=== PATIENT | male | born 1965 | race African-American/Black ===

== ENCOUNTER 2019-06-03 00:10 | Inpatient (IN) | payer OTHER ==
[2019-06-03 00:20] VITALS: BMI 27.2
[2019-06-03] MEDS ORDERED: SODIUM CHLORIDE 1,000 ML IV ONE (00:25)
[2019-06-03] MEDS ORDERED: HYDROmorphone HCL CARPU-JECT 1 MG/1 ML DISP.SYRIN IVPUSH ONE ×2 (00:25→02:45)
[2019-06-03] MEDS ORDERED: FAMOTIDINE 20 MG/50 ML IVPB 20 MG/50 ML MG IVPB ONE ×2 (00:34→00:41)
--- NOTE | 2019-06-03 00:40 | PDOC ---
History of Present Illness - General Chief Complaint: Pain, Acute Stated Complaint: VOMITING,ABDOMINAL PAIN Time Seen by Provider: 06/03/19 00:15 History Source: Patient Exam Limitations: No Limitations - History of Present Illness Initial Comments: 06/03/19 02:59 Is a 53-year-old male who comes in complaining of abdominal pain and vomiting. Patient has a history of gastroparesis secondary to his diabetes. Patient denies any fevers, chills. Patient is complaining of abdominal pain secondary to his gastroparesis and vomiting. 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 Patient denies any fevers or chills. Cough or congestion. Chest pain or shortness of breath. Allergies: as per nursing notes Past Medical History: none Social history: Lives with family. No smoking. No alcohol. No illicit drugs. Surgical history: None General: No fevers or chills, no weakness, no weight loss HEENT: No change in vision. No sore throat,. No ear pain CardioVascular: no chest discomfort. No shortness of breath Respiratory:No cough, or wheezing. Gastrointestinal: no nausea, vomiting, diarrhea or constipation, No rectal bleeding Genitourinary: No dysuria, hematuria, or frequency Musculoskeletal: No joint or muscle pain or swelling Neurologic: No headache, vertigo, dizziness or loss of consciousness Psychiatric: nor depression Skin: No rashes or easy bruising Endocrine: no increased thirst or abnormal weight change Allergic: no skin or latex allergy All other systems reviewed and normal Exam: General: Well-nourished well-developed individual, moderate distress HEENT: Throat: Normal, tonsils normal, no erythema or exudate Neck: Supple, no meningeal signs, no lymphadenopathy Eyes::Pupils equal reactive and round, extraocular motion intact Chest: Nontender to palpation Cardiac: S1-S2 normal, regular rate and rhythm, no murmurs rubs or gallops Respiratory: Lungs clear to auscultation bilateral Abdomen: Soft, nondistended, normal bowel sounds, there is mild tenderness on palpation diffusely Extremities: Warm, dry, no cyanosis, clubbing, or edema Skin: No rashes Neuro: Alert and oriented x3, CN II - XII intact, nonfocal exam with normal strength, normal sensation, normal reflexes, normal gait, Psych: Normal mood and affect Assessment and plan: This is a 53-year-old male who has intractable vomiting secondary to his gastroparesis. Patient is received Zofran and IV fluids as well as Dilaudid and still continues to have vomiting and feel miserable. Will admit patient to an inpatient bed. Past History - Past Medical History Allergies/Adverse Reactions: Allergies Allergy/AdvReac Type Severity Reaction Status Date / Time No Known Allergies Allergy Verified 06/03/19 00:13 Home Medications: Ambulatory Orders NK [No Known Home Medication] 06/03/19 COPD: No GI Disorders: Yes (GASTROPARESIS) - Psycho Social/Smoking Cessation Hx Smoking History: Never smoked Have you smoked in the past 12 months: No Information on smoking cessation initiated: No Hx Alcohol Use: No Drug/Substance Use Hx: No *Physical Exam - Vital Signs Last Vital Signs Temp Pulse Resp BP Pulse Ox 98.9 F 106 H 18 154/102 H 100 06/03/19 00:15 06/03/19 00:15 06/03/19 00:15 06/03/19 00:15 06/03/19 00:15 ED Treatment Course - LABORATORY CBC & Chemistry Diagram: 06/03/19 01:40 06/03/19 01:40 Discharge - Discharge Information Problems reviewed: Yes Clinical Impression/Diagnosis: Intractable vomiting, Diabetic gastroparesis Condition: Stable - Admission Yes - Follow up/Referral - Patient Discharge Instructions - Post Discharge Activity
[2019-06-03] MEDS ORDERED: HYDROmorphone HCL CARPU-JECT 1 MG/1 ML DISP.SYRIN ONE ×2 (00:41→02:42)
[2019-06-03 02:26] LABS: BASO % 0.2 % (0-2.0); EOS % 0.3 % (0-4.5); HEMATOCRIT 30.2 % (35.4-49); HEMOGLOBIN 9.9 GM/dL (11.7-16.9); LYMPH % 16.2 % (8-40); MCH 25.3 pg (25.7-33.7); MCHC 32.7 g/dl (32.0-35.9); MEAN CELL VOLUME 77.2 fl (80-96); MEAN PLT VOLUME 8.4 fl (7.5-11.1); MONO % 12.1 % (3.8-10.2); NEUT % 71.2 % (42.8-82.8); PLATELET COUNT 274 K/MM3 (134-434); RBC 3.91 M/mm3 (4.00-5.60); RDW 15.4 % (11.9-15.9); WHITE BLOOD COUNT 13.1 K/mm3 (4.0-10.0)
[2019-06-03 02:50] LABS: BILIRUBIN,TOTAL 0.6 mg/dL (0.2-1); CALCIUM 8.7 mg/dL (8.5-10.1); CREATININE 1.3 mg/dL (0.55-1.3); POTASSIUM 4.2 mmol/L (3.5-5.1); TOT PROT 7.5 g/dl (6.4-8.2)
[2019-06-03] MEDS ORDERED: ONDANSETRON 4 MG/2 ML VIAL IVPB ONE (03:16)
[2019-06-03] MEDS ORDERED: ONDANSETRON 4 MG/2 ML VIAL ONE (03:17)
[2019-06-03] MEDS ORDERED: ONDANSETRON 4 MG/2 ML VIAL IVPUSH PRN (03:19)
[2019-06-03] MEDS ORDERED: SODIUM CHLORIDE 1,000 ML IV SCH (03:30)
[2019-06-03] MEDS ORDERED: ACETAMINOPHEN 1000 MG/100 ML VIAL (NON FORMULARY) IVPB ONE (05:18)
[2019-06-03] MEDS: HEPARIN NA (PORCINE) 5,000 UNITS/ML 1ML VIAL SQ SCH ×4 (05:52→21:43)
[2019-06-03] MEDS: INSULIN SLIDING SCALE (NOVOLOG) 1 VIAL SQ SCH ×4 (07:00→21:39)
--- NOTE | 2019-06-03 08:14 | HP ---
"CHIEF COMPLAINT: Abdominal pain and vomiting PCP: Current treating physician is Dr. Ana Laura Castro at [facility] HISTORY OF PRESENT ILLNESS: 53 year-old male with a PMH significant for Type II NIDDM, gastroparesis, and osteomyelitis s/p left BKA 01/2019. Patient presented to the ED with a complaint of abdominal pain and vomiting x 24 hours secondary to chronic gastroparesis. His last episode of gastroparesis was around the time of his amputation surgery. Patient denies fever, sweats, chills. He denies pain to his LLE/BKA site. ER course was notable for: (1) WBC 13.1k, afebrile (2) BP 173/91 Recent Travel: No PAST MEDICAL HISTORY: Type II NIDDM Osteomyelitis PAST SURGICAL HISTORY: Left BKA Social History: has a daughter that lives in [place]; patient lives in [place] Smoking: no Alcohol: no Drugs: no Allergies No Known Allergies Allergy (Verified 06/03/19 00:13) Family history: non-contributory HOME MEDICATIONS: Home Medications Medication Instructions Recorded NK [No Known Home Medication] 06/03/19 REVIEW OF SYSTEMS CONSTITUTIONAL: Absent: fever, chills, diaphoresis, generalized weakness, malaise, loss of appetite, weight change HEENT: Absent: rhinorrhea, nasal congestion, throat pain, throat swelling, difficulty swallowing, mouth swelling, ear pain, eye pain, visual changes CARDIOVASCULAR: Absent: chest pain, syncope, palpitations, irregular heart rate, lightheadedness , peripheral edema RESPIRATORY: Absent: cough, shortness of breath, dyspnea with exertion, orthopnea, wheezing, stridor, hemoptysis GASTROINTESTINAL: +abdominal pain, vomiting Absent: abdominal pain, abdominal distension, nausea, vomiting, diarrhea, constipation, melena, hematochezia GENITOURINARY: Absent: dysuria, frequency, urgency, hesitancy, hematuria, flank pain, genital pain MUSCULOSKELETAL: Absent: myalgia, arthralgia, joint swelling, back pain, neck pain SKIN: Absent: rash, itching, pallor HEMATOLOGIC/IMMUNOLOGIC: Absent: easy bleeding, easy bruising, lymphadenopathy, frequent infections ENDOCRINE: Absent: unexplained weight gain, unexplained weight loss, heat intolerance, cold intolerance NEUROLOGIC: Absent: headache, focal weakness or paresthesias, dizziness, unsteady gait, seizure, mental status changes, bladder or bowel incontinence PSYCHIATRIC: Absent: anxiety, depression, suicidal or homicidal ideation, hallucinations. PHYSICAL EXAMINATION Vital Signs - 24 hr 06/03/19 06/03/19 06/03/19 00:15 02:45 04:11 Temperature 98.9 F 97.8 F Pulse Rate 106 H 94 H Pulse Rate [ 90 Right] Respiratory 18 18 Rate Blood Pressure 154/102 H 181/99 H Blood Pressure 176/101 H [Left Arm] O2 Sat by Pulse 100 98 95 Oximetry (%) GENERAL: Awake, alert, and fully oriented. Spitting into emesis basin. HEAD: Normal with no signs of trauma. EYES: Pupils equal, round and reactive to light, extraocular movements intact, sclera anicteric, conjunctiva clear. LUNGS: Breath sounds equal, clear to auscultation bilaterally. No wheezes, and no crackles. No accessory muscle use. HEART: Regular rate and rhythm, normal S1 and S2 ABDOMEN: Would not allow exam UPPER EXTREMITIES: 2+ pulses, warm, well-perfused. No cyanosis. No clubbing. No peripheral edema. LOWER EXTREMITIES: left BKA NEUROLOGICAL: Cranial nerves II-XII intact. Normal speech. Laboratory Results - last 24 hr 06/03/19 06/03/19 06/03/19 01:40 01:40 01:40 WBC 13.1 H RBC 3.91 L Hgb 9.9 L Hct 30.2 L MCV 77.2 L MCH 25.3 L MCHC 32.7 RDW 15.4 Plt Count 274 MPV 8.4 Absolute Neuts (auto) 9.3 H Neutrophils % 71.2 Lymphocytes % 16.2 Monocytes % 12.1 H Eosinophils % 0.3 Basophils % 0.2 Nucleated RBC % 0 Sodium 137 Potassium 4.2 Chloride 104 Carbon Dioxide 23 Anion Gap 10 BUN 22.0 H Creatinine 1.3 Est GFR (CKD-EPI)AfAm 72.20 Est GFR (CKD-EPI)NonAf 62.29 POC Glucometer Random Glucose 186 H Lactic Acid 1.1 Calcium 8.7 Total Bilirubin 0.6 AST 16 ALT 24 Alkaline Phosphatase 157 H Total Protein 7.5 Albumin 3.0 L Lipase 06/03/19 06/03/19 01:40 05:54 WBC RBC Hgb Hct MCV MCH MCHC RDW Plt Count MPV Absolute Neuts (auto) Neutrophils % Lymphocytes % Monocytes % Eosinophils % Basophils % Nucleated RBC % Sodium Potassium Chloride Carbon Dioxide Anion Gap BUN Creatinine Est GFR (CKD-EPI)AfAm Est GFR (CKD-EPI)NonAf POC Glucometer 207 Random Glucose Lactic Acid Calcium Total Bilirubin AST ALT Alkaline Phosphatase Total Protein Albumin Lipase 24 L ASSESSMENT/PLAN: 53 year-old male with a PMH significant for Type II NIDDM, gastroparesis, and osteomyelitis s/p left BKA 01/2019. Admitted for abdominal pain and vomiting. Type II NIDDM Gastroparesis --patient provides incomplete history, reportedly diabetic for 4 years, does not take meds regularly, cannot give the name of any doctor or provider who has regularly treated him for his diabetes --NPO --IV fluids --Novolog sliding scale coverage --Protonix IV --IV Tyelenol for pain --CTAP: no acute abdominal pathology --patient immediately and repeatedly asked for dilaudid IVP as the only thing that helps him when he has episodes of gastroparesis; distressed at being told he will not be receiving dilaudid for his symptoms Urinary retention --CT showed overdistended bladder, 800cc's --US done, post-void residual 450 cc's, prostate 33mL --discussed with patient, he is voiding, has had 3 bowel movements, has no sense of urgency, fullness --outpatient followup Elevated blood pressure --start lisinopril 10mg daily FEN Fluids: NS @ 125mL/hr Electrolytes: replete as indicated Nutrition: full liquid diabetic DVT prophylaxis: subq heparin Dispo: continues to require inpatient care. Full code. ISTOP The Drug Utilization Report below displays all of the controlled substance prescriptions, if any, that your patient has filled in the last twelve months. The information displayed on this report is compiled from pharmacy submissions to the Department, and accurately reflects the information as submitted by the pharmacies. This report was requested by: Michelle Leslie | Reference #: [id number] Others' Prescriptions Patient Name: Daniele Laird Date: 1965 Address: [address] [place] [address] [place] [address] Sex: Male Rx Written Rx Dispensed Drug Quantity Days Supply Prescriber Name 04/16/2019 04/23/2019 clonazepam 0.5 mg tablet 30 30 SaqiJuliana 04/03/2019 04/03/2019 clonazepam 0.5 mg tablet 20 20 Juliana Rivas 03/08/2019 03/12/2019 lorazepam 1 mg tablet 3 3 Massimo Walker MD Patient Name: Daniele Laird Date: 1965 Address: [address] [place] [address] [place] [address] Sex: Male Rx Written Rx Dispensed Drug Quantity Days Supply Prescriber Name 07/09/2018 07/09/2018 hydromorphone 2 mg tablet 30 5 Miah Calixto 07/09/2018 07/09/2018 hydromorphone 4 mg tablet 30 5 Miah Calixto Visit type - Emergency Visit Emergency Visit: Yes ED Registration Date: 06/03/19 Care time: The patient presented to the Emergency Department on the above date and was hospitalized for further evaluation of their emergent condition. - New Patient This patient is new to me today: Yes Date on this admission: 06/04/19 - Critical Care Critical Care patient: No"
[2019-06-03 08:53] LABS: CALCIUM 8.5 mg/dl (8.5-10); CREATININE 1.1 mg/dl (0.55-1.3); MAGNESIUM 1.6 mg/dL (1.8-2.4); POTASSIUM 4.4 mmol/L (3.5-5.1)
[2019-06-03] MEDS ORDERED: MAGNESIUM SULF 50% (8.12 MEQ/2 ML-1 GM VIAL) IVPB ONE (09:39)
--- NOTE | 2019-06-03 09:42 | EKG ---
Test Reason : Blood Pressure : / mmHG Vent. Rate : 090 BPM Atrial Rate : 090 BPM P-R Int : 206 ms QRS Dur : 092 ms QT Int : 360 ms P-R-T Axes : 059 021 067 degrees QTc Int : 440 ms NORMAL SINUS RHYTHM POSSIBLE LEFT ATRIAL ENLARGEMENT BORDERLINE ECG NO PREVIOUS ECGS AVAILABLE Confirmed by Emmett Vallejo MD ([id number]) on 06/03/2019 9:41:51 AM Referred By: STEVEN DURAN Confirmed By:Emmett Vallejo MD
[2019-06-03] MEDS ORDERED: MAGNESIUM SULFATE IN WATER 2 GM/50 ML IVPB IVPB ONE (10:00)
[2019-06-03] MEDS: SODIUM CHLORIDE 1,000 ML IV SCH (11:15)
[2019-06-03] MEDS: ACETAMINOPHEN 1000 MG/100 ML VIAL (NON FORMULARY) IVPB SCH ×2 (11:45→18:11)
[2019-06-03] MEDS: PANTOPRAZOLE SODIUM 40 MG VIAL IVPUSH SCH (12:47)
[2019-06-03] MEDS: LISINOPRIL 10 MG TABLET (FP) PO SCH ×2 (12:47→13:01)
[2019-06-03] MEDS ORDERED: METOPROLOL TARTRATE 5 MG/5 ML VIAL IVPUSH ONE ×2 (13:15→15:00)
[2019-06-03] MEDS ORDERED: SODIUM CHLORIDE 1,000 ML IV STA (14:53)
[2019-06-03 16:35] LABS: BASO % 0.1 % (0-2.0); HEMATOCRIT 26.9 % (35.4-49); LYMPH % 11.9 % (8-40); MCH 26.5 pg (25.7-33.7); MCHC 33.5 g/dl (32.0-35.9); MEAN PLT VOLUME 8.7 fl (7.5-11.1); MONO % 7.9 % (3.8-10.2); NEUT % 80.1 % (42.8-82.8); PLATELET COUNT 221 K/MM3 (134-434); RDW 14.3 % (11.9-15.9); WHITE BLOOD COUNT 11.2 K/mm3 (4.0-10.8)
[2019-06-03 16:45] LABS: CALCIUM 7.9 mg/dl (8.5-10); CREATININE 1.3 mg/dl (0.55-1.3); MAGNESIUM 2.2 mg/dL (1.8-2.4); POTASSIUM 4.1 mmol/L (3.5-5.1)
[2019-06-03] MEDS ORDERED: METOCLOPRAMIDE HCL INJECTION 10 MG/2 ML VIAL IVPUSH ONE (21:59)
[2019-06-03] MEDS ORDERED: HYDROmorphone HCL CARPU-JECT 1 MG/1 ML DISP.SYRIN IVPB ONE (22:10)
[2019-06-04] MEDS: ACETAMINOPHEN 1000 MG/100 ML VIAL (NON FORMULARY) IVPB SCH ×2 (00:04→05:46)
[2019-06-04] MEDS: HEPARIN NA (PORCINE) 5,000 UNITS/ML 1ML VIAL SQ SCH ×2 (06:28→13:40)
[2019-06-04] MEDS: INSULIN SLIDING SCALE (NOVOLOG) 1 VIAL SQ SCH ×2 (07:25→10:38)
[2019-06-04 10:03] VITALS: BP 173/91; PULSE 102; TEMP 98.6
[2019-06-04] MEDS: LISINOPRIL 10 MG TABLET (FP) PO SCH (10:05)
[2019-06-04] MEDS: PANTOPRAZOLE SODIUM 40 MG VIAL IVPUSH SCH (10:05)
[2019-06-04] MEDS: SODIUM CHLORIDE 1,000 ML IV SCH (10:41)
--- NOTE | 2019-06-04 12:35 | DS ---
Physical Exam: SUBJECTIVE: Patient seen and examined. Reviewed all test, imaging, and lab results with the patient in the presence of licensed practical nurse clinic nurse Maribeth Rios. Patient continues to be distressed at not getting dilaudid. He states he wants " dilaudid IV push every 3 hours", "the push is better because I get instantaneous relief." Patient states he is being discriminated against because of his race, he is being treated as a druggie, a step child, a basket case. OBJECTIVE: Vital Signs Period Temp Pulse Resp BP Sys/Christianson Pulse Ox Last 24 Hr 97.8 F-98.6 F 74-102 17-18 109-182/60-100 94-99 PHYSICAL EXAM GENERAL: The patient is awake, alert, and fully oriented. LUNGS: Breath sounds equal, clear to auscultation bilaterally, no wheezes, no crackles, no accessory muscle use. HEART: Regular rate and rhythm, S1, S2 . EXTREMITIES: left BKA NEUROLOGICAL: Cranial nerves II through XII grossly intact. Normal speech, Laboratory Results - last 24 hr 06/03/19 06/03/19 06/03/19 15:05 15:05 15:05 WBC 11.2 H RBC 3.40 L Hgb 9.0 L Hct 26.9 L MCV 79.0 L MCH 26.5 MCHC 33.5 RDW 14.3 Plt Count 221 MPV 8.7 Absolute Neuts (auto) 9.0 Neutrophils % 80.1 Lymphocytes % 11.9 Monocytes % 7.9 Eosinophils % 0.0 Basophils % 0.1 Sodium 133 L Potassium 4.1 Chloride 103 Carbon Dioxide 24 Anion Gap 6 L BUN 24.0 H Creatinine 1.3 Est GFR (CKD-EPI)AfAm 72.20 Est GFR (CKD-EPI)NonAf 62.29 POC Glucometer Random Glucose 193 H Lactic Acid 1.0 Calcium 7.9 L Magnesium 2.2 06/03/19 06/04/19 21:09 06:14 WBC RBC Hgb Hct MCV MCH MCHC RDW Plt Count MPV Absolute Neuts (auto) Neutrophils % Lymphocytes % Monocytes % Eosinophils % Basophils % Sodium Potassium Chloride Carbon Dioxide Anion Gap BUN Creatinine Est GFR (CKD-EPI)AfAm Est GFR (CKD-EPI)NonAf POC Glucometer 161 130 Random Glucose Lactic Acid Calcium Magnesium HOSPITAL COURSE: Date of Admission:06/03/19 Date of Discharge: 06/04/19 Pre hospital course 53 year-old male with a PMH significant for Type II NIDDM, gastroparesis, and osteomyelitis s/p left BKA 01/2019. Patient presented to the ED with a complaint of abdominal pain and vomiting x 24 hours secondary to chronic gastroparesis. His last episode of gastroparesis was around the time of his amputation surgery. ER course (1) WBC 13.1k, afebrile (2) BP 173/91 Subsequent hospital course 53 year-old male with a PMH significant for Type II NIDDM, gastroparesis, and osteomyelitis s/p left BKA 01/2019. Admitted for abdominal pain and vomiting. Type II NIDDM Gastroparesis --patient provided incomplete history, reportedly diabetic for 4 years, does not take meds regularly, cannot give the name of any doctor or provider who has regularly treated him for his diabetes --patient was observed clenching his abdominal muscles and spitting into basins, no actual vomiting observed; he remained afebrile, his mild leukocytosis trended down --CTAP: no acute abdominal pathology --patient was kept NPO, given IV fluids, Zofran PRN, and IV Tylenol PRN; he was ordered a liquid diabetic diet on his first night and he refused to eat; he refused to take all PO meds --Novolog sliding scale coverage ordered, patient refused on those occasions when coverage was indicated --througout hospital stay patient repeatedly demanded dilaudid IVP as the only thing that helps him when he has episodes of gastroparesis; distressed at being told he will not be receiving dilaudid Urinary retention --CT showed overdistended bladder, 800cc's --US done, post-void residual 450 cc's, prostate 33mL --voiding freely, no sense of urgency, fullness --outpatient followup Elevated blood pressure --ordered lisinopril 10mg daily, patient refused Minutes to complete discharge: 35 Discharge Summary Problems reviewed: Yes Reason For Visit: INTRACTABLE VOMITING, DIABETIC GASTROPARESIS Current Active Problems Diabetic gastroparesis (Acute) Intractable vomiting (Acute) Condition: Stable - Instructions Referrals: Ana Laura Castro Dr. [Other] Disposition: HOME - Home Medications Comprehensive Discharge Medication List: Ambulatory Orders NK [No Known Home Medication] 06/03/19 This patient is new to me today: No Emergency Visit: Yes ED Registration Date: 06/03/19 Care time: The patient presented to the Emergency Department on the above date and was hospitalized for further evaluation of their emergent condition. Critical Care patient: No - Discharge Referral Referred to [facility] No
== END 2019-06-04 15:54 | disposition home or self-care (01) | DRG 74 ==
LOC: FER 00:10 → FM/S 03:16
PROVIDERS: ADMIT Internal Medicine; ATTEND Nurse Practitioner Acute Care
DX: E11.43 Type 2 diabetes mellitus with diabetic autonomic (poly)neuropathy (principal); R33.9 Retention of urine, unspecified; D72.829 Elevated white blood cell count, unspecified; I10 Essential (primary) hypertension; K31.84 Gastroparesis; R11.10 Vomiting, unspecified
CPT/HCPCS: 36415; 71045-TC-FY; 74019-TC-FY; 74177-TC; 76775-TC; 76856-TC; 80048; 80053; 82962; 83605; 83690; 83735; 85025; 93005; 99285-25; J0131; J1644; J7030; Q9967

== ENCOUNTER 2019-11-06 11:44 | Inpatient (IN) | payer MEDICARE, OTHER ==
[2019-11-06 11:56] VITALS: BMI 26.2
--- NOTE | 2019-11-06 13:37 | PDOC ---
History of Present Illness - General Chief Complaint: Pain, Acute Stated Complaint: LEG PAIN/VOMITING - History of Present Illness Initial Comments: Pt is a 54yo M with a PMH of NIDDM, gastroparesis, s/p R BKA, who presents with diffuse pain and vomiting. States that pain and vomiting began yesterday. States that today he has had 6 episodes of bloody, nonbilious forceful vomiting. Has not had anything to eat or drink since yesterday when he drank [employer] aloe vera water and threw that back up. Reports diffuse pain that is similar, but sharper than the pain from previous ER visits. Reports that he is usually given reglan and dilaudid for these symptoms. Reports increased weakness and abdominal pain. Reports normal bowel movements. Denies any fevers/chills, chest pain, sore throat, rhinorrhea, cough, SOB, diarrhea/constipation, dysuria. Denies sick contacts, recent travel. PCP: Chan/Román PMH: see above PSHx: see above Meds: metformin, reglan All: NKDA social: denies tobacco use, etoh use, illicit drug use Past History - Medical History Allergies/Adverse Reactions: Allergies Allergy/AdvReac Type Severity Reaction Status Date / Time No Known Allergies Allergy Verified 11/06/19 11:52 Home Medications: Ambulatory Orders Metformin HCl [Glucophage] 500 mg PO BID 07/02/19 Metoclopramide HCl [Reglan] 10 mg PO ASDIR 07/02/19 COPD: No Diabetes: Yes GI Disorders: Yes (GASTROPARESIS) Other medical history: "osteomyelitis" - Psycho-Social/Smoking History Smoking History: Unknown if ever smoked Have you smoked in the past 12 months: No Review of Systems - Review of Systems Comments:: CONSTITUTIONAL:reports generalized weakness; denies fever, chills, diaphoresis HEENT:denies rhinorrhea, nasal congestion, sore throat, ear pain, eye pain, visual Changes CARDIOVASCULAR:denies chest pain, palpitations, lightheadedness RESPIRATORY:denies cough, shortness of breath, wheezing GASTROINTESTINAL: reports abdominal pain, nausea, vomiting; denies diarrhea, constipation, melena, hematochezia GENITOURINARY:denies dysuria, frequency, urgency, hesitancy, hematuria, flank pain, MUSCULOSKELETAL:reports diffuse pain HEMATOLOGIC/IMMUNOLOGIC:denies easy bleeding, easy bruising ENDOCRINE: denies unexplained weight gain, unexplained weight loss NEUROLOGIC:denies headache, loss of consciousness, focal weakness or paresthesias, dizziness, bladder or bowel incontinence *Physical Exam - Vital Signs Last Vital Signs Temp Pulse Resp BP Pulse Ox 99.4 F 109 H 20 182/106 H 100 11/06/19 11:53 11/06/19 11:53 11/06/19 11:53 11/06/19 11:53 11/06/19 11:53 - Physical Exam General: awake, alert, oriented, in no acute distress, well developed, well nourished Head: normocephalic, atraumatic Eyes: PERRL, EOMI, anicteric sclera, conjunctiva clear ENT: hearing grossly normal, oropharynx clear without exudates. No nasal congestion Moist mucous membranes Lung: equal breath sounds b/l, CTA b/l, no crackles, wheezes; no distress, speaks full sentences Heart: RRR, normal S1, S2, no murmurs, rubs, gallops Abdomen: soft, tender to palpation in all quadrants, normoactive bowel sounds, no guarding, rebound, masses Extremities: R BKA, no edema, no erythema or tenderness, DP/PT pulses 2+ Neuro: CN2-12 grossly intact, moves all extremities, normal speech, sensation intact ED Treatment Course - LABORATORY CBC & Chemistry Diagram: 11/06/19 13:50 11/06/19 13:50 Medical Decision Making - Medical Decision Making Pt is a 54yo M with a PMH DM, gastroparesis, R BKA who presents with diffuse pain and nausea/vomiting. Vital Signs Period Temp Pulse Resp BP Sys/Christianson Pulse Ox Last 24 Hr 99.4 F 109 20 182/106 100 DDx: Plan: labs, IV fluids, pain control Pt is repeatedly requesting IV stick, Reglan, and Dilaudid Ordered Reglan, Ofirmev, IV fluids Labs: leukocytosis, anemia, LIZA, hyperchloremia, lactic acidosis Laboratory Tests 11/06/19 11/06/19 11/06/19 13:50 13:50 13:50 WBC 10.4 H RBC 3.76 L Hgb 9.2 L Hct 28.8 L MCV 76.4 L MCH 24.5 L MCHC 32.1 RDW 19.0 H Plt Count 342 D MPV 8.5 Absolute Neuts (auto) 8.1 H Neutrophils % 78.2 Lymphocytes % 13.8 Monocytes % 6.4 Eosinophils % 1.2 D Basophils % 0.4 Nucleated RBC % 0 PT with INR 12.10 INR 1.03 PTT (Actin FS) 34.6 Sodium 139 Potassium 4.9 Chloride 108 H Carbon Dioxide 22 Anion Gap 9 BUN 14.0 Creatinine 1.7 H Est GFR (CKD-EPI)AfAm 51.84 Est GFR (CKD-EPI)NonAf 44.72 Random Glucose 152 H Lactic Acid Calcium 9.2 Magnesium 2.0 Total Bilirubin 0.5 AST 32 ALT 24 Alkaline Phosphatase 134 H Total Protein 7.8 Albumin 3.2 L 11/06/19 14:15 WBC RBC Hgb Hct MCV MCH MCHC RDW Plt Count MPV Absolute Neuts (auto) Neutrophils % Lymphocytes % Monocytes % Eosinophils % Basophils % Nucleated RBC % PT with INR INR PTT (Actin FS) Sodium Potassium Chloride Carbon Dioxide Anion Gap BUN Creatinine Est GFR (CKD-EPI)AfAm Est GFR (CKD-EPI)NonAf Random Glucose Lactic Acid 2.4 H* Calcium Magnesium Total Bilirubin AST ALT Alkaline Phosphatase Total Protein Albumin Pt told attending that he sees Dr. Shanon Haines. I called and spoke with Dr. Barahona who has known him for 9 years who states that he has frequent pain episodes, which were originally attributed to gastroparesis, but she mentioned that his A1C has been within normal values. She is attempting to work him up for porphyria, however, testing must be done when patient is in pain, for which he goes to emergency rooms instead of to her outpatient clinic. She has been unable to collect those labs due to this. Requested that we order serum/urine PBG or porphyrin. Pt continues to be in intractable pain and nausea. Has repeated episodes brownish emesis. Disposition Admit Discharge - Discharge Information Problems reviewed: Yes Clinical Impression/Diagnosis: Intractable vomiting Qualifiers: Vomiting type: unspecified Nausea presence: with nausea Qualified Code(s): R11.2 - Nausea with vomiting, unspecified - Admission Yes - Follow up/Referral - Patient Discharge Instructions - Post Discharge Activity
[2019-11-06] MEDS ORDERED: ACETAMINOPHEN 1000 MG/100 ML VIAL (NON FORMULARY) IVPB ONE (13:49)
[2019-11-06] MEDS ORDERED: SODIUM CHLORIDE 0.9% 500 ML INFUS.BAG IV ONE ×2 (13:51→15:19)
[2019-11-06] MEDS ORDERED: METOCLOPRAMIDE HCL INJECTION 10 MG/2 ML VIAL IVPUSH ONE (13:51)
[2019-11-06] MEDS ORDERED: METOCLOPRAMIDE HCL INJECTION 10 MG/2 ML VIAL ONE ×2 (13:58→18:59)
[2019-11-06] MEDS ORDERED: ACETAMINOPHEN INJECTION 100 ML IVPB ONE (13:59)
[2019-11-06 14:16] LABS: BASO % 0.4 % (0-2.0); EOS % 1.2 % (0-4.5); HEMATOCRIT 28.8 % (35.4-49); HEMOGLOBIN 9.2 GM/dL (11.7-16.9); LYMPH % 13.8 % (8-40); MCH 24.5 pg (25.7-33.7); MCHC 32.1 g/dl (32.0-35.9); MEAN CELL VOLUME 76.4 fl (80-96); MEAN PLT VOLUME 8.5 fl (7.5-11.1); MONO % 6.4 % (3.8-10.2); NEUT % 78.2 % (42.8-82.8); PLATELET COUNT 342 K/MM3 (134-434); RBC 3.76 M/mm3 (4.00-5.60); WHITE BLOOD COUNT 10.4 K/mm3 (4.0-10.0)
[2019-11-06 14:27] LABS: INR 1.03 (0.83-1.09); PROTHROMBIN TIME (PATIENT) 12.1 SEC (9.7-13.0)
[2019-11-06 14:29] LABS: ACTIVATED PTT 34.6 SECONDS (25.2-36.5)
[2019-11-06 14:43] LABS: ALBUMIN 3.2 g/dl (3.4-5.0); BILIRUBIN,TOTAL 0.5 mg/dL (0.2-1); CALCIUM 9.2 mg/dL (8.5-10.1); CREATININE 1.7 mg/dL (0.55-1.3); POTASSIUM 4.9 mmol/L (3.5-5.1); TOT PROT 7.8 g/dl (6.4-8.2)
[2019-11-06] MEDS ORDERED: HYDROmorphone HCL CARPU-JECT 2 MG/1 ML DISP.SYRIN IVPB ONE (15:07)
[2019-11-06] MEDS ORDERED: HYDROmorphone HCl 2 MG/ML VIAL ONE ×2 (15:14→18:39)
--- NOTE | 2019-11-06 16:43 | PN ---
Teaching Attending Note Name of Resident: Adam Carpenter ATTENDING PHYSICIAN STATEMENT I saw and evaluated the patient. I reviewed the resident's note and discussed the case with the resident. I agree with the resident's findings and plan as documented. HPI 54-year-old male with past medical history of odo-scxuedu-giifibbwa diabetes mellitus diabetes, gastroparesis, status post right BKA, peripheral vascular disease, presents with diffuse pain and vomiting. Patient reports symptoms began yesterday and overnight had 6 episodes of vomiting which included some blood. Patient has been unable to eat or drink anything since last night. Patient also reports that he has left lower extremity pain from "osteomyelitis" but is uncertain as to where he has osteomyelitis and is not currently being treated with IV antibiotics. Patient denies fevers, chills, chest pain, cough, shortness of breath, diarrhea. In the ED, vitals significant for temperature of 99.4, pulse 109, blood pressure 182/106. Labs significant for white count of 10.4 with 78% neutrophils microcytic anemia hemoglobin 9.2, creatinine 1.7, lactic acid 2.4. Patient admitted to medicine at the time of my exam patient is very fatigued and cannot give much history. Left foot is swollen and tender. Patient admitted to medicine for intractable nausea vomiting, LIZA OBJECTIVE Last Vital Signs Temp Pulse Resp BP Pulse Ox 98.5 F 103 H 22 H 190/98 H 98 11/06/19 16:39 11/06/19 16:39 11/06/19 16:39 11/06/19 16:39 11/06/19 16:39 PE: per resident note Labs/Imaging: reviewed ASSESSMENT AND PLAN 54-year-old male with past medical history of [id number] diabetes mellitus diabetes, gastroparesis, status post right BKA, peripheral vascular disease, presents with diffuse pain and vomiting.Patient admitted to medicine for intractable nausea vomiting, LIZA #Gastroparesis/pain Unclear as to whether the patient's pain is directly related to the gastroparesis or is chronic in nature. Reports it as "all over" and diffuse Fluids GI consult Reglan 10mg TIDAC zofran prn severe nausea Offirmev and dilaudid -check cpk #LIZA Likely prerenal in the setting of nausea vomiting Fluids Hold nephrotoxic medications Recheck creatinine #Elevated lactic acid Likely in the setting of dehydration and nausea vomiting Fluids Repeat lactic acid #Diabetes Hold home metformin Check A1c Insulin sliding scale #Hypertensive urgency Likely exacerbated in the setting of pain pt denies hx of hypertension labetalol 20mg ordered Pain control
[2019-11-06] MEDS ORDERED: HYDROmorphone HCl 2 MG/ML VIAL IVPUSH PRN (17:41)
[2019-11-06] MEDS ORDERED: SODIUM CHLORIDE 1,000 ML IV SCH ×2 (17:45→22:30)
[2019-11-06] MEDS ORDERED: ACETAMINOPHEN 1000 MG/100 ML VIAL (NON FORMULARY) IVPB PRN (17:46)
--- NOTE | 2019-11-06 17:47 | PDOC ---
Documentation entered by Jesse Brewer SCRIBE, acting as scribe for Rocky Baltazar MD. Rocky Baltazar MD: This documentation has been prepared by the scribe, Jesse Brewer SCRIBE, under my direction and personally reviewed by me in its entirety. I confirm that the documentation accurately reflects all work, treatment, procedures, and medical decision making performed by me. Attending Attestation - Resident Resident Name: YañezLaila - ED Attending Attestation I have performed the following: I have examined & evaluated the patient, The case was reviewed & discussed with the resident, I agree w/resident's findings & plan, Exceptions are as noted - HPI HPI: 11/06/19 13:26 The patient is a 54 year old male with a significant past medical history of IDDM, gastroparesis, osteomyelitis s/p right BKA (01/2019) who presents to the ED with diffuse pain including body aches, leg pain, abd pain, and vomiting that began today. The patient reports drinking a new [employer] aloe vera juice prior to his first episode of vomiting. He notes six episodes of emesis today with a occasional presence of streaked blood. The patient also endorses weakness and diaphoresis, The patient denies shortness of breath, fever, chills and/or any other GI symptoms. Denies any symptoms. Denies any other symptoms. Allergies: NKDA PCP: Dr Dc - Physicial Exam PE: 11/06/19 12:57 GENERAL: The patient is awake, alert, and fully oriented, Nontoxic - in no acute distress. HEAD: Normocephalic, atraumatic. EYES: extraocular movements intact, sclera anicteric, conjunctiva clear. ENT: Normal voice, Moist mucous membranes. NECK: Normal range of motion, supple without lymphadenopathy, JVD, or masses. LUNGS: Breath sounds equal, clear to auscultation bilaterally. No wheezes, no crackles, no rales. HEART: Regular rate and rhythm, normal S1 and S2 without murmur, rub or gallop. ABDOMEN: Soft, nontender, normoactive bowel sounds. No guarding, no rebound. No masses. EXTREMITIES: Normal range of motion, no edema, sp aKA LR leg, non erythemadous/nontender wound on plantar surface of L leg NEUROLOGICAL: No facial asymmetry, Normal speech, normal gait. PSYCH: Normal mood, normal affect. SKIN: Warm, Dry, normal turgor, - Medical Decision Making 11/06/19 14:57 likely gastropresis will treat his sypmoms will ck lab to ro metabolic dernagment, pancreatitis abd soft nontender ekg/trops o screen for acs For Dilaudid to "help him sleep", That that is not how use dilaudid. Then he states he needs it for his pain, when asked about his pain patient states that his legs hurt - He has osteomyelitis so he needs it. When futher prompted and clarified and asked whether he is on antibiotics, he state it was in the past tht he has dilaudid and that he may need an amuptuation of his L foot. Denies any recent truama -on exam, there is No acute trauma or njiury or left leg. Thre is a chronic non infected apearing wound on hte plantar surface of his L foot. no focal tenderness. his abdomen is soft notender, no rebound/guarding. when notified that dialudid will not help his vomiting from gastroparesis, he notes that his doctor dr. schneider think it may be something else and to please call her to find out more. will call dr. schneider. 11/06/19 15:[address] bonner - states she has known him for 9 years - has these occsa ional pain episodes that is still pending workup, he papars to only go to the ED when he has thesse sympmtoms, so never had his poprhyria workup. will give him the dilaudid anticipate admissino for further eval Discharge - Discharge Information Problems reviewed: Yes Clinical Impression/Diagnosis: Intractable vomiting Qualifiers: Vomiting type: unspecified Nausea presence: with nausea Qualified Code(s): R11.2 - Nausea with vomiting, unspecified Abdominal pain Qualifiers: Abdominal location: unspecified location Qualified Code(s): R10.9 - Unspecified abdominal pain Condition: Stable - Follow up/Referral - Patient Discharge Instructions - Post Discharge Activity
--- NOTE | 2019-11-06 18:09 | HP ---
CHIEF COMPLAINT: Severe diffuse abdominal pain radiating to the left leg with nausea and 6 episodes of vomiting with slight blood PCP: Dr. Shanon Haines HISTORY OF PRESENT ILLNESS: 54 year old male patient with past medical history of gastroparesis, IDDM, Osteomyelitis, Right-side [id number] Amputation on 01/2019, who presented to the emergency room with severe abdominal pain, nausea, and 6 episodes of vomiting with slight blood in the vomit. The patient explains that these symptoms have been ongoing for about a year, but that today they were the most severe, so he came to the emergency room. This morning, the symptoms began after he drank some Aloe Vera juice. The patient began feeling nausea and some abdominal pain. Over the course of the day, the symptoms gradually became worse, with severe 9/10 diffuse abdominal pain radiating to the left leg, nausea with 6 episodes of vomiting with slight blood, body aches, fever/chills, weakness in his whole body, and feeling sweaty. The patient denies any diarrhea, constipation, rashes, or cough. The patient reports that he had an EGD done a month ago for his gastroparesis, and was told that the EGD showed no abnormalities. The patient denies ever having a colonoscopy. The patient's doctor for his gastroparesis is Dr. Aileen Giles. The patient follows up with [facility] for his osteomyelitis. He has a wound on the plantar surface of his left foot that was "cleaned" per the patient 3 weeks ago. ER course was notable for: (1) IV Fluids, Dilaudid, IV Tylenol, Reglan (2) (3) Recent Travel: PAST MEDICAL HISTORY: Gastroparesis, IDDM, Osteomyelitis PAST SURGICAL HISTORY: Right-side [id number] Amputation on 01/2019 Social History: Smoking: Denies (asked on 11/06/19) Alcohol: Denies (asked on 11/06/19) Drugs: Denies (asked on 11/06/19) Allergies No Known Allergies Allergy (Verified 11/06/19 11:52) HOME MEDICATIONS: Home Medications Medication Instructions Recorded Metformin HCl [Glucophage] 500 mg PO BID 07/02/19 Metoclopramide HCl [Reglan] 10 mg PO ASDIR 07/02/19 REVIEW OF SYSTEMS CONSTITUTIONAL: chills, diaphoresis, generalized weakness, body aches RESPIRATORY: Absent: cough GASTROINTESTINAL: 9/10 diffuse abdominal pain, nausea, vomiting x 6 with slight blood Absent: diarrhea, constipation SKIN: Absent: rash PHYSICAL EXAMINATION Vital Signs - 24 hr 11/06/19 11/06/19 11/06/19 11:53 16:39 17:05 Temperature 99.4 F 98.5 F Pulse Rate 109 H Pulse Rate [ 103 H Radial] Respiratory 20 22 H Rate Blood Pressure 182/106 H Blood Pressure 190/98 H [Right Arm] O2 Sat by Pulse 100 98 97 Oximetry (%) GENERAL: Awake, alert, and fully oriented, appearing fatigued and retching with no vomiting when the bed is moved too suddenly. HEAD: Normal with no signs of trauma. EYES: Extraocular movements intact. No lid lag. EARS, NOSE, THROAT: Ears normal, nares patent, oropharynx clear without exudates. NECK: Normal range of motion, supple without lymphadenopathy, JVD, or masses. LUNGS: Breath sounds equal, clear to auscultation bilaterally. No wheezes, and no crackles. No accessory muscle use. HEART: Tachycardia. Regular rhythm, normal S1 and S2 without murmur, rub or gallop. ABDOMEN: Soft, mild diffuse tenderness in all quadrants, not distended, normoactive bowel sounds, no guarding, no rebound, no masses. MUSCULOSKELETAL: Normal range of motion at all joints. No bony deformities or tenderness. UPPER EXTREMITIES: 2+ pulses, warm, well-perfused. No cyanosis. No clubbing. No peripheral edema. LOWER EXTREMITIES: 2+ pulses, warm, well-perfused. No peripheral edema. Right [id number] amputation. Left foot has a bandaged wound on the plantar aspect of the foot. NEUROLOGICAL: Normal speech. Normal gait. PSYCHIATRIC: Cooperative. Good eye contact. Appropriate mood and affect. SKIN: Warm, dry, normal turgor, no rashes or lesions noted. Left foot has a wound on the plantar aspect that is bandaged. Laboratory Results - last 24 hr 11/06/19 11/06/19 11/06/19 13:50 13:50 13:50 WBC 10.4 H RBC 3.76 L Hgb 9.2 L Hct 28.8 L MCV 76.4 L MCH 24.5 L MCHC 32.1 RDW 19.0 H Plt Count 342 D MPV 8.5 Absolute Neuts (auto) 8.1 H Neutrophils % 78.2 Lymphocytes % 13.8 Monocytes % 6.4 Eosinophils % 1.2 D Basophils % 0.4 Nucleated RBC % 0 PT with INR 12.10 INR 1.03 PTT (Actin FS) 34.6 Sodium 139 Potassium 4.9 Chloride 108 H Carbon Dioxide 22 Anion Gap 9 BUN 14.0 Creatinine 1.7 H Est GFR (CKD-EPI)AfAm 51.84 Est GFR (CKD-EPI)NonAf 44.72 Random Glucose 152 H Lactic Acid Calcium 9.2 Magnesium 2.0 Total Bilirubin 0.5 AST 32 ALT 24 Alkaline Phosphatase 134 H Total Protein 7.8 Albumin 3.2 L 11/06/19 14:15 WBC RBC Hgb Hct MCV MCH MCHC RDW Plt Count MPV Absolute Neuts (auto) Neutrophils % Lymphocytes % Monocytes % Eosinophils % Basophils % Nucleated RBC % PT with INR INR PTT (Actin FS) Sodium Potassium Chloride Carbon Dioxide Anion Gap BUN Creatinine Est GFR (CKD-EPI)AfAm Est GFR (CKD-EPI)NonAf Random Glucose Lactic Acid 2.4 H* Calcium Magnesium Total Bilirubin AST ALT Alkaline Phosphatase Total Protein Albumin ASSESSMENT/PLAN: 54 year old male patient with past medical history of gastroparesis, IDDM, Osteomyelitis, Right-side [id number] Amputation on 01/2019, who presented to the emergency room with severe abdominal pain, nausea, and 6 episodes of vomiting with slight blood in the vomit. 1. Intractable Nausea/Vomiting likely secondary to Gastroparesis - Reglan 10mg IV Q6H 30minutes before meals - Zofran PRN after doing an ECG to check the QTc - IV Fluids 2. Severe Diffuse Abdominal Pain possibly secondary to gastroparesis - Dilaudid 0.5 mg Q6H PRN for severe pain - IV Tylenol - Will defer imaging if symptoms worsen; could get then a CT scan - GI consult for gastroparesis 3. Hypertensive Urgency - Blood pressure of 182/106 in the ED - Labetalol 20mg IVPUSH - Monitoring blood pressure 4. LIZA likely secondary to dehydration secondary to vomiting - Creatinine of 1.7 - Baseline Creatinine 1.1 - IV Fluids - Monitoring Electrolytes 5. Microcytic Anemia likely secondary to Iron Deficiency - Hgb 9.2, MCV 76, RDW 19% - Iron study - Reticulocyte count - Ferritin - FOBT 6. Lactic Acidemia likely secondary to dehydration secondary to vomiting and home Metformin use - Lactic Acid 2.4 - IV Fluids 7. IDDM - Novolog Sliding Scale - A1C # FEN - Normal Saline @ 100mls/hr - Monitoring Electrolytes - NPO DVT PPx - Heparin SQ Family Medical History Family Hx Cancer: Mother (Patient does not remember what kind of cancer) Visit type - Emergency Visit Emergency Visit: Yes ED Registration Date: 11/06/19 Care time: The patient presented to the Emergency Department on the above date and was hospitalized for further evaluation of their emergent condition. - New Patient This patient is new to me today: Yes Date on this admission: 11/06/19 - Critical Care Critical Care patient: No ATTENDING PHYSICIAN STATEMENT I saw and evaluated the patient. I reviewed the resident's note and discussed the case with the resident. I agree with the resident's findings and plan as documented. SUBJECTIVE: OBJECTIVE: ASSESSMENT AND PLAN:
[2019-11-06] MEDS ORDERED: LABETALOL HCL 5 MG/1 ML (100MG/20 ML VIAL) IVPUSH ONE (18:52)
[2019-11-06] MEDS: METOCLOPRAMIDE HCL INJECTION 10 MG/2 ML VIAL IVPUSH SCH (19:04)
[2019-11-06] MEDS ORDERED: LABETALOL HCL 5 MG/1 ML (200MG/40ML VIAL) IVPB ONE (19:18)
[2019-11-06] MEDS: HEPARIN NA (PORCINE) 5,000 UNITS/ML 1ML VIAL SQ SCH (21:58)
[2019-11-06] MEDS: amLODIPine BESYLATE 5 MG TABLET (FP) PO ONE (22:00)
[2019-11-06] MEDS: INSULIN SLIDING SCALE (NOVOLOG) 1 VIAL SQ SCH (22:00)
[2019-11-06] MEDS ORDERED: HYDROmorphone HCl 2 MG/ML VIAL IVPB PRN (22:27)
[2019-11-06] MEDS ORDERED: ONDANSETRON 4 MG/2 ML VIAL IVPUSH ONE (23:25)
[2019-11-07] MEDS: amLODIPine BESYLATE 5 MG TABLET (FP) PO ONE (00:48)
[2019-11-07] MEDS ORDERED: PANTOPRAZOLE SODIUM 40 MG VIAL IVPUSH ONE (00:56)
[2019-11-07] MEDS ORDERED: HYDROmorphone HCl 2 MG/ML VIAL IVPB ONE (01:05)
[2019-11-07] MEDS ORDERED: NIFEdipine 10 MG CAPSULE (FP) PO ONE (02:51)
[2019-11-07] MEDS ORDERED: cloNIDine HCL 0.1 MG TABLET PO ONE (02:57)
[2019-11-07] MEDS ORDERED: amLODIPine BESYLATE 5 MG TABLET (FP) PO ONE (03:27)
[2019-11-07] MEDS ORDERED: cloNIDine HCL 0.1 MG TABLET PO PRN (03:30)
[2019-11-07 05:24] LABS: EPI CELLS 26 /uL (0-25.1); HYALINE CASTS 4 /uL (0-3.1); PH,URINE 7.5 (5.0-8.0); URINE APPEARANCE CLEAR; URINE BACTERIA 4816 /uL (0-1359); URINE BILIRUBIN NEGATIVE (NEGATIVE); URINE COLOR YELLOW; URINE GLUCOSE (UA) TRACE (NEGATIVE); URINE KETONE NEGATIVE (NEGATIVE); URINE LEUK ESTERASE NEGATIVE (NEGATIVE); URINE NITRITE NEGATIVE (NEGATIVE); URINE PROTEIN 3+ (NEGATIVE); URINE RBC 20 /uL (0-23.9); URINE UROBILINOGEN 0.2 mg/dL (0.2-1.0); URINE WBC 47 /uL (0-25.8)
[2019-11-07] MEDS ORDERED: NIFEdipine E.R. 90 MG TABLET PO ONE (05:45)
[2019-11-07] MEDS ORDERED: ONDANSETRON 4 MG/2 ML VIAL IVPUSH PRN ×2 (06:00→07:42)
[2019-11-07] MEDS: METOCLOPRAMIDE HCL INJECTION 10 MG/2 ML VIAL IVPUSH SCH ×3 (06:30→17:09)
[2019-11-07] MEDS: INSULIN SLIDING SCALE (NOVOLOG) 1 VIAL SQ SCH ×4 (06:33→22:08)
[2019-11-07] MEDS: HEPARIN NA (PORCINE) 5,000 UNITS/ML 1ML VIAL SQ SCH ×3 (06:33→22:08)
[2019-11-07] MEDS ORDERED: SODIUM CHLORIDE 1,000 ML IV SCH (07:42)
[2019-11-07] MEDS ORDERED: ACETAMINOPHEN 1000 MG/100 ML VIAL (NON FORMULARY) IVPB PRN (07:42)
[2019-11-07 08:37] LABS: HEMATOCRIT 27.5 % (35.4-49); HEMOGLOBIN 8.7 GM/dL (11.7-16.9); MCH 24.3 pg (25.7-33.7); MCHC 31.7 g/dl (32.0-35.9); MEAN CELL VOLUME 76.6 fl (80-96); MEAN PLT VOLUME 8.7 fl (7.5-11.1); PLATELET COUNT 314 K/MM3 (134-434); RBC 3.59 M/mm3 (4.00-5.60); RDW 19.4 % (11.9-15.9)
--- NOTE | 2019-11-07 09:04 | PN ---
Progress Note, Physician - Current Medication List Current Medications: Active Medications Acetaminophen (Ofirmev Injection -) 1,000 mg IVPB Q6H PRN PRN Reason: PAIN LEVEL 4-6 Stop: 11/07/19 17:47 Heparin Sodium (Porcine) (Heparin -) 5,000 unit SQ TID LUCY Hydromorphone HCl (Dilaudid Vial -) 0.5 mg IVPB Q6H PRN PRN Reason: PAIN LEVEL 7 - 10 Insulin Aspart (Novolog Vial Sliding Scale -) 1 vial SQ ACHS [facility]; Protocol Metoclopramide HCl (Reglan Injection -) 10 mg IVPUSH TIDAC LUCY Ondansetron HCl (Zofran Injection) 4 mg IVPUSH Q6H PRN PRN Reason: NAUSEA - Objective Vital Signs: Vital Signs Temperature 98.4 F 11/07/19 05:28 Pulse Rate 93 H 11/07/19 08:00 Respiratory Rate 20 11/07/19 08:00 Blood Pressure 184/107 H 11/07/19 08:00 O2 Sat by Pulse Oximetry (%) 100 11/07/19 08:00 Cardiovascular: Yes: S1, S2 Respiratory: Yes: Regular, CTA Bilaterally Gastrointestinal: Yes: Normal Bowel Sounds, Soft. No: Tenderness Extremities: Yes: Amputation Edema: No Labs: CBC, BMP 11/07/19 07:40 INR, PTT INR 1.03 (0.83-1.09) 11/06/19 13:50 Problem List - Problems (1) HTN (hypertension) Assessment/Plan: START NORVASC AND LABETOLOL MONITOR BP CARDIO AND RENAL Code(s): I10 - ESSENTIAL (PRIMARY) HYPERTENSION (2) Intractable vomiting Assessment/Plan: REGLAN GI Code(s): R11.10 - VOMITING, UNSPECIFIED Qualifiers: Vomiting type: unspecified Nausea presence: with nausea Qualified Code(s): R11.2 - Nausea with vomiting, unspecified (3) Diabetic gastroparesis Assessment/Plan: PER GI Code(s): 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 (4) Diabetes Assessment/Plan: BGM Code(s): E11.9 - TYPE 2 DIABETES MELLITUS WITHOUT COMPLICATIONS
[2019-11-07] MEDS ORDERED: DEXTROSE 5%-1/3 NS - 500 ML IV SCH (09:15)
[2019-11-07 09:18] LABS: BILIRUBIN,TOTAL 0.4 mg/dL (0.2-1); BLOOD UREA NITROGEN 11.3 mg/dL (7-18); CALCIUM 8.8 mg/dL (8.5-10.1); CREATININE 1.4 mg/dL (0.55-1.3); MAGNESIUM 1.9 mg/dL (1.8-2.4); PHOSPHOROUS 4.3 mg/dL (2.5-4.9); POTASSIUM 4.1 mmol/L (3.5-5.1); TOT PROT 7.1 g/dl (6.4-8.2)
--- NOTE | 2019-11-07 09:38 | CONSULT ---
Consult Consult Specialty:: Nephrology Reason for Consultation:: LIZA - History of Present Illness Chief Complaint: nausea and vomiting History of Present Illness: Pt is a 54 year old male with pmhx of gastroparesis, DM, osteomyelitis, righ bka who presents to the ER with abd pain, nausea and vomiting. He was found to have elevated application penetration tester. He denies history of CKD. He says that his gastropareis flairs have been getting more frequent. His renal function did improve with fluids. He denies nsaid use. He feels a little better today. - History Source History Provided By: Patient - Past Medical History Endocrine: Yes: Diabetes Mellitus - Alcohol/Substance Use Hx Alcohol Use: No - Smoking History Smoking history: Unknown if ever smoked Have you smoked in the past 12 months: No Home Medications - Allergies Allergies/Adverse Reactions: Allergies Allergy/AdvReac Type Severity Reaction Status Date / Time No Known Allergies Allergy Verified 11/06/19 11:52 - Home Medications Home Medications: Ambulatory Orders RX: Metformin HCl [Glucophage] 500 mg PO BID 07/02/19 RX: Metoclopramide HCl [Reglan] 10 mg PO ASDIR 07/02/19 Family Medical History Family History: Denies Review of Systems - Review of Systems Constitutional: reports: No Symptoms Eyes: reports: No Symptoms HENT: reports: No Symptoms Neck: reports: No Symptoms Cardiovascular: reports: No Symptoms Respiratory: reports: No Symptoms Gastrointestinal: reports: Abdominal Pain, Vomiting Genitourinary: reports: No Symptoms Musculoskeletal: reports: No Symptoms Integumentary: reports: No Symptoms Neurological: reports: No Symptoms Endocrine: reports: No Symptoms Hematology/Lymphatic: reports: No Symptoms Psychiatric: reports: No Symptoms Physical Exam Vital Signs: Vital Signs Temperature 98.4 F 11/07/19 05:28 Pulse Rate 93 H 11/07/19 08:00 Respiratory Rate 20 11/07/19 08:00 Blood Pressure 184/107 H 11/07/19 08:00 O2 Sat by Pulse Oximetry (%) 100 11/07/19 08:00 Constitutional: Yes: Calm Eyes: Yes: Conjunctiva Clear HENT: Yes: Atraumatic Neck: Yes: Supple Cardiovascular: Yes: S1, S2 Respiratory: Yes: CTA Bilaterally Gastrointestinal: Yes: Soft Renal/: Yes: WNL Musculoskeletal: Yes: Other (bka) Edema: No Neurological: Yes: Oriented Psychiatric: Yes: Oriented Labs: CBC, BMP 11/07/19 07:40 11/07/19 07:40 Problem List - Problems (1) LIZA (acute kidney injury) Code(s): N17.9 - ACUTE KIDNEY FAILURE, UNSPECIFIED Assessment/Plan Current Medications Generic Name Dose Route Start Last Admin Trade Name Freq PRN Reason Stop Dose Admin Acetaminophen 1,000 mg 11/07/19 07:42 Ofirmev Injection - IVPB 11/07/19 17:47 Q6H PRN PAIN LEVEL 4-6 Amlodipine Besylate 5 mg 11/07/19 10:00 Norvasc - PO DAILY LUCY Heparin Sodium (Porcine) 5,000 unit 11/07/19 14:00 Heparin - SQ TID LUCY Hydromorphone HCl 0.5 mg 11/07/19 07:42 Dilaudid Vial - IVPB Q6H PRN PAIN LEVEL 7 - 10 Dextrose/Sodium Chloride 500 mls @ 75 mls/hr 11/07/19 09:15 D5-1/3ns - IV ASDIR [facility] Insulin Aspart 1 vial 11/07/19 11:00 Novolog Vial Sliding Scale - SQ ACHS LUCY Protocol Labetalol HCl 200 mg 11/07/19 10:00 Normodyne - PO BID LUCY Metoclopramide HCl 10 mg 11/07/19 11:00 Reglan Injection - IVPUSH TIDAC LUCY Ondansetron HCl 4 mg 11/07/19 07:42 Zofran Injection IVPUSH Q6H PRN NAUSEA Impression 1. LIZA 2. gastroparesis 3. htn 4. vomiting 5. proteinuria Plan - cont fluids - repeat labs in am - check urine protein to application penetration tester ration - last a1c was about 6 per pt - will need outpt follow up
--- NOTE | 2019-11-07 09:46 | CON.GI ---
Consult Consult Specialty:: Gastroenterology ( covering the [facility] GI service) Referred by:: Dr. Navjot Agrawal Reason for Consultation:: Vomiting and hematemesis - History of Present Illness Chief Complaint: Persistent vomiting for 24 hours and occasional flecks of blood History of Present Illness: 54M admitted for persistent vomiting x 24 hours some episodes with flecks of blood and with upper abdominal pain. This is a recurring problem. No melena , in fact no BM in over 24 hours. He has chronic constipation. He had an EGD in the [facility] one month ago with Dr Joe when a polyp was removed and a " tear was bonded". He denies being told of a Alexandrea Mandujano tear or a tear related to vomiting. He was not bleeding during the EGD. No melena since then. He has never had a major GI bleed requiring transfusions. He reports that no clear cut etiology for his repeated episodes of vomiting has been determined but he is omaira ing Reglan 10mg TID ac. He has never had a colonoscopy. He denies any FH of colon cancer. He reports that his HbA1Cs have been < 7. NO recent fevers or diarrhea. - History Source History Provided By: Patient Limitations to Obtaining History: No Limitations - Past Medical History Cardio/Vascular: Yes: HTN Gastrointestinal: Yes: Constipation, Other (Recurring episodes of vomiting, often associated with flecks of blood and treated with Reglan) Infectious Disease: Yes: Other (RLE osteomyelitis ) - Past Surgical History Past Surgical History: Yes: Upper Endoscopy Additional Surgical History: R BKA 01/25 for osteomyelitis. 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 [employer] Place of : [employer] History of Recent Travel: No Home Medications - Allergies Allergies/Adverse Reactions: Allergies Allergy/AdvReac Type Severity Reaction Status Date / Time No Known Allergies Allergy Verified 11/06/19 11:52 - Home Medications Home Medications: Ambulatory Orders Metformin HCl [Glucophage] 500 mg PO BID 07/02/19 Metoclopramide HCl [Reglan] 10 mg PO ASDIR 07/02/19 Family Medical History Family Hx Cancer: Mother (breast cancer) Other Family History: Father of drug OD in his 30's Review of Systems - Review of Systems Constitutional: reports: No Symptoms Eyes: reports: No Symptoms HENT: reports: No Symptoms Neck: reports: No Symptoms Cardiovascular: reports: No Symptoms Respiratory: reports: No Symptoms Gastrointestinal: reports: Abdominal Pain, Constipation, Vomiting, Vomiting Blood Genitourinary: reports: No Symptoms Physical Exam-GI Vital Signs: Vital Signs Temperature 98.4 F 11/07/19 05:28 Pulse Rate 93 H 11/07/19 08:00 Respiratory Rate 20 11/07/19 08:00 Blood Pressure 184/107 H 11/07/19 08:00 O2 Sat by Pulse Oximetry (%) 100 11/07/19 08:00 CBC,CMP WBC 11.0 K/mm3 (4.0-10.0) H 11/07/19 07:40 RBC 3.59 M/mm3 (4.00-5.60) L 11/07/19 07:40 Hgb 8.7 GM/dL (11.7-16.9) L 11/07/19 07:40 Hct 27.5 % (35.4-49) L 11/07/19 07:40 MCV 76.6 fl (80-96) L 11/07/19 07:40 MCH 24.3 pg (25.7-33.7) L 11/07/19 07:40 MCHC 31.7 g/dl (32.0-35.9) L 11/07/19 07:40 RDW 19.4 % (11.9-15.9) H 11/07/19 07:40 Plt Count 314 K/MM3 (134-434) 11/07/19 07:40 MPV 8.7 fl (7.5-11.1) 11/07/19 07:40 Absolute Neuts (auto) 8.1 K/mm3 (1.5-8.0) H 11/06/19 13:50 Neutrophils % 78.2 % (42.8-82.8) 11/06/19 13:50 Lymphocytes % 13.8 % (8-40) 11/06/19 13:50 Monocytes % 6.4 % (3.8-10.2) 11/06/19 13:50 Eosinophils % 1.2 % (0-4.5) D 11/06/19 13:50 Basophils % 0.4 % (0-2.0) 11/06/19 13:50 Nucleated RBC % 0 % (0-0) 11/06/19 13:50 Retic Count 0.51 % (0.5-1.5) 11/07/19 07:40 Sodium 140 mmol/L (136-145) 11/07/19 07:40 Potassium 4.1 mmol/L (3.5-5.1) 11/07/19 07:40 Chloride 107 mmol/L (98-107) 11/07/19 07:40 Carbon Dioxide 23 mmol/L (21-32) 11/07/19 07:40 Anion Gap 10 MMOL/L (8-16) 11/07/19 07:40 BUN 11.3 mg/dL (7-18) 11/07/19 07:40 Creatinine 1.4 mg/dL (0.55-1.3) H 11/07/19 07:40 Est GFR (CKD-EPI)AfAm 65.55 11/07/19 07:40 Est GFR (CKD-EPI)NonAf 56.56 11/07/19 07:40 POC Glucometer 139 UNITS (80-120) 11/07/19 06:27 Random Glucose 146 mg/dL (74-106) H 11/07/19 07:40 Hemoglobin A1c % 6.9 % (4.2-6.3) H 11/07/19 07:40 Lactic Acid 2.4 mmol/L (0.4-2.0) H* 11/06/19 14:15 Calcium 8.8 mg/dL (8.5-10.1) 11/07/19 07:40 Phosphorus 4.3 mg/dL (2.5-4.9) 11/07/19 07:40 Magnesium 1.9 mg/dL (1.8-2.4) 11/07/19 07:40 Iron 33 ug/dL (50-175) L 11/07/19 07:40 TIBC 266 ug/dL (250-450) 11/07/19 07:40 Iron Saturation 12 % (17.5-39) L 11/07/19 07:40 Unsaturated IBC 233 ug/dL (200-275) 11/07/19 07:40 Ferritin 100.4 ng/ml (8-388) 11/07/19 07:40 Total Bilirubin 0.4 mg/dL (0.2-1) 11/07/19 07:40 AST 12 U/L (15-37) L 11/07/19 07:40 ALT 18 U/L (13-61) 11/07/19 07:40 Alkaline Phosphatase 120 U/L (45-117) H 11/07/19 07:40 Creatine Kinase 158 U/L (26-308) 11/06/19 13:50 Creatine Kinase Index 0.8 % (0.0-5.0) 11/06/19 13:50 CK-MB (CK-2) 1.4 ng/mL (0.5-3.6) 11/06/19 13:50 Total Protein 7.1 g/dl (6.4-8.2) 11/07/19 07:40 Albumin 3.0 g/dl (3.4-5.0) L 11/07/19 07:40 Current Medications Generic Name Dose Route Start Last Admin Trade Name Freq PRN Reason Stop Dose Admin Acetaminophen 1,000 mg 11/07/19 07:42 Ofirmev Injection - IVPB 11/07/19 17:47 Q6H PRN PAIN LEVEL 4-6 Amlodipine Besylate 5 mg 11/07/19 10:00 Norvasc - PO DAILY [facility] Heparin Sodium (Porcine) 5,000 unit 11/07/19 14:00 Heparin - SQ TID LUCY Hydromorphone HCl 0.5 mg 11/07/19 07:42 Dilaudid Vial - IVPB Q6H PRN PAIN LEVEL 7 - 10 Dextrose/Sodium Chloride 500 mls @ 75 mls/hr 11/07/19 09:15 D5-1/3ns - IV ASDIR [facility] Insulin Aspart 1 vial 11/07/19 11:00 Novolog Vial Sliding Scale - SQ ACHS LUCY Protocol Labetalol HCl 200 mg 11/07/19 10:00 Normodyne - PO BID LUCY Metoclopramide HCl 10 mg 11/07/19 11:00 Reglan Injection - IVPUSH TIDAC LUCY Ondansetron HCl 4 mg 11/07/19 07:42 Zofran Injection IVPUSH Q6H PRN NAUSEA Constitutional: Yes: No Distress Eyes: Yes: Conjunctiva Clear HENT: Yes: Atraumatic Neck: Yes: Supple Cardiovascular: Yes: Regular Rate and Rhythm Respiratory: Yes: CTA Bilaterally Gastrointestinal Inspection: Yes: WNL ...Auscultate: Yes: Normoactive Bowel Sounds ...Palpate: Yes: Other (nontender) ...Rectal Exam: Yes: Deferred (declined) Extremities: Yes: Amputation (R BKA) Neurological: Yes: Alert, Oriented Psychiatric: Yes: Alert, Oriented Labs: CBC, BMP 11/07/19 07:40 11/07/19 07:40 INR, PTT INR 1.03 (0.83-1.09) 11/06/19 13:50 Laboratory Tests 11/07/19 11/07/19 07:40 07:40 Hgb 8.7 L MCV 76.6 L Iron 33 L Iron Saturation 12 L Ferritin 100.4 Problem List - Problems (1) Hematemesis Code(s): K92.0 - HEMATEMESIS (2) History of right below knee amputation Code(s): Z89.511 - ACQUIRED ABSENCE OF RIGHT LEG BELOW KNEE (3) History of retinal detachment Code(s): Z86.69 - PERSONAL HISTORY OF DIS OF THE NERVOUS SYS AND SENSE ORGANS (4) Diabetes Code(s): E11.9 - TYPE 2 DIABETES MELLITUS WITHOUT COMPLICATIONS (5) Intractable vomiting Code(s): R11.10 - VOMITING, UNSPECIFIED Qualifiers: Vomiting type: unspecified Nausea presence: with nausea Qualified Code(s): R11.2 - Nausea with vomiting, unspecified (6) Diabetic gastroparesis Code(s): 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 (7) Abdominal pain Code(s): R10.9 - UNSPECIFIED ABDOMINAL PAIN (8) HTN (hypertension) Code(s): I10 - ESSENTIAL (PRIMARY) HYPERTENSION (9) Microcytic anemia Code(s): D50.9 - IRON DEFICIENCY ANEMIA, UNSPECIFIED (10) Constipation Code(s): K59.00 - CONSTIPATION, UNSPECIFIED Assessment/Plan Impression: - The picture is most consistent with diabetic gastroparesis with suspected Alexandrea Mandujano tear being discovered and glued at [facility] about a month ago. He does not appear to have active bleeding at present but need to be observed as this may still manifest in which case I told him that he will need a repeat EGD. - Microcytic anemia mandates a colonoscopy. Will give venofer as sat'n is 12% - Constipation mandates Miralax Plan: -- Reglan IVPB -- PPI empirically -- Serial CBCs -- Trial of clear liquids. If vomiting recurs will make NPO. If hematemesis recurs he will need an EGD. -- Miralax TID -- Venofer -- He may ultimately need a gastric pacemaker -- He has a colonoscopy scheduled with his [facility] on 11/10
[2019-11-07] MEDS: amLODIPine BESYLATE 5 MG TABLET (FP) PO SCH (10:42)
[2019-11-07] MEDS: LABETALOL HCL 200 MG TABLET (FP) PO SCH ×2 (10:42→22:09)
[2019-11-07] MEDS ORDERED: IRON SUCROSE INJECTION 200 MG in SODIUM CHLORIDE 90 ML IVPB ONE (10:48)
[2019-11-07] MEDS: HYDROmorphone HCl 2 MG/ML VIAL IVPB PRN ×2 (10:48→18:22)
--- NOTE | 2019-11-07 11:03 | CON.ID ---
Consult Consult Specialty:: infectious disease Referred by:: dr chavez Reason for Consultation:: elevated lactic acid level - History of Present Illness Chief Complaint: vomiting History of Present Illness: 54 yo man with dm for last 4 or 5 years, 2 year hitory of recurrent vomiting he lives in [facility] anad is followed by dr gallegos (GI) recent endoscopy at [facility] he reports he frequently has episodes of vomiting and abdominal pain that necessitate hospital admission for IVF and pain meds no fevers no diarrhea reports he has an ulcer on the LLE that is being cared for at [facility] no cough - History Source History Provided By: Patient Limitations to Obtaining History: Poor Historian - Past Medical History Cardio/Vascular: Yes: HTN Gastrointestinal: Yes: Constipation, Other (Recurring episodes of vomiting, often associated with flecks of blood and treated with Reglan) Hepatobiliary: Yes: Other (gastroparesis) Infectious Disease: Yes: Other (RLE osteomyelitis ) Endocrine: Yes: Diabetes Mellitus - Past Surgical History Past Surgical History: Yes: Upper Endoscopy Additional Surgical History: R BKA 01/25 for osteomyelitis. 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 denies: Cough, SOB Gastrointestinal: reports: Abdominal Pain, Vomiting (flecks of blood). denies: Diarrhea Genitourinary: reports: No Symptoms Physical Exam Vital Signs: Vital Signs Temperature 98.4 F 11/07/19 05:28 Pulse Rate 93 H 11/07/19 08:00 Respiratory Rate 20 11/07/19 08:00 Blood Pressure 184/107 H 11/07/19 08:00 O2 Sat by Pulse Oximetry (%) 100 11/07/19 08:00 Constitutional: Yes: Well Nourished, Calm HENT: Yes: Atraumatic, Normocephalic Neck: Yes: Supple Cardiovascular: Yes: Regular Rate and Rhythm Respiratory: Yes: Regular, CTA Bilaterally Gastrointestinal: Yes: Other (no abdominal exam- patient refuses) Extremities: Yes: Amputation (right BKA- well healed, will not let me remove dressing on Left lower leg to examins) Edema: No Psychiatric: Yes: Alert, Oriented Labs: CBC, BMP 11/07/19 07:40 11/07/19 07:40 Imaging - Results Chest X-ray: Report Reviewed, Image Reviewed Problem List - Problems (1) Elevated lactic acid level Code(s): R79.89 - OTHER SPECIFIED ABNORMAL FINDINGS OF BLOOD CHEMISTRY (2) Intractable vomiting Code(s): R11.10 - VOMITING, UNSPECIFIED Qualifiers: Vomiting type: unspecified Nausea presence: with nausea Qualified Code(s): R11.2 - Nausea with vomiting, unspecified (3) HTN (hypertension) Code(s): I10 - ESSENTIAL (PRIMARY) HYPERTENSION (4) Leg ulcer, left Code(s): L97.929 - NON-PRS CHRONIC ULC UNSP PRT OF L LOW LEG W UNSP SEVERITY (5) Diabetes Code(s): E11.9 - TYPE 2 DIABETES MELLITUS WITHOUT COMPLICATIONS Assessment/Plan elevated lactic acid level most likely due to acute vomiting-no fevers noted most likley gastroparesis htn poorly controlled LLE ulcer- he will not let me examine f/u covid pcr- no signs/symptoms to suggest covid 19 infection, continue isolation until results are back markedly limited history and physical- management per GI better BP control please call back if needed
--- NOTE | 2019-11-07 12:57 | EKG ---
Test Reason : Blood Pressure : / mmHG Vent. Rate : 103 BPM Atrial Rate : 103 BPM P-R Int : 188 ms QRS Dur : 084 ms QT Int : 338 ms P-R-T Axes : 044 013 009 degrees QTc Int : 442 ms SINUS TACHYCARDIA POSSIBLE LEFT ATRIAL ENLARGEMENT NONSPECIFIC T WAVE ABNORMALITY ABNORMAL ECG WHEN COMPARED WITH ECG OF 03-JUN-2019 03:13, NONSPECIFIC T WAVE ABNORMALITY NOW EVIDENT IN INFERIOR LEADS Confirmed by CLOVIS CULP MD ([id number]) on 11/07/2019 12:57:20 PM Referred By: Confirmed By:CLOVIS CULP MD
--- NOTE | 2019-11-07 13:01 | CON.CARD ---
Consult Consult Specialty:: Cardiology Referred by:: Dr. Bassett Reason for Consultation:: Severe hypertension - History of Present Illness Chief Complaint: Abdominal pain and vomiting History of Present Illness: 54 year old man with a PMHx of DM-II, gastroparesis, osteomyelitis, PVD s/p right BKA 01/2019 admitted 11/06/19 with severe abdominal pain, nausea, and 6 episodes of vomiting with slight blood. The patient has intermittent abdominal pain, N/V for about a year. But his symptoms worsening one day prior to the admission. Over the course of the day, the symptoms gradually became worse, with severe 9/10 diffuse abdominal pain radiating to the left leg, nausea with 6 episodes of vomiting with slight blood, body aches, fever/chills, weakness in his whole body. He had an EGD done a month ago for his gastroparesis, and was told that the EGD showed no abnormalities. He was found to have severe hypertension with borderline sinus tachycardia. His BP and HR control improved with labetalol and amlodipine. Seen by GI and ID. His abdominal pain improved and vomiting stopped. CXR unremarkable. He received IV fluids, dilaudid, IV Tylenol, Reglan. - History Source History Provided By: Patient, Medical Record Limitations to Obtaining History: No Limitations - Past Medical History Cardio/Vascular: Yes: HTN Gastrointestinal: Yes: Constipation, Other (Recurring episodes of vomiting, oft en associated with flecks of blood and treated with Reglan) Hepatobiliary: Yes: Other (gastroparesis) Infectious Disease: Yes: Other (RLE osteomyelitis ) Endocrine: Yes: Diabetes Mellitus - Past Surgical History Past Surgical History: Yes: Upper Endoscopy Additional Surgical History: R BKA 01/25 for osteomyelitis. 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 [employer] History of Recent Travel: No Home Medications - Allergies Allergies/Adverse Reactions: Allergies Allergy/AdvReac Type Severity Reaction Status Date / Time No Known Allergies Allergy Verified 11/06/19 11:52 - Home Medications Home Medications: Ambulatory Orders Metformin HCl [Glucophage] 500 mg PO BID 07/02/19 Metoclopramide HCl [Reglan] 10 mg PO ASDIR 07/02/19 Review of Systems - Review of Systems Constitutional: reports: Diaphoresis, Fever, Loss of Appetite, Night Sweats, Weakness Eyes: reports: No Symptoms HENT: reports: No Symptoms Neck: reports: No Symptoms Cardiovascular: reports: No Symptoms Respiratory: reports: No Symptoms Gastrointestinal: reports: Abdominal Pain, Indigestion, Nausea, Vomiting, Vomi ting Blood Genitourinary: reports: No Symptoms Breasts: reports: No Symptoms Reported Musculoskeletal: reports: Extremity Pain, Other (Right BKA) Integumentary: reports: No Symptoms Neurological: reports: Weakness Endocrine: reports: Excessive Sweating Vital Signs: Vital Signs Temperature 98.4 F 11/07/19 05:28 Pulse Rate 93 H 11/07/19 08:00 Respiratory Rate 11/07/19 08:00 Blood Pressure 184/107 H 11/07/19 08:00 O2 Sat by Pulse Oximetry (%) 100 11/07/19 09:00 General: Well developed. Well nourished. No acute distress. Head: Normocephalic. Atraumatic, Eyes: PERRLA, EOMI. Sclerae anicteric. Conjunctivae clear. Neck: Supple. No JVD. No bruits. Heart: Normal S1, S2: Regular rhythm and rate. No murmur. No gallop or rub. Lungs: Symmetrical air entry. Clear to auscultation. No crackle. No wheezing or rhonchi. Abdomen: Soft. Bowel sound positive. Non tender. No masses. Extremities: Right BKA. No edema. No clubbing or cyanosis. Neuro: Intact, no focal findings. AAO X3 - Other Data Labs, Other Data: CBC, BMP 11/07/19 07:40 11/07/19 07:40 INR, PTT INR 1.03 (0.83-1.09) 11/06/19 13:50 Assessment/Plan 54 year old man with a PMHx of DM-II, gastroparesis, osteomyelitis, PVD s/p right BKA 01/2019 admitted 11/06/19 with severe abdominal pain, nausea, and 6 episodes of vomiting with slight blood. He was found to have severe hypertension with borderline sinus tachycardia. His BP and HR control improved with labetalol and amlodipine. Seen by GI and ID. His abdominal pain improved and vomiting stopped. 1) New onset and severe hypertension. His BP and HR control improved with labetalol and amlodipine. May add ARB, losartan 50 mg daily for renal protection. Monitor renal function and potassium. Continue labetalol and amlodipine. Please do not hesitate to call us for reconsult at any time if any further ques tions or additional issue arises regarding this patient.
[2019-11-07] MEDS: POLYETHYLENE GLYCOL 3350 119 GM BTL PO SCH ×3 (13:03→22:17)
[2019-11-07] MEDS: HYDROmorphone HCl 2 MG/ML VIAL IVPUSH ONE ×2 (18:13→19:04)
[2019-11-07] MEDS ORDERED: PT OWN MED DRAWER 7, Y5N ONE (18:23)
[2019-11-07] MEDS: POTASSIUM CHLORIDE 10 MEQ in SODIUM CHLORIDE 0.45% 1,000 ML IVPB SCH (18:24)
[2019-11-08] MEDS: METOCLOPRAMIDE HCL INJECTION 10 MG/2 ML VIAL IVPUSH SCH (06:03)
[2019-11-08] MEDS: INSULIN SLIDING SCALE (NOVOLOG) 1 VIAL SQ SCH ×4 (06:24→21:56)
[2019-11-08] MEDS: POLYETHYLENE GLYCOL 3350 119 GM BTL PO SCH ×3 (06:24→21:42)
[2019-11-08] MEDS ORDERED: MORPHINE SULFATE 2 MG/ML VIAL IM ONE (06:27)
[2019-11-08] MEDS ORDERED: ONDANSETRON *ODT* 4 MG TABLET SL ONE (06:30)
[2019-11-08] MEDS: HEPARIN NA (PORCINE) 5,000 UNITS/ML 1ML VIAL SQ SCH ×3 (06:38→21:55)
[2019-11-08] MEDS ORDERED: HYDROmorphone HCl 2 MG/ML VIAL IM PRN (09:37)
[2019-11-08] MEDS ORDERED: LORazepam 0.5 MG TABLET PO ONE (09:38)
[2019-11-08] MEDS ORDERED: PT OWN MED DRAWER 7, Y5N ONE (09:58)
--- NOTE | 2019-11-08 10:01 | PN.GI ---
GI Progress Note Subjective: No acute events When walked in appeared comfortable, however, retched up mucous during evaluation Lost IV access - Objective Vital Signs: Vital Signs Temperature 98.7 F 11/08/19 06:00 Pulse Rate 114 H 11/08/19 06:00 Respiratory Rate 20 11/08/19 06:00 Blood Pressure 136/82 11/08/19 06:00 O2 Sat by Pulse Oximetry (%) 100 11/08/19 06:00 Constitutional: Calm Eyes: No: Sclera Icterus Cardiovascular: Yes: Tachycardia Respiratory: Yes: CTA Bilaterally Gastrointestinal Inspection: No: Distention ...Auscultate: Yes: Normoactive Bowel Sounds ...Palpate: Yes: Soft, Tenderness (Mild TTP mid abdomen). No: Guarding, Hepatomegaly, Splenomegaly Extremities: Yes: Other (right BKA) Edema: No Neurological: Yes: Alert Labs: CBC, BMP 11/07/19 07:40 11/07/19 07:40 INR, PTT INR 1.03 (0.83-1.09) 11/06/19 13:50 Problem List - Problems (1) Abdominal pain Assessment/Plan: chronic by description with outpatient work-up in progress with [facility] Continue supportive measures. Obtain CT scan of the abdomen with PO contrast IV hydration IV aceess has been lost and is in process of being replaced. Nurse aware Zofran 4mg q 8 hours PRN Patient describes having had normal SGES previously. Reglan does not seem to be helping. discontinued Check Urine tox (prdered) Problems reviewed: Yes Code(s): R10.9 - UNSPECIFIED ABDOMINAL PAIN
[2019-11-08] MEDS: amLODIPine BESYLATE 5 MG TABLET (FP) PO SCH ×2 (10:04→14:03)
[2019-11-08] MEDS: LABETALOL HCL 200 MG TABLET (FP) PO SCH ×3 (10:04→21:56)
--- NOTE | 2019-11-08 12:20 | PN ---
Progress Note, Physician Chief Complaint: PATIENT SEEN AND EXAMINED EVENTS AND NOTES REVIEWED NO IV ACCESS AFTER SEVERAL ATTEMPTS BY THE HOSPITAL STAFF. PATIENT AWAKE ALERT MILD DISTRESS - Current Medication List Current Medications: Active Medications Amlodipine Besylate (Norvasc -) 5 mg PO DAILY [facility] Last Admin: 11/07/19 10:42 Dose: 5 mg Documented by: Heparin Sodium (Porcine) (Heparin -) 5,000 unit SQ TID [facility] Last Admin: 11/08/19 06:38 Dose: 5,000 unit Documented by: Hydromorphone HCl (Dilaudid Vial -) 1 mg IM Q4H PRN PRN Reason: PAIN LEVEL 6-10 Last Admin: 11/08/19 10:15 Dose: 1 mg Documented by: Potassium Chloride 10 meq/ (Sodium Chloride) 1,005 mls @ 42 mls/hr IVPB Q24H [facility] Last Admin: 11/07/19 18:24 Dose: 42 mls/hr Documented by: Insulin Aspart (Novolog Vial Sliding Scale -) 1 vial SQ ACHS [facility]; Protocol Last Admin: 11/08/19 11:38 Dose: Not Given Documented by: Labetalol HCl (Normodyne -) 200 mg PO BID [facility] Last Admin: 11/07/19 22:09 Dose: 200 mg Documented by: Ondansetron HCl (Zofran Injection) 4 mg IVPUSH Q8H PRN PRN Reason: NAUSEA Polyethylene Glycol (Miralax (For Daily Use) -) 17 gm PO TID [facility] Last Admin: 11/08/19 06:24 Dose: Not Given Documented by: - Objective Vital Signs: Vital Signs Temperature 98.7 F 11/08/19 06:00 Pulse Rate 114 H 11/08/19 06:00 Respiratory Rate 20 11/08/19 06:00 Blood Pressure 136/82 11/08/19 06:00 O2 Sat by Pulse Oximetry (%) 100 11/08/19 06:00 Constitutional: Yes: Mild Distress Cardiovascular: Yes: Regular Rate and Rhythm Respiratory: Yes: CTA Bilaterally Gastrointestinal: Yes: Soft, Distention Genitourinary: Yes: WNL Extremities: Yes: Amputation Integumentary: Yes: Pressure Ulcer (LEFT LOWER LEG SKIN ULCER HEALING RIGHT BKA) Wound/Incision: Yes: Dressing Dry and Intact (RIGHT BKA) Labs: CBC, BMP 11/07/19 07:40 11/07/19 07:40 INR, PTT INR 1.03 (0.83-1.09) 11/06/19 13:50 Problem List - Problems (1) LIZA (acute kidney injury) Code(s): N17.9 - ACUTE KIDNEY FAILURE, UNSPECIFIED (2) Abdominal pain Code(s): R10.9 - UNSPECIFIED ABDOMINAL PAIN (3) Diabetes Code(s): E11.9 - TYPE 2 DIABETES MELLITUS WITHOUT COMPLICATIONS (4) Elevated lactic acid level Code(s): R79.89 - OTHER SPECIFIED ABNORMAL FINDINGS OF BLOOD CHEMISTRY (5) HTN (hypertension) Code(s): I10 - ESSENTIAL (PRIMARY) HYPERTENSION (6) Hematemesis Code(s): K92.0 - HEMATEMESIS (7) History of right below knee amputation Code(s): Z89.511 - ACQUIRED ABSENCE OF RIGHT LEG BELOW KNEE (8) Leg ulcer, left Code(s): L97.929 - NON-PRS CHRONIC ULC UNSP PRT OF L LOW LEG W UNSP SEVERITY (9) Diabetic gastroparesis Code(s): 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 Assessment/Plan I CALLED SURGERY FOR IV ACCESS BY SURESH CHANGED MEDS TO PO CBC/CMP PENDING RENAL FAILURE IMPROVING ENCOURAGED PO INTAKE GI FOLLOW UP RENAL EVALUATION APPRECIATED STOOL GUAC OCCULT ORDERED TO ACCESS ANEMIA IRON DEF ON FERROUS IV
[2019-11-08] MEDS: HYDROmorphone HCl 2 MG/ML VIAL IVPB PRN ×2 (14:05→20:29)
[2019-11-08] MEDS: ONDANSETRON 4 MG/2 ML VIAL IVPUSH PRN (16:54)
[2019-11-08] MEDS: POTASSIUM CHLORIDE 10 MEQ in SODIUM CHLORIDE 0.45% 1,000 ML IVPB SCH (18:46)
[2019-11-09] MEDS: HYDROmorphone HCl 2 MG/ML VIAL IVPB PRN ×4 (02:07→22:44)
[2019-11-09] MEDS: HEPARIN NA (PORCINE) 5,000 UNITS/ML 1ML VIAL SQ SCH ×4 (06:08→22:15)
[2019-11-09] MEDS: INSULIN SLIDING SCALE (NOVOLOG) 1 VIAL SQ SCH ×4 (06:08→22:14)
[2019-11-09] MEDS: POLYETHYLENE GLYCOL 3350 119 GM BTL PO SCH ×4 (06:11→22:10)
[2019-11-09] MEDS ORDERED: PT OWN MED DRAWER 7, Y5N ONE ×2 (09:07→10:36)
[2019-11-09] MEDS: amLODIPine BESYLATE 5 MG TABLET (FP) PO SCH (09:11)
[2019-11-09] MEDS: LABETALOL HCL 200 MG TABLET (FP) PO SCH ×2 (09:11→22:15)
--- NOTE | 2019-11-09 09:26 | PN.GI ---
GI Progress Note Subjective: States feling beter than when he was admitted but not 100% CT scan not performed yesterday because he was nauseaous - Objective Vital Signs: Vital Signs Temperature 98.5 F 11/09/19 04:00 Pulse Rate 94 H 11/09/19 04:00 Respiratory Rate 20 11/09/19 04:00 Blood Pressure 126/80 11/09/19 04:00 O2 Sat by Pulse Oximetry (%) 100 11/09/19 04:00 Constitutional: Calm Eyes: No: Sclera Icterus Cardiovascular: Yes: Regular Rate and Rhythm Respiratory: Yes: CTA Bilaterally Gastrointestinal Inspection: No: Distention ...Auscultate: Yes: Normoactive Bowel Sounds ...Palpate: Yes: Tenderness (Mild TTP Mid abdomen) Extremities: Yes: Other (right BKA) Edema: No Neurological: Yes: Alert Labs: CBC, BMP 11/07/19 07:40 11/07/19 07:40 INR, PTT INR 1.03 (0.83-1.09) 11/06/19 13:50 Problem List - Problems (1) Abdominal pain Assessment/Plan: Advised nurse, as I did yesterday, that Mr. Laird can have the CT scan of the A/P without any contrast given the fact that he wont drink the contrast Continue supportive measures Ordered urine tox yesterday, not collected as of yet. Advised nurse to collect urine tox Code(s): R10.9 - UNSPECIFIED ABDOMINAL PAIN Qualifiers: Abdominal location: unspecified location Qualified Code(s): R10.9 - Unspecified abdominal pain
[2019-11-09 11:01] LABS: COCAINE, UR NEGATIVE ng/ml (CUTOFF=300); METHADONE, UR NEGATIVE ng/ml (CUTOFF=300); PHENCYCLIDINE,URINE NEGATIVE ng/ml (CUTOFF=25); URINE AMPHETAMINES NEGATIVE ng/ml (CUTOFF=500); URINE BARBITURATES NEGATIVE ng/ml (CUTOFF=200); URINE BENZODIAZEPINES NEGATIVE ng/ml (CUTOFF=200)
[2019-11-09 11:06] LABS: OPIATES, URI POSITIVE ng/ml (CUTOFF=300)
[2019-11-09] MEDS: POTASSIUM CHLORIDE 10 MEQ in SODIUM CHLORIDE 0.45% 1,000 ML IVPB SCH ×2 (12:40→17:02)
--- NOTE | 2019-11-09 13:48 | PN ---
Progress Note, Physician Chief Complaint: AWAKE AND BEING TRANSFERRED TO RADIOLOGY FOR CT SCAN ABD/PELVIS - Current Medication List Current Medications: Active Medications Amlodipine Besylate (Norvasc -) 5 mg PO DAILY [facility] Last Admin: 11/09/19 09:11 Dose: 5 mg Documented by: Heparin Sodium (Porcine) (Heparin -) 5,000 unit SQ TID [facility] Last Admin: 11/09/19 06:08 Dose: 5,000 unit Documented by: Hydromorphone HCl (Dilaudid Vial -) 2 mg IVPB Q6H PRN PRN Reason: PAIN LEVEL 6-10 Last Admin: 11/09/19 08:22 Dose: 2 mg Documented by: Potassium Chloride 10 meq/ (Sodium Chloride) 1,005 mls @ 42 mls/hr IVPB Q24H [facility] Last Admin: 11/09/19 12:40 Dose: 42 mls/hr Documented by: Insulin Aspart (Novolog Vial Sliding Scale -) 1 vial SQ ACHS [facility]; Protocol Last Admin: 11/09/19 11:53 Dose: Not Given Documented by: Labetalol HCl (Normodyne -) 200 mg PO BID [facility] Last Admin: 11/09/19 09:11 Dose: 200 mg Documented by: Ondansetron HCl (Zofran Injection) 4 mg IVPUSH Q8H PRN PRN Reason: NAUSEA Last Admin: 11/08/19 16:54 Dose: 4 mg Documented by: Polyethylene Glycol (Miralax (For Daily Use) -) 17 gm PO TID [facility] Last Admin: 11/09/19 06:14 Dose: Not Given Documented by: - Objective Vital Signs: Vital Signs Temperature 98 F 11/09/19 12:45 Pulse Rate 82 11/09/19 12:45 Respiratory Rate 20 11/09/19 12:45 Blood Pressure 153/87 11/09/19 12:45 O2 Sat by Pulse Oximetry (%) 100 11/09/19 12:45 Constitutional: Yes: Mild Distress Cardiovascular: Yes: Regular Rate and Rhythm Respiratory: Yes: WNL Gastrointestinal: Yes: Soft Genitourinary: Yes: Other Musculoskeletal: Yes: Muscle Weakness Extremities: Yes: Amputation Wound/Incision: Yes: Open to air ...Motor Strength: RLE Psychiatric: Yes: Other Labs: CBC, BMP 11/07/19 07:40 11/07/19 07:40 INR, PTT INR 1.03 (0.83-1.09) 11/06/19 13:50 Problem List - Problems (1) LIZA (acute kidney injury) Code(s): N17.9 - ACUTE KIDNEY FAILURE, UNSPECIFIED (2) Abdominal pain Code(s): R10.9 - UNSPECIFIED ABDOMINAL PAIN Qualifiers: Abdominal location: unspecified location Qualified Code(s): R10.9 - Unspecified abdominal pain (3) Diabetes Code(s): E11.9 - TYPE 2 DIABETES MELLITUS WITHOUT COMPLICATIONS (4) Elevated lactic acid level Code(s): R79.89 - OTHER SPECIFIED ABNORMAL FINDINGS OF BLOOD CHEMISTRY (5) HTN (hypertension) Code(s): I10 - ESSENTIAL (PRIMARY) HYPERTENSION (6) Hematemesis Code(s): K92.0 - HEMATEMESIS (7) History of right below knee amputation Code(s): Z89.511 - ACQUIRED ABSENCE OF RIGHT LEG BELOW KNEE (8) Leg ulcer, left Code(s): L97.929 - NON-PRS CHRONIC ULC UNSP PRT OF L LOW LEG W UNSP SEVERITY (9) Diabetic gastroparesis Code(s): 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 Assessment/Plan AWAITING CT SCAN RESULTS ABD/PELVIS F/U WITH GI PAIN CONTROL RENAL FAILURE IMPROVING ENCOURAGED PO INTAKE GI FOLLOW UP RENAL EVALUATION APPRECIATED STOOL GUAC OCCULT ORDERED TO ACCESS ANEMIA IRON DEF ON FERROUS IV
[2019-11-09] MEDS: ONDANSETRON 4 MG/2 ML VIAL IVPUSH PRN ×2 (16:21→23:14)
[2019-11-10] MEDS: HYDROmorphone HCl 2 MG/ML VIAL IVPB PRN ×3 (04:20→21:01)
[2019-11-10] MEDS: HEPARIN NA (PORCINE) 5,000 UNITS/ML 1ML VIAL SQ SCH ×3 (06:25→21:00)
[2019-11-10] MEDS: INSULIN SLIDING SCALE (NOVOLOG) 1 VIAL SQ SCH ×4 (06:25→21:04)
[2019-11-10] MEDS: POLYETHYLENE GLYCOL 3350 119 GM BTL PO SCH ×3 (06:33→21:00)
[2019-11-10] MEDS: amLODIPine BESYLATE 5 MG TABLET (FP) PO SCH (09:16)
[2019-11-10] MEDS: LABETALOL HCL 200 MG TABLET (FP) PO SCH ×2 (09:16→21:00)
[2019-11-10 09:22] LABS: BASO % 0.7 % (0-2.0); EOS % 0.8 % (0-4.5); HEMATOCRIT 29.5 % (35.4-49); HEMOGLOBIN 9.5 GM/dL (11.7-16.9); LYMPH % 19.1 % (8-40); MCH 24.4 pg (25.7-33.7); MEAN CELL VOLUME 76.3 fl (80-96); MEAN PLT VOLUME 7.8 fl (7.5-11.1); MONO % 5.6 % (3.8-10.2); NEUT % 73.8 % (42.8-82.8); PLATELET COUNT 379 K/MM3 (134-434); RBC 3.87 M/mm3 (4.00-5.60); RDW 18.9 % (11.9-15.9); WHITE BLOOD COUNT 10.8 K/mm3 (4.0-10.0)
--- NOTE | 2019-11-10 09:27 | PN ---
Progress Note, Physician - Current Medication List Current Medications: Active Medications Amlodipine Besylate (Norvasc -) 5 mg PO DAILY [facility] Last Admin: 11/10/19 09:16 Dose: 5 mg Documented by: Heparin Sodium (Porcine) (Heparin -) 5,000 unit SQ TID [facility] Last Admin: 11/10/19 06:25 Dose: 5,000 unit Documented by: Hydromorphone HCl (Dilaudid Vial -) 2 mg IVPB Q6H PRN PRN Reason: PAIN LEVEL 6-10 Last Admin: 11/10/19 04:20 Dose: 2 mg Documented by: Potassium Chloride 10 meq/ (Sodium Chloride) 1,005 mls @ 42 mls/hr IVPB Q24H [facility] Last Admin: 11/09/19 17:02 Dose: Not Given Documented by: Insulin Aspart (Novolog Vial Sliding Scale -) 1 vial SQ ACHS [facility]; Protocol Last Admin: 11/10/19 06:25 Dose: Not Given Documented by: Labetalol HCl (Normodyne -) 200 mg PO BID [facility] Last Admin: 11/10/19 09:16 Dose: 200 mg Documented by: Ondansetron HCl (Zofran Injection) 4 mg IVPUSH Q8H PRN PRN Reason: NAUSEA Last Admin: 11/09/19 23:14 Dose: 4 mg Documented by: Polyethylene Glycol (Miralax (For Daily Use) -) 17 gm PO TID [facility] Last Admin: 11/10/19 06:33 Dose: Not Given Documented by: - Objective Vital Signs: Vital Signs Temperature 98.5 F 11/10/19 04:00 Pulse Rate 94 H 11/10/19 04:00 Respiratory Rate 20 11/10/19 04:00 Blood Pressure 155/91 11/10/19 04:00 O2 Sat by Pulse Oximetry (%) 100 11/09/19 20:57 Cardiovascular: Yes: Regular Rate and Rhythm Respiratory: Yes: Regular, CTA Bilaterally Gastrointestinal: Yes: Normal Bowel Sounds, Soft. No: Tenderness Labs: INR, PTT INR 1.03 (0.83-1.09) 11/06/19 13:50 Problem List - Problems (1) Abdominal pain Assessment/Plan: CT SCAN NAD ADD RGLAN GI FOLLOW UP Code(s): R10.9 - UNSPECIFIED ABDOMINAL PAIN Qualifiers: Abdominal location: unspecified location Qualified Code(s): R10.9 - Unspeci fied abdominal pain (2) HTN (hypertension) Assessment/Plan: NORVASC AND LABETOLOL MONITOR BP CARDIO AND RENAL Code(s): I10 - ESSENTIAL (PRIMARY) HYPERTENSION (3) Intractable vomiting Assessment/Plan: REGLAN GI Code(s): R11.10 - VOMITING, UNSPECIFIED Qualifiers: Vomiting type: unspecified Nausea presence: with nausea Qualified Code(s): R11.2 - Nausea with vomiting, unspecified (4) Diabetic gastroparesis Assessment/Plan: PER GI Start Reglan ct noted NAD Code(s): 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 (5) Diabetes Assessment/Plan: BGM Code(s): E11.9 - TYPE 2 DIABETES MELLITUS WITHOUT COMPLICATIONS
[2019-11-10 10:00] LABS: ALBUMIN 3.2 g/dl (3.4-5.0); BILIRUBIN,TOTAL 0.3 mg/dL (0.2-1); BLOOD UREA NITROGEN 9.4 mg/dL (7-18); CALCIUM 9.2 mg/dL (8.5-10.1); CREATININE 1.3 mg/dL (0.55-1.3); POTASSIUM 4.4 mmol/L (3.5-5.1); TOT PROT 7.3 g/dl (6.4-8.2)
[2019-11-10] MEDS ORDERED: INSULIN (NOVOLOG) ASPART 100 UNITS/ML 10ML VIAL ONE (10:48)
[2019-11-10] MEDS: METOCLOPRAMIDE HCL 10 MG TABLET (FP) PO SCH ×2 (10:54→16:43)
--- NOTE | 2019-11-10 16:34 | PN ---
Progress Note, Physician History of Present Illness: Pt seen and examined at bedside. He is awake and alert. He denies shortness of breath. - Current Medication List Current Medications: Active Medications Amlodipine Besylate (Norvasc -) 5 mg PO DAILY [facility] Last Admin: 11/10/19 09:16 Dose: 5 mg Documented by: Heparin Sodium (Porcine) (Heparin -) 5,000 unit SQ TID [facility] Last Admin: 11/10/19 13:13 Dose: 5,000 unit Documented by: Hydromorphone HCl (Dilaudid Vial -) 2 mg IVPB Q6H PRN PRN Reason: PAIN LEVEL 6-10 Last Admin: 11/10/19 15:11 Dose: 2 mg Documented by: Potassium Chloride 10 meq/ (Sodium Chloride) 1,005 mls @ 42 mls/hr IVPB Q24H [facility] Last Admin: 11/09/19 17:02 Dose: Not Given Documented by: Insulin Aspart (Novolog Vial Sliding Scale -) 1 vial SQ [facility]; Protocol Last Admin: 11/10/19 11:38 Dose: Not Given Documented by: Labetalol HCl (Normodyne -) 200 mg PO BID [facility] Last Admin: 11/10/19 09:16 Dose: 200 mg Documented by: Metoclopramide HCl (Reglan -) 10 mg PO TIDAC [facility] Last Admin: 11/10/19 10:54 Dose: 10 mg Documented by: Ondansetron HCl (Zofran Injection) 4 mg IVPUSH Q8H PRN PRN Reason: NAUSEA Last Admin: 11/09/19 23:14 Dose: 4 mg Documented by: Polyethylene Glycol (Miralax (For Daily Use) -) 17 gm PO TID [facility] Last Admin: 11/10/19 13:13 Dose: 17 gm Documented by: - Objective Vital Signs: Vital Signs Temperature 98.2 F 11/10/19 14:00 Pulse Rate 82 11/10/19 14:00 Respiratory Rate 14 11/10/19 14:00 Blood Pressure 141/71 11/10/19 14:00 O2 Sat by Pulse Oximetry (%) 100 11/10/19 09:00 Constitutional: Yes: Calm Eyes: Yes: Conjunctiva Clear HENT: Yes: Atraumatic Neck: Yes: Supple Cardiovascular: Yes: S1, S2 Respiratory: Yes: CTA Bilaterally Gastrointestinal: Yes: Normal Bowel Sounds, Soft Genitourinary: Yes: WNL Edema: No Neurological: Yes: Oriented Labs: CBC, BMP 11/10/19 08:45 11/10/19 08:45 INR, PTT INR 1.03 (0.83-1.09) 11/06/19 13:50 Problem List - Problems (1) LIZA (acute kidney injury) Code(s): N17.9 - ACUTE KIDNEY FAILURE, UNSPECIFIED Assessment/Plan Current Medications Generic Name Dose Route Start Last Admin Trade Name Freq PRN Reason Stop Dose Admin Amlodipine Besylate 5 mg 11/07/19 10:00 11/10/19 09:16 Norvasc - PO 5 mg DAILY [facility] Administration Heparin Sodium (Porcine) 5,000 unit 11/07/19 14:00 11/10/19 13:13 Heparin - SQ 5,000 unit TID [facility] Administration Hydromorphone HCl 2 mg 11/08/19 13:26 11/10/19 15:11 Dilaudid Vial - IVPB 2 mg Q6H PRN Administration PAIN LEVEL 6-10 Potassium Chloride 10 meq/ 1,005 mls @ 42 mls/hr 11/07/19 16:45 11/09/19 17:02 Sodium Chloride IVPB Not Given Q24H [facility] Insulin Aspart 1 vial 11/07/19 11:00 11/10/19 11:38 Novolog Vial Sliding Scale - SQ Not Given ACHS [facility] Protocol Labetalol HCl 200 mg 11/07/19 10:00 11/10/19 09:16 Normodyne - PO 200 mg BID [facility] Administration Metoclopramide HCl 10 mg 11/10/19 11:00 11/10/19 10:54 Reglan - PO 10 mg TIDAC [facility] Administration Ondansetron HCl 4 mg 11/08/19 10:09 11/09/19 23:14 Zofran Injection IVPUSH 4 mg Q8H PRN Administration NAUSEA Polyethylene Glycol 17 gm 11/07/19 14:00 11/10/19 13:13 Miralax (For Daily Use) - PO 17 gm TID [facility] Administration Impression 1. LIZA 2. gastroparesis 3. htn 4. vomiting 5. proteinuria Plan - renal function stable - pt tolerating clears - monitor lytes - LIZA likely from dehydration from vomiting - will need outpt follow up
[2019-11-10] MEDS ORDERED: PT OWN MED DRAWER 7, Y5N ONE (16:37)
[2019-11-10] MEDS: POTASSIUM CHLORIDE 10 MEQ in SODIUM CHLORIDE 0.45% 1,000 ML IVPB SCH (16:43)
[2019-11-10] MEDS ORDERED: SENNOSIDES 8.6MG TABLET (FP) PO PRN (23:12)
[2019-11-11] MEDS: HYDROmorphone HCl 2 MG/ML VIAL IVPB PRN ×4 (02:11→21:53)
[2019-11-11] MEDS: POLYETHYLENE GLYCOL 3350 119 GM BTL PO SCH ×3 (06:06→21:47)
[2019-11-11] MEDS: INSULIN SLIDING SCALE (NOVOLOG) 1 VIAL SQ SCH ×4 (06:09→21:51)
[2019-11-11] MEDS: HEPARIN NA (PORCINE) 5,000 UNITS/ML 1ML VIAL SQ SCH ×4 (06:09→21:47)
[2019-11-11] MEDS: METOCLOPRAMIDE HCL 10 MG TABLET (FP) PO SCH ×3 (06:10→16:52)
[2019-11-11] MEDS: amLODIPine BESYLATE 5 MG TABLET (FP) PO SCH (09:23)
[2019-11-11] MEDS: LABETALOL HCL 200 MG TABLET (FP) PO SCH ×2 (09:23→21:48)
--- NOTE | 2019-11-11 10:25 | PN.GI ---
GI Progress Note Subjective: No acute events Non contrast CT scan unrevealing States feeling "about 75%" Appetite improved. Wants to eat - Objective Vital Signs: Vital Signs Temperature 98.2 F 11/11/19 06:00 Pulse Rate 77 11/11/19 06:00 Respiratory Rate 20 11/11/19 06:00 Blood Pressure 145/93 11/11/19 06:00 O2 Sat by Pulse Oximetry (%) 100 11/10/19 21:00 Constitutional: Calm Eyes: Yes: Cataracts. No: Sclera Icterus Cardiovascular: Yes: Regular Rate and Rhythm Respiratory: Yes: CTA Bilaterally Gastrointestinal Inspection: No: Distention ...Auscultate: Yes: Normoactive Bowel Sounds ...Palpate: Yes: Soft. No: Hepatomegaly, Splenomegaly, Tenderness Extremities: Yes: Other (Right BKA) Labs: CBC, BMP 11/10/19 08:45 11/10/19 08:45 INR, PTT INR 1.03 (0.83-1.09) 11/06/19 13:50 Hepatic Panel Total Bilirubin 0.3 mg/dL (0.2-1) 11/10/19 08:45 AST 16 U/L (15-37) 11/10/19 08:45 ALT 16 U/L (13-61) 11/10/19 08:45 Alkaline Phosphatase 121 U/L (45-117) H 11/10/19 08:45 Albumin 3.2 g/dl (3.4-5.0) L 11/10/19 08:45 Problem List - Problems (1) Abdominal pain Assessment/Plan: Improved Advancing diet to full liquid then as tolerates Urine tox + for ecstacy. Eval of + urine tox per PMD Outpatient follow-up with PMD Code(s): R10.9 - UNSPECIFIED ABDOMINAL PAIN Qualifiers: Abdominal location: unspecified location Qualified Code(s): R10.9 - Unspecified abdominal pain
--- NOTE | 2019-11-11 11:23 | PN ---
Progress Note, Physician History of Present Illness: Pt seen and examined at bedside. He is awake and alert. He has not vomited today. - Current Medication List Current Medications: Active Medications Amlodipine Besylate (Norvasc -) 5 mg PO DAILY [facility] Last Admin: 11/11/19 09:23 Dose: 5 mg Documented by: Heparin Sodium (Porcine) (Heparin -) 5,000 unit SQ TID [facility] Last Admin: 11/11/19 06:09 Dose: Not Given Documented by: Hydromorphone HCl (Dilaudid Vial -) 2 mg IVPB Q6H PRN PRN Reason: PAIN LEVEL 7 - 10 Last Admin: 11/11/19 08:16 Dose: 2 mg Documented by: Potassium Chloride 10 meq/ (Sodium Chloride) 1,005 mls @ 42 mls/hr IVPB Q24H [facility] Last Admin: 11/10/19 16:43 Dose: 42 mls/hr Documented by: Insulin Aspart (Novolog Vial Sliding Scale -) 1 vial SQ ACHS [facility]; Protocol Last Admin: 11/11/19 06:09 Dose: Not Given Documented by: Labetalol HCl (Normodyne -) 200 mg PO BID [facility] Last Admin: 11/11/19 09:23 Dose: 200 mg Documented by: Metoclopramide HCl (Reglan -) 10 mg PO TIDAC [facility] Last Admin: 11/11/19 06:10 Dose: 10 mg Documented by: Ondansetron HCl (Zofran Injection) 4 mg IVPUSH Q8H PRN PRN Reason: NAUSEA Last Admin: 11/09/19 23:14 Dose: 4 mg Documented by: Polyethylene Glycol (Miralax (For Daily Use) -) 17 gm PO TID [facility] Last Admin: 11/11/19 06:06 Dose: Not Given Documented by: Senna (Senna -) 2 tab PO HS PRN PRN Reason: CONSTIPATION - Objective Vital Signs: Vital Signs Temperature 98.5 F 11/11/19 09:00 Pulse Rate 90 11/11/19 09:00 Respiratory Rate 20 11/11/19 09:00 Blood Pressure 124/94 11/11/19 09:00 O2 Sat by Pulse Oximetry (%) 100 11/11/19 09:00 Constitutional: Yes: Calm Eyes: Yes: Conjunctiva Clear HENT: Yes: Atraumatic Neck: Yes: Supple Cardiovascular: Yes: S1, S2 Respiratory: Yes: CTA Bilaterally Gastrointestinal: Yes: Normal Bowel Sounds, Soft Genitourinary: Yes: WNL Musculoskeletal: Yes: WNL Edema: No Neurological: Yes: Oriented Psychiatric: Yes: Oriented Labs: CBC, BMP 11/10/19 08:45 11/10/19 08:45 INR, PTT INR 1.03 (0.83-1.09) 11/06/19 13:50 Problem List - Problems (1) LIZA (acute kidney injury) Code(s): N17.9 - ACUTE KIDNEY FAILURE, UNSPECIFIED Assessment/Plan Current Medications Generic Name Dose Route Start Last Admin Trade Name Freq PRN Reason Stop Dose Admin Amlodipine Besylate 5 mg 11/07/19 10:00 11/11/19 09:23 Norvasc - PO 5 mg DAILY [facility] Administration Heparin Sodium (Porcine) 5,000 unit 11/07/19 14:00 11/11/19 06:09 Heparin - SQ Not Given TID [facility] Hydromorphone HCl 2 mg 11/10/19 19:53 11/11/19 08:16 Dilaudid Vial - IVPB 2 mg Q6H PRN Administration PAIN LEVEL 7 - 10 Potassium Chloride 10 meq/ 1,005 mls @ 42 mls/hr 11/07/19 16:45 11/10/19 16:43 Sodium Chloride IVPB 42 mls/hr Q24H [facility] Administration Insulin Aspart 1 vial 11/07/19 11:00 11/11/19 06:09 Novolog Vial Sliding Scale - SQ Not Given ACHS [facility] Protocol Labetalol HCl 200 mg 11/07/19 10:00 11/11/19 09:23 Normodyne - PO 200 mg BID [facility] Administration Metoclopramide HCl 10 mg 11/10/19 11:00 11/11/19 06:10 Reglan - PO 10 mg TIDAC [facility] Administration Ondansetron HCl 4 mg 11/08/19 10:09 11/09/19 23:14 Zofran Injection IVPUSH 4 mg Q8H PRN Administration NAUSEA Polyethylene Glycol 17 gm 11/07/19 14:00 11/11/19 06:06 Miralax (For Daily Use) - PO Not Given TID [facility] Senna 2 tab 11/10/19 23:12 Senna - PO HS PRN CONSTIPATION Impression 1. LIZA 2. gastroparesis 3. htn 4. vomiting 5. proteinuria Plan - repeat labs in am - can stop fluids once tolerating diet - GI input appreciated - LIZA likely from dehydration from vomiting - will need outpt follow up
--- NOTE | 2019-11-11 13:10 | PN ---
Progress Note, Physician Chief Complaint: Abdominal pain Gastroparesis Drug abuse UTI History of Present Illness: NAD Pain 6/10 Nausea continues Appetite decreased Seen by GI - Current Medication List Current Medications: Active Medications Amlodipine Besylate (Norvasc -) 5 mg PO DAILY [facility] Last Admin: 11/11/19 09:23 Dose: 5 mg Documented by: Heparin Sodium (Porcine) (Heparin -) 5,000 unit SQ TID [facility] Last Admin: 11/11/19 06:09 Dose: Not Given Documented by: Hydromorphone HCl (Dilaudid Vial -) 2 mg IVPB Q6H PRN PRN Reason: PAIN LEVEL 7 - 10 Last Admin: 11/11/19 08:16 Dose: 2 mg Documented by: Potassium Chloride 10 meq/ (Sodium Chloride) 1,005 mls @ 42 mls/hr IVPB Q24H [facility] Last Admin: 11/10/19 16:43 Dose: 42 mls/hr Documented by: Insulin Aspart (Novolog Vial Sliding Scale -) 1 vial SQ ACHS [facility]; Protocol Last Admin: 11/11/19 11:59 Dose: Not Given Documented by: Labetalol HCl (Normodyne -) 200 mg PO BID [facility] Last Admin: 11/11/19 09:23 Dose: 200 mg Documented by: Metoclopramide HCl (Reglan -) 10 mg PO TIDAC [facility] Last Admin: 11/11/19 11:59 Dose: 10 mg Documented by: Ondansetron HCl (Zofran Injection) 4 mg IVPUSH Q8H PRN PRN Reason: NAUSEA Last Admin: 11/09/19 23:14 Dose: 4 mg Documented by: Polyethylene Glycol (Miralax (For Daily Use) -) 17 gm PO TID [facility] Last Admin: 11/11/19 06:06 Dose: Not Given Documented by: Senna (Senna -) 2 tab PO HS PRN PRN Reason: CONSTIPATION - Objective Vital Signs: Vital Signs Temperature 98.5 F 11/11/19 09:00 Pulse Rate 90 11/11/19 09:00 Respiratory Rate 20 11/11/19 09:00 Blood Pressure 124/94 11/11/19 09:00 O2 Sat by Pulse Oximetry (%) 100 11/11/19 09:00 Constitutional: Yes: Well Nourished, No Distress, Calm Cardiovascular: Yes: Regular Rate and Rhythm Respiratory: Yes: Regular, CTA Bilaterally Gastrointestinal: Yes: Normal Bowel Sounds, Soft, Tenderness, Epigastrium (mild) Genitourinary: Yes: WNL Musculoskeletal: Yes: WNL Extremities: Yes: Amputation (RBKA) Edema: No Peripheral Pulses WNL: Yes Neurological: Yes: Alert, Oriented Psychiatric: Yes: Alert, Oriented Labs: CBC, BMP 11/10/19 08:45 11/10/19 08:45 INR, PTT INR 1.03 (0.83-1.09) 11/06/19 13:50 Problem List - Problems (1) Drug abuse Assessment/Plan: -Urine tox + MDMA + Opioids -Consult for detox -Pt denies any drug use Problems reviewed: Yes Code(s): F19.10 - OTHER PSYCHOACTIVE SUBSTANCE ABUSE, UNCOMPLICATED (2) UTI (urinary tract infection), uncomplicated Assessment/Plan: -Asymptomatic -No Treatment indicated at this time Problems reviewed: Yes Code(s): N39.0 - URINARY TRACT INFECTION, SITE NOT SPECIFIED (3) LIZA (acute kidney injury) Assessment/Plan: -2/2 to dehydration -Continue IVF Problems reviewed: Yes Code(s): N17.9 - ACUTE KIDNEY FAILURE, UNSPECIFIED (4) Abdominal pain Assessment/Plan: -Improved -GI on board -tolerating full liquid diet -Dilaudid for pain Problems reviewed: Yes Code(s): R10.9 - UNSPECIFIED ABDOMINAL PAIN Qualifiers: Abdominal location: unspecified location Qualified Code(s): R10.9 - Unspecified abdominal pain (5) Diabetes Assessment/Plan: -A1c at 6.9 -BGM AC HS -ISS -Diabetic low sodium full liquid diet Problems reviewed: Yes Code(s): E11.9 - TYPE 2 DIABETES MELLITUS WITHOUT COMPLICATIONS (6) Elevated lactic acid level Assessment/Plan: -Seen by ID -Afebrile -Likely 2/2 to vomiting Problems reviewed: Yes Code(s): R79.89 - OTHER SPECIFIED ABNORMAL FINDINGS OF BLOOD CHEMISTRY (7) HTN (hypertension) Assessment/Plan: -improved -Continue labetalol + amlodipine -Ideally needs to be on ACEI or ARB- can be started outpatient Problems reviewed: Yes Code(s): I10 - ESSENTIAL (PRIMARY) HYPERTENSION (8) Diabetic gastroparesis Assessment/Plan: -Continue reglan 10 mg po TID [facility] -Continue full liquid diet -D/C IVF -PPI Problems reviewed: Yes Code(s): 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 Assessment/Plan See problem list
[2019-11-11] MEDS: PANTOPRAZOLE 40 MG TABLET PO SCH (14:02)
[2019-11-11 15:55] LABS: BASO % 0.4 % (0-2.0); EOS % 2.5 % (0-4.5); HEMATOCRIT 27.5 % (35.4-49); HEMOGLOBIN 8.9 GM/dL (11.7-16.9); LYMPH % 29.1 % (8-40); MCH 24.7 pg (25.7-33.7); MCHC 32.2 g/dl (32.0-35.9); MEAN CELL VOLUME 76.7 fl (80-96); MEAN PLT VOLUME 8.1 fl (7.5-11.1); MONO % 8.2 % (3.8-10.2); NEUT % 59.8 % (42.8-82.8); PLATELET COUNT 326 K/MM3 (134-434); RBC 3.58 M/mm3 (4.00-5.60); RDW 18.9 % (11.9-15.9); WHITE BLOOD COUNT 7.9 K/mm3 (4.0-10.0)
[2019-11-11 16:35] LABS: BILIRUBIN,TOTAL 0.2 mg/dL (0.2-1); BLOOD UREA NITROGEN 11.5 mg/dL (7-18); CALCIUM 8.9 mg/dL (8.5-10.1); CREATININE 1.3 mg/dL (0.55-1.3); POTASSIUM 4.4 mmol/L (3.5-5.1); TOT PROT 6.8 g/dl (6.4-8.2)
[2019-11-12] MEDS: HYDROmorphone HCl 2 MG/ML VIAL IVPB PRN ×2 (02:47→08:52)
[2019-11-12] MEDS: POLYETHYLENE GLYCOL 3350 119 GM BTL PO SCH ×2 (06:10→13:59)
[2019-11-12] MEDS: HEPARIN NA (PORCINE) 5,000 UNITS/ML 1ML VIAL SQ SCH ×2 (06:10→13:59)
[2019-11-12] MEDS: METOCLOPRAMIDE HCL 10 MG TABLET (FP) PO SCH ×2 (06:13→12:26)
[2019-11-12] MEDS: INSULIN SLIDING SCALE (NOVOLOG) 1 VIAL SQ SCH ×2 (06:13→12:14)
[2019-11-12 08:52] VITALS: BP 149/83; PULSE 73; TEMP 98.6
[2019-11-12] MEDS: amLODIPine BESYLATE 5 MG TABLET (FP) PO SCH ×2 (08:57→12:14)
[2019-11-12] MEDS: LABETALOL HCL 200 MG TABLET (FP) PO SCH ×2 (08:57→12:13)
[2019-11-12] MEDS: PANTOPRAZOLE 40 MG TABLET PO SCH ×2 (08:57→12:14)
--- NOTE | 2019-11-12 10:23 | PN ---
Progress Note, Physician Chief Complaint: Abdominal pain Gastroparesis Drug abuse UTI History of Present Illness: NAD Pain 6/10 Nausea continues Appetite decreased Seen by GI - Current Medication List Current Medications: Active Medications Amlodipine Besylate (Norvasc -) 5 mg PO DAILY [facility] Last Admin: 11/12/19 08:57 Dose: 5 mg Documented by: Heparin Sodium (Porcine) (Heparin -) 5,000 unit SQ TID [facility] Last Admin: 11/12/19 06:10 Dose: Not Given Documented by: Hydromorphone HCl (Dilaudid Vial -) 2 mg IVPB Q6H PRN PRN Reason: PAIN LEVEL 7 - 10 Last Admin: 11/12/19 08:52 Dose: 2 mg Documented by: Insulin Aspart (Novolog Vial Sliding Scale -) 1 vial SQ [facility]; Protocol Last Admin: 11/12/19 06:13 Dose: Not Given Documented by: Labetalol HCl (Normodyne -) 200 mg PO BID [facility] Last Admin: 11/12/19 08:57 Dose: 200 mg Documented by: Metoclopramide HCl (Reglan -) 10 mg PO TIDAC [facility] Last Admin: 11/12/19 06:13 Dose: 10 mg Documented by: Ondansetron HCl (Zofran Injection) 4 mg IVPUSH Q8H PRN PRN Reason: NAUSEA Last Admin: 11/09/19 23:14 Dose: 4 mg Documented by: Pantoprazole Sodium (Protonix -) 40 mg PO DAILY [facility] Last Admin: 11/12/19 08:57 Dose: 40 mg Documented by: Polyethylene Glycol (Miralax (For Daily Use) -) 17 gm PO TID [facility] Last Admin: 11/12/19 06:10 Dose: Not Given Documented by: Senna (Senna -) 2 tab PO HS PRN PRN Reason: CONSTIPATION - Objective Vital Signs: Vital Signs Temperature 98.6 F 11/12/19 08:51 Pulse Rate 73 11/12/19 08:51 Respiratory Rate 18 11/12/19 08:51 Blood Pressure 149/83 11/12/19 08:51 O2 Sat by Pulse Oximetry (%) 99 11/12/19 08:51 Constitutional: Yes: Well Nourished, No Distress, Calm Cardiovascular: Yes: Regular Rate and Rhythm Respiratory: Yes: Regular, CTA Bilaterally Gastrointestinal: Yes: Normal Bowel Sounds, Soft, Tenderness, Epigastrium (improved) Genitourinary: Yes: WNL Musculoskeletal: Yes: WNL Extremities: Yes: Amputation (RLE) Edema: No Peripheral Pulses WNL: Yes Neurological: Yes: Alert, Oriented Psychiatric: Yes: Alert, Oriented Labs: CBC, BMP 11/11/19 14:30 11/11/19 14:30 INR, PTT INR 1.03 (0.83-1.09) 11/06/19 13:50 Problem List - Problems (1) Drug abuse Assessment/Plan: -Urine tox + MDMA + Opioids -Consult for detox -Pt denies any drug use Problems reviewed: Yes Code(s): F19.10 - OTHER PSYCHOACTIVE SUBSTANCE ABUSE, UNCOMPLICATED (2) UTI (urinary tract infection), uncomplicated Assessment/Plan: -Asymptomatic -No Treatment indicated at this time Problems reviewed: Yes Code(s): N39.0 - URINARY TRACT INFECTION, SITE NOT SPECIFIED (3) LIZA (acute kidney injury) Assessment/Plan: -2/2 to dehydration -resolved Problems reviewed: Yes Code(s): N17.9 - ACUTE KIDNEY FAILURE, UNSPECIFIED (4) Abdominal pain Assessment/Plan: -Improved -GI on board -D/C Dilaudid -No Vomiting or diarrhea -mild nausea Problems reviewed: Yes Code(s): R10.9 - UNSPECIFIED ABDOMINAL PAIN Qualifiers: Abdominal location: unspecified location Qualified Code(s): R10.9 - Unspecified abdominal pain (5) Diabetes Assessment/Plan: -A1c at 6.9 -BGM AC HS -ISS -Diabetic low sodium full liquid diet Problems reviewed: Yes Code(s): E11.9 - TYPE 2 DIABETES MELLITUS WITHOUT COMPLICATIONS (6) Elevated lactic acid level Assessment/Plan: -Seen by ID -Afebrile -Likely 2/2 to vomiting Problems reviewed: Yes Code(s): R79.89 - OTHER SPECIFIED ABNORMAL FINDINGS OF BLOOD CHEMISTRY (7) HTN (hypertension) Assessment/Plan: -improved -Continue labetalol + amlodipine -Ideally needs to be on ACEI or ARB- can be started outpatient Problems reviewed: Yes Code(s): I10 - ESSENTIAL (PRIMARY) HYPERTENSION (8) Diabetic gastroparesis Assessment/Plan: -Continue reglan 10 mg po TID AC -Low sodium diet -D/C IVF -PPI Problems reviewed: Yes Code(s): 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 Assessment/Plan See problem list
--- NOTE | 2019-11-12 11:35 | PN.GI ---
GI Progress Note Subjective: DOING BETTER - NO NEW COMPLAINTS - Objective Vital Signs: Vital Signs Temperature 98.6 F 11/12/19 08:51 Pulse Rate 73 11/12/19 08:51 Respiratory Rate 18 11/12/19 08:51 Blood Pressure 149/83 11/12/19 08:51 O2 Sat by Pulse Oximetry (%) 99 11/12/19 08:51 Constitutional: Well Nourished, No Distress Cardiovascular: Yes: WNL, Regular Rate and Rhythm Respiratory: Yes: WNL, Regular, CTA Bilaterally Gastrointestinal Inspection: Yes: WNL ...Auscultate: Yes: Normoactive Bowel Sounds Extremities: Yes: WNL Edema: No Labs: CBC, BMP 11/11/19 14:30 11/11/19 14:30 INR, PTT INR 1.03 (0.83-1.09) 11/06/19 13:50 Problem List - Problems (1) Abdominal pain Assessment/Plan: DIET TOLERATED BOWEL REGIMEN OUTPT GI F/U FOR FURTHER MANAGEMENT Code(s): R10.9 - UNSPECIFIED ABDOMINAL PAIN Qualifiers: Abdominal location: unspecified location Qualified Code(s): R10.9 - Unspecified abdominal pain (2) Diabetic gastroparesis Code(s): 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
[2019-11-12] MEDS ORDERED: ACETAMINOPHEN 325 MG TABLET (FP) PO PRN (11:38)
[2019-11-12] MEDS ORDERED: SENNOSIDES 8.6MG TABLET (FP) PO ONE (13:45)
[2019-11-12] MEDS: ONDANSETRON 4 MG/2 ML VIAL IVPUSH PRN (14:00)
--- NOTE | 2019-11-12 17:27 | PN ---
Progress Note, Physician History of Present Illness: Pt seen and examined at bedside. He has not vomited. He denies shortness of breath. - Objective Vital Signs: Vital Signs Temperature 98.6 F 11/12/19 08:51 Pulse Rate 73 11/12/19 08:51 Respiratory Rate 18 11/12/19 08:51 Blood Pressure 149/83 11/12/19 08:51 O2 Sat by Pulse Oximetry (%) 99 11/12/19 10:00 Constitutional: Yes: Calm Eyes: Yes: Conjunctiva Clear HENT: Yes: Atraumatic Neck: Yes: Supple Cardiovascular: Yes: S1, S2 Respiratory: Yes: CTA Bilaterally Gastrointestinal: Yes: Normal Bowel Sounds, Soft Genitourinary: Yes: WNL Edema: No Neurological: Yes: Oriented Psychiatric: Yes: Oriented Labs: CBC, BMP 11/11/19 14:30 11/11/19 14:30 INR, PTT INR 1.03 (0.83-1.09) 11/06/19 13:50 Problem List - Problems (1) LIZA (acute kidney injury) Code(s): N17.9 - ACUTE KIDNEY FAILURE, UNSPECIFIED Assessment/Plan Current Medications Generic Name Dose Route Start Last Admin Trade Name Freq PRN Reason Stop Dose Admin Amlodipine Besylate 5 mg 11/07/19 10:00 11/11/19 09:23 Norvasc - PO 5 mg DAILY LUCY Administration Heparin Sodium (Porcine) 5,000 unit 11/07/19 14:00 11/11/19 06:09 Heparin - SQ Not Given TID LUCY Hydromorphone HCl 2 mg 11/10/19 19:53 11/11/19 08:16 Dilaudid Vial - IVPB 2 mg Q6H PRN Administration PAIN LEVEL 7 - 10 Potassium Chloride 10 meq/ 1,005 mls @ 42 mls/hr 11/07/19 16:45 11/10/19 16:43 Sodium Chloride IVPB 42 mls/hr Q24H LUCY Administration Insulin Aspart 1 vial 11/07/19 11:00 11/11/19 06:09 Novolog Vial Sliding Scale - SQ Not Given ACHS LUCY Protocol Labetalol HCl 200 mg 11/07/19 10:00 11/11/19 09:23 Normodyne - PO 200 mg BID LUCY Administration Metoclopramide HCl 10 mg 11/10/19 11:00 11/11/19 06:10 Reglan - PO 10 mg TIDAC LUCY Administration Ondansetron HCl 4 mg 11/08/19 10:09 11/09/19 23:14 Zofran Injection IVPUSH 4 mg Q8H PRN Administration NAUSEA Polyethylene Glycol 17 gm 11/07/19 14:00 11/11/19 06:06 Miralax (For Daily Use) - PO Not Given TID LUCY Senna 2 tab 11/10/19 23:12 Senna - PO HS PRN CONSTIPATION Impression 1. LIZA 2. gastroparesis 3. htn 4. vomiting 5. proteinuria Plan - no new labs - renal function had stabilized - pt tolerating diet - stable off of fluids
== END 2019-11-12 15:27 | disposition home or self-care (01) | DRG 74 ==
LOC: JER 11:44 → SUPCPDRO 11:44 → JERBED 16:28 → J8W 21:20
PROVIDERS: ADMIT Internal Medicine; ATTEND Family Medicine
DX: E11.43 Type 2 diabetes mellitus with diabetic autonomic (poly)neuropathy (principal); L97.929 Non-pressure chronic ulcer of unspecified part of left lower leg with unspecified severity; N39.0 Urinary tract infection, site not specified; E87.2 Acidosis; N17.9 Acute kidney failure, unspecified; F11.10 Opioid abuse, uncomplicated; F16.10 Hallucinogen abuse, uncomplicated; E11.621 Type 2 diabetes mellitus with foot ulcer; E11.51 Type 2 diabetes mellitus with diabetic peripheral angiopathy without gangrene; I16.0 Hypertensive urgency; K31.84 Gastroparesis; R11.2 Nausea with vomiting, unspecified; E86.0 Dehydration; D50.9 Iron deficiency anemia, unspecified; K59.09 Other constipation; R00.0 Tachycardia, unspecified; R10.9 Unspecified abdominal pain; Z89.511 Acquired absence of right leg below knee; Z86.69 Personal history of other diseases of the nervous system and sense organs
CPT/HCPCS: 36415; 71045-TC-FY; 74176-TC; 80053; 80307; 81003; 82550; 82553; 82565; 82728; 82962; 83036; 83540; 83550; 83605; 83735; 84100; 84110; 84156; 85025; 85027; 85044; 85610; 85730; 87086; 87186; 93005; 93010; 99285-25; G0480; J0131; J0735; J1644; J1756; Q0162; U0003

== ENCOUNTER 2019-12-04 17:06 | Inpatient (IN) | payer MEDICARE, OTHER ==
--- NOTE | 2019-12-04 17:54 | PDOC ---
History of Present Illness - General Chief Complaint: Pain Stated Complaint: BONE FLARE UP Time Seen by Provider: 12/04/19 17:21 History Source: Patient Exam Limitations: No Limitations - History of Present Illness Initial Comments: 12/04/19 17:53 Daniele Laird is a 54M with PMH gastroparesis presenting with red-colored vomiting. Past History - Medical History Allergies/Adverse Reactions: Allergies Allergy/AdvReac Type Severity Reaction Status Date / Time No Known Allergies Allergy Verified 12/04/19 17:17 Home Medications: Ambulatory Orders Metformin HCl [Glucophage] 500 mg PO BID 07/02/19 Metoclopramide HCl [Reglan] 10 mg PO ASDIR 07/02/19 Acetaminophen [Tylenol .Regular Strength -] 650 mg PO Q4H PRN tablet 11/12/19 Amlodipine Besylate [Norvasc -] 5 mg PO DAILY #30 tablet 11/12/19 Labetalol HCl [Normodyne -] 200 mg PO BID #60 tablet 11/12/19 Metoclopramide HCl [Reglan -] 10 mg PO TIDAC #90 tablet 11/12/19 Pantoprazole Sodium [Protonix -] 40 mg PO DAILY #30 tablet.ec 11/12/19 Polyethylene Glycol 3350 [Miralax 119 gm Btl -] 17 gm PO TID #1 bottle 11/12/19 Sennosides [Senna -] 2 tab PO HS PRN #60 tablet 11/12/19 COPD: No Diabetes: Yes GI Disorders: Yes (GASTROPARESIS) - Psycho-Social/Smoking History Smoking History: Never smoked Have you smoked in the past 12 months: No Information on smoking cessation initiated: No - Substance Abuse Hx (Audit-C & DAST Scrn) How often the patient has a drink containing alcohol: Never Score: In Men: 4 or > Positive; In Women: 3 or > Positive: 0 Screen Result (Pos requires Nsg. Audit-10AR): Negative In the last yr the pt used illegal drug/Rx for NonMed reason: No Score: Yes response is considered Positive: 0 Screen Result (Positive result requires Nsg. DAST-10): Negative *Physical Exam - Vital Signs Last Vital Signs Temp Pulse Resp BP Pulse Ox 98.3 F 113 H 19 136/95 100 12/04/19 17:13 12/04/19 17:13 12/04/19 17:13 12/04/19 17:13 12/04/19 17:13 Medical Decision Making - Medical Decision Making 12/04/19 17:53 ... Discharge - Discharge Information Problems reviewed: Yes - Follow up/Referral Referrals: Rosalind Giles MD [Primary Care Provider] - - Patient Discharge Instructions - Post Discharge Activity
--- NOTE | 2019-12-04 18:00 | PDOC ---
History of Present Illness - General Chief Complaint: Pain Stated Complaint: BONE FLARE UP Time Seen by Provider: 12/04/19 17:21 History Source: Patient Exam Limitations: No Limitations - History of Present Illness Initial Comments: 12/04/19 18:00 54yo M with a PMH of NIDDM, HTN, gastroparesis, R below knee amputation presenting w 1d nausea, dark brown/black emesis, generalized body aches. Admitted numerous times in the past, most recently 11/05-11/11 for similar intractable vomiting attributed to diabetic gastroparesis. Pt asking for anti- nausea and dilaudid to alleviate symptoms. Porphyria considered but never resulted d/t tainted specimen (urine must be sent in dark contained d/t sensitivity to light. Denies NSAID/anticoagulation use, denies alcohol/illicit drug use. Denies fever, cough, SOB, urinary/bowel mvmt changes. Past History - Medical History Allergies/Adverse Reactions: Allergies Allergy/AdvReac Type Severity Reaction Status Date / Time No Known Allergies Allergy Verified 12/04/19 17:17 Home Medications: Ambulatory Orders Metformin HCl [Glucophage] 500 mg PO BID 07/02/19 Acetaminophen [Tylenol .Regular Strength -] 650 mg PO Q4H PRN tablet 11/12/19 Amlodipine Besylate [Norvasc -] 5 mg PO DAILY #30 tablet 11/12/19 Labetalol HCl [Normodyne -] 200 mg PO BID #60 tablet 11/12/19 Metoclopramide HCl [Reglan -] 10 mg PO TIDAC #90 tablet 11/12/19 Pantoprazole Sodium [Protonix -] 40 mg PO DAILY #30 tablet.ec 11/12/19 Polyethylene Glycol 3350 [Miralax 119 gm Btl -] 17 gm PO TID #1 bottle 11/12/19 Sennosides [Senna -] 2 tab PO HS PRN #60 tablet 11/12/19 COPD: No Diabetes: Yes GI Disorders: Yes (GASTROPARESIS) - Psycho-Social/Smoking History Smoking History: Never smoked Have you smoked in the past 12 months: No Information on smoking cessation initiated: No - Substance Abuse Hx (Audit-C & DAST Scrn) How often the patient has a drink containing alcohol: Never Score: In Men: 4 or > Positive; In Women: 3 or > Positive: 0 Screen Result (Pos requires Nsg. Audit-10AR): Negative In the last yr the pt used illegal drug/Rx for NonMed reason: No Score: Yes response is considered Positive: 0 Screen Result (Positive result requires Nsg. DAST-10): Negative Review of Systems - Review of Systems Constitutional: No: Chills, Fever HEENTM: No: Eye Pain, Ear Discharge Respiratory: No: Cough, Shortness of Breath Cardiac (ROS): No: Chest Pain, Lightheadedness ABD/GI: Yes: Nausea, Vomiting. No: Constipated, Diarrhea, Rectal Bleeding : No: Burning, Dysuria Musculoskeletal: Yes: Muscle Pain. No: Back Pain Integumentary: No: Bruising, Dryness Neurological: No: Headache, Seizure Psychiatric: No: Anxiety, Depression Endocrine: No: Intolerance to Cold, Intolerance to Heat Hematologic/Lymphatic: No: Anemia, Easy Bleeding *Physical Exam - Vital Signs Last Vital Signs Temp Pulse Resp BP Pulse Ox 98.3 F 113 H 19 136/95 100 12/04/19 17:13 12/04/19 17:13 12/04/19 17:13 12/04/19 17:13 12/04/19 17:13 - Physical Exam General Appearance: Yes: Nourished, Appropriately Dressed, Moderate Distress HEENT: positive: EOMI, SOCORRO, Normal Voice, Hearing Grossly Normal. negative: Scleral Icterus (R), Scleral Icterus (L) Respiratory/Chest: positive: Lungs Clear, Normal Breath Sounds. negative: Chest Tender, Respiratory Distress, Crackles, Rales, Rhonchi, Stridor, Wheezing Cardiovascular: positive: Regular Rhythm, S1, S2, Tachycardia. negative: Murmur Gastrointestinal/Abdominal: positive: Normal Bowel Sounds, Flat, Soft. negative: Tender, Organomegaly Extremity: positive: Other (R BKA). negative: Pedal Edema Integumentary: positive: Normal Color, Dry, Warm. negative: Rash Neurologic: positive: Fully Oriented, Alert, Normal Mood/Affect, Normal Response, Responsive Medical Decision Making - Medical Decision Making 12/04/19 18:48 EKG --- 54yo M with a PMH of NIDDM, HTN, gastroparesis, R below knee amputation presenting w 1d nausea, dark brown/black emesis, generalized body aches. GI bleed vs gastritis Given 0.5 dilaudid, reglan, 1L NS, protonix Anticipate admit m/s for intractable vomiting Signed out to night team - pending lab results, EKG, symptom control - redraw coags specimen Discharge - Discharge Information Problems reviewed: Yes Clinical Impression/Diagnosis: Vomiting Qualifiers: Vomiting type: unspecified Vomiting Intractability: non-intractable Nausea presence: with nausea Qualified Code(s): R11.2 - Nausea with vomiting, unspecified Condition: Guarded - Follow up/Referral Referrals: Rosalind Giles MD [Primary Care Provider] - - Patient Discharge Instructions - Post Discharge Activity
[2019-12-04] MEDS ORDERED: SODIUM CHLORIDE 0.9% 500 ML INFUS.BAG IV ONE ×2 (18:13→20:51)
[2019-12-04] MEDS ORDERED: METOCLOPRAMIDE HCL INJECTION 10 MG/2 ML VIAL IVPB ONE (18:14)
[2019-12-04] MEDS ORDERED: HYDROmorphone HCL CARPU-JECT 2 MG/1 ML DISP.SYRIN IVPUSH ONE ×2 (18:15→20:57)
[2019-12-04] MEDS ORDERED: HYDROmorphone HCl 2 MG/ML VIAL ONE ×3 (18:36→22:28)
[2019-12-04] MEDS ORDERED: METOCLOPRAMIDE HCL INJECTION 10 MG/2 ML VIAL ONE ×2 (18:36→20:57)
[2019-12-04] MEDS ORDERED: PANTOPRAZOLE SODIUM 40 MG VIAL IVPUSH ONE (18:44)
[2019-12-04] MEDS ORDERED: PANTOPRAZOLE SODIUM 40 MG/100 ML BAG IVPB ONE (19:09)
[2019-12-04 19:24] LABS: BASO % 0.6 % (0-2.0); EOS % 1.8 % (0-4.5); HEMATOCRIT 34.2 % (35.4-49); HEMOGLOBIN 10.9 GM/dL (11.7-16.9); LYMPH % 26.2 % (8-40); MCH 24.7 pg (25.7-33.7); MCHC 31.7 g/dl (32.0-35.9); MEAN CELL VOLUME 77.9 fl (80-96); MEAN PLT VOLUME 8.9 fl (7.5-11.1); MONO % 6.4 % (3.8-10.2); PLATELET COUNT 286 K/MM3 (134-434); RBC 4.39 M/mm3 (4.00-5.60); WHITE BLOOD COUNT 9.6 K/mm3 (4.0-10.0)
--- NOTE | 2019-12-04 19:44 | PDOC ---
*Physical Exam - Vital Signs Last Vital Signs Temp Pulse Resp BP Pulse Ox 98.3 F 109 H 18 163/95 99 12/04/19 17:13 12/04/19 19:00 12/04/19 19:00 12/04/19 19:00 12/04/19 19:09 ED Treatment Course - LABORATORY CBC & Chemistry Diagram: 12/04/19 18:30 12/04/19 18:30 - ADDITIONAL ORDERS Additional order review: 12/04/19 18:30 RBC 4.39 MCV 77.9 L MCHC 31.7 L RDW 21.0 H MPV 8.9 Neutrophils % 65.0 Lymphocytes % 26.2 Monocytes % 6.4 Eosinophils % 1.8 Basophils % 0.6 - Medications Given in the ED: ED Medications Discontinued Medications Generic Name Dose Route Start Last Admin Trade Name Freq PRN Reason Stop Dose Admin Hydromorphone HCl 0.5 mg 12/04/19 18:15 12/04/19 18:50 Dilaudid Injection - IVPUSH 12/04/19 18:16 0.5 mg ONCE ONE Administration Metoclopramide HCl 10 mg 12/04/19 18:14 12/04/19 18:30 Reglan Injection - IVPB 12/04/19 18:15 10 mg ONCE ONE Administration Pantoprazole Sodium 40 mg 12/04/19 18:44 12/04/19 19:16 Protonix Iv IVPUSH 12/04/19 18:45 40 mg ONCE ONE Administration Sodium Chloride 1,000 ml 12/04/19 18:13 12/04/19 18:49 Normal Saline - IV 12/04/19 18:14 1,000 ml ONCE ONE Administration Medical Decision Making - Medical Decision Making 54M with a PMH of NIDDM, HTN, gastroparesis, R below knee amputation presenting w 1d nausea, dark brown/black emesis, generalized body aches. GI bleed vs gastritis. Given 0.5 dilaudid, reglan, 1L NS, protonix Anticipate admit for intractable vomiting Signed from day team - pending lab results, EKG, symptom control - redraw coags specimen - Trop negative - Hgb 10.9 - Creatinine 1.9 --> 500mL NS --> recheck CMP -Given 2nd dose reglan -Patient was noted to have O2 saturation in 80s, but respiratory rate was sufficient, he was put on supplemental O2 and O2 sat increased to 100%. Patient was demanding repeat dose of dilaudid, and after oriental orthodox of O2 sat, was given 0.25mg dilaudid -Admitted for intractable vomiting and LIZA Discharge - Discharge Information Problems reviewed: Yes Clinical Impression/Diagnosis: LIZA (acute kidney injury) Vomiting Qualifiers: Vomiting type: unspecified Vomiting Intractability: intractable Nausea presence: with nausea Qualified Code(s): R11.2 - Nausea with vomiting, unspecified Intractable vomiting Qualifiers: Vomiting type: unspecified Nausea presence: unspecified Qualified Code(s): R11.10 - Vomiting, unspecified Condition: Guarded - Admission Yes - Follow up/Referral Referrals: Rosalind Giles MD [Primary Care Provider] - - Patient Discharge Instructions - Post Discharge Activity
[2019-12-04 19:50] LABS: ALK PHOS 128 U/L (45-117); ANION GAP 13 MMOL/L (8-16); BILIRUBIN,TOTAL 0.5 mg/dL (0.2-1); BLOOD UREA NITROGEN 15.5 mg/dL (7-18); CALCIUM 9.8 mg/dL (8.5-10.1); CHLORIDE 105 mmol/L (98-107); CO2 21 mmol/L (21-32); CREATININE 1.8 mg/dL (0.55-1.3); GLUCOSE,RANDOM 124 mg/dL (74-106); POTASSIUM 4.2 mmol/L (3.5-5.1); SGOT/AST 23 U/L (15-37); SGPT/ALT 25 U/L (13-61); SODIUM 140 mmol/L (136-145); TOT PROT 8.5 g/dl (6.4-8.2)
[2019-12-04 19:58] LABS: INR 0.95 (0.83-1.09); PROTHROMBIN TIME (PATIENT) 11.2 SEC (9.7-13.0)
[2019-12-04 20:01] LABS: ACTIVATED PTT 31.8 SECONDS (25.2-36.5)
[2019-12-04 20:29] LABS: ANISOCYTOSIS 2+; PLATELET ESTIMATE ADEQUATE
[2019-12-04] MEDS ORDERED: METOCLOPRAMIDE HCL INJECTION 10 MG/2 ML VIAL IVPUSH ONE (20:51)
[2019-12-04] MEDS ORDERED: SODIUM CHLORIDE 1,000 ML IV STA (20:59)
[2019-12-04] MEDS ORDERED: HYDROmorphone HCl 2 MG/ML VIAL IVPB PRN (22:05)
[2019-12-04] MEDS ORDERED: SENNOSIDES 8.6MG TABLET (FP) PO PRN (22:07)
--- NOTE | 2019-12-04 22:14 | HP ---
CHIEF COMPLAINT: here with nausea/vomiting and body aches for the past day. PCP:Dr. Shaikh HISTORY OF PRESENT ILLNESS: 54 year old male with past medical history of NIDDM, osteomyelitis, PVD, s/p right BKA (01/2019), hypertension and gastroparesis who presents with complaints of weakness, body aches, nausea,vomiting and diffuse abdominal pain for 1 day. Patient states he has these episodes occasionally and he was here approximately 1 month ago with the same complaints and he was feeling better when he was discharged. His most recent hospitalization is 11/05-11/11 for similar intractable vomiting, he was evaluated by Gastroenterology and attributed symptoms to gastroparesis. Patient himself is requesting IV anti-nausea and IV Dilaudid q 4 hours. He reports feeling better after receiving IV dilaudid and IV reglan in the ER. He denies chest pain, shortness of breath, dizziness, chills, fever, cough, dysuria or recent sick visits or travel. On review of hospitalization /chart review on 05/2019 patient also requested IV dilaudid and noted to get "distressed" as he was not getting IV dilaudid as he wanted dilaudid IV push every 3 hours and verbalized "because of his race, he is being treated as a druggie, a step child, and a basket case." ER course notable for LIZA- creatinine 1.8, receiving IVF with normal saline. Hypertension- SBP 160-170's Tachycardia- heart rate 100's ? Drug seeking behavior for IV Dilaudid Recent Travel: denies PAST MEDICAL HISTORY: NIDDM Hypertension gastroparesis osteomyelitis PVD PAST SURGICAL HISTORY: right AKA 01/2019 Social History: Smoking:no Alcohol:no Drugs:no Family History: noncontributory Allergies No Known Allergies Allergy (Verified 12/04/19 17:17) HOME MEDICATIONS: Home Medications Medication Instructions Recorded Metformin HCl [Glucophage] 500 mg PO BID 07/02/19 Acetaminophen [Tylenol .Regular 650 mg PO Q4H PRN tablet 11/12/19 Strength -] Amlodipine Besylate [Norvasc -] 5 mg PO DAILY #30 tablet 11/12/19 Labetalol HCl [Normodyne -] 200 mg PO BID #60 tablet 11/12/19 Metoclopramide HCl [Reglan -] 10 mg PO TIDAC #90 tablet 11/12/19 Pantoprazole Sodium [Protonix -] 40 mg PO DAILY #30 tablet.ec 11/12/19 Polyethylene Glycol 3350 [Miralax 17 gm PO TID #1 bottle 11/12/19 119 gm Btl -] Sennosides [Senna -] 2 tab PO HS PRN #60 tablet 11/12/19 REVIEW OF SYSTEMS CONSTITUTIONAL: Absent: fever, chills, diaphoresis, generalized weakness, malaise, loss of appetite, weight change HEENT: Absent: rhinorrhea, nasal congestion, throat pain, throat swelling, difficulty swallowing, mouth swelling, ear pain, eye pain, visual changes CARDIOVASCULAR: Absent: chest pain, syncope, palpitations, irregular heart rate, lightheadedness, peripheral edema RESPIRATORY: Absent: cough, shortness of breath, dyspnea with exertion, orthopnea, wheezing, stridor, hemoptysis GASTROINTESTINAL: Absent: abdominal pain, abdominal distension, nausea, vomiting, diarrhea, constipation, melena, hematochezia GENITOURINARY: Absent: dysuria, frequency, urgency, hesitancy, hematuria, flank pain, genital pain MUSCULOSKELETAL: Absent: myalgia, arthralgia, joint swelling, back pain, neck pain SKIN: Absent: rash, itching, pallor HEMATOLOGIC/IMMUNOLOGIC: Absent: easy bleeding, easy bruising, lymphadenopathy, frequent infections ENDOCRINE: Absent: unexplained weight gain, unexplained weight loss, heat intolerance, cold intolerance NEUROLOGIC: Absent: headache, focal weakness or paresthesias, dizziness, unsteady gait, seizure, mental status changes, bladder or bowel incontinence PSYCHIATRIC: Absent: anxiety, depression, suicidal or homicidal ideation, hallucinations. PHYSICAL EXAMINATION Vital Signs - 24 hr 12/04/19 12/04/19 12/04/19 17:13 19:00 19:09 Temperature 98.3 F Pulse Rate 113 H Pulse Rate [ 109 H Apical] Respiratory 19 18 Rate Blood Pressure 136/95 Blood Pressure [Left Arm] Blood Pressure 163/95 [Right Arm] O2 Sat by Pulse 100 99 99 Oximetry (%) 12/04/19 21:03 Temperature Pulse Rate Pulse Rate [ 102 H Apical] Respiratory 16 Rate Blood Pressure Blood Pressure 172/98 H [Left Arm] Blood Pressure [Right Arm] O2 Sat by Pulse 98 Oximetry (%) General no acute distress Vital signs reviewed afebrile blood pressure and heart rate noted Neuro awake alert oriented to person place and time moving all extremities Neck no JVD Lungs CTA nonlabored breathing effort no rales no wheezing no use of accessory muscles Heart s1s2 rate regular tachycardic Abdomen soft nontender nondistended Extremities warm to touch no pitting edema, right AKA noted Mood calm Laboratory Results - last 24 hr 12/04/19 12/04/19 12/04/19 18:30 18:30 18:30 WBC 9.6 RBC 4.39 Hgb 10.9 L Hct 34.2 L D MCV 77.9 L MCH 24.7 L MCHC 31.7 L RDW 21.0 H Plt Count 286 MPV 8.9 Absolute Neuts (auto) 6.3 Neutrophils % 65.0 Lymphocytes % 26.2 Monocytes % 6.4 Eosinophils % 1.8 Basophils % 0.6 Nucleated RBC % 0 Hypochromia 1+ Platelet Estimate Adequate Platelet Comment No clumping noted Anisocytosis 2+ Microcytosis 1+ PT with INR 11.20 INR 0.95 PTT (Actin FS) 31.8 Sodium 140 Potassium 4.2 Chloride 105 Carbon Dioxide 21 Anion Gap 13 BUN 15.5 Creatinine 1.8 H Est GFR (CKD-EPI)AfAm 48.37 Est GFR (CKD-EPI)NonAf 41.74 Random Glucose 124 H Calcium 9.8 Total Bilirubin 0.5 AST 23 ALT 25 Alkaline Phosphatase 128 H Creatine Kinase 114 Troponin I < 0.02 Total Protein 8.5 H Albumin 4.0 Blood Type Antibody Screen 12/04/19 18:30 WBC RBC Hgb Hct MCV MCH MCHC RDW Plt Count MPV Absolute Neuts (auto) Neutrophils % Lymphocytes % Monocytes % Eosinophils % Basophils % Nucleated RBC % Hypochromia Platelet Estimate Platelet Comment Anisocytosis Microcytosis PT with INR INR PTT (Actin FS) Sodium Potassium Chloride Carbon Dioxide Anion Gap BUN Creatinine Est GFR (CKD-EPI)AfAm Est GFR (CKD-EPI)NonAf Random Glucose Calcium Total Bilirubin AST ALT Alkaline Phosphatase Creatine Kinase Troponin I Total Protein Albumin Blood Type O POSITIVE Antibody Screen Negative ASSESSMENT/PLAN: 54 year old male with past medical history of NIDDM, osteomyelitis s/p right bka (01/2019), hypertension and gastroparesis who presented with symptoms of nausea and vomiting of dark brown/black emesis, or 1 day and generalized body pain and diffuse abdominal pain . He was evaluated by Gastroenterology and he was found to have gastroparesis on recent hospitalization. In this setting today he was found to have acute kidney injury. He is being admitted to Medicine for treatment with IV hydration, IV emetics and pain medications. #1 Abdominal Pain/ Intractable Vomiting likely in the setting of Gastroparesis no leukocytosis, afebrile NPO IV zofran 4mg IV prn IVF NS @ 100cc/hr IV pepcid 20 mg daily IV Dilaudid 0.25 mg IV q4hr prn for severe pain, readdress pain control meds in am (appears to have pain seeking behaviors, see HPI above) c/w miralax and senna Gastroenterology consulted- Dr. Juarez #2 Acute Kidney Injury in the Setting of Intractable Vomiting and likely Dehydration creatinine 1.8(baseline range between 1.1-1.3), repeat creatinine 1.6 c/w IVF avoid jaleel/arb/ NSAID's and nephrotoxic meds hold metformin BMP in am #3 Hypertension uncontrolled likely in the setting of pain c/w amlodipine and labetalol #4 Tachycardia secondary to pain and vomiting c/w beta gi continue to monitor #5 NIDDM hold metformin with LIZA BGM before meals and at bedtime insulin as per sliding scale DVT Prophylaxis SCD to left leg heparin sq FEN IVF BMP daily, replete lytes as needed NPO Family Medical History Family History: Unremarkable Visit type - Emergency Visit Emergency Visit: Yes ED Registration Date: 12/04/19 Care time: The patient presented to the Emergency Department on the above date and was hospitalized for further evaluation of their emergent condition. - New Patient This patient is new to me today: Yes Date on this admission: 12/04/19 - Critical Care Critical Care patient: No
[2019-12-04] MEDS ORDERED: SODIUM CHLORIDE 1,000 ML IV SCH (22:15)
[2019-12-04] MEDS: ONDANSETRON 4 MG/2 ML VIAL IVPUSH PRN (22:33)
[2019-12-04 23:10] LABS: ALBUMIN 3.7 g/dl (3.4-5.0); BILIRUBIN,TOTAL 0.3 mg/dL (0.2-1); BLOOD UREA NITROGEN 15.2 mg/dL (7-18); CALCIUM 9.1 mg/dL (8.5-10.1); CREATININE 1.6 mg/dL (0.55-1.3); TOT PROT 7.7 g/dl (6.4-8.2)
[2019-12-04] MEDS ORDERED: HEPARIN NA (PORCINE) 5,000 UNITS/ML 1ML VIAL ONE (23:30)
[2019-12-04] MEDS: HEPARIN NA (PORCINE) 5,000 UNITS/ML 1ML VIAL SQ SCH (23:36)
[2019-12-05] MEDS ORDERED: LABETALOL HCL 100 MG TABLET (FP) PO ONE (02:56)
[2019-12-05] MEDS ORDERED: LABETALOL HCL 200 MG TABLET (FP) PO ONE (02:56)
[2019-12-05] MEDS ORDERED: LABETALOL HCL 100 MG TABLET (FP) ONE (02:58)
[2019-12-05] MEDS ORDERED: HYDROmorphone HCl 2 MG/ML VIAL ONE (03:01)
[2019-12-05] MEDS: HYDROmorphone HCl 2 MG/ML VIAL IVPB PRN ×4 (03:04→14:42)
[2019-12-05] MEDS ORDERED: amLODIPine BESYLATE 5 MG TABLET (FP) PO ONE (03:59)
[2019-12-05] MEDS: ONDANSETRON 4 MG/2 ML VIAL IVPUSH PRN ×2 (04:12→08:13)
[2019-12-05] MEDS ORDERED: LABETALOL HCL 5 MG/1 ML (100MG/20 ML VIAL) IVPUSH ONE (04:24)
[2019-12-05 05:21] VITALS: BMI 26.1
[2019-12-05] MEDS: POLYETHYLENE GLYCOL 3350 119 GM BTL PO SCH ×3 (05:59→21:26)
[2019-12-05] MEDS: INSULIN SLIDING SCALE (NOVOLOG) 1 VIAL SQ SCH ×2 (06:48→16:37)
--- NOTE | 2019-12-05 08:23 | CON.GI ---
Consult Consult Specialty:: GI Referred by:: Hospitalist Service Reason for Consultation:: Abdominal pain / vomiting - History of Present Illness Chief Complaint: Abdominal pain, Vomiting History of Present Illness: 54M admitted for persistent vomiting x 24 hours some episodes with flecks of blood and with upper abdominal pain. This is a recurring problem. No melena. Admitted earlier this month for the dsame complaint. States that escalated doses of dilaudid helps with the pain. He had an unrevealing IV contrast CT scan last admission and improved through conservative means. He has chronic constipation. He had an EGD in the [facility] system about month ago with Dr Joe when a polyp was removed and a " tear was bonded". He denies being told of a Alexandrea Mandujano tear or a tear related to vomiting. He was not bleeding during the EGD. No melena since then. He has never had a major GI bleed requiring transfusions. He reports that no clear cut etiology for his repeated episodes of vomiting has been determined but he is taking Reglan 10mg TID ac. He has never had a colonoscopy. He was supposed to follow-up with his stitch cleaner after his last admission. patient states that the appointment was cancelled. He denies any FH of colon cancer. When I went to evaluate the patient he appeared to be sleeping comfortably. It was after I woke him that he began retching. Blood pressure has been markedly elevated. - Past Medical History Cardio/Vascular: Yes: HTN Gastrointestinal: Yes: Constipation, Other (Recurring episodes of vomiting, often associated with flecks of blood and treated with Reglan) Hepatobiliary: Yes: Other (gastroparesis) Infectious Disease: Yes: Other (RLE osteomyelitis ) Endocrine: Yes: Diabetes Mellitus - Past Surgical History Past Surgical History: Yes: Upper Endoscopy - Alcohol/Substance Use Hx Alcohol Use: No History of Substance Use: reports: None - Smoking History Smoking history: Never smoked Have you smoked in the past 12 months: No - Social History Usual Living Arrangement: With Spouse ADL: Independent 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 Place of : [facility] [employer] History of Recent Travel: No Home Medications - Allergies Allergies/Adverse Reactions: Allergies Allergy/AdvReac Type Severity Reaction Status Date / Time No Known Allergies Allergy Verified 12/04/19 17:17 - Home Medications Home Medications: Ambulatory Orders Metformin HCl [Glucophage] 500 mg PO BID 07/02/19 Acetaminophen [Tylenol .Regular Strength -] 650 mg PO Q4H PRN tablet 11/12/19 Amlodipine Besylate [Norvasc -] 5 mg PO DAILY #30 tablet 11/12/19 Labetalol HCl [Normodyne -] 200 mg PO BID #60 tablet 11/12/19 Metoclopramide HCl [Reglan -] 10 mg PO TIDAC #90 tablet 11/12/19 Pantoprazole Sodium [Protonix -] 40 mg PO DAILY #30 tablet.ec 11/12/19 Polyethylene Glycol 3350 [Miralax 119 gm Btl -] 17 gm PO TID #1 bottle 11/12/19 Sennosides [Senna -] 2 tab PO HS PRN #60 tablet 11/12/19 Family Medical History Family Hx Cancer: Mother (breast cancer) Review of Systems - Review of Systems Constitutional: denies: Chills, Fever Cardiovascular: denies: Chest Pain Respiratory: denies: Cough Gastrointestinal: reports: Abdominal Pain, Vomiting. denies: Melena, Rectal Bleeding Physical Exam-GI Vital Signs: Vital Signs Temperature 98.4 F 12/05/19 05:00 Pulse Rate 92 H 12/05/19 07:01 Respiratory Rate 20 12/05/19 06:55 Blood Pressure 186/99 H 12/05/19 07:01 O2 Sat by Pulse Oximetry (%) 98 12/05/19 07:01 Constitutional: Yes: Calm Eyes: No: Sclera Icterus Cardiovascular: Yes: Regular Rate and Rhythm Respiratory: Yes: Diminished (at bases bilaterally with poor insp effort) Gastrointestinal Inspection: No: Distention ...Auscultate: Yes: Normoactive Bowel Sounds ...Palpate: Yes: Soft, Tenderness. No: Hepatomegaly, Splenomegaly ...Percussion: No: Tympanitic Extremities: Yes: Other (Rt. BKA) Edema: No (No LE edema) Neurological: Yes: Alert Labs: CBC, BMP 12/04/19 18:30 12/04/19 22:15 INR, PTT INR 0.95 (0.83-1.09) 12/04/19 18:30 Imaging - Results Other: Other (No abdominal imaging this admission) Problem List - Problems (1) Vomiting Assessment/Plan: With abdominal pain Markedly elevated blood pressure Advise: NPO IV hydration Reglan 10mg IVPB Q 8 hrs PRN Protonix 40mg IVPB daily Blood pressure control. Advised nurse to D/W primary team Consider evaluation for pheochromocytoma (endocrine eval if necessary) per primary team CT scan A/P with PO contrast when patient can tolerate Will need follow-up with his stitch cleaner. His stitch cleaner's office should be contacted to arrange follow-up Code(s): R11.10 - VOMITING, UNSPECIFIED Qualifiers: Vomiting type: unspecified Vomiting Intractability: intractable Nausea presence: with nausea Qualified Code(s): R11.2 - Nausea with vomiting, unspecified
[2019-12-05] MEDS ORDERED: PROCHLORPERAZINE INJECTION 10 MG/2 ML VIAL IVPB PRN (08:33)
[2019-12-05] MEDS: amLODIPine BESYLATE 5 MG TABLET (FP) PO SCH (09:30)
[2019-12-05] MEDS: LABETALOL HCL 200 MG TABLET (FP) PO SCH ×2 (09:30→21:25)
[2019-12-05] MEDS: HEPARIN NA (PORCINE) 5,000 UNITS/ML 1ML VIAL SQ SCH ×2 (09:36→21:25)
[2019-12-05] MEDS: PANTOPRAZOLE SODIUM 40 MG VIAL IVPUSH SCH (09:36)
[2019-12-05] MEDS: METOPROLOL TARTRATE 5 MG/5 ML VIAL IVPB SCH ×4 (09:37→23:14)
[2019-12-05] MEDS ORDERED: PANTOPRAZOLE 40 MG TABLET PO SCH (10:00)
[2019-12-05] MEDS ORDERED: FAMOTIDINE 20 MG/50 ML IVPB 20 MG/50 ML MG IVPB SCH (10:00)
--- NOTE | 2019-12-05 11:03 | EKG ---
Test Reason : Blood Pressure : / mmHG Vent. Rate : 103 BPM Atrial Rate : 103 BPM P-R Int : 180 ms QRS Dur : 082 ms QT Int : 336 ms P-R-T Axes : 052 025 013 degrees QTc Int : 440 ms SINUS TACHYCARDIA NONSPECIFIC T WAVE ABNORMALITY ABNORMAL ECG WHEN COMPARED WITH ECG OF 06-NOV-2019 19:06, NO SIGNIFICANT CHANGE WAS FOUND Confirmed by CLOVIS CULP MD ([id number]) on 12/05/2019 11:03:25 AM Referred By: Confirmed By:CLOVIS CULP MD
--- NOTE | 2019-12-05 11:27 | PN ---
Progress Note, Physician Chief Complaint: Abd pain History of Present Illness: 54M admitted for persistent vomiting x 24 hours some episodes with flecks of blood and with upper abdominal pain. This is a recurring problem. No melena. Admitted earlier this month for the dsame complaint. States that escalated doses of dilaudid helps with the pain. He had an unrevealing IV contrast CT scan last admission and improved through conservative means. He has chronic constipation. [facility] about month ago with Dr Joe when a polyp was removed and a " tear was bonded". He denies being told of a Alexandrea Mandujano tear or a tear related to vomiting. He was not bleeding during the EGD. No melena since then. He has never had a major GI bleed requiring transfusions. He reports that no clear cut etiology for his repeated episodes of vomiting has been determined but he is taking Reglan 10mg TID ac. He has never had a colonoscopy. 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 patient states that the appointment was cancelled. He denies any FH of colon cancer. When I went to evaluate the patient he appeared to be sleeping comfortably. It was after I woke him that he began retching. Blood pressure has been markedly elevated. NAD noted tremors during my encounter with the pt. C/O generalized pain now, originally admitted for abd pain mildly nauseous - Current Medication List Current Medications: Active Medications Amlodipine Besylate (Norvasc -) 5 mg PO DAILY [facility] Last Admin: 12/05/19 09:30 Dose: Not Given Documented by: Heparin Sodium (Porcine) (Heparin -) 5,000 unit SQ BID [facility] Last Admin: 12/05/19 09:36 Dose: Not Given Documented by: Hydromorphone HCl (Dilaudid Vial -) 1 mg IVPB Q4H PRN PRN Reason: PAIN LEVEL 7 - 10 Last Admin: 12/05/19 09:35 Dose: 1 mg Documented by: Sodium Chloride (Normal Saline -) 1,000 mls @ 100 mls/hr IV ASDIR [facility] Last Admin: 12/04/19 22:22 Dose: 100 mls/hr Documented by: Insulin Aspart (Novolog Vial Sliding Scale -) [facility] Protocol Last Admin: 12/05/19 06:48 Dose: Not Given Documented by: Labetalol HCl (Normodyne -) 200 mg PO BID [facility] Last Admin: 12/05/19 09:30 Dose: Not Given Documented by: Metoclopramide HCl (Reglan Injection -) 10 mg IVPUSH Q8H [facility] Metoprolol Tartrate (Lopressor Injection -) 5 mg IVPB Q4H-IV [facility] Last Admin: 12/05/19 09:37 Dose: 5 mg Documented by: Pantoprazole Sodium (Protonix Iv) 40 mg IVPUSH DAILY [facility] Last Admin: 12/05/19 09:36 Dose: 40 mg Documented by: Polyethylene Glycol (Miralax (For Daily Use) -) 17 gm PO TID [facility] Last Admin: 12/05/19 05:59 Dose: Not Given Documented by: Prochlorperazine Edisylate (Compazine Injection -) 10 mg IVPB Q4H PRN PRN Reason: NAUSEA AND/OR VOMITING Senna (Senna -) 2 tab PO HS PRN PRN Reason: CONSTIPATION - Objective Vital Signs: Vital Signs Temperature 98.4 F 12/05/19 05:00 Pulse Rate 102 H 12/05/19 09:37 Respiratory Rate 12/05/19 06:55 Blood Pressure 168/106 H 12/05/19 09:37 O2 Sat by Pulse Oximetry (%) 98 12/05/19 09:00 Constitutional: Yes: Well Nourished, No Distress, Calm Cardiovascular: Yes: Regular Rate and Rhythm Respiratory: Yes: Regular, CTA Bilaterally Gastrointestinal: Yes: Soft, Hypoactive Bowel Sounds Genitourinary: Yes: WNL Musculoskeletal: Yes: WNL Extremities: Yes: WNL Edema: No Peripheral Pulses WNL: Yes Neurological: Yes: Alert, Oriented Psychiatric: Yes: Alert, Oriented Labs: INR, PTT INR 0.95 (0.83-1.09) 12/04/19 18:30 Problem List - Problems (1) Phantom limb pain Assessment/Plan: -Pain management consult -for now continue dilaudid Problems reviewed: Yes Code(s): G54.6 - PHANTOM LIMB SYNDROME WITH PAIN (2) LIZA (acute kidney injury) Assessment/Plan: -IVF -Nephrology consult -Monitor trend Problems reviewed: Yes Code(s): N17.9 - ACUTE KIDNEY FAILURE, UNSPECIFIED (3) Vomiting Assessment/Plan: -subsided -Reglan 10 mg TID michel -Compazine prn -trial of clear liquid diet Problems reviewed: Yes Code(s): R11.10 - VOMITING, UNSPECIFIED Qualifiers: Vomiting type: unspecified Vomiting Intractability: intractable Nausea presence: with nausea Qualified Code(s): R11.2 - Nausea with vomiting, unspecified (4) Abdominal pain Assessment/Plan: -CTAP done 11/09/19-unremarkable -AXR done today negative -Will obtain abd U/S -GI on board Problems reviewed: Yes Code(s): R10.9 - UNSPECIFIED ABDOMINAL PAIN Qualifiers: Abdominal location: unspecified location Qualified Code(s): R10.9 - Unspecified abdominal pain (5) Diabetic gastroparesis Problems reviewed: Yes Code(s): 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 (6) Drug abuse Assessment/Plan: -questionable -detox consult -Psych consult Problems reviewed: Yes Code(s): F19.10 - OTHER PSYCHOACTIVE SUBSTANCE ABUSE, UNCOMPLICATED (7) Diabetes Assessment/Plan: -Last A1c at 6.9 on 11/07/19 -BGM AC HS -Diabetic low sodium clear liquid diet -ISS Problems reviewed: Yes Code(s): E11.9 - TYPE 2 DIABETES MELLITUS WITHOUT COMPLICATIONS Assessment/Plan See problem list
[2019-12-05 11:28] LABS: HEMATOCRIT 32.1 % (35.4-49); HEMOGLOBIN 10.2 GM/dL (11.7-16.9); MCH 24.6 pg (25.7-33.7); MCHC 31.7 g/dl (32.0-35.9); MEAN CELL VOLUME 77.5 fl (80-96); MEAN PLT VOLUME 8.6 fl (7.5-11.1); PLATELET COUNT 248 K/MM3 (134-434); RBC 4.14 M/mm3 (4.00-5.60); RDW 20.8 % (11.9-15.9); WHITE BLOOD COUNT 9.8 K/mm3 (4.0-10.0)
[2019-12-05 11:57] LABS: ALBUMIN 3.6 g/dl (3.4-5.0); BILIRUBIN,TOTAL 0.4 mg/dL (0.2-1); CALCIUM 9.5 mg/dL (8.5-10.1); CREATININE 1.4 mg/dL (0.55-1.3); MAGNESIUM 1.7 mg/dL (1.8-2.4); PHOSPHOROUS 3.6 mg/dL (2.5-4.9); POTASSIUM 3.8 mmol/L (3.5-5.1); TOT PROT 7.6 g/dl (6.4-8.2)
[2019-12-05] MEDS: METOCLOPRAMIDE HCL INJECTION 10 MG/2 ML VIAL IVPUSH SCH ×2 (12:25→17:56)
[2019-12-05] MEDS ORDERED: LORazepam 2 MG/ML SDV VIAL IVPUSH ONE ×2 (12:48→17:45)
[2019-12-05] MEDS ORDERED: LORazepam 2 MG/ML SDV VIAL IVPUSH PRN (12:50)
[2019-12-05 14:07] LABS: PHENCYCLIDINE,URINE NEGATIVE ng/ml (CUTOFF=25); URINE AMPHETAMINES NEGATIVE ng/ml (CUTOFF=500); URINE BARBITURATES NEGATIVE ng/ml (CUTOFF=200)
[2019-12-05 14:14] LABS: COCAINE, UR NEGATIVE ng/ml (CUTOFF=300); METHADONE, UR NEGATIVE ng/ml (CUTOFF=300); URINE BENZODIAZEPINES NEGATIVE ng/ml (CUTOFF=200)
[2019-12-05 14:16] LABS: OPIATES, URI POSITIVE ng/ml (CUTOFF=300)
--- NOTE | 2019-12-05 14:23 | CONSULT ---
Consult Consult Specialty:: Interventional Spine and Pain Managent Reason for Consultation:: Abdominal Pain - History of Present Illness Chief Complaint: Gastroparesis History of Present Illness: The patient is a 54 y/o male with DM, gastroparesis, right BKA. Pt states that when he has a gastroparesis flare he has total body pain. He states that his p hantom limb pain flares up and he has total body aches. Pain is rated 9/10/ PT was conversant. Throughout the interview the patient was vomiting mucous. H states at baseline he only intermittent pain symptoms. Per patients last urine drug screen at last admission in 11/09/19 the patient tested positive for MDMA (ecstasy). The patient denies using any opiates or illicit drugs. A Urine drug screen was not done prior to admission. New results after admission are only positive for opiates which he is getting during admission. ISTOP Checked No Opiate medications Pt received short coarse of clonazepam in April of this year. Pain Medication: IV Dialuadid .5 mg - History Source History Provided By: Patient - Past Medical History Cardio/Vascular: Yes: HTN Gastrointestinal: Yes: Constipation, Other (Recurring episodes of vomiting, often associated with flecks of blood and treated with Reglan) Hepatobiliary: Yes: Other (gastroparesis) Infectious Disease: Yes: Other (RLE osteomyelitis ) Endocrine: Yes: Diabetes Mellitus - Past Surgical History Past Surgical History: Yes: Upper Endoscopy - Alcohol/Substance Use Hx Alcohol Use: No History of Substance Use: reports: None - Smoking History Smoking history: Never smoked Have you smoked in the past 12 months: No - Social History Usual Living Arrangement: With Spouse ADL: Independent 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 [employer] History of Recent Travel: No Home Medications - Allergies Allergies/Adverse Reactions: Allergies Allergy/AdvReac Type Severity Reaction Status Date / Time No Known Allergies Allergy Verified 12/04/19 17:17 - Home Medications Home Medications: Ambulatory Orders Metformin HCl [Glucophage] 500 mg PO BID 07/02/19 Acetaminophen [Tylenol .Regular Strength -] 650 mg PO Q4H PRN tablet 11/12/19 Amlodipine Besylate [Norvasc -] 5 mg PO DAILY #30 tablet 11/12/19 Labetalol HCl [Normodyne -] 200 mg PO BID #60 tablet 11/12/19 Metoclopramide HCl [Reglan -] 10 mg PO TIDAC #90 tablet 11/12/19 Pantoprazole Sodium [Protonix -] 40 mg PO DAILY #30 tablet.ec 11/12/19 Polyethylene Glycol 3350 [Miralax 119 gm Btl -] 17 gm PO TID #1 bottle 11/12/19 Sennosides [Senna -] 2 tab PO HS PRN #60 tablet 11/12/19 Family Medical History Family Hx Cancer: Mother (breast cancer) Review of Systems - Review of Systems Constitutional: reports: Weakness Eyes: reports: No Symptoms HENT: reports: No Symptoms Neck: reports: No Symptoms Cardiovascular: reports: No Symptoms Respiratory: reports: No Symptoms Gastrointestinal: reports: Abdominal Pain, Nausea, Vomiting Genitourinary: reports: No Symptoms Breasts: reports: No Symptoms Reported Musculoskeletal: reports: Back Pain, Joint Pain, Muscle Pain Integumentary: reports: No Symptoms Neurological: reports: Other (Phantom Limb Pain) Endocrine: reports: No Symptoms Physical Exam Vital Signs: Vital Signs Temperature 98.4 F 12/05/19 05:00 Pulse Rate 98 H 12/05/19 13:57 Respiratory Rate 12/05/19 06:55 Blood Pressure 161/88 12/05/19 13:57 O2 Sat by Pulse Oximetry (%) 98 12/05/19 09:00 Constitutional: Yes: Well Nourished Eyes: Yes: Conjunctiva Clear, EOM Intact HENT: Yes: Atraumatic, Normocephalic Neck: Yes: Trachea Midline Cardiovascular: Yes: Regular Rate and Rhythm Respiratory: Yes: Regular Gastrointestinal: Yes: Other (emesis) Musculoskeletal: Yes: Other (BKA) Extremities: Yes: Amputation (Right BKA) Neurological: Yes: WNL, Other (Phantom limb pain) ...Motor Strength: WNL Psychiatric: Yes: Alert, Oriented Labs: CBC, BMP 12/05/19 10:25 12/05/19 10:25 Assessment/Plan The patients pain is likley multifactorial in nature with both acute (gastroparesis) on chronic pain (phantom Limb pain). It is uncertain if patient is using illicit drugs. I explained to the patient that taking opiate medications for pain is not the best option as they have the potential to slow gut motility and cause worsening Gastroparesis symptoms which is the acute cause of his admission. The patient also has possible history of substance abuse. Pain Recommendations: Multimodal Pain Management 1. May continue current dose of dilaudid with goal of discontinueing IV medication once he is able to tolerate PO and then discontinue opiates all together. As patient has questionable history of substance abuse. Non opiate analgesics should be maximized first prior to initiating opiate analgesics and specifically in the case of gastroparesis as it may make this condition worse. 2. Consider IV tylenol now and then PO once able to tolerate. 3. Once able to tolerate PO trial Gabapentin 300 MG TID as tolerated Monitor for sedation for generalized body pain and phantom limb pain. 4. Consider a trial of a TCA like Nortryptilline 10 mg at night. TCA's may have some gut motility effects but are much less than opiate analgesics and have been shown to help in gstroparesis patients. Also it is beneficial for phantom limb and generalized pain. 5. May Start a lidoderm patch for topical pain relief over his symptomatic joints 12 hours on 12 hours off. May cut a single patch and place on multiple j oints. 6. Consider NSAID. At discretion of the primary team given his history of GI bleed. 6. As an outpatient, patient may be a candidate once medically stable for a peripheral or DRG Stimulator trial for his phantom limb pain which may address an underlying chronic pain syndrome. Once discharged I am more than willing to see the patient for Interventional Pain Management as needed. [address] [facility] 1st Floor [phone] Thank you for your consult, Aron Baptiste DO Interventional Spine and Pain Management
--- NOTE | 2019-12-05 15:44 | CONSULT ---
Consult Consult Specialty:: Nephrology Reason for Consultation:: LIZA - History of Present Illness Chief Complaint: nausea and vomiting History of Present Illness: Pt is a 54 year old male with pmhx of dm, liza, gastroparesis, pvd, right bka who presents to the ER with vomiting and nausea. He was recently admitted with similar symptoms. He denies fever or chills. He denies chest pain or palpitations. He says that he has been eating one meal per day and avoiding snacks. He says he feels better with reglan. His blood pressure was elevated as well. - History Source History Provided By: Patient - Past Medical History Cardio/Vascular: Yes: HTN Gastrointestinal: Yes: Constipation, Other (Recurring episodes of vomiting, often associated with flecks of blood and treated with Reglan) Hepatobiliary: Yes: Other (gastroparesis) Infectious Disease: Yes: Other (RLE osteomyelitis ) Endocrine: Yes: Diabetes Mellitus - Past Surgical History Past Surgical History: Yes: Upper Endoscopy - Alcohol/Substance Use Hx Alcohol Use: No History of Substance Use: reports: None - Smoking History Smoking history: Never smoked Have you smoked in the past 12 months: No - Social History Usual Living Arrangement: With Spouse ADL: Independent 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 [employer] History of Recent Travel: No Home Medications - Allergies Allergies/Adverse Reactions: Allergies Allergy/AdvReac Type Severity Reaction Status Date / Time No Known Allergies Allergy Verified 12/04/19 17:17 - Home Medications Home Medications: Ambulatory Orders Metformin HCl [Glucophage] 500 mg PO BID 07/02/19 Acetaminophen [Tylenol .Regular Strength -] 650 mg PO Q4H PRN tablet 11/12/19 Amlodipine Besylate [Norvasc -] 5 mg PO DAILY #30 tablet 11/12/19 Labetalol HCl [Normodyne -] 200 mg PO BID #60 tablet 11/12/19 Metoclopramide HCl [Reglan -] 10 mg PO TIDAC #90 tablet 11/12/19 Pantoprazole Sodium [Protonix -] 40 mg PO DAILY #30 tablet.ec 11/12/19 Polyethylene Glycol 3350 [Miralax 119 gm Btl -] 17 gm PO TID #1 bottle 11/12/19 Sennosides [Senna -] 2 tab PO HS PRN #60 tablet 11/12/19 Family Medical History Family Hx Cancer: Mother (breast cancer) Review of Systems - Review of Systems Constitutional: reports: Loss of Appetite, Malaise Eyes: reports: No Symptoms HENT: reports: No Symptoms Neck: reports: No Symptoms Cardiovascular: reports: No Symptoms Respiratory: reports: No Symptoms Gastrointestinal: reports: Vomiting Genitourinary: reports: No Symptoms Musculoskeletal: reports: No Symptoms Integumentary: reports: No Symptoms Neurological: reports: No Symptoms Endocrine: reports: No Symptoms Hematology/Lymphatic: reports: No Symptoms Psychiatric: reports: No Symptoms Physical Exam Vital Signs: Vital Signs Temperature 98.4 F 12/05/19 05:00 Pulse Rate 98 H 12/05/19 13:57 Respiratory Rate 20 12/05/19 06:55 Blood Pressure 161/88 12/05/19 13:57 O2 Sat by Pulse Oximetry (%) 98 12/05/19 09:00 Constitutional: Yes: Calm Eyes: Yes: Conjunctiva Clear HENT: Yes: Atraumatic Neck: Yes: Supple Cardiovascular: Yes: S1, S2 Respiratory: Yes: CTA Bilaterally Gastrointestinal: Yes: Normal Bowel Sounds, Soft Renal/: Yes: WNL Musculoskeletal: Yes: WNL Edema: No Neurological: Yes: Oriented Psychiatric: Yes: Oriented Labs: CBC, BMP 12/05/19 10:25 12/05/19 10:25 Imaging - Results Chest X-ray: Report Reviewed Assessment/Plan Current Medications Generic Name Dose Route Start Last Admin Trade Name Freq PRN Reason Stop Dose Admin Amlodipine Besylate 5 mg 12/05/19 10:00 12/05/19 09:30 Norvasc - PO Not Given DAILY [facility] Heparin Sodium (Porcine) 5,000 unit 12/04/19 23:15 12/05/19 09:36 Heparin - SQ Not Given BID [facility] Hydromorphone HCl 1 mg 12/05/19 08:33 12/05/19 14:42 Dilaudid Vial - IVPB 1 mg Q4H PRN Administration PAIN LEVEL 7 - 10 Sodium Chloride 1,000 mls @ 100 mls/hr 12/04/19 22:15 12/04/19 22:22 Normal Saline - IV 100 mls/hr ASDIR [facility] Administration Insulin Aspart 1 vial 12/05/19 07:00 12/05/19 06:48 Novolog Vial Sliding Scale - SQ Not Given BIDAC [facility] Protocol Labetalol HCl 200 mg 12/05/19 10:00 12/05/19 09:30 Normodyne - PO Not Given BID [facility] Lorazepam 1 mg 12/05/19 12:50 Ativan Injection - IVPUSH TID PRN tremors Metoclopramide HCl 10 mg 12/05/19 11:30 12/05/19 12:25 Reglan Injection - IVPUSH 10 mg Q8H-IV [facility] Administration Metoprolol Tartrate 5 mg 12/05/19 10:00 12/05/19 13:57 Lopressor Injection - IVPB 5 mg Q4H-IV [facility] Administration Pantoprazole Sodium 40 mg 12/05/19 10:00 12/05/19 09:36 Protonix Iv IVPUSH 40 mg DAILY [facility] Administration Polyethylene Glycol 17 gm 12/05/19 06:00 12/05/19 14:11 Miralax (For Daily Use) - PO Not Given TID [facility] Prochlorperazine Edisylate 10 mg 12/05/19 08:33 Compazine Injection - IVPB Q4H PRN NAUSEA AND/OR VOMITING Senna 2 tab 12/04/19 22:07 Senna - PO HS PRN CONSTIPATION Laboratory Tests 12/04/19 12/04/19 12/04/19 17:33 18:30 18:30 Hgb 10.9 L Creatinine 1.8 H Gastric Occult Blood Pending Opiates Screen 12/04/19 12/05/19 12/05/19 22:15 10:25 10:25 Hgb 10.2 L Creatinine 1.6 H 1.4 H Gastric Occult Blood Opiates Screen 12/05/19 12:35 Hgb Creatinine Gastric Occult Blood Opiates Screen Positive A* Impression 1. ILZA 2. gastroparesis 3. htn 4. vomiting 5. proteinuria Plan - renal function improving - change fluids to 1/2 - if bp not improved with beta gi, can add iv hydralazine - repeat labs in am - pt does not want if contrast - he can get ct with po contrast - discussed with medical team
[2019-12-05] MEDS ORDERED: SODIUM CHLORIDE 0.45% 1,000 ML IV SCH (16:00)
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
[2019-12-05] MEDS ORDERED: ACETAMINOPHEN 1000 MG/100 ML VIAL (NON FORMULARY) IVPB PRN (16:27)
[2019-12-05] MEDS ORDERED: ACETAMINOPHEN 500 MG TABLET (FP) PO PRN (16:28)
[2019-12-05] MEDS ORDERED: HYDROmorphone HCl 2 MG/ML VIAL IVPUSH PRN (16:31)
[2019-12-05] MEDS ORDERED: HYDROmorphone HCl 2 MG/ML VIAL IVPB PRN (16:49)
--- NOTE | 2019-12-05 19:11 | CON.PSL ---
Psychology Consult Consult Specialty:: Clinical Psychology History Provided By: Medical Record, Caregiver Current Medications: Active Medications Acetaminophen (Ofirmev Injection -) 1,000 mg IVPB Q6H PRN PRN Reason: PAIN LEVEL 1-5 Stop: 12/06/19 16:27 Acetaminophen (Tylenol -) 1,000 mg PO Q6H PRN PRN Reason: PAIN LEVEL 1-5 Amlodipine Besylate (Norvasc -) 5 mg PO DAILY [facility] Last Admin: 12/05/19 09:30 Dose: Not Given Documented by: Gabapentin (Neurontin -) 300 mg PO TID [facility] Heparin Sodium (Porcine) (Heparin -) 5,000 unit SQ BID [facility] Last Admin: 12/05/19 09:36 Dose: Not Given Documented by: Hydromorphone HCl (Dilaudid Vial -) 0.5 mg IVPB Q4H PRN PRN Reason: PAIN LEVEL 6-10 Sodium Chloride (1/2 Normal Saline) 1,000 mls @ 50 mls/hr IV ASDIR [facility] Stop: 12/06/19 15:50 Last Admin: 12/05/19 16:30 Dose: 50 mls/hr Documented by: Insulin Aspart (Novolog Vial Sliding Scale -) 1 vial SQ BIDAC [facility]; Protocol Last Admin: 12/05/19 16:37 Dose: Not Given Documented by: Labetalol HCl (Normodyne -) 200 mg PO BID [facility] Last Admin: 12/05/19 09:30 Dose: Not Given Documented by: Lorazepam (Ativan Injection -) 1 mg IVPUSH TID PRN PRN Reason: tremors Metoclopramide HCl (Reglan Injection -) 10 mg IVPUSH Q8H-IV [facility] Last Admin: 12/05/19 17:56 Dose: 10 mg Documented by: Metoprolol Tartrate (Lopressor Injection -) 5 mg IVPB Q4H-IV [facility] Last Admin: 12/05/19 17:56 Dose: 5 mg Documented by: Pantoprazole Sodium (Protonix Iv) 40 mg IVPUSH DAILY [facility] Last Admin: 12/05/19 09:36 Dose: 40 mg Documented by: Polyethylene Glycol (Miralax (For Daily Use) -) 17 gm PO TID [facility] Last Admin: 12/05/19 14:11 Dose: Not Given Documented by: Prochlorperazine Edisylate (Compazine Injection -) 10 mg IVPB Q4H PRN PRN Reason: NAUSEA AND/OR VOMITING Senna (Senna -) 2 tab PO HS PRN PRN Reason: CONSTIPATION Allergies: Allergies Allergy/AdvReac Type Severity Reaction Status Date / Time No Known Allergies Allergy Verified 12/04/19 17:17 Current Medical Exam-Psy Attention: Alert Orientation: Time, Person, Place Immediate Term Memory: 06/09 Expressive: Coherent Receptive: Age Appropriate Comprehension of Spoken Words Hallucinations: Absent Thought Process: Intact Danger to Self and Others: No Support System: Significant Other Assessment/Plan Spoke with the patient's nurse who advised me that I may find him more cooperative tomorrow morning as he becomes angry and uncooperative when disturbed from sleep or a nap. An attempt will be made to perform the evaluation tomorrow and make recommendations for behavioral treatment of his phantom limb pain. Today, December 05, the patient was seen. A review of the psychiatric report was undertaken. The patient was cooperative and did not appear irritable or angry. Indeed, since the consultation took place this morning, he was not awoken from sleep and this contributed to his better mood. He was guided through a deep breathing mindfulness based stress reduction exercise for pain relief. However, he stated that while his concentration improved, his pain level did not alter and remained at an 8. He was advised to continue the practice on his own to the best of his recollection. Tomorrow he will be treated with self hypnotic interventions again. Thank you for the courtesy of the referral. Juaquin Mata Psy.D., LOIS, N Neuropsychology and Pain Management (Certificate in Nutritional Pain Management) Board Certified in Neurofeedback
[2019-12-05] MEDS: GABAPENTIN 300 MG CAPSULE PO SCH (21:24)
[2019-12-06] MEDS: METOCLOPRAMIDE HCL INJECTION 10 MG/2 ML VIAL IVPUSH SCH ×2 (01:16→09:51)
[2019-12-06] MEDS: METOPROLOL TARTRATE 5 MG/5 ML VIAL IVPB SCH ×3 (01:16→09:49)
[2019-12-06] MEDS: GABAPENTIN 300 MG CAPSULE PO SCH (07:05)
[2019-12-06] MEDS: POLYETHYLENE GLYCOL 3350 119 GM BTL PO SCH (07:05)
[2019-12-06] MEDS: INSULIN SLIDING SCALE (NOVOLOG) 1 VIAL SQ SCH (07:05)
[2019-12-06] MEDS: LABETALOL HCL 200 MG TABLET (FP) PO SCH (09:48)
[2019-12-06] MEDS: amLODIPine BESYLATE 5 MG TABLET (FP) PO SCH (09:48)
[2019-12-06 09:49] VITALS: BP 146/83; PULSE 90
[2019-12-06] MEDS: HEPARIN NA (PORCINE) 5,000 UNITS/ML 1ML VIAL SQ SCH (09:51)
[2019-12-06] MEDS: PANTOPRAZOLE SODIUM 40 MG VIAL IVPUSH SCH (09:51)
[2019-12-06] MEDS ORDERED: oxyCODONE HCL 5 MG TABLET PO PRN (10:07)
[2019-12-06] MEDS ORDERED: ONDANSETRON *ODT* 4 MG TABLET SL PRN (10:07)
--- NOTE | 2019-12-06 10:25 | DS ---
Physical Examination Vital Signs: Vital Signs Temperature 98.5 F 12/06/19 06:00 Pulse Rate 90 12/06/19 09:49 Respiratory Rate 18 12/06/19 06:00 Blood Pressure 146/83 12/06/19 09:49 O2 Sat by Pulse Oximetry (%) 97 12/06/19 06:00 Findings/Remarks: TOLERATING LIQUID DIET NO FEVER NO CHILLS VOMITING STOPPED Constitutional: Yes: No Distress Eyes: Yes: WNL HENT: Yes: WNL Neck: Yes: WNL Cardiovascular: Yes: WNL Respiratory: Yes: WNL Gastrointestinal: Yes: WNL Renal/: Yes: WNL Extremities: Yes: Amputation Integumentary: Yes: WNL Wound/Incision: Yes: Clean/Dry Neurological: Yes: Pre-Existing Deficit ...Motor Strength: LLE Psychiatric: Yes: WNL Labs: CBC, BMP 12/05/19 10:25 12/05/19 10:25 Discharge Summary Problems reviewed: Yes Reason For Visit: ACUTE KIDNEY INJURY,INTRACTABLE VOMTING Current Active Problems LIZA (acute kidney injury) (Acute) Intractable vomiting (Acute) Phantom limb pain (Acute) Vomiting (Acute) Procedures: Principal: SONO/CT SCAN Hospital Course: ADMITTED FOR ACUTE GASTROPARESIS TREATED IV FLUIDS, PAIN CONTROL DIET RECOMMENDATIONS Plan of Treatment: GASTROPARESIS DIET NUTRITION CONSULT PAIN MEDICINE OUTPATIENT Condition: Improved - Instructions Diet, Activity, Other Instructions: FREQUENT SMALL MEALS GASTROPARESIS DIET REGLAN FOR 15 DAYS ONLY METOCLOPERMIDE 10MG BEFORE MEALS OUTPATIENT WITH PMD Referrals: Rosalind Giles MD [Primary Care Provider] - Disposition: HOME - Home Medications Comprehensive Discharge Medication List: Ambulatory Orders Pantoprazole Sodium [Protonix -] 40 mg PO DAILY #30 tablet.ec 11/12/19 Sennosides [Senna -] 2 tab PO HS PRN #60 tablet 11/12/19 Acetaminophen [Tylenol .Regular Strength -] 650 mg PO Q4H PRN #90 tablet 12/06/19 Amlodipine Besylate [Norvasc -] 5 mg PO DAILY #30 tablet 12/06/19 Gabapentin [Neurontin -] 300 mg PO TID #90 capsule 12/06/19 Labetalol HCl [Normodyne -] 200 mg PO BID #60 tablet 12/06/19 Metformin HCl [Glucophage] 500 mg PO BID #60 tab 12/06/19 Metoclopramide HCl [Reglan -] 10 mg PO TIDAC #45 tablet 12/06/19 Metoclopramide HCl [Reglan -] 10 mg PO TIDAC 15 Days #45 tablet 12/06/19 Ondansetron [Zofran *Odt*] 4 mg SL Q6H PRN #30 tab 12/06/19 Pantoprazole Sodium [Protonix -] 40 mg PO DAILY #30 tab 12/06/19 Polyethylene Glycol 3350 [Miralax 119 gm Btl -] 17 gm PO TID #1 bottle 12/06/19
[2019-12-06 10:37] VITALS: TEMP 98.2
[2019-12-06] MEDS ORDERED: METOCLOPRAMIDE HCL 10 MG TABLET (FP) PO SCH (11:00)
[2019-12-06] MEDS ORDERED: DOCUSATE SODIUM 100 MG CAPSULE (FP) PO SCH (22:00)
--- NOTE | 2019-12-14 00:22 | PDOC ---
Documentation entered by Julieta Lynch SCRIBE, acting as scribe for Rocky Baltazar MD. Rocky Baltazar MD: This documentation has been prepared by the scribe, Julieta Lynch SCRIBE, under my direction and personally reviewed by me in its entirety. I confirm that the documentation accurately reflects all work, treatment, procedures, and medical decision making performed by me. Attending Attestation - Resident Resident Name: Krzysztof Dinh - ED Attending Attestation I have performed the following: I have examined & evaluated the patient, The case was reviewed & discussed with the resident, I agree w/resident's findings & plan, Exceptions are as noted - HPI HPI: 12/04/19 17:59 54y hx of DM osteomyelitis sp right bka (01/2019), ?gastroparesis vs porphyria presents with complaint of body aches/vomiting for 1 day - Patient states he has these episodes occasionally he was here approximately 1 month ago with the same complaint was feeling better when he was discharged. He feels generally weak, has body aches and has vomited multiple times today that was brownish in nature as well as a diffuse abdominal pain. Denies any fever, chills, shortness of breath, headache, chest pain, back pain, diarrhea/melena. During a previous visit I had discussed with Dr. Haines, his primary care doctor regarding these episodes and there was a concern for porpyria, a urine porphyria test was sent however it was unable to be tested as it was not adequately protected from light. - Physicial Exam PE: 12/04/19 18:27 Exam: GENERAL: The patient is awake, alert, and fully oriented, uncomfortable appearing HEAD: Normocephalic, atraumatic. EYES: extraocular movements intact, sclera anicteric, conjunctiva clear. LUNGS: Breath sounds equal, clear to auscultation bilaterally. HEART: tachycardic ABDOMEN: Soft, nontender, EXTREMITIES: Normal range of motion, no edema, sp aKA LR le NEUROLOGICAL: No facial asymmetry, Normal speech, moving all 4 extremity spontaneously and symmetrically PSYCH: Normal mood, normal affect. SKIN: Warm, Dry, normal turgor, - Medical Decision Making 12/04/19 18:27 Differential for the patient's symptoms includes possible gastroparesis, consider gastritis, porphyria Blood work to evaluate for Pancreatitis, gallbladder/liver disease Will treat the patient symptomatically with antiemetics, fluids for hydration Heart Score/ECG Review - ECG Impressions Comment:: 12/04/19 18:58 Twelve-lead EKG was performed and reviewed by me. There is normal sinus rhythm with a rate of 103 The axis is normal. The intervals are normal. There is normal R wave progression non specific t wave changes Discharge - Discharge Information Problems reviewed: Yes Clinical Impression/Diagnosis: LIZA (acute kidney injury) Vomiting Qualifiers: Vomiting type: unspecified Vomiting Intractability: intractable Nausea presence: with nausea Qualified Code(s): R11.2 - Nausea with vomiting, unspecified Intractable vomiting Qualifiers: Vomiting type: unspecified Nausea presence: unspecified Qualified Code(s): R11.10 - Vomiting, unspecified Condition: Improved Disposition: HOME - Follow up/Referral - Patient Discharge Instructions - Post Discharge Activity
== END 2019-12-06 11:56 | disposition home or self-care (01) | DRG 74 ==
LOC: JER 17:06 → JERBED 21:53 → J7W 12-05 04:58
PROVIDERS: ADMIT Internal Medicine; ATTEND Family Medicine
DX: E11.43 Type 2 diabetes mellitus with diabetic autonomic (poly)neuropathy (principal); N17.9 Acute kidney failure, unspecified; I10 Essential (primary) hypertension; E11.51 Type 2 diabetes mellitus with diabetic peripheral angiopathy without gangrene; Z89.511 Acquired absence of right leg below knee; K31.84 Gastroparesis; G54.6 Phantom limb syndrome with pain; Z79.84 Long term (current) use of oral hypoglycemic drugs
CPT/HCPCS: 36415; 74018-TC-FY; 76775-TC; 80053; 80307; 82150; 82550; 82962; 83690; 83735; 84100; 84110; 84484; 85025; 85027; 85610; 85730; 86850; 86900; 86901; 93005; 93010; 99285-25; J1644; U0003

== ENCOUNTER 2020-01-06 22:43 | Inpatient (IN) | payer MEDICARE, OTHER ==
--- OUTSIDE RECORDS SUMMARY | 2020-01-06 23:22 | XMS ---
:1965 Author Organization [facility] Care Team Providers Name Role Phone Namrata Mcguire NP Unavailable Unavailable Shy Renteria MD Unavailable Unavailable Shy Renteria MD Unavailable Unavailable Shy Renteria MD Unavailable Unavailable Shy Renteria MD Unavailable Unavailable Shy Renteria MD Unavailable Unavailable Shy Renteria MD Unavailable Unavailable Shy Renteria MD Unavailable Unavailable Glen Enriquez Unavailable Unavailable Ted Enriquez Unavailable Unavailable Ted Enriquez Unavailable Unavailable Junior, DO Unavailable Unavailable Voellmicke, V Unavailable Unavailable Bg Carrion MD Unavailable Unavailable Bg Carrion MD Unavailable Unavailable Bg Carrion MD Unavailable Unavailable Bg Carrion MD Unavailable Unavailable Bg Carrion MD Unavailable Unavailable Qasim Unavailable Unavailable MD Jacquelin Unavailable Unavailable MD Jim Unavailable Unavailable MD Jim Unavailable Unavailable Kenya Bullard Unavailable Unavailable MD Nate Unavailable Unavailable Emery Unavailable Unavailable Raffalli Unavailable Unavailable [id number] Unavailable Unavailable Manish Unavailable Unavailable Manish Unavailable Unavailable Manish Unavailable Unavailable Guzman Unavailable Unavailable Emmie Walker MD Unavailable Unavailable Emmie Walker MD Unavailable Unavailable Emmie Walker MD Unavailable Unavailable Emmie Walker MD Unavailable Unavailable MD Pavel Unavailable Unavailable Simone Hoff MD Unavailable Unavailable Simone Hoff MD Unavailable Unavailable Simone Hoff MD Unavailable Unavailable Simone Hoff MD Unavailable Unavailable Carrero Unavailable Unavailable MD Valdemar Unavailable Unavailable MD Joselyn Unavailable Unavailable Balkir Unavailable Unavailable MD Osei Unavailable Unavailable MD Osei Unavailable Unavailable MD Osei Unavailable Unavailable MD Osei Unavailable Unavailable Other Unavailable Unavailable Zaki, M Unavailable Unavailable Yardeni Unavailable Unavailable MD Francesca Unavailable Unavailable CONIGLIARO, ZIA Unavailable Unavailable Armin, H Unavailable Unavailable MD Homero Unavailable Unavailable Cornelius CLINTON, Physician A Unavailable Unavailable MD Yelitza Unavailable Unavailable MD Ivett Unavailable Unavailable LUIS MIGUEL DOUGLASS Unavailable Unavailable Billy, A Unavailable Unavailable MD Deisy Unavailable Unavailable CANONICO Unavailable Unavailable Marizol CLINTON, Physician L Unavailable Unavailable Brauning Unavailable Unavailable MD Nakul Unavailable Unavailable Jeremie Unavailable Unavailable CHANTAL, N Unavailable MD Demi Unavailable Unavailable Jon Back Unavailable Unavailable MD Deborah Unavailable Unavailable Fishman, R Unavailable Unavailable Ross, D Unavailable Unavailable Aidn, GARMENT PRESSER Unavailable Unavailable Arbolino Unavailable Unavailable Gotlieb, M Unavailable Unavailable Graham Unavailable Unavailable MD Michael Unavailable Unavailable MD PRETTY Unavailable Unavailable Jeremie CLINTON APriya Unavailable Unavailable Bg Carrion MD Unavailable Unavailable Bg Carrion MD Unavailable Unavailable Bg Carrion MD Unavailable Unavailable Bg Carrion MD Unavailable Unavailable Bg Carrion MD Unavailable Unavailable JESSEE FRANCIS Unavailable Unavailable Evangelista, J DO Unavailable Unavailable Evangelista, J DO Unavailable Unavailable Evangelista, J DO Unavailable Unavailable Evangelista, J DO Unavailable Unavailable Reilly Smith Unavailable Unavailable Dionisio Unavailable Unavailable Care Unavailable Unavailable Joe Unavailable Unavailable Solitario CLINTON, Physician Unavailable Unavailable Ronnell Thorne Unavailable Unavailable MD Kaleb Unavailable Unavailable MD Montrell Unavailable Unavailable Mic CLINTON, Physician B Unavailable Unavailable SARA SCOTT Unavailable Unavailable ER Unavailable Unavailable Piccorelli Unavailable Unavailable MD DONELL Unavailable Unavailable Kasi Alvarez Unavailable Unavailable Leda, DO Unavailable Unavailable Capflorencia, DPM Unavailable Unavailable MD Mago Unavailable Unavailable BICHARA Unavailable Unavailable MD Adriana Unavailable Unavailable Shelli Unavailable Unavailable May, A Unavailable Unavailable MD Dinorah Unavailable Unavailable [place], L Unavailable Unavailable Close, M Unavailable Unavailable Church, C Unavailable Unavailable Zkyle, N Unavailable Unavailable MD SWATHI Unavailable Unavailable Rachael Brunson MD Unavailable Unavailable Ag Unavailable Unavailable MD Xiao Unavailable Unavailable Escobar Lares Unavailable Unavailable WILLAM Pineda Unavailable Unavailable Ronnell Joe Unavailable Unavailable Re-disclosure Warning The records that you are about to access may contain information from federally- assisted alcohol or drug abuse programs. If such information is present, then the following federally mandated warning applies: This information has been disclosed to you from records protected by federal confidentiality rules (42 CFR part 2). The federal rules prohibit you from making any further disclosure of this information unless further disclosure is expressly permitted by the written consent of the person to whom it pertains or as otherwise permitted by 42 CFR part 2. A general authorization for the release of medical or other information is NOT sufficient for this purpose. The Federal rules restrict any use of the information to criminally investigate or prosecute any alcohol or drug abuse patient.The records that you are about to access may contain highly sensitive health information, the redisclosure of which is protected by Article 27-F of the [facility] Public Health law. If you continue you may haveaccess to information: Regarding HIV / AIDS; Provided by facilities licensed or operated by the [facility] Office of Mental Health; or Provided by the [facility] Office for People With Developmental Disabilities. If such information is present, then the following [facility] mandated warning applies: This information has been disclosed to you from confidential records which are protected by state law. State law prohibits you from making any further disclosure of this information without the specific written consent of the person to whom it pertains, or as otherwise permitted by law. Any unauthorized further disclosure in violation of state law may result in a fine or chcf sentence or both. A general authorization for the release of medical or other information is NOT sufficient authorization for further disclosure. Advance Directives Directive Description Route Supervisor Textiles Printer Status Observation Data S ource(s) Description Advance No completed [facility] Advance No [facility] Advance Yes completed [facility] Allergies and Adverse Reactions Type Description Substance Reaction Status Data Source(s ) 1 SIMON SEED SIMON SEED Nausea / Vomiting NEXTGEN (moderate) 3 ([facility]) 1 sesame oil sesame oil Itching (mild) NEXTGEN ([facility] ) Food allergy SESAME OIL SESAME OIL [facility] Drug allergy Dilaudid Dilaudid exacerbate [facility] Drug allergy No Known No Known [facility] Allergies Allergies [facility] Allergy to Allergy to No known drug NETSMART substance substance allergy ([place] ([facility]) simon seed simon seed VOMITING [facility] Food allergy sesame seed sesame seed ANAPHYLAXIS SV [facility] Food allergy simon seed simon seed [facility] Food allergy No Known Food No Known Food [facility] angela Allergies Allergies [facility] Drug allergy sesame seed sesame seed [facility] Drug allergy No Known Drug No Known Drug [facility] angela Allergies Allergies [facility] Drug allergy No Known No Known [facility] Allergies Allergies [facility] [id number] Sesame Unknown Active [facility] [id number] Seeds Anaphylaxis Active [facility] simon seeds, sesame seeds Encounters Encounter Providers Location Date Indications Data Source(s ) Outpatient Attender: Shanon 01/01/2020 NEXTGEN ([facility] ZakiReferrer: 11:26:00 AM Medic al - [place] [facility]) Outpatient Attender: Shanon 12/31/2019 NEXTGEN ([facility] Zaki 11:08:00 AM Medical - [facility] ) Outpatient Attender: Shanon 12/22/2019 NEXTGEN ([facility] ZakiReferrer: 04:48:00 PM Medic [place] [facility] ) Outpatient Attender: Shanon 12/11/2019 NEXTGEN ([facility] ZakiReferrer: 03:16:00 PM Medic al - [place] Shanon [facility] ) Outpatient Attender: Perico 12/03/2019 NEXTGEN (C daphniemoabdirahman CervantesReferrer: 08:00:00 AM Medica l [place] [facility]) Outpatient Attender: Merrick 11/28/2019 NEXTGEN ([facility] LaurenyReferrer: 01:45:00 PM Medi [place] [facility]on [facility]) Outpatient Attender: Shanon 11/03/2019 NEXTGEN ([facility] HollanderReferrer: 03:15:00 PM Medic al - [place] [employer] [facility]) Outpatient Attender: Parantap 11/03/2019 NEXTGE N ([facility] Joe 02:28:00 PM [facility] [place] [facility]) Outpatient Attender: Shanon 11/03/2019 NEXTGEN ([facility] Zaki 12:54:00 PM [facility] [place] [facility]) Outpatient Attender: Shanon 10/31/2019 NEXTGEN ([facility] HollanderReferrer: 02:54:00 PM Medic al - [place] [employer] [facility]) Outpatient Attender: Shanon 10/30/2019 NEXTGEN ([facility] JohannaanderReferrer: 04:46:00 PM Medic al - [place] [employer] [facility]) Outpatient Attender: Shanon 10/30/2019 NEXTGEN ([facility] Zaki 11:30:00 AM Medical [place] [facility]) Outpatient Attender: Shanon 10/29/2019 NEXTGEN ([facility] JohannaanderAttender: 03:30:00 PM Medic al [place] Horacio [facility]) KanoffReferrer: Shanon Haines Outpatient Attender: Shanon 10/28/2019 NEXTGEN ([facility] HollanderReferrer: 10:47:00 AM Medic al - [place] [employer] [facility]) Outpatient Attender: Luz 10/28/2019 NEXTGEN ( [facility] YardeniReferrer: 12:00:00 AM Medical [place] Luz Yardeni EDT [facility]) Outpatient Attender: Juaquin 10/27/2019 NEXTGEN ([facility] Armin 12:55:00 PM Medical [place] [facility]) Outpatient Attender: Lefty 10/26/2019 NEXTGEN ([facility] Balkir 02:38:00 PM Medical [facility]) Outpatient Attender: Lefty 10/26/2019 NEXTGEN ([facility] BalkirReferrer: 12:00:00 AM [facility] Outpatient Attender: Juaquin 10/25/2019 NEXTGEN ([facility] daphniemount Armin 03:42:00 PM Medical [facility]) Outpatient Attender: Shanon 10/24/2019 NEXTGEN ([facility] Zaki 02:01:00 PM Medical [facility]) Emergency Attender: Lucy ICU-EMERG 10/23/2019 VOMITING/SOB [facility] - Eduardo Elainetender: 03:29:00 AM Hospi grazyna Alessandro Osei EDT - MDAttender: Doctor 10/23/2019 Other 04:18:00 PM EDT VOMITING/SOB Patient discharged. Outpatient Attender: Shanon 10/17/2019 12:56:00 PM [facility] ([facility] EDT Medical [facility]) Outpatient Attender: Shanon 10/16/2019 03:04:00 PM NEXTGEN ([facility] HollanderReferrer: EDT Medica l [facility]) Outpatient Attender: Merrick 10/16/2019 11:30:00 AM [facility] ([facility] Damariseferrer: EDT Medic al - [facility]) Outpatient Attender: Shanon 10/15/2019 04:17:00 PM NEXTGEN ([facility] Zaki EDT Medical [facility]) Outpatient Attender: Shanon 10/10/2019 04:04:00 PM NEXTGEN ([facility] Zaki EDT Medical [facility]) Outpatient Attender: Shanon 10/08/2019 09:18:00 AM NEXTGEN ([facility] Zaki EDT Medical [facility]) Outpatient Attender: Juaquin 10/01/2019 01:39:00 PM NEXTGEN ([facility] ArminReferrer: EDT Medical - [facility] [employer] [facility]) Outpatient Attender: Aracely Joe 10/01/2019 01:17:00 PM NEXTGEN ([facility] EDT Medical - [facility]) Outpatient Attender: Sally 09/30/2019 03:35:00 PM NEXTGEN ([facility] Arbolino EDT Medical - [facility]) Outpatient Attender: Shanon 09/30/2019 08:55:00 AM NEXTGEN ([facility] Zaki EDT Medical - [facility]) Outpatient Attender: Sara 09/27/2019 12:00:00 AM NEXTGEN ([facility] AleahReferrer: Sara ANGULO Tn dical - [facility]) Outpatient Attender: Namrata Mcguire NP 09/26/2019 03:58:00 PM NEXTGEN ([facility] EDT Medical - [facility]) Outpatient Attender: Erasmo 09/25/2019 12:00:00 AM NEXTGEN ([facility] HalbertReferrer: Erasmo EDT M edical - [facility]) Outpatient Attender: Aracely 09/25/2019 12:00:00 AM NEXTGEN ([facility] GuptaReferrer: Parantap [facility] Outpatient Attender: Namrata Mcguire NP 09/24/2019 02:02:00 PM NEXTGEN ([facility] EDT Medical - [facility]) Outpatient Attender: Juaquin Funez 09/24/2019 02:55:00 AM NEXTGEN ([facility] EDT Medical - [facility]) Outpatient Attender: Salvador 09/24/2019 12:00:00 AM NEXTGEN ([facility] PatelReferrer: Salvador EDT Medic al - [facility]) Outpatient Attender: Shanon 09/19/2019 11:30:00 AM NEXTGEN ([facility] HollanderReferrer: EDT Medica l - [facility]) Outpatient Attender: Maurice 09/16/2019 01:00:00 PM NEXTGEN ([facility] AliseReferrer: EDT Medica l - [place] [facility]) Outpatient Attender: Juaquin 09/11/2019 10:15:00 AM NEXTGEN ([facility] GamdenissenikReferrer: Juaquin ANGULO Me dical - [place] [facility]) Outpatient Attender: Shanon 09/10/2019 11:01:00 AM NEXTGEN ([facility] Zaki EDT Medical - [place] [facility]) Outpatient Attender: Juaquin 09/09/2019 02:37:00 PM NEXTGEN ([facility] GamarnikReferrer: EDT Medical - [facility] [employer] [facility]) Outpatient Attender: Sally 09/08/2019 06:23:00 PM NEXTGEN ([facility] Johnolino EDT Medical - [place] [facility]) Outpatient Attender: Erasmo Back 09/08/2019 01:07:00 PM NEXTGEN ([facility] EDT Medical - [place] [facility]) Outpatient Attender: Juaquin 09/08/2019 01:05:00 PM NEXTGEN ([facility] GamarnikReferrer: EDT Medical - [facility] [employer] [facility]) Outpatient Attender: Erasmo 09/08/2019 12:00:00 AM NEXTGEN ([facility] HaljanetReferrer: Erasmo Pena edical - [facility]) Outpatient Attender: Juaquin Funez 09/07/2019 11:53:00 AM NEXTGEN ([facility] EDT Medical - [place] [facility]) Outpatient Attender: Maurice 09/06/2019 12:44:00 PM NEXTGEN ([facility] Carrero EDT Medical [facility] [place] [facility]) Outpatient Attender: Juaquin 09/06/2019 12:00:00 AM NEXTGEN ([facility] GamdenissenikReferrer: Juaquin ANGULO Tn dical - [facility]) Outpatient Attender: Maurice 09/04/2019 05:15:00 PM NEXTGEN ([facility] Carrero EDT Medical [facility] [place] [facility]) Outpatient Attender: Valente 09/04/2019 12:00:00 AM NEXTGEN ([facility] VerasReferrer: EDT Medical - [facility]) Outpatient Attender: Juaquin 09/03/2019 12:53:00 PM NEXTGEN ([facility] GamarnikReferrer: EDT Medical - [facility]) Outpatient Attender: Cole Fishman 09/03/2019 10:32:00 AM NEXTGEN ([facility] EDT Medical - [place] [facility]) Outpatient Attender: Cole 09/03/2019 12:00:00 AM NEXTGEN ([facility] GoldbergReferrer: Cole ANGULO M edical - [facility]) Outpatient Attender: Maurice 09/03/2019 12:00:00 AM NEXTGEN ([facility] RosenbergReferrer: Cole EDT Medical - [facility]) Outpatient Attender: Marianela 09/02/2019 07:30:00 PM NEXTGEN ([facility] Joe EDT Medical - [place] [facility]) Outpatient Attender: Namrata Mcguire NP 08/29/2019 05:43:00 PM NEXTGEN ([facility] EDT Medical - [place] [facility]) Outpatient Attender: John 08/28/2019 12:00:00 AM NEXTGEN ([facility] CollierReferrer: John ANGULO M edical - [facility] Medical [facility]) Outpatient Attender: Luz Donis 08/27/2019 04:28:00 PM NEXTGEN ([facility] EDT [facility] [place] [facility]) Outpatient Attender: Luz 08/27/2019 12:00:00 AM NEXTGEN ([facility] YardeniReferrer: Luz EDT Me dical - [facility]) Outpatient Attender: Juaquin Funez 08/26/2019 01:46:00 AM NEXTGEN ([facility] EDT Medical [facility] [place] [facility]) Outpatient Attender: Juaquin Funez 08/15/2019 06:21:00 PM NEXTGEN ([facility] EDT Medical [facility] [place] [facility]) Outpatient Attender: Shanon 08/14/2019 01:46:00 PM NEXTGEN ([facility] ZakiReferrer: EDT Medica l - [place] [employer] [facility]) Outpatient Attender: Juaquin 08/14/2019 10:15:00 AM NEXTGEN ([facility] ArminReferrer: Juaquin ANGULO Tn dical - [facility]) Outpatient Attender: Juaquin 08/14/2019 12:00:00 AM NEXTGEN ([facility] ArminReferrer: Juaquin ANGULO Tn dical - [facility]) Outpatient Attender: Juaquin Funez 08/13/2019 12:28:00 PM NEXTGEN ([facility] EDT Medical - [place] [facility]) Outpatient Attender: Aracely Joe 08/11/2019 12:02:00 PM NEXTGEN ([facility] EDT Medical - [place] [facility]) Outpatient Attender: Juaquin Funez 08/11/2019 02:10:00 AM NEXTGEN ([facility] EDT Medical - [place] [facility]) Outpatient Attender: Aracely 08/11/2019 12:00:00 AM NEXTGEN ([facility] GuptaReferrer: Parantap EDT M [facility]ical - [facility] Outpatient Attender: Juaquin Funez 08/07/2019 12:23:00 PM NEXTGEN ([facility] EDT Medical - [place] [facility]) Outpatient Attender: Shanon 08/07/2019 12:14:00 PM NEXTGEN (Caremoabdirahman HainesReferrer: EDT Medica l - [place] [employer] [facility]) Outpatient Attender: Juaquin Funez 08/06/2019 01:20:00 PM NEXTGEN ([facility] EDT Medical - [place] [facility]) Outpatient Attender: Aracely Joe 08/05/2019 09:55:00 AM NEXTGEN ([facility] EDT Medical - [place] [facility]) Outpatient Attender: Aracely 08/05/2019 12:00:00 AM NEXTGEN ([facility] GuptaReferrer: Parantap EDT M [facility]ical - [facility] Outpatient Attender: Carlin Land 08/01/2019 03:52:00 PM NEXTGEN ([facility] EDT Medical - [place] [facility]) Outpatient Attender: Juaquin Funez 07/30/2019 04:41:00 PM NEXTGEN ([facility] EDT Medical - [place] [facility]) Outpatient Attender: Carlin Land 07/28/2019 07:20:00 PM NEXTGEN ([facility] EDT Medical - [place] [facility]) Outpatient Attender: Carlin 07/28/2019 12:00:00 AM NEXTGEN ([facility] LeeReferrer: Reyes EDT Medical - [facility]) Outpatient Attender: Juaquin Funez 07/27/2019 11:51:00 AM NEXTGEN ([facility] EDT Medical - [place] [facility]) Outpatient Attender: Juaquin Funez 07/05/2019 11:59:00 AM NEXTGEN ([facility] EDT Medical - [place] [facility]) Outpatient Attender: Juaquin Funez 07/03/2019 03:27:00 AM NEXTGEN ([facility] EDT Medical - [place] [facility]) Inpatient Attender: Physician 06/22/2019 11:52:11 PM [facility] Shanon Fontana EDT - 06/25/2019 [facility] MDAttender: Physician 04:20:00 PM EDT Namrata Haile MDAttender: Myra Naidu DOAttender: ERAdmitter: Physician Shanon Fontana MDConsultant: Lai Chao MD Patient discharged. Outpatient Attender: Nunu 06/09/2019 12:00:00 AM NEXTGEN ([facility] CloseReferrer: Nunu MEDINA Tn dical - [facility]) Outpatient Multicultural Manager: Lavon 06/06/2019 12:00:00 AM NEXTGEN (Richard Carrion MD EST Medical - [facility]) Outpatient Attender: Lai 06/05/2019 12:00:00 AM NEXTGEN ([facility] JeremieReferrer: Juaquin EST Medical - [facility]) Outpatient Multicultural Manager: Lavon 06/05/2019 12:00:00 AM NEXTGEN (Richard Carrion MD EST Medical [facility] ) Inpatient Attender: Physician 06/04/2019 07:45:31 PM [facility] Dequan Jerez EST - 06/10/2019 [facility] MDAttender: Physician Namrata 02:40:00 PM EST Mic MDAttender: Glen [place]: ERAdmitter: Physician Dequan Jerez MDConsultant: Lavon Carrion MDConsultant: Physician Sara Shields MDConsultant: Lai Chao MD Patient discharged. Emergency Attender: GAYATRI 06/04/2019 04:54:00 WEAKNESS, VOMITING [place] CHANTAL PM EST - 06/04/2019 [place] Hospi grazyna 06:34:00 PM EST WEAKNESS, [place]OMITING [place] Patient discharged. Outpatient Attender: TYLER [facility]/2019 [facility] 06:00:00 AM Apieron Outpatient Attender: TYLER 04/24/2019 [facility]ER 10:37:00 AM Apieron Outpatient Attender: Mariano Eddy DPM 04/21/2019 FOOT WOUND [place] 09:57:00 AM [facility] FOOT WOUND Outpatient Attender: TYLER 04/10/2019 11:22:00 [facility] MAC SCOTT Apieron [facility] Outpatient 03/31/2019 09:05:00 PM NE TSMART ([facility] Services) Outpatient Attender: TYLER 03/26/2019 09:34:00 AM H33.01 2 [facility] SARAAdmitter: CSS99 SARA SCOTTReferrer: SARA SCOTT H33.012 Outpatient Attender: TYLER 03/26/2019 06:00:00 H33.012 [facility]: MAC SCOTT [employer] SARAReferrer: TYLER [employer] SARA H33.012 Outpatient Attender: Mehrdad BENDER 03/25/2019 11:24:00 AM [facility] Hoff MDAdmitter: EST - 04/21/2019 [facility] JHOANA CABRERA 12:46:00 PM EST Patient discharged. Attender: 03/25/2019 [facility] [id number] 11:24:[address] Outpatient Attender: SARA SCOTTAdmitter: 03/24/2019 [place] SARA SCOTTReferrer: TYLER, 12:17:00 PM [facility] Emergency Attender: Alessandro Franz MDAttender: ICU- 03/11/2019 A NXIETY S - Eduardo Doctor Other [facility] 08:48:00 PM Carolyn G EST - Hospital 03/12/2019 10:51:00 AM EST ANXIETY Patient discharged. Emergency Attender: Massimo ICU-EMERG 03/08/2019 ANXIETY-WAS HERE M HS - Eduardo Walker MDAttender: 08:18:00 PM EST YESTERDAY Freddy lashonda Doctor Other - 03/08/2019 Hospital 09:19:00 PM EST ANXIETY-WAS HERE YESTERDAY Patient discharged. Emergency Attender: Ravi ICU-EMERG 03/06/2019 HIGH ANXIETY [facility] - Bg [place]: Doctor 08:48:00 PM EST - Carolyn Other 03/07/2019 Hospital 08:00:00 AM EST HIGH ANXIETY Patient discharged. Inpatient Attender: JESSICA BENDER-2NW 02/28/2019 07:00:00 [facility] PRETTYAdmitter: KRISTINA EST [facility] Admission cancelled. Disregard status an d admitted date. Attender: 02/28/2019 [facility] [id number] 07:00:00 PM [place] [address] Outpatient Attender: KRISTINA CURRIEttender: NAPOLEON 02/28/2019 [facility] ECHEVARRIAAdmitter: SIMONE 04:15:00 PM EST - [facility] 04/10/2019 11:55:00 AM EST Patient discharged. Attender: 02/28/2019 [facility] [id number] 04:15:[address] Emergency Attender: Wesley PalaciosonAttender: 5T-EM 02/24/2019 PAIN S - Violeta Doctor Other ERG 01:23:00 AM EST LEFT LEG Kwasi - 02/24/2019 [facility] 02:20:00 AM EST PAIN LEFT LEG Patient discharged. Outpatient Attender: Shy Dexter 02/14/2019 10:02:00 AM LAURENT GONZALEZ F/U Georgina Guy MD [facility] HOSP F/U Outpatient Attender: Juauqin 02/12/2019 NEXTGEN ([facility] [place] 12:32:00 PM EST Medical - [facility]) Inpatient Attender: 01/29/2019 INTRACTABLE [place] Mary Ann Olivas 06:41:00 PM EDT - VOMITING/[facility] MDAttender: 02/11/2019 Brianna Sullivan 10:13:00 AM EST MDAttender: Nancy Brunson MDAttender: Juan Torre MDAdmitter: Nancy Brunson MDConsultant: Say Valentin MDConsultant: Shirin Stock MDConsultant: Sean Pineda NP INTRACTABLE VOMITING/LIZA Patient discharged. Outpatient Attender: Juaquin 01/21/2019 05:26:00 N EXTGEN ([facility] [place] PM EDT Medical - [facility]) Inpatient Attender: Joce 12/27/2018 08:06:00 RIGHT LE DIABETIC [facility] MDAttender: PM EDT - 01/20/2019 [facility] KofiImer 11:32:00 AM EDT MDAttender: Anette Zhao MDAttender: MAU DOUGLASSAdmitter: Anette Zhao MDConsultant: Say Valentin MDConsultant: Sean Pineda GARMENT PRESSER RIGHT LE DIABETIC [facility] Patient discharged. Inpatient Attender: Manas 12/20/2018 08:36:00 [facility] EDT - 12/27/2018 [facility] MDAttender: 10:56:00 AM EDT Calvin Mercedes MDAttender: Monica Manuel MDAttender: Avery Pacheco DOAdmitter: Keysha Tompkins DOConsultant: Yonas Wright MDConsultant: Calvin Mercedes MD SEPSIS Patient discharged. Inpatient Attender: Aron 12/06/2018 INTRACTABLE NAUSEA [facility] MDAttender: 03:30:00 AM EDT - AND VOMIT ING; [facility] 12/18/2018 CHRONIC OSTEOMYEL MDAttender: Gebe 02:55:00 PM EDT Junior DOAdmitter: Aron Fernandez MDConsultant: Sean Pineda NPConsultant: Jennifer Oakley GARMENT PRESSER INTRACTABLE NAUSEA AND VOMITING; CHRONIC OSTEOMYEL Patient discharged. Outpatient Attender: Juaquin 11/18/2018 08:39:00 N EXTGEN ([facility] [place] AM EDT [facility]) Inpatient Attender: Aron 11/14/2018 12:00:00 OSTEOMTEL ITIS [place] Jim MDAttender: PM EDT - 11/25/2018 [facility] 04:48:00 PM EDT MDAttender: Sy Mota MDAttender: Irdis Simms MDAttender: Mynor Root MDAdmitter: Keegan Aldrich MDConsultant: Emmett Ma MD OSTEOMTELITIS Patient discharged. Outpatient Attender: Juaquin 11/11/2018 04:24:00 N EXTGEN ([facility] [place] PM EDT [facility]) Outpatient Attender: Mariano 11/11/2018 12:00:00 N EXTGEN ([facility] Raffalli AM EDT [facility]) Inpatient Attender: Carli 11/06/2018 12:42:00 OSTEOMYE LITIS [place] Joselyn PM EDT - 11/11/2018 Hospi grazyna MDAttender: Krystyna 05:17:00 PM EDT Michael MDAttender: Sy Mota MDAttender: Damion Roper MDAdmitter: Krystyna Rodriguez MDConsultant: Junior Esparza OSTEOMYELITIS Patient discharged. Outpatient Attender: Henrry 11/04/2018 NEX TGEN ([facility] LovejosyReferrer: 05:30:00 PM EDT [facility] Outpatient Attender: Henrry 11/02/2018 NEX TGEN ([facility] Eligio 02:10:00 PM EDT [facility]) Outpatient Attender: Henrry 11/01/2018 NEX TGEN ([facility] Pieter 07:54:00 PM EDT [facility]) Outpatient Attender: Henrry 11/01/2018 NEX TGEN ([facility] LovellReferrer: 05:30:00 PM EDT [facility] ) Outpatient Attender: Christghanshyam 10/30/2018 NEX TGEN ([facility] LovellReferrer: 11:00:00 AM EDT [facility] [place] [facility] ) Outpatient Attender: Henrry 10/23/2018 NEX TGEN ([facility] LovellReferrer: 11:15:00 AM EDT [facility] ) Outpatient Attender: Henrry 10/16/2018 NEX TGEN ([facility] LovellReferrer: 11:15:00 AM EDT [facility] [place] [facility] ) Outpatient Attender: Mariano Munoz 10/09/2018 Bg ELLIS ([facility] 10:35:00 AM EDT [facility]) Outpatient Attender: Henrry 10/09/2018 NEX TGEN ([facility] LovellReferrer: 09:45:00 AM EDT [facility] ) Outpatient Attender: Henrry 10/02/2018 NEX TGEN ([facility] LovellReferrer: 11:15:00 AM EDT [facility] [place] [facility] ) Outpatient Attender: Megan 10/01/2018 NEX TGEN ([facility] 06:14:00 PM EDT [facility]) Outpatient Attender: Henrry 09/25/2018 NEX TGEN ([facility] LovellReferrer: 12:00:00 PM EDT [facility] [place] [facility] ) Outpatient Attender: Henrry 09/23/2018 NEX TGEN ([facility] LovellReferrer: 10:15:00 PM EDT [facility] [place] [facility] ) Outpatient Attender: Mariano Munoz 09/22/2018 N EXTGEN ([facility] 02:18:00 PM EDT Medical [facility]) Outpatient Attender: Mariano 09/22/2018 NEXTGEN ([facility] ShondaiReferrer: Mariano 12:00:00 AM EDT Medical [facility]) Outpatient Attender: Henrry 09/18/2018 NEX TGEN ([facility] [place] 09:36:00 PM EDT Medical [facility]) Outpatient Attender: Christianacareghanshyam 09/18/2018 NEX TGEN ([facility] LovellReferrer: 05:30:00 PM EDT Medi beata [facility] [place] [facility]) Outpatient Attender: Henrry 09/11/2018 NEX TGEN ([facility] LovellReferrer: 10:45:00 AM EDT [facility] [place] [facility]) Outpatient Attender: Adelaide Thorne 09/06/2018 VINCE XTGEN ([facility] 02:24:00 PM EDT Medical [facility]) Outpatient Attender: Shanon 09/04/2018 NEXTGEN ([facility] Zaki 06:34:00 PM EDT Medical [facility]) Outpatient Attender: Shanon 09/03/2018 NEXTGEN ([facility] HollanderReferrer: 12:00:00 AM EDT [facility]) Outpatient Attender: Sara 08/31/2018 NEXTGEN ([facility] RosenReferrer: Sara 12:00:00 AM EDT Medical [facility]) Outpatient 08/29/2018 NEXTGEN ([facility] 12:00:00 AM EDT [facility]) Outpatient Attender: Luz 08/28/2018 NEXTGEN ( [facility] YardeniReferrer: Luz 12:00:00 AM EDT [facility]) Outpatient Attender: Luz 08/27/2018 NEXTGEN ( [facility] YardeniReferrer: Luz 12:00:00 AM EDT [facility]) Outpatient Attender: Shanon 08/26/2018 NEXTGEN ([facility] Zaki 09:51:00 PM EDT Medical [facility]) Outpatient Attender: Christopher 08/26/2018 NEX TGEN ([facility] LovellReferrer: 06:30:00 PM EDT [facility] [place] [facility]) Outpatient Attender: Luz 08/26/2018 NEXTGEN ( [facility] YardeniReferrer: Luz 12:00:00 AM EDT Medical [facility]) Outpatient Attender: Lefty 08/25/2018 NEXTGEN ([facility] BalkirReferrer: Lefty 12:00:00 AM EDT [facility]) Outpatient Attender: Lefty 08/24/2018 NEXTGEN ([facility] BalkirReferrer: Lefty 12:00:00 AM EDT [facility]) Outpatient Attender: Luz 08/23/2018 NEXTGEN ( [facility] YardeniReferrer: Luz 12:00:00 AM EDT [facility]) Outpatient Attender: Luz 08/22/2018 NEXTGEN ( [facility] YardeniReferrer: Luz 12:00:00 AM EDT [facility]) Outpatient Attender: Shanon 08/21/2018 NEXTGEN ([facility] [place]aki 09:38:00 PM EDT [facility]) Outpatient Attender: Jeronimoer 08/21/2018 NEX TGEN ([facility] LovellReferrer: 10:00:00 AM EDT [facility]) Outpatient Attender: Perico Tripp 08/21/2018 NEXTRoly EN ([facility] 09:05:00 AM EDT [facility]) Outpatient Attender: Luz 08/21/2018 NEXTGEN ( [facility] YardeniReferrer: Luz 12:00:00 AM EDT [facility]) Outpatient Attender: Shanon 08/20/2018 NEXTGEN ([facility] [place] 08:47:00 PM EDT [facility]) Outpatient Attender: Henrry 08/20/2018 NEX TGEN ([facility] LovellReferrer: 05:00:00 PM EDT [facility]) Outpatient Attender: Megan Lee 08/20/2018 CHARLIE TGEN ([facility] 08:57:00 AM EDT [facility]) Outpatient Attender: Perico 08/20/2018 NEXTGEN ([facility] LiebReferrer: Megan 12:00:00 AM EDT [facility]) Outpatient Attender: Lefty 08/18/2018 NEXTGEN ([facility] BalkirReferrer: Lefty 12:00:00 AM EDT [facility]) Outpatient Attender: Shanon 08/17/2018 NEXTGEN ([facility] HollanderReferrer: 09:19:00 AM EDT [facility]) Outpatient Attender: Lefty 08/17/2018 NEXTGEN ([facility] BalkirReferrer: Lefty 12:00:00 AM EDT [facility]) Outpatient Attender: Shanon 08/16/2018 NEXTGEN ([facility] [place] 09:12:00 PM EDT [facility]) Outpatient Attender: Henrry 08/16/2018 CHARLIE TGEN ([facility] LovellReferrer: 05:00:00 PM EDT [facility]) Outpatient Attender: Mariano Munoz 08/16/2018 Bg ELLIS ([facility] 12:40:00 AM EDT [facility]) Outpatient Attender: Mariano 08/16/2018 NEXTGEN ([facility] Fabianaferrer: Mariano 12:00:00 AM EDT [facility]) Outpatient Attender: Perico 08/15/2018 NEXTGEN ([facility] BrauningReferrer: Perico 12:00:00 AM EDT [facility]) Outpatient Attender: Abdirahman Ortiz 08/14/2018 Bg EXTGEN ([facility] 02:12:00 PM EDT [facility]) Outpatient Attender: Shanon 08/14/2018 NEXTGEN ([facility] [place] 01:24:00 PM EDT [facility]) Outpatient Attender: Shanon 08/14/2018 NEXTGEN ([facility] HollanderReferrer: 12:00:00 AM EDT [facility]) Outpatient Attender: Abdirahman Ortiz 08/13/2018 Bg EXTGEN ([facility] 05:55:00 PM EDT [facility]) Outpatient Attender: Abdirahman Ortiz 08/12/2018 Bg EXTGEN ([facility] 04:18:00 PM EDT [facility]) Outpatient Attender: Juaquin 08/11/2018 NEXTGEN ([facility] ArminReferrer: Abdirahman 12:00:00 AM EDT [facility]) Outpatient Attender: Juaquin 08/10/2018 TENAGEN ([facility] GigiarnikReferrer: Juaquin 12:00:00 AM EDT [facility]) Outpatient Attender: Shanon 08/10/2018 NEXTGEN ([facility] ZakiReferrer: 12:00:00 AM EDT [facility]) Outpatient Attender: Abdirahman Ortiz 08/08/2018 N EXTGEN ([facility] 03:08:00 PM EDT [facility]) Outpatient Attender: Abdirahman Ortiz 08/05/2018 N EXTGEN ([facility] 04:03:00 PM EDT [facility]) Outpatient Attender: Abdirahman 07/17/2018 TENAGEN ( [facility] AngelReferrer: Abdirahman 02:00:00 PM EDT [facility]) Outpatient Attender: Henrry 07/17/2018 NEX TGSANDRA ([facility] LovellReferrer: 11:00:00 AM EDT [facility] Outpatient Attender: Abdirahman Ortiz 07/16/2018 N EXTGEN ([facility] 04:27:00 PM EDT Medical [facility]) Outpatient Attender: Abdirahman Ortiz 07/15/2018 N EXTGEN ([facility] 04:11:00 PM EDT Medical [facility]) Outpatient Attender: Abdirahman Ortiz 07/15/2018 N EXTGEN ([facility] 12:30:00 PM EDT [facility]) Outpatient Attender: Adelaide Thorne 07/12/2018 NE XTGEN ([facility] 05:21:00 PM EDT [facility]) Outpatient 07/12/2018 NEXTGEN ([facility] 12:00:00 AM EDT [facility]) Outpatient Attender: Cole 07/11/2018 NEXTGEN ( [facility] Fishman 10:58:00 AM EDT [facility]) Outpatient 07/11/2018 NEXTGEN ([facility] 12:00:00 AM EDT [facility]) Outpatient Attender: Abdirahman Ortiz 07/10/2018 N EXTGEN ([facility] 04:00:00 AM EDT [facility]) Outpatient Attender: Cole 07/10/2018 NEXTGEN ( [facility] GoldbergReferrer: Cole 12:00:00 AM EDT [facility]) Outpatient Attender: Luz 07/09/2018 NEXTGEN ( [facility] YardeniReferrer: Luz 12:00:00 AM EDT [facility]) Outpatient Attender: Luz 07/08/2018 NEXTGEN ( [facility] YardeniReferrer: Luz 12:00:00 AM EDT [facility]) Outpatient Attender: Cole 07/07/2018 TENAGEN ( [facility] GoldbergReferrer: Cole 12:00:00 AM EDT Medical [facility]) Outpatient Attender: Luz 07/06/2018 NEXTGEN ( [facility] YardeniReferrer: Luz 12:00:00 AM EDT [facility]) Outpatient Attender: Christopher 07/05/2018 NEX TGEN ([facility] LovellReferrer: 05:15:00 PM EDT [facility] [place] [facility]) Outpatient 07/05/2018 NEXTGEN ([facility] 12:00:00 AM EDT [facility]) Outpatient Attender: Jeronimoer 07/04/2018 NEX TGEN ([facility] LovellReferrer: 07:15:00 PM EDT [facility] [place] [facility]) Outpatient Attender: Namrata Mcguire NP 07/04/2018 Bg EXTGEN ([facility] 01:32:00 PM EDT [facility]) Outpatient 07/04/2018 NEXTGEN ([facility] 12:00:00 AM EDT [facility]) Outpatient Attender: Shanon 07/01/2018 NEXTGEN ([facility] HollanderReferrer: 12:00:00 AM EDT [facility]) Outpatient 06/29/2018 NEXTGEN ([facility] 12:00:00 AM EDT [facility]) Outpatient Attender: Christjennyer 2018 NEX TGEN ([facility] LovellReferrer: 04:30:00 PM EDT [facility] [place] [facility]) Outpatient 2018 NEXTGEN ([facility] 12:00:00 AM EDT [facility]) Outpatient Attender: Henrry 06/27/2018 NEX TGEN ([facility] LovellReferrer: 08:45:00 AM EDT [facility] [place] [facility]) Outpatient Attender: Cole 06/27/2018 NEXTGEN ( [facility] [place] 08:20:00 AM EDT Medical [facility]) Outpatient 06/27/2018 NEXTGEN ([facility] 12:00:00 AM EDT [facility]) Outpatient 06/26/2018 NEXTGEN ([facility] 12:00:00 AM EDT [facility]) Outpatient Attender: Henrry 06/25/2018 NEX TGEN ([facility] LovellReferrer: 05:00:00 PM EDT [facility]) Outpatient Attender: Cole 06/25/2018 NEXTGEN ( [facility] [place] 09:24:00 AM EDT [facility]) Outpatient Attender: Luz 06/25/2018 NEXTGEN ( [facility] YardeniReferrer: Luz 12:00:00 AM EDT [facility]) Outpatient Attender: Henrry 06/24/2018 NEX TGEN ([facility] LovellReferrer: 05:45:00 PM EDT [facility] Outpatient Attender: Cole 06/24/2018 NEXTGEN ( [facility] [place] 09:44:00 AM EDT [facility]) Outpatient Attender: Luz 06/24/2018 NEXTGEN ( [facility] YardeniReferrer: Luz 12:00:00 AM EDT [facility]) Outpatient Attender: Cole 06/23/2018 NEXTGEN ( [facility] [place] 07:04:00 PM EDT [facility]) Outpatient Attender: Cole 06/23/2018 NEXTGEN ( [facility] GoldbergReferrer: Cole 12:00:00 AM EDT [facility]) Outpatient Attender: Perico Cervantes 06/14/2018 Bg JOYCEGEN ([facility] 01:18:00 PM EST [facility]) Outpatient Attender: Eligio 06/14/2018 NEXTGEN ([facility] ellermount Honorioerrer: Eligio Graham 10:45:00 AM EST [facility]) Outpatient Attender: Perico Cervantes 06/13/2018 Bg JOYCEGEN ([facility] 10:14:00 AM EST [facility]) Outpatient Attender: Alec 06/10/2018 OLGA ([facility] VoellmickeReferrer: 02:00:00 PM EST [facility]) Outpatient Attender: Perico 06/06/2018 OLGA ([facility] AryueiraReferrer: Abdirahman 10:40:00 AM EST [facility]) Outpatient Attender: Christianacareghanshyam 06/05/2018 NEX TGEN ([facility] LovellReferrer: 09:00:00 AM EST [facility]) Outpatient Attender: Henrry 05/31/2018 NEX TGEN ([facility] [place] 01:22:00 PM EST [facility]) Outpatient Attender: Glady 05/29/2018 NEX TGEN ([facility] LovellReferrer: 10:15:00 AM EST [facility] [place] [facility] ) Outpatient Attender: Glady 05/22/2018 NEX TGEN ([facility] LovellReferrer: 09:15:00 AM EST [facility] [place] [facility]) Outpatient Attender: Christianacareghanshyam 05/15/2018 NEX TGEN ([facility] LovellReferrer: 10:00:00 AM EST [facility] [place] [facility] ) Outpatient Attender: Christianacareghanshyam 05/08/2018 NEX TGEN ([facility] LovellReferrer: 12:00:00 AM EST [facility] ) Outpatient Attender: Abdirahman Ortiz 03/26/2018 Bg EXTGEN ([facility] 07:39:00 PM EST [facility]) Outpatient Attender: Abdirahman Ortiz 10/18/2017 Bg EXTGEN [facility]ender: ADRIÁN 09/23/2017 VOMITING [facility]: 10[facility]38[facility]00 AM EDT - [facility] JESSEE FRACNIS 10/02/2017 Corporation 07:59:00 PM EDT VOMITING LIZA Functional Status Medications Medication Brand Start Product Dose Route Administrative Pharmacy [facility] Indications Reaction Description Data Name Date Form Instructions Instructions Source(s) Metoclopram METOCL take 1 tablet RP NEXTGEN nae 10 MG OPRAMI by oral route 3 ([facility] Oral Tablet DE HCL times every day Medical - 10 mg 10 mg 30 minutes [place] before meals Medical and at bedtime Group [facility]) This may be an active medication. No end date is available. Start date above may not reflect actual date the medication was s tarted. prucalopride 1 MG MOTEGRITY 12/22/2019 take 2 RP [facility] Oral Tablet 12:00:00 AM EDT tablet by ([facility] [Motegrity] 1 mg oral route Medical - [facility] 1 mg every day [place] [facility]i beata [facility]) This may be an active medication. No end date is available. rifaximin 550 MG XIFAXAN 12/11/2019 take 1 RP [facility] Oral Tablet 12:00:00 AM EDT tablet by ([facility] [XIFAXAN] 550 mg oral route Medical - [place] 550 mg every 8 [place] Medi beata hours. Group PC) This may be an active medication. No end date is available. 5000 MG TESTOSTERONE 12/11/2019 apply (100MG=2 RP N[facility] Testosterone 12:00:00 AM tubes) ([facility] 0.01 MG/MG EDT transdermally Medical - [place] Topical Gel 50 (1 tube = 50 [place] mg/5 gram (1 %) mg) in the Medical 50 mg/5 gram (1 morning to Group PC) %) shoulders and/or upper arms divided evenly between areas This may be an active medication. No end date is available. tadalafil 20 MG TADALAFIL 12/03/2019 take 1 RP [facility] Oral Tablet 20 12:00:00 AM EDT tablet by ([facility] mg 20 mg oral route Medic al - [place] every day [place] [facility]i [facility]ata [facility]) This may be an active medication. No end date is available. 50 ML Sodium SODIUM 10/28/2019 infuse 1 bag by RP [facility] Chloride 9 CHLORIDE 12:00:00 AM intravenous ([facility] MG/ML EDT route 3 times Medic al - Mt Injection 0.9 every week for [place] [facility] % 0.9 % 1 month Please Gr oup PC) give Zofran 8mg IV push with each infusion ferrous FERROUS 09/16/2019 take 1 tablet RP NEXT[facility] sulfate 325 SULFATE 12:00:00 AM by oral route ([facility] MG Oral EDT every other day M edical - Mt Tablet 325 mg [employer] (65 mg iron) Group P C) 325 mg (65 mg iron) This may be an active medication. No end date is available. 1 gram/10 mL 1 09/08/2019 take 10 RP NEXTGEN gram/10 mL 12:00:00 AM EDT milliliter by ([facility] oral route 4 Medical - [place] times every day [place] Medical on an empty Group PC ) stomach 1 hour before meals and at bedtime This may be an active medication. No end date is available. Losartan LOSARTAN 08/15/2019 take 1 RP [facility] Potassium 25 POTASSIUM 12:00:00 AM EDT tablet by ([facility] MG Oral Tablet oral route Medical - Mt 25 mg 25 mg every day [place] [facility]) This may be an active medication. No end date is available. 200 mg/5 mL 200 take 5 milliliter by RP NEXTGEN ([facility] mg/5 mL oral route 3 times Medical - [place] every day 30 minutes Medical Group PC) before meals This may be an active medication. No end date is available. Start date above may not reflect actual date the medication was s tarted. Sucralfate 1000 MG SUCRALFATE take 1 tablet by RP NEXTGEN ([facility] Oral Tablet 1 gram 1 oral route 3 Medical - [place] gram times every day [facility] beata Group [facility]) on an empty stomach This may be an active medication. No end date is available. Start date above may not reflect actual date the medication was s tarted. Osmotic 24 HR NIFEDIPINE ER take 1 tablet RP NEXTGEN ([facility] Nifedipine 30 MG by oral route Medical - [place] Extended Release every day Medical Group PC) Oral Tablet 30 mg 30 mg This may be an active medication. No end date is available. Start date above may not reflect actual date the medication was s tarted. Metformin METFORMIN HCL 08/14/2019 take 1 RP NEXT[facility] hydrochloride 500 12:00:00 AM tablet by ([facility] MG Oral Tablet EDT oral route Medical - Mt 500 mg 500 mg 2 times [place] [facility] every day Group [facility]) with morning and evening meals This may be an active medication. No end date is available. Metoprolol METOPROLOL 08/07/2019 take 1 RP [facility] Tartrate 75 MG TARTRATE 12:00:00 AM tablet by ([facility] Oral Tablet 75 EDT oral route Medical - Mt mg 75 mg 2 times [place] Me dical every day Group PC) This may be an active medication. No end date is available. pantoprazole 40 PANTOPRAZOLE 08/07/2019 take 1 RP NEXTGEN MG Delayed SODIUM 12:00:00 AM tablet by ([facility] Release Oral EDT oral Medical - Mt Tablet 40 mg 40 route 2 K [facility] Medical mg times Group PC) every day This may be an active medication. No end date is available. Simethicone simethicone 06/25/2019 Chewable 80.0 Oral Nuvance 80 MG 80 mg oral 09:57:00 AM Tablet mg 80 mg, = 1 tab, Oral, QID, 0 Refill(s), [facility] - Chewable tablet, EDT [place] Tablet [facility] [place] 80 mg oral tablet, chewable Acetaminophen acetaminophen 06/25/2019 Tablet 650.0 Oral [place] 325 MG Oral 325 mg oral 09:57:00 AM mg 650 mg, = 2 tab, Oral, q6hr, 0 Refill(s), Pain Scale 1 - 3 Health - Tablet tablet EDT [place] acetaminophen Hospit al 325 mg oral Center tablet Metoclopramid Reglan 10 mg 06/10/2019 Tablet 10.0 Oral [place] e 10 MG Oral oral tablet 09:09:00 AM mg 10 mg, = 1 tab, Oral, Before meals, # 90 tab, 0 Refill(s), Pharmacy: [facility]/pharmacy #[id number], 1 tab Oral Before meals Health - Tablet Reglan EST [place] 10 mg oral Hospital tablet Center Lisinopril 20 lisinopril 20 06/10/2019 Tablet 20.0 Oral [place] MG Oral mg oral 09:09:00 AM mg 20 mg, = 1 tab, Oral, Daily, # 30 tab, 0 Refill(s), Pharmacy: [facility]/pharmacy #[id number], 1 tab Oral Daily Health - Tablet tablet [facility] lisinopril 20 Hospit al mg oral Center tablet carvedilol carvedilol 06/10/2019 Tablet 6.25 Oral [place] 6.25 MG Oral 6.25 mg oral 09:09:00 AM mg 6.25 mg, = 1 tab, Oral, BID, # 60 tab, 0 Refill(s), Pharmacy: [facility]/pharmacy #[id number], 1 tab Oral BID Health - Tablet tablet [facility] carvedilol [facility] 6.25 mg oral Center tablet Hydralazine hydrALAZINE 06/10/2019 Tablet 25.0 Oral [place] Hydrochloride 25 mg oral 09:09:00 AM mg 25 mg, = 1 tab, Oral, q8hr, # 90 tab, 0 Refill(s), Pharmacy: [facility]/pharmacy #[id number], 1 tab Oral q8hr Health - 25 MG Oral tablet [facility] hydrALAZINE [place] 25 mg oral tablet metformin [id number] 06/05/2019 Tablet 500.0 Oral [place] 01:15:00 AM mg 500 mg, Oral, BID, 0 Refill(s) Health - [facility] Trazodone traZODone 04/16/2019 1.0 Oral ac [facility] Hydrochloride hydrochloride 05:00:00 AM Tablet ti ([place] 50 MG Oral EST [facility]) Clonazepam KlonoPIN - 04/16/2019 1 ORAL co Kl onoPIN - [facility] 0.5 MG Oral 0.5 MG ORAL 12:00:00 AM Tablet mp 0.5 MG ORAL [facility] Tablet Tablet EST [facility] [Klonopin] te d Clonazepam KlonoPIN - 04/03/2019 1 ORAL co Kl onoPIN - [facility] 0.5 MG Oral 0.5 MG ORAL 12:00:00 AM Tablet mp 0.5 MG ORAL [facility] Tablet Tablet EST Tablet [facility] [Klonopin] te d Fluoxetine 10 PROzac - 10 04/03/2019 1 ORAL co PROzac - 10 [facility] MG Oral MG ORAL 12:00:00 AM Capsul mp MG OR AL [facility] Capsule Capsule EST e [facility] [Prozac] te d Hydroxyzine hydrOXYzine 03/12/2019 1 [id number] ac HydrOXYzine [facility] Hydrochloride hydrochloride 05:14:09 AM {tab(s 8 ti Hydrochlorid Health 50 MG Oral 50 mg oral EST )} ve e Sys tem Tablet tablet hydrOXYzine hydrochloride 50 mg oral tablet May cause drowsiness. Alcohol may inten sify this effect. Use care when operating dangerous machinery.Obtain medical advic e before taking any non-prescription drugs as some may affect the action of this medic ation. Lorazepam 1 Ativan 1 03/08/2019 1 {tab(s)} [id number] aborted Ativan [facility] MG Oral mg oral 08:37:45 PM [facility] Tablet tablet EST System [Ativan] Ativan 1 mg oral tablet Caution federal law prohibits the transf er of this drug to any person other than the person for whom it was prescribed.Do not take this drug if you are .May cause drowsiness. Alcohol may intensify this effect. Use care when operating dangerous machinery. Lorazepam 1 Ativan 1 02/24/2019 1 [id number] aborted Ativan [facility] MG Oral mg oral 02:02:37 AM {tab(s)} Health Tablet tablet EST System [Ativan] Ativan 1 mg oral tablet Metformin Metformin 02/10/2019 TAB 500 mg ORAL active [facility] hydrochlorid Hcl 02:28:00 PM LET [place] e 500 MG EST Hospital Oral Tablet [Glucophage] Metformin Hcl Metocloprami Metoclopr 02/10/2019 TAB 10 mg ORAL active [facility] de 10 MG amide Hcl 02:28:00 PM LET [place] Oral Tablet EST Hospital Metocloprami de Hcl Metformin Metformin 02/10/2019 TAB 500 mg ORAL completed [facility] hydrochlorid Hcl 02:28:00 PM LET [place] e 500 MG EST Hospital Oral Tablet [Glucophage] Metformin Hcl Metocloprami Metoclopr 02/10/2019 TAB 10 mg ORAL completed [facility] de 10 MG amide Hcl 02:28:00 PM LET [place] Oral Tablet EST Hospital Metocloprami de Hcl pregabalin Pregabali 02/09/2019 CAP 75 mg ORAL completed [facility] 75 MG Oral n 06:42:[address] Capsule EST E Hospital [Lyrica] Pregabalin pregabalin Pregabali 02/09/2019 CAP 75 mg ORAL active [facility] 75 MG Oral n 06:42:[address] [facility] Capsule EST E Hospital [Lyrica] Pregabalin duloxetine Duloxetin 02/09/2019 CAP 30 mg ORAL active [facility] 30 MG e Hcl 05:15:00 PM SUL [place] Delayed EST E, Hospital Release Oral EXT Capsule END [Cymbalta] ED Duloxetine REL Hcl EAS E duloxetine Duloxetin 02/09/2019 CAP 30 mg ORAL completed [facility] 30 MG e Hcl 05:15:00 PM SUL [place] Delayed EST E, Hospital Release Oral EXT Capsule END [Cymbalta] ED Duloxetine REL Hcl EAS E Lisinopril Lisinopri 02/09/2019 TAB 40 mg ORAL active [facility] 20 MG Oral l 05:15:[address] [facility] Tablet EST Hospital Hydralazine Hydralazi 02/09/2019 TAB 75 mg ORAL completed [facility] Hydrochlorid ne Hcl 05:15:00 PM LET [place] e 25 MG Oral EST Hospita l Tablet Hydralazine Hcl pantoprazole Pantopraz 02/09/2019 TAB 40 mg ORAL active [facility] 40 MG ole 05:15:00 PM LET [place] Delayed Sodium EST Hospital Release Oral Tablet [Protonix] Pantoprazole Sodium pantoprazole Pantopraz 02/09/2019 TAB 40 mg ORAL completed [facility] 40 MG ole 05:15:00 PM LET [place] Delayed Sodium EST Hospital Release Oral Tablet [Protonix] Pantoprazole Sodium Metoprolol Metoprolo 02/09/2019 TAB 25 mg ORAL completed [facility] Tartrate 25 l 05:15:00 PM LET [facility] MG Oral Tartrate EST Hospital Tablet Amlodipine Amlodipin 02/09/2019 TAB 10 mg ORAL completed [facility] 10 MG Oral e 05:15:[address] Tablet Besylate EST Hospital [[facility]] Amlodipine Besylate Metoprolol Metoprolo 02/09/2019 TAB 25 mg ORAL active [facility] Tartrate 25 l 05:15:00 PM LET [facility] MG Oral Tartrate EST Hospital Tablet Hydralazine Hydralazi 02/09/2019 TAB 75 mg ORAL active [facility] Hydrochlorid ne Hcl 05:15:00 PM LET [place] e 25 MG Oral EST Hospita l Tablet Hydralazine Hcl Amlodipine Amlodipin 02/09/2019 TAB 10 mg ORAL active [facility] 10 MG Oral e 05:15:[address] Tablet Besylate EST Hospital [[facility]] Amlodipine Besylate Lisinopril Lisinopri 02/09/2019 TAB 40 mg ORAL completed [facility] 20 MG Oral l 05:15:[address] [facility] Tablet EST Hospital Insulin Insulin 01/16/2019 UNS 15 SUBCUTANE completed [facility] Glargine 100 Glargine 12:30:00 PM PEC OUS [place] UNT/ML EDT IFI Hospital Injectable ED Solution [Lantus] duloxetine Duloxetin 01/16/2019 CAP 30 mg ORAL completed [facility] 30 MG e Hcl 12:30:00 PM SUL [place] Delayed EDT E, Hospital Release Oral EXT Capsule END [Cymbalta] ED Duloxetine REL Hcl EAS E Nystatin 100 Nystatin 01/16/2019 POW 1 TOPICAL completed [facility] UNT/MG 12:30:00 PM PAZ {Applicat [facility] Topical EDT or} Hospital Powder [Nyamyc] Hydromorphon Hydromorp 01/16/2019 TAB 4 mg ORAL completed [facility] e kimberly Hcl 12:30:00 PM [facility] Hydrochlorid EDT Hospita [facility] e 4 MG Oral Tablet [Dilaudid] Hydromorphon e Hcl pantoprazole Pantopraz 01/16/2019 TAB 40 mg ORAL completed [facility] 40 MG ole 12:30:00 PM LET [place] Delayed Sodium EDT Hospital Release Oral Tablet [Protonix] Pantoprazole Sodium Lisinopril Lisinopri 01/16/2019 TAB 40 mg ORAL completed [facility] 20 MG Oral l 12:30:[address] [facility] Tablet EDT Hospital Hydralazine Hydralazi 01/16/2019 TAB 75 mg ORAL completed [facility] Hydrochlorid ne Hcl 12:30:00 PM LET [place] e 25 MG Oral EDT Hospita l Tablet Hydralazine Hcl Insulin Insulin 01/16/2019 UNS 15 SUBCUTANE completed [facility] Glargine 100 Glargine 12:30:00 PM PEC OUS [place] UNT/ML EDT [facility] Injectable ED Solution [Lantus] Lisinopril Lisinopri 01/16/2019 TAB 40 mg ORAL completed [facility] 20 MG Oral l 12:30:[address] [facility] Tablet EDT Hospital Hydromorphon Hydromorp 01/16/2019 TAB 4 mg ORAL completed [facility] e kimberly Hcl 12:30:00 PM [facility] Hydrochlorid EDT Hospita [facility] e 4 MG Oral Tablet [Dilaudid] Hydromorphon e Hcl Acetaminophe Acetamino 01/16/2019 TAB 975 mg ORAL completed [facility] n 325 MG phen 12:30:00 PM [facility] Oral Tablet EDT Hospital Nystatin 100 Nystatin 01/16/2019 POW 1 TOPICAL completed [facility] UNT/MG 12:30:00 PM PAZ {Applicat [facility] Topical EDT or} Hospital Powder [Nyamyc] Dextromethor Guaifenes 01/16/2019 LIQ 5 mL ORAL completed [facility] sexton in/Dextro 12:30:00 PM UID [facility] Hydrobromide methorpha EDT Ho spital 2 MG/ML / n Guaifenesin 20 MG/ML Oral Solution Guaifenesin/ Dextromethor sexton duloxetine Duloxetin 01/16/2019 CAP 30 mg ORAL completed [facility] 30 MG e Hcl 12:30:00 PM SUL [place] Delayed EDT E, Hospital Release Oral EXT Capsule END [Cymbalta] ED Duloxetine REL Hcl EAS E Metoprolol Metoprolo 01/16/2019 TAB 25 mg ORAL completed [facility] Tartrate 25 l 12:30:00 PM LET [facility] MG Oral Tartrate EDT Hospital Tablet Hydromorphon Hydromorp 01/16/2019 TAB 2 mg ORAL completed [facility] e kimberly Hcl 12:30:00 PM [facility] Hydrochlorid EDT Hospita [facility] e 2 MG Oral Tablet [Dilaudid] Hydromorphon e Hcl pregabalin Pregabali 01/16/2019 CAP 75 mg ORAL completed [facility] 75 MG Oral n 12:30:[address] Capsule EDT E Hospital [[facility]] Pregabalin pantoprazole Pantopraz 01/16/2019 TAB 40 mg ORAL completed [facility] 40 MG ole 12:30:00 PM LET [place] Delayed Sodium EDT Hospital Release Oral Tablet [Protonix] Pantoprazole Sodium Dextromethor Guaifenes 01/16/2019 LIQ 5 mL ORAL completed [facility] sexton in/Dextro 12:30:00 PM UID [facility] Hydrobromide methorpha EDT Ho spital 2 MG/ML / n Guaifenesin 20 MG/ML Oral Solution Guaifenesin/ Dextromethor sexton pantoprazole Pantopraz 01/16/2019 TAB 40 mg ORAL completed [facility] 40 MG ole 12:30:00 PM LET [place] Delayed Sodium EDT Hospital Release Oral Tablet [Protonix] Pantoprazole Sodium pregabalin Pregabali 01/16/2019 CAP 75 mg ORAL completed [facility] 75 MG Oral n 12:30:[address] [facility] Capsule EDT E Hospital [[facility]] Pregabalin Acetaminophe Acetamino 01/16/2019 TAB 975 mg ORAL completed [facility] n 325 MG phen 12:30:00 PM [facility] Oral Tablet EDT Hospital Metocloprami Metoclopr 01/16/2019 TAB 10 mg ORAL completed [facility] de 10 MG amide Hcl 12:30:00 PM LET [place] Oral Tablet EDT Hospital Metocloprami de Hcl duloxetine Duloxetin 01/16/2019 CAP 30 mg ORAL completed [facility] 30 MG e Hcl 12:30:00 PM SUL [place] Delayed EDT E, Hospital Release Oral EXT Capsule END [Cymbalta] ED Duloxetine REL Hcl EAS E Lidocaine Lidocaine 01/16/2019 PAT 1 {Patch} TOPICAL completed [facility] Hydrochlorid 12:30:00 PM CH [place] e 0.05 MG/MG EDT Hospita l Transdermal Patch [Lidoderm] Hydralazine Hydralazi 01/16/2019 TAB 75 mg ORAL completed [facility] Hydrochlorid ne Hcl 12:30:00 PM LET [place] e 25 MG Oral EDT Hospita l Tablet Hydralazine Hcl pregabalin Pregabali 01/16/2019 CAP 75 mg ORAL completed [facility] 75 MG Oral n 12:30:[address] [facility] Capsule EDT E [facility] [[facility]] Pregabalin Acetaminophe Acetamino 01/16/2019 TAB 975 mg ORAL completed [facility] n 325 MG phen 12:30:00 PM [facility] Oral Tablet EDT Hospital Lisinopril Lisinopri 01/16/2019 TAB 40 mg ORAL completed [facility] 20 MG Oral l 12:30:[address] [facility] Tablet EDT Hospital Metocloprami Metoclopr 01/16/2019 TAB 10 mg ORAL completed [facility] de 10 MG amide Hcl 12:30:00 PM LET [place] Oral Tablet EDT Hospital Metocloprami de Hcl Insulin Insulin 01/16/2019 UNS 15 SUBCUTANE completed [facility] Glargine 100 Glargine 12:30:00 PM PEC OUS [place] UNT/ML EDT IFI Hospital Injectable ED Solution [Lantus] Insulin Insulin 01/16/2019 UNS 0 SUBCUTANE completed [facility] Lispro 100 Human 12:30:00 PM PEC OUS [facility] UNT/ML Lispro EDT [facility] Injectable ED Solution [Humalog] Insulin Human Lispro Metocloprami Metoclopr 01/16/2019 TAB 10 mg ORAL completed [facility] de 10 MG amide Hcl 12:30:00 PM LET [place] Oral Tablet EDT Hospital Metocloprami de Hcl Nystatin 100 Nystatin 01/16/2019 POW 1 TOPICAL completed [facility] UNT/MG 12:30:00 PM PAZ {Applicat [facility] Topical EDT or} Hospital Powder [Nyamyc] Metoprolol Metoprolo 01/16/2019 TAB 25 mg ORAL completed [facility] Tartrate 25 l 12:30:00 PM LET [facility] MG Oral Tartrate EDT Hospital Tablet Lidocaine Lidocaine 01/16/2019 PAT 1 {Patch} TOPICAL completed [facility] Hydrochlorid 12:30:00 PM [facility] [place] e 0.05 MG/MG EDT Hospita l Transdermal Patch [Lidoderm] Lidocaine Lidocaine 01/16/2019 PAT 1 {Patch} TOPICAL completed [facility] Hydrochlorid 12:30:00 PM CH [place] e 0.05 MG/MG EDT Hospita l Transdermal Patch [Lidoderm] Hydralazine Hydralazi 01/16/2019 TAB 75 mg ORAL completed [facility] Hydrochlorid ne Hcl 12:30:00 PM LET [place] e 25 MG Oral EDT Hospita l Tablet Hydralazine Hcl Hydromorphon Hydromorp 01/16/2019 TAB 2 mg ORAL completed [facility] e kimberly Hcl 12:30:00 PM [facility] Hydrochlorid EDT Hospita [facility] e 2 MG Oral Tablet [Dilaudid] Hydromorphon e Hcl Metoprolol Metoprolo 01/16/2019 TAB 25 mg ORAL completed [facility] Tartrate 25 l 12:30:00 PM LET [facility] MG Oral Tartrate EDT Hospital Tablet Hydromorphon Hydromorp 01/16/2019 TAB 4 mg ORAL completed [facility] e kimberly Hcl 12:30:00 PM [facility] Hydrochlorid EDT Hospita [facility] e 4 MG Oral Tablet [Dilaudid] Hydromorphon e Hcl Insulin Insulin 01/16/2019 UNS 0 SUBCUTANE completed [facility] Lispro 100 Human 12:30:00 PM PEC OUS [facility] UNT/ML Lispro EDT [facility] Injectable ED Solution [Humalog] Insulin Human Lispro Insulin Insulin 01/16/2019 UNS 0 SUBCUTANE completed [facility] Lispro 100 Human 12:30:00 PM PEC OUS [facility] UNT/ML Lispro EDT [facility] Injectable ED Solution [Humalog] Insulin Human Lispro Hydromorphon Hydromorp 01/16/2019 TAB 2 mg ORAL completed [facility] e kimberly Hcl 12:30:00 PM [facility] Hydrochlorid EDT Hospita [facility] e 2 MG Oral Tablet [Dilaudid] Hydromorphon e Hcl Dextromethor Guaifenes 01/16/2019 LIQ 5 mL ORAL completed [facility] sexton in/Dextro 12:30:00 PM UID [facility] Hydrobromide methorpha EDT Ho spital 2 MG/ML / n Guaifenesin 20 MG/ML Oral Solution Guaifenesin/ Dextromethor sexton pantoprazole Pantopraz 12/18/2018 TAB 40 mg ORAL completed [facility] 40 MG ole 09:27:00 AM LET [place] Delayed Sodium EDT Hospital Release Oral Tablet [Protonix] Pantoprazole Sodium pantoprazole Pantopraz 12/18/2018 TAB 40 mg ORAL completed [facility] 40 MG ole 09:27:00 AM LET [place] Delayed Sodium EDT Hospital Release Oral Tablet [Protonix] Pantoprazole Sodium pantoprazole Pantopraz 12/18/2018 TAB 40 mg ORAL completed [facility] 40 MG ole 09:27:00 AM LET [place] Delayed Sodium EDT Hospital Release Oral Tablet [Protonix] Pantoprazole Sodium pantoprazole Pantopraz 12/18/2018 TAB 40 mg ORAL completed [facility] 40 MG ole 09:27:00 AM LET [place] Delayed Sodium EDT Hospital Release Oral Tablet [Protonix] Pantoprazole Sodium pantoprazole Pantopraz 12/18/2018 TAB 40 mg ORAL completed [facility] 40 MG ole 09:27:00 AM LET [place] Delayed Sodium EDT Hospital Release Oral Tablet [Protonix] Pantoprazole Sodium Amlodipine Amlodipin 12/18/2018 TAB 10 mg ORAL completed [facility] 10 MG Oral e 09:18:[address] [facility] Tablet Besylate EDT Hospital [[facility]] Amlodipine Besylate Metocloprami Metoclopr 12/18/2018 TAB 10 mg ORAL completed [facility] de 10 MG amide Hcl 09:18:00 AM LET [place] Oral Tablet EDT Hospital [[facility]] Metocloprami de Hcl Erythromycin Erythromy 12/18/2018 CAP 250 mg ORAL completed [facility] 250 MG jesús Base 09:18:[address] [facility] Delayed EDT E, Hospital Release Oral DEL Capsule AYE Erythromycin D Base REL EAS E Amlodipine Amlodipin 12/18/2018 TAB 10 mg ORAL completed [facility] 10 MG Oral e 09:18:[address] [facility] Tablet Besylate EDT Hospital [[facility]] Amlodipine Besylate Erythromycin Erythromy 12/18/2018 CAP 250 mg ORAL completed [facility] 250 MG jesús Base 09:18:[address] [facility] Delayed EDT E, Hospital Release Oral DEL Capsule AYE Erythromycin D Base REL EAS E Amylases Amylase/L 12/18/2018 CAP 4 ORAL completed [facility] [id number] UNT / ipase/Pro 09:18:00 AM SUL {Capsule} [place]opept[place] [address] UNT DEL / Lipase AYE 6000 UNT D Delayed REL Release Oral EAS Capsule E [Creon] Amylase/Lipa se/Protease Erythromycin Erythromy 12/18/2018 CAP 250 mg ORAL completed [facility] 250 MG jesús [employer] 09:18:[address] [facility] Delayed EDT E, Hospital Release Oral DEL Capsule AYE Erythromycin D Base REL EAS E Amylases Amylase/L 12/18/2018 CAP 4 ORAL completed [facility] [id number] UNT / ipase/Pro 09:18:00 AM SUL {Capsule} [place]opept[place] [address] UNT DEL / Lipase AYE 6000 UNT D Delayed REL Release Oral EAS Capsule E [Creon] Amylase/Lipa se/Protease Metocloprami Metoclopr 12/18/2018 TAB 10 mg ORAL completed [facility] de 10 MG amide Hcl 09:18:00 AM LET [place] Oral Tablet EDT Hospital [[facility]] Metocloprami de Hcl Metocloprami Metoclopr 12/18/2018 TAB 10 mg ORAL completed [facility] de 10 MG amide Hcl 09:18:00 AM LET [place] Oral Tablet EDT Hospital [[facility]] Metocloprami de Hcl Amylases Amylase/L 12/18/2018 CAP 4 ORAL completed [facility] [address]80[address] UNT / ipase/Pro 09:18:00 AM SUL {Capsule} [place]pt[place] [address] UNT DEL / Lipase AYE 6000 UNT D Delayed REL Release Oral EAS Capsule E [Creon] Amylase/Lipa se/Protease Amylases Amylase/L 12/18/2018 CAP 4 ORAL completed [facility] 36592 UNT / ipase/Pro 09:18:00 AM SUL {Capsule} [place] [address] UNT DEL / Lipase AYE 6000 UNT D Delayed REL Release Oral EAS Capsule E [Creon] Amylase/Lipa se/Protease Amlodipine Amlodipin 12/18/2018 TAB 10 mg ORAL completed [facility] 10 MG Oral e 09:18:[address] Tablet Besylate EDT Hospital [[facility]] Amlodipine Besylate Erythromycin Erythromy 12/18/2018 CAP 250 mg ORAL completed [facility] 250 MG jesús Base 09:18:[address] [facility] Delayed EDT E, Hospital Release Oral DEL Capsule AYE Erythromycin D Base REL EAS E Metocloprami Metoclopr 12/18/2018 TAB 10 mg ORAL completed [facility] de 10 MG amide Hcl 09:18:00 AM LET [place] Oral Tablet EDT Hospital [[facility]] Metocloprami de Hcl Amylases Amylase/L 12/18/2018 CAP 4 ORAL completed [facility] [id number] UNT / ipase/Pro 09:18:00 AM SUL {Capsule} [place] [address] UNT DEL / Lipase AYE 6000 UNT D Delayed REL Release Oral EAS Capsule E [Creon] Amylase/Lipa se/Protease Amlodipine Amlodipin 12/18/2018 TAB 10 mg ORAL completed [facility] 10 MG Oral e 09:18:[address] [facility] Tablet Besylate EDT [facility] [[facility]] Amlodipine Besylate Metocloprami Metoclopr 12/18/2018 TAB 10 mg ORAL completed [facility] de 10 MG amide Hcl 09:18:00 AM LET [place] Oral Tablet EDT Hospital [[facility]] Metocloprami de Hcl Erythromycin Erythromy 12/18/2018 CAP 250 mg ORAL completed [facility] 250 MG jesús [facility] 09:18:[address] [facility] Delayed EDT E, Hospital Release Oral DEL Capsule AYE Erythromycin D Base REL EAS E Amlodipine Amlodipin 12/18/2018 TAB 10 mg ORAL completed [facility] 10 MG Oral e 09:18:[address] [facility] Tablet Besylate EDT [facility] [[facility]] Amlodipine Besylate doxycycline Doxycycli 11/25/2018 CAP 100 mg ORAL completed [facility] hyclate 100 ne 02:52:00 PM SUL [facility] MG Oral Hyclate EDT E, Hospital Capsule DEL [Vibramycin] AYE Doxycycline D Hyclate REL EAS E doxycycline Doxycycli 11/25/2018 CAP 100 mg ORAL completed [facility] hyclate 100 ne 02:52:00 PM SUL [facility] MG Oral Hyclate EDT E, Hospital Capsule DEL [Vibramycin] AYE Doxycycline D Hyclate REL EAS E doxycycline Doxycycli 11/25/2018 CAP 100 mg ORAL completed [facility] hyclate 100 ne 02:52:00 PM SUL [facility] MG Oral Hyclate EDT E, Hospital Capsule DEL [Vibramycin] AYE Doxycycline D Hyclate REL EAS E doxycycline Doxycycli 11/25/2018 CAP 100 mg ORAL completed [facility] hyclate 100 ne 02:52:00 PM SUL [facility] MG Oral Hyclate EDT E, Hospital Capsule DEL [Vibramycin] AYE Doxycycline D Hyclate REL EAS E doxycycline Doxycycli 11/25/2018 CAP 100 mg ORAL completed [facility] hyclate 100 ne 02:52:00 PM SUL [facility] MG Oral Hyclate EDT E, Hospital Capsule DEL [Vibramycin] AYE Doxycycline D Hyclate REL EAS E doxycycline Doxycycli 11/25/2018 CAP 100 mg ORAL completed [facility] hyclate 100 ne 02:52:00 PM SUL [facility] MG Oral Hyclate EDT E, Hospital Capsule DEL [Vibramycin] AYE Doxycycline D Hyclate REL EAS E Glipizide 5 Glipizide 11/25/2018 TAB 5 mg ORAL completed [facility] MG Oral 02:47:00 PM LET [place] [facility] EDT Hospital [Glucotrol] gabapentin Gabapenti 11/25/2018 CAP 300 mg ORAL completed [facility] 300 MG Oral n 02:47:00 PM [facility]UL [facility] Capsule EDT E Hospital [Neurontin] Gabapentin gabapentin Gabapenti 11/25/2018 CAP 300 mg ORAL completed [facility] 300 MG Oral n 02:47:00 PM [facility] Capsule EDT E Hospital [Neurontin] Gabapentin Glipizide 5 Glipizide 11/25/2018 TAB 5 mg ORAL completed [facility] MG Oral 02:47:00 PM [facility] Tablet [facility]T [facility] [Glucotrol] gabapentin Gabapenti 11/25/2018 CAP 300 mg ORAL completed [facility] 300 MG Oral n 02:47:00 PM [facility] Capsule EDT E Hospital [Neurontin] Gabapentin Glipizide 5 Glipizide 11/25/2018 TAB 5 mg ORAL completed [facility] MG Oral 02:47:00 PM [facility] Tablet [facility]T [facility] [Glucotrol] Erythromycin Erythromy 11/25/2018 DAVID 200 mg ORAL completed [facility] Ethylsuccina jesús 02:47:00 PM PEN [place] te 40 MG/ML Ethylsucc EDT [facility] Oral inate N Suspension [E.E.S.] Erythromycin Erythromy 11/25/2018 DAVID 200 mg ORAL completed [facility] Ethylsuccina jesús 02:47:00 PM PEN [place] te 40 MG/ML Ethylsucc EDT [facility] Oral inate N Suspension [E.E.S.] Erythromycin Erythromy 11/25/2018 DAVID 200 mg ORAL completed [facility] Ethylsuccina jesús 02:47:00 PM PEN [place] te 40 MG/ML Ethylsucc EDT [facility] Oral inate N Suspension [E.E.S.] Erythromycin Erythromy 11/25/2018 DAVID 200 mg ORAL completed [facility] Ethylsuccina jesús 02:47:00 PM PEN [place] te 40 MG/ML Ethylsucc EDT [facility] Oral inate N Suspension [E.E.S.] gabapentin Gabapenti 11/25/2018 CAP 300 mg ORAL completed [facility] 300 MG Oral n 02:47:00 PM [facility] Capsule EDT E Hospital [Neurontin] Gabapentin Erythromycin Erythromy 11/25/2018 DAVID 200 mg ORAL completed [facility] Ethylsuccina jesús 02:47:00 PM PEN [place] te 40 MG/ML Ethylsucc EDT [facility] Oral inate N Suspension [E.E.S.] Glipizide 5 Glipizide 11/25/2018 TAB 5 mg ORAL completed [facility] MG Oral 02:47:00 PM [facility] Tablet [facility] [Glucotrol] gabapentin Gabapenti 11/25/2018 CAP 300 mg ORAL completed [facility] 300 MG Oral n 02:47:00 PM [facility] Capsule EDT E Hospital [Neurontin] Gabapentin gabapentin Gabapenti 11/25/2018 CAP 300 mg ORAL completed [facility] 300 MG Oral n 02:47:00 PM [facility] Capsule EDT E Hospital [Neurontin] Gabapentin Erythromycin Erythromy 11/25/2018 DAVID 200 mg ORAL completed [facility] Ethylsuccina jesús 02:47:00 PM PEN [place] te 40 MG/ML Ethylsucc EDT [facility] Oral inate N Suspension [E.E.S.] Glipizide 5 Glipizide 11/25/2018 TAB 5 mg ORAL completed [facility] MG Oral 02:47:00 PM [facility] [place] [facility] Tablet [facility]T [facility] [Glucotrol] Glipizide 5 Glipizide 11/25/2018 TAB 5 mg ORAL completed [facility] MG Oral 02:47:00 PM [facility] Tablet [facility]T [facility] [Glucotrol] Levofloxacin Levofloxa 11/11/2018 TAB 750 mg ORAL completed [facility] 750 MG Oral jesús 02:30:00 PM [facility] Tablet EDT Hospital Levofloxacin Levofloxa 11/11/2018 TAB 750 mg ORAL completed [facility] 750 MG Oral jesús 02:30:00 PM [facility] Tablet EDT Hospital Levofloxacin Levofloxa 11/11/2018 TAB 750 mg ORAL completed [facility] 750 MG Oral jesús 02:30:00 PM [facility] Tablet EDT Hospital Levofloxacin Levofloxa 11/11/2018 TAB 750 mg ORAL completed [facility] 750 MG Oral jesús 02:30:00 PM [facility] Tablet EDT Hospital Levofloxacin Levofloxa 11/11/2018 TAB 750 mg ORAL completed [facility] 750 MG Oral jesús 02:30:00 PM [facility] Tablet EDT Hospital Levofloxacin Levofloxa 11/11/2018 TAB 750 mg ORAL completed [facility] 750 MG Oral jesús 02:30:00 PM [facility] Tablet EDT Hospital gabapentin Gabapenti 11/10/2018 CAP 100 mg ORAL completed [facility] 100 MG Oral n 06:02:00 PM SUL [facility] Capsule EDT E Hospital Gabapentin Lisinopril Lisinopri 11/10/2018 TAB 20 mg ORAL completed [facility] 20 MG Oral l 06:02:[address] Tablet EDT Hospital COLLAGENASE Collagena 11/10/2018 OIN 1 TOPICAL completed [facility] 0.25 UNT/MG se 06:02:00 PM [facility] Hospital Ointment [Santyl] Collagenase gabapentin Gabapenti 11/10/2018 CAP 100 mg ORAL completed [facility] 100 MG Oral n 06:02:00 PM [facility]UL [facility] Capsule EDT E Hospital Gabapentin COLLAGENASE Collagena 11/10/2018 OIN 1 TOPICAL completed [facility] 0.25 UNT/MG se 06:02:00 PM TME {Applicat [place] Topical EDT NT or} Hospital Ointment [Santyl] Collagenase gabapentin Gabapenti 11/10/2018 CAP 100 mg ORAL completed [facility] 100 MG Oral n 06:02:00 PM [facility] Capsule EDT E Hospital Gabapentin Amlodipine 5 Amlodipin 11/10/2018 TAB 5 mg ORAL completed [facility] MG Oral e 06:02:00 PM [facility] Tablet Besylate EDT [facility] [[facility]] Amlodipine Besylate gabapentin Gabapenti 11/10/2018 CAP 100 mg ORAL completed [facility] 100 MG Oral n 06:02:00 PM [facility] Capsule EDT E Hospital Gabapentin gabapentin Gabapenti 11/10/2018 CAP 100 mg ORAL completed [facility] 100 MG Oral n 06:02:00 PM [facility] Capsule EDT E Hospital Gabapentin Lisinopril Lisinopri 11/10/2018 TAB 20 mg ORAL completed [facility] 20 MG Oral l 06:02:00 PM LET [facility] Tablet EDT [facility] Lisinopril Lisinopri 11/10/2018 TAB 20 mg ORAL completed [facility] 20 MG Oral l 06:02:00 PM LET [facility] Tablet EDT [facility] Amlodipine 5 Amlodipin 11/10/2018 TAB 5 mg ORAL completed [facility] MG Oral e 06:02:00 PM [facility] Tablet Besylate EDT [facility] [[facility]] Amlodipine Besylate Lisinopril Lisinopri 11/10/2018 TAB 20 mg ORAL completed [facility] 20 MG Oral l 06:02:00 PM [facility] Health EDT [facility] Lisinopril Lisinopri 11/10/2018 TAB 20 mg ORAL completed [facility] 20 MG Oral l 06:02:00 PM LET [facility] Tablet EDT [facility] gabapentin Gabapenti 11/10/2018 CAP 100 mg ORAL completed [facility] 100 MG Oral n 06:02:00 PM SUL P lains Capsule EDT E Hospital Gabapentin Amlodipine 5 Amlodipin 11/10/2018 TAB 5 mg ORAL completed [facility] MG Oral e 06:02:00 PM LET Plain s Tablet Besylate EDT [facility] [[facility]] Amlodipine Besylate COLLAGENASE Collagena 11/10/2018 OIN 1 TOPICAL completed [facility] 0.25 UNT/MG se 06:02:00 PM TME {Applicat [place] Topical EDT NT or} [facility] Ointment [Santyl] Collagenase COLLAGENASE Collagena 11/10/2018 OIN 1 TOPICAL completed [facility] 0.25 UNT/MG se 06:02:00 PM TME {Applicat [place] Topical EDT NT or} Hospital Ointment [Santyl] Collagenase Amlodipine 5 Amlodipin 11/10/2018 TAB 5 mg ORAL completed White MG Oral e 06:02:00 PM LET Plain [facility] Tablet Besylate EDT Hospital [[facility]] Amlodipine Besylate Lisinopril Lisinopri 11/10/2018 TAB 20 mg ORAL completed [facility] 20 MG Oral l 06:02:[address] [facility] Tablet EDT Hospital Amlodipine 5 Amlodipin 11/10/2018 TAB 5 mg ORAL completed White MG Oral e 06:02:00 PM LET Plain s Tablet Besylate EDT [facility] [[facility]] Amlodipine Besylate COLLAGENASE Collagena 11/10/2018 OIN 1 TOPICAL completed [place] 0.25 UNT/MG se 06:02:00 PM TME {Applicat [place] Topical EDT NT or} Hospital Ointment [Santyl] Collagenase COLLAGENASE Collagena 11/10/2018 OIN 1 TOPICAL completed [facility] 0.25 UNT/MG se 06:02:00 PM TME {Applicat [place] Topical EDT NT or} Hospital Ointment [Santyl] Collagenase Amlodipine 5 Amlodipin 11/10/2018 TAB 5 mg ORAL completed [facility] MG Oral e 06:02:00 PM LET Plain s Tablet Besylate EDT [facility] [[facility]] Amlodipine Besylate ertapenem ERTAPENEM 07/13/2018 in RP NEXTGEN 1000 MG 12:00:00 AM fu ([facility] Injection 1 EDT se Medical - gram 1 gram (1 [place] [facility]) y in tr av en ou s ro ut e ev er y da y This may be an active medication. No end date is available. "" "" 07/13/2018 12:00:00 Apply daily and prn RP NEXTGEN ([facility] AM EDT to bilateral lower Medical - [place] extremity wounds Med ical [facility]) (after cleansing with Vashe), Then, cover with 4x4's, ABD, and wrap with kerlix. This may be an active medication. No end date is available. 1.5 gram/250 mL 07/13/2018 IV Piggyback, RP NEXTGEN 1.5 gram/250 mL 12:00:00 AM EDT daily ([facility] This may be an active medication. No end date is available. 0.033 % 0.033 07/13/2018 30mL topically RP NEXTGEN ([facility] % 12:00:00 AM EDT daily and PRN (to Medical - [place] cleanse bilateral Me dical [facility]) lower extremity wounds), then apply hydrogel, cover with 4x4's, ABD, and wrap with kerlix. This may be an active medication. No end date is available. Metformin METFORMIN HCL 11/19/2017 take by RP NEXTGEN hydrochloride 12:00:00 AM Oral route ([facility] 1000 MG Oral EDT 1 tablet Med ical - Mt Tablet 1,000 mg po BID [facility] mg Group [facility]) This may be an active medication. No end date is available. Levofloxacin Levofloxacin TABLET 750 ORAL completed [place] 750 MG Oral mg [place] [facility] 24 HR Metformin Metformin Hcl TABLET, 1 ORAL completed [place] hydrochloride EXTENDED {Caps P lains 1000 MG RELEASE ule} [facility] Extended Release Oral Tablet [Fortamet] Metformin Hcl 24 HR Metformin Metformin Hcl TABLET, 1 ORAL completed [facility] hydrochloride EXTENDED {Caps P lains 1000 MG RELEASE ule} Hospital Extended Release Oral Tablet [Fortamet] Metformin Hcl 24 HR Metformin Metformin Hcl TABLET, 1 ORAL completed [facility] hydrochloride EXTENDED {Caps P lains 1000 MG RELEASE ule} Hospital Extended Release Oral Tablet [Fortamet] Metformin Hcl 24 HR Metformin Metformin Hcl TABLET, 1 ORAL completed [place] hydrochloride EXTENDED {Caps P lains 1000 MG RELEASE ule} [facility] Extended Release Oral Tablet [Fortamet] Metformin Hcl Vancomycin/Wate INTRAVENOUS 1 g INTRAVENOUS completed White r For Inj (Peg) [facility] Amlodipine 5 MG Amlodipine TABLET 5 mg ORAL completed White Oral Tablet Besylate Plai ns [[facility]] [facility] Amlodipine Besylate 24 HR Metformin Metformin Hcl TABLET, 1 ORAL completed [facility] hydrochloride EXTENDED {Caps P lains 1000 MG RELEASE ule} [facility] Extended Release Oral Tablet [Fortamet] Metformin Hcl Vancomycin/Wate INTRAVENOUS 1 g INTRAVENOUS completed White r For Inj (Peg) [facility] Vancomycin/Wate INTRAVENOUS 1 g INTRAVENOUS completed White r For Inj (Peg) [facility] 24 HR Metformin Metformin Hcl TABLET, 1 ORAL completed [facility] hydrochloride EXTENDED {Caps P lains 1000 MG RELEASE ule} Hospital Extended Release Oral Tablet [Fortamet] Metformin Hcl Vancomycin/Wate INTRAVENOUS 1 g INTRAVENOUS completed White r For Inj (Peg) [facility] gabapentin 100 Gabapentin CAPSULE 100 ORAL completed White MG Oral Capsule mg Plai ns Gabapentin Hospital Vancomycin/Wate INTRAVENOUS 1 g INTRAVENOUS completed White r For Inj (Peg) [facility] Vancomycin/Wate INTRAVENOUS 1 g INTRAVENOUS completed White r For Inj (Peg) [facility] Protonix 0 [id number] active Protonix Ord ered: 24-Feb-2019 [facility] Quantity: 0 Sol Manuel Bday Refills: 0 System Metformin metFORMIN 0 [id number] active metFOR MIN Ordered: 24-Feb-2019 [facility] metFORMIN Quantity: 0 Marco mcdonald Carolyn [facility] Refills: 0 System Reglan 0 [id number] active Reglan Ordered : 24-Feb-2019 [facility] Quantity: 0 Sol Manuel Bday Refills: 0 System 24 HR Metformin TABLET, 1 ORAL completed W jeyson Metformin Hcl EXTENDED {Capsule} P lains hydrochloride RELEASE Hos pital 1000 MG Extended Release Oral Tablet [Fortamet] Metformin Hcl Vancomycin/Roopa INTRAVENOUS 1 g INTRAVENOUS completed White er For Inj PIGGYBACK Plai ns (Peg) [facility] COLLAGENASE Collagenase OINTMENT 1 TOPICAL completed White 0.25 UNT/MG {Applicato Pl ains Topical r} Hospital Ointment [Santyl] Collagenase Lisinopril 20 Lisinopril TABLET 20 mg ORAL completed [facility] MG Oral Tablet [facility] Insurance Providers Payer name Policy type / Policy ID Covered Covered republican's Policy Plan Coverage type republican ID relationship to Ma Information ma SANTANA [id number] SP [id number] MEDICARE ADV PLAN MEDICAID [id number] SP [id number] DAVID MEDICARE [id number] SP [id number] MEDICAID [id number] PT [id number] MCAD Computer [id number] [place] [employer] FIDL Santana [id number] 1 [id number] Care [place] MDCR Medicare [id number] 1 [id number] Part B Par Providers MEDICARE [id number] PT [id number] MEDICAID [id number] SP [id number] MEDICARE [id number] SP [id number] [place]ana Commercial [id number] 1 [id number] Medicare Medicaid Medicaid [id number] Medicare Part Medicare [id number] 1 [id number] B Outpatient Medicare Part Medicare [id number] 1 [id number] A BETTER [id number] PT [id number] HEALTH/FIDELI S BETTER [id number] PT [id number] HEALTH/FIDELI S Medicare Part Medicare [id number] 1 [id number] B Outpatient Medicaid Medicaid [id number] Medicare Part Medicare [id number] 1 [id number] A FIDL [place] [id number] 1 [id number] Care [place] SELF PAY 000 Self 000 MEDICAID OP [id number] Self [id number] SELF PAY 0000 Self 0000 MEDICAID OP [id number] Self [id number] MEDICARE [id number] Self [id number] Santana Care Medicaid [id number] 1 [id number] BETTER [id number] PT [id number] HEALTH/FIDELI S BLUE CROSS [id number] HMO Problems, Conditions, and Diagnoses Code Display Name Description Problem Type Effective Data Sour ce(s) Dates R79.89 Other specified Low testosterone in Diagnosis 12/22/2019 NEXTGEN abnormal findings of male 04:48:00 PM (Ca remount blood chemistry EDT [facility]) E11.43 Type 2 diabetes DM gastroparesis Diagnosis 12/22/2019 NEX TGEN mellitus with 04:48:00 PM ([facility] diabetic autonomic EDT Medica l - Mt (poly)neuropathy [facility] dicri Group PC) K31.84 Gastroparesis Gastroparesis Diagnosis 12/11/2019 NEXTGEN 03:16:00 PM ([facility] EDT [facility]) K58.1 Irritable bowel Irritable bowel Diagnosis 12/11/2019 NEXT GEN syndrome with syndrome with 03:16:00 PM ([facility] constipation constipation EDT [facility]) E11.9 Type 2 diabetes Type 2 diabetes Diagnosis 12/11/2019 NEXT GEN mellitus without mellitus without 03:16:00 PM ( [facility] complications complications EDT Medical - [facility]) E11.621 Type 2 diabetes Type 2 diabetes Diagnosis 11/28/2019 NEXT GEN mellitus with foot mellitus with foot 01:45:00 PM ([facility] ulcer ulcer, with EDT [facility] long-term current [facility] edical use of insulin Group PC) E11.40 Type 2 diabetes Type 2 diabetes Diagnosis 11/28/2019 NEXT GEN mellitus with mellitus with 01:45:00 PM ([facility] diabetic neuropathy, diabetic EDT [facility] unspecified neuropathy, unsp [facility] edical Group PC) R53.1 Weakness Weakness Diagnosis 10/23/2019 S - New 03:29:00 AM [facility] VOMITING/SOB VOMITING/SOB Diagnosis 10/23/2019 S - New 03:29:00 AM [facility] E11.9 Type 2 diabetes Type 2 diabetes Diagnosis 10/23/2019 S - New mellitus without mellitus without 03:29:00 AM [place] complications complication T Hospital R52 Pain, unspecified Pain Diagnosis 10/23/2019 S - N ew 03:29:00 AM [facility] 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 Malingerer Diagnosis 10/23/2019 S - New [conscious 03:29:00 AM [facility]] [facility] Z03.818 Encounter for Encounter for Diagnosis 10/23/2019 S - Ne w observation for observation for 03:29:00 AM Freddy helle suspected exposure suspected exposure EDT Hospital to other biological to other biological agents ruled out agent, ruled out F41.9 Anxiety disorder, Anxiety disorder Diagnosis 10/23/2019 HS - New unspecified 03:29:00 AM [facility] Z09 Encounter for Hospital discharge Diagnosis 10/16/2019 NEX TGEN follow-up follow-up 03:04:00 PM ([facility] examination after EDT [facility] completed treatment [facility] for conditions other Grou p PC) than malignant neoplasm R10.84 Generalized Generalized Diagnosis 10/16/2019 NEXTGEN abdominal pain abdominal pain 03:04:00 PM ([facility] EDT [facility]) F41.1 Generalized anxiety RACHELL (generalized Diagnosis 10/16/2019 NEXTGEN disorder anxiety disorder) 03:04:00 PM [facility] D64.9 Anemia, unspecified Anemia, unspecified Diagnosis 020 NEXTGEN type 03:04:00 PM ([facility] PC) E11.21 Type 2 diabetes Type 2 diabetes Diagnosis 10/16/2019 NEXT GEN mellitus with mellitus with 03:04:00 PM ([facility] diabetic nephropathy diabetic EDT [facility] nephropathy [facility]) L89.891 Pressure ulcer of Pressure ulcer of Diagnosis 10/16/2019 NEXTGEN other site, stage 1 other site, stage 1 11:30:0 0 AM ([facility]) K92.2 Gastrointestinal UGIB (upper Diagnosis 09/11/2019 NEXTGEN hemorrhage, gastrointestinal 10:15:00 AM ([facility] unspecified bleed) [facility] Z00.00 Encounter for Encntr for general Diagnosis 08/14/2019 NEX TGEN general adult adult medical exam 12:00:00 AM ([facility] medical examination w/o abnormal EDT Med ical - Mt without abnormal findings [facility] dical findings Group PC) I10 Essential (primary) Essential (primary) Diagnosis 020 NEXTGEN hypertension hypertension 12:00:00 AM [facility] E78.5 Hyperlipidemia, Hyperlipidemia, Diagnosis 08/14/2019 NEXT GEN unspecified unspecified 12:00:00 AM ([facility] PC) E11.51 Type 2 diabetes Type 2 diabetes w Diagnosis 08/14/2019 NE XTGEN mellitus with diabetic peripheral 12:00:00 AM ( [facility] diabetic peripheral angiopath w/o EDT Tn dical - In angiopathy without gangrene [facility] gangrene Group PC) D63.1 Anemia in chronic Anemia in chronic Diagnosis 08/14/2019 NEXTGEN kidney disease kidney disease 12:00:00 AM ([facility]) R11.10 Vomiting, Vomiting, Diagnosis 06/24/2019 [facility] unspecified unspecified 11:08:00 AM - [place] ED[facility] E11.43 Type 2 diabetes Type 2 diabetes Diagnosis 06/24/2019 [facility] mellitus with mellitus with 11:08:00 AM - Dylan pena diabetic autonomic diabetic autonomic [facility] (poly)neuropathy (poly)neuropathy Ce nter R11.2 Nausea with Nausea with Diagnosis 06/06/2019 [facility] vomiting, vomiting, 12:16:00 PM - [place] unspecified unspecified [facility] Hospital Center M86.60 Other chronic M86.60 Diagnosis 06/04/2019 [place] osteomyelitis, 05:38:00 PM Hospital unspecified site EST E11.9 Type 2 diabetes E11.9 Diagnosis 06/04/2019 [place] mellitus without 05:38:00 PM Hospita l complications EST E11.3593 Type 2 diabetes TYPE 2 DIAB WITH Diagnosis 05/08/2019 [place] mellitus with PROLIF DIAB RTNOP 06:00:00 AM [facility] proliferative WITHOUT MACULAR EST Care diabetic retinopathy EDEMA, BI Eli oration without macular edema, bilateral E11.3592 Type 2 diabetes TYPE 2 DIAB WITH Diagnosis 04/24/2019 [place] mellitus with PROLIF DIAB RTNOP 10:37:00 AM [facility] proliferative WITHOUT MCLR EDEMA, EST Ca re diabetic retinopathy L EYE Eli oration without macular edema, left eye M79.672 Pain in left foot M79.672 Diagnosis 04/21/2019 [place] 09:57:00 AM Hospital EST E11.69 Type 2 diabetes E11.69 Diagnosis 04/21/2019 [place] mellitus with other 09:57:00 AM Hosp ital specified EST complication E11.621 Type 2 diabetes E11.621 Diagnosis 04/21/2019 [place] mellitus with foot 09:57:00 AM Hospi grazyna ulcer EST E11.3591 Type 2 diabetes TYPE 2 DIAB WITH Diagnosis 04/10/2019 [place] mellitus with PROLIF DIAB RTNOP 11:22:00 AM [facility] proliferative WITHOUT MCLR EDEMA, EST Ca re diabetic retinopathy R EYE Eli oration without macular edema, right eye Z86.19 Personal history of PERSONAL HISTORY OF Diagnosis [address] [place] [address] other infectious and OTHER INFECTIOUS 09:34:00 AM [facility] parasitic diseases AND PARASITIC EST Car e [employer] Z89.511 Acquired absence of ACQUIRED ABSENCE OF Diagnosis [place] right leg below knee RIGHT LEG BELOW 09:34:00 A M [facility] KNEE [facility] [employer] K31.84 Gastroparesis GASTROPARESIS Diagnosis 03/26/2019 [facility] 09:34:00 AM [facility] [employer] 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) Diagnosis [place] use of oral USE OF ORAL 09:34:00 AM [facility] hypoglycemic drugs HYPOGLYCEMIC DRUGS [facility] [employer] F41.9 Anxiety disorder, ANXIETY DISORDER, Diagnosis 03/26/2019 [place] unspecified UNSPECIFIED 09:34:00 AM [facility] [place] E11.43 Type 2 diabetes TYPE 2 DIABETES W Diagnosis 03/26/2019 [facility] mellitus with DIABETIC AUTONOMIC 09:34:00 AM [facility] diabetic autonomic (POLY)NEUROPATHY [facility] (poly)neuropathy 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 H33.42 Traction detachment TRACTION DETACHMENT Diagnosis [place] of retina, left eye OF RETINA, LEFT EYE 09:34:0 0 AM [facility] [employer] H33.012 Retinal detachment RETINAL DETACHMENT Diagnosis 9 [place] with single break, WITH SINGLE BREAK, 12:17:00 PM [facility] left eye LEFT EYE [place] F41.1 Generalized anxiety Generalized anxiety Diagnosis [facility] - New disorder disorder 08:48:00 PM [facility] ANXIETY ANXIETY Diagnosis 03/11/2019 [facility] - New 08:48:00 PM [facility] Z89.431 Acquired absence of Acquired absence of Diagnosis [facility] - New right foot right foot 08:48:00 PM [facility] F43.9 Reaction to severe Reaction to severe Diagnosis 9 [facility] - New stress, unspecified stress 08:18:00 PM [facility] F32.89 Other specified Other depressive Diagnosis 03/08/2019 [facility]HS - New depressive episodes episodes 08:18:00 PM [facility] ANXIETY-WAS HERE ANXIETY-WAS HERE Diagnosis 03/08/2019 MH S - New YESTERDAY YESTERDAY 08:18:00 PM [facility] F41.8 Other specified Other specified Diagnosis 03/06/2019 [facility] - New anxiety disorders anxiety disorders 08:48:00 PM [facility] HIGH ANXIETY HIGH ANXIETY Diagnosis 03/06/2019 [facility] - New 08:48:00 PM [facility] Z89.511 Acquired absence of Acquired absence of Diagnosis 019 MHS - New right leg below knee right lower 08:48:00 PM [facility] extremity below [facility] Hospital knee PAIN LEFT LEG PAIN LEFT LEG Diagnosis 02/24/2019 MHS - Mo unt 01:23:00 AM [facility] M79.604 Pain in right leg Pain of right lower Diagnosis 9 [facility] - [facility] extremity 01:23:00 AM [facility] F41.9 Anxiety disorder, Anxiety disorder Diagnosis 02/24/2019 [facility] - [facility] unspecified 01:23:00 AM [facility] D64.89 Other specified D64.89 Diagnosis 02/14/2019 [place] anemias 10:02:00 AM Hospital EST Z51.89 Encounter for other Z51.89 Diagnosis 02/14/2019 [place] specified aftercare 10:02:00 AM Hosp ital EST F41.9 Anxiety disorder, F41.9 Diagnosis 01/29/2019 [place] unspecified 11:08:00 PM Hospital EDT F32.9 Major depressive F32.9 Diagnosis 01/29/[address] [place] disorder, single 11:08:00 PM Hospita l episode, unspecified EDT G89.29 Other chronic pain G89.29 Diagnosis 01/29/2019 [place] 11:08:00 PM Hospital EDT K21.0 Gastro-esophageal K21.0 Diagnosis 01/29/2019 [place] reflux disease with 11:08:00 PM Hosp ital esophagitis EDT K59.00 Constipation, K59.00 Diagnosis 01/29/2019 [place] unspecified 11:08:00 PM Hospital EDT E11.610 Type 2 diabetes E11.610 Diagnosis 01/29/2019 [place] mellitus with 11:08:00 PM Hospital diabetic neuropathic EDT arthropathy Z89.422 Acquired absence of Z89.422 Diagnosis 01/29/2019 [place] other left toe(s) 11:08:00 PM Hospit al EDT D63.8 Anemia in other D63.8 Diagnosis 01/29/2019 [place] chronic diseases 11:08:00 PM Hospita l classified elsewhere EDT 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 Z76.5 Diagnosis 01/29/2019 [place] [conscious 11:08:00 PM Hospital simulation] EDT R11.2 Nausea with R11.2 Diagnosis 01/29/2019 [place] vomiting, 11:08:00 PM Hospital unspecified EDT E86.0 Dehydration E86.0 Diagnosis 01/29/2019 [place] 11:08:00 PM Hospital EDT Z86.14 Personal history of Z86.14 Diagnosis 01/29/2019 [place] Methicillin 11:08:00 PM Hospital resistant EDT Staphylococcus aureus infection Z91.14 Patient's other Z91.14 Diagnosis 01/29/2019 [place] noncompliance with 11:08:00 PM Hospi grazyna medication regimen EDT Z89.511 Acquired absence of Z89.511 Diagnosis 01/29/2019 [place] right leg below knee 11:08:00 PM Hos pital EDT I10 Essential (primary) I10 Diagnosis 01/29/2019 [place] hypertension 11:08:00 PM Hospital EDT K31.84 Gastroparesis K31.84 Diagnosis 01/29/2019 [place] 11:08:00 PM Hospital EDT E87.1 Hypo-osmolality and E87.1 Diagnosis 01/29/2019 [place] hyponatremia 11:08:00 PM Hospital EDT N17.9 Acute kidney N17.9 Diagnosis 01/29/2019 [place] failure, unspecified 11:08:00 PM Hos pital EDT M86.661 Other chronic M86.661 Diagnosis 01/29/2019 [place] osteomyelitis, right 11:08:00 PM Hos pital tibia and fibula EDT M86.662 Other chronic M86.662 Diagnosis 01/29/2019 [place] osteomyelitis, left 11:08:00 PM Hosp ital tibia and fibula EDT E11.43 Type 2 diabetes E11.43 Diagnosis 01/29/2019 [place] mellitus with 11:08:00 PM Hospital diabetic autonomic EDT (poly)neuropathy 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 12/27/2018 [place] duodenum 10:53:00 PM Hospital EDT K76.0 Fatty (change of) K76.0 Diagnosis 12/27/2018 [place] liver, not elsewhere 10:53:00 PM Hos pital classified EDT I16.0 Hypertensive urgency I16.0 Diagnosis 12/27/2018 [place] 10:53:00 PM Hospital EDT A41.9 Sepsis, unspecified A41.9 Diagnosis 12/27/2018 [place] organism 10:53:00 PM Hospital EDT Z91.018 Allergy to other Z91.018 Diagnosis 12/27/[address] [place] foods 10:53:00 PM Hospital EDT Z79.84 detention (current) Z79.84 Diagnosis 12/27/2018 [place] use of oral 10:53:00 PM Hospital hypoglycemic drugs EDT Z79.899 Other correction Z79.899 Diagnosis 12/27/2018 [place] (current) drug 10:53:00 PM Hospital therapy EDT K31.7 Polyp of stomach and K31.7 Diagnosis 12/27/2018 [place] duodenum 10:53:00 PM Hospital EDT Z87.891 Personal history of Z87.891 Diagnosis 12/20/2018 [place] nicotine dependence 11:00:00 AM Hosp ital EDT 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 service (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) Z79.4 Diagnosis 12/20/2018 [place] use of insulin 11:00:00 AM Hospital EDT 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 12/20/2018 [place] ulcer of other part 11:00:00 AM Hosp ital of left foot with EDT unspecified severity L97.519 Non-pressure chronic L97.519 Diagnosis 12/20/2018 [place] ulcer of other part 11:00:00 AM Hosp ital of right foot with EDT unspecified severity L02.415 Cutaneous abscess of L02.415 Diagnosis 12/20/2018 [place] right lower limb 11:00:00 AM Hospita l EDT M86.671 Other chronic M86.671 Diagnosis 12/20/2018 [place] osteomyelitis, right 11:00:00 AM Hos pital ankle and foot EDT M86.672 Other chronic M86.672 Diagnosis 12/20/2018 [place] osteomyelitis, left 11:00:00 AM Hosp ital ankle and foot EDT L03.115 Cellulitis of right L03.115 Diagnosis 12/20/2018 [place] lower limb 11:00:00 AM Hospital EDT A41.02 Sepsis due to A41.02 Diagnosis 12/20/2018 [place] Methicillin 11:00:00 AM Hospital resistant EDT Staphylococcus aureus Z91.19 Patient's Z91.19 Diagnosis 12/06/2018 [place] noncompliance with 09:02:00 AM Hospi grazyna other medical EDT treatment and regimen R07.9 Chest pain, R07.9 Diagnosis 12/06/2018 [place] unspecified 09:02:00 AM Hospital EDT D50.9 Iron deficiency D50.9 Diagnosis 12/06/2018 [place] anemia, unspecified 09:02:00 AM Hosp ital EDT Z79.2 [employer]modal customer service (current) Z79.2 Diagnosis 12/06/2018 [place] use of antibiotics 09:02:00 AM Hospi grazyna EDT E11.42 Type 2 diabetes E11.42 Diagnosis 12/06/2018 [place] mellitus with 09:02:00 AM Hospital diabetic EDT polyneuropathy E11.40 Type 2 diabetes E11.40 Diagnosis 11/06/2018 [place] mellitus with 03:10:00 PM Hospital diabetic neuropathy, EDT unspecified A52.16 Charcot's A52.16 Diagnosis 11/06/2018 [place] arthropathy 03:10:00 PM Hospital (tabetic) EDT D64.9 Anemia, unspecified D64.9 Diagnosis 11/06/2018 [place] 03:10:00 PM Hospital EDT M86.8X7 Other osteomyelitis, M86.8X7 Diagnosis 11/06/2018 [place] ankle and foot 03:10:00 PM Hospital EDT L97.514 Non-pressure chronic Chronic ulcer of Diagnosis 9 NEXTGEN ulcer of other part right foot with 05:30:00 PM ([facility] of right foot with necrosis of bone EDT Medical - [facility] necrosis of bone [place] [facility]) L97.524 Non-pressure chronic Chronic ulcer of Diagnosis 9 NEXTGEN ulcer of other part left foot with 05:30:00 PM ([facility] of left foot with necrosis of bone EDT M edical - Mt necrosis of bone sco Tn dical Group PC) M86.471 Chronic Chronic Diagnosis 09/18/2018 NEXTGEN osteomyelitis with osteomyelitis of 05:30:00 PM ([facility] draining sinus, right foot with EDT Medi beata - [facility] right ankle and foot draining sinus [facility]) M86.171 Other acute Osteomyelitis of Diagnosis 08/26/2018 NEXTGEN osteomyelitis, right foot, right, acute 06:30:0 0 PM ([facility] ankle [facility] foot EDT Medical - [facility]) E11.42 Type 2 diabetes Diabetic Diagnosis 07/17/2018 NEXTGEN mellitus with polyneuropathy 02:00:00 PM ([facility] diabetic associated with EDT Medical - [place] polyneuropathy type 2 diabetes [facility]) L08.9 Local infection of Local infection of Diagnosis 9 NEXTGEN the skin and the skin and 02:00:00 PM ([facility] subcutaneous tissue, subcutaneous EDT Tn dical - In unspecified tissue, unspecified [facility]) E11.628 Type 2 diabetes Diabetic infection Diagnosis 07/17/2018 N EXTGEN mellitus with other of right foot 02:00:00 PM ( [facility] skin complications EDT Medica l [facility]) 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 07/18/19 19 NEXTGEN amputation of one toe, left, 02:00:00 PM ([facility] left lesser toe, traumatic, EDT Medical - In subsequent encounter subsequent [facility]) M86.472 Chronic Chronic Diagnosis 07/05/2018 NEXTGEN osteomyelitis with osteomyelitis of 05:15:00 PM ([facility] draining sinus, left left foot with EDT Medical - In ankle and foot draining sinus [facility]) L97.512 Non-pressure chronic Ulcer of right foot Diagnosis 2018 NEXTGEN ulcer of other part with fat layer 07:15:00 PM ([facility] of right foot with exposed EDT [facility] fat [facility] exposed [facility]) L02.612 Cutaneous abscess of Abscess of left Diagnosis 06/24/2018 NEXTGEN left foot foot 05:45:00 PM ([facility] EDT Medical - [facility]) M14.671 Charcot's joint, Charcot's joint of Diagnosis 06/24/2018 NEXTGEN right ankle and foot right foot 05:45:00 PM ([facility] EDT Medical - [facility]) M14.672 Charcot's joint, Charcot's joint of Diagnosis 06/24/2018 NEXTGEN left ankle and foot left foot 05:45:00 PM [facility] L02.01 Cutaneous abscess of Abscess of cheek Diagnosis 9 NEXTGEN face 10:45:00 AM ([facility] EST [facility]) N52.1 Erectile dysfunction Erectile Diagnosis 06/06/2018 NEXT GEN due to diseases dysfunction due to 10:40:00 AM ([facility] classified elsewhere diseases classified EST [facility] elsewhere [facility]) L97.513 Non-pressure chronic Ulcer of right foot Diagnosis 2018 NEXTGEN ulcer of other part with necrosis of 10:15:00 A M ([facility] of right foot with muscle EST Medica l - In necrosis of muscle [facility]) L97.522 Non-pressure chronic Chronic ulcer of Diagnosis 9 NEXTGEN ulcer of other part left foot with fat 10:15:00 AM ([facility] of left foot with layer exposed EST [facility] fat layer exposed [facility]) Surgeries/Procedures Procedure Description Date Indications Data Source(s) OFFICE/OUTPATIENT VISIT OFFICE/OUTPATIENT VISIT NEXTGEN EST EST 0 ([facility] 12:00:00 [facility]) RMVL DEVITAL TIS 20 CM/< RMVL DEVITAL TIS 20 NEXTGEN CM/< 0 ([facility] 12:00:00 [facility]) Injection, ondansetron Ondansetron hcl NE XTGEN hydrochloride, per 1 mg injection 0 ([facility] 12:00:00 [facility]) THER/PROPH/DIAG IV INF THER/PROPH/DIAG IV INF NEXTGEN INIT INIT 0 ([facility] 12:00:00 [facility]) INPATIENT CONSULTATION INPATIENT CONSULTATION NEXTGEN 0 ([facility] 12:00:00 [facility]) INPATIENT CONSULTATION INPATIENT CONSULTATION NEXTGEN 0 ([facility] 12[facility]00:00 [facility]) NM Lung Scan Perfusion NM [facility] Lung Scan Perfusion 0 [facility] 11:18:00 AM EDT - 0 11:18:00 AM EDT Standard chest X-ray [facility] ore (procedure) 0 [facility] 05:09:00 AM EDT - 0 05:09:00 AM EDT Electrocardiographic [facility] procedure (procedure) 0 [facility] 04:42:00 AM EDT - 0 06:17:00 AM EDT Culture Bacteria Blood [facility] 0 [facility] 04:36:58 AM EDT - 0 05:36:11 AM EDT Culture Bacteria Blood [facility] 0 [facility] 04:36:58 AM EDT - 0 05:36:10 AM EDT Sedimentation Rate, [facility] re Erythrocyte 0 [facility] 04:36:58 AM EDT - 0 05:32:00 AM EDT Lipase, Serum [facility] 0 [facility] 04:36:58 AM EDT - 0 05:32:00 AM EDT Alcohol Ethyl, Blood [facility] 0 [facility] 04:36:58 AM EDT - 0 05:32:00 AM EDT Comprehensive Metabolic [facility] Panel 0 [facility] 04:36:58 AM EDT - 0 05:32:00 AM EDT CBC w/Auto Differential- [facility] NR/SECC Only 0 [facility] 04:36:58 AM EDT - 0 05:32:00 AM EDT TRANS CARE MGMT 14 DAY TRANS CARE MGMT 14 DAY NEXTGEN DISCH DISCH 0 ([facility] 12:00:00 Medical - [facility] AM EDT [facility]) CHRON CARE MGMT SRVC 20 CHRON CARE MGMT SRVC 20 NEXTGEN MIN MIN 0 ([facility] 12:00:00 Medical - [facility] AM EDT [facility]) SUBSEQUENT HOSPITAL CARE SUBSEQUENT HOSPITAL NEXTGEN CARE 0 ([facility] 12:00:00 [facility]) INITIAL HOSPITAL CARE INITIAL HOSPITAL CARE NEXTGEN 0 ([facility] 12:00:00 [facility]) TRANS CARE MGMT 7 DAY TRANS CARE MGMT 7 DAY NEXTGEN DISCH DISCH 0 ([facility] 12:00:00 [facility]) SUBSEQUENT HOSPITAL CARE SUBSEQUENT HOSPITAL NEXTGEN CARE 0 ([facility] 12:00:00 [facility]) EGD DIAGNOSTIC BRUSH WASH EGD DIAGNOSTIC BRUSH NEXTGEN WASH 0 ([facility] 12:00:00 [facility]) HOSPITAL DISCHARGE DAY HOSPITAL DISCHARGE DAY NEXTGEN 0 ([facility] 12:00:00 [facility]) SUBSEQUENT HOSPITAL CARE SUBSEQUENT HOSPITAL NEXTGEN CARE 0 ([facility] 12:00:00 [facility]) COMPLETE CBC W/AUTO DIFF COMPLETE CBC W/AUTO NEXTGEN WBC DIFF WBC 0 ([facility] 12:00:00 [facility]) ASSAY THYROID STIM HORMONE ASSAY THYROID STIM NEXTGEN HORMONE 0 ([facility] 12:00:00 [facility]) COMPREHEN METABOLIC PANEL COMPREHEN METABOLIC NEXTGEN PANEL 0 ([facility] 12:00:00 [facility]) ASSAY OF FREE THYROXINE ASSAY OF FREE THYROXINE NEXTGEN 0 ([facility] 12:00:00 [facility]) ASSAY OF PSA TOTAL ASSAY OF PSA TOTAL NEX TGEN 0 ([facility] 12:00:00 [facility]) IRON BINDING TEST IRON BINDING TEST NEXTG EN 0 ([facility] 12:00:00 [facility]) ASSAY OF FOLIC ACID SERUM ASSAY OF FOLIC ACID NEXTGEN SERUM 0 ([facility] 12:00:00 [facility]) ASSAY OF FERRITIN ASSAY OF FERRITIN NEXTG EN 0 ([facility] 12:00:00 [facility]) VITAMIN B-12 VITAMIN B-12 NEXTGEN 0 ([facility] 12:00:00 [facility]) VITAMIN D 25 HYDROXY VITAMIN D 25 HYDROXY NEXTGEN 0 ([facility] 12:00:00 [facility]) UR ALBUMIN QUANTITATIVE UR ALBUMIN QUANTITATIVE NEXTGEN 0 ([facility] 12:00:00 [facility]) URINALYSIS AUTO W/SCOPE URINALYSIS AUTO W/SCOPE NEXTGEN 0 ([facility] 12:00:00 [facility]) LIPID PANEL LIPID PANEL NEXTGEN 0 ([facility] 12:00:00 [facility]) ROUTINE VENIPUNCTURE ROUTINE VENIPUNCTURE NEXTGEN 0 ([facility] 12:00:00 [facility]) PREV VISIT EST AGE 40-64 PREV VISIT EST AGE 05 NEXTGEN 40-64 0 ([facility] 12:00:00 [facility]) EGD CONTROL BLEEDING ANY EGD CONTROL BLEEDING NEXTGEN ANY 0 ([facility] 12:00:00 [facility]) ERCP REMOVE DUCT CALCULI ERCP REMOVE DUCT NEXTGEN CALCULI 0 ([facility] 12:00:00 [facility]) INITIAL HOSPITAL CARE INITIAL HOSPITAL CARE NEXTGEN 0 ([facility] 12:00:00 [facility]) INPATIENT CONSULTATION INPATIENT CONSULTATION NEXTGEN 0 ([facility] 12:00:00 [facility] EST [facility]) Electrocardiographic [place] procedure (procedure) 0 Hospit al 12:00:00 AM EST Physical therapy procedure [place] (regime/therapy) 9 Hospital 12:00:00 AM EDT Diagnostic radiography of [place] abdomen (procedure) 9 Hospital 12:00:00 AM EDT Physical therapy procedure [facility] [place] (regime/therapy) 9 Hospital 12:00:00 AM EDT Probe Cover With Gel 48 [place] In. 9 Hospital 12:00:00 AM EDT PowerGlide Pro 18G x 10CM [place] 9 Hospital 12:00:00 AM EDT Diagnostic radiography of [place] abdomen (procedure) 9 Hospital 12:00:00 AM EDT Plain chest X-ray [place] (procedure) 9 Hospital 12:00:00 AM EDT Electrocardiographic [place] procedure (procedure) 9 Hospit ri 12:00:00 AM EDT Diagnostic radiography of [place] abdomen (procedure) 9 Hospital 12:00:00 AM EDT Electrocardiographic [place] procedure (procedure) 9 Hospit ri 12:00:00 AM EDT Computed tomography of [place] abdominal vascular 9 Hospital structures (procedure) 12:00:00 AM EDT Computed tomography of [place] abdominal vascular 9 [facility] structures (procedure) 12:00:00 AM EDT Physical therapy procedure [place] (regime/therapy) 9 Hospital 12:00:00 AM EDT Physical therapy procedure [facility] [place] (regime/therapy) 9 Hospital 12:00:00 AM EDT Oxygen therapy (procedure) [place] 9 Hospital 12:00:00 AM EDT DETACHMENT AT RIGHT LOWER [place] LEG, HIGH, OPEN APPROACH 9 Hos pital 12:00:00 AM EDT TRANSFUSE NONAUT RED BLOOD [facility] [place] CELLS IN PERIPH VEIN, PERC 9 H ospital 12:00:00 AM EDT Oxygen therapy (procedure) [place] 9 Hospital 12:00:00 AM EDT Physical therapy procedure [place] (regime/therapy) 9 Hospital 12:00:00 AM EDT Physical therapy procedure [place] (regime/therapy) 9 Hospital 12:00:00 AM EDT Ultrasonography of abdomen [place] (procedure) 9 Hospital 12:00:00 AM EDT Ultrasonography of abdomen [place] (procedure) 9 Hospital 12:00:00 AM EDT Plain chest X-ray [place] (procedure) 9 Hospital 12:00:00 AM EDT Plain chest X-ray [place] (procedure) 9 Hospital 12:00:00 AM EDT INSERTION OF INFUSION [place] DEVICE INTO R ATRIUM, PERC 9 H ospital APPROACH 12:00:00 AM EDT EXCISION OF LOWER [place] ESOPHAGUS, ENDO, DIAGN 9 [facility] 12:00:00 AM EDT EXCISION OF DUODENUM, [place] ENDO, DIAGN 9 Hospital 12:00:00 AM EDT Plain chest X-ray [place] (procedure) 9 Hospital 12:00:00 AM EDT Plain chest X-ray [place] (procedure) 9 Hospital 12:00:00 AM EDT Electrocardiographic [place] procedure (procedure) 9 Hospit al 12:00:00 AM EDT Electrocardiographic [place] procedure (procedure) 9 Hospit al 12:00:00 AM EDT Electrocardiographic [place] procedure (procedure) 9 Hospit al 12:00:00 AM EDT Electrocardiographic [place] procedure (procedure) 9 Hospit al 12:00:00 AM EDT Plain chest X-ray [place] (procedure) 9 Hospital 12:00:00 AM EDT Electrocardiographic [place] procedure (procedure) 9 Hospit al 12:00:00 AM EDT Electrocardiographic [place] procedure (procedure) 9 Hospit al 12:00:00 AM EDT Plain chest X-ray [place] (procedure) 9 Hospital 12:00:00 AM EDT Probe Cover With Gel 48 [place] In. 9 Hospital 12:00:00 AM EDT Ultrasound scan of upper [place] limb vessels (procedure) 9 [facility] pital 12:00:[address] 18G x 10CM [place] 9 Hospital 12:00:00 AM EDT Probe Cover With Gel 48 [place] In. 9 Hospital 12:00:00 AM EDT Ultrasound scan of upper [place] limb vessels (procedure) 9 [facility] pital 12:00:[address] 18G x 10CM [place] 9 Hospital 12:00:00 AM EDT Physical therapy procedure [place] (regime/therapy) 9 Hospital 12:00:00 AM EDT Physical therapy procedure [place] (regime/therapy) 9 Hospital 12:00:00 AM EDT Echocardiography [place] (procedure) 9 Hospital 12:00:00 AM EDT Plain chest X-ray [place] (procedure) 9 Hospital 12:00:00 AM EDT Echocardiography [place] (procedure) 9 Hospital 12:00:00 AM EDT Plain chest X-ray [place] (procedure) 9 Hospital 12:00:00 AM EDT DRAINAGE OF RIGHT LOWER [place] LEG MUSCLE, OPEN APPROACH 9 spital 12:00:00 AM EDT Plain chest X-ray [place] (procedure) 9 Hospital 12:00:00 AM EDT Electrocardiographic [place] [facility] 12:[facility] AM EDT Plain chest X-ray [place] (procedure) 9 Hospital 12:00:00 AM EDT Electrocardiographic [place] procedure (procedure) 9 Hospit ri 12:00:00 AM EDT Electrocardiographic [place] procedure (procedure) 9 Hospit al 12:00:00 AM EDT Electrocardiographic [place] procedure (procedure) 9 [facility] 12:00:[address] 18G x 8CM [place] 9 Hospital 12:00:[address] 18G x 8CM [place] 9 Hospital 12:00:00 AM EDT Doppler ultrasound of [place] vessels of both lower [facility] extremities 12:00:00 AM EDT X-ray of right foot [place] (procedure) 9 [facility] 12:00:00 AM EDT X-ray of left foot [place] (procedure) 9 Hospital 12:00:00 AM EDT Electrocardiographic [place] procedure (procedure) [facility] 12:00:00 AM EDT Plain chest X-ray [place] (procedure) 9 Hospital 12:00:00 AM EDT Doppler ultrasound of [place] vessels of both lower [facility] extremities 12:00:00 AM EDT X-ray of right foot [place] (procedure) 9 Hospital 12:00:00 AM EDT X-ray of left foot [place] (procedure) 9 Hospital 12:00:00 AM EDT Electrocardiographic [place] procedure (procedure) [facility] 12:00:00 AM EDT Plain chest X-ray [place] (procedure) 9 Hospital 12:00:[address] 18G x 10CM [place] 9 Hospital 12:00:00 AM EDT Probe Cover With Gel 48 [place] In. 9 Hospital 12:00:00 AM EDT Physical therapy procedure [place] (regime/therapy) 9 Hospital 12:00:[address] 18G x 10CM [place] 9 Hospital 12:00:00 AM EDT Probe Cover With Gel 48 [place] In. 9 Hospital 12:00:00 AM EDT Physical therapy procedure [place] (regime/therapy) 9 Hospital 12:00:00 AM EDT DRAINAGE OF RIGHT FOOT [place] SKIN, EXTERNAL APPROACH, 9 Hos pital DIAGNOSTIC 12:00:00 AM EDT EXCISION OF RIGHT [place] METATARSAL, OPEN APPROACH 9 Ho spital 12:00:00 AM EDT EXCISION OF LEFT [place] METATARSAL, OPEN APPROACH 9 Ho spital 12:00:00 AM EDT Magnetic resonance imaging [place] of right foot with 9 Hospital contrast 12:00:00 AM EDT Magnetic resonance imaging [place] of left foot with contrast 9 H ospital 12:00:00 AM EDT Magnetic resonance imaging [place] of right foot with 9 Hospital contrast 12:00:00 AM EDT Magnetic resonance imaging [place] of left foot with contrast 9 H ospital 12:00:00 AM EDT Plain chest X-ray [place] (procedure) 9 Hospital 12:00:00 AM EDT Plain chest X-ray [place] (procedure) 9 Hospital 12:00:00 AM EDT Incentive spirometry [place] (regime/therapy) 9 Hospital 12:00:00 AM EDT Physical therapy procedure [place] (regime/therapy) 9 Hospital 12:00:00 AM EDT Incentive spirometry [place] (regime/therapy) 9 Hospital 12:00:00 AM EDT Physical therapy procedure [place] (regime/therapy) 9 Hospital 12:00:00 AM EDT Ultrasound scan of lower [place] limb vessels (procedure) 9 Hos pital 12:00:00 AM EDT Plain chest X-ray [place] (procedure) 9 Hospital 12:00:00 AM EDT X-ray of right foot [place] (procedure) 9 Hospital 12:00:00 AM EDT X-ray of left foot [place] (procedure) 9 [facility] 12:00:00 AM EDT UBALDO SUBQ TISSUE 20 SQ CM/< UBALDO SUBQ TISSUE 20 SQ NEXTGEN CM/< 9 ([facility] 12:00:00 Medical - [facility] AM EDT [facility]) UBALDO BONE 20 SQ CM/< UBALDO BONE 20 SQ CM/< N EXTGEN 9 ([facility] 12:00:00 Medical - [facility] AM EDT [facility]) UBALDO MUSC/FASCIA 20 SQ CM/< UBALDO MUSC/FASCIA 20 SQ NEXTGEN CM/< 9 ([facility] 12:00:00 Medical - [facility] AM EDT [facility]) OFFICE/OUTPATIENT VISIT OFFICE/OUTPATIENT VISIT NEXTGEN EST EST 9 ([facility] 12:00:00 Medical - [facility] AM EDT [facility]) ELECTROCARDIOGRAM REPORT ELECTROCARDIOGRAM NEXTGEN REPORT 9 ([facility] 12:00:00 Medical - [facility] AM EDT [facility]) X-RAY EXAM CHEST 1 VIEW X-RAY EXAM CHEST 1 VIEW NEXTGEN 9 ([facility] 12:00:00 Medical - [facility] AM EDT [facility]) 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 ID Date Data Source [id number] 11/10/2019 06:03:00 PM EDT [facility] Name Value Range Interpretation Description Data Sup porting Code Source(s) Document(s ) SARS [facility] coronavirus 2 RNA This lab was ordered by [facility] and reported by [facility]. ID Date Data Source [id number] 11/07/2019 01:25:00 PM EDT [facility] Name Value Range Interpretation Description Data Sup porting Code Source(s) Document(s ) SARS [facility] coronavirus 2 RNA This lab was ordered by [facility] and reported by [facility]. ID Date Data Source [id number] 10/27/2019 04:47:00 PM EDT [facility] Name Value Range Interpretation Description Data Sup porting Code Source(s) Document(s ) 2019 [facility] Coronavirus RNA Interpretation Unspecified Specimen Qualitative MEG Probe Detection This lab was ordered by [facility] and reported by [facility]. ID Date Data Source [id number] 10/23/2019 07:21:33 PM EDT [facility] Name Value Range Interpretation Description Data Source(s ) Supporting Code Document(s ) NRD-Dime 1161 Above high normal NR D-Dimer High [place] rHighSen {D-DU_ng/ Sensitivity Health System sitivity ml} D-Dimer result below 230 ng/ml has high negative predictive value for diagnosing DVT. A positive D-Dimer test, although helpfu l, is not by itself diagnostic of DIC. D-Dimer for DIC must be interpreted in t he context of platelet count, fibrinogen, PT/INR, PTT, and clinical feature of th e patient. ID Date Data Source [id number] 10/23/2019 07:21:33 PM EDT [facility] Name Value Range Interpretation Description Data Source(s ) Supporting Code Document(s ) LacticAc 2.1 Above upper panic Lactic Acid [facility] idWholeB mmol/L limits Whole Blood Health System lood*NEW *NEW CAROLYN CAROLYN ONLY* ONLY* Result Reporting|Telephone|Pam ovalle RN/RB| 10/23/2019 at 6:19 AMCalled to:Pam Rudolph RN/RBTech Name:SFReadback by:Sherlyn Rudolph RN/RB 10/23/2019 / 6:19 AM ID Date Data Source [id number] 10/23/2019 07:21:33 PM EDT [facility] Name Value Range Interpretation Description Data Sup porting Code Source(s) Document(s ) 22366-9 NEGATIVE Testing Normal (applies COVID-19.. [facility] [facility] was performed to non[facility] Sy[facility] em using Tony ID results) NOW COVID-19, an isothermal nucleic acid amplification technology for the qualitative detection of nucleic acid from the SARS-CoV-2 viral RNA in respiratory specimens. The ID NOW COVID-19 test has been approved by the Food and Drug Administration (FDA) under an Emergency Use Authorization for use by authorized laboratories. Reference Range: NEGATIVE . ID Date Data Source [id number] 10/23/2019 07:21:33 PM EDT [facility] Name Value Range Interpretation Description Data Sup porting Code Source(s) Document(s ) Leukocytes 9.7 Normal (applies WBC Count [facility] [#/volume] in {10^3_uL to non-numeric Health Unspecified } results) System specimen by Automated count Hemoglobin 10.4 Below low normal Hemoglobin [facility] [Mass/volume] in {gm/dL} Health Blood System Erythrocytes 4.22 Below low normal RBC Count [facility] [#/volume] in {10^6_uL Health Blood by } System Automated count Erythrocyte mean 76.1 fl Below low normal MCV [place] corpuscular Health volume [Entitic System volume] by Automated count Hematocrit 32.1 % Below low normal Hematocrit [facility] [Volume Health Fraction] of System Blood Erythrocyte mean 24.6 pg Below low normal MCH [place] corpuscular Health hemoglobin System [Entitic mass] by Automated count Erythrocyte 17.1 % Above high RDW-CV [facility] distribution normal Health width [Entitic System volume] by Automated count Erythrocyte mean 32.4 Normal (applies MCHC [facility] corpuscular {gm/dL} to non-numeric Health hemoglobin results) System concentration [Mass/volume] by Automated count Platelets 351 Normal (applies Platelet Count [facility] [#/volume] in {10^3_uL to non-numeric Health Plasma by } results) System Automated count Platelet mean 10.7 fl Normal (applies MPV [facility] volume [Entitic to non-numeric Health volume] in Blood results) System by Automated count Neutrophils/100 73.5 % Normal (applies Neutrophil % Ludwig janny leukocytes in to non-numeric Health Blood by results) System Automated count NRBC# 0.00 Normal (applies NRBC # [facility] {10^3_uL to non-numeric Health } results) System Nucleated 0.0 Normal (applies NRBC % [facility] erythrocytes {/100_WB to non-numeric Health [#/volume] in C} results) System Body fluid Lymphocyte 1.8 Normal (applies Lymphocyte # [facility] percent {10^3_uL to non-numeric Health differential } results) System count (procedure) Neutrophils 7.1 Normal (applies Neutrophil # [place] [facility] [#/volume] in {10^3_uL to non-numeric Health Body fluid } results) System Lymphocytes 18.3 % Normal (applies Lymphocyte % [place] [facility] [#/volume] in to non-numeric Health Blood by results) System Automated count Eosinophils/100 0.4 % Normal (applies Eosinophil % Ludwig janny leukocytes in to non-numeric Health Unspecified results) System specimen Eosinophils 0.04 Normal (applies Eosinophil # [place] [facility] [#/volume] in {10^3_uL to non-numeric Health Blood } results) System Monocytes/100 7.1 % Normal (applies Monocyte % [place] [facility] leukocytes in to non-numeric Health Blood results) System Monocytes 0.7 Normal (applies Monocyte # [facility] [#/volume] in {10^3_uL to non-numeric Health Blood by Manual } results) System count Basophils 0.04 Normal (applies Basophil # [facility] [#/volume] in {10^3_uL to non-numeric Health Blood by } results) System Automated count Basophils/100 0.4 % Normal (applies Basophil % [place] [facility] leukocytes in to non-numeric Health Unspecified results) System specimen by Manual count ImmatureGranuloc 0.03 Normal (applies Immature [facility] ytes# {10^3_uL to non-numeric Granulocytes # Health } results) System ImmatureGranuloc 0.3 % Normal (applies Immature [facility] ytes% to non-numeric Granulocytes % Health results) System ID Date Data Source [id number] 10/23/2019 07:21:33 PM EDT [facility] Name Value Range Interpretation Description Data Sup porting Code Source(s) Document(s ) Sodium 136 Normal (applies Sodium, Serum [facility] [Moles/volume] in mmol/L to non-numeric Health Serum or Plasma results) System Potassium 3.6 Normal (applies Potassium, [facility] [Mass/volume] in mmol/L to non-numeric Serum Health Serum or Plasma results) System TotalProtein 6.8 Normal (applies Total Protein [facility] mg/dl to non-numeric Health results) System Chloride 99 Below low normal Chloride, [facility] [Moles/volume] in mmol/L Serum Health Serum or Plasma System Carbon dioxide, 27.6 Normal (applies CO2, Serum [facility] total mmol/L to non-numeric Health [Moles/volume] in results) System Serum or Plasma Urea nitrogen 21 Normal (applies Blood Urea [facility] [Mass/volume] in mg/dl to non-numeric Nitrogen, Health Serum or Plasma results) Serum System Glucose 153 Above high Glucose, [facility] [Mass/volume] in mg/dL normal Serum Health Serum or Plasma System Creatinine 1.47 Above high Creatinine, [facility] [Mass/volume] in mg/dl normal Serum Health Serum or Plasma System DirectBilirubin 0.1 Normal (applies Direct [place] mg/dl to non-numeric Bilirubin Health results) System Alkaline 94 Normal (applies Alkaline [facility] phosphatase {IU/L} to non-numeric Phosphatase, Health isoenzymes results) Serum System [Enzymatic activity/volume] in Serum or Plasma by Heat stability Bilirubin.total 0.4 Normal (applies Bilirubin, [facility] [Mass/volume] in mg/dl to non-numeric Serum Total Health Serum or Plasma results) System Aspartate 17 Normal (applies Aspartate [facility] aminotransferase {IU/L} to non-numeric Transaminase, Heal th [Enzymatic results) Serum System activity/volume] in Serum or Plasma by With P-5'-P Albumin 3.7 Normal (applies Albumin, [facility] [Mass/volume] in {gm/dl} to non-numeric Serum Health Serum or Plasma results) System I.Phosphorus 3.4 Normal (applies I. Phosphorus [facility] mg/dl to non-numeric Health results) System Alanine 19 Normal (applies Alanine [facility] aminotransferase {IU/L} to non-numeric Aminotransfer Heal th [Enzymatic results) ase, Serum System activity/volume] in Serum or Plasma Calcium 9.0 Normal (applies Calcium, [facility] [Mass/volume] in mg/dl to non-numeric Total Serum Health Serum or Plasma results) System A/GRatio 1.19 Normal (applies A/G Ratio [facility] to non-numeric Health results) System Anion gap in Serum 9.40 Normal (applies Anion Gap Ludwig janny or Plasma mmol/L to non-numeric Health results) System Urate 7.5 Normal (applies Uric Acid, [facility] [Mass/volume] in mg/dl to non-numeric Serum Health Serum or Plasma results) System Glomerular 50.00 Normal (applies GFR [facility] filtration to non-numeric Health rate/1.73 sq results) System M.predicted [Volume Rate/Area] in Serum or Plasma by Creatinine-based formula (CKD-EPI) eGFR will provide clinicians with a more accurate indicator of renal function then the serum creatinine. The eGFR is automa tically calculated from an empiric formula (endorsed by the National Kid[employer] ion) which incorporates age, sex, and race.Clinicians may notice surprisingly low GFR's with serum creatinine valueswithin normal range- particularly in elderly wo men (with low muscle mass).In the hospital setting, the eGFR should add an element of safety in drug dosing, in assessing the risk of IV contrast administration, and in assessing vascular risk.The NKF staging system is as follows:Normal: eGFR >90 with no kidney markersStage 1: eGFR >90 with kidney markers*Stage 2: eGFR 60- 89Stage 3: eGFR 30-59Stage 4: eGFR 15-29Stage 5: eGFR <15 (usually requir ing dialysis)*Markers include: Proteinuria, Hematuria, abnormal imaging-studies, or other blood or urine test abnormalities ID Date Data Source [id number] 10/23/2019 07:21:33 PM EDT [facility] Name Value Range Interpretation Description Data Sup porting Code Source(s) Document(s ) Prothrombintim 11.50 Normal (applies Prothrombin [facility](PT) {seconds to non-numeric time (PT) Health System } results) INR in Blood 0.99 Normal (applies INR Result [facility] by Coagulation {Ratio} to non-numeric Health Sys tem assay results) Normal = 0.7-1.1Therapeutic = 2.0-3.0Mec hanical Heart = 3.0-4.5 ID Date Data Source [id number] 10/23/2019 07:21:33 PM EDT [facility] Name Value Range Interpretation Description Data Sup porting Code Source(s) Document(s ) aPTT in Blood 29.3 Normal (applies Activated [facility] by Coagulation {Seconds to non-numeric Partial Health assay } results) Thromboplastin System Time ID Date Data Source [id number] 10/23/2019 11:18:00 AM EDT [facility] Nuclear Medicine Examination: Lung Perfu moisés scan (withoutventilation scan)PATIENT DEMOGRAPHICS: Male patient 54 yearsCLIN ICAL INFORMATION: PE;TECHNIQUE: 4.4 millicuries of Technitium-99m MAAwasadmi nistered by vein and perfusion images were obtained. Ventilation images were not o btained in thispatient.COMPARISON: Comparison is made to recent chest radio graph.FINDINGS:Perfusionimages demonstrate no peripheral segmental orsubsegmental defe ct suspicious for pulmonaryembolus.IMPRESSION: PISAPED di agnosis: Pulmonary embolism is absent. Normal perfusionIfstrong clinical concer n persists and/or if the above imagingimpression is discordant with the clinicalimpression,contrast-enhanced CT angiography of the chest would berecomme nded.ElectronicallySigned:Lon Bowie, at 11:54 EDTTel , Service support ,[phone] Name Value Range Interpretation Code Description Data Jackie rce(s) Supporting Document(s ) ID Date Data Source [id number] 10/23/2019 05:32:00 AM EDT [facility] Name Value Range Interpretation Code Description Data Jackie rce(s) Supporting Document(s ) COVID-19.. [facility] This lab was ordered by [facility] and reported by [facility]. ID Date Data Source [id number] 10/23/2019 05:09:00 AM EDT [facility] HISTORY: Fever;EXAMINATION/TECHNIQUE:XR Chest 1 View:COMPARISON: None FINDINGS:LINES/DEVICES:None.LUNG S:No airspace consolidation.Unremarkable inte rstitium.No effusion.Nopneumothorax.MEDIASTINUM: No cardiomegaly.MUSCULOSKELETAL: No acute osseousfinding.IMPRESSION:No evidence of acute cardiopulmonary process. ElectronicallySigned by Clemente Mays MD on 10/23/2019 at 0602 Reported and signed by: Clarissa Caseyion Ph ysician ServicesMER[facility] [address] CLEMENTE MAYS [phone]:Ronnell Mays MD at 6:02 EDTTel , Service support [phone] Name Value Range Interpretation Code Description Data Jackie rce(s) Supporting Document(s ) ID Date Data Source [id number] 10/17/2019 06:30:00 PM EDT [facility] Name Value Range Interpretation Description Data Sup porting Code Source(s) Document(s ) SARS [facility] coronavirus 2 RNA This lab was ordered by [facility] and reported by [facility]. ID Date Data Source [id number] 10/11/2019 05:04:00 PM EDT [facility] Name Value Range Interpretation Description Data Sup porting Code Source(s) Document(s ) SARS [facility] coronavirus 2 RNA This lab was ordered by [facility] and reported by [facility]. ID Date Data Source [id number] 10/11/2019 06:29:00 AM EDT [facility] Name Value Range Interpretation Description Data Sup porting Code Source(s) Document(s ) SARS [facility] coronavirus 2 RNA This lab was ordered by [facility] and reported by [facility]. ID Date Data Source [id number] 10/01/2019 09:30:00 PM EDT [facility] Name Value Range Interpretation Description Data Sup porting Code Source(s) Document(s ) SARS [facility] coronavirus 2 RNA This lab was ordered by [facility] and reported by [facility]. ID Date Data Source [id number] 10/01/2019 12:06:00 PM EDT [facility] Name Value Range Interpretation Description Data Sup porting Code Source(s) Document(s ) SARS [facility] coronavirus 2 RNA This lab was ordered by [facility] and reported by [facility]. ID Date Data Source [id number] 09/24/2019 03:15:00 AM EDT [facility] Name Value Range Interpretation Description Data Sup porting Code Source(s) Document(s ) 2018 Novel [facility] Coronavirus RNA Interpretation Unspecified Specimen Qualitative MEG Probe Detection This lab was ordered by [facility] and reported by [facility]. ID Date Data Source [id number] 09/03/2019 02:51:00 AM EDT [facility] Name Value Range Interpretation Code Description Data Jackie rce(s) Supporting Document(s ) SARS-CoV-2 [facility] N gene Resp Ql MEG+probe This lab was ordered by [facility] and reported by [facility]. ID Date Data Source [id number] 08/26/2019 02:01:00 AM EDT [facility] Name Value Range Interpretation Description Data Sup porting Code Source(s) Document(s ) 2018 Novel [facility] Coronavirus RNA Interpretation Unspecified Specimen Qualitative MEG Probe Detection This lab was ordered by [facility] and reported by [facility]. ID Date Data Source [id number] 08/11/2019 03:01:00 AM EDT [facility] Name Value Range Interpretation Description Data Sup porting Code Source(s) Document(s ) 2018 Novel [facility] Coronavirus RNA Interpretation Unspecified Specimen Qualitative MEG Probe Detection This lab was ordered by [facility] and reported by [facility]. ID Date Data Source [id number] 08/11/2019 03:01:00 AM EDT [facility] Name Value Range Interpretation Description Data Sup porting Code Source(s) Document(s ) 2019 Novel [facility] Coronavirus RNA Interpretation Unspecified Specimen Qualitative MEG Probe Detection This lab was ordered by [facility] and reported by [facility]. ID Date Data Source [id number] 06/25/2019 07:34:00 AM EDT [facility] Added by Discern Rule GLB_ADD_GFR_BMP Name Value Range Interpretation Code Description Data Jackie rce(s) Supporting Document(s ) eGFR-AA 62 >=60 NO [facility] mL/min/[address] The CKD-EPI equation for non- Nini rican individuals is used to calculate the estimated glomerular filtration rate (GF R). To estimate the GFR for Americans, multiply the provided GFR res ult by 1.16. The CKD-EPI equation is validated in individuals 18 years of age or older. It is less accurate in patients with extremes of muscle mass, restrictio n of dietary protein, ingestion of creatine, extra-renal metabolism of creatinine, or treatment with medications that affect renal tubular creatinine secretion.GFR Categor ies in Chronic Kidney Disease (CKD)GFR Category: GFR (mL/min/1.73 m2): Inte rpretation: G1 90 or greater Normal or high*G2 60-89 Mild decrease* G3a 45-59 Mild to moderate [id number] 30-44 Moderate to s evere decreaseG4 15-29 Severe decreaseG5 14 or less Kidney fa ilure eGFR-MEG 51 mL/min/1.73m2 >=60 LO [facility] The CKD-EPI equation for non- [facility] rican individuals is used to calculate the estimated glomerular filtration rate (GF R). To estimate the GFR for Americans, multiply the provided GFR res ult by 1.16. The CKD-EPI equation is validated in individuals 18 years of age or older. It is less accurate in patients with extremes of muscle mass, restrictio n of dietary protein, ingestion of creatine, extra-renal metabolism of creatinine, or treatment with medications that affect renal tubular creatinine secretion.GFR Categor ies in Chronic Kidney Disease (CKD)GFR Category: GFR (mL/min/1.73 m2): Inte rpretation: G1 90 or greater Normal or high*G2 60-89 Mild decrease* G3a 45-59 Mild to moderate [id number] 30-44 Moderate to s evere decreaseG4 15-29 Severe decreaseG5 14 or less Kidney fa [facility] ID Date Data Source [id number] 06/25/2019 07:34:00 AM EDT [facility] Name Value Range Interpretation Description Data Sup porting Code Source(s) Document(s ) Glucose Lvl 172 65-99 HI [place] mg/dL [facility] BUN 25.0 7.0-21.0 [place] mg/dL [facility] Creatinine 1.45 0.70-1.2 HI [place] mg/dL 0 [facility] BUN/Creat 17.2 7.0-29.0 NO [place] Ratio ratio [facility] Sodium Lvl 136 136-146 NO [place] mmol/L [facility] Potassium Lvl 3.1 3.5-5.1 LO [place] mmol/L [facility] Chloride 101 98-109 NO [place] mmol/L [facility] CO2 27 17-33 NO [place] mmol/L [facility] AGAP 8 5-15 NO [facility] Calcium Lvl 8.5 8.3-10.2 NO [place] mg/dL [facility] ID Date Data Source [id number] 06/25/2019 07:03:00 AM EDT [facility] Name Value Range Interpretation Description Data Sup porting Code Source(s) Document(s ) Neut Auto 60.7 % 40.0-70.0 NO [facility] Lymph Auto 29.6 % 22.0-44.0 NO [facility] [place] Auto 9.2 % 4.0-11.0 NO [facility] Eos Auto 0.2 % 0.0-8.0 NO [facility] Baso Auto 0.3 % 0.0-3.0 NO [facility] Neut 5.2 1.8-7.7 NO [place] Absolute x10(3)/[facility] Lymph 2.5 1.0-4.8 NO [place] Absolute x10(3)/[facility] [place] 0.8 0.2-1.2 NO [place] Absolute x10(3)/[facility] Eos Absolute 0.0 0.0-0.9 NO [place] x10(3)/[facility] Baso 0.0 0.0-0.3 NO [place] Absolute x10(3)/[facility] ID Date Data Source [id number] 06/25/2019 07:03:00 AM EDT [facility] Name Value Range Interpretation Description Data Sup porting Code Source(s) Document(s ) WBC 8.5 4.5-11.0 NO [facility] x10(3)/[facility] RBC 3.71 4.50-5.90 [facility] x10(6)/[facility] Hgb 9.1 gm/dL 13.5-17.5 [facility] Hct 28.2 % 41.0-53.0 [facility] MCV 76 fL 80-100 [facility] MCH 24.5 pg 26.0-34.0 [facility] MCHC 32.2 31.0-37.0 [facility] gm/[facility] RDW 14.8 % 11.5-14.5 [facility] Platelet 379 150-350 [facility] x10(3)/[facility] MPV 7.1 fL 7.4-10.4 [facility] ID Date Data Source [id number] 06/24/2019 09:35:00 AM EDT [facility] Name Value Range Interpretation Description Data Sup porting Code Source(s) Document(s ) Phosphorus 4.3 mg/dL 2.5-5.0 [facility] ID Date Data Source [id number] 06/24/2019 09:35:00 AM EDT [facility] patient refused blood work.CIELO Burris was notified.As per patient request, RN to draw blood from port .06/24/2019 08:07:16 EDT, ENK Name Value Range Interpretation Description Data Sup porting Code Source(s) Document(s ) Magnesium 1.9 mg/dL 1.6-2.5 [facility] ID Date Data Source [id number] 06/24/2019 09:35:00 AM EDT [facility] Added by Discern Rule GLB_ADD_GFR_CMP Name Value Range Interpretation Code Description Data Jackie rce(s) Supporting Document(s ) eGFR-AA 38 >=60 [facility] mL/min/1.[address] [place] [address] The CKD-EPI equation for non- Nini rican individuals is used to calculate the estimated glomerular filtration rate (GF R). To estimate the GFR for Americans, multiply the provided GFR res ult by 1.16. The CKD-EPI equation is validated in individuals 18 years of age or older. It is less accurate in patients with extremes of muscle mass, restrictio n of dietary protein, ingestion of creatine, extra-renal metabolism of creatinine, or treatment with medications that affect renal tubular creatinine secretion.GFR Categor ies in Chronic Kidney Disease (CKD)GFR Category: GFR (mL/min/1.73 m2): Inte rpretation: G1 90 or greater Normal or high*G2 60-89 Mild decrease* G3a 45-59 Mild to moderate [id number] 30-44 Moderate to s evere decreaseG4 15-29 Severe decreaseG5 14 or less Kidney fa ilure eGFR-MEG 31 mL/min/1.73m2 >=60 [facility] The CKD-EPI equation for non- Nini rican individuals is used to calculate the estimated glomerular filtration rate (GF R). To estimate the GFR for Americans, multiply the provided GFR res ult by 1.16. The CKD-EPI equation is validated in individuals 18 years of age or older. It is less accurate in patients with extremes of muscle mass, restrictio n of dietary protein, ingestion of creatine, extra-renal metabolism of creatinine, or treatment with medications that affect renal tubular creatinine secretion.GFR Categor ies in Chronic Kidney Disease (CKD)GFR Category: GFR (mL/min/1.73 m2): Inte rpretation: G1 90 or greater Normal or high*G2 60-89 Mild decrease* G3a 45-59 Mild to moderate [id number] 30-44 Moderate to s evere decreaseG4 15-29 Severe decreaseG5 14 or less Kidney fa ilure ID Date Data Source [id number] 06/24/2019 09:35:00 AM EDT [facility] patient refused blood work .Cielo Burris was notified.As per patient request , Cielo to draqw blood from port.06/24/2019 08:05:11 EDT, ENK Name Value Range Interpretation Description Data Sup porting Code Source(s) Document(s ) Glucose Lvl 151 65-99 HI [place] mg/dL [facility] BUN 29.0 7.0-21.0 [place] mg/dL [facility] Creatinine 2.20 0.70-1.2 [place] mg/dL 0 [facility] BUN/Creat 13.2 7.0-29.0 NO [place] Ratio ratio [facility] Sodium Lvl 137 136-146 NO [place] mmol/L [facility] Potassium Lvl 3.5 3.5-5.1 NO [place] mmol/L [facility] Chloride 100 98-109 NO [place] mmol/L [facility] CO2 26 17-33 NO [place] mmol/L [facility] AGAP 11 5-15 NO [facility] Calcium Lvl 8.3 8.3-10.2 NO [place] mg/dL [facility] Total Protein 7.2 6.0-8.3 NO [place] gm/dL [facility] Albumin Lvl 3.0 3.7-5.3 LO [place] gm/dL [facility] Glob 4.2 2.0-4.5 [facility] A/G Ratio 0.7 1.0-2.2 [facility] Bili Total 0.3 0.4-1.1 LO [place] mg/dL [facility] Alk Phos 106 IU/L 30-125 NO [facility] AST 11 IU/L 10-35 NO [facility] ALT 11 IU/L 8-40 NO [facility] ID Date Data Source [id number] 06/24/2019 09:15:00 AM EDT [facility] Name Value Range Interpretation Description Data Sup porting Code Source(s) Document(s ) Neut Auto 65.3 % 40.0-70.0 NO [facility] Lymph Auto 25.1 % 22.0-44.0 NO [facility] [place] Auto 9.2 % 4.0-11.0 NO [facility] Eos Auto 0.2 % 0.0-8.0 NO [facility] Baso Auto 0.2 % 0.0-3.0 NO [facility] Neut 6.0 1.8-7.7 NO [place] Absolute x10(3)/[facility] Lymph 2.3 1.0-4.8 NO [place] Absolute x10(3)/[facility] [place] 0.8 0.2-1.2 NO [place] Absolute x10(3)/[facility] Eos Absolute 0.0 0.0-0.9 NO [place] x10(3)/[facility] Baso 0.0 0.0-0.3 NO [place] Absolute x10(3)/[facility] ID Date Data Source [id number] 06/24/2019 09:15:00 AM EDT [facility] patient refused blood work . Cielo wang.As per PAtient request , Rn has to draw patient from port .06/24/2019 08:03: 02 EDT, ENK Name Value Range Interpretation Description Data Sup porting Code Source(s) Document(s ) WBC 9.2 4.5-11.0 NO [place] x10(3)/[facility] RBC 3.60 4.50-5.90 [place] x10(6)/[facility] Hgb 9.0 gm/dL 13.5-17.5 [facility] Hct 27.6 % 41.0-53.0 [facility] MCV 77 fL 80-100 [facility] MCH 24.9 pg 26.0-34.0 [facility] MCHC 32.5 31.0-37.0 NO [facility] gm/dL [facility] RDW 15.1 % 11.5-14.5 [facility] Platelet 395 150-350 [facility] x10(3)/[facility] MPV 7.3 fL 7.4-10.4 [facility] ID Date Data Source [id number] 06/23/2019 04:40:00 PM EDT [facility] Patient Name: KARSTEN GIBBS EMRN: [id number] Interventional RadiologyACCESSION EXAM DATE/TIME PROCEDURE ORDERING PROVIDER [id number] 06/23/2019 16:01 EDT IR Ins Picc Wo Parashar MBBS, Auth (Verified) Port>=5y KanikaReason For E xam(IR Ins Picc Wo Port>=5y) Poor Venous AccessReportPROCEDURE: PICC Placement A ge 5 years or olderPROCEDURE: Fluoroscopic Guidance CVC AccessPROCEDURE: US Yovanny zhou Vascular AccessProceduralist: Simone Gan MDAssistant: NoneImaging Yovanny ce: Ultrasound: Jordan Mendez Guidance: Fluoroscopic: KONG Gardneredation/Anesthesia: Local analgesiaMedications: Lidocaine 1% subcu taneous infiltrationAccess: Right brachial veinDevice: 4 Welsh by 35 cmClosure: Dr elias sterile dressingContrast: NoneSpecimens: NoneComplications: None immediateEBL: Le ss than 5 cc'sWound Classification: Class I, CleanCLINICAL HISTORY: Poor Venous Acces s. Diabetic gastroparesis. Dehydration.SCRIPT INFORMATION: Poor venous accessCOMPARIS ON: NoneTECHNIQUE:A full explanation of the risks, benefits, and alternatives to the procedure, including the option of doing nothing, was discussed with the patient. All questions and concerns were addressed. Informed and written consent was obtaine d and placed in the patient's chart. An appropriate time out procedure for patie nt, site and procedural verification was performed.The patient was placed supine on the angiography table. The right arm was prepped and draped. All elements of max imal sterile barrier technique including cap, mask, sterile gowns, sterile gloves, a l arge sterile sheet, meticulous hand hygiene were followed. 2% Chlorhexidine was use d for cutaneous antisepsis. Preliminary ultrasound of the right arm was performe d with sterile gel and sterile probe covers to determine adequacy and vessel patency for access and an image was stored. A permanent Ultrasound image was saved to PACS system.Utilizing ultrasound guidance, a 21-gauge micropuncture needle was advanc ed into the right brachial arm vein. Through the needle, a 0.018 wire was placed. Ove r the wire, an peel away introducer sheath was placed. Through the sheath, a 4-Fren ch, 35 cm single-lumen PICC line was advanced to the superior vena cava without compli cation under fluoroscopic guidance. The peel away sheath and wire were then removed. A permanent sonographic image was obtained at the time of puncture, and sent to the [facility]. The catheter was tested, demonstrating good flush and aspiration, and was fixed to the skin.The patient tolerated the procedure well without immediate complic ation. The patient left the angiography suite in stable condition.IMPRESSION:Successfu l ultrasound and fluoroscopically guided PICC line placement in the right arm as descr ibed.Thank you for allowing us to participate in the evaluation of this patient. Final Dictated: Simone Gan MD 06/23/19 15:19Signed: Zohreh Gan MD 06/23/19 16:40Transcribed by: ADM Name Value Range Interpretation Code Description Data Jackie rce(s) Supporting Document(s ) ID Date Data Source [id number] 06/23/2019 05:05:00 AM EDT [facility] Patient Name: KARSTEN GIBBS EMRN: [id number] Computed TomographyACCESSION EXAM DATE/TIME PROCEDURE ORDERING PROVIDER [id number] 06/23/2019 04:[address] Abdomen Pelvis Myra Naidu DO (Verified) No Oral and No IVReason For Exam(CT Abdomen Pelv is No Oral and No IV) Abdominal Pain GeneralizedReportPROCEDURE: Computed To mography Abdomen and Pelvis Without ContrastCLINICAL HISTORY: Abdomen Pain, Nausea, VomitingSCRIPT INFORMATION: abd pain, nausea, vomitingCOMPARISON: 2019 abdomen x-rays.TECHNIQUE:Computed Tomography of the abdomen and pelvis was performed. Transaxial scans of the abdomen and pelvis were obtained without intrave nous contrast administration.FINDINGS:LUNG BASES:The visualized portions of the kim g bases, heart and pericardium are grossly unremarkable.LIVER:The liver is normal i n size and contour.BILIARY SYSTEM:There is no biliary ductal dilatation. The gallblad paz is unremarkable.SPLEEN/PANCREAS:The spleen is grossly unremarkable.The pancr eas is grossly unremarkable.ADRENALS/KIDNEYS:The adrena ls are unremarkable.The kidneys are unremarkable.VASCULATURE:The abdominal a marcie is normal in course and caliber.BOWEL:There is no evidence for s mall bowel obstruction.There is no evidence for free intraperitoneal air.The colon i s normal in caliber.The appendix is not visualized; however, there are no inflam matory changes in the right lower quadrant to suggest appendicitis. Evaluation in the region of the cecum is limited due to patient motion.LYMPH NODES/FLUID:There are enlar ged lymph nodes in the bilateral inguinal chains measuring up to 13 mm in short ax is on the right and 16 mm in short axis on the left.There is no significant abdomin al ascites.BODY WALL:No body wall mass or hernia is identified.BLADDER/GENITALS:Th e urinary bladder is grossly unremarkable.The seminal vesicles are symmetric and the p rostate is grossly unremarkable.BONES:Degenerative disc amber nges are present in the lumbar spine.IMPRESSION:1. Bilateral inguinal a denopathy2. Limited visualization in the region of the cecum due to patient motio n. There are no findings to indicate acute appendicitis.3. Otherwise unremarkable u nenhanced CT of the abdomen and pelvis.Thank you for allowing us to participate in th e evaluation of this patient. Final Dictated: Lon Landrum MD 0 06/23/19 04:54Signed: Lon Landrum MD 06/23/19 05:05Transcribed by: BRG Name Value Range Interpretation Code Description Data Jackie rce(s) Supporting Document(s ) ID Date Data Source [id number] 06/23/2019 04:12:00 AM EDT [facility] Name Value Range Interpretation Description Data Sup porting Code Source(s) Document(s ) Segs 89 % 40-70 [facility] Band 0 % 0-6 [facility] Neutr 16.8 1.8-7.7 RI Dannielle Absolute x10(3)/[facility] Lymph 8 % 22-44 [facility] Monocyte 3 % 4-11 [facility] Eos 0 % 0-8 NO [facility] Basophil 0 % 0-3 [facility] RBC Morph Normocyt AB [facility] /chrom [facility] Anisocyte NO [facility] Platelet NO [facility] Clumps [facility] Plt Estimate NO [facility] ID Date Data Source [id number] 06/23/2019 03:38:00 AM EDT [facility] Added by Discern Rule GLB_ADD_GFR_CMP Name Value Range Interpretation Code Description Data Jackie rce(s) Supporting Document(s ) eGFR-AA 74 >=60 [facility] mL/min/[address] The CKD-EPI equation for non- Nini rican individuals is used to calculate the estimated glomerular filtration rate (GF R). To estimate the GFR for Americans, multiply the provided GFR res ult by 1.16. The CKD-EPI equation is validated in individuals 18 years of age or older. It is less accurate in patients with extremes of muscle mass, restrictio n of dietary protein, ingestion of creatine, extra-renal metabolism of creatinine, or treatment with medications that affect renal tubular creatinine secretion.GFR Categor ies in Chronic Kidney Disease (CKD)GFR Category: GFR (mL/min/1.73 m2): Inte rpretation: G1 90 or greater Normal or high*G2 60-89 Mild decrease* G3a 45-59 Mild to moderate [id number] 30-44 Moderate to s evere decreaseG4 15-29 Severe decreaseG5 14 or less Kidney fa ilure eGFR-MEG 61 mL/min/1.73m2 >=60 [facility] The CKD-EPI equation for non- Nini rican individuals is used to calculate the estimated glomerular filtration rate (GF R). To estimate the GFR for Americans, multiply the provided GFR res ult by 1.16. The CKD-EPI equation is validated in individuals 18 years of age or older. It is less accurate in patients with extremes of muscle mass, restrictio n of dietary protein, ingestion of creatine, extra-renal metabolism of creatinine, or treatment with medications that affect renal tubular creatinine secretion.GFR Categor ies in Chronic Kidney Disease (CKD)GFR Category: GFR (mL/min/1.73 m2): Inte rpretation: G1 90 or greater Normal or high*G2 60-89 Mild decrease* G3a 45-59 Mild to moderate [id number] 30-44 Moderate to s evere decreaseG4 15-29 Severe decreaseG5 14 or less Kidney fa ilure ID Date Data Source [id number] 06/23/2019 03:38:00 AM EDT [facility] Name Value Range Interpretation Code Description Data Jackie rce(s) Supporting Document(s ) Lipase Lvl 19 IU/L 10-59 NO [facility] ID Date Data Source [id number] 06/23/2019 03:38:00 AM EDT [facility] Name Value Range Interpretation Description Data Sup porting Code Source(s) Document(s ) Glucose Lvl 202 65-99 [place] mg/dL [facility] BUN 15.0 7.0-21.0 [place] mg/dL [facility] Creatinine 1.24 0.70-1.2 [place] mg/dL 0 [facility] BUN/Creat 12.1 7.0-29.0 NO [place] Ratio ratio [facility] Sodium Lvl 132 136-146 [place] mmol/L [facility] Potassium Lvl 4.1 3.5-5.1 NO [place] mmol/L [facility] Chloride 98 98-109 [place] mmol/L [facility] CO2 21 17-33 [place] mmol/L [facility] AGAP 13 5-15 NO [place] [facility] Calcium Lvl 8.8 8.3-10.2 NO [place] mg/dL [facility] Total Protein 8.1 6.0-8.3 [place] gm/dL [facility] Albumin Lvl 3.1 3.7-5.3 [place] gm/dL [facility] Glob 5.0 2.0-4.5 [facility] A/G Ratio 0.6 1.0-2.2 [facility] ratio [facility] Bili Total 1.1 0.4-1.1 [place] mg/dL [facility] Alk Phos 128 IU/L 30-125 [facility] AST 28 IU/L 10-35 [facility] ALT 15 IU/L 8-40 NO [facility] ID Date Data Source [id number] 06/23/2019 03:35:00 AM EDT [facility] Name Value Range Interpretation Description Data Sup porting Code Source(s) Document(s ) WBC 18.9 4.5-11.0 [place] x10(3)/[facility] RBC 4.01 4.50-5.90 [place] x10(6)/[facility] Hgb 9.9 gm/dL 13.5-17.5 [facility] Hct 30.2 % 41.0-53.0 [facility] MCV 76 fL 80-100 [facility] MCH 24.8 pg 26.0-34.0 [facility] MCHC 32.8 31.0-37.0 [place] gm/dL [facility] RDW 15.1 % 11.5-14.5 [facility] Platelet 404 150-350 [place] x10(3)/[facility] MPV 8.7 fL 7.4-10.4 [facility] ID Date Data Source [id number] 06/23/2019 03:16:00 AM EDT [facility] Name Value Range Interpretation Description Data Sup porting Code Source(s) Document(s ) Troponin- 0.01 0.02-0.05 GRETEL Spicer I ng/mL [facility] ID Date Data Source [id number] 06/09/2019 05:56:00 PM EST [facility] Added by Discern Rule GLB_ADD_GFR_BMP Name Value Range Interpretation Code Description Data Jackie rce(s) Supporting Document(s ) eGFR-AA 74 >=60 [facility] mL/min/1.[address] The CKD-EPI equation for non- Nini rican individuals is used to calculate the estimated glomerular filtration rate (GF R). To estimate the GFR for Americans, multiply the provided GFR res ult by 1.16. The CKD-EPI equation is validated in individuals 18 years of age or older. It is less accurate in patients with extremes of muscle mass, restrictio n of dietary protein, ingestion of creatine, extra-renal metabolism of creatinine, or treatment with medications that affect renal tubular creatinine secretion.GFR Categor ies in Chronic Kidney Disease (CKD)GFR Category: GFR (mL/min/1.73 m2): Inte rpretation: G1 90 or greater Normal or high*G2 60-89 Mild decrease* G3a 45-59 Mild to moderate [id number] 30-44 Moderate to s evere decreaseG4 15-29 Severe decreaseG5 14 or less Kidney fa ilure eGFR-MEG 61 mL/min/1.73m2 >=60 NO [facility] The CKD-EPI equation for non- Nini rican individuals is used to calculate the estimated glomerular filtration rate (GF R). To estimate the GFR for Americans, multiply the provided GFR res ult by 1.16. The CKD-EPI equation is validated in individuals 18 years of age or older. It is less accurate in patients with extremes of muscle mass, restrictio n of dietary protein, ingestion of creatine, extra-renal metabolism of creatinine, or treatment with medications that affect renal tubular creatinine secretion.GFR Categor ies in Chronic Kidney Disease (CKD)GFR Category: GFR (mL/min/1.73 m2): Inte rpretation: G1 90 or greater Normal or high*G2 60-89 Mild decrease* G3a 45-59 Mild to moderate [id number] 30-44 Moderate to s evere decreaseG4 15-29 Severe decreaseG5 14 or less Kidney fa ilure ID Date Data Source [id number] 06/09/2019 05:56:00 PM [facility] Name Value Range Interpretation Description Data Sup porting Code Source(s) Document(s ) Magnesium 2.0 mg/dL 1.6-2.5 NO [facility] ID Date Data Source [id number] 06/09/2019 05:56:00 PM EST [facility] PATIENT ASKED TO COME BACK IN 30 MINS BRIDGET 06/09/2019 15:47:54 EST Name Value Range Interpretation Description Data Sup porting Code Source(s) Document(s ) Glucose Lvl 218 65-99 [place] mg/dL [facility] BUN 19.0 7.0-21.0 [place] mg/dL [facility] Creatinine 1.24 0.70-1.2 [place] mg/dL 0 [facility] BUN/Creat 15.3 7.0-29.0 NO [place] Ratio ratio [facility] Sodium Lvl 129 136-146 [place] mmol/L [facility] Potassium Lvl 3.7 3.5-5.1 NO [place] mmol/L [facility] Chloride 99 98-109 NO [place] mmol/L [facility] CO2 22 17-33 NO [place] mmol/L [facility] AGAP 8 5-15 [place] [facility] Calcium Lvl 8.0 8.3-10.2 [place] mg/dL [facility] ID Date Data Source [id number] 06/09/2019 09:59:00 PM EST [facility] Name Value Range Interpretation Description Data Sup porting Code Source(s) Document(s ) U Osmolality 601 50-1200 [place] mOsm/kg [facility] Test performed on the [employer] Micro-Osm ometer using freezing point depression. ID Date Data Source [id number] 06/09/2019 04:24:00 PM EST [facility] Name Value Range Interpretation Code Description Data Jackie rce(s) Supporting Document(s ) U Sodium 124 mmol/L NA [facility] Normal ranges for Sodium in random urine are diet dependent. U Potassium 27.6 mmol/L NA [facility] Normal ranges for Potassium in random ur ine are diet dependent. U Chloride 133 mmol/L 15-400 [facility] Normal ranges for Chloride in random uri ne are diet dependent. ID Date Data Source [id number] 06/09/2019 07:14:00 AM [facility] Name Value Range Interpretation Description Data Sup porting Code Source(s) Document(s ) Magnesium 1.7 mg/dL 1.6-2.5 NO [facility] ID Date Data Source [id number] 06/09/2019 07:14:00 AM [facility] Added by Discern Rule GLB_ADD_GFR_BMP Name Value Range Interpretation Code Description Data Jackie rce(s) Supporting Document(s ) eGFR-AA 84 >=60 NO [facility] mL/min/[address] [place] [address] The CKD-EPI equation for non- Nini rican individuals is used to calculate the estimated glomerular filtration rate (GF R). To estimate the GFR for Americans, multiply the provided GFR res ult by 1.16. The CKD-EPI equation is validated in individuals 18 years of age or older. It is less accurate in patients with extremes of muscle mass, restrictio n of dietary protein, ingestion of creatine, extra-renal metabolism of creatinine, or treatment with medications that affect renal tubular creatinine secretion.GFR Categor ies in Chronic Kidney Disease (CKD)GFR Category: GFR (mL/min/1.73 m2): Inte rpretation: G1 90 or greater Normal or high*G2 60-89 Mild decrease* G3a 45-59 Mild to moderate [id number] 30-44 Moderate to s evere decreaseG4 15-29 Severe decreaseG5 14 or less Kidney fa ilure eGFR-MEG 69 mL/min/1.73m2 >=60 NO [facility] The CKD-EPI equation for non- Nini rican individuals is used to calculate the estimated glomerular filtration rate (GF R). To estimate the GFR for Americans, multiply the provided GFR res ult by 1.16. The CKD-EPI equation is validated in individuals 18 years of age or older. It is less accurate in patients with extremes of muscle mass, restrictio n of dietary protein, ingestion of creatine, extra-renal metabolism of creatinine, or treatment with medications that affect renal tubular creatinine secretion.GFR Categor ies in Chronic Kidney Disease (CKD)GFR Category: GFR (mL/min/1.73 m2): Inte rpretation: G1 90 or greater Normal or high*G2 60-89 Mild decrease* G3a 45-59 Mild to moderate [id number] 30-44 Moderate to s evere decreaseG4 15-29 Severe decreaseG5 14 or less Kidney fa ilure ID Date Data Source [id number] 06/09/2019 07:14:00 AM [facility] Name Value Range Interpretation Description Data Sup porting Code Source(s) Document(s ) Glucose Lvl 150 65-99 [place] mg/dL [facility] BUN 20.0 7.0-21.0 NO [place] mg/dL [facility] Creatinine 1.11 0.70-1.2 NO [place] mg/dL 0 [facility] BUN/Creat 18.0 7.0-29.0 NO [place] Ratio ratio [facility] Sodium Lvl 129 136-146 LO [place] mmol/L [facility] Potassium Lvl 2.9 3.5-5.1 LO [place] mmol/L [facility] Chloride 99 98-109 NO [place] mmol/L [facility] CO2 22 17-33 NO [place] mmol/L [facility] AGAP 8 5-15 NO [place] [facility] Calcium Lvl 8.3 8.3-10.2 NO [place] mg/dL [facility] ID Date Data Source [id number] 06/08/2019 08:05:00 AM EST [facility] Added by Discern Rule GLB_ADD_GFR_BMP Name Value Range Interpretation Code Description Data Jackie rce(s) Supporting Document(s ) eGFR-AA 86 >=60 [facility] mL/min/1.[address] [place] [address] The CKD-EPI equation for non- Nini rican individuals is used to calculate the estimated glomerular filtration rate (GF R). To estimate the GFR for Americans, multiply the provided GFR res ult by 1.16. The CKD-EPI equation is validated in individuals 18 years of age or older. It is less accurate in patients with extremes of muscle mass, restrictio n of dietary protein, ingestion of creatine, extra-renal metabolism of creatinine, or treatment with medications that affect renal tubular creatinine secretion.GFR Categor ies in Chronic Kidney Disease (CKD)GFR Category: GFR (mL/min/1.73 m2): Inte rpretation: G1 90 or greater Normal or high*G2 60-89 Mild decrease* G3a 45-59 Mild to moderate [id number] 30-44 Moderate to s evere decreaseG4 15-29 Severe decreaseG5 14 or less Kidney fa ilure eGFR-MEG 71 mL/min/1.73m2 >=60 NO [facility] The CKD-EPI equation for non- Nini rican individuals is used to calculate the estimated glomerular filtration rate (GF R). To estimate the GFR for Americans, multiply the provided GFR res ult by 1.16. The CKD-EPI equation is validated in individuals 18 years of age or older. It is less accurate in patients with extremes of muscle mass, restrictio n of dietary protein, ingestion of creatine, extra-renal metabolism of creatinine, or treatment with medications that affect renal tubular creatinine secretion.GFR Categor ies in Chronic Kidney Disease (CKD)GFR Category: GFR (mL/min/1.73 m2): Inte rpretation: G1 90 or greater Normal or high*G2 60-89 Mild decrease* G3a 45-59 Mild to moderate [id number] 30-44 Moderate to s evere decreaseG4 15-29 Severe decreaseG5 14 or less Kidney fa ilure ID Date Data Source [id number] 06/08/2019 08:05:00 AM EST [facility] Name Value Range Interpretation Description Data Sup porting Code Source(s) Document(s ) Glucose Lvl 158 65-99 [place] mg/dL [facility] BUN 21.0 7.0-21.0 NO [place] mg/dL [facility] Creatinine 1.09 0.70-1.2 NO [place] mg/dL 0 [facility] BUN/Creat 19.3 7.0-29.0 NO [place] Ratio ratio [facility] Sodium Lvl 131 136-146 LO [place] mmol/L [facility] Potassium Lvl 3.0 3.5-5.1 LO [place] mmol/L [facility] Chloride 100 98-109 NO [place] mmol/L [facility] CO2 23 17-33 NO [place] mmol/L [facility] AGAP 8 5-15 NO [facility] Calcium Lvl 8.5 8.3-10.2 [place] mg/dL [facility] ID Date Data Source [id number] 06/07/2019 08:50:00 AM EST [facility] Name Value Range Interpretation Description Data Sup porting Code Source(s) Document(s ) Neut Auto 67.3 % 40.0-70.0 NO [facility] Lymph Auto 21.9 % 22.0-44.0 [facility] [place] Auto 10.1 % 4.0-11.0 [facility] Eos Auto 0.3 % 0.0-8.0 [facility] Baso Auto 0.4 % 0.0-3.0 [facility] Neut 6.2 1.8-7.7 NO [place] Absolute x10(3)/[facility] Lymph 2.0 1.0-4.8 NO [place] Absolute x10(3)/[facility] [place] 0.9 0.2-1.2 NO [place] Absolute x10(3)/[facility] Eos Absolute 0.0 0.0-0.9 [place] x10(3)/[facility] Baso 0.0 0.0-0.3 NO [place] Absolute x10(3)/[facility] ID Date Data Source [id number] 06/07/2019 08:50:00 AM [facility] Name Value Range Interpretation Description Data Sup porting Code Source(s) Document(s ) WBC 9.1 4.5-11.0 NO Hillaryce x10(3)/[facility] RBC 4.07 4.50-5.90 LO Hillaryce x10(6)/[facility] Hgb 10.2 13.5-17.5 LO [facility] gm/dL [facility] Hct 31.2 % 41.0-53.0 [facility] MCV 77 fL 80-100 [facility] MCH 25.1 pg 26.0-34.0 [facility] MCHC 32.8 31.0-37.0 [place] gm/dL [facility] RDW 14.7 % 11.5-14.5 [facility] Platelet 283 150-350 NO [facility] x10(3)/[facility] MPV 7.9 fL 7.4-10.4 [facility] ID Date Data Source [id number] 06/07/2019 08:02:00 AM [facility] Added by Discern Rule GLB_ADD_GFR_RENAL Name Value Range Interpretation Code Description Data Jackie rce(s) Supporting Document(s ) eGFR-AA >90 >=60 [facility] mL/min/[address] The CKD-EPI equation for non- Nini rican individuals is used to calculate the estimated glomerular filtration rate (GF R). To estimate the GFR for Americans, multiply the provided GFR res ult by 1.16. The CKD-EPI equation is validated in individuals 18 years of age or older. It is less accurate in patients with extremes of muscle mass, restrictio n of dietary protein, ingestion of creatine, extra-renal metabolism of creatinine, or treatment with medications that affect renal tubular creatinine secretion.GFR Categor ies in Chronic Kidney Disease (CKD)GFR Category: GFR (mL/min/1.73 m2): Inte rpretation: G1 90 or greater Normal or high*G2 60-89 Mild decrease* G3a 45-59 Mild to moderate [id number] 30-44 Moderate to s evere decreaseG4 15-29 Severe decreaseG5 14 or less Kidney fa ilure eGFR-MEG 77 mL/min/1.73m2 >=60 NO Dannielle [facility] The CKD-EPI equation for non- Nini rican individuals is used to calculate the estimated glomerular filtration rate (GF R). To estimate the GFR for Americans, multiply the provided GFR res ult by 1.16. The CKD-EPI equation is validated in individuals 18 years of age or older. It is less accurate in patients with extremes of muscle mass, restrictio n of dietary protein, ingestion of creatine, extra-renal metabolism of creatinine, or treatment with medications that affect renal tubular creatinine secretion.GFR Categor ies in Chronic Kidney Disease (CKD)GFR Category: GFR (mL/min/1.73 m2): Inte rpretation: G1 90 or greater Normal or high*G2 60-89 Mild decrease* G3a 45-59 Mild to moderate [id number] 30-44 Moderate to s evere decreaseG4 15-29 Severe decreaseG5 14 or less Kidney fa reji ID Date Data Source [id number] 06/07/2019 08:02:00 AM EST Dannielle [facility] Name Value Range Interpretation Description Data Sup porting Code Source(s) Document(s ) Albumin Lvl 2.8 3.7-5.3 [place] gm/dL [facility] Calcium Lvl 8.2 8.3-10.2 [place] mg/dL [facility] CO2 23 17-33 NO [place] mmol/L [facility] Chloride 103 98-109 NO [place] mmol/L [facility] Creatinine 1.01 0.70-1.2 NO [place] mg/dL 0 [facility] Glucose Lvl 162 65-99 [place] mg/dL [facility] Phosphorus 2.3 2.5-5.0 LO [place] mg/dL [facility] BUN 19.0 7.0-21.0 NO [place] mg/dL [facility] Sodium Lvl 133 136-146 [place] mmol/L [facility] Potassium Lvl 3.1 3.5-5.1 [place] mmol/L [facility] BUN/Creat 18.8 7.0-29.0 NO [place] Ratio ratio [facility] ID Date Data Source [id number] 06/07/2019 08:02:00 AM EST [facility] Name Value Range Interpretation Description Data Sup porting Code Source(s) Document(s ) Magnesium 1.8 mg/dL 1.6-2.5 NO Nuvallejoce [facility] ID Date Data Source [id number] 06/06/2019 01:07:00 PM [facility] Patient Name: KARSTEN GIBBS EMRN: [id number] General DiagnosticACCESSION EXAM DATE/TIME PROCEDURE ORDERING PROVIDER [id number] 06/06/2019 13:01 EST XR Abdomen 2 Views Solitario CL[place], Dequan Auth (Verified)[place] son For Exam(XR Abdomen 2 Views) Abd PainReportPROCEDURE: Radiograph Abdomen 2 ViewsCLINICAL HISTORY: Abdomen PainSCRIPT INFORMATION: abd painCOMPARISON: None.T ECHNIQUE:Supine and erect radiographic views of the abdomen were performed.FINDINGS:T he bowel gas pattern is nonspecific with no obstruction identified.There is no evide nce for free intraperitoneal air.No masses or abnormal calculi are identified.The visu alized bony structures are unremarkable.The visualized lung bases are clear.IMPRESSI ON:Normal abdominal radiographs.Thank you for allowing us to participate in the evalua tion of this patient. Final Dictated: Jeffery Porter DO 0 06/06/19 13:06Signed: Jeffery Porter DO 06/06/19 13:07Transcribed by: ESK Name Value Range Interpretation Code Description Data Jackie rce(s) Supporting Document(s ) ID Date Data Source [id number] 06/06/2019 09:04:00 AM EST [facility] Name Value Range Interpretation Description Data Sup porting Code Source(s) Document(s ) Magnesium 2.0 mg/dL 1.6-2.5 NO [facility] ID Date Data Source [id number] 06/06/2019 09:04:00 AM EST [facility] Added by Discern Rule GLB_ADD_GFR_CMP Name Value Range Interpretation Code Description Data Jackie rce(s) Supporting Document(s ) eGFR-AA 69 >=60 [facility] mL/min/1.[address] The CKD-EPI equation for non- Nini rican individuals is used to calculate the estimated glomerular filtration rate (GF R). To estimate the GFR for Americans, multiply the provided GFR res ult by 1.16. The CKD-EPI equation is validated in individuals 18 years of age or older. It is less accurate in patients with extremes of muscle mass, restrictio n of dietary protein, ingestion of creatine, extra-renal metabolism of creatinine, or treatment with medications that affect renal tubular creatinine secretion.GFR Categor ies in Chronic Kidney Disease (CKD)GFR Category: GFR (mL/min/1.73 m2): Inte rpretation: G1 90 or greater Normal or high*G2 60-89 Mild decrease* G3a 45-59 Mild to moderate [id number] 30-44 Moderate to s evere decreaseG4 15-29 Severe decreaseG5 14 or less Kidney fa ilure eGFR-MEG 57 mL/min/1.73m2 >=60 [facility] The CKD-EPI equation for non- Nini r[place] individuals is used to calculate the estimated glomerular filtration rate (GF R). To estimate the GFR for Americans, multiply the provided GFR res ult by 1.16. The CKD-EPI equation is validated in individuals 18 years of age or older. It is less accurate in patients with extremes of muscle mass, restrictio n of dietary protein, ingestion of creatine, extra-renal metabolism of creatinine, or treatment with medications that affect renal tubular creatinine secretion.GFR Categor ies in Chronic Kidney Disease (CKD)GFR Category: GFR (mL/min/1.73 m2): Inte rpretation: G1 90 or greater Normal or high*G2 60-89 Mild decrease* G3a 45-59 Mild to moderate [id number] 30-44 Moderate to s evere decreaseG4 15-29 Severe decreaseG5 14 or less Kidney fa ilure ID Date Data Source [id number] 06/06/2019 09:04:00 AM EST [facility] Name Value Range Interpretation Description Data Sup porting Code Source(s) Document(s ) Glucose Lvl 149 65-99 [place] mg/dL [facility] BUN 28.0 7.0-21.0 [place] mg/dL [facility] Creatinine 1.32 0.70-1.2 [place] mg/dL 0 [facility] BUN/Creat 21.2 7.0-29.0 [place] Ratio ratio [facility] Sodium Lvl 134 136-146 [place] mmol/L [facility] Potassium Lvl 3.2 3.5-5.1 [place] mmol/L [facility] Chloride 104 98-109 [place] mmol/L [facility] CO2 21 17-33 [place] mmol/L [facility] AGAP 9 5-15 NO [facility] Calcium Lvl 8.1 8.3-10.2 [place] mg/dL [facility] Total Protein 7.7 6.0-8.3 [place] gm/dL [facility] Albumin Lvl 3.2 3.7-5.3 [place] gm/dL [facility] Glob 4.5 2.0-4.5 [place] gm/dL [facility] A/G Ratio 0.7 1.0-2.2 [place] ratio [facility] Bili Total 0.8 0.4-1.1 [place] mg/dL [facility] Alk Phos 91 IU/L 30-125 NO [facility] AST 13 IU/L 10-35 NO [facility] ALT 13 IU/L 8-40 NO [facility] ID Date Data Source [id number] 06/06/2019 08:43:00 AM EST [facility] Name Value Range Interpretation Description Data Sup porting Code Source(s) Document(s ) Neut Auto 74.4 % 40.0-70.0 [facility] Lymph Auto 16.3 % 22.0-44.0 [facility] [place] Auto 8.5 % 4.0-11.0 NO [facility] Eos Auto 0.4 % 0.0-8.0 NO [facility] Baso Auto 0.4 % 0.0-3.0 NO [facility] Neut 7.6 1.8-7.7 [place] Absolute x10(3)/[facility] Lymph 1.7 1.0-4.8 NO [place] Absolute x10(3)/[facility] [place] 0.9 0.2-1.2 NO [place] Absolute x10(3)/[facility] Eos Absolute 0.0 0.0-0.9 [place] x10(3)/[facility] Baso 0.0 0.0-0.3 NO [place] Absolute x10(3)/[facility] ID Date Data Source [id number] 06/06/2019 08:43:00 AM EST [facility] Name Value Range Interpretation Description Data Sup porting Code Source(s) Document(s ) WBC 10.2 4.5-11.0 [place] x10(3)/[facility] RBC 3.90 4.50-5.90 [place] x10(6)/[facility] Hgb 9.6 gm/dL 13.5-17.5 [facility] Hct 30.6 % 41.0-53.0 [facility] MCV 78 fL 80-100 [facility] MCH 24.5 pg 26.0-34.0 [facility] MCHC 31.3 31.0-37.0 [place] gm/dL [facility] RDW 14.8 % 11.5-14.5 [facility] Platelet 296 150-350 NO [facility] x10(3)/[facility] MPV 7.8 fL 7.4-10.4 NO [facility] ID Date Data Source [id number] 06/05/2019 08:46:00 PM EST [facility] UA Microscopic added by rubio Baron to an Abnormal Macroscopic Result. Name Value Range Interpretation Description Data Sup porting Code Source(s) Document(s ) UA WBC None Seen AB [facility] UA RBC None Seen [facility] UA Bacteria None Seen NO [facility] UA Hyal Cast None Seen AB [facility] UA Fine Gran None Seen AB [facility] ID Date Data Source [id number] 06/05/2019 08:39:00 PM EST [facility] Name Value Range Interpretation Description Data Sup porting Code Source(s) Document(s ) UA Color Yellow NO [facility] UA Appear Clear NO [facility] UA pH 5.0-8.0 [facility] UA Spec Grav 1.021 1.005-1.030 [facility] UA Glucose Negative [facility] UA Ketones Negative [facility] UA Urobilinogen 0.2-1.0 [facility] UA Bili Negative [facility] UA Blood Negative AB [facility] UA Protein Negative [facility] UA Nitrite Negative NO [facility] UA Leuk Est Negative NO [facility] ID Date Data Source [id number] 06/05/2019 08:39:00 PM EST [facility] Name Value Range Interpretation Description Data Sup porting Code Source(s) Document(s ) U Amph Not Detected NO [facility] Scr [facility] Result created by Checkr rule.Substance of abuse cutoff levels:Amphetamine...................... .....1000 mA/minBarbiturate....................... .....300 mA/minBenzodiazepine.................... .....200 mA/minCannibinoid....................... ......50 mA/minCocaine........................... .....300 mA/minOpiates........................... .....300 mA/minPhencyclidine (PCP).....................25 mA/minMetha done..............................300 mA/minPropoxypene....................... .....300 mA/minPlease note: This is a urine screening test only.Positive results are presumptive and are not confirmed by a secondary method. Unconfirmed screening results are to be used only for medical purposes. U Johanny Scr Not Detected NO [facility] Result created by Checkr rule. U Benzodia Scr Not Detected NO [facility] Result created by Checkr rule. U Cannab Scr Not Detected NO [facility] Result created by Checkr rule. U Cocaine Scr Not Detected NO [facility] Result created by Checkr rule. U Opiate Scr Not Detected NA [facility] Result created by Checkr rule.This Opia te assay does NOT detect the semi-synthetic opioids Oxycontin, Oxycodone, Percodan, or Percocet. U Phencyclidine Not Detected NO [facility] Result created by Discern rule. U Propoxyphene Not Detected NA [facility] Result created by Discern rule. U Methadone Not Detected NO [facility] Result created by Discern rule. ID Date Data Source [id number] 06/06/2019 12:29:00 PM EST [facility] Name Value Range Interpretation Description Data Sup porting Code Source(s) Document(s ) Hemoglobin A1C 7.1 % <=5.6 HI [facility] 5.7-6.4% Pre-diabetes> 6.4% Diagno stic for diabetes(Summarized from [employer] 2018 Standards)This test was performed using the [employer] Hb 9210 Analyzer utilizing [employer]. ID Date Data Source [id number] 06/05/2019 06:50:00 PM [facility] Added by Discern Rule GLB_ADD_GFR_BMP Name Value Range Interpretation Code Description Data Jackie rce(s) Supporting Document(s ) eGFR-AA 46 >=60 LO [facility] mL/min/[address] The CKD-EPI equation for non- Nini rican individuals is used to calculate the estimated glomerular filtration rate (GF R). To estimate the GFR for Americans, multiply the provided GFR res ult by 1.16. The CKD-EPI equation is validated in individuals 18 years of age or older. It is less accurate in patients with extremes of muscle mass, restrictio n of dietary protein, ingestion of creatine, extra-renal metabolism of creatinine, or treatment with medications that affect renal tubular creatinine secretion.GFR Categor ies in Chronic Kidney Disease (CKD)GFR Category: GFR (mL/min/1.73 m2): Inte rpretation: G1 90 or greater Normal or high*G2 60-89 Mild decrease* G3a 45-59 Mild to moderate [id number] 30-44 Moderate to s evere decreaseG4 15-29 Severe decreaseG5 14 or less Kidney fa ilure eGFR-MEG 38 mL/min/1.73m2 >=60 LO [facility] The CKD-EPI equation for non- Nini rican individuals is used to calculate the estimated glomerular filtration rate (GF R). To estimate the GFR for Americans, multiply the provided GFR res ult by 1.16. The CKD-EPI equation is validated in individuals 18 years of age or older. It is less accurate in patients with extremes of muscle mass, restrictio n of dietary protein, ingestion of creatine, extra-renal metabolism of creatinine, or treatment with medications that affect renal tubular creatinine secretion.GFR Categor ies in Chronic Kidney Disease (CKD)GFR Category: GFR (mL/min/1.73 m2): Inte rpretation: G1 90 or greater Normal or high*G2 60-89 Mild decrease* G3a 45-59 Mild to moderate [id number] 30-44 Moderate to s evere decreaseG4 15-29 Severe decreaseG5 14 or less Kidney fa ilure ID Date Data Source [id number] 06/05/2019 06:50:00 PM [facility] Name Value Range Interpretation Description Data Sup porting Code Source(s) Document(s ) Glucose Lvl 161 65-99 [place] mg/dL [facility] BUN 36.0 7.0-21.0 [place] mg/dL [facility] Creatinine 1.87 0.70-1.2 [place] mg/dL 0 [facility] BUN/Creat 19.3 7.0-29.0 NO [place] Ratio ratio [facility] Sodium Lvl 137 136-146 NO [place] mmol/L [facility] Potassium Lvl 3.5 3.5-5.1 NO [place] mmol/L [facility] Chloride 108 98-109 NO [place] mmol/L [facility] CO2 22 17-33 [place] mmol/L [facility] AGAP 7 5-15 [place] [facility] Calcium Lvl 8.2 8.3-10.2 [place] mg/dL [facility] ID Date Data Source [id number] 06/05/2019 03:11:00 PM [facility] Patient Name: KARSTEN GIBBS EMRN: [id number] UltrasoundACCESSION EXAM DATE/TIME PROCEDURE ORDERING PROVIDER [id number] 14:22 EST [facility] [place], Dequan Floyd (Verified)Reason For E xam(US Kidneys) Renal FailureReportPROCEDURE: US Retroperitoneal LimitedCLINICAL HIST ORY: Elevated Blood Urea Nitrogen and CreatinineSCRIPT INFORMATION: renal usCO MPARISON: None.TECHNIQUE:Renal ultrasound evaluation was performed real time with image documentation.FINDINGS:RIGHT KIDNEY:The right kidney measures 14.7 cm.The right kidney is normal in contour and echotexture.There is no evidence for hyd ronephrosis.LEFT KIDNEY:The left kidney measures 13.0 cm.The left kidney is norm al in contour and echotexture.There is a 5 mm echogenic, shadowing nonobstructing calc ulus. No hydronephrosis is seen.IMPRESSION:Small nonobstructing lef t renal calculus. Otherwise unremarkable exam.Thank you for allowing us to partic ipate in the evaluation of this patient. Final Dictated: Areli Oates MD06/05/19 15:08Signed: Emmett Oates MD 06/05/19 15:11Transcribed by: LORIN Name Value Range Interpretation Code Description Data Jackie rce(s) Supporting Document(s ) ID Date Data Source [id number] 06/05/2019 08:20:00 AM [facility] Added by Discern Rule GLB_ADD_GFR_BMP Name Value Range Interpretation Code Description Data Jackie rce(s) Supporting Document(s ) eGFR-AA 40 >=60 [facility] mL/min/1.[address] The CKD-EPI equation for non- Nini rican individuals is used to calculate the estimated glomerular filtration rate (GF R). To estimate the GFR for Americans, multiply the provided GFR res ult by 1.16. The CKD-EPI equation is validated in individuals 18 years of age or older. It is less accurate in patients with extremes of muscle mass, restrictio n of dietary protein, ingestion of creatine, extra-renal metabolism of creatinine, or treatment with medications that affect renal tubular creatinine secretion.GFR Categor ies in Chronic Kidney Disease (CKD)GFR Category: GFR (mL/min/1.73 m2): Inte rpretation: G1 90 or greater Normal or high*G2 60-89 Mild decrease* G3a 45-59 Mild to moderate [id number] 30-44 Moderate to s evere decreaseG4 15-29 Severe decreaseG5 14 or less Kidney fa ilure eGFR-MEG 33 mL/min/1.73m2 >=60 LO [facility] The CKD-EPI equation for non- Nini rican individuals is used to calculate the estimated glomerular filtration rate (GF R). To estimate the GFR for Americans, multiply the provided GFR res ult by 1.16. The CKD-EPI equation is validated in individuals 18 years of age or older. It is less accurate in patients with extremes of muscle mass, restrictio n of dietary protein, ingestion of creatine, extra-renal metabolism of creatinine, or treatment with medications that affect renal tubular creatinine secretion.GFR Categor ies in Chronic Kidney Disease (CKD)GFR Category: GFR (mL/min/1.73 m2): Inte rpretation: G1 90 or greater Normal or high*G2 60-89 Mild decrease* G3a 45-59 Mild to moderate [id number] 30-44 Moderate to s evere decreaseG4 15-29 Severe decreaseG5 14 or less Kidney fa reji ID Date Data Source [id number] 06/05/2019 08:20:00 AM EST [facility] Name Value Range Interpretation Description Data Sup porting Code Source(s) Document(s ) Glucose Lvl 148 65-99 [place] mg/dL [facility] BUN 41.0 7.0-21.0 [place] mg/dL [facility] Creatinine 2.12 0.70-1.2 [place] mg/dL 0 [facility] BUN/Creat 19.3 7.0-29.0 [place] Ratio ratio [facility] Sodium Lvl 137 136-146 NO [place] mmol/L [facility] Potassium Lvl 3.6 3.5-5.1 NO [place] mmol/L [facility] Chloride 109 98-109 NO [place] mmol/L [facility] CO2 22 17-33 [place] mmol/L [facility] AGAP 6 5-15 NO [facility] Calcium Lvl 8.0 8.3-10.2 [place] mg/dL [facility] ID Date Data Source [id number] 06/05/2019 08:08:00 AM EST [facility] Name Value Range Interpretation Description Data Sup porting Code Source(s) Document(s ) Neut Auto 74.8 % 40.0-70.0 [facility] Lymph Auto 14.2 % 22.0-44.0 [facility] [place] Auto 10.5 % 4.0-11.0 [facility] Eos Auto 0.1 % 0.0-8.0 NO [facility] Baso Auto 0.4 % 0.0-3.0 NO [facility] Neut 8.1 1.8-7.7 [place] Absolute x10(3)/[facility] Lymph 1.5 1.0-4.8 NO [place] Absolute x10(3)/[facility] [place] 1.1 0.2-1.2 NO [place] Absolute x10(3)/[facility] Eos Absolute 0.0 0.0-0.9 [place] x10(3)/[facility] Baso 0.0 0.0-0.3 NO [place] Absolute x10(3)/[facility] ID Date Data Source [id number] 06/05/2019 08:08:00 AM EST [facility] Name Value Range Interpretation Description Data Sup porting Code Source(s) Document(s ) WBC 10.8 4.5-11.0 [place] x10(3)/[facility] RBC 3.40 4.50-5.90 [place] x10(6)/[facility] Hgb 8.5 gm/dL 13.5-17.5 [facility] Hct 26.3 % 41.0-53.0 [facility] MCV 77 fL 80-100 [facility] MCH 24.9 pg 26.0-34.0 [facility] MCHC 32.2 31.0-37.0 NO [place] gm/dL [facility] RDW 15.0 % 11.5-14.5 [facility] Platelet 262 150-350 NO [place] x10(3)/[facility] MPV 7.9 fL 7.4-10.4 [facility] ID Date Data Source [id number] 06/04/2019 10:04:00 PM [facility] Name Value Range Interpretation Code Description Data Jackie rce(s) Supporting Document(s ) D-Dimer 491 ng/ml 0-230 [facility] If the result is in the normal range (0 230 ng/ml) DVT/PE is highly unlikely. This D-dimer assay has a negative predic tive value greater than 99% in accuracy. This makes it an exclusionary test. A normal D-dimer does not exclude the possibility of DIC. Repeat D-dimer if patient symptoms persist or worsen.If the result is in the abnormal range (greater than 230 ng/ml) DVT/PE or DIC may be present. ID Date Data Source [id number] 06/04/2019 10:03:00 PM [facility] Name Value Range Interpretation Description Data Sup porting Code Source(s) Document(s ) Lactic 1.0 0.9-2.0 NO [place] Acid Lvl mmol/L [facility] ID Date Data Source [id number] 06/04/2019 09:57:00 PM [facility] Name Value Range Interpretation Code Description Data Jackie rce(s) Supporting Document(s ) INR 1.1 ratio 0.9-1.2 [facility] Indications INRProphylaxis of venous thromo-embolism: Non-hip surgery..... ..........................1.5 - 2.5 Hip surgery................................. ..2.0 - 3.0Deep Vein Thrombosis or Pulmonary Embolism........2.0 - 3.0Prevention of s ystemic embolism in valvular heart disease, tissue prosthetic heart valvesor acute PR.......................................2.0 - 3.5Prevention of embolism in mechanical heartvalves or recurrent systemic embolism.............3.0 - 4.5 PT 13.2 second(s) 9.5-12.5 [facility] ID Date Data Source [id number] 06/04/2019 09:28:00 PM [facility] Name Value Range Interpretation Code Description Data Jackie rce(s) Supporting Document(s ) BNP 202 pg/mL 1-99 [facility] ID Date Data Source [id number] 06/04/2019 09:24:00 PM [facility] Name Value Range Interpretation Description Data Sup porting Code Source(s) Document(s ) Troponin- 0.02 0.02-0.05 NO [facility] I ng/mL [facility] ID Date Data Source [id number] 06/04/2019 09:20:00 PM [facility] Name Value Range Interpretation Description Data Sup porting Code Source(s) Document(s ) Magnesium 2.5 mg/dL 1.6-2.5 NO [facility] ID Date Data Source [id number] 06/04/2019 09:20:00 PM [facility] Name Value Range Interpretation Code Description Data Jackie rce(s) Supporting Document(s ) Lipase Lvl 22 IU/L 10-59 NO [facility] ID Date Data Source [id number] 06/04/2019 09:20:00 PM EST [facility] Added by Discern Rule GLB_ADD_GFR_CMP Name Value Range Interpretation Code Description Data Jackie rce(s) Supporting Document(s ) eGFR-AA 42 >=60 [facility] mL/min/1.[address] The CKD-EPI equation for non- Nini rican individuals is used to calculate the estimated glomerular filtration rate (GF R). To estimate the GFR for Americans, multiply the provided GFR res ult by 1.16. The CKD-EPI equation is validated in individuals 18 years of age or older. It is less accurate in patients with extremes of muscle mass, restrictio n of dietary protein, ingestion of creatine, extra-renal metabolism of creatinine, or treatment with medications that affect renal tubular creatinine secretion.GFR Categor ies in Chronic Kidney Disease (CKD)GFR Category: GFR (mL/min/1.73 m2): Inte rpretation: G1 90 or greater Normal or high*G2 60-89 Mild decrease* G3a 45-59 Mild to moderate [id number] 30-44 Moderate to s evere decreaseG4 15-29 Severe decreaseG5 14 or less Kidney fa ilure eGFR-MEG 35 mL/min/1.73m2 >=60 [facility] The CKD-EPI equation for non- Nini rican individuals is used to calculate the estimated glomerular filtration rate (GF R). To estimate the GFR for Americans, multiply the provided GFR res ult by 1.16. The CKD-EPI equation is validated in individuals 18 years of age or older. It is less accurate in patients with extremes of muscle mass, restrictio n of dietary protein, ingestion of creatine, extra-renal metabolism of creatinine, or treatment with medications that affect renal tubular creatinine secretion.GFR Categor ies in Chronic Kidney Disease (CKD)GFR Category: GFR (mL/min/1.73 m2): Inte rpretation: G1 90 or greater Normal or high*G2 60-89 Mild decrease* G3a 45-59 Mild to moderate [id number] 30-44 Moderate to s evere decreaseG4 15-29 Severe decreaseG5 14 or less Kidney fa ilure ID Date Data Source [id number] 06/04/2019 09:20:00 PM EST [facility] Name Value Range Interpretation Description Data Sup porting Code Source(s) Document(s ) Glucose Lvl 171 65-99 [place] mg/dL [facility] BUN 39.0 7.0-21.0 [place] mg/dL [facility] Creatinine 2.02 0.70-1.2 [place] mg/dL 0 [facility] BUN/Creat 19.3 7.0-29.0 [place] Ratio ratio [facility] Sodium Lvl 136 136-146 [place] mmol/L [facility] Potassium Lvl 4.0 3.5-5.1 [place] mmol/L [facility] Chloride 103 98-109 [place] mmol/L [facility] CO2 22 17-33 [place] mmol/L [facility] AGAP 11 5-15 NO [facility] Calcium Lvl 8.7 8.3-10.2 [place] mg/dL [facility] Total Protein 8.6 6.0-8.3 [place] gm/dL [facility] Albumin Lvl 3.6 3.7-5.3 [place] gm/dL [facility] Glob 5.0 2.0-4.5 [place] gm/dL [facility] A/G Ratio 0.7 1.0-2.2 [place] ratio [facility] Bili Total 0.9 0.4-1.1 [place] mg/dL [facility] Alk Phos 101 IU/L 30-125 NO [facility] AST 18 IU/L 10-35 NO [facility] ALT 16 IU/L 8-40 NO [facility] ID Date Data Source [id number] 06/04/2019 09:20:00 PM EST [facility] Name Value Range Interpretation Description Data Sup porting Code Source(s) Document(s ) Amylase Lvl 40 IU/L 26-121 NO [facility] ID Date Data Source [id number] 06/04/2019 09:07:00 PM EST [facility] Name Value Range Interpretation Description Data Sup porting Code Source(s) Document(s ) Neut Auto 86.9 % 40.0-70.0 [facility] Lymph Auto 7.6 % 22.0-44.0 LO [facility] [place] Auto 5.1 % 4.0-11.0 NO [facility] Eos Auto 0.0 % 0.0-8.0 NO [facility] Baso Auto 0.4 % 0.0-3.0 NO [facility] Neut 12.5 1.8-7.7 [place] Absolute x10(3)/[facility] Lymph 1.1 1.0-4.8 NO [place] Absolute x10(3)/[facility] [place] 0.7 0.2-1.2 NO [place] Absolute x10(3)/[facility] Eos Absolute 0.0 0.0-0.9 NO [place] x10(3)/[facility] Baso 0.1 0.0-0.3 NO [place] Absolute x10(3)/[facility] ID Date Data Source [id number] 06/04/2019 09:07:00 PM EST [facility] Name Value Range Interpretation Description Data Sup porting Code Source(s) Document(s ) WBC 14.4 4.5-11.0 [place] x10(3)/[facility] RBC 4.18 4.50-5.90 LO [place] x10(6)/[facility] Hgb 10.3 13.5-17.5 LO [place] gm/dL [facility] Hct 32.6 % 41.0-53.0 [facility] MCV 78 fL 80-100 [facility] MCH 24.6 pg 26.0-34.0 [facility] MCHC 31.6 31.0-37.0 [facility] RDW 15.4 % 11.5-14.5 [facility] Platelet 303 150-350 NO [place] x10(3)/[facility] MPV 8.2 fL 7.4-10.4 [facility] ID Date Data Source [id number] 06/04/2019 09:01:00 PM EST [facility] Name Value Range Interpretation Description Data Sup porting Code Source(s) Document(s ) Influenza A Negative [facility] Test Methodology is Immunochromatographi c test for the direct qualitative detection of influenza A and B viral agents. Findi ngs must be correlated with clinical history. Negative results of the Rapid Influenza test does not exclude Influenza. Influenza should still be considered in a patient if clinically suspicious. (CDC 2013 recommendations). If Clinical Symptoms p ersist a follow up culture is indicated. Influenza B Ag Negative [facility] Test Methodology is Immunochromatographi c test for the direct qualitative detection of influenza A and B viral agents. Findi ngs must be correlated with clinical history. Negative results of the Rapid Influenza test does not exclude Influenza. Influenza should still be considered in a patient if clinically suspicious. (CDC 2013 recommendations). If Clinical Symptoms p ersist a follow up culture is indicated. Influenza A/B Ag Source NA [facility] [email or web address] ID Date Data Source [id number] 06/04/2019 08:14:00 PM EST [facility] Patient Name: KARSTEN GIBBS EMRN: [id number] General DiagnosticACCESSION EXAM DATE/TIME PROCEDURE ORDERING PROVIDER [id number] 06/04/2019 20:08 EST XR Chest Portable [place] (Verified) DReason For Exam(XR Chest P ortable) Dyspnea SOBReportPROCEDURE: Radiograph Portable Chest 1 ViewCLINICAL HISTORY: Shortness of BreathSCRIPT INFORMATION: sobCOMPARISON: None.TECHNI QUE:Anteroposterior radiographic view of the chest was performed.FINDINGS:The lungs a re clear.There is no evidence for pleural effusion.There is no evidence for pneumo thorax.The heart is unremarkable.Mild thoracic curvature convex to the right i s noted.Mildly elevated right hemidiaphragm.IMPRESSION:No acute diseas e.Thank you for allowing us to participate in the evaluation of this patient. Fin al Dictated: Luca CLINTON, Nacho Salgado 06/04/19 20:13Signed: Luca CLINTON, Ivan Salgado 06/04/19 20:14Transcribed by: REFUGIO Name Value Range Interpretation Code Description Data Jackie rce(s) Supporting Document(s ) ID Date Data Source [id number] 06/04/2019 05:12:00 PM [facility] Business Operations Specialist:JOSEPH LUCY Name Value Range Interpretation Description Data Sup porting Code Source(s) Document(s ) Glucose 144 mg/dL [place] [Mass/volume] Hospital in Capillary blood by Glucometer ID Date Data Source [id number] 02/11/2019 07:45:00 AM [facility] Business Operations Specialist:ORTEGA, YULY Name Value Range Interpretation Description Data Sup porting Code Source(s) Document(s ) Glucose 205 mg/dL [place] [Mass/volume] Hospital in Capillary blood by Glucometer ID Date Data Source [id number] 02/10/2019 11:26:00 AM [facility] Name Value Range Interpretation Description Data Sup porting Code Source(s) Document(s ) GLUCOSE RN Notified [facility] ID Date Data Source [id number] 02/10/2019 05:29:00 AM [facility] ADA RECOMMENDATIONS: NON-DIABETES: 4.0-6.0% CONTROLLED DIABETES: 6.0-8.0% UNCONTROLLED DIABETE S: UP TO 20%RECOMMENDED ADA RESULT FOR THERAPY: HEMOGLOBIN A1C RESULT LESS FRANK N 7%.NOTE: METHOD CHANGE EFFECTIVE 11/06/14. Name Value Range Interpretation Description Data Sup porting Code Source(s) Document(s ) Hemoglobin 7.0 % [place] A1c/Hemoglobin. Hospital total in Blood ID Date Data Source [id number] 02/10/2019 05:29:00 AM [facility] Name Value Range Interpretation Description Data Sup porting Code Source(s) Document(s ) Calcium 8.3 mg/dL [place] [Mass/volume Hospital ] in Serum or Plasma ID Date Data Source [id number] 02/10/2019 05:29:00 AM [facility] UNITS ARE IN ml/min/1.73m2.IF PATIENT IS -BARBADIAN, MULTIPLY REPORTED RESULT BY 1.21. Name Value Range Interpretation Description Data Sup porting Code Source(s) Document(s ) Glomerular > 60 [place] filtration mL/min Hospital rate/1.73 sq M.predicted [Volume Rate/Area] in Serum or Plasma by Creatinine-bas ed formula (MDRD) ID Date Data Source [id number] 02/10/2019 05:29:00 AM [facility] Name Value Range Interpretation Code Description Data Jackie rce(s) Supporting Document(s ) Urea 15.0 [place] nitrogen/Cre Hospital atinine [Mass Ratio] in Serum or Plasma ID Date Data Source [id number] 02/10/2019 05:29:00 AM [facility] Name Value Range Interpretation Description Data Sup porting Code Source(s) Document(s ) Creatinine 1.2 mg/dL [place] [Mass/volume] Hospital in Serum or Plasma ID Date Data Source [id number] 02/10/2019 05:29:00 AM [facility] THIS RESULT HAS BEEN VERIFIED. Name Value Range Interpretation Description Data Sup porting Code Source(s) Document(s ) Urea 18 mg/dL [place] [facility] nitrogen Hospital [Mass/volume ] in Serum or Plasma ID Date Data Source [id number] 02/10/2019 05:29:00 AM [facility] Hospital Name Value Range Interpretation Code Description Data Jackie rce(s) Supporting Document(s ) Anion gap in 9 [place] Serum or Hospital Plasma ID Date Data Source [id number] 02/10/2019 05:29:00 AM [facility] Hospital Name Value Range Interpretation Description Data Sup porting Code Source(s) Document(s ) Carbon 24 mmol/L [place] dioxide, Hospital total [Moles/volu me] in Serum or Plasma ID Date Data Source [id number] 02/10/2019 05:29:00 AM [facility] Name Value Range Interpretation Description Data Sup porting Code Source(s) Document(s ) Chloride 105 [place] [Moles/volum mmol/L Hospital e] in Serum or Plasma ID Date Data Source [id number] 02/10/2019 05:29:00 AM [facility] Name Value Range Interpretation Description Data Sup porting Code Source(s) Document(s ) Potassium 4.4 [place] [Moles/volume mmol/L Hospital ] in Serum or Plasma ID Date Data Source [id number] 02/10/2019 05:29:00 AM [facility] Hospital Name Value Range Interpretation Description Data Sup porting Code Source(s) Document(s ) Sodium 134 mmol/L [place] [Moles/volu Hospital me] in Serum or Plasma ID Date Data Source [id number] 02/10/2019 05:29:00 AM [facility] Name Value Range Interpretation Description Data Sup porting Code Source(s) Document(s ) Glucose 142 mg/dL [place] [Mass/volume Hospital ] in Serum or Plasma ID Date Data Source [id number] 02/10/2019 05:29:00 AM EST [facility] Name Value Range Interpretation Code Description Data Supporting Source(s) Document(s ) NUCLEATED RBCS 0.0 % [place] (AUTO Hospital DIFF%)DIS ID Date Data Source [id number] 02/10/2019 05:29:00 AM [facility] Name Value Range Interpretation Description Data Sup porting Code Source(s) Document(s ) Differential AUTOMATED [facility] cell count [facility] method - Blood ID Date Data Source [id number] 02/10/2019 05:29:00 AM [facility] Name Value Range Interpretation Description Data Sup porting Code Source(s) Document(s ) Immature 0.02 [place] granulocytes 10*3/uL Hospital [#/volume] in Blood by Automated count ID Date Data Source [id number] 02/10/2019 05:29:00 AM [facility] Hospital Name Value Range Interpretation Description Data Sup porting Code Source(s) Document(s ) Basophils 0.03 [place] [#/volume] in 10*3/uL Hospital Blood by Automated count ID Date Data Source [id number] 02/10/2019 05:29:00 AM [facility] Name Value Range Interpretation Description Data Sup porting Code Source(s) Document(s ) Eosinophils 0.35 [place] [#/volume] in 10*3/uL Hospital Blood by Automated count ID Date Data Source [id number] 02/10/2019 05:29:00 AM EST [facility] Name Value Range Interpretation Description Data Sup porting Code Source(s) Document(s ) Monocytes 1.10 [place] [#/volume] in 10*3/uL Hospital Blood by Automated count ID Date Data Source [id number] 02/10/2019 05:29:00 AM [facility] Name Value Range Interpretation Description Data Sup porting Code Source(s) Document(s ) Lymphocytes 3.02 [place] [#/volume] in 10*3/uL Hospital Blood by Automated count ID Date Data Source [id number] 02/10/2019 05:29:00 AM EST [facility] Value Range Interpretation Description Data Sup porting Code Source(s) Document(s ) Neutrophils 3.80 [place] [#/volume] in 10*3/uL [facility] Blood by Automated count ID Date Data Source [id number] 02/10/2019 05:29:00 AM [facility] Value Range Interpretation Description Data Sup porting Code Source(s) Document(s ) Nucleated 0.0 % [place] erythrocytes/10 Hospital 0 leukocytes [Ratio] in Blood by Automated count ID Date Data Source [id number] 02/10/2019 05:29:00 AM [facility] Value Range Interpretation Description Data Sup porting Code Source(s) Document(s ) Immature 0.2 % [place] granulocytes/10 Hospital 0 leukocytes in Blood by Automated count ID Date Data Source [id number] 02/10/2019 05:29:00 AM [facility] Value Range Interpretation Description Data Sup porting Code Source(s) Document(s ) Basophils/100 0.4 % [place] leukocytes in [facility] Blood by Automated count ID Date Data Source [id number] 02/10/2019 05:29:00 AM [facility] Value Range Interpretation Description Data Sup porting Code Source(s) Document(s ) Eosinophils/100 4.2 % [place] leukocytes in [facility] Blood by Automated count ID Date Data Source [id number] 02/10/2019 05:29:00 AM [facility] Value Range Interpretation Description Data Sup porting Code Source(s) Document(s ) Monocytes/100 13.2 % [place] leukocytes in Hospital Blood by Automated count ID Date Data Source [id number] 02/10/2019 05:29:00 AM [facility] Value Range Interpretation Description Data Sup porting Code Source(s) Document(s ) Lymphocytes/10 36.3 % [place] 0 leukocytes Hospital in Blood by Automated count ID Date Data Source [id number] 02/10/2019 05:29:00 AM [facility] Value Range Interpretation Description Data Sup porting Code Source(s) Document(s ) Neutrophils/10 45.7 % [place] 0 leukocytes Hospital in Blood by Automated count ID Date Data Source [id number] 02/10/2019 05:29:00 AM [facility] Value Range Interpretation Description Data Sup porting Code Source(s) Document(s ) Platelet mean 11.7 fL [place] [facility] volume Hospital [Entitic volume] in Blood by Automated count ID Date Data Source [id number] 02/10/2019 05:29:00 AM [facility] Value Range Interpretation Description Data Sup porting Code Source(s) Document(s ) Platelets 196 [place] [#/volume] in 10*3/uL Hospital Blood by Automated count ID Date Data Source [id number] 02/10/2019 05:29:00 AM [facility] Value Range Interpretation Description Data Sup porting Code Source(s) Document(s ) Erythrocyte 17.0 % [place] [facility] distribution Hospital width [Ratio] by Automated count ID Date Data Source [id number] 02/10/2019 05:29:00 AM [facility] Value Range Interpretation Description Data Sup porting Code Source(s) Document(s ) Erythrocyte mean 32.1 [place] corpuscular g/dL Hospital hemoglobin concentration [Mass/volume] by Automated count ID Date Data Source [id number] 02/10/2019 05:29:00 AM [facility] Hospital Name Value Range Interpretation Description Data Sup porting Code Source(s) Document(s ) Erythrocyte 25.0 pg [facility] corpuscular hemoglobin [Entitic mass] by Automated count ID Date Data Source [id number] 02/10/2019 05:29:00 AM [facility] Value Range Interpretation Description Data Sup porting Code Source(s) Document(s ) Erythrocyte 77.9 fL [facility] corpuscular volume [Entitic volume] by Automated count ID Date Data Source [id number] 02/10/2019 05:29:00 AM [facility] Value Range Interpretation Description Data Sup porting Code Source(s) Document(s ) Hematocrit 26.5 % [place] [Volume Hospital Fraction] of Blood by Automated count ID Date Data Source [id number] 02/10/2019 05:29:00 AM [facility] Value Range Interpretation Description Data Sup porting Code Source(s) Document(s ) Hemoglobin 8.5 g/dL [place] [Mass/volume] Hospital in Blood ID Date Data Source [id number] 02/10/2019 05:29:00 AM [facility] Value Range Interpretation Description Data Sup porting Code Source(s) Document(s ) Erythrocytes 3.40 [place] [#/volume] in 10*6/uL Hospital Blood by Automated count ID Date Data Source [id number] 02/10/2019 05:29:00 AM [facility] Value Range Interpretation Description Data Sup porting Code Source(s) Document(s ) Leukocytes 8.3 [place] [#/volume] in 10*3/uL Hospital Blood by Automated count ID Date Data Source [id number] 02/06/2019 [facility] Value Range Interpretation Description Data Sup porting Code Source(s) Document(s ) Aspartate 11 U/L White aminotransferase [place] [Enzymatic Hospital activity/volume] in Serum or Plasma ID Date Data Source [id number] 02/06/2019 08:21:00 AM EDT [facility] Name Value Range Interpretation Description Data Sup porting Code Source(s) Document(s ) Alanine 12 U/L White aminotransferase [place] [Enzymatic Hospital activity/volume] in Serum or Plasma ID Date Data Source [id number] 02/06/2019 08:21:[facility] Name Value Range Interpretation Description Data Sup porting Code Source(s) Document(s ) Alkaline 104 U/L [place] [facility] phosphatase Hospital [Enzymatic activity/volume ] in Serum or Plasma ID Date Data Source [id number] 02/06/2019 08:21:00 AM [facility] Name Value Range Interpretation Description Data Sup porting Code Source(s) Document(s ) Bilirubin.d 0.2 mg/dL [facility] Hospital [Mass/volum e] in Serum or Plasma ID Date Data Source [id number] 02/06/2019 08:21:00 AM [facility] Name Value Range Interpretation Description Data Sup porting Code Source(s) Document(s ) Bilirubin.t 0.5 mg/dL [facility] [Mass/volum e] in Serum or Plasma ID Date Data Source [id number] 02/06/2019 08:21:00 AM [facility] Name Value Range Interpretation Code Description Data Jackie rce(s) Supporting Document(s ) Albumin/Glob 1.1 [place] ulin [Mass Hospital Ratio] in Serum or Plasma ID Date Data Source [id number] 02/06/2019 08:21:00 AM [facility] Name Value Range Interpretation Description Data Sup porting Code Source(s) Document(s ) Albumin 3.0 g/dL [place] [Mass/volume Hospital ] in Serum or Plasma ID Date Data Source [id number] 02/06/2019 08:21:00 AM [facility] Name Value Range Interpretation Description Data Sup porting Code Source(s) Document(s ) Protein 5.7 g/dL [place] [Mass/volume Hospital ] in Serum or Plasma ID Date Data Source [id number] 02/03/2019 07:31:00 AM [facility] Name Value Range Interpretation Description Data Sup porting Code Source(s) Document(s ) URINE OCCASIONAL [place] EPITHELIAL [facility] CELLS ID Date Data Source [id number] 02/03/2019 07:31:00 AM [facility] Name Value Range Interpretation Description Data Sup porting Code Source(s) Document(s ) Erythrocytes 10-20 [place] [#/area] in /[HPF] Hospital Urine sediment by Automated count ID Date Data Source [id number] 02/03/2019 07:31:00 AM [facility] Value Range Interpretation Description Data Sup porting Code Source(s) Document(s ) Leukocytes 3-5 [place] [#/area] in /[HPF] Hospital Urine sediment by Automated count ID Date Data Source [id number] 02/03/2019 07:31:00 AM [facility] Value Range Interpretation Description Data Sup porting Code Source(s) Document(s ) Leukocyte NEGATIVE [facility] [Presence] in Urine by Test strip ID Date Data Source [id number] 02/03/2019 07:31:00 AM [facility] Name Value Range Interpretation Description Data Sup porting Code Source(s) Document(s ) URINE NEGATIVE [place] NITRITES Hospital ID Date Data Source [id number] 02/03/2019 07:31[facility] Name Value Range Interpretation Description Data Sup porting Code Source(s) Document(s ) Erythrocytes TRACE [place] [#/volume] in Hospital Urine by Test strip ID Date Data Source [id number] 02/03/2019 07:31:[facility] Name Value Range Interpretation Code Description Data Jackie rce(s) Supporting Document(s ) Bilirubin. NEGATIVE [facility] [facility] total Hospital [Presence] in Urine by Test strip ID Date Data Source [id number] 02/03/2019 07:31:00 AM [facility] Name Value Range Interpretation Description Data Sup porting Code Source(s) Document(s ) Urobilinogen 0.2 [place] [Units/volume] mg/dL Hospital in Urine by Test strip ID Date Data Source [id number] 02/03/2019 07:31:00 AM [facility] Name Value Range Interpretation Code Description Data Jackie rce(s) Supporting Document(s ) Ketones TRACE [place] [Mass/volume Hospital ] in Urine by Test strip ID Date Data Source [id number] 02/03/2019 07:31:[facility] Name Value Range Interpretation Code Description Data Jackie rce(s) Supporting Document(s ) Glucose 1+ [place] [Mass/volume Hospital ] in Urine by Test strip ID Date Data Source [id number] 02/03/2019 07:31:00 AM EDT [facility] Name Value Range Interpretation Code Description Data Jackie rce(s) Supporting Document(s ) Protein 4+ [place] [Presence] Hospital in Urine by Test strip ID Date Data Source [id number] 02/03/2019 07:31:[facility] Name Value Range Interpretation Code Description Data Jackie rce(s) Supporting Document(s ) pH of Urine 6.5 [place] by Test Hospital strip ID Date Data Source [id number] 02/03/2019 07:31:00 AM [facility] Name Value Range Interpretation Code Description Data Supporting Source(s) Document(s ) Specific 1.022 [place] gravity of Hospital Urine by Test strip ID Date Data Source [id number] 02/03/2019 07:31:00 [facility] Name Value Range Interpretation Description Data Sup porting Code Source(s) Document(s ) Clarity in Urine CLEAR [place] by Refractometry [facility] automated ID Date Data Source [id number] 02/03/2019 07:31:00 AM [facility] Name Value Range Interpretation Code Description Data Jackie rce(s) Supporting Document(s ) Color of YELLOW [place] Urine Hospital ID Date Data Source [id number] 01/29/2019 07:20:00 PM [facility] TEST PERFORMED BY [facility] [facility]ENS[facility] CHEMILUMINESCENCE METHOD. Name Value Range Interpretation Description Data Sup porting Code Source(s) Document(s ) Troponin < 0.01 [place] I.cardiac ng/mL Hospital [Mass/volume ] in Serum or Plasma ID Date Data Source [id number] 01/29/2019 07:20:00 PM [facility] Name Value Range Interpretation Code Description Data Jackie rce(s) Supporting Document(s ) Lipase 25 U/L [place] [Enzymatic Hospital activity/vo lume] in Serum or Plasma ID Date Data Source [id number] 01/20/2019 08:52:00 AM [facility] Business Operations Specialist:PIEDADMAKSIM Whiting Name Value Range Interpretation Description Data Sup porting Code Source(s) Document(s ) Glucose 104 mg/dL [place] [Mass/volume] Hospital in Capillary blood by Glucometer ID Date Data Source [id number] 01/15/2019 08:42:00 AM [facility] Value Range Interpretation Description Data Sup porting Code Source(s) Document(s ) Platelet mean 9.5 fL [facility] [Entitic volume] in Blood by Automated count ID Date Data Source [id number] 01/15/2019 08:42:00 AM [facility] Value Range Interpretation Description Data Sup porting Code Source(s) Document(s ) Platelets 386 [place] [#/volume] in 10*3/uL Hospital Blood by Automated count ID Date Data Source [id number] 01/15/2019 08:42:00 AM [facility] Value Range Interpretation Description Data Sup porting Code Source(s) Document(s ) Erythrocyte 18.7 % [facility] width [Ratio] by Automated count ID Date Data Source [id number] 01/15/2019 08:42:00 AM [facility] Value Range Interpretation Description Data Sup porting Code Source(s) Document(s ) Erythrocyte mean 32.7 [place] corpuscular g/dL Hospital hemoglobin concentration [Mass/volume] by Automated count ID Date Data Source [id number] 01/15/2019 08:42:00 AM [facility] Value Range Interpretation Description Data Sup porting Code Source(s) Document(s ) Erythrocyte 24.8 pg [facility] corpuscular hemoglobin [Entitic mass] by Automated count ID Date Data Source [id number] 01/15/2019 08:42:00 AM EDT [facility] Name Value Range Interpretation Description Data Sup porting Code Source(s) Document(s ) Erythrocyte 76.1 fL [place] mean Hospital corpuscular volume [Entitic volume] by Automated count ID Date Data Source [id number] 01/15/2019 08:42:00 AM EDT [facility] Value Range Interpretation Description Data Sup porting Code Source(s) Document(s ) Hematocrit 24.5 % [place] [Volume Hospital Fraction] of Blood by Automated count ID Date Data Source [id number] 01/15/2019 08:42:00 AM EDT [facility] Value Range Interpretation Description Data Sup porting Code Source(s) Document(s ) Hemoglobin 8.0 g/dL [place] [Mass/volume] Hospital in Blood ID Date Data Source [id number] 01/15/2019 08:42:00 AM EDT [facility] Name Value Range Interpretation Description Data Sup porting Code Source(s) Document(s ) Erythrocytes 3.22 [place] [#/volume] in 10*6/uL Hospital Blood by Automated count ID Date Data Source [id number] 01/15/2019 08:42:00 AM EDT [facility] Value Range Interpretation Description Data Sup porting Code Source(s) Document(s ) Leukocytes 6.6 [place] [#/volume] in 10*3/uL Hospital Blood by Automated count ID Date Data Source [id number] 01/15/2019 07:42:00 AM EDT [facility] Value Range Interpretation Description Data Sup porting Code Source(s) Document(s ) Calcium 8.5 mg/dL [place] [Mass/volume Hospital ] in Serum or Plasma ID Date Data Source [id number] 01/15/2019 07:42:00 AM EDT [facility] Name Value Range Interpretation Code Description Data Jackie rce(s) Supporting Document(s ) Urea 13.6 [place] nitrogen/Cre Hospital atinine [Mass Ratio] in Serum or Plasma ID Date Data Source [id number] 01/15/2019 07:42:00 AM EDT [facility] Name Value Range Interpretation Description Data Sup porting Code Source(s) Document(s ) Creatinine 1.1 mg/dL [place] [Mass/volume] Hospital in Serum or Plasma ID Date Data Source [id number] [facility] Interpretation Description Data Sup porting Code Source(s) Document(s ) Urea 15 mg/dL [facility] Hospital [Mass/volume ] in Serum or Plasma ID Date Data Source [id number] 01/15/2019 07:42:00 AM EDT [facility] Value Range Interpretation Code Description Data Jackie rce(s) Supporting Document(s ) Anion gap in 10 [place] Serum or [facility] Plasma ID Date Data Source [id number] 01/15/2019 07:42:00 AM EDT [facility] Value Range Interpretation Description Data Sup porting Code Source(s) Document(s ) Carbon 28 mmol/L [place] dioxide, Hospital total [Moles/volu me] in Serum or Plasma ID Date Data Source [id number] 01/15/2019 [facility]42[facility] Range Interpretation Description Data Sup porting Code Source(s) Document(s ) Chloride 102 [place] [Moles/volum mmol/L Hospital e] in Serum or Plasma ID Date Data Source [id number] 01/15/2019 07:42:00 AM EDT [facility] Value Range Interpretation Description Data Sup porting Code Source(s) Document(s ) Potassium 3.9 [place] [Moles/volume mmol/L Hospital ] in Serum or Plasma ID Date Data Source [id number] 01/15/2019 07:42:00 AM [facility] Name Value Range Interpretation Description Data Sup porting Code Source(s) Document(s ) Sodium 136 mmol/L [place] [Moles/volu Hospital ca] in Serum or Plasma ID Date Data Source [id number] 01/15/2019 07:42:00 AM [facility] Name Value Range Interpretation Description Data Sup porting Code Source(s) Document(s ) Glucose 124 mg/dL [place] [Mass/volume Hospital ] in Serum or Plasma ID Date Data Source [id number] 01/15/2019 02:08:00 AM [facility] NOTE: NEW REFERENCE RANGE, EFFECTIVE . Name Value Range Interpretation Description Data Sup porting Code Source(s) Document(s ) Vancomycin 12.8 [place] [Mass/volume] ug/mL Hospital in Serum or Plasma --trough ID Date Data Source [id number] 01/15/2019 02:08:00 AM [facility] NOTE: NEW REFERENCE RANGE, EFFECTIVE . Name Value Range Interpretation Description Data Sup porting Code Source(s) Document(s ) Vancomycin 12.8 [place] [Mass/volume] ug/mL Hospital in Serum or Plasma --trough ID Date Data Source [id number] 01/11/2019 10:40:00 AM [facility] Name Value Range Interpretation Description Data Sup porting Code Source(s) Document(s ) [facility] VOLUME ID Date Data Source [id number] 01/11/2019 10:40:00 AM EDT [facility] Name Value Range Interpretation Description Data Sup porting Code Source(s) Document(s ) MEAN 80.2 fL [facility] VOLUME ID Date Data Source [id number] 01/10/2019 07:19:00 AM EDT [facility] Name Value Range Interpretation Description Data Sup porting Code Source(s) Document(s ) Aspartate 13 U/L White aminotransferase [place] [Enzymatic Hospital activity/volume] in Serum or Plasma ID Date Data Source [id number] 01/10/2019 [facility]19[facility] Value Range Interpretation Description Data Sup porting Code Source(s) Document(s ) Alanine 16 U/L [facility] aminotransferase [place] [Enzymatic Hospital activity/volume] in Serum or Plasma ID Date Data Source [id number] 01/10[facility]2019 [facility] Interpretation Description Data Sup porting Code Source(s) Document(s ) Alkaline 142 U/L [place] phosphatase Hospital [Enzymatic activity/volume ] in Serum or Plasma ID Date Data Source [id number] 01/10/2019 07:19:00 AM [facility] Value Range Interpretation Description Data Sup porting Code Source(s) Document(s ) Bilirubin.t 0.3 mg/dL [facility] [Mass/volum e] in Serum or Plasma ID Date Data Source [id number] 01/10/2019 07:19:00 AM [facility] Name Value Range Interpretation Code Description Data Jackie rce(s) Supporting Document(s ) Albumin/Glob 0.9 [place] ulin [Mass Hospital Ratio] in Serum or Plasma ID Date Data Source [id number] 01/10/2019 [facility] Range Interpretation Description Data Sup porting Code Source(s) Document(s ) Albumin 3.3 g/dL [place] [Mass/volume Hospital ] in Serum or Plasma ID Date Data Source [id number] 01/10/2019 07:19:00 AM EDT [facility] Name Value Range Interpretation Description Data Sup porting Code Source(s) Document(s ) Protein 6.9 g/dL [place] [Mass/volume Hospital ] in Serum or Plasma ID Date Data Source [id number] 01/10/2019 07:19:00 AM EDT [facility] Name Value Range Interpretation Code Description Data Supporting Source(s) Document(s ) NUCLEATED RBCS 0.0 % [place] (AUTO Hospital DIFF%)DIS ID Date Data Source [id number] 01/10/2019 07:19:00 AM EDT [facility] Value Range Interpretation Description Data Sup porting Code Source(s) Document(s ) Differential AUTOMATED [place] cell count Hospital method - Blood ID Date Data Source [id number] 01/10/2019 [facility] Range Interpretation Description Data Sup porting Code Source(s) Document(s ) Immature 0.02 [place] granulocytes 10*3/uL Hospital [#/volume] in Blood by Automated count ID Date Data Source [id number] 01/10/2019 07:19:00 AM EDT [facility] Name Value Range Interpretation Description Data Sup porting Code Source(s) Document(s ) Basophils 0.03 [place] [#/volume] in 10*3/uL Hospital Blood by Automated count ID Date Data Source [id number] 01/10/2019 07:19:00 AM EDT [facility] Name Value Range Interpretation Description Data Sup porting Code Source(s) Document(s ) Eosinophils 0.20 [place] [#/volume] in 10*3/uL Hospital Blood by Automated count ID Date Data Source [id number] 01/10/2019 07:19:00 AM EDT [facility] Value Range Interpretation Description Data Sup porting Code Source(s) Document(s ) Monocytes 1.19 [place] [#/volume] in 10*3/uL Hospital Blood by Automated count ID Date Data Source [id number] 01/10/2019 07:19:00 AM EDT [facility] Value Range Interpretation Description Data Sup porting Code Source(s) Document(s ) Lymphocytes 2.21 [place] [#/volume] in 10*3/uL Hospital Blood by Automated count ID Date Data Source [id number] 01/10/2019 07:19:00 AM EDT [facility] Value Range Interpretation Description Data Sup porting Code Source(s) Document(s ) Neutrophils 5.70 [place] [#/volume] in 10*3/uL [facility] Blood by Automated count ID Date Data Source [id number] 01/10/2019 07:19:00 AM EDT [facility] Value Range Interpretation Description Data Sup porting Code Source(s) Document(s ) Nucleated 0.0 % [place] erythrocytes/10 Hospital 0 leukocytes [Ratio] in Blood by Automated count ID Date Data Source [id number] 01/10/2019 07:19:00 AM EDT [facility] Value Range Interpretation Description Data Sup porting Code Source(s) Document(s ) Immature 0.2 % [place] granulocytes/10 Hospital 0 leukocytes in Blood by Automated count ID Date Data Source [id number] 01/10/2019 07:19:00 AM EDT [facility] Value Range Interpretation Description Data Sup porting Code Source(s) Document(s ) Basophils/100 0.3 % [place] leukocytes in Hospital Blood by Automated count ID Date Data Source [id number] 01/10/2019 07:19:00 AM EDT [facility] Name Value Range Interpretation Description Data Sup porting Code Source(s) Document(s ) Eosinophils/100 2.1 % [place] leukocytes in Hospital Blood by Automated count ID Date Data Source [id number] 01/10/2019 07:19:00 AM EDT [facility] Name Value Range Interpretation Description Data Sup porting Code Source(s) Document(s ) Monocytes/100 12.7 % [place] leukocytes in Hospital Blood by Automated count ID Date Data Source [id number] 01/10/2019 07:19:00 AM EDT [facility] Value Range Interpretation Description Data Sup porting Code Source(s) Document(s ) Lymphocytes/10 23.6 % [place] 0 leukocytes Hospital in Blood by Automated count ID Date Data Source [id number] 01/10/2019 07:19:00 AM EDT [facility] Value Range Interpretation Description Data Sup porting Code Source(s) Document(s ) Neutrophils/10 61.1 % [place] 0 leukocytes Hospital in Blood by Automated count ID Date Data Source [id number] 01/08/2019 12:12:00 PM EDT [facility] Name Value Range Interpretation Description Data Sup porting Code Source(s) Document(s ) GLUCOSE RN Notified [facility] Hospital ID Date Data Source [id number] 01/08/2019 11:19:00 AM EDT [facility] Value Range Interpretation Description Data Sup porting Code Source(s) Document(s ) Bacteria No growth [place] identified in Hospital Blood by Culture ID Date Data Source [id number] 01/08/2019 11:19:00 AM EDT [facility] Name Value Range Interpretation Description Data Sup porting Code Source(s) Document(s ) Bacteria No growth [place] identified in Hospital Blood by Culture ID Date Data Source [id number] 12/31/2018 07:57:[facility] Value Range Interpretation Description Data Sup porting Code Source(s) Document(s ) GLUCOSE To Be [place] COMMENT2 Repeated Hospital ID Date Data Source [id number] 12/31/2018 07:57:[facility] Name Value Range Interpretation Description Data Sup porting Code Source(s) Document(s ) GLUCOSE To Be [place] COMMENT2 Repeated Hospital ID Date Data Source [id number] 12/30/2018 05:59:00 AM [facility] Value Range Interpretation Description Data Sup porting Code Source(s) Document(s ) Gamma glutamyl 80 U/L [facility] [Enzymatic activity/volume ] in Serum or Plasma ID Date Data Source [id number] 12/30/2018 05:59:00 AM [facility] Value Range Interpretation Description Data Sup porting Code Source(s) Document(s ) Gamma glutamyl 80 U/L [facility] Hospital [Enzymatic activity/volume ] in Serum or Plasma ID Date Data Source [id number] 12/29/2018 02:45:00 AM [facility] Name Value Range Interpretation Description Data Sup porting Code Source(s) Document(s ) Lactate 1.1 [place] [Moles/volum mmol/L Hospital e] in Serum or Plasma ID Date Data Source [id number] 12/29/2018 02:45:00 AM [facility] Name Value Range Interpretation Description Data Sup porting Code Source(s) Document(s ) Lactate 1.1 [place] [Moles/volum mmol/L Hospital e] in Serum or Plasma ID Date Data Source [id number] 12/28/2018 10:45:00 PM EDT [facility] Name Value Range Interpretation Description Data Sup porting Code Source(s) Document(s ) Natriuretic 63.2 [place] peptide B pg/mL Hospital [Mass/volume] in Serum or Plasma ID Date Data Source [id number] 12/28/2018 10:45:00 PM EDT [facility] THERAPEUTIC RANGE FOR STANDARD ORALANTIC OAGULANT THERAPY: 2.0-3.0THERAPEUTIC RANGE FOR HIGH DOSE ORALANTICOAGULANT THERAPY (MECHANICAL HEARTVALVE REPLACEMENT): 2.5-3.5 Name Value Range Interpretation Description Data Sup porting Code Source(s) Document(s ) INR in Platelet 1.2 [place] poor plasma by [facility] Coagulation assay ID Date Data Source [id number] 12/28/2018 10:45:00 PM [facility] Name Value Range Interpretation Description Data Sup porting Code Source(s) Document(s ) PT panel - 13.0 s [place] Platelet poor [facility] plasma by Coagulation assay ID Date Data Source [id number] 12/28/2018 10:45:00 PM [facility] Value Range Interpretation Description Data Sup porting Code Source(s) Document(s ) Natriuretic 63.2 [place] peptide B pg/mL Hospital [Mass/volume] in Serum or Plasma ID Date Data Source [id number] 12/28/2018 10:45:00 PM [facility] THERAPEUTIC RANGE FOR STANDARD ORALANTIC OAGULANT THERAPY: 2.0-3.0THERAPEUTIC RANGE FOR HIGH DOSE ORALANTICOAGULANT THERAPY (MECHANICAL HEARTVALVE REPLACEMENT): 2.5-3.5 Name Value Range Interpretation Description Data Sup porting Code Source(s) Document(s ) INR in Platelet 1.2 [place] poor plasma by Hospital Coagulation assay ID Date Data Source [id number] 12/28/2018 10:45:00 PM [facility] Name Value Range Interpretation Description Data Sup porting Code Source(s) Document(s ) PT panel - 13.0 s [place] Platelet poor [facility] plasma by Coagulation assay ID Date Data Source [id number] 12/28/2018 12:01:00 AM [facility] TEST PERFORMED BY [employer] [facility] UL[facility] SENSITIVE [facility] CHEMILUMINESCENCE METHOD. Name Value Range Interpretation Description Data Sup porting Code Source(s) Document(s ) Troponin 0.01 [place] I.cardiac ng/mL Hospital [Mass/volume ] in Serum or Plasma ID Date Data Source [id number] 12/27/2018 08:35:00 AM [facility] Business Operations Specialist:DAMARI INGRAM Name Value Range Interpretation Description Data Sup porting Code Source(s) Document(s ) Glucose 238 mg/dL [place] [Mass/volume] [facility] in Capillary blood by Glucometer ID Date Data Source [id number] 12/26/2018 08:30:00 AM [facility] THERE ARE NO REFERENCE RANGES FOR RANDOM VANCOMYCIN LEVELS. Name Value Range Interpretation Description Data Sup porting Code Source(s) Document(s ) Vancomycin 11.9 [place] [Mass/volume] ug/mL Hospital in Serum or Plasma --trough ID Date Data Source [id number] 12/26/2018 08:30:00 AM [facility] Name Value Range Interpretation Description Data Sup porting Code Source(s) Document(s ) Calcium 8.7 mg/dL [place] [Mass/volume Hospital ] in Serum or Plasma ID Date Data Source [id number] 12/26/2018 08:30:00 AM [facility] Name Value Range Interpretation Code Description Data Jackie rce(s) Supporting Document(s ) Urea 16.0 [place] nitrogen/Cre Hospital atinine [Mass Ratio] in Serum or Plasma ID Date Data Source [id number] 12/26/2018 08:30:00 AM EDT [facility] Name Value Range Interpretation Description Data Sup porting Code Source(s) Document(s ) Creatinine 1.0 mg/dL [place] [Mass/volume] Hospital in Serum or Plasma ID Date Data Source [id number] 12/26/2018 08:30:00 AM EDT [facility] Value Range Interpretation Description Data Sup porting Code Source(s) Document(s ) Urea 16 mg/dL [place] nitrogen Hospital [Mass/volume ] in Serum or Plasma ID Date Data Source [id number] 12/26/2018 08:30:00 AM EDT [facility] Value Range Interpretation Code Description Data Jackie rce(s) Supporting Document(s ) Anion gap in 10 [place] Serum or [facility] Plasma ID Date Data Source [id number] 12/26/2018 08:30:00 AM EDT [facility] Value Range Interpretation Description Data Sup porting Code Source(s) Document(s ) Carbon 27 mmol/L [place] dioxide, Hospital total [Moles/volu me] in Serum or Plasma ID Date Data Source [id number] 12/26/2018 08:30:00 AM EDT [facility] Value Range Interpretation Description Data Sup porting Code Source(s) Document(s ) Chloride 102 [place] [Moles/volum mmol/L Hospital e] in Serum or Plasma ID Date Data Source [id number] 12/26/2018 08:30:00 AM EDT [facility] Value Range Interpretation Description Data Sup porting Code Source(s) Document(s ) Potassium 4.1 [place] [Moles/volume mmol/L Hospital ] in Serum or Plasma ID Date Data Source [id number] 12/26[facility] Interpretation Description Data Sup porting Code Source(s) Document(s ) Sodium 135 mmol/L [place] [Moles/volu Hospital ca] in Serum or Plasma ID Date Data Source [id number] 12/26/2018 08:30:00 AM EDT [facility] Value Range Interpretation Description Data Sup porting Code Source(s) Document(s ) Glucose 156 mg/dL [place] [Mass/volume Hospital ] in Serum or Plasma ID Date Data Source [id number] 12/26/2018 [facility] Range Interpretation Description Data Sup porting Code Source(s) Document(s ) Platelet mean 9.4 fL [facility] [Entitic volume] in Blood by Automated count ID Date Data Source [id number] 12/26/2018 08:30:00 AM [facility] Value Range Interpretation Description Data Sup porting Code Source(s) Document(s ) Platelets 461 [place] [#/volume] in 10*3/uL [facility] Blood by Automated count ID Date Data Source [id number] 12/26/2018 [facility] Range Interpretation Description Data Sup porting Code Source(s) Document(s ) Erythrocyte 19.8 % [place] distribution Hospital width [Ratio] by Automated count ID Date Data Source [id number] 12/26/2018 [facility] Range Interpretation Description Data Sup porting Code Source(s) Document(s ) Erythrocyte mean 31.2 [place] corpuscular g/dL Hospital hemoglobin concentration [Mass/volume] by Automated count ID Date Data Source [id number] 12/26/2018 08:30:00 AM [facility] Name Value Range Interpretation Description Data Sup porting Code Source(s) Document(s ) Erythrocyte 24.1 pg [facility] corpuscular hemoglobin [Entitic mass] by Automated count ID Date Data Source [id number] 12/26/2018 08:30:00 AM [facility] Name Value Range Interpretation Description Data Sup porting Code Source(s) Document(s ) Erythrocyte 77.3 fL [facility] Hospital corpuscular volume [Entitic volume] by Automated count ID Date Data Source [id number] 12/26/2018 08:30:00 AM [facility] Value Range Interpretation Description Data Sup porting Code Source(s) Document(s ) Hematocrit 23.1 % [place] [Volume Hospital Fraction] of Blood by Automated count ID Date Data Source [id number] 12/26/2018 08:30:00 AM [facility] NOTIFICATION AND READ BACK OF CRITICAL R ESULTS TO KENDELL HAMMER RN 4E AT 0942 ON 12/26/18 BY Pat Rapp. Name Value Range Interpretation Description Data Sup porting Code Source(s) Document(s ) Hemoglobin 7.2 g/dL [place] [Mass/volume] Hospital in Blood ID Date Data Source [id number] 12/26/2018 08:30:00 AM [facility] Name Value Range Interpretation Description Data Sup porting Code Source(s) Document(s ) Erythrocytes 2.99 [place] [#/volume] in 10*6/uL Hospital Blood by Automated count ID Date Data Source [id number] 12/26/2018 08:30:00 AM EDT [facility] Name Value Range Interpretation Description Data Sup porting Code Source(s) Document(s ) Leukocytes 8.9 [place] [#/volume] in 10*3/uL Hospital Blood by Automated count ID Date Data Source [id number] 12/26/2018 08:30:00 AM [facility] THERE ARE NO REFERENCE RANGES FOR RANDOM VANCOMYCIN LEVELS. Name Value Range Interpretation Description Data Sup porting Code Source(s) Document(s ) Vancomycin 11.9 [place] [Mass/volume] ug/mL Hospital in Serum or Plasma --trough ID Date Data Source [id number] 12/22/2018 10:54:00 PM [facility] NOTIFICATION AND READ BACK OF CRITICAL R ESULTS TO CARLA BOWERS RN-4E AT 2350 ON 12/22/18 BY Radha Page.NOTE: NEW RE FERENCE RANGE, EFFECTIVE 07/26/16.REPORTED CRITICAL VALUES SHOULD BE INTERPRETED WI THIN CLINICAL CONTEXT. Name Value Range Interpretation Description Data Sup porting Code Source(s) Document(s ) Vancomycin 23.7 [place] [Mass/volume] ug/mL Hospital in Serum or Plasma --trough ID Date Data Source [id number] 12/22/2018 06:11:00 AM [facility] Name Value Range Interpretation Code Description Data Jackie rce(s) Supporting Document(s ) URINE 0-5 [facility] CASTS ID Date Data Source [id number] 12/22/2018 06:11:00 AM [facility] Name Value Range Interpretation Description Data Sup porting Code Source(s) Document(s ) Erythrocytes 5-10 [place] [#/area] in /[HPF] Hospital Urine sediment by Automated count ID Date Data Source [id number] 12/22/2018 06:11:00 AM [facility] Name Value Range Interpretation Description Data Sup porting Code Source(s) Document(s ) Leukocytes 0-3 [place] [#/area] in /[HPF] Hospital Urine sediment by Automated count ID Date Data Source [id number] 12/22/2018 06:11:00 AM EDT [facility] Name Value Range Interpretation Description Data Sup porting Code Source(s) Document(s ) Leukocyte NEGATIVE [place] [facility] esterase Hospital [Presence] in Urine by Test strip ID Date Data Source [id number] 12/22/2018 06:11:00 AM EDT [facility] Name Value Range Interpretation Description Data Sup porting Code Source(s) Document(s ) URINE NEGATIVE [place] NITRITES Hospital ID Date Data Source [id number] 12/22/2018 06:11:00 AM EDT [facility] Value Range Interpretation Description Data Sup porting Code Source(s) Document(s ) Erythrocytes TRACE [place] [#/volume] in Hospital Urine by Test strip ID Date Data Source [id number] 12/22/[facility] Value [facility] Interpretation Code Description Data Jackie rce(s) Supporting Document(s ) Bilirubin. NEGATIVE [facility] [facility] total Hospital [Presence] in Urine by Test strip ID Date Data Source [id number] 12/22/2018 [facility]11[facility] Name Value Range Interpretation Description Data Sup porting Code Source(s) Document(s ) Urobilinogen 0.2 [place] [Units/volume] mg/dL Hospital in Urine by Test strip ID Date Data Source [id number] 12/22/2018 [facility]11[facility] Name Value Range Interpretation Description Data Sup porting Code Source(s) Document(s ) Ketones NEGATIVE [place] [Mass/volume Hospital ] in Urine by Test strip ID Date Data Source [id number] 12/22/2018 06:11:00 AM EDT [facility] Name Value Range Interpretation Code Description Data Jackie rce(s) Supporting Document(s ) Glucose TRACE [place] [Mass/volume Hospital ] in Urine by Test strip ID Date Data Source [id number] 12/22/2018 06:11:00 AM EDT [facility] Name Value Range Interpretation Code Description Data Jackie rce(s) Supporting Document(s ) Protein 2+ [facility] [Presence] Hospital in Urine by Test strip ID Date Data Source [id number] 12/22/2018 06:11:00 AM EDT [facility] Name Value Range Interpretation Code Description Data Jackie rce(s) Supporting Document(s ) pH of Urine 6.5 [place] by Test Hospital strip ID Date Data Source [id number] 12/22/2018 06:11:00 AM EDT [facility] Name Value Range Interpretation Code Description Data Supporting Source(s) Document(s ) Specific 1.012 [place] [facility] gravity of Hospital Urine by Test strip ID Date Data Source [id number] 12/22/2018 06:11:00 AM EDT [facility] Name Value Range Interpretation Description Data Sup porting Code Source(s) Document(s ) Clarity in Urine CLEAR [place] by Refractometry Hospital automated ID Date Data Source [id number] 12/22/2018 06:11:00 AM EDT [facility] Name Value Range Interpretation Code Description Data Jackie rce(s) Supporting Document(s ) Color of YELLOW [facility] Urine Hospital ID Date Data Source [id number] 12/22/2018 06:11:00 AM EDT [facility] Name Value Range Interpretation Code Description Data Jackie rce(s) Supporting Document(s ) URINE 0-5 [facility] HYALINE Hospital CASTS ID Date Data Source [id number] 12/22/2018 06:11:00 AM EDT [facility] Name Value Range Interpretation Description Data Sup porting Code Source(s) Document(s ) Erythrocytes 5-10 [place] [#/area] in /[HPF] Hospital Urine sediment by Automated count ID Date Data Source [id number] 12/22/2018 06:11:00 AM EDT [facility] Name Value Range Interpretation Description Data Sup porting Code Source(s) Document(s ) Leukocytes 0-3 [place] [#/area] in /[HPF] Hospital Urine sediment by Automated count ID Date Data Source [id number] 12/22/2018 06:11:00 AM EDT [facility] Name Value Range Interpretation Description Data Sup porting Code Source(s) Document(s ) Leukocyte NEGATIVE [facility] esterase Hospital [Presence] in Urine by Test strip ID Date Data Source [id number] 12/22/2018 06:11:00 AM EDT [facility] Name Value Range Interpretation Description Data Sup porting Code Source(s) Document(s ) URINE NEGATIVE [facility] [facility] NITRITES Hospital ID Date Data Source [id number] 12/22/2018 06:11:00 AM EDT [facility] Name Value Range Interpretation Description Data Sup porting Code Source(s) Document(s ) Erythrocytes TRACE [place] [#/volume] in Hospital Urine by Test strip ID Date Data Source [id number] 12/22/2018 06:11:00 AM EDT [facility] Name Value Range Interpretation Code Description Data Jackie rce(s) Supporting Document(s ) Bilirubin. NEGATIVE [facility] total [facility] [Presence] in Urine by Test strip ID Date Data Source [id number] 12/22/2018 06:11:00 AM EDT [facility] Name Value Range Interpretation Description Data Sup porting Code Source(s) Document(s ) Urobilinogen 0.2 [place] [Units/volume] mg/dL Hospital in Urine by Test strip ID Date Data Source [id number] 12/22/2018 06:11:00 AM EDT [facility] Name Value Range Interpretation Description Data Sup porting Code Source(s) Document(s ) Ketones NEGATIVE [place] [Mass/volume Hospital ] in Urine by Test strip ID Date Data Source [id number] 12/22/2018 06:11:00 AM EDT [facility] Name Value Range Interpretation Code Description Data Jackie rce(s) Supporting Document(s ) Glucose TRACE [place] [Mass/volume Hospital ] in Urine by Test strip ID Date Data Source [id number] 12/22/2018 06:11:00 AM EDT [facility] Name Value Range Interpretation Code Description Data Jackie rce(s) Supporting Document(s ) Protein 2+ [place] [Presence] Hospital in Urine by Test strip ID Date Data Source [id number] 12/22/2018 06:11:00 AM EDT [facility] Value Range Interpretation Code Description Data Jackie rce(s) Supporting Document(s ) pH of Urine 6.5 [place] by Test Hospital strip ID Date Data Source [id number] 12/22/2018 06:11:00 AM EDT [facility] Name Value Range Interpretation Code Description Data Supporting Source(s) Document(s ) Specific 1.012 [place] gravity of Hospital Urine by Test strip ID Date Data Source [id number] 12/22/2018 06:11:00 AM EDT [facility] Name Value Range Interpretation Description Data Sup porting Code Source(s) Document(s ) Clarity in Urine CLEAR [place] by [facility] automated ID Date Data Source [id number] 12/22/2018 06:11:00 AM EDT [facility] Name Value Range Interpretation Code Description Data Jackie rce(s) Supporting Document(s ) Color of YELLOW [facility] Urine Hospital ID Date Data Source [id number] 12/22/2018 02:44:00 AM EDT [facility] Name Value Range Interpretation Code Description Data Supporting Source(s) Document(s ) NUCLEATED RBCS 0.0 % [place] (AUTO Hospital DIFF%)DIS ID Date Data Source [id number] 12/22/2018 02:44:00 AM EDT [facility] Value Range Interpretation Description Data Sup porting Code Source(s) Document(s ) Differential AUTOMATED [facility] [facility] cell count Hospital method - Blood ID Date Data Source [id number] 12/22/2018 02:44:00 AM EDT [facility] Value Range Interpretation Description Data Sup porting Code Source(s) Document(s ) Immature 0.05 [place] granulocytes 10*3/uL Hospital [#/volume] in Blood by Automated count ID Date Data Source [id number] 12/22/2018 02:44:00 AM EDT [facility] Value Range Interpretation Description Data Sup porting Code Source(s) Document(s ) Basophils 0.04 [place] [#/volume] in 10*3/uL Hospital Blood by Automated count ID Date Data Source [id number] 12/22/2018 02:44:00 AM EDT [facility] Name Value Range Interpretation Description Data Sup porting Code Source(s) Document(s ) Eosinophils 0.20 [place] [#/volume] in 10*3/uL Hospital Blood by Automated count ID Date Data Source [id number] 12/22/2018 02:44:00 AM EDT [facility] Value Range Interpretation Description Data Sup porting Code Source(s) Document(s ) Monocytes 1.47 [place] [#/volume] in 10*3/uL Hospital Blood by Automated count ID Date Data Source [id number] 12/22/2018 02:44:00 AM EDT [facility] Value Range Interpretation Description Data Sup porting Code Source(s) Document(s ) Lymphocytes 1.94 [place] [#/volume] in 10*3/uL Hospital Blood by Automated count ID Date Data Source [id number] 12/22/2018 02:44:00 AM EDT [facility] Value Range Interpretation Description Data Sup porting Code Source(s) Document(s ) Neutrophils 8.25 [place] [#/volume] in 10*3/uL Hospital Blood by Automated count ID Date Data Source [id number] 12/22/2018 02:44:00 AM EDT [facility] Value Range Interpretation Description Data Sup porting Code Source(s) Document(s ) Nucleated 0.0 % [place] erythrocytes/10 Hospital 0 leukocytes [Ratio] in Blood by Automated count ID Date Data Source [id number] 12/22[facility] Description Data Sup porting Code Source(s) Document(s ) Immature 0.4 % [place] granulocytes/10 Hospital 0 leukocytes in Blood by Automated count ID Date Data Source [id number] 12/22/2018 02:44:00 AM EDT [facility] Value Range Interpretation Description Data Sup porting Code Source(s) Document(s ) Basophils/100 0.3 % [place] leukocytes in Hospital Blood by Automated count ID Date Data Source [id number] 12/22/2018 02:44:00 AM EDT [facility] Name Value Range Interpretation Description Data Sup porting Code Source(s) Document(s ) Eosinophils/100 1.7 % [place] [facility] leukocytes in Hospital Blood by Automated count ID Date Data Source [id number] 12/22/2018 02:44:00 AM EDT [facility] Name Value Range Interpretation Description Data Sup porting Code Source(s) Document(s ) Monocytes/100 12.3 % [place] leukocytes in Hospital Blood by Automated count ID Date Data Source [id number] 12/22/2018 02:44:00 AM EDT [facility] Name Value Range Interpretation Description Data Sup porting Code Source(s) Document(s ) Lymphocytes/10 16.2 % [place] 0 leukocytes Hospital in Blood by Automated count ID Date Data Source [id number] 12/22/2018 02:44:00 AM EDT [facility] Value Range Interpretation Description Data Sup porting Code Source(s) Document(s ) Neutrophils/10 69.1 % [place] 0 leukocytes Hospital in Blood by Automated count ID Date Data Source [id number] 12/22/2018 01:34:00 AM [facility] Value Range Interpretation Description Data Sup porting Code Source(s) Document(s ) Lactate 0.7 [place] [Moles/volum mmol/L Hospital e] in Serum or Plasma ID Date Data Source [id number] 12/21/2018 08:27[facility] Name Value Range Interpretation Description Data Sup porting Code Source(s) Document(s ) [facility] ID Date Data Source [id number] 12/21/2018 08:27:[facility] Name Value Range Interpretation Description Data Sup porting Code Source(s) Document(s ) Bacteria METHICILLIN White identified in RES STAPH [place] [facility] Culture ID Date Data Source [id number] 12/21/2018 11:22:00 AM EDT [facility] Name Value Range Interpretation Description Data Sup porting Code Source(s) Document(s ) GLUCOSE RN Notified [facility] Hospital ID Date Data Source [id number] 12/20/2018 07:57:00 PM EDT [facility] Name Value Range Interpretation Description Data Sup porting Code Source(s) Document(s ) [facility] Culture ID Date Data Source [id number] 12/20/2018 07:57:00 PM EDT [facility] Name Value Range Interpretation Description Data Sup porting Code Source(s) Document(s ) Hyaline casts 0-5/LPF [place] [#/area] in Hospital Urine sediment by Microscopy low power field ID Date Data Source [id number] 12/20/2018 07:57:00 PM EDT [facility] Name Value Range Interpretation Description Data Sup porting Code Source(s) Document(s ) Epithelial 2+ [place] cells.squamous Hospital [#/area] in Urine sediment by Microscopy high power field ID Date Data Source [id number] 12/20/2018 07:57:00 PM EDT [facility] Name Value Range Interpretation Description Data Sup porting Code Source(s) Document(s ) Bacteria OCCASIONAL [place] [#/area] in Hospital Urine sediment by Microscopy high power field ID Date Data Source [id number] 12/20/2018 07:57:[facility] Name Value Range Interpretation Description Data Sup porting Code Source(s) Document(s ) Erythrocytes 5-10 [place] [#/area] in /[HPF] Hospital Urine sediment by Microscopy high power field ID Date Data Source [id number] 12/20/2018 07:57:00 PM EDT [facility] Name Value Range Interpretation Description Data Sup porting Code Source(s) Document(s ) Leukocytes 10-20 [place] [#/area] in /[HPF] Hospital Urine sediment by Microscopy high power field ID Date Data Source [id number] 12/20/2018 07:57:[facility] Name Value Range Interpretation Description Data Sup porting Code Source(s) Document(s ) Bacteria METHICILLIN White identified in [facility] Urine by [facility] Culture ID Date Data Source [id number] 12/20/2018 07:57:[facility] Name Value Range Interpretation Description Data Sup porting Code Source(s) Document(s ) Hyaline casts 0-5/LPF [place] [#/area] in Hospital Urine sediment by Microscopy low power field ID Date Data Source [id number] 12/20/2018 07:57:00 PM [facility] Name Value Range Interpretation Description Data Sup porting Code Source(s) Document(s ) Epithelial 2+ [place] cells.squamous [facility] [#/area] in Urine sediment by Microscopy high power field ID Date Data Source [id number] 12/20/2018 07:57:00 [facility] Name Value Range Interpretation Description Data Sup porting Code Source(s) Document(s ) Bacteria OCCASIONAL [place] [#/area] in Hospital Urine sediment by Microscopy high power field ID Date Data Source [id number] 12/20/2018 07:57:00 [facility] Name Value Range Interpretation Description Data Sup porting Code Source(s) Document(s ) Erythrocytes 5-10 [place] [#/area] in /[HPF] Hospital Urine sediment by Microscopy high power field ID Date Data Source [id number] 12/20/2018 07:57:00 PM [facility] Name Value Range Interpretation Description Data Sup porting Code Source(s) Document(s ) Leukocytes 10-20 [place] [#/area] in /[HPF] Hospital Urine sediment by Microscopy high power field ID Date Data Source [id number] 12/20/2018 10:02:00 AM [facility] TEST PERFORMED BY [facility]ENS[facility] CHEMILUMINESCENCE METHOD. Name Value Range Interpretation Description Data Sup porting Code Source(s) Document(s ) Troponin 0.01 [place] I.cardiac ng/mL Hospital [Mass/volume ] in Serum or Plasma ID Date Data Source [id number] 12/20/2018 10:02:00 AM [facility] Name Value Range Interpretation Description Data Sup porting Code Source(s) Document(s ) Procalcitonin 0.4 [place] [Mass/volume] in ng/mL Hospital Serum or Plasma ID Date Data Source [id number] 12/20/2018 10:02:00 AM [facility] Value Range Interpretation Code Description Data Jackie rce(s) Supporting Document(s ) Lipase 21 U/L [place] [Enzymatic Hospital activity/vo lume] in Serum or Plasma ID Date Data Source [id number] 12/20/2018 10:02:00 AM [facility] Name Value Range Interpretation Description Data Sup porting Code Source(s) Document(s ) Magnesium 1.3 mg/dL [place] [Mass/volume] Hospital in Serum or Plasma ID Date Data Source [id number] 12/20/2018 10:02:00 AM [facility] Name Value Range Interpretation Description Data Sup porting Code Source(s) Document(s ) Aspartate 24 U/L [facility] aminotransferase [place] [Enzymatic Hospital activity/volume] in Serum or Plasma ID Date Data Source [id number] 12/20/2018 10:02:[facility] Name Value Range Interpretation Description Data Sup porting Code Source(s) Document(s ) Alanine 17 U/L White aminotransferase [place] [Enzymatic Hospital activity/volume] in Serum or Plasma ID Date Data Source [id number] 12/20/2018 10:02:[facility] Name Value Range Interpretation Description Data Sup porting Code Source(s) Document(s ) Alkaline 208 U/L [place] phosphatase Hospital [Enzymatic activity/volume ] in Serum or Plasma ID Date Data Source [id number] 12/20/2018 10:02:00 AM [facility] Value Range Interpretation Description Data Sup porting Code Source(s) Document(s ) Bilirubin.t 0.5 mg/dL [facility] [Mass/volum e] in Serum or Plasma ID Date Data Source [id number] 12/20/2018 10:02:00 AM [facility] Value Range Interpretation Code Description Data Jackie rce(s) Supporting Document(s ) [facility] in Serum or Plasma ID Date Data Source [id number] 12/20/2018 10:02:[facility] Name Value Range Interpretation Description Data Sup porting Code Source(s) Document(s ) Albumin 3.8 g/dL [place] [Mass/volume Hospital ] in Serum or Plasma ID Date Data Source [id number] 12/20/2018 10:02:00 AM [facility] Name Value Range Interpretation Description Data Sup porting Code Source(s) Document(s ) Protein 8.1 g/dL [place] [Mass/volume Hospital ] in Serum or Plasma ID Date Data Source [id number] 12/20/2018 10:02:00 AM [facility] THERAPEUTIC RANGES:UNFRACTIONATED HEPARI N THERAPY: 60-90 SECONDSARGATROBAN THERAPY: 49-99 SECONDS Name Value Range Interpretation Description Data Sup porting Code Source(s) Document(s ) aPTT in 33.5 s [place] Platelet poor [facility] plasma by Coagulation assay ID Date Data Source [id number] 12/20/2018 10:02:00 AM [facility] THERAPEUTIC RANGE FOR STANDARD ORALANTIC OAGULANT THERAPY: 2.0-3.0THERAPEUTIC RANGE FOR HIGH DOSE ORALANTICOAGULANT THERAPY (MECHANICAL HEARTVALVE REPLACEMENT): 2.5-3.5 Name Value Range Interpretation Description Data Sup porting Code Source(s) Document(s ) INR in Platelet 1.3 [facility] plasma by Hospital Coagulation assay ID Date Data Source [id number] 12/20/2018 10:02:00 AM [facility] Name Value Range Interpretation Description Data Sup porting Code Source(s) Document(s ) PT panel - 15.0 s [place] Platelet poor [facility] plasma by Coagulation assay ID Date Data Source [id number] 12/20/2018 10:02:00 AM [facility] Name Value Range Interpretation Code Description Data Jackie rce(s) Supporting Document(s ) Cells 100 [facility] Total [#] in Blood ID Date Data Source [id number] 12/20/2018 10:02:00 AM [facility] Name Value Range Interpretation Code Description Data Supporting Source(s) Document(s ) PLATELET NORMAL [facility] ID Date Data Source [id number] 12/20/2018 10:02:00 AM [facility] Name Value Range Interpretation Code Description Data Jackie rce(s) Supporting Document(s ) LANI CELLS 1+ [facility] ID Date Data Source [id number] 12/20/2018 10:02:00 AM EDT [facility] Value Range Interpretation Code Description Data Jackie rce(s) Supporting Document(s ) TARGET CELLS OCC [facility] ID Date Data Source [id number] 12/20/2018 10:02:00 AM EDT [facility] Value Range Interpretation Code Description Data Jackie rce(s) Supporting Document(s ) HYPOCHROMIA OCC [facility] ID Date Data Source [id number] 12/20/2018 10:02:00 AM EDT [facility] Value Range Interpretation Code Description Data Jackie rce(s) Supporting Document(s ) MICROCYTOSIS 2+ [facility] ID Date Data Source [id number] 12/20/2018 10:02:00 AM EDT [facility] Value Range Interpretation Description Data Sup porting Code Source(s) Document(s ) POIKILOCYTOSIS 1+ [facility] ID Date Data Source [id number] 12/20/2018 10:02:00 AM EDT [facility] Value Range Interpretation Code Description Data Jackie rce(s) Supporting Document(s ) ANISOCYTOSIS 1+ [facility] ID Date Data Source [id number] 12/20/2018 10:02:00 AM EDT [facility] Value Range Interpretation Description Data Sup porting Code Source(s) Document(s ) Basophils 0.26 [place] [#/volume] in 10*3/uL Hospital Blood by Manual count ID Date Data Source [id number] 12/20/2018 10:02:00 AM EDT [facility] Name Value Range Interpretation Description Data Sup porting Code Source(s) Document(s ) Monocytes 1.31 [place] [#/volume] in 10*3/uL Hospital Blood by Manual count ID Date Data Source [id number] 12/20/2018 10:02:00 AM EDT [facility] Value Range Interpretation Description Data Sup porting Code Source(s) Document(s ) Lymphocytes 4.18 [place] [#/volume] in 10*3/uL Hospital Blood by Manual count ID Date Data Source [id number] 12/20/2018 10:02:00 AM EDT [facility] Value Range Interpretation Description Data Sup porting Code Source(s) Document(s ) Neutrophils 20.36 [place] [#/volume] in 10*3/uL Hospital Blood by Manual count ID Date Data Source [id number] 12/20/2018 10:02:00 AM EDT [facility] Value Range Interpretation Description Data Sup porting Code Source(s) Document(s ) Basophils/100 1 % [place] leukocytes in Hospital Blood by Manual count ID Date Data Source [id number] 12/20/2018 10:02:00 AM EDT [facility] Value Range Interpretation Description Data Sup porting Code Source(s) Document(s ) Monocytes/100 5 % [place] leukocytes in Hospital Blood by Manual count ID Date Data Source [id number] 12/20/2018 10:02:00 AM EDT [facility] Value Range Interpretation Description Data Sup porting Code Source(s) Document(s ) Variant 1 % [place] lymphocytes/100 Hospital leukocytes in Blood by Manual count ID Date Data Source [id number] 12/20/2018 10:02:00 AM EDT [facility] Value Range Interpretation Description Data Sup porting Code Source(s) Document(s ) Lymphocytes/100 15 % [place] leukocytes in Hospital Blood by Manual count ID Date Data Source [id number] 12/20/2018 10:02:00 AM [facility] Name Value Range Interpretation Description Data Sup porting Code Source(s) Document(s ) Neutrophils/100 78 % [place] leukocytes in Hospital Blood by Manual count ID Date Data Source [id number] 12/20[facility] Interpretation Description Data Sup porting Code Source(s) Document(s ) Procalcitonin 0.4 [place] [Mass/volume] in ng/mL Hospital Serum or Plasma ID Date Data Source [id number] 12/20/2018 10:02:00 AM [facility] Name Value Range Interpretation Code Description Data Jackie rce(s) Supporting Document(s ) Lipase 21 U/L [place] [Enzymatic Hospital activity/vo lume] in Serum or Plasma ID Date Data Source [id number] 12/20/2018 10:02:00 AM [facility] Name Value Range Interpretation Description Data Sup porting Code Source(s) Document(s ) Magnesium 1.3 mg/dL [place] [Mass/volume] Hospital in Serum or Plasma ID Date Data Source [id number] 12/20/2018 10:02:00 AM [facility] THERAPEUTIC RANGES:UNFRACTIONATED HEPARI N THERAPY: 60-90 SECONDSARGATROBAN THERAPY: 49-99 SECONDS Name Value Range Interpretation Description Data Sup porting Code Source(s) Document(s ) aPTT in 33.5 s [place] Platelet poor [facility] plasma by Coagulation assay ID Date Data Source [id number] 12/20/2018 10:02:00 AM [facility] Name Value Range Interpretation Code Description Data Jackie rce(s) Supporting Document(s ) Cells 100 [facility] Total [#] in Blood ID Date Data Source [id number] 12/20/2018 10:02:00 AM EDT [facility] Value Range Interpretation Code Description Data Supporting Source(s) Document(s ) PLATELET NORMAL [facility] Hospital ID Date Data Source [id number] 12/20/2018 10:02:00 AM EDT [facility] Name Value Range Interpretation Code Description Data Jackie rce(s) Supporting Document(s ) LANI CELLS 1+ [facility] ID Date Data Source [id number] 12/20/2018 10:02:00 AM EDT [facility] Value Range Interpretation Code Description Data Jackie rce(s) Supporting Document(s ) TARGET CELLS OCC [facility] ID Date Data Source [id number] 12/20/2018 10:02:00 AM EDT [facility] Value Range Interpretation Code Description Data Jackie rce(s) Supporting Document(s ) HYPOCHROMIA OCC [facility] ID Date Data Source [id number] 12/20/2018 10:02:00 AM EDT [facility] Value Range Interpretation Code Description Data Jackie rce(s) Supporting Document(s ) MICROCYTOSIS 2+ [facility] ID Date Data Source [id number] 12/20/2018 10:02:00 AM EDT [facility] Value Range Interpretation Description Data Sup porting Code Source(s) Document(s ) POIKILOCYTOSIS 1+ [facility] ID Date Data Source [id number] 12/20/2018 10:02:00 AM EDT [facility] Value Range Interpretation Code Description Data Jackie rce(s) Supporting Document(s ) ANISOCYTOSIS 1+ [facility] ID Date Data Source [id number] 12/20/2018 10:02:00 AM EDT [facility] Name Value Range Interpretation Description Data Sup porting Code Source(s) Document(s ) Basophils 0.26 [place] [#/volume] in 10*3/uL Hospital Blood by Manual count ID Date Data Source [id number] 12/20/2018 10:02:00 AM EDT [facility] Name Value Range Interpretation Description Data Sup porting Code Source(s) Document(s ) Monocytes 1.31 [place] [#/volume] in 10*3/uL Hospital Blood by Manual count ID Date Data Source [id number] 12/20/2018 10:02:00 AM EDT [facility] Value Range Interpretation Description Data Sup porting Code Source(s) Document(s ) Lymphocytes 4.18 [place] [#/volume] in 10*3/uL Hospital Blood by Manual count ID Date Data Source [id number] 12/20/2018 10:02:00 AM EDT [facility] Value Range Interpretation Description Data Sup porting Code Source(s) Document(s ) Neutrophils 20.36 [place] [#/volume] in 10*3/uL Hospital Blood by Manual count ID Date Data Source [id number] 12/20/2018 10:02:00 AM EDT [facility] Name Value Range Interpretation Description Data Sup porting Code Source(s) Document(s ) Basophils/100 1 % [place] leukocytes in Hospital Blood by Manual count ID Date Data Source [id number] 12/20/2018 10:02:00 AM EDT [facility] Name Value Range Interpretation Description Data Sup porting Code Source(s) Document(s ) Monocytes/100 5 % [place] leukocytes in Hospital Blood by Manual count ID Date Data Source [id number] 12/20/2018 10:02:00 AM [facility] Name Value Range Interpretation Description Data Sup porting Code Source(s) Document(s ) Variant 1 % [place] lymphocytes/100 Hospital leukocytes in Blood by Manual count ID Date Data Source [id number] 12/20/2018 10:02:00 AM [facility] Name Value Range Interpretation Description Data Sup porting Code Source(s) Document(s ) Lymphocytes/100 15 % [place] leukocytes in Hospital Blood by Manual count ID Date Data Source [id number] 12/20/2018 10:02:00 AM [facility] Name Value Range Interpretation Description Data Sup porting Code Source(s) Document(s ) Neutrophils/100 78 % [place] leukocytes in Hospital Blood by Manual count ID Date Data Source [id number] 12/20/2018 09:49:00 AM [facility] Name Value Range Interpretation Description Data Sup porting Code Source(s) Document(s ) Bacteria METHICILLIN White identified in RES STAPH [place] Blood by [facility] Culture ID Date Data Source [id number] 12/18/2018 02:58:00 PM [facility] Name Value Range Interpretation Description Data Sup porting Code Source(s) Document(s ) Bacteria CORYNEBACTERIUM White identified SPECIES [place] in Wound by Hospital Culture Bacteria METHICILLIN RES White identified STAPH [facility] [place] in Wound by Hospital Culture ID Date Data Source [id number] 12/18/2018 06:27:00 AM [facility] Business Operations Specialist:FIDELIA CESPEDES Name Value Range Interpretation Description Data Sup porting Code Source(s) Document(s ) Glucose 177 mg/dL [place] [Mass/volume] [facility] in Capillary blood by Glucometer ID Date Data Source [id number] 12/17/2018 11:03:00 AM EDT [facility] Name Value Range Interpretation Description Data Sup porting Code Source(s) Document(s ) GLUCOSE Pre Meal [facility] Hospital ID Date Data Source [id number] 12/17/2018 11:03:00 AM EDT [facility] Name Value Range Interpretation Description Data Sup porting Code Source(s) Document(s ) GLUCOSE Pre Meal [place] [address] Hospital ID Date Data Source [id number] 12/17/2018 11:03:00 AM EDT [facility] Name Value Range Interpretation Description Data Sup porting Code Source(s) Document(s ) GLUCOSE RN Notified [facility] Hospital ID Date Data Source [id number] 12/17/2018 08:45:00 AM EDT [facility] Name Value Range Interpretation Description Data Sup porting Code Source(s) Document(s ) Calcium 8.4 mg/dL [place] [Mass/volume Hospital ] in Serum or Plasma ID Date Data Source [id number] 12/17/2018 08:45:00 AM EDT [facility] Name Value Range Interpretation Code Description Data Jackie rce(s) Supporting Document(s ) Urea 13.8 [place] nitrogen/Cre Hospital atinine [Mass Ratio] in Serum or Plasma ID Date Data Source [id number] 12/17/2018 08:45:00 AM EDT [facility] Name Value Range Interpretation Description Data Sup porting Code Source(s) Document(s ) Creatinine 0.8 mg/dL [place] [Mass/volume] Hospital in Serum or Plasma ID Date Data Source [id number] 12/17/2018 08:45:00 AM EDT [facility] Name Value Range Interpretation Description Data Sup porting Code Source(s) Document(s ) Urea 11 mg/dL [place] nitrogen Hospital [Mass/volume ] in Serum or Plasma ID Date Data Source [id number] 12/17/2018 08:45:00 AM EDT [facility] Name Value Range Interpretation Code Description Data Jackie rce(s) Supporting Document(s ) Anion gap in 12 [place] Serum or [facility] Plasma ID Date Data Source [id number] 12/17/2018 08:45:00 AM EDT [facility] Name Value Range Interpretation Description Data Sup porting Code Source(s) Document(s ) Carbon 25 mmol/L [place] dioxide, Hospital total [Moles/volu me] in Serum or Plasma ID Date Data Source [id number] 12/17/2018 08:45:00 AM EDT [facility] Name Value Range Interpretation Description Data Sup porting Code Source(s) Document(s ) Chloride 99 mmol/L [place] [Moles/volum Hospital e] in Serum or Plasma ID Date Data Source [id number] 12/17/2018 08:45:00 AM EDT [facility] Name Value Range Interpretation Description Data Sup porting Code Source(s) Document(s ) Potassium 4.0 [place] [Moles/volume mmol/L Hospital ] in Serum or Plasma ID Date Data Source [id number] 12/17/2018 08:45:00 AM EDT [facility] Name Value Range Interpretation Description Data Sup porting Code Source(s) Document(s ) Sodium 132 mmol/L [place] [Moles/volu Hospital me] in Serum or Plasma ID Date Data Source [id number] 12/17/2018 08:45:00 AM EDT [facility] Name Value Range Interpretation Description Data Sup porting Code Source(s) Document(s ) Glucose 198 mg/dL [place] [Mass/volume Hospital ] in Serum or Plasma ID Date Data Source [id number] 12/17/2018 08:45:00 AM EDT [facility] Name Value Range Interpretation Description Data Sup porting Code Source(s) Document(s ) Differential AUTOMATED [place] cell count [facility] method - Blood ID Date Data Source [id number] 12/17/2018 08:45:00 AM EDT [facility] Name Value Range Interpretation Description Data Sup porting Code Source(s) Document(s ) Immature 0.06 [place] granulocytes 10*3/uL Hospital [#/volume] in Blood by Automated count ID Date Data Source [id number] 12/17/2018 08:45:00 AM EDT [facility] Value Range Interpretation Description Data Sup porting Code Source(s) Document(s ) Basophils 0.04 [place] [#/volume] in 10*3/uL Hospital Blood by Automated count ID Date Data Source [id number] 12/17/2018 [facility] Interpretation Description Data Sup porting Code Source(s) Document(s ) Eosinophils 0.25 [place] [#/volume] in 10*3/uL Hospital Blood by Automated count ID Date Data Source [id number] 12/17/2018 08:45:00 AM EDT [facility] Name Value Range Interpretation Description Data Sup porting Code Source(s) Document(s ) Monocytes 1.42 [place] [#/volume] in 10*3/uL Hospital Blood by Automated count ID Date Data Source [id number] 12/17/2018 08:45:00 AM EDT [facility] Name Value Range Interpretation Description Data Sup porting Code Source(s) Document(s ) Lymphocytes 2.54 [place] [#/volume] in 10*3/uL Hospital Blood by Automated count ID Date Data Source [id number] 12/17/2018 08:45:00 AM EDT [facility] Value Range Interpretation Description Data Sup porting Code Source(s) Document(s ) Neutrophils 8.07 [place] [#/volume] in 10*3/uL Hospital Blood by Automated count ID Date Data Source [id number] 12/17/2018 08:45:00 AM EDT [facility] Value Range Interpretation Description Data Sup porting Code Source(s) Document(s ) Nucleated 0.0 % [place] erythrocytes/10 Hospital 0 leukocytes [Ratio] in Blood by Automated count ID Date Data Source [id number] 12/17/2018 08:45:00 AM EDT [facility] Value Range Interpretation Description Data Sup porting Code Source(s) Document(s ) Immature 0.5 % [place] granulocytes/10 Hospital 0 leukocytes in Blood by Automated count ID Date Data Source [id number] 12/17/2018 08:45:00 AM EDT [facility] Value Range Interpretation Description Data Sup porting Code Source(s) Document(s ) Basophils/100 0.3 % [place] leukocytes in [facility] Blood by Automated count ID Date Data Source [id number] 12/17/2018 08:45:00 AM EDT [facility] Value Range Interpretation Description Data Sup porting Code Source(s) Document(s ) Eosinophils/100 2.0 % [place] leukocytes in [facility] Blood by Automated count ID Date Data Source [id number] 12/17/2018 08:45:00 AM EDT [facility] Value Range Interpretation Description Data Sup porting Code Source(s) Document(s ) Monocytes/100 11.5 % [place] leukocytes in Hospital Blood by Automated count ID Date Data Source [id number] 12/17/2018 08:45:00 AM EDT [facility] Name Value Range Interpretation Description Data Sup porting Code Source(s) Document(s ) Lymphocytes/10 20.5 % [place] 0 leukocytes Hospital in Blood by Automated count ID Date Data Source [id number] 12/17/2018 08:45:00 AM EDT [facility] Value Range Interpretation Description Data Sup porting Code Source(s) Document(s ) Neutrophils/10 65.2 % [place] 0 leukocytes Hospital in Blood by Automated count ID Date Data Source [id number] 12/17/2018 08:45:00 AM EDT [facility] Value Range Interpretation Description Data Sup porting Code Source(s) Document(s ) Platelet mean 10.3 fL [place] volume Hospital [Entitic volume] in Blood by Automated count ID Date Data Source [id number] 12/17/2018 08:45:00 AM EDT [facility] Value Range Interpretation Description Data Sup porting Code Source(s) Document(s ) Platelets 386 [place] [#/volume] in 10*3/uL Hospital Blood by Automated count ID Date Data Source [id number] 12/17/2018 08:45:00 AM EDT [facility] Value Range Interpretation Description Data Sup porting Code Source(s) Document(s ) Erythrocyte 20.1 % [place] distribution Hospital width [Ratio] by Automated count ID Date Data Source [id number] 12/17/2018 08:45:00 AM EDT [facility] Name Value Range Interpretation Description Data Sup porting Code Source(s) Document(s ) Erythrocyte mean 31.9 [place] corpuscular g/dL Hospital hemoglobin concentration [Mass/volume] by Automated count ID Date Data Source [id number] 12/17/2018 08:45:00 AM EDT [facility] Name Value Range Interpretation Description Data Sup porting Code Source(s) Document(s ) Erythrocyte 24.6 pg [facility] corpuscular hemoglobin [Entitic mass] by Automated count ID Date Data Source [id number] 12/17/2018 08:45:00 AM EDT [facility] Value Range Interpretation Description Data Sup porting Code Source(s) Document(s ) Erythrocyte 76.9 fL [facility] corpuscular volume [Entitic volume] by Automated count ID Date Data Source [id number] 12/17/2018 08:45:00 AM [facility] Value Range Interpretation Description Data Sup porting Code Source(s) Document(s ) Hematocrit 26.3 % [place] [Volume Hospital Fraction] of Blood by Automated count ID Date Data Source [id number] 12/17/2018 08:45:00 AM [facility] Value Range Interpretation Description Data Sup porting Code Source(s) Document(s ) Hemoglobin 8.4 g/dL [place] [Mass/volume] Hospital in Blood ID Date Data Source [id number] 12/17/2018 08:45:00 AM [facility] Value Range Interpretation Description Data Sup porting Code Source(s) Document(s ) Erythrocytes 3.42 [place] [#/volume] in 10*6/uL Hospital Blood by Automated count ID Date Data Source [id number] [facility] Data Sup porting Code Source(s) Document(s ) Leukocytes 12.4 [place] [#/volume] in 10*3/uL Hospital Blood by Automated count ID Date Data Source [id number] 12/16/2018 08:01:00 AM EDT [facility] Name Value Range Interpretation Description Data Sup porting Code Source(s) Document(s ) Phosphate 2.8 mg/dL [place] [Mass/volume] Hospital in Serum or Plasma ID Date Data Source [id number] 12/16/2018 08:01:00 AM [facility] Name Value Range Interpretation Description Data Sup porting Code Source(s) Document(s ) Bilirubin.d < 0.1 [place] irect mg/dL Hospital [Mass/volum e] in Serum or Plasma ID Date Data Source [id number] 12/16/2018 08:01:00 AM [facility] UNITS ARE IN ml/min/1.73m2.IF PATIENT IS -BARBADIAN, MULTIPLY REPORTED RESULT BY 1.21. Name Value Range Interpretation Description Data Sup porting Code Source(s) Document(s ) Glomerular > 60 [place] filtration mL/min Hospital rate/1.73 sq M.predicted [Volume Rate/Area] in Serum or Plasma by Creatinine-bas ed formula (MDRD) ID Date Data Source [id number] 12/16/2018 08:01:00 AM [facility] Name Value Range Interpretation Description Data Sup porting Code Source(s) Document(s ) Phosphate 2.8 mg/dL [place] [Mass/volume] Hospital in Serum or Plasma ID Date Data Source [id number] 12/16/2018 08:01:00 AM [facility] Name Value Range Interpretation Description Data Sup porting Code Source(s) Document(s ) Magnesium 1.3 mg/dL [place] [Mass/volume] Hospital in Serum or Plasma ID Date Data Source [id number] 12/16/2018 08:01:00 AM [facility] Name Value Range Interpretation Description Data Sup porting Code Source(s) Document(s ) Aspartate 15 U/L [place] aminotransferase [place] [Enzymatic Hospital activity/volume] in Serum or Plasma ID Date Data Source [id number] 12/16/2018 08:01:00 AM EDT [facility] Name Value Range Interpretation Description Data Sup porting Code Source(s) Document(s ) Alanine 15 U/L [place] aminotransferase [place] [Enzymatic Hospital activity/volume] in Serum or Plasma ID Date Data Source [id number] 12/16/2018 08:01:00 AM EDT [facility] Name Value Range Interpretation Description Data Sup porting Code Source(s) Document(s ) Alkaline 145 U/L [place] phosphatase Hospital [Enzymatic activity/volume ] in Serum or Plasma ID Date Data Source [id number] 12/16/2018 [facility] Interpret[facility] Description Data Sup porting Code Source(s) Document(s ) Bilirubin.d < 0.1 [place] irect mg/dL Hospital [Mass/volum e] in Serum or Plasma ID Date Data Source [id number] 12/16/2018 08:01:00 AM [facility] Name Value Range Interpretation Description Data Sup porting Code Source(s) Document(s ) Bilirubin.t 0.2 mg/dL [facility] Hospital [Mass/volum e] in Serum or Plasma ID Date Data Source [id number] 12/16/2018 08:01:00 AM EDT [facility] Name Value Range Interpretation Code Description Data Jackie rce(s) Supporting Document(s ) Albumin/Glob 1.0 [place] ulin [Mass Hospital Ratio] in Serum or Plasma ID Date Data Source [id number] 12/16/2018 [facility] Value Range Interpretation Description Data Sup porting Code Source(s) Document(s ) Albumin 3.3 g/dL [place] [Mass/volume Hospital ] in Serum or Plasma ID Date Data Source [id number] 12/16/2018 08:01:00 AM [facility] Name Value Range Interpretation Description Data Sup porting Code Source(s) Document(s ) Protein 6.6 g/dL [place] [Mass/volume Hospital ] in Serum or Plasma ID Date Data Source [id number] 12/16/2018 08:01:00 AM [facility] UNITS ARE IN ml/min/1.73m2.IF PATIENT IS -BARBADIAN, MULTIPLY REPORTED RESULT BY 1.21. Name Value Range Interpretation Description Data Sup porting Code Source(s) Document(s ) Glomerular > 60 [facility] [facility] filtration mL/min Hospital rate/1.73 sq M.predicted [Volume Rate/Area] in Serum or Plasma by Creatinine-bas ed formula (MDRD) ID Date Data Source [id number] 12/16/2018 08:01:00 AM [facility] Name Value Range Interpretation Code Description Data Supporting Source(s) Document(s ) NUCLEATED RBCS 0.0 % [place] (AUTO Hospital DIFF%)DIS ID Date Data Source [id number] 12/15/2018 10:52:00 AM [facility] TEST PERFORMED BY [facility] UL[facility] SENS[facility] CHEMILUMINESCENCE METHOD. Name Value Range Interpretation Description Data Sup porting Code Source(s) Document(s ) Troponin 0.01 [facility] [facility] I.cardiac ng/mL Hospital [Mass/volume ] in Serum or Plasma ID Date Data Source [id number] 12/12/2018 07:31:00 AM [facility] Name Value Range Interpretation Description Data Sup porting Code Source(s) Document(s ) Bacteria No growth [facility] identified in Hospital Blood by Culture ID Date Data Source [id number] 12/11/2018 06:54:00 AM [facility] Name Value Range Interpretation Description Data Sup porting Code Source(s) Document(s ) Procalcitonin 0.2 [place] [Mass/volume] in ng/mL Hospital Serum or Plasma ID Date Data Source [id number] 12/07/2018 07:11:00 PM [facility] Name Value Range Interpretation Description Data Sup porting Code Source(s) Document(s ) MEAN 80.0 fL [facility] VOLUME ID Date Data Source [id number] 12/07/2018 07:11:00 PM [facility] Name Value Range Interpretation Description Data Sup porting Code Source(s) Document(s ) MEAN 80.0 fL [facility] VOLUME ID Date Data Source [id number] 12/07/2018 08:40:00 AM [facility] ADA RECOMMENDATIONS: NON-DIABETES: 4.0-6.0% CONTROLLED DIABETES: 6.0-8.0% UNCONTROLLED DIABETE S: UP TO 20%RECOMMENDED ADA RESULT FOR THERAPY: HEMOGLOBIN A1C RESULT LESS FRANK N 7%.NOTE: METHOD CHANGE EFFECTIVE 11/06/14. Name Value Range Interpretation Description Data Sup porting Code Source(s) Document(s ) Hemoglobin 7.8 % [place] A1c/Hemoglobin. Hospital total in Blood ID Date Data Source [id number] 12/07/2018 08:40:00 AM [facility] ADA RECOMMENDATIONS: NON-DIABETES: 4.0-6.0% CONTROLLED DIABETES: 6.0-8.0% UNCONTROLLED DIABETE S: UP TO 20%RECOMMENDED ADA RESULT FOR THERAPY: HEMOGLOBIN A1C RESULT LESS FRANK N 7%.NOTE: METHOD CHANGE EFFECTIVE 11/06/14. Name Value Range Interpretation Description Data Sup porting Code Source(s) Document(s ) Hemoglobin 7.8 % [facility] A1c/Hemoglobin. Hospital total in Blood ID Date Data Source [id number] 12/06/2018 02:05:00 PM EDT [facility] CUT-OFF >= 200 NG/ML. Name Value Range Interpretation Description Data Sup porting Code Source(s) Document(s ) BENZODIAZEPINES NEGATIVE [place] (UR) [facility] ID Date Data Source [id number] 12/06/2018 02:05:00 PM EDT [facility] CUT-OFF >= 200 NG/ML. Name Value Range Interpretation Description Data Sup porting Code Source(s) Document(s ) BARBITURATES NEGATIVE [facility] (UR) Hospital ID Date Data Source [id number] 12/06/2018 02:05:00 PM EDT [facility] CUT-OFF >= 1000 NG/ML. Name Value Range Interpretation Description Data Sup porting Code Source(s) Document(s ) AMPHETAMINES NEGATIVE [facility] (UR) Hospital ID Date Data Source [id number] 12/06/2018 02:05:00 PM EDT [facility] CUT-OFF >= 25 NG/ML.THE FINDINGS OF THE URINE DRUG SCREEN ARE USED SOLELY FOR PATIENT MANAGEMENT AND GUIDANCE. THE RESULTS ELLEN ULD NOT BE USED FOR FORENSIC PURPOSE. ANY CLINICALLY UNSUSPECTED POSITIVE DRUG SCR EEN CAN BE CONFIRMED BY CALLING THE LABORATORY 3 DAYS WITHIN RECEIPT OF REPO RT. Name Value Range Interpretation Code Description Data Jackie rce(s) Supporting Document(s ) PCP (UR) NEGATIVE [facility] ID Date Data Source [id number] 12/06/2018 02:05:00 PM EDT [facility] CUT-OFF >= 50 NG/ML. Name Value Range Interpretation Code Description Data Jackie rce(s) Supporting Document(s ) THC (UR) NEGATIVE [facility] ID Date Data Source [id number] 12/06/2018 02:05:00 PM EDT [facility] CUT-OFF >= 300 NG/ML. Name Value Range Interpretation Description Data Sup porting Code Source(s) Document(s ) OPIATES (UR) POSITIVE [facility] ID Date Data Source [id number] 12/06/2018 02:05:00 PM EDT [facility] CUT-OFF >= 300 NG/ML. Name Value Range Interpretation Description Data Sup porting Code Source(s) Document(s ) COCAINE (UR) NEGATIVE [facility] ID Date Data Source [id number] 12/06/2018 02:05:00 PM EDT [facility] CUT-OFF >= 200 NG/ML. Name Value Range Interpretation Description Data Sup porting Code Source(s) Document(s ) BENZODIAZEPINES NEGATIVE [place] (UR) [facility] ID Date Data Source [id number] 12/06/2018 02:05:00 PM EDT [facility] CUT-OFF >= 200 NG/ML. Name Value Range Interpretation Description Data Sup porting Code Source(s) Document(s ) BARBITURATES NEGATIVE [facility] (UR) Hospital ID Date Data Source [id number] 12/06/2018 02:05:00 PM EDT [facility] CUT-OFF >= 1000 NG/ML. Name Value Range Interpretation Description Data Sup porting Code Source(s) Document(s ) AMPHETAMINES NEGATIVE [facility] (UR) Hospital ID Date Data Source [id number] 12/06/2018 02:05:00 PM EDT [facility] CUT-OFF >= 25 NG/ML.THE FINDINGS OF THE URINE DRUG SCREEN ARE USED SOLELY FOR PATIENT MANAGEMENT AND GUIDANCE. THE RESULTS ELLEN ULD NOT BE USED FOR FORENSIC PURPOSE. ANY CLINICALLY UNSUSPECTED POSITIVE DRUG SCR EEN CAN BE CONFIRMED BY CALLING THE LABORATORY 3 DAYS WITHIN RECEIPT OF REPO RT. Name Value Range Interpretation Code Description Data Jackie rce(s) Supporting Document(s ) PCP (UR) NEGATIVE [facility] ID Date Data Source [id number] 12/06/2018 02:05:00 PM EDT [facility] CUT-OFF >= 50 NG/ML. Name Value Range Interpretation Code Description Data Jackie rce(s) Supporting Document(s ) THC (UR) NEGATIVE [facility] ID Date Data Source [id number] 12/06/2018 02:05:00 PM EDT [facility] CUT-OFF >= 300 NG/ML. Name Value Range Interpretation Description Data Sup porting Code Source(s) Document(s ) OPIATES (UR) POSITIVE [facility] ID Date Data Source [id number] 12/06[facility]2018 [facility]/ML. Name Value Range Interpretation Description Data Sup porting Code Source(s) Document(s ) COCAINE (UR) NEGATIVE [facility] ID Date Data Source [id number] 12/06/2018 [facility]57[facility] Name Value Range Interpretation Description Data Sup porting Code Source(s) Document(s ) Erythrocytes 3-5 [place] [#/area] in /[HPF] Hospital Urine sediment by Microscopy high power field ID Date Data Source [id number] 12/06/2018 01:57:00 PM [facility] Name Value Range Interpretation Description Data Sup porting Code Source(s) Document(s ) Leukocytes 0-3 [facility] [#/area] in /[HPF] Hospital Urine sediment by Microscopy high power field ID Date Data Source [id number] 12/06/2018 01:57:00 PM [facility] Name Value Range Interpretation Description Data Sup porting Code Source(s) Document(s ) Leukocyte NEGATIVE [facility] [Presence] in Urine by Test strip ID Date Data Source [id number] 12/06/2018 [facility]:57:[facility] Name Value Range Interpretation Description Data Sup porting Code Source(s) Document(s ) URINE NEGATIVE [facility] NITRITES Hospital ID Date Data Source [id number] 12/06/2018 01:57:00 PM EDT [facility] Name Value Range Interpretation Description Data Sup porting Code Source(s) Document(s ) Erythrocytes TRACE [facility] [facility] [#/volume] in Hospital Urine by Test strip ID Date Data Source [id number] 12/06/2018 01:57:00 PM EDT [facility] Name Value Range Interpretation Code Description Data Jackie rce(s) Supporting Document(s ) Bilirubin. NEGATIVE [facility] total Hospital [Presence] in Urine by Test strip ID Date Data Source [id number] 12/06/2018 01:57:00 PM EDT [facility] Value Range Interpretation Description Data Sup porting Code Source(s) Document(s ) Urobilinogen 0.2 [place] [Units/volume] mg/dL Hospital in Urine by Test strip ID Date Data Source [id number] 12/06/2018 01:57:00 PM EDT [facility] Name Value Range Interpretation Code Description Data Jackie rce(s) Supporting Document(s ) Ketones TRACE [facility] [facility] [Mass/volume Hospital ] in Urine by Test strip ID Date Data Source [id number] 12/06/2018 01:57:00 PM EDT [facility] Name Value Range Interpretation Code Description Data Jackie rce(s) Supporting Document(s ) Glucose 2+ [facility] [Mass/volume Hospital ] in Urine by Test strip ID Date Data Source [id number] 12/06/2018 01:57:00 PM EDT [facility] Name Value Range Interpretation Code Description Data Jackie rce(s) Supporting Document(s ) Protein 3+ [facility] [Presence] Hospital in Urine by Test strip ID Date Data Source [id number] 12/06/2018 01:57:00 PM EDT [facility] Name Value Range Interpretation Code Description Data Jackie rce(s) Supporting Document(s ) pH of Urine 7.0 [facility] by Test Hospital strip ID Date Data Source [id number] 12/06/2018 01:57:00 PM EDT [facility] Name Value Range Interpretation Code Description Data Supporting Source(s) Document(s ) Specific 1.022 [facility] gravity of Hospital Urine by Test strip ID Date Data Source [id number] [facility] Interpret[facility] Description Data Sup porting Code Source(s) Document(s ) Clarity in Urine CLEAR [facility] by Refractometry Hospital automated ID Date Data Source [id number] 12/06/2018 [facility] Interpretation Code Description Data Jackie rce(s) Supporting Document(s ) Color of YELLOW [facility] Urine Hospital ID Date Data Source [id number] 12/06/2018 [facility]24[facility] Interpretation Description Data Sup porting Code Source(s) Document(s ) Lactate 0.8 [facility] [Moles/volum mmol/L Hospital e] in Serum or Plasma ID Date Data Source [id number] 12/06/2018 07:51:00 AM EDT [facility] Value Range Interpretation Code Description Data Jackie rce(s) Supporting Document(s ) Lipase 15 U/L [facility] [facility] [Enzymatic Hospital activity/vo lume] in Serum or Plasma ID Date Data Source [id number] 12/06/2018 07:51:00 AM EDT [facility] Value Range Interpretation Code Description Data Jackie rce(s) Supporting Document(s ) Cells 100 [facility] Counted Hospital Total [#] in Blood ID Date Data Source [id number] 12/06/2018 07:51:00 AM EDT [facility] Value Range Interpretation Code Description Data Supporting Source(s) Document(s ) PLATELET NORMAL [facility] Hospital ID Date Data Source [id number] 12/06/2018 07:51:00 AM EDT [facility] Name Value Range Interpretation Code Description Data Jackie rce(s) Supporting Document(s ) HYPOCHROMIA 2+ [facility] ID Date Data Source [id number] 12/06/2018 07:51:00 AM EDT [facility] Value Range Interpretation Code Description Data Jackie rce(s) Supporting Document(s ) MICROCYTOSIS 1+ [facility] ID Date Data Source [id number] 12/06/2018 07:51:00 AM EDT [facility] Value Range Interpretation Code Description Data Jackie rce(s) Supporting Document(s ) ANISOCYTOSIS 2+ [facility] ID Date Data Source [id number] 12/06/2018 07:51:00 AM EDT [facility] Value Range Interpretation Description Data Sup porting Code Source(s) Document(s ) Monocytes 0.28 [place] [#/volume] in 10*3/uL Hospital Blood by Manual count ID Date Data Source [id number] 12/06/2018 07:51:00 AM EDT [facility] Value Range Interpretation Description Data Sup porting Code Source(s) Document(s ) Lymphocytes 1.11 [place] [#/volume] in 10*3/uL Hospital Blood by Manual count ID Date Data Source [id number] 12/06/2018 07:51:00 AM EDT [facility] Value Range Interpretation Description Data Sup porting Code Source(s) Document(s ) Neutrophils 12.51 [place] [#/volume] in 10*3/uL Hospital Blood by Manual count ID Date Data Source [id number] 12/06/2018 07:51:00 AM EDT [facility] Value Range Interpretation Description Data Sup porting Code Source(s) Document(s ) Monocytes/100 2 % [facility] leukocytes in Hospital Blood by Manual count ID Date Data Source [id number] 12/06/2018 07:51:00 AM EDT [facility] Value Range Interpretation Description Data Sup porting Code Source(s) Document(s ) Lymphocytes/100 8 % [facility] leukocytes in Hospital Blood by Manual count ID Date Data Source [id number] 12/06/2018 07:51:00 AM EDT [facility] Value Range Interpretation Description Data Sup porting Code Source(s) Document(s ) Neutrophils/100 90 % [facility] [facility] leukocytes in Hospital Blood by Manual count ID Date Data Source [id number] 12/06/2018 [facility]47[facility] Interpretation Description Data Sup porting Code Source(s) Document(s ) Methicillin PATIENT IS White resistant PRESUMED [place] St[facility] POSITIVE FOR Hospital aureus (MRSA) MRSA DNA [Presence] COLONIZATION in Unspecified specimen by Probe and target amplification method Methicillin MRSA TARGET White resistant DNA DETECTED [place] [facility] Hospital aureus (MRSA) DNA [Presence] in Unspecified specimen by Probe and target amplification method ID Date Data Source [id number] 12/06/2018 05:47:00 AM [facility] Value Range Interpretation Description Data Sup porting Code Source(s) Document(s ) Methicillin MRSA TARGET White resistant DNA DETECTED [place] [facility]aphylococcus Hospital aureus (MRSA) DNA [Presence] in Unspecified specimen by Probe and target amplification method Methicillin PATIENT IS White resistant PRESUMED [place] Staphylococcus POSITIVE FOR Hospital aureus (MRSA) MRSA DNA [Presence] COLONIZATION in Unspecified specimen by Probe and target amplification method ID Date Data Source [id number] 12/06/2018 05:04:00 AM [facility] THERAPEUTIC RANGES:UNFRACTIONATED HEPARI N THERAPY: 60-90 SECONDSARGATROBAN THERAPY: 49-99 SECONDS Name Value Range Interpretation Description Data Sup porting Code Source(s) Document(s ) aPTT in 31.7 s [place] Platelet poor [facility] plasma by Coagulation assay ID Date Data Source [id number] 12/06/2018 05:04:00 AM [facility] THERAPEUTIC RANGE FOR STANDARD ORALANTIC OAGULANT THERAPY: 2.0-3.0THERAPEUTIC RANGE FOR HIGH DOSE ORALANTICOAGULANT THERAPY (MECHANICAL HEARTVALVE REPLACEMENT): 2.5-3.5 Name Value Range Interpretation Description Data Sup porting Code Source(s) Document(s ) INR in Platelet 1.3 [place] [facility] poor plasma by Hospital Coagulation assay ID Date Data Source [id number] 12/06/2018 05:04:00 AM [facility] HEMOLYZED SPECIMEN- HEMOLYSIS CAUSES ELLEN RTENING OF PT AND APTT RESULTS Name Value Range Interpretation Description Data Sup porting Code Source(s) Document(s ) PT panel - 14.4 s [place] Platelet poor [facility] plasma by Coagulation assay ID Date Data Source [id number] 11/25/2018 04:52[facility] Name Value Range Interpretation Description Data Sup porting Code Source(s) Document(s ) Bacteria CORYNEBACTERIUM White identified SPECIES [place] in Wound by Hospital Culture Bacteria METHICILLIN RES White identified STAPH AUREUS [place] in Wound by Hospital Culture ID Date Data Source [id number] 11/25/2018 11:52:00 AM [facility] Name Value Range Interpretation Description Data Sup porting Code Source(s) Document(s ) GLUCOSE RN Notified [facility] Hospital ID Date Data Source [id number] 11/25/2018 11:52:00 AM EDT [facility] Business Operations Specialist:ANGELOMELINDA SOSA Name Value Range Interpretation Description Data Sup porting Code Source(s) Document(s ) Glucose 282 mg/dL [place] [Mass/volume] Hospital in Capillary blood by Glucometer ID Date Data Source [id number] 11/24/2018 09:24:00 AM EDT [facility] Name Value Range Interpretation Description Data Sup porting Code Source(s) Document(s ) Calcium 8.7 mg/dL [place] [Mass/volume Hospital ] in Serum or Plasma ID Date Data Source [id number] 11/24/2018 [facility] Interpretation Code Description Data Jackie rce(s) Supporting Document(s ) Urea 11.7 [place] nitrogen/Cre Hospital atinine [Mass Ratio] in Serum or Plasma ID Date Data Source [id number] 11/24/2018 [facility] Interpretation Description Data Sup porting Code Source(s) Document(s ) Creatinine 1.2 mg/dL [place] [Mass/volume] Hospital in Serum or Plasma ID Date Data Source [id number] 11/24/2018 09[facility]24[facility] Name Value Range Interpretation Description Data Sup porting Code Source(s) Document(s ) Urea 14 mg/dL [facility] [facility] nitrogen Hospital [Mass/volume ] in Serum or Plasma ID Date Data Source [id number] 11/24/2018 [facility] Interpretation Code Description Data Jackie rce(s) Supporting Document(s ) Anion gap in 14 [place] [facility] Serum or [facility] Plasma ID Date Data Source [id number] 11/24/2018 09:24:00 AM EDT [facility] Name Value Range Interpretation Description Data Sup porting Code Source(s) Document(s ) Carbon 24 mmol/L [place] dioxide, Hospital total [Moles/volu me] in Serum or Plasma ID Date Data Source [id number] 11/24/2018 09:24:00 AM EDT [facility] Name Value Range Interpretation Description Data Sup porting Code Source(s) Document(s ) Chloride 105 [place] [Moles/volum mmol/L Hospital e] in Serum or Plasma ID Date Data Source [id number] 11/24/2018 09:24:00 AM EDT [facility] Name Value Range Interpretation Description Data Sup porting Code Source(s) Document(s ) Potassium 4.7 [place] [Moles/volume mmol/L Hospital ] in Serum or Plasma ID Date Data Source [id number] 11/24/2018 09:24:00 AM EDT [facility] Name Value Range Interpretation Description Data Sup porting Code Source(s) Document(s ) Sodium 138 mmol/L [place] [Moles/volu Hospital me] in Serum or Plasma ID Date Data Source [id number] 11/24/2018 09:24:00 AM EDT [facility] Name Value Range Interpretation Description Data Sup porting Code Source(s) Document(s ) Glucose 200 mg/dL [place] [Mass/volume Hospital ] in Serum or Plasma ID Date Data Source [id number] 11/24/2018 09:24:00 AM EDT [facility] Name Value Range Interpretation Description Data Sup porting Code Source(s) Document(s ) Differential AUTOMATED [facility] [facility] cell count Hospital method - Blood ID Date Data Source [id number] 11/24/2018 09:24:00 AM EDT [facility] Name Value Range Interpretation Description Data Sup porting Code Source(s) Document(s ) Immature 0.02 [place] granulocytes 10*3/uL Hospital [#/volume] in Blood by Automated count ID Date Data Source [id number] 11/24/2018 09:24:00 AM EDT [facility] Value Range Interpretation Description Data Sup porting Code Source(s) Document(s ) Basophils 0.04 [place] [#/volume] in 10*3/uL Hospital Blood by Automated count ID Date Data Source [id number] 11/24/2018 09:24:00 AM EDT [facility] Value Range Interpretation Description Data Sup porting Code Source(s) Document(s ) Eosinophils 0.49 [place] [#/volume] in 10*3/uL Hospital Blood by Automated count ID Date Data Source [id number] 11/24/2018 09:24:00 AM EDT [facility] Value Range Interpretation Description Data Sup porting Code Source(s) Document(s ) Monocytes 0.71 [place] [#/volume] in 10*3/uL Hospital Blood by Automated count ID Date Data Source [id number] 11/24/2018 09:24:00 AM EDT [facility] Value Range Interpretation Description Data Sup porting Code Source(s) Document(s ) Lymphocytes 3.02 [place] [#/volume] in 10*3/uL Hospital Blood by Automated count ID Date Data Source [id number] 11/24/2018 09:24:00 AM EDT [facility] Name Value Range Interpretation Description Data Sup porting Code Source(s) Document(s ) Neutrophils 4.50 [place] [#/volume] in 10*3/uL Hospital Blood by Automated count ID Date Data Source [id number] 11/24/2018 09:24:00 AM EDT [facility] Name Value Range Interpretation Description Data Sup porting Code Source(s) Document(s ) Nucleated 0.0 % [place] erythrocytes/10 Hospital 0 leukocytes [Ratio] in Blood by Automated count ID Date Data Source [id number] 11/24/2018 09:24:00 AM EDT [facility] Value Range Interpretation Description Data Sup porting Code Source(s) Document(s ) Immature 0.2 % [place] granulocytes/10 Hospital 0 leukocytes in Blood by Automated count ID Date Data Source [id number] 11/24/2018 09:24:00 AM EDT [facility] Value Range Interpretation Description Data Sup porting Code Source(s) Document(s ) Basophils/100 0.5 % [place] leukocytes in Hospital Blood by Automated count ID Date Data Source [id number] 11/24/2018 09:24:00 AM EDT [facility] Value Range Interpretation Description Data Sup porting Code Source(s) Document(s ) Eosinophils/100 5.6 % [place] leukocytes in Hospital Blood by Automated count ID Date Data Source [id number] 11/24/2018 09:24:00 AM EDT [facility] Value Range Interpretation Description Data Sup porting Code Source(s) Document(s ) Monocytes/100 8.1 % [place] leukocytes in Hospital Blood by Automated count ID Date Data Source [id number] 11/24/2018 09:24:00 AM EDT [facility] Value Range Interpretation Description Data Sup porting Code Source(s) Document(s ) Lymphocytes/10 34.4 % [place] 0 leukocytes Hospital in Blood by Automated count ID Date Data Source [id number] 11/24/2018 09:24:00 AM EDT [facility] Name Value Range Interpretation Description Data Sup porting Code Source(s) Document(s ) Neutrophils/10 51.2 % [place] 0 leukocytes Hospital in Blood by Automated count ID Date Data Source [id number] 11/24/2018 09:24:00 AM EDT [facility] Name Value Range Interpretation Description Data Sup porting Code Source(s) Document(s ) Platelet mean 10.1 fL [place] [facility] volume Hospital [Entitic volume] in Blood by Automated count ID Date Data Source [id number] 11/24/2018 09:24:00 AM [facility] Name Value Range Interpretation Description Data Sup porting Code Source(s) Document(s ) Platelets 397 [place] [#/volume] in 10*3/uL Hospital Blood by Automated count ID Date Data Source [id number] 11/24/2018 09:24:00 AM [facility] Name Value Range Interpretation Description Data Sup porting Code Source(s) Document(s ) Erythrocyte 22.4 % [facility] Hospital width [Ratio] by Automated count ID Date Data Source [id number] 11/24/2018 09:24:00 AM [facility] Value Range Interpretation Description Data Sup porting Code Source(s) Document(s ) Erythrocyte mean 29.8 [place] corpuscular g/dL Hospital hemoglobin concentration [Mass/volume] by Automated count ID Date Data Source [id number] 11/24/2018 09:24:00 AM [facility] Value Range Interpretation Description Data Sup porting Code Source(s) Document(s ) Erythrocyte 24.5 pg [facility] corpuscular hemoglobin [Entitic mass] by Automated count ID Date Data Source [id number] 11/24/2018 09:24:00 AM [facility] Value Range Interpretation Description Data Sup porting Code Source(s) Document(s ) Erythrocyte 82.1 fL [place] [facility] mean Hospital corpuscular volume [Entitic volume] by Automated count ID Date Data Source [id number] 11/24/2018 09:24:00 AM [facility] Name Value Range Interpretation Description Data Sup porting Code Source(s) Document(s ) Hematocrit 26.2 % [place] [Volume Hospital Fraction] of Blood by Automated count ID Date Data Source [id number] 11/24/2018 09:24:00 AM [facility] NOTIFICATION AND READ BACK OF CRITICAL R ESULTS TO Nimesh CRISOSTOMO RN AT 1018 ON 11/24/18 BY Callie Holt. Name Value Range Interpretation Description Data Sup porting Code Source(s) Document(s ) Hemoglobin 7.8 g/dL [place] [Mass/volume] Hospital in Blood ID Date Data Source [id number] 11/24/2018 09:24:00 AM [facility] Name Value Range Interpretation Description Data Sup porting Code Source(s) Document(s ) Erythrocytes 3.19 [place] [#/volume] in 10*6/uL Hospital Blood by Automated count ID Date Data Source [id number] 11/24/2018 09:24:00 AM [facility] Name Value Range Interpretation Description Data Sup porting Code Source(s) Document(s ) Leukocytes 8.8 [place] [#/volume] in 10*3/uL Hospital Blood by Automated count ID Date Data Source [id number] 11/23/2018 08:58:00 AM [facility] NOTE: NEW REFERENCE RANGE, EFFECTIVE . Name Value Range Interpretation Description Data Sup porting Code Source(s) Document(s ) Vancomycin 13.7 [place] [Mass/volume] ug/mL Hospital in Serum or Plasma --trough ID Date Data Source [id number] 11/23/2018 08:58:00 AM [facility] NOTE: NEW REFERENCE RANGE, EFFECTIVE . Name Value Range Interpretation Description Data Sup porting Code Source(s) Document(s ) Vancomycin 13.7 [place] [Mass/volume] ug/mL Hospital in Serum or Plasma --trough ID Date Data Source [id number] 11/23/2018 07:15:00 AM [facility] Name Value Range Interpretation Description Data Sup porting Code Source(s) Document(s ) C reactive 21.0 mg/L [place] protein Hospital [Mass/volume ] in Serum or Plasma ID Date Data Source [id number] 11/23/2018 07:15:00 AM [facility] Value Range Interpretation Description Data Sup porting Code Source(s) Document(s ) Erythrocyte 92 mm/h [place] [facility] sedimentation Hospital rate by Westergren method ID Date Data Source [id number] 11/23/2018 07:15:00 AM [facility] Value Range Interpretation Description Data Sup porting Code Source(s) Document(s ) C reactive 21.0 mg/L [place] protein Hospital [Mass/volume ] in Serum or Plasma ID Date Data Source [id number] 11/23/2018 07:15:00 AM [facility] Name Value Range Interpretation Description Data Sup porting Code Source(s) Document(s ) Aspartate 22 U/L White aminotransferase [place] [Enzymatic Hospital activity/volume] in Serum or Plasma ID Date Data Source [id number] 11/23/2018 07:15:00 AM [facility] Value Range Interpretation Description Data Sup porting Code Source(s) Document(s ) Alanine 23 U/L White aminotransferase [place] [Enzymatic Hospital activity/volume] in Serum or Plasma ID Date Data Source [id number] 11/23/2018 [facility] Interpretation Description Data Sup porting Code Source(s) Document(s ) Alkaline 120 U/L [place] phosphatase [facility] [Enzymatic activity/volume ] in Serum or Plasma ID Date Data Source [id number] 11/23/2018 [facility]15[facility] Name Value Range Interpretation Description Data Sup porting Code Source(s) Document(s ) Bilirubin.t 0.3 mg/dL [facility] [Mass/volum e] in Serum or Plasma ID Date Data Source [id number] 11/23/2018 07:15:00 AM [facility] Value Range Interpretation Code Description Data Jackie rce(s) Supporting Document(s ) [facility] in Serum or Plasma ID Date Data Source [id number] 11/23/2018 07[facility]15[facility] Value Range Interpretation Description Data Sup porting Code Source(s) Document(s ) Albumin 3.3 g/dL [place] [Mass/volume Hospital ] in Serum or Plasma ID Date Data Source [id number] 11/23/2018 07:15[facility] Name Value Range Interpretation Description Data Sup porting Code Source(s) Document(s ) Protein 6.5 g/dL [place] [Mass/volume Hospital ] in Serum or Plasma ID Date Data Source [id number] 11/23/2018 07:15[facility] Name Value Range Interpretation Description Data Sup porting Code Source(s) Document(s ) Erythrocyte 92 mm/h [place] sedimentation Hospital rate by Westergren method ID Date Data Source [id number] 11/22/2018 06:30:00 AM EDT [facility] Name Value Range Interpretation Description Data Sup porting Code Source(s) Document(s ) GLUCOSE Pre Meal [place] COMMENT2 Hospital ID Date Data Source [id number] 11/17/2018 09:13:00 AM EDT [facility] Name Value Range Interpretation Code Description Data Supporting Source(s) Document(s ) NUCLEATED RBCS 0.0 % [place] (AUTO Hospital DIFF%)DIS ID Date Data Source [id number] 11/14[facility] Description Data Sup porting Code Source(s) Document(s ) Hyaline casts 0-5/LPF [place] [#/area] in Hospital Urine sediment by Microscopy low power field ID Date Data Source [id number] 11/14/2018 [facility]31[facility] Name Value Range Interpretation Description Data Sup porting Code Source(s) Document(s ) Epithelial OCCASIONAL [place] cells.[facility] s [#/area] in Urine sediment by Microscopy high power field ID Date Data Source [id number] 11/14/2018 07:31:00 PM [facility] Name Value Range Interpretation Description Data Sup porting Code Source(s) Document(s ) Hyaline casts 0-5/LPF [place] [#/area] in Hospital Urine sediment by Microscopy low power field ID Date Data Source [id number] 11/14/2018 07[facility]31:[facility] Name Value Range Interpretation Description Data Sup porting Code Source(s) Document(s ) Epithelial OCCASIONAL [place] cells.[facility] s [#/area] in Urine sediment by Microscopy high power field ID Date Data Source [id number] 11/14/2018 07:31:00 PM EDT [facility] Name Value Range Interpretation Description Data Sup porting Code Source(s) Document(s ) Erythrocytes 3-5 [place] [#/area] in /[HPF] Hospital Urine sediment by Microscopy high power field ID Date Data Source [id number] 11/14/2018 07:31:00 PM EDT [facility] Name Value Range Interpretation Description Data Sup porting Code Source(s) Document(s ) Leukocytes 0-3 [place] [#/area] in /[HPF] Hospital Urine sediment by Microscopy high power field ID Date Data Source [id number] 11/14/2018 07:31:00 PM EDT [facility] Value Range Interpretation Description Data Sup porting Code Source(s) Document(s ) Leukocyte NEGATIVE [place] esterase Hospital [Presence] in Urine by Test strip ID Date Data Source [id number] 11/14/2018 [facility] Interpretation Description Data Sup porting Code Source(s) Document(s ) URINE NEGATIVE [facility] Hospital ID Date Data Source [id number] 11/14/2018 [facility] Interpretation Description Data Sup porting Code Source(s) Document(s ) Erythrocytes TRACE [place] [#/volume] in Hospital Urine by Test strip ID Date Data Source [id number] 11/14/2018 [facility] Interpretation Code Description Data Jackie rce(s) Supporting Document(s ) Bilirubin. NEGATIVE [place] [facility] total Hospital [Presence] in Urine by Test strip ID Date Data Source [id number] 11/14/2018 07:31:00 PM EDT [facility] Name Value Range Interpretation Description Data Sup porting Code Source(s) Document(s ) Urobilinogen 0.2 [place] [Units/volume] mg/dL Hospital in Urine by Test strip ID Date Data Source [id number] 11/14/2018 07:31:00 PM EDT [facility] Name Value Range Interpretation Description Data Sup porting Code Source(s) Document(s ) Ketones NEGATIVE [place] [Mass/volume Hospital ] in Urine by Test strip ID Date Data Source [id number] 11/14/2018 07:31:00 PM EDT [facility] Name Value Range Interpretation Code Description Data Jackie rce(s) Supporting Document(s ) Glucose 2+ [place] [Mass/volume Hospital ] in Urine by Test strip ID Date Data Source [id number] 11/14/2018 07:31:00 PM EDT [facility] Value Range Interpretation Code Description Data Jackie rce(s) Supporting Document(s ) Protein 2+ [place] [Presence] Hospital in Urine by Test strip ID Date Data Source [id number] 11/14/2018 07:31:[facility] Name Value Range Interpretation Code Description Data Jackie rce(s) Supporting Document(s ) pH of Urine 8.5 [place] by Test Hospital strip ID Date Data Source [id number] 11/14/2018 07:31:00 PM [facility] Value Range Interpretation Code Description Data Supporting Source(s) Document(s ) Specific 1.018 [place] gravity of Hospital Urine by Test strip ID Date Data Source [id number] 11/14/2018 07:31:00 PM [facility] Value Range Interpretation Description Data Sup porting Code Source(s) Document(s ) Clarity in Urine CLEAR [place] by Refractometry Hospital automated ID Date Data Source [id number] 11/14/2018 07:31:00 PM EDT [facility] Name Value Range Interpretation Code Description Data Jackie rce(s) Supporting Document(s ) Color of YELLOW [place] Urine Hospital ID Date Data Source [id number] 11/14/2018 05:57:00 PM EDT [facility] Name Value Range Interpretation Description Data Sup porting Code Source(s) Document(s ) Lactate 1.2 [place] [Moles/volum mmol/L Hospital e] in Serum or Plasma ID Date Data Source [id number] 11/14/2018 03:23:00 PM EDT [facility] Name Value Range Interpretation Code Description Data Jackie rce(s) Supporting Document(s ) Lipase 21 U/L [place] [Enzymatic Hospital activity/vo lume] in Serum or Plasma ID Date Data Source [id number] 11/14/2018 03:23:00 PM [facility] THERAPEUTIC RANGE FOR STANDARD ORALANTIC OAGULANT THERAPY: 2.0-3.0THERAPEUTIC RANGE FOR HIGH DOSE ORALANTICOAGULANT THERAPY (MECHANICAL HEARTVALVE REPLACEMENT): 2.5-3.5 Name Value Range Interpretation Description Data Sup porting Code Source(s) Document(s ) INR in Platelet 1.2 [place] poor plasma by Hospital Coagulation assay ID Date Data Source [id number] 11/14/2018 03:23[facility] Name Value Range Interpretation Description Data Sup porting Code Source(s) Document(s ) PT panel - 13.9 s [place] Platelet poor [facility] plasma by Coagulation assay ID Date Data Source [id number] 11/11/2018 12:15:00 PM [facility] Business Operations Specialist: ANASTASIIA GONG Name Value Range Interpretation Description Data Sup porting Code Source(s) Document(s ) Glucose 215 mg/dL [place] [Mass/volume] Hospital in Capillary blood by Glucometer ID Date Data Source [id number] 11/11/2018 05:31:00 AM EDT [facility] Value Range Interpretation Code Description Data Supporting Source(s) Document(s ) NUCLEATED RBCS 0.0 % [place] (AUTO Hospital DIFF%)DIS ID Date Data Source [id number] 11/11/2018 05:31:00 AM EDT [facility] Value Range Interpretation Description Data Sup porting Code Source(s) Document(s ) Differential AUTOMATED [place] cell count Hospital method - Blood ID Date Data Source [id number] 11/11/2018 05:31:00 AM EDT [facility] Value Range Interpretation Description Data Sup porting Code Source(s) Document(s ) Immature 0.06 [place] granulocytes 10*3/uL Hospital [#/volume] in Blood by Automated count ID Date Data Source [id number] 11/11/2018 05:31:00 AM EDT [facility] Value Range Interpretation Description Data Sup porting Code Source(s) Document(s ) Basophils 0.04 [place] [#/volume] in 10*3/uL Hospital Blood by Automated count ID Date Data Source [id number] 11/11/2018 05:31:00 AM EDT [facility] Name Value Range Interpretation Description Data Sup porting Code Source(s) Document(s ) Eosinophils 0.26 [place] [#/volume] in 10*3/uL Hospital Blood by Automated count ID Date Data Source [id number] 11/11/2018 05:31:00 AM EDT [facility] Name Value Range Interpretation Description Data Sup porting Code Source(s) Document(s ) Monocytes 1.06 [place] [#/volume] in 10*3/uL Hospital Blood by Automated count ID Date Data Source [id number] 11/11/2018 05:31:00 AM EDT [facility] Value Range Interpretation Description Data Sup porting Code Source(s) Document(s ) Lymphocytes 2.95 [place] [#/volume] in 10*3/uL Hospital Blood by Automated count ID Date Data Source [id number] 11/11/2018 05:31:00 AM EDT [facility] Value Range Interpretation Description Data Sup porting Code Source(s) Document(s ) Neutrophils 5.77 [place] [#/volume] in 10*3/uL Hospital Blood by Automated count ID Date Data Source [id number] 11/11/2018 05:31:00 AM EDT [facility] Value Range Interpretation Description Data Sup porting Code Source(s) Document(s ) Nucleated 0.0 % [place] erythrocytes/10 Hospital 0 leukocytes [Ratio] in Blood by Automated count ID Date Data Source [id number] 11/11/2018 05:31:00 AM EDT [facility] Value Range Interpretation Description Data Sup porting Code Source(s) Document(s ) Immature 0.6 % [place] granulocytes/10 Hospital 0 leukocytes in Blood by Automated count ID Date Data Source [id number] 11/11/2018 05:31:00 AM EDT [facility] Value Range Interpretation Description Data Sup porting Code Source(s) Document(s ) Basophils/100 0.4 % [place] leukocytes in Hospital Blood by Automated count ID Date Data Source [id number] 11/11/2018 05:31:00 AM EDT [facility] Value Range Interpretation Description Data Sup porting Code Source(s) Document(s ) Eosinophils/100 2.6 % [place] leukocytes in Hospital Blood by Automated count ID Date Data Source [id number] 11/11/2018 05:31:00 AM EDT [facility] Name Value Range Interpretation Description Data Sup porting Code Source(s) Document(s ) Monocytes/100 10.5 % [place] leukocytes in Hospital Blood by Automated count ID Date Data Source [id number] 11/11/2018 05:31:00 AM EDT [facility] Name Value Range Interpretation Description Data Sup porting Code Source(s) Document(s ) Lymphocytes/10 29.1 % [place] 0 leukocytes Hospital in Blood by Automated count ID Date Data Source [id number] 11/11/2018 05:31:00 AM EDT [facility] Value Range Interpretation Description Data Sup porting Code Source(s) Document(s ) Neutrophils/10 56.8 % [place] 0 leukocytes Hospital in Blood by Automated count ID Date Data Source [id number] 11/11/2018 05:31:00 AM EDT [facility] Name Value Range Interpretation Description Data Sup porting Code Source(s) Document(s ) Platelet mean 10.5 fL [place] volume Hospital [Entitic volume] in Blood by Automated count ID Date Data Source [id number] 11/11[facility]2018 [facility] Interpretation Description Data Sup porting Code Source(s) Document(s ) Platelets 334 [place] [#/volume] in 10*3/uL Hospital Blood by Automated count ID Date Data Source [id number] 11/11/2018 05:31:00 AM EDT [facility] Value Range Interpretation Description Data Sup porting Code Source(s) Document(s ) Erythrocyte 21.2 % [place] distribution Hospital width [Ratio] by Automated count ID Date Data Source [id number] 11/11/2018 05:31:00 AM EDT [facility] Name Value Range Interpretation Description Data Sup porting Code Source(s) Document(s ) Erythrocyte mean 31.2 [place] corpuscular g/dL Hospital hemoglobin concentration [Mass/volume] by Automated count ID Date Data Source [id number] 11/11/2018 05:31:00 AM [facility] Name Value Range Interpretation Description Data Sup porting Code Source(s) Document(s ) Erythrocyte 24.4 pg [facility] corpuscular hemoglobin [Entitic mass] by Automated count ID Date Data Source [id number] 11/11/2018 05:31:00 AM [facility] Name Value Range Interpretation Description Data Sup porting Code Source(s) Document(s ) Erythrocyte 78.3 fL [facility] corpuscular volume [Entitic volume] by Automated count ID Date Data Source [id number] 11/11/2018 05:31:00 AM [facility] NOTIFICATION AND READ BACK OF CRITICAL R ESULTS TO ANTOINE MARISCAL RN IN 5F AT 0605 ON 11/11/18 BY Radha Kaufman. Name Value Range Interpretation Description Data Sup porting Code Source(s) Document(s ) Hematocrit 23.1 % [place] [Volume Hospital Fraction] of Blood by Automated count ID Date Data Source [id number] 11/11/2018 05:31:00 AM [facility] NOTIFICATION AND READ BACK OF CRITICAL R ESULTS TO ANTOINE MARISCAL RN IN 5F AT 0605 ON 11/11/18 BY Radha Kaufman. Name Value Range Interpretation Description Data Sup porting Code Source(s) Document(s ) Hemoglobin 7.2 g/dL [place] [Mass/volume] Hospital in Blood ID Date Data Source [id number] 11/11/2018 05:31:00 AM [facility] Name Value Range Interpretation Description Data Sup porting Code Source(s) Document(s ) Erythrocytes 2.95 [place] [#/volume] in 10*6/uL Hospital Blood by Automated count ID Date Data Source [id number] 11/11/2018 05:31:00 AM EDT [facility] Name Value Range Interpretation Description Data Sup porting Code Source(s) Document(s ) Leukocytes 10.1 [place] [#/volume] in 10*3/uL Hospital Blood by Automated count ID Date Data Source [id number] 11/10/2018 06:04:00 AM EDT [facility] Name Value Range Interpretation Description Data Sup porting Code Source(s) Document(s ) Ferritin 130.0 [place] [Mass/volume ng/mL Hospital ] in Serum or Plasma ID Date Data Source [id number] 11/10/2018 06:04:00 AM EDT [facility] Name Value Range Interpretation Description Data Sup porting Code Source(s) Document(s ) Folate 10.2 ng/mL [place] [Mass/volum Hospital e] in Serum or Plasma ID Date Data Source [id number] 11/10/2018 06:04:00 AM EDT [facility] Value Range Interpretation Description Data Sup porting Code Source(s) Document(s ) Cobalamin 612 pg/mL [place] (Vitamin B12) Hospital [Mass/volume] in Serum or Plasma ID Date Data Source [id number] 11/10/2018 06:04:00 AM EDT [facility] Name Value Range Interpretation Description Data Sup porting Code Source(s) Document(s ) Iron saturation 21 % [place] [Mass Fraction] Hospital in Serum or Plasma ID Date Data Source [id number] 11/10/2018 06:04:00 AM EDT [facility] Name Value Range Interpretation Description Data Sup porting Code Source(s) Document(s ) UNSAT IRON 192 ug/dL [facility] Hospital CAPACITY ID Date Data Source [id number] 11/10/2018 06:04:00 AM EDT [facility] Name Value Range Interpretation Description Data Sup porting Code Source(s) Document(s ) Iron binding 245 ug/dL [facility] [Mass/volume ] in Serum or Plasma ID Date Data Source [id number] 11/10/2018 06:04:00 AM EDT [facility] Value Range Interpretation Code Description Data Supporting Source(s) Document(s ) Iron 53 ug/dL [place] [Mass/volum Hospital e] in Serum or Plasma ID Date Data Source [id number] 11/10/2018 06:04:00 AM [facility] Value Range Interpretation Description Data Sup porting Code Source(s) Document(s ) Lactate 134 U/L [facility] [Enzymatic activity/volume] in Serum or Plasma ID Date Data Source [id number] 11/10/2018 06:04:00 AM EDT [facility] Name Value Range Interpretation Description Data Sup porting Code Source(s) Document(s ) Ferritin 130.0 [place] [Mass/volume ng/mL Hospital ] in Serum or Plasma ID Date Data Source [id number] 11/10/2018 06:04:00 AM EDT [facility] Name Value Range Interpretation Description Data Sup porting Code Source(s) Document(s ) Folate 10.2 ng/mL [place] [[facility] e] in Serum or Plasma ID Date Data Source [id number] 11/10/[facility] Range Interpretation Description Data Sup porting Code Source(s) Document(s ) Cobalamin 612 pg/mL [place] (Vitamin B12) Hospital [Mass/volume] in Serum or Plasma ID Date Data Source [id number] 11/10/2018 06:04:00 AM EDT [facility] Name Value Range Interpretation Description Data Sup porting Code Source(s) Document(s ) Iron saturation 21 % [place] [Mass Fraction] Hospital in Serum or Plasma ID Date Data Source [id number] 11/10/2018 06:04:00 AM EDT [facility] Name Value Range Interpretation Description Data Sup porting Code Source(s) Document(s ) UNSAT IRON 192 ug/dL [place] [facility] BINDING Hospital CAPACITY ID Date Data Source [id number] 11/10/2018 06:04:00 AM EDT [facility] Value Range Interpretation Description Data Sup porting Code Source(s) Document(s ) Iron binding 245 ug/dL [place] [facility] capacity Hospital [Mass/volume ] in Serum or Plasma ID Date Data Source [id number] 11/10/2018 06:04:00 AM EDT [facility] Name Value Range Interpretation Code Description Data Supporting Source(s) Document(s ) Iron 53 ug/dL [place] [[facility] e] in Serum or Plasma ID Date Data Source [id number] 11/10/2018 06:04:00 AM EDT [facility] Name Value Range Interpretation Description Data Sup porting Code Source(s) Document(s ) Lactate 134 U/L [place] dehydrogenase Hospital [Enzymatic activity/volume] in Serum or Plasma ID Date Data Source [id number] 11/10/2018 06:04:00 AM EDT [facility] Name Value Range Interpretation Description Data Sup porting Code Source(s) Document(s ) Aspartate 16 U/L [place] aminotransferase [place] [Enzymatic Hospital activity/volume] in Serum or Plasma ID Date Data Source [id number] 11/10/2018 06:04:00 AM EDT [facility] Name Value Range Interpretation Description Data Sup porting Code Source(s) Document(s ) Alanine 13 U/L [place] aminotransferase [place] [Enzymatic Hospital activity/volume] in Serum or Plasma ID Date Data Source [id number] 11/10/2018 06:04:00 AM EDT [facility] Name Value Range Interpretation Description Data Sup porting Code Source(s) Document(s ) Alkaline 108 U/L [place] phosphatase Hospital [Enzymatic activity/volume ] in Serum or Plasma ID Date Data Source [id number] 11/10/2018 06:04:00 AM EDT [facility] Name Value Range Interpretation Description Data Sup porting Code Source(s) Document(s ) Bilirubin.t 0.3 mg/dL [facility] [Mass/volum e] in Serum or Plasma ID Date Data Source [id number] 11/10/2018 06:04:00 AM EDT [facility] Name Value Range Interpretation Code Description Data Jackie rce(s) Supporting Document(s ) [facility] in Serum or Plasma ID Date Data Source [id number] 11/10/2018 06:04:00 AM EDT [facility] Name Value Range Interpretation Description Data Sup porting Code Source(s) Document(s ) Albumin 2.9 g/dL [place] [Mass/volume Hospital ] in Serum or Plasma ID Date Data Source [id number] 11/10/2018 [facility] Range Interpretation Description Data Sup porting Code Source(s) Document(s ) Protein 6.1 g/dL [place] [Mass/volume Hospital ] in Serum or Plasma ID Date Data Source [id number] 11/10/2018 06:04:00 AM EDT [facility] Name Value Range Interpretation Description Data Sup porting Code Source(s) Document(s ) Calcium 8.3 mg/dL [place] [Mass/volume Hospital ] in Serum or Plasma ID Date Data Source [id number] 11/10/2018 06:04:00 AM EDT [facility] Name Value Range Interpretation Code Description Data Jackie rce(s) Supporting Document(s ) Urea 26.7 [place] nitrogen/Cre Hospital atinine [Mass Ratio] in Serum or Plasma ID Date Data Source [id number] 11/10/2018 06:04:00 AM EDT [facility] Name Value Range Interpretation Description Data Sup porting Code Source(s) Document(s ) Creatinine 0.9 mg/dL [place] [Mass/volume] Hospital in Serum or Plasma ID Date Data Source [id number] 11/10/2018 06:04:00 AM EDT [facility] Name Value Range Interpretation Description Data Sup porting Code Source(s) Document(s ) Urea 24 mg/dL [place] nitrogen Hospital [Mass/volume ] in Serum or Plasma ID Date Data Source [id number] 11/10/2018 06:04:00 AM EDT [facility] Value Range Interpretation Code Description Data Jackie rce(s) Supporting Document(s ) Anion gap in 13 [place] Serum or Hospital Plasma ID Date Data Source [id number] 11/10/2018 06:04:00 AM EDT [facility] Name Value Range Interpretation Description Data Sup porting Code Source(s) Document(s ) Carbon 30 mmol/L [place] dioxide, Hospital total [Moles/volu me] in Serum or Plasma ID Date Data Source [id number] 11/10/2018 06:04:00 AM EDT [facility] Name Value Range Interpretation Description Data Sup porting Code Source(s) Document(s ) Chloride 96 mmol/L [place] [Moles/volum Hospital e] in Serum or Plasma ID Date Data Source [id number] 11/10/2018 06:04:00 AM [facility] Value Range Interpretation Description Data Sup porting Code Source(s) Document(s ) Potassium 3.7 [place] [Moles/volume mmol/L Hospital ] in Serum or Plasma ID Date Data Source [id number] 11/10/2018 06:04:00 AM [facility] Name Value Range Interpretation Description Data Sup porting Code Source(s) Document(s ) Sodium 135 mmol/L [place] [Moles/volu Hospital me] in Serum or Plasma ID Date Data Source [id number] 11/10/2018 06:04:00 AM [facility] Value Range Interpretation Description Data Sup porting Code Source(s) Document(s ) Glucose 163 mg/dL [place] [Mass/volume Hospital ] in Serum or Plasma ID Date Data Source [id number] 11/06/2018 05:28:00 PM [facility] Name Value Range Interpretation Description Data Sup porting Code Source(s) Document(s ) Lactate 0.8 [place] [Moles/volum mmol/L Hospital e] in Serum or Plasma ID Date Data Source [id number] 11/06/2018 02:18:00 PM [facility] Name Value Range Interpretation Description Data Sup porting Code Source(s) Document(s ) Bacteria No growth [place] identified in Hospital Blood by Culture ID Date Data Source [id number] 11/06/2018 02:18:00 PM [facility] ADA RECOMMENDATIONS: NON-DIABETES: 4.0-6.0% CONTROLLED DIABETES: 6.0-8.0% UNCONTROLLED DIABETE S: UP TO 20%RECOMMENDED ADA RESULT FOR THERAPY: HEMOGLOBIN A1C RESULT LESS FRANK N 7%.NOTE: METHOD CHANGE EFFECTIVE 11/06/14. Name Value Range Interpretation Description Data Sup porting Code Source(s) Document(s ) Hemoglobin 9.1 % [place] A1c/Hemoglobin. Hospital total in Blood ID Date Data Source [id number] 11/06/2018 02:18:00 PM [facility] THERAPEUTIC RANGES:UNFRACTIONATED HEPARI N THERAPY: 60-90 SECONDSARGATROBAN THERAPY: 49-99 SECONDS Name Value Range Interpretation Description Data Sup porting Code Source(s) Document(s ) aPTT in 28.4 s [place] Platelet poor [facility] plasma by Coagulation assay ID Date Data Source [id number] 11/06/2018 02:18:00 PM [facility] Name Value Range Interpretation Description Data Sup porting Code Source(s) Document(s ) Bacteria No growth [place] identified in Hospital Blood by Culture ID Date Data Source [id number] 11/06/2018 02:18:00 PM [facility] Name Value Range Interpretation Description Data Sup porting Code Source(s) Document(s ) C reactive 10.1 mg/L [facility] [Mass/volume ] in Serum or Plasma ID Date Data Source [id number] 11/06/2018 02:18:00 PM [facility] ADA RECOMMENDATIONS: NON-DIABETES: 4.0-6.0% CONTROLLED DIABETES: 6.0-8.0% UNCONTROLLED DIABETE S: UP TO 20%RECOMMENDED ADA RESULT FOR THERAPY: HEMOGLOBIN A1C RESULT LESS FRANK N 7%.NOTE: METHOD CHANGE EFFECTIVE 11/06/14. Name Value Range Interpretation Description Data Sup porting Code Source(s) Document(s ) Hemoglobin 9.1 % [place] A1c/Hemoglobin. Hospital total in Blood ID Date Data Source [id number] 11/06/2018 02:18:00 PM [facility] THERAPEUTIC RANGES:UNFRACTIONATED HEPARI N THERAPY: 60-90 SECONDSARGATROBAN THERAPY: 49-99 SECONDS Name Value Range Interpretation Description Data Sup porting Code Source(s) Document(s ) aPTT in 28.4 s [place] Platelet poor [facility] plasma by Coagulation assay ID Date Data Source [id number] 11/06/2018 02:18:00 PM [facility] THERAPEUTIC RANGE FOR STANDARD ORALANTIC OAGULANT THERAPY: 2.0-3.0THERAPEUTIC RANGE FOR HIGH DOSE ORALANTICOAGULANT THERAPY (MECHANICAL HEARTVALVE REPLACEMENT): 2.5-3.5 Name Value Range Interpretation Description Data Sup porting Code Source(s) Document(s ) INR in Platelet 1.2 [place] poor plasma by Hospital Coagulation assay ID Date Data Source [id number] 11/06/2018 02:18:00 PM EDT [facility] Name Value Range Interpretation Description Data Sup porting Code Source(s) Document(s ) PT panel - 13.6 s [place] Platelet poor [facility] plasma by Coagulation assay ID Date Data Source [id number] 11/06/2018 [facility] Value Range Interpretation Description Data Sup porting Code Source(s) Document(s ) Erythrocyte > 130 [place] sedimentation mm/h Hospital rate by Westergren method Procedure Social History Code Duration Value Status Description Data Source(s ) Smoking 06/23/2019 Never smoked completed Never smoked Dannielle [facility] - 12:46:08 AM EDT tobacco tobacco (finding) [facility] (finding) Center Smoking 06/23/2019 Never smoked completed Never smoked Dannielle Lam al[facility] - 12:46:08 AM EDT tobacco tobacco (finding) [facility] (finding) Center Smoking 06/23/2019 Never smoked completed Never smoked Dannielle Lam al[facility] - 12:46:08 AM EDT tobacco tobacco (finding) [facility] (finding) Center Smoking 06/04/2019 Never smoked completed Never smoked Dannielle Lam alth - 08:41:21 PM EST tobacco tobacco (finding) [facility] (finding) Center Smoking 06/04/2019 Never smoked completed Never smoked [place] [facility] - 08:41:21 PM EST tobacco tobacco (finding) [facility] (finding) Center Smoking 06/04/2019 Never smoked completed Never smoked Dannielle Lam alth - 08:41:21 PM EST tobacco tobacco (finding) [facility] (finding) Center Smoking 06/04/2019 Never smoked completed Never smoked [place] [facility] - 08:41:21 PM EST tobacco tobacco (finding) [facility] (finding) Center Smoking 06/04/2019 Never smoked completed Never smoked [place] [facility] - 08:41:21 PM EST tobacco tobacco (finding) [facility] (finding) Center Smoking 06/04/2019 Never smoked completed Never smoked [place] [facility] - 08:41:21 PM EST tobacco tobacco (finding) [facility] (finding) Center Smoking 06/04/2019 Never smoked completed Never smoked [place] [facility] 05:18:00 PM EST tobacco tobacco (finding) [facility] (finding) Smoking 01/30/2019 Never smoked completed Never smoked [place] 02:59:00 AM EDT tobacco tobacco (finding) [facility] (finding) Smoking 12/28/2018 Never smoked completed Never smoked [place] 12:08:00 AM EDT tobacco tobacco (finding) [facility] (finding) Smoking 12/20/2018 Never smoked completed Never smoked [place] 01:06:00 PM EDT tobacco tobacco (finding) [facility] (finding) Smoking 12/06/2018 Never smoked completed Never smoked [place] 11:52:00 AM EDT tobacco tobacco (finding) [facility] (finding) Smoking 11/14/2018 Never smoked completed Never smoked [place] 09:43:00 PM EDT tobacco tobacco (finding) [facility] (finding) Smoking 11/06/2018 Never smoked completed Never smoked [place] 05:43:00 PM EDT tobacco tobacco (finding) [facility] (finding) Vital Signs ID Date Data Source [id number] Name Value Range Interpretation Description Data Code Source(s) Body 98.5 [degF] 0 - 200 Normal (applies to 98.5 [degF] [facility] temperature non-numeric [facility] Sy[facility] m results) Body 36.9 [place] 0 - 99.9 Normal (applies to 36.9 [place] temperature non-numeric Health Syste m results) Diastolic blood 81 mm[Hg] 0 - 999 Normal (applies to 81 mm[Hg] [facility] pressure non-numeric [facility] System results) Systolic blood 147 mm[Hg] 0 - 999 Above high normal 147 mm[Hg] [facility] pressure [facility] Respiratory 20 0 - 999 Above high normal 20 [place] rate [facility] Heart rate 81 0 - 999 Normal (applies to 81 [place] non-numeric Health System results) Oxygen 99 % 0 - 999 Normal (applies to 99 % [facility] saturation in non-numeric Health Sys tem Arterial blood results) by Pulse oximetry Body surface 2.3 m2 2.3 m2 [facility] area Derived Health Syste m from formula Body mass index 27.7 kg/m2 27.7 kg/m2 [facility] e (BMI) [Ratio] Health Syst em Body weight 103.41 kg 103.41 kg [facility] Body height 193.04 cm 193.04 cm [facility] Glucose 244 mg/dL 65-100 Above high normal 244 mg/dL [place] [Moles/volume] mg/dL Health - in Capillary [place] blood by [facility] Oxygen 98 % 94-100 % Normal (applies to 98 % [place] saturation in non-numeric Health - Blood results) [place] Postductal by [facility] Pulse oximetry Center Diastolic blood 68 mm[Hg] 60-90 Normal (applies to 68 mm[Hg] [place] pressure mmHg non-numeric Health - results) [facility] Systolic blood 120 mm[Hg] 90-130 Normal (applies to 120 mm[Hg] [place] pressure mmHg non-numeric Health - results) [facility] Vital Signs Dr. Cl Spicer Reported To [facility] Oxygen therapy [place] [Minimum Data Health - Set] [facility] Mean blood 133 mm[Hg] 133 mm[Hg] [place] pressure by Health - Noninvasive [facility] Oxygen 99 % 94-100 % Normal (applies to 99 % [place] saturation in non-numeric Health - Blood results) [place] Postductal by [facility] Pulse oximetry Center Diastolic blood 106 mm[Hg] 60-90 106 mm[Hg] [place] pressure mmHg [facility] Systolic blood 186 mm[Hg] 90-130 186 mm[Hg] [place] pressure mmHg [facility] Respiratory 18 br/min 14-20 Normal (applies to 18 br/min [place] rate br/min non-numeric Health - results) [facility] Heart rate 98 bpm 60-100 Normal (applies to 98 bpm [place] bpm non-numeric Health - results) [facility] Oral 97.1 [degF] 96.4-99.1 Normal (applies to 97.1 [degF] [place] temperature DegF non-numeric Health - results) [facility] Glucose 178 mg/dL 65-100 Above high normal 178 mg/dL [place] [Moles/volume] mg/dL Health - in Capillary [place] blood by Hospital [facility] Glucose 178 mg/dL 65-100 Above high normal 178 mg/dL [place] [Moles/volume] mg/dL Health - in Capillary [place] blood by [facility] Glucometer [place] Respiratory 18 br/min 14-20 Normal (applies to 18 br/min [place] rate br/min non-numeric Health - results) [facility] Oral 98.2 [degF] 96.4-99.1 Normal (applies to 98.2 [degF] [place] temperature DegF non-numeric Health - results) [facility] Oxygen 99 % 94-100 % Normal (applies to 99 % [place] saturation in non-numeric Health - Blood results) [place] Postductal by [facility] Pulse oximetry Center Heart rate 97 bpm 60-100 Normal (applies to 97 bpm [place] bpm non-numeric Health - results) [facility] Mean blood 123 mm[Hg] 123 mm[Hg] [place] pressure by Health - Noninvasive [facility] Diastolic blood 94 mm[Hg] 60-90 94 mm[Hg] [place] pressure mmHg [facility] Systolic blood 180 mm[Hg] 90-130 Above high normal 180 mm[Hg] [place] pressure mmHg [facility] Mean blood 125 mm[Hg] 125 mm[Hg] [place] pressure by Health Noninvasive [facility] Oxygen therapy [place] [Minimum Data Health - Set] [facility] Blood pressure [place] measurement Health - site [facility] Respiratory 18 br/min 14-20 Normal (applies to 18 br/min [place] rate br/min non-numeric Health - results) [facility] Heart rate 103 bpm 60-100 Above high normal 103 bpm [place] bpm [facility] Oral 98.7 [degF] 96.4-99.1 Normal (applies to 98.7 [degF] [place] temperature DegF non-numeric Health - results) [facility] Oxygen Therapy [place] Activity [facility] Oxygen therapy [place] [Minimum Data Health - Set] [facility] Body mass index 27.38 kg/m2 27.38 kg/m2 [place] (BMI) [Ratio] [facility] Body weight 102 kg 102 kg [place] Measured [facility] Body height 193 cm 193 cm [place] [facility] Body mass index 27.38 kg/m2 27.38 kg/m2 [place] (BMI) [Ratio] [facility] Glucose 279 mg/dL 65-100 Above high normal 279 mg/dL [place] [Moles/volume] mg/dL Health - in Capillary [place] blood by Hospital Glucometer [place] Oxygen therapy [place] [Minimum Data Health - Set] [facility] Mean blood 110 mm[Hg] 110 mm[Hg] [place] pressure by Health - Noninvasive [facility] Oxygen therapy [place] [Minimum Data Health - Set] [facility] Blood pressure [place] measurement [facility] Diastolic blood 83 mm[Hg] 60-90 Normal (applies to 83 mm[Hg] [place] pressure mmHg non-numeric Health - results) [facility] Systolic blood 165 mm[Hg] 90-130 Above high normal 165 mm[Hg] [place] pressure mmHg [facility] Respiratory 18 br/min 14-20 Normal (applies to 18 br/min [place] rate br/min non-numeric Health - results) [facility] Heart rate 64 bpm 60-100 Normal (applies to 64 bpm [place] bpm non-numeric Health - results) [facility] Oral 98.6 [degF] 96.4-99.1 Normal (applies to 98.6 [degF] Nu[place] n[place] temperature DegF non-numeric Health - results) [facility] Glucose 130 mg/dL 65-100 Above high normal 130 mg/dL [place] [Moles/volume] mg/dL Health - in Capillary [place] blood by [facility] Glucose 130 mg/dL 65-100 Above high normal 130 mg/dL [place] [Moles/volume] mg/dL Health - in Capillary [place] blood by [facility] Glucometer [place] Respiratory 18 br/min 14-20 Normal (applies to 18 br/min [place] rate br/min non-numeric Health - results) [facility] Oral 98.2 [degF] 96.4-99.1 Normal (applies to 98.2 [degF] Nu[place] n[place] temperature DegF non-numeric Health - results) [facility] Oxygen 99 % 94-100 % Normal (applies to 99 % [place] saturation in non-numeric Health - Blood results) [place] Postductal by [facility] Pulse oximetry Center Heart rate 60 bpm 60-100 Normal (applies to 60 bpm [place] bpm non-numeric Health - results) [facility] Mean blood 92 mm[Hg] 92 mm[Hg] [place] pressure by Health - Noninvasive [facility] Diastolic blood 75 mm[Hg] 60-90 Normal (applies to 75 mm[Hg] [place] pressure mmHg non-numeric Health - results) [facility] Systolic blood 125 mm[Hg] 90-130 Normal (applies to 125 mm[Hg] Nu [place] pressure mmHg non-numeric Health - results) [facility] Blood pressure [place] measurement Health - site [facility] Oxygen therapy [place] [Minimum Data Health - Set] [facility] Diastolic blood 84 mm[Hg] 60-90 Normal (applies to 84 mm[Hg] [place] pressure mmHg non-numeric Health - results) [facility] Systolic blood 154 mm[Hg] 90-130 Above high normal 154 mm[Hg] [place] pressure mmHg Health - [facility] Mean blood 92 mm[Hg] 92 mm[Hg] [place] pressure by Health - Noninvasive [facility] Oxygen 99 % 94-100 % Normal (applies to 99 % [place] saturation in non-numeric Health - Blood results) [place] Postductal by [facility] Pulse oximetry Center Respiratory 18 br/min 14-20 Normal (applies to 18 br/min [place] rate br/min non-numeric Health - results) [facility] Heart rate 74 bpm 60-100 Normal (applies to 74 bpm [place] bpm non-numeric Health - results) [facility] Oral 99.3 [degF] 96.4-99.1 Above high normal 99.3 [degF] [place] temperature DegF [facility] Oxygen 98 % 94-100 % Normal (applies to 98 % [place] saturation in non-numeric Health - Blood results) [place] Postductal by [facility] Pulse oximetry Center Vital Signs Dr. Haile. Dr. Haile. Dannielle Reported To Additional dose Additional dose Hea lth - of Hydrazaline of Hydrazaline [place] 25mg po ordered 25mg po ordered [facility] Blood pressure [place] measurement [facility] Vital Signs PA Cortez Parchen PA Cortez Parchen [place] Reported To [facility] Body mass index 27.79 kg/m2 27.79 kg/m2 [place] (BMI) [Ratio] [facility] Daily Weight 103.5 kg 103.5 kg [place] [facility] Body height 193 cm 193 cm [place] [facility] Heart rate 105 bpm 60-100 Above high normal 105 bpm [place] Peripheral bpm Health - artery by [facility] Heart rate 100 bpm 60-100 Normal (applies to 100 bpm [place] Peripheral bpm non-numeric Health - artery by results) [facility] Heart rate 96 bpm 60-100 Normal (applies to 96 bpm [place] Peripheral bpm non-numeric Health - artery by results) [facility] Body weight 103.5 kg 103.5 kg [place] Measured [facility] Body height 193 cm 193 cm [place] [facility] Inhaled oxygen 2 L/min 2 L/min [place] flow rate [facility] Inhaled oxygen 2 L/min 2 L/min [place] flow rate [facility] Inhaled oxygen 2 L/min 2 L/min [place] flow rate [facility] Oxygen Therapy [place] Activity [facility] Body mass index 27.33 kg/m2 27.33 kg/m2 [place] (BMI) [Ratio] [facility] Body weight 101.82 kg 101.82 kg [place] Measured [facility] Body height 193 cm 193 cm [place] [facility] Body mass index 27.33 kg/m2 27.33 kg/m2 [place] (BMI) [Ratio] [facility] Diastolic blood 92 mm[Hg] 92 mm[Hg] [facility] ins pressure Hospital Systolic blood 202 mm[Hg] 202 mm[Hg] [facility] ns pressure Hospital Respiratory 18 /min 18 /min [facility] rate Hospital Heart rate 107 /min 107 /min [facility] Body 37.20342 Fide 37.03110 Fide [facility] temperature Hospital Body 99.1 [degF] 99.1 [degF] [facility] Body mass index 28.0 kg/m2 28.0 kg/m2 [facility] ins (BMI) [Ratio] Hospital Body weight 224.47 [lb_av] 224.47 [lb_av] [facility] Body 37 Fide 0 - 99.9 Normal (applies to 37 Fide [place] temperature non-numeric Health Syste m results) Body 98.7 [degF] 0 - 200 Normal (applies to 98.7 [degF] [facility] temperature non-numeric Health Syste m results) Diastolic blood 97 mm[Hg] 0 - 999 Above high normal 97 mm[Hg] [facility] Systolic blood 166 mm[Hg] 0 - 999 Above high normal 166 mm[Hg] [facility] pressure [facility] Oxygen 99 % 0 - 999 Normal (applies to 99 % [place] saturation in non-numeric Health Sys tem Arterial blood results) by Pulse oximetry Respiratory 17 0 - 999 Normal (applies to 17 [place] [facility] rate non-numeric Health System results) Heart rate 88 0 - 999 Normal (applies to 88 [place] non-numeric Health System results) Body surface 2.2 m2 2.2 m2 [facility] area Derived Health Syste m from formula Body mass index 27.4 kg/m2 27.4 [facility] Syst em Body weight 99.79 kg 99.79 kg [facility] Body height 190.5 cm 190.5 cm [facility] Body surface 2.3 m2 2.3 m2 [facility] area Derived Health Syste m from formula Body mass index 28.4 kg/m2 28.4 kg/m2 [place] (BMI) [Ratio] Health Syst em Body weight 103.41 kg 103.41 kg [facility] Body height 190.5 cm 190.5 cm [facility] Body 97.8 [degF] 0 - 200 Normal (applies to 97.8 [degF] [facility] temperature non-numeric Health Syste results) Body 36.5 Fide 0 - 99.9 Normal (applies to 36.5 Fide [facility] Syste results) Diastolic blood 83 mm[Hg] 0 - 999 Normal (applies to 83 mm[Hg] [facility] pressure non-numeric Health System results) Systolic blood 151 mm[Hg] 0 - 999 Above high normal 151 mm[Hg] [facility] Oxygen 100 % 0 - 999 Normal (applies to 100 % [facility] saturation in non-numeric Health s tem Arterial blood results) by Pulse oximetry Respiratory 20 0 - 999 Above high normal 20 [facility] iore rate Health System Heart rate 95 0 - 999 Normal (applies to 95 [place] non-numeric Health System results) Body 36.5 Fide 0 - 99.9 Normal (applies to 36.5 Fide [facility] temperature non-numeric Health Syste results) Body 97.8 [degF] 0 - 200 Normal (applies to 97.8 [degF] [facility] temperature non-numeric Health Syste results) Diastolic blood 83 mm[Hg] 0 - 999 Normal (applies to 83 mm[Hg] [facility] pressure non-numeric Health System results) Systolic blood 137 mm[Hg] 0 - 999 Normal (applies to 137 mm[Hg] [facility] pressure non-numeric Health System results) Oxygen 98 % 0 - 999 Normal (applies to 98 % [facility] saturation in non-numeric Health s tem Arterial blood results) by Pulse oximetry Respiratory 17 0 - 999 Normal (applies to 17 [place] janny rate non-numeric Health System results) Heart rate 88 0 - 999 Normal (applies to 88 [place] non-numeric Health System results) Body surface 2.3 m2 2.3 m2 [facility] Health Syste from formula Body mass index 28.4 kg/m2 28.4 kg/m2 [facility] e (BMI) [Ratio] Health Syst em Body weight 103.41 kg 103.41 kg [facility] Body height 190.5 cm 190.5 cm [facility] Body surface 2.3 m2 2.3 m2 [place] area Derived Health Syste m from formula Body mass index 28.2 kg/m2 28.2 kg/m2 [facility] e (BMI) [Ratio] Health Syst em Body weight 102.51 kg 102.51 kg [facility] Body height 190.5 cm 190.5 cm [facility] Body 98 [degF] 0 - 200 Normal (applies to 98 [degF] [facility] temperature non-numeric Health Syste m results) Body 36.6 Fide 0 - 99.9 Normal (applies to 36.6 Fide [facility] temperature non-numeric Health Syste m results) Diastolic blood 70 mm[Hg] 0 - 999 Normal (applies to 70 mm[Hg] [facility] pressure non-numeric Health System results) Systolic blood 120 mm[Hg] 0 - 999 Normal (applies to 120 mm[Hg] [facility] pressure non-numeric Health System results) Oxygen 99 % 0 - 999 Normal (applies to 99 % [facility] iore saturation in non-numeric Health Sys [facility] Arterial blood results) by Pulse oximetry Respiratory 17 0 - 999 Normal (applies to 17 [place] [facility]anny rate non-numeric Health System results) Heart rate 86 0 - 999 Normal (applies to 86 [place] non-numeric Health System results) Diastolic blood 82 mm[Hg] 82 mm[Hg] [facility] pressure Hospital Systolic blood 145 mm[Hg] 145 mm[Hg] [facility] pressure Hospital Respiratory 19 /min 19 /min [facility] Heart rate 95 /min 95 /min [facility] Body 36.74940 Fide 36.81153 Fide [facility] temperature [facility] Body 98.1 [degF] 98.1 [degF] [facility] Body mass index 27.0 kg/m2 27.0 kg/m2 [facility] ins (BMI) [Ratio] Hospital Body weight 221.45 [lb_av] 221.45 [lb_av] [facility] Diastolic blood 76 mm[Hg] 76 mm[Hg] [facility] pressure Hospital Systolic blood 125 mm[Hg] 125 mm[Hg] [facility] pressure Hospital Respiratory 18 /min 18 /min [facility] Heart rate 83 /min 83 /min [facility] Body 36.43098 Fide 36.77944 Fide [facility] temperature Hospital Body 97.6 [degF] 97.6 [degF] [facility] Body mass index 28.0 kg/m2 28.0 kg/m2 [facility] ins (BMI) [Ratio] Hospital Body weight 220.46 [lb_av] 220.46 [lb_av] [facility] Diastolic blood 80 mm[Hg] 80 mm[Hg] [facility] ins pressure Hospital Systolic blood 149 mm[Hg] 149 mm[Hg] [facility] Respiratory 17 /min 17 /min [facility] Heart rate 91 /min 91 /min [facility] Body 36.39347 Fide 36.43348 Fide [facility] Body 98.2 [degF] 98.2 [degF] [facility] Body mass index 29.0 kg/m2 29.0 kg/m2 [facility] ins (BMI) [Ratio] Hospital Body weight 229.28 [lb_av] 229.28 [lb_av] [facility] Diastolic blood 80 mm[Hg] 80 mm[Hg] [facility] pressure Hospital Systolic blood 138 mm[Hg] 138 mm[Hg] [facility] pressure Hospital Respiratory 18 /min 18 /min [facility] Heart rate 100 /min 100 /min [facility] Body 36.48455 Fide 36.97574 Fide [facility] Body 97.8 [degF] 97.8 [degF] [facility] Body mass index 29.0 kg/m2 29.0 kg/m2 [facility] (BMI) [Ratio] Hospital Body weight 226.48 [lb_av] 226.48 [lb_av] [facility] Diastolic blood 81 mm[Hg] 81 mm[Hg] [facility] pressure Hospital Systolic blood 134 mm[Hg] 134 mm[Hg] [facility] Hospital Respiratory 18 /min 18 /min [facility] Heart rate 98 /min 98 /min [facility] Body 36.52803 Fide 36.30893 Fide [facility] Hospital Body 98.5 [degF] 98.5 [degF] [facility] Body mass index 29.0 kg/m2 29.0 kg/m2 [facility] (BMI) [Ratio] Hospital Body weight 238 [lb_av] 238 [lb_av] [facility] Diastolic blood 88 mm[Hg] 88 mm[Hg] [facility] pressure Hospital Systolic blood 141 mm[Hg] 141 mm[Hg] [facility] ns pressure Hospital Respiratory 18 /min 18 /min [facility] rate Hospital Heart rate 79 /min 79 /min [facility] Body 36.13232 Fide 36.72924 Fide [facility] ns temperature Hospital Body 98.3 [degF] 98.3 [degF] [facility] Body mass index 28.0 kg/m2 28.0 kg/m2 [facility] (BMI) [Ratio] Hospital Body weight 235.50 [lb_av] 235.50 [lb_av] [facility] Patient Treatment Plan of Care Planned Activity Planned Date Details Description Data Source (s) No data available for this [facility] No data available for this [facility] No data available for this [facility] No data available for this [facility] No data available for this [facility] No data available for this [facility] No data available for this [facility] No data available for this [facility] No data available for this [facility] Simethicone 80 MG Chewable 06/25/2019 [facility] - Tablet 09:57:00 AM EDT [facility] Acetaminophen 325 MG Oral 06/25/2019 [facility] Health - Tablet 09:57:00 AM EDT [facility] Lisinopril 20 MG Oral 06/10/2019 [facility] Health - Tablet 09:09:00 AM EST [facility] Metoclopramide 10 MG Oral 06/10/2019 [facility] Health - Tablet 09:09:00 AM EST [facility] Hydralazine Hydrochloride 06/10/2019 [facility] Health - 25 MG Oral Tablet 09:09:00 AM EST [facility] carvedilol 6.25 MG Oral 06/10/2019 [facility] - Tablet 09:09:00 AM EST [facility] metformin 06/05/2019 [facility] - 01:15:00 [facility]chloride 03/12/2019 [facility] 50 MG Oral Tablet 05:14:09 AM EST System Lorazepam 1 MG Oral Tablet 03/08/2019 [facility] [Ativan] 08:37:45 PM EST System Lorazepam 1 MG Oral Tablet 02/24/2019 [facility] [Ativan] 02:02:37 AM EST System Protonix [facility] Metformin [facility]
--- NOTE | 2020-01-06 23:25 | PDOC ---
History of Present Illness - General Chief Complaint: Nausea/Vomiting Stated Complaint: ADOMINAL AND BODY PAIN Time Seen by Provider: 01/06/20 23:17 History Source: Patient - History of Present Illness Initial Comments: 01/07/20 03:18 54M w/hx NIDDM, HTN, gastroparesis, R BKA s/p osteomyelitis p/w acute onset N/V/abdominal pain. He reports that the pain feels similar to his prior episodes of gastroparesis but more severe. He reports approx x12 dark brown vomiting today and has been unable to tolerate po. He reports that only dilaudid alleviates his pain and that he received it during prior ED evaluations. He denies any allergies, weakness, confusion, chest pain, or sob. Past History - Medical History Allergies/Adverse Reactions: Allergies Allergy/AdvReac Type Severity Reaction Status Date / Time No Known Allergies Allergy Verified 12/04/19 17:17 Home Medications: Ambulatory Orders Pantoprazole Sodium [Protonix -] 40 mg PO DAILY #30 tablet.ec 11/12/19 Sennosides [Senna -] 2 tab PO HS PRN #60 tablet 11/12/19 Acetaminophen [Tylenol .Regular Strength -] 650 mg PO Q4H PRN #90 tablet 12/06/19 Amlodipine Besylate [Norvasc -] 5 mg PO DAILY #30 tablet 12/06/19 Gabapentin [Neurontin -] 300 mg PO TID #90 capsule 12/06/19 Labetalol HCl [Normodyne -] 200 mg PO BID #60 tablet 12/06/19 Metformin HCl [Glucophage] 500 mg PO BID #60 tab 12/06/19 Metoclopramide HCl [Reglan -] 10 mg PO TIDAC #45 tablet 12/06/19 Metoclopramide HCl [Reglan -] 10 mg PO TIDAC 15 Days #45 tablet 12/06/19 Ondansetron [Zofran *Odt*] 4 mg SL Q6H PRN #30 tab 12/06/19 Pantoprazole Sodium [Protonix -] 40 mg PO DAILY #30 tab 12/06/19 Polyethylene Glycol 3350 [Miralax 119 gm Btl -] 17 gm PO TID #1 bottle 12/06/19 COPD: No Diabetes: Yes GI Disorders: Yes (GASTROPARESIS) - Surgical History Orthopedic Surgery: Yes (right bka) - Psycho-Social/Smoking History Smoking History: Never smoked Have you smoked in the past 12 months: No Review of Systems - Review of Systems Able to Perform ROS?: Yes Comments:: 01/07/20 21:00 GENERAL/CONSTITUTIONAL: No fever or chills. No weakness. HEAD, EYES, EARS, NOSE AND THROAT: No change in vision. No ear pain or discharge. No sore throat. CARDIOVASCULAR: No chest pain or shortness of breath RESPIRATORY: No cough, wheezing, or hemoptysis. GASTROINTESTINAL: Nausea, vomiting, abdominal pain. No diarrhea or constipation. GENITOURINARY: No dysuria, frequency, or change in urination. MUSCULOSKELETAL: No joint or muscle swelling or pain. No neck or back pain. SKIN: No rash NEUROLOGIC: No headache, vertigo, loss of consciousness, or change in strength/sensation. ENDOCRINE: No increased thirst. No abnormal weight change HEMATOLOGIC/LYMPHATIC: No anemia, easy bleeding, or history of blood clots. ALLERGIC/IMMUNOLOGIC: No hives or skin allergy. *Physical Exam - Physical Exam 01/07/20 21:00 GENERAL: Awake, alert, and fully oriented, in no acute distress HEAD: No signs of trauma, normocephalic, atraumatic EYES: PERRLA, EOMI, sclera anicteric, conjunctiva clear ENT: Auricles normal inspection, hearing grossly normal, nares patent, oroph arynx clear without exudates. Moist mucosa NECK: Normal ROM, supple, no lymphadenopathy, JVD, or masses LUNGS: No distress, speaks full sentences, clear to auscultation bilaterally HEART: Regular rate and rhythm, normal S1 and S2, no murmurs, rubs or gallops, peripheral pulses normal and equal bilaterally. ABDOMEN: Diffuse mild abdominal tenderness. Soft, normoactive bowel sounds. No guarding, no rebound. No masses EXTREMITIES : Normal inspection, Normal range of motion, no edema. No clubbing or cyanosis NEUROLOGICAL: Cranial nerves II through XII grossly intact. Normal speech, no focal sensorimotor deficits SKIN: Warm, Dry, normal turgor, no rashes or lesions noted ED Treatment Course - LABORATORY CBC & Chemistry Diagram: 01/07/20 09:15 01/07/20 09:15 Medical Decision Making - Medical Decision Making 54M w/hx IDDM, R BKA s/p osteomyelitis, multiple prior episodes of gastroparesis p/w one day of acute onset x12 dark brown emesis, nausea likely representing diabetic gastroparesis. Plan: Reg[facility] LR CBC CMP BGM EKG Dispo: Pending reassessment, admit if intractable pain/vomiting --- IV access difficult, multiple attempts by patient's nurse as well as myself. Ultrasound guided IVs x2 returned blood but immediately were blown when flushed. R sided EJ placed and secured. --- Patient requesting dilaudid for pain control. Case discussed with attending physician, no indication for escalation of pain control plan to dilaudid at this time. --- On reassessment, patient still endorsing pain and continues to request dilaudid. Plan for admission for intractable pain, vomiting. Discharge - Discharge Information Problems reviewed: Yes Clinical Impression/Diagnosis: Diabetic gastroparesis Intractable vomiting Qualifiers: Vomiting type: unspecified Nausea presence: unspecified Qualified Code(s): R11.10 - Vomiting, unspecified Condition: Stable - Admission Yes - Follow up/Referral - Patient Discharge Instructions - Post Discharge Activity
[2020-01-06] MEDS ORDERED: ACETAMINOPHEN 1000 MG/100 ML VIAL (NON FORMULARY) IVPB ONE (23:51)
[2020-01-06] MEDS ORDERED: METOCLOPRAMIDE HCL INJECTION 10 MG/2 ML VIAL IVPUSH ONE (23:51)
[2020-01-06] MEDS ORDERED: FAMOTIDINE 20 MG/50 ML IVPB 20 MG/50 ML MG IVPB ONE (23:52)
[2020-01-06] MEDS ORDERED: LACTATED RINGERS SOLUTION 1000 ML INFUS.BAG IV ONE (23:52)
--- NOTE | 2020-01-06 23:58 | PDOC ---
Documentation entered by Jesse Brewer SCRIBE, acting as scribe for Myra Farmer MD. Myra Farmer MD: This documentation has been prepared by the scribe, Jesse Osborne SCRIBE, under my direction and personally reviewed by me in its entirety. I confirm that the documentation accurately reflects all work, treatment, procedures, and medical decision making performed by me. Attending Attestation - Resident Resident Name: Ofelia Fayan - ED Attending Attestation I have performed the following: I have examined & evaluated the patient, The case was reviewed & discussed with the resident, I agree w/resident's findings & plan, Exceptions are as noted - HPI HPI: 01/06/20 23:48 The patient is a 54 year old male with a significant past medical history of NIDDM, HTN, gastroparesis, and osteomyelitis s/p right BKA (01/2019) who presents to the emergency department for evaluation of nausea/ vomiting that began this morning. The patient reports 12 episodes of bile and dark blood in emesis and associated abdominal pain. He endorses similar episodes in the past, less severe than this one. He notes following up with GI since his last episode in November. The patient denies chest/back pain, cough, and shortness of breath. Denies fever, chills, or any symptoms. Denies any other symptoms. Allergies: NKA Surgical Hx: right bka (01/2019) PCP: Dr Giles - Physicial Exam PE: 01/06/20 23:24 GENERAL: Well developed, well nourished. Awake and alert. No acute distress. HEENT: Normocephalic, atraumatic. PERRLA, EOMI. No conjunctival pallor. NECK: Supple. Full ROM. No JVD. CARDIOVASCULAR: Regular rate and rhythm. No murmurs, rubs, or gallops. Distal pulses are 2+ and symmetric. PULMONARY: No evidence of respiratory distress. Lungs clear to auscultation bilaterally. ABDOMINAL: Discomfort to deep palpation but no rebound MUSCULOSKELETAL: no edema EXTREMITIES: No cyanosis. No clubbing. No edema. No calf tenderness. SKIN: Warm and dry. Normal capillary refill. No rashes. No jaundice. NEUROLOGICAL: Alert, awake, appropriate. 01/07/20 01:35 01/07/20 01:43 - Medical Decision Making 01/07/20 01:37 54 yo male who has been here 4 times previously this year for diabetic gastroparesis returns with c/o abdominal discomfort and nausea and vomiting His previous ct scan abdomen/pelvis done this November did not reveal acute abd pathology He has had several GI consultations this year 01/07/20 01:44 plan IVF,reglan,labs pending Discharge - Discharge Information Problems reviewed: Yes Clinical Impression/Diagnosis: Diabetic gastroparesis Intractable vomiting Qualifiers: Vomiting type: unspecified Nausea presence: unspecified Qualified Code(s): R11.10 - Vomiting, unspecified Condition: Stable Disposition: HOME - Follow up/Referral - Patient Discharge Instructions - Post Discharge Activity
[2020-01-07] MEDS ORDERED: METOCLOPRAMIDE HCL INJECTION 10 MG/2 ML VIAL ONE
[2020-01-07] MEDS ORDERED: FAMOTIDINE 20 MG/50 ML IVPB 20 MG/50 ML MG IVPB ONE
[2020-01-07] MEDS ORDERED: ACETAMINOPHEN INJECTION 100 ML IVPB ONE
[2020-01-07 00:42] LABS: HEMATOCRIT 38.7 % (35.4-49); HEMOGLOBIN 12.4 GM/dL (11.7-16.9); MCH 25.4 pg (25.7-33.7); MCHC 31.9 g/dl (32.0-35.9); MEAN CELL VOLUME 79.4 fl (80-96); MEAN PLT VOLUME 8.7 fl (7.5-11.1); PLATELET COUNT 272 K/MM3 (134-434); RBC 4.87 M/mm3 (4.00-5.60); RDW 16.9 % (11.9-15.9)
[2020-01-07 00:53] LABS: INR 0.91 (0.83-1.09); PROTHROMBIN TIME (PATIENT) 10.7 SEC (9.7-13.0)
[2020-01-07 01:10] LABS: ALBUMIN 4.2 g/dl (3.4-5.0); ALK PHOS 140 U/L (45-117); ANION GAP 11 MMOL/L (8-16); BILIRUBIN,TOTAL 0.5 mg/dL (0.2-1); BLOOD UREA NITROGEN 14.8 mg/dL (7-18); CALCIUM 10.1 mg/dL (8.5-10.1); CHLORIDE 103 mmol/L (98-107); CO2 22 mmol/L (21-32); CREATININE 1.8 mg/dL (0.55-1.3); GLUCOSE,RANDOM 172 mg/dL (74-106); LIPASE 41 U/L (73-393); POTASSIUM 4.8 mmol/L (3.5-5.1); SGOT/AST 30 U/L (15-37); SGPT/ALT 24 U/L (13-61); SODIUM 136 mmol/L (136-145); TOT PROT 8.9 g/dl (6.4-8.2)
[2020-01-07 01:38] LABS: ACTIVATED PTT 16.6 SECONDS (25.2-36.5)
[2020-01-07 02:13] LABS: PLATELET ESTIMATE NORMAL
--- NOTE | 2020-01-07 03:29 | PN ---
Teaching Attending Note Name of Resident: Ruth Fuentes ATTENDING PHYSICIAN STATEMENT I saw and evaluated the patient. I reviewed the resident's note and discussed the case with the resident. I agree with the resident's findings and plan as documented. SUBJECTIVE: Patient is a 54 year old man with a PMH of NIDDM, HTN, ?Gastroparesis (multiple admissions for nausea/vomiting/abdominal pain), Osteomyelitis (s/p right BKA - 01/2019) and Right retinal detachment who presents to the ER with complaint of nausea, vomiting and abdominal pain that began this morning. The patient reports 12 episodes of bile and dark blood in emesis and associated abdominal pain. This is his [facility]th admission to [facility] this year for similar symptoms. [facility] ? a polyp was removed and "tear was bonded". He had a CT scan of abdomen/pelvis without contrast on 11/09/2019 that was negative. Patient not taking prescribed antihypertensive drugs - feels his BP is high only when he is in the hospital. Patient denies chest pain, shortness of breath, headache, palpitations, dizziness, fever, chills, diarrhea, constipation, dysuria, frequency, urgency, melena, hematochezia or hematuria. Denies alcohol, tobacco or illicit drug use. No sick contacts or recent travels. Patient has a family history of breast cancer in mother. OBJECTIVE: Alert Vital Signs Period Temp Pulse Resp BP Sys/[place] Pulse Ox Last 24 Hr 98 F 105 20 165/101 98 HEENT: No Jaundice, eye redness or discharge, PERRLA, EOMI. Normocephalic, atraumatic. External ears are normal and hearing is grossly intact. No nasal discharge. Neck: Supple, nontender. No palpable adenopathy or thyromegaly. No JVD Chest: Good effort. Clear to auscultation and percussion. Heart: Regular. No S3, rub or murmur Abdomen: Not distended, soft, nontender and no HSM. No rebound or guarding. Normal bowel sounds. Ext: Peripheral pulses intact. No leg edema. Skin: Warm and dry. No petechiae, rash or ecchymosis. Neuro: Alert. Oriented x3. CN 2-12 grossly intact. Sensation grossly intact in all four extremities and DTR are symmetric. Psych: Appropriate mood and affect. Good insight. Home Medications Medication Instructions Recorded Pantoprazole Sodium [Protonix -] 40 mg PO DAILY #30 tablet.ec 11/12/19 Sennosides [Senna -] 2 tab PO HS PRN #60 tablet 11/12/19 Acetaminophen [Tylenol .Regular 650 mg PO Q4H PRN #90 tablet 12/06/19 Strength -] Amlodipine Besylate [Norvasc -] 5 mg PO DAILY #30 tablet 12/06/19 Gabapentin [Neurontin -] 300 mg PO TID #90 capsule 12/06/19 Labetalol HCl [Normodyne -] 200 mg PO BID #60 tablet 12/06/19 Metformin HCl [Glucophage] 500 mg PO BID #60 tab 12/06/19 Metoclopramide HCl [Reglan -] 10 mg PO TIDAC #45 tablet 12/06/19 Metoclopramide HCl [Reglan -] 10 mg PO TIDAC 15 Days #45 tablet 12/06/19 Ondansetron [Zofran *Odt*] 4 mg SL Q6H PRN #30 tab 12/06/19 Pantoprazole Sodium [Protonix -] 40 mg PO DAILY #30 tab 12/06/19 Polyethylene Glycol 3350 [Miralax 17 gm PO TID #1 bottle 12/06/19 119 gm Btl -] Abnormal Lab Results 01/07/20 01/07/20 01/07/20 00:25 00:25 00:25 MCV 79.4 L MCH 25.4 L MCHC 31.9 L RDW 16.9 H Nucleated RBC % 1 H PTT (Actin FS) 16.6 L Creatinine 1.8 H Random Glucose 172 H Lactic Acid Alkaline Phosphatase 140 H Total Protein 8.9 H Lipase 41 L 01/07/20 00:25 MCV MCH MCHC RDW Nucleated RBC % PTT (Actin FS) Creatinine Random Glucose Lactic Acid 2.4 H* Alkaline Phosphatase Total Protein Lipase Current Medications Generic Name Dose Route Start Last Admin Trade Name Freq PRN Reason Stop Dose Admin Hydromorphone HCl 1 mg 01/07/20 05:19 Dilaudid Vial - IVPUSH Q4H PRN PAIN LEVEL 7 - 10 Sodium Chloride 1,000 mls @ 100 mls/hr 01/07/20 06:00 Normal Saline - IV 01/07/20 15:59 ASDIR LUCY Insulin Aspart 1 vial 01/07/20 07:00 Novolog Vial Sliding Scale - SQ ACHS [facility] Protocol Metoclopramide HCl 10 mg 01/07/20 06:02 Reglan Injection - IVPUSH Q8H PRN NAUSEA AND/OR VOMITING Pantoprazole Sodium 40 mg 01/07/20 10:00 Protonix Iv IVPUSH DAILY [facility] ASSESSMENT AND PLAN: 1. ?Diabetic gastroparesis - Will treat with IV Reglan 10 mg q 8 hours, IV Protonix 40 mg q 24 hours use IV Dilaudid for pain control and continue IV LR. Lactic acidosis likely due to vomiting and leukocytosis may be due to stress, but will get CXR and urinalysis STAT to rule out infection. Consult GI. Will get records from his GI doctor - ?Dr. Joe - to ascertain whether he ever had gastric emptying studies. EKG shows sinus tachycardia at 112/minute and QTc 455, T wave inversion in aVL with no significant acute ischemic ST changes. Not significantly changed compared to prior EKG. Initial troponin is negative. Will avoid drugs that may prolong QTc. Viral testing for COVID-19 ordered and patient placed on airborne, droplet and contact isolation. Will continue comprehensive care for all of patients comorbid conditions. 2. Uncontrolled DM For now, we will hold the home diabetes drugs and implement sliding scale insulin regimen. Provide comprehensive diabetes care with patient teaching and counseling about the importance of adherence to prescribed diabetes regimen, euglycemia, eye care and foot care. 3. CKD with superimposed LIZA Likely dehydrated. Has DM and proteinuria - unclear why he is not on an ACEI or ARB. Will hydrate, monitor urine output and consult Nephrology. Avoid nephrotoxic agents such as NSAIDS, aminoglycosides, contrast dyes and certain Alternative medicine products. 4. Hypertension Will need ambulatory BP monitoring to rule out "White coat" hypertension. Will restart the prescribed outpatient antihypertensive drugs and add Lisinopril 20 mg q HS tomorrow after LIZA is corrected. Subsequently, will revise regimen to ensure [id number] excellent BP control - add HCTZ 12.5 mg q am before discharge. Patient counseled on the injurious effects of uncontrolled hypertension. Nonpharmacologic measures to control hypertension like weight loss, salt restriction and exercise stressed. Importance of adherence to treatment regimen and attainment of normotension emphasized. 5. DVT prophylaxis - Heparin 5000u sq tid. 6. Advance directives - Full code
--- OUTSIDE RECORDS SUMMARY | 2020-01-07 04:04 | XMS ---
:1965 [facility] Organization [facility] Care Team Providers Name Role Phone [...] R Unavailable Unavailable Ross, D Unavailable Unavailable Adin, TRUCK CLEANER Unavailable Unavailable Arbolino Unavailable Unavailable Gotlieb, M [...] A Unavailable Unavailable MD Dinorah Unavailable Unavailable Bokoshe, L Unavailable Unavailable Close, M Unavailable Unavailable [...] is protected by Article 27-F of the [facility] Public Health law. If you continue you may haveaccess to information: Regarding HIV / AIDS; Provided by facilities licensed or operated by the [facility] Office of Mental Health; or Provided by the [facility] Office for People With Developmental Disabilities. If such information is present, then the following [facility] mandated warning applies: This information has been [...] law may result in a fine or assisted sentence or both. A general authorization for the release of medical or other information is NOT sufficient authorization for further disclosure. Advance Directives Directive Description Background Check Coordinator Party Plan Demonstrator Status Observation Data S ource(s) Description Advance No completed [place] [facility] Advance No [facility] [place] [facility] [facility] Advance Yes completed [place] [facility] Allergies and Adverse Reactions Type Description Substance Reaction Status Data Source(s ) 1 SIMON SEED SIMON SEED Nausea / Vomiting NEXTGEN (moderate) 3 ([facility]) 1 sesame oil sesame oil Itching (mild) NEXTGEN ([facility] ) Food allergy SESAME OIL SESAME OIL [facility] Drug allergy Dilaudid Dilaudid exacerbate [facility] Drug allergy No Known No Known [facility] Allergies Allergies [facility] Allergy to Allergy to No known drug NETSMART substance substance allergy ([place] ([facility]) [facility]) simon seed simon seed VOMITING [facility] Food allergy sesame seed sesame seed ANAPHYLAXIS SV [facility] Food allergy simon seed simon seed [facility] on Food allergy No Known Food No Known Food West[facility] angela Allergies Allergies [facility] Drug allergy sesame seed sesame seed [facility] on Drug allergy No Known Drug No Known Drug West[facility] angela Allergies Allergies [facility] on Drug allergy No Known No Known [place] Allergies Allergies [facility] Corporati on [id number] Sesame Unknown Active [facility] [id number] Seeds Anaphylaxis Active [facility] simon seeds, sesame seeds Encounters Encounter Providers Location Date Indications Data Source(s ) Outpatient Attender: Shanon 01/01/2020 NEXTGEN ([facility] ZakiReferrer: 11:26:00 AM Medic al - [place] [facility]) Outpatient Attender: Shanon 12/31/2019 NEXTGEN ([facility] Zaki 11:08:00 AM Medical - [facility] ) Outpatient Attender: Shanon 12/22/2019 NEXTGEN ([facility] ZakiReferrer: 04:48:00 PM Medic al [place] Shanon [facility] ) Outpatient Attender: Shanon 12/11/2019 NEXTGEN ([facility] ZakiReferrer: 03:16:00 PM Medic al - [place] Shanon [facility] ) Outpatient Attender: Perico 12/03/2019 NEXTGEN (C daphniemoabdirahman CervantesReferrer: 08:00:00 AM Medica l - [place] Shanon [facility]) Outpatient Attender: Merrick 11/28/2019 NEXTGEN ([facility] LaurenyReferrer: 01:45:00 PM Medi beata [place] Shanon [facility]) Outpatient Attender: Shanon 11/03/2019 NEXTGEN ([facility] HollanderReferrer: 03:15:00 PM Medic al - [place] [facility]) Outpatient Attender: Parantap 11/03/2019 NEXTGE N ([facility] Joe 02:28:00 PM Medical - [place] [facility]) Outpatient Attender: Shanon 11/03/2019 NEXTGEN ([facility] Zaki 12:54:00 PM Medical - [place] [facility]) Outpatient Attender: Shanon 10/31/2019 NEXTGEN ([facility] HollanderReferrer: 02:54:00 PM Medic al - [place] [facility]) Outpatient Attender: Shanon 10/30/2019 NEXTGEN ([facility] JohannaanderReferrer: 04:46:00 PM Medic al - [place] [facility]) Outpatient Attender: Shanon 10/30/2019 NEXTGEN ([facility] Zaki 11:30:00 AM Medical - [place] [facility]) Outpatient Attender: Shanon 10/29/2019 NEXTGEN ([facility] JohannaanderAttender: 03:30:00 PM Medic al - [place] Horacio [facility]) KanoffReferrer: Shanon Haines Outpatient Attender: Shanon 10/28/2019 NEXTGEN ([facility] HollanderReferrer: 10:47:00 AM Medic al - [place] [facility]) Outpatient Attender: Luz 10/28/2019 NEXTGEN ( [facility] YardeniReferrer: 12:00:00 AM Medical - [place] Luz Yardeni EDT Medical [facility]) Outpatient Attender: Juaquin 10/27/2019 NEXTGEN ([facility] daphniemount Armin 12:55:00 PM Medical - [place] [facility]) Outpatient Attender: Lefty 10/26/2019 NEXTGEN ([facility] Balkir 02:38:00 PM Medical [facility]) Outpatient Attender: Lefty 10/26/2019 NEXTGEN ([facility] BalkirReferrer: 12:00:00 AM [facility]) Outpatient Attender: Juaquin 10/25/2019 NEXTGEN (C daphniemount Armin 03:42:00 PM Medical [facility]) Outpatient Attender: Shanon 10/24/2019 NEXTGEN ([facility] Zaki 02:01:00 PM Medical [facility]) Emergency Attender: Lucy ICU-EMERG 10/23/2019 VOMITING/SOB M[facility] - Eduardo Elainetender: 03:29:00 AM Hospi grazyna Alessandro Osei EDT - MDAttender: Doctor 10/23/2019 Other 04:18:00 PM EDT VOMITING/SOB Patient discharged. Outpatient Attender: Shanon 10/17/2019 12:56:00 [facility] EDT Medical [facility]) Outpatient Attender: Shanon 10/16/2019 03:04:00 PM NEXTGEN ([facility] HollanderReferrer: EDT Medica l [facility]) Outpatient Attender: Merrick 10/16/2019 11:30:00 [facility] ([facility] Damariseferrer: EDT [facility] Outpatient Attender: Shanon 10/15/2019 04:17:00 PM NEXTGEN ([facility] Zaki EDT Medical [facility]) Outpatient Attender: Shanon 10/10/2019 04:04:00 PM NEXTGEN ([facility] Zaki EDT Medical [facility]) Outpatient Attender: Shanon 10/08/2019 09:18:00 AM NEXTGEN ([facility] Zaki EDT Medical [facility]) Outpatient Attender: Juaquin 10/01/2019 01:39:00 PM NEXTGEN ([facility] ArminReferrer: EDT Medical - [facility]) Outpatient Attender: Aracely Joe 10/01/2019 01:17:00 PM NEXTGEN ([facility] EDT Medical - [facility]) Outpatient Attender: Sally 09/30/2019 03:35:00 PM NEXTGEN ([facility] Arbolino EDT Medical - [facility]) Outpatient Attender: Shanon 09/30/2019 08:55:00 AM NEXTGEN ([facility] Zaki EDT Medical - [facility]) Outpatient Attender: Sara 09/27/2019 12:00:00 AM NEXTGEN ([facility] AleahReferrer: Sara ANGULO Tx dical - [facility]) Outpatient Attender: Namrata Mcguire NP 09/26/2019 03:58:00 PM NEXTGEN ([facility] EDT Medical - [facility]) Outpatient Attender: Erasmo 09/25/2019 12:00:00 AM NEXTGEN ([facility] HalbertReferrer: Erasmo EDT M edical - [facility]) Outpatient Attender: Aracely 09/25/2019 12:00:00 AM NEXTGEN ([facility] GuptaReferrer: Parantap [facility] Outpatient Attender: Namrata Mcguire NP 09/24/2019 02:02:00 PM NEXTGEN ([facility] EDT Medical - [facility]) Outpatient Attender: Juaquin Funez 09/24/2019 02:55:00 AM NEXTGEN ([facility] EDT Medical - [facility]) Outpatient Attender: Salvador 09/24/2019 12:00:00 AM NEXTGEN ([facility] PatelReferrer: Salvador EDT Medic al - [facility]) Outpatient Attender: Shanon 09/19/2019 11:30:00 AM NEXTGEN ([facility] HollanderReferrer: EDT Medica l - [facility] Shanon [facility]) Outpatient Attender: Maurice 09/16/2019 01:00:00 PM NEXTGEN ([facility] AliseReferrer: EDT Medica l - [place] [facility]) Outpatient Attender: Juaquin 09/11/2019 10:15:00 AM NEXTGEN ([facility] GamdenissenikReferrer: Juaquin ANGULO Me dical - [place] [facility]) Outpatient Attender: Shanon 09/10/2019 11:01:00 AM NEXTGEN ([facility] Zaki EDT Medical - [facility]) Outpatient Attender: Juaquin 09/09/2019 02:37:00 PM NEXTGEN ([facility] GamarnikReferrer: EDT Medical - [facility]) Outpatient Attender: Sally 09/08/2019 06:23:00 PM NEXTGEN ([facility] Johnolino EDT Medical - [facility]) Outpatient Attender: Erasmo Back 09/08/2019 01:07:00 PM NEXTGEN ([facility] EDT Medical - [facility]) Outpatient Attender: Juaquin 09/08/2019 01:05:00 PM NEXTGEN ([facility] GamarnikReferrer: EDT Medical - [facility]) Outpatient Attender: Erasmo 09/08/2019 12:00:00 AM NEXTGEN ([facility] HaljanetReferrer: Erasmo Pena edical - [facility]) Outpatient Attender: Juaquin Funez 09/07/2019 11:53:00 AM NEXTGEN ([facility] EDT Medical - [facility]) Outpatient Attender: Maurice 09/06/2019 12:44:00 PM NEXTGEN ([facility] Carrero EDT Medical [facility] [place] [facility]) Outpatient Attender: Juaquin 09/06/2019 12:00:00 AM NEXTGEN ([facility] GamdenissenikReferrer: Juaquin ANGULO Tx dical - [facility]) Outpatient Attender: Maurice 09/04/2019 05:15:00 PM NEXTGEN ([facility] Carrero EDT Medical [facility] [place] [facility]) Outpatient Attender: Valente 09/04/2019 12:00:00 AM NEXTGEN ([facility] VerasReferrer: EDT Medical - [facility]) Outpatient Attender: Juaquin 09/03/2019 12:53:00 PM NEXTGEN ([facility] GamarnikReferrer: EDT Medical - [facility]) Outpatient Attender: Cole Fishman 09/03/2019 10:32:00 AM NEXTGEN ([facility] EDT Medical - [place] [facility]) Outpatient Attender: Cole 09/03/2019 12:00:00 AM NEXTGEN ([facility] GoldbergReferrer: Cole ANGULO M edical - [facility]) Outpatient Attender: Maurice 09/03/2019 12:00:00 AM NEXTGEN ([facility] RosenbergReferrer: Cole EDT Medical - [facility]) Outpatient Attender: Marianela 09/02/2019 07:30:00 PM NEXTGEN ([facility] Joe EDT Medical - [place] [facility]) Outpatient Attender: Namrata Mcguire NP 08/29/2019 05:43:00 PM NEXTGEN ([facility] EDT Medical - [facility]) Outpatient Attender: John 08/28/2019 12:00:00 AM NEXTGEN ([facility] CollierReferrer: John ANGULO M edical - [facility] Medical [facility]) Outpatient Attender: Luz Donis 08/27/2019 04:28:00 PM NEXTGEN ([facility] EDT Medical - [place] [facility]) Outpatient Attender: Luz 08/27/2019 12:00:00 AM NEXTGEN ([facility] YardeniReferrer: Luz EDT Me dical - [facility]) Outpatient Attender: Juaquin Funez 08/26/2019 01:46:00 AM NEXTGEN ([facility] EDT Medical - [place] [facility]) Outpatient Attender: Juaquin Funez 08/15/2019 06:21:00 PM NEXTGEN ([facility] EDT Medical - [place] [facility]) Outpatient Attender: Shanon 08/14/2019 01:46:00 PM NEXTGEN ([facility] ZakiReferrer: EDT Medica l - [place] [facility]) Outpatient Attender: Juaquin 08/14/2019 10:15:00 AM NEXTGEN ([facility] ArminReferrer: Juaquin ANGULO Tx dical - [facility]) Outpatient Attender: Juaquin 08/14/2019 12:00:00 AM NEXTGEN ([facility] ArminReferrer: Juaquin ANGULO Tx dical - [facility]) Outpatient Attender: Juaquin Funez 08/13/2019 12:28:00 PM NEXTGEN ([facility] EDT Medical - [facility]) Outpatient Attender: Aracely Joe 08/11/2019 12:02:00 PM NEXTGEN ([facility] EDT Medical - [facility]) Outpatient Attender: Juaquin Funez 08/11/2019 02:10:00 AM NEXTGEN ([facility] EDT Medical - [facility]) Outpatient Attender: Aracely 08/11/2019 12:00:00 AM NEXTGEN ([facility] GuptaReferrer: Parantap EDT [facility] Outpatient Attender: Juaquin Funez 08/07/2019 12:23:00 PM NEXTGEN ([facility] EDT Medical - [facility]) Outpatient Attender: Shanon 08/07/2019 12:14:00 PM NEXTGEN (Care[facility]abdirah[facility] HainesReferrer: EDT Medica l - [place] [facility]) Outpatient Attender: Juaquin Funez 08/06/2019 01:20:00 PM NEXTGEN ([facility] EDT Medical [facility]) Outpatient Attender: Aracely Joe 08/05/2019 09:55:00 AM NEXTGEN ([facility] EDT Medical [facility]) Outpatient Attender: Aracely 08/05/2019 12:00:00 AM NEXTGEN ([facility] GuptaReferrer: Parantap EDT M edical - [facility] Outpatient Attender: Carlin Land 08/01/2019 03:52:00 PM NEXTGEN ([facility] EDT Medical [facility]) Outpatient Attender: Juaquin Funez 07/30/2019 04:41:00 PM NEXTGEN ([facility] EDT Medical [facility]) Outpatient Attender: Carlin Land 07/28/2019 07:20:00 PM NEXTGEN ([facility] EDT Medical [facility]) Outpatient Attender: Carlin 07/28/2019 12:00:00 AM NEXTGEN ([facility] LeeReferrer: Reyes EDT Medical - [facility]) Outpatient Attender: Juaquin Funez 07/27/2019 11:51:00 AM NEXTGEN ([facility] EDT Medical [facility]) Outpatient Attender: Juaquin Funez 07/05/2019 11:59:00 AM NEXTGEN ([facility] EDT Medical [facility]) Outpatient Attender: Juaquin Funez 07/03/2019 03:27:00 AM NEXTGEN ([facility] EDT Medical [facility]) Inpatient Attender: Physician 06/22/2019 11:52:11 PM [facility] Shanon Fontana EDT - 06/25/2019 [facility] MDAttender: Physician 04:20:00 PM EDT Namrata Haile MDAttender: Myra Naidu DOAttender: ERAdmitter: Physician Shanon Fontana MDConsultant: Lai Chao MD Patient discharged. Outpatient Attender: Nunu 06/09/2019 12:00:00 AM NEXTGEN ([facility] CloseReferrer: Nunu MEDINA Tx dical - [facility]) Outpatient Abstract Manager: Lavon 06/06/2019 12:00:00 AM NEXTGEN (Richard Carrion MD EST Medical - [facility]) Outpatient Attender: Lai 06/05/2019 12:00:00 AM NEXTGEN ([facility] JeremieReferrer: Juaquin EST Medical - [facility]) Outpatient Abstract Manager: Lavon 06/05/2019 12:00:00 AM NEXTGEN (Richard Carrion MD EST Medical [facility] ) Inpatient Attender: Physician 06/04/2019 07:45:31 PM [facility] Dequan Jerez EST - 06/10/2019 [facility] MDAttender: Physician Namrata 02:40:00 PM EST Mic MDAttender: Glen Adams: ERAdmitter: Physician Dequan Jerez MDConsultant: Lavon Carrion MDConsultant: Physician Sara Shields MDConsultant: Lai Chao MD Patient discharged. Emergency Attender: GAYATRI 06/04/2019 04:54:00 WEAKNESS, VOMITING [place] CHANTAL PM EST - 06/04/2019 ([place] Hospi grazyna 06:34:00 PM EST WEAKNESS, [place]OMIT[place] Patient discharged. Outpatient Attender: TYLER 05/08/2019 [facility], 06:00:00 AM [facility] Outpatient Attender: TYLER 04/24/2019 [facility] TYLER 10:37:00 AM [facility] Outpatient Attender: Mariano Eddy DPM 04/21/2019 FOOT WOUND [place] 09:57:00 AM [facility] FOOT WOUND Outpatient Attender: TYLER 04/10/2019 11:22:00 [facility] MAC SCOTT [facility] Outpatient 03/31/2019 09:05:00 PM NE TSMART ([facility] ty Services) Outpatient Attender: TYLER 03/26/2019 09:34:00 AM H33.01 2 [facility] SARAAdmitter: GivU SARA SCOTTReferrer: SARA SCOTT H33.012 Outpatient Attender: TYLER 03/26/2019 06:00:00 H33.012 [facility]: MAC SCOTT [employer] SARAReferrer: TYLER [employer] SARA H33.012 Outpatient Attender: Mehrdad BENDER 03/25/2019 11:24:00 AM [facility] Hoff MDAdmitter: EST - 04/21/2019 [facility] JHOANA CABRERA 12:46:00 PM EST Patient discharged. Attender: 03/25/2019 [facility] [id number] 11:24:[address] Outpatient Attender: SARA SCOTTAdmitter: 03/24/2019 [place] SARA SCOTTReferrer: TYLER, 12:17:00 PM [facility] Emergency Attender: Alessandro Franz MDAttender: ICU- [...] discharged. Inpatient Attender: JESSICA BENDER-2NW 02/28/2019 07:00:00 [facility] PRETTYAdmitter: KRISTINA EST [facility] Admission cancelled. Disregard status an d admitted date. Attender: 02/28/2019 [facility] [id number] 07:00:00 PM [place] [address] Outpatient Attender: KRISTINA CURRIEttender: NAPOLEON 02/28/2019 [facility] ECHEVARRIAAdmitter: SIMONE 04:15:00 PM EST - [facility] 04/10/2019 11:55:00 AM EST Patient discharged. Attender: 02/28/2019 [facility] [id number] 04:15:[address] Emergency Attender: Wesley PalaciosonAttender: 5T-EM 02/24/2019 PAIN S - Violeta Doctor Other ERG 01:23:00 AM EST LEFT LEG Kwasi - 02/24/2019 [facility] 02:20:00 AM EST PAIN LEFT LEG Patient discharged. Outpatient Attender: Shy Dexter 02/14/2019 10:02:00 AM LAURENT GONZALEZ F/U Georgina Guy MD [facility] HOSP F/U Outpatient Attender: Juaquin 02/12/2019 NEXTGEN ([facility] Gamarnik 12:32:00 PM EST Medical - [facility]) Inpatient Attender: 01/29/2019 INTRACTABLE [place] Mary Ann Olivas 06:41:00 PM EDT - VOMIT[facility] MDAttender: 02/11/2019 Brianna Sullivan 10:13:00 AM EST MDAttender: Nancy Brunson MDAttender: Juan Torre MDAdmitter: Nancy Brunson MDConsultant: Say Valentin MDConsultant: Shirin Stock MDConsultant: Sean Pineda NP INTRACTABLE VOMITING/LIZA Patient discharged. Outpatient Attender: Juaquin 01/21/2019 05:26:00 N EXTGEN ([facility] Gamarnik PM EDT Medical - [facility]) Inpatient Attender: Joce 12/27/2018 08:06:00 RIGHT LE DIABETIC [facility] MDAttender: PM EDT - 01/20/2019 [facility] KofiImer 11:32:00 AM EDT MDAttender: Anette Zhao MDAttender: MAU DOUGLASSAdmitter: Anette Zhao MDConsultant: Say Valentin MDConsultant: Sean Pineda TRUCK CLEANER RIGHT LE DIABETIC [facility] Patient discharged. Inpatient Attender: Manas 12/20/2018 08:36:00 AM [facility]PSIS [facility] MDAtt[facility]: EDT - 12/27/2018 [facility] MDAttender: 10:56:00 AM EDT Calvin Mercedes MDAttender: Monica Manuel MDAttender: Avery Pacheco DOAdmitter: Keysha Tompkins DOConsultant: Yonas Wright MDConsultant: Calvin Mercedes MD SEPSIS Patient discharged. Inpatient Attender: Aron 12/06/2018 INTRACTABLE NAUSEA [facility] MDAttender: 03:30:00 AM EDT - AND VOMIT ING; [facility] 12/18/2018 CHRONIC OSTEOMYEL MDAttender: Gebe 02:55:00 PM EDT Junior DOAdmitter: Aron Fernandez MDConsultant: Sean Pineda NPConsultant: Jennifer Oakley TRUCK CLEANER INTRACTABLE NAUSEA AND VOMITING; CHRONIC OSTEOMYEL Patient discharged. Outpatient Attender: Juaquin 11/18/2018 08:39:00 N EXTGEN ([facility] Gamarnik AM EDT [facility]) Inpatient Attender: Aron 11/14/2018 12:00:00 OSTEOMTEL ITIS [place] Jim MDAttender: PM EDT - 11/25/2018 [facility] 04:48:00 PM EDT MDAttender: Sy Mota MDAttender: Idris Simms MDAttender: Mynor Root MDAdmitter: Keegan Aldrich MDConsultant: Emmett Ma MD OSTEOMTELITIS Patient discharged. Outpatient Attender: Juaquin 11/11/2018 04:24:00 N EXTGEN ([facility] Gamarnik PM EDT [facility]) Outpatient Attender: Mariano 11/11/2018 12:00:00 N EXTGEN ([facility] Raffalli AM EDT [facility]) Inpatient Attender: Carli 11/06/2018 12:42:00 OSTEOMYE LITIS [place] Joselyn PM EDT - 11/11/2018 Hospi grazyna MDAttender: Krystyna 05:17:00 PM EDT Michael MDAttender: Sy Mota MDAttender: Damion Roper MDAdmitter: Krystyna Rodriguez MDConsultant: Junior Esparza OSTEOMYELITIS Patient discharged. Outpatient Attender: Henrry 11/04/2018 NEX TGEN ([facility] LovejosyReferrer: 05:30:00 PM EDT [facility]) Outpatient Attender: Henrry 11/02/2018 NEX TGEN ([facility] Eligio 02:10:00 PM EDT [facility]) Outpatient Attender: Henrry 11/01/2018 NEX TGEN ([facility] Pieter 07:54:00 PM EDT [facility]) Outpatient Attender: Henrry 11/01/2018 NEX TGEN ([facility] LovellReferrer: 05:30:00 PM EDT [facility] ) Outpatient Attender: Christghanshyam 10/30/2018 NEX TGEN ([facility] LovellReferrer: 11:00:00 AM EDT [facility] ) Outpatient Attender: Henrry 10/23/2018 NEX TGEN ([facility] LovellReferrer: 11:15:00 AM EDT [facility] ) Outpatient Attender: Henrry 10/16/2018 NEX TGEN ([facility] LovellReferrer: 11:15:00 AM EDT [facility] ) Outpatient Attender: Mariano Munoz 10/09/2018 Bg ELLIS ([facility] 10:35:00 AM EDT [facility]) Outpatient Attender: Henrry 10/09/2018 NEX TGEN ([facility] LovellReferrer: 09:45:00 AM EDT [facility] ) Outpatient Attender: Henrry 10/02/2018 NEX TGEN ([facility] LovellReferrer: 11:15:00 AM EDT [facility] [facility] ) Outpatient Attender: Megan 10/01/2018 NEX TGEN ([facility] 06:14:00 PM EDT [facility]) Outpatient Attender: Henrry 09/25/2018 NEX TGEN ([facility] LovellReferrer: 12:00:00 PM EDT [facility] ) Outpatient Attender: Henrry 09/23/2018 NEX TGEN ([facility] LovellReferrer: 10:15:00 PM EDT [facility] [place] [facility] ) Outpatient Attender: Mariano Munoz 09/22/2018 N EXTGEN ([facility] 02:18:00 PM EDT Medical [facility]) Outpatient Attender: Mariano 09/22/2018 NEXTGEN ([facility] ShondaiReferrer: Mariano 12:00:00 AM EDT Medical [facility]) Outpatient Attender: Henrry 09/18/2018 NEX TGEN ([facility] Bokoshe 09:36:00 PM EDT Medical [facility]) Outpatient Attender: [facility] [place] 09/18/2018 NEX TGEN ([facility] LovellReferrer: 05:30:00 PM EDT Medi [facility]) Outpatient Attender: Henrry 09/11/2018 NEX TGEN ([facility] LovellReferrer: 10:45:00 AM EDT [facility] [place] [facility]) Outpatient Attender: Adelaide Thorne 09/06/2018 VINCE XTGEN ([facility] 02:24:00 PM EDT Medical [facility]) Outpatient Attender: Shanon 09/04/2018 NEXTGEN ([facility] Zaki 06:34:00 PM EDT Medical [facility]) Outpatient Attender: Shanon 09/03/2018 NEXTGEN ([facility] HollanderReferrer: 12:00:00 AM EDT [facility]) Outpatient Attender: Sara 08/31/2018 NEXTGEN ([facility] RosenReferrer: aSra 12:00:00 AM EDT Medical [facility]) Outpatient 08/29/2018 NEXTGEN ([facility] 12:00:00 AM EDT [facility]) Outpatient Attender: Luz 08/28/2018 NEXTGEN ( [facility] YardeniReferrer: Luz 12:00:00 AM EDT [facility]) Outpatient Attender: Luz 08/27/2018 NEXTGEN ( [facility] YardeniReferrer: Luz 12:00:00 AM EDT [facility]) Outpatient Attender: Shanon 08/26/2018 NEXTGEN ([facility] Zaki 09:51:00 PM EDT Medical [facility]) Outpatient Attender: Christopher 08/26/2018 NEX TGEN ([facility] LovellReferrer: 06:30:00 PM EDT [facility] [facility]) Outpatient Attender: Luz 08/26/2018 NEXTGEN ( [facility] YardeniReferrer: Luz 12:00:00 AM EDT Medical [facility]) Outpatient Attender: Lefty 08/25/2018 NEXTGEN ([facility] BalkirReferrer: Lefty 12:00:00 AM EDT [facility]) Outpatient Attender: Lefty 08/24/2018 NEXTGEN ([facility] BalkirReferrer: Lefty 12:00:00 AM EDT [facility]) Outpatient Attender: Luz 08/23/2018 NEXTGEN ( [facility] YardeniReferrer: Luz 12:00:00 AM EDT [facility]) Outpatient Attender: Luz 08/22/2018 NEXTGEN ( [facility] YardeniReferrer: Luz 12:00:00 AM EDT [facility]) Outpatient Attender: Shanon 08/21/2018 NEXTGEN ([facility] Zaki 09:38:00 PM EDT [facility]) Outpatient Attender: Jeronimoer 08/21/2018 NEX TGEN ([facility] LovellReferrer: 10:00:00 AM EDT [facility]) Outpatient Attender: Perico Tripp 08/21/2018 NEXTRoly EN ([facility] 09:05:00 AM EDT [facility]) Outpatient Attender: Luz 08/21/2018 NEXTGEN ( [facility] YardeniReferrer: Luz 12:00:00 AM EDT [facility]) Outpatient Attender: Shanon 08/20/2018 NEXTGEN ([facility]aki 08:47:00 PM EDT [facility]) Outpatient Attender: Henrry 08/20/2018 NEX TGEN ([facility] LovellReferrer: 05:00:00 PM EDT [facility] Outpatient Attender: Megan Lee 08/20/2018 CHARLIE TGEN ([facility] 08:57:00 AM EDT [facility]) Outpatient Attender: Perico 08/20/2018 NEXTGEN ([facility] LiebReferrer: Megan 12:00:00 AM EDT [facility]) Outpatient Attender: Lefty 08/18/2018 NEXTGEN ([facility] BalkirReferrer: Lefty 12:00:00 AM EDT [facility]) Outpatient Attender: Shanon 08/17/2018 NEXTGEN ([facility] HollanderReferrer: 09:19:00 AM EDT [facility]) Outpatient Attender: Lefty 08/17/2018 NEXTGEN ([facility] BalkirReferrer: Lefty 12:00:00 AM EDT [facility]) Outpatient Attender: Shanon 08/16/2018 NEXTGEN ([facility] 09:12:00 PM EDT [facility]) Outpatient Attender: Henrry 08/16/2018 CHARLIE TGEN ([facility] LovellReferrer: 05:00:00 PM EDT [facility]) Outpatient Attender: Mariano Munoz 08/16/2018 Bg ELLIS ([facility] 12:40:00 AM EDT [facility]) Outpatient Attender: Mariano 08/16/2018 NEXTGEN ([facility] Fabianaferrer: Mariano 12:00:00 AM EDT [facility]) Outpatient Attender: Perico 08/15/2018 NEXTGEN ([facility] BrauningReferrer: Perico 12:00:00 AM EDT [facility]) Outpatient Attender: Abidrahman Ortiz 08/14/2018 Bg EXTGEN ([facility] 02:12:00 PM EDT [facility]) Outpatient Attender: Shanon 08/14/2018 NEXTGEN ([facility]aki 01:24:00 PM EDT [facility]) Outpatient Attender: Shanon 08/14/2018 NEXTGEN ([facility] HollanderReferrer: 12:00:00 AM EDT [facility]) Outpatient Attender: Abdirahman Ortiz 08/13/2018 Bg EXTGEN ([facility] 05:55:00 PM EDT [facility]) Outpatient Attender: Abdirahman Ortiz 08/12/2018 Bg EXTGEN ([facility] 04:18:00 PM EDT [facility]) Outpatient Attender: Juaquin 08/11/2018 NEXTGEN ([facility] ArminReferrer: Abdirahman 12:00:00 AM EDT [facility]) Outpatient Attender: Juaquin 08/10/2018 TENAGEN ([facility] GigiarnikReferrer: Juaquin 12:00:00 AM EDT [facility]) Outpatient Attender: Shanon 08/10/2018 NEXTGEN ([facility] ZakiReferrer: 12:00:00 AM EDT [facility]) Outpatient Attender: Abdirahman Ortiz 08/08/2018 N EXTGEN ([facility] 03:08:00 PM EDT [facility]) Outpatient Attender: Abdirahman Ortiz 08/05/2018 N EXTGEN ([facility] 04:03:00 PM EDT [facility]) Outpatient Attender: Abdirahman 07/17/2018 TENAGEN ( [facility] AngelReferrer: Abdirahman 02:00:00 PM EDT [facility]) Outpatient Attender: Henrry 07/17/2018 NEX TGSANDRA ([facility] LovellReferrer: 11:00:00 AM EDT [facility] Out[facility] Attender: Abdirahman Ortiz 07/16/2018 N EXTGEN ([facility] 04:27:00 PM EDT Medical [facility]) Outpatient Attender: Abdirahman Ortiz 07/15/2018 N EXTGEN ([facility] 04:11:00 PM EDT Medical [facility]) Outpatient Attender: Abdirahman Ortiz 07/15/2018 N EXTGEN ([facility] 12:30:00 PM EDT [facility]) Outpatient Attender: Adelaide Thorne 07/12/2018 NE XTGEN ([facility] 05:21:00 PM EDT [facility]) Outpatient 07/12/2018 NEXTGEN ([facility] 12:00:00 AM EDT [facility]) Outpatient Attender: Cole 07/11/2018 NEXTGEN ( [facility] Fishman 10:58:00 AM EDT [facility]) Outpatient 07/11/2018 NEXTGEN ([facility] 12:00:00 AM EDT [facility]) Outpatient Attender: Abdirahamn Ortiz 07/10/2018 N EXTGEN ([facility] 04:00:00 AM EDT [facility]) Outpatient Attender: Cole 07/10/2018 NEXTGEN ( [facility] GoldbergReferrer: Cole 12:00:00 AM EDT [facility]) Outpatient Attender: Luz 07/09/2018 NEXTGEN ( [facility] YardeniReferrer: Luz 12:00:00 AM EDT [facility]) Outpatient Attender: Luz 07/08/2018 NEXTGEN ( [facility] YardeniReferrer: Luz 12:00:00 AM EDT [facility]) Outpatient Attender: Cole 07/07/2018 TENAGEN ( [facility] GoldbergReferrer: Cole 12:00:00 AM EDT Medical [facility]) Outpatient Attender: Luz 07/06/2018 NEXTGEN ( [facility] YardeniReferrer: Luz 12:00:00 AM EDT [facility]) Outpatient Attender: Christopher 07/05/2018 NEX TGEN ([facility] LovellReferrer: 05:15:00 PM EDT [facility] [place] [facility]) Outpatient 07/05/2018 NEXTGEN ([facility] 12:00:00 AM EDT [facility]) Outpatient Attender: Jeronimoer 07/04/2018 NEX TGEN ([facility] LovellReferrer: 07:15:00 PM EDT [facility] [place] [facility]) Outpatient Attender: Namrata Mcguire NP 07/04/2018 Bg EXTGEN ([facility] 01:32:00 PM EDT [facility]) Outpatient 07/04/2018 NEXTGEN ([facility] 12:00:00 AM EDT [facility]) Outpatient Attender: Shanon 07/01/2018 NEXTGEN ([facility] HollanderReferrer: 12:00:00 AM EDT [facility]) Outpatient 06/29/2018 NEXTGEN ([facility] 12:00:00 AM EDT [facility]) Outpatient Attender: Christjennyer 2018 NEX TGEN ([facility] LovellReferrer: 04:30:00 PM EDT [facility] [place] [facility]) Outpatient 2018 NEXTGEN ([facility] 12:00:00 AM EDT [facility]) Outpatient Attender: Henrry 06/27/2018 NEX TGEN ([facility] LovellReferrer: 08:45:00 AM EDT [facility] [place] [facility]) Outpatient Attender: Cole 06/27/2018 NEXTGEN ( [facility] Fishman 08:20:00 AM EDT Medical [facility]) Outpatient 06/27/2018 NEXTGEN ([facility] 12:00:00 AM EDT [facility]) Outpatient 06/26/2018 NEXTGEN ([facility] 12:00:00 AM EDT [facility]) Outpatient Attender: Henrry 06/25/2018 NEX TGEN ([facility] LovellReferrer: 05:00:00 PM EDT [facility]) Outpatient Attender: Cole 06/25/2018 NEXTGEN ( [facility] Fishman 09:24:00 AM EDT [facility]) Outpatient Attender: Luz 06/25/2018 NEXTGEN ( [facility] YardeniReferrer: Luz 12:00:00 AM EDT [facility]) Outpatient Attender: Henrry 06/24/2018 NEX TGEN ([facility] LovellReferrer: 05:45:00 PM EDT [facility]) Outpatient Attender: Cole 06/24/2018 NEXTGEN ( [facility] Fishman 09:44:00 AM EDT [facility]) Outpatient Attender: Luz 06/24/2018 NEXTGEN ( [facility] YardeniReferrer: Luz 12:00:00 AM EDT [facility]) Outpatient Attender: Cole 06/23/2018 NEXTGEN ( [facility] Fishman 07:04:00 PM EDT [facility]) Outpatient Attender: Cole 06/23/2018 NEXTGEN ( [facility] GoldbergReferrer: Cole 12:00:00 AM EDT [facility]) Outpatient Attender: Perico Cervantes 06/14/2018 Bg JOYCEGEN ([facility] 01:18:00 PM EST [facility]) Outpatient Attender: Eligio 06/14/2018 NEXTGEN (Scot ellermount Honorioerrer: Eligio Graham 10:45:00 AM EST [facility]) Outpatient Attender: Perico Cervantes 06/13/2018 Bg JOYCEGEN ([facility] 10:14:00 AM EST [facility]) Outpatient Attender: Alec 06/10/2018 OLGA ([facility] VoellmickeReferrer: 02:00:00 PM EST [facility]) Outpatient Attender: Perico 06/06/2018 OLGA ([facility] AryueiraReferrer: Abdirahman 10:40:00 AM EST [facility]) Outpatient Attender: [facility] [place] 06/05/2018 NEX TGEN ([facility] LovellReferrer: 09:00:00 AM EST [facility] Christopher [facility]) Outpatient Attender: Henrry 05/31/2018 NEX TGEN ([facility] [place] 01:22:00 PM EST [facility]) Outpatient Attender: [place] 05/29/2018 NEX TGEN ([facility] LovellReferrer: 10:15:00 AM EST [facility] ) Outpatient Attender: [place] 05/22/2018 NEX TGEN ([facility] LovellReferrer: 09:15:00 AM EST [facility]) Outpatient Attender: [facility] 05/15/2018 NEX TGEN ([facility] LovellReferrer: 10:00:00 AM EST [facility] ) Outpatient Attender: [facility] 05/08/2018 NEX TGEN ([facility] LovellReferrer: 12:00:00 AM EST [facility] ) Outpatient Attender: Abdirahman Ortiz 03/26/2018 Bg EXTGEN ([facility] 07:39:00 PM EST [facility]) Outpatient Attender: Abdirahman Ortiz 10/18/2017 [facility]TGEN [facility]: ADRIÁN 09/23/2017 [facility] [facility]: 10:38:00 AM EDT - [facility] JESSEE FRANCIS 10/02/2017 Corporation 07:59:00 PM EDT VOMITING LIZA Functional Status Medications Medication Brand Start Product Dose Route Administrative Pharmacy [facility] Indications Reaction Description Data Name Date Form [...] al - Mt every day [place] [facility]) This may be an active [...] M edical - Mt Tablet 325 mg [facility] (65 mg iron) [facility]) [...] - [place] gram times every day [facility]) on an empty stomach [...] Refill(s), [facility] - Chewable tablet, EDT [place] [facility] [place] 80 mg oral tablet, chewable Acetaminophen acetaminophen 06/25/2019 Tablet 650.0 Oral [place] 325 MG Oral 325 mg oral 09:57:00 AM mg 650 mg, = 2 tab, Oral, q6hr, 0 Refill(s), Pain Scale 1 - 3 Health - Tablet tablet EDT [place] acetaminophen Hospit al 325 mg oral Center tablet Metoclopramid Reglan 10 mg 06/10/2019 Tablet 10.0 Oral [place] e 10 MG Oral oral tablet 09:09:00 AM mg 10 mg, = 1 tab, Oral, Before meals, # 90 tab, 0 Refill(s), Pharmacy: [facility]/pharmacy #[id number], 1 tab Oral Before meals Health - Tablet Reglan EST [place] 10 mg oral Hospital tablet Center Lisinopril 20 lisinopril 20 06/10/2019 Tablet 20.0 Oral [place] MG Oral mg oral 09:09:00 AM mg 20 mg, = 1 tab, Oral, Daily, # 30 tab, 0 Refill(s), Pharmacy: [facility]/pharmacy #[id number], 1 tab Oral Daily Health - Tablet tablet [facility] lisinopril 20 Hospit al mg oral Center tablet carvedilol carvedilol 06/10/2019 Tablet 6.25 Oral [place] 6.25 MG Oral 6.25 mg oral 09:09:00 AM mg 6.25 mg, = 1 tab, Oral, BID, # 60 tab, 0 Refill(s), Pharmacy: [facility]/pharmacy #[id number], 1 tab Oral BID Health - Tablet tablet [facility] carvedilol [facility] 6.25 mg oral Center tablet Hydralazine hydrALAZINE 06/10/2019 Tablet 25.0 Oral [place] Hydrochloride 25 mg oral 09:09:00 AM mg 25 mg, = 1 tab, Oral, q8hr, # 90 tab, 0 Refill(s), Pharmacy: [facility]/pharmacy #[id number], 1 tab Oral q8hr Health - 25 MG Oral tablet [facility] hydrALAZINE [place] 25 mg oral tablet metformin [id number] 06/05/2019 Tablet 500.0 Oral [place] 01:15:00 AM mg 500 mg, Oral, BID, 0 Refill(s) Health - [facility] Trazodone traZODone 04/16/2019 1.0 Oral ac [employer] Hydrochloride hydrochloride 05:00:00 AM Tablet ti ([place] 50 MG Oral EST [facility]) Clonazepam KlonoPIN - 04/16/2019 1 ORAL co Kl onoPIN - [facility] 0.5 MG Oral 0.5 MG ORAL 12:00:00 AM Tablet mp 0.5 MG ORAL [facility] Tablet Tablet EST [facility] [Klonopin] te d Clonazepam KlonoPIN - 04/03/2019 1 ORAL co Kl onoPIN - [place] 0.5 MG Oral 0.5 MG ORAL 12:00:00 AM Tablet mp 0.5 MG ORAL [facility] Tablet Tablet EST Tablet [facility] [Klonopin] te d Fluoxetine 10 PROzac - [...] Lorazepam 1 Ativan 1 03/08/2019 1 {tab(s)} [id number] aborted Ativan [facility] Oral mg oral [...] machinery. Lorazepam 1 Ativan 1 02/24/2019 1 [id number] aborted Ativan [facility] Oral mg oral 02:02:37 AM {tab(s)} Health Tablet tablet EST System [Ativan] Ativan 1 mg oral tablet Metformin Metformin 02/10/2019 TAB 500 mg ORAL active [facility] hydrochlorid Hcl 02:28:00 PM LET [place] e 500 MG EST Hospital Oral Tablet [Glucophage] Metformin Hcl Metocloprami Metoclopr 02/10/2019 TAB 10 mg ORAL active [facility] de 10 MG amide Hcl 02:28:00 PM LET [place] Oral Tablet EST Hospital Metocloprami de Hcl Metformin Metformin 02/10/2019 TAB 500 mg ORAL completed [facility] hydrochlorid Hcl 02:28:00 PM LET [place] e 500 MG EST Hospital Oral Tablet [Glucophage] Metformin Hcl Metocloprami Metoclopr 02/10/2019 TAB 10 mg ORAL completed [facility] de 10 MG amide Hcl 02:28:00 PM LET [place] Oral Tablet EST Hospital Metocloprami de Hcl [...] 30 MG e Hcl 05:15:00 PM SUL [place] Delayed EST E, Hospital Release Oral EXT Capsule END [Cymbalta] ED Duloxetine REL Hcl EAS E duloxetine Duloxetin 02/09/2019 CAP 30 mg ORAL completed [facility] 30 MG e Hcl 05:15:00 PM SUL [place] Delayed EST E, Hospital Release Oral EXT Capsule END [Cymbalta] ED Duloxetine REL Hcl EAS E Lisinopril Lisinopri 02/09/2019 TAB 40 mg ORAL active [facility] 20 MG Oral l 05:15:[address] Tablet EST Hospital Hydralazine Hydralazi 02/09/2019 TAB 75 mg ORAL completed [facility] Hydrochlorid ne Hcl 05:15:00 PM LET [place] e 25 MG Oral EST Hospita l Tablet Hydralazine Hcl pantoprazole Pantopraz 02/09/2019 TAB 40 mg ORAL active [facility] 40 MG ole 05:15:00 PM LET [place] Delayed Sodium EST Hospital Release Oral Tablet [Protonix] Pantoprazole Sodium pantoprazole Pantopraz 02/09/2019 TAB 40 mg ORAL completed [facility] 40 MG ole 05:15:00 PM LET [place] Delayed Sodium EST Hospital Release Oral Tablet [Protonix] Pantoprazole Sodium Metoprolol Metoprolo 02/09/2019 TAB 25 mg ORAL completed [facility] Tartrate 25 l 05:15:00 PM LET [facility] MG Oral Tartrate EST Hospital Tablet Amlodipine Amlodipin 02/09/2019 TAB 10 mg ORAL completed [facility] 10 MG Oral e 05:15:[address] Tablet Besylate EST Hospital [[facility]] Amlodipine Besylate Metoprolol Metoprolo 02/09/2019 TAB 25 mg ORAL active [facility] Tartrate 25 l 05:15:00 PM LET [facility] MG Oral Tartrate EST Hospital Tablet Hydralazine Hydralazi 02/09/2019 TAB 75 mg ORAL active [facility] Hydrochlorid ne Hcl 05:15:00 PM LET [place] e 25 MG Oral EST Hospita l Tablet Hydralazine Hcl Amlodipine Amlodipin 02/09/2019 TAB 10 mg ORAL active [place] 10 MG Oral e 05:15:[address] Tablet Besylate EST Hospital [[facility]] Amlodipine Besylate Lisinopril Lisinopri 02/09/2019 TAB 40 mg ORAL completed [facility] 20 MG Oral l 05:15:[address] Tablet EST Hospital Insulin Insulin 01/16/2019 UNS 15 SUBCUTANE completed [facility] Glargine 100 Glargine 12:30:00 PM PEC OUS [place] UNT/ML EDT IFI Hospital Injectable ED Solution [Lantus] duloxetine Duloxetin 01/16/2019 CAP 30 mg ORAL completed [facility] 30 MG e Hcl 12:30:00 PM SUL [place] Delayed EDT E, Hospital Release Oral EXT [...] [facility] 40 MG ole 12:30:00 PM LET [place] Delayed Sodium EDT Hospital Release Oral Tablet [Protonix] Pantoprazole Sodium Lisinopril Lisinopri 01/16/2019 TAB 40 mg ORAL completed [facility] 20 MG Oral l 12:30:[address] Tablet EDT Hospital Hydralazine Hydralazi 01/16/2019 TAB 75 mg ORAL completed [facility] Hydrochlorid ne Hcl 12:30:00 PM LET [place] e 25 MG Oral EDT Hospita l Tablet Hydralazine Hcl Insulin Insulin 01/16/2019 UNS 15 SUBCUTANE completed [place] Glargine 100 Glargine 12:30:00 PM PEC OUS [place] UNT/ML EDT [facility] Injectable ED Solution [Lantus] Lisinopril Lisinopri [...] 30 MG e Hcl 12:30:00 PM SUL [place] Delayed EDT E, Hospital Release Oral EXT [...] SUL Pl ains Capsule EDT E Hospital [[facility]] Pregabalin pantoprazole Pantopraz 01/16/2019 TAB 40 mg ORAL completed [place] 40 MG ole 12:30:00 PM LET [place] Delayed Sodium EDT Hospital Release Oral Tablet [Protonix] Pantoprazole Sodium Dextromethor Guaifenes 01/16/2019 LIQ 5 mL ORAL completed [facility] sexton in/Dextro 12:30:00 PM UID Kim ins Hydrobromide methorpha EDT Ho spital 2 MG/ML / n Guaifenesin 20 MG/ML Oral Solution Guaifenesin/ Dextromethor sexton pantoprazole Pantopraz 01/16/2019 TAB 40 mg ORAL completed [facility] 40 MG ole 12:30:00 PM LET [place] Delayed Sodium EDT Hospital Release Oral Tablet [Protonix] Pantoprazole Sodium pregabalin Pregabali 01/16/2019 CAP 75 mg ORAL completed [place] 75 MG Oral n 12:30:[address] Capsule EDT E Hospital [[facility]] Pregabalin Acetaminophe Acetamino 01/16/2019 TAB 975 mg ORAL completed [facility] n 325 MG phen 12:30:00 PM LET [facility] Oral Tablet EDT Hospital Metocloprami Metoclopr 01/16/2019 TAB 10 mg ORAL completed [facility] de 10 MG amide Hcl 12:30:00 PM LET [place] Oral Tablet EDT Hospital Metocloprami de Hcl duloxetine Duloxetin 01/16/2019 CAP 30 mg ORAL completed [place] 30 MG e Hcl 12:30:00 PM SUL [place] Delayed EDT E, Hospital Release Oral EXT Capsule END [Cymbalta] ED Duloxetine REL Hcl EAS E Lidocaine Lidocaine 01/16/2019 PAT 1 {Patch} TOPICAL completed [facility] Hydrochlorid 12:30:00 PM CH [place] e 0.05 MG/MG EDT Hospita l Transdermal Patch [Lidoderm] Hydralazine Hydralazi 01/16/2019 TAB 75 mg ORAL completed [place] Hydrochlorid ne Hcl 12:30:00 PM LET [place] e 25 MG Oral EDT Hospita l Tablet Hydralazine Hcl pregabalin Pregabali 01/16/2019 CAP 75 mg ORAL completed [place] 75 MG Oral n 12:30:[address]ins Capsule EDT E [facility] [[facility]] Pregabalin Acetaminophe Acetamino 01/16/2019 TAB 975 mg ORAL completed [place] n 325 MG phen 12:30:00 PM LET Plai ns Oral Tablet EDT Hospital Lisinopril Lisinopri 01/16/2019 TAB 40 mg ORAL completed [place] 20 MG Oral l 12:30:[address] Tablet EDT Hospital Metocloprami Metoclopr 01/16/2019 TAB 10 mg ORAL completed [facility] de 10 MG amide Hcl 12:30:00 PM LET [place] Oral Tablet EDT Hospital Metocloprami de Hcl Insulin Insulin 01/16/2019 UNS 15 SUBCUTANE completed [place] Glargine 100 Glargine 12:30:00 PM PEC OUS [place] UNT/ML EDT IFI Hospital Injectable ED Solution [Lantus] Insulin Insulin 01/16/2019 UNS 0 SUBCUTANE completed [facility] Lispro 100 Human 12:30:00 PM PEC OUS [place] [facility] UNT/ML Lispro EDT [facility] Injectable ED Solution [Humalog] Insulin Human Lispro Metocloprami Metoclopr 01/16/2019 TAB 10 mg ORAL completed [place] de 10 MG amide Hcl 12:30:00 PM LET [place] Oral Tablet EDT Hospital Metocloprami de Hcl [...] TOPICAL completed [place] Hydrochlorid 12:30:00 PM CH [place] e 0.05 MG/MG EDT Hospita l Transdermal Patch [Lidoderm] Lidocaine Lidocaine 01/16/2019 PAT 1 {Patch} TOPICAL completed [place] Hydrochlorid 12:30:00 PM CH [place] e 0.05 MG/MG EDT Hospita l Transdermal Patch [Lidoderm] Hydralazine Hydralazi 01/16/2019 TAB 75 mg ORAL completed [place] Hydrochlorid ne Hcl 12:30:00 PM LET [place] e 25 MG Oral EDT Hospita l [...] PEC OUS [place] [facility] UNT/ML Lispro EDT [facility] Injectable ED Solution [Humalog] Insulin Human Lispro Insulin Insulin 01/16/2019 UNS 0 SUBCUTANE completed [place] Lispro 100 Human 12:30:00 PM PEC OUS [facility] UNT/ML Lispro EDT [facility] Injectable ED Solution [Humalog] Insulin Human [...] White 40 MG ole 09:27:00 AM LET [place] Delayed Sodium EDT Hospital Release Oral Tablet [Protonix] Pantoprazole Sodium pantoprazole Pantopraz 12/18/2018 TAB 40 mg ORAL completed [place] 40 MG ole 09:27:00 AM LET [place] Delayed Sodium EDT Hospital Release Oral Tablet [Protonix] Pantoprazole Sodium pantoprazole Pantopraz 12/18/2018 TAB 40 mg ORAL completed [place] 40 MG ole 09:27:00 AM LET [place] Delayed Sodium EDT Hospital Release Oral Tablet [Protonix] Pantoprazole Sodium pantoprazole Pantopraz 12/18/2018 TAB 40 mg ORAL completed [place] 40 MG ole 09:27:00 AM LET [place] Delayed Sodium EDT Hospital Release Oral Tablet [Protonix] Pantoprazole Sodium pantoprazole Pantopraz 12/18/2018 TAB 40 mg ORAL completed [place] 40 MG ole 09:27:00 AM LET [place] Delayed Sodium EDT Hospital Release Oral Tablet [Protonix] Pantoprazole Sodium Amlodipine Amlodipin 12/18/2018 TAB 10 mg ORAL completed [place] 10 MG Oral e 09:18:[address] Tablet Besylate EDT Hospital [[facility]] Amlodipine Besylate Metocloprami Metoclopr 12/18/2018 TAB 10 mg ORAL completed [facility] de 10 MG amide Hcl 09:18:00 AM LET [place] Oral Tablet EDT Hospital [Reglan] Metocloprami de Hcl Erythromycin Erythromy 12/18/2018 CAP 250 mg ORAL completed [place] 250 MG jesús Base 09:18:[address] Delayed EDT E, Hospital Release Oral DEL Capsule AYE Erythromycin D Base REL EAS E Amlodipine Amlodipin 12/18/2018 TAB 10 mg ORAL completed [place] 10 MG Oral e 09:18:[address] Tablet Besylate EDT Hospital [[facility]] Amlodipine Besylate Erythromycin Erythromy 12/18/2018 CAP 250 mg ORAL completed [place] 250 MG jesús Base 09:18:[address] Delayed EDT E, Hospital Release Oral DEL Capsule AYE Erythromycin D Base REL EAS E Amylases Amylase/L 12/18/2018 CAP 4 ORAL completed [place] [id number] UNT / ipase/Pro 09:18:00 AM SUL {Capsule} [place] Endopept[place] [id number] UNT DEL / Lipase AYE 6000 UNT D Delayed REL Release Oral EAS Capsule E [Creon] Amylase/Lipa se/Protease Erythromycin Erythromy 12/18/2018 CAP 250 mg ORAL completed [place] 250 MG jesús Base 09:18:[address] Delayed EDT E, Hospital Release Oral DEL Capsule AYE Erythromycin D Base REL EAS E Amylases Amylase/L 12/18/2018 CAP 4 ORAL completed [place] [id number] UNT / ipase/Pro 09:18:00 AM SUL {Capsule} [place]opept[place] [id number] UNT DEL / Lipase AYE 6000 UNT D Delayed REL Release Oral EAS Capsule E [Creon] Amylase/Lipa se/Protease Metocloprami Metoclopr 12/18/2018 TAB 10 mg ORAL completed [place] de 10 MG amide Hcl 09:18:00 AM LET [place] Oral Tablet EDT Hospital [Reglan] Metocloprami de Hcl Metocloprami Metoclopr 12/18/2018 TAB 10 mg ORAL completed [place] de 10 MG amide Hcl 09:18:00 AM LET [place] Oral Tablet EDT Hospital [Reglan] Metocloprami de Hcl Amylases Amylase/L 12/18/2018 CAP 4 ORAL completed [place] [address] UNT / ipase/Pro 09:18:00 AM SUL {Capsule} [place] [facility] [place] [place] [address] UNT DEL / Lipase AYE 6000 UNT D Delayed REL Release Oral EAS Capsule E [Creon] Amylase/Lipa se/Protease Amylases Amylase/L 12/18/2018 CAP 4 ORAL completed [place] [address] UNT / ipase/Pro 09:18:00 AM SUL {Capsule} [place] [facility] [place] [address] UNT DEL / Lipase AYE 6000 UNT D Delayed REL Release Oral EAS Capsule E [Creon] Amylase/Lipa se/Protease Amlodipine Amlodipin 12/18/2018 TAB 10 mg ORAL completed [place] 10 MG Oral e 09:18:[address] [facility] Tablet Besylate EDT Hospital [[facility]] Amlodipine Besylate Erythromycin Erythromy 12/18/2018 CAP 250 mg ORAL completed [place] 250 MG jesús Base 09:18:[address] Delayed EDT E, Hospital Release Oral DEL Capsule AYE Erythromycin D Base REL EAS E Metocloprami Metoclopr 12/18/2018 TAB 10 mg ORAL completed [place] de 10 MG amide Hcl 09:18:00 AM LET [place] Oral Tablet EDT Hospital [Reglan] Metocloprami de Hcl Amylases Amylase/L 12/18/2018 CAP 4 ORAL completed [place] [address] UNT / ipase/Pro 09:18:00 AM SUL {Capsule} [place] [facility] [place] [address] UNT DEL / Lipase AYE 6000 UNT D Delayed REL Release Oral EAS Capsule E [Creon] Amylase/Lipa se/Protease Amlodipine Amlodipin 12/18/2018 TAB 10 mg ORAL completed [place] 10 MG Oral e 09:18:[address] Tablet Besylate EDT [facility] [[facility]] Amlodipine Besylate Metocloprami Metoclopr 12/18/2018 TAB 10 mg ORAL completed [place] de 10 MG amide Hcl 09:18:00 AM LET [place] Oral Tablet EDT Hospital [Reglan] Metocloprami de Hcl Erythromycin Erythromy 12/18/2018 CAP 250 mg ORAL completed [place] 250 MG jesús Base 09:18:[address] [facility] Delayed EDT E, Hospital Release Oral DEL Capsule AYE Erythromycin D Base REL EAS E Amlodipine Amlodipin 12/18/2018 TAB 10 mg ORAL completed [place] 10 MG Oral e 09:18:[address] Tablet Besylate EDT [facility] [[facility]] Amlodipine Besylate doxycycline Doxycycli 11/25/2018 CAP 100 [...] completed White MG Oral 02:47:00 PM LET [place] [facility] EDT Hospital [Glucotrol] gabapentin Gabapenti 11/25/2018 CAP [...] completed White Ethylsuccina jesús 02:47:00 PM PEN [place] te 40 MG/ML Ethylsucc EDT [facility] Oral inate N Suspension [E.E.S.] Erythromycin Erythromy 11/25/2018 DAVID 200 mg ORAL completed [place] Ethylsuccina jesús 02:47:00 PM PEN [place] te 40 MG/ML Ethylsucc EDT [facility] Oral inate N Suspension [E.E.S.] Erythromycin Erythromy 11/25/2018 DAVID 200 mg ORAL completed [place] Ethylsuccina jesús 02:47:00 PM PEN [place] te 40 MG/ML Ethylsucc EDT [facility] Oral inate N Suspension [E.E.S.] Erythromycin Erythromy 11/25/2018 DAVID 200 mg ORAL completed [place] Ethylsuccina jesús 02:47:00 PM PEN [place] te 40 MG/ML Ethylsucc EDT [facility] Oral inate N Suspension [E.E.S.] gabapentin Gabapenti 11/25/2018 CAP 300 mg ORAL completed [place] 300 MG Oral n 02:47:00 PM SUL P l[place] Capsule EDT E Hospital [Neurontin] Gabapentin Erythromycin Erythromy 11/25/2018 DAVID 200 mg ORAL completed White Ethylsuccina jesús 02:47:00 PM PEN [place] te 40 MG/ML Ethylsucc EDT SIO Hos [...] completed White Ethylsuccina jesús 02:47:00 PM PEN [place] te 40 MG/ML Ethylsucc EDT SIO Hos [...] White 0.25 UNT/MG se 06:02:00 [facility] Ointment [Santyl] Collagenase gabapentin Gabapenti 11/10/2018 CAP 100 mg ORAL completed [place] 100 MG Oral n 06:02:00 PM SUL P [facility] Capsule EDT E Hospital Gabapentin COLLAGENASE Collagena 11/10/2018 OIN 1 TOPICAL completed White 0.25 UNT/MG se 06:02:00 PM TME {Applicat [place] Topical EDT NT or} Hospital Ointment [Santyl] Collagenase gabapentin Gabapenti 11/10/2018 CAP 100 mg ORAL completed [place] 100 MG Oral n 06:02:00 PM SUL P l[place] Capsule EDT E Hospital Gabapentin Amlodipine 5 Amlodipin 11/10/2018 TAB 5 mg ORAL completed White MG Oral e 06:02:00 PM [place] Tablet Besylate EDT [facility] [[facility]] Amlodipine Besylate gabapentin Gabapenti 11/10/2018 CAP 100 [...] 20 MG Oral l 06:02:00 PM LET [facility] Tablet EDT [facility] Lisinopril Lisinopri 11/10/2018 TAB 20 mg ORAL completed [place] 20 MG Oral l 06:02:00 PM LET [facility] Tablet EDT [facility] Amlodipine 5 Amlodipin 11/10/2018 TAB 5 mg ORAL completed [place] MG Oral e 06:02:00 PM [place] Tablet Besylate EDT [facility] [[facility]] Amlodipine Besylate Lisinopril Lisinopri 11/10/2018 TAB 20 mg ORAL completed [place] 20 MG Oral l 06:02:00 PM LET [facility] EDT [facility] Lisinopril Lisinopri 11/10/2018 TAB 20 mg ORAL completed [place] 20 MG Oral l 06:02:00 PM LET [facility] Tablet EDT [facility] gabapentin Gabapenti 11/10/2018 CAP 100 mg ORAL completed [place] 100 MG Oral n 06:02:00 PM SUL P l[place] Capsule EDT E Hospital Gabapentin Amlodipine 5 Amlodipin 11/10/2018 TAB 5 mg ORAL completed [place] MG Oral e 06:02:00 PM [place] Tablet Besylate EDT [facility] [[facility]] Amlodipine Besylate COLLAGENASE Collagena 11/10/2018 OIN 1 TOPICAL completed White 0.25 UNT/MG se 06:02:00 PM TME {Applicat [place] Topical EDT NT or} [facility] Ointment [Santyl] Collagenase COLLAGENASE Collagena 11/10/2018 OIN 1 TOPICAL completed [place] 0.25 UNT/MG se 06:02:00 PM TME {Applicat [place] Topical EDT NT or} Hospital Ointment [Santyl] Collagenase Amlodipine 5 Amlodipin 11/10/2018 TAB 5 mg ORAL completed [place] MG Oral e 06:02:00 PM [place] Tablet Besylate EDT Hospital [[facility]] Amlodipine Besylate Lisinopril Lisinopri 11/10/2018 TAB 20 mg ORAL completed [place] 20 MG Oral l 06:02:[address] [facility] Tablet EDT Hospital Amlodipine 5 Amlodipin 11/10/2018 TAB 5 mg ORAL completed [place] MG Oral e 06:02:00 PM [place] Tablet Besylate EDT [facility] [[facility]] Amlodipine Besylate COLLAGENASE Collagena 11/10/2018 OIN 1 TOPICAL completed [place] 0.25 UNT/MG se 06:02:00 PM TME {Applicat [place] Topical EDT NT or} Hospital Ointment [Santyl] Collagenase COLLAGENASE Collagena 11/10/2018 OIN 1 TOPICAL completed [place] 0.25 UNT/MG se 06:02:00 PM TME {Applicat [place] Topical EDT NT or} Hospital Ointment [Santyl] Collagenase Amlodipine 5 Amlodipin 11/10/2018 TAB 5 mg ORAL completed [place] MG Oral e 06:02:00 PM [place] Tablet Besylate EDT [facility] [[facility]] Amlodipine Besylate ertapenem ERTAPENEM 07/13/2018 in RP [...] AM EDT daily ([facility] This may be an [...] - Mt Table[facility] 1,000 mg [facility]ID [facility]) This may be an active medication. No end date is available. Levofloxacin Levofloxacin TABLET 750 ORAL completed [place] 750 MG Oral mg [place] Tablet [facility] 24 HR Metformin Metformin Hcl TABLET, 1 ORAL completed [place] hydrochloride EXTENDED {Caps P lains 1000 MG RELEASE ule} [facility] Extended Release Oral Tablet [Fortamet] Metformin [...] {Caps P lains 1000 MG RELEASE ule} [facility] Extended Release Oral Tablet [Fortamet] Metformin Hcl Vancomycin/Wate INTRAVENOUS 1 g INTRAVENOUS completed [facility] r [facility] Amlodipine 5 MG Amlodipine TABLET 5 mg ORAL completed [place] Oral Tablet Besylate [facility] [[facility]] [facility] Amlodipine Besylate 24 HR Metformin Metformin Hcl TABLET, 1 ORAL completed [place] hydrochloride EXTENDED {Caps P lains 1000 MG RELEASE ule} [facility] Extended Release Oral Tablet [Fortamet] Metformin Hcl Vancomycin/Wate INTRAVENOUS 1 g INTRAVENOUS completed [facility] r [facility] (Peg) [facility] Vancomycin/Wate INTRAVENOUS 1 g INTRAVENOUS completed [facility]eg[facility] 24 HR Metformin Metformin Hcl TABLET, 1 ORAL completed [place] hydrochloride EXTENDED {Caps P lains 1000 MG RELEASE ule} Hospital Extended Release Oral Tablet [Fortamet] Metformin Hcl Vancomycin/Wate INTRAVENOUS 1 g INTRAVENOUS completed [facility] r [facility] (Peg) [facility] gabapentin 100 Gabapentin CAPSULE 100 ORAL completed White MG Oral Capsule mg Plai ns Gabapentin Hospital Vancomycin/Wate INTRAVENOUS 1 g INTRAVENOUS completed [facility] r For Inj (Peg) [facility] Vancomycin/Wate INTRAVENOUS 1 g INTRAVENOUS completed [facility] r For [facility]j (Peg) [facility] Protonix 0 [id number] active Protonix Ord ered: 24-Feb-2019 [facility] Quantity: 0 Sol Manuel [id number] Refills: 0 System Metformin metFORMIN 0 [id number] active metFOR MIN Ordered: 24-Feb-2019 [facility] metFORMIN Quantity: 0 Marco mcdonald Carolyn [facility] Refills: 0 System Reglan 0 [id number] active Reglan Ordered : 24-Feb-2019 [facility] Quantity: 0 Sol Manuel [id number] Refills: 0 System 24 HR Metformin TABLET, [...] Policy type / Policy ID Covered Covered democrat's Policy Plan Coverage type democrat ID relationship to Ma Information ma SANTANA [id number] SP [id number] MEDICARE ADV PLAN MEDICAID [id number] SP [id number] DAVID MEDICARE [id number] SP [id number] MEDICAID [id number] PT [id number] [employer] [id number] [employer] FIDL Santana [id number] 1 [id number] Care [place] MDCR Medicare [id number] 1 [id number] Part B Par Providers MEDICARE [id number] PT [id number] MEDICAID [id number] SP [id number] MEDICARE [id number] SP [id number] J43 Santana Commercial [id number] 1 [id number] Medicare Medicaid Medicaid [id number] Medicare Part Medicare [id number] 1 [id number] B Outpatient Medicare Part Medicare [id number] 1 [id number] A BETTER [id number] PT [id number] HEALTH/FIDELI S BETTER [id number] PT [id number] HEALTH/FIDELI S Medicare Part Medicare [id number] 1 [id number] B Outpatient Medicaid Medicaid [id number] Medicare Part Medicare [id number] 1 [id number] A FIDL [place] [id number] 1 [id number] Care [place] SELF PAY 000 Self 000 MEDICAID OP [id number] Self [id number] SELF PAY 0000 Self 0000 MEDICAID OP [id number] Self [id number] MEDICARE [id number] Self [id number] Santana Care Medicaid [id number] 1 [id number] BETTER [id number] PT [id number] HEALTH/FIDELI S BLUE CROSS [id number] PT [id number] HMO Problems, Conditions, and Diagnoses Code Display Name Description Problem Type Effective Data Sour ce(s) Dates R79.89 Other specified Low testosterone in Diagnosis 12/22/2019 NEXTGEN abnormal findings of male 04:48:00 PM ([place] [facility] blood chemistry EDT [facility]) E11.43 Type 2 diabetes DM gastroparesis Diagnosis 12/22/2019 NEX TGEN mellitus with 04:48:00 PM ([facility] diabetic autonomic EDT Medica l - Mt (poly)neuropathy [facility]) K31.84 Gastroparesis Gastroparesis Diagnosis 12/11/2019 NEXTGEN 03:16:00 PM ([facility] EDT [facility]) K58.1 Irritable bowel Irritable bowel Diagnosis 12/11/2019 NEXT GEN syndrome with syndrome with 03:16:00 PM ([facility] constipation constipation EDT [facility]) E11.9 Type 2 diabetes Type 2 diabetes Diagnosis 12/11/2019 NEXT GEN mellitus without mellitus without 03:16:00 PM ( [facility] complications complications EDT Medical - [facility]) E11.621 Type 2 diabetes Type 2 diabetes Diagnosis 11/28/2019 NEXT GEN mellitus with foot mellitus with foot 01:45:00 PM ([facility] ulcer ulcer, with EDT [facility] long-term current [facility] edical use of insulin Group [facility]) E11.40 Type 2 diabetes Type 2 diabetes Diagnosis 11/28/2019 NEXT GEN mellitus with mellitus with 01:45:00 PM ([facility] diabetic neuropathy, diabetic EDT [facility] unspecified neuropathy, unsp [facility]) R53.1 Weakness Weakness Diagnosis 10/23/2019 S - New 03:29:00 AM [facility] VOMITING/SOB VOMITING/SOB Diagnosis 10/23/2019 S - New 03:29:00 AM [facility] E11.9 Type 2 diabetes Type 2 diabetes Diagnosis 10/23/2019 S - New mellitus without mellitus without 03:29:00 AM [place] complications complication T Hospital R52 Pain, unspecified Pain Diagnosis 10/23/2019 S - N ew 03:29:00 AM [facility] 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 Malingerer Diagnosis 10/23/2019 S - New [conscious 03:29:00 AM [facility]] [facility] Z03.818 Encounter for Encounter for Diagnosis 10/23/2019 S - Ne w observation for observation for 03:29:00 AM Freddy helle suspected exposure suspected exposure EDT Hospital to other biological to other biological agents ruled out agent, ruled out F41.9 Anxiety disorder, Anxiety disorder Diagnosis 10/23/2019 HS - New unspecified 03:29:00 AM [facility] Z09 Encounter for Hospital discharge Diagnosis 10/16/2019 NEX TGEN follow-up follow-up 03:04:00 PM ([facility] examination after EDT [facility] completed treatment Count Includes [facility] for conditions other Grou p PC) than malignant neoplasm R10.84 Generalized Generalized Diagnosis 10/16/2019 NEXTGEN abdominal pain abdominal pain 03:04:00 PM ([facility] EDT [facility]) F41.1 Generalized anxiety RACHELL (generalized Diagnosis 10/16/2019 NEXTGEN disorder anxiety disorder) 03:04:00 PM [facility] D64.9 Anemia, unspecified Anemia, unspecified Diagnosis 020 NEXTGEN type 03:04:00 PM ([facility]) E11.21 Type 2 diabetes Type 2 diabetes Diagnosis 10/16/2019 NEXT GEN mellitus with mellitus with 03:04:00 PM ([facility] diabetic nephropathy diabetic EDT [facility] nephropathy [facility]) L89.891 Pressure ulcer of Pressure ulcer of Diagnosis 10/16/2019 NEXTGEN other site, stage 1 other site, stage 1 11:30:0 0 AM ([facility]) K92.2 Gastrointestinal UGIB (upper Diagnosis 09/11/2019 NEXTGEN hemorrhage, gastrointestinal 10:15:00 AM ([facility] bleed[facility]) Z00.00 Encounter for Encntr for general Diagnosis 08/14/2019 NEX TGEN general adult adult medical exam 12:00:00 AM ([facility] examination w/o abnormal EDT Med ical - [place] without abnormal findings [facility] dical findings Group [facility]) I10 Essential (primary) Essential (primary) Diagnosis 020 NEXTGEN hypertension hypertension 12:00:00 [facility] E78.5 Hyperlipidemia, Hyperlipidemia, Diagnosis 08/14/2019 NEXT GEN unspecified unspecified 12:00:00 AM ([facility]) E11.51 Type 2 diabetes Type 2 diabetes w Diagnosis 08/14/2019 NE XTGEN mellitus with diabetic peripheral 12:00:00 AM ( [facility] diabetic peripheral angiopath w/o EDT Tx dical - [place] angiopathy without gangrene Count Includes [facility] gangrene Group [facility]) D63.1 Anemia in chronic Anemia in chronic Diagnosis 08/14/2019 NEXTGEN kidney disease kidney disease 12:00:00 AM ([facility]) R11.10 Vomiting, Vomiting, Diagnosis 06/24/2019 [facility] unspecified unspecified 11:08:00 AM - [place] EDT [facility] E11.43 Type 2 diabetes Type 2 diabetes Diagnosis 06/24/2019 [facility] mellitus with mellitus with 11:08:00 AM - Dylan pena diabetic autonomic diabetic autonomic [facility] (poly)neuropathy (poly)neuropathy Ce nter R11.2 Nausea with Nausea with Diagnosis 06/06/2019 [facility] vomiting, vomiting, 12:16:00 PM - [place] unspecified unspecified [facility] Center M86.60 Other chronic M86.60 [...] Personal history of PERSONAL HISTORY OF Diagnosis [address] [place] [address] other infectious and OTHER INFECTIOUS 09:34:00 AM [facility] parasitic diseases AND PARASITIC EST Car e [place] Z89.511 Acquired absence of ACQUIRED ABSENCE OF Diagnosis [place] right leg below knee RIGHT LEG BELOW 09:34:00 A M [facility] KNEE [facility] NOW[facility] 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 H33.012 Retinal detachment RETINAL DETACHMENT Diagnosis 9 [place] with single break, WITH SINGLE BREAK, 12:17:00 PM [facility] left eye LEFT EYE [employer] VISION F41.1 Generalized anxiety Generalized anxiety Diagnosis [facility] - New disorder disorder 08:48:00 PM [facility] ANXIETY ANXIETY Diagnosis 03/11/2019 [facility] - New 08:48:00 PM [facility] Z89.431 Acquired absence of Acquired absence of Diagnosis [facility] - New right foot right foot 08:48:00 PM [facility] F43.9 Reaction to severe Reaction to severe Diagnosis 9 [facility] - New stress, unspecified stress 08:18:00 PM [facility] F32.89 Other specified Other depressive Diagnosis 03/08/2019 [facility]HS - New depressive episodes episodes 08:18:00 PM [facility] ANXIETY-WAS HERE ANXIETY-WAS HERE Diagnosis 03/08/2019 MH S - New YESTERDAY YESTERDAY 08:18:00 PM [facility] F41.8 Other specified Other specified Diagnosis 03/06/2019 [facility] - New anxiety disorders anxiety disorders 08:48:00 PM [facility] HIGH ANXIETY HIGH ANXIETY Diagnosis 03/06/2019 [facility] - New 08:48:00 PM [facility] Z89.511 Acquired absence of Acquired absence of Diagnosis 019 [facility] - New right leg below knee right lower 08:48:00 PM [facility] extremity below [facility] Hospital knee PAIN LEFT LEG PAIN LEFT LEG Diagnosis 02/24/2019 [facility] - Mo unt 01:23:00 AM [facility] M79.604 Pain in right leg Pain of right lower Diagnosis 9 [facility] - [place] extremity 01:23:00 AM [facility] F41.9 Anxiety disorder, Anxiety disorder Diagnosis 02/24/2019 [facility] - [place] unspecified 01:23:00 AM [facility] D64.89 Other specified D64.89 Diagnosis 02/14/2019 [place] anemias 10:02:00 AM Hospital EST Z51.89 Encounter for other Z51.89 Diagnosis 02/14/2019 [place] specified aftercare 10:02:00 AM Hosp ital EST F41.9 Anxiety disorder, F41.9 Diagnosis 01/29/2019 [place] unspecified 11:08:00 PM Hospital EDT F32.9 Major depressive F32.9 Diagnosis 01/29/[address] [place] disorder, single 11:08:00 PM Hospita l episode, unspecified EDT G89.29 Other chronic pain G89.29 Diagnosis 01/29/2019 [place] 11:08:00 PM Hospital EDT K21.0 Gastro-esophageal K21.0 Diagnosis 01/29/2019 [place] reflux disease with 11:08:00 PM Hosp ital esophagitis EDT K59.00 Constipation, K59.00 Diagnosis 01/29/2019 [place] unspecified 11:08:00 PM Hospital EDT E11.610 Type 2 diabetes E11.610 Diagnosis 01/29/2019 [place] mellitus with 11:08:00 PM Hospital diabetic neuropathic EDT arthropathy Z89.422 Acquired absence of Z89.422 Diagnosis 01/29/2019 [place] other left toe(s) 11:08:00 PM Hospit al EDT D63.8 Anemia in other D63.8 Diagnosis 01/29/2019 [place] chronic diseases 11:08:00 PM Hospita l classified elsewhere EDT 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 Z76.5 Diagnosis 01/29/2019 [place] [conscious 11:08:00 PM Hospital simulation] EDT R11.2 Nausea with R11.2 Diagnosis 01/29/2019 [place] vomiting, 11:08:00 PM Hospital unspecified EDT E86.0 Dehydration E86.0 Diagnosis 01/29/2019 [place] 11:08:00 PM Hospital EDT Z86.14 Personal history of Z86.14 Diagnosis 01/29/2019 [place] Methicillin 11:08:00 PM Hospital resistant EDT Staphylococcus aureus infection Z91.14 Patient's other Z91.14 Diagnosis 01/29/2019 [place] noncompliance with 11:08:00 PM Hospi grazyna medication regimen EDT Z89.511 Acquired absence of Z89.511 Diagnosis 01/29/2019 [place] right leg below knee 11:08:00 PM Hos pital EDT I10 Essential (primary) I10 Diagnosis 01/29/2019 [place] hypertension 11:08:00 PM Hospital EDT K31.84 Gastroparesis K31.84 Diagnosis 01/29/2019 [place] 11:08:00 PM Hospital EDT E87.1 Hypo-osmolality and E87.1 Diagnosis 01/29/2019 [place] hyponatremia 11:08:00 PM Hospital EDT N17.9 Acute kidney N17.9 Diagnosis 01/29/2019 [place] failure, unspecified 11:08:00 PM Hos pital EDT [...] 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 12/27/2018 [place] duodenum 10:53:00 PM Hospital EDT K76.0 Fatty (change of) K76.0 Diagnosis 12/27/2018 [place] liver, not elsewhere 10:53:00 PM Hos pital classified EDT I16.0 Hypertensive urgency I16.0 Diagnosis 12/27/2018 [place] 10:53:00 PM Hospital EDT A41.9 Sepsis, unspecified A41.9 Diagnosis 12/27/2018 [place] organism 10:53:00 PM Hospital EDT Z91.018 Allergy to other Z91.018 Diagnosis 12/27/[address] [place] foods 10:53:00 PM Hospital EDT Z79.84 prison (current) Z79.84 Diagnosis 12/27/2018 [place] use of oral 10:53:00 PM Hospital hypoglycemic drugs EDT Z79.899 Other half-way Z79.899 Diagnosis 12/27/2018 [place] (current) drug 10:53:00 PM Hospital therapy EDT K31.7 Polyp of stomach and K31.7 Diagnosis 12/27/2018 [place] duodenum 10:53:00 PM Hospital EDT Z87.891 Personal history of Z87.891 Diagnosis 12/20/2018 [place] nicotine dependence 11:00:00 AM Hosp ital EDT 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.4 Diagnosis 12/20/2018 [place] use of insulin 11:00:00 AM Hospital EDT 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 12/20/2018 [place] ulcer of other part 11:00:00 AM Hosp ital of left foot with EDT unspecified severity L97.519 Non-pressure chronic L97.519 Diagnosis 12/20/2018 [place] ulcer of other part 11:00:00 AM Hosp ital of right foot with EDT unspecified severity L02.415 Cutaneous abscess of L02.415 Diagnosis 12/20/2018 [place] right lower limb 11:00:00 AM Hospita l EDT M86.671 Other chronic M86.671 Diagnosis 12/20/2018 [place] osteomyelitis, right 11:00:00 AM Hos pital ankle and foot EDT M86.672 Other chronic M86.672 Diagnosis 12/20/2018 [place] osteomyelitis, left 11:00:00 AM Hosp ital ankle and foot EDT L03.115 Cellulitis of right L03.115 Diagnosis 12/20/2018 [place] lower limb 11:00:00 AM Hospital EDT A41.02 Sepsis due to A41.02 Diagnosis 12/20/2018 [place] Methicillin 11:00:00 AM Hospital resistant EDT Staphylococcus aureus Z91.19 Patient's Z91.19 Diagnosis 12/06/2018 [place] noncompliance with 09:02:00 AM Hospi grazyna other medical EDT treatment and regimen R07.9 Chest pain, R07.9 Diagnosis 12/06/2018 [place] unspecified 09:02:00 AM Hospital EDT D50.9 Iron deficiency D50.9 Diagnosis 12/06/2018 [place] anemia, unspecified 09:02:00 AM Hosp ital EDT 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) Z79.2 Diagnosis 12/06/2018 [place] use of antibiotics 09:02:00 AM Hospi graz[place] EDT E11.42 Type 2 diabetes E11.42 Diagnosis 12/06/2018 [place] mellitus with 09:02:00 AM Hospital diabetic EDT polyneuropathy E11.40 Type 2 diabetes E11.40 Diagnosis 11/06/2018 [place] mellitus with 03:10:00 PM Hospital diabetic neuropathy, EDT unspecified A52.16 Charcot's A52.16 Diagnosis 11/06/2018 [place] arthropathy 03:10:00 PM Hospital (tabetic) EDT D64.9 Anemia, unspecified D64.9 Diagnosis 11/06/2018 [place] 03:10:00 PM Hospital EDT M86.8X7 Other osteomyelitis, M86.8X7 Diagnosis 11/06/2018 [place] ankle and foot 03:10:00 PM Hospital EDT L97.514 Non-pressure chronic Chronic ulcer of Diagnosis 9 NEXTGEN ulcer of other part right foot with 05:30:00 PM ([facility] of right foot with necrosis of bone EDT Medical - [facility] necrosis of bone [facility]) L97.524 Non-pressure chronic Chronic ulcer of Diagnosis 9 NEXTGEN ulcer of other part left foot with 05:30:00 PM ([facility] of left foot with necrosis of bone EDT M edical - [facility] necrosis of bone [facility]) M86.471 Chronic Chronic Diagnosis 09/18/2018 NEXTGEN osteomyelitis with osteomyelitis of 05:30:00 PM ([facility] draining sinus, right foot with EDT Medi beata - [place] right ankle and foot draining sinus [facility]) M86.171 Other acute Osteomyelitis of Diagnosis 08/26/2018 NEXTGEN osteomyelitis, right foot, right, acute 06:30:0 0 PM ([facility] ankle and foot EDT Medical - [facility]) E11.42 Type 2 diabetes Diabetic Diagnosis 07/17/2018 NEXTGEN mellitus with polyneuropathy 02:00:00 PM ([facility] diabetic associated with EDT Medical - [place] polyneuropathy type [address] 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) L97.512 Non-pressure chronic Ulcer of right foot Diagnosis 2018 NEXTGEN ulcer of other part with fat layer 07:15:00 PM ([facility] of right foot with exposed EDT Medica [facility]) L02.612 Cutaneous abscess of Abscess of left Diagnosis 06/24/2018 NEXTGEN left foot foot 05:45:00 PM ([facility] EDT Medical - [facility]) M14.671 Charcot's joint, Charcot's joint of Diagnosis 06/24/2018 NEXTGEN right ankle and foot right foot 05:45:00 PM ([facility] EDT Medical - [facility]) M14.672 Charcot's joint, Charcot's joint of Diagnosis 06/24/2018 NEXTGEN left ankle and foot left foot 05:45:00 [facility] L02.01 Cutaneous abscess of Abscess of cheek Diagnosis 9 NEXTGEN face 10:45:00 AM ([facility] EST [facility]) N52.1 Erectile dysfunction Erectile Diagnosis 06/06/2018 NEXT GEN due to diseases dysfunction due to 10:40:00 AM ([facility] classified elsewhere diseases classified EST [facility] elsewhere [facility]) L97.513 Non-pressure chronic Ulcer of right foot Diagnosis 2018 NEXTGEN ulcer of other part with necrosis of 10:15:00 A M ([facility] of right foot with muscle EST Medica l - [place] necrosis of muscle [facility]) L97.522 Non-pressure chronic Chronic ulcer of Diagnosis 9 NEXTGEN ulcer of other part left foot with fat 10:15:00 AM ([facility] of left foot with layer exposed EST [facility] fat layer exposed [facility]) Surgeries/Procedures Procedure Description Date Indications Data Source(s) OFFICE/OUTPATIENT VISIT OFFICE/OUTPATIENT VISIT NEXTGEN EST EST 0 ([facility] 12:00:00 [facility]) RMVL DEVITAL TIS 20 CM/< RMVL DEVITAL TIS 20 NEXTGEN CM/< 0 ([facility] 12:00:00 [facility]) Injection, ondansetron Ondansetron hcl NE XTGEN hydrochloride, per 1 mg injection 0 ([facility] 12:00:00 [facility]) THER/PROPH/DIAG IV INF THER/PROPH/DIAG IV INF NEXTGEN INIT INIT 0 ([facility] 12:00:00 [facility]) INPATIENT CONSULTATION INPATIENT CONSULTATION NEXTGEN 0 ([facility] 12:00:00 [facility]) INPATIENT CONSULTATION INPATIENT CONSULTATION NEXTGEN 0 ([facility] 12:00:00 [facility]) NM Lung Scan Perfusion NM [facility] Lung Scan Perfusion 0 [facility] 11:18:00 AM EDT - 0 11:18:00 AM EDT Standard chest X-ray [facility] ore (procedure) 0 [facility] 05:09:00 AM EDT - 0 05:09:00 AM EDT Electrocardiographic [facility] procedure (procedure) 0 [facility] 04:42:00 AM EDT - 0 06:17:00 AM EDT Culture Bacteria [facility] 0 [facility] 04:36:58 AM EDT - 0 05:36:11 AM EDT Culture Bacteria [facility] 0 [facility] 04:36:58 AM EDT - 0 05:36:10 AM EDT Sedimentation Rate, [facility] re Erythrocyte 0 [facility] 04:36:58 AM EDT - 0 05:32:00 AM EDT Lipase, Serum [facility] 0 [facility] 04:36:58 AM EDT - 0 05:32:00 AM EDT Alcohol Ethyl, Blood [facility] 0 [facility] 04:36:58 AM EDT - 0 05:32:00 AM EDT Comprehensive Metabolic [facility] Panel 0 [facility] 04:36:58 AM EDT - 0 05:32:00 AM EDT CBC w/Auto Differential- [facility] NR/SECC Only 0 [facility] 04:36:58 AM EDT - 0 05:32:00 AM EDT TRANS CARE MGMT 14 DAY TRANS CARE MGMT 14 DAY NEXTGEN DISCH DISCH 0 ([facility] 12:00:00 Medical - [place] AM EDT [facility]) CHRON CARE MGMT SRVC 20 CHRON CARE MGMT SRVC 20 NEXTGEN MIN MIN 0 ([facility] 12:00:00 Medical - [facility] AM EDT [facility]) SUBSEQUENT HOSPITAL CARE SUBSEQUENT HOSPITAL NEXTGEN CARE 0 ([facility] 12:00:00 [facility]) INITIAL HOSPITAL CARE INITIAL HOSPITAL CARE NEXTGEN 0 ([facility] 12:00:00 [facility]) TRANS CARE MGMT 7 DAY TRANS CARE MGMT 7 DAY NEXTGEN DISCH DISCH 0 ([facility] 12:00:00 [facility]) SUBSEQUENT HOSPITAL CARE SUBSEQUENT HOSPITAL NEXTGEN CARE 0 ([facility] 12:00:00 [facility]) EGD DIAGNOSTIC BRUSH WASH EGD DIAGNOSTIC BRUSH NEXTGEN WASH 0 ([facility] 12:00:00 [facility]) HOSPITAL DISCHARGE DAY HOSPITAL DISCHARGE DAY NEXTGEN 0 ([facility] 12:00:00 [facility]) SUBSEQUENT HOSPITAL CARE SUBSEQUENT HOSPITAL NEXTGEN CARE 0 ([facility] 12:00:00 [facility]) COMPLETE CBC W/AUTO DIFF COMPLETE CBC W/AUTO NEXTGEN WBC DIFF WBC 0 ([facility] 12:00:00 [facility]) ASSAY THYROID STIM HORMONE ASSAY THYROID STIM NEXTGEN HORMONE 0 ([facility] 12:00:00 [facility]) COMPREHEN METABOLIC PANEL COMPREHEN METABOLIC NEXTGEN PANEL 0 ([facility] 12:00:00 [facility]) ASSAY OF FREE THYROXINE ASSAY OF FREE THYROXINE NEXTGEN 0 ([facility] 12:00:00 [facility]) ASSAY OF PSA TOTAL ASSAY OF PSA TOTAL NEX TGEN 0 ([facility] 12:00:00 [facility]) IRON BINDING TEST IRON BINDING TEST NEXTG EN 0 ([facility] 12:00:00 [facility]) ASSAY OF FOLIC ACID SERUM ASSAY OF FOLIC ACID NEXTGEN SERUM 0 ([facility] 12:00:00 [facility]) ASSAY OF FERRITIN ASSAY OF FERRITIN NEXTG EN 0 ([facility] 12:00:00 [facility]) VITAMIN B-12 VITAMIN B-12 NEXTGEN 0 ([facility] 12:00:00 [facility]) VITAMIN D 25 HYDROXY VITAMIN D 25 HYDROXY NEXTGEN 0 ([facility] 12:00:00 [facility]) UR ALBUMIN QUANTITATIVE UR ALBUMIN QUANTITATIVE NEXTGEN 0 ([facility] 12:00:00 [facility]) URINALYSIS AUTO W/SCOPE URINALYSIS AUTO W/SCOPE NEXTGEN 0 ([facility] 12:00:00 [facility]) LIPID PANEL LIPID PANEL NEXTGEN 0 ([facility] 12:00:00 [facility]) ROUTINE VENIPUNCTURE ROUTINE VENIPUNCTURE NEXTGEN 0 ([facility] 12:00:00 [facility]) PREV VISIT EST AGE 40-64 PREV VISIT EST AGE 05 NEXTGEN 40-64 0 ([facility] 12:00:00 [facility]) EGD CONTROL BLEEDING ANY EGD CONTROL BLEEDING NEXTGEN ANY 0 ([facility] 12:00:00 [facility]) ERCP REMOVE DUCT CALCULI ERCP REMOVE DUCT NEXTGEN CALCULI 0 ([facility] 12:00:00 [facility]) INITIAL HOSPITAL CARE INITIAL HOSPITAL CARE NEXTGEN 0 ([facility] 12:00:00 [facility]) INPATIENT CONSULTATION INPATIENT CONSULTATION NEXTGEN 0 ([facility] 12:00:00 [facility] EST [facility]) Electrocardiographic [place] procedure (procedure) 0 Hospit al 12:00:00 AM EST Physical therapy procedure [place] (regime/therapy) 9 Hospital 12:00:00 AM EDT Diagnostic radiography of [place] abdomen (procedure) 9 Hospital 12:00:00 AM EDT Physical therapy procedure [place] (regime/therapy) 9 Hospital 12:00:00 AM EDT Probe Cover With Gel 48 [place] In. 9 Hospital 12:00:00 AM EDT PowerGlide Pro 18G x 10CM [place] 9 Hospital 12:00:00 AM EDT Diagnostic radiography of [place] abdomen (procedure) 9 Hospital 12:00:00 AM EDT Plain chest X-ray [place] (procedure) 9 Hospital 12:00:00 AM EDT Electrocardiographic [place] procedure (procedure) 9 Hospit wv 12:00:00 AM EDT Diagnostic radiography of [place] abdomen (procedure) 9 Hospital 12:00:00 AM EDT Electrocardiographic [place] procedure (procedure) 9 Hospit wv 12:00:00 AM EDT Computed tomography of [place] abdominal vascular 9 Hospital structures (procedure) 12:00:00 AM EDT Computed tomography of [place] abdominal vascular 9 [facility] structures (procedure) 12:00:00 AM EDT Physical therapy procedure [place] (regime/therapy) 9 Hospital 12:00:00 AM EDT Physical therapy procedure [place] (regime/therapy) 9 Hospital 12:00:00 AM EDT Oxygen therapy (procedure) [place] 9 Hospital 12:00:00 AM EDT DETACHMENT AT RIGHT LOWER [place] LEG, HIGH, OPEN APPROACH 9 Hos pital 12:00:00 AM EDT TRANSFUSE NONAUT RED BLOOD [place] CELLS IN PERIPH VEIN, PERC 9 H ospital 12:00:00 AM EDT Oxygen therapy (procedure) [place] 9 Hospital 12:00:00 AM EDT Physical therapy procedure [place] (regime/therapy) 9 Hospital 12:00:00 AM EDT Physical therapy procedure [place] (regime/therapy) 9 Hospital 12:00:00 AM EDT Ultrasonography of abdomen [place] (procedure) 9 Hospital 12:00:00 AM EDT Ultrasonography of abdomen [place] (procedure) 9 Hospital 12:00:00 AM EDT Plain chest X-ray [place] (procedure) 9 Hospital 12:00:00 AM EDT Plain chest X-ray [place] (procedure) 9 Hospital 12:00:00 AM EDT INSERTION OF INFUSION [place] DEVICE INTO R [facility], PERC 9 H ospital APPROACH 12:00:00 AM EDT EXCISION OF LOWER [place] ESOPHAGUS, ENDO, DIAGN 9 [facility] 12:00:00 AM EDT EXCISION OF DUODENUM, [place] ENDO, DIAGN 9 Hospital 12:00:00 AM EDT [...] Probe Cover With Gel 48 [place] In. 9 Hospital 12:00:00 AM EDT Ultrasound scan of upper [place] limb vessels (procedure) 9 [facility] pital 12:00:[address] 18G x 10CM [place] 9 Hospital 12:00:00 AM EDT Probe Cover With Gel 48 [place] In. 9 Hospital 12:00:00 AM EDT Ultrasound scan of upper [place] limb vessels (procedure) 9 [facility] p[facility] 12:00:[address] 18G x 10CM [place] 9 Hospital 12:00:00 AM EDT Physical therapy procedure [place] (regime/therapy) 9 Hospital 12:00:00 AM EDT Physical therapy procedure [place] (regime/therapy) 9 Hospital 12:00:00 AM EDT Echocardiography [place] (procedure) 9 Hospital 12:00:00 AM EDT Plain chest X-ray [place] (procedure) 9 Hospital 12:00:00 AM EDT Echocardiography [place] (procedure) 9 Hospital 12:00:00 AM EDT Plain chest X-ray [place] (procedure) 9 Hospital 12:00:00 AM EDT DRAINAGE OF RIGHT LOWER [place] LEG MUSCLE, OPEN APPROACH 9 spital 12:00:00 AM EDT Plain chest X-ray [place] (procedure) 9 Hospital 12:00:00 AM EDT Electrocardiographic [place] procedure (procedure) 9 [facility] 12:00:00 AM EDT Plain chest X-ray [place] (procedure) 9 Hospital 12:00:00 AM EDT Electrocardiographic [place] procedure (procedure) 9 Hospit wv 12:00:00 AM EDT Electrocardiographic [place] procedure (procedure) 9 Hospit al 12:00:00 AM EDT Electrocardiographic [place] [facility] 18G x 8CM [place] 9 Hospital 12:00:[address] 18G x 8CM [place] 9 Hospital 12:00:00 AM EDT Doppler ultrasound of [place] vessels of both lower 9 [facility] extremities 12:00:00 AM EDT X-ray of right foot [place] (procedure) 9 Hospital 12:00:00 AM EDT X-ray of left foot [place] (procedure) 9 Hospital 12:00:00 AM EDT Electrocardiographic [place] procedure (procedure) 9 [facility] 12:00:00 AM EDT Plain chest X-ray [place] (procedure) 9 Hospital 12:00:00 AM EDT Doppler ultrasound of [place] vessels of both lower 9 [facility] extremities 12:00:00 AM EDT X-ray of right foot [place] (procedure) 9 Hospital 12:00:00 AM EDT X-ray of left foot [place] (procedure) 9 Hospital 12:00:00 AM EDT Electrocardiographic [place] procedure (procedure) 9 [facility] 12:00:00 AM EDT Plain chest X-ray [place] (procedure) 9 Hospital 12:00:[address] 18G x 10CM [place] 9 Hospital 12:00:00 AM EDT Probe Cover With Gel 48 [place] In. 9 Hospital 12:00:00 AM EDT Physical therapy procedure [place] (regime/therapy) 9 Hospital 12:00:[address] 18G x 10CM [place] 9 Hospital 12:00:00 AM EDT Probe Cover With Gel 48 [place] In. 9 Hospital 12:00:00 AM EDT Physical therapy procedure [place] (regime/therapy) 9 Hospital 12:00:00 AM EDT DRAINAGE OF RIGHT FOOT [place] SKIN, EXTERNAL APPROACH, 9 Hos pital DIAGNOSTIC 12:00:00 AM EDT EXCISION OF RIGHT [place] METATARSAL, OPEN APPROACH 9 Ho spital 12:00:00 AM EDT EXCISION OF LEFT [place] METATARSAL, OPEN APPROACH 9 Ho spital 12:00:00 AM EDT Magnetic resonance imaging [place] of right foot with 9 Hospital contrast 12:00:00 AM EDT Magnetic resonance imaging [place] of left foot with contrast 9 H ospital 12:00:00 AM EDT Magnetic resonance imaging [place] of right foot with 9 Hospital contrast 12:00:00 AM EDT Magnetic resonance imaging [place] of left foot with contrast 9 H ospital 12:00:00 AM EDT Plain chest X-ray [place] (procedure) 9 Hospital 12:00:00 AM EDT Plain chest X-ray [place] (procedure) 9 Hospital 12:00:00 AM EDT Incentive spirometry [place] (regime/therapy) 9 Hospital 12:00:00 AM EDT Physical therapy procedure [place] (regime/therapy) 9 Hospital 12:00:00 AM EDT Incentive spirometry [place] (regime/therapy) 9 Hospital 12:00:00 AM EDT Physical therapy procedure [place] (regime/therapy) 9 Hospital 12:00:00 AM EDT Ultrasound scan of lower [place] limb vessels (procedure) 9 Hos pital 12:00:00 AM EDT Plain chest X-ray [place] (procedure) 9 Hospital 12:00:00 AM EDT X-ray of right foot [place] (procedure) 9 Hospital 12:00:00 AM EDT X-ray of left foot [place] (procedure) 9 [facility] 12:00:00 AM EDT UBALDO SUBQ TISSUE 20 SQ CM/< UABLDO SUBQ TISSUE 20 SQ NEXTGEN CM/< 9 ([facility] 12:00:00 Medical - [facility] AM EDT [facility]) UBALDO BONE 20 SQ CM/< UBALDO BONE 20 SQ CM/< N EXTGEN 9 ([facility] 12:00:00 Medical - [facility] AM EDT [facility]) UBALDO MUSC/FASCIA 20 SQ CM/< UBALDO MUSC/FASCIA 20 SQ NEXTGEN CM/< 9 ([facility] 12:00:00 Medical - [facility] AM EDT [facility]) OFFICE/OUTPATIENT VISIT OFFICE/OUTPATIENT VISIT NEXTGEN EST EST 9 ([facility] 12:00:00 Medical - [facility] AM EDT [facility]) ELECTROCARDIOGRAM REPORT ELECTROCARDIOGRAM NEXTGEN REPORT 9 ([facility] 12:00:00 Medical - [facility] AM EDT [facility]) X-RAY EXAM CHEST 1 VIEW X-RAY EXAM CHEST 1 VIEW NEXTGEN 9 ([facility] 12:00:00 Medical - [facility] AM EDT [facility]) 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 ID Date Data Source [id number] 11/10/2019 06:03:00 PM EDT [facility] Name Value Range Interpretation Description Data Sup porting Code Source(s) Document(s ) SARS [facility] coronavirus 2 RNA This lab was ordered by [facility] and reported by [facility]. ID Date Data Source [id number] 11/07/2019 01:25:00 PM EDT [facility] Name Value Range Interpretation Description Data Sup porting Code Source(s) Document(s ) SARS [facility] coronavirus 2 RNA This lab was ordered by [facility] and reported by [facility]. ID Date Data Source [id number] 10/27/2019 04:47:00 PM EDT [facility] Name Value Range Interpretation Description Data Sup porting Code Source(s) Document(s ) 2019 Novel [facility] Coronavirus RNA Interpretation Unspecified Specimen Qualitative MEG Probe Detection This lab was ordered by [facility] and reported by [facility]. ID Date Data Source [id number] 10/23/2019 07:21:33 PM EDT [facility] Name Value Range Interpretation Description [...] th e patient. ID Date Data Source [id number] 10/23/2019 07:21:33 PM EDT [facility] System Name Value Range Interpretation Description Data Source(s ) Supporting Code Document(s ) LacticAc 2.1 Above upper panic Lactic Acid [facility] idWholeB mmol/L limits [facility] lood*NEW *NEW CAROLYN CAROLYN ONLY* ONLY* Result Reporting|Telephone|Pam ovalle RN/RB| 10/23/2019 at 6:19 AMCalled to:Pam Rudolph RN/RBTech Name:SFReadback by:Sherlyn Rudolph RN/RB 10/23/2019 / 6:19 AM ID Date Data Source [id number] 10/23/2019 07:21:33 PM EDT [facility] Name Value Range Interpretation Description Data Sup porting Code Source(s) Document(s ) 13819-9 NEGATIVE Testing Normal (applies COVID-19.. [place] was performed to [facility] em using Tony [...] Range: NEGATIVE . ID Date Data Source [id number] 10/23/2019 07:21:33 PM EDT [facility] alth [...] Health results) System ID Date Data Source [id number] 10/23/2019 07:21:33 PM EDT [facility] shauna [...] urine test abnormalities ID Date Data Source [id number] 10/23/2019 07:21:33 PM EDT [facility] alth [...] Heart = 3.0-4.5 ID Date Data Source [id number] 10/23/2019 07:21:33 PM EDT [facility] Name Value Range Interpretation Description Data Sup porting Code Source(s) Document(s ) aPTT in Blood 29.3 Normal (applies Activated [facility] by Coagulation {Seconds to non-numeric Partial Health assay } results) Thromboplastin System Time ID Date Data Source [id number] 10/23/2019 11:18:[address] [facility] Nuclear Medicine Examination: Lung Perfu moisés scan [...] [place], at 11:54 EDTTel , Service support ,[phone] Name Value Range Interpretation Code Description Data Jackie rce(s) Supporting Document(s ) ID Date Data Source [id number] 10/23/2019 05:32:[address] [facility] Name Value Range Interpretation Code Description Data Jackie rce(s) Supporting Document(s ) COVID-19.. [facility] This lab was ordered by [facility] and reported by [facility]. ID Date Data Source [id number] 10/23/2019 05:09:[address] [facility] HISTORY: Fever;EXAMINATION/TECHNIQUE:XR Chest 1 View:COMPARISON: None FINDINGS:LINES/DEVICES:None.LUNG S:No airspace consolidation.Unremarkable inte rstitium.No effusion.Nopneumothorax.MEDIASTINUM: No cardiomegaly.MUSCULOSKELETAL: No acute osseousfinding.IMPRESSION:No evidence of acute cardiopulmonary process. ElectronicallySigned by Clemente Mays MD on 10/23/2019 at 0602 Reported and signed by: Clarissa Caseyion Ph ysician ServicesSSM REHAB DR CLEMENTE MAYS [place] [phone]:Ronnell Mays MD at 6:02 EDTTel , Service support [phone] Name Value Range Interpretation Code Description Data Jackie rce(s) Supporting Document(s ) ID Date Data Source [id number] 10/17/2019 06:30:00 PM EDT [facility] Name Value Range Interpretation Description Data Sup porting Code Source(s) Document(s ) SARS [facility] coronavirus 2 RNA This lab was ordered by Tr[facility] Vyas and reported by [facility]. ID Date Data Source [id number] 10/11/2019 05:04:00 PM EDT [facility] Name Value Range Interpretation Description Data Sup porting Code Source(s) Document(s ) SARS [facility] coronavirus 2 RNA This lab was ordered by [facility] and reported by [facility]. ID Date Data Source [id number] 10/11/2019 06:29:00 AM EDT [facility] Name Value Range Interpretation Description Data Sup porting Code Source(s) Document(s ) SARS [facility] coronavirus 2 RNA This lab was ordered by [facility]rit[facility] and reported by [facility]. ID Date Data Source [id number] 10/01/2019 09:30:00 PM EDT [facility] Name Value Range Interpretation Description Data Sup porting Code Source(s) Document(s ) SARS [facility] coronavirus 2 RNA This lab was ordered by [facility] and reported by [facility]. ID Date Data Source [id number] 10/01/2019 12:06:00 PM EDT [facility] Name Value Range Interpretation Description Data Sup porting Code Source(s) Document(s ) SARS [facility] coronavirus 2 RNA This lab was ordered by Tr[facility] Vyas and reported by [facility]. ID Date Data Source [id number] 09/24/2019 03:15:00 AM EDT [facility] Name Value Range Interpretation Description Data Sup porting Code Source(s) Document(s ) 2018 Novel [facility] Coronavirus RNA Interpretation Unspecified Specimen Qualitative MEG Probe Detection This lab was ordered by [facility] and reported by [facility]. ID Date Data Source [id number] 09/03/2019 02:51:00 AM EDT [facility] Name Value Range Interpretation Code Description Data Jackie rce(s) Supporting Document(s ) SARS-CoV-2 [facility] N gene Resp Ql MEG+probe This lab was ordered by [facility] and reported by [facility]. ID Date Data Source [id number] 08/26/2019 02:01:00 AM EDT [facility] Name Value Range Interpretation Description Data Sup porting Code Source(s) Document(s ) 2018 Novel [facility] Coronavirus RNA Interpretation Unspecified Specimen Qualitative MEG Probe Detection This lab was ordered by [facility] and reported by [facility]. ID Date Data Source [id number] 08/11/2019 03:01:00 AM EDT [facility] Name Value Range Interpretation Description Data Sup porting Code Source(s) Document(s ) 2018 Novel [facility] Coronavirus RNA Interpretation Unspecified Specimen Qualitative MEG Probe Detection This lab was ordered by [facility] and reported by [facility]. ID Date Data Source [id number] 08/11/2019 03:01:00 AM EDT [facility] Name Value Range Interpretation Description Data Sup porting Code Source(s) Document(s ) 2019 Novel [facility] Coronavirus RNA Interpretation Unspecified Specimen Qualitative MEG Probe Detection This lab was ordered by [facility] and reported by [facility]. ID Date Data Source [id number] 06/25/2019 07:34:00 AM EDT [facility] Added by Discern Rule GLB_ADD_GFR_BMP Name Value Range Interpretation Code Description Data Jackie rce(s) Supporting Document(s ) eGFR-AA 62 >=60 NO [facility] mL/min/[address] The CKD-EPI equation for non- Nini [...] Mild decrease* G3a 45-59 Mild to moderate prmfpqquI1u 30-44 Moderate to s evere decreaseG4 15-29 Severe decreaseG5 14 or less Kidney fa ilure eGFR-MEG 51 mL/min/1.73m2 >=60 LO [facility] The CKD-EPI equation for non- [facility] rican individuals is used to [...] Mild decrease* G3a 45-59 Mild to moderate mchayzqjP9e 30-44 Moderate to s evere decreaseG4 15-29 Severe decreaseG5 14 or less [facility] ID Date Data Source [id number] 06/25/2019 07:34:00 AM EDT [facility] Name Value Range Interpretation Description Data Sup porting Code Source(s) Document(s ) Glucose Lvl 172 65-99 [place] mg/dL [facility] BUN 25.0 7.0-21.0 [place] mg/dL [facility] Creatinine 1.45 0.70-1.2 [place] mg/dL 0 [facility] BUN/Creat 17.2 7.0-29.0 NO [place] Ratio ratio [facility] Sodium Lvl 136 136-146 [place] mmol/L [facility] Potassium Lvl 3.1 3.5-5.1 [place] mmol/L [facility] Chloride 101 98-109 [place] mmol/L [facility] CO2 27 17-33 [place] mmol/L [facility] AGAP 8 5-15 NO [facility] Calcium Lvl 8.5 8.3-10.2 [place] mg/dL [facility] ID Date Data Source [id number] 06/25/2019 07:03:00 AM EDT [facility] Name Value Range Interpretation Description Data Sup porting Code Source(s) Document(s ) Neut Auto 60.7 % 40.0-70.0 NO [facility] Lymph Auto 29.6 % 22.0-44.0 NO [facility] [place] Auto 9.2 % 4.0-11.0 NO [facility] Eos Auto 0.2 % 0.0-8.0 NO [facility] Baso Auto 0.3 % 0.0-3.0 NO [facility] Neut 5.2 1.8-7.7 NO [place] Absolute x10(3)/[facility] Lymph 2.5 1.0-4.8 NO [place] Absolute x10(3)/[facility] [place] 0.8 0.2-1.2 NO [place] Absolute x10(3)/[facility] Eos Absolute 0.0 0.0-0.9 [place] x10(3)/[facility] Baso 0.0 0.0-0.3 NO [place] Absolute x10(3)/[facility] ID Date Data Source [id number] 06/25/2019 07:03:00 AM EDT [facility] Name Value Range Interpretation Description Data Sup porting Code Source(s) Document(s ) WBC 8.5 4.5-11.0 NO [facility] x10(3)/[facility] RBC 3.71 4.50-5.90 [facility] x10(6)/[facility] Hgb 9.1 gm/dL 13.5-17.5 [facility] Hct 28.2 % 41.0-53.0 [facility] MCV 76 fL 80-100 [facility] MCH 24.5 pg 26.0-34.0 [facility] MCHC 32.2 31.0-37.0 [facility] gm/[facility] RDW 14.8 % 11.5-14.5 [facility] Platelet 379 150-350 [facility] x10(3)/[facility] MPV 7.1 fL 7.4-10.4 [facility] ID Date Data Source [id number] 06/24/2019 09:35:00 AM EDT [facility] Name Value Range Interpretation Description Data Sup porting Code Source(s) Document(s ) Phosphorus 4.3 mg/dL 2.5-5.0 [facility] ID Date Data Source [id number] 06/24/2019 09:35:00 AM EDT [facility] patient refused blood work.CIELO Burris was notified.As per patient request, RN to draw blood from port .06/24/2019 08:07:16 EDT, ENK Name Value Range Interpretation Description Data Sup porting Code Source(s) Document(s ) Magnesium 1.9 mg/dL 1.6-2.5 [facility] ID Date Data Source [id number] 06/24/2019 09:35:00 AM EDT [facility] Added by Discern Rule GLB_ADD_GFR_CMP Name Value Range Interpretation Code Description Data Jackie rce(s) Supporting Document(s ) eGFR-AA 38 >=60 [facility] mL/min/1.[address] [place] [address] The CKD-EPI equation for non- Nini rican [...] Mild decrease* G3a 45-59 Mild to moderate [id number] 30-44 Moderate to s evere decreaseG4 15-29 Severe decreaseG5 14 or less Kidney fa ilure eGFR-MEG 31 mL/min/1.73m2 >=60 [facility] The CKD-EPI equation for non- Nini [...] Mild decrease* G3a 45-59 Mild to moderate oxyvmpbpO2b 30-44 Moderate to s evere decreaseG4 15-29 Severe decreaseG5 14 or less Kidney fa ilure ID Date Data Source [id number] 06/24/2019 09:35:00 AM EDT [facility] patient refused blood work .Cielo Burris was notified.As per patient request , Cielo to draqw blood from port.06/24/2019 08:05:11 EDT, ENK Name Value Range Interpretation Description Data Sup porting Code Source(s) Document(s ) Glucose Lvl 151 65-99 [place] mg/dL [facility] BUN 29.0 7.0-21.0 [place] mg/dL [facility] Creatinine 2.20 0.70-1.2 [place] mg/dL 0 [facility] BUN/Creat 13.2 7.0-29.0 NO [place] Ratio ratio [facility] Sodium Lvl 137 136-146 NO [place] mmol/L [facility] Potassium Lvl 3.5 3.5-5.1 NO [place] mmol/L [facility] Chloride 100 98-109 NO [place] mmol/L [facility] CO2 26 17-33 [place] mmol/L [facility] AGAP 11 5-15 NO [facility] Calcium Lvl 8.3 8.3-10.2 NO [place] mg/dL [facility] Total Protein 7.2 6.0-8.3 NO [place] gm/dL [facility] Albumin Lvl 3.0 3.7-5.3 [place] gm/dL [facility] Glob 4.2 2.0-4.5 [facility] A/G Ratio 0.7 1.0-2.2 [facility] Bili Total 0.3 0.4-1.1 [place] mg/dL [facility] Alk Phos 106 IU/L 30-125 NO [facility] AST 11 IU/L 10-35 NO [facility] ALT 11 IU/L 8-40 NO [facility] ID Date Data Source [id number] 06/24/2019 09:15:00 AM EDT [facility] Name Value Range Interpretation Description Data Sup porting Code Source(s) Document(s ) Neut Auto 65.3 % 40.0-70.0 NO [facility] Lymph Auto 25.1 % 22.0-44.0 NO [facility] [place] Auto 9.2 % 4.0-11.0 NO [facility] Eos Auto 0.2 % 0.0-8.0 NO [facility] Baso Auto 0.2 % 0.0-3.0 NO [facility] Neut 6.0 1.8-7.7 NO [place] Absolute x10(3)/[facility] Lymph 2.3 1.0-4.8 NO [place] Absolute x10(3)/[facility] [place] 0.8 0.2-1.2 NO [place] Absolute x10(3)/[facility] Eos Absolute 0.0 0.0-0.9 [place] x10(3)/[facility] Baso 0.0 0.0-0.3 NO [place] Absolute x10(3)/[facility] ID Date Data Source [id number] 06/24/2019 09:15:00 AM EDT [facility] patient refused blood work . Cielo wang.As per PAtient request , Rn has to draw patient from port .06/24/2019 08:03: 02 EDT, ENK Name Value Range Interpretation Description Data Sup porting Code Source(s) Document(s ) WBC 9.2 4.5-11.0 NO [place] x10(3)/[facility] RBC 3.60 4.50-5.90 [place] x10(6)/[facility] Hgb 9.0 gm/dL 13.5-17.5 [facility] Hct 27.6 % 41.0-53.0 [facility] MCV 77 fL 80-100 [facility] MCH 24.9 pg 26.0-34.0 [facility] MCHC 32.5 31.0-37.0 NO [facility] gm/dL [facility] RDW 15.1 % 11.5-14.5 [facility] Platelet 395 150-350 [facility] x10(3)/[facility] MPV 7.3 fL 7.4-10.4 [facility] ID Date Data Source [id number] 06/23/2019 04:40:00 PM EDT [facility] Patient Name: KARSTEN GIBBS EMRN: [id number] Interventional RadiologyACCESSION EXAM DATE/TIME PROCEDURE ORDERING PROVIDER [id number] 06/23/2019 16:01 EDT IR Ins Picc Wo [...] subcu taneous infiltrationAccess: Right brachial veinDevice: 4 Czech by 35 cmClosure: Dr elias sterile dressingContrast: [...] time of puncture, and sent to the [facility]. The catheter was tested, demonstrating good [...] Supporting Document(s ) ID Date Data Source [id number] 06/23/2019 05:05:00 AM EDT [facility] Patient Name: KARSTEN GIBBS EMRN: [id number] Computed TomographyACCESSION EXAM DATE/TIME PROCEDURE ORDERING PROVIDER [id number] 06/23/2019 04:[address] Abdomen Pelvis Myra [...] Supporting Document(s ) ID Date Data Source [id number] 06/23/2019 04:12:00 AM EDT [facility] Name Value Range Interpretation Description Data Sup porting Code Source(s) Document(s ) Segs 89 % 40-70 [facility] Band 0 % 0-6 [facility] Neutr 16.8 1.8-7.7 [place] [facility] Absolute x10(3)/[facility] Lymph 8 % 22-44 [facility] Monocyte 3 % 4-11 [facility] Eos 0 % 0-8 NO [facility] Basophil 0 % 0-3 [facility] RBC Morph Normocyt AB [facility] /chrom [facility] Anisocyte NO [facility] Platelet NO [facility] Clumps [facility] Plt Estimate NO [facility] ID Date Data Source [id number] 06/23/2019 03:38:00 AM EDT [facility] Added by Discern Rule GLB_ADD_GFR_CMP Name Value Range Interpretation Code Description Data Jackie rce(s) Supporting Document(s ) eGFR-AA 74 >=60 [facility] mL/min/[address] The CKD-EPI equation for non- Nini [...] Mild decrease* G3a 45-59 Mild to moderate fujmypkxO6g 30-44 Moderate to s evere decreaseG4 15-29 Severe decreaseG5 14 or less Kidney fa ilure eGFR-MEG 61 mL/min/1.73m2 >=60 [facility] The CKD-EPI equation for non- Nini rican [...] Mild decrease* G3a 45-59 Mild to moderate tpantnkeY9m 30-44 Moderate to s evere decreaseG4 15-29 Severe decreaseG5 14 or less Kidney fa ilure ID Date Data Source [id number] 06/23/2019 03:38:00 AM EDT [facility] Name Value Range Interpretation Code Description Data Jackie rce(s) Supporting Document(s ) Lipase Lvl 19 IU/L 10-59 NO [facility] ID Date Data Source [id number] 06/23/2019 03:38:00 AM EDT [facility] Name Value Range Interpretation Description Data Sup porting Code Source(s) Document(s ) Glucose Lvl 202 65-99 [place] mg/dL [facility] BUN 15.0 7.0-21.0 NO [place] mg/dL [facility] Creatinine 1.24 0.70-1.2 [place] mg/dL 0 [facility] BUN/Creat 12.1 7.0-29.0 NO [place] Ratio ratio [facility] Sodium Lvl 132 136-146 [place] mmol/L [facility] Potassium Lvl 4.1 3.5-5.1 NO [place] mmol/L [facility] Chloride 98 98-109 NO [place] mmol/L [facility] CO2 21 17-33 NO [place] mmol/L [facility] AGAP 13 5-15 [place] [facility] Calcium Lvl 8.8 8.3-10.2 NO [place] mg/dL [facility] Total Protein 8.1 6.0-8.3 NO [place] gm/dL [facility] Albumin Lvl 3.1 3.7-5.3 [place] gm/dL [facility] Glob 5.0 2.0-4.5 [facility] A/G Ratio 0.6 1.0-2.2 [facility] ratio [facility] Bili Total 1.1 0.4-1.1 [place] mg/dL [facility] Alk Phos 128 IU/L 30-125 [facility] AST 28 IU/L 10-35 [facility] ALT 15 IU/L 8-40 NO [facility] ID Date Data Source [id number] 06/23/2019 03:35:00 AM EDT [facility] Name Value Range Interpretation Description Data Sup porting Code Source(s) Document(s ) WBC 18.9 4.5-11.0 [place] x10(3)/[facility] RBC 4.01 4.50-5.90 [place] x10(6)/[facility] Hgb 9.9 gm/dL 13.5-17.5 [facility] Hct 30.2 % 41.0-53.0 [facility] MCV 76 fL 80-100 [facility] MCH 24.8 pg 26.0-34.0 [facility] MCHC 32.8 31.0-37.0 [place] gm/dL [facility] RDW 15.1 % 11.5-14.5 [facility] Platelet 404 150-350 [place] x10(3)/[facility] MPV 8.7 fL 7.4-10.4 [facility] ID Date Data Source [id number] 06/23/2019 03:16:00 AM EDT [facility] Name Value Range Interpretation Description Data Sup porting Code Source(s) Document(s ) Troponin- 0.01 0.02-0.05 GRETEL Spicer I ng/mL [facility] ID Date Data Source [id number] 06/09/2019 05:56:00 PM EST [facility] Added by Discern Rule GLB_ADD_GFR_BMP Name Value Range Interpretation Code Description Data Jackie rce(s) Supporting Document(s ) eGFR-AA 74 >=60 [facility] mL/min/1.[address] The CKD-EPI equation for non- Nini [...] Mild decrease* G3a 45-59 Mild to moderate covqrzkjP2y 30-44 Moderate to s evere decreaseG4 15-29 Severe decreaseG5 14 or less Kidney fa ilure eGFR-MEG 61 mL/min/1.73m2 >=60 NO [facility] The CKD-EPI equation for non- [...] Mild decrease* G3a 45-59 Mild to moderate huaztaokX6u 30-44 Moderate to s evere decreaseG4 15-29 Severe decreaseG5 14 or less Kidney fa ilure ID Date Data Source [id number] 06/09/2019 05:56:00 PM [facility] Name Value Range Interpretation Description Data Sup porting Code Source(s) Document(s ) Magnesium 2.0 mg/dL 1.6-2.5 NO [facility] ID Date Data Source [id number] 06/09/2019 05:56:00 PM EST [facility] PATIENT ASKED TO COME BACK IN 30 MINS BR[place]GET 06/09/2019 15:47:54 EST Name Value Range Interpretation Description Data Sup porting Code Source(s) Document(s ) Glucose Lvl 218 65-99 [place] mg/dL [facility] BUN 19.0 7.0-21.0 [place] mg/dL [facility] Creatinine 1.24 0.70-1.2 [place] mg/dL 0 [facility] BUN/Creat 15.3 7.0-29.0 [place] Ratio ratio [facility] Sodium Lvl 129 136-146 [place] mmol/L [facility] Potassium Lvl 3.7 3.5-5.1 [place] mmol/L [facility] Chloride 99 98-109 [place] mmol/L [facility] CO2 22 17-33 NO [place] mmol/L [facility] AGAP 8 5-15 [place] [facility] Calcium Lvl 8.0 8.3-10.2 [place] mg/dL [facility] ID Date Data Source [id number] 06/09/2019 09:59:00 PM EST [facility] Name Value Range Interpretation Description Data Sup porting Code Source(s) Document(s ) U Osmolality 601 50-1200 [place] mOsm/kg [facility] Test performed on the [employer] Micro-Osm ometer using freezing point depression. ID Date Data Source [id number] 06/09/2019 04:24:00 PM EST [facility] Name Value Range Interpretation Code Description Data Jackie rce(s) Supporting Document(s ) U Sodium 124 mmol/L NA [facility] Normal ranges for Sodium in random urine are diet dependent. U Potassium 27.6 mmol/L NA [facility] Normal ranges for Potassium in random ur ine are diet dependent. U Chloride 133 mmol/L 15-400 NO [facility] Normal ranges for Chloride in random uri ne are diet dependent. ID Date Data Source [id number] 06/09/2019 07:14:00 AM [facility] Name Value Range Interpretation Description Data Sup porting Code Source(s) Document(s ) Magnesium 1.7 mg/dL 1.6-2.5 NO [facility] ID Date Data Source [id number] 06/09/2019 07:14:00 AM [facility] Added by Discern Rule GLB_ADD_GFR_BMP Name Value Range Interpretation Code Description Data Jackie rce(s) Supporting Document(s ) eGFR-AA 84 >=60 NO [facility] mL/min/[address] [place] [address] The CKD-EPI equation for non- Nini rican [...] Mild decrease* G3a 45-59 Mild to moderate vwiystzyH0a 30-44 Moderate to s evere decreaseG4 15-29 Severe decreaseG5 14 or less Kidney fa ilure eGFR-MEG 69 mL/min/1.73m2 >=60 NO [facility] The CKD-EPI equation for non- [...] Mild decrease* G3a 45-59 Mild to moderate rpwnkcesO6t 30-44 Moderate to s evere decreaseG4 15-29 Severe decreaseG5 14 or less Kidney fa ilure ID Date Data Source [id number] 06/09/2019 07:14:00 AM [facility] Name Value Range Interpretation Description Data Sup porting Code Source(s) Document(s ) Glucose Lvl 150 65-99 [place] mg/dL [facility] BUN 20.0 7.0-21.0 [place] mg/dL [facility] Creatinine 1.11 0.70-1.2 [place] mg/dL 0 [facility] BUN/Creat 18.0 7.0-29.0 [place] Ratio ratio [facility] Sodium Lvl 129 136-146 [place] mmol/L [facility] Potassium Lvl 2.9 3.5-5.1 [place] mmol/L [facility] Chloride 99 98-109 [place] mmol/L [facility] CO2 22 17-33 NO [place] mmol/L [facility] AGAP 8 5-15 [place] [facility] Calcium Lvl 8.3 8.3-10.2 [place] mg/dL [facility] ID Date Data Source [id number] 06/08/2019 08:05:00 AM EST [facility] Added by Discern Rule GLB_ADD_GFR_BMP Name Value Range Interpretation Code Description Data Jackie rce(s) Supporting Document(s ) eGFR-AA 86 >=60 [facility] mL/min/1.[address] [place] [address] The CKD-EPI equation for non- Nini rican [...] Mild decrease* G3a 45-59 Mild to moderate sysonsiwU6a 30-44 Moderate to s evere decreaseG4 15-29 Severe decreaseG5 14 or less Kidney fa ilure eGFR-MEG 71 mL/min/1.73m2 >=60 NO [facility] The CKD-EPI equation for non- [...] Mild decrease* G3a 45-59 Mild to moderate rgyukqvdW8u 30-44 Moderate to s evere decreaseG4 15-29 Severe decreaseG5 14 or less Kidney fa ilure ID Date Data Source [id number] 06/08/2019 08:05:00 AM EST [facility] Name Value Range Interpretation Description Data Sup porting Code Source(s) Document(s ) Glucose Lvl 158 65-99 [place] mg/dL [facility] BUN 21.0 7.0-21.0 NO [place] mg/dL [facility] Creatinine 1.09 0.70-1.2 [place] mg/dL 0 [facility] BUN/Creat 19.3 7.0-29.0 [place] Ratio ratio [facility] Sodium Lvl 131 136-146 [place] mmol/L [facility] Potassium Lvl 3.0 3.5-5.1 [place] mmol/L [facility] Chloride 100 98-109 [place] mmol/L [facility] CO2 23 17-33 [place] mmol/L [facility] AGAP 8 5-15 NO [facility] Calcium Lvl 8.5 8.3-10.2 [place] mg/dL [facility] ID Date Data Source [id number] 06/07/2019 08:50:00 AM EST [facility] Name Value Range Interpretation Description Data Sup porting Code Source(s) Document(s ) Neut Auto 67.3 % 40.0-70.0 NO [facility] Lymph Auto 21.9 % 22.0-44.0 [facility] [place] Auto 10.1 % 4.0-11.0 [facility] Eos Auto 0.3 % 0.0-8.0 [facility] Baso Auto 0.4 % 0.0-3.0 [facility] Neut 6.2 1.8-7.7 NO [place] Absolute x10(3)/[facility] Lymph 2.0 1.0-4.8 NO [place] Absolute x10(3)/[facility] [place] 0.9 0.2-1.2 NO [place] Absolute x10(3)/[facility] Eos Absolute 0.0 0.0-0.9 [place] x10(3)/[facility] Baso 0.0 0.0-0.3 NO [place] Absolute x10(3)/[facility] ID Date Data Source [id number] 06/07/2019 08:50:00 AM [facility] Name Value Range Interpretation Description Data Sup porting Code Source(s) Document(s ) WBC 9.1 4.5-11.0 NO [facility] x10(3)/[facility] RBC 4.07 4.50-5.90 LO [facility] x10(6)/[facility] Hgb 10.2 13.5-17.5 LO [facility] gm/dL [facility] Hct 31.2 % 41.0-53.0 [facility] MCV 77 fL 80-100 [facility] MCH 25.1 pg 26.0-34.0 [facility] MCHC 32.8 31.0-37.0 NO [place] gm/dL [facility] RDW 14.7 % 11.5-14.5 [facility] Platelet 283 150-350 NO [facility] x10(3)/[facility] MPV 7.9 fL 7.4-10.4 [facility] ID Date Data Source [id number] 06/07/2019 08:02:00 AM [facility] Added by Discern Rule GLB_ADD_GFR_RENAL Name Value Range Interpretation Code Description Data Jackie rce(s) Supporting Document(s ) eGFR-AA >90 >=60 [facility] mL/min/[address] The CKD-EPI equation for non- Nini [...] Mild decrease* G3a 45-59 Mild to moderate rubysgodY9w 30-44 Moderate to s evere decreaseG4 15-29 Severe decreaseG5 14 or less Kidney fa ilure eGFR-MEG 77 mL/min/1.73m2 >=60 NO Dannielle [facility] The CKD-EPI equation for non- Nini rican [...] Mild decrease* G3a 45-59 Mild to moderate cmxajtzjP3v 30-44 Moderate to s evere decreaseG4 15-29 Severe decreaseG5 14 or less Kidney fa reji ID Date Data Source [id number] 06/07/2019 08:02:00 AM EST Dannielle [facility] Name Value Range Interpretation Description Data Sup porting Code Source(s) Document(s ) Albumin Lvl 2.8 3.7-5.3 [place] gm/dL [facility] Calcium Lvl 8.2 8.3-10.2 [place] mg/dL [facility] CO2 23 17-33 [place] mmol/L [facility] Chloride 103 98-109 NO [place] mmol/L [facility] Creatinine 1.01 0.70-1.2 [place] mg/dL 0 [facility] Glucose Lvl 162 65-99 [place] mg/dL [facility] Phosphorus 2.3 2.5-5.0 [place] mg/dL [facility] BUN 19.0 7.0-21.0 [place] mg/dL [facility] Sodium Lvl 133 136-146 [place] mmol/L [facility] Potassium Lvl 3.1 3.5-5.1 [place] mmol/L [facility] BUN/Creat 18.8 7.0-29.0 [place] Ratio ratio [facility] ID Date Data Source [id number] 06/07/2019 08:02:00 AM EST [facility] Name Value Range Interpretation Description Data Sup porting Code Source(s) Document(s ) Magnesium 1.8 mg/dL 1.6-2.5 NO [facility] ID Date Data Source [id number] 06/06/2019 01:07:00 PM [facility] Patient Name: KARSTEN GIBBS EMRN: [id number] General DiagnosticACCESSION EXAM DATE/TIME PROCEDURE ORDERING PROVIDER [id number] 06/06/2019 13:01 EST XR Abdomen 2 Views Solitario [place], Dequan Auth (Verified)[place] son For Exam(XR Abdomen 2 Views) Abd [...] Supporting Document(s ) ID Date Data Source [id number] 06/06/2019 09:04:00 AM EST [facility] Name Value Range Interpretation Description Data Sup porting Code Source(s) Document(s ) Magnesium 2.0 mg/dL 1.6-2.5 NO [facility] ID Date Data Source [id number] 06/06/2019 09:04:00 AM EST [facility] Added by Discern Rule GLB_ADD_GFR_CMP Name Value Range Interpretation Code Description Data Jackie rce(s) Supporting Document(s ) eGFR-AA 69 >=60 [facility] mL/min/1.[address] The CKD-EPI equation for non- Nini [...] Mild decrease* G3a 45-59 Mild to moderate nmdywqofQ6s 30-44 Moderate to s evere decreaseG4 15-29 Severe decreaseG5 14 or less Kidney fa ilure eGFR-MEG 57 mL/min/1.73m2 >=60 [facility] The CKD-EPI equation for non- Nini [...] Mild decrease* G3a 45-59 Mild to moderate [id number] 30-44 Moderate to s evere decreaseG4 15-29 Severe decreaseG5 14 or less Kidney fa ilure ID Date Data Source [id number] 06/06/2019 09:04:00 AM EST [facility] Name Value Range Interpretation Description Data Sup porting Code Source(s) Document(s ) Glucose Lvl 149 65-99 [place] mg/dL [facility] BUN 28.0 7.0-21.0 [place] mg/dL [facility] Creatinine 1.32 0.70-1.2 [place] mg/dL 0 [facility] BUN/Creat 21.2 7.0-29.0 [place] Ratio ratio [facility] Sodium Lvl 134 136-146 [place] mmol/L [facility] Potassium Lvl 3.2 3.5-5.1 [place] mmol/L [facility] Chloride 104 98-109 [place] mmol/L [facility] CO2 21 17-33 [place] mmol/L [facility] AGAP 9 5-15 NO [facility] Calcium Lvl 8.1 8.3-10.2 [place] mg/dL [facility] Total Protein 7.7 6.0-8.3 [place] gm/dL [facility] Albumin Lvl 3.2 3.7-5.3 [place] gm/dL [facility] Glob 4.5 2.0-4.5 [place] gm/dL [facility] A/G Ratio 0.7 1.0-2.2 [place] ratio [facility] Bili Total 0.8 0.4-1.1 [place] mg/dL [facility] Alk Phos 91 IU/L 30-125 NO [facility] AST 13 IU/L 10-35 NO [facility] ALT 13 IU/L 8-40 NO [facility] ID Date Data Source [id number] 06/06/2019 08:43:00 AM EST [facility] Name Value Range Interpretation Description Data Sup porting Code Source(s) Document(s ) Neut Auto 74.4 % 40.0-70.0 [facility] Lymph Auto 16.3 % 22.0-44.0 [facility] Auto 8.5 % 4.0-11.0 NO [facility] Eos Auto 0.4 % 0.0-8.0 NO [facility] Baso Auto 0.4 % 0.0-3.0 NO [facility] Neut 7.6 1.8-7.7 [place] Absolute x10(3)/[facility] Lymph 1.7 1.0-4.8 NO [place] Absolute x10(3)/[facility] [place] 0.9 0.2-1.2 NO [place] Absolute x10(3)/[facility] Eos Absolute 0.0 0.0-0.9 [place] x10(3)/[facility] Baso 0.0 0.0-0.3 NO [place] Absolute x10(3)/[facility] ID Date Data Source [id number] 06/06/2019 08:43:00 AM EST [facility] Name Value Range Interpretation Description Data Sup porting Code Source(s) Document(s ) WBC 10.2 4.5-11.0 NO [place] x10(3)/[facility] RBC 3.90 4.50-5.90 [place] x10(6)/[facility] Hgb 9.6 gm/dL 13.5-17.5 [facility] Hct 30.6 % 41.0-53.0 [facility] MCV 78 fL 80-100 [facility] MCH 24.5 pg 26.0-34.0 [facility] MCHC 31.3 31.0-37.0 [place] gm/dL [facility] RDW 14.8 % 11.5-14.5 [facility] Platelet 296 150-350 NO [facility] x10(3)/[facility] MPV 7.8 fL 7.4-10.4 NO [facility] ID Date Data Source [id number] 06/05/2019 08:46:00 PM EST [facility] UA Microscopic added by rubio Baron to an Abnormal Macroscopic Result. Name Value Range Interpretation Description Data Sup porting Code Source(s) Document(s ) UA WBC None Seen AB [facility] UA RBC None Seen [facility] UA Bacteria None Seen NO [facility] UA Hyal Cast None Seen AB [facility] UA Fine Gran None Seen AB [facility] ID Date Data Source [id number] 06/05/2019 08:39:00 PM EST [facility] Name Value Range Interpretation Description Data Sup porting Code Source(s) Document(s ) UA Color Yellow NO [facility] UA Appear Clear NO [facility] UA pH 5.0-8.0 [facility] UA Spec Grav 1.021 1.005-1.030 [facility] UA Glucose Negative [facility] UA Ketones Negative [facility] UA Urobilinogen 0.2-1.0 [facility] UA Bili Negative [facility] UA Blood Negative AB [facility] UA Protein Negative [facility] UA Nitrite Negative NO [facility] UA Leuk Est Negative NO [facility] ID Date Data Source [id number] 06/05/2019 08:39:00 PM EST [facility] Name Value Range Interpretation Description Data Sup porting Code Source(s) Document(s ) U Amph Not Detected NO [facility] Scr [facility] Result created by [employer] rule.Substance of abuse cutoff levels:Amphetamine...................... .....1000 mA/minBarbiturate....................... .....300 mA/minBenzodiazepine.................... .....200 mA/minCannibinoid....................... ......50 mA/minCocaine........................... .....300 mA/minOpiates........................... .....300 mA/minPhencyclidine (PCP).....................25 mA/minMetha done..............................300 mA/minPropoxypene....................... .....300 mA/minPlease note: This is a urine screening test only.Positive results are presumptive and are not confirmed by a secondary method. Unconfirmed screening results are to be used only for medical purposes. U Johanny Scr Not Detected NO [facility] Result created by [employer] rule. U Benzodia Scr Not Detected NO [facility] Result created by [employer] rule. U Cannab Scr Not Detected NO [facility] Result created by [employer] rule. U Cocaine Scr Not Detected NO [facility] Result created by [employer] rule. U Opiate Scr Not Detected NA [facility] Result created by [employer] rule.This Opia te assay does NOT detect the semi-synthetic opioids Oxycontin, Oxycodone, Percodan, or Percocet. U Phencyclidine Not Detected NO [facility] Result created by Discern rule. U Propoxyphene Not Detected NA [facility] Result created by Discern rule. U Methadone Not Detected NO [facility] Result created by Discern rule. ID Date Data Source [id number] 06/06/2019 12:29:00 PM EST [facility] Name Value Range Interpretation Description Data Sup porting Code Source(s) Document(s ) Hemoglobin A1C 7.1 % <=5.6 HI [facility] 5.7-6.4% Pre-diabetes> 6.4% Diagno stic for diabetes(Summarized from [employer] 2018 Standards)This test was performed using the Revegy Hb 9210 Analyzer utilizing Bor[employer]. ID Date Data Source [id number] 06/05/2019 06:50:00 PM [facility] Added by Discern Rule GLB_ADD_GFR_BMP Name Value Range Interpretation Code Description Data Jackie rce(s) Supporting Document(s ) eGFR-AA 46 >=60 LO [facility] mL/min/[address] The CKD-EPI equation for non- Nini [...] Mild decrease* G3a 45-59 Mild to moderate [id number] 30-44 Moderate to s evere decreaseG4 15-29 Severe decreaseG5 14 or less Kidney fa ilure eGFR-MEG 38 mL/min/1.73m2 >=60 LO [facility] The CKD-EPI equation for non- [...] Mild decrease* G3a 45-59 Mild to moderate [id number] 30-44 Moderate to s evere decreaseG4 15-29 Severe decreaseG5 14 or less Kidney fa ilure ID Date Data Source [id number] 06/05/2019 06:50:00 PM [facility] Name Value Range Interpretation Description Data Sup porting Code Source(s) Document(s ) Glucose Lvl 161 65-99 [place] mg/dL [facility] BUN 36.0 7.0-21.0 [place] mg/dL [facility] Creatinine 1.87 0.70-1.2 [place] mg/dL 0 [facility] BUN/Creat 19.3 7.0-29.0 NO [place] Ratio ratio [facility] Sodium Lvl 137 136-146 NO [place] mmol/L [facility] Potassium Lvl 3.5 3.5-5.1 NO [place] mmol/L [facility] Chloride 108 98-109 NO [place] mmol/L [facility] CO2 22 17-33 NO [place] mmol/L [facility] AGAP 7 5-15 [place] [facility] Calcium Lvl 8.2 8.3-10.2 [place] mg/dL [facility] ID Date Data Source [id number] 06/05/2019 03:11:00 PM [facility] Patient Name: KARSTEN GIBBS EMRN: [id number] UltrasoundACCESSION EXAM DATE/TIME PROCEDURE ORDERING PROVIDER [id number] 14:22 EST [facility] [place], Dequan [...] Supporting Document(s ) ID Date Data Source [id number] 06/05/2019 08:20:00 AM [facility] Added by Discern Rule GLB_ADD_GFR_BMP Name Value Range Interpretation Code Description Data Jackie rce(s) Supporting Document(s ) eGFR-AA 40 >=60 [facility] mL/min/1.[address] The CKD-EPI equation for non- Nini [...] Mild decrease* G3a 45-59 Mild to moderate [id number] 30-44 Moderate to s evere decreaseG4 15-29 Severe decreaseG5 14 or less Kidney fa ilure eGFR-MEG 33 mL/min/1.73m2 >=60 LO [facility] The CKD-EPI equation for non- [...] Mild decrease* G3a 45-59 Mild to moderate [id number] 30-44 Moderate to s evere decreaseG4 15-29 Severe decreaseG5 14 or less Kidney fa reji ID Date Data Source [id number] 06/05/2019 08:20:00 AM EST [facility] Name Value Range Interpretation Description Data Sup porting Code Source(s) Document(s ) Glucose Lvl 148 65-99 [place] mg/dL [facility] BUN 41.0 7.0-21.0 [place] mg/dL [facility] Creatinine 2.12 0.70-1.2 [place] mg/dL 0 [facility] BUN/Creat 19.3 7.0-29.0 [place] Ratio ratio [facility] Sodium Lvl 137 136-146 NO [place] mmol/L [facility] Potassium Lvl 3.6 3.5-5.1 [place] mmol/L [facility] Chloride 109 98-109 [place] mmol/L [facility] CO2 22 17-33 [place] mmol/L [facility] AGAP 6 5-15 NO [facility] Calcium Lvl 8.0 8.3-10.2 [place] mg/dL [facility] ID Date Data Source [id number] 06/05/2019 08:08:00 AM EST [facility] Name Value Range Interpretation Description Data Sup porting Code Source(s) Document(s ) Neut Auto 74.8 % 40.0-70.0 [facility] Lymph Auto 14.2 % 22.0-44.0 [facility] Auto 10.5 % 4.0-11.0 [facility] Eos Auto 0.1 % 0.0-8.0 NO [facility] Baso Auto 0.4 % 0.0-3.0 NO [facility] Neut 8.1 1.8-7.7 [place] Absolute x10(3)/[facility] Lymph 1.5 1.0-4.8 NO [place] Absolute x10(3)/[facility] [place] 1.1 0.2-1.2 NO [place] Absolute x10(3)/[facility] Eos Absolute 0.0 0.0-0.9 [place] x10(3)/[facility] Baso 0.0 0.0-0.3 NO [place] Absolute x10(3)/[facility] ID Date Data Source [id number] 06/05/2019 08:08:00 AM EST [facility] Name Value Range Interpretation Description Data Sup porting Code Source(s) Document(s ) WBC 10.8 4.5-11.0 NO [place] x10(3)/[facility] RBC 3.40 4.50-5.90 [place] x10(6)/[facility] Hgb 8.5 gm/dL 13.5-17.5 [facility] Hct 26.3 % 41.0-53.0 [facility] MCV 77 fL 80-100 [facility] MCH 24.9 pg 26.0-34.0 [facility] MCHC 32.2 31.0-37.0 NO [place] gm/dL [facility] RDW 15.0 % 11.5-14.5 [facility] Platelet 262 150-350 NO [place] x10(3)/[facility] MPV 7.9 fL 7.4-10.4 [facility] ID Date Data Source [id number] 06/04/2019 10:04:00 PM [facility] Name Value Range Interpretation Code Description Data Jackie rce(s) Supporting Document(s ) D-Dimer 491 ng/ml 0-230 [facility] If the result is in the normal [...] may be present. ID Date Data Source [id number] 06/04/2019 10:03:00 PM [facility] Name Value Range Interpretation Description Data Sup porting Code Source(s) Document(s ) Lactic 1.0 0.9-2.0 NO [place] Lvl mmol/L [facility] ID Date Data Source [id number] 06/04/2019 09:57:00 PM [facility] Name Value Range Interpretation Code Description Data Jackie rce(s) Supporting Document(s ) INR 1.1 ratio 0.9-1.2 [facility] Indications INRProphylaxis of venous thromo-embolism: Non-hip surgery..... ..........................1.5 - 2.5 Hip surgery................................. ..2.0 - 3.0Deep Vein Thrombosis or Pulmonary Embolism........2.0 - 3.0Prevention of s ystemic embolism in valvular heart disease, tissue prosthetic heart valvesor acute PR.......................................2.0 - 3.5Prevention of embolism in mechanical heartvalves or recurrent systemic embolism.............3.0 - 4.5 PT 13.2 second(s) 9.5-12.5 [facility] ID Date Data Source [id number] 06/04/2019 09:28:00 PM [facility] Name Value Range Interpretation Code Description Data Jackie rce(s) Supporting Document(s ) BNP 202 pg/mL 1-99 [facility] ID Date Data Source [id number] 06/04/2019 09:24:00 PM [facility] Name Value Range Interpretation Description Data Sup porting Code Source(s) Document(s ) Troponin- 0.02 0.02-0.05 NO [facility] I ng/mL [facility] ID Date Data Source [id number] 06/04/2019 09:20:00 PM [facility] Name Value Range Interpretation Description Data Sup porting Code Source(s) Document(s ) Magnesium 2.5 mg/dL 1.6-2.5 NO [facility] ID Date Data Source [id number] 06/04/2019 09:20:00 PM [facility] Name Value Range Interpretation Code Description Data Jackie rce(s) Supporting Document(s ) Lipase Lvl 22 IU/L 10-59 NO [facility] ID Date Data Source [id number] 06/04/2019 09:20:00 PM EST [facility] Added by Discern Rule GLB_ADD_GFR_CMP Name Value Range Interpretation Code Description Data Jackie rce(s) Supporting Document(s ) eGFR-AA 42 >=60 [facility] mL/min/1.[address] The CKD-EPI equation for non- Nini [...] Mild decrease* G3a 45-59 Mild to moderate qaxucnlsR6n 30-44 Moderate to s evere decreaseG4 15-29 Severe decreaseG5 14 or less Kidney fa ilure eGFR-MEG 35 mL/min/1.73m2 >=60 [facility] The CKD-EPI equation for non- Nini [...] Mild decrease* G3a 45-59 Mild to moderate [id number] 30-44 Moderate to s evere decreaseG4 15-29 Severe decreaseG5 14 or less Kidney fa ilure ID Date Data Source [id number] 06/04/2019 09:20:00 PM EST [facility] Name Value Range Interpretation Description Data Sup porting Code Source(s) Document(s ) Glucose Lvl 171 65-99 [place] mg/dL [facility] BUN 39.0 7.0-21.0 [place] mg/dL [facility] Creatinine 2.02 0.70-1.2 [place] mg/dL 0 [facility] BUN/Creat 19.3 7.0-29.0 [place] Ratio ratio [facility] Sodium Lvl 136 136-146 [place] mmol/L [facility] Potassium Lvl 4.0 3.5-5.1 [place] mmol/L [facility] Chloride 103 98-109 [place] mmol/L [facility] CO2 22 17-33 [place] mmol/L [facility] AGAP 11 5-15 NO [facility] Calcium Lvl 8.7 8.3-10.2 [place] mg/dL [facility] Total Protein 8.6 6.0-8.3 [place] gm/dL [facility] Albumin Lvl 3.6 3.7-5.3 [place] gm/dL [facility] Glob 5.0 2.0-4.5 [place] gm/dL [facility] A/G Ratio 0.7 1.0-2.2 [place] ratio [facility] Bili Total 0.9 0.4-1.1 [place] mg/dL [facility] Alk Phos 101 IU/L 30-125 NO [facility] AST 18 IU/L 10-35 NO [facility] ALT 16 IU/L 8-40 NO [facility] ID Date Data Source [id number] 06/04/2019 09:20:00 PM EST [facility] Name Value Range Interpretation Description Data Sup porting Code Source(s) Document(s ) Amylase Lvl 40 IU/L 26-121 NO [facility] ID Date Data Source [id number] 06/04/2019 09:07:00 PM EST [facility] Name Value Range Interpretation Description Data Sup porting Code Source(s) Document(s ) Neut Auto 86.9 % 40.0-70.0 [facility] Lymph Auto 7.6 % 22.0-44.0 LO [facility] [place] Auto 5.1 % 4.0-11.0 NO [facility] Eos Auto 0.0 % 0.0-8.0 NO [facility] Baso Auto 0.4 % 0.0-3.0 NO [facility] Neut 12.5 1.8-7.7 [place] Absolute x10(3)/[facility] Lymph 1.1 1.0-4.8 NO [place] Absolute x10(3)/[facility] [place] 0.7 0.2-1.2 NO [place] Absolute x10(3)/[facility] Eos Absolute 0.0 0.0-0.9 [place] x10(3)/[facility] Baso 0.1 0.0-0.3 NO [place] Absolute x10(3)/[facility] ID Date Data Source [id number] 06/04/2019 09:07:00 PM EST [facility] Name Value Range Interpretation Description Data Sup porting Code Source(s) Document(s ) WBC 14.4 4.5-11.0 [place] x10(3)/[facility] RBC 4.18 4.50-5.90 [place] x10(6)/[facility] Hgb 10.3 13.5-17.5 [place] gm/dL [facility] Hct 32.6 % 41.0-53.0 [facility] MCV 78 fL 80-100 [facility] MCH 24.6 pg 26.0-34.0 [facility] MCHC 31.6 31.0-37.0 [facility] RDW 15.4 % 11.5-14.5 [facility] Platelet 303 150-350 NO [place] x10(3)/[facility] MPV 8.2 fL 7.4-10.4 [facility] ID Date Data Source [id number] 06/04/2019 09:01:00 PM EST [facility] Name Value Range Interpretation Description Data Sup porting Code Source(s) Document(s ) Influenza A Negative [facility] Test Methodology is Immunochromatographi c test for [...] culture is indicated. Influenza B Ag Negative [facility] Test Methodology is Immunochromatographi c test for [...] is indicated. Influenza A/B Ag Source NA [facility] [id number]_AB_AG_SPEC_POST ID Date Data Source [id number] 06/04/2019 08:14:00 PM EST [facility] Patient Name: KARSTEN GIBBS EMRN: [id number] General DiagnosticACCESSION EXAM DATE/TIME PROCEDURE ORDERING PROVIDER [id number] 06/04/2019 20:08 EST XR Chest Portable [place] [...] Supporting Document(s ) ID Date Data Source [id number] 06/04/2019 05:12:00 PM [facility] Teacher:JOSEPH LUCY Name Value Range Interpretation Description Data Sup porting Code Source(s) Document(s ) Glucose 144 mg/dL [facility] [Mass/volume[facility] in Capillary blood by Glucometer ID Date Data Source [id number] 02/11/2019 07:45:00 AM [facility] Teacher:ORTEGA, YULY Name Value Range Interpretation Description Data Sup porting Code Source(s) Document(s ) Glucose 205 mg/dL [facility]Mass/volume[facility] in Capillary blood by Glucometer ID Date Data Source [id number] 02/10/2019 11:26:00 AM [facility] Name Value Range Interpretation Description Data Sup porting Code Source(s) Document(s ) GLUCOSE RN Notified [facility] ID Date Data Source [id number] 02/10/2019 05:29:00 AM [facility] ADA RECOMMENDATIONS: NON-DIABETES: 4.0-6.0% CONTROLLED DIABETES: 6.0-8.0% UNCONTROLLED DIABETE S: UP TO 20%RECOMMENDED ADA RESULT FOR THERAPY: HEMOGLOBIN A1C RESULT LESS FRANK N 7%.NOTE: METHOD CHANGE EFFECTIVE 11/06/14. Name Value Range Interpretation Description Data Sup porting Code Source(s) Document(s ) Hemoglobin 7.0 % [facility] A1c/Hemoglobin. Hospital total in Blood ID Date Data Source [id number] 02/10/2019 05:29:00 AM [facility] Name Value Range Interpretation Description Data Sup porting Code Source(s) Document(s ) Calcium 8.3 mg/dL [facility] [Mass/volume Hospital ] in Serum or Plasma ID Date Data Source [id number] 02/10/2019 05:29:00 AM [facility] UNITS ARE IN ml/min/1.73m2.IF PATIENT IS -[place], MULTIPLY REPORTED RESULT BY 1.21. Name Value Range Interpretation Description Data Sup porting Code Source(s) Document(s ) Glomerular > 60 [facility] filtration mL/min Hospital rate/1.73 sq M.predicted [Volume Rate/Area] in Serum or Plasma by Creatinine-bas ed formula (MDRD) ID Date Data Source [id number] 02/10/2019 05:29:00 AM [facility] Name Value Range Interpretation Code Description Data Jackie rce(s) Supporting Document(s ) Urea 15.0 [facility] nitrogen/Cre Hospital atinine [Mass Ratio] in Serum or Plasma ID Date Data Source [id number] 02/10/2019 05:29:00 AM [facility] Name Value Range Interpretation Description Data Sup porting Code Source(s) Document(s ) Creatinine 1.2 mg/dL [facility] [Mass/volume] Hospital in Serum or Plasma ID Date Data Source [id number] 02/10/2019 05:29:00 AM [facility] THIS RESULT HAS BEEN VERIFIED. Name Value Range Interpretation Description Data Sup porting Code Source(s) Document(s ) Urea 18 mg/dL [facility] nitrogen Hospital [Mass/volume ] in Serum or Plasma ID Date Data Source [id number] 02/10/2019 05:29:00 AM [facility] Hospital Name Value Range Interpretation Code Description Data Jackie rce(s) Supporting Document(s ) Anion gap in 9 [facility] Serum or Hospital Plasma ID Date Data Source [id number] 02/10/2019 05:29:00 AM [facility] Hospital Name Value Range Interpretation Description Data Sup porting Code Source(s) Document(s ) Carbon 24 mmol/L [facility] dioxide, Hospital total [Moles/volu me] in Serum or Plasma ID Date Data Source [id number] 02/10/2019 05:29:00 AM [facility] Name Value Range Interpretation Description Data Sup porting Code Source(s) Document(s ) Chloride 105 [facility] [Moles/volum mmol/L Hospital e] in Serum or Plasma ID Date Data Source [id number] 02/10/2019 05:29:00 AM [facility] Name Value Range Interpretation Description Data Sup porting Code Source(s) Document(s ) Potassium 4.4 [facility] [Moles/volume mmol/L Hospital ] in Serum or Plasma ID Date Data Source [id number] 02/10/2019 05:29:00 AM [facility] Hospital Name Value Range Interpretation Description Data Sup porting Code Source(s) Document(s ) Sodium 134 mmol/L [facility] [Moles/volu Hospital me] in Serum or Plasma ID Date Data Source [id number] 02/10/2019 05:29:00 AM [facility] Name Value Range Interpretation Description Data Sup porting Code Source(s) Document(s ) Glucose 142 mg/dL [facility] [Mass/volume Hospital ] in Serum or Plasma ID Date Data Source [id number] 02/10/2019 05:29:00 AM EST [facility] Name Value Range Interpretation Code Description Data Supporting Source(s) Document(s ) NUCLEATED RBCS 0.0 % [facility] (AUTO Hospital DIFF%)DIS ID Date Data Source [id number] 02/10/2019 05:29:00 AM [facility] Name Value Range Interpretation Description Data Sup porting Code Source(s) Document(s ) Differential AUTOMATED [facility] cell count [facility] method - Blood ID Date Data Source [id number] 02/10/2019 05:29:00 AM [facility] Name Value Range Interpretation Description Data Sup porting Code Source(s) Document(s ) Immature 0.02 [facility] granulocytes 10*3/uL Hospital [#/volume] in Blood by Automated count ID Date Data Source [id number] 02/10/2019 05:29:00 AM [facility] Hospital Name Value Range Interpretation Description Data Sup porting Code Source(s) Document(s ) Basophils 0.03 [facility] [#/volume] in 10*3/uL Hospital Blood by Automated count ID Date Data Source [id number] 02/10/2019 05:29:00 AM [facility] Name Value Range Interpretation Description Data Sup porting Code Source(s) Document(s ) Eosinophils 0.35 [facility] [#/volume] in 10*3/uL Hospital Blood by Automated count ID Date Data Source [id number] 02/10/2019 05:29:00 AM EST [facility] Name Value Range Interpretation Description Data Sup porting Code Source(s) Document(s ) Monocytes 1.10 [facility] [#/volume] in 10*3/uL Hospital Blood by Automated count ID Date Data Source [id number] 02/10/2019 05:29:00 AM [facility] Name Value Range Interpretation Description Data Sup porting Code Source(s) Document(s ) Lymphocytes 3.02 [facility] [#/volume] in 10*3/uL Hospital Blood by Automated count ID Date Data Source [id number] 02/10/2019 05:29:00 AM EST [facility] Value Range Interpretation Description Data Sup porting Code Source(s) Document(s ) Neutrophils 3.80 [facility] [#/volume] in 10*3/uL [facility] Blood by Automated count ID Date Data Source [id number] 02/10/2019 05:29:00 AM [facility] Value Range Interpretation Description Data Sup porting Code Source(s) Document(s ) Nucleated 0.0 % [facility] erythrocytes/10 Hospital 0 leukocytes [Ratio] in Blood by Automated count ID Date Data Source [id number] 02/10/2019 05:29:00 AM [facility] Value Range Interpretation Description Data Sup porting Code Source(s) Document(s ) Immature 0.2 % [facility] granulocytes/10 Hospital 0 leukocytes in Blood by Automated count ID Date Data Source [id number] 02/10/2019 05:29:00 AM [facility] Value Range Interpretation Description Data Sup porting Code Source(s) Document(s ) Basophils/100 0.4 % [facility] leukocytes in [facility] Blood by Automated count ID Date Data Source [id number] 02/10/2019 05:29:00 AM [facility] Value Range Interpretation Description Data Sup porting Code Source(s) Document(s ) Eosinophils/100 4.2 % [facility] leukocytes in [facility] Blood by Automated count ID Date Data Source [id number] 02/10/2019 05:29:00 AM [facility] Value Range Interpretation Description Data Sup porting Code Source(s) Document(s ) Monocytes/100 13.2 % [facility] leukocytes in Hospital Blood by Automated count ID Date Data Source [id number] 02/10/2019 05:29:00 AM [facility] Value Range Interpretation Description Data Sup porting Code Source(s) Document(s ) Lymphocytes/10 36.3 % [facility] 0 leukocytes Hospital in Blood by Automated count ID Date Data Source [id number] 02/10/2019 05:29:00 AM [facility] Value Range Interpretation Description Data Sup porting Code Source(s) Document(s ) Neutrophils/10 45.7 % [facility] 0 leukocytes Hospital in Blood by Automated count ID Date Data Source [id number] 02/10/2019 05:29:00 AM [facility] Value Range Interpretation Description Data Sup porting Code Source(s) Document(s ) Platelet mean 11.7 fL [facility] volume Hospital [Entitic volume] in Blood by Automated count ID Date Data Source [id number] 02/10/2019 05:29:00 AM [facility] Value Range Interpretation Description Data Sup porting Code Source(s) Document(s ) Platelets 196 [facility] [#/volume] in 10*3/uL Hospital Blood by Automated count ID Date Data Source [id number] 02/10/2019 05:29:00 AM [facility] Value Range Interpretation Description Data Sup porting Code Source(s) Document(s ) Erythrocyte 17.0 % [facility] distribution Hospital width [Ratio] by Automated count ID Date Data Source [id number] 02/10/2019 05:29:00 AM [facility] Value Range Interpretation Description Data Sup porting Code Source(s) Document(s ) Erythrocyte mean 32.1 [facility] corpuscular g/dL Hospital hemoglobin concentration [Mass/volume] by Automated count ID Date Data Source [id number] 02/10/2019 05:29:00 AM [facility] Name Value Range Interpretation Description Data Sup porting Code Source(s) Document(s ) Erythrocyte 25.0 pg [facility] corpuscular hemoglobin [Entitic mass] by Automated count ID Date Data Source [id number] 02/10/2019 05:29:00 AM [facility] Value Range Interpretation Description Data Sup porting Code Source(s) Document(s ) Erythrocyte 77.9 fL [facility] corpuscular volume [Entitic volume] by Automated count ID Date Data Source [id number] 02/10/2019 05:29:00 AM [facility] Value Range Interpretation Description Data Sup porting Code Source(s) Document(s ) Hematocrit 26.5 % [facility] [Volume Hospital Fraction] of Blood by Automated count ID Date Data Source [id number] 02/10/2019 05:29:00 AM [facility] Value Range Interpretation Description Data Sup porting Code Source(s) Document(s ) Hemoglobin 8.5 g/dL [facility] [Mass/volume] Hospital in Blood ID Date Data Source [id number] 02/10/2019 05:29:00 AM [facility] Value Range Interpretation Description Data Sup porting Code Source(s) Document(s ) Erythrocytes 3.40 [facility] [#/volume] in 10*6/uL Hospital Blood by Automated count ID Date Data Source [id number] 02/10/2019 05:29:00 AM [facility] Value Range Interpretation Description Data Sup porting Code Source(s) Document(s ) Leukocytes 8.3 [facility] [#/volume] in 10*3/uL Hospital Blood by Automated count ID Date Data Source [id number] [facility] Interpretation Description Data Sup porting Code Source(s) Document(s ) Aspartate 11 U/L White aminotransferase [place] [Enzymatic Hospital activity/volume] in Serum or Plasma ID Date Data Source [id number] 02/06/2019 08:21:00 AM EDT [facility] Name Value Range Interpretation Description Data Sup porting Code Source(s) Document(s ) Alanine 12 U/L White aminotransferase [place] [Enzymatic Hospital activity/volume] in Serum or Plasma ID Date Data Source [id number] 02/06/2019 08:21:[facility] Name Value Range Interpretation Description Data Sup porting Code Source(s) Document(s ) Alkaline 104 U/L [facility] phosphatase Hospital [Enzymatic activity/volume ] in Serum or Plasma ID Date Data Source [id number] 02/06/2019 08:21:00 AM [facility] Name Value Range Interpretation Description Data Sup porting Code Source(s) Document(s ) Bilirubin.d 0.2 mg/dL [facility] [Mass/volum e] in Serum or Plasma ID Date Data Source [id number] 02/06/2019 08:21:00 AM [facility] Name Value Range Interpretation Description Data Sup porting Code Source(s) Document(s ) Bilirubin.t 0.5 mg/dL [facility] [Mass/volum e] in Serum or Plasma ID Date Data Source [id number] 02/06/2019 08:21:00 AM [facility] Name Value Range Interpretation Code Description Data Jackie rce(s) Supporting Document(s ) Albumin/Glob 1.1 [facility] ulin [Mass Hospital Ratio] in Serum or Plasma ID Date Data Source [id number] 02/06/2019 08:21:00 AM [facility] Name Value Range Interpretation Description Data Sup porting Code Source(s) Document(s ) Albumin 3.0 g/dL [facility] [Mass/volume Hospital ] in Serum or Plasma ID Date Data Source [id number] 02/06/2019 08:21:00 AM [facility] Name Value Range Interpretation Description Data Sup porting Code Source(s) Document(s ) Protein 5.7 g/dL [facility] [Mass/volume Hospital ] in Serum or Plasma ID Date Data Source [id number] 02/03/2019 07:31:00 AM [facility] Name Value Range Interpretation Description Data Sup porting Code Source(s) Document(s ) URINE OCCASIONAL [facility] EPITHELIAL [facility] CELLS ID Date Data Source [id number] 02/03/2019 07:31:00 AM [facility] Name Value Range Interpretation Description Data Sup porting Code Source(s) Document(s ) Erythrocytes 10-20 [facility] [#/area] in /[HPF] Hospital Urine sediment by Automated count ID Date Data Source [id number] 02/03/2019 07:31:00 AM [facility] Value Range Interpretation Description Data Sup porting Code Source(s) Document(s ) Leukocytes 3-5 [facility] [#/area] in /[HPF] Hospital Urine sediment by Automated count ID Date Data Source [id number] 02/03/2019 07:31:00 AM [facility] Value Range Interpretation Description Data Sup porting Code Source(s) Document(s ) Leukocyte NEGATIVE [facility] [Presence] in Urine by Test strip ID Date Data Source [id number] 02/03/2019 07:31:00 AM [facility] Name Value Range Interpretation Description Data Sup porting Code Source(s) Document(s ) URINE NEGATIVE [facility] NITRITES Hospital ID Date Data Source [id number] 02/03/2019 07:31:00 [facility] Name Value Range Interpretation Description Data Sup porting Code Source(s) Document(s ) Erythrocytes TRACE [facility] [#/volume] in Hospital Urine by Test strip ID Date Data Source [id number] 02/03/2019 07:31:00 [facility] Name Value Range Interpretation Code Description Data Jackie rce(s) Supporting Document(s ) Bilirubin. NEGATIVE [facility] total [facility] [Presence] in Urine by Test strip ID Date Data Source [id number] 02/03/2019 07:31:00 AM [facility] Name Value Range Interpretation Description Data Sup porting Code Source(s) Document(s ) Urobilinogen 0.2 [facility] [Units/volume] mg/dL Hospital in Urine by Test strip ID Date Data Source [id number] 02/03/2019 07:31:00 AM [facility] Name Value Range Interpretation Code Description Data Jackie rce(s) Supporting Document(s ) Ketones TRACE [facility] [Mass/volume Hospital ] in Urine by Test strip ID Date Data Source [id number] 02/03/2019 07:31:00 [facility] Name Value Range Interpretation Code Description Data Jackie rce(s) Supporting Document(s ) Glucose 1+ [facility] [Mass/volume Hospital ] in Urine by Test strip ID Date Data Source [id number] 02/03/2019 07:31:00 AM EDT [facility] Name Value Range Interpretation Code Description Data Jackie rce(s) Supporting Document(s ) Protein 4+ [facility] [Presence] Hospital in Urine by Test strip ID Date Data Source [id number] 02/03/2019 07:31:00 [facility] Name Value Range Interpretation Code Description Data Jackie rce(s) Supporting Document(s ) pH of Urine 6.5 [facility] by Test Hospital strip ID Date Data Source [id number] 02/03/2019 07:31:00 AM [facility] Name Value Range Interpretation Code Description Data Supporting Source(s) Document(s ) Specific 1.022 [facility] gravity of Hospital Urine by Test strip ID Date Data Source [id number] 02/03/2019 07:31:00 [facility] Name Value Range Interpretation Description Data Sup porting Code Source(s) Document(s ) Clarity in Urine CLEAR [facility] by Refractometry [facility] automated ID Date Data Source [id number] 02/03/2019 07:31:00 AM [facility] Name Value Range Interpretation Code Description Data Jackie rce(s) Supporting Document(s ) Color of YELLOW [facility] Urine Hospital ID Date Data Source [id number] 01/29/2019 07:20:00 PM [facility] TEST PERFORMED BY [employer] [facility] CHEMILUMINESCENCE METHOD. Name Value Range Interpretation Description Data Sup porting Code Source(s) Document(s ) Troponin < 0.01 [facility] I.cardiac ng/mL Hospital [Mass/volume ] in Serum or Plasma ID Date Data Source [id number] 01/29/2019 07:20:00 PM [facility] Name Value Range Interpretation Code Description Data Jackie rce(s) Supporting Document(s ) Lipase 25 U/L [facility] [Enzymatic Hospital activity/vo lume] in Serum or Plasma ID Date Data Source [id number] 01/20/2019 08:52:00 AM [facility] Child Care Associate Teacher:[email or web address] Whiting Name Value Range Interpretation Description Data Sup porting Code Source(s) Document(s ) Glucose 104 mg/dL [facility] [Mass/volume] Hospital in Capillary blood by Glucometer ID Date Data Source [id number] 01/15/2019 08:42:00 AM [facility] Value Range Interpretation Description Data Sup porting Code Source(s) Document(s ) Platelet mean 9.5 fL [facility] [Entitic volume] in Blood by Automated count ID Date Data Source [id number] 01/15/2019 08:42:00 AM [facility] Value Range Interpretation Description Data Sup porting Code Source(s) Document(s ) Platelets 386 [facility] [#/volume] in 10*3/uL Hospital Blood by Automated count ID Date Data Source [id number] 01/15/2019 08:42:00 AM [facility] Value Range Interpretation Description Data Sup porting Code Source(s) Document(s ) Erythrocyte 18.7 % [facility] width [Ratio] by Automated count ID Date Data Source [id number] 01/15/2019 08:42:00 AM [facility] Value Range Interpretation Description Data Sup porting Code Source(s) Document(s ) Erythrocyte mean 32.7 [facility] corpuscular g/dL Hospital hemoglobin concentration [Mass/volume] by Automated count ID Date Data Source [id number] 01/15/2019 08:42:00 AM [facility] Value Range Interpretation Description Data Sup porting Code Source(s) Document(s ) Erythrocyte 24.8 pg [facility] corpuscular hemoglobin [Entitic mass] by Automated count ID Date Data Source [id number] 01/15/2019 08:42:00 AM EDT [facility] Name Value Range Interpretation Description Data Sup porting Code Source(s) Document(s ) Erythrocyte 76.1 fL [facility] mean Hospital corpuscular volume [Entitic volume] by Automated count ID Date Data Source [id number] 01/15/2019 08:42:00 AM EDT [facility] Value Range Interpretation Description Data Sup porting Code Source(s) Document(s ) Hematocrit 24.5 % [facility] [Volume Hospital Fraction] of Blood by Automated count ID Date Data Source [id number] 01/15/2019 08:42:00 AM EDT [facility] Value Range Interpretation Description Data Sup porting Code Source(s) Document(s ) Hemoglobin 8.0 g/dL [facility] [Mass/volume] Hospital in Blood ID Date Data Source [id number] 01/15/2019 08:42:00 AM EDT [facility] Name Value Range Interpretation Description Data Sup porting Code Source(s) Document(s ) Erythrocytes 3.22 [facility] [#/volume] in 10*6/uL Hospital Blood by Automated count ID Date Data Source [id number] 01/15/2019 08:42:00 AM EDT [facility] Value Range Interpretation Description Data Sup porting Code Source(s) Document(s ) Leukocytes 6.6 [facility] [#/volume] in 10*3/uL Hospital Blood by Automated count ID Date Data Source [id number] 01/15/2019 07:42:00 AM EDT [facility] Value Range Interpretation Description Data Sup porting Code Source(s) Document(s ) Calcium 8.5 mg/dL [facility] [Mass/volume Hospital ] in Serum or Plasma ID Date Data Source [id number] 01/15/2019 07:42:00 AM EDT [facility] Name Value Range Interpretation Code Description Data Jackie rce(s) Supporting Document(s ) Urea 13.6 [facility] nitrogen/Cre Hospital atinine [Mass Ratio] in Serum or Plasma ID Date Data Source [id number] 01/15/2019 07:42:00 AM EDT [facility] Name Value Range Interpretation Description Data Sup porting Code Source(s) Document(s ) Creatinine 1.1 mg/dL [facility] [Mass/volume] Hospital in Serum or Plasma ID Date Data Source [id number] [facility] Description Data Sup porting Code Source(s) Document(s ) Urea 15 mg/dL [facility] [Mass/volume ] in Serum or Plasma ID Date Data Source [id number] 01/15/2019 07:42:00 AM EDT [facility] Value Range Interpretation Code Description Data Jackie rce(s) Supporting Document(s ) Anion gap in 10 [facility] Serum or [facility] Plasma ID Date Data Source [id number] 01/15/2019 07:42:00 AM EDT [facility] Value Range Interpretation Description Data Sup porting Code Source(s) Document(s ) Carbon 28 mmol/L [facility] dioxide, Hospital total [Moles/volu me] in Serum or Plasma ID Date Data Source [id number] 01/15/2019 [facility]:42[facility] Name Value Range Interpretation Description Data Sup porting Code Source(s) Document(s ) Chloride 102 [facility] [Moles/volum mmol/L Hospital e] in Serum or Plasma ID Date Data Source [id number] 01/15/2019 07:42:00 AM EDT [facility] Value Range Interpretation Description Data Sup porting Code Source(s) Document(s ) Potassium 3.9 [facility] [Moles/volume mmol/L Hospital ] in Serum or Plasma ID Date Data Source [id number] 01/15/2019 07:42:00 AM [facility] Name Value Range Interpretation Description Data Sup porting Code Source(s) Document(s ) Sodium 136 mmol/L [facility] [Moles/volu Hospital va] in Serum or Plasma ID Date Data Source [id number] 01/15/2019 07:42:00 AM [facility] Name Value Range Interpretation Description Data Sup porting Code Source(s) Document(s ) Glucose 124 mg/dL [facility] [Mass/volume Hospital ] in Serum or Plasma ID Date Data Source [id number] 01/15/2019 02:08:00 AM [facility] NOTE: NEW REFERENCE RANGE, EFFECTIVE . Name Value Range Interpretation Description Data Sup porting Code Source(s) Document(s ) Vancomycin 12.8 [facility] [Mass/volume] ug/mL Hospital in Serum or Plasma --trough ID Date Data Source [id number] 01/15/2019 02:08:00 AM [facility] NOTE: NEW REFERENCE RANGE, EFFECTIVE . Name Value Range Interpretation Description Data Sup porting Code Source(s) Document(s ) Vancomycin 12.8 [facility] [Mass/volume] ug/mL Hospital in Serum or Plasma --trough ID Date Data Source [id number] 01/11/2019 10:40:00 AM [facility] Name Value Range Interpretation Description Data Sup porting Code Source(s) Document(s ) [facility].2 [facility]L [facility] VOLUME ID Date Data Source [id number] 01/11/2019 10:40:00 AM EDT [facility] Name Value Range Interpretation Description Data Sup porting Code Source(s) Document(s ) MEAN 80.2 fL [facility] VOLUME ID Date Data Source [id number] 01/10/2019 07:19:00 AM EDT [facility] Name Value Range Interpretation Description Data Sup porting Code Source(s) Document(s ) Aspartate 13 U/L White aminotransferase [place] [Enzymatic Hospital activity/volume] in Serum or Plasma ID Date Data Source [id number] 01/10/2019 [facility]19[facility] Name Value Range Interpretation Description Data Sup porting Code Source(s) Document(s ) Alanine 16 U/L White aminotransferase [place] [Enzymatic Hospital activity/volume] in Serum or Plasma ID Date Data Source [id number] 01/10[facility] Interpretation Description Data Sup porting Code Source(s) Document(s ) Alkaline 142 U/L [facility] phosphatase Hospital [Enzymatic activity/volume ] in Serum or Plasma ID Date Data Source [id number] 01/10/2019 07:19:00 AM [facility] Value Range Interpretation Description Data Sup porting Code Source(s) Document(s ) Bilirubin.t 0.3 mg/dL [facility] [Mass/volum e] in Serum or Plasma ID Date Data Source [id number] 01/10/2019 07:19:00 AM [facility] Name Value Range Interpretation Code Description Data Jackie rce(s) Supporting Document(s ) Albumin/Glob 0.9 [facility] ulin [Mass Hospital Ratio] in Serum or Plasma ID Date Data Source [id number] 01/10/2019 [facility] Interpretation Description Data Sup porting Code Source(s) Document(s ) Albumin 3.3 g/dL [facility] [Mass/volume Hospital ] in Serum or Plasma ID Date Data Source [id number] 01/10/2019 07:19:00 AM EDT [facility] Name Value Range Interpretation Description Data Sup porting Code Source(s) Document(s ) Protein 6.9 g/dL [facility] [Mass/volume Hospital ] in Serum or Plasma ID Date Data Source [id number] 01/10/2019 07:19:00 AM EDT [facility] Name Value Range Interpretation Code Description Data Supporting Source(s) Document(s ) NUCLEATED RBCS 0.0 % [facility] (AUTO Hospital DIFF%)DIS ID Date Data Source [id number] 01/10/2019 07:19:00 AM EDT [facility] Value Range Interpretation Description Data Sup porting Code Source(s) Document(s ) Differential AUTOMATED [facility] cell count Hospital method - Blood ID Date Data Source [id number] 01/10/2019 [facility] Interpretation Description Data Sup porting Code Source(s) Document(s ) Immature 0.02 [facility] granulocytes 10*3/uL Hospital [#/volume] in Blood by Automated count ID Date Data Source [id number] 01/10/2019 07:19:00 AM EDT [facility] Name Value Range Interpretation Description Data Sup porting Code Source(s) Document(s ) Basophils 0.03 [facility] [#/volume] in 10*3/uL Hospital Blood by Automated count ID Date Data Source [id number] 01/10/2019 07:19:00 AM EDT [facility] Name Value Range Interpretation Description Data Sup porting Code Source(s) Document(s ) Eosinophils 0.20 [facility] [#/volume] in 10*3/uL Hospital Blood by Automated count ID Date Data Source [id number] 01/10/2019 07:19:00 AM EDT [facility] Value Range Interpretation Description Data Sup porting Code Source(s) Document(s ) Monocytes 1.19 [facility] [#/volume] in 10*3/uL Hospital Blood by Automated count ID Date Data Source [id number] 01/10/2019 07:19:00 AM EDT [facility] Value Range Interpretation Description Data Sup porting Code Source(s) Document(s ) Lymphocytes 2.21 [facility] [#/volume] in 10*3/uL Hospital Blood by Automated count ID Date Data Source [id number] 01/10/2019 07:19:00 AM EDT [facility] Value Range Interpretation Description Data Sup porting Code Source(s) Document(s ) Neutrophils 5.70 [facility] [#/volume] in 10*3/uL [facility] Blood by Automated count ID Date Data Source [id number] 01/10/2019 07:19:00 AM EDT [facility] Value Range Interpretation Description Data Sup porting Code Source(s) Document(s ) Nucleated 0.0 % [facility] erythrocytes/10 [facility] 0 leukocytes [Ratio] in Blood by Automated count ID Date Data Source [id number] 01/10/2019 07:19:00 AM EDT [facility] Value Range Interpretation Description Data Sup porting Code Source(s) Document(s ) Immature 0.2 % [facility] granulocytes/10 Hospital 0 leukocytes in Blood by Automated count ID Date Data Source [id number] 01/10/2019 07:19:00 AM EDT [facility] Value Range Interpretation Description Data Sup porting Code Source(s) Document(s ) Basophils/100 0.3 % [facility] leukocytes in Hospital Blood by Automated count ID Date Data Source [id number] 01/10/2019 07:19:00 AM EDT [facility] Name Value Range Interpretation Description Data Sup porting Code Source(s) Document(s ) Eosinophils/100 2.1 % [facility] leukocytes in Hospital Blood by Automated count ID Date Data Source [id number] 01/10/2019 07:19:00 AM EDT [facility] Name Value Range Interpretation Description Data Sup porting Code Source(s) Document(s ) Monocytes/100 12.7 % [facility] leukocytes in Hospital Blood by Automated count ID Date Data Source [id number] 01/10/2019 07:19:00 AM EDT [facility] Value Range Interpretation Description Data Sup porting Code Source(s) Document(s ) Lymphocytes/10 23.6 % [facility] 0 leukocytes Hospital in Blood by Automated count ID Date Data Source [id number] 01/10/2019 07:19:00 AM EDT [facility] Value Range Interpretation Description Data Sup porting Code Source(s) Document(s ) Neutrophils/10 61.1 % [facility] 0 leukocytes Hospital in Blood by Automated count ID Date Data Source [id number] 01/08/2019 12:12:00 PM EDT [facility] Name Value Range Interpretation Description Data Sup porting Code Source(s) Document(s ) GLUCOSE RN Notified [facility] ID Date Data Source [id number] 01/08/2019 11:19:00 AM EDT [facility] Value Range Interpretation Description Data Sup porting Code Source(s) Document(s ) Bacteria No growth [facility] identified in Hospital Blood by Culture ID Date Data Source [id number] 01/08/2019 11:19:00 AM EDT [facility] Name Value Range Interpretation Description Data Sup porting Code Source(s) Document(s ) Bacteria No growth [facility] identified in Hospital Blood by Culture ID Date Data Source [id number] 12/[facility] Range Interpretation Description Data Sup porting Code Source(s) Document(s ) GLUCOSE To Be [facility] COMMENT2 Repeated Hospital ID Date Data Source [id number] 12/31/2018 07[facility]57[facility] Name Value Range Interpretation Description Data Sup porting Code Source(s) Document(s ) GLUCOSE To Be [facility] COMMENT2 Repeated Hospital ID Date Data Source [id number] 12/30/2018 05:59:00 AM [facility] Value Range Interpretation Description Data Sup porting Code Source(s) Document(s ) Gamma glutamyl 80 U/L [facility] [Enzymatic activity/volume ] in Serum or Plasma ID Date Data Source [id number] 12/30/2018 05:59:00 AM [facility] Value Range Interpretation Description Data Sup porting Code Source(s) Document(s ) Gamma glutamyl 80 U/L [facility] [Enzymatic activity/volume ] in Serum or Plasma ID Date Data Source [id number] 12/29/2018 02:45:00 AM [facility] Name Value Range Interpretation Description Data Sup porting Code Source(s) Document(s ) Lactate 1.1 [facility] [Moles/volum mmol/L Hospital e] in Serum or Plasma ID Date Data Source [id number] 12/29/2018 02:45:00 AM [facility] Name Value Range Interpretation Description Data Sup porting Code Source(s) Document(s ) Lactate 1.1 [facility] [Moles/volum mmol/L Hospital e] in Serum or Plasma ID Date Data Source [id number] 12/28/2018 10:45:00 PM EDT [facility] Name Value Range Interpretation Description Data Sup porting Code Source(s) Document(s ) Natriuretic 63.2 [facility] peptide B pg/mL Hospital [Mass/volume] in Serum or Plasma ID Date Data Source [id number] 12/28/2018 10:45:00 PM EDT [facility] THERAPEUTIC RANGE FOR STANDARD ORALANTIC OAGULANT THERAPY: 2.0-3.0THERAPEUTIC RANGE FOR HIGH DOSE ORALANTICOAGULANT THERAPY (MECHANICAL HEARTVALVE REPLACEMENT): 2.5-3.5 Name Value Range Interpretation Description Data Sup porting Code Source(s) Document(s ) INR in Platelet 1.2 [facility] poor plasma by [facility] Coagulation assay ID Date Data Source [id number] 12/28/2018 10:45:00 PM [facility] Name Value Range Interpretation Description Data Sup porting Code Source(s) Document(s ) PT panel - 13.0 s [facility] Platelet poor [facility] plasma by Coagulation assay ID Date Data Source [id number] 12/28/2018 10:45:00 PM [facility] Value Range Interpretation Description Data Sup porting Code Source(s) Document(s ) Natriuretic 63.2 [facility] peptide B pg/mL Hospital [Mass/volume] in Serum or Plasma ID Date Data Source [id number] 12/28/2018 10:45:00 PM [facility] THERAPEUTIC RANGE FOR STANDARD ORALANTIC OAGULANT THERAPY: 2.0-3.0THERAPEUTIC RANGE FOR HIGH DOSE ORALANTICOAGULANT THERAPY (MECHANICAL HEARTVALVE REPLACEMENT): 2.5-3.5 Name Value Range Interpretation Description Data Sup porting Code Source(s) Document(s ) INR in Platelet 1.2 [facility] poor plasma by Hospital Coagulation assay ID Date Data Source [id number] 12/28/2018 10:45:00 PM [facility] Name Value Range Interpretation Description Data Sup porting Code Source(s) Document(s ) PT panel - 13.0 s [facility] Platelet poor [facility] plasma by Coagulation assay ID Date Data Source [id number] 12/28/2018 12:01:00 AM [facility] TEST PERFORMED BY [employer] [facility] CHEMILUMINESCENCE METHOD. Name Value Range Interpretation Description Data Sup porting Code Source(s) Document(s ) Troponin 0.01 [facility] I.cardiac ng/mL Hospital [Mass/volume ] in Serum or Plasma ID Date Data Source [id number] 12/27/2018 08:35:00 AM [facility] Child Care Associate Teacher:DAMARI NIGRAM Name Value Range Interpretation Description Data Sup porting Code Source(s) Document(s ) Glucose 238 mg/dL [facility] [Mass/volume] [facility] in Capillary blood by Glucometer ID Date Data Source [id number] 12/26/2018 08:30:00 AM [facility] THERE ARE NO REFERENCE RANGES FOR RANDOM VANCOMYCIN LEVELS. Name Value Range Interpretation Description Data Sup porting Code Source(s) Document(s ) Vancomycin 11.9 [facility] [Mass/volume] ug/mL Hospital in Serum or Plasma --trough ID Date Data Source [id number] 12/26/2018 08:30:00 AM [facility] Name Value Range Interpretation Description Data Sup porting Code Source(s) Document(s ) Calcium 8.7 mg/dL [facility] [Mass/volume Hospital ] in Serum or Plasma ID Date Data Source [id number] 12/26/2018 08:30:00 AM [facility] Name Value Range Interpretation Code Description Data Jackie rce(s) Supporting Document(s ) Urea 16.0 [facility] nitrogen/Cre Hospital atinine [Mass Ratio] in Serum or Plasma ID Date Data Source [id number] 12/26/2018 08:30:00 AM EDT [facility] Name Value Range Interpretation Description Data Sup porting Code Source(s) Document(s ) Creatinine 1.0 mg/dL [facility] [Mass/volume] Hospital in Serum or Plasma ID Date Data Source [id number] 12/26/2018 08:30:00 AM EDT [facility] Value Range Interpretation Description Data Sup porting Code Source(s) Document(s ) Urea 16 mg/dL [facility] nitrogen Hospital [Mass/volume ] in Serum or Plasma ID Date Data Source [id number] 12/26/2018 08:30:00 AM EDT [facility] Value Range Interpretation Code Description Data Jackie rce(s) Supporting Document(s ) Anion gap in 10 [facility] Serum or [facility] Plasma ID Date Data Source [id number] 12/26/2018 08:30:00 AM EDT [facility] Value Range Interpretation Description Data Sup porting Code Source(s) Document(s ) Carbon 27 mmol/L [facility] dioxide, Hospital total [Moles/volu me] in Serum or Plasma ID Date Data Source [id number] 12/26/2018 08:30:00 AM EDT [facility] Value Range Interpretation Description Data Sup porting Code Source(s) Document(s ) Chloride 102 [facility] [Moles/volum mmol/L Hospital e] in Serum or Plasma ID Date Data Source [id number] 12/26/2018 08:30:00 AM EDT [facility] Value Range Interpretation Description Data Sup porting Code Source(s) Document(s ) Potassium 4.1 [facility] [Moles/volume mmol/L Hospital ] in Serum or Plasma ID Date Data Source [id number] [facility] Description Data Sup porting Code Source(s) Document(s ) Sodium 135 mmol/L [facility] [Moles/volu Hospital va] in Serum or Plasma ID Date Data Source [id number] 12/26/2018 08:30:00 AM EDT [facility] Value Range Interpretation Description Data Sup porting Code Source(s) Document(s ) Glucose 156 mg/dL [facility] [Mass/volume Hospital ] in Serum or Plasma ID Date Data Source [id number] 12/[facility] Interpret[facility] Description Data Sup porting Code Source(s) Document(s ) Platelet mean 9.4 fL [facility] [Entitic volume] in Blood by Automated count ID Date Data Source [id number] 12/26/2018 08:30:00 AM [facility] Value Range Interpretation Description Data Sup porting Code Source(s) Document(s ) Platelets 461 [facility] [#/volume] in 10*3/uL [facility] Blood by Automated count ID Date Data Source [id number] 12/26[facility]2018 [facility] Interpretation Description Data Sup porting Code Source(s) Document(s ) Erythrocyte 19.8 % [facility] distribution Hospital width [Ratio] by Automated count ID Date Data Source [id number] 12/26/2018 [facility] Interpretation Description Data Sup porting Code Source(s) Document(s ) Erythrocyte mean 31.2 [facility] corpuscular g/dL Hospital hemoglobin concentration [Mass/volume] by Automated count ID Date Data Source [id number] 12/26/2018 08:30:00 AM [facility] Name Value Range Interpretation Description Data Sup porting Code Source(s) Document(s ) Erythrocyte 24.1 pg [facility] corpuscular hemoglobin [Entitic mass] by Automated count ID Date Data Source [id number] 12/26/2018 08:30:00 AM [facility] Name Value Range Interpretation Description Data Sup porting Code Source(s) Document(s ) Erythrocyte 77.[address] [facility] Hospital corpuscular volume [Entitic volume] by Automated count ID Date Data Source [id number] 12/26/2018 08:30:00 AM [facility] Value Range Interpretation Description Data Sup porting Code Source(s) Document(s ) Hematocrit 23.1 % [facility] [Volume Hospital Fraction] of Blood by Automated count ID Date Data Source [id number] 12/26/2018 08:30:00 AM [facility] NOTIFICATION AND READ BACK OF CRITICAL R ESULTS TO KENDELL HAMMER RN 4E AT 0942 ON 12/26/18 BY Pat Rapp. Name Value Range Interpretation Description Data Sup porting Code Source(s) Document(s ) Hemoglobin 7.2 g/dL [facility] [Mass/volume] Hospital in Blood ID Date Data Source [id number] 12/26/2018 08:30:00 AM [facility] Name Value Range Interpretation Description Data Sup porting Code Source(s) Document(s ) Erythrocytes 2.99 [facility] [#/volume] in 10*6/uL Hospital Blood by Automated count ID Date Data Source [id number] 12/26/2018 08:30:00 AM EDT [facility] Name Value Range Interpretation Description Data Sup porting Code Source(s) Document(s ) Leukocytes 8.9 [facility] [#/volume] in 10*3/uL Hospital Blood by Automated count ID Date Data Source [id number] 12/26/2018 08:30:00 AM [facility] THERE ARE NO REFERENCE RANGES FOR RANDOM VANCOMYCIN LEVELS. Name Value Range Interpretation Description Data Sup porting Code Source(s) Document(s ) Vancomycin 11.9 [facility] [Mass/volume] ug/mL Hospital in Serum or Plasma --trough ID Date Data Source [id number] 12/22/2018 10:54:00 PM [facility] NOTIFICATION AND READ BACK OF CRITICAL R ESULTS TO CARLA BOWERS RN-4E AT 2350 ON 12/22/18 BY Radha Page.NOTE: NEW RE FERENCE RANGE, EFFECTIVE 07/26/16.REPORTED CRITICAL VALUES SHOULD BE INTERPRETED WI THIN CLINICAL CONTEXT. Name Value Range Interpretation Description Data Sup porting Code Source(s) Document(s ) Vancomycin 23.7 [facility] [Mass/volume] ug/mL Hospital in Serum or Plasma --trough ID Date Data Source [id number] 12/22/2018 06:11:00 AM [facility] Name Value Range Interpretation Code Description Data Jackie rce(s) Supporting Document(s ) URINE 0-5 [facility] CASTS ID Date Data Source [id number] 12/22/2018 06:11:00 AM [facility] Name Value Range Interpretation Description Data Sup porting Code Source(s) Document(s ) Erythrocytes 5-10 [facility] [#/area] in /[HPF] Hospital Urine sediment by Automated count ID Date Data Source [id number] 12/22/2018 06:11:00 AM [facility] Name Value Range Interpretation Description Data Sup porting Code Source(s) Document(s ) Leukocytes 0-3 [facility] [#/area] in /[HPF] Hospital Urine sediment by Automated count ID Date Data Source [id number] 12/22/2018 06:11:00 AM EDT [facility] Name Value Range Interpretation Description Data Sup porting Code Source(s) Document(s ) Leukocyte NEGATIVE [facility] esterase Hospital [Presence] in Urine by Test strip ID Date Data Source [id number] 12/22/2018 06:11:00 AM EDT [facility] Name Value Range Interpretation Description Data Sup porting Code Source(s) Document(s ) URINE NEGATIVE [facility] NITRITES Hospital ID Date Data Source [id number] 12/22/2018 06:11:00 AM EDT [facility] Value Range Interpretation Description Data Sup porting Code Source(s) Document(s ) Erythrocytes TRACE [facility] [#/volume] in Hospital Urine by Test strip ID Date Data Source [id number] 12/22/2018 [facility]11:[facility] Value Range Interpretation Code Description Data Jackie rce(s) Supporting Document(s ) Bilirubin. NEGATIVE [facility] total Hospital [Presence] in Urine by Test strip ID Date Data Source [id number] 12/22/2018 06:11:[facility] Name Value Range Interpretation Description Data Sup porting Code Source(s) Document(s ) Urobilinogen 0.2 [facility] [Units/volume] mg/dL Hospital in Urine by Test strip ID Date Data Source [id number] 12/22/2018 06:11:[facility] Name Value Range Interpretation Description Data Sup porting Code Source(s) Document(s ) Ketones NEGATIVE [facility] [Mass/volume Hospital ] in Urine by Test strip ID Date Data Source [id number] 12/22/2018 06:11:00 AM EDT [facility] Name Value Range Interpretation Code Description Data Jackie rce(s) Supporting Document(s ) Glucose TRACE [facility] [Mass/volume Hospital ] in Urine by Test strip ID Date Data Source [id number] 12/22/2018 06:11:00 AM EDT [facility] Name Value Range Interpretation Code Description Data Jackie rce(s) Supporting Document(s ) Protein 2+ [facility] [Presence] Hospital in Urine by Test strip ID Date Data Source [id number] 12/22/2018 06:11:00 AM EDT [facility] Name Value Range Interpretation Code Description Data Jackie rce(s) Supporting Document(s ) pH of Urine 6.5 [facility] by Test Hospital strip ID Date Data Source [id number] 12/22/2018 06:11:00 AM EDT [facility] Name Value Range Interpretation Code Description Data Supporting Source(s) Document(s ) Specific 1.012 [facility] gravity of Hospital Urine by Test strip ID Date Data Source [id number] 12/22/2018 06:11:00 AM EDT [facility] Name Value Range Interpretation Description Data Sup porting Code Source(s) Document(s ) Clarity in Urine CLEAR [facility] by Refractometry Hospital automated ID Date Data Source [id number] 12/22/2018 06:11:00 AM EDT [facility] Name Value Range Interpretation Code Description Data Jackie rce(s) Supporting Document(s ) Color of YELLOW [facility] Urine Hospital ID Date Data Source [id number] 12/22/2018 06:11:00 AM EDT [facility] Name Value Range Interpretation Code Description Data Jackie rce(s) Supporting Document(s ) URINE 0-5 [facility] HYALINE Hospital CASTS ID Date Data Source [id number] 12/22/2018 06:11:00 AM EDT [facility] Name Value Range Interpretation Description Data Sup porting Code Source(s) Document(s ) Erythrocytes 5-10 [facility] [#/area] in /[HPF] Hospital Urine sediment by Automated count ID Date Data Source [id number] 12/22/2018 06:11:00 AM EDT [facility] Name Value Range Interpretation Description Data Sup porting Code Source(s) Document(s ) Leukocytes 0-3 [facility] [#/area] in /[HPF] Hospital Urine sediment by Automated count ID Date Data Source [id number] 12/22/2018 06:11:00 AM EDT [facility] Name Value Range Interpretation Description Data Sup porting Code Source(s) Document(s ) Leukocyte NEGATIVE [facility] esterase Hospital [Presence] in Urine by Test strip ID Date Data Source [id number] 12/22/2018 06:11:00 AM EDT [facility] Name Value Range Interpretation Description Data Sup porting Code Source(s) Document(s ) URINE NEGATIVE [facility] NITRITES Hospital ID Date Data Source [id number] 12/22/2018 06:11:00 AM EDT [facility] Name Value Range Interpretation Description Data Sup porting Code Source(s) Document(s ) Erythrocytes TRACE [facility] [#/volume] in Hospital Urine by Test strip ID Date Data Source [id number] 12/22/2018 06:11:00 AM EDT [facility] Name Value Range Interpretation Code Description Data Jackie rce(s) Supporting Document(s ) Bilirubin. NEGATIVE [facility] total Hospital [Presence] in Urine by Test strip ID Date Data Source [id number] 12/22/2018 06:11:00 AM EDT [facility] Name Value Range Interpretation Description Data Sup porting Code Source(s) Document(s ) Urobilinogen 0.2 [facility] [Units/volume] mg/dL Hospital in Urine by Test strip ID Date Data Source [id number] 12/22/2018 06:11:00 AM EDT [facility] Name Value Range Interpretation Description Data Sup porting Code Source(s) Document(s ) Ketones NEGATIVE [facility] [Mass/volume Hospital ] in Urine by Test strip ID Date Data Source [id number] 12/22/2018 06:11:00 AM EDT [facility] Name Value Range Interpretation Code Description Data Jackie rce(s) Supporting Document(s ) Glucose TRACE [facility] [Mass/volume Hospital ] in Urine by Test strip ID Date Data Source [id number] 12/22/2018 06:11:00 AM EDT [facility] Name Value Range Interpretation Code Description Data Jackie rce(s) Supporting Document(s ) Protein 2+ [facility] [Presence] Hospital in Urine by Test strip ID Date Data Source [id number] 12/22/2018 06:11:00 AM EDT [facility] Value Range Interpretation Code Description Data Jackie rce(s) Supporting Document(s ) pH of Urine 6.5 [facility] by Test Hospital strip ID Date Data Source [id number] 12/22/2018 06:11:00 AM EDT [facility] Name Value Range Interpretation Code Description Data Supporting Source(s) Document(s ) Specific 1.012 [facility] gravity of Hospital Urine by Test strip ID Date Data Source [id number] 12/22/2018 06:11:00 AM EDT [facility] Name Value Range Interpretation Description Data Sup porting Code Source(s) Document(s ) Clarity in Urine CLEAR [facility] by Ref[facility] automated ID Date Data Source [id number] 12/22/2018 06:11:00 AM EDT [facility] Name Value Range Interpretation Code Description Data Jackie rce(s) Supporting Document(s ) Color of YELLOW [facility] Urine Hospital ID Date Data Source [id number] 12/22/2018 02:44:00 AM EDT [facility] Name Value Range Interpretation Code Description Data Supporting Source(s) Document(s ) NUCLEATED RBCS 0.0 % [facility] (AUTO Hospital DIFF%)DIS ID Date Data Source [id number] 12/22/2018 02:44:00 AM EDT [facility] Value Range Interpretation Description Data Sup porting Code Source(s) Document(s ) Differential AUTOMATED [facility] cell count Hospital method - Blood ID Date Data Source [id number] 12/22/2018 02:44:00 AM EDT [facility] Value Range Interpretation Description Data Sup porting Code Source(s) Document(s ) Immature 0.05 [facility] granulocytes 10*3/uL Hospital [#/volume] in Blood by Automated count ID Date Data Source [id number] 12/22/2018 02:44:00 AM EDT [facility] Value Range Interpretation Description Data Sup porting Code Source(s) Document(s ) Basophils 0.04 [facility] [#/volume] in 10*3/uL Hospital Blood by Automated count ID Date Data Source [id number] 12/22/2018 02:44:00 AM EDT [facility] Name Value Range Interpretation Description Data Sup porting Code Source(s) Document(s ) Eosinophils 0.20 [facility] [#/volume] in 10*3/uL Hospital Blood by Automated count ID Date Data Source [id number] 12/22/2018 02:44:00 AM EDT [facility] Value Range Interpretation Description Data Sup porting Code Source(s) Document(s ) Monocytes 1.47 [facility] [#/volume] in 10*3/uL Hospital Blood by Automated count ID Date Data Source [id number] 12/22/2018 02:44:00 AM EDT [facility] Value Range Interpretation Description Data Sup porting Code Source(s) Document(s ) Lymphocytes 1.94 [facility] [#/volume] in 10*3/uL Hospital Blood by Automated count ID Date Data Source [id number] 12/22/2018 02:44:00 AM EDT [facility] Value Range Interpretation Description Data Sup porting Code Source(s) Document(s ) Neutrophils 8.25 [facility] [#/volume] in 10*3/uL Hospital Blood by Automated count ID Date Data Source [id number] 12/22/2018 02:44:00 AM EDT [facility] Value Range Interpretation Description Data Sup porting Code Source(s) Document(s ) Nucleated 0.0 % [facility] erythrocytes/10 Hospital 0 leukocytes [Ratio] in Blood by Automated count ID Date Data Source [id number] [facility] Description Data Sup porting Code Source(s) Document(s ) Immature 0.4 % [facility] granulocytes/10 Hospital 0 leukocytes in Blood by Automated count ID Date Data Source [id number] 12/22/2018 02:44:00 AM EDT [facility] Value Range Interpretation Description Data Sup porting Code Source(s) Document(s ) Basophils/100 0.3 % [facility] leukocytes in Hospital Blood by Automated count ID Date Data Source [id number] 12/22/2018 02:44:00 AM EDT [facility] Name Value Range Interpretation Description Data Sup porting Code Source(s) Document(s ) Eosinophils/100 1.7 % [facility] leukocytes in Hospital Blood by Automated count ID Date Data Source [id number] 12/22/2018 02:44:00 AM EDT [facility] Name Value Range Interpretation Description Data Sup porting Code Source(s) Document(s ) Monocytes/100 12.3 % [facility] leukocytes in Hospital Blood by Automated count ID Date Data Source [id number] 12/22/2018 02:44:00 AM EDT [facility] Name Value Range Interpretation Description Data Sup porting Code Source(s) Document(s ) Lymphocytes/10 16.2 % [facility] 0 leukocytes Hospital in Blood by Automated count ID Date Data Source [id number] 12/22/2018 02:44:00 AM EDT [facility] Value Range Interpretation Description Data Sup porting Code Source(s) Document(s ) Neutrophils/10 69.1 % [facility] 0 leukocytes Hospital in Blood by Automated count ID Date Data Source [id number] 12/22/2018 01:34:00 AM [facility] Value Range Interpretation Description Data Sup porting Code Source(s) Document(s ) Lactate 0.7 [facility] [Moles/volum mmol/L Hospital e] in Serum or Plasma ID Date Data Source [id number] 12/[facility]2018 [facility] Value Range Interpretation Description Data Sup porting Code Source(s) Document(s ) Bacteria [facility]ILLIN [facility] Culture ID Date Data Source [id number] 12/21/2018 08:27:[facility] Name Value Range Interpretation Description Data Sup porting Code Source(s) Document(s ) Bacteria METHICILLIN White identified in RES STAPH [place] W[facility] by [facility] Culture ID Date Data Source [id number] 12/21/2018 11:22:00 AM EDT [facility] Name Value Range Interpretation Description Data Sup porting Code Source(s) Document(s ) GLUCOSE RN Notified [facility] ID Date Data Source [id number] 12/20/2018 07:57:00 PM EDT [facility] Name Value Range Interpretation Description Data Sup porting Code Source(s) Document(s ) Bacteria [facility]ILLIN [facility] Culture ID Date Data Source [id number] 12/20/2018 07:57:00 PM EDT [facility] Name Value Range Interpretation Description Data Sup porting Code Source(s) Document(s ) Hyaline casts 0-5/LPF [facility] [#/area] in Hospital Urine sediment by Microscopy low power field ID Date Data Source [id number] 12/20/2018 07:57:00 PM EDT [facility] Name Value Range Interpretation Description Data Sup porting Code Source(s) Document(s ) Epithelial 2+ [facility] cells.squamous Hospital [#/area] in Urine sediment by Microscopy high power field ID Date Data Source [id number] 12/20/2018 07:57:00 PM EDT [facility] Name Value Range Interpretation Description Data Sup porting Code Source(s) Document(s ) Bacteria OCCASIONAL [facility] [#/area] in Hospital Urine sediment by Microscopy high power field ID Date Data Source [id number] 12/20/2018 07:57:[facility] Value Range Interpretation Description Data Sup porting Code Source(s) Document(s ) Erythrocytes 5-10 [facility] [#/area] in /[HPF] Hospital Urine sediment by Microscopy high power field ID Date Data Source [id number] 12/20/2018 07:57:00 PM EDT [facility] Name Value Range Interpretation Description Data Sup porting Code Source(s) Document(s ) Leukocytes 10-20 [facility] [#/area] in /[HPF] Hospital Urine sediment by Microscopy high power field ID Date Data Source [id number] 12/20/2018 07:57:00 [facility] Name Value Range Interpretation Description Data Sup porting Code Source(s) Document(s ) Bacteria METHICILLIN White identified in [facility] Urine by [facility] Culture ID Date Data Source [id number] 12/20/2018 07:57:00 [facility] Name Value Range Interpretation Description Data Sup porting Code Source(s) Document(s ) Hyaline casts 0-5/LPF [facility] [#/area] in Hospital Urine sediment by Microscopy low power field ID Date Data Source [id number] 12/20/2018 07:57:00 PM [facility] Name Value Range Interpretation Description Data Sup porting Code Source(s) Document(s ) Epithelial 2+ [facility] cells.squamous Hospital [#/area] in Urine sediment by Microscopy high power field ID Date Data Source [id number] 12/20/2018 07:57:00 [facility] Name Value Range Interpretation Description Data Sup porting Code Source(s) Document(s ) Bacteria OCCASIONAL [facility] [#/area] in Hospital Urine sediment by Microscopy high power field ID Date Data Source [id number] 12/20/2018 07:57:00 [facility] Name Value Range Interpretation Description Data Sup porting Code Source(s) Document(s ) Erythrocytes 5-10 [facility] [#/area] in /[HPF] Hospital Urine sediment by Microscopy high power field ID Date Data Source [id number] 12/20/2018 07:57:00 PM [facility] Name Value Range Interpretation Description Data Sup porting Code Source(s) Document(s ) Leukocytes 10-20 [facility] [#/area] in /[HPF] Hospital Urine sediment by Microscopy high power field ID Date Data Source [id number] 12/20/2018 10:02:00 AM [facility] TEST PERFORMED BY [employer] [facility] SENSIT[employer] [facility] CHEMILUMINESCENCE METHOD. Name Value Range Interpretation Description Data Sup porting Code Source(s) Document(s ) Troponin 0.01 [facility] I.cardiac ng/mL Hospital [Mass/volume ] in Serum or Plasma ID Date Data Source [id number] 12/20/2018 10:02:00 AM [facility] Name Value Range Interpretation Description Data Sup porting Code Source(s) Document(s ) Procalcitonin 0.4 [facility] [Mass/volume] in ng/mL Hospital Serum or Plasma ID Date Data Source [id number] 12/20/2018 10:02:00 AM [facility] Value Range Interpretation Code Description Data Jackie rce(s) Supporting Document(s ) Lipase 21 U/L [facility] [Enzymatic Hospital activity/vo lume] in Serum or Plasma ID Date Data Source [id number] 12/20/2018 10:02:00 AM [facility] Name Value Range Interpretation Description Data Sup porting Code Source(s) Document(s ) Magnesium 1.3 mg/dL [facility] [Mass/volume] Hospital in Serum or Plasma ID Date Data Source [id number] 12/20/2018 10:02:00 AM [facility] Name Value Range Interpretation Description Data Sup porting Code Source(s) Document(s ) Aspartate 24 U/L White aminotransferase [place] [Enzymatic Hospital activity/volume] in Serum or Plasma ID Date Data Source [id number] 12/20/2018 10:02:00 [facility] Name Value Range Interpretation Description Data Sup porting Code Source(s) Document(s ) Alanine 17 U/L White aminotransferase [place] [Enzymatic Hospital activity/volume] in Serum or Plasma ID Date Data Source [id number] 12/20/2018 10:02:00 [facility] Name Value Range Interpretation Description Data Sup porting Code Source(s) Document(s ) Alkaline 208 U/L [facility] phosphatase Hospital [Enzymatic activity/volume ] in Serum or Plasma ID Date Data Source [id number] 12/20/2018 10:02:00 AM [facility] Value Range Interpretation Description Data Sup porting Code Source(s) Document(s ) Bilirubin.t 0.5 mg/dL [facility] [Mass/volum e] in Serum or Plasma ID Date Data Source [id number] 12/20/2018 10:02:00 AM [facility] Value Range Interpretation Code Description Data Jackie rce(s) Supporting Document(s ) [facility]9 [facility] in Serum or Plasma ID Date Data Source [id number] 12/20/2018 10:02:00 [facility] Name Value Range Interpretation Description Data Sup porting Code Source(s) Document(s ) Albumin 3.8 g/dL [facility] [Mass/volume Hospital ] in Serum or Plasma ID Date Data Source [id number] 12/20/2018 10:02:00 AM [facility] Name Value Range Interpretation Description Data Sup porting Code Source(s) Document(s ) Protein 8.1 g/dL [facility] [Mass/volume Hospital ] in Serum or Plasma ID Date Data Source [id number] 12/20/2018 10:02:00 AM [facility] THERAPEUTIC RANGES:UNFRACTIONATED HEPARI N THERAPY: 60-90 SECONDSARGATROBAN THERAPY: 49-99 SECONDS Name Value Range Interpretation Description Data Sup porting Code Source(s) Document(s ) aPTT in 33.5 s [facility] Platelet poor [facility] plasma by Coagulation assay ID Date Data Source [id number] 12/20/2018 10:02:00 AM [facility] THERAPEUTIC RANGE FOR STANDARD ORALANTIC OAGULANT THERAPY: 2.0-3.0THERAPEUTIC RANGE FOR HIGH DOSE ORALANTICOAGULANT THERAPY (MECHANICAL HEARTVALVE REPLACEMENT): 2.5-3.5 Name Value Range Interpretation Description Data Sup porting Code Source(s) Document(s ) INR in Platelet 1.3 [facility] plasma by Hospital Coagulation assay ID Date Data Source [id number] 12/20/2018 10:02:00 AM [facility] Name Value Range Interpretation Description Data Sup porting Code Source(s) Document(s ) PT panel - 15.0 s [facility] Platelet poor [facility] plasma by Coagulation assay ID Date Data Source [id number] 12/20/2018 10:02:00 AM [facility] Name Value Range Interpretation Code Description Data Jackie rce(s) Supporting Document(s ) Cells 100 [facility] Total [#] in Blood ID Date Data Source [id number] 12/20/2018 10:02:00 AM [facility] Name Value Range Interpretation Code Description Data Supporting Source(s) Document(s ) PLATELET NORMAL [facility] ID Date Data Source [id number] 12/20/2018 10:02:00 AM [facility] Name Value Range Interpretation Code Description Data Jackie rce(s) Supporting Document(s ) LANI CELLS 1+ [facility] ID Date Data Source [id number] 12/20/2018 10:02:00 AM EDT [facility] Value Range Interpretation Code Description Data Jackie rce(s) Supporting Document(s ) TARGET CELLS OCC [facility] ID Date Data Source [id number] 12/20/2018 10:02:00 AM EDT [facility] Value Range Interpretation Code Description Data Jackie rce(s) Supporting Document(s ) HYPOCHROMIA OCC [facility] ID Date Data Source [id number] 12/20/2018 10:02:00 AM EDT [facility] Value Range Interpretation Code Description Data Jackie rce(s) Supporting Document(s ) MICROCYTOSIS 2+ [facility] ID Date Data Source [id number] 12/20/2018 10:02:00 AM EDT [facility] Value Range Interpretation Description Data Sup porting Code Source(s) Document(s ) POIKILOCYTOSIS 1+ [facility] ID Date Data Source [id number] 12/20/2018 10:02:00 AM EDT [facility] Value Range Interpretation Code Description Data Jackie rce(s) Supporting Document(s ) ANISOCYTOSIS 1+ [facility] ID Date Data Source [id number] 12/20/2018 10:02:00 AM EDT [facility] Value Range Interpretation Description Data Sup porting Code Source(s) Document(s ) Basophils 0.26 [facility] [#/volume] in 10*3/uL Hospital Blood by Manual count ID Date Data Source [id number] 12/20/2018 10:02:00 AM EDT [facility] Name Value Range Interpretation Description Data Sup porting Code Source(s) Document(s ) Monocytes 1.31 [facility] [#/volume] in 10*3/uL Hospital Blood by Manual count ID Date Data Source [id number] 12/20/2018 10:02:00 AM EDT [facility] Value Range Interpretation Description Data Sup porting Code Source(s) Document(s ) Lymphocytes 4.18 [facility] [#/volume] in 10*3/uL Hospital Blood by Manual count ID Date Data Source [id number] 12/20/2018 10:02:00 AM EDT [facility] Value Range Interpretation Description Data Sup porting Code Source(s) Document(s ) Neutrophils 20.36 [facility] [#/volume] in 10*3/uL Hospital Blood by Manual count ID Date Data Source [id number] 12/20/2018 10:02:00 AM EDT [facility] Value Range Interpretation Description Data Sup porting Code Source(s) Document(s ) Basophils/100 1 % [facility] leukocytes in Hospital Blood by Manual count ID Date Data Source [id number] 12/20/2018 10:02:00 AM EDT [facility] Value Range Interpretation Description Data Sup porting Code Source(s) Document(s ) Monocytes/100 5 % [facility] leukocytes in Hospital Blood by Manual count ID Date Data Source [id number] 12/20/2018 10:02:00 AM EDT [facility] Value Range Interpretation Description Data Sup porting Code Source(s) Document(s ) Variant 1 % [facility] lymphocytes/100 Hospital leukocytes in Blood by Manual count ID Date Data Source [id number] 12/20/2018 10:02:00 AM EDT [facility] Value Range Interpretation Description Data Sup porting Code Source(s) Document(s ) Lymphocytes/100 15 % [facility] leukocytes in Hospital Blood by Manual count ID Date Data Source [id number] 12/20/2018 10:02:00 AM [facility] Name Value Range Interpretation Description Data Sup porting Code Source(s) Document(s ) Neutrophils/100 78 % [facility] leukocytes in Hospital Blood by Manual count ID Date Data Source [id number] 12/20/2018 [facility]02[facility] Value Range Interpretation Description Data Sup porting Code Source(s) Document(s ) Procalcitonin 0.4 [facility] [Mass/volume] in ng/mL Hospital Serum or Plasma ID Date Data Source [id number] 12/20/2018 10:02:00 AM [facility] Name Value Range Interpretation Code Description Data Jackie rce(s) Supporting Document(s ) Lipase 21 U/L [facility] [Enzymatic Hospital activity/vo lume] in Serum or Plasma ID Date Data Source [id number] 12/20/2018 10:02:00 AM [facility] Name Value Range Interpretation Description Data Sup porting Code Source(s) Document(s ) Magnesium 1.3 mg/dL [facility] [Mass/volume] Hospital in Serum or Plasma ID Date Data Source [id number] 12/20/2018 10:02:00 AM [facility] THERAPEUTIC RANGES:UNFRACTIONATED HEPARI N THERAPY: 60-90 SECONDSARGATROBAN THERAPY: 49-99 SECONDS Name Value Range Interpretation Description Data Sup porting Code Source(s) Document(s ) aPTT in 33.5 s [facility] Platelet poor [facility] plasma by Coagulation assay ID Date Data Source [id number] 12/20/2018 10:02:00 AM [facility] Name Value Range Interpretation Code Description Data Jackie rce(s) Supporting Document(s ) Cells 100 [facility] Total [#] in Blood ID Date Data Source [id number] 12/20/2018 10:02:00 AM EDT [facility] Value Range Interpretation Code Description Data Supporting Source(s) Document(s ) PLATELET NORMAL [facility] ID Date Data Source [id number] 12/20/2018 10:02:00 AM EDT [facility] Name Value Range Interpretation Code Description Data Jackie rce(s) Supporting Document(s ) LANI CELLS 1+ [facility] ID Date Data Source [id number] 12/20/2018 10:02:00 AM EDT [facility] Value Range Interpretation Code Description Data Jackie rce(s) Supporting Document(s ) TARGET CELLS OCC [facility] ID Date Data Source [id number] 12/20/2018 10:02:00 AM EDT [facility] Value Range Interpretation Code Description Data Jackie rce(s) Supporting Document(s ) HYPOCHROMIA OCC [facility] ID Date Data Source [id number] 12/20/2018 10:02:00 AM EDT [facility] Value Range Interpretation Code Description Data Jackie rce(s) Supporting Document(s ) MICROCYTOSIS 2+ [facility] ID Date Data Source [id number] 12/20/2018 10:02:00 AM EDT [facility] Value Range Interpretation Description Data Sup porting Code Source(s) Document(s ) POIKILOCYTOSIS 1+ [facility] ID Date Data Source [id number] 12/20/2018 10:02:00 AM EDT [facility] Value Range Interpretation Code Description Data Jackie rce(s) Supporting Document(s ) ANISOCYTOSIS 1+ [facility] ID Date Data Source [id number] 12/20/2018 10:02:00 AM EDT [facility] Name Value Range Interpretation Description Data Sup porting Code Source(s) Document(s ) Basophils 0.26 [facility] [#/volume] in 10*3/uL Hospital Blood by Manual count ID Date Data Source [id number] 12/20/2018 10:02:00 AM EDT [facility] Name Value Range Interpretation Description Data Sup porting Code Source(s) Document(s ) Monocytes 1.31 [facility] [#/volume] in 10*3/uL Hospital Blood by Manual count ID Date Data Source [id number] 12/20/2018 10:02:00 AM EDT [facility] Value Range Interpretation Description Data Sup porting Code Source(s) Document(s ) Lymphocytes 4.18 [facility] [#/volume] in 10*3/uL Hospital Blood by Manual count ID Date Data Source [id number] 12/20/2018 10:02:00 AM EDT [facility] Value Range Interpretation Description Data Sup porting Code Source(s) Document(s ) Neutrophils 20.36 [facility] [#/volume] in 10*3/uL Hospital Blood by Manual count ID Date Data Source [id number] 12/20/2018 10:02:00 AM EDT [facility] Name Value Range Interpretation Description Data Sup porting Code Source(s) Document(s ) Basophils/100 1 % [facility] leukocytes in Hospital Blood by Manual count ID Date Data Source [id number] 12/20/2018 10:02:00 AM EDT [facility] Name Value Range Interpretation Description Data Sup porting Code Source(s) Document(s ) Monocytes/100 5 % [facility] leukocytes in Hospital Blood by Manual count ID Date Data Source [id number] 12/20/2018 10:02:00 AM [facility] Name Value Range Interpretation Description Data Sup porting Code Source(s) Document(s ) Variant 1 % [facility] lymphocytes/100 Hospital leukocytes in Blood by Manual count ID Date Data Source [id number] 12/20/2018 10:02:00 AM [facility] Name Value Range Interpretation Description Data Sup porting Code Source(s) Document(s ) Lymphocytes/100 15 % [facility] leukocytes in Hospital Blood by Manual count ID Date Data Source [id number] 12/20/2018 10:02:00 AM [facility] Name Value Range Interpretation Description Data Sup porting Code Source(s) Document(s ) Neutrophils/100 78 % [facility] leukocytes in Hospital Blood by Manual count ID Date Data Source [id number] 12/20/2018 09:49:00 AM [facility] Name Value Range Interpretation Description Data Sup porting Code Source(s) Document(s ) Bacteria METHICILLIN White identified in RES STAPH [place] Blood by [facility] Culture ID Date Data Source [id number] 12/18/2018 02:58:00 PM [facility] Name Value Range Interpretation Description Data Sup porting Code Source(s) Document(s ) Bacteria CORYNEBACTERIUM White identified SPECIES [place] in Wound by Hospital Culture Bacteria METHICILLIN RES White identified STAPH [facility] [place] in Wound by Hospital Culture ID Date Data Source [id number] 12/18/2018 06:27:00 AM [facility] Child Care Associate Teacher:FIDELIA CESPEDES Name Value Range Interpretation Description Data Sup porting Code Source(s) Document(s ) Glucose 177 mg/dL [facility] [Mass/volume] [facility] in Capillary blood by Glucometer ID Date Data Source [id number] 12/17/2018 11:03:00 AM EDT [facility] Name Value Range Interpretation Description Data Sup porting Code Source(s) Document(s ) GLUCOSE Pre Meal [facility] Hospital ID Date Data Source [id number] 12/17/2018 11:03:00 AM EDT [facility] Name Value Range Interpretation Description Data Sup porting Code Source(s) Document(s ) GLUCOSE Pre Meal [place] [address] Hospital ID Date Data Source [id number] 12/17/2018 11:03:00 AM EDT [facility] Name Value Range Interpretation Description Data Sup porting Code Source(s) Document(s ) GLUCOSE RN Notified [facility] Hospital ID Date Data Source [id number] 12/17/2018 08:45:00 AM EDT [facility] Name Value Range Interpretation Description Data Sup porting Code Source(s) Document(s ) Calcium 8.4 mg/dL [facility] [Mass/volume Hospital ] in Serum or Plasma ID Date Data Source [id number] 12/17/2018 08:45:00 AM EDT [facility] Name Value Range Interpretation Code Description Data Jackie rce(s) Supporting Document(s ) Urea 13.8 [facility] nitrogen/Cre [facility] atinine [Mass Ratio] in Serum or Plasma ID Date Data Source [id number] 12/17/2018 08:45:00 AM EDT [facility] Name Value Range Interpretation Description Data Sup porting Code Source(s) Document(s ) Creatinine 0.8 mg/dL [facility] [Mass/volume] Hospital in Serum or Plasma ID Date Data Source [id number] 12/17/2018 08:45:00 AM EDT [facility] Name Value Range Interpretation Description Data Sup porting Code Source(s) Document(s ) Urea 11 mg/dL [facility] nitrogen Hospital [Mass/volume ] in Serum or Plasma ID Date Data Source [id number] 12/17/2018 08:45:00 AM EDT [facility] Name Value Range Interpretation Code Description Data Jackie rce(s) Supporting Document(s ) Anion gap in 12 [facility] Serum or [facility] Plasma ID Date Data Source [id number] 12/17/2018 08:45:00 AM EDT [facility] Name Value Range Interpretation Description Data Sup porting Code Source(s) Document(s ) Carbon 25 mmol/L [facility] dioxide, Hospital total [Moles/volu me] in Serum or Plasma ID Date Data Source [id number] 12/17/2018 08:45:00 AM EDT [facility] Name Value Range Interpretation Description Data Sup porting Code Source(s) Document(s ) Chloride 99 mmol/L [facility] [Moles/volum Hospital e] in Serum or Plasma ID Date Data Source [id number] 12/17/2018 08:45:00 AM EDT [facility] Name Value Range Interpretation Description Data Sup porting Code Source(s) Document(s ) Potassium 4.0 [facility] [Moles/volume mmol/L Hospital ] in Serum or Plasma ID Date Data Source [id number] 12/17/2018 08:45:00 AM EDT [facility] Name Value Range Interpretation Description Data Sup porting Code Source(s) Document(s ) Sodium 132 mmol/L [facility] [Moles/volu Hospital me] in Serum or Plasma ID Date Data Source [id number] 12/17/2018 08:45:00 AM EDT [facility] Name Value Range Interpretation Description Data Sup porting Code Source(s) Document(s ) Glucose 198 mg/dL [facility] [Mass/volume Hospital ] in Serum or Plasma ID Date Data Source [id number] 12/17/2018 08:45:00 AM EDT [facility] Name Value Range Interpretation Description Data Sup porting Code Source(s) Document(s ) Differential AUTOMATED [facility] cell count [facility] method - Blood ID Date Data Source [id number] 12/17/2018 08:45:00 AM EDT [facility] Name Value Range Interpretation Description Data Sup porting Code Source(s) Document(s ) Immature 0.06 [facility] granulocytes 10*3/uL Hospital [#/volume] in Blood by Automated count ID Date Data Source [id number] 12/17/2018 08:45:00 AM EDT [facility] Value Range Interpretation Description Data Sup porting Code Source(s) Document(s ) Basophils 0.04 [facility] [#/volume] in 10*3/uL Hospital Blood by Automated count ID Date Data Source [id number] [facility] Value Range Interpretation Description Data Sup porting Code Source(s) Document(s ) Eosinophils 0.25 [facility] [#/volume] in 10*3/uL Hospital Blood by Automated count ID Date Data Source [id number] 12/17/2018 08:45:00 AM EDT [facility] Name Value Range Interpretation Description Data Sup porting Code Source(s) Document(s ) Monocytes 1.42 [facility] [#/volume] in 10*3/uL Hospital Blood by Automated count ID Date Data Source [id number] 12/17/2018 08:45:00 AM EDT [facility] Name Value Range Interpretation Description Data Sup porting Code Source(s) Document(s ) Lymphocytes 2.54 [facility] [#/volume] in 10*3/uL Hospital Blood by Automated count ID Date Data Source [id number] 12/17/2018 08:45:00 AM EDT [facility] Value Range Interpretation Description Data Sup porting Code Source(s) Document(s ) Neutrophils 8.07 [facility] [#/volume] in 10*3/uL Hospital Blood by Automated count ID Date Data Source [id number] 12/17/2018 08:45:00 AM EDT [facility] Value Range Interpretation Description Data Sup porting Code Source(s) Document(s ) Nucleated 0.0 % [facility] erythrocytes/10 Hospital 0 leukocytes [Ratio] in Blood by Automated count ID Date Data Source [id number] 12/17/2018 08:45:00 AM EDT [facility] Value Range Interpretation Description Data Sup porting Code Source(s) Document(s ) Immature 0.5 % [facility] granulocytes/10 Hospital 0 leukocytes in Blood by Automated count ID Date Data Source [id number] 12/17/2018 08:45:00 AM EDT [facility] Value Range Interpretation Description Data Sup porting Code Source(s) Document(s ) Basophils/100 0.3 % [facility] leukocytes in [facility] Blood by Automated count ID Date Data Source [id number] 12/17/2018 08:45:00 AM EDT [facility] Value Range Interpretation Description Data Sup porting Code Source(s) Document(s ) Eosinophils/100 2.0 % [facility] leukocytes in [facility] Blood by Automated count ID Date Data Source [id number] 12/17/2018 08:45:00 AM EDT [facility] Value Range Interpretation Description Data Sup porting Code Source(s) Document(s ) Monocytes/100 11.5 % [facility] leukocytes in Hospital Blood by Automated count ID Date Data Source [id number] 12/17/2018 08:45:00 AM EDT [facility] Name Value Range Interpretation Description Data Sup porting Code Source(s) Document(s ) Lymphocytes/10 20.5 % [facility] 0 leukocytes Hospital in Blood by Automated count ID Date Data Source [id number] 12/17/2018 08:45:00 AM EDT [facility] Value Range Interpretation Description Data Sup porting Code Source(s) Document(s ) Neutrophils/10 65.2 % [facility] 0 leukocytes Hospital in Blood by Automated count ID Date Data Source [id number] 12/17/2018 08:45:00 AM EDT [facility] Value Range Interpretation Description Data Sup porting Code Source(s) Document(s ) Platelet mean 10.3 fL [facility] volume Hospital [Entitic volume] in Blood by Automated count ID Date Data Source [id number] 12/17/2018 08:45:00 AM EDT [facility] Value Range Interpretation Description Data Sup porting Code Source(s) Document(s ) Platelets 386 [facility] [#/volume] in 10*3/uL Hospital Blood by Automated count ID Date Data Source [id number] 12/17/2018 08:45:00 AM EDT [facility] Value Range Interpretation Description Data Sup porting Code Source(s) Document(s ) Erythrocyte 20.1 % [facility] distribution Hospital width [Ratio] by Automated count ID Date Data Source [id number] 12/17/2018 08:45:00 AM EDT [facility] Name Value Range Interpretation Description Data Sup porting Code Source(s) Document(s ) Erythrocyte mean 31.9 [facility] corpuscular g/dL Hospital hemoglobin concentration [Mass/volume] by Automated count ID Date Data Source [id number] 12/17/2018 08:45:00 AM EDT [facility] Name Value Range Interpretation Description Data Sup porting Code Source(s) Document(s ) Erythrocyte 24.6 pg [facility] corpuscular hemoglobin [Entitic mass] by Automated count ID Date Data Source [id number] 12/17/2018 08:45:00 AM EDT [facility] Value Range Interpretation Description Data Sup porting Code Source(s) Document(s ) Erythrocyte 76.9 fL [facility] corpuscular volume [Entitic volume] by Automated count ID Date Data Source [id number] 12/17/2018 08:45:00 AM [facility] Value Range Interpretation Description Data Sup porting Code Source(s) Document(s ) Hematocrit 26.3 % [facility] [Volume Hospital Fraction] of Blood by Automated count ID Date Data Source [id number] 12/17/2018 08:45:00 AM [facility] Value Range Interpretation Description Data Sup porting Code Source(s) Document(s ) Hemoglobin 8.4 g/dL [facility] [Mass/volume] Hospital in Blood ID Date Data Source [id number] 12/17/2018 08:45:00 AM [facility] Value Range Interpretation Description Data Sup porting Code Source(s) Document(s ) Erythrocytes 3.42 [facility] [#/volume] in 10*6/uL Hospital Blood by Automated count ID Date Data Source [id number] [facility] Description Data Sup porting Code Source(s) Document(s ) Leukocytes 12.4 [facility] [#/volume] in 10*3/uL Hospital Blood by Automated count ID Date Data Source [id number] 12/16/2018 08:01:00 AM EDT [facility] Name Value Range Interpretation Description Data Sup porting Code Source(s) Document(s ) Phosphate 2.8 mg/dL [facility] [Mass/volume] Hospital in Serum or Plasma ID Date Data Source [id number] 12/16/2018 08:01:00 AM [facility] Name Value Range Interpretation Description Data Sup porting Code Source(s) Document(s ) Bilirubin.d < 0.1 [facility] irect mg/dL Hospital [Mass/volum e] in Serum or Plasma ID Date Data Source [id number] 12/16/2018 08:01:00 AM [facility] UNITS ARE IN ml/min/1.73m2.IF PATIENT IS -[place], MULTIPLY REPORTED RESULT BY 1.21. Name Value Range Interpretation Description Data Sup porting Code Source(s) Document(s ) Glomerular > 60 [facility] filtration mL/min Hospital rate/1.73 sq M.predicted [Volume Rate/Area] in Serum or Plasma by Creatinine-bas ed formula (MDRD) ID Date Data Source [id number] 12/16/2018 08:01:00 AM [facility] Name Value Range Interpretation Description Data Sup porting Code Source(s) Document(s ) Phosphate 2.8 mg/dL [facility] [Mass/volume] Hospital in Serum or Plasma ID Date Data Source [id number] 12/16/2018 08:01:00 AM [facility] Name Value Range Interpretation Description Data Sup porting Code Source(s) Document(s ) Magnesium 1.3 mg/dL [facility] [Mass/volume] Hospital in Serum or Plasma ID Date Data Source [id number] 12/16/2018 08:01:00 AM [facility] Name Value Range Interpretation Description Data Sup porting Code Source(s) Document(s ) Aspartate 15 U/L [place] aminotransferase [place] [Enzymatic Hospital activity/volume] in Serum or Plasma ID Date Data Source [id number] 12/16/2018 08:01:00 AM EDT [facility] Name Value Range Interpretation Description Data Sup porting Code Source(s) Document(s ) Alanine 15 U/L [place] aminotransferase [place] [Enzymatic Hospital activity/volume] in Serum or Plasma ID Date Data Source [id number] 12/16/2018 08:01:00 AM EDT [facility] Name Value Range Interpretation Description Data Sup porting Code Source(s) Document(s ) Alkaline 145 U/L [facility] phosphatase Hospital [Enzymatic activity/volume ] in Serum or Plasma ID Date Data Source [id number] 12/16[facility] Interpretation Description Data Sup porting Code Source(s) Document(s ) Bilirubin.d < 0.1 [facility] irect mg/dL Hospital [Mass/volum e] in Serum or Plasma ID Date Data Source [id number] 12/16/2018 08:01:00 AM [facility] Name Value Range Interpretation Description Data Sup porting Code Source(s) Document(s ) Bilirubin.t 0.2 mg/dL [facility] [Mass/volum e] in Serum or Plasma ID Date Data Source [id number] 12/16/2018 08:01:00 AM EDT [facility] Name Value Range Interpretation Code Description Data Jackie rce(s) Supporting Document(s ) Albumin/Glob 1.0 [facility] ulin [Mass Hospital Ratio] in Serum or Plasma ID Date Data Source [id number] 12/16/2018 [facility] Value Range Interpretation Description Data Sup porting Code Source(s) Document(s ) Albumin 3.3 g/dL [facility] [Mass/volume Hospital ] in Serum or Plasma ID Date Data Source [id number] 12/16/2018 08:01:00 AM [facility] Name Value Range Interpretation Description Data Sup porting Code Source(s) Document(s ) Protein 6.6 g/dL [facility] [Mass/volume Hospital ] in Serum or Plasma ID Date Data Source [id number] 12/16/2018 08:01:00 AM [facility] UNITS ARE IN ml/min/1.73m2.IF PATIENT IS -[place], MULTIPLY REPORTED RESULT BY 1.21. Name Value Range Interpretation Description Data Sup porting Code Source(s) Document(s ) Glomerular > 60 [facility] filtration mL/min Hospital rate/1.73 sq M.predicted [Volume Rate/Area] in Serum or Plasma by Creatinine-bas ed formula (MDRD) ID Date Data Source [id number] 12/16/2018 08:01:00 AM [facility] Name Value Range Interpretation Code Description Data Supporting Source(s) Document(s ) NUCLEATED RBCS 0.0 % [facility] (AUTO Hospital DIFF%)DIS ID Date Data Source [id number] 12/15/2018 10:52:00 AM [facility] TEST PERFORMED BY [employer] [facility] CHEMILUMINESCENCE METHOD. Name Value Range Interpretation Description Data Sup porting Code Source(s) Document(s ) Troponin 0.01 [facility] I.cardiac ng/mL Hospital [Mass/volume ] in Serum or Plasma ID Date Data Source [id number] 12/12/2018 07:31:00 AM [facility] Name Value Range Interpretation Description Data Sup porting Code Source(s) Document(s ) Bacteria No growth [facility] identified in Hospital Blood by Culture ID Date Data Source [id number] 12/11/2018 06:54:00 AM [facility] Name Value Range Interpretation Description Data Sup porting Code Source(s) Document(s ) Procalcitonin 0.2 [facility] [Mass/volume] in ng/mL Hospital Serum or Plasma ID Date Data Source [id number] 12/07/2018 07:11:00 PM [facility] Name Value Range Interpretation Description Data Sup porting Code Source(s) Document(s ) MEAN 80.0 fL [facility] VOLUME ID Date Data Source [id number] 12/07/2018 07:11:00 PM [facility] Name Value Range Interpretation Description Data Sup porting Code Source(s) Document(s ) MEAN 80.0 fL [facility] VOLUME ID Date Data Source [id number] 12/07/2018 08:40:00 AM [facility] ADA RECOMMENDATIONS: NON-DIABETES: 4.0-6.0% CONTROLLED DIABETES: 6.0-8.0% UNCONTROLLED DIABETE S: UP TO 20%RECOMMENDED ADA RESULT FOR THERAPY: HEMOGLOBIN A1C RESULT LESS FRANK N 7%.NOTE: METHOD CHANGE EFFECTIVE 11/06/14. Name Value Range Interpretation Description Data Sup porting Code Source(s) Document(s ) Hemoglobin 7.8 % [facility] A1c/Hemoglobin. Hospital total in Blood ID Date Data Source [id number] 12/07/2018 08:40:00 AM [facility] ADA RECOMMENDATIONS: NON-DIABETES: 4.0-6.0% CONTROLLED DIABETES: 6.0-8.0% UNCONTROLLED DIABETE S: UP TO 20%RECOMMENDED ADA RESULT FOR THERAPY: HEMOGLOBIN A1C RESULT LESS FRANK N 7%.NOTE: METHOD CHANGE EFFECTIVE 11/06/14. Name Value Range Interpretation Description Data Sup porting Code Source(s) Document(s ) Hemoglobin 7.8 % [facility] A1c/Hemoglobin. Hospital total in Blood ID Date Data Source [id number] 12/06/2018 02:05:00 PM EDT [facility] CUT-OFF >= 200 NG/ML. Name Value Range Interpretation Description Data Sup porting Code Source(s) Document(s ) BENZODIAZEPINES NEGATIVE [place] (UR) [place] [facility] ID Date Data Source [id number] 12/06/2018 02:05:00 PM EDT [facility] CUT-OFF >= 200 NG/ML. Name Value Range Interpretation Description Data Sup porting Code Source(s) Document(s ) BARBITURATES NEGATIVE [facility] (UR) Hospital ID Date Data Source [id number] 12/06/2018 02:05:00 PM EDT [facility] CUT-OFF >= 1000 NG/ML. Name Value Range Interpretation Description Data Sup porting Code Source(s) Document(s ) AMPHETAMINES NEGATIVE [facility] (UR) Hospital ID Date Data Source [id number] 12/06/2018 02:05:00 PM EDT [facility] CUT-OFF >= 25 NG/ML.THE FINDINGS OF [...] rce(s) Supporting Document(s ) PCP (UR) NEGATIVE [facility] ID Date Data Source [id number] 12/06/2018 02:05:00 PM EDT [facility] CUT-OFF >= 50 NG/ML. Name Value Range Interpretation Code Description Data Jackie rce(s) Supporting Document(s ) THC (UR) NEGATIVE [facility] ID Date Data Source [id number] 12/06/2018 02:05:00 PM EDT [facility] CUT-OFF >= 300 NG/ML. Name Value Range Interpretation Description Data Sup porting Code Source(s) Document(s ) OPIATES (UR) POSITIVE [facility] ID Date Data Source [id number] 12/06/2018 02:05:00 PM EDT [facility] CUT-OFF >= 300 NG/ML. Name Value Range Interpretation Description Data Sup porting Code Source(s) Document(s ) COCAINE (UR) NEGATIVE [facility] ID Date Data Source [id number] 12/06/2018 02:05:00 PM EDT [facility] CUT-OFF >= 200 NG/ML. Name Value Range Interpretation Description Data Sup porting Code Source(s) Document(s ) BENZODIAZEPINES NEGATIVE [place] (UR) [place] [facility] ID Date Data Source [id number] 12/06/2018 02:05:00 PM EDT [facility] CUT-OFF >= 200 NG/ML. Name Value Range Interpretation Description Data Sup porting Code Source(s) Document(s ) BARBITURATES NEGATIVE [facility] (UR) Hospital ID Date Data Source [id number] 12/06/2018 02:05:00 PM EDT [facility] CUT-OFF >= 1000 NG/ML. Name Value Range Interpretation Description Data Sup porting Code Source(s) Document(s ) AMPHETAMINES NEGATIVE [facility] (UR) Hospital ID Date Data Source [id number] 12/06/2018 02:05:00 PM EDT [facility] CUT-OFF >= 25 NG/ML.THE FINDINGS OF [...] rce(s) Supporting Document(s ) PCP (UR) NEGATIVE [facility] ID Date Data Source [id number] 12/06/2018 02:05:00 PM EDT [facility] CUT-OFF >= 50 NG/ML. Name Value Range Interpretation Code Description Data Jackie rce(s) Supporting Document(s ) THC (UR) NEGATIVE [facility] ID Date Data Source [id number] 12/06/2018 02:05:00 PM EDT [facility] CUT-OFF >= 300 NG/ML. Name Value Range Interpretation Description Data Sup porting Code Source(s) Document(s ) OPIATES (UR) POSITIVE [facility] ID Date Data Source [id number] 12/06/2018 [facility]05[facility] 300 NG/ML. Name Value Range Interpretation Description Data Sup porting Code Source(s) Document(s ) COCAINE (UR) NEGATIVE [facility] ID Date Data Source [id number] 12/06/2018 01:57:00 [facility] Name Value Range Interpretation Description Data Sup porting Code Source(s) Document(s ) Erythrocytes 3-5 [facility] [#/area] in /[HPF] Hospital Urine sediment by Microscopy high power field ID Date Data Source [id number] 12/06/2018 01:57:00 PM [facility] Name Value Range Interpretation Description Data Sup porting Code Source(s) Document(s ) Leukocytes 0-3 [facility] [#/area] in /[HPF] Hospital Urine sediment by Microscopy high power field ID Date Data Source [id number] 12/06/2018 01:57:00 PM [facility] Name Value Range Interpretation Description Data Sup porting Code Source(s) Document(s ) Leukocyte NEGATIVE [facility] [Presence] in Urine by Test strip ID Date Data Source [id number] 12/06/2018 01:57:00 [facility] Name Value Range Interpretation Description Data Sup porting Code Source(s) Document(s ) URINE NEGATIVE [facility] NITRITES Hospital ID Date Data Source [id number] 12/06/2018 01:57:00 PM EDT [facility] Name Value Range Interpretation Description Data Sup porting Code Source(s) Document(s ) Erythrocytes TRACE [facility] [#/volume] in Hospital Urine by Test strip ID Date Data Source [id number] 12/06/2018 01:57:00 PM EDT [facility] Name Value Range Interpretation Code Description Data Jackie rce(s) Supporting Document(s ) Bilirubin. NEGATIVE [facility] total Hospital [Presence] in Urine by Test strip ID Date Data Source [id number] 12/06/2018 01:57:00 PM EDT [facility] Value Range Interpretation Description Data Sup porting Code Source(s) Document(s ) Urobilinogen 0.2 [facility] [Units/volume] mg/dL Hospital in Urine by Test strip ID Date Data Source [id number] 12/06/2018 01:57:00 PM EDT [facility] Name Value Range Interpretation Code Description Data Jackie rce(s) Supporting Document(s ) Ketones TRACE [facility] [Mass/volume Hospital ] in Urine by Test strip ID Date Data Source [id number] 12/06/2018 01:57:00 PM EDT [facility] Name Value Range Interpretation Code Description Data Jackie rce(s) Supporting Document(s ) Glucose 2+ [facility] [Mass/volume Hospital ] in Urine by Test strip ID Date Data Source [id number] 12/06/2018 01:57:00 PM EDT [facility] Name Value Range Interpretation Code Description Data Jackie rce(s) Supporting Document(s ) Protein 3+ [facility] [Presence] Hospital in Urine by Test strip ID Date Data Source [id number] 12/06/2018 01:57:00 PM EDT [facility] Name Value Range Interpretation Code Description Data Jackie rce(s) Supporting Document(s ) pH of Urine 7.0 [facility] by Test Hospital strip ID Date Data Source [id number] 12/06/2018 01:57:00 PM EDT [facility] Name Value Range Interpretation Code Description Data Supporting Source(s) Document(s ) Specific 1.022 [facility] gravity of Hospital Urine by Test strip ID Date Data Source [id number] 12/06[facility] Interpret[facility] Description Data Sup porting Code Source(s) Document(s ) Clarity in Urine CLEAR [facility] by Refractometry Hospital automated ID Date Data Source [id number] 12/06/2018 [facility]57[facility] Interpret[facility] Code Description Data Jackie rce(s) Supporting Document(s ) Color of YELLOW [facility] Urine Hospital ID Date Data Source [id number] 12/06/2018 [facility]24[facility] Interpretation Description Data Sup porting Code Source(s) Document(s ) Lactate 0.8 [facility] [Moles/volum mmol/L Hospital e] in Serum or Plasma ID Date Data Source [id number] 12/06/2018 07:51:00 AM EDT [facility] Value Range Interpretation Code Description Data Jackie rce(s) Supporting Document(s ) Lipase 15 U/L [facility] [Enzymatic Hospital activity/vo lume] in Serum or Plasma ID Date Data Source [id number] 12/06/2018 07:51:00 AM EDT [facility] Value Range Interpretation Code Description Data Jackie rce(s) Supporting Document(s ) Cells 100 [facility] Counted Hospital Total [#] in Blood ID Date Data Source [id number] 12/06/2018 07:51:00 AM EDT [facility] Value Range Interpretation Code Description Data Supporting Source(s) Document(s ) PLATELET NORMAL [facility] ID Date Data Source [id number] 12/06/2018 07:51:00 AM EDT [facility] Name Value Range Interpretation Code Description Data Jackie rce(s) Supporting Document(s ) HYPOCHROMIA 2+ [facility] ID Date Data Source [id number] 12/06/2018 07:51:00 AM EDT [facility] Value Range Interpretation Code Description Data Jackie rce(s) Supporting Document(s ) MICROCYTOSIS 1+ [facility] [facility] ID Date Data Source [id number] 12/06/2018 07:51:00 AM EDT [facility] Value Range Interpretation Code Description Data Jackie rce(s) Supporting Document(s ) ANISOCYTOSIS 2+ [facility] ID Date Data Source [id number] 12/06/2018 07:51:00 AM EDT [facility] Value Range Interpretation Description Data Sup porting Code Source(s) Document(s ) Monocytes 0.28 [facility] [#/volume] in 10*3/uL Hospital Blood by Manual count ID Date Data Source [id number] 12/06/2018 07:51:00 AM EDT [facility] Value Range Interpretation Description Data Sup porting Code Source(s) Document(s ) Lymphocytes 1.11 [facility] [#/volume] in 10*3/uL Hospital Blood by Manual count ID Date Data Source [id number] 12/06/2018 07:51:00 AM EDT [facility] Value Range Interpretation Description Data Sup porting Code Source(s) Document(s ) Neutrophils 12.51 [facility] [#/volume] in 10*3/uL Hospital Blood by Manual count ID Date Data Source [id number] 12/06/2018 07:51:00 AM EDT [facility] Value Range Interpretation Description Data Sup porting Code Source(s) Document(s ) Monocytes/100 2 % [facility] leukocytes in Hospital Blood by Manual count ID Date Data Source [id number] 12/06/2018 07:51:00 AM EDT [facility] Value Range Interpretation Description Data Sup porting Code Source(s) Document(s ) Lymphocytes/100 8 % [facility] leukocytes in Hospital Blood by Manual count ID Date Data Source [id number] 12/06/2018 07:51:00 AM EDT [facility] Value Range Interpretation Description Data Sup porting Code Source(s) Document(s ) Neutrophils/100 90 % [facility] leukocytes in Hospital Blood by Manual count ID Date Data Source [id number] [facility] Interpret[facility] Description Data Sup porting Code Source(s) Document(s ) Methicillin PATIENT IS White resistant PRESUMED [place] Staphylococcus POSITIVE FOR Hospital aureus (MRSA) MRSA DNA [Presence] COLONIZATION in Unspecified specimen by Probe and target amplification method Methicillin MRSA TARGET White resistant DNA DETECTED [place] [facility] aureus (MRSA) DNA [Presence] in Unspecified specimen by Probe and target amplification method ID Date Data Source [id number] 12/06/2018 05:47:00 AM [facility] Value Range Interpretation Description Data Sup porting Code Source(s) Document(s ) Methicillin MRSA TARGET White resistant DNA DETECTED [place] [facility] aureus (MRSA) DNA [Presence] in Unspecified specimen by Probe and target amplification method Methicillin PATIENT IS White resistant PRESUMED [place] Staphylococcus POSITIVE FOR Hospital aureus (MRSA) MRSA DNA [Presence] COLONIZATION in Unspecified specimen by Probe and target amplification method ID Date Data Source [id number] 12/06/2018 05:04:00 AM [facility] THERAPEUTIC RANGES:UNFRACTIONATED HEPARI N THERAPY: 60-90 SECONDSARGATROBAN THERAPY: 49-99 SECONDS Name Value Range Interpretation Description Data Sup porting Code Source(s) Document(s ) aPTT in 31.7 s [facility] Platelet poor [facility] plasma by Coagulation assay ID Date Data Source [id number] 12/06/2018 05:04:00 AM [facility] THERAPEUTIC RANGE FOR STANDARD ORALANTIC OAGULANT THERAPY: 2.0-3.0THERAPEUTIC RANGE FOR HIGH DOSE ORALANTICOAGULANT THERAPY (MECHANICAL HEARTVALVE REPLACEMENT): 2.5-3.5 Name Value Range Interpretation Description Data Sup porting Code Source(s) Document(s ) INR in Platelet 1.3 [facility] poor plasma by Hospital Coagulation assay ID Date Data Source [id number] 12/06/2018 05:04:00 AM [facility] HEMOLYZED SPECIMEN- HEMOLYSIS CAUSES ELLEN RTENING OF PT AND APTT RESULTS Name Value Range Interpretation Description Data Sup porting Code Source(s) Document(s ) PT panel - 14.4 s [facility] Platelet poor [facility] plasma by Coagulation assay ID Date Data Source [id number] 11/25[facility]2018 [facility]52[facility] Name Value Range Interpretation Description Data Sup porting Code Source(s) Document(s ) Bacteria CORYNEBACTERIUM White identified SPECIES [place] in Wound by Hospital Culture Bacteria METHICILLIN RES White identified STAPH AUREUS [place] in Wound by Hospital Culture ID Date Data Source [id number] 11/25/2018 11:52:00 AM [facility] Name Value Range Interpretation Description Data Sup porting Code Source(s) Document(s ) GLUCOSE RN Notified [facility] ID Date Data Source [id number] 11/25/2018 11:52:00 AM EDT [facility] Child Care Associate Teacher:ANGELOMELINDA SOSA Name Value Range Interpretation Description Data Sup porting Code Source(s) Document(s ) Glucose 282 mg/dL [facility] [Mass/volume] Hospital in Capillary blood by Glucometer ID Date Data Source [id number] 11/24/2018 09:24:00 AM EDT [facility] Name Value Range Interpretation Description Data Sup porting Code Source(s) Document(s ) Calcium 8.7 mg/dL [facility] [Mass/volume Hospital ] in Serum or Plasma ID Date Data Source [id number] 11/24[facility] Interpret[facility] Code Description Data Jackie rce(s) Supporting Document(s ) Urea 11.7 [facility] nitrogen/Cre Hospital atinine [Mass Ratio] in Serum or Plasma ID Date Data Source [id number] 11/24/2018 [facility] Interpretation Description Data Sup porting Code Source(s) Document(s ) Creatinine 1.2 mg/dL [facility] [Mass/volume] Hospital in Serum or Plasma ID Date Data Source [id number] 11/24/2018 [facility]24:[facility] Name Value Range Interpretation Description Data Sup porting Code Source(s) Document(s ) Urea 14 mg/dL [facility] nitrogen Hospital [Mass/volume ] in Serum or Plasma ID Date Data Source [id number] 11/24/2018 [facility] Interpretation Code Description Data Jackie rce(s) Supporting Document(s ) Anion gap in 14 [facility] Serum or [facility] Plasma ID Date Data Source [id number] 11/24/2018 09:24:00 AM EDT [facility] Name Value Range Interpretation Description Data Sup porting Code Source(s) Document(s ) Carbon 24 mmol/L [facility] dioxide, Hospital total [Moles/volu me] in Serum or Plasma ID Date Data Source [id number] 11/24/2018 09:24:00 AM EDT [facility] Name Value Range Interpretation Description Data Sup porting Code Source(s) Document(s ) Chloride 105 [facility] [Moles/volum mmol/L Hospital e] in Serum or Plasma ID Date Data Source [id number] 11/24/2018 09:24:00 AM EDT [facility] Name Value Range Interpretation Description Data Sup porting Code Source(s) Document(s ) Potassium 4.7 [facility] [Moles/volume mmol/L Hospital ] in Serum or Plasma ID Date Data Source [id number] 11/24/2018 09:24:00 AM EDT [facility] Name Value Range Interpretation Description Data Sup porting Code Source(s) Document(s ) Sodium 138 mmol/L [facility] [Moles/volu Hospital me] in Serum or Plasma ID Date Data Source [id number] 11/24/2018 09:24:00 AM EDT [facility] Name Value Range Interpretation Description Data Sup porting Code Source(s) Document(s ) Glucose 200 mg/dL [facility] [Mass/volume Hospital ] in Serum or Plasma ID Date Data Source [id number] 11/24/2018 09:24:00 AM EDT [facility] Name Value Range Interpretation Description Data Sup porting Code Source(s) Document(s ) Differential AUTOMATED [facility] cell count Hospital method - Blood ID Date Data Source [id number] 11/24/2018 09:24:00 AM EDT [facility] Name Value Range Interpretation Description Data Sup porting Code Source(s) Document(s ) Immature 0.02 [facility] granulocytes 10*3/uL Hospital [#/volume] in Blood by Automated count ID Date Data Source [id number] 11/24/2018 09:24:00 AM EDT [facility] Value Range Interpretation Description Data Sup porting Code Source(s) Document(s ) Basophils 0.04 [facility] [#/volume] in 10*3/uL Hospital Blood by Automated count ID Date Data Source [id number] 11/24/2018 09:24:00 AM EDT [facility] Value Range Interpretation Description Data Sup porting Code Source(s) Document(s ) Eosinophils 0.49 [facility] [#/volume] in 10*3/uL Hospital Blood by Automated count ID Date Data Source [id number] 11/24/2018 09:24:00 AM EDT [facility] Value Range Interpretation Description Data Sup porting Code Source(s) Document(s ) Monocytes 0.71 [facility] [#/volume] in 10*3/uL Hospital Blood by Automated count ID Date Data Source [id number] 11/24/2018 09:24:00 AM EDT [facility] Value Range Interpretation Description Data Sup porting Code Source(s) Document(s ) Lymphocytes 3.02 [facility] [#/volume] in 10*3/uL Hospital Blood by Automated count ID Date Data Source [id number] 11/24/2018 09:24:00 AM EDT [facility] Name Value Range Interpretation Description Data Sup porting Code Source(s) Document(s ) Neutrophils 4.50 [facility] [#/volume] in 10*3/uL Hospital Blood by Automated count ID Date Data Source [id number] 11/24/2018 09:24:00 AM EDT [facility] Name Value Range Interpretation Description Data Sup porting Code Source(s) Document(s ) Nucleated 0.0 % [facility] erythrocytes/10 Hospital 0 leukocytes [Ratio] in Blood by Automated count ID Date Data Source [id number] 11/24/2018 09:24:00 AM EDT [facility] Value Range Interpretation Description Data Sup porting Code Source(s) Document(s ) Immature 0.2 % [facility] granulocytes/10 Hospital 0 leukocytes in Blood by Automated count ID Date Data Source [id number] 11/24/2018 09:24:00 AM EDT [facility] Value Range Interpretation Description Data Sup porting Code Source(s) Document(s ) Basophils/100 0.5 % [facility] leukocytes in Hospital Blood by Automated count ID Date Data Source [id number] 11/24/2018 09:24:00 AM EDT [facility] Value Range Interpretation Description Data Sup porting Code Source(s) Document(s ) Eosinophils/100 5.6 % [facility] leukocytes in Hospital Blood by Automated count ID Date Data Source [id number] 11/24/2018 09:24:00 AM EDT [facility] Value Range Interpretation Description Data Sup porting Code Source(s) Document(s ) Monocytes/100 8.1 % [facility] leukocytes in Hospital Blood by Automated count ID Date Data Source [id number] 11/24/2018 09:24:00 AM EDT [facility] Value Range Interpretation Description Data Sup porting Code Source(s) Document(s ) Lymphocytes/10 34.4 % [facility] 0 leukocytes Hospital in Blood by Automated count ID Date Data Source [id number] 11/24/2018 09:24:00 AM EDT [facility] Name Value Range Interpretation Description Data Sup porting Code Source(s) Document(s ) Neutrophils/10 51.2 % [facility] 0 leukocytes Hospital in Blood by Automated count ID Date Data Source [id number] 11/24/2018 09:24:00 AM EDT [facility] Name Value Range Interpretation Description Data Sup porting Code Source(s) Document(s ) Platelet mean 10.1 fL [facility] volume Hospital [Entitic volume] in Blood by Automated count ID Date Data Source [id number] 11/24/2018 09:24:00 AM [facility] Name Value Range Interpretation Description Data Sup porting Code Source(s) Document(s ) Platelets 397 [facility] [#/volume] in 10*3/uL Hospital Blood by Automated count ID Date Data Source [id number] 11/24/2018 09:24:00 AM [facility] Name Value Range Interpretation Description Data Sup porting Code Source(s) Document(s ) Erythrocyte 22.4 % [facility] Hospital width [Ratio] by Automated count ID Date Data Source [id number] 11/24/2018 09:24:00 AM [facility] Value Range Interpretation Description Data Sup porting Code Source(s) Document(s ) Erythrocyte mean 29.8 [facility] corpuscular g/dL Hospital hemoglobin concentration [Mass/volume] by Automated count ID Date Data Source [id number] 11/24/2018 09:24:00 AM [facility] Value Range Interpretation Description Data Sup porting Code Source(s) Document(s ) Erythrocyte 24.5 pg [facility] corpuscular hemoglobin [Entitic mass] by Automated count ID Date Data Source [id number] 11/24/2018 09:24:00 AM [facility] Value Range Interpretation Description Data Sup porting Code Source(s) Document(s ) Erythrocyte 82.1 fL [facility] mean Hospital corpuscular volume [Entitic volume] by Automated count ID Date Data Source [id number] 11/24/2018 09:24:00 AM [facility] Name Value Range Interpretation Description Data Sup porting Code Source(s) Document(s ) Hematocrit 26.2 % [facility] [Volume Hospital Fraction] of Blood by Automated count ID Date Data Source [id number] 11/24/2018 09:24:00 AM [facility] NOTIFICATION AND READ BACK OF CRITICAL R ESULTS TO Nimesh CRISOSTOMO RN AT 1018 ON 11/24/18 BY Callie Holt. Name Value Range Interpretation Description Data Sup porting Code Source(s) Document(s ) Hemoglobin 7.8 g/dL [facility] [Mass/volume] Hospital in Blood ID Date Data Source [id number] 11/24/2018 09:24:00 AM [facility] Name Value Range Interpretation Description Data Sup porting Code Source(s) Document(s ) Erythrocytes 3.19 [facility] [#/volume] in 10*6/uL Hospital Blood by Automated count ID Date Data Source [id number] 11/24/2018 09:24:00 AM [facility] Name Value Range Interpretation Description Data Sup porting Code Source(s) Document(s ) Leukocytes 8.8 [facility] [#/volume] in 10*3/uL Hospital Blood by Automated count ID Date Data Source [id number] 11/23/2018 08:58:00 AM [facility] NOTE: NEW REFERENCE RANGE, EFFECTIVE . Name Value Range Interpretation Description Data Sup porting Code Source(s) Document(s ) Vancomycin 13.7 [facility] [Mass/volume] ug/mL Hospital in Serum or Plasma --trough ID Date Data Source [id number] 11/23/2018 08:58:00 AM [facility] NOTE: NEW REFERENCE RANGE, EFFECTIVE . Name Value Range Interpretation Description Data Sup porting Code Source(s) Document(s ) Vancomycin 13.7 [facility] [Mass/volume] ug/mL Hospital in Serum or Plasma --trough ID Date Data Source [id number] 11/23/2018 07:15:00 AM [facility] Name Value Range Interpretation Description Data Sup porting Code Source(s) Document(s ) C reactive 21.0 mg/L [facility] protein Hospital [Mass/volume ] in Serum or Plasma ID Date Data Source [id number] 11/23/2018 07:15:00 AM [facility] Value Range Interpretation Description Data Sup porting Code Source(s) Document(s ) Erythrocyte 92 mm/h [facility] sedimentation Hospital rate by Westergren method ID Date Data Source [id number] 11/23/2018 07:15:00 AM [facility] Value Range Interpretation Description Data Sup porting Code Source(s) Document(s ) C reactive 21.0 mg/L [facility] protein Hospital [Mass/volume ] in Serum or Plasma ID Date Data Source [id number] 11/23/2018 07:15:00 AM [facility] Name Value Range Interpretation Description Data Sup porting Code Source(s) Document(s ) Aspartate 22 U/L [facility] aminotransferase [place] [Enzymatic Hospital activity/volume] in Serum or Plasma ID Date Data Source [id number] 11/23/2018 07:15:00 AM [facility] Value Range Interpretation Description Data Sup porting Code Source(s) Document(s ) Alanine 23 U/L [facility] aminotransferase [place] [Enzymatic Hospital activity/volume] in Serum or Plasma ID Date Data Source [id number] 11/23/2018 07:15:[facility] Name Value Range Interpretation Description Data Sup porting Code Source(s) Document(s ) Alkaline 120 U/L [facility] phosphatase [facility] [Enzymatic activity/volume ] in Serum or Plasma ID Date Data Source [id number] 11/23/2018 07:15:00 [facility] Name Value Range Interpretation Description Data Sup porting Code Source(s) Document(s ) Bilirubin.t 0.3 mg/dL [facility] [Mass/volum e] in Serum or Plasma ID Date Data Source [id number] 11/23/2018 07:15:00 AM [facility] Value Range Interpretation Code Description Data Jackie rce(s) Supporting Document(s ) [facility] in Serum or Plasma ID Date Data Source [id number] 11/23/2018 07:15:00 [facility] Name Value Range Interpretation Description Data Sup porting Code Source(s) Document(s ) Albumin 3.3 g/dL [facility] [Mass/volume Hospital ] in Serum or Plasma ID Date Data Source [id number] 11/23/2018 07:15:00 [facility] Name Value Range Interpretation Description Data Sup porting Code Source(s) Document(s ) Protein 6.5 g/dL [facility] [Mass/volume Hospital ] in Serum or Plasma ID Date Data Source [id number] 11/23/2018 07:15:00 [facility] Name Value Range Interpretation Description Data Sup porting Code Source(s) Document(s ) Erythrocyte 92 mm/h [facility] sedimentation Hospital rate by Westergren method ID Date Data Source [id number] 11/22/2018 06:30:00 AM EDT [facility] Name Value Range Interpretation Description Data Sup porting Code Source(s) Document(s ) GLUCOSE Pre Meal [facility] COMMENT2 Hospital ID Date Data Source [id number] 11/17/2018 09:13:00 AM EDT [facility] Name Value Range Interpretation Code Description Data Supporting Source(s) Document(s ) NUCLEATED RBCS 0.0 % [facility] (AUTO Hospital DIFF%)DIS ID Date Data Source [id number] 11/14[facility] Interpret[facility] Description Data Sup porting Code Source(s) Document(s ) Hyaline casts 0-5/LPF [facility] [#/area] in Hospital Urine sediment by Microscopy low power field ID Date Data Source [id number] 11/14/2018 07:31:00 [facility] Name Value Range Interpretation Description Data Sup porting Code Source(s) Document(s ) Epithelial OCCASIONAL [facility] cells.[facility] s [#/area] in Urine sediment by Microscopy high power field ID Date Data Source [id number] 11/14/2018 07:31:00 PM [facility] Name Value Range Interpretation Description Data Sup porting Code Source(s) Document(s ) Hyaline casts 0-5/LPF [facility] [#/area] in Hospital Urine sediment by Microscopy low power field ID Date Data Source [id number] 11/14/2018 07:31:00 [facility] Name Value Range Interpretation Description Data Sup porting Code Source(s) Document(s ) Epithelial OCCASIONAL [facility] cells.[facility] s [#/area] in Urine sediment by Microscopy high power field ID Date Data Source [id number] 11/14/2018 07:31:00 PM EDT [facility] Name Value Range Interpretation Description Data Sup porting Code Source(s) Document(s ) Erythrocytes 3-5 [facility] [#/area] in /[HPF] Hospital Urine sediment by Microscopy high power field ID Date Data Source [id number] 11/14/2018 07:31:00 PM EDT [facility] Name Value Range Interpretation Description Data Sup porting Code Source(s) Document(s ) Leukocytes 0-3 [facility] [#/area] in /[HPF] Hospital Urine sediment by Microscopy high power field ID Date Data Source [id number] 11/14/2018 07:31:00 PM EDT [facility] Value Range Interpretation Description Data Sup porting Code Source(s) Document(s ) Leukocyte NEGATIVE [facility] esterase Hospital [Presence] in Urine by Test strip ID Date Data Source [id number] 11/14/2018 [facility] Interpretation Description Data Sup porting Code Source(s) Document(s ) URINE NEGATIVE [facility] Hospital ID Date Data Source [id number] 11/14/2018 [facility] Interpretation Description Data Sup porting Code Source(s) Document(s ) Erythrocytes TRACE [facility] [#/volume] in Hospital Urine by Test strip ID Date Data Source [id number] 11/14/2018 [facility]:31[facility] Interpretation Code Description Data Jackie rce(s) Supporting Document(s ) Bilirubin. NEGATIVE [facility] total Hospital [Presence] in Urine by Test strip ID Date Data Source [id number] 11/14/2018 07:31:00 PM EDT [facility] Name Value Range Interpretation Description Data Sup porting Code Source(s) Document(s ) Urobilinogen 0.2 [facility] [Units/volume] mg/dL Hospital in Urine by Test strip ID Date Data Source [id number] 11/14/2018 07:31:00 PM EDT [facility] Name Value Range Interpretation Description Data Sup porting Code Source(s) Document(s ) Ketones NEGATIVE [facility] [Mass/volume Hospital ] in Urine by Test strip ID Date Data Source [id number] 11/14/2018 07:31:00 PM EDT [facility] Name Value Range Interpretation Code Description Data Jackie rce(s) Supporting Document(s ) Glucose 2+ [facility] [Mass/volume Hospital ] in Urine by Test strip ID Date Data Source [id number] 11/14/2018 07:31:00 PM EDT [facility] Value Range Interpretation Code Description Data Jackie rce(s) Supporting Document(s ) Protein 2+ [facility] [Presence] Hospital in Urine by Test strip ID Date Data Source [id number] 11/14/2018 07:31:00 [facility] Name Value Range Interpretation Code Description Data Jackie rce(s) Supporting Document(s ) pH of Urine 8.5 [facility] by Test Hospital strip ID Date Data Source [id number] 11/14/2018 07:31:00 PM [facility] Value Range Interpretation Code Description Data Supporting Source(s) Document(s ) Specific 1.018 [facility] gravity of Hospital Urine by Test strip ID Date Data Source [id number] 11/14/2018 07:31:00 PM [facility] Value Range Interpretation Description Data Sup porting Code Source(s) Document(s ) Clarity in Urine CLEAR [facility] by Refractometry Hospital automated ID Date Data Source [id number] 11/14/2018 07:31:00 PM EDT [facility] Name Value Range Interpretation Code Description Data Jackie rce(s) Supporting Document(s ) Color of YELLOW [facility] Urine Hospital ID Date Data Source [id number] 11/14/2018 05:57:00 PM EDT [facility] Name Value Range Interpretation Description Data Sup porting Code Source(s) Document(s ) Lactate 1.2 [facility] [Moles/volum mmol/L Hospital e] in Serum or Plasma ID Date Data Source [id number] 11/14/2018 03:23:00 PM EDT [facility] Name Value Range Interpretation Code Description Data Jackie rce(s) Supporting Document(s ) Lipase 21 U/L [facility] [Enzymatic Hospital activity/vo lume] in Serum or Plasma ID Date Data Source [id number] 11/14/2018 03:23:00 PM [facility] THERAPEUTIC RANGE FOR STANDARD ORALANTIC OAGULANT THERAPY: 2.0-3.0THERAPEUTIC RANGE FOR HIGH DOSE ORALANTICOAGULANT THERAPY (MECHANICAL HEARTVALVE REPLACEMENT): 2.5-3.5 Name Value Range Interpretation Description Data Sup porting Code Source(s) Document(s ) INR in Platelet 1.2 [facility] poor plasma by Hospital Coagulation assay ID Date Data Source [id number] [facility] Name Value Range Interpretation Description Data Sup porting Code Source(s) Document(s ) PT panel - 13.9 s [facility] Platelet poor [facility] plasma by Coagulation assay ID Date Data Source [id number] 11/11/2018 12:15:00 PM [facility] Child Care Associate Teacher: ANASTASIIA GONG Name Value Range Interpretation Description Data Sup porting Code Source(s) Document(s ) Glucose 215 mg/dL [facility] [Mass/volume] Hospital in Capillary blood by Glucometer ID Date Data Source [id number] 11/11/2018 05:31:00 AM EDT [facility] Value Range Interpretation Code Description Data Supporting Source(s) Document(s ) NUCLEATED RBCS 0.0 % [facility] (AUTO Hospital DIFF%)DIS ID Date Data Source [id number] 11/11/2018 05:31:00 AM EDT [facility] Value Range Interpretation Description Data Sup porting Code Source(s) Document(s ) Differential AUTOMATED [facility] cell count Hospital method - Blood ID Date Data Source [id number] 11/11/2018 05:31:00 AM EDT [facility] Value Range Interpretation Description Data Sup porting Code Source(s) Document(s ) Immature 0.06 [facility] granulocytes 10*3/uL Hospital [#/volume] in Blood by Automated count ID Date Data Source [id number] 11/11/2018 05:31:00 AM EDT [facility] Value Range Interpretation Description Data Sup porting Code Source(s) Document(s ) Basophils 0.04 [facility] [#/volume] in 10*3/uL Hospital Blood by Automated count ID Date Data Source [id number] 11/11/2018 05:31:00 AM EDT [facility] Name Value Range Interpretation Description Data Sup porting Code Source(s) Document(s ) Eosinophils 0.26 [facility] [#/volume] in 10*3/uL Hospital Blood by Automated count ID Date Data Source [id number] 11/11/2018 05:31:00 AM EDT [facility] Name Value Range Interpretation Description Data Sup porting Code Source(s) Document(s ) Monocytes 1.06 [facility] [#/volume] in 10*3/uL Hospital Blood by Automated count ID Date Data Source [id number] 11/11/2018 05:31:00 AM EDT [facility] Value Range Interpretation Description Data Sup porting Code Source(s) Document(s ) Lymphocytes 2.95 [facility] [#/volume] in 10*3/uL Hospital Blood by Automated count ID Date Data Source [id number] 11/11/2018 05:31:00 AM EDT [facility] Value Range Interpretation Description Data Sup porting Code Source(s) Document(s ) Neutrophils 5.77 [facility] [#/volume] in 10*3/uL Hospital Blood by Automated count ID Date Data Source [id number] 11/11/2018 05:31:00 AM EDT [facility] Value Range Interpretation Description Data Sup porting Code Source(s) Document(s ) Nucleated 0.0 % [facility] erythrocytes/10 Hospital 0 leukocytes [Ratio] in Blood by Automated count ID Date Data Source [id number] 11/11/2018 05:31:00 AM EDT [facility] Value Range Interpretation Description Data Sup porting Code Source(s) Document(s ) Immature 0.6 % [facility] granulocytes/10 Hospital 0 leukocytes in Blood by Automated count ID Date Data Source [id number] 11/11/2018 05:31:00 AM EDT [facility] Value Range Interpretation Description Data Sup porting Code Source(s) Document(s ) Basophils/100 0.4 % [facility] leukocytes in Hospital Blood by Automated count ID Date Data Source [id number] 11/11/2018 05:31:00 AM EDT [facility] Value Range Interpretation Description Data Sup porting Code Source(s) Document(s ) Eosinophils/100 2.6 % [facility] leukocytes in Hospital Blood by Automated count ID Date Data Source [id number] 11/11/2018 05:31:00 AM EDT [facility] Name Value Range Interpretation Description Data Sup porting Code Source(s) Document(s ) Monocytes/100 10.5 % [facility] leukocytes in Hospital Blood by Automated count ID Date Data Source [id number] 11/11/2018 05:31:00 AM EDT [facility] Name Value Range Interpretation Description Data Sup porting Code Source(s) Document(s ) Lymphocytes/10 29.1 % [facility] 0 leukocytes Hospital in Blood by Automated count ID Date Data Source [id number] 11/11/2018 05:31:00 AM EDT [facility] Value Range Interpretation Description Data Sup porting Code Source(s) Document(s ) Neutrophils/10 56.8 % [facility] 0 leukocytes Hospital in Blood by Automated count ID Date Data Source [id number] 11/11/2018 05:31:00 AM EDT [facility] Name Value Range Interpretation Description Data Sup porting Code Source(s) Document(s ) Platelet mean 10.5 fL [facility] volume Hospital [Entitic volume] in Blood by Automated count ID Date Data Source [id number] [facility] Description Data Sup porting Code Source(s) Document(s ) Platelets 334 [facility] [#/volume] in 10*3/uL Hospital Blood by Automated count ID Date Data Source [id number] 11/11/2018 05:31:00 AM EDT [facility] Value Range Interpretation Description Data Sup porting Code Source(s) Document(s ) Erythrocyte 21.2 % [facility] distribution Hospital width [Ratio] by Automated count ID Date Data Source [id number] 11/11/2018 05:31:00 AM EDT [facility] Name Value Range Interpretation Description Data Sup porting Code Source(s) Document(s ) Erythrocyte mean 31.2 [facility] corpuscular g/dL Hospital hemoglobin concentration [Mass/volume] by Automated count ID Date Data Source [id number] 11/11/2018 05:31:00 AM [facility] Name Value Range Interpretation Description Data Sup porting Code Source(s) Document(s ) Erythrocyte 24.4 pg [facility] corpuscular hemoglobin [Entitic mass] by Automated count ID Date Data Source [id number] 11/11/2018 05:31:00 AM [facility] Name Value Range Interpretation Description Data Sup porting Code Source(s) Document(s ) Erythrocyte 78.3 fL [facility] corpuscular volume [Entitic volume] by Automated count ID Date Data Source [id number] 11/11/2018 05:31:00 AM [facility] NOTIFICATION AND READ BACK OF CRITICAL R ESULTS TO ANTOINE MARISCAL RN IN 5F AT 0605 ON 11/11/18 BY Radha Kaufman. Name Value Range Interpretation Description Data Sup porting Code Source(s) Document(s ) Hematocrit 23.1 % [facility] [Volume Hospital Fraction] of Blood by Automated count ID Date Data Source [id number] 11/11/2018 05:31:00 AM [facility] NOTIFICATION AND READ BACK OF CRITICAL R ESULTS TO ANTOINE MARISCAL RN IN 5F AT 0605 ON 11/11/18 BY Radha Kaufman. Name Value Range Interpretation Description Data Sup porting Code Source(s) Document(s ) Hemoglobin 7.2 g/dL [facility] [Mass/volume] Hospital in Blood ID Date Data Source [id number] 11/11/2018 05:31:00 AM [facility] Name Value Range Interpretation Description Data Sup porting Code Source(s) Document(s ) Erythrocytes 2.95 [facility] [#/volume] in 10*6/uL Hospital Blood by Automated count ID Date Data Source [id number] 11/11/2018 05:31:00 AM EDT [facility] Name Value Range Interpretation Description Data Sup porting Code Source(s) Document(s ) Leukocytes 10.1 [facility] [#/volume] in 10*3/uL Hospital Blood by Automated count ID Date Data Source [id number] 11/10/2018 06:04:00 AM EDT [facility] Name Value Range Interpretation Description Data Sup porting Code Source(s) Document(s ) Ferritin 130.0 [facility] [Mass/volume ng/mL Hospital ] in Serum or Plasma ID Date Data Source [id number] 11/10/2018 06:04:00 AM EDT [facility] Name Value Range Interpretation Description Data Sup porting Code Source(s) Document(s ) Folate 10.2 ng/mL [facility] [Mass/volum Hospital e] in Serum or Plasma ID Date Data Source [id number] 11/10/2018 06:04:00 AM EDT [facility] Value Range Interpretation Description Data Sup porting Code Source(s) Document(s ) Cobalamin 612 pg/mL [facility] (Vitamin B12) Hospital [Mass/volume] in Serum or Plasma ID Date Data Source [id number] 11/10/2018 06:04:00 AM EDT [facility] Name Value Range Interpretation Description Data Sup porting Code Source(s) Document(s ) Iron saturation 21 % [facility] [Mass Fraction] Hospital in Serum or Plasma ID Date Data Source [id number] 11/10/2018 06:04:00 AM EDT [facility] Name Value Range Interpretation Description Data Sup porting Code Source(s) Document(s ) UNSAT IRON 192 ug/dL [facility] CAPACITY ID Date Data Source [id number] 11/10/2018 06:04:00 AM EDT [facility] Name Value Range Interpretation Description Data Sup porting Code Source(s) Document(s ) Iron binding 245 ug/dL [facility] [Mass/volume ] in Serum or Plasma ID Date Data Source [id number] 11/10/2018 06:04:00 AM EDT [facility] Value Range Interpretation Code Description Data Supporting Source(s) Document(s ) Iron 53 ug/dL [facility] [Mass/volum Hospital e] in Serum or Plasma ID Date Data Source [id number] 11/10/2018 06:04:00 AM [facility] Value Range Interpretation Description Data Sup porting Code Source(s) Document(s ) Lactate 134 U/L [facility] [Enzymatic activity/volume] in Serum or Plasma ID Date Data Source [id number] 11/10/2018 06:04:00 AM EDT [facility] Name Value Range Interpretation Description Data Sup porting Code Source(s) Document(s ) Ferritin 130.0 [facility] [Mass/volume ng/mL Hospital ] in Serum or Plasma ID Date Data Source [id number] 11/10/2018 06:04:00 AM EDT [facility] Name Value Range Interpretation Description Data Sup porting Code Source(s) Document(s ) Folate 10.2 ng/mL [facility] [Mass/volum Hospital e] in Serum or Plasma ID Date Data Source [id number] 11/10/2018 [facility]04[facility] Name Value Range Interpretation Description Data Sup porting Code Source(s) Document(s ) Cobalamin 612 pg/mL [facility] (Vitamin B12) Hospital [Mass/volume] in Serum or Plasma ID Date Data Source [id number] 11/10/2018 06:04:00 AM EDT [facility] Name Value Range Interpretation Description Data Sup porting Code Source(s) Document(s ) Iron saturation 21 % [facility] [Mass Fraction] Hospital in Serum or Plasma ID Date Data Source [id number] 11/10/2018 06:04:00 AM EDT [facility] Name Value Range Interpretation Description Data Sup porting Code Source(s) Document(s ) UNSAT IRON 192 ug/dL [facility] CAPACITY ID Date Data Source [id number] 11/10/2018 06:04:00 AM EDT [facility] Value Range Interpretation Description Data Sup porting Code Source(s) Document(s ) Iron binding 245 ug/dL [facility] capacity [facility] [Mass/volume ] in Serum or Plasma ID Date Data Source [id number] 11/10/2018 06:04:00 AM EDT [facility] Name Value Range Interpretation Code Description Data Supporting Source(s) Document(s ) Iron 53 ug/dL [facility] [Mass/volum Hospital e] in Serum or Plasma ID Date Data Source [id number] 11/10/2018 06:04:00 AM EDT [facility] Name Value Range Interpretation Description Data Sup porting Code Source(s) Document(s ) Lactate 134 U/L [facility] dehydrogenase Hospital [Enzymatic activity/volume] in Serum or Plasma ID Date Data Source [id number] 11/10/2018 06:04:00 AM EDT [facility] Name Value Range Interpretation Description Data Sup porting Code Source(s) Document(s ) Aspartate 16 U/L [facility] aminotransferase [place] [Enzymatic Hospital activity/volume] in Serum or Plasma ID Date Data Source [id number] 11/10/2018 06:04:00 AM EDT [facility] Name Value Range Interpretation Description Data Sup porting Code Source(s) Document(s ) Alanine 13 U/L [place] aminotransferase [place] [Enzymatic Hospital activity/volume] in Serum or Plasma ID Date Data Source [id number] 11/10/2018 06:04:00 AM EDT [facility] Name Value Range Interpretation Description Data Sup porting Code Source(s) Document(s ) Alkaline 108 U/L [facility] phosphatase Hospital [Enzymatic activity/volume ] in Serum or Plasma ID Date Data Source [id number] 11/10/2018 06:04:00 AM EDT [facility] Name Value Range Interpretation Description Data Sup porting Code Source(s) Document(s ) Bilirubin.t 0.3 mg/dL [facility] [Mass/volum e] in Serum or Plasma ID Date Data Source [id number] 11/10/2018 06:04:00 AM EDT [facility] Name Value Range Interpretation Code Description Data Jackie rce(s) Supporting Document(s ) [facility]9 [facility] in Serum or Plasma ID Date Data Source [id number] 11/10/2018 06:04:00 AM EDT [facility] Name Value Range Interpretation Description Data Sup porting Code Source(s) Document(s ) Albumin 2.9 g/dL [facility] [Mass/volume Hospital ] in Serum or Plasma ID Date Data Source [id number] 11/10/2018 [facility]04[facility] Name Value Range Interpretation Description Data Sup porting Code Source(s) Document(s ) Protein 6.1 g/dL [facility] [Mass/volume Hospital ] in Serum or Plasma ID Date Data Source [id number] 11/10/2018 06:04:00 AM EDT [facility] Name Value Range Interpretation Description Data Sup porting Code Source(s) Document(s ) Calcium 8.3 mg/dL [facility] [Mass/volume Hospital ] in Serum or Plasma ID Date Data Source [id number] 11/10/2018 06:04:00 AM EDT [facility] Name Value Range Interpretation Code Description Data Jackie rce(s) Supporting Document(s ) Urea 26.7 [facility] nitrogen/Cre Hospital atinine [Mass Ratio] in Serum or Plasma ID Date Data Source [id number] 11/10/2018 06:04:00 AM EDT [facility] Name Value Range Interpretation Description Data Sup porting Code Source(s) Document(s ) Creatinine 0.9 mg/dL [facility] [Mass/volume] Hospital in Serum or Plasma ID Date Data Source [id number] 11/10/2018 06:04:00 AM EDT [facility] Name Value Range Interpretation Description Data Sup porting Code Source(s) Document(s ) Urea 24 mg/dL [facility] nitrogen Hospital [Mass/volume ] in Serum or Plasma ID Date Data Source [id number] 11/10/2018 06:04:00 AM EDT [facility] Value Range Interpretation Code Description Data Jackie rce(s) Supporting Document(s ) Anion gap in 13 [facility] Serum or Hospital Plasma ID Date Data Source [id number] 11/10/2018 06:04:00 AM EDT [facility] Name Value Range Interpretation Description Data Sup porting Code Source(s) Document(s ) Carbon 30 mmol/L [facility] dioxide, Hospital total [Moles/volu me] in Serum or Plasma ID Date Data Source [id number] 11/10/2018 06:04:00 AM EDT [facility] Name Value Range Interpretation Description Data Sup porting Code Source(s) Document(s ) Chloride 96 mmol/L [facility] [Moles/volum Hospital e] in Serum or Plasma ID Date Data Source [id number] 11/10/2018 06:04:00 AM [facility] Value Range Interpretation Description Data Sup porting Code Source(s) Document(s ) Potassium 3.7 [facility] [Moles/volume mmol/L Hospital ] in Serum or Plasma ID Date Data Source [id number] 11/10/2018 06:04:00 AM [facility] Name Value Range Interpretation Description Data Sup porting Code Source(s) Document(s ) Sodium 135 mmol/L [facility] [Moles/volu Hospital me] in Serum or Plasma ID Date Data Source [id number] 11/10/2018 06:04:00 AM [facility] Value Range Interpretation Description Data Sup porting Code Source(s) Document(s ) Glucose 163 mg/dL [facility] [Mass/volume Hospital ] in Serum or Plasma ID Date Data Source [id number] 11/06/2018 05:28:00 PM [facility] Name Value Range Interpretation Description Data Sup porting Code Source(s) Document(s ) Lactate 0.8 [facility] [Moles/volum mmol/L Hospital e] in Serum or Plasma ID Date Data Source [id number] 11/06/2018 02:18:00 PM [facility] Name Value Range Interpretation Description Data Sup porting Code Source(s) Document(s ) Bacteria No growth [facility] identified in Hospital Blood by Culture ID Date Data Source [id number] 11/06/2018 02:18:00 PM [facility] ADA RECOMMENDATIONS: NON-DIABETES: 4.0-6.0% CONTROLLED DIABETES: 6.0-8.0% UNCONTROLLED DIABETE S: UP TO 20%RECOMMENDED ADA RESULT FOR THERAPY: HEMOGLOBIN A1C RESULT LESS FRANK N 7%.NOTE: METHOD CHANGE EFFECTIVE 11/06/14. Name Value Range Interpretation Description Data Sup porting Code Source(s) Document(s ) Hemoglobin 9.1 % [facility] A1c/Hemoglobin. Hospital total in Blood ID Date Data Source [id number] 11/06/2018 02:18:00 PM [facility] THERAPEUTIC RANGES:UNFRACTIONATED HEPARI N THERAPY: 60-90 SECONDSARGATROBAN THERAPY: 49-99 SECONDS Name Value Range Interpretation Description Data Sup porting Code Source(s) Document(s ) aPTT in 28.4 s [facility] Platelet poor [facility] plasma by Coagulation assay ID Date Data Source [id number] 11/06/2018 02:18:00 PM [facility] Name Value Range Interpretation Description Data Sup porting Code Source(s) Document(s ) Bacteria No growth [facility] identified in Hospital Blood by Culture ID Date Data Source [id number] 11/06/2018 02:18:00 PM [facility] Name Value Range Interpretation Description Data Sup porting Code Source(s) Document(s ) C reactive 10.1 mg/L [facility] [Mass/volume ] in Serum or Plasma ID Date Data Source [id number] 11/06/2018 02:18:00 PM [facility] ADA RECOMMENDATIONS: NON-DIABETES: 4.0-6.0% CONTROLLED DIABETES: 6.0-8.0% UNCONTROLLED DIABETE S: UP TO 20%RECOMMENDED ADA RESULT FOR THERAPY: HEMOGLOBIN A1C RESULT LESS FRANK N 7%.NOTE: METHOD CHANGE EFFECTIVE 11/06/14. Name Value Range Interpretation Description Data Sup porting Code Source(s) Document(s ) Hemoglobin 9.1 % [facility] A1c/Hemoglobin. Hospital total in Blood ID Date Data Source [id number] 11/06/2018 02:18:00 PM [facility] THERAPEUTIC RANGES:UNFRACTIONATED HEPARI N THERAPY: 60-90 SECONDSARGATROBAN THERAPY: 49-99 SECONDS Name Value Range Interpretation Description Data Sup porting Code Source(s) Document(s ) aPTT in 28.4 s [facility] Platelet poor [facility] plasma by Coagulation assay ID Date Data Source [id number] 11/06/2018 02:18:00 PM [facility] THERAPEUTIC RANGE FOR STANDARD ORALANTIC OAGULANT THERAPY: 2.0-3.0THERAPEUTIC RANGE FOR HIGH DOSE ORALANTICOAGULANT THERAPY (MECHANICAL HEARTVALVE REPLACEMENT): 2.5-3.5 Name Value Range Interpretation Description Data Sup porting Code Source(s) Document(s ) INR in Platelet 1.2 [facility] poor plasma by Hospital Coagulation assay ID Date Data Source [id number] 11/06/2018 02:18:00 PM EDT [facility] Name Value Range Interpretation Description Data Sup porting Code Source(s) Document(s ) PT panel - 13.6 s [facility] Platelet poor [facility] plasma by Coagulation assay ID Date Data Source [id number] 11/06/2018 [facility]18[facility] Name Value Range Interpretation Description Data Sup porting Code Source(s) Document(s ) Erythrocyte > 130 [facility] sedimentation mm/h Hospital rate by Westergren method Procedure Social History Code Duration Value Status Description Data Source(s ) Smoking 06/23/2019 Never smoked completed Never smoked Danneille Lam [facility] - 12:46:08 AM EDT tobacco tobacco (finding) [facility] (finding[facility] Smoking 06/23/2019 Never smoked completed Never smoked Dannielle Lam alth - 12:46:08 AM EDT tobacco tobacco (finding) [facility] (finding[facility] Smoking 06/23/2019 Never smoked completed Never smoked Dannielle Lam alth - 12:46:08 AM EDT tobacco tobacco (finding) [facility] (finding[facility] Smoking 06/04/2019 Never smoked completed Never smoked Dannielle Lam alth - 08:41:21 PM EST tobacco tobacco (finding) [facility] (finding[facility] Smoking 06/04/2019 Never smoked completed Never smoked [place] He alth - 08:41:21 PM EST tobacco tobacco (finding) [facility] (finding[facility] Smoking 06/04/2019 Never smoked completed Never smoked Dannielle Lam alth - 08:41:21 PM EST tobacco tobacco (finding) [facility] (finding[facility] Smoking 06/04/2019 Never smoked completed Never smoked Nueloy He alth - 08:41:21 PM EST tobacco tobacco (finding) [facility] (finding[facility] Smoking 06/04/2019 Never smoked completed Never smoked Nueloy He alth - 08:41:21 PM EST tobacco tobacco (finding) [facility] (finding[facility] Smoking 06/04/2019 Never smoked completed Never smoked Nueloy He alth - 08:41:21 PM EST tobacco tobacco (finding) [facility] (finding) Center Smoking 06/04/2019 Never smoked completed [...] Above high normal 20 [place] rate [facility] Heart rate 81 0 - 999 Normal (applies to 81 [place] non-numeric Health System results) Oxygen 99 % 0 - 999 Normal (applies to 99 % [facility] iore saturation in non-numeric Health Sys tem Arterial blood results) by Pulse oximetry Body surface 2.3 m2 2.3 m2 [facility] area Derived Health Syste m from formula Body mass index 27.7 kg/m2 27.7 kg/m2 [facility] e (BMI) [Ratio] Health Syst em Body weight 103.41 kg 103.41 kg [facility] Body height 193.04 cm 193.04 cm [facility] Glucose 244 mg/dL 65-100 Above high normal 244 mg/dL [place] [Moles/volume] mg/dL Health - in Capillary [place] blood by [facility] Oxygen 98 % 94-100 % Normal (applies to 98 % [place] saturation in non-numeric Health - Blood results) [place] Postductal by [facility] Pulse oximetry Center Diastolic blood 68 mm[Hg] 60-90 Normal (applies to 68 mm[Hg] N uvance pressure mmHg non-numeric Health - results) [facility] Systolic blood 120 mm[Hg] 90-130 Normal (applies to 120 mm[Hg] Nu lyons pressure mmHg non-numeric Health - results) [facility] Vital Signs Dr. Cl Spicer Reported To [facility] Oxygen therapy [place] [Minimum Data Health - Set] [facility] Mean blood 133 mm[Hg] 133 mm[Hg] [place] pressure by Health - Noninvasive [facility] Oxygen 99 % 94-100 % Normal (applies to 99 % [place] saturation in non-numeric Health - Blood results) [place] Postductal by [facility] Pulse oxim[facility] Diastolic blood 106 mm[Hg] 60-90 106 mm[Hg] [place] pressure mmHg [facility] Systolic blood 186 mm[Hg] 90-130 186 mm[Hg] [place] pressure mmHg [facility] Respiratory 18 br/min 14-20 Normal (applies to 18 br/min [place] rate br/min non-numeric Health - results) [facility] Heart rate 98 bpm 60-100 Normal (applies to 98 bpm [place] bpm non-numeric Health - results) [facility] Oral 97.1 [degF] 96.4-99.1 Normal (applies to 97.1 [degF] Nuva nce temperature DegF non-numeric Health - results) [facility] Glucose 178 mg/dL 65-100 Above high normal 178 mg/dL [place] [Moles/volume] mg/dL Health - in Capillary [place] blood by [facility] Glucose 178 mg/dL 65-100 Above high normal 178 mg/dL [place] [Moles/volume] mg/dL Health - in Capillary [place] blood by [facility] Glucometer [place] Respiratory 18 br/min 14-20 Normal (applies to 18 br/min [place] rate br/min non-numeric Health - results) [facility] Oral 98.2 [degF] 96.4-99.1 Normal (applies to 98.2 [degF] Nuva nce temperature DegF non-numeric Health - results) [facility] Oxygen 99 % 94-100 % Normal (applies to 99 % [place] saturation in non-numeric Health - Blood results) [place] Postductal by [facility] P[facility] Heart rate 97 bpm 60-100 Normal (applies to 97 bpm [place] bpm non-numeric Health - results) [facility] Mean blood 123 mm[Hg] 123 mm[Hg] [place] pressure by Health - Noninvasive [facility] Diastolic blood 94 mm[Hg] 60-90 94 mm[Hg] [place] pressure mmHg [facility] Systolic blood 180 mm[Hg] 90-130 Above high normal 180 mm[Hg] Nuv ance pressure mmHg [facility] Mean blood 125 mm[Hg] 125 mm[Hg] [place] pressure by Health Noninvasive [facility] Oxygen therapy [place] [Minimum Data Health - Set] [facility] Blood pressure [place] measurement Health - site [facility] Respiratory 18 br/min 14-20 Normal (applies to 18 br/min [place] ce rate br/min non-numeric Health - results) [facility] Heart rate 103 bpm 60-100 Above high normal 103 bpm [place] bpm [facility] Oral 98.7 [degF] 96.4-99.1 Normal (applies to 98.7 [degF] Nuva nce temperature DegF non-numeric Health - results) [facility] Oxygen Therapy [place] Activity [facility] Oxygen therapy [place] [Minimum Data Health - Set] [facility] Body mass index 27.38 kg/m2 27.38 kg/m2 [place] (BMI) [Ratio] [facility] Body weight 102 kg 102 kg [place] Measured [facility] Body height 193 cm 193 cm [place] [facility] Body mass index 27.38 kg/m2 27.38 kg/m2 [place] (BMI) [Ratio] [facility] Glucose 279 mg/dL 65-100 Above high normal 279 mg/dL [place] [Moles/volume] mg/dL Health - in Capillary [place] blood by [facility] Glucometer [place] Oxygen therapy [place] [Minimum Data Health - Set] [facility] Mean blood 110 mm[Hg] 110 mm[Hg] [place] pressure by Health - Noninvasive [facility] Oxygen therapy [place] [Minimum Data Health - Set] [facility] Blood pressure [place] measurement [facility] Diastolic blood 83 mm[Hg] 60-90 Normal (applies to 83 mm[Hg] N uvance pressure mmHg non-numeric Health - results) [facility] Systolic blood 165 mm[Hg] 90-130 Above high normal 165 mm[Hg] Nuv an[place] pressure mmHg [facility] Respiratory 18 br/min 14-20 Normal (applies to 18 br/min [place] rate br/min non-numeric Health - results) [facility] Heart rate 64 bpm 60-100 Normal (applies to 64 bpm [place] bpm non-numeric Health - results) [facility] Oral 98.6 [degF] 96.4-99.1 Normal (applies to 98.6 [degF] Nuva nce temperature DegF non-numeric Health - results) [facility] Glucose 130 mg/dL 65-100 Above high normal 130 mg/dL [place] [Moles/volume] mg/dL Health - in Capillary [place] blood by [facility] Glucose 130 mg/dL 65-100 Above high normal 130 mg/dL [place] [Moles/volume] mg/dL Health - in Capillary [place] blood by [facility] Glucometer [place] Respiratory 18 br/min 14-20 Normal (applies to 18 br/min [place] ce rate br/min non-numeric Health - results) [facility] Oral 98.2 [degF] 96.4-99.1 Normal (applies to 98.2 [degF] Nuva nce temperature DegF non-numeric Health - results) [facility] Oxygen 99 % 94-100 % Normal (applies to 99 % [place] e saturation in non-numeric Health - Blood results) [place] Postductal by [facility] Pulse oxim[facility] Heart rate 60 bpm 60-100 Normal (applies to 60 bpm [place] e bpm non-numeric Health - results) [facility] Mean blood 92 mm[Hg] 92 mm[Hg] [place] pressure by Health - Noninvasive [facility] Diastolic blood 75 mm[Hg] 60-90 Normal (applies to 75 mm[Hg] N uvance pressure mmHg non-numeric Health - results) [facility] Systolic blood 125 mm[Hg] 90-130 Normal (applies to 125 mm[Hg] Nu lyons pressure mmHg non-numeric Health - results) [facility] Blood pressure [place] measurement Health - site [facility] Oxygen therapy [place] [Minimum Data Health - Set] [facility] Diastolic blood 84 mm[Hg] 60-90 Normal (applies to 84 mm[Hg] N uvance pressure mmHg non-numeric Health - results) [facility] Systolic blood 154 mm[Hg] 90-130 Above high normal 154 mm[Hg] Nuv ance pressure mmHg Health - [facility] Mean blood 92 mm[Hg] 92 mm[Hg] [place] pressure by Health - Noninvasive [facility] Oxygen 99 % 94-100 % Normal (applies to 99 % [place] e saturation in non-numeric Health - Blood results) [place] Postductal by [facility] Pulse [facility]xim[facility] Respiratory 18 br/min 14-20 Normal (applies to 18 br/min [place] ce rate br/min non-numeric Health - results) [facility] Heart rate 74 bpm 60-100 Normal (applies to 74 bpm [place] e bpm non-numeric Health - results) [facility] Oral 99.3 [degF] 96.4-99.1 Above high normal 99.3 [degF] Nuvan ce temperature DegF [facility] Oxygen 98 % 94-100 % Normal (applies to 98 % [place] e saturation in non-numeric Health - Blood results) [place] Postductal by [facility] Pulse o[facility] Vital Signs Dr. Haile. Dr. Haile. Dannielle Reported To Additional dose Additional dose Hea lth - of Hydrazaline of Hydrazaline [place] 25mg po ordered 25mg po ordered [facility] Blood pressure [place] measurement [facility] Vital Signs PA Cort[place] Parchen PA [place] Parchen Nu[place] ce Reported To [facility] Body mass index 27.79 kg/m2 27.79 kg/m2 [place] (BMI) [Ratio] [facility] Daily Weight 103.5 kg 103.5 kg Nucerescoce [facility] Body height 193 cm 193 cm Nucerescoce [facility] Heart rate 105 bpm 60-100 Above high [...] weight 103.5 kg 103.5 kg [place] Measured [facility] Body height 193 cm 193 cm [place] [facility] Inhaled oxygen 2 L/min 2 L/min [place] flow rate [facility] Inhaled oxygen 2 L/min 2 L/min [place] flow rate [facility] Inhaled oxygen 2 L/min 2 L/min [place] flow rate [facility] Oxygen Therapy [place] Activity [facility] Body mass index 27.33 kg/m2 27.33 kg/m2 [place] (BMI) [Ratio] [facility] Body weight 101.82 kg 101.82 kg [place] Measured [facility] Body height 193 cm 193 cm [place] [facility] Body mass index 27.33 kg/m2 27.33 kg/m2 [place] (BMI) [Ratio] [facility] Diastolic blood 92 mm[Hg] 92 mm[Hg] [facility] ins pressure Hospital Systolic blood 202 mm[Hg] 202 mm[Hg] [facility] ns pressure Hospital Respiratory 18 /min 18 /min [facility] rate Hospital Heart rate 107 /min 107 /min [facility] Body 37.93857 Fide 37.92504 Fide [facility] temperature Hospital Body 99.1 [degF] 99.1 [degF] [facility] Body mass index 28.0 kg/m2 28.0 kg/m2 [facility] ins (BMI) [Ratio] Hospital Body weight 224.47 [lb_av] 224.47 [lb_av] [facility] Body 37 Fide 0 - 99.9 [...] results) Body surface 2.2 m2 2.2 m2 [facility] area Derived Health Syste m from formula Body mass index 27.4 kg/m2 27.4 [facility] Health Syst em Body weight 99.79 kg 99.79 kg [facility] Body height 190.5 cm 190.5 cm [facility] Body surface 2.3 m2 2.3 m2 [facility] area Derived Health Syste m from formula Body mass index 28.4 kg/m2 28.4 kg/m2 [place] (BMI) [Ratio] Health Syst em Body weight 103.41 kg 103.41 kg [facility] Body height 190.5 cm 190.5 cm [facility] Body 97.8 [degF] 0 - 200 Normal (applies to 97.8 [degF] [facility]ore temperature non-numeric Health Syste results) Body 36.5 Fide 0 - 99.9 Normal (applies to 36.5 Fide [facility] temperature non-numeric [facility] Syste results) Diastolic blood 83 mm[Hg] 0 - 999 Normal (applies to 83 mm[Hg] [facility] pressure non-numeric Health System results) Systolic blood 151 mm[Hg] 0 - 999 Above high normal 151 mm[Hg] [facility] Oxygen 100 % 0 - 999 Normal (applies to 100 % [facility] saturation in non-numeric Health s tem Arterial blood results) by Pulse oximetry Respiratory 20 0 - 999 Above high normal 20 [facility] iore rate Health System Heart rate 95 0 - 999 Normal (applies to 95 [place] non-numeric Health System results) Body 36.5 Fide 0 - 99.9 Normal (applies to 36.5 Fide [facility] temperature non-numeric Health Syste results) Body 97.8 [degF] 0 - 200 Normal (applies to 97.8 [degF] [facility] efiore temperature non-numeric Health Syste results) Diastolic blood 83 mm[Hg] 0 - 999 Normal (applies to 83 mm[Hg] [facility] pressure non-numeric Health System results) Systolic blood 137 mm[Hg] 0 - 999 Normal (applies to 137 mm[Hg] [facility] pressure non-numeric Health System results) Oxygen 98 % 0 - 999 Normal (applies to 98 % [facility] saturation in non-numeric Health s tem Arterial blood results) by Pulse oximetry Respiratory 17 0 - 999 Normal (applies to 17 [place] janny rate non-numeric Health System results) Heart rate 88 0 - 999 Normal (applies to 88 [place] non-numeric Health System results) Body surface 2.3 m2 2.3 m2 [facility] Health Syste from formula Body mass index 28.4 kg/m2 28.4 kg/m2 [facility] e (BMI) [Ratio] Health Syst em Body weight 103.41 kg 103.41 kg [facility] Body height 190.5 cm 190.5 cm [facility] Body surface 2.3 m2 2.3 m2 [place] area Derived Health Syste m from formula Body mass index 28.2 kg/m2 28.2 kg/m2 [facility] e (BMI) [Ratio] Health Syst em Body weight 102.51 kg 102.51 kg [facility] Body height 190.5 cm 190.5 cm [facility] Body 98 [degF] 0 - 200 Normal (applies to 98 [degF] [facility] temperature non-numeric Health Syste m results) Body 36.6 Fide 0 - 99.9 Normal (applies to 36.6 Fide [facility] temperature non-numeric Health Syste m results) Diastolic blood 70 mm[Hg] 0 - 999 Normal (applies to 70 mm[Hg] [facility] pressure non-numeric Health System results) Systolic blood 120 mm[Hg] 0 - 999 Normal (applies to 120 mm[Hg] [facility] pressure non-numeric Health System results) Oxygen 99 % 0 - 999 Normal (applies to 99 % [facility] iore saturation in non-numeric Health Sys [facility] Arterial blood results) by Pulse oximetry Respiratory 17 0 - 999 Normal (applies to 17 [place] janny rate non-numeric Health System results) Heart rate 86 0 - 999 Normal (applies to 86 [place] non-numeric Health System results) Diastolic blood 82 mm[Hg] 82 mm[Hg] [facility] pressure Hospital Systolic blood 145 mm[Hg] 145 mm[Hg] [facility] pressure Hospital Respiratory 19 /min 19 /min [facility] Heart rate 95 /min 95 /min [facility] Body 36.18389 Fide 36.01870 Fide [facility] temperature [facility] Body 98.1 [degF] 98.1 [degF] [facility] Body mass index 27.0 kg/m2 27.0 kg/m2 [facility] ins (BMI) [Ratio] Hospital Body weight 221.45 [lb_av] 221.45 [lb_av] [facility] Diastolic blood 76 mm[Hg] 76 mm[Hg] [facility] pressure Hospital Systolic blood 125 mm[Hg] 125 mm[Hg] [facility] pressure Hospital Respiratory 18 /min 18 /min [facility] Heart rate 83 /min 83 /min [facility] Body 36.77903 Fide 36.86097 Fide [facility] temperature Hospital Body 97.6 [degF] 97.6 [degF] [facility] Body mass index 28.0 kg/m2 28.0 kg/m2 [facility] ins (BMI) [Ratio] Hospital Body weight 220.46 [lb_av] 220.46 [lb_av] [facility] Diastolic blood 80 mm[Hg] 80 mm[Hg] [facility] ins pressure Hospital Systolic blood 149 mm[Hg] 149 mm[Hg] [facility] Respiratory 17 /min 17 /min [facility] Heart rate 91 /min 91 /min [facility] Body 36.11113 Fide 36.53494 Fide [facility] Body 98.2 [degF] 98.2 [degF] [facility] Body mass index 29.0 kg/m2 29.0 kg/m2 [facility] ins (BMI) [Ratio] Hospital Body weight 229.28 [lb_av] 229.28 [lb_av] [facility] Diastolic blood 80 mm[Hg] 80 mm[Hg] [facility] pressure Hospital Systolic blood 138 mm[Hg] 138 mm[Hg] [facility] pressure Hospital Respiratory 18 /min 18 /min [facility] Heart rate 100 /min 100 /min [facility] Body 36.40336 Fide 36.65665 Fide [facility] Body 97.8 [degF] 97.8 [degF] [facility] Body mass index 29.0 kg/m2 29.0 kg/m2 [facility] (BMI) [Ratio] Hospital Body weight 226.48 [lb_av] 226.48 [lb_av] [facility] Diastolic blood 81 mm[Hg] 81 mm[Hg] [facility] pressure Hospital Systolic blood 134 mm[Hg] 134 mm[Hg] [facility] Hospital Respiratory 18 /min 18 /min [facility] Heart rate 98 /min 98 /min [facility] Body 36.50819 Fide 36.59316 Fide [facility] Hospital Body 98.5 [degF] 98.5 [degF] [facility] Body mass index 29.0 kg/m2 29.0 kg/m2 [facility] (BMI) [Ratio] Hospital Body weight 238 [lb_av] 238 [lb_av] [facility] Diastolic blood 88 mm[Hg] 88 mm[Hg] [facility] ins pressure Hospital Systolic blood 141 mm[Hg] 141 mm[Hg] [facility] ns pressure Hospital Respiratory 18 /min 18 /min [facility] rate Hospital Heart rate 79 /min 79 /min [facility] Body 36.05503 Fide 36.29415 Fide [facility] ns temperature Hospital Body 98.3 [degF] 98.3 [degF] [facility] Body mass index 28.0 kg/m2 28.0 kg/m2 [facility] (BMI) [Ratio] Hospital Body weight 235.50 [lb_av] 235.50 [lb_av] [facility] Patient Treatment Plan of Care Planned Activity Planned Date Details Description Data Source (s) No data available for this [facility] No data available for this [facility] No data available for this [facility] No data available for this [facility] No data available for this [facility] No data available for this [facility] No data available for this [facility] No data available for this [facility] No data available for this [facility] Simethicone 80 MG Chewable 06/25/2019 [facility] Health - Tablet 09:57:00 AM EDT [facility] Acetaminophen 325 MG Oral 06/25/2019 [facility] Health - Tablet 09:57:00 AM EDT [facility] Lisinopril 20 MG Oral 06/10/2019 [facility] e Health - Tablet 09:09:00 AM EST [facility] Metoclopramide 10 MG Oral 06/10/2019 [facility] Health - Tablet 09:09:00 AM EST [facility] Hydralazine Hydrochloride 06/10/2019 [facility] Health - 25 MG Oral Tablet 09:09:00 AM EST [facility] carvedilol 6.25 MG Oral 06/10/2019 [facility] - Tablet 09:09:00 AM EST [facility] metformin 06/05/2019 [facility] 01:15:00 AM [facility] Hydro[facility] Hydrochloride 03/12/2019 [facility] 50 MG Oral Tablet 05:14:09 AM EST System Lorazepam 1 MG Oral Tablet 03/08/2019 [facility] [Ativan] 08:37:45 PM EST System Lorazepam 1 MG Oral Tablet 02/24/2019 [facility] [Ativan] 02:02:37 AM EST System [facility]ix [facility] Metformin [facility]
[2020-01-07 04:34] LABS: ANISOCYTOSIS 1+; MACROCYTOSIS 0
[2020-01-07] MEDS ORDERED: HYDROmorphone HCl 2 MG/ML VIAL IVPUSH PRN ×2 (05:19→06:39)
[2020-01-07] MEDS ORDERED: LABETALOL HCL 200 MG TABLET (FP) PO ONE (05:22)
[2020-01-07] MEDS ORDERED: LOPERAMIDE HCL 2 MG CAPSULE ONE (05:27)
[2020-01-07] MEDS ORDERED: HYDROmorphone HCl 2 MG/ML VIAL ONE (05:28)
[2020-01-07] MEDS ORDERED: LABETALOL HCL 100 MG TABLET (FP) ONE (05:29)
--- NOTE | 2020-01-07 05:32 | HP ---
CHIEF COMPLAINT: Vomiting and abdominal pain HISTORY OF PRESENT ILLNESS: Mr. Daniele Laird is a 54 yo man with PMH NIDDM, gastroparesis, right BKA, presenting with 1 day of vomiting and abdominal pain. He began vomiting greenish-yellow fluid yesterday afternoon, and has since vomited 25+ times. He states the vomit is currently brownish red in color with coffee ground emesis. The abdominal pain is diffuse, and he has experienced this pain before, which he attributes to gastroparesis. The abdominal pain does not radiate anywhere, and is described as a 'stabbing' sensation 10/10 pain. He has not eaten anything the past 3 days because he has not had an appetite. He denies hematochezia, melena, fever, chills, chest pain, palpitations, dysuria, frequency. States he had a normal bowel movement in the ED upon arrival. He has been hospitalized with similar presentation in the past, most recently at [facility] from 12/03 through 12/06/19. 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 PAST SURGICAL HISTORY: R leg BKA - January 2019 Social History: Smoking: Denies Alcohol: Denies Drugs: Denies Allergies No Known Allergies Allergy (Verified 12/04/19 17:17) HOME MEDICATIONS: Home Medications Medication Instructions Recorded Pantoprazole Sodium [Protonix -] 40 mg PO DAILY #30 tablet.ec 11/12/19 Sennosides [Senna -] 2 tab PO HS PRN #60 tablet 11/12/19 Acetaminophen [Tylenol .Regular 650 mg PO Q4H PRN #90 tablet 12/06/19 Strength -] Amlodipine Besylate [Norvasc -] 5 mg PO DAILY #30 tablet 12/06/19 Gabapentin [Neurontin -] 300 mg PO TID #90 capsule 12/06/19 Labetalol HCl [Normodyne -] 200 mg PO BID #60 tablet 12/06/19 Metformin HCl [Glucophage] 500 mg PO BID #60 tab 12/06/19 Metoclopramide HCl [Reglan -] 10 mg PO TIDAC #45 tablet 12/06/19 Metoclopramide HCl [Reglan -] 10 mg PO TIDAC 15 Days #45 tablet 12/06/19 Ondansetron [Zofran *Odt*] 4 mg SL Q6H PRN #30 tab 12/06/19 Pantoprazole Sodium [Protonix -] 40 mg PO DAILY #30 tab 12/06/19 Polyethylene Glycol 3350 [Miralax 17 gm PO TID #1 bottle 12/06/19 119 gm Btl -] REVIEW OF SYSTEMS See HPI PHYSICAL EXAMINATION Vital Signs - 24 hr 01/06/20 01/07/20 23:00 03:58 Temperature 98 F Pulse Rate 105 H Pulse Rate [ 109 H Left] Respiratory 20 20 Rate Blood Pressure 165/101 H Blood Pressure 176/100 H [Left Arm] O2 Sat by Pulse 98 98 Oximetry (%) GENERAL: Awake, alert, resting calmly in bed. HEAD: Normal with no signs of trauma. EYES: Pupils equal, round and reactive to light, extraocular movements intact, s clera anicteric EARS, NOSE, THROAT: Ears normal, nares patent, oropharynx clear without exudates. Dry mucous membranes. NECK: Normal range of motion, supple without lymphadenopathy LUNGS: Breath sounds equal, clear to auscultation bilaterally. No wheezes, and no crackles. No accessory muscle use. HEART: Regular rate and rhythm, normal S1 and S2 without murmur ABDOMEN: Soft, not distended, normoactive bowel sounds, mild tenderness to palpation with no guarding, no rebound, no masses. No CVA tenderness. LOWER EXTREMITIES: 2+ pulses, warm, well-perfused. No calf tenderness. No peripheral edema. NEUROLOGICAL: Cranial nerves II-XII intact. Normal speech. PSYCHIATRIC:Good eye contact. Appropriate mood and affect. SKIN: Warm, dry, normal turgor, no rashes or lesions noted, normal capillary refill. Laboratory Results - last 24 hr 01/07/20 01/07/20 01/07/20 00:25 00:25 00:25 WBC 14.0 H Corrected WBC (auto) 18.70 RBC 4.87 Hgb 12.4 Hct 38.7 D MCV 79.4 L MCH 25.4 L MCHC 31.9 L RDW 16.9 H Plt Count 272 MPV 8.7 Neutrophils % No Result Required. Neutrophils % (Manual) 72.5 Band Neutrophils % 0.0 Lymphocytes % No Result Required. Lymphocytes % (Manual) 18.4 Monocytes % (Manual) 5 Eosinophils % (Manual) 2.0 Basophils % (Manual) 0.0 Myelocytes % (Man) 0 Promyelocytes % (Man) 0 Blast Cells % (Manual) 0 Nucleated RBC % 0 Metamyelocytes 1 Hypochromia 0 Platelet Estimate Normal Platelet Comment Present Polychromasia 0 Poikilocytosis 0 Anisocytosis 1+ Microcytosis 1+ Macrocytosis 0 PT with INR 10.70 INR 0.91 PTT (Actin FS) 16.6 L Sodium 136 Potassium 4.8 Chloride 103 Carbon Dioxide 22 Anion Gap 11 BUN 14.8 Creatinine 1.8 H Est GFR (CKD-EPI)AfAm 48.37 Est GFR (CKD-EPI)NonAf 41.74 Random Glucose 172 H Lactic Acid Calcium 10.1 Total Bilirubin 0.5 AST 30 ALT 24 Alkaline Phosphatase 140 H Troponin I < 0.02 Total Protein 8.9 H Albumin 4.2 Lipase 41 L 01/07/20 00:25 WBC Corrected WBC (auto) RBC Hgb Hct MCV MCH MCHC RDW Plt Count MPV Neutrophils % Neutrophils % (Manual) Band Neutrophils % Lymphocytes % Lymphocytes % (Manual) Monocytes % (Manual) Eosinophils % (Manual) Basophils % (Manual) Myelocytes % (Man) Promyelocytes % (Man) Blast Cells % (Manual) Nucleated RBC % Metamyelocytes Hypochromia Platelet Estimate Platelet Comment Polychromasia Poikilocytosis Anisocytosis Microcytosis Macrocytosis PT with INR INR PTT (Actin FS) Sodium Potassium Chloride Carbon Dioxide Anion Gap BUN Creatinine Est GFR (CKD-EPI)AfAm Est GFR (CKD-EPI)NonAf Random Glucose Lactic Acid 2.4 H* Calcium Total Bilirubin AST ALT Alkaline Phosphatase Troponin I Total Protein Albumin Lipase ASSESSMENT/PLAN: Mr. Daniele Laird is a 54 yo man with PMH NIDDM, gastroparesis, right BKA, presenting with 1 day of vomiting and abdominal pain, being admitted with likely gastroparesis. #Abdominal pain and vomiting - Likely due to gastroparesis -- Patient reports this episode is similar to previous episodes - F/u with pts valet Dr. Joe to determine whether he has had gastric emptying study, tested for H Pylori - Start Reglan 10mg q8 and Pepcid 20 mg iv - Hydration with 0.9% NS at 100 mls/hr - GI consult #R/O ACS - EKG obtained in ED with sinus tachy and ST and T abnormalities - EKG is changed from prior admission which demonstrated t wave changes with no ST abnormalities - First troponin negative; trend - F/u repeated EKG #UTI - Elevated WBCs to 14 with UA consistent with UTI - Start Vanc and Zosyn #LIZA - Creatinine elevated to 1.8; baseline ~1.1-1.4 - Likely due to dehydration secondary to vomiting - Monitor am labs - Hold home metormin during admission #Hypertension - Patient hypertensive to 170s/100 in the ED - Received labetalol 200mg po - Monitor BP - Consider adding amlodipine 10 if BP does not decrease appropriately - Advise to begin Lisinopril at discharge in this diabetic patient #NIDDM - Hold home metformin - BGM - Sliding scale during admission DVT prophylaxis: SCDs (hematemesis) FEN - 0.9% NS at 100 mls/hr - F/U magnesium, phosphorus, am labs - NPO Dispo: Med/surg FULL CODE Family Medical History Family History: As Documented Visit type - Emergency Visit Emergency Visit: Yes ED Registration Date: 01/07/20 Care time: The patient presented to the Emergency Department on the above date and was hospitalized for further evaluation of their emergent condition. - New Patient This patient is new to me today: Yes Date on this admission: 01/07/20 - Critical Care Critical Care patient: No ATTENDING PHYSICIAN STATEMENT I saw and evaluated the patient. I reviewed the resident's note and discussed the case with the resident. I agree with the resident's findings and plan as documented. SUBJECTIVE: OBJECTIVE: ASSESSMENT AND PLAN:
[2020-01-07] MEDS ORDERED: SODIUM CHLORIDE 1,000 ML IV SCH (06:00)
[2020-01-07 06:01] LABS: EPI CELLS 4 /uL (0-25.1); HYALINE CASTS 13 /uL (0-3.1); PH,URINE >= 9.0 (5.0-8.0); URINE APPEARANCE CLOUDY; URINE BACTERIA 3016 /uL (0-1359); URINE BILIRUBIN NEGATIVE (NEGATIVE); URINE COLOR YELLOW; URINE GLUCOSE (UA) TRACE (NEGATIVE); URINE KETONE 1+ (NEGATIVE); URINE LEUK ESTERASE 2+ (NEGATIVE); URINE NITRITE NEGATIVE (NEGATIVE); URINE PROTEIN 3+ (NEGATIVE); URINE RBC 53 /uL (0-23.9); URINE UROBILINOGEN 0.2 mg/dL (0.2-1.0); URINE WBC 2280 /uL (0-25.8)
[2020-01-07] MEDS ORDERED: METOCLOPRAMIDE HCL INJECTION 10 MG/2 ML VIAL IVPUSH PRN (06:02)
[2020-01-07 06:06] LABS: PHOSPHOROUS 2.8 mg/dL (2.5-4.9)
[2020-01-07] MEDS ORDERED: PIPERACILLIN/TAZOB 4.5 GM 4.5 GM in DEXTROSE 5%-WATER 100 ML IVPB ONE (06:43)
[2020-01-07] MEDS ORDERED: VANCOMYCIN 1 GRAM (PRE-DOCKED) 1,000 MG/250 ML BAG IVPB ONE (06:45)
[2020-01-07] MEDS ORDERED: INSULIN SLIDING SCALE (NOVOLOG) 1 VIAL SQ SCH (07:00)
[2020-01-07] MEDS ORDERED: DEXTROSE 5%-WATER 100 ML IVPB ONE (08:42)
[2020-01-07] MEDS ORDERED: PIPERACILLIN/TAZOBACTAM 4.5 GM VIAL IVPB ONE (08:42)
[2020-01-07] MEDS: PANTOPRAZOLE SODIUM 40 MG VIAL IVPUSH SCH ×2 (08:54→11:14)
[2020-01-07 09:58] LABS: BASO % 0.2 % (0-2.0); EOS % 0.1 % (0-4.5); HEMATOCRIT 33.3 % (35.4-49); HEMOGLOBIN 10.5 GM/dL (11.7-16.9); LYMPH % 12.9 % (8-40); MCHC 31.6 g/dl (32.0-35.9); MEAN CELL VOLUME 79.3 fl (80-96); MEAN PLT VOLUME 8.3 fl (7.5-11.1); MONO % 3.7 % (3.8-10.2); NEUT % 83.1 % (42.8-82.8); PLATELET COUNT 259 K/MM3 (134-434); RDW 16.4 % (11.9-15.9)
[2020-01-07] MEDS ORDERED: PANTOPRAZOLE 20 MG TABLET PO SCH (10:00)
[2020-01-07] MEDS ORDERED: SODIUM CHLORIDE 0.9%/KCL 20 MEQ/1,000 ML INFUS.BAG IV SCH (10:15)
--- NOTE | 2020-01-07 10:20 | PN ---
Progress Note, Physician Chief Complaint: Abdominal pain Gastroparesis History of Present Illness: Mr. Daniele Laird is a 54 yo man with PMH NIDDM, gastroparesis, right BKA, presenting with 1 day of vomiting and abdominal pain. Pt has had several admissions in the past for similar complaints, has been evaluated by GI with recommendations to follow up with at [facility] and [facility], pt has previously failed to do so. Pt has had an EGD in the [facility] system in October with Dr Joe when a polyp was removed and a " tear was bonded". He denies being told of a Alexandrea Mandujano tear or a tear related to vomiting. Pt reports of no GI bleeding in the past. He reports that no clear cut etiology for his repeated episodes of vomiting has been determined but he is taking Reglan 10mg TID ac. He has never had a colonoscopy. Pt had one time virtual visit with Shahid Ortiz at [facility] recently who ordered Gastric emptying study, pt was supposed to go do the test but ended up in the hospital with symptoms. Pt's UA Urine pH >= 9.0 H Urine Protein 3+ H Urine Ketones 1+ H Ur Leukocyte Esterase 2+ H Denies any abd pain at this time, last vomiting early this AM. - Current Medication List Current Medications: Active Medications Acetaminophen (Ofirmev Injection -) 1,000 mg IVPB Q6H PRN PRN Reason: PAIN Stop: 01/08/20 10:06 Potassium Chloride/Sodium Chloride (Ns+20 Meq Kcl -) 20 meq in 1,000 mls @ 75 mls/hr IV ASDIR LUCY Insulin Aspart (Novolog Vial Sliding Scale -) 1 vial SQ ACHS [facility]; Protocol Metoclopramide HCl (Reglan Injection -) 10 mg IVPUSH Q8H LUCY Pantoprazole Sodium (Protonix Iv) 40 mg IVPUSH DAILY [facility] Last Admin: 01/07/20 08:54 Dose: 40 mg Documented by: - Objective Vital Signs: Vital Signs Temperature 99.0 F 01/07/20 06:01 Pulse Rate 102 H 01/07/20 06:01 Respiratory Rate 18 01/07/20 06:01 Blood Pressure 146/80 01/07/20 06:01 O2 Sat by Pulse Oximetry (%) 96 01/07/20 06:01 Constitutional: Yes: Well Nourished, No Distress, Calm Cardiovascular: Yes: Regular Rate and Rhythm Respiratory: Yes: Regular, CTA Bilaterally Gastrointestinal: Yes: Soft, Hypoactive Bowel Sounds Genitourinary: Yes: WNL Musculoskeletal: Yes: WNL Extremities: Yes: WNL Edema: No Peripheral Pulses WNL: Yes Neurological: Yes: Alert, Oriented Psychiatric: Yes: Alert, Oriented Labs: INR, PTT INR 0.91 (0.83-1.09) 01/07/20 00:25 Problem List - Problems (1) Abdominal pain Assessment/Plan: -Last CTAP 11/09/19: was unremarkable -GI consult -Acetaminophen 1g Q6H PRN for pain, pt understand dilaudid is not appropriate pain management for his gastroparesis -Trial of clear liquids, if vomits will continue bowel rest -IVF -Pt will do Gastric emptying study upon d/c -Will check UC Problems reviewed: Yes Code(s): R10.9 - UNSPECIFIED ABDOMINAL PAIN Qualifiers: Abdominal location: unspecified location Qualified Code(s): R10.9 - Unspecified abdominal pain (2) Diabetes Assessment/Plan: -A1c 11/07/19-6.9 -D5 N/S + KCl 20 meq @ 75 cc/hr -BGM Problems reviewed: Yes Code(s): E11.9 - TYPE 2 DIABETES MELLITUS WITHOUT COMPLICATIONS (3) Diabetic gastroparesis Assessment/Plan: -Reglan 10 mg IVP TID Problems reviewed: Yes Code(s): 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 (4) Vomiting Assessment/Plan: -Resolved -Reglan 10 mg TID -Zofran 8 mg Q6H PRN Problems reviewed: Yes Code(s): R11.10 - VOMITING, UNSPECIFIED Qualifiers: Vomiting type: unspecified Vomiting Intractability: intractable Nausea presence: with nausea Qualified Code(s): R11.2 - Nausea with vomiting, unspecified Assessment/Plan See problem list
[2020-01-07 10:32] LABS: ALBUMIN 3.7 g/dl (3.4-5.0); ALK PHOS 120 U/L (45-117); ANION GAP 9 MMOL/L (8-16); BILIRUBIN,TOTAL 0.3 mg/dL (0.2-1); BLOOD UREA NITROGEN 16.6 mg/dL (7-18); CALCIUM 9.3 mg/dL (8.5-10.1); CHLORIDE 104 mmol/L (98-107); CO2 26 mmol/L (21-32); CREATININE 1.8 mg/dL (0.55-1.3); GLUCOSE,RANDOM 163 mg/dL (74-106); POTASSIUM 4.3 mmol/L (3.5-5.1); SGOT/AST 11 U/L (15-37); SGPT/ALT 18 U/L (13-61); SODIUM 138 mmol/L (136-145); TOT PROT 7.8 g/dl (6.4-8.2)
[2020-01-07] MEDS: ACETAMINOPHEN 1000 MG/100 ML VIAL (NON FORMULARY) IVPB PRN ×4 (10:53→22:55)
--- NOTE | 2020-01-07 11:09 | EKG ---
Test Reason : Blood Pressure : / mmHG Vent. Rate : 112 BPM Atrial Rate : 112 BPM P-R Int : 174 ms QRS Dur : 082 ms QT Int : 334 ms P-R-T Axes : 058 015 -84 degrees QTc Int : 455 ms SINUS TACHYCARDIA ABNORMAL ECG WHEN COMPARED WITH ECG OF 04-DEC-2019 17:56, NON-SPECIFIC CHANGE IN ST SEGMENT IN INFERIOR LEADS INVERTED T WAVES HAVE REPLACED NONSPECIFIC T WAVE ABNORMALITY IN INFERIOR LEADS Confirmed by MD Darci, Norman ([id number]) on 01/07/2020 11:08:53 AM Referred By: Confirmed By:Norman Bejarano MD
[2020-01-07] MEDS: METOCLOPRAMIDE HCL INJECTION 10 MG/2 ML VIAL IVPUSH SCH ×2 (11:24→17:35)
--- NOTE | 2020-01-07 12:25 | CON.ID ---
Consult Consult Specialty:: infectious disease Referred by:: dr chavez Reason for Consultation:: leukocytosis - History of Present Illness Chief Complaint: vomiting History of Present Illness: 54 yo man with known gastroparesis-thirdadmission for persistent [facility] no fevers or chills no abdominal pain vomiting improved no diarrhea or dysuria no difficulty ambulation with prosthesis reports ulcer LLE healed- will not take his sock off for me to examine - History Source History Provided By: Patient Limitations to Obtaining History: No Limitations - Past Medical History Cardio/Vascular: Yes: HTN Gastrointestinal: Yes: Constipation, Other (Recurring episodes of vomiting, often associated with flecks of blood and treated with Reglan) Hepatobiliary: Yes: Other (gastroparesis) Infectious Disease: Yes: Other (RLE osteomyelitis ) Endocrine: Yes: Diabetes Mellitus - Past Surgical History Past Surgical History: Yes: Amputation (right BKA), Upper Endoscopy - Alcohol/Substance Use Hx Alcohol Use: No History of Substance Use: reports: None - Smoking History Smoking history: Never smoked Have you smoked in the past 12 months: No - Social History Usual Living Arrangement: With Significant Other ADL: Independent 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 [employer] History of Recent Travel: No Home Medications - Allergies Allergies/Adverse Reactions: Allergies Allergy/AdvReac Type Severity Reaction Status Date / Time No Known Allergies Allergy Verified 12/04/19 17:17 - Home Medications Home Medications: Ambulatory Orders Pantoprazole Sodium [Protonix -] 40 mg PO DAILY #30 tablet.ec 11/12/19 Sennosides [Senna -] 2 tab PO HS PRN #60 tablet 11/12/19 Acetaminophen [Tylenol .Regular Strength -] 650 mg PO Q4H PRN #90 tablet 12/06/19 Amlodipine Besylate [Norvasc -] 5 mg PO DAILY #30 tablet 12/06/19 Gabapentin [Neurontin -] 300 mg PO TID #90 capsule 12/06/19 Labetalol HCl [Normodyne -] 200 mg PO BID #60 tablet 12/06/19 Metformin HCl [Glucophage] 500 mg PO BID #60 tab 12/06/19 Metoclopramide HCl [Reglan -] 10 mg PO TIDAC #45 tablet 12/06/19 Metoclopramide HCl [Reglan -] 10 mg PO TIDAC 15 Days #45 tablet 12/06/19 Ondansetron [Zofran *Odt*] 4 mg SL Q6H PRN #30 tab 12/06/19 Pantoprazole Sodium [Protonix -] 40 mg PO DAILY #30 tab 12/06/19 Polyethylene Glycol 3350 [Miralax 119 gm Btl -] 17 gm PO TID #1 bottle 12/06/19 Family Medical History Family Hx Cancer: Mother (breast cancer) Review of Systems - Review of Systems Constitutional: denies: Chills, Fever Eyes: reports: No Symptoms HENT: reports: No Symptoms Cardiovascular: denies: Chest Pain Respiratory: denies: Cough Gastrointestinal: reports: Vomiting Physical Exam Vital Signs: Vital Signs Temperature 98.6 F 01/07/20 11:18 Pulse Rate 75 01/07/20 11:18 Respiratory Rate 18 01/07/20 11:18 Blood Pressure 140/80 01/07/20 11:18 O2 Sat by Pulse Oximetry (%) 97 01/07/20 11:18 Constitutional: Yes: Well Nourished, No Distress, Calm Eyes: Yes: Conjunctiva Clear HENT: Yes: Atraumatic Neck: Yes: Supple Cardiovascular: Yes: Regular Rate and Rhythm Respiratory: Yes: Regular, CTA Bilaterally Gastrointestinal: Yes: Normal Bowel Sounds, Soft. No: Tenderness, Epigastrium Extremities: Yes: Amputation (no edema) Psychiatric: Yes: Alert, Oriented Labs: CBC, BMP 01/07/20 09:15 01/07/20 09:15 Imaging - Results Chest X-ray: Report Reviewed, Image Reviewed Problem List - Problems (1) Leukocytosis Code(s): D72.829 - ELEVATED WHITE BLOOD CELL COUNT, UNSPECIFIED (2) Diabetic gastroparesis Code(s): 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 (3) Elevated lactic acid level Code(s): R79.89 - OTHER SPECIFIED ABNORMAL FINDINGS OF BLOOD CHEMISTRY (4) LIZA (acute kidney injury) Code(s): N17.9 - ACUTE KIDNEY FAILURE, UNSPECIFIED Assessment/Plan suspect leukocytosis and lactic acidosis due to profuse vomiting current exam benign no symptoms of UTI can repeat UA and urine culture he got vanco/zosyn this am-not sure why f/u with GI d/w hospitalist
[2020-01-07] MEDS: D5-LR+20 MEQ KCL - 20 MEQ/1,000 ML INFUS.BAG IV SCH (12:37)
[2020-01-07] MEDS ORDERED: METOPROLOL TARTRATE 5 MG/5 ML VIAL IVPB PRN (12:53)
[2020-01-07] MEDS ORDERED: ONDANSETRON 4 MG/2 ML VIAL IVPB PRN (12:53)
--- NOTE | 2020-01-07 12:59 | PN ---
Progress Note (short form) - Note Progress Note: GI CONSULT DICTATED - REGLAN 10 MG IVTID AC -- PPI 40 MG IV QD -- BOWEL REGIMEN - MIRALAX BID -- AXR ORDERED -- SERIAL CBC Q12 -- AVOID NSAID -- NO PLAN FOR INVASIVE PROCEDURE AT THIS TIME
--- NOTE | 2020-01-07 14:42 | CONS ---
DATE OF CONSULTATION: 01/07/2020 HISTORY OF PRESENT ILLNESS: The patient is a 54-year-old man who is known to me from previous hospitalizations at other hospitals. He has a past medical history significant for diabetes, gastroparesis, right BKA. He was previously scoped by me with an endoscopy a few months ago, at which time I believe the findings were consistent with gastritis. I will obtain this report. He now presents to the hospital with complaints of vomiting up to 25 times, and following all these episodes some coffee-grounds discoloration is what he is noting. He admits to diffuse abdominal pain very similar to his previous episodes. He does not understand what the trigger is for his present symptoms. He has been hospitalized at [facility] a couple of times prior to this hospitalization also. He denies any hematochezia, melena, constipation, or diarrhea. PAST MEDICAL/SURGICAL HISTORY: As listed in the HPI, with the addition of osteomyelitis which led to his BKA in January of 2019. He does not smoke, drink, or use any drugs. ALLERGIES: No known drug allergies. HOME MEDICATIONS: Include Protonix, senna, acetaminophen, Norvasc, Neurontin, Glucophage, Reglan, Zofran, Protonix, and MiraLax. PHYSICAL EXAMINATION: Vital Signs: Temperature 98, pulse 100, respiratory rate 12, pulse rate 100, blood pressure 170/100, pulse oximetry 98% on room air. General: Pleasant man, no acute distress. HEENT: Anicteric sclerae. Cardiovascular: S1, S2, regular rate and rhythm. Lungs: Bilaterally clear to auscultation. Abdomen: Soft, nontender, with normal bowel sounds. Extremities: No edema. BKA. LABORATORY: White blood cell count on admission 14, presently 12. Hemoglobin 10, hematocrit 33. On admission it was 12 and 38. MCV 79, platelet count 259. INR 0.9. Sodium 138, potassium 4.3, BUN 16, creatinine 1.8. Glucose 163. AST 11, ALT 18, alkaline phosphatase 120, lipase 41. Urine with 2+ leukocyte esterase. COVID- 19 testing is pending. No abdominal imaging was done during this hospitalization. He had abdominal x-ray done in November which did not reveal any acute pathology. Abdomen and pelvic CT scan on the 08 of November which revealed no acute intraabdominal process, no bowel obstruction, no hydronephrosis, just some degenerative disease. IMPRESSION: Nausea and vomiting secondary to gastroparesis. Questionable coffee-grounds emesis which is likely secondary to his multiple episodes of vomiting and retching which may have led to a small tear or esophagitis. There is no sign of an overt gastrointestinal bleed at this time. RECOMMENDATION: Reglan should be started, 10 mg IV t.i.d. a.c. Clear liquid diet as tolerated. Continue Protonix 40 mg IV daily. Antibiotics as per the primary medical team. I will order an abdominal x-ray for completeness. Would hold off on any additional invasive testing such as endoscopy at this time. I will also obtain his most recent endoscopy from the outside facility. Avoid NSAIDs. Serial hemoglobin and hematocrit q.12. Will follow. DO ESTEFANY BALTAZAR/[id number] MTDD
[2020-01-07 15:54] LABS: EPI CELLS 16 /uL (0-25.1); HYALINE CASTS 2 /uL (0-3.1); PH,URINE 7.5 (5.0-8.0); URINE APPEARANCE TURBID; URINE BACTERIA 4658 /uL (0-1359); URINE BILIRUBIN NEGATIVE (NEGATIVE); URINE COLOR YELLOW; URINE GLUCOSE (UA) TRACE (NEGATIVE); URINE KETONE TRACE (NEGATIVE); URINE LEUK ESTERASE 3+ (NEGATIVE); URINE NITRITE NEGATIVE (NEGATIVE); URINE PROTEIN 3+ (NEGATIVE); URINE RBC 76 /uL (0-23.9); URINE UROBILINOGEN 0.2 mg/dL (0.2-1.0); URINE WBC 4585 /uL (0-25.8)
[2020-01-08] MEDS: METOCLOPRAMIDE HCL INJECTION 10 MG/2 ML VIAL IVPUSH SCH ×2 (01:54→10:10)
--- NOTE | 2020-01-08 08:08 | PN ---
Progress Note, Physician - Current Medication List Current Medications: Active Medications Acetaminophen (Ofirmev Injection -) 1,000 mg IVPB Q6H PRN PRN Reason: PAIN Stop: 01/08/20 10:06 Last Admin: 01/07/20 22:55 Dose: 1,000 mg Documented by: Dextrose/Lactated Ringer's (D5-Lr+20 Meq Kcl -) 20 meq in 1,000 mls @ 75 mls/hr IV ASDIR [facility] Last Admin: 01/07/20 12:37 Dose: 75 mls/hr Documented by: Insulin Aspart (Novolog Vial Sliding Scale -) 1 vial SQ ACHS [facility]; Protocol Metoclopramide HCl (Reglan Injection -) 10 mg IVPUSH Q8H [facility] Last Admin: 01/08/20 01:54 Dose: 10 mg Documented by: Metoprolol Tartrate (Lopressor Injection -) 5 mg IVPB Q4H PRN PRN Reason: HYPERTENSION Ondansetron HCl (Zofran Injection) 8 mg IVPB Q6H PRN PRN Reason: NAUSEA Last Admin: 01/07/20 15:01 Dose: 8 mg Documented by: Pantoprazole Sodium (Protonix Iv) 40 mg IVPUSH DAILY [facility] Last Admin: 01/07/20 11:14 Dose: Not Given Documented by: - Objective Vital Signs: Vital Signs Temperature 98.6 F 01/08/20 06:00 Pulse Rate 84 01/08/20 06:00 Respiratory Rate 20 01/08/20 06:00 Blood Pressure 149/76 01/08/20 06:00 O2 Sat by Pulse Oximetry (%) 99 01/08/20 06:00 Cardiovascular: Yes: S1, S2 Respiratory: Yes: Regular, CTA Bilaterally Gastrointestinal: Yes: Normal Bowel Sounds, Soft. No: Tenderness Labs: CBC, BMP 01/07/20 09:15 01/07/20 09:15 INR, PTT INR 0.91 (0.83-1.09) 01/07/20 00:25 Assessment/Plan - Problems (1) Abdominal pain Assessment/Plan: -Last CTAP 11/09/19: was unremarkable -GI consult -Acetaminophen 1g Q6H PRN for pain, pt understand dilaudid is not appropriate pain management for his gastroparesis -Trial of clear liquids, if vomits will continue bowel rest -IVF -Pt will do Gastric emptying study upon d/c -Will check UC Problems reviewed: Yes Code(s): R10.9 - UNSPECIFIED ABDOMINAL PAIN Qualifiers: Abdominal location: unspecified location Qualified Code(s): R10.9 - Unspecified abdominal pain (2) Diabetes Assessment/Plan: -A1c 11/07/19-6.9 -D5 N/S + KCl 20 meq @ 75 cc/hr -BGM Problems reviewed: Yes Code(s): E11.9 - TYPE 2 DIABETES MELLITUS WITHOUT COMPLICATIONS (3) Diabetic gastroparesis Assessment/Plan: -Reglan 10 mg IVP TID Problems reviewed: Yes Code(s): 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 (4) Vomiting Assessment/Plan: -Resolved -Reglan 10 mg TID -Zofran 8 mg Q6H PRN Problems reviewed: Yes Code(s): R11.10 - VOMITING, UNSPECIFIED Qualifiers: Vomiting type: unspecified Vomiting Intractability: intractable Nausea pr esence: with nausea Qualified Code(s): R11.2 - Nausea with vomiting, unspecified
[2020-01-08] MEDS: amLODIPine BESYLATE 5 MG TABLET (FP) PO SCH (10:10)
[2020-01-08] MEDS: LABETALOL HCL 200 MG TABLET (FP) PO SCH ×2 (10:10→22:21)
[2020-01-08] MEDS: PANTOPRAZOLE SODIUM 40 MG VIAL IVPUSH SCH (10:10)
--- NOTE | 2020-01-08 13:51 | PN ---
Progress Note (short form) - Note Progress Note: Reviewed Dr. Daniel's consultation and prior consultations. Would best be served for continued evaluation at a motility center for continued evaluation such as [facility] or [facility]. Has also been followed by house mover helper Dr. Aracely Joe from the [facility] in [facility]. I called Dr. Joe's office and left a message for him to call me back so that case can be discussed and follow-up can be arranged.
[2020-01-08] MEDS: GABAPENTIN 300 MG CAPSULE PO SCH ×2 (14:39→22:21)
--- NOTE | 2020-01-08 14:47 | PN ---
Progress Note (short form) - Note Progress Note: Spoke with his nut roaster Dr. Joe. Arranged follow-up for Mr. Laird 01/30 @ 11AM. Did confirm working diagnosis of gastroparesis. Did explain that Mr. 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 Mr. laird does not take blood pressure medications at home yet when he is admitted for these episodes, his blood pressure is markedly elevated. It is unclear if the vomiting causes the blood pressure elevations or if there is an alternate process leading to the vomiting and uncontrolled HTN Advise: Advance diet to full liquid Consider endocrine evaluation for pheochromocytoma as a cause of secondary uncontrolled hypertension and vomiting bryce Advised Mr. Laird to keep follow-up appointment with his nut roaster. he stated that he would like to follow-up at this hospital. i explained that his current issues are out of my scope of practice. Mr. Laird explained that he also was in contact with a nut roaster @ [facility] who advised him to be admitted through the ER. I explained that he would best be served undergoing continued work-up at a tertiary care center / motility center such as [facility]. Mr. Laird was asking about dilaudid for pain management. I explained that dilaudid opiates negatively affect GI motility and should be avoided as feasible. Consider pain management consult if pain cannot be adequately controlled. Decrease to reglan 5mg PO TID as needed D/C Zofran
[2020-01-08] MEDS ORDERED: METOCLOPRAMIDE HCL 10 MG TABLET (FP) PO PRN (14:48)
[2020-01-08] MEDS: D5-LR+20 MEQ KCL - 20 MEQ/1,000 ML INFUS.BAG IV SCH (14:56)
[2020-01-08] MEDS: INSULIN SLIDING SCALE (NOVOLOG) 1 VIAL SQ SCH ×3 (16:58→22:21)
[2020-01-08 19:38] LABS: BASO % 0.5 % (0-2.0); EOS % 2.2 % (0-4.5); HEMATOCRIT 30.3 % (35.4-49); HEMOGLOBIN 9.9 GM/dL (11.7-16.9); LYMPH % 30.7 % (8-40); MCHC 32.7 g/dl (32.0-35.9); MEAN CELL VOLUME 79.6 fl (80-96); MEAN PLT VOLUME 8.8 fl (7.5-11.1); MONO % 8.1 % (3.8-10.2); NEUT % 58.5 % (42.8-82.8); PLATELET COUNT 238 K/MM3 (134-434); RDW 16.5 % (11.9-15.9); WHITE BLOOD COUNT 9.9 K/mm3 (4.0-10.0)
[2020-01-08 20:09] LABS: ALBUMIN 3.5 g/dl (3.4-5.0); BILIRUBIN,TOTAL 0.3 mg/dL (0.2-1); BLOOD UREA NITROGEN 16.6 mg/dL (7-18); CALCIUM 8.3 mg/dL (8.5-10.1); CREATININE 2.2 mg/dL (0.55-1.3); POTASSIUM 3.8 mmol/L (3.5-5.1); TOT PROT 7.1 g/dl (6.4-8.2)
[2020-01-09] MEDS: INSULIN SLIDING SCALE (NOVOLOG) 1 VIAL SQ SCH ×2 (06:28→11:18)
[2020-01-09] MEDS: GABAPENTIN 300 MG CAPSULE PO SCH ×2 (06:28→13:38)
--- NOTE | 2020-01-09 08:41 | PN ---
Progress Note, Physician - Current Medication List Current Medications: Active Medications Amlodipine Besylate (Norvasc -) 5 mg PO DAILY [facility] Last Admin: 01/08/20 10:10 Dose: 5 mg Documented by: Gabapentin (Neurontin -) 300 mg PO TID [facility] Last Admin: 01/09/20 06:28 Dose: 300 mg Documented by: Insulin Aspart (Novolog Vial Sliding Scale -) 1 vial SQ ACHS [facility]; Protocol Last Admin: 01/09/20 06:28 Dose: Not Given Documented by: Labetalol HCl (Normodyne -) 200 mg PO BID [facility] Last Admin: 01/08/20 22:21 Dose: Not Given Documented by: Metoclopramide HCl (Reglan -) 5 mg PO TIDAC PRN PRN Reason: NAUSEA Metoprolol Tartrate (Lopressor Injection -) 5 mg IVPB Q4H PRN PRN Reason: HYPERTENSION Pantoprazole Sodium (Protonix Iv) 40 mg IVPUSH DAILY [facility] Last Admin: 01/08/20 10:10 Dose: 40 mg Documented by: - Objective Vital Signs: Vital Signs Temperature 97.6 F 01/09/20 06:00 Pulse Rate 73 01/09/20 06:00 Respiratory Rate 20 01/09/20 06:00 Blood Pressure 146/85 01/09/20 06:00 O2 Sat by Pulse Oximetry (%) 96 01/09/20 06:00 Cardiovascular: Yes: Regular Rate and Rhythm Respiratory: Yes: Regular, CTA Bilaterally Gastrointestinal: Yes: Normal Bowel Sounds, Soft Labs: CBC, BMP 01/08/20 19:00 01/08/20 19:00 INR, PTT INR 0.91 (0.83-1.09) 01/07/20 00:25 Assessment/Plan - Problems (1) Abdominal pain Assessment/Plan: -Resolved -Last CTAP 11/09/19: was unremarkable -GI consult -Acetaminophen 1g Q6H PRN for pain, pt understand dilaudid is not appropriate pain management for his gastroparesis -Trial of clear liquids, if vomits will continue bowel rest -OFF IVF -Pt will do Gastric emptying study upon d/c -Will check UC Problems reviewed: Yes Code(s): R10.9 - UNSPECIFIED ABDOMINAL PAIN Qualifiers: Abdominal location: unspecified location Qualified Code(s): R10.9 - Unspecified abdominal pain (2) Diabetes Assessment/Plan: -A1c 11/07/19-6.9 -dc D5 N/S + KCl 20 meq @ 75 cc/hr -BGM Problems reviewed: Yes Code(s): E11.9 - TYPE 2 DIABETES MELLITUS WITHOUT COMPLICATIONS (3) Diabetic gastroparesis Assessment/Plan: -Reglan 10 mg IVP TID -Advance diet Problems reviewed: Yes Code(s): 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 (4) Vomiting Assessment/Plan: -Resolved -Reglan 10 mg TID -Zofran 8 mg Q6H PRN Problems reviewed: Yes Code(s): R11.10 - VOMITING, UNSPECIFIED Qualifiers: Vomiting type: unspecified Vomiting Intractability: intractable Nausea presence: with nausea Qualified Code(s): R11.2 - Nausea with vomiting, unspecified
[2020-01-09] MEDS: LABETALOL HCL 200 MG TABLET (FP) PO SCH (09:13)
[2020-01-09] MEDS: amLODIPine BESYLATE 5 MG TABLET (FP) PO SCH (09:13)
[2020-01-09 09:29] LABS: BLOOD UREA NITROGEN 12.7 mg/dL (7-18); CALCIUM 8.9 mg/dL (8.5-10.1); CREATININE 1.7 mg/dL (0.55-1.3); POTASSIUM 4.3 mmol/L (3.5-5.1)
[2020-01-09] MEDS ORDERED: PANTOPRAZOLE 40 MG TABLET PO SCH (10:00)
[2020-01-09] MEDS ORDERED: SODIUM CHLORIDE 0.45% 1,000 ML IV SCH (13:00)
--- NOTE | 2020-01-09 13:01 | CONSULT ---
Consultation: REQUESTING PROVIDER: Dr. Bassett CONSULT REQUEST: We have been asked to medically evaluate this patient for acute kidney injury. HISTORY OF PRESENT ILLNESS: Patient is a 54 year old male with history of gastroparesis, diabetes mellitus II, osteomyelitis (s/p right below- knee amputation 2018), presents with complaint of recurrent vomiting. This is his third admission for similar symptoms over the past year. He has been followed by Dr. Aracely Joe at [facility], and has underwent upper endoscopy revealing gastritis. Denies prior colonoscopy. CT abdomen, pelvis did not reveal acute findings upon prior admission. Renal ultrasound on 05/2019 revealed unremarkable kidneys without calculus, masses, or hydronephrosis. Hypoechoic prostate nodule noted. Patient admits over twenty episodes of vomiting with blood and bile upon presentation. He denies further episodes of vomiting, and has been tolerating clear liquids. He did receive one dose of Vancomycin, and Zosyn. He was hypertensive to 170s/ 100s (patient states this only happens when he is vomiting, however admits he does not check his blood pressure at home). His BUN was 14.8, Cr 1.8 (baseline approx. 1.3). Has had been evaluated for LIZA with prior admissions, which improved with fluid hydration. He is making urine, and denies dysuria, hematuria. He denies prior NSAIDs, however does endorse taking ?herbal supplements. Today he denies subjective fevers, chills, shortness of breath, chest pain, palpitations, abdominal pain, nausea, vomiting, hemoptysis, diarrhea, constipation, hematochezia, dysuria, hematuria. Medical history: gastroparesis, diabetes mellitus II, osteomyelitis, hypertension Surgical history: right below the knee amputation (2019), upper endoscopy (2019) Family history: denies known oncologic family history Mother: hypertension, ?cardiac history Father: denies Social history: denies smoking cigarettes, drinking alcohol or illicit drug use (however noted prior urine toxicology positive for ecstasy, opiates). 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 REVIEW OF SYSTEMS: CONSTITUTIONAL: Absent: fever, chills, diaphoresis, generalized weakness, malaise, loss of appetite, weight change HEENT: Absent: rhinorrhea, nasal congestion, throat pain, throat swelling, difficulty swallowing, mouth swelling, ear pain, eye pain, visual changes CARDIOVASCULAR: Absent: chest pain, syncope, palpitations, irregular heart rate, lightheadedness, peripheral edema RESPIRATORY: Absent: cough, shortness of breath, dyspnea with exertion, orthopnea, wheezing, stridor, hemoptysis GASTROINTESTINAL: Absent: abdominal pain, abdominal distension, nausea, vomiting, diarrhea, constipation, melena, hematochezia GENITOURINARY: Absent: dysuria, frequency, urgency, hesitancy, hematuria, flank pain, genital pain MUSCULOSKELETAL: Absent: myalgia, arthralgia, joint swelling, back pain, neck pain SKIN: Absent: rash, itching, pallor HEMATOLOGIC/IMMUNOLOGIC: Absent: easy bleeding, easy bruising, lymphadenopathy, frequent infections ENDOCRINE: Absent: unexplained weight gain, unexplained weight loss, heat intolerance, cold intolerance NEUROLOGIC: Absent: headache, focal weakness or paresthesias, dizziness, unsteady gait, seizure, mental status changes, bladder or bowel incontinence PSYCHIATRIC: Absent: anxiety, depression, suicidal or homicidal ideation, hallucinations. PHYSICAL EXAMINATION Vital Signs - 24 hr 01/08/20 01/08/20 01/09/20 14:07 20:48 06:00 Temperature 98.8 F 98.6 F 97.6 F Pulse Rate 77 82 73 Respiratory 20 20 20 Rate Blood Pressure 132/67 133/77 146/85 O2 Sat by Pulse 99 100 96 Oximetry (%) 01/09/20 09:00 Temperature Pulse Rate Respiratory Rate Blood Pressure O2 Sat by Pulse 96 Oximetry (%) GENERAL: The patient is awake, alert, and fully oriented, in no acute distress. HEAD: Normocephalic, atraumatic. EYES: PERRL, extraocular movements intact, sclera anicteric, conjunctiva clear. ENT: Oropharynx clear, without erythema or exudates. Dry mucous membranes. NECK: Trachea midline, full range of motion. Supple without lymphadenopathy. LUNGS: Breath sounds equal, clear to auscultation bilaterally. No wheezes, no crackles. No accessory muscle use. HEART: Regular rate and rhythm. S1, S2 without murmur, rub or gallop. ABDOMEN: Soft, nondistended, nontender to light and deep palpation x4 quadrants. No rebound tenderness, no guarding. Normoactive bowel sounds x4 quadrants. No hepatosplenomegaly, no masses appreciated. EXTREMITIES: 2+ radial pulses bilaterally, 1+ dorsalis pedis pulses left lower extremity. Right below the knee amputation, scar well healed. No lower extremity edema bilaterally. NEUROLOGICAL: Cranial nerves II through XII grossly intact. Normal speech. No gross focal deficits. PSYCH: Normal mood, normal affect upon my encounter. SKIN: Warm, dry. Laboratory Results - last 24 hr 01/08/20 01/08/20 01/08/20 16:59 19:00 19:00 WBC 9.9 RBC 3.80 L Hgb 9.9 L Hct 30.3 L MCV 79.6 L MCH 26.0 MCHC 32.7 RDW 16.5 H Plt Count 238 MPV 8.8 Absolute Neuts (auto) 5.8 Neutrophils % 58.5 D Lymphocytes % 30.7 D Monocytes % 8.1 D Eosinophils % 2.2 D Basophils % 0.5 Nucleated RBC % 0 Sodium 140 Potassium 3.8 Chloride 105 Carbon Dioxide 28 Anion Gap 7 L BUN 16.6 Creatinine 2.2 H Est GFR (CKD-EPI)AfAm 37.95 Est GFR (CKD-EPI)NonAf 32.75 POC Glucometer 107 Random Glucose 134 H Calcium 8.3 L Total Bilirubin 0.3 AST 13 L ALT 17 Alkaline Phosphatase 99 Total Protein 7.1 Albumin 3.5 01/09/20 01/09/20 01/09/20 06:24 08:36 11:07 WBC RBC Hgb Hct MCV MCH MCHC RDW Plt Count MPV Absolute Neuts (auto) Neutrophils % Lymphocytes % Monocytes % Eosinophils % Basophils % Nucleated RBC % Sodium 142 Potassium 4.3 Chloride 110 H Carbon Dioxide 26 Anion Gap 7 L BUN 12.7 Creatinine 1.7 H Est GFR (CKD-EPI)AfAm 51.84 Est GFR (CKD-EPI)NonAf 44.72 POC Glucometer 103 147 Random Glucose 120 H Calcium 8.9 Total Bilirubin AST ALT Alkaline Phosphatase Total Protein Albumin Active Medications Generic Name Dose Route Start Last Admin Trade Name Freq PRN Reason Stop Dose Admin Amlodipine Besylate 5 mg 01/08/20 10:00 01/09/20 09:13 Norvasc - PO 5 mg DAILY [facility] Administration Gabapentin 300 mg 01/08/20 14:00 01/09/20 06:28 Neurontin - PO 300 mg TID [facility] Administration Sodium Chloride 1,000 mls @ 75 mls/hr 01/09/20 13:00 1/2 Normal Saline IV 01/10/20 02:19 ASDIR LUCY Insulin Aspart 1 vial 10/01/20 22:00 01/09/20 11:18 Novolog Vial Sliding Scale - SQ Not Given ACHS [facility] Protocol Labetalol HCl 200 mg 01/08/20 10:00 01/09/20 09:13 Normodyne - PO 200 mg BID [facility] Administration Metoclopramide HCl 5 mg 01/08/20 14:48 Reglan - PO TIDAC PRN NAUSEA Metoprolol Tartrate 5 mg 01/07/20 12:53 Lopressor Injection - IVPB Q4H PRN HYPERTENSION Pantoprazole Sodium 40 mg 01/09/20 10:00 01/09/20 09:13 Protonix - PO 40 mg DAILY [facility] Administration ASSESSMENT/PLAN: Patient is a 54 year old male with history of gastroparesis, diabetes mellitus II, peripheral vascular disease (s/p right below- knee amputation), presents with complaint of recurrent episodes of vomiting. Impression: Acute kidney injury Hypertension Gastroparesis Diabetes mellitus II Microcytic anemia History of ostemyelitis S/P right below the knee amputation Plan: Suspect acute kidney injury secondary to dehydration in setting of recurrent vomiting. Patient has been tolerating oral hydration, with improvement of his BUN/Cr. Counselled against use of herbal remedies as they have not been appropriately studied and may be contributing to worsening renal function. Blood pressure control is vital to prevent hypertensive nephropathy. Would recommend initiation of Losartan upon resolution of LIZA, and patient fully tolerating diet. Recommend gentle hydration with IV 0.45% saline at 75mL/ hour [id number] Gastroenterology recommendations appreciated. Avoid nephrotoxic agents Follow BMP, intake, output. Disposition: We will continue to follow the patient. Thank you for this consultative opportunity. Visit type - Emergency Visit Emergency Visit: Yes ED Registration Date: 01/07/20 Care time: The patient presented to the Emergency Department on the above date and was hospitalized for further evaluation of their emergent condition. - New Patient This patient is new to me today: Yes Date on this admission: 01/09/20 - Critical Care Critical Care patient: No ATTENDING PHYSICIAN STATEMENT I saw and evaluated the patient. I reviewed the resident's note and discussed the case with the resident. I agree with the resident's findings and plan as documented. SUBJECTIVE: OBJECTIVE: ASSESSMENT AND PLAN:
--- NOTE | 2020-01-09 13:35 | PN.GI ---
GI Progress Note Subjective: No acute events Eating Abdominal pain resolved Asking if there can be a protocol put in place so that when he comes to the hospital they know it is hard to find a vein on him and that dilaudid can be given. - Objective Vital Signs: Vital Signs Temperature 97.6 F 01/09/20 06:00 Pulse Rate 73 01/09/20 06:00 Respiratory Rate 20 01/09/20 06:00 Blood Pressure 146/85 01/09/20 06:00 O2 Sat by Pulse Oximetry (%) 96 01/09/20 09:00 Constitutional: Calm Cardiovascular: Yes: Regular Rate and Rhythm Respiratory: Yes: CTA Bilaterally Gastrointestinal Inspection: No: Distention ...Auscultate: Yes: Normoactive Bowel Sounds ...Palpate: No: Hepatomegaly, Soft, Splenomegaly, Tenderness ...Percussion: No: Tympanitic Neurological: Yes: Alert Labs: CBC, BMP 01/08/20 19:00 01/09/20 08:36 INR, PTT INR 0.91 (0.83-1.09) 01/07/20 00:25 Problem List - Problems (1) Gastroparesis Assessment/Plan: Abdominal pain / gastroparesis: Abdominal pain resolved Changed to diabetic, sodium controlled Low fiber diet Relan 5mg PO TID PRN Protonix 20mg once daily Endocrine / renal eval. ? if eval for pheochromocytoma warranted Patient aware he has follow-up appointment with his rustic terrazzo setter 01/30 @ 11AM Code(s): K31.84 - GASTROPARESIS
--- NOTE | 2020-01-09 14:15 | PN ---
Teaching Attending Note Name of Resident: Jose Sousa (Nephrology) ATTENDING PHYSICIAN STATEMENT I saw and evaluated the patient. I reviewed the resident's note and discussed the case with the resident. I agree with the resident's findings and plan as documented. Renal Pt is a 54 year old male with pmhx of dm, gastroparesis, right bka who presents with vomiting. He was found to have LIZA. He is known to me from previous visits. He feel that the nausea is better today. pmhx dm gastroporesis htn pshx right bka Current Medications Generic Name Dose Route Start Last Admin Trade Name Freq PRN Reason Stop Dose Admin Amlodipine Besylate 5 mg 01/08/20 10:00 01/09/20 09:13 Norvasc - PO 5 mg DAILY [facility] Administration Gabapentin 300 mg 01/08/20 14:00 01/09/20 13:38 Neurontin - PO Not Given TID [facility] Sodium Chloride 1,000 mls @ 75 mls/hr 01/09/20 13:00 01/09/20 13:39 1/2 Normal Saline IV 01/10/20 02:19 75 mls/hr ASDIR [facility] Administration Insulin Aspart 1 vial 01/08/20 22:00 01/09/20 11:18 Novolog Vial Sliding Scale - SQ Not Given ACHS [facility] Protocol Labetalol HCl 200 mg 01/08/20 10:00 01/09/20 09:13 Normodyne - PO 200 mg BID [facility] Administration Metoclopramide HCl 5 mg 01/08/20 14:48 Reglan - PO TIDAC PRN NAUSEA Metoprolol Tartrate 5 mg 01/07/20 12:53 Lopressor Injection - IVPB Q4H PRN HYPERTENSION Pantoprazole Sodium 40 mg 01/09/20 10:00 01/09/20 09:13 Protonix - PO 40 mg DAILY [facility] Administration Laboratory Tests 01/08/20 01/09/20 19:00 08:36 Creatinine 2.2 H 1.7 H Last Vital Signs Temp Pulse Resp BP Pulse Ox 97.6 F 73 20 146/85 96 01/09/20 06:00 01/09/20 06:00 01/09/20 06:00 01/09/20 06:00 01/09/20 09:00 cardio s1s2 pulm clear gi soft ext right bka neuro awake and alert Impression: Acute kidney injury Hypertension Gastroparesis Diabetes mellitus II Microcytic anemia History of ostemyelitis S/P right below the knee amputation Plan - cont fluids, change to / - repeat labs in am - liza likely pre-renal - add arb once renal function improves - will need outpt follow up
[2020-01-09 14:53] VITALS: BMI 26.0
--- NOTE | 2020-01-09 15:03 | DS ---
Physical Examination Vital Signs: Vital Signs Temperature 97.6 F 01/09/20 06:00 Pulse Rate 73 01/09/20 06:00 Respiratory Rate 20 01/09/20 06:00 Blood Pressure 146/85 01/09/20 06:00 O2 Sat by Pulse Oximetry (%) 96 01/09/20 09:00 Labs: CBC, BMP 01/08/20 19:00 01/09/20 08:36 Discharge Summary Problems reviewed: Yes Reason For Visit: INTRACTABLE VOMITING,ABDOMINAL PAIN Current Active Problems Diabetic gastroparesis (Acute) Gastroparesis (Acute) Intractable vomiting (Acute) Leukocytosis (Acute) Condition: Stable - Instructions Diet, Activity, Other Instructions: follow up with GI as noted Referrals: Rosalind Giles MD [Primary Care Provider] - 1 Week - Home Medications Comprehensive Discharge Medication List: Ambulatory Orders Pantoprazole Sodium [Protonix -] 40 mg PO DAILY #30 tablet.ec 11/12/19 Sennosides [Senna -] 2 tab PO HS PRN #60 tablet 11/12/19 Acetaminophen [Tylenol .Regular Strength -] 650 mg PO Q4H PRN #90 tablet 12/06/19 Amlodipine Besylate [Norvasc -] 5 mg PO DAILY #30 tablet 12/06/19 Gabapentin [Neurontin -] 300 mg PO TID #90 capsule 12/06/19 Labetalol HCl [Normodyne -] 200 mg PO BID #60 tablet 12/06/19 Ondansetron [Zofran *Odt*] 4 mg SL Q6H PRN #30 tab 12/06/19 Pantoprazole Sodium [Protonix -] 40 mg PO DAILY #30 tab 12/06/19 Polyethylene Glycol 3350 [Miralax 119 gm Btl -] 17 gm PO TID #1 bottle 12/06/19 Metoclopramide HCl [Reglan -] 5 mg PO TIDAC PRN #90 tablet 01/09/20
[2020-01-09 15:45] VITALS: BP 131/78; PULSE 67; TEMP 98.2
== END 2020-01-09 16:08 | disposition home or self-care (01) | DRG 74 ==
LOC: JER 22:43 → INTOOBSV 01-07 03:35 → JERBED 01-07 03:35 → OBSVTOIN 01-07 05:55 → J8W 01-07 08:23
PROVIDERS: ADMIT Internal Medicine; ATTEND Family Medicine
DX: E11.43 Type 2 diabetes mellitus with diabetic autonomic (poly)neuropathy (principal); N17.9 Acute kidney failure, unspecified; E87.2 Acidosis; N39.0 Urinary tract infection, site not specified; K31.84 Gastroparesis; E86.0 Dehydration; R00.0 Tachycardia, unspecified; R10.9 Unspecified abdominal pain; D35.00 Benign neoplasm of unspecified adrenal gland; R11.2 Nausea with vomiting, unspecified; D50.9 Iron deficiency anemia, unspecified; R79.89 Other specified abnormal findings of blood chemistry; I12.9 Hypertensive chronic kidney disease with stage 1 through stage 4 chronic kidney disease, or unspecified chronic kidney disease; E11.22 Type 2 diabetes mellitus with diabetic chronic kidney disease; N18.9 Chronic kidney disease, unspecified; Z89.511 Acquired absence of right leg below knee
CPT/HCPCS: 36415; 71045-TC-FY; 74019-TC-FY; 80048; 80053; 81003; 82962; 83605; 83690; 83735; 84100; 84484; 85025; 85610; 85730; 87086; 87186; 93005; 93010; 97116-GP; 97161-GP; 99285-25; G0378; J0131; U0003

== ENCOUNTER 2020-01-20 16:52 | Inpatient (IN) | payer MEDICARE, OTHER ==
--- NOTE | 2020-01-20 16:58 | PDOC ---
Rapid Medical Evaluation Time Seen by Provider: 01/20/20 16:56 Medical Evaluation: Allergies Allergy/AdvReac Type Severity Reaction Status Date / Time sesame seed Allergy Unverified 01/09/20 15:00 javi seed Allergy Uncoded 01/09/20 15:01 01/20/20 16:56 54 year old male with bileous bloodly vomiting (actively). PE: Unable to assess 2/2 pt condition Plan Labs Pt to precede immediately to the ED for further eval
[2020-01-20] MEDS ORDERED: PANTOPRAZOLE SODIUM 40 MG VIAL IVPUSH ONE ×2 (17:10→17:59)
[2020-01-20] MEDS ORDERED: ONDANSETRON 4 MG/2 ML VIAL IVPUSH ONE ×2 (17:10→21:02)
--- OUTSIDE RECORDS SUMMARY | 2020-01-20 17:32 | XMS ---
:1965 Author Organization [facility] Care Team Providers Name Role [...] Enriquez Unavailable Unavailable Junior, DO Unavailable Unavailable Bg Carrion MD Unavailable Unavailable Bg Carrion MD Unavailable Unavailable Bg Carrion MD Unavailable Unavailable Bg Carrion MD Unavailable Unavailable Bg Carrion MD Unavailable Unavailable MD Jim Unavailable Unavailable MD [...] Carrero Unavailable Unavailable MD Valdemar Unavailable Unavailable Balkir Unavailable Unavailable MD Osei Unavailable Unavailable MD Osei Unavailable Unavailable MD Osei Unavailable Unavailable MD Osei Unavailable Unavailable Other Unavailable Unavailable Zaki, M Unavailable Unavailable Yardeni Unavailable Unavailable MD Francesca Unavailable Unavailable Miguel Ángel Funez Unavailable Unavailable MD Homero Unavailable Unavailable Cornelius CLINTON, Physician A Unavailable Unavailable MD Yelitza Unavailable Unavailable MD Ivett Unavailable Unavailable LUIS MIGUEL DOUGLASS Unavailable Unavailable Kenya Cervantes Unavailable Unavailable MD Deisy Unavailable Unavailable CANONICO Unavailable Unavailable Marizol CLINTON, Physician L Unavailable Unavailable MD Nakul Unavailable Unavailable Jeremie Unavailable Unavailable CHANTAL, N Unavailable MD Yassine Unavailable Unavailable Jon Back Unavailable Unavailable MD Deborah Unavailable Unavailable Kye R Unavailable Unavailable Adin, CUT TOBACCO BULKER Unavailable Unavailable Arbolino Unavailable Unavailable Angel M Unavailable Unavailable MD PRETTY Unavailable Unavailable JeremieMaynor beltre MD Unavailable Unavailable AurBg almazan MD Unavailable Unavailable AurisiccBg noriega MD Unavailable Unavailable AurisiccBg noriega MD Unavailable Unavailable AurisicchiBg hutchinson MD Unavailable Unavailable AurisicchiBg hutchinson MD Unavailable Unavailable Evangelista, J DO Unavailable Unavailable Evangelista, J DO Unavailable Unavailable Evangelista, J DO Unavailable Unavailable Evangelista, J DO Unavailable Unavailable Reilly Smith Unavailable Unavailable Dionisio Unavailable Unavailable Care Unavailable Unavailable Joe Unavailable Unavailable Solitario CLINTON, Physician Unavailable Unavailable MD Kaleb Unavailable Unavailable MD Montrell Unavailable Unavailable Mic CLINTON, Physician B Unavailable Unavailable SARA SCOTT Unavailable Unavailable ER Unavailable Unavailable MD DONELL Unavailable Unavailable Kanoff, Ksai Unavailable Unavailable Leda, DO Unavailable Unavailable Cappa, DPM Unavailable Unavailable MD Mago Unavailable Unavailable BICHARA Unavailable Unavailable MD Adriana Unavailable Unavailable Shelli Unavailable Unavailable MD Dinorah Unavailable Unavailable Close, M Unavailable Unavailable Church, C Unavailable Unavailable Conrad, N Unavailable Unavailable MD SWATHI Unavailable Unavailable Rachael Brunson MD Unavailable Unavailable Ag Unavailable Unavailable MD Xiao Unavailable Unavailable Escobar Lares Unavailable Unavailable Edwin, CUT TOBACCO BULKER Unavailable Unavailable Joe, M Unavailable Unavailable Re-disclosure Warning The records that [...] is protected by Article 27-F of the [facility] Public Health law. If you continue you may haveaccess to information: Regarding HIV / AIDS; Provided by facilities licensed or operated by the [facility] Office of Mental Health; or Provided by the [facility] Office for People With Developmental Disabilities. If such information is present, then the following [facility] mandated warning applies: This information has [...] law may result in a fine or group home sentence or both. A general authorization for the release of medical or other information is NOT sufficient authorization for further disclosure. Allergies and Adverse Reactions Type Description Substance Reaction Status Data Source(s ) 1 sesame oil sesame oil Itching (mild) NEXTGEN ([facility]) 1 SIMON SEED SIMON SEED Nausea / Vomiting NEXTGEN (moderate) 3 ([facility]) Food allergy SESAME OIL SESAME OIL [facility] Drug allergy Dilaudid Dilaudid exacerbate [facility] gastroparesis - [facility] Drug allergy No Known No Known [facility] Allergies Allergies - [facility] Allergy to Allergy to No known drug NETSMART substance substance allergy ([facility]) simon seed simon seed VOMITING [facility] Food allergy sesame seed sesame seed ANAPHYLAXIS [facility] Encounters Encounter Providers Location Date Indications Data Source(s ) Outpatient Attender: Shanon 01/08/2020 NEXTGEN ([facility] HollanderReferrer: 03:20:00 PM [place] [facility]) Outpatient Attender: Shanon 01/01/2020 NEXTGEN ([facility] HollanderReferrer: 11:26:00 AM [place] [facility]) Outpatient Attender: Shanon 12/31/2019 NEXTGEN ([facility] [place]aki 11:08:00 AM [place] [facility] Outpatient Attender: Shanon 12/22/2019 NEXTGEN ([facility] HollanderReferrer: 04:48:00 PM Medic al [place] [facility]) Outpatient Attender: Shanon 12/11/2019 NEXTGEN ([facility] HollanderReferrer: 03:16:00 PM Medic al [place] [facility]) Outpatient Attender: Perico 12/03/2019 NEXTGEN ([facility] BillyReferrer: 08:00:00 AM Medica l - [place] [facility]) Outpatient Attender: Merrick 11/28/2019 NEXTGEN ([facility] Damariseferrer: 01:45:00 PM Medi beata - [place] [facility]) Outpatient Attender: Shanon 11/03/2019 NEXTGEN ([facility] JohannaanderReferrer: 03:15:00 PM Medic al [place] [facility]) Outpatient Attender: Parantap 11/03/2019 NEXTGE N ([facility] Joe 02:28:00 PM [facility] Outpatient Attender: Shanon 11/03/2019 NEXTGEN ([facility] Zaki 12:54:00 PM [facility] Outpatient Attender: Shanon 10/31/2019 NEXTGEN ([facility] HollanderReferrer: 02:54:00 PM Medic al [place] [employer]) Outpatient Attender: Shanon 10/30/2019 NEXTGEN ([facility] HollanderReferrer: 04:46:00 PM Medic [place] [employer] [facility] Outpatient Attender: Shanon 10/30/2019 NEXTGEN ([facility] Zaki 11:30:00 AM Medical [place] [facility]) Outpatient Attender: Shanon 10/29/2019 NEXTGEN ([facility] JohannaanderAttender: 03:30:00 PM Medic [facility]) KanoffReferrer: Shanon Haines Outpatient Attender: Shanon 10/28/2019 NEXTGEN ([facility] HollanderReferrer: 10:47:00 AM Medic sd - [facility] [employer] ED[facility] Medical [facility]) Outpatient Attender: Luz 10/28/2019 NEXTGEN ( [facility] YasunileniReferrer: 12:00:00 AM [facility]) Outpatient Attender: Juaquin 10/27/2019 NEXTGEN ([facility] Gamarnik 12:55:00 PM [facility]) Outpatient Attender: Lefty 10/26/2019 NEXTGEN ([facility] Balkir 02:38:00 PM Medical [place] [facility]) Outpatient Attender: Lefty 10/26/2019 NEXTGEN ([facility] Robeferrer: 12:00:00 AM [facility]) Outpatient Attender: Juaquin 10/25/2019 NEXTGEN ([facility] Gamarnik 03:42:00 PM Medical [place] [facility]) Outpatient Attender: Shanon 10/24/2019 NEXTGEN ([facility] Zaki 02:01:00 PM Medical [place] [facility]) Emergency Attender: Lucy ICU-EMERG 10/23/2019 VOMITING/SOB MHS - Eduardo Elainetender: 03:29:00 AM Hospi grazyna Franz EDT - MDAttender: Doctor 10/23/2019 Other 04:18:00 PM EDT VOMITING/SOB Patient discharged. Outpatient Attender: Shanon 10/17/2019 12:56:00 PM NEXTGEN ([facility] Zaki EDT Medical - [facility] Medical [facility]) Outpatient Attender: Shanon 10/16/2019 03:04:00 PM NEXTGEN ([facility] ZakiReferrer: EDT Medica l - [facility]) Outpatient Attender: Merrick 10/16/2019 11:30:00 AM NEXTGEN ([facility] Damariseferrer: EDT Medic al - [facility]) Outpatient Attender: Shanon 10/15/2019 04:17:00 PM NEXTGEN ([facility] EDT Medical - [facility]) Outpatient Attender: Shanon 10/10/2019 04:04:00 PM NEXTGEN ([facility] EDT Medical - [facility] Medical [facility]) Outpatient Attender: Shanon 10/08/2019 09:18:00 AM NEXTGEN ([facility] Zaki EDT Medical - [facility]) Outpatient Attender: Juaquin 10/01/2019 01:39:00 PM NEXTGEN ([facility] ArminReferrer: EDT Medical - [facility]) Outpatient Attender: Aracely Joe 10/01/2019 01:17:00 PM NEXTGEN ([facility] EDT Medical - [facility]) Outpatient Attender: Sally 09/30/2019 03:35:00 PM NEXTGEN ([facility] Johnolino EDT Medical [facility]) Outpatient Attender: Shanon 09/30/2019 08:55:00 AM NEXTGEN ([facility] Zaki EDT Medical [facility]) Outpatient Attender: Sara 09/27/2019 12:00:00 AM NEXTGEN ([facility] AleahReferrer: Sara HARDINGT Ma dical [facility] Medical [facility]) Outpatient Attender: Namrata Mcguire NP 09/26/2019 03:58:00 PM NEXTGEN ([facility] EDT Medical - [facility] ) Outpatient Attender: Erasmo 09/25/2019 12:00:00 AM NEXTGEN ([facility] HalbertReferrer: Erasmo EDT M edical - [facility]) Outpatient Attender: Aracely 09/25/2019 12:00:00 AM NEXTGEN ([facility] GuptaReferrer: Parantap EDT M [facility]ical [facility] Outpatient Attender: Namrata Mcguire NP 09/24/2019 02:02:00 PM NEXTGEN ([facility] EDT [facility] - [facility]) Outpatient Attender: Juaquin Funez 09/24/2019 02:55:00 AM NEXTGEN ([facility] EDT [facility] - [facility] ) Outpatient Attender: Salvador 09/24/2019 12:00:00 AM NEXTGEN ([facility] PatelReferrer: Salvador EDT Medic al - [facility]) Outpatient Attender: Shanon 09/19/2019 11:30:00 AM NEXTGEN ([facility] HollanderReferrer: EDT [facility]) Outpatient Attender: Maurice 09/16/2019 01:00:00 PM NEXTGEN ([facility] AliseReferrer: EDT Medica l - [facility]) Outpatient Attender: Juaquin 09/11/2019 10:15:00 AM NEXTGEN ([facility] ArminReferrer: Juaquin ANGULO Ma dical - [facility]) Outpatient Attender: Shanon 09/10/2019 11:01:00 AM NEXTGEN ([facility] Zaki EDT Medical - [facility] ) Outpatient Attender: Juaquin 09/09/2019 02:37:00 PM NEXTGEN ([facility] GamarnikReferrer: EDT Medical - [facility] Medical [facility]) Outpatient Attender: Sally 09/08/2019 06:23:00 PM NEXTGEN ([facility] Arbolino EDT Medical - [facility] ) Outpatient Attender: Erasmo Back 09/08/2019 01:07:00 PM NEXTGEN ([facility] EDT [facility] - [facility]) Outpatient Attender: Juaquin 09/08/2019 01:05:00 PM NEXTGEN ([facility] GamarnikReferrer: EDT Medical - [facility]) Outpatient Attender: Erasmo 09/08/2019 12:00:00 AM NEXTGEN ([facility] WongReferrer: Erasmo ANGULO M edical - [facility]) Outpatient Attender: Juaquin Funez 09/07/2019 11:53:00 AM NEXTGEN ([facility] [place] [facility] [facility]) Outpatient Attender: Maurice 09/06/2019 12:44:00 PM NEXTGEN ([facility] Carrero EDT Medical - [facility]) Outpatient Attender: Juaquin 09/06/2019 12:00:00 AM NEXTGEN ([facility] GamsidReferrer: Juaquin ANGULO Ma dical - [facility]) Outpatient Attender: Maurice 09/04/2019 05:15:00 PM NEXTGEN ([facility] Carrero EDT Medical - [facility]) Outpatient Attender: Valente 09/04/2019 12:00:00 AM NEXTGEN ([facility] VerasReferrer: EDT Medical - [facility]) Outpatient Attender: Juaquin 09/03/2019 12:53:00 PM NEXTGEN ([facility] GamsidReferrer: EDT Medical - [facility]) Outpatient Attender: Cole Fishman 09/03/2019 10:32:00 AM NEXTGEN ([facility] EDT Medical - [facility]) Outpatient Attender: Cole 09/03/2019 12:00:00 AM NEXTGEN ([facility] KyeReferrer: Cole ANGULO M edical - [facility]) Outpatient Attender: Maurice 09/03/2019 12:00:00 AM NEXTGEN ([facility] AliseReferrer: Cole EDT Medical - [facility]) Outpatient Attender: Marianela 09/02/2019 07:30:00 PM NEXTGEN ([facility] Heath EDT Medical [place] [facility]) Outpatient Attender: Namrata Mcguire NP 08/29/2019 05:43:00 PM NEXTGEN ([facility] EDT [facility] [place] [facility] [facility]) Outpatient Attender: John 08/28/2019 12:00:00 AM NEXTGEN ([facility] CollierReferrer: John EDYelitza M edical - [place] [facility]) Outpatient Attender: Luz Donis 08/27/2019 04:28:00 PM NEXTGEN ([facility]T [facility] [place] [facility]) Outpatient Attender: Luz 08/27/2019 12:00:00 AM NEXTGEN ([facility] YardeniReferrer: Luz EDT Me dical - [place] [facility]) Outpatient Attender: Juaquin Funez 08/26/2019 01:46:00 AM NEXTGEN ([facility] EDT [facility] - [place] [facility]) Outpatient Attender: Juaquin Funez 08/15/2019 06:21:00 PM NEXTGEN ([facility] EDT [facility] [place] [facility] [facility]) Outpatient Attender: Shanon 08/14/2019 01:46:00 PM NEXTGEN ([facility] HollanderReferrer: EDT [facility]ica [facility] Outpatient Attender: Juaquin 08/14/2019 10:15:00 AM NEXTGEN ([facility] ArminReferrer: Juaquin HARDINGT Ma dical - [place] [facility]) Outpatient Attender: Juaquin 08/14/2019 12:00:00 AM NEXTGEN ([facility] ArminReferrer: Juaquin HARDINGT Ma dical - [place] [facility]) Outpatient Attender: Juaquin Funez 08/13/2019 12:28:00 PM NEXTGEN ([facility] EDT [facility] [place] [facility] [facility]) Outpatient Attender: Aracely Joe 08/11/2019 12:02:00 PM NEXTGEN ([facility] EDT [facility] [place] [facility]) Outpatient Attender: Juaquin Funez 08/11/2019 02:10:00 AM NEXTGEN ([facility] EDT [facility] [place] [facility]) Outpatient Attender: Aracely 08/11/2019 12:00:00 AM NEXTGEN ([facility] GuptaReferrer: Parantap EDT M edical - [facility]) Outpatient Attender: Juaquin Funez 08/07/2019 12:23:00 PM NEXTGEN ([facility] EDT Medical - [facility]) Outpatient Attender: Shanon 08/07/2019 12:14:00 PM NEXTGEN ([facility] HollanderReferrer: EDT Medica l - [facility] [facility]) Outpatient Attender: Juaquin Funez 08/06/2019 01:20:00 PM NEXTGEN ([facility] EDT Medical - [facility]) Outpatient Attender: Aracely Joe 08/05/2019 09:55:00 AM NEXTGEN ([facility] EDT Medical - [facility]) Outpatient Attender: Aracely 08/05/2019 12:00:00 AM NEXTGEN ([facility] GuptaReferrer: Parantap EDT M edical - [facility]) Outpatient Attender: Carlin Land 08/01/2019 03:52:00 PM NEXTGEN ([facility] EDT Medical - [facility]) Outpatient Attender: Juaquin Funez 07/30/2019 04:41:00 PM NEXTGEN ([facility] EDT Medical - [facility]) Outpatient Attender: Carlin Land 07/28/2019 07:20:00 PM NEXTGEN ([facility] EDT Medical - [facility]) Outpatient Attender: Carlin 07/28/2019 12:00:00 AM NEXTGEN ([facility] LeeReferrer: Reyes EDT [facility] Outpatient Attender: Juaquin Funez 07/27/2019 11:51:00 AM NEXTGEN ([facility] EDT Medical - [facility]) Outpatient Attender: Juaquin Funez 07/05/2019 11:59:00 AM NEXTGEN ([facility] EDT Medical - [facility]) Outpatient Attender: Juaquin Funez 07/03/2019 03:27:00 AM NEXTGEN ([facility] EDT Medical - [facility]) Inpatient Attender: Physician 06/22/2019 11:52:11 PM [facility] Shanon Fontana EDT - 06/25/2019 [facility] MDAttender: Physician 04:20:00 PM EDT Namrata Haile MDAttender: Myra Naidu DOAttender: ERAdmitter: Physician Shanon Fontana MDConsultant: Lai Chao MD Patient discharged. Outpatient Attender: Nunu 06/09/2019 12:00:00 AM NEXTGEN ([facility] CloseReferrer: Nunu [facility] dical - [facility]) Outpatient Casino Cage Cashier: Lavon 06/06/2019 12:00:00 AM NEXTGEN (Caremoabdirahman Carrion MD [facility]) Outpatient Attender: Lai 06/05/2019 12:00:00 AM NEXTGEN ([facility] JeremieReferrer: Juaquin MEDINA [facility]) Outpatient [place] Cashier: Lavon 06/05/2019 12:00:00 AM NEXTGEN (Care[facility] Carrion MD [facility]) Inpatient Attender: Physician 06/04/2019 07:45:31 PM [facility] Dequan Jerez EST - 06/10/2019 [facility] MDAttender: Physician Ott 02:40:00 PM EST Mic MDAttender: Glen Carmonaender: ERAdmitter: Physician Dequan Jerez MDConsultant: Lavon Carrion MDConsultant: Physician Sara Shields MDConsultant: Lai Chao MD Patient discharged. Emergency Attender: GAYATRI 06/04/2019 04:54:00 WEAKNESS, VOMITING [place] CHANTAL PM EST - [place]04/2019 [facility] 06:34:00 PM EST WE[place], [place]IT[place] Patient discharged. Outpatient Attender: TYLER [facility]2019 [facility], 06:00:00 AM EST [facility] Outpatient Attender: TYLER 04/24/2019 [facility] TYLER, 10:37:00 AM [facility] Outpatient Attender: Mariano Eddy DPRonnell 04/21/2019 FOOT WOUND [place] 09:57:00 AM [facility] FOOT WOUND Outpatient Attender: TYLER 04/10/2019 11:22:00 [facility] Outpatient 03/31/2019 09:05:00 PM [place] TSGANESHT ([facility]) Outpatient Attender: TYLER 03/26/2019 09:34:00 AM H33.01 2 [facility] SARAAdmitter: [facility] SARA SCOTTReferrer: SARA SCOTT H33.012 Outpatient Attender: TYLER 03/26/2019 06:00:00 H33.012 [facility] MAC SCOTT [facility] Center[facility] TYLER [facility] SARA H33.012 Outpatient Attender: Mehrdad BENDER 03/25/2019 11:24:00 AM [facility] Susan Hoff MDAdmitter: EST - 04/21/[address] [facility] 12:46:00 PM EST Patient discharged. Attender: 03/25/2019 [facility] [id number] 11:24:00 AM [facility] [id number] [facility] Outpatient Attender: SARA SCOTTAdmitter: 03/24/2019 [place] SARA SCOTTReferrer: TYLER 12:17:00 PM [facility] Emergency Attender: Alessandro Franz MDAttender: ICU- 03/11/2019 A NXIETY MHS - New Doctor Other GEMMA 08:48:00 PM Carolyn Dunham [facility] - Hospital 03/12/2019 10:51:00 AM EST ANXIETY Patient discharged. Emergency Attender: Massimo ICU-EMERG 03/08/2019 ANXIETY-WAS HERE M HS - Eduardo Walker MDAttender: 08:18:00 PM EST YESTERDAY Freddy gallego Doctor Other - 03/08/2019 Hospital 09:19:00 PM EST ANXIETY-WAS HERE YESTERDAY Patient discharged. Emergency Attender: Ravi ICU-EMERG 03/06/2019 HIGH ANXIETY MHS - N adán GarciaaAtkellyder: Doctor 08:48:00 PM EST - Carolyn Other 03/07/2019 Hospital 08:00:00 AM EST HIGH ANXIETY Patient discharged. Inpatient Attender: JESSICA V-2NW 02/28/2019 07:00:00 [facility] OLSENAdmitter: KRISTINA [facility] Admission cancelled. Disregard status an d admitted date. Attender: 02/28/2019 [facility] [id number] 07:00:00 PM [place] [id number] Outpatient Attender: KRISTINA CURRIEttender: NAPOLEON 02/28/2019 [facility] LAURIE ECHEVARRIAAdmitter: SIMONE 04:15:00 PM EST - [facility] 04/10/2019 11:55:00 AM EST Patient discharged. Attender: 02/28/2019 [facility] [id number] 04:15:[address] Emergency Attender: Wesley PalaciosonAttender: 5T-EM 02/24/2019 PAIN [facility] - [place] Other ERG 01:23:00 AM EST LEFT LEG Kwasi - 02/24/2019 Hospital 02:20:00 AM EST PAIN LEFT LEG Patient discharged. Outpatient Attender: Shy Renteria 02/14/2019 10:02:00 AM HO SP F/U Georgina Guy MD [facility] Hospital HOSP F/U Outpatient Attender: Juaquin 02/12/2019 OLGA (C daphniemoabdirahman Funez 12:32:00 PM EST Medical - [facility] ) Inpatient Attender: 01/29/2019 INTRACTABLE [place] Mary Ann Olivas 06:41:00 PM EDT - VOMITING/[place] I Hospital MDAttender: 02/11/2019 Brianna Sullivan 10:13:00 AM EST MDAttender: Nancy Brunson MDAttender: Juan Torre MDAdmitter: Nancy Brunson MDConsultant: Say Valentin MDConsultant: Shirin Stock MDConsultant: Sean Pineda CUT TOBACCO BULKER INTRACTABLE VOMITING/LIZA Patient discharged. Outpatient Attender: Juaquin 01/21/2019 05:26:00 N EXTGEN ([facility] Gamarnik PM EDT Medical - [facility]) Inpatient Attender: Joce 12/27/2018 08:06:00 RIGHT LE DIABETIC [facility] MDAttender: PM EDT - 01/20/2019 [facility] KofiImer 11:32:00 AM EDT MDAttender: Anette Zhao MDAttender: MAU DOUGLASSAdmitter: Anette Zhao MDConsultant: Say Valentin MDConsultant: Sean Pineda CUT TOBACCO BULKER RIGHT LE DIABETIC [facility] Patient discharged. Inpatient Attender: Manas 12/20/2018 08:36:00 AM [facility] MDAtt[facility]: EDT - 12/27/2018 [facility] MDAttender: 10:56:00 AM EDT Calvin Mercedes MDAttender: Monica Manuel MDAttender: Avery Pacheco DOAdmitter: Keysha Tompkins DOConsultant: Yonas Wright MDConsultant: Calvin Mercedes MD SEPSIS Patient discharged. Inpatient Attender: Aron 12/06/2018 INTRACTABLE NAUSEA [facility] MDAttender: 03:30:00 AM EDT - AND VOMIT ING; [facility] 12/18/2018 CHRONIC OSTEOMYEL MDAttender: Avery 02:55:00 PM EDT Junior DOAdmitter: Aron Rangelaham MDConsultant: Sean Pineda NPConsultant: Jennifer Oakley CUT TOBACCO BULKER INTRACTABLE NAUSEA AND VOMITING; CHRONIC OSTEOMYEL Patient discharged. Inpatient Attender: Aron 11/14/2018 12:00:00 OSTEOMTEL ITIS [facility] MDAttender: PM EDT - 11/25/2018 [facility] Brianna Sullivan 04:48:00 PM EDT MDAttender: Sy Mota MDAttender: Idris Simms MDAttender: Mynor Root MDAdmitter: Keegan Aldrich MDConsultant: Emmett Ma MD OSTEOMTELITIS Patient discharged. Outpatient Attender: Mariano 08/16/2018 12:00:00 N EXTGEN ([facility] Fabianaferrer: Mariano AM EDT [facility] Outpatient Attender: Juaquin 08/11/2018 12:00:00 N EXTGEN ([facility] GamsidReferrer: Abdirahman AM EDT M edical - [facility]) Functional Status Medications Medication Brand Start Product Dose Route Administrative Pharmacy [facility] Indications Reaction Description Data Name Date Form Instructions Instructions Source(s) Metoclopram METOCL take 1 tablet RP NEXTGEN nae 10 MG OPRAMI by oral route 3 ([facility] Oral Tablet DE HCL times every day Medical - 10 mg 10 mg 30 minutes [facility] before meals Medical and at bedtime Group PC) This may be an active medication. No end date is available. Start date above may not reflect actual date the medication was s tarted. prucalopride 1 MG MOTEGRITY 12/22/2019 take 2 RP NEXTGEN Oral Tablet 12:00:00 AM EDT tablet by ([facility] [Motegrity] 1 mg oral route Medical - Mt 1 mg every day [facility]) This may be an active medication. No end date is available. rifaximin 550 MG XIFAXAN 12/11/2019 take 1 RP NEXTGEN Oral Tablet 12:00:00 AM EDT tablet by ([facility] [XIFAXAN] 550 mg oral route Medical - Mt 550 mg every 8 [facility] hours. Group PC) This may be an [...] route Medic al - Mt every day [facility]) This may be an active [...] M edical - Mt Tablet 325 mg [facility] (65 mg iron) Group P C) 325 mg (65 mg iron) This may be an active medication. No end date is available. 1 gram/10 mL 1 09/08/2019 take 10 RP NEXTGEN gram/10 mL 12:00:00 AM EDT milliliter by ([facility] oral route 4 Medical - [facility] times every day [facility] on an empty Group ) stomach 1 hour before meals and at bedtime This may be an active medication. No end date is available. Losartan LOSARTAN 08/15/2019 take 1 RP NEXTGEN Potassium 25 POTASSIUM 12:00:00 AM EDT tablet by ([facility] MG Oral Tablet oral route Medical - Mt 25 mg 25 mg every day [facility] ) This may be an active medication. No end date is available. Osmotic 24 HR NIFEDIPINE ER take 1 tablet RP NEXTGEN ([facility] Nifedipine 30 MG by oral route Medical - [place] Extended Release every day Medical Group ) Oral Tablet 30 mg 30 mg This may be an active medication. No end date is available. Start date above may not reflect actual date the medication was s tarted. 200 mg/5 mL 200 take 5 milliliter by RP NEXTGEN ([facility] mg/5 mL oral route 3 times Medical - [place] every day 30 minutes Medical Group ) before meals This may be an active medication. No end date is available. Start date above may not reflect actual date the medication was s tarted. Sucralfate 1000 MG SUCRALFATE take 1 tablet by RP NEXTGEN ([facility] Oral Tablet 1 gram 1 oral route 3 Medical - [place] gram times every day [facility] ) on an empty stomach This may be [...] Refill(s), [facility] - Chewable tablet, EDT [place] Tablet chewable [facility] simethicone Center 80 mg oral tablet, chewable Acetaminophen acetaminophen 06/25/2019 Tablet 650.0 Oral [place] 325 MG Oral 325 mg oral 09:57:00 AM mg 650 mg, = 2 tab, Oral, q6hr, 0 Refill(s), Pain Scale 1 - 3 Health - Tablet tablet EDT [place] acetaminophen Hospit al 325 mg oral Center tablet Metoclopramid Reglan 10 mg 06/10/2019 Tablet 10.0 Oral [place] e 10 MG Oral oral tablet 09:09:00 AM mg 10 mg, = 1 tab, Oral, Before meals, # 90 tab, 0 Refill(s), Pharmacy: [facility]/pharmacy #[id number], 1 tab Oral Before meals Health - Tablet Reglan EST [place] 10 mg oral Hospital tablet [place] Lisinopril 20 lisinopril 20 06/10/2019 Tablet 20.0 Oral [place] MG Oral mg oral 09:09:00 AM mg 20 mg, = 1 tab, Oral, Daily, # 30 tab, 0 Refill(s), Pharmacy: [facility]/pharmacy #[id number], 1 tab Oral Daily Health - Tablet tablet EST [place] lisinopril 20 Hospit al mg oral Center tablet Hydralazine hydrALAZINE 06/10/2019 Tablet 25.0 Oral [place] Hydrochloride 25 mg oral 09:09:00 AM mg 25 mg, = 1 tab, Oral, q8hr, # 90 tab, 0 Refill(s), Pharmacy: [facility]/pharmacy #[id number], 1 tab Oral q8hr Health - 25 MG Oral tablet EST [facility] hydrALAZINE Center 25 mg oral tablet carvedilol carvedilol 06/10/2019 Tablet 6.25 Oral [place] 6.25 MG Oral 6.25 mg oral 09:09:00 AM mg 6.25 mg, = 1 tab, Oral, BID, # 60 tab, 0 Refill(s), Pharmacy: [facility]/pharmacy #[id number], 1 tab Oral BID Health - Tablet tablet [facility] carvedilol [facility] 6.25 mg oral Center tablet metformin [id number] 06/05/2019 Tablet 500.0 Oral [place] 01:15:00 AM mg 500 mg, Oral, BID, 0 Refill(s) Health - [facility] Trazodone traZODone 04/16/2019 1.0 Oral ac NETSMART Hydrochloride hydrochloride 05:00:00 AM Tablet ti ([place] 50 MG Oral EST [facility]) Clonazepam KlonoPIN - 04/16/2019 1 ORAL co Kl onoPIN - [facility] 0.5 MG Oral 0.5 MG ORAL 12:00:00 AM Tablet mp 0.5 MG ORAL [facility] Tablet Tablet EST le Tablet [facility] [Klonopin] te d Clonazepam KlonoPIN - 04/03/2019 1 ORAL co Kl onoPIN - [facility] 0.5 MG Oral 0.5 MG ORAL 12:00:00 AM Tablet mp 0.5 MG ORAL [facility] Tablet Tablet EST le Tablet [facility] [Klonopin] te d Fluoxetine 10 PROzac [...] Lorazepam 1 Ativan 1 03/08/2019 1 {tab(s)} [id number] aborted Ativan [facility] Oral mg oral [...] machinery. Lorazepam 1 Ativan 1 02/24/2019 1 [id number] aborted Ativan [facility] Oral mg oral 02:02:37 AM {tab(s)} Health Tablet tablet EST System [Ativan] Ativan 1 mg oral tablet Metformin Metformin 02/10/2019 TAB 500 mg ORAL completed [facility] hydrochlorid Hcl 02:28:00 PM LET [place] e 500 MG EST Hospital Oral Tablet [Glucophage] Metformin Hcl Metocloprami Metoclopr 02/10/2019 TAB 10 mg ORAL completed [facility] de 10 MG amide Hcl 02:28:00 PM LET [place] Oral Tablet EST Hospital Metocloprami de Hcl Metformin Metformin 02/10/2019 TAB 500 mg ORAL active [facility] hydrochlorid Hcl 02:28:00 PM LET [place] e 500 MG EST Hospital Oral Tablet [Glucophage] Metformin Hcl Metocloprami Metoclopr 02/10/2019 TAB 10 mg ORAL active [facility] de 10 MG amide Hcl 02:28:00 PM LET [place] Oral Tablet EST Hospital Metocloprami de Hcl [...] 30 MG e Hcl 05:15:00 PM SUL [place] Delayed EST E, Hospital Release Oral EXT Capsule END [Cymbalta] ED Duloxetine REL Hcl EAS E Metoprolol Metoprolo 02/09/2019 TAB 25 mg ORAL completed [facility] Tartrate 25 l 05:15:00 PM LET [facility] MG Oral Tartrate EST Hospital Tablet duloxetine Duloxetin 02/09/2019 CAP 30 mg ORAL completed [facility] 30 MG e Hcl 05:15:00 PM SUL [place] Delayed EST E, Hospital Release Oral EXT Capsule END [Cymbalta] ED Duloxetine REL Hcl EAS E Amlodipine Amlodipin 02/09/2019 TAB 10 mg ORAL completed [facility] 10 MG Oral e 05:15:[address] Tablet Besylate EST Hospital [[facility]] Amlodipine Besylate Lisinopril Lisinopri 02/09/2019 TAB 40 mg ORAL active [facility] 20 MG Oral l 05:15:[address] Tablet EST Hospital Metoprolol Metoprolo 02/09/2019 TAB 25 mg ORAL active [place] Tartrate 25 l 05:15:00 PM LET [facility] MG Oral Tartrate EST Hospital Tablet Hydralazine Hydralazi 02/09/2019 TAB 75 mg ORAL completed [facility] Hydrochlorid ne Hcl 05:15:00 PM LET [place] e 25 MG Oral EST Hospita l Tablet Hydralazine Hcl Hydralazine Hydralazi 02/09/2019 TAB 75 mg ORAL active [facility] Hydrochlorid ne Hcl 05:15:00 PM LET [place] e 25 MG Oral EST Hospita l Tablet Hydralazine Hcl pantoprazole Pantopraz 02/09/2019 TAB 40 mg ORAL active [facility] 40 MG ole 05:15:00 PM LET [place] Delayed Sodium EST Hospital Release Oral Tablet [Protonix] Pantoprazole Sodium pantoprazole Pantopraz 02/09/2019 TAB 40 mg ORAL completed [facility] 40 MG ole 05:15:00 PM LET [place] Delayed Sodium EST Hospital Release Oral Tablet [Protonix] Pantoprazole Sodium Amlodipine Amlodipin 02/09/2019 TAB 10 mg ORAL active [facility] 10 MG Oral e 05:15:[address] Tablet Besylate EST Hospital [[facility]] Amlodipine Besylate Lisinopril Lisinopri 02/09/2019 TAB 40 mg ORAL completed [facility] 20 MG Oral l 05:15:[address] Tablet EST Hospital pregabalin Pregabali 01/16/2019 CAP 75 mg ORAL completed [facility] 75 MG Oral n 12:30:[address] Capsule EDT E Hospital [Lyrica] Pregabalin Acetaminophe Acetamino 01/16/2019 TAB 975 mg ORAL completed [facility] n 325 MG phen 12:30:00 PM LET [facility] Oral Tablet EDT Hospital Insulin Insulin 01/16/2019 UNS 15 SUBCUTANE completed [facility] Glargine 100 Glargine 12:30:00 PM PEC OUS [place] UNT/ML EDT IFI [facility] Injectable ED Solution [Lantus] Lisinopril Lisinopri 01/16/2019 TAB 40 mg ORAL completed [facility] 20 MG Oral l 12:30:[address] Tablet EDT Hospital duloxetine Duloxetin 01/16/2019 CAP 30 mg ORAL completed [facility] 30 MG e Hcl 12:30:00 PM SUL [place] Delayed EDT E, Hospital Release Oral EXT Capsule END [Cymbalta] ED Duloxetine REL Hcl EAS E Metocloprami Metoclopr 01/16/2019 TAB 10 mg ORAL completed [facility] de 10 MG amide Hcl 12:30:00 PM LET [place] Oral Tablet EDT Hospital Metocloprami de Hcl Nystatin 100 Nystatin 01/16/2019 POW 1 TOPICAL completed [facility] UNT/MG 12:30:00 PM PAZ {Applicat [facility] l[facility] Topical EDT or} Hospital Powder [Nyamyc] Insulin Insulin 01/16/2019 UNS 15 SUBCUTANE completed [facility] Glargine 100 Glargine 12:30:00 PM PEC OUS [place] UNT/ML EDT [facility] Injectable ED Solution [Lantus] Hydromorphon Hydromorp 01/16/2019 TAB 4 mg ORAL completed [facility] e kimberly Hcl 12:30:00 PM LET [facility] Hydrochlorid EDT Hospita l e 4 MG Oral Tablet [Dilaudid] Hydromorphon e Hcl Insulin Insulin 01/16/2019 UNS 0 SUBCUTANE completed [facility] Lispro 100 Human 12:30:00 PM PEC OUS [facility] UNT/ML Lispro EDT [facility] Injectable ED Solution [Humalog] Insulin Human Lispro pantoprazole Pantopraz 01/16/2019 TAB 40 mg ORAL completed [facility] 40 MG ole 12:30:00 PM LET [place] Delayed Sodium EDT Hospital Release Oral Tablet [Protonix] Pantoprazole Sodium Metocloprami Metoclopr 01/16/2019 TAB 10 mg ORAL completed [facility] de 10 MG amide Hcl 12:30:00 PM LET [place] Oral Tablet EDT Hospital Metocloprami de Hcl Lisinopril Lisinopri 01/16/2019 TAB 40 mg ORAL completed [facility] 20 MG Oral l 12:30:[address] Tablet EDT Hospital Nystatin 100 Nystatin 01/16/2019 POW 1 TOPICAL completed [facility] UNT/MG 12:30:00 PM PAZ {Applicat P lains Topical EDT or} [facility] Powder [Nyamyc] Metoprolol Metoprolo 01/16/2019 TAB 25 mg ORAL completed [facility] Tartrate 25 l 12:30:00 PM LET [facility] MG Oral Tartrate EDT Hospital Tablet Hydralazine Hydralazi 01/16/2019 TAB 75 mg ORAL completed [facility] Hydrochlorid ne Hcl 12:30:00 PM LET [place] e 25 MG Oral EDT Hospita l Tablet Hydralazine Hcl Lidocaine Lidocaine 01/16/2019 PAT 1 {Patch} TOPICAL completed [facility] Hydrochlorid 12:30:00 PM CH [place] e 0.05 MG/MG EDT Hospita l Transdermal Patch [Lidoderm] Lidocaine Lidocaine 01/16/2019 PAT 1 {Patch} TOPICAL completed [facility] Hydrochlorid 12:30:00 PM CH [place] e 0.05 MG/MG EDT Hospita l Transdermal Patch [Lidoderm] Insulin Insulin 01/16/2019 UNS 15 SUBCUTANE completed [facility] Glargine 100 Glargine 12:30:00 PM PEC OUS [place] UNT/ML EDT [facility] Hospital Injectable ED Solution [Lantus] Hydralazine Hydralazi 01/16/2019 TAB 75 mg ORAL completed [facility] Hydrochlorid ne Hcl 12:30:00 PM LET [place] e 25 MG Oral EDT Hospita l Tablet Hydralazine Hcl Lisinopril Lisinopri 01/16/2019 TAB 40 mg ORAL completed [facility] 20 MG Oral l 12:30:[address] Tablet EDT [facility] Hydromorphon Hydromorp 01/16/2019 TAB 4 mg [...] 30 MG e Hcl 12:30:00 PM SUL [place] Delayed EDT E, Hospital Release Oral EXT Capsule END [Cymbalta] ED Duloxetine REL Hcl EAS E Hydromorphon Hydromorp 01/16/2019 TAB 2 mg ORAL completed [facility] e kimberly Hcl 12:30:00 PM [facility] Hydrochlorid EDT Hospita l e 2 MG Oral Tablet [Dilaudid] Hydromorphon e Hcl Metoprolol Metoprolo 01/16/2019 TAB 25 mg ORAL completed [facility] Tartrate 25 l 12:30:00 PM LET [facility] MG Oral Tartrate EDT Hospital Tablet Metoprolol Metoprolo 01/16/2019 TAB 25 mg ORAL [...] PEC OUS [facility] UNT/ML Lispro EDT [facility] Injectable ED Solution [Humalog] Insulin Human Lispro Insulin Insulin 01/16/2019 UNS 0 SUBCUTANE completed [facility] Lispro 100 Human 12:30:00 PM PEC OUS [facility] UNT/ML Lispro EDT [facility] Injectable ED Solution [Humalog] Insulin Human Lispro Hydromorphon Hydromorp 01/16/2019 TAB 2 mg ORAL completed [facility] e kimberly Hcl 12:30:00 PM [facility] Hydrochlorid EDT Hospita l e 2 MG Oral Tablet [Dilaudid] Hydromorphon e Hcl Hydromorphon Hydromorp 01/16/2019 TAB 2 mg ORAL completed [facility] e kimberly Hcl 12:30:00 PM [facility] Hydrochlorid EDT Hospita l e 2 MG Oral Tablet [Dilaudid] Hydromorphon e Hcl pregabalin Pregabali 01/16/2019 CAP 75 mg ORAL completed [facility] 75 MG Oral n 12:30:[address] Capsule EDT E Hospital [[facility]] Pregabalin Dextromethor Guaifenes 01/16/2019 LIQ 5 mL ORAL completed [facility] sexton in/Dextro 12:30:00 PM UID [facility] Hydrobromide methorpha EDT Ho spital 2 MG/ML / n Guaifenesin 20 MG/ML Oral Solution Guaifenesin/ Dextromethor sexton pantoprazole Pantopraz 01/16/2019 TAB 40 mg ORAL completed [facility] 40 MG ole 12:30:00 PM LET [place] Delayed Sodium EDT Hospital Release Oral Tablet [Protonix] Pantoprazole Sodium Dextromethor Guaifenes 01/16/2019 LIQ 5 mL ORAL completed [facility] [place] in/Dextro 12:30:00 PM UID [facility] Hydrobromide methorpha EDT Ho spital 2 MG/ML / n Guaifenesin 20 MG/ML Oral Solution Guaifenesin/ Dextromethor sexton pantoprazole Pantopraz 01/16/2019 TAB 40 mg ORAL completed [facility] 40 MG ole 12:30:00 PM LET [place] Delayed Sodium EDT Hospital Release Oral Tablet [Protonix] Pantoprazole Sodium pregabalin Pregabali 01/16/2019 CAP 75 mg ORAL completed [facility] 75 MG Oral n 12:30:[address] Capsule EDT E Hospital [[facility]] Pregabalin Acetaminophe Acetamino 01/16/2019 TAB 975 mg ORAL completed [facility] n 325 MG phen 12:30:00 PM LET [facility] Oral Tablet EDT Hospital Metocloprami Metoclopr 01/16/2019 TAB 10 mg ORAL completed [facility] de 10 MG amide Hcl 12:30:00 PM LET [place] Oral Tablet EDT Hospital Metocloprami de Hcl duloxetine Duloxetin 01/16/2019 CAP 30 mg ORAL completed [facility] 30 MG e Hcl 12:30:00 PM SUL [place] Delayed EDT E, Hospital Release Oral EXT Capsule END [Cymbalta] ED Duloxetine REL Hcl EAS E Lidocaine Lidocaine 01/16/2019 PAT 1 {Patch} TOPICAL completed [facility] Hydrochlorid 12:30:00 PM CH [place] e 0.05 MG/MG EDT Hospita l Transdermal Patch [Lidoderm] Hydralazine Hydralazi 01/16/2019 TAB 75 mg ORAL completed [facility] Hydrochlorid ne Hcl 12:30:00 PM LET [place] e 25 MG Oral EDT Hospita l Tablet Hydralazine Hcl pantoprazole Pantopraz 12/18/2018 TAB 40 mg ORAL completed [facility] 40 MG ole 09:27:00 AM LET [place] Delayed Sodium EDT Hospital Release Oral Tablet [Protonix] Pantoprazole Sodium pantoprazole Pantopraz 12/18/2018 TAB 40 mg ORAL completed [facility] 40 MG ole 09:27:00 AM LET [place] Delayed Sodium EDT Hospital Release Oral Tablet [Protonix] Pantoprazole Sodium pantoprazole Pantopraz 12/18/2018 TAB 40 mg ORAL completed [facility] 40 MG ole 09:27:00 AM LET [place] Delayed Sodium EDT Hospital Release Oral Tablet [Protonix] Pantoprazole Sodium pantoprazole Pantopraz 12/18/2018 TAB 40 mg ORAL completed [facility] 40 MG ole 09:27:00 AM LET [place] Delayed Sodium EDT Hospital Release Oral Tablet [Protonix] Pantoprazole Sodium pantoprazole Pantopraz 12/18/2018 TAB 40 mg ORAL completed [facility] 40 MG ole 09:27:00 AM LET [place] Delayed Sodium EDT Hospital Release Oral Tablet [Protonix] Pantoprazole Sodium Erythromycin Erythromy 12/18/2018 CAP 250 mg ORAL [...] 10 MG amide Hcl 09:18:00 AM LET [place] Oral Tablet EDT Hospital [[facility]] Metocloprami de Hcl Erythromycin Erythromy 12/18/2018 CAP 250 mg ORAL completed [facility] 250 MG jesús Base 09:18:[address] Delayed EDT E, Hospital Release Oral DEL Capsule AYE Erythromycin D Base REL EAS E Amlodipine Amlodipin 12/18/2018 TAB 10 mg ORAL completed [facility] 10 MG Oral e 09:18:[address] Tablet Besylate EDT Hospital [[facility]] Amlodipine Besylate Metocloprami Metoclopr 12/18/2018 TAB 10 mg ORAL completed [facility] de 10 MG amide Hcl 09:18:00 AM LET [place] Oral Tablet EDT Hospital [[facility]] Metocloprami de Hcl Erythromycin Erythromy 12/18/2018 CAP 250 mg ORAL completed [facility] 250 MG jesús Base 09:18:[address] Delayed EDT E, Hospital Release Oral DEL Capsule AYE Erythromycin D Base REL EAS E Amylases Amylase/L 12/18/2018 CAP 4 ORAL completed [facility] [id number] UNT / ipase/Pro 09:18:00 AM SUL {Capsule} [place] Endopeptidas [place] [address] UNT DEL / Lipase AYE 6000 UNT D Delayed REL Release Oral EAS Capsule E [Creon] Amylase/Lipa se/Protease Erythromycin Erythromy 12/18/2018 CAP 250 mg ORAL completed [facility] 250 MG jesús Base 09:18:[address] Delayed EDT E, Hospital Release Oral DEL Capsule AYE Erythromycin D Base REL EAS E Amylases Amylase/L 12/18/2018 CAP 4 ORAL completed [facility] [id number] UNT / ipase/Pro 09:18:00 AM SUL {Capsule} [place] Endopeptidas [place] [address] UNT DEL / Lipase AYE 6000 UNT D Delayed REL Release Oral EAS Capsule E [Creon] Amylase/Lipa se/Protease Amylases Amylase/L 12/18/2018 CAP 4 ORAL completed [facility] [address] UNT / ipase/Pro 09:18:00 AM SUL {Capsule} [place]opeptidas [place] [address] UNT DEL / Lipase AYE 6000 UNT D Delayed REL Release Oral EAS Capsule E [Creon] Amylase/Lipa se/Protease Amlodipine Amlodipin 12/18/2018 TAB 10 mg ORAL completed [facility] 10 MG Oral e 09:18:[address] Tablet Besylate EDT Hospital [[facility]] Amlodipine Besylate Metocloprami Metoclopr 12/18/2018 TAB 10 mg ORAL completed [facility] de 10 MG amide Hcl 09:18:00 AM LET [place] Oral Tablet EDT Hospital [Reglan] Metocloprami de Hcl Metocloprami Metoclopr 12/18/2018 TAB 10 mg ORAL completed [facility] de 10 MG amide Hcl 09:18:00 AM LET [place] Oral Tablet EDT Hospital [Reglan] Metocloprami de Hcl Metocloprami Metoclopr 12/18/2018 TAB 10 mg ORAL completed [facility] de 10 MG amide Hcl 09:18:00 AM LET [place] Oral Tablet EDT Hospital [Reglan] Metocloprami de Hcl Erythromycin Erythromy 12/18/2018 CAP 250 mg ORAL completed [facility] 250 MG jesús Base 09:18:[address] Delayed EDT E, Hospital Release Oral DEL Capsule AYE Erythromycin D Base REL EAS E Amylases Amylase/L 12/18/2018 CAP 4 ORAL completed [place] [id number] UNT / ipase/Pro 09:18:00 AM SUL {Capsule} [place] Endopeptidas tease [place] E, [place] [address] UNT DEL / Lipase AYE 6000 UNT D Delayed REL Release Oral EAS Capsule E [Creon] Amylase/Lipa se/Protease Amylases Amylase/L 12/18/2018 CAP 4 ORAL completed [place] [id number] UNT / ipase/Pro 09:18:00 AM SUL {Capsule} [place] Endopeptidas tease ED[place], [place] [address] UNT DEL / Lipase AYE 6000 UNT D Delayed REL Release Oral EAS Capsule E [Creon] Amylase/Lipa se/Protease Amlodipine Amlodipin 12/18/2018 TAB 10 mg ORAL completed [place] 10 MG Oral e 09:18:[address] Tablet Besylate EDT Hospital [[facility]] Amlodipine Besylate Amlodipine Amlodipin 12/18/2018 TAB 10 mg ORAL completed [facility] 10 MG Oral e 09:18:[address] Tablet Besylate EDT Hospital [[facility]] Amlodipine Besylate doxycycline Doxycycli 11/25/2018 CAP 100 [...] ORAL completed [facility] MG Oral 02:47:00 PM [facility] [Glucotrol] Glipizide 5 Glipizide 11/25/2018 TAB 5 mg ORAL completed [facility] MG Oral 02:47:00 PM [facility] [Glucotrol] Erythromycin Erythromy 11/25/2018 DAVID 200 mg ORAL completed [facility] Ethylsuccina jesús 02:47:00 PM PEN [place] te 40 MG/ML Ethylsucc EDT [facility] Oral inate N Suspension [[facility].] Erythromycin Erythromy 11/25/2018 DAVID 200 mg ORAL completed [facility] Ethylsuccina jesús 02:47:00 PM PEN [place] te 40 MG/ML Ethylsucc EDT [facility] Oral inate N Suspension [E.E.S.] Erythromycin Erythromy 11/25/2018 DAVID 200 mg ORAL completed [facility] Ethylsuccina jesús 02:47:00 PM PEN [place] te 40 MG/ML Ethylsucc EDT [facility] Oral inate N Suspension [E.E.S.] gabapentin Gabapenti 11/25/2018 CAP 300 mg ORAL completed [facility] 300 MG Oral n 02:47:00 PM SUL [facility] Capsule EDT E Hospital [Neurontin] Gabapentin Erythromycin Erythromy 11/25/2018 DAVID 200 mg ORAL completed [facility] Ethylsuccina jesús 02:47:00 PM PEN [place] te 40 MG/ML Ethylsucc EDT [facility]IO Hos [...] completed [facility] Ethylsuccina jesús 02:47:00 PM PEN [place] te 40 MG/ML Ethylsucc EDT SIO Hos [...] completed [facility] Ethylsuccina jesús 02:47:00 PM PEN [place] te 40 MG/ML Ethylsucc EDT [facility] Oral inate N Suspension [E.E.S.] Glipizide 5 Glipizide 11/25/2018 TAB 5 mg ORAL completed [facility] MG Oral 02:47:00 PM LET [facility] Tablet EDT Hospital [Glucotrol] Glipizide 5 Glipizide 11/25/2018 TAB 5 mg ORAL completed [facility] MG Oral 02:47:00 PM LET [place] [facility] Tablet EDT Hospital [Glucotrol] gabapentin Gabapenti 11/10/2018 CAP 100 mg ORAL [...] PM LET Pl [facility] Tablet EDT Hospital Lisinopril Lisinopri 11/10/2018 TAB 20 mg ORAL completed [facility] 20 MG Oral l 06:02:[address] Tablet EDT Hospital Lisinopril Lisinopri 11/10/2018 TAB 20 mg ORAL completed [facility] 20 MG Oral l 06:02:[address] Tablet EDT Hospital COLLAGENASE Collagena 11/10/2018 OIN 1 TOPICAL completed [facility] 0.25 UNT/MG se 06:02:00 PM TME {Applicat [place] Topical EDT NT or} Hospital Ointment [Santyl] Collagenase gabapentin Gabapenti 11/10/2018 CAP 100 mg ORAL completed [facility] 100 MG Oral n 06:02:00 PM SUL [facility] Capsule EDT E Hospital Gabapentin Amlodipine 5 Amlodipin 11/10/2018 TAB 5 mg ORAL completed [facility] MG Oral e 06:02:00 PM [facility] [place] [facility] Tablet Besylate EDT Hospital [Norvasc] Amlodipine Besylate COLLAGENASE Collagena 11/10/2018 OIN 1 TOPICAL completed [facility] 0.25 UNT/MG se 06:02:00 PM TME {Applicat [place] Topical EDT NT or} Hospital Ointment [Santyl] Collagenase gabapentin Gabapenti 11/10/2018 CAP 100 mg ORAL completed [facility] 100 MG Oral n 06:02:00 PM SUL [facility] Capsule EDT E Hospital Gabapentin COLLAGENASE Collagena 11/10/2018 OIN 1 TOPICAL completed [facility] 0.25 UNT/MG se 06:02:00 PM TME {Applicat [place] Topical EDT NT or} Hospital Ointment [Santyl] Collagenase Amlodipine 5 Amlodipin 11/10/2018 TAB 5 mg ORAL completed [facility] MG Oral e 06:02:00 PM LET [place] Tablet Besylate EDT [facility] [[facility]] Amlodipine Besylate COLLAGENASE Collagena 11/10/2018 OIN 1 TOPICAL completed [facility] 0.25 UNT/MG se 06:02:00 PM TME {Applicat [place] Topical EDT NT or} Hospital Ointment [Santyl] Collagenase Amlodipine 5 Amlodipin 11/10/2018 TAB 5 mg ORAL completed [facility] MG Oral e 06:02:00 PM LET [place] Tablet Besylate EDT [facility] [[facility]] Amlodipine Besylate gabapentin Gabapenti 11/10/2018 CAP 100 mg ORAL completed [facility] 100 MG Oral n 06:02:00 PM SUL [facility] Capsule EDT E Hospital Gabapentin Amlodipine 5 Amlodipin 11/10/2018 TAB 5 mg ORAL completed [facility] MG Oral e 06:02:00 PM [facility] [place] [facility] Amlodipine Besylate COLLAGENASE Collagena 11/10/2018 OIN 1 TOPICAL completed [facility] 0.25 UNT/MG se 06:02:00 PM TME {Applicat [place] Topical EDT NT or} Hospital Ointment [Santyl] Collagenase COLLAGENASE Collagena 11/10/2018 OIN 1 TOPICAL completed [facility] 0.25 UNT/MG se 06:02:00 PM TME {Applicat [place] Topical EDT NT or} Hospital Ointment [Santyl] Collagenase Amlodipine 5 Amlodipin 11/10/2018 TAB 5 mg ORAL completed [facility] MG Oral e 06:02:00 PM LET [place] [facility] Tablet Besylate EDT [facility] [[facility]] Amlodipine Besylate ertapenem ERTAPENEM 07/13/2018 in RP [...] AM EDT daily ([facility]) This may be an [...] - Mt Tablet 1,000 mg po BID [facility] 1,000 mg Group [facility]) This may be an active medication. No end date is available. 24 HR Metformin Metformin TABLET, 1 {Capsule} ORAL completed [place] hydrochloride Hcl EXTENDED Pl ains 1000 MG Extended RELEASE Hospital Release Oral Tablet [Fortamet] Metformin Hcl 24 HR Metformin Metformin TABLET, 1 {Capsule} ORAL completed White hydrochloride Hcl EXTENDED Pl ains 1000 MG Extended RELEASE Hospital Release Oral Tablet [Fortamet] Metformin Hcl 24 HR Metformin Metformin TABLET, 1 {Capsule} ORAL completed White hydrochloride Hcl EXTENDED Pl ains 1000 MG Extended RELEASE Hospital Release Oral Tablet [Fortamet] Metformin Hcl Insurance Providers Payer name Policy type / Policy ID Covered Covered green party's Policy Plan Coverage type green party ID relationship to Ma Information ma MDCR Medicare [id number] 1 [id number] Part B Par Providers [employer] Computer [id number] [facility] [id number] 1 [id number] [place] MEDICARE [id number] SP [id number] SANTANA [id number] SP [id number] MEDICARE ADV PLAN MEDICAID [id number] SP [id number] MEDICAID [id number] PT [id number] MEDICARE [id number] PT [id number] MEDICAID [id number] SP [id number] MEDICARE [id number] SP [id number] Santana Commercial [id number] Medicare Medicaid Medicaid [id number] Medicare Part Medicare [id number] 1 [id number] B Outpatient Medicare Part Medicare [id number] 1 [id number] A BETTER [id number] PT [id number] HEALTH/FIDELI S BETTER [id number] PT [id number] HEALTH/FIDELI S Medicare Part Medicare [id number] 1 [id number] B Outpatient Medicaid Medicaid [id number] Medicare Part Medicare [id number] 1 [id number] A FIDL [place] [id number] 1 [id number] Care [place] SELF PAY 000 Self 000 MEDICAID OP [id number] Self [id number] SELF PAY 0000 Self 0000 MEDICAID OP [id number] Self [id number] MEDICARE [id number] Self [id number] Santana Care Medicaid [id number] BETTER [id number] PT [id number] HEALTH/FIDELI S BLUE CROSS [id number] Problems, Conditions, and Diagnoses Code Display Name Description Problem Type Effective Data Sour ce(s) Dates K31.84 Gastroparesis Gastroparesis Diagnosis 01/08/2020 NEXTGEN 03:20:00 PM ([facility] K58.0 Irritable bowel Irritable bowel Diagnosis 01/08/2020 NEXT GEN syndrome with syndrome with 03:20:00 PM ([facility] diarrhea diarrhea EDT [facility]) R79.89 Other specified Low testosterone in Diagnosis 12/22/2019 NEXTGEN abnormal findings of male 04:48:00 PM ([facility] blood chemistry EDT [facility]) E11.43 Type 2 diabetes DM gastroparesis Diagnosis 12/22/2019 NEX TGEN mellitus with 04:48:00 PM ([facility] diabetic autonomic EDT Medica l - [place] (poly)neuropathy [facility] dical Group PC) K58.1 Irritable bowel Irritable bowel Diagnosis 12/11/2019 NEXT GEN syndrome with syndrome with 03:16:00 PM ([facility] constipation constipation EDT [facility]) E11.9 Type 2 diabetes Type 2 diabetes Diagnosis 12/11/2019 NEXT GEN mellitus without mellitus without 03:16:00 PM ( [facility] complications complications EDT [facility]) E11.621 Type 2 diabetes Type 2 diabetes Diagnosis 11/28/2019 NEXT GEN mellitus with foot mellitus with foot 01:45:00 PM ([facility] ulcer ulcer, with EDT Medical - [facility]) E11.40 Type 2 diabetes Type 2 diabetes Diagnosis 11/28/2019 NEXT GEN mellitus with mellitus with 01:45:00 PM ([facility] diabetic neuropathy, diabetic EDT Medi beata - Al unspecified neuropathy, [facility]sp [facility] R53.1 Weakness Weakness Diagnosis 10/23/2019 [facility] 03[facility]29[facility]00 [facility] VOMITING/SOB VOMITING/SOB Diagnosis 10/23/2019 [facility] - New 03:29:00 [facility] E11.9 Type 2 diabetes Type 2 diabetes Diagnosis 10/23/2019 S - New mellitus without mellitus without 03:29:00 AM [place] complications complication EDT Hospital R52 Pain, unspecified Pain Diagnosis 10/23/2019 S - N ew 03:29:00 AM [facility] 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 Malingerer Diagnosis 10/23/2019 S - New [conscious 03:29:00 AM [facility]] EDT Hospital Z03.818 Encounter for Encounter for Diagnosis 10/23/2019 S - Ne w observation for observation for 03:29:00 AM Freddy helle suspected exposure suspected exposure EDT Hospital to other biological to other biological agents ruled out agent, ruled out F41.9 Anxiety disorder, Anxiety disorder Diagnosis 10/23/2019 M HS - New unspecified 03:29:00 AM [facility] Z09 Encounter for Hospital discharge Diagnosis 10/16/2019 NEX TGEN follow-up follow-up 03:04:00 PM ([facility] examination after EDT [facility] completed treatment [facility] for conditions other Grou p PC) than malignant neoplasm R10.84 Generalized Generalized Diagnosis 10/16/2019 NEXTGEN abdominal pain abdominal pain 03:04:00 PM (Care [facility]) F41.1 Generalized anxiety RACHELL (generalized Diagnosis 10/16/2019 NEXTGEN disorder anxiety disorder) 03:04:00 PM (Care [facility]) D64.9 Anemia, unspecified Anemia, unspecified Diagnosis 020 NEXTGEN type 03:04:00 PM ([facility] access hospital PC) E11.21 Type 2 diabetes Type 2 diabetes Diagnosis 10/16/2019 NEXT GEN mellitus with mellitus with 03:04:00 PM ([facility] diabetic nephropathy diabetic EDT [facility] nephropathy [facility]) L89.891 Pressure ulcer of Pressure ulcer of Diagnosis 10/16/2019 NEXTGEN other site, stage 1 other site, stage 1 11:30:0 0 AM (Critical access hospital PC) K92.2 Gastrointestinal UGIB (upper Diagnosis 09/11/2019 NEXTGEN hemorrhage, gastrointestinal 10:15:00 AM ([facility] unspecified bleed) [facility]) Z00.00 Encounter for Encntr for general Diagnosis 08/14/2019 NEX TGEN general adult adult medical exam 12:00:00 AM ([facility] medical examination w/o abnormal EDT Med ical [facility] without abnormal findings [facility] Me dical findings Group PC) I10 Essential (primary) Essential (primary) Diagnosis 020 NEXTGEN hypertension hypertension 12:00:00 AM [facility] E78.5 Hyperlipidemia, Hyperlipidemia, Diagnosis 08/14/2019 NEXT GEN unspecified unspecified 12:00:00 AM ([facility] hospital PC) E11.51 Type 2 diabetes Type 2 diabetes w Diagnosis 08/14/2019 NE XTGEN mellitus with diabetic peripheral 12:00:00 AM ( [facility] diabetic peripheral angiopath w/o EDT Ma dical - Al angiopathy without gangrene [facility] gangrene Group PC) D63.1 Anemia in chronic Anemia in chronic Diagnosis 08/14/2019 NEXTGEN kidney disease kidney disease 12:00:00 AM ([facility]) R11.10 Vomiting, Vomiting, Diagnosis 06/24/2019 [facility] unspecified unspecified 11:08:00 AM - [facility] E11.43 Type 2 diabetes Type 2 diabetes Diagnosis 06/24/2019 [facility] mellitus with mellitus with 11:08:00 AM [facility] diabetic autonomic [facility] (poly)neuropathy (poly)neuropathy Ce nter R11.2 Nausea with Nausea with Diagnosis 06/06/2019 [facility] vomiting, vomiting, 12:16:00 PM - [place] unspecified unspecified [facility] M86.60 Other chronic M86.60 Diagnosis [...] Personal history of PERSONAL HISTORY OF Diagnosis [address] [place] [address] other infectious and OTHER INFECTIOUS 09:34:00 AM [facility] parasitic diseases AND PARASITIC [facility] Car e DISEASES [employer] Z89.511 Acquired absence of ACQUIRED ABSENCE OF Diagnosis [place] right leg below knee RIGHT LEG BELOW 09:34:00 A M [facility] KNEE [facility] [employer] K31.84 Gastroparesis GASTROPARESIS Diagnosis 03/26/2019 [facility] 09:34:00 AM [facility] [employer] Z79.84 intermediate (current) SENIOR CARE (CURRENT) Diagnosis [address] [place] [address] use of oral USE OF ORAL 09:34:00 AM [facility] hypoglycemic drugs HYPOGLYCEMIC DRUGS [facility] [employer] F41.9 Anxiety disorder, ANXIETY DISORDER, Diagnosis 03/26/2019 [place] unspecified UNSPECIFIED 09:34:00 AM [facility] [employer] E11.43 Type 2 diabetes TYPE 2 DIABETES W Diagnosis 03/26/2019 [facility] mellitus with DIABETIC AUTONOMIC 09:34:00 AM [facility] diabetic autonomic (POLY)NEUROPATHY [facility] (poly)neuropathy 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.42 Traction detachment TRACTION DETACHMENT Diagnosis [place] of retina, left eye OF RETINA, LEFT EYE 09:34:0 0 AM [facility] [employer] H33.012 Retinal detachment RETINAL DETACHMENT Diagnosis [address] [place] [address] with single break, WITH SINGLE BREAK, 12:17:00 PM [facility] left eye LEFT EYE [employer] F41.1 Generalized anxiety Generalized anxiety Diagnosis MHS - New disorder disorder 08:48:00 PM [facility] ANXIETY ANXIETY Diagnosis 03/11/2019 MHS - New 08:48:00 PM [facility] Z89.431 Acquired absence of Acquired absence of Diagnosis MHS - New right foot right foot 08:48:00 PM [facility] F43.9 Reaction to severe Reaction to severe Diagnosis 9 MHS - New stress, unspecified stress 08:18:00 PM [facility] F32.89 Other specified Other depressive Diagnosis 03/08/2019 MHS - New depressive episodes episodes 08:18:00 PM [facility] ANXIETY-WAS HERE ANXIETY-WAS HERE Diagnosis 03/08/2019 MH S - New YESTERDAY YESTERDAY 08:18:00 PM [facility] F41.8 Other specified Other specified Diagnosis 03/06/2019 MHS - New anxiety disorders anxiety disorders 08:48:00 PM [facility] HIGH ANXIETY HIGH ANXIETY Diagnosis 03/06/2019 M[facility] - New 08:48:00 PM [facility] Z89.511 Acquired absence of Acquired absence of Diagnosis 019 MHS - New right leg below knee right lower 08:48:00 PM [facility] knee PAIN LEFT LEG PAIN LEFT LEG Diagnosis 02/24/2019 MHS - Mo unt 01:23:00 AM [facility] M79.604 Pain in right leg Pain of right lower Diagnosis 9 [facility] - [place] extremity 01:23:00 AM [facility] F41.9 Anxiety disorder, Anxiety disorder Diagnosis 02/24/2019 M [facility] - [place] unspecified 01:23:00 AM [facility] D64.89 Other specified D64.89 Diagnosis 02/14/2019 [place] anemias 10:02:00 AM Hospital EST Z51.89 Encounter for other Z51.89 Diagnosis 02/14/2019 [place] specified aftercare 10:02:00 AM Hosp ital EST F41.9 Anxiety disorder, F41.9 Diagnosis 01/29/2019 [place] unspecified 11:08:00 PM Hospital EDT F32.9 Major depressive F32.9 Diagnosis 01/29/[address] [place] disorder, single 11:08:00 PM Hospita l episode, unspecified EDT G89.29 Other chronic pain G89.29 Diagnosis 01/29/2019 [place] 11:08:00 PM Hospital EDT K21.0 Gastro-esophageal K21.0 Diagnosis 01/29/2019 [place] reflux disease with 11:08:00 PM Hosp ital esophagitis EDT K59.00 Constipation, K59.00 Diagnosis 01/29/2019 [place] unspecified 11:08:00 PM Hospital EDT E11.610 Type 2 diabetes E11.610 Diagnosis 01/29/2019 [place] mellitus with 11:08:00 PM Hospital diabetic neuropathic EDT arthropathy Z89.422 Acquired absence of Z89.422 Diagnosis 01/29/2019 [place] other left toe(s) 11:08:00 PM Hospit al EDT D63.8 Anemia in other D63.8 Diagnosis 01/29/2019 [place] chronic diseases 11:08:00 PM Hospita l classified elsewhere EDT 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 Z76.5 Diagnosis 01/29/2019 [place] [conscious 11:08:00 PM Hospital simulation] EDT R11.2 Nausea with R11.2 Diagnosis 01/29/2019 [place] vomiting, 11:08:00 PM Hospital unspecified EDT E86.0 Dehydration E86.0 Diagnosis 01/29/2019 [place] 11:08:00 PM Hospital EDT Z86.14 Personal history of Z86.14 Diagnosis 01/29/2019 [place] Methicillin 11:08:00 PM Hospital resistant EDT Staphylococcus aureus infection Z91.14 Patient's other Z91.14 Diagnosis 01/29/2019 [place] noncompliance with 11:08:00 PM Hospi [facility] medication regimen EDT Z89.511 Acquired absence of Z89.511 Diagnosis 01/29/2019 [place] right leg below knee 11:08:00 PM Hos pital EDT I10 Essential (primary) I10 Diagnosis 01/29/2019 [place] hypertension 11:08:00 PM Hospital EDT K31.84 Gastroparesis K31.84 Diagnosis 01/29/2019 [place] 11:08:00 PM Hospital EDT E87.1 Hypo-osmolality and E87.1 Diagnosis 01/29/2019 [place] hyponatremia 11:08:00 PM Hospital EDT N17.9 Acute kidney N17.9 Diagnosis 01/29/2019 [place] failure, unspecified 11:08:00 PM Hos pital EDT [...] 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 12/27/2018 [place] duodenum 10:53:00 PM Hospital EDT K76.0 Fatty (change of) K76.0 Diagnosis 12/27/2018 [place] liver, not elsewhere 10:53:00 PM Hos pital classified EDT I16.0 Hypertensive urgency I16.0 Diagnosis 12/27/2018 [place] 10:53:00 PM Hospital EDT A41.9 Sepsis, unspecified A41.9 Diagnosis 12/27/2018 [place] organism 10:53:00 PM Hospital EDT Z91.018 Allergy to other Z91.018 Diagnosis 12/27/[address] [place] foods 10:53:00 PM Hospital EDT 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) Z79.84 Diagnosis 12/27/2018 [place] use of oral 10:53:00 PM Hospital hypoglycemic drugs EDT Z79.899 Other manager terminal Z79.899 Diagnosis 12/27/2018 [place] (current) drug 10:53:00 PM Hospital therapy EDT K31.7 Polyp of stomach and K31.7 Diagnosis 12/27/2018 [place] duodenum 10:53:00 PM Hospital EDT Z87.891 Personal history of Z87.891 Diagnosis 12/20/2018 [place] nicotine dependence 11:00:00 AM Hosp ital EDT Z79.4 intermediate (current) Z79.4 Diagnosis 12/20/2018 [place] use of insulin 11:00:00 AM Hospital EDT 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 12/20/2018 [place] ulcer of other part 11:00:00 AM Hosp ital of left foot with EDT unspecified severity L97.519 Non-pressure chronic L97.519 Diagnosis 12/20/2018 [place] ulcer of other part 11:00:00 AM Hosp ital of right foot with EDT unspecified severity L02.415 Cutaneous abscess of L02.415 Diagnosis 12/20/2018 [place] right lower limb 11:00:00 AM Hospita l EDT M86.671 Other chronic M86.671 Diagnosis 12/20/2018 [place] osteomyelitis, right 11:00:00 AM Hos pital ankle and foot EDT M86.672 Other chronic M86.672 Diagnosis 12/20/2018 [place] osteomyelitis, left 11:00:00 AM Hosp ital ankle and foot EDT L03.115 Cellulitis of right L03.115 Diagnosis 12/20/2018 [place] lower limb 11:00:00 AM Hospital EDT A41.02 Sepsis due to A41.02 Diagnosis 12/20/2018 [place] Methicillin 11:00:00 AM Hospital resistant EDT Staphylococcus aureus Z91.19 Patient's Z91.19 Diagnosis 12/06/2018 [place] noncompliance with 09:02:00 AM Hospi [place] other medical EDT treatment and regimen R07.9 Chest pain, R07.9 Diagnosis 12/06/2018 [place] unspecified 09:02:00 AM Hospital EDT D50.9 Iron deficiency D50.9 Diagnosis 12/06/2018 [place] anemia, unspecified 09:02:00 AM Hosp ital EDT Z79.2 intermediate (current) Z79.2 Diagnosis 12/06/2018 [place] use of antibiotics 09:02:00 AM Hospi [place] EDT E11.42 Type 2 diabetes E11.42 Diagnosis 12/06/2018 [place] mellitus with 09:02:00 AM Hospital diabetic EDT polyneuropathy Surgeries/Procedures Procedure Description Date Indications Data Source(s) OFFICE/OUTPATIENT VISIT EST OFFICE/OUTPATIENT 01/08/2020 NEXTGEN VISIT EST 12:00:00 AM ([facility]) RMVL DEVITAL TIS 20 CM/< RMVL DEVITAL TIS 20 11/28/2019 NEXTGEN CM/< 12:00:00 AM ([facility]) Injection, ondansetron Ondansetron hcl 10/29/2019 NE XTGEN hydrochloride, per 1 mg injection 12:00:00 AM ([facility]) THER/PROPH/DIAG IV INF INIT THER/PROPH/DIAG IV 10/29/2019 NEXTGEN INF INIT 12:00:00 AM ([facility] EDT [facility]) INPATIENT CONSULTATION INPATIENT 10/28/2019 NEXTG EN CONSULTATION 12:00:00 AM ([facility] EDT [facility]) INPATIENT CONSULTATION INPATIENT 10/26/2019 NEXTG EN CONSULTATION 12:00:00 AM ([facility] EDT [facility]) NM Lung Scan Perfusion NM 10/23/2019 [facility] Lung Scan Perfusion 11:18:00 AM [facility] yste EDT - 10/23/2019 11:18:00 AM EDT Standard chest X-ray 10/23/2019 [facility] ore (procedure) 05:09:00 AM [facility] EDT - 10/23/2019 05:09:00 AM EDT Electrocardiographic 10/23/2019 [facility] ore procedure (procedure) 04:42:00 AM [facility] EDT - 10/23/2019 06:17:00 AM EDT [facility] [facility] EDT - 10/23/2019 05:36:11 AM EDT Culture Bacteria Blood 10/23/2019 [facility] janny 04:36:58 AM [facility] EDT - 10/23/2019 05:36:10 AM EDT Sedimentation Rate, [facility] E[facility] 04:36:58 AM [facility] EDT - 10/23/2019 05:32:00 AM EDT Lipase, Serum [facility] 04[facility]58 [facility] EDT - 10/23/2019 05:32:00 AM EDT Alcohol Ethyl, Blood 10/23/2019 [facility] ore 04:36:[address] [facility] EDT - 10/23/2019 05:32:00 AM EDT Comprehensive Metabolic 10/23/2019 [facility] Panel 04:36:[address] [facility] EDT - 10/23/2019 05:32:00 AM EDT CBC w/Auto Differential- 10/23/2019 [facility] NR/SECC Only 04:36:58 AM [facility] EDT - 10/23/2019 05:32:00 AM EDT TRANS CARE MGMT 14 DAY TRANS CARE MGMT 14 10/16/2019 [facility] DISCH DAY DISCH 12:00:00 AM ([facility] EDT [facility]) CHRON CARE MGMT SRVC 20 MIN CHRON CARE MGMT 10/16/2019 NEXTGEN SRVC 20 MIN 12:00:00 AM ([facility]) SUBSEQUENT HOSPITAL CARE SUBSEQUENT HOSPITAL 09/27/2019 NEXTGEN CARE 12:00:00 AM ([facility]) INITIAL HOSPITAL CARE INITIAL HOSPITAL 09/24/2019 NE XTGEN CARE 12:00:00 AM ([facility]) TRANS CARE MGMT 7 DAY DISCH TRANS CARE MGMT 7 09/11/2019 NEXTGEN DAY DISCH 12:00:00 AM ([facility]) SUBSEQUENT HOSPITAL CARE SUBSEQUENT HOSPITAL 09/04/2019 NEXTGEN CARE 12:00:00 AM ([facility]) EGD DIAGNOSTIC BRUSH WASH EGD DIAGNOSTIC 09/04/2019 NEXTGEN BRUSH WASH 12:00:00 AM ([facility]) HOSPITAL DISCHARGE DAY HOSPITAL DISCHARGE 08/29/2019 NEXTGEN DAY 12:00:00 AM ([facility]) SUBSEQUENT HOSPITAL CARE SUBSEQUENT HOSPITAL 08/28/2019 NEXTGEN CARE 12:00:00 AM ([facility]) COMPLETE CBC W/AUTO DIFF COMPLETE CBC W/AUTO 08/14/2019 NEXTGEN WBC DIFF WBC 12:00:00 AM ([facility]) ASSAY THYROID STIM HORMONE ASSAY THYROID STIM 08/14/2019 NEXT[facility] HORMONE 12:00:00 AM ([facility]) COMPREHEN METABOLIC PANEL COMPREHEN METABOLIC 08/14/2019 NEXTGEN PANEL 12:00:00 AM ([facility]) ASSAY OF FREE THYROXINE ASSAY OF FREE 08/14/2019 N[facility] TG[facility] THYROXINE 12:00:00 AM ([facility]) ASSAY OF PSA TOTAL ASSAY OF PSA TOTAL 08/14/2019 NEX TGEN 12:00:00 AM ([facility]) IRON BINDING TEST IRON BINDING TEST 08/14/2019 NEXTG EN 12:00:00 AM ([facility]) ASSAY OF FOLIC ACID SERUM ASSAY OF FOLIC ACID 08/14/2019 NEXTGEN SERUM 12:00:00 AM ([facility]) ASSAY OF FERRITIN ASSAY OF FERRITIN 08/14/2019 NEXTG EN 12:00:00 AM ([facility]) VITAMIN B-12 VITAMIN B-12 08/14/2019 NEXTGEN 12:00:00 AM ([facility]) VITAMIN D 25 HYDROXY VITAMIN D 25 08/14/2019 NEXTGEN HYDROXY 12:00:00 AM ([facility]) UR ALBUMIN QUANTITATIVE UR ALBUMIN 08/14/2019 NEXT GEN QUANTITATIVE 12:00:00 AM ([facility]) URINALYSIS AUTO W/SCOPE URINALYSIS AUTO 08/14/2019 N EXTGEN W/SCOPE 12:00:00 AM ([facility]) LIPID PANEL LIPID PANEL 08/14/2019 NEXTGEN 12:00:00 AM ([facility]) ROUTINE VENIPUNCTURE ROUTINE 08/14/2019 NEXTGEN VENIPUNCTURE 12:00:00 AM ([facility]) PREV VISIT EST AGE 40-64 PREV VISIT EST AGE 0508/14/2019 NEXTGEN 40-64 12:00:00 AM ([facility]) EGD CONTROL BLEEDING ANY EGD CONTROL 08/11/2019 NEX TGEN BLEEDING ANY 12:00:00 AM ([facility]) ERCP REMOVE DUCT CALCULI ERCP REMOVE DUCT 08/05/2019 NEXTGEN CALCULI 12:00:00 AM ([facility]) INITIAL HOSPITAL CARE INITIAL HOSPITAL 07/28/2019 NE XTGEN CARE 12:00:00 AM ([facility]) INPATIENT CONSULTATION INPATIENT 06/05/2019 NEXTG EN CONSULTATION 12:00:00 AM ([facility] EST Medical - [facility]) Electrocardiographic 06/04/2019 [place] procedure (procedure) 12:00:00 AM Hospit al EST Physical therapy procedure 02/09/2019 [place] (regime/therapy) 12:00:00 AM Hospital EDT Diagnostic radiography of 02/08/2019 [place] abdomen (procedure) 12:00:00 AM Hospital EDT Physical therapy procedure 02/06/2019 [place] (regime/therapy) 12:00:00 AM Hospital EDT Probe Cover With Gel 48 In. 02/05/2019 [place] 12:00:00 AM Hospital EDT PowerGlide Pro 18G x 10CM 02/05/2019 [place] 12:00:00 AM Hospital EDT Diagnostic radiography of 02/04/2019 [place] abdomen (procedure) 12:00:00 AM Hospital EDT Plain chest X-ray 02/02/2019 [place] (procedure) 12:00:00 AM Hospital EDT Electrocardiographic 02/01/2019 [place] procedure (procedure) 12:00:00 AM Hospit al EDT Diagnostic radiography of 01/31/2019 [place] abdomen (procedure) 12:00:00 AM Hospital EDT Electrocardiographic 01/29/2019 [place] procedure (procedure) 12:00:00 AM Hospit al EDT Computed tomography of 01/09/2019 [place] abdominal vascular 12:00:00 AM Hospital structures (procedure) EDT Computed tomography of 01/09/2019 [place] abdominal vascular 12:00:00 AM Hospital structures (procedure) EDT Physical therapy procedure 01/08/2019 [place] (regime/therapy) 12:00:00 AM Hospital EDT Physical therapy procedure 01/08/2019 [place] (regime/therapy) 12:00:00 AM Hospital EDT Oxygen therapy (procedure) 01/06/2019 [place] 12:00:00 AM Hospital EDT DETACHMENT AT RIGHT LOWER 01/06/2019 [place] LEG, HIGH, OPEN APPROACH 12:00:00 AM Hos pital EDT TRANSFUSE NONAUT RED BLOOD 01/06/2019 [place] CELLS IN PERIPH VEIN, PERC 12:00:00 AM H ospital EDT Oxygen therapy (procedure) 01/06/2019 [place] 12:00:00 AM Hospital EDT Physical therapy procedure 01/04/2019 [place] (regime/therapy) 12:00:00 AM Hospital EDT Physical therapy procedure 01/04/2019 [place] (regime/therapy) 12:00:00 AM Hospital EDT Ultrasonography of abdomen 12/31/2018 [place] (procedure) 12:00:00 AM Hospital EDT Ultrasonography of abdomen 12/31/2018 [place] (procedure) 12:00:00 AM Hospital EDT Plain chest X-ray 12/29/2018 [place] (procedure) 12:00:00 AM Hospital EDT Plain chest X-ray 12/29/2018 [place] (procedure) 12:00:00 AM Hospital EDT INSERTION OF INFUSION 12/29/2018 [place] DEVICE INTO R [facility], PERC 12:00:00 AM H ospital APPROACH EDT EXCISION OF LOWER 12/29/2018 [place] ESOPHAGUS, ENDO, DIAGN 12:00:00 AM Hospi [place] EDT EXCISION OF DUODENUM, ENDO, 12/29/2018 [place] DIAGN 12:00:00 AM Hospital EDT Plain chest X-ray 12/29/2018 [place] [facility]:00 AM [facility] EDT Plain chest X-ray 12/29/2018 [place] [facility] 12:[facility]:00 AM Hospital EDT Electrocardiographic 12/28/2018 [place] [facility] (procedure) 12:[facility]:00 AM [facility] ED[facility] Electrocardiographic 12/28/2018 [place] [facility] (procedure) 12:00:00 AM [facility] EDT Electrocardiographic 12/27/2018 [place] [facility] (procedure) 12:00:00 AM [facility] EDT Electrocardiographic 12/27/2018 [place] [facility] (procedure) 12:00:00 AM [facility] EDT Plain chest X-ray 12/27/2018 [place] [facility]procedure) 12:[facility]:00 AM Hospital EDT Electrocardiographic 12/27/2018 [place] [facility] (procedure) 12:00:00 AM [facility] EDT Electrocardiographic 12/27/2018 [place] [facility] (procedure) 12:00:00 AM [facility] EDT Plain chest X-ray 12/27/2018 [place] (procedure) 12:00:00 AM Hospital EDT Probe Cover With Gel 48 In. 12/24/2018 [place] 12:00:00 AM Hospital EDT Ultrasound scan of upper 12/24/2018 [place] limb vessels (procedure) 12:00:00 AM Hos pital EDT PowerGlide ST 18G x 10CM 12/24/2018 [facility] [place] 12:00:00 AM Hospital EDT Probe Cover With Gel 48 In. 12/24/2018 [place] 12:00:00 AM Hospital EDT Ultrasound scan of upper 12/24/2018 [facility] [place] limb vessels (procedure) 12:00:00 AM Hos pital EDT PowerGlide ST 18G x 10CM 12/24/2018 [facility] [place] 12:00:00 AM Hospital EDT Physical therapy procedure 12/23/2018 [facility] [place] [place] (regime/therapy) 12:00:00 AM Hospital EDT Physical therapy procedure 12/23/2018 [place] (regime/therapy) 12:00:00 AM Hospital EDT Echocardiography 12/22/2018 [place] (procedure) 12:00:00 AM Hospital EDT Plain chest X-ray 12/22/2018 [place] [facility] 12:00:00 AM Hospital EDT Echocardiography 12/22/2018 [place] (procedure) 12:00:00 AM Hospital EDT Plain chest X-ray 12/22/2018 [place] (procedure) 12:00:00 AM Hospital EDT DRAINAGE OF RIGHT LOWER LEG 12/21/2018 [place] MUSCLE, OPEN APPROACH 12:00:00 AM Hospit al EDT Plain chest X-ray 12/20/2018 [place] (procedure) 12:00:00 AM Hospital EDT Electrocardiographic 12/20/2018 [place] [facility] (procedure) 12:00:00 AM Hospit al EDT Plain chest X-ray 12/20/2018 [place] (procedure) 12:00:00 AM Hospital EDT Electrocardiographic 12/20/2018 [place] [facility] (procedure) 12:00:00 AM [facility] EDT Electrocardiographic 12/14/2018 [place] [facility] (procedure) 12:00:00 AM [facility] al EDT Electrocardiographic 12/14/2018 [place] [facility] (procedure) 12:00:00 AM Hospit al EDT PowerGlide ST 18G x 8CM 12/13/2018 [place] 12:00:00 AM Hospital EDT PowerGlide ST 18G x 8CM 12/13/2018 [place] 12:00:00 AM Hospital EDT Doppler ultrasound of 12/06/2018 [place] vessels of both lower 12:00:00 AM Hospit al extremities EDT X-ray of right foot 12/06/2018 [place] (procedure) 12:00:00 AM Hospital EDT X-ray of left foot 12/06/2018 [place] (procedure) 12:00:00 AM Hospital EDT Electrocardiographic 12/06/2018 [place] [facility] (procedure) 12:00:00 AM Hospit al EDT Plain chest X-ray 12/06/2018 [place] (procedure) 12:00:00 AM Hospital EDT Doppler ultrasound of 12/06/2018 [place] vessels of both lower 12:00:00 AM Hospit al extremities EDT X-ray of right foot 12/06/[address] [place] (procedure) 12:00:00 AM Hospital EDT X-ray of left foot 12/06/2018 [place] (procedure) 12:00:00 AM Hospital EDT Electrocardiographic 12/06/2018 [place] (procedure) 12:00:00 AM Hospit al EDT Plain chest X-ray 12/06/2018 [place] (procedure) 12:00:00 AM Hospital EDT Results ID Date Data Source [id number] 01/07/2020 05:37:00 AM EDT [facility] Name Value Range Interpretation Description Data Sup porting Code Source(s) Document(s ) SARS [facility] coronavirus 2 RNA This lab was ordered by [facility] and reported by [facility]. ID Date Data Source [id number] 12/04/2019 10:30:00 PM EDT [facility] Name Value Range Interpretation Description Data Sup porting Code Source(s) Document(s ) SARS [facility] coronavirus 2 RNA This lab was ordered by [facility] and reported by [facility]. ID Date Data Source [id number] 11/10/2019 06:03:00 PM EDT [facility] Name Value Range Interpretation Description Data Sup porting Code Source(s) Document(s ) SARS [facility] coronavirus 2 RNA This lab was ordered by [facility] and reported by [facility]. ID Date Data Source [id number] 11/07/2019 01:25:00 PM EDT [facility] Name Value Range Interpretation Description Data Sup porting Code Source(s) Document(s ) SARS [facility] coronavirus 2 RNA This lab was ordered by [facility] and reported by [facility]. ID Date Data Source [id number] 10/27/2019 04:47:00 PM EDT [facility] Name Value Range Interpretation Description Data Sup porting Code Source(s) Document(s ) [facility] Interpretation Unspecified Specimen Qualitative MEG Probe Detection This lab was ordered by [facility] and reported by [employer]. ID Date Data Source [id number] 10/23/2019 07:21:33 PM EDT [facility] Name Value Range Interpretation Description [...] th e patient. ID Date Data Source [id number] 10/23/2019 07:21:33 PM EDT [facility] Name Value Range Interpretation Description Data Source(s ) Supporting Code Document(s ) LacticAc 2.1 Above upper panic Lactic Acid [facility] idWholeB mmol/L limits Whole [facility] lood*NEW *NEW CAROLYN CAROLYN ONLY* ONLY* Result Reporting|Telephone|Pam ovalle RN/RB| 10/23/2019 at 6:19 AMCalled to:Pam Rudolph RN/RBTech Name:SFReadback by:Sherlyn Rudolph RN/RB 10/23/2019 / 6:19 AM ID Date Data Source [id number] 10/23/2019 07:21:33 PM EDT [facility] Name Value Range Interpretation Description Data Sup porting Code Source(s) Document(s ) 59502-1 NEGATIVE Testing Normal (applies COVID-19.. [facility] was performed to non-numeric Health Syst em using Tony ID results) NOW COVID-19, an isothermal nucleic acid amplification technology for the qualitative detection of nucleic acid from the SARS-CoV-2 viral RNA in respiratory specimens. The ID NOW COVID-19 test has been approved by the Food and Drug Administration (FDA) under an Emergency Use Authorization for use by authorized laboratories. Reference Range: NEGATIVE . ID Date Data Source [id number] 10/23/2019 07:21:33 PM EDT [facility] [...] Health results) System ID Date Data Source [id number] 10/23/2019 07:21:33 PM EDT [facility] Name Value Range Interpretation Description Data [...] Alkaline [facility] phosphatase {IU/L} to non-numeric Phosphatase, [facility] isoenzymes results) Serum System [Enzymatic activity/volume] in [...] urine test abnormalities ID Date Data Source [id number] 10/23/2019 07:21:33 PM EDT [facility] Name Value Range Interpretation Description Data Sup porting Code Source(s) Document(s ) Prothrombintim 11.50 Normal (applies Prothrombin [facility](PT) {seconds to non-numeric time (PT) Health System } results) INR in Blood 0.99 Normal (applies INR Result [facility] by Coagulation {Ratio} to non-numeric Health Sys tem assay results) Normal = 0.7-1.1Therapeutic = 2.0-3.0Mec hanical Heart = 3.0-4.5 ID Date Data Source [id number] 10/23/2019 07:21:33 PM EDT [facility] System Name Value Range Interpretation Description Data Sup porting Code Source(s) Document(s ) aPTT in Blood 29.3 Normal (applies Activated [facility] by Coagulation {Seconds to non-numeric Partial Health assay } results) Thromboplastin System Time ID Date Data Source [id number] 10/23/2019 11:18:00 AM EDT [facility] Nuclear Medicine Examination: Lung Perfu moisés [...] [place], at 11:54 EDTTel , Service support ,[phone] Name Value Range Interpretation Code Description Data Jackie rce(s) Supporting Document(s ) ID Date Data Source [id number] 10/23/2019 05:32:00 AM EDT [facility] Name Value Range Interpretation Code Description Data [facility] rce(s) Supporting Document(s ) COVID-19.. [facility] This lab was ordered by [facility] and reported by [facility]. ID Date Data Source [id number] 10/23/2019 05:09:00 AM EDT [facility] HISTORY: Fever;EXAMINATION/TECHNIQUE:XR Chest 1 View:COMPARISON: None FINDINGS:LINES/DEVICES:None.LUNG S:No airspace consolidation.Unremarkable inte rstitium.No effusion.Nopneumothorax.MEDIASTINUM: No cardiomegaly.MUSCULOSKELETAL: No acute osseousfinding.IMPRESSION:No evidence of acute cardiopulmonary process. ElectronicallySigned by Clemente Mays MD on 10/23/2019 at 0602 Reported and signed by: Clemente Mays MDEnvision Ph ysician ServicesSHCR DR CLEMENTE MAYS MS [phone]:Ronnell Mays MD at 6:02 EDTTel , Service support [phone] Name Value Range Interpretation Code Description Data Jackie rce(s) Supporting Document(s ) ID Date Data Source [id number] 10/17/2019 06:30:00 PM EDT [facility] Name Value Range Interpretation Description Data Sup porting Code Source(s) Document(s ) SARS [facility] coronavirus 2 RNA This lab was ordered by [facility] and reported by [facility]. ID Date Data Source [id number] 10/11/2019 05:04:00 PM EDT [facility] Name Value Range Interpretation Description Data Sup porting Code Source(s) Document(s ) SARS [facility] coronavirus 2 RNA This lab was ordered by [facility] and reported by [facility]. ID Date Data Source [id number] 10/11/2019 06:29:00 AM EDT [facility] Name Value Range Interpretation Description Data Sup porting Code Source(s) Document(s ) SARS [facility] coronavirus 2 RNA This lab was ordered by [facility] and reported by [facility]. ID Date Data Source [id number] 10/01/2019 09:30:00 PM EDT [facility] Name Value Range Interpretation Description Data Sup porting Code Source(s) Document(s ) SARS [facility] coronavirus 2 RNA This lab was ordered by [facility] and reported by [facility]. ID Date Data Source [id number] 10/01/2019 12:06:00 PM EDT [facility] Name Value Range Interpretation Description Data Sup porting Code Source(s) Document(s ) SARS [facility] coronavirus 2 RNA This lab was ordered by [facility] and reported by [facility]. ID Date Data Source [id number] 09/24/2019 03:15:00 AM EDT [facility] Name Value Range Interpretation Description Data Sup porting Code Source(s) Document(s ) 2019 Novel [facility] Coronavirus RNA Interpretation Unspecified Specimen Qualitative MEG Probe Detection This lab was ordered by [facility] and reported by [facility]. ID Date Data Source [id number] 09/03/2019 02:51:00 AM EDT [facility] Name Value Range Interpretation Code Description Data Jackie rce(s) Supporting Document(s ) SARS-CoV-2 [facility] N gene Resp Ql MEG+probe This lab was ordered by [facility] and reported by [facility]. ID Date Data Source [id number] 08/26/2019 02:01:00 AM EDT [facility] Name Value Range Interpretation Description Data Sup porting Code Source(s) Document(s ) 2019 Novel [facility] Coronavirus RNA Interpretation Unspecified Specimen Qualitative MEG Probe Detection This lab was ordered by [facility] and reported by [facility]. ID Date Data Source [id number] 08/11/2019 03:01:00 AM EDT [facility] Name Value Range Interpretation Description Data Sup porting Code Source(s) Document(s ) 2019 Novel [facility] Coronavirus RNA Interpretation Unspecified Specimen Qualitative MEG Probe Detection This lab was ordered by [facility] and reported by [facility]. ID Date Data Source [id number] 08/11/2019 03:01:00 AM EDT [facility] Name Value Range Interpretation Description Data Sup porting Code Source(s) Document(s ) 2019 Novel [facility] Coronavirus RNA Interpretation Unspecified Specimen Qualitative MEG Probe Detection This lab was ordered by [facility] and reported by [facility]. ID Date Data Source [id number] 06/25/2019 07:34:00 AM EDT [facility] Added by Discern Rule GLB_ADD_GFR_BMP Name Value Range Interpretation Code Description Data Jackie rce(s) Supporting Document(s ) eGFR-AA 62 >=60 NO [facility] mL/min/1.[address] [place] [address] The CKD-EPI equation for non- Nini rican [...] Mild decrease* G3a 45-59 Mild to moderate [id number] 30-44 Moderate to s evere decreaseG4 15-29 [...] Mild decrease* G3a 45-59 Mild to moderate ydlpsyfsR3h 30-44 Moderate to s evere decreaseG4 15-29 Severe decreaseG5 14 or less Kidney fa ilure ID Date Data Source [id number] 06/25/2019 07:34:00 AM EDT [facility] Name Value Range Interpretation Description Data Sup porting Code Source(s) Document(s ) Glucose Lvl 172 65-99 [place] mg/dL [facility] BUN 25.0 7.0-21.0 [place] mg/dL [facility] Creatinine 1.45 0.70-1.2 [place] mg/dL 0 [facility] BUN/Creat 17.2 7.0-29.0 [place] Ratio ratio [facility] Sodium Lvl 136 136-146 [place] mmol/L [facility] Potassium Lvl 3.1 3.5-5.1 [place] mmol/L [facility] Chloride 101 98-109 [place] mmol/L [facility] CO2 27 17-33 [place] mmol/L [facility] AGAP 8 5-15 NO [facility] Calcium Lvl 8.5 8.3-10.2 [place] mg/dL [facility] ID Date Data Source [id number] 06/25/2019 07:03:00 AM EDT [facility] Name Value Range Interpretation Description Data Sup porting Code Source(s) Document(s ) Neut Auto 60.7 % 40.0-70.0 [facility] Lymph Auto 29.6 % 22.0-44.0 [facility] Butts Auto 9.2 % 4.0-11.0 [facility] Eos Auto 0.2 % 0.0-8.0 NO [facility] Baso Auto 0.3 % 0.0-3.0 NO [facility] Neut 5.2 1.8-7.7 [place] Absolute x10(3)/[facility] Lymph 2.5 1.0-4.8 [place] Absolute x10(3)/[facility] Butts 0.8 0.2-1.2 [place] Absolute x10(3)/[facility] Eos Absolute 0.0 0.0-0.9 [place] x10(3)/[facility] Baso 0.0 0.0-0.3 [place] Absolute x10(3)/[facility] ID Date Data Source [id number] 06/25/2019 07:03:00 AM EDT [facility] Name Value Range Interpretation Description Data Sup porting Code Source(s) Document(s ) WBC 8.5 4.5-11.0 [place] x10(3)/[facility] RBC 3.71 4.50-5.90 LO [facility] x10(6)/[facility] Hgb 9.1 gm/dL 13.5-17.5 [facility] Hct 28.2 % 41.0-53.0 [facility] MCV 76 fL 80-100 [facility] MCH 24.5 pg 26.0-34.0 [facility] MCHC 32.2 31.0-37.0 NO [facility] gm/dL [facility] RDW 14.8 % 11.5-14.5 [facility] Platelet 379 150-350 [facility] x10(3)/[facility] MPV 7.1 fL 7.4-10.4 [facility] ID Date Data Source [id number] 06/24/2019 09:35:00 AM EDT [facility] Name Value Range Interpretation Description Data Sup porting Code Source(s) Document(s ) Phosphorus 4.3 mg/dL 2.5-5.0 [facility] ID Date Data Source [id number] 06/24/2019 09:35:00 AM EDT [facility] patient refused blood work.CIELO Burris was notified.As per patient request, RN to draw blood from port .06/24/2019 08:07:16 EDT, ENEmmie Name Value Range Interpretation Description Data Sup porting Code Source(s) Document(s ) Magnesium 1.9 mg/dL 1.6-2.5 NO [facility] ID Date Data Source [id number] 06/24/2019 09:35:00 AM EDT [facility] Added by Discern Rule GLB_ADD_GFR_CMP Name Value Range Interpretation Code Description Data Jackie rce(s) Supporting Document(s ) eGFR-AA 38 >=60 [facility] mL/min/1.[address] The CKD-EPI equation for non- [facility] rican individuals is used to calculate the [...] Mild decrease* G3a 45-59 Mild to moderate ubmmyteyE6g 30-44 Moderate to s evere decreaseG4 15-29 Severe decreaseG5 14 or less Kidney fa ilure eGFR-MEG 31 mL/min/1.73m2 >=60 [facility] The CKD-EPI equation for non- Nini [...] Mild decrease* G3a 45-59 Mild to moderate [id number] 30-44 Moderate to s evere decreaseG4 15-29 Severe decreaseG5 14 or less Kidney fa ilure ID Date Data Source [id number] 06/24/2019 09:35:00 AM EDT [facility] patient refused blood work .Cielo Burris was notified.As per patient request , Rn to draqw blood from port.06/24/2019 08:05:11 EDT, ENK Name Value Range Interpretation Description Data Sup porting Code Source(s) Document(s ) Glucose Lvl 151 65-99 [place] mg/dL [facility] BUN 29.0 7.0-21.0 [place] mg/dL [facility] Creatinine 2.20 0.70-1.2 [place] mg/dL 0 [facility] BUN/Creat 13.2 7.0-29.0 [place] Ratio ratio [facility] Sodium Lvl 137 136-146 [place] mmol/L [facility] Potassium Lvl 3.5 3.5-5.1 [place] mmol/L [facility] Chloride 100 98-109 [place] mmol/L [facility] CO2 26 17-33 [place] mmol/L [facility] AGAP 11 5-15 [facility] Calcium Lvl 8.3 8.3-10.2 [place] mg/dL [facility] Total Protein 7.2 6.0-8.3 [place] gm/dL [facility] Albumin Lvl 3.0 3.7-5.3 [place] gm/dL [facility] Glob 4.2 2.0-4.5 [place] gm/dL [facility] A/G Ratio 0.7 1.0-2.2 [place] ratio [facility] Bili Total 0.3 0.4-1.1 [place] mg/dL [facility] Alk Phos 106 IU/L 30-125 [facility] AST 11 IU/L 10-35 NO [facility] ALT 11 IU/L 8-40 NO [facility] ID Date Data Source [id number] 06/24/2019 09:15:00 AM EDT [facility] Name Value Range Interpretation Description Data Sup porting Code Source(s) Document(s ) Neut Auto 65.3 % 40.0-70.0 NO [facility] Lymph Auto 25.1 % 22.0-44.0 NO [facility] Butts Auto 9.2 % 4.0-11.0 NO [facility] Eos Auto 0.2 % 0.0-8.0 NO [facility] Baso Auto 0.2 % 0.0-3.0 NO [facility] Neut 6.0 1.8-7.7 [place] Absolute x10(3)/[facility] Lymph 2.3 1.0-4.8 [place] Absolute x10(3)/[facility] Butts 0.8 0.2-1.2 [place] Absolute x10(3)/[facility] Eos Absolute 0.0 0.0-0.9 [place] x10(3)/[facility] Baso 0.0 0.0-0.3 [place] Absolute x10(3)/[facility] ID Date Data Source [id number] 06/24/2019 09:15:00 AM EDT [facility] patient refused blood work . Cielo Burris no felipe.As per PAtient request , Rn has to draw patient from port .06/24/2019 08:03: 02 EDT, ENK Name Value Range Interpretation Description Data Sup porting Code Source(s) Document(s ) WBC 9.2 4.5-11.0 [place] x10(3)/[facility] RBC 3.60 4.50-5.90 [place] x10(6)/[facility] Hgb 9.0 gm/dL 13.5-17.5 [facility] Hct 27.6 % 41.0-53.0 [facility] MCV 77 fL 80-100 [facility] MCH 24.9 pg 26.0-34.0 [facility] MCHC 32.5 31.0-37.0 [facility] gm/dL [facility] RDW 15.1 % 11.5-14.5 [facility] Platelet 395 150-350 [facility] x10(3)/[facility] MPV 7.3 fL 7.4-10.4 [facility] ID Date Data Source [id number] 06/23/2019 04:40:00 PM EDT [facility] Patient Name: KARSTEN GIBBS EMRN: [id number] Interventional RadiologyACCESSION EXAM DATE/TIME PROCEDURE ORDERING PROVIDER [id number] 06/23/2019 16:01 EDT IR Ins Picc Wo [...] subcu taneous infiltrationAccess: Right brachial veinDevice: 4 [place] by 35 cmClosure: Dr elias sterile dressingContrast: [...] prepped and draped. All elements of [facility] sterile barrier technique including cap, mask, sterile [...] time of puncture, and sent to the [facility]. The catheter was tested, demonstrating good flush [...] Supporting Document(s ) ID Date Data Source [id number] 06/23/2019 05:05:00 AM EDT [facility] Patient Name: KARSTEN GIBBS EMRN: [id number] Computed TomographyACCESSION EXAM DATE/TIME PROCEDURE ORDERING PROVIDER [id number] 06/23/2019 04:[address] Abdomen Pelvis Myra [...] Supporting Document(s ) ID Date Data Source [id number] 06/23/2019 04:12:00 AM EDT [facility] Name Value Range Interpretation Description Data Sup porting Code Source(s) Document(s ) Segs 89 % 40-70 [facility] Band 0 % 0-6 NO [facility] Neutr 16.8 1.8-7.7 [facility] Absolute x10(3)/[facility] Lymph 8 % 22-44 [facility] Monocyte 3 % 4-11 [facility] Eos 0 % 0-8 NO [facility] Basophil 0 % 0-3 [facility] RBC Morph Normocyt AB [facility] Anisocyte NO [facility] Platelet NO [facility] Estimate NO [facility] ID Date Data Source [id number] 06/23/2019 03:38:00 AM EDT [facility] Added by Discern Rule GLB_ADD_GFR_CMP Name Value Range Interpretation Code Description Data Jackie rce(s) Supporting Document(s ) eGFR-AA 74 >=60 [facility] mL/min/1.[address] [place] [address] The CKD-EPI equation for non- Nini rican [...] Mild decrease* G3a 45-59 Mild to moderate [id number] 30-44 Moderate to s evere decreaseG4 15-29 [...] Mild decrease* G3a 45-59 Mild to moderate [id number] 30-44 Moderate to s evere decreaseG4 15-29 Severe decreaseG5 14 or less Kidney fa ilure ID Date Data Source [id number] 06/23/2019 03:38:00 AM EDT [facility] Name Value Range Interpretation Code Description Data Jackie rce(s) Supporting Document(s ) Lipase Lvl 19 IU/L 10-59 NO [facility] ID Date Data Source [id number] 06/23/2019 03:38:00 AM EDT [facility] Name Value Range Interpretation Description Data Sup porting Code Source(s) Document(s ) Glucose Lvl 202 65-99 [place] mg/dL [facility] BUN 15.0 7.0-21.0 [place] mg/dL [facility] Creatinine 1.24 0.70-1.2 [place] mg/dL 0 [facility] BUN/Creat 12.1 7.0-29.0 [place] Ratio ratio [facility] Sodium Lvl 132 136-146 [place] mmol/L [facility] Potassium Lvl 4.1 3.5-5.1 [place] mmol/L [facility] Chloride 98 98-109 [place] mmol/L [facility] CO2 21 17-33 [place] mmol/L [facility] AGAP 13 5-15 NO [facility] Calcium Lvl 8.8 8.3-10.2 [place] mg/dL [facility] Total Protein 8.1 6.0-8.3 [place] gm/dL [facility] Albumin Lvl 3.1 3.7-5.3 [place] gm/dL [facility] Glob 5.0 2.0-4.5 [place] gm/dL [facility] A/G Ratio 0.6 1.0-2.2 [facility] ratio [facility] Bili Total 1.1 0.4-1.1 [place] mg/dL [facility] Alk Phos 128 IU/L 30-125 [facility] AST 28 IU/L 10-35 NO [facility] ALT 15 IU/L 8-40 NO [facility] ID Date Data Source [id number] 06/23/2019 03:35:00 AM EDT [facility] Name Value Range Interpretation Description Data Sup porting Code Source(s) Document(s ) WBC 18.9 4.5-11.0 [place] x10(3)/[facility] RBC 4.01 4.50-5.90 [place] x10(6)/[facility] Hgb 9.9 gm/dL 13.5-17.5 [facility] Hct 30.2 % 41.0-53.0 [facility] MCV 76 fL 80-100 [facility] MCH 24.8 pg 26.0-34.0 [facility] MCHC 32.8 31.0-37.0 [place] gm/dL [facility] RDW 15.1 % 11.5-14.5 [facility] Platelet 404 150-350 [facility] x10(3)/[facility] MPV 8.7 fL 7.4-10.4 NO [facility] ID Date Data Source [id number] 06/23/2019 03:16:00 AM EDT [facility] Name Value Range Interpretation Description Data Sup porting Code Source(s) Document(s ) Troponin- 0.01 0.02-0.05 [place] I ng/mL [facility] ID Date Data Source [id number] 06/09/2019 05:56:00 PM EST [facility] Added by Discern Rule GLB_ADD_GFR_BMP Name Value Range Interpretation Code Description Data Jackie rce(s) Supporting Document(s ) eGFR-AA 74 >=60 [facility] mL/min/[address] The CKD-EPI equation for non- Nini [...] Mild decrease* G3a 45-59 Mild to moderate [id number] 30-44 Moderate to s evere decreaseG4 15-29 Severe decreaseG5 14 or less Kidney fa ilure eGFR-MEG 61 mL/min/1.73m2 >=60 [facility] The CKD-EPI equation for non- Nini rican [...] Mild decrease* G3a 45-59 Mild to moderate [id number] 30-44 Moderate to s evere decreaseG4 15-29 Severe decreaseG5 14 or less Kidney fa ilure ID Date Data Source [id number] 06/09/2019 05:56:00 PM EST [facility] Name Value Range Interpretation Description Data Sup porting Code Source(s) Document(s ) Magnesium 2.0 mg/dL 1.6-2.5 NO [facility] ID Date Data Source [id number] 06/09/2019 05:56:00 PM EST [facility] PATIENT ASKED TO COME BACK IN 30 MINS BRIDGET 06/09/2019 15:47:54 EST Name Value Range Interpretation Description Data Sup porting Code Source(s) Document(s ) Glucose Lvl 218 65-99 [place] mg/dL [facility] BUN 19.0 7.0-21.0 [place] mg/dL [facility] Creatinine 1.24 0.70-1.2 [place] mg/dL 0 [facility] BUN/Creat 15.3 7.0-29.0 [place] Ratio ratio [facility] Sodium Lvl 129 136-146 [place] mmol/L [facility] Potassium Lvl 3.7 3.5-5.1 [place] mmol/L [facility] Chloride 99 98-109 [place] mmol/L [facility] CO2 22 17-33 [place] mmol/L [facility] AGAP 8 5-15 [place] [facility] Calcium Lvl 8.0 8.3-10.2 [place] mg/dL [facility] ID Date Data Source [id number] 06/09/2019 09:59:00 PM [facility] Name Value Range Interpretation Description Data Sup porting Code Source(s) Document(s ) U Osmolality 601 50-1200 NO [facility] mOsm/kg [facility] Test performed on the [employer]-Osm ometer using freezing point depression. ID Date Data Source [id number] 06/09/2019 04:24:00 PM [facility] Name Value Range Interpretation Code Description Data Jackie rce(s) Supporting Document(s ) U Sodium 124 mmol/L NA [facility] Normal ranges for Sodium in random urine are diet dependent. U Potassium 27.6 mmol/L NA [facility] Normal ranges for Potassium in random ur ine are diet dependent. U Chloride 133 mmol/L 15-400 NO [facility] Normal ranges for Chloride in random uri ne are diet dependent. ID Date Data Source [id number] 06/09/2019 07:14:00 AM [facility] Name Value Range Interpretation Description Data Sup porting Code Source(s) Document(s ) Magnesium 1.7 mg/dL 1.6-2.5 NO [facility] ID Date Data Source [id number] 06/09/2019 07:14:00 AM [facility] Added by Discern Rule GLB_ADD_GFR_BMP Name Value Range Interpretation Code Description Data Jackie rce(s) Supporting Document(s ) eGFR-AA 84 >=60 NO [facility] mL/min/1.[address] [place] [address] The CKD-EPI equation for non- Nini rican [...] Mild decrease* G3a 45-59 Mild to moderate [id number] 30-44 Moderate to s evere decreaseG4 15-29 Severe decreaseG5 14 or less Kidney fa ilure eGFR-MEG 69 mL/min/1.73m2 >=60 NO [facility] The CKD-EPI equation for non- [...] Mild decrease* G3a 45-59 Mild to moderate kzkmvuqcO5k 30-44 Moderate to s evere decreaseG4 15-29 Severe decreaseG5 14 or less Kidney fa ilure ID Date Data Source [id number] 06/09/2019 07:14:00 AM EST [facility] Name Value Range Interpretation Description Data Sup porting Code Source(s) Document(s ) Glucose Lvl 150 65-99 [place] mg/dL [facility] BUN 20.0 7.0-21.0 [place] mg/dL [facility] Creatinine 1.11 0.70-1.2 [place] mg/dL 0 [facility] BUN/Creat 18.0 7.0-29.0 [place] Ratio ratio [facility] Sodium Lvl 129 136-146 [place] mmol/L [facility] Potassium Lvl 2.9 3.5-5.1 [place] mmol/L [facility] Chloride 99 98-109 [place] mmol/L [facility] CO2 22 17-33 [place] mmol/L [facility] AGAP 8 5-15 NO [facility] Calcium Lvl 8.3 8.3-10.2 NO [facility] mg/dL [facility] ID Date Data Source [id number] 06/08/2019 08:05:00 AM EST [facility] Added by Discern Rule GLB_ADD_GFR_BMP Name Value Range Interpretation Code Description Data Jackie rce(s) Supporting Document(s ) eGFR-AA 86 >=60 NO [facility] mL/min/1.[address] The CKD-EPI equation for non- Nini [...] Mild decrease* G3a 45-59 Mild to moderate [id number] 30-44 Moderate to s evere decreaseG4 15-29 [...] Mild decrease* G3a 45-59 Mild to moderate [id number] 30-44 Moderate to s evere decreaseG4 15-29 Severe decreaseG5 14 or less Kidney fa ilure ID Date Data Source [id number] 06/08/2019 08:05:00 AM EST [facility] Name Value Range Interpretation Description Data Sup porting Code Source(s) Document(s ) Glucose Lvl 158 65-99 [place] mg/dL [facility] BUN 21.0 7.0-21.0 [place] mg/dL [facility] Creatinine 1.09 0.70-1.2 [place] mg/dL 0 [facility] BUN/Creat 19.3 7.0-29.0 [place] Ratio ratio [facility] Sodium Lvl 131 136-146 [facility] mmol/L [facility] Potassium Lvl 3.0 3.5-5.1 LO [facility] mmol/L [facility] Chloride 100 98-109 [place] mmol/L [facility] CO2 23 17-33 [place] mmol/L [facility] AGAP 8 5-15 NO [facility] Calcium Lvl 8.5 8.3-10.2 [place] mg/dL [facility] ID Date Data Source [id number] 06/07/2019 08:50:00 AM EST [facility] Name Value Range Interpretation Description Data Sup porting Code Source(s) Document(s ) Neut Auto 67.3 % 40.0-70.0 NO [facility] Lymph Auto 21.9 % 22.0-44.0 LO [facility] Butts Auto 10.1 % 4.0-11.0 NO [facility] Eos Auto 0.3 % 0.0-8.0 NO [facility] Baso Auto 0.4 % 0.0-3.0 NO [facility] Neut 6.2 1.8-7.7 NO [place] Absolute x10(3)/[facility] Lymph 2.0 1.0-4.8 NO [place] Absolute x10(3)/[facility] Butts 0.9 0.2-1.2 NO [place] Absolute x10(3)/[facility] Eos Absolute 0.0 0.0-0.9 [place] x10(3)/[facility] Baso 0.0 0.0-0.3 [place] Absolute x10(3)/[facility] ID Date Data Source [id number] 06/07/2019 08:50:00 AM EST [facility] Name Value Range Interpretation Description Data Sup porting Code Source(s) Document(s ) WBC 9.1 4.5-11.0 [place] x10(3)/[facility] RBC 4.07 4.50-5.90 [place] x10(6)/[facility] Hgb 10.2 13.5-17.5 [place] gm/dL [facility] Hct 31.2 % 41.0-53.0 [facility] MCV 77 fL 80-100 [facility] MCH 25.1 pg 26.0-34.0 [facility] MCHC 32.8 31.0-37.0 [place] gm/dL [facility] RDW 14.7 % 11.5-14.5 [facility] Platelet 283 150-350 [place] x10(3)/[facility] MPV 7.9 fL 7.4-10.4 [facility] ID Date Data Source [id number] 06/07/2019 08:02:00 AM [facility] Added by Discern Rule GLB_ADD_GFR_RENAL Name Value Range Interpretation Code Description Data Jackie rce(s) Supporting Document(s ) eGFR-AA >90 >=60 NO [facility] mL/min/[address] [place] [address] The CKD-EPI equation for non- Nini rican [...] Mild decrease* G3a 45-59 Mild to moderate [id number] 30-44 Moderate to s evere decreaseG4 15-29 Severe decreaseG5 14 or less Kidney fa ilure eGFR-MEG 77 mL/min/1.73m2 >=60 NO [facility] The CKD-EPI [...] Mild decrease* G3a 45-59 Mild to moderate [id number] 30-44 Moderate to s evere decreaseG4 15-29 Severe decreaseG5 14 or less Kidney fa [facility] ID Date Data Source [id number] 06/07/2019 08:02:00 AM EST [facility] Name Value Range Interpretation Description Data Sup porting Code Source(s) Document(s ) Albumin Lvl 2.8 3.7-5.3 [place] gm/dL [facility] Calcium Lvl 8.2 8.3-10.2 [place] mg/dL [facility] CO2 23 17-33 [place] mmol/L [facility] Chloride 103 98-109 [place] mmol/L [facility] Creatinine 1.01 0.70-1.2 [place] mg/dL 0 [facility] Glucose Lvl 162 65-99 [place] mg/dL [facility] Phosphorus 2.3 2.5-5.0 [place] mg/dL [facility] BUN 19.0 7.0-21.0 [place] mg/dL [facility] Sodium Lvl 133 136-146 [place] mmol/L [facility] Potassium Lvl 3.1 3.5-5.1 [place] mmol/L [facility] BUN/Creat 18.8 7.0-29.0 [place] Ratio ratio [facility] ID Date Data Source [id number] 06/07/2019 08:02:00 AM [facility] Name Value Range Interpretation Description Data Sup porting Code Source(s) Document(s ) Magnesium 1.8 mg/dL 1.6-2.5 NO [place] [facility] ID Date Data Source [id number] 06/06/2019 01:07:00 PM [facility] Patient Name: KARSTEN GIBBS EMRN: [id number] General DiagnosticACCESSION EXAM DATE/TIME PROCEDURE ORDERING PROVIDER [id number] 06/06/2019 13:01 EST XR Abdomen 2 Views Solitario CLINTON, Dequan Floyd (Verified)Nikki son For Exam(XR Abdomen 2 Views) Abd [...] of this patient. Final Dictated: Jeffery Porter DO. 0 06/06/19 13:06Signed: Jeffery Porter DO S. 06/06/19 13:07Transcribed by: ESK Name Value Range Interpretation Code Description Data Jackie rce(s) Supporting Document(s ) ID Date Data Source [id number] 06/06/2019 09:04:00 AM [facility] Name Value Range Interpretation Description Data Sup porting Code Source(s) Document(s ) Magnesium 2.0 mg/dL 1.6-2.5 [facility] ID Date Data Source [id number] 06/06/2019 09:04:00 AM [facility] Added by Discern Rule GLB_ADD_GFR_CMP Name Value Range Interpretation Code Description Data Jackie rce(s) Supporting Document(s ) eGFR-AA 69 >=60 [facility] mL/min/[address] The CKD-EPI equation for non- [facility] rican individuals is used to calculate the [...] Mild decrease* G3a 45-59 Mild to moderate ykfzizikY2k 30-44 Moderate to s evere decreaseG4 15-29 Severe decreaseG5 14 or less Kidney fa ilure eGFR-MEG 57 mL/min/1.73m2 >=60 [facility] The CKD-EPI equation for non- Nini [...] Mild decrease* G3a 45-59 Mild to moderate uzlghpicR9m 30-44 Moderate to s evere decreaseG4 15-29 Severe decreaseG5 14 or less Kidney fa ilure ID Date Data Source [id number] 06/06/2019 09:04:00 AM EST [facility] Name Value Range Interpretation Description Data Sup porting Code Source(s) Document(s ) Glucose Lvl 149 65-99 [place] mg/dL [facility] BUN 28.0 7.0-21.0 [place] mg/dL [facility] Creatinine 1.32 0.70-1.2 [place] mg/dL 0 [facility] BUN/Creat 21.2 7.0-29.0 [place] Ratio ratio [facility] Sodium Lvl 134 136-146 [place] mmol/L [facility] Potassium Lvl 3.2 3.5-5.1 [place] mmol/L [facility] Chloride 104 98-109 [place] mmol/L [facility] CO2 21 17-33 [place] mmol/L [facility] AGAP 9 5-15 [place] [facility] Calcium Lvl 8.1 8.3-10.2 [place] mg/dL [facility] Total Protein 7.7 6.0-8.3 [place] gm/dL [facility] Albumin Lvl 3.2 3.7-5.3 [place] gm/dL [facility] Glob 4.5 2.0-4.5 [place] gm/dL [facility] A/G Ratio 0.7 1.0-2.2 [place] ratio [facility] Bili Total 0.8 0.4-1.1 [place] mg/dL [facility] Alk Phos 91 IU/L 30-125 NO [facility] AST 13 IU/L 10-35 NO [facility] ALT 13 IU/L 8-40 NO [facility] ID Date Data Source [id number] 06/06/2019 08:43:00 AM EST [facility] Name Value Range Interpretation Description Data Sup porting Code Source(s) Document(s ) Neut Auto 74.4 % 40.0-70.0 [facility] Lymph Auto 16.3 % 22.0-44.0 [facility] Butts Auto 8.5 % 4.0-11.0 [facility] Eos Auto 0.4 % 0.0-8.0 NO [facility] Baso Auto 0.4 % 0.0-3.0 [facility] Neut 7.6 1.8-7.7 [place] Absolute x10(3)/[facility] Lymph 1.7 1.0-4.8 [place] Absolute x10(3)/[facility] Butts 0.9 0.2-1.2 [place] Absolute x10(3)/[facility] Eos Absolute 0.0 0.0-0.9 [place] x10(3)/[facility] Baso 0.0 0.0-0.3 [place] Absolute x10(3)/[facility] ID Date Data Source [id number] 06/06/2019 08:43:00 AM EST [facility] Name Value Range Interpretation Description Data Sup porting Code Source(s) Document(s ) WBC 10.2 4.5-11.0 [place] x10(3)/[facility] RBC 3.90 4.50-5.90 [place] x10(6)/[facility] Hgb 9.6 gm/dL 13.5-17.5 [facility] Hct 30.6 % 41.0-53.0 [facility] MCV 78 fL 80-100 [facility] MCH 24.5 pg 26.0-34.0 [facility] MCHC 31.3 31.0-37.0 NO [facility] gm/dL [facility] RDW 14.8 % 11.5-14.5 [facility] Platelet 296 150-350 NO [facility] x10(3)/[facility] MPV 7.8 fL 7.4-10.4 [facility] ID Date Data Source [id number] 06/05/2019 08:46:00 PM [facility] UA Microscopic added by rubio Baron to an Abnormal Macroscopic Result. Name Value Range Interpretation Description Data Sup porting Code Source(s) Document(s ) UA WBC None Seen AB [facility] UA RBC None Seen AB [facility] UA Bacteria None Seen NO [facility] UA Hyal Cast None Seen AB [facility] UA Fine Gran None Seen [facility] ID Date Data Source [id number] 06/05/2019 08:39:00 PM [facility] Name Value Range Interpretation Description Data Sup porting Code Source(s) Document(s ) UA Color Yellow NO [facility] UA Appear Clear NO [facility] UA pH 5.0-8.0 [facility] UA Spec Grav 1.021 1.005-1.030 [facility] UA Glucose Negative [facility] UA Ketones Negative [facility] UA Urobilinogen 0.2-1.0 [facility] UA Bili Negative [facility] UA Blood Negative AB [facility] UA Protein Negative AB [facility] UA Nitrite Negative NO [facility] UA Leuk Est Negative NO [facility] ID Date Data Source [id number] 06/05/2019 08:39:00 PM EST [facility] Name Value Range Interpretation Description Data Sup porting Code Source(s) Document(s ) U Amph Not Detected NO [facility] Scr [facility] Result created by [employer] rule.Substance of abuse cutoff levels:Amphetamine...................... .....1000 mA/minBarbiturate....................... .....300 mA/minBenzodiazepine.................... .....200 mA/minCannibinoid....................... ......50 mA/minCocaine........................... .....300 mA/minOpiates........................... .....300 mA/minPhencyclidine (PCP).....................25 mA/minMetha done..............................300 mA/minPropoxypene....................... .....300 mA/minPlease note: This is a urine screening test only.Positive results are presumptive and are not confirmed by a secondary method. Unconfirmed screening results are to be used only for medical purposes. U Johanny Scr Not Detected NO [facility] Result created by Discern rule. U Benzodia Scr Not Detected NO [facility] Result created by Discern rule. U Cannab Scr Not Detected NO [facility] Result created by Discern rule. U Cocaine Scr Not Detected NO [facility] Result created by Discern rule. U Opiate Scr Not Detected NA [facility] Result created by Discern rule.This Opia te assay does NOT detect the semi-synthetic opioids Oxycontin, Oxycodone, Percodan, or Percocet. U Phencyclidine Not Detected NO [facility] Result created by Discern rule. U Propoxyphene Not Detected NA [facility] Result created by Discern rule. U Methadone Not Detected NO [facility] Result created by Discern rule. ID Date Data Source [id number] 06/06/2019 12:29:00 PM [facility] Name Value Range Interpretation Description Data Sup porting Code Source(s) Document(s ) Hemoglobin A1C 7.1 % <=5.6 [facility] 5.7-6.4% Pre-diabetes> 6.4% Diagno stic for diabetes(Summarized from [place] [employer] 2018 Standards)This test was performed using the [employer] Hb 9210 Analyzer utilizing [employer]. ID Date Data Source [id number] 06/05/2019 06:50:00 PM [facility] Added by Discern Rule GLB_ADD_GFR_BMP Name Value Range Interpretation Code Description Data Jackie rce(s) Supporting Document(s ) eGFR-AA 46 >=60 [facility] mL/min/1.[address] [place] [address] The CKD-EPI equation for non- Nini rican [...] Mild decrease* G3a 45-59 Mild to moderate rzyvuutaO7h 30-44 Moderate to s evere decreaseG4 15-29 [...] Mild decrease* G3a 45-59 Mild to moderate [id number] 30-44 Moderate to s evere decreaseG4 15-29 Severe decreaseG5 14 or less Kidney fa reji ID Date Data Source [id number] 06/05/2019 06:50:00 PM EST [facility] Name Value Range Interpretation Description Data Sup porting Code Source(s) Document(s ) Glucose Lvl 161 65-99 [place] mg/dL [facility] BUN 36.0 7.0-21.0 [place] mg/dL [facility] Creatinine 1.87 0.70-1.2 [place] mg/dL 0 [facility] BUN/Creat 19.3 7.0-29.0 [place] Ratio ratio [facility] Sodium Lvl 137 136-146 [place] mmol/L [facility] Potassium Lvl 3.5 3.5-5.1 [place] mmol/L [facility] Chloride 108 98-109 [place] mmol/L [facility] CO2 22 17-33 [place] mmol/L [facility] AGAP 7 5-15 NO [facility] Calcium Lvl 8.2 8.3-10.2 [place] mg/dL [facility] ID Date Data Source [id number] 06/05/2019 03:11:00 PM EST [facility] Patient Name: KARSTEN GIBBS EMRN: [id number] UltrasoundACCESSION EXAM DATE/TIME PROCEDURE ORDERING PROVIDER [id number] 14:22 EST US Kidneys Solitario [place], Dequan [...] Supporting Document(s ) ID Date Data Source [id number] 06/05/2019 08:20:00 AM EST [facility] Added by Discern Rule GLB_ADD_GFR_BMP Name Value Range Interpretation Code Description Data Jackie rce(s) Supporting Document(s ) eGFR-AA 40 >=60 [facility] mL/min/1.[address] [place] [address] The CKD-EPI equation for non- Nini rican [...] Mild decrease* G3a 45-59 Mild to moderate guwrgltdH2f 30-44 Moderate to s evere decreaseG4 15-29 Severe decreaseG5 14 or less Kidney fa ilure eGFR-MEG 33 mL/min/1.73m2 >=60 [facility] The CKD-EPI equation for non- Nini [...] Mild decrease* G3a 45-59 Mild to moderate [id number] 30-44 Moderate to s evere decreaseG4 15-29 Severe decreaseG5 14 or less Kidney fa ilure ID Date Data Source [id number] 06/05/2019 08:20:00 AM EST [facility] Name Value Range Interpretation Description Data Sup porting Code Source(s) Document(s ) Glucose Lvl 148 65-99 [place] mg/dL [facility] BUN 41.0 7.0-21.0 [place] mg/dL [facility] Creatinine 2.12 0.70-1.2 [place] mg/dL 0 [facility] BUN/Creat 19.3 7.0-29.0 [place] Ratio ratio [facility] Sodium Lvl 137 136-146 [place] mmol/L [facility] Potassium Lvl 3.6 3.5-5.1 [place] mmol/L [facility] Chloride 109 98-109 [place] mmol/L [facility] CO2 22 17-33 [place] mmol/L [facility] AGAP 6 5-15 NO [facility] Calcium Lvl 8.0 8.3-10.2 [place] mg/dL [facility] ID Date Data Source [id number] 06/05/2019 08:08:00 AM EST [facility] Name Value Range Interpretation Description Data Sup porting Code Source(s) Document(s ) Neut Auto 74.8 % 40.0-70.0 [facility] Lymph Auto 14.2 % 22.0-44.0 LO [facility] Butts Auto 10.5 % 4.0-11.0 NO [facility] Eos Auto 0.1 % 0.0-8.0 NO [facility] Baso Auto 0.4 % 0.0-3.0 NO [facility] Neut 8.1 1.8-7.7 [place] Absolute x10(3)/[facility] Lymph 1.5 1.0-4.8 [place] Absolute x10(3)/[facility] Butts 1.1 0.2-1.2 NO [place] Absolute x10(3)/[facility] Eos Absolute 0.0 0.0-0.9 [place] x10(3)/[facility] Baso 0.0 0.0-0.3 [place] Absolute x10(3)/[facility] ID Date Data Source [id number] 06/05/2019 08:08:00 AM EST [facility] Name Value Range Interpretation Description Data Sup porting Code Source(s) Document(s ) WBC 10.8 4.5-11.0 [place] x10(3)/[facility] RBC 3.40 4.50-5.90 [facility] Hgb 8.5 gm/dL 13.5-17.5 [facility] Hct 26.3 % 41.0-53.0 [facility] MCV 77 fL 80-100 [facility] MCH 24.9 pg 26.0-34.0 [facility] MCHC 32.2 31.0-37.0 [place] gm/dL [facility] RDW 15.0 % 11.5-14.5 [facility] Platelet 262 150-350 NO [facility] x10(3)/[facility] MPV 7.9 fL 7.4-10.4 [facility] ID Date Data Source [id number] 06/04/2019 10:04:00 PM [facility] Name Value Range Interpretation Code Description Data Jackie rce(s) Supporting Document(s ) D-Dimer 491 ng/ml 0-230 [facility] If the result is in the [...] may be present. ID Date Data Source [id number] 06/04/2019 10:03:00 PM [facility] Name Value Range Interpretation Description Data Sup porting Code Source(s) Document(s ) Lactic 1.0 0.9-2.0 NO [place] Lvl mmol/L [facility] ID Date Data Source [id number] 06/04/2019 09:57:00 PM [facility] Name Value Range Interpretation Code Description Data Jackie rce(s) Supporting Document(s ) INR 1.1 ratio 0.9-1.2 [facility] Indications INRProphylaxis of venous thromo-embolism: Non-hip surgery..... ..........................1.5 - 2.5 Hip surgery................................. ..2.0 - 3.0Deep Vein Thrombosis or Pulmonary Embolism........2.0 - 3.0Prevention of s ystemic embolism in valvular heart disease, tissue prosthetic heart valvesor acute [place].......................................2.0 - 3.5Prevention of embolism in mechanical heartvalves or recurrent systemic embolism.............3.0 - 4.5 PT 13.2 second(s) 9.5-12.5 [facility] ID Date Data Source [id number] 06/04/2019 09:28:00 PM [facility] Name Value Range Interpretation Code Description Data Jackie rce(s) Supporting Document(s ) BNP 202 pg/mL 1-99 [facility] ID Date Data Source [id number] 06/04/2019 09:24:00 PM [facility] Name Value Range Interpretation Description Data Sup porting Code Source(s) Document(s ) Troponin- 0.02 0.02-0.05 [facility] I ng/mL [facility] ID Date Data Source [id number] 06/04/2019 09:20:00 PM [facility] Name Value Range Interpretation Description Data Sup porting Code Source(s) Document(s ) Magnesium 2.5 mg/dL 1.6-2.5 NO [facility] ID Date Data Source [id number] 06/04/2019 09:20:00 PM [facility] Name Value Range Interpretation Code Description Data Jackie rce(s) Supporting Document(s ) Lipase Lvl 22 IU/L 10-59 NO [facility] ID Date Data Source [id number] 06/04/2019 09:20:00 PM [facility] Added by Discern Rule GLB_ADD_GFR_CMP Name Value Range Interpretation Code Description Data Jackie rce(s) Supporting Document(s ) eGFR-AA 42 >=60 [facility] mL/min/1.[address] The CKD-EPI equation for non- Nini [...] Mild decrease* G3a 45-59 Mild to moderate xzuojondF1v 30-44 Moderate to s evere decreaseG4 15-29 Severe decreaseG5 14 or less Kidney fa ilure eGFR-MEG 35 mL/min/1.73m2 >=60 [facility] The CKD-EPI equation for non- Nini [...] Mild decrease* G3a 45-59 Mild to moderate ogyplmguG4r 30-44 Moderate to s evere decreaseG4 15-29 Severe decreaseG5 14 or less Kidney fa ilure ID Date Data Source [id number] 06/04/2019 09:20:00 PM EST [facility] Name Value Range Interpretation Description Data Sup porting Code Source(s) Document(s ) Glucose Lvl 171 65-99 [place] mg/dL [facility] BUN 39.0 7.0-21.0 [place] mg/dL [facility] Creatinine 2.02 0.70-1.2 [place] mg/dL 0 [facility] BUN/Creat 19.3 7.0-29.0 [place] Ratio ratio [facility] Sodium Lvl 136 136-146 [place] mmol/L [facility] Potassium Lvl 4.0 3.5-5.1 [place] mmol/L [facility] Chloride 103 98-109 [place] mmol/L [facility] CO2 22 17-33 [place] mmol/L [facility] AGAP 11 5-15 [place] [facility] Calcium Lvl 8.7 8.3-10.2 [place] mg/dL [facility] Total Protein 8.6 6.0-8.3 [place] gm/dL [facility] Albumin Lvl 3.6 3.7-5.3 [place] gm/dL [facility] Glob 5.0 2.0-4.5 [place] gm/dL [facility] A/G Ratio 0.7 1.0-2.2 [place] ratio [facility] Bili Total 0.9 0.4-1.1 [place] mg/dL [facility] Alk Phos 101 IU/L 30-125 NO [facility] AST 18 IU/L 10-35 NO [facility] ALT 16 IU/L 8-40 NO [facility] ID Date Data Source [id number] 06/04/2019 09:20:00 PM EST [facility] Name Value Range Interpretation Description Data Sup porting Code Source(s) Document(s ) Amylase Lvl 40 IU/L 26-121 NO [facility] ID Date Data Source [id number] 06/04/2019 09:07:00 PM EST [facility] Name Value Range Interpretation Description Data Sup porting Code Source(s) Document(s ) Neut Auto 86.9 % 40.0-70.0 [facility] Lymph Auto 7.6 % 22.0-44.0 LO [facility] Butts Auto 5.1 % 4.0-11.0 [facility] Eos Auto 0.0 % 0.0-8.0 NO [facility] Baso Auto 0.4 % 0.0-3.0 [facility] Neut 12.5 1.8-7.7 [place] Absolute x10(3)/[facility] Lymph 1.1 1.0-4.8 [place] Absolute x10(3)/[facility] Butts 0.7 0.2-1.2 [place] Absolute x10(3)/[facility] Eos Absolute 0.0 0.0-0.9 [place] x10(3)/[facility] Baso 0.1 0.0-0.3 [place] Absolute x10(3)/[facility] ID Date Data Source [id number] 06/04/2019 09:07:00 PM EST [facility] Name Value Range Interpretation Description Data Sup porting Code Source(s) Document(s ) WBC 14.4 4.5-11.0 [place] x10(3)/[facility] RBC 4.18 4.50-5.90 [place] x10(6)/[facility] Hgb 10.3 13.5-17.5 [facility] Hct 32.6 % 41.0-53.0 [facility] MCV 78 fL 80-100 [facility] MCH 24.6 pg 26.0-34.0 [facility] MCHC 31.6 31.0-37.0 [facility] RDW 15.4 % 11.5-14.5 [facility] Platelet 303 150-350 NO [facility] x10(3)/[facility] MPV 8.2 fL 7.4-10.4 [facility] ID Date Data Source [id number] 06/04/2019 09:01:00 PM [facility] Name Value Range Interpretation Description Data Sup porting Code Source(s) Document(s ) Influenza A Negative [facility] Test Methodology is Immunochromatographi c test for [...] culture is indicated. Influenza B Ag Negative [facility] Test Methodology is Immunochromatographi c test for [...] is indicated. Influenza A/B Ag Source NA [facility] GLB_FLU_AB_AG_SPEC_POST ID Date Data Source [id number] 06/04/2019 08:14:00 PM [facility] Patient Name: KARSTEN GIBBS EMRN: [id number] General DiagnosticACCESSION EXAM DATE/TIME PROCEDURE ORDERING PROVIDER [id number] 06/04/2019 20:08 EST XR Chest Portable [place] [...] evaluation of this patient. Fin al Dictated: Nacho Segovia MD 06/04/19 20:13Signed: Ivan Segovia MD 06/04/19 20:14Transcribed by: REFUGIO Name Value Range Interpretation Code Description Data Jackie rce(s) Supporting Document(s ) ID Date Data Source [id number] 06/04/2019 05:12:00 PM [facility] Cleaner Assistant:LUCY RUIZ Name Value Range Interpretation Description Data Sup porting Code Source(s) Document(s ) Glucose 144 mg/dL [place] [Mass/volume] Hospital in Capillary blood by Glucometer ID Date Data Source [id number] 02/11/2019 07:45:00 AM [facility] Cleaner Assistant:YUYL ORTEGA Name Value Range Interpretation Description Data Sup porting Code Source(s) Document(s ) Glucose 205 mg/dL [place] [Mass/volume] Hospital in Capillary blood by Glucometer ID Date Data Source [id number] 02/10/2019 11:26:00 AM [facility] Name Value Range Interpretation Description Data Sup porting Code Source(s) Document(s ) GLUCOSE RN Notified [facility] Hospital ID Date Data Source [id number] 02/10/2019 05:29:00 AM [facility] ADA RECOMMENDATIONS: NON-DIABETES: 4.0-6.0% CONTROLLED DIABETES: 6.0-8.0% UNCONTROLLED DIABETE S: UP TO 20%RECOMMENDED ADA RESULT FOR THERAPY: HEMOGLOBIN A1C RESULT LESS FRANK N 7%.NOTE: METHOD CHANGE EFFECTIVE 11/06/14. Name Value Range Interpretation Description Data Sup porting Code Source(s) Document(s ) Hemoglobin 7.0 % [place] A1c/Hemoglobin. Hospital total in Blood ID Date Data Source [id number] 02/10/2019 05:29:00 AM [facility] Name Value Range Interpretation Description Data Sup porting Code Source(s) Document(s ) Calcium 8.3 mg/dL [place] [Mass/volume Hospital ] in Serum or Plasma ID Date Data Source [id number] 02/10/2019 05:29:00 AM [facility] UNITS ARE IN ml/min/1.73m2.IF PATIENT IS -[place]CC[place], MULTIPLY REPORTED RESULT BY 1.21. Name Value Range Interpretation Description Data Sup porting Code Source(s) Document(s ) Glomerular > 60 [place] filtration mL/min Hospital rate/1.73 sq M.predicted [Volume Rate/Area] in Serum or Plasma by Creatinine-bas ed formula (MDRD) ID Date Data Source [id number] 02/10/2019 05:29:00 AM [facility] Name Value Range Interpretation Code Description Data Jackie rce(s) Supporting Document(s ) Urea 15.0 [place] nitrogen/Cre Hospital atinine [Mass Ratio] in Serum or Plasma ID Date Data Source [id number] 02/10/2019 05:29:00 AM [facility] Name Value Range Interpretation Description Data Sup porting Code Source(s) Document(s ) Creatinine 1.2 mg/dL [place] [Mass/volume] Hospital in Serum or Plasma ID Date Data Source [id number] 02/10/2019 05:29:00 AM [facility] THIS RESULT HAS BEEN VERIFIED. Name Value Range Interpretation Description Data Sup porting Code Source(s) Document(s ) Urea 18 mg/dL [place] nitrogen Hospital [Mass/volume ] in Serum or Plasma ID Date Data Source [id number] 02/10/2019 05:29:00 AM [facility] Name Value Range Interpretation Code Description Data Jackie rce(s) Supporting Document(s ) Anion gap in 9 [place] Serum or Hospital Plasma ID Date Data Source [id number] 02/10/2019 05:29:00 AM [facility] Name Value Range Interpretation Description Data Sup porting Code Source(s) Document(s ) Carbon 24 mmol/L [place] dioxide, Hospital total [Moles/volu me] in Serum or Plasma ID Date Data Source [id number] 02/10/2019 05:29:00 AM [facility] Name Value Range Interpretation Description Data Sup porting Code Source(s) Document(s ) Chloride 105 [place] [Moles/volum mmol/L Hospital e] in Serum or Plasma ID Date Data Source [id number] 02/10/2019 05:29:00 AM [facility] Name Value Range Interpretation Description Data Sup porting Code Source(s) Document(s ) Potassium 4.4 [place] [Moles/volume mmol/L Hospital ] in Serum or Plasma ID Date Data Source [id number] 02/10/2019 05:29:00 AM [facility] Name Value Range Interpretation Description Data Sup porting Code Source(s) Document(s ) Sodium 134 mmol/L [place] [Moles/volu [facility]] in Serum or Plasma ID Date Data Source [id number] 02/10/2019 05:29:00 AM [facility] Name Value Range Interpretation Description Data Sup porting Code Source(s) Document(s ) Glucose 142 mg/dL [place] [Mass/volume Hospital ] in Serum or Plasma ID Date Data Source [id number] 02/10/2019 05:29:00 AM [facility] Value Range Interpretation Code Description Data Supporting Source(s) Document(s ) NUCLEATED RBCS 0.0 % [place] (AUTO Hospital DIFF%)DIS ID Date Data Source [id number] 02/10/2019 05:29:00 AM [facility] Value Range Interpretation Description Data Sup porting Code Source(s) Document(s ) Differential AUTOMATED [place] cell count [facility] method - Blood ID Date Data Source [id number] 02/10/2019 05:29:00 AM [facility] Name Value Range Interpretation Description Data Sup porting Code Source(s) Document(s ) Immature 0.02 [place] granulocytes 10*3/uL Hospital [#/volume] in Blood by Automated count ID Date Data Source [id number] 02/10/2019 05:29:00 AM [facility] Name Value Range Interpretation Description Data Sup porting Code Source(s) Document(s ) Basophils 0.03 [place] [#/volume] in 10*3/uL Hospital Blood by Automated count ID Date Data Source [id number] 02/10/2019 05:29:00 AM [facility] Name Value Range Interpretation Description Data Sup porting Code Source(s) Document(s ) Eosinophils 0.35 [place] [#/volume] in 10*3/uL Hospital Blood by Automated count ID Date Data Source [id number] 02/10/2019 05:29:00 AM EST [place] [facility] Name Value Range Interpretation Description Data Sup porting Code Source(s) Document(s ) Monocytes 1.10 [place] [#/volume] in 10*3/uL Hospital Blood by Automated count ID Date Data Source [id number] 02/10/2019 05:29:00 AM EST [facility] Name Value Range Interpretation Description Data Sup porting Code Source(s) Document(s ) Lymphocytes 3.02 [place] [#/volume] in 10*3/uL Hospital Blood by Automated count ID Date Data Source [id number] 02/10/2019 05:29:00 AM EST [facility] Name Value Range Interpretation Description Data Sup porting Code Source(s) Document(s ) Neutrophils 3.80 [place] [#/volume] in 10*3/uL Hospital Blood by Automated count ID Date Data Source [id number] 02/10/2019 05:29:00 AM EST [facility] Value Range Interpretation Description Data Sup porting Code Source(s) Document(s ) Nucleated 0.0 % [place] erythrocytes/10 Hospital 0 leukocytes [Ratio] in Blood by Automated count ID Date Data Source [id number] 02/10/2019 05:29:00 AM EST [facility] Name Value Range Interpretation Description Data Sup porting Code Source(s) Document(s ) Immature 0.2 % [place] granulocytes/10 Hospital 0 leukocytes in Blood by Automated count ID Date Data Source [id number] 02/10/2019 05:29:00 AM EST [facility] Name Value Range Interpretation Description Data Sup porting Code Source(s) Document(s ) Basophils/100 0.4 % [place] leukocytes in Hospital Blood by Automated count ID Date Data Source [id number] 02/10/2019 05:29:00 AM [facility] Name Value Range Interpretation Description Data Sup porting Code Source(s) Document(s ) Eosinophils/100 4.2 % [place] leukocytes in Hospital Blood by Automated count ID Date Data Source [id number] 02/10/2019 05:29:00 AM EST [facility] Name Value Range Interpretation Description Data Sup porting Code Source(s) Document(s ) Monocytes/100 13.2 % [place] leukocytes in Hospital Blood by Automated count ID Date Data Source [id number] 02/10/2019 05:29:00 AM [facility] Hospital Name Value Range Interpretation Description Data Sup porting Code Source(s) Document(s ) Lymphocytes/10 36.3 % [place] 0 leukocytes Hospital in Blood by Automated count ID Date Data Source [id number] 02/10/2019 05:29:00 AM EST [facility] Name Value Range Interpretation Description Data Sup porting Code Source(s) Document(s ) Neutrophils/10 45.7 % [place] 0 leukocytes Hospital in Blood by Automated count ID Date Data Source [id number] 02/10/2019 05:29:00 AM [facility] Name Value Range Interpretation Description Data Sup porting Code Source(s) Document(s ) Platelet mean 11.7 fL [place] volume Hospital [Entitic volume] in Blood by Automated count ID Date Data Source [id number] 02/10/2019 05:29:00 AM [facility] Name Value Range Interpretation Description Data Sup porting Code Source(s) Document(s ) Platelets 196 [place] [#/volume] in 10*3/uL Hospital Blood by Automated count ID Date Data Source [id number] 02/10/2019 05:29:00 AM [facility] Name Value Range Interpretation Description Data Sup porting Code Source(s) Document(s ) Erythrocyte 17.0 % [place] distribution Hospital width [Ratio] by Automated count ID Date Data Source [id number] 02/10/2019 05:29:00 AM [facility] Value Range Interpretation Description Data Sup porting Code Source(s) Document(s ) Erythrocyte mean 32.1 [place] corpuscular g/dL Hospital hemoglobin concentration [Mass/volume] by Automated count ID Date Data Source [id number] 02/10/2019 05:29:00 AM [facility] Value Range Interpretation Description Data Sup porting Code Source(s) Document(s ) Erythrocyte 25.0 pg [facility] corpuscular hemoglobin [Entitic mass] by Automated count ID Date Data Source [id number] 02/10/2019 05:29:00 AM [facility] Value Range Interpretation Description Data Sup porting Code Source(s) Document(s ) Erythrocyte 77.9 fL [facility] corpuscular volume [Entitic volume] by Automated count ID Date Data Source [id number] 02/10/2019 05:29:00 AM [facility] Value Range Interpretation Description Data Sup porting Code Source(s) Document(s ) Hematocrit 26.5 % [place] [Volume Hospital Fraction] of Blood by Automated count ID Date Data Source [id number] 02/10/2019 05:29:00 AM [facility] Value Range Interpretation Description Data Sup porting Code Source(s) Document(s ) Hemoglobin 8.5 g/dL [place] [Mass/volume] Hospital in Blood ID Date Data Source [id number] 02/10/2019 05:29:00 AM [facility] Value Range Interpretation Description Data Sup porting Code Source(s) Document(s ) Erythrocytes 3.40 [place] [#/volume] in 10*6/uL Hospital Blood by Automated count ID Date Data Source [id number] 02/10/2019 05:29:00 AM EST [facility] Name Value Range Interpretation Description Data Sup porting Code Source(s) Document(s ) Leukocytes 8.3 [place] [#/volume] in 10*3/uL Hospital Blood by Automated count ID Date Data Source [id number] 02/06/2019 08:21:00 AM EDT [facility] Name Value Range Interpretation Description Data Sup porting Code Source(s) Document(s ) Aspartate 11 U/L White aminotransferase [place] [Enzymatic Hospital activity/volume] in Serum or Plasma ID Date Data Source [id number] 02/06/2019 08:21:00 AM EDT [facility] Name Value Range Interpretation Description Data Sup porting Code Source(s) Document(s ) Alanine 12 U/L [place] aminotransferase [place] [Enzymatic Hospital activity/volume] in Serum or Plasma ID Date Data Source [id number] 02/06/2019 08:21:00 AM EDT [facility] Name Value Range Interpretation Description Data Sup porting Code Source(s) Document(s ) Alkaline 104 U/L [place] phosphatase Hospital [Enzymatic activity/volume ] in Serum or Plasma ID Date Data Source [id number] 02/06/2019 08:21:00 AM EDT [facility] Name Value Range Interpretation Description Data Sup porting Code Source(s) Document(s ) Bilirubin.d 0.2 mg/dL [facility] [Mass/volum e] in Serum or Plasma ID Date Data Source [id number] 02/06/2019 08:21:00 AM EDT [facility] Name Value Range Interpretation Description Data Sup porting Code Source(s) Document(s ) Bilirubin.t 0.5 mg/dL [facility] [Mass/volum e] in Serum or Plasma ID Date Data Source [id number] 02/06/2019 08:21:00 AM EDT [facility] Name Value Range Interpretation Code Description Data Jackie rce(s) Supporting Document(s ) Albumin/Glob 1.1 [place] ulin [Mass Hospital Ratio] in Serum or Plasma ID Date Data Source [id number] 02/06/2019 08:21:00 AM EDT [facility] Name Value Range Interpretation Description Data Sup porting Code Source(s) Document(s ) Albumin 3.0 g/dL [place] [Mass/volume Hospital ] in Serum or Plasma ID Date Data Source [id number] 02/06/2019 08:21:00 AM EDT [facility] Value Range Interpretation Description Data Sup porting Code Source(s) Document(s ) Protein 5.7 g/dL [place] [Mass/volume Hospital ] in Serum or Plasma ID Date Data Source [id number] [facility] Description Data Sup porting Code Source(s) Document(s ) URINE OCCASIONAL [place] EPITHELIAL [facility] CELLS ID Date Data Source [id number] 02/03/2019 07:31:00 AM EDT [facility] Name Value Range Interpretation Description Data Sup porting Code Source(s) Document(s ) Erythrocytes 10-20 [place] [#/area] in /[HPF] Hospital Urine sediment by Automated count ID Date Data Source [id number] 02/03/2019 [facility] Interpretation Description Data Sup porting Code Source(s) Document(s ) Leukocytes 3-5 [place] [#/area] in /[HPF] Hospital Urine sediment by Automated count ID Date Data Source [id number] 02/03/2019 07:31:00 AM EDT [facility] Name Value Range Interpretation Description Data Sup porting Code Source(s) Document(s ) Leukocyte NEGATIVE [place] esterase Hospital [Presence] in Urine by Test strip ID Date Data Source [id number] 02/03/2019 07:31:00 AM EDT [facility] [facility] Name Value Range Interpretation Description Data Sup porting Code Source(s) Document(s ) URINE NEGATIVE [place] NITRITES Hospital ID Date Data Source [id number] 02/03/2019 07:31:00 AM EDT [facility] Name Value Range Interpretation Description Data Sup porting Code Source(s) Document(s ) Erythrocytes TRACE [place] [#/volume] in Hospital Urine by Test strip ID Date Data Source [id number] 02/03/2019 07:31:00 AM EDT [facility] Name Value Range Interpretation Code Description Data Jackie rce(s) Supporting Document(s ) Bilirubin. NEGATIVE [place] total Hospital [Presence] in Urine by Test strip ID Date Data Source [id number] 02/03/2019 07:31:00 AM EDT [facility] Name Value Range Interpretation Description Data Sup porting Code Source(s) Document(s ) Urobilinogen 0.2 [place] [Units/volume] mg/dL Hospital in Urine by Test strip ID Date Data Source [id number] 02/03/2019 07:31:00 AM EDT [facility] Name Value Range Interpretation Code Description Data Jackie rce(s) Supporting Document(s ) Ketones TRACE [place] [Mass/volume Hospital ] in Urine by Test strip ID Date Data Source [id number] 02/03/2019 07:31:00 AM EDT [facility] Name Value Range Interpretation Code Description Data Jackie rce(s) Supporting Document(s ) Glucose 1+ [place] [Mass/volume Hospital ] in Urine by Test strip ID Date Data Source [id number] 02/03/2019 [facility] Interpretation Code Description Data Jackie rce(s) Supporting Document(s ) Protein 4+ [place] [Presence] Hospital in Urine by Test strip ID Date Data Source [id number] 02/03/2019 [facility] Value Range Interpretation Code Description Data Jackie rce(s) Supporting Document(s ) pH of Urine 6.5 [place] by Test Hospital strip ID Date Data Source [id number] 02/03/2019 07:31:[address] [facility] Name Value Range Interpretation Code Description Data Supporting Source(s) Document(s ) Specific 1.022 [place] gravity of Hospital Urine by Test strip ID Date Data Source [id number] 02/03/2019 07:31:[address] [facility] Name Value Range Interpretation Description Data Sup porting Code Source(s) Document(s ) Clarity in Urine CLEAR [place] by Refractometry [facility] automated ID Date Data Source [id number] 02/03/2019 07:31:[address] [facility] Name Value Range Interpretation Code Description Data Jackie rce(s) Supporting Document(s ) Color of YELLOW [place] Urine Hospital ID Date Data Source [id number] 01/29/2019 07:20:[address] [facility] TEST PERFORMED BY SIEMENS [facility]ENS[facility] CHEMILUMINESCENCE METHOD. Name Value Range Interpretation Description Data Sup porting Code Source(s) Document(s ) Troponin < 0.01 [place] I.cardiac ng/mL Hospital [Mass/volume ] in Serum or Plasma ID Date Data Source [id number] 01/29/2019 07:20:[address] [facility] Name Value Range Interpretation Code Description Data Jackie rce(s) Supporting Document(s ) Lipase 25 U/L [place] [Enzymatic Hospital activity/vo lume] in Serum or Plasma ID Date Data Source [id number] 01/20/2019 08:52:[address] [facility] Cleaner Assistant:DORA MAKSIM Name Value Range Interpretation Description Data Sup porting Code Source(s) Document(s ) Glucose 104 mg/dL [place] [Mass/volume] Hospital in Capillary blood by Glucometer ID Date Data Source [id number] 01/15/2019 08:42:00 AM [facility] Value Range Interpretation Description Data Sup porting Code Source(s) Document(s ) Platelet mean 9.5 fL [place] volume Hospital [Entitic volume] in Blood by Automated count ID Date Data Source [id number] 01/15/2019 08:42:[address] [facility] Name Value Range Interpretation Description Data Sup porting Code Source(s) Document(s ) Platelets 386 [place] [#/volume] in 10*3/uL Hospital Blood by Automated count ID Date Data Source [id number] [facility] Value Range Interpretation Description Data Sup porting Code Source(s) Document(s ) Erythrocyte 18.7 % [place] distribution Hospital width [Ratio] by Automated count ID Date Data Source [id number] 01/15/2019 08:42:[address] [facility] Name Value Range Interpretation Description Data Sup porting Code Source(s) Document(s ) Erythrocyte mean 32.7 [place] corpuscular g/dL Hospital hemoglobin concentration [Mass/volume] by Automated count ID Date Data Source [id number] 01/15/2019 08:42:00 AM EDT [facility] Value Range Interpretation Description Data Sup porting Code Source(s) Document(s ) Erythrocyte 24.8 pg [facility] corpuscular hemoglobin [Entitic mass] by Automated count ID Date Data Source [id number] 01/15/2019 08:42:00 AM EDT [facility] Value Range Interpretation Description Data Sup porting Code Source(s) Document(s ) Erythrocyte 76.1 fL [facility] corpuscular volume [Entitic volume] by Automated count ID Date Data Source [id number] 01/15/2019 08:42:00 AM [facility] Value Range Interpretation Description Data Sup porting Code Source(s) Document(s ) Hematocrit 24.5 % [place] [Volume Hospital Fraction] of Blood by Automated count ID Date Data Source [id number] 01/15/2019 08:42:00 AM [facility] Value Range Interpretation Description Data Sup porting Code Source(s) Document(s ) Hemoglobin 8.0 g/dL [place] [Mass/volume] Hospital in Blood ID Date Data Source [id number] 01/15/2019 08:42:00 AM EDT [facility] Value Range Interpretation Description Data Sup porting Code Source(s) Document(s ) Erythrocytes 3.22 [place] [#/volume] in 10*6/uL Hospital Blood by Automated count ID Date Data Source [id number] 01/[facility] Interpretation Description Data Sup porting Code Source(s) Document(s ) Leukocytes 6.6 [place] [#/volume] in 10*3/uL Hospital Blood by Automated count ID Date Data Source [id number] 01/15/2019 07:42:00 AM EDT [facility] Name Value Range Interpretation Description Data Sup porting Code Source(s) Document(s ) Calcium 8.5 mg/dL [place] [Mass/volume Hospital ] in Serum or Plasma ID Date Data Source [id number] 01/15/2019 07:42:00 AM EDT [facility] Name Value Range Interpretation Code Description Data Jackie rce(s) Supporting Document(s ) Urea 13.6 [place] nitrogen/Cre Hospital atinine [Mass Ratio] in Serum or Plasma ID Date Data Source [id number] 01/15/2019 07:42:00 AM EDT [facility] Name Value Range Interpretation Description Data Sup porting Code Source(s) Document(s ) Creatinine 1.1 mg/dL [place] [Mass/volume] Hospital in Serum or Plasma ID Date Data Source [id number] 01/15/2019 07:42:00 AM EDT [facility] Name Value Range Interpretation Description Data Sup porting Code Source(s) Document(s ) Urea 15 mg/dL [place] nitrogen Hospital [Mass/volume ] in Serum or Plasma ID Date Data Source [id number] 01/15/2019 07:42:00 AM EDT [facility] Name Value Range Interpretation Code Description Data Jackie rce(s) Supporting Document(s ) Anion gap in 10 [place] Serum or Hospital Plasma ID Date Data Source [id number] 01/15/2019 07:42:00 AM EDT [facility] Name Value Range Interpretation Description Data Sup porting Code Source(s) Document(s ) Carbon 28 mmol/L [facility] total [Moles/volu me] in Serum or Plasma ID Date Data Source [id number] 01/15/2019 07:42:[address] [facility] Name Value Range Interpretation Description Data Sup porting Code Source(s) Document(s ) Chloride 102 [place] [Moles/volum mmol/L Hospital e] in Serum or Plasma ID Date Data Source [id number] 01/15/2019 07:42:[address] [facility] Name Value Range Interpretation Description Data Sup porting Code Source(s) Document(s ) Potassium 3.9 [place] [Moles/volume mmol/L Hospital ] in Serum or Plasma ID Date Data Source [id number] 01/15/2019 07:42:[address] [facility] Name Value Range Interpretation Description Data Sup porting Code Source(s) Document(s ) Sodium 136 mmol/L [place] [Moles/volu Hospital me] in Serum or Plasma ID Date Data Source [id number] 01/15/2019 07:42:[address] [facility] Name Value Range Interpretation Description Data Sup porting Code Source(s) Document(s ) Glucose 124 mg/dL [place] [Mass/volume Hospital ] in Serum or Plasma ID Date Data Source [id number] 01/15/2019 02:08:[address] [facility] NOTE: NEW REFERENCE RANGE, EFFECTIVE . Name Value Range Interpretation Description Data Sup porting Code Source(s) Document(s ) Vancomycin 12.8 [place] [Mass/volume] ug/mL Hospital in Serum or Plasma --trough ID Date Data Source [id number] 01/15/2019 02:08:[address] [facility] NOTE: NEW REFERENCE RANGE, EFFECTIVE . Name Value Range Interpretation Description Data Sup porting Code Source(s) Document(s ) Vancomycin 12.8 [place] [Mass/volume] ug/mL Hospital in Serum or Plasma --trough ID Date Data Source [id number] 01/11/2019 10:40:[address] [facility] Name Value Range Interpretation Description Data Sup porting Code Source(s) Document(s ) MEAN 80.2 fL [facility] VOLUME ID Date Data Source [id number] 01/11/2019 10:40:00 AM [facility] Value Range Interpretation Description Data Sup porting Code Source(s) Document(s ) MEAN 80.2 fL [facility] VOLUME ID Date Data Source [id number] 01/10/2019 07:19:00 AM [facility] Value Range Interpretation Description Data Sup porting Code Source(s) Document(s ) Aspartate 13 U/L [place] aminotransferase [place] [Enzymatic Hospital activity/volume] in Serum or Plasma ID Date Data Source [id number] 01/10/2019 07:19:[address] [facility] Name Value Range Interpretation Description Data Sup porting Code Source(s) Document(s ) Alanine 16 U/L [place] aminotransferase [place] [Enzymatic Hospital activity/volume] in Serum or Plasma ID Date Data Source [id number] 01/10/2019 07:19:[address] [facility] Name Value Range Interpretation Description Data Sup porting Code Source(s) Document(s ) Alkaline 142 U/L [place] phosphatase Hospital [Enzymatic activity/volume ] in Serum or Plasma ID Date Data Source [id number] 01/10/2019 07:19:[address] [facility] Name Value Range Interpretation Description Data Sup porting Code Source(s) Document(s ) Bilirubin.t 0.3 mg/dL [facility] [Mass/volum e] in Serum or Plasma ID Date Data Source [id number] 01/10/2019 07:19:00 AM EDT [place] [facility] Name Value Range Interpretation Code Description Data Jackie rce(s) Supporting Document(s ) Albumin/Glob 0.9 [place] ulin [Mass Hospital Ratio] in Serum or Plasma ID Date Data Source [id number] 01/10/2019 07:19:00 AM EDT [facility] Name Value Range Interpretation Description Data Sup porting Code Source(s) Document(s ) Albumin 3.3 g/dL [place] [Mass/volume Hospital ] in Serum or Plasma ID Date Data Source [id number] 01/10/2019 07:19:00 AM EDT [facility] Name Value Range Interpretation Description Data Sup porting Code Source(s) Document(s ) Protein 6.9 g/dL [place] [Mass/volume Hospital ] in Serum or Plasma ID Date Data Source [id number] 01/10/2019 07:19:00 AM EDT [facility] Name Value Range Interpretation Code Description Data Supporting Source(s) Document(s ) NUCLEATED RBCS 0.0 % [place] (AUTO Hospital DIFF%)DIS ID Date Data Source [id number] 01/10/2019 07:19:00 AM EDT [facility] Name Value Range Interpretation Description Data Sup porting Code Source(s) Document(s ) Differential AUTOMATED [place] cell count Hospital method - Blood ID Date Data Source [id number] 01/10/2019 07:19:00 AM EDT [facility] Name Value Range Interpretation Description Data Sup porting Code Source(s) Document(s ) Immature 0.02 [place] granulocytes 10*3/uL Hospital [#/volume] in Blood by Automated count ID Date Data Source [id number] 01/10/2019 07:19:00 AM EDT [place] [facility] Name Value Range Interpretation Description Data Sup porting Code Source(s) Document(s ) Basophils 0.03 [place] [#/volume] in 10*3/uL Hospital Blood by Automated count ID Date Data Source [id number] 01/10/2019 07:19:00 AM EDT [facility] Name Value Range Interpretation Description Data Sup porting Code Source(s) Document(s ) Eosinophils 0.20 [place] [#/volume] in 10*3/uL Hospital Blood by Automated count ID Date Data Source [id number] 01/10/2019 07:19:00 AM EDT [facility] Name Value Range Interpretation Description Data Sup porting Code Source(s) Document(s ) Monocytes 1.19 [place] [#/volume] in 10*3/uL Hospital Blood by Automated count ID Date Data Source [id number] 01/10/2019 07:19:00 AM EDT [facility] Value Range Interpretation Description Data Sup porting Code Source(s) Document(s ) Lymphocytes 2.21 [place] [#/volume] in 10*3/uL [facility] Blood by Automated count ID Date Data Source [id number] 01/10/2019 07:19:00 AM EDT [facility] Value Range Interpretation Description Data Sup porting Code Source(s) Document(s ) Neutrophils 5.70 [place] [#/volume] in 10*3/uL Hospital Blood by Automated count ID Date Data Source [id number] 01/10/2019 07:19:00 AM EDT [facility] Name Value Range Interpretation Description Data Sup porting Code Source(s) Document(s ) Nucleated 0.0 % [place] erythrocytes/10 Hospital 0 leukocytes [Ratio] in Blood by Automated count ID Date Data Source [id number] 01/10/2019 07:19:00 AM EDT [facility] Value Range Interpretation Description Data Sup porting Code Source(s) Document(s ) Immature 0.2 % [place] granulocytes/10 Hospital 0 leukocytes in Blood by Automated count ID Date Data Source [id number] 01/10/2019 07:19:00 AM EDT [facility] Name Value Range Interpretation Description Data Sup porting Code Source(s) Document(s ) Basophils/100 0.3 % [place] leukocytes in Hospital Blood by Automated count ID Date Data Source [id number] 01/10/2019 07:19:00 AM EDT [facility] Value Range Interpretation Description Data Sup porting Code Source(s) Document(s ) Eosinophils/100 2.1 % [place] leukocytes in Hospital Blood by Automated count ID Date Data Source [id number] 01/10/2019 07:19:00 AM EDT [facility] Value Range Interpretation Description Data Sup porting Code Source(s) Document(s ) Monocytes/100 12.7 % [place] leukocytes in Hospital Blood by Automated count ID Date Data Source [id number] 01/10/2019 07:19:00 AM EDT [facility] Name Value Range Interpretation Description Data Sup porting Code Source(s) Document(s ) Lymphocytes/10 23.6 % [place] 0 leukocytes Hospital in Blood by Automated count ID Date Data Source [id number] 01/10/2019 07:19:00 AM EDT [facility] Name Value Range Interpretation Description Data Sup porting Code Source(s) Document(s ) Neutrophils/10 61.1 % [place] 0 leukocytes Hospital in Blood by Automated count ID Date Data Source [id number] 01/08/2019 12:12:00 PM EDT [facility] Name Value Range Interpretation Description Data Sup porting Code Source(s) Document(s ) GLUCOSE RN Notified [facility] Hospital ID Date Data Source [id number] 01/08/2019 11:19:00 AM EDT [facility] Name Value Range Interpretation Description Data Sup porting Code Source(s) Document(s ) Bacteria No growth [place] identified in Hospital Blood by Culture ID Date Data Source [id number] 01/08/2019 11:19:00 AM EDT [facility] Name Value Range Interpretation Description Data Sup porting Code Source(s) Document(s ) Bacteria No growth [place] identified in Hospital Blood by Culture ID Date Data Source [id number] 12/31/2018 [facility]57[facility] Value Range Interpretation Description Data Sup porting Code Source(s) Document(s ) GLUCOSE To Be [place] COMMENT2 Repeated Hospital ID Date Data Source [id number] 12/31/2018 07:57:00 PM EDT [facility] Name Value Range Interpretation Description Data Sup porting Code Source(s) Document(s ) GLUCOSE To Be [place] COMMENT2 Repeated Hospital ID Date Data Source [id number] 12/30/2018 [facility]59[facility] Interpretation Description Data Sup porting Code Source(s) Document(s ) [facility] Serum or Plasma ID Date Data Source [id number] 12/30/2018 05:59:[facility] Name Value Range Interpretation Description Data Sup porting Code Source(s) Document(s ) Gamma glutamyl 80 U/L [facility] [Enzymatic activity/volume ] in Serum or Plasma ID Date Data Source [id number] 12/29/2018 02:45:[facility] Value Range Interpretation Description Data Sup porting Code Source(s) Document(s ) Lactate 1.1 [place] [Moles/volum mmol/L Hospital e] in Serum or Plasma ID Date Data Source [id number] 12/29/2018 02:45:[facility] Name Value Range Interpretation Description Data Sup porting Code Source(s) Document(s ) Lactate 1.1 [place] [Moles/volum mmol/L Hospital e] in Serum or Plasma ID Date Data Source [id number] 12/28/2018 10:45:00 PM EDT [facility] Name Value Range Interpretation Description Data Sup porting Code Source(s) Document(s ) Natriuretic 63.2 [place] peptide B pg/mL Hospital [Mass/volume] in Serum or Plasma ID Date Data Source [id number] 12/28/2018 10:45:[address] [facility] THERAPEUTIC RANGE FOR STANDARD ORALANTIC OAGULANT THERAPY: 2.0-3.0THERAPEUTIC RANGE FOR HIGH DOSE ORALANTICOAGULANT THERAPY (MECHANICAL HEARTVALVE REPLACEMENT): 2.5-3.5 Name Value Range Interpretation Description Data Sup porting Code Source(s) Document(s ) INR in Platelet 1.2 [place] poor plasma by Hospital Coagulation assay ID Date Data Source [id number] 12/28/2018 10:45:[facility] Name Value Range Interpretation Description Data Sup porting Code Source(s) Document(s ) PT panel - 13.0 s [place] Platelet poor [facility] plasma by Coagulation assay ID Date Data Source [id number] 12/28/2018 10:45:[address] [facility] Name Value Range Interpretation Description Data Sup porting Code Source(s) Document(s ) Natriuretic 63.2 [place] peptide B pg/mL Hospital [Mass/volume] in Serum or Plasma ID Date Data Source [id number] 12/28/2018 10:45:[address] [facility] THERAPEUTIC RANGE FOR STANDARD ORALANTIC OAGULANT THERAPY: 2.0-3.0THERAPEUTIC RANGE FOR HIGH DOSE ORALANTICOAGULANT THERAPY (MECHANICAL HEARTVALVE REPLACEMENT): 2.5-3.5 Name Value Range Interpretation Description Data Sup porting Code Source(s) Document(s ) INR in Platelet 1.2 [place] poor plasma by Hospital Coagulation assay ID Date Data Source [id number] 12/28/2018 10:45:[address] [facility] Name Value Range Interpretation Description Data Sup porting Code Source(s) Document(s ) PT panel - 13.0 s [place] Platelet poor [facility] plasma by Coagulation assay ID Date Data Source [id number] 12/28/2018 12:01:[address] [facility] TEST PERFORMED BY SIEMENS [facility] CHEMILUMINESCENCE METHOD. Name Value Range Interpretation Description Data Sup porting Code Source(s) Document(s ) Troponin 0.01 [place] I.cardiac ng/mL Hospital [Mass/volume ] in Serum or Plasma ID Date Data Source [id number] 12/27/2018 08:35:[address] [facility] Cleaner Assistant:DAMARI INGRAM Name Value Range Interpretation Description Data Sup porting Code Source(s) Document(s ) Glucose 238 mg/dL [place] [Mass/volume] Hospital in Capillary blood by Glucometer ID Date Data Source [id number] 12/26/2018 08:30:[address] [facility] THERE ARE NO REFERENCE RANGES FOR RANDOM VANCOMYCIN LEVELS. Name Value Range Interpretation Description Data Sup porting Code Source(s) Document(s ) Vancomycin 11.9 [place] [Mass/volume] ug/mL Hospital in Serum or Plasma --trough ID Date Data Source [id number] 12/26/2018 08:30:00 AM EDT [facility] Name Value Range Interpretation Description Data Sup porting Code Source(s) Document(s ) Calcium 8.7 mg/dL [place] [Mass/volume Hospital ] in Serum or Plasma ID Date Data Source [id number] 12/26/2018 08:30:00 AM EDT [facility] Name Value Range Interpretation Code Description Data Jackie rce(s) Supporting Document(s ) Urea 16.0 [place] nitrogen/Cre Hospital atinine [Mass Ratio] in Serum or Plasma ID Date Data Source [id number] 12/26/2018 08:30:00 AM EDT [facility] Name Value Range Interpretation Description Data Sup porting Code Source(s) Document(s ) Creatinine 1.0 mg/dL [place] [Mass/volume] Hospital in Serum or Plasma ID Date Data Source [id number] 12/26/2018 08:30:00 AM EDT [facility] Name Value Range Interpretation Description Data Sup porting Code Source(s) Document(s ) Urea 16 mg/dL [place] nitrogen Hospital [Mass/volume ] in Serum or Plasma ID Date Data Source [id number] 12/26/2018 08:30:00 AM EDT [facility] Value Range Interpretation Code Description Data Jackie rce(s) Supporting Document(s ) Anion gap in 10 [place] Serum or [facility] Plasma ID Date Data Source [id number] 12/26/2018 08:30:00 AM EDT [facility] Name Value Range Interpretation Description Data Sup porting Code Source(s) Document(s ) Carbon 27 mmol/L [place] dioxide, Hospital total [Moles/volu me] in Serum or Plasma ID Date Data Source [id number] 12/26/2018 08:30:00 AM EDT [facility] Name Value Range Interpretation Description Data Sup porting Code Source(s) Document(s ) Chloride 102 [place] [Moles/volum mmol/L Hospital e] in Serum or Plasma ID Date Data Source [id number] 12/26/2018 08:30:00 AM EDT [facility] Name Value Range Interpretation Description Data Sup porting Code Source(s) Document(s ) Potassium 4.1 [place] [Moles/volume mmol/L Hospital ] in Serum or Plasma ID Date Data Source [id number] 12/26/2018 08:30:00 AM EDT [facility] Value Range Interpretation Description Data Sup porting Code Source(s) Document(s ) Sodium 135 mmol/L [place] [Moles/volu Hospital me] in Serum or Plasma ID Date Data Source [id number] 12/26/2018 08:30:00 AM EDT [facility] Value Range Interpretation Description Data Sup porting Code Source(s) Document(s ) Glucose 156 mg/dL [place] [Mass/volume Hospital ] in Serum or Plasma ID Date Data Source [id number] 12/26/2018 [facility] Value Range Interpretation Description Data Sup porting Code Source(s) Document(s ) Platelet mean 9.4 fL [place] volume Hospital [Entitic volume] in Blood by Automated count ID Date Data Source [id number] 12/26/2018 08:30:00 AM EDT [facility] Name Value Range Interpretation Description Data Sup porting Code Source(s) Document(s ) Platelets 461 [place] [#/volume] in 10*3/uL Hospital Blood by Automated count ID Date Data Source [id number] 12/26/2018 08:30:00 AM EDT [facility] Value Range Interpretation Description Data Sup porting Code Source(s) Document(s ) Erythrocyte 19.8 % [place] distribution Hospital width [Ratio] by Automated count ID Date Data Source [id number] 12/26/2018 08:30:[address] [facility] Name Value Range Interpretation Description Data Sup porting Code Source(s) Document(s ) Erythrocyte mean 31.2 [place] corpuscular g/dL Hospital hemoglobin concentration [Mass/volume] by Automated count ID Date Data Source [id number] 12/26/2018 [facility] Name Value Range Interpretation Description Data Sup porting Code Source(s) Document(s ) Erythrocyte 24.1 pg [facility] corpuscular hemoglobin [Entitic mass] by Automated count ID Date Data Source [id number] 12/26/2018 08:30:[address] [facility] Name Value Range Interpretation Description Data Sup porting Code Source(s) Document(s ) Erythrocyte 77.3 fL [facility] corpuscular volume [Entitic volume] by Automated count ID Date Data Source [id number] 12/26/2018 08:30:[address] [facility] Name Value Range Interpretation Description Data Sup porting Code Source(s) Document(s ) Hematocrit 23.1 % [place] [Volume Hospital Fraction] of Blood by Automated count ID Date Data Source [id number] 12/26/2018 08:30:[address] [facility] NOTIFICATION AND READ BACK OF CRITICAL R ESULTS TO KENDELL HAMMER RN 4E AT 0942 ON 12/26/18 BY Pat Rapp. Name Value Range Interpretation Description Data Sup porting Code Source(s) Document(s ) Hemoglobin 7.2 g/dL [place] [Mass/volume] Hospital in Blood ID Date Data Source [id number] 12/26/2018 08:30:[address] [facility] Name Value Range Interpretation Description Data Sup porting Code Source(s) Document(s ) Erythrocytes 2.99 [place] [#/volume] in 10*6/uL Hospital Blood by Automated count ID Date Data Source [id number] 12/26/2018 08:30:[address] [facility] Name Value Range Interpretation Description Data Sup porting Code Source(s) Document(s ) Leukocytes 8.9 [place] [#/volume] in 10*3/uL Hospital Blood by Automated count ID Date Data Source [id number] 12/26/2018 08:30:[address] [facility] THERE ARE NO REFERENCE RANGES FOR RANDOM VANCOMYCIN LEVELS. Name Value Range Interpretation Description Data Sup porting Code Source(s) Document(s ) Vancomycin 11.9 [place] [Mass/volume] ug/mL Hospital in Serum or Plasma --trough ID Date Data Source [id number] 12/22/2018 10:54:[address] [facility] NOTIFICATION AND READ BACK OF CRITICAL R ESULTS TO CARLA BOWERS RN-4E AT 2350 ON 12/22/18 BY Radha Page.NOTE: NEW RE FERENCE RANGE, EFFECTIVE 07/26/16.REPORTED CRITICAL VALUES SHOULD BE INTERPRETED WI THIN CLINICAL CONTEXT. Name Value Range Interpretation Description Data Sup porting Code Source(s) Document(s ) Vancomycin 23.7 [place] [Mass/volume] ug/mL Hospital in Serum or Plasma --trough ID Date Data Source [id number] 12/22/2018 06:11:[address] [facility] Name Value Range Interpretation Code Description Data Jackie rce(s) Supporting Document(s ) URINE 0-5 [facility] CASTS ID Date Data Source [id number] 12/22/2018 06:11:[address] [facility] Name Value Range Interpretation Description Data Sup porting Code Source(s) Document(s ) Erythrocytes 5-10 [place] [#/area] in /[HPF] Hospital Urine sediment by Automated count ID Date Data Source [id number] 12/22/2018 06:11:00 AM EDT [facility] Name Value Range Interpretation Description Data Sup porting Code Source(s) Document(s ) Leukocytes 0-3 [place] [#/area] in /[HPF] Hospital Urine sediment by Automated count ID Date Data Source [id number] 12/22/2018 06:11:00 AM EDT [facility] Name Value Range Interpretation Description Data Sup porting Code Source(s) Document(s ) Leukocyte NEGATIVE [place] esterase Hospital [Presence] in Urine by Test strip ID Date Data Source [id number] 12/22/2018 06:11:00 AM EDT [facility] Name Value Range Interpretation Description Data Sup porting Code Source(s) Document(s ) URINE NEGATIVE [place] NITRITES Hospital ID Date Data Source [id number] 12/22/2018 06:11:00 AM EDT [facility] Value Range Interpretation Description Data Sup porting Code Source(s) Document(s ) Erythrocytes TRACE [place] [#/volume] in Hospital Urine by Test strip ID Date Data Source [id number] 12/22/2018 06:11:00 AM EDT [facility] Name Value Range Interpretation Code Description Data Jackie rce(s) Supporting Document(s ) Bilirubin. NEGATIVE [place] total Hospital [Presence] in Urine by Test strip ID Date Data Source [id number] 12/22/2018 06:11:00 AM EDT [facility] Value Range Interpretation Description Data Sup porting Code Source(s) Document(s ) Urobilinogen 0.2 [place] [Units/volume] mg/dL Hospital in Urine by Test strip ID Date Data Source [id number] 12/22/2018 06:11:00 AM EDT [facility] Name Value Range Interpretation Description Data Sup porting Code Source(s) Document(s ) Ketones NEGATIVE [place] [Mass/volume Hospital ] in Urine by Test strip ID Date Data Source [id number] 12/22/2018 06:11:00 AM EDT [facility] Name Value Range Interpretation Code Description Data Jackie rce(s) Supporting Document(s ) Glucose TRACE [place] [Mass/volume Hospital ] in Urine by Test strip ID Date Data Source [id number] 12/22/2018 06:11:00 AM EDT [facility] Name Value Range Interpretation Code Description Data Jackie rce(s) Supporting Document(s ) Protein 2+ [place] [Presence] Hospital in Urine by Test strip ID Date Data Source [id number] 12/22/2018 06:11:00 AM EDT [facility] Name Value Range Interpretation Code Description Data Jackie rce(s) Supporting Document(s ) pH of Urine 6.5 [place] by Test Hospital strip ID Date Data Source [id number] 12/22/2018 06:11:00 AM EDT [facility] Name Value Range Interpretation Code Description Data Supporting Source(s) Document(s ) Specific 1.012 [place] gravity of Hospital Urine by Test strip ID Date Data Source [id number] 12/22/2018 06:11:00 AM EDT [facility] Name Value Range Interpretation Description Data Sup porting Code Source(s) Document(s ) Clarity in Urine CLEAR [place] by [facility] automated ID Date Data Source [id number] 12/22/2018 06:11:00 AM EDT [facility] Name Value Range Interpretation Code Description Data Jackie rce(s) Supporting Document(s ) Color of YELLOW [place] Urine Hospital ID Date Data Source [id number] 12/22/2018 06:11:00 AM EDT [facility] Name Value Range Interpretation Code Description Data Jackie rce(s) Supporting Document(s ) URINE 0-5 [place] HYALINE Hospital CASTS ID Date Data Source [id number] 12/22/2018 06:11:00 AM EDT [facility] Name Value Range Interpretation Description Data Sup porting Code Source(s) Document(s ) Erythrocytes 5-10 [place] [#/area] in /[HPF] Hospital Urine sediment by Automated count ID Date Data Source [id number] 12/22/2018 06:11:00 AM EDT [facility] Value Range Interpretation Description Data Sup porting Code Source(s) Document(s ) Leukocytes 0-3 [place] [#/area] in /[HPF] Hospital Urine sediment by Automated count ID Date Data Source [id number] 12/22/2018 06:11:00 AM EDT [facility] Value Range Interpretation Description Data Sup porting Code Source(s) Document(s ) Leukocyte NEGATIVE [place] esterase Hospital [Presence] in Urine by Test strip ID Date Data Source [id number] 12/22/2018 06:11:00 AM EDT [facility] Name Value Range Interpretation Description Data Sup porting Code Source(s) Document(s ) URINE NEGATIVE [place] NITRITES Hospital ID Date Data Source [id number] 12/22/2018 06:11:00 AM EDT [facility] Name Value Range Interpretation Description Data Sup porting Code Source(s) Document(s ) Erythrocytes TRACE [place] [#/volume] in Hospital Urine by Test strip ID Date Data Source [id number] 12/22/2018 06:11:00 AM EDT [facility] Name Value Range Interpretation Code Description Data Jackie rce(s) Supporting Document(s ) Bilirubin. NEGATIVE [place] total Hospital [Presence] in Urine by Test strip ID Date Data Source [id number] 12/22/2018 06:11:00 AM EDT [facility] Name Value Range Interpretation Description Data Sup porting Code Source(s) Document(s ) Urobilinogen 0.2 [place] [Units/volume] mg/dL Hospital in Urine by Test strip ID Date Data Source [id number] 12/22/2018 06:11:00 AM EDT [facility] Name Value Range Interpretation Description Data Sup porting Code Source(s) Document(s ) Ketones NEGATIVE [place] [Mass/volume Hospital ] in Urine by Test strip ID Date Data Source [id number] 12/22/2018 06:11:00 AM EDT [facility] Name Value Range Interpretation Code Description Data Jackie rce(s) Supporting Document(s ) Glucose TRACE [place] [Mass/volume Hospital ] in Urine by Test strip ID Date Data Source [id number] 12/22/2018 06:11:00 AM EDT [facility] Name Value Range Interpretation Code Description Data Jackie rce(s) Supporting Document(s ) Protein 2+ [place] [Presence] Hospital in Urine by Test strip ID Date Data Source [id number] 12/22/2018 06:11:00 AM EDT [facility] Name Value Range Interpretation Code Description Data Jackie rce(s) Supporting Document(s ) pH of Urine 6.5 [place] by Test Hospital strip ID Date Data Source [id number] 12/22/2018 06:11:00 AM EDT [facility] Name Value Range Interpretation Code Description Data Supporting Source(s) Document(s ) Specific 1.012 [place] gravity of Hospital Urine by Test strip ID Date Data Source [id number] 12/22/2018 06:11:00 AM EDT [facility] Name Value Range Interpretation Description Data Sup porting Code Source(s) Document(s ) Clarity in Urine CLEAR [place] by [facility] automated ID Date Data Source [id number] 12/22/2018 06:11:00 AM EDT [facility] Value Range Interpretation Code Description Data Jackie rce(s) Supporting Document(s ) Color of YELLOW [place] Urine Hospital ID Date Data Source [id number] 12/22/2018 02:44:00 AM EDT [facility] Value Range Interpretation Code Description Data Supporting Source(s) Document(s ) NUCLEATED RBCS 0.0 % [place] (AUTO Hospital DIFF%)DIS ID Date Data Source [id number] 12/22[facility] Interpretation Description Data Sup porting Code Source(s) Document(s ) Differential AUTOMATED [place] cell count [facility] method - Blood ID Date Data Source [id number] 12/22/2018 02:44:00 AM EDT [facility] Name Value Range Interpretation Description Data Sup porting Code Source(s) Document(s ) Immature 0.05 [place] granulocytes 10*3/uL Hospital [#/volume] in Blood by Automated count ID Date Data Source [id number] 12/22/2018 02:44:00 AM EDT [facility] Value Range Interpretation Description Data Sup porting Code Source(s) Document(s ) Basophils 0.04 [place] [#/volume] in 10*3/uL Hospital Blood by Automated count ID Date Data Source [id number] 12/22/2018 02:44:00 AM EDT [facility] Name Value Range Interpretation Description Data Sup porting Code Source(s) Document(s ) Eosinophils 0.20 [place] [#/volume] in 10*3/uL Hospital Blood by Automated count ID Date Data Source [id number] 12/22/2018 02:44:00 AM EDT [facility] Value Range Interpretation Description Data Sup porting Code Source(s) Document(s ) Monocytes 1.47 [place] [#/volume] in 10*3/uL Hospital Blood by Automated count ID Date Data Source [id number] 12/22/2018 02:44:00 AM EDT [facility] Value Range Interpretation Description Data Sup porting Code Source(s) Document(s ) Lymphocytes 1.94 [place] [#/volume] in 10*3/uL Hospital Blood by Automated count ID Date Data Source [id number] 12/22/2018 02:44:00 AM EDT [facility] Value Range Interpretation Description Data Sup porting Code Source(s) Document(s ) Neutrophils 8.25 [place] [#/volume] in 10*3/uL Hospital Blood by Automated count ID Date Data Source [id number] 12/22/2018 02:44:00 AM EDT [facility] Value Range Interpretation Description Data Sup porting Code Source(s) Document(s ) Nucleated 0.0 % [place] erythrocytes/10 Hospital 0 leukocytes [Ratio] in Blood by Automated count ID Date Data Source [id number] 12/22/2018 02:44:00 AM EDT [facility] Value Range Interpretation Description Data Sup porting Code Source(s) Document(s ) Immature 0.4 % [place] granulocytes/10 Hospital 0 leukocytes in Blood by Automated count ID Date Data Source [id number] 12/22/2018 02:44:00 AM EDT [facility] Name Value Range Interpretation Description Data Sup porting Code Source(s) Document(s ) Basophils/100 0.3 % [place] leukocytes in Hospital Blood by Automated count ID Date Data Source [id number] 12/22/2018 02:44:00 AM EDT [facility] Name Value Range Interpretation Description Data Sup porting Code Source(s) Document(s ) Eosinophils/100 1.7 % [place] leukocytes in Hospital Blood by Automated count ID Date Data Source [id number] 12/22/2018 02:44:00 AM EDT [facility] Value Range Interpretation Description Data Sup porting Code Source(s) Document(s ) Monocytes/100 12.3 % [place] leukocytes in Hospital Blood by Automated count ID Date Data Source [id number] 12/22/2018 02:44:00 AM EDT [facility] Name Value Range Interpretation Description Data Sup porting Code Source(s) Document(s ) Lymphocytes/10 16.2 % [place] 0 leukocytes Hospital in Blood by Automated count ID Date Data Source [id number] 12/22/2018 02:44:00 AM EDT [facility] Value Range Interpretation Description Data Sup porting Code Source(s) Document(s ) Neutrophils/10 69.1 % [place] 0 leukocytes Hospital in Blood by Automated count ID Date Data Source [id number] 12/22/2018 01:34:00 AM EDT [facility] Value Range Interpretation Description Data Sup porting Code Source(s) Document(s ) Lactate 0.7 [place] [Moles/volum mmol/L Hospital e] in Serum or Plasma ID Date Data Source [id number] 12/21/2018 08:27:00 PM EDT [facility] Name Value Range Interpretation Description Data Sup porting Code Source(s) Document(s ) Bacteria [facility]ICILLIN [facility] Culture ID Date Data Source [id number] 12/21/2018 08:27:00 PM EDT [facility] Name Value Range Interpretation Description Data Sup porting Code Source(s) Document(s ) Bacteria [facility]ETHICILLIN [facility] Culture ID Date Data Source [id number] 12/21/2018 11:22:00 AM EDT [facility] Name Value Range Interpretation Description Data Sup porting Code Source(s) Document(s ) GLUCOSE RN Notified [place] COMMENT Hospital ID Date Data Source [id number] 12/20/2018 07:57:00 PM EDT [facility] Name Value Range Interpretation Description Data Sup porting Code Source(s) Document(s ) Bacteria [facility]ILLIN [facility] Culture ID Date Data Source [id number] 12/20/2018 07:57:00 PM EDT [facility] Name Value Range Interpretation Description Data Sup porting Code Source(s) Document(s ) Hyaline casts 0-5/LPF [place] [#/area] in Hospital Urine sediment by Microscopy low power field ID Date Data Source [id number] 12/20[facility] Interpretation Description Data Sup porting Code Source(s) Document(s ) Epithelial 2+ [place] cells.squamous Hospital [#/area] in Urine sediment by Microscopy high power field ID Date Data Source [id number] 12/20/2018 [facility] Interpretation Description Data Sup porting Code Source(s) Document(s ) Bacteria OCCASIONAL [place] [#/area] in Hospital Urine sediment by Microscopy high power field ID Date Data Source [id number] 12/20/2018 [facility]57[facility] Value Range Interpretation Description Data Sup porting Code Source(s) Document(s ) Erythrocytes 5-10 [place] [#/area] in /[HPF] Hospital Urine sediment by Microscopy high power field ID Date Data Source [id number] 12/20/2018 [facility] Value Range Interpretation Description Data Sup porting Code Source(s) Document(s ) Leukocytes 10-20 [place] [#/area] in /[HPF] Hospital Urine sediment by Microscopy high power field ID Date Data Source [id number] 12/20/2018 07:57:[address] [facility] Name Value Range Interpretation Description Data Sup porting Code Source(s) Document(s ) Bacteria METHICILLIN White identified in [facility] Urine by [facility] Culture ID Date Data Source [id number] 12/20/2018 07:57:[address] [facility] Name Value Range Interpretation Description Data Sup porting Code Source(s) Document(s ) Hyaline casts 0-5/LPF [place] [#/area] in Hospital Urine sediment by Microscopy low power field ID Date Data Source [id number] 12/20/2018 07:57:[address] [facility] Name Value Range Interpretation Description Data Sup porting Code Source(s) Document(s ) Epithelial 2+ [place] cells.squamous Hospital [#/area] in Urine sediment by Microscopy high power field ID Date Data Source [id number] 12/20/2018 [facility]57[facility] Value Range Interpretation Description Data Sup porting Code Source(s) Document(s ) Bacteria OCCASIONAL [place] [#/area] in Hospital Urine sediment by Microscopy high power field ID Date Data Source [id number] 12/20/2018 [facility]57[facility] Name Value Range Interpretation Description Data Sup porting Code Source(s) Document(s ) Erythrocytes 5-10 [place] [#/area] in /[HPF] Hospital Urine sediment by Microscopy high power field ID Date Data Source [id number] 12/20/2018 07:57:[address] [facility] Name Value Range Interpretation Description Data Sup porting Code Source(s) Document(s ) Leukocytes 10-20 [place] [#/area] in /[HPF] Hospital Urine sediment by Microscopy high power field ID Date Data Source [id number] 12/20/2018 10:02:[address] [facility] TEST PERFORMED BY [employer]ENS[employer] CHEMILUMINESCENCE METHOD. Name Value Range Interpretation Description Data Sup porting Code Source(s) Document(s ) Troponin 0.01 [place] I.cardiac ng/mL Hospital [Mass/volume ] in Serum or Plasma ID Date Data Source [id number] 12/20/2018 10:02:[address] [facility] Name Value Range Interpretation Description Data Sup porting Code Source(s) Document(s ) Procalcitonin 0.4 [place] [Mass/volume] in ng/mL Hospital Serum or Plasma ID Date Data Source [id number] 12/20/2018 10:02:[address] [facility] Name Value Range Interpretation Code Description Data Jackie rce(s) Supporting Document(s ) Lipase 21 U/L [place] [Enzymatic Hospital activity/vo lume] in Serum or Plasma ID Date Data Source [id number] 12/20/2018 10:02:[address] [facility] Name Value Range Interpretation Description Data Sup porting Code Source(s) Document(s ) Magnesium 1.3 mg/dL [place] [Mass/volume] Hospital in Serum or Plasma ID Date Data Source [id number] 12/20/2018 10:02:00 AM EDT [facility] Name Value Range Interpretation Description Data Sup porting Code Source(s) Document(s ) Aspartate 24 U/L [facility] aminotransferase [place] [Enzymatic Hospital activity/volume] in Serum or Plasma ID Date Data Source [id number] 12/20/2018 10:02:00 AM EDT [facility] Name Value Range Interpretation Description Data Sup porting Code Source(s) Document(s ) Alanine 17 U/L [facility] aminotransferase [place] [Enzymatic Hospital activity/volume] in Serum or Plasma ID Date Data Source [id number] 12/20/2018 10:02:00 AM EDT [facility] Name Value Range Interpretation Description Data Sup porting Code Source(s) Document(s ) Alkaline 208 U/L [place] phosphatase Hospital [Enzymatic activity/volume ] in Serum or Plasma ID Date Data Source [id number] 12/20/2018 [facility] Name Value Range Interpretation Description Data Sup porting Code Source(s) Document(s ) Bilirubin.t 0.5 mg/dL [facility] [Mass/volum e] in Serum or Plasma ID Date Data Source [id number] 12/20/2018 [facility] Name Value Range Interpretation Code Description Data Jackie rce(s) Supporting Document(s ) Albumin/Glob 0.9 [place] ulin [Mass Hospital Ratio] in Serum or Plasma ID Date Data Source [id number] 12/20/2018 10:02:00 AM EDT [facility] Name Value Range Interpretation Description Data Sup porting Code Source(s) Document(s ) Albumin 3.8 g/dL [place] [Mass/volume Hospital ] in Serum or Plasma ID Date Data Source [id number] 12/20/2018 10:02:[address] [facility] Name Value Range Interpretation Description Data Sup porting Code Source(s) Document(s ) Protein 8.1 g/dL [place] [Mass/volume [facility] ] in Serum or Plasma ID Date Data Source [id number] 12/20/2018 10:02:[address] [facility] THERAPEUTIC RANGES:UNFRACTIONATED HEPARI N THERAPY: 60-90 SECONDSARGATROBAN THERAPY: 49-99 SECONDS Name Value Range Interpretation Description Data Sup porting Code Source(s) Document(s ) aPTT in 33.5 s [place] Platelet poor [facility] plasma by Coagulation assay ID Date Data Source [id number] 12/20/2018 10:02:[address] [facility] THERAPEUTIC RANGE FOR STANDARD ORALANTIC OAGULANT THERAPY: 2.0-3.0THERAPEUTIC RANGE FOR HIGH DOSE ORALANTICOAGULANT THERAPY (MECHANICAL HEARTVALVE REPLACEMENT): 2.5-3.5 Name Value Range Interpretation Description Data Sup porting Code Source(s) Document(s ) INR in Platelet 1.3 [place] poor plasma by Hospital Coagulation assay ID Date Data Source [id number] 12/20/2018 10:02:[address] [facility] Name Value Range Interpretation Description Data Sup porting Code Source(s) Document(s ) PT panel - 15.0 s [place] Platelet poor [facility] plasma by Coagulation assay ID Date Data Source [id number] 12/20/2018 10:02:[address] [facility] Name Value Range Interpretation Code Description Data Jackie rce(s) Supporting Document(s ) Cells 100 [facility] Total [#] in Blood ID Date Data Source [id number] 12/20/2018 10:02:00 AM EDT [facility] Name Value Range Interpretation Code Description Data Supporting Source(s) Document(s ) PLATELET NORMAL [facility] Hospital ID Date Data Source [id number] 12/20/2018 10:02:00 AM EDT [facility] Name Value Range Interpretation Code Description Data Jackie rce(s) Supporting Document(s ) LANI CELLS 1+ [facility] ID Date Data Source [id number] 12/20/2018 10:02:00 AM EDT [facility] Value Range Interpretation Code Description Data Jackie rce(s) Supporting Document(s ) TARGET CELLS OCC [facility] ID Date Data Source [id number] 12/20/2018 10:02:00 AM EDT [facility] Value Range Interpretation Code Description Data Jackie rce(s) Supporting Document(s ) HYPOCHROMIA OCC [facility] ID Date Data Source [id number] 12/20/2018 10:02:00 AM EDT [facility] Value Range Interpretation Code Description Data Jackie rce(s) Supporting Document(s ) MICROCYTOSIS 2+ [facility] ID Date Data Source [id number] 12/20/2018 10:02:00 AM EDT [facility] Value Range Interpretation Description Data Sup porting Code Source(s) Document(s ) POIKILOCYTOSIS 1+ [facility] ID Date Data Source [id number] 12/20/2018 10:02:00 AM EDT [facility] Value Range Interpretation Code Description Data Jackie rce(s) Supporting Document(s ) ANISOCYTOSIS 1+ [facility] ID Date Data Source [id number] 12/20/2018 10:02:00 AM EDT [facility] Name Value Range Interpretation Description Data Sup porting Code Source(s) Document(s ) Basophils 0.26 [place] [#/volume] in 10*3/uL Hospital Blood by Manual count ID Date Data Source [id number] 12/20/2018 10:02:00 AM EDT [facility] Value Range Interpretation Description Data Sup porting Code Source(s) Document(s ) Monocytes 1.31 [place] [#/volume] in 10*3/uL Hospital Blood by Manual count ID Date Data Source [id number] 12/20/2018 10:02:00 AM EDT [facility] Value Range Interpretation Description Data Sup porting Code Source(s) Document(s ) Lymphocytes 4.18 [place] [#/volume] in 10*3/uL Hospital Blood by Manual count ID Date Data Source [id number] 12/20/2018 10:02:00 AM EDT [facility] Value Range Interpretation Description Data Sup porting Code Source(s) Document(s ) Neutrophils 20.36 [place] [#/volume] in 10*3/uL Hospital Blood by Manual count ID Date Data Source [id number] 12/20/2018 10:02:00 AM EDT [facility] Value Range Interpretation Description Data Sup porting Code Source(s) Document(s ) Basophils/100 1 % [place] leukocytes in Hospital Blood by Manual count ID Date Data Source [id number] 12/20/2018 10:02:00 AM EDT [facility] Value Range Interpretation Description Data Sup porting Code Source(s) Document(s ) Monocytes/100 5 % [place] leukocytes in Hospital Blood by Manual count ID Date Data Source [id number] 12/20/2018 10:02:00 AM EDT [facility] Name Value Range Interpretation Description Data Sup porting Code Source(s) Document(s ) Variant 1 % [place] lymphocytes/100 Hospital leukocytes in Blood by Manual count ID Date Data Source [id number] 12/20/2018 10:02:00 AM EDT [facility] Value Range Interpretation Description Data Sup porting Code Source(s) Document(s ) Lymphocytes/100 15 % [place] leukocytes in Hospital Blood by Manual count ID Date Data Source [id number] 12/20/2018 10:02:00 AM EDT [facility] Name Value Range Interpretation Description Data Sup porting Code Source(s) Document(s ) Neutrophils/100 78 % [place] leukocytes in Hospital Blood by Manual count ID Date Data Source [id number] 12/20/2018 10:02:00 AM EDT [facility] Value Range Interpretation Description Data Sup porting Code Source(s) Document(s ) Procalcitonin 0.4 [place] [Mass/volume] in ng/mL Hospital Serum or Plasma ID Date Data Source [id number] 12/20/2018 10:02:00 AM [facility] Value Range Interpretation Code Description Data Jackie rce(s) Supporting Document(s ) Lipase 21 U/L [place] [Enzymatic Hospital activity/vo lume] in Serum or Plasma ID Date Data Source [id number] [facility]/20[facility] Interpretation Description Data Sup porting Code Source(s) Document(s ) Magnesium 1.3 mg/dL [place] [Mass/volume] Hospital in Serum or Plasma ID Date Data Source [id number] 12/20/2018 10:02:[address] [facility] THERAPEUTIC RANGES:UNFRACTIONATED HEPARI N THERAPY: 60-90 SECONDSARGATROBAN THERAPY: 49-99 SECONDS Name Value Range Interpretation Description Data Sup porting Code Source(s) Document(s ) aPTT in 33.5 s [place] Platelet poor [facility] plasma by Coagulation assay ID Date Data Source [id number] 12/20/2018 10:02:00 AM EDT [facility] Name Value Range Interpretation Code Description Data Jackie rce(s) Supporting Document(s ) Cells 100 [facility] Total [#] in Blood ID Date Data Source [id number] 12/20/2018 10:02:00 AM EDT [facility] Value Range Interpretation Code Description Data Supporting Source(s) Document(s ) PLATELET NORMAL [facility] ID Date Data Source [id number] 12/20/2018 10:02:00 AM EDT [facility] Name Value Range Interpretation Code Description Data Jackie rce(s) Supporting Document(s ) LANI CELLS 1+ [facility] ID Date Data Source [id number] 12/20/2018 10:02:00 AM EDT [facility] Name Value Range Interpretation Code Description Data Jackie rce(s) Supporting Document(s ) TARGET CELLS [facility] ID Date Data Source [id number] 12/20/2018 10:02:00 AM EDT [facility] Name Value Range Interpretation Code Description Data Jackie rce(s) Supporting Document(s ) HYPOCHROMIA [facility] ID Date Data Source [id number] 12/20/2018 10:02:00 AM EDT [facility] Name Value Range Interpretation Code Description Data Jackie rce(s) Supporting Document(s ) MICROCYTOSIS 2+ [facility] ID Date Data Source [id number] 12/20/2018 10:02:00 AM EDT [facility] Name Value Range Interpretation Description Data Sup porting Code Source(s) Document(s ) POIKILOCYTOSIS 1+ [facility] ID Date Data Source [id number] 12/20/2018 10:02:00 AM EDT [facility] Value Range Interpretation Code Description Data Jackie rce(s) Supporting Document(s ) ANISOCYTOSIS 1+ [facility] ID Date Data Source [id number] 12/20/2018 10:02:00 AM EDT [facility] Value Range Interpretation Description Data Sup porting Code Source(s) Document(s ) Basophils 0.26 [place] [#/volume] in 10*3/uL Hospital Blood by Manual count ID Date Data Source [id number] 12/20/2018 10:02:00 AM EDT [facility] Value Range Interpretation Description Data Sup porting Code Source(s) Document(s ) Monocytes 1.31 [place] [#/volume] in 10*3/uL Hospital Blood by Manual count ID Date Data Source [id number] 12/20/2018 10:02:00 AM EDT [facility] Value Range Interpretation Description Data Sup porting Code Source(s) Document(s ) Lymphocytes 4.18 [place] [#/volume] in 10*3/uL Hospital Blood by Manual count ID Date Data Source [id number] 12/20/2018 10:02:00 AM EDT [facility] Name Value Range Interpretation Description Data Sup porting Code Source(s) Document(s ) Neutrophils 20.36 [place] [#/volume] in 10*3/uL Hospital Blood by Manual count ID Date Data Source [id number] 12/20/2018 10:02:00 AM EDT [facility] Value Range Interpretation Description Data Sup porting Code Source(s) Document(s ) Basophils/100 1 % [place] leukocytes in Hospital Blood by Manual count ID Date Data Source [id number] 12/20/2018 10:02:00 AM EDT [facility] Name Value Range Interpretation Description Data Sup porting Code Source(s) Document(s ) Monocytes/100 5 % [place] leukocytes in Hospital Blood by Manual count ID Date Data Source [id number] 12/20/2018 10:02:00 AM EDT [facility] Name Value Range Interpretation Description Data Sup porting Code Source(s) Document(s ) Variant 1 % [place] lymphocytes/100 Hospital leukocytes in Blood by Manual count ID Date Data Source [id number] 12/20/2018 10:02:00 AM EDT [facility] Value Range Interpretation Description Data Sup porting Code Source(s) Document(s ) Lymphocytes/100 15 % [place] leukocytes in Hospital Blood by Manual count ID Date Data Source [id number] 12/20/2018 10:02:00 AM EDT [facility] Value Range Interpretation Description Data Sup porting Code Source(s) Document(s ) Neutrophils/100 78 % [place] leukocytes in Hospital Blood by Manual count ID Date Data Source [id number] 12/20/2018 09:49:00 AM EDT [facility] Value Range Interpretation Description Data Sup porting Code Source(s) Document(s ) Bacteria METHICILLIN White identified in RES STAPH [place] Blood by [facility] Culture ID Date Data Source [id number] 12/18/2018 02:58:00 PM EDT [facility] Value Range Interpretation Description Data Sup porting Code Source(s) Document(s ) Bacteria CORYNEBACTERIUM White identified SPECIES [place] in Wound by Hospital Culture Bacteria METHICILLIN RES White identified STAPH [facility] [place] in Wound by Hospital Culture ID Date Data Source [id number] 12/18/2018 06:27:[address] [facility] Cleaner Assistant:RUBINA FIDELIA Name Value Range Interpretation Description Data Sup porting Code Source(s) Document(s ) Glucose 177 mg/dL [place] [Mass/volume] Hospital in Capillary blood by Glucometer ID Date Data Source [id number] 12/17/2018 [facility] Interpretation Description Data Sup porting Code Source(s) Document(s ) GLUCOSE Pre Meal [address] ID Date Data Source [id number] 12/17/2018 11:03:00 AM [facility] Value Range Interpretation Description Data Sup porting Code Source(s) Document(s ) GLUCOSE Pre Meal [address] ID Date Data Source [id number] 12/17/2018 [facility]03[facility] Value Range Interpretation Description Data Sup porting Code Source(s) Document(s ) GLUCOSE RN Notified [facility] ID Date Data Source [id number] 12/17/2018 08[facility]45[facility] Value Range Interpretation Description Data Sup porting Code Source(s) Document(s ) Calcium 8.4 mg/dL [place] [Mass/volume Hospital ] in Serum or Plasma ID Date Data Source [id number] 12/17/2018 08[facility]45[facility] Value Range Interpretation Code Description Data Jackie rce(s) Supporting Document(s ) Urea 13.8 [place] nitrogen/Cre Hospital atinine [Mass Ratio] in Serum or Plasma ID Date Data Source [id number] 12/17/2018 08[facility]45[facility] Value Range Interpretation Description Data Sup porting Code Source(s) Document(s ) Creatinine 0.8 mg/dL [place] [Mass/volume] Hospital in Serum or Plasma ID Date Data Source [id number] 12/17/2018 08:45:00 AM EDT [facility] Name Value Range Interpretation Description Data Sup porting Code Source(s) Document(s ) Urea 11 mg/dL [place] nitrogen Hospital [Mass/volume ] in Serum or Plasma ID Date Data Source [id number] 12/17/2018 08:45:00 AM EDT [facility] Name Value Range Interpretation Code Description Data Jackie rce(s) Supporting Document(s ) Anion gap in 12 [place] Serum or [facility] Plasma ID Date Data Source [id number] 12/17/2018 08:45:00 AM EDT [facility] Name Value Range Interpretation Description Data Sup porting Code Source(s) Document(s ) Carbon 25 mmol/L [place] dioxide, Hospital total [Moles/volu me] in Serum or Plasma ID Date Data Source [id number] 12/17/2018 08:45:00 AM EDT [facility] Name Value Range Interpretation Description Data Sup porting Code Source(s) Document(s ) Chloride 99 mmol/L [place] [Moles/volum Hospital e] in Serum or Plasma ID Date Data Source [id number] 12/17/2018 08:45:00 AM EDT [facility] Name Value Range Interpretation Description Data Sup porting Code Source(s) Document(s ) Potassium 4.0 [place] [Moles/volume mmol/L Hospital ] in Serum or Plasma ID Date Data Source [id number] 12/17/2018 08:45:00 AM EDT [facility] Name Value Range Interpretation Description Data Sup porting Code Source(s) Document(s ) Sodium 132 mmol/L [place] [Moles/[facility]] in Serum or Plasma ID Date Data Source [id number] 12/17[facility] Description Data Sup porting Code Source(s) Document(s ) Glucose 198 mg/dL [place] [Mass/volume Hospital ] in Serum or Plasma ID Date Data Source [id number] 12/17/2018 [facility] Interpretation Description Data Sup porting Code Source(s) Document(s ) Differential AUTOMATED [place] cell count [facility] method - Blood ID Date Data Source [id number] 12/17/2018 [facility] Interpretation Description Data Sup porting Code Source(s) Document(s ) Immature 0.06 [place] granulocytes 10*3/uL Hospital [#/volume] in Blood by Automated count ID Date Data Source [id number] 12/17/2018 08:45:00 AM [facility] Value Range Interpretation Description Data Sup porting Code Source(s) Document(s ) Basophils 0.04 [place] [#/volume] in 10*3/uL Hospital Blood by Automated count ID Date Data Source [id number] 12/17/2018 [facility] Interpretation Description Data Sup porting Code Source(s) Document(s ) Eosinophils 0.25 [place] [#/volume] in 10*3/uL Hospital Blood by Automated count ID Date Data Source [id number] 12/17/2018 [facility] Interpretation Description Data Sup porting Code Source(s) Document(s ) Monocytes 1.42 [place] [#/volume] in 10*3/uL Hospital Blood by Automated count ID Date Data Source [id number] 12/17/2018 08:45:00 AM EDT [facility] Value Range Interpretation Description Data Sup porting Code Source(s) Document(s ) Lymphocytes 2.54 [place] [#/volume] in 10*3/uL Hospital Blood by Automated count ID Date Data Source [id number] 12/17/2018 08:45:00 AM EDT [facility] Value Range Interpretation Description Data Sup porting Code Source(s) Document(s ) Neutrophils 8.07 [place] [#/volume] in 10*3/uL [facility] Blood by Automated count ID Date Data Source [id number] 12/17/2018 08:45:00 AM EDT [facility] Value Range Interpretation Description Data Sup porting Code Source(s) Document(s ) Nucleated 0.0 % [place] erythrocytes/10 Hospital 0 leukocytes [Ratio] in Blood by Automated count ID Date Data Source [id number] 12/17/2018 08:45:00 AM EDT [facility] Value Range Interpretation Description Data Sup porting Code Source(s) Document(s ) Immature 0.5 % [place] granulocytes/10 Hospital 0 leukocytes in Blood by Automated count ID Date Data Source [id number] 12/17/2018 08:45:00 AM EDT [facility] Value Range Interpretation Description Data Sup porting Code Source(s) Document(s ) Basophils/100 0.3 % [place] leukocytes in Hospital Blood by Automated count ID Date Data Source [id number] 12/17/2018 08:45:00 AM EDT [facility] Value Range Interpretation Description Data Sup porting Code Source(s) Document(s ) Eosinophils/100 2.0 % [place] leukocytes in Hospital Blood by Automated count ID Date Data Source [id number] 12/17/2018 08:45:00 AM EDT [facility] Name Value Range Interpretation Description Data Sup porting Code Source(s) Document(s ) Monocytes/100 11.5 % [place] leukocytes in Hospital Blood by Automated count ID Date Data Source [id number] 12/17/2018 08:45:00 AM EDT [facility] Name Value Range Interpretation Description Data Sup porting Code Source(s) Document(s ) Lymphocytes/10 20.5 % [place] 0 leukocytes Hospital in Blood by Automated count ID Date Data Source [id number] 12/17/2018 08:45:00 AM EDT [facility] Name Value Range Interpretation Description Data Sup porting Code Source(s) Document(s ) Neutrophils/10 65.2 % [place] 0 leukocytes Hospital in Blood by Automated count ID Date Data Source [id number] 12/17/2018 08:45:00 AM EDT [facility] Name Value Range Interpretation Description Data Sup porting Code Source(s) Document(s ) Platelet mean 10.3 fL [place] volume Hospital [Entitic volume] in Blood by Automated count ID Date Data Source [id number] 12/17/2018 08:45:00 AM EDT [facility] Name Value Range Interpretation Description Data Sup porting Code Source(s) Document(s ) Platelets 386 [place] [#/volume] in 10*3/uL Hospital Blood by Automated count ID Date Data Source [id number] 12/17/2018 08:45:00 AM EDT [facility] Value Range Interpretation Description Data Sup porting Code Source(s) Document(s ) Erythrocyte 20.1 % [place] distribution Hospital width [Ratio] by Automated count ID Date Data Source [id number] 12/17/2018 08:45:00 AM [facility] Value Range Interpretation Description Data Sup porting Code Source(s) Document(s ) Erythrocyte mean 31.9 [place] corpuscular g/dL Hospital hemoglobin concentration [Mass/volume] by Automated count ID Date Data Source [id number] 12/17/2018 08:45:00 AM [facility] Value Range Interpretation Description Data Sup porting Code Source(s) Document(s ) Erythrocyte 24.6 pg [facility] corpuscular hemoglobin [Entitic mass] by Automated count ID Date Data Source [id number] 12/17/2018 08:45:00 AM [facility] Value Range Interpretation Description Data Sup porting Code Source(s) Document(s ) Erythrocyte 76.9 fL [facility] corpuscular volume [Entitic volume] by Automated count ID Date Data Source [id number] 12/17/2018 08:45:00 AM [facility] Value Range Interpretation Description Data Sup porting Code Source(s) Document(s ) Hematocrit 26.3 % [place] [Volume Hospital Fraction] of Blood by Automated count ID Date Data Source [id number] 12/17/2018 08:45:00 AM [facility] Value Range Interpretation Description Data Sup porting Code Source(s) Document(s ) Hemoglobin 8.4 g/dL [place] [Mass/volume] Hospital in Blood ID Date Data Source [id number] 12/17/2018 08:45:00 AM [facility] Value Range Interpretation Description Data Sup porting Code Source(s) Document(s ) Erythrocytes 3.42 [place] [#/volume] in 10*6/uL Hospital Blood by Automated count ID Date Data Source [id number] 12/17/2018 08:45:[address] [facility] Name Value Range Interpretation Description Data Sup porting Code Source(s) Document(s ) Leukocytes 12.4 [place] [#/volume] in 10*3/uL Hospital Blood by Automated count ID Date Data Source [id number] 12/16/2018 08:01:[address] [facility] Name Value Range Interpretation Description Data Sup porting Code Source(s) Document(s ) Phosphate 2.8 mg/dL [place] [Mass/volume] Hospital in Serum or Plasma ID Date Data Source [id number] 12/16/2018 08:01:00 AM [facility] Value Range Interpretation Description Data Sup porting Code Source(s) Document(s ) Bilirubin.d < 0.1 [place] irect mg/dL Hospital [Mass/volum e] in Serum or Plasma ID Date Data Source [id number] 12/16/2018 08:01:[address] [facility] UNITS ARE IN ml/min/1.73m2.IF PATIENT IS -M[place]OCCAN, MULTIPLY REPORTED RESULT BY 1.21. Name Value Range Interpretation Description Data Sup porting Code Source(s) Document(s ) Glomerular > 60 [place] filtration mL/min Hospital rate/1.73 sq M.predicted [Volume Rate/Area] in Serum or Plasma by Creatinine-bas ed formula (MDRD) ID Date Data Source [id number] 12/16/2018 08:01:[address] [facility] Name Value Range Interpretation Description Data Sup porting Code Source(s) Document(s ) Phosphate 2.8 mg/dL [place] [Mass/volume] Hospital in Serum or Plasma ID Date Data Source [id number] 12/16/2018 08:01:[address] [facility] Name Value Range Interpretation Description Data Sup porting Code Source(s) Document(s ) Magnesium 1.3 mg/dL [place] [Mass/volume] Hospital in Serum or Plasma ID Date Data Source [id number] 12/16/2018 08:01:00 AM EDT [facility] Name Value Range Interpretation Description Data Sup porting Code Source(s) Document(s ) Aspartate 15 U/L [place] aminotransferase [place] [Enzymatic Hospital activity/volume] in Serum or Plasma ID Date Data Source [id number] 12/16/2018 08:01:00 AM EDT [facility] Name Value Range Interpretation Description Data Sup porting Code Source(s) Document(s ) Alanine 15 U/L [place] aminotransferase [place] [Enzymatic Hospital activity/volume] in Serum or Plasma ID Date Data Source [id number] 12/16/2018 08:01:00 AM EDT [facility] Value Range Interpretation Description Data Sup porting Code Source(s) Document(s ) Alkaline 145 U/L [place] phosphatase Hospital [Enzymatic activity/volume ] in Serum or Plasma ID Date Data Source [id number] 12/16/2018 08:01:00 AM [facility] Value Range Interpretation Description Data Sup porting Code Source(s) Document(s ) Bilirubin.d < 0.1 [place] irect mg/dL Hospital [Mass/volum e] in Serum or Plasma ID Date Data Source [id number] 12/16/2018 08:01:00 AM EDT [facility] Name Value Range Interpretation Description Data Sup porting Code Source(s) Document(s ) Bilirubin.t 0.2 mg/dL [facility] Hospital [Mass/volum e] in Serum or Plasma ID Date Data Source [id number] 12/16/2018 [facility] Interpret[facility] Code Description Data Jackie rce(s) Supporting Document(s ) Albumin/Glob 1.0 [place] ulin [Mass Hospital Ratio] in Serum or Plasma ID Date Data Source [id number] 12/16/2018 08:01:[address] [facility] Name Value Range Interpretation Description Data Sup porting Code Source(s) Document(s ) Albumin 3.3 g/dL [place] [Mass/volume Hospital ] in Serum or Plasma ID Date Data Source [id number] 12/16/2018 08:01:00 AM EDT [facility] Name Value Range Interpretation Description Data Sup porting Code Source(s) Document(s ) Protein 6.6 g/dL [place] [Mass/volume Hospital ] in Serum or Plasma ID Date Data Source [id number] 12/16/2018 08:01:[address] [facility] UNITS ARE IN ml/min/1.73m2.IF PATIENT IS -[place]CC[place], MULTIPLY REPORTED RESULT BY 1.21. Name Value Range Interpretation Description Data Sup porting Code Source(s) Document(s ) Glomerular > 60 [place] filtration mL/min Hospital rate/1.73 sq M.predicted [Volume Rate/Area] in Serum or Plasma by Creatinine-bas ed formula (MDRD) ID Date Data Source [id number] 12/16/2018 08:01:[address] [facility] Name Value Range Interpretation Code Description Data Supporting Source(s) Document(s ) NUCLEATED RBCS 0.0 % [place] (AUTO Hospital DIFF%)DIS ID Date Data Source [id number] 12/15/2018 10:52:[address] [facility] TEST PERFORMED BY [employer] ULTRA SENSITIVE [facility] CHEMILUMINESCENCE METHOD. Name Value Range Interpretation Description Data Sup porting Code Source(s) Document(s ) Troponin 0.01 [place] I.cardiac ng/mL Hospital [Mass/volume ] in Serum or Plasma ID Date Data Source [id number] 12/12/2018 07:31:[address] [facility] Name Value Range Interpretation Description Data Sup porting Code Source(s) Document(s ) Bacteria No growth [place] identified in Hospital Blood by Culture ID Date Data Source [id number] 12/11/2018 06:54:[address] [facility] Name Value Range Interpretation Description Data Sup porting Code Source(s) Document(s ) Procalcitonin 0.2 [place] [Mass/volume] in ng/mL Hospital Serum or Plasma ID Date Data Source [id number] 12/07/2018 07:11:[address] [facility] Name Value Range Interpretation Description Data Sup porting Code Source(s) Document(s ) MEAN 80.0 fL [facility] VOLUME ID Date Data Source [id number] 12/07/2018 07:11:[address] [facility] Name Value Range Interpretation Description Data Sup porting Code Source(s) Document(s ) MEAN 80.0 fL [facility] VOLUME ID Date Data Source [id number] 12/07/2018 08:40:[address] [facility] ADA RECOMMENDATIONS: NON-DIABETES: 4.0-6.0% CONTROLLED DIABETES: 6.0-8.0% UNCONTROLLED DIABETE S: UP TO 20%RECOMMENDED ADA RESULT FOR THERAPY: HEMOGLOBIN A1C RESULT LESS FRANK N 7%.NOTE: METHOD CHANGE EFFECTIVE 11/06/14. Name Value Range Interpretation Description Data Sup porting Code Source(s) Document(s ) Hemoglobin 7.8 % [place] A1c/Hemoglobin. Hospital total in Blood ID Date Data Source [id number] 12/07/2018 08:40:[address] [facility] ADA RECOMMENDATIONS: NON-DIABETES: 4.0-6.0% CONTROLLED DIABETES: 6.0-8.0% UNCONTROLLED DIABETE S: UP TO 20%RECOMMENDED ADA RESULT FOR THERAPY: HEMOGLOBIN A1C RESULT LESS FRANK N 7%.NOTE: METHOD CHANGE EFFECTIVE 11/06/14. Name Value Range Interpretation Description Data Sup porting Code Source(s) Document(s ) Hemoglobin 7.8 % [place] A1c/Hemoglobin. Hospital total in Blood ID Date Data Source [id number] 12/06/2018 02:05:00 PM EDT [facility] CUT-OFF >= 200 NG/ML. Name Value Range Interpretation Description Data Sup porting Code Source(s) Document(s ) BENZODIAZEPINES NEGATIVE [place] (UR) [facility] ID Date Data Source [id number] 12/06/2018 02:05:00 PM EDT [facility] CUT-OFF >= 200 NG/ML. Name Value Range Interpretation Description Data Sup porting Code Source(s) Document(s ) BARBITURATES NEGATIVE [place] (UR) Hospital ID Date Data Source [id number] 12/06/2018 02:05:00 PM EDT [facility] CUT-OFF >= 1000 NG/ML. Name Value Range Interpretation Description Data Sup porting Code Source(s) Document(s ) AMPHETAMINES NEGATIVE [place] (UR) Hospital ID Date Data Source [id number] 12/06/2018 02:05:[address] [facility] CUT-OFF >= 25 NG/ML.THE FINDINGS OF [...] rce(s) Supporting Document(s ) PCP (UR) NEGATIVE [place] [facility] ID Date Data Source [id number] 12/06/2018 02:05:00 PM EDT [facility] CUT-OFF >= 50 NG/ML. Name Value Range Interpretation Code Description Data Jackie rce(s) Supporting Document(s ) THC (UR) NEGATIVE [place] [facility] ID Date Data Source [id number] 12/06/2018 02:05:00 PM EDT [facility] CUT-OFF >= 300 NG/ML. Name Value Range Interpretation Description Data Sup porting Code Source(s) Document(s ) OPIATES (UR) POSITIVE [place] [facility] ID Date Data Source [id number] 12/06/2018 02:05:00 PM EDT [facility] CUT-OFF >= 300 NG/ML. Name Value Range Interpretation Description Data Sup porting Code Source(s) Document(s ) COCAINE (UR) NEGATIVE [place] [facility] ID Date Data Source [id number] 12/06/2018 02:05:00 PM EDT [facility] CUT-OFF >= 200 NG/ML. Name Value Range Interpretation Description Data Sup porting Code Source(s) Document(s ) BENZODIAZEPINES NEGATIVE [place] (UR) [facility] ID Date Data Source [id number] 12/06/2018 02:05:00 PM EDT [facility] CUT-OFF >= 200 NG/ML. Name Value Range Interpretation Description Data Sup porting Code Source(s) Document(s ) BARBITURATES NEGATIVE [place] (UR) Hospital ID Date Data Source [id number] 12/06/2018 02:05:00 PM EDT [facility] CUT-OFF >= 1000 NG/ML. Name Value Range Interpretation Description Data Sup porting Code Source(s) Document(s ) AMPHETAMINES NEGATIVE [place] (UR) Hospital ID Date Data Source [id number] 12/06/2018 02:05:00 PM EDT [facility] CUT-OFF >= 25 NG/ML.THE FINDINGS OF [...] rce(s) Supporting Document(s ) PCP (UR) NEGATIVE [facility] ID Date Data Source [id number] 12/06/2018 02:05:00 PM EDT [facility] CUT-OFF >= 50 NG/ML. Name Value Range Interpretation Code Description Data Jackie rce(s) Supporting Document(s ) THC (UR) NEGATIVE [facility] ID Date Data Source [id number] 12/06/2018 02:05:00 PM EDT [facility] CUT-OFF >= 300 NG/ML. Name Value Range Interpretation Description Data Sup porting Code Source(s) Document(s ) OPIATES (UR) POSITIVE [facility] ID Date Data Source [id number] 12/06/2018 02:05:00 PM EDT [facility] CUT-OFF >= 300 NG/ML. Name Value Range Interpretation Description Data Sup porting Code Source(s) Document(s ) COCAINE (UR) NEGATIVE [facility] ID Date Data Source [id number] 12/06/2018 01:57:[address] [facility] Name Value Range Interpretation Description Data Sup porting Code Source(s) Document(s ) Erythrocytes 3-5 [place] [#/area] in /[HPF] Hospital Urine sediment by Microscopy high power field ID Date Data Source [id number] [facility] Interpretation Description Data Sup porting Code Source(s) Document(s ) Leukocytes 0-3 [place] [#/area] in /[HPF] Hospital Urine sediment by Microscopy high power field ID Date Data Source [id number] 12/06/2018 01:57:00 PM EDT [facility] Name Value Range Interpretation Description Data Sup porting Code Source(s) Document(s ) Leukocyte NEGATIVE [place] esterase Hospital [Presence] in Urine by Test strip ID Date Data Source [id number] 12/06/2018 01:57:00 PM EDT [facility] Name Value Range Interpretation Description Data Sup porting Code Source(s) Document(s ) URINE NEGATIVE [place] NITRITES Hospital ID Date Data Source [id number] 12/06/2018 01:57:00 PM EDT [facility] Name Value Range Interpretation Description Data Sup porting Code Source(s) Document(s ) Erythrocytes TRACE [place] [#/volume] in Hospital Urine by Test strip ID Date Data Source [id number] 12/06/2018 01:57:00 PM EDT [facility] Name Value Range Interpretation Code Description Data Jackie rce(s) Supporting Document(s ) Bilirubin. NEGATIVE [place] total Hospital [Presence] in Urine by Test strip ID Date Data Source [id number] 12/06/2018 01:57:00 PM EDT [facility] Name Value Range Interpretation Description Data Sup porting Code Source(s) Document(s ) Urobilinogen 0.2 [place] [Units/volume] mg/dL Hospital in Urine by Test strip ID Date Data Source [id number] 12/06/2018 01:57:00 PM EDT [facility] Value Range Interpretation Code Description Data Jackie rce(s) Supporting Document(s ) Ketones TRACE [place] [Mass/volume Hospital ] in Urine by Test strip ID Date Data Source [id number] 12/06/2018 01:57:00 PM EDT [facility] Name Value Range Interpretation Code Description Data Jackie rce(s) Supporting Document(s ) Glucose 2+ [place] [Mass/volume Hospital ] in Urine by Test strip ID Date Data Source [id number] 12/06/2018 01:57:00 PM EDT [facility] Name Value Range Interpretation Code Description Data Jackie rce(s) Supporting Document(s ) Protein 3+ [place] [Presence] Hospital in Urine by Test strip ID Date Data Source [id number] 12/06/2018 01:57:00 PM EDT [facility] Name Value Range Interpretation Code Description Data Jackie rce(s) Supporting Document(s ) pH of Urine 7.0 [place] by Test Hospital strip ID Date Data Source [id number] 12/06/2018 01:57:00 PM EDT [facility] Value Range Interpretation Code Description Data Supporting Source(s) Document(s ) Specific 1.022 [place] gravity of Hospital Urine by Test strip ID Date Data Source [id number] 12/06/2018 01:57:00 PM EDT [facility] Name Value Range Interpretation Description Data Sup porting Code Source(s) Document(s ) Clarity in Urine CLEAR [place] by Refractometry Hospital automated ID Date Data Source [id number] 12/06/2018 01:57:00 PM EDT [facility] Value Range Interpretation Code Description Data Jackie rce(s) Supporting Document(s ) Color of YELLOW [place] Urine Hospital ID Date Data Source [id number] 12/06/2018 09:24:00 AM EDT [facility] Name Value Range Interpretation Description Data Sup porting Code Source(s) Document(s ) Lactate 0.8 [place] [Moles/volum mmol/L Hospital e] in Serum or Plasma ID Date Data Source [id number] 12/06/2018 07:51:00 AM EDT [facility] Name Value Range Interpretation Code Description Data Jackie rce(s) Supporting Document(s ) Lipase 15 U/L [place] [Enzymatic Hospital activity/vo lume] in Serum or Plasma ID Date Data Source [id number] 12/06/2018 07:51:00 AM EDT [facility] Value Range Interpretation Code Description Data Jackie rce(s) Supporting Document(s ) Cells 100 [place] Counted Hospital Total [#] in Blood ID Date Data Source [id number] 12/06/2018 07:51:00 AM EDT [facility] Value Range Interpretation Code Description Data Supporting Source(s) Document(s ) PLATELET NORMAL [facility] ID Date Data Source [id number] 12/06/2018 07:51:00 AM EDT [facility] Value Range Interpretation Code Description Data Jackie rce(s) Supporting Document(s ) HYPOCHROMIA 2+ [facility] ID Date Data Source [id number] 12/06/2018 07:51:00 AM EDT [facility] Value Range Interpretation Code Description Data Jackie rce(s) Supporting Document(s ) MICROCYTOSIS 1+ [facility] ID Date Data Source [id number] 12/06/2018 07:51:00 AM EDT [facility] Value Range Interpretation Code Description Data Jackie rce(s) Supporting Document(s ) ANISOCYTOSIS 2+ [facility] ID Date Data Source [id number] 12/06/2018 07:51:00 AM EDT [facility] Value Range Interpretation Description Data Sup porting Code Source(s) Document(s ) Monocytes 0.28 [place] [#/volume] in 10*3/uL Hospital Blood by Manual count ID Date Data Source [id number] 12/06/2018 07:51:00 AM EDT [facility] Name Value Range Interpretation Description Data Sup porting Code Source(s) Document(s ) Lymphocytes 1.11 [place] [#/volume] in 10*3/uL Hospital Blood by Manual count ID Date Data Source [id number] 12/06/2018 07:51:00 AM EDT [facility] Value Range Interpretation Description Data Sup porting Code Source(s) Document(s ) Neutrophils 12.51 [place] [#/volume] in 10*3/uL Hospital Blood by Manual count ID Date Data Source [id number] 12/06/2018 07:51:00 AM EDT [facility] Value Range Interpretation Description Data Sup porting Code Source(s) Document(s ) Monocytes/100 2 % [place] leukocytes in Hospital Blood by Manual count ID Date Data Source [id number] 12/06/2018 07:51:00 AM EDT [facility] Value Range Interpretation Description Data Sup porting Code Source(s) Document(s ) Lymphocytes/100 8 % [place] leukocytes in Hospital Blood by Manual count ID Date Data Source [id number] 12/06/2018 07:51:00 AM EDT [facility] Value Range Interpretation Description Data Sup porting Code Source(s) Document(s ) Neutrophils/100 90 % [place] leukocytes in Hospital Blood by Manual count ID Date Data Source [id number] 12/06/2018 05:47:00 AM EDT [facility] Value Range Interpretation Description Data Sup porting Code Source(s) Document(s ) Methicillin PATIENT IS [place] resistant PRESUMED [place] [facility] POSITIVE FOR Hospital aureus (MRSA) MRSA DNA [Presence] COLONIZATION in Unspecified specimen by Probe and target amplification method Methicillin MRSA TARGET [facility] resistant DNA DETECTED [place] [facility] Hospital aureus (MRSA) DNA [Presence] in Unspecified specimen by Probe and target amplification method ID Date Data Source [id number] 12/06/2018 05:47:00 AM EDT [facility] Name Value Range Interpretation Description Data Sup porting Code Source(s) Document(s ) Methicillin MRSA TARGET [place] resistant DNA DETECTED [place] [facility] aureus (MRSA) DNA [Presence] in Unspecified specimen by Probe and target amplification method Methicillin PATIENT IS [place] resistant PRESUMED [place] [facility] POSITIVE FOR Hospital aureus (MRSA) MRSA DNA [Presence] COLONIZATION in Unspecified specimen by Probe and target amplification method ID Date Data Source [id number] 12/06/2018 05:04:00 AM EDT [facility] THERAPEUTIC RANGES:UNFRACTIONATED HEPARI N THERAPY: 60-90 SECONDSARGATROBAN THERAPY: 49-99 SECONDS Name Value Range Interpretation Description Data Sup porting Code Source(s) Document(s ) aPTT in 31.7 s [place] Platelet poor [facility] plasma by Coagulation assay ID Date Data Source [id number] 12/06[facility]2018 [facility] THER[facility]UTIC RANGE FOR STANDARD ORALANTIC OAGULANT THERAPY: 2.0-3.0THERAPEUTIC RANGE FOR HIGH DOSE ORALANTICOAGULANT THERAPY (MECHANICAL HEARTVALVE REPLACEMENT): 2.5-3.5 Name Value Range Interpretation Description Data Sup porting Code Source(s) Document(s ) INR in Platelet 1.3 [place] poor plasma by Hospital Coagulation assay ID Date Data Source [id number] 12/06/2018 05:04:00 AM EDT [facility] HEMOLYZED SPECIMEN- HEMOLYSIS CAUSES ELLEN RTENING OF PT AND APTT RESULTS Name Value Range Interpretation Description Data Sup porting Code Source(s) Document(s ) PT panel - 14.4 s [place] Platelet poor [facility] plasma by Coagulation assay ID Date Data Source [id number] 11/25/2018 04:52:00 PM EDT [facility] Name Value Range Interpretation Description Data Sup porting Code Source(s) Document(s ) Bacteria CORYNEBACTERIUM [place] identified SPECIES [place] in Wound by Hospital Culture Bacteria METHICILLIN RES [place] identified STAPH AUREUS [place] in Wound by Hospital Culture ID Date Data Source [id number] 11/25/2018 [facility]52[facility] Name Value Range Interpretation Description Data Sup porting Code Source(s) Document(s ) GLUCOSE RN Notified [facility] ID Date Data Source [id number] 11/25/2018 11:52:[address] [facility] Cleaner Assistant:MELINDA FRANZ Name Value Range Interpretation Description Data Sup porting Code Source(s) Document(s ) Glucose 282 mg/dL [place] [Mass/volume] [facility] in Capillary blood by Glucometer ID Date Data Source [id number] 11/24/2018 09:24:00 AM [facility] Value Range Interpretation Description Data Sup porting Code Source(s) Document(s ) Calcium 8.7 mg/dL [place] [Mass/volume Hospital ] in Serum or Plasma ID Date Data Source [id number] 11/24/2018 09:24:00 AM [facility] Value Range Interpretation Code Description Data Jackie rce(s) Supporting Document(s ) Urea 11.7 [place] nitrogen/Cre Hospital atinine [Mass Ratio] in Serum or Plasma ID Date Data Source [id number] 11/24/2018 09:24:00 AM [facility] Value Range Interpretation Description Data Sup porting Code Source(s) Document(s ) Creatinine 1.2 mg/dL [place] [Mass/volume] Hospital in Serum or Plasma ID Date Data Source [id number] 11/24/2018 09:24:[address] [facility] Name Value Range Interpretation Description Data Sup porting Code Source(s) Document(s ) Urea 14 mg/dL [place] nitrogen Hospital [Mass/volume ] in Serum or Plasma ID Date Data Source [id number] 11/24/2018 09:24:00 AM EDT [facility] Value Range Interpretation Code Description Data Jackie rce(s) Supporting Document(s ) Anion gap in 14 [place] Serum or [facility] Plasma ID Date Data Source [id number] 11/24/2018 09:24:00 AM EDT [facility] Name Value Range Interpretation Description Data Sup porting Code Source(s) Document(s ) Carbon 24 mmol/L [place] dioxide, Hospital total [Moles/volu me] in Serum or Plasma ID Date Data Source [id number] 11/24/2018 09:24:00 AM EDT [facility] Value Range Interpretation Description Data Sup porting Code Source(s) Document(s ) Chloride 105 [place] [Moles/volum mmol/L Hospital e] in Serum or Plasma ID Date Data Source [id number] 11/24/2018 09:24:00 AM EDT [facility] Value Range Interpretation Description Data Sup porting Code Source(s) Document(s ) Potassium 4.7 [place] [Moles/volume mmol/L Hospital ] in Serum or Plasma ID Date Data Source [id number] 11/24/2018 09:24:00 AM EDT [facility] Name Value Range Interpretation Description Data Sup porting Code Source(s) Document(s ) Sodium 138 mmol/L [place] [Moles/volu Hospital me] in Serum or Plasma ID Date Data Source [id number] 11/24/2018 09:24:00 AM EDT [facility] Name Value Range Interpretation Description Data Sup porting Code Source(s) Document(s ) Glucose 200 mg/dL [place] [Mass/volume Hospital ] in Serum or Plasma ID Date Data Source [id number] 11/24/2018 09:24:00 AM [facility] Value Range Interpretation Description Data Sup porting Code Source(s) Document(s ) Differential AUTOMATED [place] cell count [facility] method - Blood ID Date Data Source [id number] 11/24/2018 09:24:[address] [facility] Name Value Range Interpretation Description Data Sup porting Code Source(s) Document(s ) Immature 0.02 [place] granulocytes 10*3/uL Hospital [#/volume] in Blood by Automated count ID Date Data Source [id number] 11/24/2018 09:24:00 AM [facility] Value Range Interpretation Description Data Sup porting Code Source(s) Document(s ) Basophils 0.04 [place] [#/volume] in 10*3/uL Hospital Blood by Automated count ID Date Data Source [id number] 11/24/2018 09:24:00 AM [facility] Value Range Interpretation Description Data Sup porting Code Source(s) Document(s ) Eosinophils 0.49 [place] [#/volume] in 10*3/uL Hospital Blood by Automated count ID Date Data Source [id number] 11/24/2018 09:24:00 AM [facility] Value Range Interpretation Description Data Sup porting Code Source(s) Document(s ) Monocytes 0.71 [place] [#/volume] in 10*3/uL Hospital Blood by Automated count ID Date Data Source [id number] 11/24/2018 09:24:00 AM [facility] Value Range Interpretation Description Data Sup porting Code Source(s) Document(s ) Lymphocytes 3.02 [place] [#/volume] in 10*3/uL Hospital Blood by Automated count ID Date Data Source [id number] 11/24/2018 09:24:00 AM [facility] Value Range Interpretation Description Data Sup porting Code Source(s) Document(s ) Neutrophils 4.50 [place] [#/volume] in 10*3/uL Hospital Blood by Automated count ID Date Data Source [id number] 11/24/2018 09:24:00 AM EDT [facility] Value Range Interpretation Description Data Sup porting Code Source(s) Document(s ) Nucleated 0.0 % [place] erythrocytes/10 Hospital 0 leukocytes [Ratio] in Blood by Automated count ID Date Data Source [id number] 11/24/2018 09:24:00 AM EDT [facility] Value Range Interpretation Description Data Sup porting Code Source(s) Document(s ) Immature 0.2 % [place] granulocytes/10 Hospital 0 leukocytes in Blood by Automated count ID Date Data Source [id number] 11/24[facility] Description Data Sup porting Code Source(s) Document(s ) Basophils/100 0.5 % [place] leukocytes in [facility] Blood by Automated count ID Date Data Source [id number] 11/24/2018 [facility] Interpretation Description Data Sup porting Code Source(s) Document(s ) Eosinophils/100 5.6 % [place] leukocytes in Hospital Blood by Automated count ID Date Data Source [id number] 11/24/2018 [facility] Interpretation Description Data Sup porting Code Source(s) Document(s ) Monocytes/100 8.1 % [place] leukocytes in Hospital Blood by Automated count ID Date Data Source [id number] 11/24/2018 09:24:00 AM EDT [facility] Name Value Range Interpretation Description Data Sup porting Code Source(s) Document(s ) Lymphocytes/10 34.4 % [place] 0 leukocytes Hospital in Blood by Automated count ID Date Data Source [id number] 11/24/2018 [facility] Interpretation Description Data Sup porting Code Source(s) Document(s ) Neutrophils/10 51.2 % [place] 0 leukocytes Hospital in Blood by Automated count ID Date Data Source [id number] 11/24/2018 09:24:00 AM [facility] Value Range Interpretation Description Data Sup porting Code Source(s) Document(s ) Platelet mean 10.1 fL [place] volume [facility] [Entitic volume] in Blood by Automated count ID Date Data Source [id number] 11/24/2018 09:24:00 AM [facility] Value Range Interpretation Description Data Sup porting Code Source(s) Document(s ) Platelets 397 [place] [#/volume] in 10*3/uL Hospital Blood by Automated count ID Date Data Source [id number] 11/24/2018 09:24:00 AM [facility] Value Range Interpretation Description Data Sup porting Code Source(s) Document(s ) Erythrocyte 22.4 % [place] distribution Hospital width [Ratio] by Automated count ID Date Data Source [id number] 11/24/2018 09:24:00 AM [facility] Value Range Interpretation Description Data Sup porting Code Source(s) Document(s ) Erythrocyte mean 29.8 [place] corpuscular g/dL Hospital hemoglobin concentration [Mass/volume] by Automated count ID Date Data Source [id number] 11/24/2018 09:24:[address] [facility] Name Value Range Interpretation Description Data Sup porting Code Source(s) Document(s ) Erythrocyte 24.5 pg [facility] Hospital corpuscular hemoglobin [Entitic mass] by Automated count ID Date Data Source [id number] 11/24/2018 09:24:[address] [facility] Name Value Range Interpretation Description Data Sup porting Code Source(s) Document(s ) Erythrocyte 82.1 fL [facility] Hospital corpuscular volume [Entitic volume] by Automated count ID Date Data Source [id number] 11/24/2018 09:24:[address] [facility] Name Value Range Interpretation Description Data Sup porting Code Source(s) Document(s ) Hematocrit 26.2 % [place] [Volume Hospital Fraction] of Blood by Automated count ID Date Data Source [id number] 11/24/2018 09:24:[address] [facility] NOTIFICATION AND READ BACK OF CRITICAL R ESULTS TO Nimesh CRISOSTOMO RN AT 1018 ON 11/24/18 BY Callie Holt. Name Value Range Interpretation Description Data Sup porting Code Source(s) Document(s ) Hemoglobin 7.8 g/dL [place] [Mass/volume] Hospital in Blood ID Date Data Source [id number] 11/24/2018 09:24:[address] [facility] Name Value Range Interpretation Description Data Sup porting Code Source(s) Document(s ) Erythrocytes 3.19 [place] [#/volume] in 10*6/uL Hospital Blood by Automated count ID Date Data Source [id number] 11/24/2018 09:24:[address] [facility] Name Value Range Interpretation Description Data Sup porting Code Source(s) Document(s ) Leukocytes 8.8 [place] [#/volume] in 10*3/uL Hospital Blood by Automated count ID Date Data Source [id number] 11/23/2018 08:58:[address] [facility] NOTE: NEW REFERENCE RANGE, EFFECTIVE . Name Value Range Interpretation Description Data Sup porting Code Source(s) Document(s ) Vancomycin 13.7 [place] [Mass/volume] ug/mL Hospital in Serum or Plasma --trough ID Date Data Source [id number] 11/23/2018 08:58:[address] [facility] NOTE: NEW REFERENCE RANGE, EFFECTIVE . Name Value Range Interpretation Description Data Sup porting Code Source(s) Document(s ) Vancomycin 13.7 [place] [Mass/volume] ug/mL Hospital in Serum or Plasma --trough ID Date Data Source [id number] 11/23/2018 07:15:[address] [facility] Name Value Range Interpretation Description Data Sup porting Code Source(s) Document(s ) C reactive 21.0 mg/L [place] protein Hospital [Mass/volume ] in Serum or Plasma ID Date Data Source [id number] 11/23/2018 07:15:[address] [facility] Name Value Range Interpretation Description Data Sup porting Code Source(s) Document(s ) Erythrocyte 92 mm/h [facility] Hospital rate by Westergren method ID Date Data Source [id number] 11/23/2018 07:15:[address] [facility] Name Value Range Interpretation Description Data Sup porting Code Source(s) Document(s ) C reactive 21.0 mg/L [place] protein Hospital [Mass/volume ] in Serum or Plasma ID Date Data Source [id number] 11/23/2018 07:15:[address] [facility] Name Value Range Interpretation Description Data Sup porting Code Source(s) Document(s ) Aspartate 22 U/L White aminotransferase [place] [Enzymatic Hospital activity/volume] in Serum or Plasma ID Date Data Source [id number] 11/23[facility] Range Interpretation Description Data Sup porting Code Source(s) Document(s ) Alanine 23 U/L [place] aminotransferase [place] [Enzymatic Hospital activity/volume] in Serum or Plasma ID Date Data Source [id number] 11/23/2018 [facility] Name Value Range Interpretation Description Data Sup porting Code Source(s) Document(s ) Alkaline 120 U/L [place] phosphatase Hospital [Enzymatic activity/volume ] in Serum or Plasma ID Date Data Source [id number] 11/23/2018 07:15:00 AM [facility] Value Range Interpretation Description Data Sup porting Code Source(s) Document(s ) Bilirubin.t 0.3 mg/dL [facility] [Mass/volum e] in Serum or Plasma ID Date Data Source [id number] 11/23/2018 07:15:00 AM [facility] Value Range Interpretation Code Description Data Jackie rce(s) Supporting Document(s ) Albumin/Glob 1.0 [place] ulin [Mass Hospital Ratio] in Serum or Plasma ID Date Data Source [id number] 11/23/2018 07:15:[facility] Name Value Range Interpretation Description Data Sup porting Code Source(s) Document(s ) Albumin 3.3 g/dL [place] [Mass/volume Hospital ] in Serum or Plasma ID Date Data Source [id number] 11/23/2018 07:15:[address] [facility] Name Value Range Interpretation Description Data Sup porting Code Source(s) Document(s ) Protein 6.5 g/dL [place] [Mass/volume Hospital ] in Serum or Plasma ID Date Data Source [id number] 11/23/2018 07:15:00 AM EDT [facility] Name Value Range Interpretation Description Data Sup porting Code Source(s) Document(s ) Erythrocyte 92 mm/h [place] sedimentation Hospital rate by Westergren method ID Date Data Source [id number] 11/22/2018 06:30:00 AM EDT [facility] Name Value Range Interpretation Description Data Sup porting Code Source(s) Document(s ) GLUCOSE Pre Meal [facility] Hospital Procedure Social History Code Duration Value Status Description Data Source(s ) Smoking 06/23/2019 Never smoked completed Never smoked [place] [facility] - 12:46:08 AM EDT tobacco tobacco (finding) [facility] (finding) Center Smoking 06/23/2019 Never smoked completed Never smoked [place] [facility] - 12:46:08 AM EDT tobacco tobacco (finding) [facility] (finding) Center Smoking 06/23/2019 Never smoked completed Never smoked [place] [facility] - 12:46:08 AM EDT tobacco tobacco (finding) [facility] (finding) Center Smoking 06/04/2019 Never smoked completed Never smoked [place] [facility] - 08:41:21 PM EST tobacco tobacco (finding) [facility] (finding) Center Smoking 06/04/2019 Never smoked completed Never smoked [place] [facility] - 08:41:21 PM EST tobacco tobacco (finding) [facility] (finding) Center Smoking 06/04/2019 Never smoked completed Never smoked [place] [facility] - 08:41:21 PM EST tobacco tobacco (finding) [facility] (finding) Center Smoking 06/04/2019 Never smoked completed Never smoked [place] [facility] - 08:41:21 PM EST tobacco tobacco (finding) [facility] (finding) Center Smoking 06/04/2019 Never smoked completed Never smoked [place] [facility] - 08:41:21 PM EST tobacco tobacco (finding) [facility] (finding) Center Smoking 06/04/2019 Never smoked completed Never smoked [place] [facility] - 08:41:21 PM EST tobacco tobacco (finding) [facility] (finding) Center Smoking 06/04/2019 Never smoked [...] - 200 Normal (applies to 98.5 [degF] [facility] temperature non-numeric Health Syste m results) [...] Above high normal 20 [place] rate [facility] Heart rate 81 0 - 999 Normal (applies to 81 [place] non-numeric Health System results) Oxygen 99 % 0 - 999 Normal (applies to 99 % [place] saturation in non-numeric Health Sys tem Arterial blood results) by Pulse oximetry Body surface 2.3 m2 2.3 m2 [facility] area Derived Health Syste m from formula Body mass index 27.7 kg/m2 27.7 kg/m2 [facility] Syst em Body weight 103.41 kg 103.41 kg [facility] Body height 193.04 cm 193.04 cm [facility] Glucose 244 mg/dL 65-100 Above high normal 244 mg/dL [place] [Moles/volume] mg/dL Health - in Capillary [place] blood by Hospital Glucometer [place] Oxygen 98 % 94-100 % Normal (applies to 98 % [place] saturation in non-numeric Health - Blood results) [place] Postductal by [facility] Pulse oximetry Center Diastolic blood 68 mm[Hg] 60-90 Normal (applies to 68 mm[Hg] [place] pressure mmHg non-numeric Health - results) [facility] Systolic blood 120 mm[Hg] 90-130 Normal (applies to 120 mm[Hg] [place] pressure mmHg non-numeric Health - results) [facility] Vital Signs Dr. Cl Spicer Reported To [facility] Oxygen therapy [place] [Minimum Data Health - Set] [facility] Mean blood 133 mm[Hg] 133 mm[Hg] [place] pressure by [facility] Oxygen 99 % 94-100 % Normal (applies to 99 % [place] saturation in non-numeric Health - Blood results) [place] Postductal by [facility] Pulse oximetry Center Diastolic blood 106 mm[Hg] 60-90 106 mm[Hg] [place] pressure mmHg [facility] Systolic blood 186 mm[Hg] 90-130 186 mm[Hg] [place] pressure mmHg [facility] Respiratory 18 br/min 14-20 Normal (applies to 18 br/min [place] rate br/min non-numeric Health - results) [facility] Heart rate 98 bpm 60-100 Normal (applies to 98 bpm [place] bpm non-numeric Health - results) [facility] Oral 97.1 [degF] 96.4-99.1 Normal (applies to 97.1 [degF] [place] n[place] temperature DegF non-numeric Health - results) [facility] Glucose 178 mg/dL 65-100 Above high normal 178 mg/dL [place] [Moles/volume] mg/dL Health - in Capillary [place] blood by [facility] Glucometer [place] Glucose 178 mg/dL 65-100 Above high normal 178 mg/dL [place] [Moles/volume] mg/dL Health - in Capillary [place] blood by [facility] Glucometer [place] Respiratory 18 br/min 14-20 Normal (applies to 18 br/min [place] rate br/min non-numeric Health - results) [facility] Oral 98.2 [degF] 96.4-99.1 Normal (applies to 98.2 [degF] Nu[place] nce temperature DegF non-numeric Health - results) [facility] Oxygen 99 % 94-100 % Normal (applies to 99 % [place] saturation in non-numeric Health - Blood results) [place] Postductal by Hospital Pulse oximetry Center Heart rate 97 bpm 60-100 Normal (applies to 97 bpm [place] bpm non-numeric Health - results) [facility] Mean blood 123 mm[Hg] 123 mm[Hg] [place] pressure by [facility] Noninvasive [facility] Diastolic blood 94 mm[Hg] 60-90 94 mm[Hg] [place] pressure mmHg [facility] Systolic blood 180 mm[Hg] 90-130 Above high normal 180 mm[Hg] [place] pressure mmHg [facility] Mean blood 125 mm[Hg] 125 mm[Hg] [place] pressure by [facility] Oxygen therapy [place] [Minimum Data Health - Set] [facility] Blood pressure [place] measurement Health - [facility] Respiratory 18 br/min 14-20 Normal (applies to 18 br/min [place] rate br/min non-numeric Health - results) [facility] Heart rate 103 bpm 60-100 Above high normal 103 bpm [place] bpm [facility] Oral 98.7 [degF] 96.4-99.1 Normal (applies to 98.7 [degF] Nuva nce temperature DegF non-numeric Health - results) [facility] Oxygen Therapy [place] Activity [facility] Oxygen therapy [place] [Minimum Data Health - Set] [facility] Body mass index 27.38 kg/m2 27.38 kg/m2 [place] (BMI) [Ratio] [facility] Body weight 102 kg 102 kg [place] Measured [facility] Body height 193 cm 193 cm [place] [facility] Body mass index 27.38 kg/m2 27.38 kg/m2 [place] (BMI) [Ratio] [facility] Glucose 279 mg/dL 65-100 Above high normal 279 mg/dL [place] [Moles/volume] mg/dL Health - in Capillary [place] blood by Hospital Glucometer Center Oxygen therapy [place] [Minimum Data Health - Set] [facility] Mean blood 110 mm[Hg] 110 mm[Hg] [place] pressure by Health - Noninvasive [facility] Oxygen therapy [place] [Minimum Data Health - Set] [facility] Blood pressure [place] measurement Health - site [facility] Diastolic blood 83 mm[Hg] 60-90 Normal (applies to 83 mm[Hg] N [place] pressure mmHg non-numeric Health - results) [facility] Systolic blood 165 mm[Hg] 90-130 Above high normal 165 mm[Hg] [place] pressure mmHg Health - [facility] Respiratory 18 br/min 14-20 Normal (applies to 18 br/min [place] rate br/min non-numeric Health - results) [facility] Heart rate 64 bpm 60-100 Normal (applies to 64 bpm [place] bpm non-numeric Health - results) [facility] Oral 98.6 [degF] 96.4-99.1 Normal (applies to 98.6 [degF] Nu[place] nce temperature DegF non-numeric Health - results) [facility] Glucose 130 mg/dL 65-100 Above high normal 130 mg/dL [place] [Moles/volume] mg/dL Health - in Capillary [place] blood by [facility] Glucometer [place] Glucose 130 mg/dL 65-100 Above high normal 130 mg/dL [place] [Moles/volume] mg/dL Health - in Capillary [place] blood by [facility] Glucometer [place] Respiratory 18 br/min 14-20 Normal (applies to 18 br/min [place] rate br/min non-numeric Health - results) [facility] Oral 98.2 [degF] 96.4-99.1 Normal (applies to 98.2 [degF] Nu[place] nce temperature DegF non-numeric Health - results) [facility] Oxygen 99 % 94-100 % Normal (applies to 99 % [place] saturation in non-numeric Health - Blood results) [place] Postductal by [facility] Pulse oximetry Center Heart rate 60 bpm 60-100 Normal (applies to 60 bpm [place] bpm non-numeric Health - results) [facility] Mean blood 92 mm[Hg] 92 mm[Hg] [place] pressure by Health - Noninvasive [facility] Diastolic blood 75 mm[Hg] 60-90 Normal (applies to 75 mm[Hg] N [place] pressure mmHg non-numeric Health - results) [facility] Systolic blood 125 mm[Hg] 90-130 Normal (applies to 125 mm[Hg] Nu lyons pressure mmHg non-numeric Health - results) [facility] Blood pressure [place] measurement [facility] Oxygen therapy [place] [Minimum Data Health - Set] [facility] Diastolic blood 84 mm[Hg] 60-90 Normal (applies to 84 mm[Hg] N uvance pressure mmHg non-numeric Health - results) [facility] Systolic blood 154 mm[Hg] 90-130 Above high normal 154 mm[Hg] N[place] an[place] pressure mmHg [facility] Mean blood 92 mm[Hg] 92 mm[Hg] [place] pressure by Health - Noninvasive [facility] Oxygen 99 % 94-100 % Normal (applies to 99 % [place] saturation in non-numeric Health - Blood results) [place] Postductal by [facility] Pulse oximetry Center Respiratory 18 br/min 14-20 Normal (applies to 18 br/min [place] ce rate br/min non-numeric Health - results) [facility] Heart rate 74 bpm 60-100 Normal (applies to 74 bpm [place] bpm non-numeric Health - results) [facility] Oral 99.3 [degF] 96.4-99.1 Above high normal 99.3 [degF] [place] ce temperature DegF [facility] Oxygen 98 % 94-100 % Normal (applies to 98 % [place] saturation in non-numeric Health - Blood results) [place] Postductal by [facility] Pulse oximetry Center Vital Signs Dr. Haile. Dr. Haile. Dannielle Reported To Additional dose Additional dose Hea lth - of Hydrazaline of Hydrazaline [place] 25mg po ordered 25mg po ordered [facility] Blood pressure [place] measurement Health - [facility] Vital Signs SUSAN Thornton ce Reported To [facility] Body mass index 27.79 kg/m2 27.79 kg/m2 Dannielle (BMI) [Ratio] [facility] Daily Weight 103.5 kg 103.5 kg [place] [facility] Body height 193 cm 193 cm [place] [facility] Heart rate 105 bpm 60-100 Above high normal 105 bpm [place] Peripheral bpm Health - artery by [facility] Heart rate 100 bpm 60-100 Normal (applies to 100 bpm [place] Peripheral bpm non-numeric Health - artery by results) [facility] Heart rate 96 bpm 60-100 Normal (applies to 96 bpm [place] Peripheral bpm non-numeric Health - artery by results) [facility] Body weight 103.5 kg 103.5 kg [place] Measured [facility] Body height 193 cm 193 cm Nuirvinece [facility] Inhaled oxygen 2 L/min 2 L/min [place] flow rate [facility] Inhaled oxygen 2 L/min 2 L/min [place] flow rate [facility] Inhaled oxygen 2 L/min 2 L/min [place] flow rate [facility] Oxygen Therapy [place] Activity [facility] Body mass index 27.33 kg/m2 27.33 kg/m2 [place] (BMI) [Ratio] [facility] Body weight 101.82 kg 101.82 kg [place] Measured [facility] Body height 193 cm 193 cm Nuirvinece [facility] Body mass index 27.33 kg/m2 27.33 kg/m2 [place] (BMI) [Ratio] [facility] Diastolic blood 92 mm[Hg] 92 mm[Hg] [facility] pressure Hospital Systolic blood 202 mm[Hg] 202 mm[Hg] [facility] pressure [facility] Respiratory 18 /min 18 /min [facility] Heart rate 107 /min 107 /min [facility] Body 37.52381 Fide 37.16422 Fide [facility] temperature Hospital Body 99.1 [degF] 99.1 [degF] [facility] Body mass index 28.0 kg/m2 28.0 kg/m2 [facility] (BMI) [Ratio] Hospital Body weight 224.47 [lb_av] 224.47 [lb_av] [facility] Body 37 Fide 0 - 99.9 [...] 999 Above high normal 166 mm[Hg] [facility] System Oxygen 99 % 0 - 999 Normal (applies to 99 % [place] saturation in non-numeric Health s tem Arterial blood results) by Pulse oximetry Respiratory 17 0 - 999 Normal (applies to 17 [place] janny rate non-numeric Health System results) Heart rate 88 0 - 999 Normal (applies to 88 [place] non-numeric Health System results) Body surface 2.2 m2 2.2 m2 [facility] area Derived Health Syste m from formula Body mass index 27.4 kg/m2 27.4 kg/m2 [facility] [Ratio[facility] Health Syst em Body weight 99.79 kg 99.79 kg [facility] Body height 190.5 cm 190.5 cm [facility] Body surface 2.3 m2 2.3 m2 [facility] area Derived Health Syste m from formula Body mass index 28.4 kg/m2 28.4 kg/m2 [facility] ([facility] [Ratio] Health Syst Body weight 103.41 kg 103.41 kg [facility] Body height 190.5 cm 190.5 cm [facility] Body 97.8 [degF] 0 - 200 Normal (applies to 97.8 [degF] [facility] temperature non-numeric Health Syste m results) Body 36.5 Fide 0 - 99.9 Normal (applies to 36.5 Fide [place] temperature non-numeric Health Syste m results) Diastolic blood 83 mm[Hg] 0 - 999 Normal (applies to 83 mm[Hg] [facility] pressure non-numeric Health System results) Systolic blood 151 mm[Hg] 0 - 999 Above high normal 151 mm[Hg] [place] pressure Health System Oxygen 100 % 0 - 999 Normal (applies to 100 % [place] saturation in non-numeric Health s tem Arterial blood results) by Pulse oximetry Respiratory 20 0 - 999 Above high normal 20 [place] rate Health System Heart rate 95 0 - 999 Normal (applies to 95 [place] non-numeric Health System results) Body 36.5 Fide 0 - 99.9 Normal (applies to 36.5 Fide [place] temperature non-numeric Health Syste m results) Body 97.8 [degF] 0 - 200 Normal (applies to 97.8 [degF] [facility] temperature non-numeric Health Syste m results) Diastolic blood 83 mm[Hg] 0 - 999 Normal (applies to 83 mm[Hg] [facility] pressure non-numeric Health System results) Systolic blood 137 mm[Hg] 0 - 999 Normal (applies to 137 mm[Hg] [facility] pressure non-numeric Health System results) Oxygen 98 % 0 - 999 Normal (applies to 98 % [place] saturation in non-numeric Health s tem Arterial blood results) by Pulse oximetry Respiratory 17 0 - 999 Normal (applies to 17 [place] janny rate non-numeric Health System results) Heart rate 88 0 - 999 Normal (applies to 88 [place] non-numeric Health System results) Body surface 2.3 m2 2.3 m2 [facility] area Derived Health Syste m from formula Body mass index 28.4 kg/m2 28.4 kg/m2 [facility] ([facility] [Ratio[facility] Health Syst em Body weight 103.41 kg 103.41 kg [facility] Body height 190.5 cm 190.5 cm [facility] Body surface 2.3 m2 2.3 m2 [facility] area Derived Health Syste m from formula Body mass index 28.2 kg/m2 28.2 [facility]m2 [facility] Health Syst em Body weight 102.51 kg 102.51 kg [facility] Body height 190.5 cm 190.5 cm [facility] Body 98 [degF] 0 - 200 Normal (applies to 98 [degF] [place] temperature non-numeric Health Syste m results) Body 36.6 Fide 0 - 99.9 Normal (applies to 36.6 Fide [place] temperature non-numeric Health Syste [...] results) Diastolic blood 82 mm[Hg] 82 mm[Hg] [facility] ins pressure Hospital Systolic blood 145 mm[Hg] 145 mm[Hg[facility] Respiratory 19 /min 19 /min [facility] Heart rate 95 /min 95 /min [facility] Body 36.88692 Fide 36.55151 Fide [facility] temperature Hospital Body 98.1 [degF] 98.1 [degF] [facility] Body mass index 27.0 kg/m2 27.0 kg/m2 [facility] (BMI) [Ratio] Hospital Body weight 221.45 [lb_av] 221.45 [lb_av] [facility] Diastolic blood 76 mm[Hg] 76 mm[Hg] [facility] pressure Hospital Systolic blood 125 mm[Hg] 125 mm[Hg] [facility] ns pressure Hospital Respiratory 18 /min 18 /min [facility] Heart rate 83 /min 83 /min [facility] Body 36.96506 Fide 36.44448 Fide [facility] Body 97.6 [degF] 97.6 [degF] [facility] Body mass index 28.0 kg/m2 28.0 kg/m2 [facility] [place] [facility] (BMI) [Ratio] Hospital Body weight 220.46 [lb_av] 220.46 [lb_av] [facility] Diastolic blood 80 mm[Hg] 80 mm[Hg] [facility] pressure Hospital Systolic blood 149 mm[Hg] 149 mm[Hg] [facility] ns pressure Hospital Respiratory 17 /min 17 /min [facility] Heart rate 91 /min 91 /min [facility] Body 36.09269 Fide 36.38327 Fide [facility] temperature Hospital Body 98.2 [degF] 98.2 [degF] [facility] Body mass index 29.0 kg/m2 29.0 kg/m2 [facility] (BMI) [Ratio] Hospital Body weight 229.28 [lb_av] 229.28 [lb_av] [facility] Diastolic blood 80 mm[Hg] 80 mm[Hg] [facility] pressure Hospital Systolic blood 138 mm[Hg] 138 mm[Hg[facility] Respiratory 18 /min 18 /min [facility] Heart rate 100 /min 100 /min [facility] Body 36.04986 Fide 36.41367 Fide [facility] temperature Hospital Body 97.8 [degF] 97.8 [degF] [facility] [facility] Body mass index 29.0 kg/m2 29.0 kg/m2 [facility] (BMI) [Ratio] Hospital Body weight 226.48 [lb_av] 226.48 [lb_av] [facility] Diastolic blood 81 mm[Hg] 81 mm[Hg] [facility] Systolic blood 134 mm[Hg] 134 mm[Hg] [facility] Respiratory 18 /min 18 /min [facility] Heart rate 98 /min 98 /min [facility] Body 36.61465 [facility] 36.70234 [facility] Body 98.5 [degF] 98.5 [degF] [facility] Patient Treatment Plan of Care Planned Activity Planned Date Details Description Data Source (s) Simethicone 80 MG Chewable 06/25/2019 [facility] - Tablet 09:57:00 AM EDT [facility] Acetaminophen 325 MG Oral 06/25/2019 [facility] - Tablet 09:57:00 AM EDT [facility] Lisinopril 20 MG Oral 06/10/2019 [facility] - Tablet 09:09:00 AM EST [facility] Metoclopramide 10 MG Oral 06/10/2019 [facility] - Tablet 09:09:00 AM EST [facility] Hydralazine Hydrochloride 06/10/2019 [facility] - 25 MG Oral Tablet 09:09:00 AM EST [facility] carvedilol 6.25 MG Oral 06/10/2019 [facility] - Tablet 09:09:00 AM EST [facility] metformin 06/05/2019 [facility] - 01:15:00 AM EST [facility] Hydroxyzine Hydrochloride 03/12/2019 [facility] 50 MG Oral Tablet 05:14:09 AM EST System Lorazepam 1 MG Oral Tablet 03/08/2019 [facility] [Ativan] 08:37:45 PM EST System Lorazepam 1 MG Oral Tablet 02/24/2019 [facility] [Ativan] 02:02:37 AM EST System
[2020-01-20] MEDS ORDERED: PANTOPRAZOLE SODIUM 40 MG VIAL ONE ×2 (17:45→18:28)
--- NOTE | 2020-01-20 17:51 | PDOC ---
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 Pt explains this occurred to him about one week ago and has been going on and off for about two months. Pt explains that they do not know where his bleed is coming from. Pt ate some potatoes yesterday and after eating has been vomiting since. PT explains he has vominted about half a litre of coffee ground emesis since yesterday. Pt also has associated pain everywhere and is demanding reglan and dilaudid. Pt denies fevers, chills, chest pain, sob, dysuria, urinary frequ ency, hematochezia, or black stools. PMH: DM, Gastroparesis, htn, duodenal adenoma Med: metformin Allergies: sesame seeds PSH: AKA on right leg Social: denies smoking drugs or alchohol GI: Dr. Joe PCP: Dr. Giles Pt after receiving 1 mg dilaudid went into apnea and desaturated into 20s. Pt taylor d to be given Narcan and bagged. Past History - Medical History Allergies/Adverse Reactions: Allergies Allergy/AdvReac Type Severity Reaction Status Date / Time sesame seed Allergy Verified 01/20/20 17:00 javi seed Allergy Uncoded 01/20/20 17:00 Home Medications: Ambulatory Orders Pantoprazole Sodium [Protonix -] 40 mg PO DAILY #30 tablet.ec 11/12/19 Sennosides [Senna -] 2 tab PO HS PRN #60 tablet 11/12/19 Acetaminophen [Tylenol .Regular Strength -] 650 mg PO Q4H PRN #90 tablet 11/08 12/27 Amlodipine Besylate [Norvasc -] 5 mg PO DAILY #30 tablet 12/06/19 Gabapentin [Neurontin -] 300 mg PO TID #90 capsule 12/06/19 Labetalol HCl [Normodyne -] 200 mg PO BID #60 tablet 12/06/19 Ondansetron [Zofran *Odt*] 4 mg SL Q6H PRN #30 tab 12/06/19 Pantoprazole Sodium [Protonix -] 40 mg PO DAILY #30 tab 12/06/19 Polyethylene Glycol 3350 [Miralax 119 gm Btl -] 17 gm PO TID #1 bottle 12/06/19 Metoclopramide HCl [Reglan -] 5 mg PO TIDAC PRN #90 tablet 01/09/20 COPD: No Diabetes: Yes GI Disorders: Yes (GASTROPARESIS) - Surgical History Orthopedic Surgery: Yes (right bka) - Psycho-Social/Smoking History Smoking History: Never smoked Have you smoked in the past 12 months: No - Substance Abuse Hx (Audit-C & DAST Scrn) How often the patient has a drink containing alcohol: Never Score: In Men: 4 or > Positive; In Women: 3 or > Positive: 0 Screen Result (Pos requires Nsg. Audit-10AR): Negative In the last yr the pt used illegal drug/Rx for NonMed reason: No Score: Yes response is considered Positive: 0 Screen Result (Positive result requires Nsg. DAST-10): Negative Review of Systems - Review of Systems Comments:: 01/20/20 18:46 GENERAL/CONSTITUTIONAL: No fever or chills. No weakness. HEAD, EYES, EARS, NOSE AND THROAT: No change in vision. No ear pain or discharge . No sore throat. CARDIOVASCULAR: No chest pain or shortness of breath RESPIRATORY: No cough, wheezing, or hemoptysis. GASTROINTESTINAL: Nausea and coffee ground emesis GENITOURINARY: No dysuria, frequency, or change in urination. MUSCULOSKELETAL: Muscle pain all over. SKIN: No rash NEUROLOGIC: No headache, vertigo, loss of consciousness, or change in strength/sensation. ENDOCRINE: No increased thirst. No abnormal weight change ALLERGIC/IMMUNOLOGIC: No hives or skin allergy. *Physical Exam - Vital Signs Last Vital Signs Temp Pulse Resp BP Pulse Ox 98.6 F 121 H 22 H 178/112 H 99 01/20/20 17:01 01/20/20 17:01 01/20/20 17:01 01/20/20 17:01 01/20/20 17:01 - Physical Exam 01/20/20 18:47 GENERAL: Awake, alert, and fully oriented, in no acute distress HEAD: No signs of trauma, normocephalic, atraumatic EYES: PERRLA, EOMI, sclera anicteric, conjunctiva clear ENT: Auricles normal inspection, hearing grossly normal, nares patent, oropharynx clear without exudates. Moist mucosa NECK: Normal ROM, supple, no lymphadenopathy, JVD, or masses LUNGS: No distress, speaks full sentences, clear to auscultation bilaterally HEART: Regular rate and rhythm, normal S1 and S2, no murmurs, rubs or gallops, peripheral pulses normal and equal bilaterally. ABDOMEN: Soft, nontender, normoactive bowel sounds. No guarding, no rebound. No masses. With coffee ground emesis in bag. EXTREMITIES : pt has right sided aka with prosthesis. Left leg shows no edema, clubbing or cyanosis. NEUROLOGICAL: Cranial nerves II through XII grossly intact. Normal speech SKIN: Warm, Dry, normal turgor, no rashes or lesions noted Rectal: Chaperoned by KIKI Espinosa no hemorrhoids no gross blood or black stool on exam. 01/20/20 19:24 ED Treatment Course - LABORATORY CBC & Chemistry Diagram: 01/21/20 11:30 01/21/20 11:30 Medical Decision Making - Medical Decision Making 01/20/20 18:50 54 yo male with pmh of gastroparesis, DM, Duodenal adenoma presents to ED for coffee ground emesis for the past 24 hours. Will get cbc, cmp, type and screen and coags Will get ekg and cardiac enzymes to rule out demand ischemia PT will need admission will get cxr, ekg, and covid Pt was given 1 mg dilaudid for pain, 80mg pantaprazole for upper GI bleed, and 4 of zofran for nausea. Pt after receiving dilaudid had apnic event and was given 4 of narcan and was back to being alert. Pt signed out to PM team 01/20/20 21:10 Discharge - Discharge Information Problems reviewed: Yes Clinical Impression/Diagnosis: Coffee ground emesis Condition: Fair - Follow up/Referral - Patient Discharge Instructions - Post Discharge Activity
[2020-01-20] MEDS ORDERED: HYDROmorphone HCL CARPU-JECT 2 MG/1 ML DISP.SYRIN IVPUSH ONE (17:58)
--- NOTE | 2020-01-20 18:06 | PDOC ---
Documentation entered by Laxmi Bailey SCRIBE, acting as scribe for Myra Farmer MD. Myra Farmer MD: This documentation has been prepared by the Kvng brandt Xhesika, SCRIBE, under my direction and personally reviewed by me in its entirety. I confirm that the documentation accurately reflects all work, treatment, procedures, and medical decision making performed by me. Attending Attestation - Resident Resident Name: Bj Gallegos - ED Attending Attestation I have performed the following: I have examined & evaluated the patient, The case was reviewed & discussed with the resident, I agree w/resident's findings & plan, Exceptions are as noted - HPI HPI: 01/20/20 17:39 The patient is a 54 year old male with a significant past medical history of NIDDM, HTN, gastroparesis, and osteomyelitis s/p right BKA (01/2019) who presents to the emergency department for evaluation of coffee ground emesis. The patient reports multiple episodes of bile and dark blood in emesis and associated abdominal pain. He endorses similar episodes in the past. The patient denies chest/back pain, cough, and shortness of breath. Denies fever, chills, or any symptoms. Denies any other symptoms. Allergies: NKA Surgical Hx: right bka (01/2019) PCP: Dr Giles - Physicial Exam PE: 01/20/20 17:44 Tall 54 yo male p/w nausea and vomiting coffee ground emesis head ncat neck supple lungs cta b/l cvs tachycardia abdomen extremities no deformities, no erythema skin warm and dry neuro axox3 01/20/20 18:01 - Medical Decision Making 01/20/20 18:02 IMP GI bleed plan: protonix,type and screen,chem,coag,admit 01/20/20 18:38 pt had a brief apnic episode s/p dilaudid and responded to narcan 0.4 mg with return of spontaneous breathing Discharge - Discharge Information Problems reviewed: Yes Clinical Impression/Diagnosis: Coffee ground emesis Condition: Fair - Follow up/Referral - Patient Discharge Instructions - Post Discharge Activity
[2020-01-20] MEDS ORDERED: LACTATED RINGERS SOLUTION 1000 ML INFUS.BAG IV ONE (18:08)
[2020-01-20] MEDS ORDERED: HYDROmorphone HCl 2 MG/ML VIAL ONE (18:14)
[2020-01-20] MEDS ORDERED: NALOXONE HCL 0.4 MG/ML VIAL ONE (18:33)
[2020-01-20 18:39] LABS: INR 0.92 (0.83-1.09); PROTHROMBIN TIME (PATIENT) 10.9 SEC (9.7-13.0)
[2020-01-20 18:42] LABS: ACTIVATED PTT 19.2 SECONDS (25.2-36.5)
[2020-01-20 19:08] LABS: BASO % 0.4 % (0-2.0); EOS % 3.1 % (0-4.5); HEMATOCRIT 35.9 % (35.4-49); HEMOGLOBIN 11.7 GM/dL (11.7-16.9); LYMPH % 21.5 % (8-40); MCHC 32.6 g/dl (32.0-35.9); MEAN CELL VOLUME 79.8 fl (80-96); MONO % 5.8 % (3.8-10.2); NEUT % 69.2 % (42.8-82.8); PLATELET COUNT 321 K/MM3 (134-434); RBC 4.51 M/mm3 (4.00-5.60); WHITE BLOOD COUNT 12.3 K/mm3 (4.0-10.0)
[2020-01-20 19:29] LABS: ALBUMIN 3.9 g/dl (3.4-5.0); ALK PHOS 119 U/L (45-117); ANION GAP 10 MMOL/L (8-16); BILIRUBIN,TOTAL 0.4 mg/dL (0.2-1); BLOOD UREA NITROGEN 13.6 mg/dL (7-18); CALCIUM 9.2 mg/dL (8.5-10.1); CHLORIDE 106 mmol/L (98-107); CO2 24 mmol/L (21-32); CREATININE 1.7 mg/dL (0.55-1.3); GLUCOSE,RANDOM 118 mg/dL (74-106); LIPASE 48 U/L (73-393); POTASSIUM 4.2 mmol/L (3.5-5.1); SGOT/AST 16 U/L (15-37); SGPT/ALT 18 U/L (13-61); SODIUM 139 mmol/L (136-145); TOT PROT 8.1 g/dl (6.4-8.2)
--- NOTE | 2020-01-20 19:59 | PDOC ---
*Physical Exam - Vital Signs Last Vital Signs Temp Pulse Resp BP Pulse Ox 98.6 F 97 H 16 117/103 H 100 01/20/20 17:01 01/20/20 18:44 01/20/20 18:44 01/20/20 18:44 01/20/20 18:44 ED Treatment Course - LABORATORY CBC & Chemistry Diagram: 01/20/20 18:00 01/20/20 18:00 - ADDITIONAL ORDERS Additional order review: Laboratory Results 01/20/20 01/20/20 01/20/20 18:42 18:00 18:00 PT with INR 10.90 INR 0.92 PTT (Actin FS) 19.2 L Sodium 139 Potassium 4.2 Chloride 106 Carbon Dioxide 24 Anion Gap 10 BUN 13.6 Creatinine 1.7 H Est GFR (CKD-EPI)AfAm 51.84 Est GFR (CKD-EPI)NonAf 44.72 POC Glucometer 179 Random Glucose 118 H Calcium 9.2 Total Bilirubin 0.4 AST 16 ALT 18 Alkaline Phosphatase 119 H Creatine Kinase 201 Creatine Kinase Index 0.8 CK-MB (CK-2) 1.8 Troponin I < 0.02 Total Protein 8.1 Albumin 3.9 Lipase 48 L 01/20/20 01/20/20 18:42 18:00 RBC 4.51 MCV 79.8 L MCHC 32.6 RDW 16.0 H MPV 9.0 Neutrophils % 69.2 Lymphocytes % 21.5 D Monocytes % 5.8 Eosinophils % 3.1 Basophils % 0.4 POC Glucometer 179 - Medications Given in the ED: ED Medications Discontinued Medications Generic Name Dose Route Start Last Admin Trade Name Jaylon PRN Reason Stop Dose Admin Hydromorphone HCl 1 mg 01/20/20 17:58 01/20/20 18:21 Dilaudid Injection - IVPUSH 01/20/20 17:59 1 mg ONCE ONE Administration Lactated Ringer's 1,000 ml 01/20/20 18:08 01/20/20 18:45 Lactated Ringers Solution IV 01/20/20 18:09 1,000 ml ONCE ONE Administration Ondansetron HCl 4 mg 01/20/20 17:10 01/20/20 18:00 Zofran Injection IVPUSH 01/20/20 17:11 4 mg ONCE ONE Administration Pantoprazole Sodium 40 mg 01/20/20 17:10 01/20/20 18:00 Protonix Iv IVPUSH 01/20/20 17:11 40 mg ONCE ONE Administration Medical Decision Making - Medical Decision Making 01/20/20 19:58 54 yo male with pmh of DM, gastroparesis, htn, known Duodenal adenoma, 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 Pt explai ns this occurred to him about one week ago and has been going on and off for about two months. Pt explains that they do not know where his bleed is coming from. Pt ate some potatoes yesterday and after eating has been vomiting since. PT explains he has vominted about half a litre of coffee ground emesis since yesterday. Pt also has associated pain everywhere and is demanding reglan and dilaudid. Pt denies fevers, chills, chest pain, sob, dysuria, urinary frequency, hematochezia, or black stools. PMH: DM, Gastroparesis, htn, duodenal adenoma Med: metformin Allergies: sesame seeds PSH: AKA on right leg Social: denies smoking drugs or alchohol GI: Dr. Joe PCP: Dr. Giles Pt after receiving 1 mg dilaudid went into apnea and desaturated into 20s. Pt had to be given Narcan and bagged. -Labs reviewed. No concerning findings, H/H 11.7/35.9, Cr 1.7, WBC 12.3, FOBT neg -EKG reviewed: sinus tachycardia, 105bpm, normal axis, normal intervals, no ST elevations or depressions, TWI in III, no significant changes from prior -Protonix 80 given -GI Dr Cruz called -Admit 01/20/20 20:[address] Cruz - requested abdominal XR. -Abdominal XR -CXR Admit tele 01/20/20 21:03 Signed out to admitting team Discharge - Discharge Information Problems reviewed: Yes Clinical Impression/Diagnosis: Coffee ground emesis Condition: Fair - Admission Yes - Follow up/Referral - Patient Discharge Instructions - Post Discharge Activity
--- OUTSIDE RECORDS SUMMARY | 2020-01-20 21:13 | XMS ---
:1965 Author Organization [facility] Care Team Providers Name Role Phone [...] Unavailable Unavailable Kye R Unavailable Unavailable Adin, BRICK PICKER Unavailable Unavailable Arbolino Unavailable Unavailable Angel M [...] Unavailable Unavailable MD DONELL Unavailable Unavailable Kanoff, Kasi Unavailable Unavailable Leda, DO Unavailable Unavailable Cappa, DPM Unavailable Unavailable MD Mago Unavailable Unavailable BICHARA Unavailable Unavailable MD Adriana Unavailable Unavailable Shelli Unavailable Unavailable MD Dinorah Unavailable Unavailable Close, M Unavailable Unavailable Church, C Unavailable Unavailable Conrad, N Unavailable Unavailable MD SWATHI Unavailable Unavailable Rachael Brunson MD Unavailable Unavailable Ag Unavailable Unavailable MD Xiao Unavailable Unavailable Escobar Lares Unavailable Unavailable Edwin, BRICK PICKER Unavailable Unavailable Joe, M Unavailable Unavailable Re-disclosure [...] is protected by Article 27-F of the [facility] Public Health law. If you continue you may haveaccess to information: Regarding HIV / AIDS; Provided by facilities licensed or operated by the [facility] Office of Mental Health; or Provided by the [facility] Office for People With Developmental Disabilities. If such information is present, then the following [facility] mandated warning applies: This information [...] law may result in a fine or detention sentence or both. A general authorization for the release of medical or other information is NOT sufficient authorization for further disclosure. Allergies and Adverse Reactions Type Description Substance Reaction Status Data Source(s ) 1 sesame oil sesame oil Itching (mild) NEXTGEN (Counts Include [facility]) 1 SIMON SEED SIMON SEED Nausea / Vomiting NEXTGEN (moderate) 3 (Counts Include 234 [facility]) Food allergy SESAME OIL SESAME OIL [facility] [facility] Drug allergy Dilaudid Dilaudid exacerbate [place] gastroparesis - [facility] Drug allergy No Known No Known [place] [facility] Allergies Allergies - [facility] Allergy to Allergy to No known drug NETSMART substance substance allergy ([facility]) simon seed simon seed VOMITING [facility] Food allergy sesame seed sesame seed ANAPHYLAXIS [facility] Encounters Encounter Providers Location Date Indications Data Source(s ) Outpatient Attender: Shanon 01/08/2020 NEXTGEN ([facility] HollanderReferrer: 03:20:00 PM [place] [facility]) Outpatient Attender: Shanon 01/01/2020 NEXTGEN ([facility] HollanderReferrer: 11:26:00 AM Medic al - [place] [facility] ED[facility]) Outpatient Attender: Shanon 12/31/2019 NEXTGEN ([facility] Zaki 11:08:00 AM Medical [place] [facility]) Outpatient Attender: Shanon 12/22/2019 NEXTGEN ([facility] HollanderReferrer: 04:48:00 PM Medic al [place] [facility]) Outpatient Attender: Shanon 12/11/2019 NEXTGEN ([facility] HollanderReferrer: 03:16:00 PM Medic al - [place] [facility]) Outpatient Attender: Perico 12/03/2019 NEXTGEN ([facility] BillyReferrer: 08:00:00 AM Medica l - [place] [facility]) Outpatient Attender: Merrick 11/28/2019 NEXTGEN ([facility] Damariseferrer: 01:45:00 PM Medi beata - [place] [facility]) Outpatient Attender: Shanon 11/03/2019 NEXTGEN ([facility] JohannaanderReferrer: 03:15:00 PM Medic al - [place] [facility]) Outpatient Attender: Parantap 11/03/2019 NEXTGE N ([facility] Joe 02:28:00 PM [facility] Outpatient Attender: Shanon 11/03/2019 NEXTGEN ([facility] Zaki 12:54:00 PM Medical [facility] Outpatient Attender: Shanon 10/31/2019 NEXTGEN ([facility] HollanderReferrer: 02:54:00 PM Medic al - [place] [facility] [employer] [facility] ED[facility]) Outpatient Attender: Shanon 10/30/2019 NEXTGEN ([facility] HollanderReferrer: 04:46:00 PM Medic [place] [facility]) Outpatient Attender: Shanon 10/30/2019 NEXTGEN ([facility] Zaki 11:30:00 AM Medical [facility] Medical [facility]) Outpatient Attender: Shanon 10/29/2019 NEXTGEN ([facility] JohannaanderAttender: 03:30:00 PM Medic [facility] Medical [facility]) KanoffReferrer: Shanon Haines Outpatient Attender: Shanon 10/28/2019 NEXTGEN ([facility] HollanderReferrer: 10:47:00 AM Medic k[facility] - [facility] Cyber [facility] Engineer EDT Medical [facility]) Outpatient Attender: Luz 10/28/2019 NEXTGEN ( [facility] YasunileniReferrer: 12:00:00 AM [facility]) Outpatient Attender: Juaquin 10/27/2019 NEXTGEN ([facility] Gamarnik 12:55:00 PM [facility] Medical [facility]) Outpatient Attender: Lefty 10/26/2019 NEXTGEN ([facility] Balkir 02:38:00 PM Medical [facility] Medical [facility]) Outpatient Attender: Lefty 10/26/2019 NEXTGEN ([facility] Robeferrer: 12:00:00 AM [facility] Medical [facility]) Outpatient Attender: Juaquin 10/25/2019 NEXTGEN ([facility] Gamarnik 03:42:00 PM Medical [facility] Medical [facility]) Outpatient Attender: Shanon 10/24/2019 NEXTGEN ([facility] Zaki 02:01:00 PM Medical [facility] Medical [facility]) Emergency Attender: Lucy ICU-EMERG 10/23/2019 VOMITING/SOB MHS - Eduardo Elainetender: 03:29:00 AM Hospi grazyna Franz EDT - MDAttender: Doctor 10/23/2019 Other 04:18:00 PM EDT VOMITING/SOB Patient discharged. Outpatient Attender: Sahnon 10/17/2019 12:56:00 PM NEXTGEN ([facility] Zaki EDT Medical - [facility] Medical [facility]) Outpatient Attender: Shanon 10/16/2019 03:04:00 PM NEXTGEN ([facility] ZakiReferrer: EDT Medica l - [facility]) Outpatient Attender: Merrick 10/16/2019 11:30:00 AM NEXTGEN ([facility] Damariseferrer: EDT Medic al - [facility]) Outpatient Attender: Shanon 10/15/2019 04:17:00 PM NEXTGEN ([facility] EDT Medical - [facility] Medical [facility]) Outpatient Attender: Shanon 10/10/2019 04:04:00 PM NEXTGEN ([facility] EDT Medical - [facility] Medical [facility]) Outpatient Attender: Shanon 10/08/2019 09:18:00 AM NEXTGEN ([facility] Zaki EDT Medical - [facility] Medical [facility]) Outpatient Attender: Juaquin 10/01/2019 01:39:00 PM NEXTGEN ([facility] ArminReferrer: EDT Medical - [facility]) Outpatient Attender: Aracely Joe 10/01/2019 01:17:00 PM NEXTGEN ([facility] EDT Medical - [facility] Medical [facility]) Outpatient Attender: Sally 09/30/2019 03:35:00 PM NEXTGEN ([facility] Johnolino EDT Medical [facility] Medical [facility]) Outpatient Attender: Shanon 09/30/2019 08:55:00 AM NEXTGEN ([facility] Zaki EDT Medical [facility] Medical [facility]) Outpatient Attender: Sara 09/27/2019 12:00:00 AM NEXTGEN ([facility] AleahReferrer: Sara HARDINGT Hi dical [facility] Medical [facility]) Outpatient Attender: Namrata Mcguire NP 09/26/2019 03:58:00 PM NEXTGEN ([facility] EDT Medical - [facility] ) Outpatient Attender: Erasmo 09/25/2019 12:00:00 AM NEXTGEN ([facility] HalbertReferrer: Erasmo EDT M edical - [facility]) Outpatient Attender: Aracely 09/25/2019 12:00:00 AM NEXTGEN ([facility] GuptaReferrer: Parantap EDT M edical - [facility]) Outpatient Attender: Namrata Mcguire NP 09/24/2019 02:02:00 PM NEXTGEN ([facility] EDT Medical - [place] [facility]) Outpatient Attender: Juaquin Funez 09/24/2019 02:55:00 AM NEXTGEN ([facility] EDT Medical - [place] [facility] ) Outpatient Attender: Salvador 09/24/2019 12:00:00 AM NEXTGEN ([facility] PatelReferrer: Salvador EDT Medic al - [facility]) Outpatient Attender: Shanon 09/19/2019 11:30:00 AM NEXTGEN ([facility] HollanderReferrer: EDT [facility]) Outpatient Attender: Maurice 09/16/2019 01:00:00 PM NEXTGEN ([facility] AliseReferrer: EDT Medica l - [facility]) Outpatient Attender: Juaquin 09/11/2019 10:15:00 AM NEXTGEN ([facility] ArminReferrer: Juaquin ANGULO Hi dical - [facility]) Outpatient Attender: Shanon 09/10/2019 11:01:00 AM NEXTGEN ([facility] Zaki EDT Medical - [place] [facility] ) Outpatient Attender: Juaquin 09/09/2019 02:37:00 PM NEXTGEN ([facility] GamarnikReferrer: EDT Medical - [facility] Medical [facility]) Outpatient Attender: Sally 09/08/2019 06:23:00 PM NEXTGEN ([facility] Arbolino EDT Medical - [place] [facility] ) Outpatient Attender: Erasmo Back 09/08/2019 01:07:00 PM NEXTGEN ([facility] EDT Medical - [place] [facility]) Outpatient Attender: Juaquin 09/08/2019 01:05:00 PM NEXTGEN ([facility] GamarnikReferrer: EDT Medical - [facility] Medical [facility]) Outpatient Attender: Erasmo 09/08/2019 12:00:00 AM NEXTGEN ([facility] WongReferrer: Erasmo ANGULO M edical - [facility]) Outpatient Attender: Juaquin Funez 09/07/2019 11:53:00 AM NEXTGEN ([facility] EDT Medical - [place] [facility]) Outpatient Attender: Maurice 09/06/2019 12:44:00 PM NEXTGEN ([facility] Carrero EDT Medical - [place] [facility]) Outpatient Attender: Juaquin 09/06/2019 12:00:00 AM NEXTGEN ([facility] GamsidReferrer: Juaquin ANGULO Hi dical - [facility]) Outpatient Attender: Maurice 09/04/2019 05:15:00 PM NEXTGEN ([facility] Carrero EDT Medical - [place] [facility]) Outpatient Attender: Valente 09/04/2019 12:00:00 AM NEXTGEN ([facility] VerasReferrer: EDT Medical - [facility]) Outpatient Attender: Juaquin 09/03/2019 12:53:00 PM NEXTGEN ([facility] GamsidReferrer: EDT Medical - [facility]) Outpatient Attender: Cole Fishman 09/03/2019 10:32:00 AM NEXTGEN ([facility] EDT Medical - [place] [facility]) Outpatient Attender: Cole 09/03/2019 12:00:00 AM NEXTGEN ([facility] KyeReferrer: Cole ANGULO M edical - [facility]) Outpatient Attender: Maurice 09/03/2019 12:00:00 AM NEXTGEN ([facility] AliseReferrer: Cole EDT Medical - [facility]) Outpatient Attender: Marianela 09/02/2019 07:30:00 PM [...] Luz EDT Me dical - [place] [facility]) Outpatient Attender: Juaquin Funez 08/26/2019 01:46:00 AM NEXTGEN ([facility] EDT Medical - [place] [facility] [facility]) Outpatient Attender: Juaquin Funez 08/15/2019 06:21:00 PM NEXTGEN ([facility] EDT Medical - [place] [facility]) Outpatient Attender: Shanon 08/14/2019 01:46:00 PM NEXTGEN ([facility] HollanderReferrer: EDT Medica l - [facility]) Outpatient Attender: Juaquin 08/14/2019 10:15:00 AM NEXTGEN ([facility] ArminReferrer: Juaquin HARDINGT Hi dical - [place] [facility]) Outpatient Attender: Juaquin 08/14/2019 12:00:00 AM NEXTGEN ([facility] ArminReferrer: Juaquin HARDINGT Hi dical - [place] [facility] [...] ([facility] GuptaReferrer: Parantap EDT M edical - [facility]) Outpatient Attender: Juaquin Funez 08/07/2019 12:23:00 PM NEXTGEN ([facility] EDT Medical - [place] [facility]) Outpatient Attender: Shanon 08/07/2019 12:14:00 PM NEXTGEN ([facility] HollanderReferrer: EDT Medica l - [facility] Medical Grou p PC) Outpatient Attender: Juaquin Funez 08/06/2019 01:20:00 PM NEXTGEN ([facility] EDT Medical - [place] [facility]) Outpatient Attender: Aracely Joe 08/05/2019 09:55:00 AM NEXTGEN ([facility] EDT Medical - [place] [facility]) Outpatient Attender: Aracely 08/05/2019 12:00:00 AM NEXTGEN ([facility] GuptaReferrer: Parantap EDT M edical - [facility]) Outpatient Attender: Carlin Land 08/01/2019 03:52:00 PM NEXTGEN ([facility] EDT Medical - [place] [facility]) Outpatient Attender: Juaquin Funez 07/30/2019 04:41:00 PM NEXTGEN ([facility] EDT Medical - [place] [facility]) Outpatient Attender: Carlin Land 07/28/2019 07:20:00 PM NEXTGEN ([facility] EDT Medical - [place] [facility]) Outpatient Attender: Carlin 07/28/2019 12:00:00 AM NEXTGEN ([facility] LeeReferrer: Reyes EDT Medical [facility] Outpatient Attender: Juaquin Funez 07/27/2019 11:51:00 AM NEXTGEN ([facility] EDT Medical - [place] [facility]) Outpatient Attender: Juaquin Funez 07/05/2019 11:59:00 AM NEXTGEN ([facility] EDT Medical - [place] [facility]) Outpatient Attender: Juaquin Funez 07/03/2019 03:27:00 AM NEXTGEN ([facility] EDT Medical - [facility] Medical [facility]) Inpatient Attender: Physician 06/22/2019 11:52:11 PM [facility] Shanon Fontana EDT - 06/25/2019 [facility] MDAttender: Physician 04:20:00 PM EDT Namrata Haile MDAttender: Myra Naidu DOAttender: ERAdmitter: Physician Shanon Fontana MDConsultant: Lai Chao MD Patient discharged. Outpatient Attender: Nunu 06/09/2019 12:00:00 AM NEXTGEN ([facility] CloseReferrer: Nunu [facility] dical - [facility] Medical [facility]) Outpatient Melter Supervisor [employer]: Lavon 06/06/2019 12:00:00 AM NEXTGEN (Caremoabdirahman Carrion MD [facility]) Outpatient Attender: Lai 06/05/2019 12:00:00 AM NEXTGEN ([facility] JeremieReferrer: Juaquin MEDINA [facility]) Outpatient Melter Supervisor [employer]: Lavon 06/05/2019 12:00:00 AM NEXTGEN (Carepa[facility] Carrion MD [facility]) Inpatient Attender: Physician 06/04/2019 07:45:31 PM [facility] Dequan Jerez EST - 06/10/2019 [facility] MDAttender: Physician Ott 02:40:00 PM EST Mic MDAttender: Glen Carmonaender: ERAdmitter: Physician Dequan Jerez MDConsultant: Lavon Carrion MDConsultant: Physician Sara Shields MDConsultant: Lai Chao MD Patient discharged. Emergency Attender: GAYATRI 06/04/2019 04:54:00 WEAKNESS, VOMITING [place] CHANTAL PM EST - 06/04/2019 [facility] 06:34[facility]00 PM EST WEAKNESS, [place]IT[place] Patient discharged. Outpatient Attender: TYLER 05/08/2019 [facility], 06:00:[address] [facility] Outpatient Attender: TYLER 04/24/2019 [facility] TYLER, 10:37:00 AM [facility] Outpatient Attender: Mariano Eddy DPRonnell 04/21/2019 FOOT WOUND [place] 09:57:00 AM [facility] FOOT WOUND Outpatient Attender: TYLER 04/10/2019 11:22:00 [facility] Outpatient 03/31/2019 09:05:00 PM [place] TSGANESHT ([facility]) Outpatient Attender: TYLER 03/26/2019 09:34:00 AM H33.01 2 [facility] SARAAdmitter: [facility] SARA SCOTTReferrer: SARA SCOTT H33.012 Outpatient Attender: TYLER 03/26/2019 06:00:00 H33.012 [facility] MAC SC[facility]Refer[facility]: TYLER [facility] SARA H33.012 Outpatient Attender: Mehrdad BENDER 03/25/2019 11:24:00 AM [facility] Susan Hoff MDAdmitter: EST - 04/21/2019 [facility] 12:46:00 PM EST Patient discharged. Attender: 03/25/2019 [facility] [id number] 11:24:00 AM [facility] NETSWEST [id number] [facility] Outpatient Attender: SARA SCOTTAdmitter: 03/24/2019 [place] SARA SCOTTReferrer: TYLER 12:17:00 PM [facility] Emergency Attender: Alessandro Franz MDAttender: ICU- 03/11/2019 A NXIETY [facility] - [facility] Other GEMMA 08:48:00 PM Carolyn Dunham [facility] - Hospital 03/12/2019 10:51:00 AM EST ANXIETY [...] Inpatient Attender: JESSICA V-2NW 02/28/2019 07:00:00 [facility] OLSENAdmitter: KRISTINA [facility] Admission cancelled. Disregard status an d admitted date. Attender: 02/28/2019 [facility] [id number] 07:00:00 PM [place] [id number] Outpatient Attender: KRISTINA CURRIEttender: NAPOLEON 02/28/2019 [facility] LAURIE ECHEVARRIAAdmitter: SIMONE 04:15:00 PM EST - [facility] 04/10/2019 11:55:00 AM EST Patient discharged. Attender: 02/28/2019 [facility] [id number] 04:15:[address] Emergency Attender: Wesley PalaciosonAttender: 5T-EM 02/24/2019 PAIN [facility] - [facility] Other ERG 01:23:00 AM EST LEFT LEG Kwasi - 02/24/2019 Hospital 02:20:00 AM EST PAIN LEFT LEG Patient discharged. Outpatient Attender: Shy Renteria 02/14/2019 10:02:00 AM HO SP F/U Georgina Guy MD [facility] Hospital HOSP F/U Outpatient Attender: Juaquin 02/12/2019 OLGA (C daphniemoabdirahman Funez 12:32:00 PM EST Medical - [facility] ) Inpatient Attender: 01/29/2019 INTRACTABLE [place] Mary Ann Olivas 06:41:00 PM EDT - VOMITING/[place] I Hospital MDAttender: 02/11/2019 Brianna [place] 10:13:00 AM EST MDAttender: Nancy Brunson MDAttender: Juan Torre MDAdmitter: Nancy Brunson MDConsultant: Say Valentin MDConsultant: Shirin Stock MDConsultant: Sean Pineda BRICK PICKER INTRACTABLE VOMITING/LIZA Patient discharged. Outpatient Attender: Juaquin 01/21/2019 05:26:00 N EXTGEN ([facility] Gamarnik PM EDT Medical - [facility]) Inpatient Attender: Joce 12/27/2018 08:06:00 RIGHT LE DIABETIC [facility] MDAttender: PM EDT - 01/20/2019 [facility] KofiImer 11:32:00 AM EDT MDAttender: Anette Zhao MDAttender: MAU DOUGLASSAdmitter: Anette Zhao MDConsultant: Say Valentin MDConsultant: Sean Pineda BRICK PICKER RIGHT LE DIABETIC [facility] Patient discharged. Inpatient Attender: Manas 12/20/2018 08:36:00 AM [facility] EDT - 12/27/2018 [facility] MDAttender: 10:56:00 AM EDT Calvin Mercedes MDAttender: Monica Manuel MDAttender: Avery Pacheco DOAdmitter: Keysha Tompkins DOConsultant: Yonas Wright MDConsultant: Calvin Mercedes MD SEPSIS Patient discharged. Inpatient Attender: Aron 12/06/2018 INTRACTABLE NAUSEA [facility] MDAttender: 03:30:00 AM EDT - AND VOMIT ING; [facility] 12/18/2018 CHRONIC OSTEOMYEL MDAttender: Avery 02:55:00 PM EDT Junior DOAdmitter: Aron Rangelaham MDConsultant: Sean Pineda NPConsultant: Jennifer Oakley BRICK PICKER INTRACTABLE NAUSEA AND VOMITING; CHRONIC OSTEOMYEL Patient discharged. Inpatient Attender: Aron 11/14/2018 12:00:00 OSTEOMTEL ITIS [facility] MDAttender: PM EDT - 11/25/2018 [facility] Brianna [place] 04:48:00 PM EDT MDAttender: Sy Mota MDAttender: Idris Simms MDAttender: Mynor Root MDAdmitter: Keegan Aldrich MDConsultant: Emmett Ma MD OSTEOMTELITIS Patient discharged. Outpatient Attender: Mariano 08/16/2018 12:00:00 N EXTGEN ([facility] Fabianaferrer: Mariano AM EDT [facility]) Outpatient Attender: Juaquin 08/11/2018 12:00:00 N EXTGEN ([facility] GamsidReferrer: Abdirahman AM EDT M edical - [facility]) Functional Status Medications Medication Brand Start Product Dose Route Administrative Pharmacy [facility] Indications Reaction Description Data Name Date Form Instructions Instructions Source(s) Metoclopram METOCL take 1 tablet RP NEXTGEN nae 10 MG OPRAMI by oral route 3 ([facility] Oral Tablet DE HCL times every day Medical - 10 mg 10 mg 30 minutes [facility] before meals Medical and at bedtime Group PC) This may be an active medication. No end date is available. Start date above may not reflect actual date the medication was s tarted. prucalopride 1 MG MOTEGRITY 12/22/2019 take 2 RP NEXTGEN Oral Tablet 12:00:00 AM EDT tablet by ([facility] [Motegrity] 1 mg oral route Medical - Mt 1 mg every day [facility] Group PC) This may be an active medication. No end date is available. rifaximin 550 MG XIFAXAN 12/11/2019 take 1 RP NEXTGEN Oral Tablet 12:00:00 AM EDT tablet by ([facility] [XIFAXAN] 550 mg oral route Medical - [place] 550 mg every 8 [facility] hours. Group PC) This may be [...] route Medic al - [place] every day [facility] Group PC) This may be an [...] - [place] gram times every day [facility] Group ) on an empty stomach This [...] Refill(s), [facility] - Chewable tablet, EDT [place] Tablet chewable [facility] simethicone Center 80 mg oral tablet, [...] meals, # 90 tab, 0 Refill(s), Pharmacy: [facility]/pharmacy #[id number], 1 tab Oral Before meals Health - Tablet Reglan EST [place] 10 mg oral Hospital tablet [place] Lisinopril 20 lisinopril 20 06/10/2019 Tablet 20.0 Oral [place] MG Oral mg oral 09:09:00 AM mg 20 mg, = 1 tab, Oral, Daily, # 30 tab, 0 Refill(s), Pharmacy: [facility]/pharmacy #[id number], 1 tab Oral Daily Health - Tablet tablet EST [place] lisinopril 20 Hospit al mg oral Center tablet Hydralazine hydrALAZINE 06/10/2019 Tablet 25.0 Oral [place] Hydrochloride 25 mg oral 09:09:00 AM mg 25 mg, = 1 tab, Oral, q8hr, # 90 tab, 0 Refill(s), Pharmacy: [facility]/pharmacy #[id number], 1 tab Oral q8hr Health - 25 MG Oral tablet EST [facility] hydrALAZINE Center 25 mg oral tablet carvedilol carvedilol 06/10/2019 Tablet 6.25 Oral [place] 6.25 MG Oral 6.25 mg oral 09:09:00 AM mg 6.25 mg, = 1 tab, Oral, BID, # 60 tab, 0 Refill(s), Pharmacy: [facility]/pharmacy #[id number], 1 tab Oral BID Health - Tablet tablet [facility] carvedilol [facility] [facility].25 mg oral Center tablet metformin [id number] 06/05/2019 Tablet 500.0 Oral [place] 01:15:00 AM mg 500 mg, Oral, BID, 0 Refill(s) Health - [facility] Trazodone traZODone 04/16/2019 1.0 Oral ac NETSMART Hydrochloride hydrochloride 05:00:00 AM Tablet ti ([place] 50 MG Oral EST [facility]) Clonazepam KlonoPIN - 04/16/2019 1 ORAL co Kl onoPIN - [facility] 0.5 MG Oral 0.5 MG ORAL 12:00:00 AM Tablet mp 0.5 MG ORAL [facility] Tablet Tablet EST le Tablet [facility] [Klonopin] te d Clonazepam KlonoPIN - 04/03/2019 1 ORAL co Kl onoPIN - [facility] 0.5 MG Oral 0.5 MG ORAL 12:00:00 AM Tablet mp 0.5 MG ORAL [facility] Tablet Tablet EST le Tablet [facility] [Klonopin] te d Fluoxetine 10 PROzac [...] Lorazepam 1 Ativan 1 03/08/2019 1 {tab(s)} [id number] aborted Ativan [facility] Oral mg oral [...] machinery. Lorazepam 1 Ativan 1 02/24/2019 1 [id number] aborted Ativan [facility] Oral mg oral 02:02:37 AM {tab(s)} Health Tablet tablet EST System [Ativan] Ativan 1 mg oral tablet Metformin Metformin 02/10/2019 TAB 500 mg ORAL completed [facility] hydrochlorid Hcl 02:28:00 PM LET [place] e 500 MG EST Hospital Oral Tablet [Glucophage] Metformin Hcl Metocloprami Metoclopr 02/10/2019 TAB 10 mg ORAL completed [facility] de 10 MG amide Hcl 02:28:00 PM LET [place] Oral Tablet EST Hospital Metocloprami de Hcl Metformin Metformin 02/10/2019 TAB 500 mg ORAL active [facility] hydrochlorid Hcl 02:28:00 PM LET [place] e 500 MG EST Hospital Oral Tablet [Glucophage] Metformin Hcl Metocloprami Metoclopr 02/10/2019 TAB 10 mg ORAL active [facility] de 10 MG amide Hcl 02:28:00 PM LET [place] Oral Tablet EST Hospital Metocloprami de Hcl [...] 30 MG e Hcl 05:15:00 PM SUL [place] Delayed EST E, Hospital Release Oral EXT Capsule END [Cymbalta] ED Duloxetine REL Hcl EAS E Metoprolol Metoprolo 02/09/2019 TAB 25 mg ORAL completed [facility] Tartrate 25 l 05:15:00 PM LET [facility] MG Oral Tartrate EST Hospital Tablet duloxetine Duloxetin 02/09/2019 CAP 30 mg ORAL completed [facility] 30 MG e Hcl 05:15:00 PM SUL [place] Delayed EST E, Hospital Release Oral EXT Capsule END [Cymbalta] ED Duloxetine REL Hcl EAS E Amlodipine Amlodipin 02/09/2019 TAB 10 mg ORAL completed [facility] 10 MG Oral e 05:15:[address] Tablet Besylate EST Hospital [[facility]] Amlodipine Besylate Lisinopril Lisinopri 02/09/2019 TAB 40 mg ORAL active [facility] 20 MG Oral l 05:15:[address] Tablet EST Hospital Metoprolol Metoprolo 02/09/2019 TAB 25 mg ORAL active [facility] Tartrate 25 l 05:15:00 PM LET [facility] MG Oral Tartrate EST Hospital Tablet Hydralazine Hydralazi 02/09/2019 TAB 75 mg ORAL completed [facility] Hydrochlorid ne Hcl 05:15:00 PM LET [place] e 25 MG Oral EST Hospita l Tablet Hydralazine Hcl Hydralazine Hydralazi 02/09/2019 TAB 75 mg ORAL active [facility] Hydrochlorid ne Hcl 05:15:00 PM LET [place] e 25 MG Oral EST Hospita l Tablet Hydralazine Hcl pantoprazole Pantopraz 02/09/2019 TAB 40 mg ORAL active [facility] 40 MG ole 05:15:00 PM LET [place] Delayed Sodium EST Hospital Release Oral Tablet [Protonix] Pantoprazole Sodium pantoprazole Pantopraz 02/09/2019 TAB 40 mg ORAL completed [facility] 40 MG ole 05:15:00 PM LET [place] Delayed Sodium EST Hospital Release Oral Tablet [Protonix] Pantoprazole Sodium Amlodipine Amlodipin 02/09/2019 TAB 10 mg ORAL active [facility] 10 MG Oral e 05:15:[address] Tablet Besylate EST Hospital [[facility]] Amlodipine Besylate Lisinopril Lisinopri 02/09/2019 TAB 40 [...] Glargine 100 Glargine 12:30:00 PM PEC OUS [place] UNT/ML EDT IFI [facility] Injectable ED Solution [Lantus] Lisinopril Lisinopri 01/16/2019 TAB 40 mg ORAL completed [facility] 20 MG Oral l 12:30:[address] Tablet EDT Hospital duloxetine Duloxetin 01/16/2019 CAP 30 mg ORAL completed [facility] 30 MG e Hcl 12:30:00 PM SUL [place] Delayed EDT E, Hospital Release Oral EXT Capsule END [Cymbalta] ED Duloxetine REL Hcl EAS E Metocloprami Metoclopr 01/16/2019 TAB 10 mg ORAL completed [facility] de 10 MG amide Hcl 12:30:00 PM LET [place] Oral Tablet EDT Hospital Metocloprami de Hcl Nystatin 100 Nystatin 01/16/2019 POW 1 TOPICAL completed [facility] UNT/MG 12:30:00 PM PAZ {Applicat P l[facility] Topical EDT or} Hospital Powder [Nyamyc] Insulin Insulin 01/16/2019 UNS 15 SUBCUTANE completed [facility] Glargine 100 Glargine 12:30:00 PM PEC OUS [place] UNT/ML EDT [facility] Injectable ED Solution [Lantus] Hydromorphon Hydromorp 01/16/2019 TAB 4 mg ORAL completed [facility] e kimberly Hcl 12:30:00 PM LET [facility] Hydrochlorid EDT Hospita l e 4 MG Oral Tablet [Dilaudid] Hydromorphon e Hcl Insulin Insulin 01/16/2019 UNS 0 SUBCUTANE completed [facility] Lispro 100 Human 12:30:00 PM PEC OUS P l[facility] UNT/ML Lispro EDT [facility] Injectable ED Solution [Humalog] Insulin Human Lispro pantoprazole Pantopraz 01/16/2019 TAB 40 mg ORAL completed [facility] 40 MG ole 12:30:00 PM LET [place] Delayed Sodium EDT Hospital Release Oral Tablet [Protonix] Pantoprazole Sodium Metocloprami Metoclopr 01/16/2019 TAB 10 mg ORAL completed [facility] de 10 MG amide Hcl 12:30:00 PM LET [place] Oral Tablet EDT Hospital Metocloprami de Hcl Lisinopril Lisinopri 01/16/2019 TAB 40 mg ORAL completed [facility] 20 MG Oral l 12:30:[address] Tablet EDT Hospital Nystatin 100 Nystatin 01/16/2019 POW 1 TOPICAL completed [facility] UNT/MG 12:30:00 PM PAZ {Applicat P lains Topical EDT or} [facility] Powder [Nyamyc] Metoprolol Metoprolo 01/16/2019 TAB 25 mg ORAL completed [facility] Tartrate 25 l 12:30:00 PM LET [facility] MG Oral Tartrate EDT Hospital Tablet Hydralazine Hydralazi 01/16/2019 TAB 75 mg ORAL completed [facility] Hydrochlorid ne Hcl 12:30:00 PM LET [place] e 25 MG Oral EDT Hospita l Tablet Hydralazine Hcl Lidocaine Lidocaine 01/16/2019 PAT 1 {Patch} TOPICAL completed [facility] Hydrochlorid 12:30:00 PM CH [place] e 0.05 MG/MG EDT Hospita l Transdermal Patch [Lidoderm] Lidocaine Lidocaine 01/16/2019 PAT 1 {Patch} TOPICAL completed [facility] Hydrochlorid 12:30:00 PM CH [place] e 0.05 MG/MG EDT Hospita l Transdermal Patch [Lidoderm] Insulin Insulin 01/16/2019 UNS 15 SUBCUTANE completed [facility] Glargine 100 Glargine 12:30:00 PM PEC OUS [place] UNT/ML EDT [facility] Hospital Injectable ED Solution [Lantus] Hydralazine Hydralazi 01/16/2019 TAB 75 mg ORAL completed [facility] Hydrochlorid ne Hcl 12:30:00 PM LET [place] e 25 MG Oral EDT Hospita l Tablet Hydralazine Hcl Lisinopril Lisinopri 01/16/2019 TAB 40 mg ORAL completed [facility] 20 MG Oral l 12:30:[address] Tablet EDT [facility] Hydromorphon Hydromorp 01/16/2019 TAB 4 mg [...] 30 MG e Hcl 12:30:00 PM SUL [place] Delayed EDT E, Hospital Release Oral EXT [...] PEC OUS P lains UNT/ML Lispro EDT [facility] Injectable ED Solution [Humalog] Insulin Human Lispro Insulin Insulin 01/16/2019 UNS 0 SUBCUTANE completed [facility] Lispro 100 Human 12:30:00 PM PEC OUS P l[facility] UNT/ML Lispro EDT [facility] Injectable ED Solution [Humalog] Insulin Human [...] SUL Pl ains Capsule EDT E Hospital [[facility]] Pregabalin Dextromethor Guaifenes 01/16/2019 LIQ 5 mL ORAL completed [facility] sexton in/Dextro 12:30:00 PM UID Kim ins Hydrobromide methorpha EDT Ho spital 2 MG/ML / n Guaifenesin 20 MG/ML Oral Solution Guaifenesin/ Dextromethor sexton pantoprazole Pantopraz 01/16/2019 TAB 40 mg ORAL completed [facility] 40 MG ole 12:30:00 PM LET [place] Delayed Sodium EDT Hospital Release Oral Tablet [Protonix] Pantoprazole Sodium Dextromethor Guaifenes 01/16/2019 LIQ 5 mL ORAL completed [facility] sexton in/Dextro 12:30:00 PM UID [facility] ins Hydrobromide methorpha EDT Ho spital 2 MG/ML / n Guaifenesin 20 MG/ML Oral Solution Guaifenesin/ Dextromethor sexton pantoprazole Pantopraz 01/16/2019 TAB 40 mg ORAL completed [facility] 40 MG ole 12:30:00 PM LET [place] Delayed Sodium EDT Hospital Release Oral Tablet [Protonix] Pantoprazole Sodium pregabalin Pregabali 01/16/2019 CAP 75 mg ORAL completed [facility] 75 MG Oral n 12:30:[address] [facility] Capsule EDT E Hospital [[facility]] Pregabalin Acetaminophe Acetamino 01/16/2019 TAB 975 mg ORAL completed [facility] n 325 MG phen 12:30:00 PM LET Plai ns Oral Tablet EDT Hospital Metocloprami Metoclopr 01/16/2019 TAB 10 mg ORAL completed [facility] de 10 MG amide Hcl 12:30:00 PM LET [place] Oral Tablet EDT Hospital Metocloprami de Hcl duloxetine Duloxetin 01/16/2019 CAP 30 mg ORAL completed [facility] 30 MG e Hcl 12:30:00 PM SUL [place] Delayed EDT E, Hospital Release Oral EXT Capsule END [Cymbalta] ED Duloxetine REL Hcl EAS E Lidocaine Lidocaine 01/16/2019 PAT 1 {Patch} TOPICAL completed [facility] Hydrochlorid 12:30:00 PM CH [place] e 0.05 MG/MG EDT Hospita l Transdermal Patch [Lidoderm] Hydralazine Hydralazi 01/16/2019 TAB 75 mg ORAL completed [facility] Hydrochlorid ne Hcl 12:30:00 PM LET [place] e 25 MG Oral EDT Hospita l Tablet Hydralazine Hcl pantoprazole Pantopraz 12/18/2018 TAB 40 mg ORAL completed [facility] 40 MG ole 09:27:00 AM LET [place] Delayed Sodium EDT Hospital Release Oral Tablet [Protonix] Pantoprazole Sodium pantoprazole Pantopraz 12/18/2018 TAB 40 mg ORAL completed [facility] 40 MG ole 09:27:00 AM LET [place] Delayed Sodium EDT Hospital Release Oral Tablet [Protonix] Pantoprazole Sodium pantoprazole Pantopraz 12/18/2018 TAB 40 mg ORAL completed [facility] 40 MG ole 09:27:00 AM LET [place] Delayed Sodium EDT Hospital Release Oral Tablet [Protonix] Pantoprazole Sodium pantoprazole Pantopraz 12/18/2018 TAB 40 mg ORAL completed [facility] 40 MG ole 09:27:00 AM LET [place] Delayed Sodium EDT Hospital Release Oral Tablet [Protonix] Pantoprazole Sodium pantoprazole Pantopraz 12/18/2018 TAB 40 mg ORAL completed [facility] 40 MG ole 09:27:00 AM LET [place] Delayed Sodium EDT Hospital Release Oral Tablet [...] 10 MG amide Hcl 09:18:00 AM LET [place] Oral Tablet EDT Hospital [[facility]] Metocloprami de Hcl Erythromycin Erythromy 12/18/2018 CAP 250 mg ORAL completed [facility] 250 MG jesús Base 09:18:[address] Delayed EDT E, Hospital Release Oral DEL Capsule AYE Erythromycin D Base REL EAS E Amlodipine Amlodipin 12/18/2018 TAB 10 mg ORAL completed [facility] 10 MG Oral e 09:18:[address] Tablet Besylate EDT Hospital [[facility]] Amlodipine Besylate Metocloprami Metoclopr 12/18/2018 TAB 10 mg ORAL completed [place] de 10 MG amide Hcl 09:18:00 AM LET [place] Oral Tablet EDT Hospital [[facility]] Metocloprami de Hcl Erythromycin Erythromy 12/18/2018 CAP 250 mg ORAL completed [place] 250 MG jesús Base 09:18:[address] [facility] Delayed EDT E, Hospital Release Oral DEL Capsule AYE Erythromycin D Base REL EAS E Amylases Amylase/L 12/18/2018 CAP 4 ORAL completed [facility] 18373 UNT / ipase/Pro 09:18:00 AM SUL {Capsule} [place] Endopept[place] [address] UNT DEL / Lipase AYE 6000 UNT D Delayed REL Release Oral EAS Capsule E [Creon] Amylase/Lipa se/Protease Erythromycin Erythromy 12/18/2018 CAP 250 mg ORAL completed [facility] 250 MG jesús Base 09:18:[address] [facility] Delayed EDT E, Hospital Release Oral DEL Capsule AYE Erythromycin D Base REL EAS E Amylases Amylase/L 12/18/2018 CAP 4 ORAL completed [facility] [address]37 UNT / ipase/Pro 09:18:00 AM SUL {Capsule} [place] Endopeptidas [place] [address] UNT DEL / Lipase AYE 6000 UNT D Delayed REL Release Oral EAS Capsule E [Creon] Amylase/Lipa se/Protease Amylases Amylase/L 12/18/2018 CAP 4 ORAL completed [facility] [address]889 UNT / ipase/Pro 09:18:00 AM SUL {Capsule} [place] Endopeptidas [place] [address] UNT DEL / Lipase AYE 6000 UNT D Delayed REL Release Oral EAS Capsule E [Creon] Amylase/Lipa se/Protease Amlodipine Amlodipin 12/18/2018 TAB 10 mg ORAL completed [facility] 10 MG Oral e 09:18:[address] Tablet Besylate EDT Hospital [[facility]] Amlodipine Besylate Metocloprami Metoclopr 12/18/2018 TAB 10 mg ORAL completed [place] de 10 MG amide Hcl 09:18:00 AM LET [place] Oral Tablet EDT Hospital [[facility]] Metocloprami de Hcl Metocloprami Metoclopr 12/18/2018 TAB 10 mg ORAL completed [place] de 10 MG amide Hcl 09:18:00 AM LET [place] Oral Tablet EDT Hospital [[facility]] Metocloprami de Hcl Metocloprami Metoclopr 12/18/2018 TAB 10 mg ORAL completed [place] de 10 MG amide Hcl 09:18:00 AM LET [place] Oral Tablet EDT Hospital [[facility]] Metocloprami de Hcl Erythromycin Erythromy 12/18/2018 CAP 250 mg ORAL completed [place] 250 MG jesús Base 09:18:[address] [facility] Delayed EDT E, Hospital Release Oral DEL Capsule AYE Erythromycin D Base REL EAS E Amylases Amylase/L 12/18/2018 CAP 4 ORAL completed [place] [address] UNT / ipase/Pro 09:18:00 AM SUL {Capsule} [place]opeptidas [place] [address] UNT DEL / Lipase AYE 6000 UNT D Delayed REL Release Oral EAS Capsule E [Creon] Amylase/Lipa se/Protease Amylases Amylase/L 12/18/2018 CAP 4 ORAL completed [place] 63507 UNT / ipase/Pro 09:18:00 AM SUL {Capsule} [place] Endopeptidas [place]ase [place] [address] UNT DEL / Lipase AYE 6000 UNT D Delayed REL Release Oral EAS Capsule E [Creon] Amylase/Lipa se/Protease Amlodipine Amlodipin 12/18/2018 TAB 10 mg ORAL completed [place] 10 MG Oral e 09:18:[address] Tablet Besylate EDT Hospital [[facility]] Amlodipine Besylate Amlodipine Amlodipin 12/18/2018 TAB 10 mg ORAL completed [place] 10 MG Oral e 09:18:[address] Tablet Besylate EDT Hospital [[facility]] Amlodipine Besylate doxycycline Doxycycli 11/25/2018 CAP 100 [...] ORAL completed [place] MG Oral 02:47:00 PM [facility] [Glucotrol] Glipizide 5 Glipizide 11/25/2018 TAB 5 mg ORAL completed [facility] MG Oral 02:47:00 PM [facility] [Glucotrol] Erythromycin Erythromy 11/25/2018 DAVID 200 mg ORAL completed [place] Ethylsuccina jesús 02:47:00 PM PEN [place] te 40 MG/ML Ethylsucc EDT [facility] Oral inate N Suspension [[facility] Erythromycin Erythromy 11/25/2018 DAVID 200 mg ORAL completed [place] Ethylsuccina jesús 02:47:00 PM PEN [place] te 40 MG/ML Ethylsucc EDT [facility] Oral inate N Suspension [E.E.S.] Erythromycin Erythromy 11/25/2018 DAVID 200 mg ORAL completed [place] Ethylsuccina jesús 02:47:00 PM PEN [place] te 40 MG/ML Ethylsucc EDT [facility] Oral inate N Suspension [[facility].] gabapentin Gabapenti 11/25/2018 CAP 300 mg ORAL completed [place] 300 MG Oral n 02:47:00 PM SUL [facility] Capsule EDT E Hospital [Neurontin] Gabapentin Erythromycin Erythromy 11/25/2018 DAVID 200 mg ORAL completed [place] Ethylsuccina jesús 02:47:00 PM PEN [place] te 40 MG/ML Ethylsucc EDT [facility] Hos [...] completed [place] Ethylsuccina jesús 02:47:00 PM PEN [place] te 40 MG/ML Ethylsucc EDT SIO Hos [...] completed [place] Ethylsuccina jesús 02:47:00 PM PEN [place] te 40 MG/ML Ethylsucc EDT SIO Hos [...] 0.25 UNT/MG se 06:02:00 PM TME {Applicat [place] Topical EDT NT or} Hospital Ointment [Santyl] [...] 0.25 UNT/MG se 06:02:00 PM TME {Applicat [place] Topical EDT NT or} Hospital Ointment [Santyl] Collagenase gabapentin Gabapenti 11/10/2018 CAP 100 mg ORAL completed [place] 100 MG Oral n 06:02:00 PM SUL [facility] Capsule EDT E Hospital Gabapentin COLLAGENASE Collagena 11/10/2018 OIN 1 TOPICAL completed [facility] 0.25 UNT/MG se 06:02:00 PM TME {Applicat [place] Topical EDT NT or} Hospital Ointment [Santyl] Collagenase Amlodipine 5 Amlodipin 11/10/2018 TAB 5 mg ORAL completed [place] MG Oral e 06:02:00 PM LET [place] s Tablet Besylate EDT [facility] [[facility]] Amlodipine Besylate COLLAGENASE Collagena 11/10/2018 OIN 1 TOPICAL completed [facility] 0.25 UNT/MG se 06:02:00 PM TME {Applicat [place] Topical EDT NT or} Hospital Ointment [Santyl] Collagenase Amlodipine 5 Amlodipin 11/10/2018 TAB 5 mg ORAL completed [place] MG Oral e 06:02:00 PM LET [place] s Tablet Besylate EDT [facility] [[facility]] Amlodipine Besylate gabapentin Gabapenti 11/10/2018 CAP 100 mg ORAL completed [place] 100 MG Oral n 06:02:00 PM [facility] Capsule EDT E Hospital Gabapentin Amlodipine 5 Amlodipin 11/10/2018 TAB 5 mg ORAL completed [place] MG Oral e 06:02:00 PM [facility] [place] [facility] Amlodipine Besylate COLLAGENASE Collagena 11/10/2018 OIN 1 TOPICAL completed [place] 0.25 UNT/MG se 06:02:00 PM TME {Applicat [place] Topical EDT NT or} Hospital Ointment [Santyl] Collagenase COLLAGENASE Collagena 11/10/2018 OIN 1 TOPICAL completed [place] 0.25 UNT/MG se 06:02:00 PM TME {Applicat [place] Topical EDT NT or} Hospital Ointment [Santyl] Collagenase Amlodipine 5 Amlodipin 11/10/2018 TAB 5 mg ORAL completed [place] MG Oral e 06:02:00 PM LET [place] Tablet Besylate EDT [facility] [[facility]] Amlodipine Besylate ertapenem ERTAPENEM 07/13/2018 in RP [...] Policy type / Policy ID Covered Covered alliance party's Policy Plan Coverage type alliance party ID relationship to Ma Information ma SANTANA [id number] SP [id number] MEDICARE ADV PLAN MEDICAID [id number] SP [id number] [facility] Medicare [id number] 1 [id number] Part B Par Providers MCAD Computer [id number] [employer] FIDL Santana [id number] Care [place] DAVID MEDICARE [id number] SP [id number] MEDICAID [id number] PT [id number] MEDICARE [id number] PT [id number] MEDICAID [id number] SP [id number] MEDICARE [id number] SP [id number] [place] Commercial [id number] 1 [id number] Medicare Medicaid Medicaid [id number] Medicare Part Medicare [id number] 1 [id number] Outpatient Medicare Part Medicare [id number] 1 [id number] A BETTER [id number] PT [id number] HEALTH/FIDELI S BETTER [id number] PT [id number] HEALTH/FIDELI S Medicare Part Medicare [id number] 1 [id number] Outpatient Medicaid Medicaid [id number] Medicare Part Medicare [id number] 1 [id number] A FIDL [place] [id number] 1 [id number] Care [place] SELF PAY 000 Self 000 MEDICAID OP [id number] Self [id number] SELF PAY 0000 Self 0000 MEDICAID OP [id number] Self [id number] MEDICARE [id number] Self [id number] Santana Care Medicaid [id number] 1 [id number] BETTER [id number] PT [id number] HEALTH/FIDELI S BLUE CROSS [id number] PT [id number] Problems, Conditions, and Diagnoses Code Display Name Description Problem Type Effective Data Sour ce(s) Dates K31.84 Gastroparesis Gastroparesis Diagnosis 01/08/2020 NEXTGEN 03:20:00 PM ([facility] EDT Medical [facility]) K58.0 Irritable bowel Irritable bowel Diagnosis 01/08/2020 NEXT GEN syndrome with syndrome with 03:20:00 PM ([facility] diarrhea diarrhea EDT [facility]) R79.89 Other specified Low testosterone in Diagnosis 12/22/2019 NEXTGEN abnormal findings of male 04:48:00 PM ([facility] blood chemistry EDT [facility]) E11.43 Type 2 diabetes DM gastroparesis Diagnosis 12/22/2019 NEX TGEN mellitus with 04:48:00 PM ([facility] diabetic autonomic EDT Medica l - [place] (poly)neuropathy [facility]) K58.1 Irritable bowel Irritable bowel Diagnosis 12/11/2019 NEXT GEN syndrome with syndrome with 03:16:00 PM ([facility] constipation constipation EDT [facility]) E11.9 Type 2 diabetes Type 2 diabetes Diagnosis 12/11/2019 NEXT GEN mellitus without mellitus without 03:16:00 PM ( [facility] complications complications EDT [facility]) E11.621 Type 2 diabetes Type 2 diabetes Diagnosis 11/28/2019 NEXT GEN mellitus with foot mellitus with foot 01:45:00 PM ([facility] ulcer ulcer, with EDT [facility] [place] [facility] E11.40 Type 2 diabetes Type 2 diabetes Diagnosis 11/28/2019 NEXT GEN mellitus with mellitus with 01:45:00 PM ([facility] diabetic neuropathy, diabetic EDT Medi beata - [place] unspecified neuropathy, [facility] R53.1 Weakness Weakness Diagnosis 10/23/2019 [facility] - New 03:29:00 AM [facility] VOMITING/SOB VOMITING/SOB Diagnosis 10/23/2019 [facility] - New 03:29:00 AM [facility] E11.9 Type 2 diabetes Type 2 diabetes Diagnosis 10/23/2019 S - New mellitus without mellitus without 03:29:00 AM [facility] complications complication EDT Hospital R52 Pain, unspecified Pain Diagnosis 10/23/2019 S - N ew 03:29:00 AM [facility] 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 Malingerer Diagnosis 10/23/2019 S - New [conscious 03:29:00 AM [facility]] EDT Hospital Z03.818 Encounter for Encounter for Diagnosis 10/23/2019 S - Ne w observation for observation for 03:29:00 AM Freddy helle suspected exposure suspected exposure EDT Hospital to other biological to other biological agents ruled out agent, ruled out F41.9 Anxiety disorder, Anxiety disorder Diagnosis 10/23/2019 M HS - New unspecified 03:29:00 AM [facility] Z09 Encounter for Hospital discharge Diagnosis 10/16/2019 NEX TGEN follow-up follow-up 03:04:00 PM ([facility] examination after EDT [facility] completed treatment [facility] for conditions other [facility] PC) than malignant neoplasm R10.84 Generalized Generalized Diagnosis 10/16/2019 NEXTGEN abdominal pain abdominal pain 03:04:00 PM (Care [facility]) F41.1 Generalized anxiety RACHELL (generalized Diagnosis 10/16/2019 NEXTGEN disorder anxiety disorder) 03:04:00 PM (Care [facility]) D64.9 Anemia, unspecified Anemia, unspecified Diagnosis 020 NEXTGEN type 03:04:00 PM ([facility]) E11.21 Type 2 diabetes Type 2 diabetes Diagnosis 10/16/2019 NEXT GEN mellitus with mellitus with 03:04:00 PM [facility] diabetic [facility] nephropathy [facility]) L89.891 Pressure ulcer of Pressure ulcer of Diagnosis 10/16/2019 NEXTGEN other site, stage 1 other site, stage 1 11:30:0 0 AM ([facility]) K92.2 Gastrointestinal UGIB (upper Diagnosis 09/11/2019 NEXTGEN hemorrhage, gastrointestinal 10:15:00 AM ([facility] unspecified bleed) [facility]) Z00.00 Encounter for Encntr for general Diagnosis 08/14/2019 NEX TGEN general adult adult medical exam 12:00:00 AM ([facility] medical examination w/o abnormal EDT Med ical [facility] without abnormal findings [facility] Me dical findings Group PC) I10 Essential (primary) Essential (primary) Diagnosis 020 NEXTGEN hypertension [facility]:00:00 [facility] E78.5 Hyperlipidemia, Hyperlipidemia, Diagnosis 08/14/2019 NEXT GEN unspecified unspecified 12:00:00 AM ([facility]) E11.51 Type 2 diabetes Type 2 diabetes w Diagnosis 08/14/2019 NE XTGEN mellitus with diabetic peripheral 12:00:00 AM ( [facility] diabetic peripheral angiopath w/o EDT Hi dical - [place] angiopathy without gangrene [facility] gangrene Group PC) D63.1 Anemia in chronic Anemia in chronic Diagnosis 08/14/2019 NEXTGEN kidney disease kidney disease 12:00:00 AM ([facility]) R11.10 Vomiting, Vomiting, Diagnosis 06/24/2019 [facility] unspecified unspecified 11:08:00 AM - [facility] E11.43 Type 2 diabetes Type 2 diabetes Diagnosis 06/24/2019 [facility] mellitus with mellitus with 11:08:00 [facility] (poly)neuropathy (poly)neuropathy Ce nter R11.2 Nausea with Nausea with Diagnosis 06/06/2019 [facility] vomiting, vomiting, 12:16:00 PM - [place] unspecified unspecified [facility] M86.60 Other chronic M86.60 [...] Personal history of PERSONAL HISTORY OF Diagnosis [address] [place] [address] other infectious and OTHER INFECTIOUS 09:34:00 AM [facility] parasitic diseases AND PARASITIC [facility] Car e DISEASES SHEEX Z89.511 Acquired absence of ACQUIRED ABSENCE OF Diagnosis [place] right leg below knee RIGHT LEG BELOW 09:34:00 A M [facility] KNEE [facility] SHEEX K31.84 Gastroparesis GASTROPARESIS Diagnosis 03/26/2019 [facility] 09:34:00 AM [facility] SHEEX Z79.84 nursing home (current) SHELTER (CURRENT) Diagnosis [address] [place] [address] use of oral USE OF ORAL 09:34:00 AM [facility] hypoglycemic drugs HYPOGLYCEMIC DRUGS [facility] SHEEX F41.9 Anxiety disorder, ANXIETY DISORDER, Diagnosis 03/26/2019 [place] unspecified UNSPECIFIED 09:34:00 AM [facility] [employer] E11.43 Type 2 diabetes TYPE 2 DIABETES W Diagnosis 03/26/2019 [facility] mellitus with DIABETIC AUTONOMIC 09:34:00 AM [facility] [employer] diabetic autonomic (POLY)NEUROPATHY [facility] (poly)neuropathy 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 H33.42 Traction detachment TRACTION DETACHMENT Diagnosis [place] of retina, left eye OF RETINA, LEFT EYE 09:34:0 0 AM [facility] SHEEX H33.012 Retinal detachment RETINAL DETACHMENT Diagnosis [address] [place] [address] with single break, WITH SINGLE BREAK, 12:17:00 PM [facility] left eye LEFT EYE [employer] F41.1 Generalized anxiety Generalized anxiety Diagnosis [facility] - New disorder disorder 08:48:00 PM [facility] ANXIETY ANXIETY Diagnosis 03/11/2019 [facility] - New 08:48:00 PM [facility] Z89.431 Acquired absence of Acquired absence of Diagnosis [facility] - New right foot right foot 08:48:00 PM [facility] F43.9 Reaction to severe Reaction to severe Diagnosis 9 [facility] - New stress, unspecified stress 08:18:00 PM [facility] F32.89 Other specified Other depressive Diagnosis 03/08/2019 [facility] - New depressive episodes episodes 08:18:00 PM [facility] ANXIETY-WAS HERE ANXIETY-WAS HERE Diagnosis 03/08/2019 [facility] S - New YESTERDAY YESTERDAY 08:18:00 PM [facility] F41.8 Other specified Other specified Diagnosis 03/06/2019 [facility] - New anxiety disorders anxiety disorders 08:48:00 PM [facility] HIGH ANXIETY HIGH ANXIETY Diagnosis 03/06/2019 [facility] - New 08:48:00 PM [facility] Z89.511 Acquired absence of Acquired absence of Diagnosis 019 [facility] - New right leg below knee right lower 08:48:00 PM [facility] knee PAIN LEFT LEG PAIN LEFT LEG Diagnosis 02/24/2019 [facility] - Mo unt 01:23:00 AM [facility] M79.604 Pain in right leg Pain of right lower Diagnosis 9 [facility] - [place] extremity 01:23:00 AM [facility] F41.9 Anxiety disorder, Anxiety disorder Diagnosis 02/24/2019 [facility] [place] unspecified 01:23:00 AM [facility] D64.89 Other specified D64.89 Diagnosis 02/14/2019 [place] anemias 10:02:00 AM Hospital EST Z51.89 Encounter for other Z51.89 Diagnosis 02/14/2019 [place] specified aftercare 10:02:00 AM Hosp ital EST F41.9 Anxiety disorder, F41.9 Diagnosis 01/29/2019 [place] unspecified 11:08:00 PM Hospital EDT F32.9 Major depressive F32.9 Diagnosis 01/29/[address] [place] disorder, single 11:08:00 PM Hospita l episode, unspecified EDT G89.29 Other chronic pain G89.29 Diagnosis 01/29/2019 [place] 11:08:00 PM Hospital EDT K21.0 Gastro-esophageal K21.0 Diagnosis 01/29/2019 [place] reflux disease with 11:08:00 PM Hosp ital esophagitis EDT K59.00 Constipation, K59.00 Diagnosis 01/29/2019 [place] unspecified 11:08:00 PM Hospital EDT E11.610 Type 2 diabetes E11.610 Diagnosis 01/29/2019 [place] mellitus with 11:08:00 PM Hospital diabetic neuropathic EDT arthropathy Z89.422 Acquired absence of Z89.422 Diagnosis 01/29/2019 [place] other left toe(s) 11:08:00 PM Hospit al EDT D63.8 Anemia in other D63.8 Diagnosis 01/29/2019 [place] chronic diseases 11:08:00 PM Hospita l classified elsewhere EDT 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 Z76.5 Diagnosis 01/29/2019 [place] [conscious 11:08:00 PM Hospital simulation] EDT R11.2 Nausea with R11.2 Diagnosis 01/29/2019 [place] vomiting, 11:08:00 PM Hospital unspecified EDT E86.0 Dehydration E86.0 Diagnosis 01/29/2019 [place] 11:08:00 PM Hospital EDT Z86.14 Personal history of Z86.14 Diagnosis 01/29/2019 [place] Methicillin 11:08:00 PM Hospital resistant EDT Staphylococcus aureus infection Z91.14 Patient's other Z91.14 Diagnosis 01/29/2019 [place] noncompliance with 11:08:00 PM [facility]pi [facility] medication regimen EDT Z89.511 Acquired absence of Z89.511 Diagnosis 01/29/2019 [place] right leg below knee 11:08:00 PM Hos pital EDT I10 Essential (primary) I10 Diagnosis 01/29/2019 [place] hypertension 11:08:00 PM Hospital EDT K31.84 Gastroparesis K31.84 Diagnosis 01/29/2019 [place] 11:08:00 PM Hospital EDT E87.1 Hypo-osmolality and E87.1 Diagnosis 01/29/2019 [place] hyponatremia 11:08:00 PM Hospital EDT N17.9 Acute kidney N17.9 Diagnosis 01/29/2019 [place] failure, unspecified 11:08:00 PM Hos pital EDT [...] 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 12/27/2018 [place] duodenum 10:53:00 PM Hospital EDT K76.0 Fatty (change of) K76.0 Diagnosis 12/27/2018 [place] liver, not elsewhere 10:53:00 PM Hos pital classified EDT I16.0 Hypertensive urgency I16.0 Diagnosis 12/27/2018 [place] 10:53:00 PM Hospital EDT A41.9 Sepsis, unspecified A41.9 Diagnosis 12/27/2018 [place] organism 10:53:00 PM Hospital EDT Z91.018 Allergy to other Z91.018 Diagnosis 12/27/[address] [place] foods 10:53:00 PM Hospital EDT 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) Z79.84 Diagnosis 12/27/2018 [place] use of oral 10:53:00 PM Hospital hypoglycemic drugs EDT Z79.899 Other roasterman Z79.899 Diagnosis 12/27/2018 [place] (current) drug 10:53:00 PM Hospital therapy EDT K31.7 Polyp of stomach and K31.7 Diagnosis 12/27/2018 [place] duodenum 10:53:00 PM Hospital EDT Z87.891 Personal history of Z87.891 Diagnosis 12/20/2018 [place] nicotine dependence 11:00:00 AM Hosp ital EDT Z79.4 nursing home (current) Z79.4 Diagnosis 12/20/2018 [place] use of insulin 11:00:00 AM Hospital EDT 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 12/20/2018 [place] ulcer of other part 11:00:00 AM Hosp ital of left foot with EDT unspecified severity L97.519 Non-pressure chronic L97.519 Diagnosis 12/20/2018 [place] ulcer of other part 11:00:00 AM [facility]osp ital of right foot with EDT unspecified severity L02.415 Cutaneous abscess of L02.415 Diagnosis 12/20/2018 [place] right lower limb 11:00:00 AM Hospita l EDT M86.671 Other chronic M86.671 Diagnosis 12/20/2018 [place] osteomyelitis, right 11:00:00 AM Hos pital ankle and foot EDT M86.672 Other chronic M86.672 Diagnosis 12/20/2018 [place] osteomyelitis, left 11:00:00 AM Hosp ital ankle and foot EDT L03.115 Cellulitis of right L03.115 Diagnosis 12/20/2018 [place] lower limb 11:00:00 AM Hospital EDT A41.02 Sepsis due to A41.02 Diagnosis 12/20/2018 [place] Methicillin 11:00:00 AM Hospital resistant EDT Staphylococcus aureus Z91.19 Patient's Z91.19 Diagnosis 12/06/2018 [place] noncompliance with 09:02:00 AM [facility]pi [facility] other medical EDT treatment and regimen R07.9 Chest pain, R07.9 Diagnosis 12/06/2018 [place] unspecified 09:02:00 AM Hospital EDT D50.9 Iron deficiency D50.9 Diagnosis 12/06/2018 [place] anemia, unspecified 09:02:00 AM Hosp ital EDT Z79.2 nursing home (current) Z79.2 Diagnosis 12/06/2018 [place] use of antibiotics 09:02:00 AM [facility]pi [facility] EDT E11.42 Type 2 diabetes E11.42 Diagnosis 12/06/2018 [place] mellitus with 09:02:00 AM Hospital diabetic EDT polyneuropathy Surgeries/Procedures Procedure Description Date Indications Data Source(s) OFFICE/OUTPATIENT VISIT EST OFFICE/OUTPATIENT 01/08/2020 [facility] VISIT EST 12:00:00 AM ([facility]) RMVL DEVITAL TIS 20 CM/< RMVL DEVITAL TIS 20 11/28/2019 [facility] CM/< 12:00:00 AM ([facility]) Injection, ondansetron Ondansetron hcl 10/29/2019 NE XTGEN hydrochloride, per 1 mg injection 12:00:00 AM ([facility]) THER/PROPH/DIAG IV INF INIT THER/PROPH/DIAG IV 10/29/2019 [facility] INF INIT 12:00:00 AM ([facility] EDT [facility]) INPATIENT CONSULTATION INPATIENT 10/28/2019 NEXT[facility] EN CONSULTATION 12:00:00 AM ([facility] EDT [facility]) INPATIENT CONSULTATION INPATIENT 10/26/2019 NEXTG EN CONSULTATION 12:00:00 AM ([facility] EDT [facility]) NM Lung Scan Perfusion NM 10/23/2019 [facility] Lung Scan Perfusion 11:18:00 AM [facility] yste EDT - 10/23/2019 11:18:00 AM EDT Standard chest X-ray 10/23/2019 [facility] ore (procedure) 05:09:00 AM [facility] EDT - 10/23/2019 05:09:00 AM EDT Electrocardiographic 10/23/2019 [facility] ore procedure (procedure) 04:42:00 AM [facility] EDT - 10/23/2019 06:17:00 AM EDT Culture Bacteria Blood 10/23/2019 [facility] 04:36:58 AM [facility] EDT - 10/23/2019 05:36:11 AM EDT Culture Bacteria Blood 10/23/2019 [facility] janny 04:36:58 AM [facility] EDT - 10/23/2019 05:36:10 AM EDT Sedimentation Rate, 10[facility] Eryth[facility] 04:36:58 AM [facility] EDT - 10/23/2019 05:32:00 AM EDT Lipase, [facility] 04[facility]36[facility]58 AM [facility] EDT - 10/23/2019 05:32:00 AM EDT Alcohol Ethyl, Blood 10/23/2019 [facility] ore 04:36:58 AM [facility] EDT - 10/23/2019 05:32:00 AM EDT Comprehensive Metabolic 10/23/2019 [facility] Panel 04:36:58 AM [facility] EDT - 10/23/2019 05:32:00 AM EDT CBC w/Auto Differential- 10/23/2019 [facility] NR/SECC Only 04:36:58 AM [facility] EDT - 10/23/2019 05:32:00 AM EDT TRANS CARE MGMT 14 DAY TRANS CARE MGMT 14 10/16/2019 [facility] DISCH DAY DISCH 12:00:00 AM ([facility]) CHRON CARE MGMT SRVC 20 MIN CHRON CARE MGMT 10/16/2019 [facility] SRVC 20 MIN 12:00:00 AM ([facility]) SUBSEQUENT HOSPITAL CARE SUBSEQUENT HOSPITAL 09/27/2019 [facility]EXT[facility] CARE 12:00:00 AM ([facility]) INITIAL HOSPITAL CARE INITIAL HOSPITAL 09/24/2019 NE XTGEN CARE 12:00:00 AM ([facility]) TRANS CARE MGMT 7 DAY DISCH TRANS CARE MGMT 7 09/11/2019 [facility] DAY DISCH 12:00:00 AM ([facility]) SUBSEQUENT HOSPITAL CARE SUBSEQUENT HOSPITAL 09/04/2019 [facility] CARE 12:00:00 AM ([facility]) EGD DIAGNOSTIC BRUSH WASH EGD DIAGNOSTIC 09/04/2019 [facility] BRUSH WASH 12:00:00 AM ([facility]) HOSPITAL DISCHARGE DAY HOSPITAL DISCHARGE 08/29/2019 [facility] DAY 12:00:00 AM ([facility]) SUBSEQUENT HOSPITAL CARE SUBSEQUENT HOSPITAL 08/28/2019 [facility] CARE 12:00:00 AM ([facility]) COMPLETE CBC W/AUTO DIFF COMPLETE CBC W/AUTO 08/14/2019 [facility] WBC DIFF WBC 12:00:00 AM ([facility]) ASSAY THYROID STIM HORMONE ASSAY THYROID STIM 08/14/2019 [facility] HORMONE 12:00:00 AM ([facility]) COMPREHEN METABOLIC PANEL COMPREHEN METABOLIC 08/14/2019 [facility] PANEL 12:00:00 AM ([facility]) ASSAY OF FREE THYROXINE ASSAY OF FREE 08/14/2019 NEX TG[facility] THYROXINE 12:00:00 AM ([facility]) ASSAY OF PSA TOTAL ASSAY OF PSA TOTAL 08/14/2019 NEX TGEN 12:00:00 AM ([facility]) IRON BINDING TEST IRON BINDING TEST 08/14/2019 NEXTG EN 12:00:00 AM ([facility]) ASSAY OF FOLIC ACID SERUM ASSAY OF FOLIC ACID 08/14/2019 [facility] SERUM 12:00:00 AM ([facility]) ASSAY OF FERRITIN ASSAY OF FERRITIN 08/14/2019 NEXTG EN 12:00:00 AM ([facility]) VITAMIN B-12 VITAMIN B-12 08/14/2019 NEXTGEN 12:00:00 AM ([facility]) VITAMIN D 25 HYDROXY VITAMIN D 25 08/14/2019 [facility] HYDROXY 12:00:00 AM ([facility]) UR ALBUMIN QUANTITATIVE UR ALBUMIN 08/14/2019 NEXT GEN QUANTITATIVE 12:00:00 AM ([facility]) URINALYSIS AUTO W/SCOPE URINALYSIS AUTO 08/14/2019 N EXTGEN W/SCOPE 12:00:00 AM ([facility]) LIPID PANEL LIPID PANEL 08/14/2019 NEXTGEN 12:00:00 AM ([facility]) ROUTINE VENIPUNCTURE ROUTINE 08/14/2019 [facility] VENIPUNCTURE 12:00:00 AM ([facility]) PREV VISIT EST AGE 40-64 PREV VISIT EST AGE 0508/14/2019 [facility] 40-64 12:00:00 AM ([facility]) EGD CONTROL BLEEDING ANY EGD CONTROL 08/11/2019 NEX TGEN BLEEDING ANY 12:00:00 AM ([facility]) ERCP REMOVE DUCT CALCULI ERCP REMOVE DUCT 08/05/2019 [facility] CALCULI 12:00:00 AM ([facility]) INITIAL HOSPITAL CARE INITIAL HOSPITAL 07/28/2019 NE XTGEN CARE 12:00:00 AM ([facility]) INPATIENT CONSULTATION INPATIENT 06/05/2019 NEXTG EN CONSULTATION 12:00:00 AM ([facility] EST [facility]) Electrocardiographic 06/04/2019 [place] procedure (procedure) 12:00:00 AM Hospit al EST Physical therapy procedure 02/09/2019 [place] (regime/therapy) 12:00:00 AM Hospital EDT Diagnostic radiography of 02/08/2019 [place] abdomen (procedure) 12:00:00 AM Hospital EDT Physical therapy procedure 02/06/2019 [place] (regime/therapy) 12:00:00 AM Hospital EDT Probe Cover With Gel 48 In. 02/05/2019 [place] 12:00:00 AM Hospital EDT PowerGlide Pro 18G x 10CM 02/05/2019 [place] 12:00:00 AM Hospital EDT Diagnostic radiography of 02/04/2019 [place] abdomen (procedure) 12:00:00 AM Hospital EDT Plain chest X-ray 02/02/2019 [place] (procedure) 12:00:00 AM Hospital EDT Electrocardiographic 02/01/2019 [place] procedure (procedure) 12:00:00 AM Hospit al EDT Diagnostic radiography of 01/31/2019 [place] abdomen (procedure) 12:00:00 AM Hospital EDT Electrocardiographic 01/29/2019 [place] procedure (procedure) 12:00:00 AM Hospit al EDT Computed tomography of 01/09/2019 [place] abdominal vascular 12:00:00 AM Hospital structures (procedure) EDT Computed tomography of 01/09/2019 [place] abdominal vascular 12:00:00 AM Hospital structures (procedure) EDT Physical therapy procedure 01/08/2019 [place] (regime/therapy) 12:00:00 AM Hospital EDT Physical therapy procedure 01/08/2019 [place] (regime/therapy) 12:00:00 AM Hospital EDT Oxygen therapy (procedure) 01/06/2019 [place] 12:00:00 AM Hospital EDT DETACHMENT AT RIGHT LOWER 01/06/2019 [place] LEG, HIGH, OPEN APPROACH 12:00:00 AM Hos pital EDT TRANSFUSE NONAUT RED BLOOD 01/06/2019 [place] CELLS IN PERIPH VEIN, PERC 12:00:00 AM H ospital EDT Oxygen therapy (procedure) 01/06/2019 [place] 12:00:00 AM Hospital EDT Physical therapy procedure 01/04/2019 [place] (regime/therapy) 12:00:00 AM Hospital EDT Physical therapy procedure 01/04/2019 [place] (regime/therapy) 12:00:00 AM Hospital EDT Ultrasonography of abdomen 12/31/2018 [place] (procedure) 12:00:00 AM Hospital EDT Ultrasonography of abdomen 12/31/2018 [place] (procedure) 12:00:00 AM Hospital EDT Plain chest X-ray 12/29/2018 [place] (procedure) 12:00:00 AM Hospital EDT Plain chest X-ray 12/29/2018 [place] (procedure) 12:00:00 AM Hospital EDT INSERTION OF INFUSION 12/29/2018 [place] DEVICE INTO R ATRIUM, PERC 12:00:00 AM H ospital APPROACH EDT EXCISION OF LOWER 12/29/2018 [place] ESOPHAGUS, ENDO, DIAGN 12:00:00 AM [facility]pi [facility] EDT EXCISION OF DUODENUM, ENDO, 12/29/2018 [place] DIAGN 12:00:00 AM Hospital EDT Plain chest [...] Probe Cover With Gel 48 In. 12/24/2018 [place] 12:00:00 AM Hospital EDT Ultrasound scan of upper 12/24/2018 [place] limb vessels (procedure) 12:00:00 AM Hos pital EDT PowerGlide ST 18G x 10CM 12/24/2018 [place] 12:00:00 AM Hospital EDT Probe Cover With Gel 48 In. 12/24/2018 [place] 12:00:00 AM Hospital EDT Ultrasound scan of upper 12/24/2018 [place] limb vessels (procedure) 12:00:00 AM Hos pital EDT PowerGlide ST 18G x 10CM 12/24/2018 [place] 12:00:00 AM Hospital EDT Physical therapy procedure 12/23/2018 [place] (regime/therapy) 12:00:00 AM Hospital EDT Physical therapy procedure 12/23/2018 [place] (regime/therapy) 12:00:00 AM Hospital EDT Echocardiography 12/22/2018 [place] (procedure) 12:00:00 AM Hospital EDT Plain chest X-ray 12/22/2018 [place] (procedure) 12:00:00 AM Hospital EDT Echocardiography 12/22/2018 [place] (procedure) 12:00:00 AM Hospital EDT Plain chest X-ray 12/22/2018 [place] (procedure) 12:00:00 AM Hospital EDT DRAINAGE OF RIGHT LOWER LEG 12/21/2018 [place] MUSCLE, OPEN APPROACH 12:00:00 AM Hospit al [...] ST 18G x 8CM 12/13/2018 [place] 12:00:00 AM Hospital EDT PowerGlide ST 18G x 8CM 12/13/2018 [place] 12:00:00 AM Hospital EDT Doppler ultrasound of 12/06/2018 [place] vessels of both lower 12:00:00 AM Hospit [...] AM Hospital EDT Doppler ultrasound of 12/06/2018 [place] vessels of both lower 12:00:00 AM Hospit [...] Hospital EDT Results ID Date Data Source [id number] 01/07/2020 05:37:00 AM EDT [facility] Name Value Range Interpretation Description Data Sup porting Code Source(s) Document(s ) SARS [facility] coronavirus 2 RNA This lab was ordered by [facility] and reported by [facility]. ID Date Data Source [id number] 12/04/2019 10:30:00 PM EDT [facility] Name Value Range Interpretation Description Data Sup porting Code Source(s) Document(s ) SARS [facility] coronavirus 2 RNA This lab was ordered by [facility] and reported by [facility]. ID Date Data Source [id number] 11/10/2019 06:03:00 PM EDT [facility] Name Value Range Interpretation Description Data Sup porting Code Source(s) Document(s ) SARS [facility] coronavirus 2 RNA This lab was ordered by [facility] and reported by [facility]. ID Date Data Source [id number] 11/07/2019 01:25:00 PM EDT [facility] Name Value Range Interpretation Description Data Sup porting Code Source(s) Document(s ) SARS [facility] coronavirus 2 RNA This lab was ordered by [facility] and reported by [facility]. ID Date Data Source [id number] 10/27/2019 04:47:00 PM EDT [facility] Name Value Range Interpretation Description Data Sup porting Code Source(s) Document(s ) [address] [facility] Interpretation Unspecified Specimen Qualitative MEG Probe Detection This lab was ordered by [facility] and reported by [facility]. ID Date Data Source [id number] 10/23/2019 07:21:33 PM EDT [facility] [...] th e patient. ID Date Data Source [id number] 10/23/2019 07:21:33 PM EDT [facility] [...] / 6:19 AM ID Date Data Source [id number] 10/23/2019 07:21:33 PM EDT [facility] Name Value Range Interpretation Description Data Sup porting Code Source(s) Document(s ) 17333-3 NEGATIVE Testing Normal (applies COVID-19.. [facility] [...] Range: NEGATIVE . ID Date Data Source [id number] 10/23/2019 07:21:33 PM EDT [facility] [...] Health results) System ID Date Data Source [id number] 10/23/2019 07:21:33 PM EDT [facility] System [...] Alkaline [facility] phosphatase {IU/L} to non-numeric Phosphatase, [facility] isoenzymes results) Serum System [Enzymatic activity/volume] [...] urine test abnormalities ID Date Data Source [id number] 10/23/2019 07:21:33 PM EDT [facility] [...] Heart = 3.0-4.5 ID Date Data Source [id number] 10/23/2019 07:21:33 PM EDT [facility] Name Value Range Interpretation Description Data Sup porting Code Source(s) Document(s ) aPTT in Blood 29.3 Normal (applies Activated [facility] by Coagulation {Seconds to non-numeric Partial Health assay } results) Thromboplastin System Time ID Date Data Source [id number] 10/23/2019 11:18:00 AM EDT [facility] Nuclear Medicine Examination: Lung Perfu moisés scan [...] [place], at 11:54 EDTTel , Service support ,[phone] Name Value Range Interpretation Code Description Data Jackie rce(s) Supporting Document(s ) ID Date Data Source [id number] 10/23/2019 05:32:00 AM EDT [facility] Name Value Range Interpretation Code Description Data [facility] rce(s) Supporting Document(s ) COVID-19.. [facility] This lab was ordered by [facility] and reported by [facility]. ID Date Data Source [id number] 10/23/2019 05:09:00 AM EDT [facility] HISTORY: Fever;EXAMINATION/TECHNIQUE:XR Chest 1 View:COMPARISON: None FINDINGS:LINES/DEVICES:None.LUNG S:No airspace consolidation.Unremarkable inte rstitium.No effusion.Nopneumothorax.MEDIASTINUM: No cardiomegaly.MUSCULOSKELETAL: No acute osseousfinding.IMPRESSION:No evidence of acute cardiopulmonary process. ElectronicallySigned by Clemente Mays MD on 10/23/2019 at 0602 Reported and signed by: Clemente Mays MDEnvision Ph ysician ServicesSHCR DR CLEMENTE MAYS [place] [phone]:Ronnell Mays MD at 6:02 EDTTel , Service support [phone] Name Value Range Interpretation Code Description Data Jackie rce(s) Supporting Document(s ) ID Date Data Source [id number] 10/17/2019 06:30:00 PM EDT [facility] Name Value Range Interpretation Description Data Sup porting Code Source(s) Document(s ) SARS [facility] coronavirus 2 RNA This lab was ordered by [facility] and reported by [facility]. ID Date Data Source [id number] 10/11/2019 05:04:00 PM EDT [facility] Name Value Range Interpretation Description Data Sup porting Code Source(s) Document(s ) SARS [facility] coronavirus 2 RNA This lab was ordered by [facility] and reported by [facility]. ID Date Data Source [id number] 10/11/2019 06:29:00 AM EDT [facility] Name Value Range Interpretation Description Data Sup porting Code Source(s) Document(s ) SARS [facility] coronavirus 2 RNA This lab was ordered by [facility] and reported by [facility]. ID Date Data Source [id number] 10/01/2019 09:30:00 PM EDT [facility] Name Value Range Interpretation Description Data Sup porting Code Source(s) Document(s ) SARS [facility] coronavirus 2 RNA This lab was ordered by [facility] and reported by [facility]. ID Date Data Source [id number] 10/01/2019 12:06:00 PM EDT [facility] Name Value Range Interpretation Description Data Sup porting Code Source(s) Document(s ) SARS [facility] coronavirus 2 RNA This lab was ordered by [facility] and reported by [facility]. ID Date Data Source [id number] 09/24/2019 03:15:00 AM EDT [facility] Name Value Range Interpretation Description Data Sup porting Code Source(s) Document(s ) 2019 Novel [facility] Coronavirus RNA Interpretation Unspecified Specimen Qualitative MEG Probe Detection This lab was ordered by [facility] and reported by [facility]. ID Date Data Source [id number] 09/03/2019 02:51:00 AM EDT [facility] Name Value Range Interpretation Code Description Data Jackie rce(s) Supporting Document(s ) SARS-CoV-2 [facility] N gene Resp Ql MEG+probe This lab was ordered by [facility] and reported by [facility]. ID Date Data Source [id number] 08/26/2019 02:01:00 AM EDT [facility] Name Value Range Interpretation Description Data Sup porting Code Source(s) Document(s ) 2019 Novel [facility] Coronavirus RNA Interpretation Unspecified Specimen Qualitative MEG Probe Detection This lab was ordered by [facility] and reported by [facility]. ID Date Data Source [id number] 08/11/2019 03:01:00 AM EDT [facility] Name Value Range Interpretation Description Data Sup porting Code Source(s) Document(s ) 2019 Novel [facility] Coronavirus RNA Interpretation Unspecified Specimen Qualitative MEG Probe Detection This lab was ordered by [facility] and reported by [facility]. ID Date Data Source [id number] 08/11/2019 03:01:00 AM EDT [facility] Name Value Range Interpretation Description Data Sup porting Code Source(s) Document(s ) 2019 Novel [facility] Coronavirus RNA Interpretation Unspecified Specimen Qualitative MEG Probe Detection This lab was ordered by [facility] and reported by [facility]. ID Date Data Source [id number] 06/25/2019 07:34:00 AM EDT [facility] [facility] Added by Discern Rule GLB_ADD_GFR_BMP Name Value Range Interpretation Code Description Data Jackie rce(s) Supporting Document(s ) eGFR-AA 62 >=60 NO [facility] mL/min/1.[address] [place] [address] The CKD-EPI equation for non- Nini rican [...] Mild decrease* G3a 45-59 Mild to moderate [id number] 30-44 Moderate to s evere decreaseG4 15-29 Severe decreaseG5 14 or less Kidney fa ilure eGFR-MEG 51 mL/min/1.73m2 >=60 LO [facility] The CKD-EPI equation for non- Nini [...] Mild decrease* G3a 45-59 Mild to moderate [id number] 30-44 Moderate to s evere decreaseG4 15-29 Severe decreaseG5 14 or less Kidney fa ilure ID Date Data Source [id number] 06/25/2019 07:34:00 AM EDT [facility] Name Value Range Interpretation Description Data Sup porting Code Source(s) Document(s ) Glucose Lvl 172 65-99 [place] mg/dL [facility] BUN 25.0 7.0-21.0 [place] mg/dL [facility] Creatinine 1.45 0.70-1.2 [place] mg/dL 0 [facility] BUN/Creat 17.2 7.0-29.0 [place] Ratio ratio [facility] Sodium Lvl 136 136-146 [place] mmol/L [facility] Potassium Lvl 3.1 3.5-5.1 [place] mmol/L [facility] Chloride 101 98-109 [place] mmol/L [facility] CO2 27 17-33 [place] mmol/L [facility] AGAP 8 5-15 NO [facility] Calcium Lvl 8.5 8.3-10.2 [place] mg/dL [facility] ID Date Data Source [id number] 06/25/2019 07:03:00 AM EDT [facility] Name Value Range Interpretation Description Data Sup porting Code Source(s) Document(s ) Neut Auto 60.7 % 40.0-70.0 [facility] Lymph Auto 29.6 % 22.0-44.0 [facility] [place] Auto 9.2 % 4.0-11.0 [facility] Eos Auto 0.2 % 0.0-8.0 NO [facility] Baso Auto 0.3 % 0.0-3.0 NO [facility] Neut 5.2 1.8-7.7 NO [place] Absolute x10(3)/[facility] Lymph 2.5 1.0-4.8 [place] Absolute x10(3)/[facility] [place] 0.8 0.2-1.2 [place] Absolute x10(3)/[facility] Eos Absolute 0.0 0.0-0.9 [place] x10(3)/[facility] Baso 0.0 0.0-0.3 [place] Absolute x10(3)/[facility] ID Date Data Source [id number] 06/25/2019 07:03:00 AM EDT [facility] Name Value Range Interpretation Description Data Sup porting Code Source(s) Document(s ) WBC 8.5 4.5-11.0 [place] x10(3)/[facility] RBC 3.71 4.50-5.90 [place] x10(6[place] Hgb 9.1 gm/dL 13.5-17.5 [facility] Hct 28.2 % 41.0-53.0 [facility] MCV 76 fL 80-100 [facility] MCH 24.5 pg 26.0-34.0 [facility] MCHC 32.2 31.0-37.0 [place] gm/dL [facility] RDW 14.8 % 11.5-14.5 Critical access hospital Platelet 379 150-350 [facility] x10(3)/[facility] MPV 7.1 fL 7.4-10.4 [facility] ID Date Data Source [id number] 06/24/2019 09:35:00 AM EDT [facility] Name Value Range Interpretation Description Data Sup porting Code Source(s) Document(s ) Phosphorus 4.3 mg/dL 2.5-5.0 [facility] ID Date Data Source [id number] 06/24/2019 09:35:00 AM EDT [facility] patient refused blood work.CIELO Burris was notified.As per patient request, RN to draw blood from port .06/24/2019 08:07:16 EDT, ENEmmie Name Value Range Interpretation Description Data Sup porting Code Source(s) Document(s ) Magnesium 1.9 mg/dL 1.6-2.5 NO [facility] ID Date Data Source [id number] 06/24/2019 09:35:00 AM EDT [facility] Added by Discern Rule GLB_ADD_GFR_CMP Name Value Range Interpretation Code Description Data Jackie rce(s) Supporting Document(s ) eGFR-AA 38 >=60 [facility] mL/min/1.[address] The CKD-EPI equation for non- [facility] rican individuals is used to [...] Mild decrease* G3a 45-59 Mild to moderate [id number] 30-44 Moderate to s evere decreaseG4 15-29 Severe decreaseG5 14 or less Kidney fa ilure eGFR-MEG 31 mL/min/1.73m2 >=60 [facility] The CKD-EPI equation for non- Nini [...] Mild decrease* G3a 45-59 Mild to moderate [id number] 30-44 Moderate to s evere decreaseG4 15-29 Severe decreaseG5 14 or less Kidney fa ilure ID Date Data Source [id number] 06/24/2019 09:35:00 AM EDT [facility] patient refused blood work .Cielo Burris was notified.As per patient request , Rn to draqw blood from port.06/24/2019 08:05:11 EDT, ENK Name Value Range Interpretation Description Data Sup porting Code Source(s) Document(s ) Glucose Lvl 151 65-99 [place] mg/dL [facility] BUN 29.0 7.0-21.0 [place] mg/dL [facility] Creatinine 2.20 0.70-1.2 [place] mg/dL 0 [facility] BUN/Creat 13.2 7.0-29.0 [place] Ratio ratio [facility] Sodium Lvl 137 136-146 [place] mmol/L [facility] Potassium Lvl 3.5 3.5-5.1 [place] mmol/L [facility] Chloride 100 98-109 [place] mmol/L [facility] CO2 26 17-33 [place] mmol/L [facility] AGAP 11 5-15 [facility] Calcium Lvl 8.3 8.3-10.2 [place] mg/dL [facility] Total Protein 7.2 6.0-8.3 [place] gm/dL [facility] Albumin Lvl 3.0 3.7-5.3 [place] gm/dL [facility] Glob 4.2 2.0-4.5 [place] gm/dL [facility] A/G Ratio 0.7 1.0-2.2 [place] ratio [facility] Bili Total 0.3 0.4-1.1 [place] mg/dL [facility] Alk Phos 106 IU/L 30-125 [facility] AST 11 IU/L 10-35 NO [facility] ALT 11 IU/L 8-40 NO [facility] ID Date Data Source [id number] 06/24/2019 09:15:00 AM EDT [facility] Name Value Range Interpretation Description Data Sup porting Code Source(s) Document(s ) Neut Auto 65.3 % 40.0-70.0 NO [facility] Lymph Auto 25.1 % 22.0-44.0 NO [facility] [place] Auto 9.2 % 4.0-11.0 NO [facility] Eos Auto 0.2 % 0.0-8.0 NO [facility] Baso Auto 0.2 % 0.0-3.0 NO [facility] Neut 6.0 1.8-7.7 NO [place] Absolute x10(3)/[facility] Lymph 2.3 1.0-4.8 NO [place] Absolute x10(3)/[facility] [place] 0.8 0.2-1.2 NO [place] Absolute x10(3)/[facility] Eos Absolute 0.0 0.0-0.9 [place] x10(3)/[facility] Baso 0.0 0.0-0.3 NO [place] Absolute x10(3)/[facility] ID Date Data Source [id number] 06/24/2019 09:15:00 AM EDT [facility] patient refused blood work . Cielo Burris no felipe.As per PAtient request , Rn has to draw patient from port .06/24/2019 08:03: 02 EDT, ENK Name Value Range Interpretation Description Data Sup porting Code Source(s) Document(s ) WBC 9.2 4.5-11.0 [place] x10(3)/[facility] RBC 3.60 4.50-5.90 [place] x10(6)/[facility] Hgb 9.0 gm/dL 13.5-17.5 [facility] Hct 27.6 % 41.0-53.0 [facility] MCV 77 fL 80-100 [facility] MCH 24.9 pg 26.0-34.0 [facility] MCHC 32.5 31.0-37.0 [facility] gm/dL [facility] RDW 15.1 % 11.5-14.5 Critical access hospital Platelet 395 150-350 [facility] x10(3)/[facility] MPV 7.3 fL 7.4-10.4 [facility] ID Date Data Source [id number] 06/23/2019 04:40:00 PM EDT [facility] Patient Name: KARSTEN GIBBS EMRN: [id number] Interventional RadiologyACCESSION EXAM DATE/TIME PROCEDURE ORDERING PROVIDER [id number] 06/23/2019 16:01 EDT IR Ins Picc Wo [...] subcu taneous infiltrationAccess: Right brachial veinDevice: 4 Estonian by 35 cmClosure: Dr elias sterile dressingContrast: [...] prepped and draped. All elements of [facility] sterile barrier technique including cap, mask, sterile [...] time of puncture, and sent to the [facility]. The catheter was tested, demonstrating good [...] Supporting Document(s ) ID Date Data Source [id number] 06/23/2019 05:05:00 AM EDT [facility] Patient Name: KARSTEN GIBBS EMRN: [id number] Computed TomographyACCESSION EXAM DATE/TIME PROCEDURE ORDERING PROVIDER [id number] 06/23/2019 04:[address] Abdomen Pelvis Myra [...] Supporting Document(s ) ID Date Data Source [id number] 06/23/2019 04:12:00 AM EDT [facility] Name Value Range Interpretation Description Data Sup porting Code Source(s) Document(s ) Segs 89 % 40-70 Critical access hospital Band 0 % 0-6 NO [facility] Neutr 16.8 1.8-7.7 [facility] Absolute x10(3)/[facility] Lymph 8 % 22-44 [facility] Monocyte 3 % 4-11 [facility] Eos 0 % 0-8 NO [facility] Basophil 0 % 0-3 [facility] RBC Morph Normocyt AB [facility] Anisocyte NO [facility] Platelet NO [facility] NO [facility] ID Date Data Source [id number] 06/23/2019 03:38:00 AM EDT [facility] Added by Discern Rule GLB_ADD_GFR_CMP Name Value Range Interpretation Code Description Data Jackie rce(s) Supporting Document(s ) eGFR-AA 74 >=60 [facility] mL/min/1.[address] [place] [address] The CKD-EPI equation for non- Nini rican [...] Mild decrease* G3a 45-59 Mild to moderate [id number] 30-44 Moderate to s evere decreaseG4 15-29 Severe decreaseG5 14 or less Kidney fa ilure eGFR-MEG 61 mL/min/1.73m2 >=60 NO [facility] The CKD-EPI equation for non- Nini [...] Mild decrease* G3a 45-59 Mild to moderate [id number] 30-44 Moderate to s evere decreaseG4 15-29 Severe decreaseG5 14 or less Kidney fa ilure ID Date Data Source [id number] 06/23/2019 03:38:00 AM EDT [facility] Name Value Range Interpretation Code Description Data Jackie rce(s) Supporting Document(s ) Lipase Lvl 19 IU/L 10-59 NO [facility] ID Date Data Source [id number] 06/23/2019 03:38:00 AM EDT [facility] Name Value Range Interpretation Description Data Sup porting Code Source(s) Document(s ) Glucose Lvl 202 65-99 [place] mg/dL [facility] BUN 15.0 7.0-21.0 [place] mg/dL [facility] Creatinine 1.24 0.70-1.2 [place] mg/dL 0 [facility] BUN/Creat 12.1 7.0-29.0 [place] Ratio ratio [facility] Sodium Lvl 132 136-146 [place] mmol/L [facility] Potassium Lvl 4.1 3.5-5.1 [place] mmol/L [facility] Chloride 98 98-109 [place] mmol/L [facility] CO2 21 17-33 [place] mmol/L [facility] AGAP 13 5-15 NO [facility] Calcium Lvl 8.8 8.3-10.2 [place] mg/dL [facility] Total Protein 8.1 6.0-8.3 [place] gm/dL [facility] Albumin Lvl 3.1 3.7-5.3 [place] gm/dL [facility] Glob 5.0 2.0-4.5 [place] gm/dL [facility] A/G Ratio 0.6 1.0-2.2 [facility] ratio [facility] Bili Total 1.1 0.4-1.1 [place] mg/dL [facility] Alk Phos 128 IU/L 30-125 Critical access hospital AST 28 IU/L 10-35 NO [facility] ALT 15 IU/L 8-40 NO [facility] ID Date Data Source [id number] 06/23/2019 03:35:00 AM EDT [facility] Name Value Range Interpretation Description Data Sup porting Code Source(s) Document(s ) WBC 18.9 4.5-11.0 [place] x10(3)/[facility] RBC 4.01 4.50-5.90 [place] x10(6)/[facility] Hgb 9.9 gm/dL 13.5-17.5 [facility] Hct 30.2 % 41.0-53.0 [facility] MCV 76 fL 80-100 [facility] MCH 24.8 pg 26.0-34.0 [facility] MCHC 32.8 31.0-37.0 [place] gm/dL [facility] RDW 15.1 % 11.5-14.5 Critical access hospital Platelet 404 150-350 [facility] x10(3)/[facility] MPV 8.7 fL 7.4-10.4 NO [facility] ID Date Data Source [id number] 06/23/2019 03:16:00 AM EDT [facility] Name Value Range Interpretation Description Data Sup porting Code Source(s) Document(s ) Troponin- 0.01 0.02-0.05 [place] I ng/mL [facility] ID Date Data Source [id number] 06/09/2019 05:56:00 PM EST [facility] Added by Discern Rule GLB_ADD_GFR_BMP Name Value Range Interpretation Code Description Data Jackie rce(s) Supporting Document(s ) eGFR-AA 74 >=60 [facility] mL/min/[address] The CKD-EPI equation for non- Nini [...] Mild decrease* G3a 45-59 Mild to moderate [id number] 30-44 Moderate to s evere decreaseG4 15-29 Severe decreaseG5 14 or less Kidney fa ilure eGFR-MEG 61 mL/min/1.73m2 >=60 Count includes the [facility] The CKD-EPI equation for non- Nini [...] Mild decrease* G3a 45-59 Mild to moderate elefuxtsP2h 30-44 Moderate to s evere decreaseG4 15-29 Severe decreaseG5 14 or less Kidney fa ilure ID Date Data Source [id number] 06/09/2019 05:56:00 PM EST [facility] Name Value Range Interpretation Description Data Sup porting Code Source(s) Document(s ) Magnesium 2.0 mg/dL 1.6-2.5 NO [facility] ID Date Data Source [id number] 06/09/2019 05:56:00 PM EST [facility] PATIENT ASKED TO COME BACK IN 30 MINS BRIDGET 06/09/2019 15:47:54 EST Name Value Range Interpretation Description Data Sup porting Code Source(s) Document(s ) Glucose Lvl 218 65-99 [place] mg/dL [facility] BUN 19.0 7.0-21.0 [place] mg/dL [facility] Creatinine 1.24 0.70-1.2 [place] mg/dL 0 [facility] BUN/Creat 15.3 7.0-29.0 [place] Ratio ratio [facility] Sodium Lvl 129 136-146 [place] mmol/L [facility] Potassium Lvl 3.7 3.5-5.1 [place] mmol/L [facility] Chloride 99 98-109 [place] mmol/L [facility] CO2 22 17-33 [place] mmol/L [facility] AGAP 8 5-15 [place] [facility] Calcium Lvl 8.0 8.3-10.2 [place] mg/dL [facility] ID Date Data Source [id number] 06/09/2019 09:59:00 PM [facility] Name Value Range Interpretation Description Data Sup porting Code Source(s) Document(s ) U Osmolality 601 50-1200 NO [facility] mOsm/kg [facility] Test performed on the [employer]-Osm ometer using freezing point depression. ID Date Data Source [id number] 06/09/2019 04:24:00 PM [facility] Name Value Range Interpretation Code Description Data Jackie rce(s) Supporting Document(s ) U Sodium 124 mmol/L NA [facility] Normal ranges for Sodium in random urine are diet dependent. U Potassium 27.6 mmol/L NA [facility] Normal ranges for Potassium in random ur ine are diet dependent. U Chloride 133 mmol/L 15-400 NO [facility] Normal ranges for Chloride in random uri ne are diet dependent. ID Date Data Source [id number] 06/09/2019 07:14:00 AM [facility] Name Value Range Interpretation Description Data Sup porting Code Source(s) Document(s ) Magnesium 1.7 mg/dL 1.6-2.5 NO [facility] ID Date Data Source [id number] 06/09/2019 07:14:00 AM [facility] Added by Discern Rule GLB_ADD_GFR_BMP Name Value Range Interpretation Code Description Data Jackie rce(s) Supporting Document(s ) eGFR-AA 84 >=60 NO [facility] mL/min/1.[address] [place] [address] The CKD-EPI equation for non- Nini rican [...] Mild decrease* G3a 45-59 Mild to moderate [id number] 30-44 Moderate to s evere decreaseG4 15-29 Severe decreaseG5 14 or less Kidney fa ilure eGFR-MEG 69 mL/min/1.73m2 >=60 NO [facility] The CKD-EPI equation for non- Nini [...] Mild decrease* G3a 45-59 Mild to moderate xetrjpirU0z 30-44 Moderate to s evere decreaseG4 15-29 Severe decreaseG5 14 or less Kidney fa ilure ID Date Data Source [id number] 06/09/2019 07:14:00 AM EST [facility] Name Value Range Interpretation Description Data Sup porting Code Source(s) Document(s ) Glucose Lvl 150 65-99 [place] mg/dL [facility] BUN 20.0 7.0-21.0 [place] mg/dL [facility] Creatinine 1.11 0.70-1.2 [place] mg/dL 0 [facility] BUN/Creat 18.0 7.0-29.0 [place] Ratio ratio [facility] Sodium Lvl 129 136-146 [place] mmol/L [facility] Potassium Lvl 2.9 3.5-5.1 [place] mmol/L [facility] Chloride 99 98-109 [place] mmol/L [facility] CO2 22 17-33 [place] mmol/L [facility] AGAP 8 5-15 NO [facility] Calcium Lvl 8.3 8.3-10.2 NO [facility] mg/dL [facility] ID Date Data Source [id number] 06/08/2019 08:05:00 AM EST [facility] Added by Discern Rule GLB_ADD_GFR_BMP Name Value Range Interpretation Code Description Data Jackie rce(s) Supporting Document(s ) eGFR-AA 86 >=60 NO [facility] mL/min/1.[address] The CKD-EPI equation for non- Nini [...] Mild decrease* G3a 45-59 Mild to moderate [id number] 30-44 Moderate to s evere decreaseG4 15-29 Severe decreaseG5 14 or less Kidney fa ilure eGFR-MEG 71 mL/min/1.73m2 >=60 NO [facility] The CKD-EPI equation for non- Nini [...] Mild decrease* G3a 45-59 Mild to moderate pwejrobtP6x 30-44 Moderate to s evere decreaseG4 15-29 Severe decreaseG5 14 or less Kidney fa ilure ID Date Data Source [id number] 06/08/2019 08:05:00 AM EST [facility] Name Value Range Interpretation Description Data Sup porting Code Source(s) Document(s ) Glucose Lvl 158 65-99 [place] mg/dL [facility] BUN 21.0 7.0-21.0 [place] mg/dL [facility] Creatinine 1.09 0.70-1.2 [place] mg/dL 0 [facility] BUN/Creat 19.3 7.0-29.0 [place] Ratio ratio [facility] Sodium Lvl 131 136-146 [facility] mmol/L [facility] Potassium Lvl 3.0 3.5-5.1 LO [facility] mmol/L [facility] Chloride 100 98-109 [place] mmol/L [facility] CO2 23 17-33 [place] mmol/L [facility] AGAP 8 5-15 NO [facility] Calcium Lvl 8.5 8.3-10.2 [place] mg/dL [facility] ID Date Data Source [id number] 06/07/2019 08:50:00 AM EST [facility] Name Value Range Interpretation Description Data Sup porting Code Source(s) Document(s ) Neut Auto 67.3 % 40.0-70.0 NO [facility] Lymph Auto 21.9 % 22.0-44.0 LO [facility] [place] Auto 10.1 % 4.0-11.0 NO [facility] Eos Auto 0.3 % 0.0-8.0 NO [facility] Baso Auto 0.4 % 0.0-3.0 NO [facility] Neut 6.2 1.8-7.7 [place] Absolute x10(3)/[facility] Lymph 2.0 1.0-4.8 [place] Absolute x10(3)/[facility] [place] 0.9 0.2-1.2 NO [place] Absolute x10(3)/[facility] Eos Absolute 0.0 0.0-0.9 [place] x10(3)/[facility] Baso 0.0 0.0-0.3 [place] Absolute x10(3)/[facility] ID Date Data Source [id number] 06/07/2019 08:50:00 AM EST [facility] Name Value Range Interpretation Description Data Sup porting Code Source(s) Document(s ) WBC 9.1 4.5-11.0 [place] x10(3)/[facility] RBC 4.07 4.50-5.90 [place] x10(6)/[facility] Hgb 10.2 13.5-17.5 [place] gm/dL [facility] Hct 31.2 % 41.0-53.0 [facility] MCV 77 fL 80-100 [facility] MCH 25.1 pg 26.0-34.0 [facility] MCHC 32.8 31.0-37.0 [place] gm/dL [facility] RDW 14.7 % 11.5-14.5 Critical access hospital Platelet 283 150-350 [place] x10(3)/[facility] MPV 7.9 fL 7.4-10.4 [facility] ID Date Data Source [id number] 06/07/2019 08:02:00 AM [facility] Added by Discern Rule GLB_ADD_GFR_RENAL Name Value Range Interpretation Code Description Data Jackie rce(s) Supporting Document(s ) eGFR-AA >90 >=60 NO [facility] mL/min/[address] [place] [address] The CKD-EPI equation for non- Nini rican [...] Mild decrease* G3a 45-59 Mild to moderate gfuzmrpeG6z 30-44 Moderate to s evere decreaseG4 15-29 Severe decreaseG5 14 or less Kidney fa ilure eGFR-MEG 77 mL/min/1.73m2 >=60 NO [facility] The CKD-EPI equation for non- Nini [...] Mild decrease* G3a 45-59 Mild to moderate [id number] 30-44 Moderate to s evere decreaseG4 15-29 Severe decreaseG5 14 or less Kidney fa [facility] ID Date Data Source [id number] 06/07/2019 08:02:00 AM EST [facility] Name Value Range Interpretation Description Data Sup porting Code Source(s) Document(s ) Albumin Lvl 2.8 3.7-5.3 [place] gm/dL [facility] Calcium Lvl 8.2 8.3-10.2 [place] mg/dL [facility] CO2 23 17-33 [place] mmol/L [facility] Chloride 103 98-109 [place] mmol/L [facility] Creatinine 1.01 0.70-1.2 [place] mg/dL 0 [facility] Glucose Lvl 162 65-99 [place] mg/dL [facility] Phosphorus 2.3 2.5-5.0 [place] mg/dL [facility] BUN 19.0 7.0-21.0 [place] mg/dL [facility] Sodium Lvl 133 136-146 [place] mmol/L [facility] Potassium Lvl 3.1 3.5-5.1 [place] mmol/L [facility] BUN/Creat 18.8 7.0-29.0 [place] Ratio ratio [facility] ID Date Data Source [id number] 06/07/2019 08:02:00 AM [facility] Name Value Range Interpretation Description Data Sup porting Code Source(s) Document(s ) Magnesium 1.8 mg/dL 1.6-2.5 [place] [facility] ID Date Data Source [id number] 06/06/2019 01:07:00 PM [facility] Patient Name: KARSTEN GIBBS EMRN: [id number] General DiagnosticACCESSION EXAM DATE/TIME PROCEDURE ORDERING PROVIDER [id number] 06/06/2019 13:01 EST XR Abdomen 2 Views [...] Supporting Document(s ) ID Date Data Source [id number] 06/06/2019 09:04:00 AM [facility] Name Value Range Interpretation Description Data Sup porting Code Source(s) Document(s ) Magnesium 2.0 mg/dL 1.6-2.5 [facility] ID Date Data Source [id number] 06/06/2019 09:04:00 AM [facility] Added by Discern Rule GLB_ADD_GFR_CMP Name Value Range Interpretation Code Description Data Jackie rce(s) Supporting Document(s ) eGFR-AA 69 >=60 [facility] mL/min/[address] The CKD-EPI equation for non- [facility] rican individuals is used to [...] Mild decrease* G3a 45-59 Mild to moderate [id number] 30-44 Moderate to s evere decreaseG4 15-29 Severe decreaseG5 14 or less Kidney fa ilure eGFR-MEG 57 mL/min/1.73m2 >=60 [facility] The CKD-EPI equation for non- Nini [...] Mild decrease* G3a 45-59 Mild to moderate [id number] 30-44 Moderate to s evere decreaseG4 15-29 Severe decreaseG5 14 or less Kidney fa ilure ID Date Data Source [id number] 06/06/2019 09:04:00 AM EST [place] Name Value Range Interpretation Description Data Sup porting Code Source(s) Document(s ) Glucose Lvl 149 65-99 [place] mg/dL [facility] BUN 28.0 7.0-21.0 [place] mg/dL [facility] Creatinine 1.32 0.70-1.2 [place] mg/dL 0 [facility] BUN/Creat 21.2 7.0-29.0 [place] Ratio ratio [facility] Sodium Lvl 134 136-146 [place] mmol/L [facility] Potassium Lvl 3.2 3.5-5.1 [place] mmol/L [facility] Chloride 104 98-109 [place] mmol/L [facility] CO2 21 17-33 [place] mmol/L [facility] AGAP 9 5-15 [place] [facility] Calcium Lvl 8.1 8.3-10.2 [place] mg/dL [facility] Total Protein 7.7 6.0-8.3 [place] gm/dL [facility] Albumin Lvl 3.2 3.7-5.3 [place] gm/dL [facility] Glob 4.5 2.0-4.5 [place] gm/dL [facility] A/G Ratio 0.7 1.0-2.2 [place] ratio [facility] Bili Total 0.8 0.4-1.1 [place] mg/dL [facility] Alk Phos 91 IU/L 30-125 NO [facility] AST 13 IU/L 10-35 NO [facility] ALT 13 IU/L 8-40 NO [facility] ID Date Data Source [id number] 06/06/2019 08:43:00 AM EST [facility] Name Value Range Interpretation Description Data Sup porting Code Source(s) Document(s ) Neut Auto 74.4 % 40.0-70.0 Critical [facility] hospital Lymph Auto 16.3 % 22.0-44.0 [facility] [place] Auto 8.5 % 4.0-11.0 [facility] Eos Auto 0.4 % 0.0-8.0 NO [facility] Baso Auto 0.4 % 0.0-3.0 [facility] Neut 7.6 1.8-7.7 NO [place] Absolute x10(3)/[facility] Lymph 1.7 1.0-4.8 NO [place] Absolute x10(3)/[facility] [place] 0.9 0.2-1.2 NO [place] Absolute x10(3)/[facility] Eos Absolute 0.0 0.0-0.9 [place] x10(3)/[facility] Baso 0.0 0.0-0.3 [place] Absolute x10(3)/[facility] ID Date Data Source [id number] 06/06/2019 08:43:00 AM EST [facility] Name Value Range Interpretation Description Data Sup porting Code Source(s) Document(s ) WBC 10.2 4.5-11.0 [place] x10(3)/[facility] RBC 3.90 4.50-5.90 [place] x10(6)/[facility] Hgb 9.6 gm/dL 13.5-17.5 [facility] Hct 30.6 % 41.0-53.0 [facility] MCV 78 fL 80-100 [facility] MCH 24.5 pg 26.0-34.0 [facility] MCHC 31.3 31.0-37.0 NO [facility] gm/dL [facility] RDW 14.8 % 11.5-14.5 Critical access hospital Platelet 296 150-350 NO [facility] x10(3)/[facility] MPV 7.8 fL 7.4-10.4 [facility] ID Date Data Source [id number] 06/05/2019 08:46:00 PM [facility] UA Microscopic added by rubio Baron to an Abnormal Macroscopic Result. Name Value Range Interpretation Description Data Sup porting Code Source(s) Document(s ) UA WBC None Seen AB [facility] UA RBC None Seen AB [facility] UA Bacteria None Seen NO [facility] UA Hyal Cast None Seen AB [facility] UA Fine Gran None Seen [facility] ID Date Data Source [id number] 06/05/2019 08:39:00 PM [facility] Name Value Range Interpretation Description Data Sup porting Code Source(s) Document(s ) UA Color Yellow NO [facility] UA Appear Clear NO [facility] UA pH 5.0-8.0 [facility] UA Spec Grav 1.021 1.005-1.030 [facility] UA Glucose Negative [facility] UA Ketones Negative [facility] UA Urobilinogen 0.2-1.0 [facility] UA Bili Negative [facility] UA Blood Negative AB [facility] UA Protein Negative AB [facility] UA Nitrite Negative NO [facility] UA Leuk Est Negative NO [facility] ID Date Data Source [id number] 06/05/2019 08:39:00 PM EST [facility] Name Value Range Interpretation Description Data Sup porting Code Source(s) Document(s ) U Amph Not Detected NO [facility] Scr [facility] Result created by [employer] rule.Substance of abuse cutoff levels:Amphetamine...................... .....1000 mA/minBarbiturate....................... .....300 mA/minBenzodiazepine.................... .....200 mA/minCannibinoid....................... ......50 mA/minCocaine........................... .....300 mA/minOpiates........................... .....300 mA/minPhencyclidine (PCP).....................25 mA/minMetha done..............................300 mA/minPropoxypene....................... .....300 mA/minPlease note: This is a urine screening test only.Positive results are presumptive and are not confirmed by a secondary method. Unconfirmed screening results are to be used only for medical purposes. U Johanny Scr Not Detected NO [facility] Result created by [employer] rule. U Benzodia Scr Not Detected NO [facility] Result created by Discern rule. U Cannab Scr Not Detected NO [facility] Result created by Discern rule. U Cocaine Scr Not Detected NO [facility] Result created by [employer] rule. U Opiate Scr Not Detected NA [facility] Result created by [employer] rule.This Opia te assay does NOT detect the semi-synthetic opioids Oxycontin, Oxycodone, Percodan, or Percocet. U Phencyclidine Not Detected NO [facility] Result created by Discern rule. U Propoxyphene Not Detected NA [facility] Result created by Discern rule. U Methadone Not Detected NO [facility] Result created by Discern rule. ID Date Data Source [id number] 06/06/2019 12:29:00 PM [facility] Name Value Range Interpretation Description Data Sup porting Code Source(s) Document(s ) Hemoglobin A1C 7.1 % <=5.6 Critical access hospital 5.7-6.4% Pre-diabetes> 6.4% Diagno stic for diabetes(Summarized from [place] [employer] 2018 Standards)This test was performed using the Tabula Hb 9210 Analyzer utilizing [employer]. ID Date Data Source [id number] 06/05/2019 06:50:00 PM [facility] Added by [employer]cern Rule [id number]_ADD_[id number] Name Value Range Interpretation Code Description Data Jackie rce(s) Supporting Document(s ) eGFR-AA 46 >=60 [facility] mL/min/1.[address] [place] [address] The CKD-EPI equation for non- Nini rican [...] Mild decrease* G3a 45-59 Mild to moderate [id number] 30-44 Moderate to s evere decreaseG4 15-29 Severe decreaseG5 14 or less Kidney fa ilure eGFR-MEG 38 mL/min/1.73m2 >=60 LO [facility] The CKD-EPI equation for non- Nini [...] Mild decrease* G3a 45-59 Mild to moderate [id number] 30-44 Moderate to s evere decreaseG4 15-29 Severe decreaseG5 14 or less Kidney fa reji ID Date Data Source [id number] 06/05/2019 06:50:00 PM EST [facility] Name Value Range Interpretation Description Data Sup porting Code Source(s) Document(s ) Glucose Lvl 161 65-99 [place] mg/dL [facility] BUN 36.0 7.0-21.0 [place] mg/dL [facility] Creatinine 1.87 0.70-1.2 [place] mg/dL 0 [facility] BUN/Creat 19.3 7.0-29.0 [place] Ratio ratio [facility] Sodium Lvl 137 136-146 [place] mmol/L [facility] Potassium Lvl 3.5 3.5-5.1 [place] mmol/L [facility] Chloride 108 98-109 [place] mmol/L [facility] CO2 22 17-33 [place] mmol/L [facility] AGAP 7 5-15 NO [facility] Calcium Lvl 8.2 8.3-10.2 [place] mg/dL [facility] ID Date Data Source [id number] 06/05/2019 03:11:00 PM EST [facility] Patient Name: KARSTEN GIBBS EMRN: [id number] UltrasoundACCESSION EXAM DATE/TIME PROCEDURE ORDERING PROVIDER [id number] 14:22 EST [facility] [place], Dequan [...] Supporting Document(s ) ID Date Data Source [id number] 06/05/2019 08:20:00 AM EST [facility] Added by Discern Rule [id number]_ADD_[id number] Name Value Range Interpretation Code Description Data Jackie rce(s) Supporting Document(s ) eGFR-AA [address] >=60 [facility] mL/min/1.[address] [place] [address] The CKD-EPI equation for non- Nini rican [...] Mild decrease* G3a 45-59 Mild to moderate [id number] 30-44 Moderate to s evere decreaseG4 15-29 Severe decreaseG5 14 or less Kidney fa ilure eGFR-MEG 33 mL/min/1.73m2 >=60 [facility] The CKD-EPI equation for non- Nini [...] Mild decrease* G3a 45-59 Mild to moderate asxyyxfrK2y 30-44 Moderate to s evere decreaseG4 15-29 Severe decreaseG5 14 or less Kidney fa ilure ID Date Data Source [id number] 06/05/2019 08:20:00 AM EST [facility] Name Value Range Interpretation Description Data Sup porting Code Source(s) Document(s ) Glucose Lvl 148 65-99 [place] mg/dL [facility] BUN 41.0 7.0-21.0 [place] mg/dL [facility] Creatinine 2.12 0.70-1.2 [place] mg/dL 0 [facility] BUN/Creat 19.3 7.0-29.0 [place] Ratio ratio [facility] Sodium Lvl 137 136-146 [place] mmol/L [facility] Potassium Lvl 3.6 3.5-5.1 [place] mmol/L [facility] Chloride 109 98-109 [place] mmol/L [facility] CO2 22 17-33 [place] mmol/L [facility] AGAP 6 5-15 NO [facility] Calcium Lvl 8.0 8.3-10.2 [place] mg/dL [facility] ID Date Data Source [id number] 06/05/2019 08:08:00 AM EST [facility] Name Value Range Interpretation Description Data Sup porting Code Source(s) Document(s ) Neut Auto 74.8 % 40.0-70.0 Critical access hospital Lymph Auto 14.2 % 22.0-44.0 LO [facility] [place] Auto 10.5 % 4.0-11.0 NO [facility] Eos Auto 0.1 % 0.0-8.0 NO [facility] Baso Auto 0.4 % 0.0-3.0 NO [facility] Neut 8.1 1.8-7.7 [place] Absolute x10(3)/[facility] Lymph 1.5 1.0-4.8 NO [place] Absolute x10(3)/[facility] [place] 1.1 0.2-1.2 NO [place] Absolute x10(3)/[facility] Eos Absolute 0.0 0.0-0.9 [place] x10(3)/[facility] Baso 0.0 0.0-0.3 [place] Absolute x10(3)/[facility] ID Date Data Source [id number] 06/05/2019 08:08:00 AM EST [facility] Name Value Range Interpretation Description Data Sup porting Code Source(s) Document(s ) WBC 10.8 4.5-11.0 [place] x10(3)/[facility] RBC 3.40 4.50-5.90 [facility] Hgb 8.5 gm/dL 13.5-17.5 [facility] Hct 26.3 % 41.0-53.0 [facility] MCV 77 fL 80-100 [facility] MCH 24.9 pg 26.0-34.0 [facility] MCHC 32.2 31.0-37.0 [place] gm/dL [facility] RDW 15.0 % 11.5-14.5 Critical access hospital Platelet 262 150-350 NO [facility] x10(3)/[facility] MPV 7.9 fL 7.4-10.4 [facility] ID Date Data Source [id number] 06/04/2019 10:04:00 PM [facility] Name Value Range Interpretation Code Description Data Jackie rce(s) Supporting Document(s ) D-Dimer 491 ng/ml 0-230 [facility] If the result is in the normal [...] may be present. ID Date Data Source [id number] 06/04/2019 10:03:00 PM [facility] Name Value Range Interpretation Description Data Sup porting Code Source(s) Document(s ) Lactic 1.0 0.9-2.0 [place] Acid Lvl mmol/L [facility] ID Date Data Source [id number] 06/04/2019 09:57:00 PM [facility] Name Value Range Interpretation Code Description Data Jackie rce(s) Supporting Document(s ) INR 1.1 ratio 0.9-1.2 [facility] Indications INRProphylaxis of venous thromo-embolism: Non-hip surgery..... ..........................1.5 - 2.5 Hip surgery................................. ..2.0 - 3.0Deep Vein Thrombosis or Pulmonary Embolism........2.0 - 3.0Prevention of s ystemic embolism in valvular heart disease, tissue prosthetic heart valvesor acute SD.......................................2.0 - 3.5Prevention of embolism in mechanical heartvalves or recurrent systemic embolism.............3.0 - 4.5 PT 13.2 second(s) 9.5-12.5 Critical [facility] hospital ID Date Data Source [id number] 06/04/2019 09:28:00 PM [facility] Name Value Range Interpretation Code Description Data Jackie rce(s) Supporting Document(s ) BNP 202 pg/mL 1-99 [facility] hospital ID Date Data Source [id number] 06/04/2019 09:24:00 PM [facility] Name Value Range Interpretation Description Data Sup porting Code Source(s) Document(s ) Troponin- 0.02 0.02-0.05 [facility] I ng/mL [facility] ID Date Data Source [id number] 06/04/2019 09:20:00 PM [facility] Name Value Range Interpretation Description Data Sup porting Code Source(s) Document(s ) Magnesium 2.5 mg/dL 1.6-2.5 NO [facility] ID Date Data Source [id number] 06/04/2019 09:20:00 PM [facility] Name Value Range Interpretation Code Description Data Jackie rce(s) Supporting Document(s ) Lipase Lvl 22 IU/L 10-59 NO [facility] ID Date Data Source [id number] 06/04/2019 09:20:00 PM [facility] Added by Discern Rule GLB_ADD_GFR_CMP Name Value Range Interpretation Code Description Data Jackie rce(s) Supporting Document(s ) eGFR-AA [address] >=60 [facility] mL/min/1.[address] The CKD-EPI equation for non- Nini [...] Mild decrease* G3a 45-59 Mild to moderate [id number] 30-44 Moderate to s evere decreaseG4 15-29 Severe decreaseG5 14 or less Kidney fa ilure eGFR-MEG 35 mL/min/1.73m2 >=60 [facility] The CKD-EPI equation for non- Nini [...] Mild decrease* G3a 45-59 Mild to moderate [id number] 30-44 Moderate to s evere decreaseG4 15-29 Severe decreaseG5 14 or less Kidney fa ilure ID Date Data Source [id number] 06/04/2019 09:20:00 PM EST [facility] Name Value Range Interpretation Description Data Sup porting Code Source(s) Document(s ) Glucose Lvl 171 65-99 [place] mg/dL [facility] BUN 39.0 7.0-21.0 [place] mg/dL [facility] Creatinine 2.02 0.70-1.2 [place] mg/dL 0 [facility] BUN/Creat 19.3 7.0-29.0 [place] Ratio ratio [facility] Sodium Lvl 136 136-146 [place] mmol/L [facility] Potassium Lvl 4.0 3.5-5.1 [place] mmol/L [facility] Chloride 103 98-109 [place] mmol/L [facility] CO2 22 17-33 [place] mmol/L [facility] AGAP 11 5-15 [place] [facility] Calcium Lvl 8.7 8.3-10.2 [place] mg/dL [facility] Total Protein 8.6 6.0-8.3 [place] gm/dL [facility] Albumin Lvl 3.6 3.7-5.3 [place] gm/dL [facility] Glob 5.0 2.0-4.5 [place] gm/dL [facility] A/G Ratio 0.7 1.0-2.2 [place] ratio [facility] Bili Total 0.9 0.4-1.1 [place] mg/dL [facility] Alk Phos 101 IU/L 30-125 NO [facility] AST 18 IU/L 10-35 NO [facility] ALT 16 IU/L 8-40 NO [facility] ID Date Data Source [id number] 06/04/2019 09:20:00 PM EST [facility] Name Value Range Interpretation Description Data Sup porting Code Source(s) Document(s ) Amylase Lvl 40 IU/L 26-121 NO [facility] ID Date Data Source [id number] 06/04/2019 09:07:00 PM EST [facility] Name Value Range Interpretation Description Data Sup porting Code Source(s) Document(s ) Neut Auto 86.9 % 40.0-70.0 Critical access hospital Lymph Auto 7.6 % 22.0-44.0 LO [facility] [place] Auto 5.1 % 4.0-11.0 [facility] Eos Auto 0.0 % 0.0-8.0 NO [facility] Baso Auto 0.4 % 0.0-3.0 [facility] Neut 12.5 1.8-7.7 [place] Absolute x10(3)/[facility] Lymph 1.1 1.0-4.8 NO [place] Absolute x10(3)/[facility] [place] 0.7 0.2-1.2 NO [place] Absolute x10(3)/[facility] Eos Absolute 0.0 0.0-0.9 [place] x10(3)/[facility] Baso 0.1 0.0-0.3 [place] Absolute x10(3)/[facility] ID Date Data Source [id number] 06/04/2019 09:07:00 PM EST [facility] Name Value Range Interpretation Description Data Sup porting Code Source(s) Document(s ) WBC 14.4 4.5-11.0 [place] x10(3)/[facility] RBC 4.18 4.50-5.90 [place] x10(6)/[facility] Hgb 10.3 13.5-17.5 [facility] Hct 32.6 % 41.0-53.0 [facility] MCV 78 fL 80-100 [facility] MCH 24.6 pg 26.0-34.0 [facility] MCHC 31.6 31.0-37.0 NO [facility] RDW 15.4 % 11.5-14.5 Critical access hospital Platelet 303 150-350 NO [facility] x10(3[facility] MPV 8.2 fL 7.4-10.4 [facility] ID Date Data Source [id number] 06/04/2019 09:01:00 PM [facility] Name Value Range Interpretation Description Data Sup porting Code Source(s) Document(s ) Influenza A Negative [facility] Test Methodology is Immunochromatographi c [...] culture is indicated. Influenza B Ag Negative [facility] Test Methodology is Immunochromatographi c test [...] is indicated. Influenza A/B Ag Source NA [facility] GLB_FLU_AB_AG_[email or web address] ID Date Data Source [id number] 06/04/2019 08:14:00 PM [facility] Patient Name: KARSTEN GIBBS EMRN: [id number] General DiagnosticACCESSION EXAM DATE/TIME PROCEDURE ORDERING PROVIDER [id number] 06/04/2019 20:08 EST XR Chest Portable [place] [...] Supporting Document(s ) ID Date Data Source [id number] 06/04/2019 05:12:00 PM [facility] S Iron Worker:LUCY RUIZ Name Value Range Interpretation Description Data Sup porting Code Source(s) Document(s ) Glucose 144 mg/dL [facility] [Mass/volume[facility] in Capillary blood by Glucometer ID Date Data Source [id number] 02/11/2019 07:45:00 AM [facility] S Iron Worker:YULY ORTEGA Name Value Range Interpretation Description Data Sup porting Code Source(s) Document(s ) Glucose 205 mg/dL [facility] [Mass/volume[facility] in Capillary blood by Glucometer ID Date Data Source [id number] 02/10/2019 11:26:00 AM [facility] Name Value Range Interpretation Description Data Sup porting Code Source(s) Document(s ) GLUCOSE RN Notified [facility] Hospital ID Date Data Source [id number] 02/10/2019 05:29:00 AM [facility] ADA RECOMMENDATIONS: NON-DIABETES: 4.0-6.0% CONTROLLED DIABETES: 6.0-8.0% UNCONTROLLED DIABETE S: UP TO 20%RECOMMENDED ADA RESULT FOR THERAPY: HEMOGLOBIN A1C RESULT LESS FRANK N 7%.NOTE: METHOD CHANGE EFFECTIVE 11/06/14. Name Value Range Interpretation Description Data Sup porting Code Source(s) Document(s ) Hemoglobin 7.0 % [facility] A1c/Hemoglobin. Hospital total in Blood ID Date Data Source [id number] 02/10/2019 05:29:00 AM [facility] Name Value Range Interpretation Description Data Sup porting Code Source(s) Document(s ) Calcium 8.3 mg/dL [facility] [Mass/volume Hospital ] in Serum or Plasma ID Date Data Source [id number] 02/10/2019 05:29:00 AM [facility] UNITS ARE IN ml/min/1.73m2.IF PATIENT IS -CUBAN, MULTIPLY REPORTED RESULT BY 1.21. Name Value Range Interpretation Description Data Sup porting Code Source(s) Document(s ) Glomerular > 60 [facility] filtration mL/min Hospital rate/1.73 sq M.predicted [Volume Rate/Area] in Serum or Plasma by Creatinine-bas ed formula (MDRD) ID Date Data Source [id number] 02/10/2019 05:29:00 AM [facility] Name Value Range Interpretation Code Description Data Jackie rce(s) Supporting Document(s ) Urea 15.0 [place] nitrogen/Cre Hospital atinine [Mass Ratio] in Serum or Plasma ID Date Data Source [id number] 02/10/2019 05:29:00 AM [facility] Name Value Range Interpretation Description Data Sup porting Code Source(s) Document(s ) Creatinine 1.2 mg/dL [facility] [Mass/volume] Hospital in Serum or Plasma ID Date Data Source [id number] 02/10/2019 05:29:00 AM [facility] THIS RESULT HAS BEEN VERIFIED. Name Value Range Interpretation Description Data Sup porting Code Source(s) Document(s ) Urea 18 mg/dL [facility] nitrogen Hospital [Mass/volume ] in Serum or Plasma ID Date Data Source [id number] 02/10/2019 05:29:00 AM [facility] Name Value Range Interpretation Code Description Data Jackie rce(s) Supporting Document(s ) Anion gap in 9 [facility] Serum or Hospital Plasma ID Date Data Source [id number] 02/10/2019 05:29:00 AM [facility] Name Value Range Interpretation Description Data Sup porting Code Source(s) Document(s ) Carbon 24 mmol/L [facility] dioxide, Hospital total [Moles/volu me] in Serum or Plasma ID Date Data Source [id number] 02/10/2019 05:29:00 AM [facility] Name Value Range Interpretation Description Data Sup porting Code Source(s) Document(s ) Chloride 105 [facility] [Moles/volum mmol/L Hospital e] in Serum or Plasma ID Date Data Source [id number] 02/10/2019 05:29:00 AM [facility] Name Value Range Interpretation Description Data Sup porting Code Source(s) Document(s ) Potassium 4.4 [facility] [Moles/volume mmol/L Hospital ] in Serum or Plasma ID Date Data Source [id number] 02/10/2019 05:29:00 AM [facility] Name Value Range Interpretation Description Data Sup porting Code Source(s) Document(s ) Sodium 134 mmol/L [facility] [Moles/volu [facility]] in Serum or Plasma ID Date Data Source [id number] 02/10/2019 05:29:00 AM [facility] Name Value Range Interpretation Description Data Sup porting Code Source(s) Document(s ) Glucose 142 mg/dL [facility] [Mass/volume Hospital ] in Serum or Plasma ID Date Data Source [id number] 02/10/2019 05:29:00 AM [facility] Value Range Interpretation Code Description Data Supporting Source(s) Document(s ) NUCLEATED RBCS 0.0 % [place] (AUTO Hospital DIFF%)DIS ID Date Data Source [id number] 02/10/2019 05:29:00 AM [facility] Value Range Interpretation Description Data Sup porting Code Source(s) Document(s ) Differential AUTOMATED [place] cell count [facility] method - Blood ID Date Data Source [id number] 02/10/2019 05:29:00 AM [facility] Name Value Range Interpretation Description Data Sup porting Code Source(s) Document(s ) Immature 0.02 [place] granulocytes 10*3/uL Hospital [#/volume] in Blood by Automated count ID Date Data Source [id number] 02/10/2019 05:29:00 AM [facility] Name Value Range Interpretation Description Data Sup porting Code Source(s) Document(s ) Basophils 0.03 [place] [#/volume] in 10*3/uL Hospital Blood by Automated count ID Date Data Source [id number] 02/10/2019 05:29:00 AM [facility] Name Value Range Interpretation Description Data Sup porting Code Source(s) Document(s ) Eosinophils 0.35 [place] [#/volume] in 10*3/uL Hospital Blood by Automated count ID Date Data Source [id number] 02/10/2019 05:29:00 AM EST [facility] Name Value Range Interpretation Description Data Sup porting Code Source(s) Document(s ) Monocytes 1.10 [place] [#/volume] in 10*3/uL Hospital Blood by Automated count ID Date Data Source [id number] 02/10/2019 05:29:00 AM EST [facility] Name Value Range Interpretation Description Data Sup porting Code Source(s) Document(s ) Lymphocytes 3.02 [place] [#/volume] in 10*3/uL Hospital Blood by Automated count ID Date Data Source [id number] 02/10/2019 05:29:00 AM EST [facility] Name Value Range Interpretation Description Data Sup porting Code Source(s) Document(s ) Neutrophils 3.80 [place] [#/volume] in 10*3/uL Hospital Blood by Automated count ID Date Data Source [id number] 02/10/2019 05:29:[address] [facility] Value Range Interpretation Description Data Sup porting Code Source(s) Document(s ) Nucleated 0.0 % [place] erythrocytes/10 Hospital 0 leukocytes [Ratio] in Blood by Automated count ID Date Data Source [id number] 02/10/2019 05:29:00 AM EST [facility] Name Value Range Interpretation Description Data Sup porting Code Source(s) Document(s ) Immature 0.2 % [place] granulocytes/10 Hospital 0 leukocytes in Blood by Automated count ID Date Data Source [id number] 02/10/2019 05:29:00 AM EST [facility] Name Value Range Interpretation Description Data Sup porting Code Source(s) Document(s ) Basophils/100 0.4 % [place] leukocytes in Hospital Blood by Automated count ID Date Data Source [id number] 02/10/2019 05:29:00 AM [facility] Name Value Range Interpretation Description Data Sup porting Code Source(s) Document(s ) Eosinophils/100 4.2 % [place] leukocytes in Hospital Blood by Automated count ID Date Data Source [id number] 02/10/2019 05:29:00 AM EST [facility] Name Value Range Interpretation Description Data Sup porting Code Source(s) Document(s ) Monocytes/100 13.2 % [place] leukocytes in Hospital Blood by Automated count ID Date Data Source [id number] 02/10/2019 05:29:00 AM [facility] Name Value Range Interpretation Description Data Sup porting Code Source(s) Document(s ) Lymphocytes/10 36.3 % [place] 0 leukocytes Hospital in Blood by Automated count ID Date Data Source [id number] 02/10/2019 05:29:00 AM EST [facility] Name Value Range Interpretation Description Data Sup porting Code Source(s) Document(s ) Neutrophils/10 45.7 % [place] 0 leukocytes Hospital in Blood by Automated count ID Date Data Source [id number] 02/10/2019 05:29:00 AM [facility] Name Value Range Interpretation Description Data Sup porting Code Source(s) Document(s ) Platelet mean 11.7 fL [place] volume Hospital [Entitic volume] in Blood by Automated count ID Date Data Source [id number] 02/10/2019 05:29:00 AM [facility] Name Value Range Interpretation Description Data Sup porting Code Source(s) Document(s ) Platelets 196 [place] [#/volume] in 10*3/uL Hospital Blood by Automated count ID Date Data Source [id number] 02/10/2019 05:29:00 AM [facility] Name Value Range Interpretation Description Data Sup porting Code Source(s) Document(s ) Erythrocyte 17.0 % [place] distribution Hospital width [Ratio] by Automated count ID Date Data Source [id number] 02/10/2019 05:29:00 AM [facility] Value Range Interpretation Description Data Sup porting Code Source(s) Document(s ) Erythrocyte mean 32.1 [place] corpuscular g/dL Hospital hemoglobin concentration [Mass/volume] by Automated count ID Date Data Source [id number] 02/10/2019 05:29:00 AM [facility] Value Range Interpretation Description Data Sup porting Code Source(s) Document(s ) Erythrocyte 25.0 pg [facility] corpuscular hemoglobin [Entitic mass] by Automated count ID Date Data Source [id number] 02/10/2019 05:29:00 AM [facility] Value Range Interpretation Description Data Sup porting Code Source(s) Document(s ) Erythrocyte 77.9 fL [facility] corpuscular volume [Entitic volume] by Automated count ID Date Data Source [id number] 02/10/2019 05:29:00 AM [facility] Value Range Interpretation Description Data Sup porting Code Source(s) Document(s ) Hematocrit 26.5 % [place] [Volume Hospital Fraction] of Blood by Automated count ID Date Data Source [id number] 02/10/2019 05:29:00 AM [facility] Value Range Interpretation Description Data Sup porting Code Source(s) Document(s ) Hemoglobin 8.5 g/dL [place] [Mass/volume] Hospital in Blood ID Date Data Source [id number] 02/10/2019 05:29:00 AM [facility] Value Range Interpretation Description Data Sup porting Code Source(s) Document(s ) Erythrocytes 3.40 [place] [#/volume] in 10*6/uL Hospital Blood by Automated count ID Date Data Source [id number] 02/10/2019 05:29:00 AM EST [facility] Name Value Range Interpretation Description Data Sup porting Code Source(s) Document(s ) Leukocytes 8.3 [place] [#/volume] in 10*3/uL Hospital Blood by Automated count ID Date Data Source [id number] 02/06/2019 08:21:00 AM EDT [facility] Name Value Range Interpretation Description Data Sup porting Code Source(s) Document(s ) Aspartate 11 U/L [place] aminotransferase [place] [Enzymatic Hospital activity/volume] in Serum or Plasma ID Date Data Source [id number] 02/06/2019 08:21:00 AM EDT [facility] Name Value Range Interpretation Description Data Sup porting Code Source(s) Document(s ) Alanine 12 U/L [facility] aminotransferase [place] [Enzymatic Hospital activity/volume] in Serum or Plasma ID Date Data Source [id number] 02/06/2019 08:21:00 AM EDT [facility] Name Value Range Interpretation Description Data Sup porting Code Source(s) Document(s ) Alkaline 104 U/L [place] phosphatase Hospital [Enzymatic activity/volume ] in Serum or Plasma ID Date Data Source [id number] 02/06/2019 08:21:00 AM EDT [facility] Name Value Range Interpretation Description Data Sup porting Code Source(s) Document(s ) Bilirubin.d 0.2 mg/dL [facility] [Mass/volum e] in Serum or Plasma ID Date Data Source [id number] 02/06/2019 08:21:00 AM EDT [facility] Name Value Range Interpretation Description Data Sup porting Code Source(s) Document(s ) Bilirubin.t 0.5 mg/dL [facility] [Mass/volum e] in Serum or Plasma ID Date Data Source [id number] 02/06/2019 08:21:00 AM EDT [facility] Name Value Range Interpretation Code Description Data Jackie rce(s) Supporting Document(s ) Albumin/Glob 1.1 [place] ulin [Mass Hospital Ratio] in Serum or Plasma ID Date Data Source [id number] 02/06/2019 08:21:00 AM EDT [facility] Name Value Range Interpretation Description Data Sup porting Code Source(s) Document(s ) Albumin 3.0 g/dL [place] [Mass/volume Hospital ] in Serum or Plasma ID Date Data Source [id number] 02/06/2019 08:21:[address] [facility] Value Range Interpretation Description Data Sup porting Code Source(s) Document(s ) Protein 5.7 g/dL [place] [Mass/volume Hospital ] in Serum or Plasma ID Date Data Source [id number] [facility] Description Data Sup porting Code Source(s) Document(s ) URINE OCCASIONAL [place] EPITHELIAL [facility] CELLS ID Date Data Source [id number] 02/03/2019 07:31:00 AM EDT [facility] Name Value Range Interpretation Description Data Sup porting Code Source(s) Document(s ) Erythrocytes 10-20 [place] [#/area] in /[HPF] Hospital Urine sediment by Automated count ID Date Data Source [id number] 02/03[facility]2019 [facility] Description Data Sup porting Code Source(s) Document(s ) Leukocytes 3-5 [place] [#/area] in /[HPF] Hospital Urine sediment by Automated count ID Date Data Source [id number] 02/03/2019 07:31:00 AM EDT [facility] Name Value Range Interpretation Description Data Sup porting Code Source(s) Document(s ) Leukocyte NEGATIVE [place] esterase Hospital [Presence] in Urine by Test strip ID Date Data Source [id number] 02/03/2019 07:31:00 AM EDT [facility] Name Value Range Interpretation Description Data Sup porting Code Source(s) Document(s ) URINE NEGATIVE [place] NITRITES Hospital ID Date Data Source [id number] 02/03/2019 07:31:00 AM EDT [facility] Name Value Range Interpretation Description Data Sup porting Code Source(s) Document(s ) Erythrocytes TRACE [place] [#/volume] in Hospital Urine by Test strip ID Date Data Source [id number] 02/03/2019 07:31:00 AM EDT [facility] Name Value Range Interpretation Code Description Data Jackie rce(s) Supporting Document(s ) Bilirubin. NEGATIVE [place] total Hospital [Presence] in Urine by Test strip ID Date Data Source [id number] 02/03/2019 07:31:00 AM EDT [facility] Name Value Range Interpretation Description Data Sup porting Code Source(s) Document(s ) Urobilinogen 0.2 [place] [Units/volume] mg/dL Hospital in Urine by Test strip ID Date Data Source [id number] 02/03/2019 07:31:00 AM EDT [facility] Name Value Range Interpretation Code Description Data Jackie rce(s) Supporting Document(s ) Ketones TRACE [place] [Mass/volume Hospital ] in Urine by Test strip ID Date Data Source [id number] 02/03/2019 07:31:00 AM EDT [facility] Name Value Range Interpretation Code Description Data Jackie rce(s) Supporting Document(s ) Glucose 1+ [place] [Mass/volume Hospital ] in Urine by Test strip ID Date Data Source [id number] 02/03[facility]2019 [facility] Interpretation Code Description Data Jackie rce(s) Supporting Document(s ) Protein 4+ [place] [Presence] Hospital in Urine by Test strip ID Date Data Source [id number] 02/03/2019 [facility] Value Range Interpretation Code Description Data Jackie rce(s) Supporting Document(s ) pH of Urine 6.5 [place] by Test Hospital strip ID Date Data Source [id number] 02/03/2019 07:31:00 AM [facility] Name Value Range Interpretation Code Description Data Supporting Source(s) Document(s ) Specific 1.022 [place] gravity of Hospital Urine by Test strip ID Date Data Source [id number] 02/03/2019 07:31:00 AM [facility] Name Value Range Interpretation Description Data Sup porting Code Source(s) Document(s ) Clarity in Urine CLEAR [place] by Refractometry [facility] automated ID Date Data Source [id number] 02/03/2019 07:31:00 AM [facility] Name Value Range Interpretation Code Description Data Jackie rce(s) Supporting Document(s ) Color of YELLOW [place] Urine Hospital ID Date Data Source [id number] 01/29/2019 07:20:00 PM [facility] TEST PERFORMED BY [employer] [facility] CHEMILUMINESCENCE METHOD. Name Value Range Interpretation Description Data Sup porting Code Source(s) Document(s ) Troponin < 0.01 [place] I.cardiac ng/mL Hospital [Mass/volume ] in Serum or Plasma ID Date Data Source [id number] 01/29/2019 07:20:00 PM [facility] Name Value Range Interpretation Code Description Data Jackie rce(s) Supporting Document(s ) Lipase 25 U/L [place] [Enzymatic Hospital activity/vo lume] in Serum or Plasma ID Date Data Source [id number] 01/20/2019 08:52:00 AM [facility] S [employer] Worker:DORA MAKSIM Name Value Range Interpretation Description Data Sup porting Code Source(s) Document(s ) Glucose 104 mg/dL [place] [Mass/volume] Hospital in Capillary blood by Glucometer ID Date Data Source [id number] 01/15/2019 08:42:00 AM [facility] Value Range Interpretation Description Data Sup porting Code Source(s) Document(s ) Platelet mean 9.5 fL [place] volume Hospital [Entitic volume] in Blood by Automated count ID Date Data Source [id number] 01/15/2019 08:42:00 AM [facility] Name Value Range Interpretation Description Data Sup porting Code Source(s) Document(s ) Platelets 386 [place] [#/volume] in 10*3/uL Hospital Blood by Automated count ID Date Data Source [id number] 01/15/2019 [facility] Name Value Range Interpretation Description Data Sup porting Code Source(s) Document(s ) Erythrocyte 18.7 % [place] distribution Hospital width [Ratio] by Automated count ID Date Data Source [id number] 01/15/2019 08:42:00 AM [facility] Name Value Range Interpretation Description Data Sup porting Code Source(s) Document(s ) Erythrocyte mean 32.7 [place] corpuscular g/dL Hospital hemoglobin concentration [Mass/volume] by Automated count ID Date Data Source [id number] 01/15/2019 08:42:[address] [facility] Value Range Interpretation Description Data Sup porting Code Source(s) Document(s ) Erythrocyte 24.8 pg [facility] corpuscular hemoglobin [Entitic mass] by Automated count ID Date Data Source [id number] 01/15/2019 08:42:[address] [facility] Value Range Interpretation Description Data Sup porting Code Source(s) Document(s ) Erythrocyte 76.1 fL [facility] corpuscular volume [Entitic volume] by Automated count ID Date Data Source [id number] 01/15/2019 08:42:00 AM [facility] Value Range Interpretation Description Data Sup porting Code Source(s) Document(s ) Hematocrit 24.5 % [place] [Volume Hospital Fraction] of Blood by Automated count ID Date Data Source [id number] 01/15/2019 08:42:00 AM [facility] Value Range Interpretation Description Data Sup porting Code Source(s) Document(s ) Hemoglobin 8.0 g/dL [place] [Mass/volume] Hospital in Blood ID Date Data Source [id number] 01/15/2019 08:42:[address] [facility] Value Range Interpretation Description Data Sup porting Code Source(s) Document(s ) Erythrocytes 3.22 [place] [#/volume] in 10*6/uL Hospital Blood by Automated count ID Date Data Source [id number] 01/15/2019 [facility] Interpretation Description Data Sup porting Code Source(s) Document(s ) Leukocytes 6.6 [place] [#/volume] in 10*3/uL Hospital Blood by Automated count ID Date Data Source [id number] 01/15/2019 07:42:00 AM EDT [facility] Name Value Range Interpretation Description Data Sup porting Code Source(s) Document(s ) Calcium 8.5 mg/dL [place] [Mass/volume Hospital ] in Serum or Plasma ID Date Data Source [id number] 01/15/2019 07:42:00 AM EDT [facility] Name Value Range Interpretation Code Description Data Jackie rce(s) Supporting Document(s ) Urea 13.6 [place] nitrogen/Cre Hospital atinine [Mass Ratio] in Serum or Plasma ID Date Data Source [id number] 01/15/2019 07:42:00 AM EDT [facility] Name Value Range Interpretation Description Data Sup porting Code Source(s) Document(s ) Creatinine 1.1 mg/dL [place] [Mass/volume] Hospital in Serum or Plasma ID Date Data Source [id number] 01/15/2019 07:42:00 AM EDT [facility] Name Value Range Interpretation Description Data Sup porting Code Source(s) Document(s ) Urea 15 mg/dL [place] nitrogen Hospital [Mass/volume ] in Serum or Plasma ID Date Data Source [id number] 01/15/2019 07:42:00 AM EDT [facility] Name Value Range Interpretation Code Description Data Jackie rce(s) Supporting Document(s ) Anion gap in 10 [place] Serum or Hospital Plasma ID Date Data Source [id number] 01/15/2019 07:42:00 AM EDT [facility] Name Value Range Interpretation Description Data Sup porting Code Source(s) Document(s ) Carbon 28 mmol/L [facility], Hospital total [Moles/volu me] in Serum or Plasma ID Date Data Source [id number] 01/15/2019 07:42:00 AM [facility] Name Value Range Interpretation Description Data Sup porting Code Source(s) Document(s ) Chloride 102 [place] [Moles/volum mmol/L Hospital e] in Serum or Plasma ID Date Data Source [id number] 01/15/2019 07:42:00 AM [facility] Name Value Range Interpretation Description Data Sup porting Code Source(s) Document(s ) Potassium 3.9 [place] [Moles/volume mmol/L Hospital ] in Serum or Plasma ID Date Data Source [id number] 01/15/2019 07:42:00 AM [facility] Name Value Range Interpretation Description Data Sup porting Code Source(s) Document(s ) Sodium 136 mmol/L [place] [Moles/volu Hospital me] in Serum or Plasma ID Date Data Source [id number] 01/15/2019 07:42:00 AM [facility] Name Value Range Interpretation Description Data Sup porting Code Source(s) Document(s ) Glucose 124 mg/dL [place] [Mass/volume Hospital ] in Serum or Plasma ID Date Data Source [id number] 01/15/2019 02:08:00 AM [facility] NOTE: NEW REFERENCE RANGE, EFFECTIVE . Name Value Range Interpretation Description Data Sup porting Code Source(s) Document(s ) Vancomycin 12.8 [place] [Mass/volume] ug/mL Hospital in Serum or Plasma --trough ID Date Data Source [id number] 01/15/2019 02:08:00 AM [facility] NOTE: NEW REFERENCE RANGE, EFFECTIVE . Name Value Range Interpretation Description Data Sup porting Code Source(s) Document(s ) Vancomycin 12.8 [place] [Mass/volume] ug/mL Hospital in Serum or Plasma --trough ID Date Data Source [id number] 01/11/2019 10:40:00 AM [facility] Name Value Range Interpretation Description Data Sup porting Code Source(s) Document(s ) MEAN 80.[address] [facility] VOLUME ID Date Data Source [id number] 01/11/2019 10:40:00 AM [facility] Value Range Interpretation Description Data Sup porting Code Source(s) Document(s ) MEAN 80.[address] [facility] VOLUME ID Date Data Source [id number] 01/10/2019 07:19:00 AM [facility] Value Range Interpretation Description Data Sup porting Code Source(s) Document(s ) Aspartate 13 U/L [facility] aminotransferase [place] [Enzymatic Hospital activity/volume] in Serum or Plasma ID Date Data Source [id number] 01/10/2019 07:19:00 AM [facility] Name Value Range Interpretation Description Data Sup porting Code Source(s) Document(s ) Alanine 16 U/L [place] aminotransferase [place] [Enzymatic Hospital activity/volume] in Serum or Plasma ID Date Data Source [id number] 01/10/2019 07:19:00 AM [facility] Name Value Range Interpretation Description Data Sup porting Code Source(s) Document(s ) Alkaline 142 U/L [place] phosphatase Hospital [Enzymatic activity/volume ] in Serum or Plasma ID Date Data Source [id number] 01/10/2019 07:19:00 AM [facility] Name Value Range Interpretation Description Data Sup porting Code Source(s) Document(s ) Bilirubin.t 0.3 mg/dL [facility] [Mass/volum e] in Serum or Plasma ID Date Data Source [id number] 01/10/2019 07:19:00 AM EDT [facility] Name Value Range Interpretation Code Description Data Jackie rce(s) Supporting Document(s ) Albumin/Glob 0.9 [place] ulin [Mass Hospital Ratio] in Serum or Plasma ID Date Data Source [id number] 01/10/2019 07:19:00 AM EDT [facility] Name Value Range Interpretation Description Data Sup porting Code Source(s) Document(s ) Albumin 3.3 g/dL [place] [Mass/volume Hospital ] in Serum or Plasma ID Date Data Source [id number] 01/10/2019 07:19:00 AM EDT [facility] Name Value Range Interpretation Description Data Sup porting Code Source(s) Document(s ) Protein 6.9 g/dL [place] [Mass/volume Hospital ] in Serum or Plasma ID Date Data Source [id number] 01/10/2019 07:19:00 AM EDT [facility] Name Value Range Interpretation Code Description Data Supporting Source(s) Document(s ) NUCLEATED RBCS 0.0 % [place] (AUTO Hospital DIFF%)DIS ID Date Data Source [id number] 01/10/2019 07:19:00 AM EDT [facility] Name Value Range Interpretation Description Data Sup porting Code Source(s) Document(s ) Differential AUTOMATED [place] cell count Hospital method - Blood ID Date Data Source [id number] 01/10/2019 07:19:00 AM EDT [facility] Name Value Range Interpretation Description Data Sup porting Code Source(s) Document(s ) Immature 0.02 [place] granulocytes 10*3/uL Hospital [#/volume] in Blood by Automated count ID Date Data Source [id number] 01/10/2019 07:19:00 AM EDT [facility] Name Value Range Interpretation Description Data Sup porting Code Source(s) Document(s ) Basophils 0.03 [place] [#/volume] in 10*3/uL Hospital Blood by Automated count ID Date Data Source [id number] 01/10/2019 07:19:00 AM EDT [facility] Name Value Range Interpretation Description Data Sup porting Code Source(s) Document(s ) Eosinophils 0.20 [place] [#/volume] in 10*3/uL Hospital Blood by Automated count ID Date Data Source [id number] 01/10/2019 07:19:00 AM EDT [facility] Name Value Range Interpretation Description Data Sup porting Code Source(s) Document(s ) Monocytes 1.19 [place] [#/volume] in 10*3/uL Hospital Blood by Automated count ID Date Data Source [id number] 01/10/2019 07:19:[address] [facility] Value Range Interpretation Description Data Sup porting Code Source(s) Document(s ) Lymphocytes 2.21 [place] [#/volume] in 10*3/uL [facility] Blood by Automated count ID Date Data Source [id number] 01/10/2019 07:19:[address] [facility] Value Range Interpretation Description Data Sup porting Code Source(s) Document(s ) Neutrophils 5.70 [place] [#/volume] in 10*3/uL Hospital Blood by Automated count ID Date Data Source [id number] 01/10/2019 07:19:00 AM EDT [facility] Name Value Range Interpretation Description Data Sup porting Code Source(s) Document(s ) Nucleated 0.0 % [place] erythrocytes/10 Hospital 0 leukocytes [Ratio] in Blood by Automated count ID Date Data Source [id number] 01/10/2019 07:19:[address] [facility] Value Range Interpretation Description Data Sup porting Code Source(s) Document(s ) Immature 0.2 % [place] granulocytes/10 Hospital 0 leukocytes in Blood by Automated count ID Date Data Source [id number] 01/10/2019 07:19:00 AM EDT [facility] Name Value Range Interpretation Description Data Sup porting Code Source(s) Document(s ) Basophils/100 0.3 % [place] leukocytes in Hospital Blood by Automated count ID Date Data Source [id number] 01/10/2019 07:19:[address] [facility] Value Range Interpretation Description Data Sup porting Code Source(s) Document(s ) Eosinophils/100 2.1 % [place] leukocytes in Hospital Blood by Automated count ID Date Data Source [id number] 01/10/2019 07:19:[address] [facility] Value Range Interpretation Description Data Sup porting Code Source(s) Document(s ) Monocytes/100 12.7 % [place] leukocytes in Hospital Blood by Automated count ID Date Data Source [id number] 01/10/2019 07:19:00 AM EDT [facility] Name Value Range Interpretation Description Data Sup porting Code Source(s) Document(s ) Lymphocytes/10 23.6 % [place] 0 leukocytes Hospital in Blood by Automated count ID Date Data Source [id number] 01/10/2019 07:19:00 AM EDT [facility] Name Value Range Interpretation Description Data Sup porting Code Source(s) Document(s ) Neutrophils/10 61.1 % [place] 0 leukocytes Hospital in Blood by Automated count ID Date Data Source [id number] 01/08/2019 12:12:00 PM EDT [facility] Name Value Range Interpretation Description Data Sup porting Code Source(s) Document(s ) GLUCOSE RN Notified [facility] Hospital ID Date Data Source [id number] 01/08/2019 11:19:00 AM EDT [facility] Name Value Range Interpretation Description Data Sup porting Code Source(s) Document(s ) Bacteria No growth [place] identified in Hospital Blood by Culture ID Date Data Source [id number] 01/08/2019 11:19:00 AM EDT [facility] Name Value Range Interpretation Description Data Sup porting Code Source(s) Document(s ) Bacteria No growth [place] identified in Hospital Blood by Culture ID Date Data Source [id number] [facility] Value Range Interpretation Description Data Sup porting Code Source(s) Document(s ) GLUCOSE To Be [place] COMMENT2 Repeated Hospital ID Date Data Source [id number] 12/31/2018 07:57:00 PM EDT [facility] Name Value Range Interpretation Description Data Sup porting Code Source(s) Document(s ) GLUCOSE To Be [place] COMMENT2 Repeated Hospital ID Date Data Source [id number] [facility] Description Data Sup porting Code Source(s) Document(s ) [facility] in Serum or Plasma ID Date Data Source [id number] 12/30/2018 [facility] Name Value Range Interpretation Description Data Sup porting Code Source(s) Document(s ) Gamma glutamyl 80 U/L [facility] [Enzymatic activity/volume ] in Serum or Plasma ID Date Data Source [id number] 12/29/2018 [facility] Interpretation Description Data Sup porting Code Source(s) Document(s ) Lactate 1.1 [place] [Moles/volum mmol/L Hospital e] in Serum or Plasma ID Date Data Source [id number] 12/29/2018 [facility] Value Range Interpretation Description Data Sup porting Code Source(s) Document(s ) Lactate 1.1 [place] [Moles/volum mmol/L Hospital e] in Serum or Plasma ID Date Data Source [id number] 12/28/2018 10:45:00 PM EDT [facility] Name Value Range Interpretation Description Data Sup porting Code Source(s) Document(s ) Natriuretic 63.2 [place] peptide B pg/mL Hospital [Mass/volume] in Serum or Plasma ID Date Data Source [id number] 12/28/2018 10:45:00 PM [facility] THERAPEUTIC RANGE FOR STANDARD ORALANTIC OAGULANT THERAPY: 2.0-3.0THERAPEUTIC RANGE FOR HIGH DOSE ORALANTICOAGULANT THERAPY (MECHANICAL HEARTVALVE REPLACEMENT): 2.5-3.5 Name Value Range Interpretation Description Data Sup porting Code Source(s) Document(s ) INR in Platelet 1.2 [place] poor plasma by Hospital Coagulation assay ID Date Data Source [id number] 12/28/2018 [facility] Name Value Range Interpretation Description Data Sup porting Code Source(s) Document(s ) PT panel - 13.0 s [place] Platelet poor [facility] plasma by Coagulation assay ID Date Data Source [id number] 12/28/2018 10:45:00 PM [facility] Name Value Range Interpretation Description Data Sup porting Code Source(s) Document(s ) Natriuretic 63.2 [place] peptide B pg/mL Hospital [Mass/volume] in Serum or Plasma ID Date Data Source [id number] 12/28/2018 10:45:00 PM [facility] THERAPEUTIC RANGE FOR STANDARD ORALANTIC OAGULANT THERAPY: 2.0-3.0THERAPEUTIC RANGE FOR HIGH DOSE ORALANTICOAGULANT THERAPY (MECHANICAL HEARTVALVE REPLACEMENT): 2.5-3.5 Name Value Range Interpretation Description Data Sup porting Code Source(s) Document(s ) INR in Platelet 1.2 [place] poor plasma by Hospital Coagulation assay ID Date Data Source [id number] 12/28/2018 10:45:00 PM [facility] Name Value Range Interpretation Description Data Sup porting Code Source(s) Document(s ) PT panel - 13.0 s [place] Platelet poor [facility] plasma by Coagulation assay ID Date Data Source [id number] 12/28/2018 12:01:00 AM [facility] TEST PERFORMED BY [employer] [facility] SENSIT[employer] [facility] CHEMILUMINESCENCE METHOD. Name Value Range Interpretation Description Data Sup porting Code Source(s) Document(s ) Troponin 0.01 [place] I.cardiac ng/mL Hospital [Mass/volume ] in Serum or Plasma ID Date Data Source [id number] 12/27/2018 08:35:00 AM [facility] S [employer] Work[employer]:[facility] Name Value Range Interpretation Description Data Sup porting Code Source(s) Document(s ) Glucose 238 mg/dL [place] [Mass/volume] Hospital in Capillary blood by Glucometer ID Date Data Source [id number] 12/26/2018 08:30:00 AM [facility] THERE ARE NO REFERENCE RANGES FOR RANDOM VANCOMYCIN LEVELS. Name Value Range Interpretation Description Data Sup porting Code Source(s) Document(s ) Vancomycin 11.9 [place] [Mass/volume] ug/mL Hospital in Serum or Plasma --trough ID Date Data Source [id number] 12/26/2018 08:30:00 AM EDT [facility] Name Value Range Interpretation Description Data Sup porting Code Source(s) Document(s ) Calcium 8.7 mg/dL [place] [Mass/volume Hospital ] in Serum or Plasma ID Date Data Source [id number] 12/26/2018 08:30:00 AM EDT [facility] Name Value Range Interpretation Code Description Data Jackie rce(s) Supporting Document(s ) Urea 16.0 [place] nitrogen/Cre Hospital atinine [Mass Ratio] in Serum or Plasma ID Date Data Source [id number] 12/26/2018 08:30:00 AM EDT [facility] Name Value Range Interpretation Description Data Sup porting Code Source(s) Document(s ) Creatinine 1.0 mg/dL [place] [Mass/volume] Hospital in Serum or Plasma ID Date Data Source [id number] 12/26/2018 08:30:00 AM EDT [facility] Name Value Range Interpretation Description Data Sup porting Code Source(s) Document(s ) Urea 16 mg/dL [place] nitrogen Hospital [Mass/volume ] in Serum or Plasma ID Date Data Source [id number] 12/26/2018 08:30:[address] [facility] Value Range Interpretation Code Description Data Jackie rce(s) Supporting Document(s ) Anion gap in 10 [place] Serum or [facility] Plasma ID Date Data Source [id number] 12/26/2018 08:30:00 AM EDT [facility] Name Value Range Interpretation Description Data Sup porting Code Source(s) Document(s ) Carbon 27 mmol/L [place] dioxide, Hospital total [Moles/volu me] in Serum or Plasma ID Date Data Source [id number] 12/26/2018 08:30:00 AM EDT [facility] Name Value Range Interpretation Description Data Sup porting Code Source(s) Document(s ) Chloride 102 [place] [Moles/volum mmol/L Hospital e] in Serum or Plasma ID Date Data Source [id number] 12/26/2018 08:30:00 AM EDT [facility] Name Value Range Interpretation Description Data Sup porting Code Source(s) Document(s ) Potassium 4.1 [place] [Moles/volume mmol/L Hospital ] in Serum or Plasma ID Date Data Source [id number] 12/26/2018 08:30:[address] [facility] Value Range Interpretation Description Data Sup porting Code Source(s) Document(s ) Sodium 135 mmol/L [place] [Moles/volu Hospital me] in Serum or Plasma ID Date Data Source [id number] 12/26/2018 08:30:[address] [facility] Value Range Interpretation Description Data Sup porting Code Source(s) Document(s ) Glucose 156 mg/dL [place] [Mass/volume Hospital ] in Serum or Plasma ID Date Data Source [id number] 12/26/2018 [facility] Interpretation Description Data Sup porting Code Source(s) Document(s ) Platelet mean 9.4 fL [place] volume Hospital [Entitic volume] in Blood by Automated count ID Date Data Source [id number] 12/26/2018 08:30:00 AM EDT [facility] Name Value Range Interpretation Description Data Sup porting Code Source(s) Document(s ) Platelets 461 [place] [#/volume] in 10*3/uL Hospital Blood by Automated count ID Date Data Source [id number] 12/26/2018 08:30:[address] [facility] Value Range Interpretation Description Data Sup porting Code Source(s) Document(s ) Erythrocyte 19.8 % [place] distribution Hospital width [Ratio] by Automated count ID Date Data Source [id number] 12/26/2018 08:30:00 AM [facility] Name Value Range Interpretation Description Data Sup porting Code Source(s) Document(s ) Erythrocyte mean 31.2 [place] corpuscular g/dL Hospital hemoglobin concentration [Mass/volume] by Automated count ID Date Data Source [id number] 12/26/2018 [facility] Name Value Range Interpretation Description Data Sup porting Code Source(s) Document(s ) Erythrocyte 24.1 pg [facility] corpuscular hemoglobin [Entitic mass] by Automated count ID Date Data Source [id number] 12/26/2018 08:30:00 AM [facility] Name Value Range Interpretation Description Data Sup porting Code Source(s) Document(s ) Erythrocyte 77.3 fL [facility] corpuscular volume [Entitic volume] by Automated count ID Date Data Source [id number] 12/26/2018 08:30:00 AM [facility] Name Value Range Interpretation Description Data Sup porting Code Source(s) Document(s ) Hematocrit 23.1 % [place] [Volume Hospital Fraction] of Blood by Automated count ID Date Data Source [id number] 12/26/2018 08:30:00 AM [facility] NOTIFICATION AND READ BACK OF CRITICAL R ESULTS TO KENDELL HAMMER RN 4E AT 0942 ON 12/26/18 BY Pat Rapp. Name Value Range Interpretation Description Data Sup porting Code Source(s) Document(s ) Hemoglobin 7.2 g/dL [place] [Mass/volume] Hospital in Blood ID Date Data Source [id number] 12/26/2018 08:30:00 AM [facility] Name Value Range Interpretation Description Data Sup porting Code Source(s) Document(s ) Erythrocytes 2.99 [place] [#/volume] in 10*6/uL Hospital Blood by Automated count ID Date Data Source [id number] 12/26/2018 08:30:00 AM [facility] Name Value Range Interpretation Description Data Sup porting Code Source(s) Document(s ) Leukocytes 8.9 [place] [#/volume] in 10*3/uL Hospital Blood by Automated count ID Date Data Source [id number] 12/26/2018 08:30:00 AM [facility] THERE ARE NO REFERENCE RANGES FOR RANDOM VANCOMYCIN LEVELS. Name Value Range Interpretation Description Data Sup porting Code Source(s) Document(s ) Vancomycin 11.9 [place] [Mass/volume] ug/mL Hospital in Serum or Plasma --trough ID Date Data Source [id number] 12/22/2018 10:54:00 PM [facility] NOTIFICATION AND READ BACK OF CRITICAL R ESULTS TO CARLA BOWERS RN-4E AT 2350 ON 12/22/18 BY Radha Page.NOTE: NEW RE FERENCE RANGE, EFFECTIVE 07/26/16.REPORTED CRITICAL VALUES SHOULD BE INTERPRETED WI THIN CLINICAL CONTEXT. Name Value Range Interpretation Description Data Sup porting Code Source(s) Document(s ) Vancomycin 23.7 [place] [Mass/volume] ug/mL Hospital in Serum or Plasma --trough ID Date Data Source [id number] 12/22/2018 06:11:00 AM [facility] Name Value Range Interpretation Code Description Data Jackie rce(s) Supporting Document(s ) URINE 0-5 [facility] CASTS ID Date Data Source [id number] 12/22/2018 06:11:00 AM [facility] Name Value Range Interpretation Description Data Sup porting Code Source(s) Document(s ) Erythrocytes 5-10 [place] [#/area] in /[HPF] Hospital Urine sediment by Automated count ID Date Data Source [id number] 12/22/2018 06:11:00 AM EDT [facility] Name Value Range Interpretation Description Data Sup porting Code Source(s) Document(s ) Leukocytes 0-3 [place] [#/area] in /[HPF] Hospital Urine sediment by Automated count ID Date Data Source [id number] 12/22/2018 06:11:00 AM EDT [facility] Name Value Range Interpretation Description Data Sup porting Code Source(s) Document(s ) Leukocyte NEGATIVE [place] esterase Hospital [Presence] in Urine by Test strip ID Date Data Source [id number] 12/22/2018 06:11:00 AM EDT [facility] Name Value Range Interpretation Description Data Sup porting Code Source(s) Document(s ) URINE NEGATIVE [place] NITRITES Hospital ID Date Data Source [id number] 12/22/2018 06:11:[address] [facility] Value Range Interpretation Description Data Sup porting Code Source(s) Document(s ) Erythrocytes TRACE [place] [#/volume] in Hospital Urine by Test strip ID Date Data Source [id number] 12/22/2018 06:11:00 AM EDT [facility] Name Value Range Interpretation Code Description Data Jackie rce(s) Supporting Document(s ) Bilirubin. NEGATIVE [place] total Hospital [Presence] in Urine by Test strip ID Date Data Source [id number] 12/22/2018 06:11:[address] [facility] Value Range Interpretation Description Data Sup porting Code Source(s) Document(s ) Urobilinogen 0.2 [place] [Units/volume] mg/dL Hospital in Urine by Test strip ID Date Data Source [id number] 12/22/2018 06:11:00 AM EDT [facility] Name Value Range Interpretation Description Data Sup porting Code Source(s) Document(s ) Ketones NEGATIVE [place] [Mass/volume Hospital ] in Urine by Test strip ID Date Data Source [id number] 12/22/2018 06:11:00 AM EDT [facility] Name Value Range Interpretation Code Description Data Jackie rce(s) Supporting Document(s ) Glucose TRACE [place] [Mass/volume Hospital ] in Urine by Test strip ID Date Data Source [id number] 12/22/2018 06:11:00 AM EDT [facility] Name Value Range Interpretation Code Description Data Jackie rce(s) Supporting Document(s ) Protein 2+ [place] [Presence] Hospital in Urine by Test strip ID Date Data Source [id number] 12/22/2018 06:11:00 AM EDT [facility] Name Value Range Interpretation Code Description Data Jackie rce(s) Supporting Document(s ) pH of Urine 6.5 [place] by Test Hospital strip ID Date Data Source [id number] 12/22/2018 06:11:00 AM EDT [facility] Name Value Range Interpretation Code Description Data Supporting Source(s) Document(s ) Specific 1.012 [place] gravity of Hospital Urine by Test strip ID Date Data Source [id number] 12/22/2018 06:11:00 AM EDT [facility] Name Value Range Interpretation Description Data Sup porting Code Source(s) Document(s ) Clarity in Urine CLEAR [place] by Refract[facility] automated ID Date Data Source [id number] 12/22/2018 06:11:00 AM EDT [facility] Name Value Range Interpretation Code Description Data Jackie rce(s) Supporting Document(s ) Color of YELLOW [place] Urine Hospital ID Date Data Source [id number] 12/22/2018 06:11:00 AM EDT [facility] Name Value Range Interpretation Code Description Data Jackie rce(s) Supporting Document(s ) URINE 0-5 [place] HYALINE Hospital CASTS ID Date Data Source [id number] 12/22/2018 06:11:00 AM EDT [facility] Name Value Range Interpretation Description Data Sup porting Code Source(s) Document(s ) Erythrocytes 5-10 [place] [#/area] in /[HPF] Hospital Urine sediment by Automated count ID Date Data Source [id number] 12/22/2018 06:11:[address] [facility] Value Range Interpretation Description Data Sup porting Code Source(s) Document(s ) Leukocytes 0-3 [place] [#/area] in /[HPF] Hospital Urine sediment by Automated count ID Date Data Source [id number] 12/22/2018 06:11:[address] [facility] Value Range Interpretation Description Data Sup porting Code Source(s) Document(s ) Leukocyte NEGATIVE [place] esterase Hospital [Presence] in Urine by Test strip ID Date Data Source [id number] 12/22/2018 06:11:00 AM EDT [facility] Name Value Range Interpretation Description Data Sup porting Code Source(s) Document(s ) URINE NEGATIVE [place] NITRITES Hospital ID Date Data Source [id number] 12/22/2018 06:11:00 AM EDT [facility] Name Value Range Interpretation Description Data Sup porting Code Source(s) Document(s ) Erythrocytes TRACE [place] [#/volume] in Hospital Urine by Test strip ID Date Data Source [id number] 12/22/2018 06:11:00 AM EDT [facility] Name Value Range Interpretation Code Description Data Jackie rce(s) Supporting Document(s ) Bilirubin. NEGATIVE [place] total Hospital [Presence] in Urine by Test strip ID Date Data Source [id number] 12/22/2018 06:11:00 AM EDT [facility] Name Value Range Interpretation Description Data Sup porting Code Source(s) Document(s ) Urobilinogen 0.2 [place] [Units/volume] mg/dL Hospital in Urine by Test strip ID Date Data Source [id number] 12/22/2018 06:11:00 AM EDT [facility] Name Value Range Interpretation Description Data Sup porting Code Source(s) Document(s ) Ketones NEGATIVE [place] [Mass/volume Hospital ] in Urine by Test strip ID Date Data Source [id number] 12/22/2018 06:11:00 AM EDT [facility] Name Value Range Interpretation Code Description Data Jackie rce(s) Supporting Document(s ) Glucose TRACE [place] [Mass/volume Hospital ] in Urine by Test strip ID Date Data Source [id number] 12/22/2018 06:11:00 AM EDT [facility] Name Value Range Interpretation Code Description Data Jackie rce(s) Supporting Document(s ) Protein 2+ [place] [Presence] Hospital in Urine by Test strip ID Date Data Source [id number] 12/22/2018 06:11:00 AM EDT [facility] Name Value Range Interpretation Code Description Data Jackie rce(s) Supporting Document(s ) pH of Urine 6.5 [place] by Test Hospital strip ID Date Data Source [id number] 12/22/2018 06:11:00 AM EDT [facility] Name Value Range Interpretation Code Description Data Supporting Source(s) Document(s ) Specific 1.012 [place] gravity of Hospital Urine by Test strip ID Date Data Source [id number] 12/22/2018 06:11:00 AM EDT [facility] Name Value Range Interpretation Description Data Sup porting Code Source(s) Document(s ) Clarity in Urine CLEAR [place] by [facility] automated ID Date Data Source [id number] 12/22/2018 06:11:[address] [facility] Value Range Interpretation Code Description Data Jackie rce(s) Supporting Document(s ) Color of YELLOW [place] Urine Hospital ID Date Data Source [id number] 12/22/2018 02:44:[address] [facility] Value Range Interpretation Code Description Data Supporting Source(s) Document(s ) NUCLEATED RBCS 0.0 % [place] (AUTO Hospital DIFF%)DIS ID Date Data Source [id number] 12/22/2018 [facility] Interpretation Description Data Sup porting Code Source(s) Document(s ) Differential AUTOMATED [place] cell count [facility] method - Blood ID Date Data Source [id number] 12/22/2018 02:44:00 AM EDT [facility] Name Value Range Interpretation Description Data Sup porting Code Source(s) Document(s ) Immature 0.05 [place] granulocytes 10*3/uL Hospital [#/volume] in Blood by Automated count ID Date Data Source [id number] 12/22/2018 02:44:[address] [facility] Value Range Interpretation Description Data Sup porting Code Source(s) Document(s ) Basophils 0.04 [place] [#/volume] in 10*3/uL Hospital Blood by Automated count ID Date Data Source [id number] 12/22/2018 02:44:00 AM EDT [facility] Hospital Name Value Range Interpretation Description Data Sup porting Code Source(s) Document(s ) Eosinophils 0.20 [place] [#/volume] in 10*3/uL Hospital Blood by Automated count ID Date Data Source [id number] 12/22/2018 02:44:[address] [facility] Value Range Interpretation Description Data Sup porting Code Source(s) Document(s ) Monocytes 1.47 [place] [#/volume] in 10*3/uL Hospital Blood by Automated count ID Date Data Source [id number] 12/22/2018 02:44:[address] [facility] Value Range Interpretation Description Data Sup porting Code Source(s) Document(s ) Lymphocytes 1.94 [place] [#/volume] in 10*3/uL Hospital Blood by Automated count ID Date Data Source [id number] 12/22/2018 02:44:[address] [facility] Value Range Interpretation Description Data Sup porting Code Source(s) Document(s ) Neutrophils 8.25 [place] [#/volume] in 10*3/uL Hospital Blood by Automated count ID Date Data Source [id number] 12/22/2018 02:44:[address] [facility] Value Range Interpretation Description Data Sup porting Code Source(s) Document(s ) Nucleated 0.0 % [place] erythrocytes/10 Hospital 0 leukocytes [Ratio] in Blood by Automated count ID Date Data Source [id number] 12/22/2018 02:44:[address] [facility] Value Range Interpretation Description Data Sup porting Code Source(s) Document(s ) Immature 0.4 % [place] granulocytes/10 Hospital 0 leukocytes in Blood by Automated count ID Date Data Source [id number] 12/22/2018 02:44:00 AM EDT [facility] Name Value Range Interpretation Description Data Sup porting Code Source(s) Document(s ) Basophils/100 0.3 % [place] leukocytes in Hospital Blood by Automated count ID Date Data Source [id number] 12/22/2018 02:44:00 AM EDT [facility] Name Value Range Interpretation Description Data Sup porting Code Source(s) Document(s ) Eosinophils/100 1.7 % [place] leukocytes in Hospital Blood by Automated count ID Date Data Source [id number] 12/22/2018 02:44:[address] [facility] Value Range Interpretation Description Data Sup porting Code Source(s) Document(s ) Monocytes/100 12.3 % [place] leukocytes in Hospital Blood by Automated count ID Date Data Source [id number] 12/22/2018 02:44:00 AM EDT [facility] Name Value Range Interpretation Description Data Sup porting Code Source(s) Document(s ) Lymphocytes/10 16.2 % [place] 0 leukocytes Hospital in Blood by Automated count ID Date Data Source [id number] 12/22/2018 02:44:[address] [facility] Value Range Interpretation Description Data Sup porting Code Source(s) Document(s ) Neutrophils/10 69.1 % [place] 0 leukocytes Hospital in Blood by Automated count ID Date Data Source [id number] 12/22/2018 01:34:[address] [facility] Value Range Interpretation Description Data Sup porting Code Source(s) Document(s ) Lactate 0.7 [place] [Moles/volum mmol/L Hospital e] in Serum or Plasma ID Date Data Source [id number] 12/21/2018 08:27:00 PM EDT [facility] Name Value Range Interpretation Description Data Sup porting Code Source(s) Document(s ) Bacteria [facility] ID Date Data Source [id number] 12/21/2018 08:27:00 PM EDT [facility] Name Value Range Interpretation Description Data Sup porting Code Source(s) Document(s ) Bacteria [facility]ILLIN [facility] Culture ID Date Data Source [id number] 12/21/2018 11:22:00 AM EDT [facility] Name Value Range Interpretation Description Data Sup porting Code Source(s) Document(s ) GLUCOSE RN Notified [place] [facility] ID Date Data Source [id number] 12/20/2018 07:57:00 PM EDT [facility] Name Value Range Interpretation Description Data Sup porting Code Source(s) Document(s ) Bacteria [facility]ILLIN [facility] Culture ID Date Data Source [id number] 12/20/2018 07:57:00 PM EDT [facility] Name Value Range Interpretation Description Data Sup porting Code Source(s) Document(s ) Hyaline casts 0-5/LPF [place] [#/area] in Hospital Urine sediment by Microscopy low power field ID Date Data Source [id number] 12/20/2018 [facility] Interpretation Description Data Sup porting Code Source(s) Document(s ) Epithelial 2+ [place] cells.squamous [facility] [#/area] in Urine sediment by Microscopy high power field ID Date Data Source [id number] [facility] Description Data Sup porting Code Source(s) Document(s ) Bacteria OCCASIONAL [place] [#/area] in Hospital Urine sediment by Microscopy high power field ID Date Data Source [id number] 12/20/2018 07[facility]57[facility] Value Range Interpretation Description Data Sup porting Code Source(s) Document(s ) Erythrocytes 5-10 [place] [#/area] in /[HPF] Hospital Urine sediment by Microscopy high power field ID Date Data Source [id number] 12/20/2018 07[facility]57[facility] Value Range Interpretation Description Data Sup porting Code Source(s) Document(s ) Leukocytes 10-20 [place] [#/area] in /[HPF] Hospital Urine sediment by Microscopy high power field ID Date Data Source [id number] 12/20/2018 07:57:00 PM [facility] Name Value Range Interpretation Description Data Sup porting Code Source(s) Document(s ) Bacteria METHICILLIN White identified in [facility] Urine by [facility] Culture ID Date Data Source [id number] 12/20/2018 07:57:00 PM [facility] Name Value Range Interpretation Description Data Sup porting Code Source(s) Document(s ) Hyaline casts 0-5/LPF [place] [#/area] in Hospital Urine sediment by Microscopy low power field ID Date Data Source [id number] 12/20/2018 07:57:00 PM [facility] Name Value Range Interpretation Description Data Sup porting Code Source(s) Document(s ) Epithelial 2+ [place] cells.squamous [facility] [#/area] in Urine sediment by Microscopy high power field ID Date Data Source [id number] 12/20/2018 07[facility]57[facility] Value Range Interpretation Description Data Sup porting Code Source(s) Document(s ) Bacteria OCCASIONAL [place] [#/area] in Hospital Urine sediment by Microscopy high power field ID Date Data Source [id number] 12/20/2018 [facility]57[facility] Value Range Interpretation Description Data Sup porting Code Source(s) Document(s ) Erythrocytes 5-10 [place] [#/area] in /[HPF] Hospital Urine sediment by Microscopy high power field ID Date Data Source [id number] 12/20/2018 07:57:00 PM [facility] Name Value Range Interpretation Description Data Sup porting Code Source(s) Document(s ) Leukocytes 10-20 [place] [#/area] in /[HPF] Hospital Urine sediment by Microscopy high power field ID Date Data Source [id number] 12/20/2018 10:02:00 AM [facility] TEST PERFORMED BY [facility] [facility] ULTRA SENSITIVE [facility] CHEMILUMINESCENCE METHOD. Name Value Range Interpretation Description Data Sup porting Code Source(s) Document(s ) Troponin 0.01 [place] I.cardiac ng/mL Hospital [Mass/volume ] in Serum or Plasma ID Date Data Source [id number] 12/20/2018 10:02:00 AM [facility] Name Value Range Interpretation Description Data Sup porting Code Source(s) Document(s ) Procalcitonin 0.4 [place] [Mass/volume] in ng/mL Hospital Serum or Plasma ID Date Data Source [id number] 12/20/2018 10:02:00 AM [facility] Name Value Range Interpretation Code Description Data Jackie rce(s) Supporting Document(s ) Lipase 21 U/L [place] [Enzymatic Hospital activity/vo lume] in Serum or Plasma ID Date Data Source [id number] 12/20/2018 10:02:00 AM [facility] Name Value Range Interpretation Description Data Sup porting Code Source(s) Document(s ) Magnesium 1.3 mg/dL [place] [Mass/volume] Hospital in Serum or Plasma ID Date Data Source [id number] 12/20/2018 10:02:00 AM EDT [facility] Name Value Range Interpretation Description Data Sup porting Code Source(s) Document(s ) Aspartate 24 U/L [place] aminotransferase [place] [Enzymatic Hospital activity/volume] in Serum or Plasma ID Date Data Source [id number] 12/20/2018 10:02:00 AM EDT [facility] Name Value Range Interpretation Description Data Sup porting Code Source(s) Document(s ) Alanine 17 U/L [place] aminotransferase [place] [Enzymatic Hospital activity/volume] in Serum or Plasma ID Date Data Source [id number] 12/20/2018 10:02:00 AM EDT [facility] Name Value Range Interpretation Description Data Sup porting Code Source(s) Document(s ) Alkaline 208 U/L [place] phosphatase Hospital [Enzymatic activity/volume ] in Serum or Plasma ID Date Data Source [id number] 12/20/2018 [facility] Value Range Interpretation Description Data Sup porting Code Source(s) Document(s ) Bilirubin.t 0.5 mg/dL [facility] [Mass/volum e] in Serum or Plasma ID Date Data Source [id number] 12/20/2018 10:02[facility] Name Value Range Interpretation Code Description Data Jackie rce(s) Supporting Document(s ) Albumin/Glob 0.9 [place] ulin [Mass Hospital Ratio] in Serum or Plasma ID Date Data Source [id number] 12/20/2018 10:02:00 AM EDT [facility] Name Value Range Interpretation Description Data Sup porting Code Source(s) Document(s ) Albumin 3.8 g/dL [place] [Mass/volume Hospital ] in Serum or Plasma ID Date Data Source [id number] 12/20/2018 10:02:00 AM [facility] Name Value Range Interpretation Description Data Sup porting Code Source(s) Document(s ) Protein 8.1 g/dL [place] [Mass/volume [facility] ] in Serum or Plasma ID Date Data Source [id number] 12/20/2018 10:02:00 AM [facility] THERAPEUTIC RANGES:UNFRACTIONATED HEPARI N THERAPY: 60-90 SECONDSARGATROBAN THERAPY: 49-99 SECONDS Name Value Range Interpretation Description Data Sup porting Code Source(s) Document(s ) aPTT in 33.5 s [place] Platelet poor [facility] plasma by Coagulation assay ID Date Data Source [id number] 12/20/2018 10:02:00 AM [facility] THERAPEUTIC RANGE FOR STANDARD ORALANTIC OAGULANT THERAPY: 2.0-3.0THERAPEUTIC RANGE FOR HIGH DOSE ORALANTICOAGULANT THERAPY (MECHANICAL HEARTVALVE REPLACEMENT): 2.5-3.5 Name Value Range Interpretation Description Data Sup porting Code Source(s) Document(s ) INR in Platelet 1.3 [place] poor plasma by Hospital Coagulation assay ID Date Data Source [id number] 12/20/2018 10:02:00 AM [facility] Name Value Range Interpretation Description Data Sup porting Code Source(s) Document(s ) PT panel - 15.0 s [place] Platelet poor [facility] plasma by Coagulation assay ID Date Data Source [id number] 12/20/2018 10:02:00 AM [facility] Name Value Range Interpretation Code Description Data Jackie rce(s) Supporting Document(s ) Cells 100 [facility] Total [#] in Blood ID Date Data Source [id number] 12/20/2018 10:02:00 AM EDT [facility] Name Value Range Interpretation Code Description Data Supporting Source(s) Document(s ) PLATELET NORMAL [facility] Hospital ID Date Data Source [id number] 12/20/2018 10:02:00 AM EDT [facility] Name Value Range Interpretation Code Description Data Jackie rce(s) Supporting Document(s ) LANI CELLS 1+ [facility] ID Date Data Source [id number] 12/20/2018 10:02:[address] [facility] Value Range Interpretation Code Description Data Jackie rce(s) Supporting Document(s ) TARGET CELLS OCC [facility] ID Date Data Source [id number] 12/20/2018 10:02:[address] [facility] Value Range Interpretation Code Description Data Jackie rce(s) Supporting Document(s ) HYPOCHROMIA OCC [facility] ID Date Data Source [id number] 12/20/2018 10:02:[address] [facility] Value Range Interpretation Code Description Data Jackie rce(s) Supporting Document(s ) MICROCYTOSIS 2+ [facility] ID Date Data Source [id number] 12/20/2018 10:02:[address] [facility] Value Range Interpretation Description Data Sup porting Code Source(s) Document(s ) POIKILOCYTOSIS 1+ [facility] ID Date Data Source [id number] 12/20/2018 10:02:[address] [facility] Value Range Interpretation Code Description Data Jackie rce(s) Supporting Document(s ) ANISOCYTOSIS 1+ [facility] ID Date Data Source [id number] 12/20/2018 10:02:00 AM EDT [facility] Name Value Range Interpretation Description Data Sup porting Code Source(s) Document(s ) Basophils 0.26 [place] [#/volume] in 10*3/uL Hospital Blood by Manual count ID Date Data Source [id number] 12/20/2018 10:02:[address] [facility] Value Range Interpretation Description Data Sup porting Code Source(s) Document(s ) Monocytes 1.31 [place] [#/volume] in 10*3/uL Hospital Blood by Manual count ID Date Data Source [id number] 12/20/2018 10:02:[address] [facility] Value Range Interpretation Description Data Sup porting Code Source(s) Document(s ) Lymphocytes 4.18 [place] [#/volume] in 10*3/uL Hospital Blood by Manual count ID Date Data Source [id number] 12/20/2018 10:02:[address] [facility] Value Range Interpretation Description Data Sup porting Code Source(s) Document(s ) Neutrophils 20.36 [place] [#/volume] in 10*3/uL Hospital Blood by Manual count ID Date Data Source [id number] 12/20/2018 10:02:[address] [facility] Value Range Interpretation Description Data Sup porting Code Source(s) Document(s ) Basophils/100 1 % [place] leukocytes in Hospital Blood by Manual count ID Date Data Source [id number] 12/20/2018 10:02:[address] [facility] Value Range Interpretation Description Data Sup porting Code Source(s) Document(s ) Monocytes/100 5 % [place] leukocytes in Hospital Blood by Manual count ID Date Data Source [id number] 12/20/2018 10:02:00 AM EDT [facility] Name Value Range Interpretation Description Data Sup porting Code Source(s) Document(s ) Variant 1 % [place] lymphocytes/100 Hospital leukocytes in Blood by Manual count ID Date Data Source [id number] 12/20/2018 10:02:[address] [facility] Value Range Interpretation Description Data Sup porting Code Source(s) Document(s ) Lymphocytes/100 15 % [place] leukocytes in Hospital Blood by Manual count ID Date Data Source [id number] 12/20/2018 10:02:00 AM EDT [facility] Name Value Range Interpretation Description Data Sup porting Code Source(s) Document(s ) Neutrophils/100 78 % [place] leukocytes in Hospital Blood by Manual count ID Date Data Source [id number] 12/20/2018 10:02:[address] [facility] Value Range Interpretation Description Data Sup porting Code Source(s) Document(s ) Procalcitonin 0.4 [place] [Mass/volume] in ng/mL Hospital Serum or Plasma ID Date Data Source [id number] 12/20/2018 10:02:00 AM [facility] Value Range Interpretation Code Description Data Jackie rce(s) Supporting Document(s ) Lipase 21 U/L [place] [Enzymatic Hospital activity/vo lume] in Serum or Plasma ID Date Data Source [id number] 12/20/2018 [facility] Value Range Interpretation Description Data Sup porting Code Source(s) Document(s ) Magnesium 1.3 mg/dL [place] [Mass/volume] Hospital in Serum or Plasma ID Date Data Source [id number] 12/20/2018 10:02:00 AM [facility] THERAPEUTIC RANGES:UNFRACTIONATED HEPARI N THERAPY: 60-90 SECONDSARGATROBAN THERAPY: 49-99 SECONDS Name Value Range Interpretation Description Data Sup porting Code Source(s) Document(s ) aPTT in 33.5 s [place] Platelet poor [facility] plasma by Coagulation assay ID Date Data Source [id number] 12/20/2018 10:02:00 AM EDT [facility] Name Value Range Interpretation Code Description Data Jackie rce(s) Supporting Document(s ) Cells 100 [facility] Total [#] in Blood ID Date Data Source [id number] 12/20/2018 10:02:[address] [facility] Value Range Interpretation Code Description Data Supporting Source(s) Document(s ) PLATELET NORMAL [facility] ID Date Data Source [id number] 12/20/2018 10:02:00 AM EDT [facility] Name Value Range Interpretation Code Description Data Jackie rce(s) Supporting Document(s ) ALNI CELLS 1+ [facility] ID Date Data Source [id number] 12/20/2018 10:02:00 AM EDT [facility] Name Value Range Interpretation Code Description Data Jackie rce(s) Supporting Document(s ) TARGET CELLS [facility] ID Date Data Source [id number] 12/20/2018 10:02:00 AM EDT [facility] Name Value Range Interpretation Code Description Data Jackie rce(s) Supporting Document(s ) HYPOCHROMIA [facility] ID Date Data Source [id number] 12/20/2018 10:02:00 AM EDT [facility] Name Value Range Interpretation Code Description Data Jackie rce(s) Supporting Document(s ) MICROCYTOSIS 2+ [facility] ID Date Data Source [id number] 12/20/2018 10:02:00 AM EDT [facility] Name Value Range Interpretation Description Data Sup porting Code Source(s) Document(s ) POIKILOCYTOSIS 1+ [facility] ID Date Data Source [id number] 12/20/2018 10:02:[address] [facility] Value Range Interpretation Code Description Data Jackie rce(s) Supporting Document(s ) ANISOCYTOSIS 1+ [facility] ID Date Data Source [id number] 12/20/2018 10:02:[address] [facility] Value Range Interpretation Description Data Sup porting Code Source(s) Document(s ) Basophils 0.26 [place] [#/volume] in 10*3/uL Hospital Blood by Manual count ID Date Data Source [id number] 12/20/2018 10:02:[address] [facility] Value Range Interpretation Description Data Sup porting Code Source(s) Document(s ) Monocytes 1.31 [place] [#/volume] in 10*3/uL Hospital Blood by Manual count ID Date Data Source [id number] 12/20/2018 10:02:[address] [facility] Value Range Interpretation Description Data Sup porting Code Source(s) Document(s ) Lymphocytes 4.18 [place] [#/volume] in 10*3/uL Hospital Blood by Manual count ID Date Data Source [id number] 12/20/2018 10:02:00 AM EDT [facility] Name Value Range Interpretation Description Data Sup porting Code Source(s) Document(s ) Neutrophils 20.36 [place] [#/volume] in 10*3/uL Hospital Blood by Manual count ID Date Data Source [id number] 12/20/2018 10:02:[address] [facility] Value Range Interpretation Description Data Sup porting Code Source(s) Document(s ) Basophils/100 1 % [place] leukocytes in Hospital Blood by Manual count ID Date Data Source [id number] 12/20/2018 10:02:00 AM EDT [facility] Name Value Range Interpretation Description Data Sup porting Code Source(s) Document(s ) Monocytes/100 5 % [place] leukocytes in Hospital Blood by Manual count ID Date Data Source [id number] 12/20/2018 10:02:00 AM EDT [facility] Name Value Range Interpretation Description Data Sup porting Code Source(s) Document(s ) Variant 1 % [place] lymphocytes/100 Hospital leukocytes in Blood by Manual count ID Date Data Source [id number] 12/20/2018 10:02:[address] [facility] Value Range Interpretation Description Data Sup porting Code Source(s) Document(s ) Lymphocytes/100 15 % [place] leukocytes in Hospital Blood by Manual count ID Date Data Source [id number] 12/20/2018 10:02:[address] [facility] Value Range Interpretation Description Data Sup porting Code Source(s) Document(s ) Neutrophils/100 78 % [place] leukocytes in Hospital Blood by Manual count ID Date Data Source [id number] 12/20/2018 09:49:[address] [facility] Value Range Interpretation Description Data Sup porting Code Source(s) Document(s ) Bacteria METHICILLIN [place] identified in RES STAPH [place] Blood by [facility] Culture ID Date Data Source [id number] 12/18/2018 02:58:[address] [facility] Value Range Interpretation Description Data Sup porting Code Source(s) Document(s ) Bacteria CORYNEBACTERIUM [facility] identified SPECIES [place] in Wound by Hospital Culture Bacteria METHICILLIN RES [place] identified STAPH [facility] [place] in Wound by Hospital Culture ID Date Data Source [id number] 12/18/2018 06:27:00 AM [facility] S Iron Worker:RUBINA FIDELIA Name Value Range Interpretation Description Data Sup porting Code Source(s) Document(s ) Glucose 177 mg/dL [place] [Mass/volume] Hospital in Capillary blood by Glucometer ID Date Data Source [id number] 12/17/2018 [facility] Value Range Interpretation Description Data Sup porting Code Source(s) Document(s ) GLUCOSE Pre Meal [address] ID Date Data Source [id number] 12/17/2018 11:03:00 AM [facility] Value Range Interpretation Description Data Sup porting Code Source(s) Document(s ) GLUCOSE Pre Meal [address] ID Date Data Source [id number] 12/17/2018 [facility]03[facility] Name Value Range Interpretation Description Data Sup porting Code Source(s) Document(s ) GLUCOSE RN Notified [facility] ID Date Data Source [id number] 12/17/2018 08:45:00 [facility] [facility] Name Value Range Interpretation Description Data Sup porting Code Source(s) Document(s ) Calcium 8.4 mg/dL [place] [Mass[facility]volume [facility] ] in Serum or Plasma ID Date Data Source [id number] 12/17[facility]2018 [facility] Value Range Interpretation Code Description Data Jackie rce(s) Supporting Document(s ) Urea 13.8 [place] nitrogen/Cre [facility] atinine [Mass Ratio] in Serum or Plasma ID Date Data Source [id number] 12/17/2018 [facility] Name Value Range Interpretation Description Data Sup porting Code Source(s) Document(s ) Creatinine 0.8 mg/dL [place] [Mass/volume] Hospital in Serum or Plasma ID Date Data Source [id number] 12/17/2018 08:45:00 AM EDT [facility] Name Value Range Interpretation Description Data Sup porting Code Source(s) Document(s ) Urea 11 mg/dL [place] nitrogen Hospital [Mass/volume ] in Serum or Plasma ID Date Data Source [id number] 12/17/2018 08:45:00 AM EDT [facility] Name Value Range Interpretation Code Description Data Jackie rce(s) Supporting Document(s ) Anion gap in 12 [place] Serum or [facility] Plasma ID Date Data Source [id number] 12/17/2018 08:45:00 AM EDT [facility] Name Value Range Interpretation Description Data Sup porting Code Source(s) Document(s ) Carbon 25 mmol/L [place] dioxide, Hospital total [Moles/volu me] in Serum or Plasma ID Date Data Source [id number] 12/17/2018 08:45:00 AM EDT [facility] Name Value Range Interpretation Description Data Sup porting Code Source(s) Document(s ) Chloride 99 mmol/L [place] [Moles/volum Hospital e] in Serum or Plasma ID Date Data Source [id number] 12/17/2018 08:45:00 AM EDT [facility] Name Value Range Interpretation Description Data Sup porting Code Source(s) Document(s ) Potassium 4.0 [place] [Moles/volume mmol/L Hospital ] in Serum or Plasma ID Date Data Source [id number] 12/17/2018 08:45:00 AM EDT [facility] Name Value Range Interpretation Description Data Sup porting Code Source(s) Document(s ) Sodium 132 mmol/L [place] [Moles/[facility]] in Serum or Plasma ID Date Data Source [id number] [facility] Interpret[facility] Description Data Sup porting Code Source(s) Document(s ) Glucose 198 mg/dL [place] [[facility] ] in Serum or Plasma ID Date Data Source [id number] 12/17/2018 [facility] Interpretation Description Data Sup porting Code Source(s) Document(s ) Differential AUTOMATED [place] cell count [facility] method - Blood ID Date Data Source [id number] 12/17[facility] Interpretation Description Data Sup porting Code Source(s) Document(s ) Immature 0.06 [place] granulocytes 10*3/uL Hospital [#/volume] in Blood by Automated count ID Date Data Source [id number] 12/17/2018 08:45:00 AM [facility] Value Range Interpretation Description Data Sup porting Code Source(s) Document(s ) Basophils 0.04 [place] [#/volume] in 10*3/uL Hospital Blood by Automated count ID Date Data Source [id number] 12/17/2018 [facility] Interpretation Description Data Sup porting Code Source(s) Document(s ) Eosinophils 0.25 [place] [#/volume] in 10*3/uL Hospital Blood by Automated count ID Date Data Source [id number] 12/17/2018 [facility] Interpretation Description Data Sup porting Code Source(s) Document(s ) Monocytes 1.42 [place] [#/volume] in 10*3/uL Hospital Blood by Automated count ID Date Data Source [id number] 12/17/2018 08:45:[address] [facility] Value Range Interpretation Description Data Sup porting Code Source(s) Document(s ) Lymphocytes 2.54 [place] [#/volume] in 10*3/uL Hospital Blood by Automated count ID Date Data Source [id number] 12/17/2018 08:45:[address] [facility] Value Range Interpretation Description Data Sup porting Code Source(s) Document(s ) Neutrophils 8.07 [place] [#/volume] in 10*3/uL [facility] Blood by Automated count ID Date Data Source [id number] 12/17/2018 08:45:[address] [facility] Value Range Interpretation Description Data Sup porting Code Source(s) Document(s ) Nucleated 0.0 % [place] erythrocytes/10 Hospital 0 leukocytes [Ratio] in Blood by Automated count ID Date Data Source [id number] 12/17/2018 08:45:[address] [facility] Value Range Interpretation Description Data Sup porting Code Source(s) Document(s ) Immature 0.5 % [place] granulocytes/10 Hospital 0 leukocytes in Blood by Automated count ID Date Data Source [id number] 12/17/2018 08:45:[address] [facility] Value Range Interpretation Description Data Sup porting Code Source(s) Document(s ) Basophils/100 0.3 % [place] leukocytes in Hospital Blood by Automated count ID Date Data Source [id number] 12/17/2018 08:45:[address] [facility] Value Range Interpretation Description Data Sup porting Code Source(s) Document(s ) Eosinophils/100 2.0 % [place] leukocytes in Hospital Blood by Automated count ID Date Data Source [id number] 12/17/2018 08:45:00 AM EDT [facility] Name Value Range Interpretation Description Data Sup porting Code Source(s) Document(s ) Monocytes/100 11.5 % [place] leukocytes in Hospital Blood by Automated count ID Date Data Source [id number] 12/17/2018 08:45:00 AM EDT [facility] Name Value Range Interpretation Description Data Sup porting Code Source(s) Document(s ) Lymphocytes/10 20.5 % [place] 0 leukocytes Hospital in Blood by Automated count ID Date Data Source [id number] 12/17/2018 08:45:00 AM EDT [facility] Name Value Range Interpretation Description Data Sup porting Code Source(s) Document(s ) Neutrophils/10 65.2 % [place] 0 leukocytes Hospital in Blood by Automated count ID Date Data Source [id number] 12/17/2018 08:45:00 AM EDT [facility] Name Value Range Interpretation Description Data Sup porting Code Source(s) Document(s ) Platelet mean 10.3 fL [place] volume Hospital [Entitic volume] in Blood by Automated count ID Date Data Source [id number] 12/17/2018 08:45:00 AM EDT [facility] Name Value Range Interpretation Description Data Sup porting Code Source(s) Document(s ) Platelets 386 [place] [#/volume] in 10*3/uL Hospital Blood by Automated count ID Date Data Source [id number] 12/17/2018 08:45:[address] [facility] Value Range Interpretation Description Data Sup porting Code Source(s) Document(s ) Erythrocyte 20.1 % [place] distribution Hospital width [Ratio] by Automated count ID Date Data Source [id number] 12/17/2018 08:45:00 AM [facility] Value Range Interpretation Description Data Sup porting Code Source(s) Document(s ) Erythrocyte mean 31.9 [place] corpuscular g/dL Hospital hemoglobin concentration [Mass/volume] by Automated count ID Date Data Source [id number] 12/17/2018 08:45:00 AM [facility] Value Range Interpretation Description Data Sup porting Code Source(s) Document(s ) Erythrocyte 24.6 pg [facility] corpuscular hemoglobin [Entitic mass] by Automated count ID Date Data Source [id number] 12/17/2018 08:45:00 AM [facility] Value Range Interpretation Description Data Sup porting Code Source(s) Document(s ) Erythrocyte 76.9 fL [facility] corpuscular volume [Entitic volume] by Automated count ID Date Data Source [id number] 12/17/2018 08:45:00 AM [facility] Value Range Interpretation Description Data Sup porting Code Source(s) Document(s ) Hematocrit 26.3 % [place] [Volume Hospital Fraction] of Blood by Automated count ID Date Data Source [id number] 12/17/2018 08:45:00 AM [facility] Value Range Interpretation Description Data Sup porting Code Source(s) Document(s ) Hemoglobin 8.4 g/dL [place] [Mass/volume] Hospital in Blood ID Date Data Source [id number] 12/17/2018 08:45:00 AM [facility] Value Range Interpretation Description Data Sup porting Code Source(s) Document(s ) Erythrocytes 3.42 [place] [#/volume] in 10*6/uL Hospital Blood by Automated count ID Date Data Source [id number] 12/17/2018 08:45:00 AM [facility] Name Value Range Interpretation Description Data Sup porting Code Source(s) Document(s ) Leukocytes 12.4 [place] [#/volume] in 10*3/uL Hospital Blood by Automated count ID Date Data Source [id number] 12/16/2018 08:01:00 AM [facility] Name Value Range Interpretation Description Data Sup porting Code Source(s) Document(s ) Phosphate 2.8 mg/dL [place] [Mass/volume] Hospital in Serum or Plasma ID Date Data Source [id number] 12/16/2018 08:01:00 AM [facility] Value Range Interpretation Description Data Sup porting Code Source(s) Document(s ) Bilirubin.d < 0.1 [place] irect mg/dL Hospital [Mass/volum e] in Serum or Plasma ID Date Data Source [id number] 12/16/2018 08:01:00 AM [facility] UNITS ARE IN ml/min/1.73m2.IF PATIENT IS -CUBAN, MULTIPLY REPORTED RESULT BY 1.21. Name Value Range Interpretation Description Data Sup porting Code Source(s) Document(s ) Glomerular > 60 [place] filtration mL/min Hospital rate/1.73 sq M.predicted [Volume Rate/Area] in Serum or Plasma by Creatinine-bas ed formula (MDRD) ID Date Data Source [id number] 12/16/2018 08:01:00 AM [facility] Name Value Range Interpretation Description Data Sup porting Code Source(s) Document(s ) Phosphate 2.8 mg/dL [place] [Mass/volume] Hospital in Serum or Plasma ID Date Data Source [id number] 12/16/2018 08:01:00 AM [facility] Name Value Range Interpretation Description Data Sup porting Code Source(s) Document(s ) Magnesium 1.3 mg/dL [place] [Mass/volume] Hospital in Serum or Plasma ID Date Data Source [id number] 12/16/2018 08:01:00 AM EDT [facility] Name Value Range Interpretation Description Data Sup porting Code Source(s) Document(s ) Aspartate 15 U/L [place] aminotransferase [place] [Enzymatic Hospital activity/volume] in Serum or Plasma ID Date Data Source [id number] 12/16/2018 08:01:00 AM EDT [facility] Name Value Range Interpretation Description Data Sup porting Code Source(s) Document(s ) Alanine 15 U/L [place] aminotransferase [place] [Enzymatic Hospital activity/volume] in Serum or Plasma ID Date Data Source [id number] 12/16/2018 08:01:[address] [facility] Value Range Interpretation Description Data Sup porting Code Source(s) Document(s ) Alkaline 145 U/L [place] phosphatase Hospital [Enzymatic activity/volume ] in Serum or Plasma ID Date Data Source [id number] 12/16/2018 08:01:00 AM [facility] Value Range Interpretation Description Data Sup porting Code Source(s) Document(s ) Bilirubin.d < 0.1 [place] irect mg/dL Hospital [Mass/volum e] in Serum or Plasma ID Date Data Source [id number] 12/16/2018 08:01:00 AM EDT [facility] Name Value Range Interpretation Description Data Sup porting Code Source(s) Document(s ) Bilirubin.t 0.2 mg/dL [facility] Hospital [Mass/volum e] in Serum or Plasma ID Date Data Source [id number] 12/16[facility]2018 [facility] Interpretation Code Description Data Jackie rce(s) Supporting Document(s ) Albumin/Glob 1.0 [place] ulin [Mass Hospital Ratio] in Serum or Plasma ID Date Data Source [id number] 12/16/2018 08:01:00 AM [facility] Name Value Range Interpretation Description Data Sup porting Code Source(s) Document(s ) Albumin 3.3 g/dL [place] [Mass/volume Hospital ] in Serum or Plasma ID Date Data Source [id number] 12/16/2018 08:01:00 AM EDT [facility] Name Value Range Interpretation Description Data Sup porting Code Source(s) Document(s ) Protein 6.6 g/dL [place] [Mass/volume Hospital ] in Serum or Plasma ID Date Data Source [id number] 12/16/2018 08:01:00 AM [facility] UNITS ARE IN ml/min/1.73m2.IF PATIENT IS -CUBAN, MULTIPLY REPORTED RESULT BY 1.21. Name Value Range Interpretation Description Data Sup porting Code Source(s) Document(s ) Glomerular > 60 [place] filtration mL/min Hospital rate/1.73 sq M.predicted [Volume Rate/Area] in Serum or Plasma by Creatinine-bas ed formula (MDRD) ID Date Data Source [id number] 12/16/2018 08:01:00 AM [facility] Name Value Range Interpretation Code Description Data Supporting Source(s) Document(s ) NUCLEATED RBCS 0.0 % [place] (AUTO Hospital DIFF%)DIS ID Date Data Source [id number] 12/15/2018 10:52:00 AM [facility] TEST PERFORMED BY [employer] [facility] SENSIT[employer] [facility] CHEMILUMINESCENCE METHOD. Name Value Range Interpretation Description Data Sup porting Code Source(s) Document(s ) Troponin 0.01 [place] I.cardiac ng/mL Hospital [Mass/volume ] in Serum or Plasma ID Date Data Source [id number] 12/12/2018 07:31:00 AM [facility] Name Value Range Interpretation Description Data Sup porting Code Source(s) Document(s ) Bacteria No growth [place] identified in Hospital Blood by Culture ID Date Data Source [id number] 12/11/2018 06:54:00 AM [facility] Name Value Range Interpretation Description Data Sup porting Code Source(s) Document(s ) Procalcitonin 0.2 [place] [Mass/volume] in ng/mL Hospital Serum or Plasma ID Date Data Source [id number] 12/07/2018 07:11:00 PM [facility] Name Value Range Interpretation Description Data Sup porting Code Source(s) Document(s ) MEAN 80.[address] [facility] VOLUME ID Date Data Source [id number] 12/07/2018 07:11:00 PM [facility] Name Value Range Interpretation Description Data Sup porting Code Source(s) Document(s ) MEAN 80.[address] [facility] VOLUME ID Date Data Source [id number] 12/07/2018 08:40:00 AM [facility] ADA RECOMMENDATIONS: NON-DIABETES: 4.0-6.0% CONTROLLED DIABETES: 6.0-8.0% UNCONTROLLED DIABETE S: UP TO 20%RECOMMENDED ADA RESULT FOR THERAPY: HEMOGLOBIN A1C RESULT LESS FRANK N 7%.NOTE: METHOD CHANGE EFFECTIVE 11/06/14. Name Value Range Interpretation Description Data Sup porting Code Source(s) Document(s ) Hemoglobin 7.8 % [place] A1c/Hemoglobin. Hospital total in Blood ID Date Data Source [id number] 12/07/2018 08:40:00 AM [facility] ADA RECOMMENDATIONS: NON-DIABETES: 4.0-6.0% CONTROLLED DIABETES: 6.0-8.0% UNCONTROLLED DIABETE S: UP TO 20%RECOMMENDED ADA RESULT FOR THERAPY: HEMOGLOBIN A1C RESULT LESS FRANK N 7%.NOTE: METHOD CHANGE EFFECTIVE 11/06/14. Name Value Range Interpretation Description Data Sup porting Code Source(s) Document(s ) Hemoglobin 7.8 % [place] A1c/Hemoglobin. Hospital total in Blood ID Date Data Source [id number] 12/06/2018 02:05:00 PM EDT [facility] CUT-OFF >= 200 NG/ML. Name Value Range Interpretation Description Data Sup porting Code Source(s) Document(s ) BENZODIAZEPINES NEGATIVE [facility] (UR) [place] [facility] ID Date Data Source [id number] 12/06/2018 02:05:00 PM EDT [facility] CUT-OFF >= 200 NG/ML. Name Value Range Interpretation Description Data Sup porting Code Source(s) Document(s ) BARBITURATES NEGATIVE [place] (UR) Hospital ID Date Data Source [id number] 12/06/2018 02:05:00 PM EDT [facility] CUT-OFF >= 1000 NG/ML. Name Value Range Interpretation Description Data Sup porting Code Source(s) Document(s ) AMPHETAMINES NEGATIVE [place] (UR) Hospital ID Date Data Source [id number] 12/06/2018 02:05:00 PM [facility] CUT-OFF >= 25 NG/ML.THE FINDINGS OF [...] rce(s) Supporting Document(s ) PCP (UR) NEGATIVE [facility] ID Date Data Source [id number] 12/06/2018 02:05:00 PM EDT [facility] CUT-OFF >= 50 NG/ML. Name Value Range Interpretation Code Description Data Jackie rce(s) Supporting Document(s ) THC (UR) NEGATIVE [facility] ID Date Data Source [id number] 12/06/2018 02:05:00 PM EDT [facility] CUT-OFF >= 300 NG/ML. Name Value Range Interpretation Description Data Sup porting Code Source(s) Document(s ) OPIATES (UR) POSITIVE [facility] ID Date Data Source [id number] 12/06/2018 02:05:00 PM EDT [facility] CUT-OFF >= 300 NG/ML. Name Value Range Interpretation Description Data Sup porting Code Source(s) Document(s ) COCAINE (UR) NEGATIVE [facility] ID Date Data Source [id number] 12/06/2018 02:05:00 PM EDT [facility] CUT-OFF >= 200 NG/ML. Name Value Range Interpretation Description Data Sup porting Code Source(s) Document(s ) BENZODIAZEPINES NEGATIVE [facility] (UR) [facility] ID Date Data Source [id number] 12/06/2018 02:05:00 PM EDT [facility] CUT-OFF >= 200 NG/ML. Name Value Range Interpretation Description Data Sup porting Code Source(s) Document(s ) BARBITURATES NEGATIVE [place] (UR) Hospital ID Date Data Source [id number] 12/06/2018 02:05:00 PM EDT [facility] CUT-OFF >= 1000 NG/ML. Name Value Range Interpretation Description Data Sup porting Code Source(s) Document(s ) AMPHETAMINES NEGATIVE [place] (UR) Hospital ID Date Data Source [id number] 12/06/2018 02:05:00 PM EDT [facility] CUT-OFF >= 25 NG/ML.THE FINDINGS OF [...] rce(s) Supporting Document(s ) PCP (UR) NEGATIVE [facility] ID Date Data Source [id number] 12/06/2018 02:05:00 PM EDT [facility] CUT-OFF >= 50 NG/ML. Name Value Range Interpretation Code Description Data Jackie rce(s) Supporting Document(s ) THC (UR) NEGATIVE [facility] ID Date Data Source [id number] 12/06/2018 02:05:00 PM EDT [facility] CUT-OFF >= 300 NG/ML. Name Value Range Interpretation Description Data Sup porting Code Source(s) Document(s ) OPIATES (UR) POSITIVE [facility] ID Date Data Source [id number] 12/06/2018 02:05:00 PM EDT [facility] CUT-OFF >= 300 NG/ML. Name Value Range Interpretation Description Data Sup porting Code Source(s) Document(s ) COCAINE (UR) NEGATIVE [facility] ID Date Data Source [id number] 12/06/2018 01:57:00 PM [facility] Name Value Range Interpretation Description Data Sup porting Code Source(s) Document(s ) Erythrocytes 3-5 [place] [#/area] in /[HPF] Hospital Urine sediment by Microscopy high power field ID Date Data Source [id number] 12/06[facility]2018 [facility] Value [facility] Interpretation Description Data Sup porting Code Source(s) Document(s ) Leukocytes 0-3 [place] [#/area] in /[HPF] Hospital Urine sediment by Microscopy high power field ID Date Data Source [id number] 12/06/2018 01:57:00 PM EDT [facility] Name Value Range Interpretation Description Data Sup porting Code Source(s) Document(s ) Leukocyte NEGATIVE [place] esterase Hospital [Presence] in Urine by Test strip ID Date Data Source [id number] 12/06/2018 01:57:00 PM EDT [facility] Name Value Range Interpretation Description Data Sup porting Code Source(s) Document(s ) URINE NEGATIVE [place] NITRITES Hospital ID Date Data Source [id number] 12/06/2018 01:57:00 PM EDT [facility] Name Value Range Interpretation Description Data Sup porting Code Source(s) Document(s ) Erythrocytes TRACE [place] [#/volume] in Hospital Urine by Test strip ID Date Data Source [id number] 12/06/2018 01:57:00 PM EDT [facility] Name Value Range Interpretation Code Description Data Jackie rce(s) Supporting Document(s ) Bilirubin. NEGATIVE [place] total Hospital [Presence] in Urine by Test strip ID Date Data Source [id number] 12/06/2018 01:57:00 PM EDT [facility] Name Value Range Interpretation Description Data Sup porting Code Source(s) Document(s ) Urobilinogen 0.2 [place] [Units/volume] mg/dL Hospital in Urine by Test strip ID Date Data Source [id number] 12/06/2018 01:57:[address] [facility] Value Range Interpretation Code Description Data Jackie rce(s) Supporting Document(s ) Ketones TRACE [place] [Mass/volume Hospital ] in Urine by Test strip ID Date Data Source [id number] 12/06/2018 01:57:00 PM EDT [facility] Name Value Range Interpretation Code Description Data Jackie rce(s) Supporting Document(s ) Glucose 2+ [place] [Mass/volume Hospital ] in Urine by Test strip ID Date Data Source [id number] 12/06/2018 01:57:00 PM EDT [facility] Name Value Range Interpretation Code Description Data Jackie rce(s) Supporting Document(s ) Protein 3+ [place] [Presence] Hospital in Urine by Test strip ID Date Data Source [id number] 12/06/2018 01:57:00 PM EDT [facility] Name Value Range Interpretation Code Description Data Jackie rce(s) Supporting Document(s ) pH of Urine 7.0 [place] by Test Hospital strip ID Date Data Source [id number] 12/06/2018 01:57:[address] [facility] Value Range Interpretation Code Description Data Supporting Source(s) Document(s ) Specific 1.022 [place] gravity of Hospital Urine by Test strip ID Date Data Source [id number] 12/06/2018 01:57:00 PM EDT [facility] Name Value Range Interpretation Description Data Sup porting Code Source(s) Document(s ) Clarity in Urine CLEAR [place] by Refractometry Hospital automated ID Date Data Source [id number] 12/06/2018 01:57:[address] [facility] Value Range Interpretation Code Description Data Jackie rce(s) Supporting Document(s ) Color of YELLOW [place] Urine Hospital ID Date Data Source [id number] 12/06/2018 09:24:00 AM EDT [facility] Name Value Range Interpretation Description Data Sup porting Code Source(s) Document(s ) Lactate 0.8 [place] [Moles/volum mmol/L Hospital e] in Serum or Plasma ID Date Data Source [id number] 12/06/2018 07:51:00 AM EDT [facility] Name Value Range Interpretation Code Description Data Jackie rce(s) Supporting Document(s ) Lipase 15 U/L [place] [Enzymatic [facility] activity/vo lume] in Serum or Plasma ID Date Data Source [id number] 12/06/2018 07:51:[address] [facility] Value Range Interpretation Code Description Data Jackie rce(s) Supporting Document(s ) Cells 100 [place] Counted Hospital Total [#] in Blood ID Date Data Source [id number] 12/06/2018 07:51:[address] [facility] Value Range Interpretation Code Description Data Supporting Source(s) Document(s ) PLATELET NORMAL [facility] ID Date Data Source [id number] 12/06/2018 07:51:[address] [facility] Value Range Interpretation Code Description Data Jackie rce(s) Supporting Document(s ) HYPOCHROMIA 2+ [facility] ID Date Data Source [id number] 12/06/2018 07:51:[address] [facility] Value Range Interpretation Code Description Data Jackie rce(s) Supporting Document(s ) MICROCYTOSIS 1+ [facility] ID Date Data Source [id number] 12/06/2018 07:51:[address] [facility] Value Range Interpretation Code Description Data Jackie rce(s) Supporting Document(s ) ANISOCYTOSIS 2+ [facility] ID Date Data Source [id number] 12/06/2018 07:51:[address] [facility] Value Range Interpretation Description Data Sup porting Code Source(s) Document(s ) Monocytes 0.28 [place] [#/volume] in 10*3/uL Hospital Blood by Manual count ID Date Data Source [id number] 12/06/2018 07:51:00 AM EDT [facility] Name Value Range Interpretation Description Data Sup porting Code Source(s) Document(s ) Lymphocytes 1.11 [place] [#/volume] in 10*3/uL Hospital Blood by Manual count ID Date Data Source [id number] 12/06/2018 07:51:[address] [facility] Value Range Interpretation Description Data Sup porting Code Source(s) Document(s ) Neutrophils 12.51 [place] [#/volume] in 10*3/uL Hospital Blood by Manual count ID Date Data Source [id number] 12/06/2018 07:51:[address] [facility] Value Range Interpretation Description Data Sup porting Code Source(s) Document(s ) Monocytes/100 2 % [place] leukocytes in Hospital Blood by Manual count ID Date Data Source [id number] 12/06/2018 07:51:[address] [facility] Value Range Interpretation Description Data Sup porting Code Source(s) Document(s ) Lymphocytes/100 8 % [place] leukocytes in Hospital Blood by Manual count ID Date Data Source [id number] 12/06/2018 07:51:[address] [facility] Value Range Interpretation Description Data Sup porting Code Source(s) Document(s ) Neutrophils/100 90 % [place] leukocytes in Hospital Blood by Manual count ID Date Data Source [id number] 12/06/2018 05:47:[address] [facility] Value Range Interpretation Description Data Sup porting Code Source(s) Document(s ) Methicillin PATIENT IS [place] resistant PRESUMED [place] St[facility] POSITIVE FOR Hospital aureus (MRSA) MRSA DNA [Presence] COLONIZATION in Unspecified specimen by Probe and target amplification method Methicillin MRSA TARGET [facility] resistant DNA DETECTED [place] [facility] aureus (MRSA) DNA [Presence] in Unspecified specimen by Probe and target amplification method ID Date Data Source [id number] 12/06/2018 05:47:00 AM EDT [facility] Name Value Range Interpretation Description Data Sup porting Code Source(s) Document(s ) Methicillin MRSA TARGET [facility] resistant DNA DETECTED [place] [facility] aureus (MRSA) DNA [Presence] in Unspecified specimen by Probe and target amplification method Methicillin PATIENT IS [facility] resistant PRESUMED [place] Staphylococcus POSITIVE FOR Hospital aureus (MRSA) MRSA DNA [Presence] COLONIZATION in Unspecified specimen by Probe and target amplification method ID Date Data Source [id number] 12/06/2018 05:04:00 AM EDT [facility] THERAPEUTIC RANGES:UNFRACTIONATED HEPARI N THERAPY: 60-90 SECONDSARGATROBAN THERAPY: 49-99 SECONDS Name Value Range Interpretation Description Data Sup porting Code Source(s) Document(s ) aPTT in 31.7 s [place] Platelet poor [facility] plasma by Coagulation assay ID Date Data Source [id number] 12/06[facility]ANGE FOR STANDARD ORALANTIC OAGULANT THERAPY: 2.0-3.0THERAPEUTIC RANGE FOR HIGH DOSE ORALANTICOAGULANT THERAPY (MECHANICAL HEARTVALVE REPLACEMENT): 2.5-3.5 Name Value Range Interpretation Description Data Sup porting Code Source(s) Document(s ) INR in Platelet 1.3 [place] poor plasma by Hospital Coagulation assay ID Date Data Source [id number] 12/06/2018 05:04:00 AM EDT [facility] HEMOLYZED SPECIMEN- HEMOLYSIS CAUSES ELLEN RTENING OF PT AND APTT RESULTS Name Value Range Interpretation Description Data Sup porting Code Source(s) Document(s ) PT panel - 14.4 s [place] Platelet poor [facility] plasma by Coagulation assay ID Date Data Source [id number] 11/25/2018 04:52:00 PM EDT [facility] Name Value Range Interpretation Description Data Sup porting Code Source(s) Document(s ) Bacteria CORYNEBACTERIUM [place] identified SPECIES [place] in Wound by Hospital Culture Bacteria METHICILLIN RES [facility] identified STAPH AUREUS [place] in Wound by Hospital Culture ID Date Data Source [id number] 11/25/2018 11[facility]52[facility] Name Value Range Interpretation Description Data Sup porting Code Source(s) Document(s ) GLUCOSE RN Notified 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 Value Range Interpretation Description Data Sup porting Code Source(s) Document(s ) Calcium 8.7 mg/dL [place] [Mass/volume Hospital ] in Serum or Plasma ID Date Data Source [id number] 11/24/2018 09:24:00 AM [facility] Value Range Interpretation Code Description Data Jackie rce(s) Supporting Document(s ) Urea 11.7 [place] nitrogen/Cre Hospital atinine [Mass Ratio] in Serum or Plasma ID Date Data Source [id number] 11/24/2018 09:24:00 AM [facility] Value Range Interpretation Description Data Sup porting Code Source(s) Document(s ) Creatinine 1.2 mg/dL [place] [Mass/volume] Hospital in Serum or Plasma ID Date Data Source [id number] 11/24/2018 09:24:00 AM [facility] Name Value Range Interpretation Description Data Sup porting Code Source(s) Document(s ) Urea 14 mg/dL [place] nitrogen Hospital [Mass/volume ] in Serum or Plasma ID Date Data Source [id number] 11/24/2018 09:24:[address] [facility] Value Range Interpretation Code Description Data Jackie rce(s) Supporting Document(s ) Anion gap in 14 [place] Serum or [facility] Plasma ID Date Data Source [id number] 11/24/2018 09:24:00 AM EDT [facility] Name Value Range Interpretation Description Data Sup porting Code Source(s) Document(s ) Carbon 24 mmol/L [place] dioxide, Hospital total [Moles/volu me] in Serum or Plasma ID Date Data Source [id number] 11/24/2018 09:24:[address] [facility] Value Range Interpretation Description Data Sup porting Code Source(s) Document(s ) Chloride 105 [place] [Moles/volum mmol/L Hospital e] in Serum or Plasma ID Date Data Source [id number] 11/24/2018 09:24:[address] [facility] Value Range Interpretation Description Data Sup porting Code Source(s) Document(s ) Potassium 4.7 [place] [Moles/volume mmol/L Hospital ] in Serum or Plasma ID Date Data Source [id number] 11/24/2018 09:24:00 AM EDT [facility] Name Value Range Interpretation Description Data Sup porting Code Source(s) Document(s ) Sodium 138 mmol/L [place] [Moles/volu Hospital me] in Serum or Plasma ID Date Data Source [id number] 11/24/2018 09:24:00 AM EDT [facility] Name Value Range Interpretation Description Data Sup porting Code Source(s) Document(s ) Glucose 200 mg/dL [place] [Mass/volume Hospital ] in Serum or Plasma ID Date Data Source [id number] 11/24/2018 09:24:00 AM [facility] Value Range Interpretation Description Data Sup porting Code Source(s) Document(s ) Differential AUTOMATED [place] cell count [facility] method - Blood ID Date Data Source [id number] 11/24/2018 09:24:00 AM [facility] Name Value Range Interpretation Description Data Sup porting Code Source(s) Document(s ) Immature 0.02 [place] granulocytes 10*3/uL Hospital [#/volume] in Blood by Automated count ID Date Data Source [id number] 11/24/2018 09:24:00 AM [facility] Value Range Interpretation Description Data Sup porting Code Source(s) Document(s ) Basophils 0.04 [place] [#/volume] in 10*3/uL Hospital Blood by Automated count ID Date Data Source [id number] 11/24/2018 09:24:00 AM [facility] Value Range Interpretation Description Data Sup porting Code Source(s) Document(s ) Eosinophils 0.49 [place] [#/volume] in 10*3/uL Hospital Blood by Automated count ID Date Data Source [id number] 11/24/2018 09:24:00 AM [facility] Value Range Interpretation Description Data Sup porting Code Source(s) Document(s ) Monocytes 0.71 [place] [#/volume] in 10*3/uL Hospital Blood by Automated count ID Date Data Source [id number] 11/24/2018 09:24:00 AM [facility] Value Range Interpretation Description Data Sup porting Code Source(s) Document(s ) Lymphocytes 3.02 [place] [#/volume] in 10*3/uL Hospital Blood by Automated count ID Date Data Source [id number] 11/24/2018 09:24:00 AM [facility] Value Range Interpretation Description Data Sup porting Code Source(s) Document(s ) Neutrophils 4.50 [place] [#/volume] in 10*3/uL Hospital Blood by Automated count ID Date Data Source [id number] 11/24/2018 09:24:[address] [facility] Value Range Interpretation Description Data Sup porting Code Source(s) Document(s ) Nucleated 0.0 % [place] erythrocytes/10 Hospital 0 leukocytes [Ratio] in Blood by Automated count ID Date Data Source [id number] 11/24/2018 09:24:[address] [facility] Value Range Interpretation Description Data Sup porting Code Source(s) Document(s ) Immature 0.2 % [place] granulocytes/10 Hospital 0 leukocytes in Blood by Automated count ID Date Data Source [id number] [facility]/24[facility] Description Data Sup porting Code Source(s) Document(s ) Basophils/100 0.5 % [place] leukocytes in [facility] Blood by Automated count ID Date Data Source [id number] 11/24/2018 [facility] Interpretation Description Data Sup porting Code Source(s) Document(s ) Eosinophils/100 5.6 % [place] leukocytes in Hospital Blood by Automated count ID Date Data Source [id number] 11/24/2018 [facility] Interpretation Description Data Sup porting Code Source(s) Document(s ) Monocytes/100 8.1 % [place] leukocytes in Hospital Blood by Automated count ID Date Data Source [id number] 11/24/2018 09:24:00 AM EDT [facility] Name Value Range Interpretation Description Data Sup porting Code Source(s) Document(s ) Lymphocytes/10 34.4 % [place] 0 leukocytes Hospital in Blood by Automated count ID Date Data Source [id number] 11/24/2018 [facility] Interpretation Description Data Sup porting Code Source(s) Document(s ) Neutrophils/10 51.2 % [place] 0 leukocytes Hospital in Blood by Automated count ID Date Data Source [id number] 11/24/2018 09:24:00 AM [facility] Value Range Interpretation Description Data Sup porting Code Source(s) Document(s ) Platelet mean 10.1 fL [place] volume [facility] [Entitic volume] in Blood by Automated count ID Date Data Source [id number] 11/24/2018 09:24:00 AM [facility] Value Range Interpretation Description Data Sup porting Code Source(s) Document(s ) Platelets 397 [place] [#/volume] in 10*3/uL Hospital Blood by Automated count ID Date Data Source [id number] 11/24/2018 09:24:00 AM [facility] Value Range Interpretation Description Data Sup porting Code Source(s) Document(s ) Erythrocyte 22.4 % [place] distribution Hospital width [Ratio] by Automated count ID Date Data Source [id number] 11/24/2018 09:24:00 AM [facility] Value Range Interpretation Description Data Sup porting Code Source(s) Document(s ) Erythrocyte mean 29.8 [place] corpuscular g/dL Hospital hemoglobin concentration [Mass/volume] by Automated count ID Date Data Source [id number] 11/24/2018 09:24:00 AM [facility] Name Value Range Interpretation Description Data Sup porting Code Source(s) Document(s ) Erythrocyte 24.5 pg [facility] Hospital corpuscular hemoglobin [Entitic mass] by Automated count ID Date Data Source [id number] 11/24/2018 09:24:00 AM [facility] Name Value Range Interpretation Description Data Sup porting Code Source(s) Document(s ) Erythrocyte 82.1 fL [facility] Hospital corpuscular volume [Entitic volume] by Automated count ID Date Data Source [id number] 11/24/2018 09:24:00 AM [facility] Name Value Range Interpretation Description Data Sup porting Code Source(s) Document(s ) Hematocrit 26.2 % [place] [Volume Hospital Fraction] of Blood by Automated count ID Date Data Source [id number] 11/24/2018 09:24:00 AM [facility] NOTIFICATION AND READ BACK OF CRITICAL R ESULTS TO Nimesh CRISOSTOMO RN AT 1018 ON 11/24/18 BY Callie Holt. Name Value Range Interpretation Description Data Sup porting Code Source(s) Document(s ) Hemoglobin 7.8 g/dL [place] [Mass/volume] Hospital in Blood ID Date Data Source [id number] 11/24/2018 09:24:00 AM [facility] Name Value Range Interpretation Description Data Sup porting Code Source(s) Document(s ) Erythrocytes 3.19 [place] [#/volume] in 10*6/uL Hospital Blood by Automated count ID Date Data Source [id number] 11/24/2018 09:24:00 AM [facility] Name Value Range Interpretation Description Data Sup porting Code Source(s) Document(s ) Leukocytes 8.8 [place] [#/volume] in 10*3/uL Hospital Blood by Automated count ID Date Data Source [id number] 11/23/2018 08:58:00 AM [facility] NOTE: NEW REFERENCE RANGE, EFFECTIVE . Name Value Range Interpretation Description Data Sup porting Code Source(s) Document(s ) Vancomycin 13.7 [place] [Mass/volume] ug/mL Hospital in Serum or Plasma --trough ID Date Data Source [id number] 11/23/2018 08:58:00 AM [facility] NOTE: NEW REFERENCE RANGE, EFFECTIVE . Name Value Range Interpretation Description Data Sup porting Code Source(s) Document(s ) Vancomycin 13.7 [place] [Mass/volume] ug/mL Hospital in Serum or Plasma --trough ID Date Data Source [id number] 11/23/2018 07:15:00 AM [facility] Name Value Range Interpretation Description Data Sup porting Code Source(s) Document(s ) C reactive 21.0 mg/L [place] protein Hospital [Mass/volume ] in Serum or Plasma ID Date Data Source [id number] 11/23/2018 07:15:00 AM [facility] Name Value Range Interpretation Description Data Sup porting Code Source(s) Document(s ) Erythrocyte 92 mm/h [facility] Hospital rate by Westergren method ID Date Data Source [id number] 11/23/2018 07:15:00 AM [facility] Name Value Range Interpretation Description Data Sup porting Code Source(s) Document(s ) C reactive 21.0 mg/L [place] protein Hospital [Mass/volume ] in Serum or Plasma ID Date Data Source [id number] 11/23/2018 07:15:00 AM [facility] Name Value Range Interpretation Description Data Sup porting Code Source(s) Document(s ) Aspartate 22 U/L [place] aminotransferase [place] [Enzymatic Hospital activity/volume] in Serum or Plasma ID Date Data Source [id number] 11/23/2018 07:15:[facility] Value Range Interpretation Description Data Sup porting Code Source(s) Document(s ) Alanine 23 U/L [place] aminotransferase [place] [Enzymatic Hospital activity/volume] in Serum or Plasma ID Date Data Source [id number] 11/23/2018 07:15:[facility] Name Value Range Interpretation Description Data Sup porting Code Source(s) Document(s ) Alkaline 120 U/L [place] phosphatase Hospital [Enzymatic activity/volume ] in Serum or Plasma ID Date Data Source [id number] 11/23/2018 07:15:00 AM [facility] Value Range Interpretation Description Data Sup porting Code Source(s) Document(s ) Bilirubin.t 0.3 mg/dL [facility] [Mass/volum e] in Serum or Plasma ID Date Data Source [id number] 11/23/2018 07:15:00 AM [facility] Value Range Interpretation Code Description Data Jackie rce(s) Supporting Document(s ) Albumin/Glob 1.0 [place] ulin [Mass Hospital Ratio] in Serum or Plasma ID Date Data Source [id number] 11/23/2018 07:15:[facility] Name Value Range Interpretation Description Data Sup porting Code Source(s) Document(s ) Albumin 3.3 g/dL [place] [Mass/volume Hospital ] in Serum or Plasma ID Date Data Source [id number] 11/23/2018 07:15:00 AM [facility] Name Value Range Interpretation Description Data Sup porting Code Source(s) Document(s ) Protein 6.5 g/dL [place] [Mass/volume Hospital ] in Serum or Plasma ID Date Data Source [id number] 11/23/2018 07:15:00 AM EDT [facility] Name Value Range Interpretation Description Data Sup porting Code Source(s) Document(s ) Erythrocyte 92 mm/h [place] sedimentation Hospital rate by Westergren method ID Date Data Source [id number] 11/22/2018 06:30:00 AM EDT [facility] Name Value Range Interpretation Description Data Sup porting Code Source(s) Document(s ) GLUCOSE Pre Meal [facility] Hospital Procedure Social History Code Duration Value Status Description Data Source(s ) Smoking 06/23/2019 Never smoked completed Never smoked [place] [facility] - 12:46:08 AM EDT tobacco tobacco (finding) [facility] (finding) Center Smoking 06/23/2019 Never smoked completed Never smoked [place] [facility] - 12:46:08 AM EDT tobacco tobacco (finding) [facility] (finding) Center Smoking 06/23/2019 Never smoked completed Never smoked [place] [facility] - 12:46:08 AM EDT tobacco tobacco (finding) [facility] (finding) Center Smoking 06/04/2019 Never smoked completed Never smoked [place] [facility] - 08:41:21 PM EST tobacco tobacco (finding) [facility] (finding) Center Smoking 06/04/2019 Never smoked completed Never smoked [place] [facility] - 08:41:21 PM EST tobacco tobacco (finding) [facility] (finding) Center Smoking 06/04/2019 Never smoked completed Never smoked [place] [facility] - 08:41:21 PM EST tobacco tobacco (finding) [facility] (finding) Center Smoking 06/04/2019 Never smoked completed Never smoked [place] [facility] - 08:41:21 PM EST tobacco tobacco (finding) [facility] (finding) Center Smoking 06/04/2019 Never smoked completed Never smoked [place] [facility] - 08:41:21 PM EST tobacco tobacco (finding) [facility] (finding) Center Smoking 06/04/2019 Never smoked completed Never smoked [place] [facility] - 08:41:21 PM EST tobacco tobacco (finding) [facility] (finding) Center Smoking 06/04/2019 Never smoked [...] - 200 Normal (applies to 98.5 [degF] [facility]ore temperature non-numeric Health Syste m results) [...] oximetry Body surface 2.3 m2 2.3 m2 [facility] area Derived Health Syste m from formula Body mass index 27.7 kg/m2 27.7 [facility]2 [facility]Ratio] Health Syst em Body weight 103.41 kg 103.41 kg [facility] Health System Body height 193.04 cm 193.04 cm [facility] Glucose 244 mg/dL 65-100 Above high normal 244 mg/dL [place] [Moles/volume] mg/dL Health - in Capillary [place] blood by Hospital Glucometer [place] Oxygen 98 % 94-100 % Normal (applies to 98 % [place] saturation in non-numeric Health - Blood results) [place] Postductal by [facility] Pulse oximetry Center Diastolic blood 68 mm[Hg] 60-90 Normal (applies to 68 mm[Hg] [place] pressure mmHg non-numeric Health - results) [facility] Systolic blood 120 mm[Hg] 90-130 Normal (applies to 120 mm[Hg] [place] pressure mmHg non-numeric Health - results) [facility] Vital Signs Dr. Cl Spicer Reported To [facility] Oxygen therapy [place] [Minimum Data Health - Set] [facility] Mean blood 133 mm[Hg] 133 mm[Hg] [place] pressure by [facility] Oxygen 99 % 94-100 % Normal (applies to 99 % [place] saturation in non-numeric Health - Blood results) [place] Postductal by [facility] Pulse oximetry Center Diastolic blood 106 mm[Hg] 60-90 106 mm[Hg] [place] pressure mmHg [facility] Systolic blood 186 mm[Hg] 90-130 186 mm[Hg] [place] pressure mmHg [facility] Respiratory 18 br/min 14-20 Normal (applies to 18 br/min [place] rate br/min non-numeric Health - results) [facility] Heart rate 98 bpm 60-100 Normal (applies to 98 bpm [place] bpm non-numeric Health - results) [facility] Oral 97.1 [degF] 96.4-99.1 Normal (applies to 97.1 [degF] Nuva nce temperature DegF non-numeric Health - results) [facility] Glucose 178 mg/dL 65-100 Above high normal 178 mg/dL [place] [Moles/volume] mg/dL Health - in Capillary [place] blood by [facility] Glucometer [place] Glucose 178 mg/dL 65-100 Above high normal 178 mg/dL [place] [Moles/volume] mg/dL Health - in Capillary [place] blood by [facility] Glucometer [place] Respiratory 18 br/min 14-20 Normal (applies to 18 br/min [place] [facility] rate br/min non-numeric Health - results) [facility] Oral 98.2 [degF] 96.4-99.1 Normal (applies to 98.2 [degF] Nuva nce temperature DegF non-numeric Health - results) [facility] Oxygen 99 % 94-100 % Normal (applies to 99 % [place] saturation in non-numeric Health - Blood results) [place] [facility] Pulse [facility]ximetry [facility] Heart rate 97 bpm 60-100 Normal (applies to 97 bpm [place] bpm non-numeric Health - results) [facility] Mean blood 123 mm[Hg] 123 mm[Hg] [place] pressure by [facility] Noninvasive [facility] Diastolic blood 94 mm[Hg] 60-90 94 mm[Hg] [place] pressure mmHg [facility] Systolic blood 180 mm[Hg] 90-130 Above high normal 180 mm[Hg] Nuv ance pressure mmHg [facility] Mean blood 125 mm[Hg] 125 mm[Hg] [place] pressure by [facility] Oxygen therapy [place] [Minimum Data Health - Set] [facility] Blood pressure [place] measurement Health - [facility] Respiratory 18 br/min 14-20 Normal (applies to 18 br/min [place] ce rate br/min non-numeric Health - results) [facility] Heart rate 103 bpm 60-100 Above high normal 103 bpm [place] bpm [facility] Oral 98.7 [degF] 96.4-99.1 Normal (applies to 98.7 [degF] Nuva nce temperature DegF non-numeric Health - results) [facility] Oxygen Therapy [place] Activity [facility] Oxygen therapy [place] [Minimum Data Health - Set] [facility] Body mass index 27.38 kg/m2 27.38 kg/m2 [place] (BMI) [Ratio] [facility] Body weight 102 kg 102 kg [place] Measured [facility] Body height 193 cm 193 cm [place] [facility] Body mass index 27.38 kg/m2 27.38 kg/m2 [place] (BMI) [Ratio] [facility] Glucose 279 mg/dL 65-100 Above high normal 279 mg/dL [place] [Moles/volume] mg/dL Health - in Capillary [place] blood by [facility] Glucometer [facility] Oxygen therapy [place] [Minimum Data Health - Set] [facility] Mean blood 110 mm[Hg] 110 mm[Hg] [place] pressure by Health - Noninvasive [facility] Oxygen therapy [place] [Minimum Data Health - Set] [facility] Blood pressure [place] measurement Health - site [facility] Diastolic blood 83 mm[Hg] 60-90 Normal (applies to 83 mm[Hg] N uvance pressure mmHg non-numeric Health - results) [facility] Systolic blood 165 mm[Hg] 90-130 Above high normal 165 mm[Hg] Nuv ance pressure mmHg Health - [facility] Respiratory 18 br/min 14-20 Normal (applies to 18 br/min [place] rate br/min non-numeric Health - results) [facility] Heart rate 64 bpm 60-100 Normal (applies to 64 bpm [place] e bpm non-numeric Health - results) [facility] Oral 98.6 [degF] 96.4-99.1 Normal (applies to 98.6 [degF] Nuva nce temperature DegF non-numeric Health - results) [facility] Glucose 130 mg/dL 65-100 Above high normal 130 mg/dL [place] [Moles/volume] mg/dL Health - in Capillary [place] blood by [facility] Glucometer [place] Glucose 130 mg/dL 65-100 Above high normal 130 mg/dL [place] [Moles/volume] mg/dL Health - in Capillary [place] blood by [facility] Glucometer [place] Respiratory 18 br/min 14-20 Normal (applies to 18 br/min [place] rate br/min non-numeric Health - results) [facility] Oral 98.2 [degF] 96.4-99.1 Normal (applies to 98.2 [degF] Nuva nce temperature DegF non-numeric Health - results) [facility] Oxygen 99 % 94-100 % Normal (applies to 99 % [place] saturation in non-numeric Health - Blood results) [place] [facility] by [facility] Pulse oximetry Center Heart rate 60 bpm 60-100 Normal (applies to 60 bpm [place] e bpm non-numeric Health - results) [facility] Mean blood 92 mm[Hg] 92 mm[Hg] [place] pressure by Health - Noninvasive [facility] Diastolic blood 75 mm[Hg] 60-90 Normal (applies to 75 mm[Hg] N uvance pressure mmHg non-numeric Health - results) [facility] Systolic blood 125 mm[Hg] 90-130 Normal (applies to 125 mm[Hg] Nu lyons pressure mmHg non-numeric Health - results) [facility] Blood pressure [place] measurement [facility] Oxygen therapy [place] [Minimum Data Health - Set] [facility] Diastolic blood 84 mm[Hg] 60-90 Normal (applies to 84 mm[Hg] N uvance pressure mmHg non-numeric Health - results) [facility] Systolic blood 154 mm[Hg] 90-130 Above high normal 154 mm[Hg] Nuv ance pressure mmHg [facility] Mean blood 92 mm[Hg] 92 mm[Hg] [place] pressure by Health - Noninvasive [facility] Oxygen 99 % 94-100 % Normal (applies to 99 % [place] e saturation in non-numeric Health - Blood results) [place] [facility] by [facility] Pulse oximetry Center Respiratory 18 br/min 14-20 Normal (applies to 18 br/min [place] ce rate br/min non-numeric Health - results) [facility] Heart rate 74 bpm 60-100 Normal (applies to 74 bpm [place] e bpm non-numeric Health - results) [facility] Oral 99.3 [degF] 96.4-99.1 Above high normal 99.3 [degF] Nuvan ce temperature DegF [facility] Oxygen 98 % 94-100 % Normal (applies to 98 % [place] e saturation in non-numeric Health - Blood results) [place] [facility] by [facility] Pulse oximetry Center Vital Signs Dr. Haile. Dr. Haile. Dannielle Reported To Additional dose Additional dose Hea lth - of Hydrazaline of Hydrazaline [place] 25mg po ordered 25mg po ordered [facility] Blood pressure [place] measurement Health - [facility] Vital Signs SUSAN Thornton ce Reported To [facility] Body mass index 27.79 kg/m2 27.79 kg/m2 Dannielle (BMI) [Ratio] [facility] Daily Weight 103.5 kg 103.5 kg [place] [facility] Body height 193 cm 193 cm [place] [facility] Heart rate 105 bpm 60-100 Above high normal 105 bpm [place] Peripheral bpm Health - artery by [facility] Heart rate 100 bpm 60-100 Normal (applies to 100 bpm [place] e Peripheral bpm non-numeric Health - artery by results) [facility] Heart rate 96 bpm 60-100 Normal (applies to 96 bpm [place] e Peripheral bpm non-numeric Health - artery by results) [facility] Body weight 103.5 kg 103.5 kg [place] Measured [facility] Body height 193 cm 193 cm [place] [facility] Inhaled oxygen 2 L/min 2 L/min [place] flow rate [facility] Inhaled oxygen 2 L/min 2 L/min [place] flow rate [facility] Inhaled oxygen 2 L/min 2 L/min [place] flow rate [facility] Oxygen Therapy [place] Activity [facility] Body mass index 27.33 kg/m2 27.33 kg/m2 [place] (BMI) [Ratio] [facility] Body weight 101.82 kg 101.82 kg [place] Measured [facility] Body height 193 cm 193 cm [place] [facility] Body mass index 27.33 kg/m2 27.33 kg/m2 [place] (BMI) [Ratio] [facility] Diastolic blood 92 mm[Hg] 92 mm[Hg] [facility] pressure Hospital Systolic blood 202 mm[Hg] 202 mm[Hg] [facility] pressure [facility] Respiratory 18 /min 18 /min [facility] Heart rate 107 /min 107 /min [facility] Body 37.13111 Fdie 37.25746 Fide [facility] temperature Hospital Body 99.1 [degF] 99.1 [degF] [facility] Body mass index 28.0 kg/m2 28.0 kg/m2 [facility] (BMI) [Ratio] Hospital Body weight 224.47 [lb_av] 224.47 [lb_av] [facility] Body 37 Fide 0 - 99.9 [...] 999 Above high normal 166 mm[Hg] [facility] pressure [facility] Oxygen 99 % 0 [...] results) Body surface 2.2 m2 2.2 m2 [facility] area Derived Health Syste m from formula Body mass index 27.4 kg/m2 27.4 kg/m2 [facility] ([facility] [Ratio[facility] Health Syst em Body weight 99.79 kg 99.79 kg [facility] Body height 190.5 cm 190.5 cm [facility] Body surface 2.3 m2 2.3 m2 [facility] area Derived Health Syste m from formula Body mass index 28.4 kg/m2 28.4 kg/m2 [facility] (BMI) [Ratio] Health Syst Body weight 103.41 kg 103.41 kg [facility] Body height 190.5 cm 190.5 cm [facility] Body 97.8 [degF] 0 - 200 Normal (applies to 97.8 [degF] [facility] efiore temperature non-numeric Health Syste m results) [...] results) Body surface 2.3 m2 2.3 m2 [facility] area Derived Health Syste m from formula Body mass index 28.4 kg/m2 28.4 kg/m2 [facility] (BMI) [Ratio] Health Syst em Body weight 103.41 kg 103.41 kg [facility] Body height 190.5 cm 190.5 cm [facility] Body surface 2.3 m2 2.3 m2 [facility] area Derived Health Syste m from formula Body mass index 28.2 kg/m2 28.2 kg/m2 [facility] Health Syst em Body weight 102.51 kg 102.51 kg [facility] Body height 190.5 cm 190.5 cm [facility] Body 98 [degF] 0 - 200 Normal [...] results) Diastolic blood 82 mm[Hg] 82 mm[Hg] [facility] ins pressure Hospital Systolic blood 145 mm[Hg] 145 mm[facility]Hg] [facility] Respiratory 19 /min 19 /min [facility] Heart rate 95 /min 95 /min [facility] Body 36.16337 Fide 36.49421 Fide [facility] temperature Hospital Body 98.1 [degF] 98.1 [degF] [facility] Body mass index 27.0 kg/m2 27.0 kg/m2 [facility] (BMI) [Ratio] Hospital Body weight 221.45 [lb_av] 221.45 [lb_av] [facility] Diastolic blood 76 mm[Hg] 76 mm[Hg] [facility] pressure Hospital Systolic blood 125 mm[Hg] 125 mm[Hg] [facility] ns pressure Hospital Respiratory 18 /min 18 /min [facility] Heart rate 83 /min 83 /min [facility] Body 36.59478 Fide 36.72984 Fide [facility] Body 97.6 [degF] 97.6 [degF] [facility] Body mass index 28.0 kg/m2 28.0 kg/m2 [facility] (BMI) [Ratio] Hospital Body weight 220.46 [lb_av] 220.46 [lb_av] [facility] Diastolic blood 80 mm[Hg] 80 mm[Hg] [facility] pressure Hospital Systolic blood 149 mm[Hg] 149 mm[Hg] [facility] ns pressure Hospital Respiratory 17 /min 17 /min [facility] Heart rate 91 /min 91 /min [facility] Body 36.28091 Fide 36.78086 Fied [facility] temperature Hospital Body 98.2 [degF] 98.2 [degF] [facility] Body mass index 29.0 kg/m2 29.0 kg/m2 [facility] (BMI) [Ratio] Hospital Body weight 229.28 [lb_av] 229.28 [lb_av] [facility] Diastolic blood 80 mm[Hg] 80 mm[Hg] [facility] pressure Hospital Systolic blood 138 mm[Hg] 138 mm[Hg] [facility] Respiratory 18 /min 18 /min [facility] Heart rate 100 /min 100 /min [facility] Body 36.54026 Fide 36.34147 Fide [facility] temperature Hospital Body 97.8 [degF] 97.8 [degF] [facility] Body mass index 29.0 kg/m2 29.0 kg/m2 [facility] (BMI) [Ratio] Hospital Body weight 226.48 [lb_av] 226.48 [lb_av] [facility] Diastolic blood 81 mm[Hg] 81 mm[Hg] [facility] Hospital Systolic blood 134 mm[Hg] 134 mm[Hg] [facility] Hospital Respiratory 18 /min 18 /min [facility] Heart rate 98 /min 98 /min [facility] Body 36.55890 Fide 36.28834 Fide [facility] Body 98.5 [degF] 98.5 [degF] [facility] Patient Treatment Plan of Care Planned Activity Planned Date Details Description Data Source (s) Simethicone 80 MG Chewable 06/25/2019 [facility] - Tablet 09:57:00 AM EDT [facility] Acetaminophen 325 MG Oral 06/25/2019 [facility] Health - Tablet 09:57:00 AM EDT [facility] Lisinopril 20 MG Oral 06/10/2019 [facility] e Health - Tablet 09:09:00 AM EST [facility] Metoclopramide 10 MG Oral 06/10/2019 [facility] Health - Tablet 09:09:00 AM EST [facility] Hydralazine Hydrochloride 06/10/2019 [facility] Health - 25 MG Oral Tablet 09:09:[address] [facility] carvedilol 6.25 MG Oral 06/10/2019 [facility] nce Health - Tablet 09:09:00 AM EST [facility] metformin 06/05/2019 [facility] Health - 01:15:00 AM EST [facility] Hydroxyzine Hydrochloride 03/12/2019 [facility] 50 MG Oral Tablet 05:14:09 AM EST System Lorazepam 1 MG Oral Tablet 03/08/2019 [facility] [Ativan] 08:37:45 PM EST System Lorazepam 1 MG Oral Tablet 02/24/2019 [facility] [Ativan] 02:02:37 AM EST System
--- NOTE | 2020-01-20 22:48 | HP ---
Admitting History and Physical - Primary Care Physician PCP: Rosalind Giles - Admission Chief Complaint: Coffee Ground Emesis, Abdominal Pain History of Present Illness: This is a 54 y/o male with a significant past medical history of NIDDM, HTN, Gastroparesis, Osteomyelitis s/p right BKA (01/2019), recent admissions for Gastroparesis 11/05-11/11, 12/03-12/05, 01/06-01/08. Who presents to the ED for coffee ground emesis and abdominal pain. Patient reports having multiple episodes of bile and dark blood in the emesis and associated abdominal pain. He reports having similar episodes in the past. The patient denies taking any opiates for pain control. Patient denies fever, chills, cough, SOB, WHITLOCK, dizziness, CP, palpitations, diarrhea, constipation, dysuria. Patient denies recent sick contacts or travel. History Source: Patient Limitations to Obtaining History: No Limitations - Past Medical History Cardiovascular: Yes: HTN Gastrointestinal: Yes: Constipation, Other (Recurring episodes of vomiting, often associated with flecks of blood and treated with Reglan) Hepatobiliary: Yes: Other (gastroparesis) Infectious Disease: Yes: Other (RLE osteomyelitis ) Endocrine: Yes: Diabetes Mellitus - Past Surgical History Past Surgical History: Yes: Amputation (right BKA), Upper Endoscopy - Smoking History Smoking history: Never smoked Have you smoked in the past 12 months: No - Alcohol/Substance Use Hx Alcohol Use: No History of Substance Use: reports: None - Social History Usual Living Arrangement: Yes: With Spouse Do you think of yourself as: Straight/Heterosexual ADL: Independent 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 [employer] History of Recent Travel: No Home Medications - Allergies Allergies/Adverse Reactions: Allergies Allergy/AdvReac Type Severity Reaction Status Date / Time sesame seed Allergy Verified 01/20/20 17:00 javi seed Allergy Uncoded 01/20/20 17:00 - Home Medications Home Medications: Ambulatory Orders Pantoprazole Sodium [Protonix -] 40 mg PO DAILY #30 tablet.ec 11/12/19 Sennosides [Senna -] 2 tab PO HS PRN #60 tablet 11/12/19 Acetaminophen [Tylenol .Regular Strength -] 650 mg PO Q4H PRN #90 tablet 12/06/19 Amlodipine Besylate [Norvasc -] 5 mg PO DAILY #30 tablet 12/06/19 Gabapentin [Neurontin -] 300 mg PO TID #90 capsule 12/06/19 Labetalol HCl [Normodyne -] 200 mg PO BID #60 tablet 12/06/19 Ondansetron [Zofran *Odt*] 4 mg SL Q6H PRN #30 tab 12/06/19 Pantoprazole Sodium [Protonix -] 40 mg PO DAILY #30 tab 12/06/19 Polyethylene Glycol 3350 [Miralax 119 gm Btl -] 17 gm PO TID #1 bottle 12/06/19 Metoclopramide HCl [Reglan -] 5 mg PO TIDAC PRN #90 tablet 01/09/20 Family Medical History Family History: Unremarkable Review of Systems - Review of Systems Constitutional: reports: Loss of Appetite Eyes: reports: No Symptoms HENT: reports: No Symptoms Neck: reports: No Symptoms Cardiovascular: reports: No Symptoms Respiratory: reports: No Symptoms Gastrointestinal: reports: Abdominal Pain, Nausea, Vomiting, Vomiting Blood Genitourinary: reports: No Symptoms Breasts: reports: No Symptoms Reported Musculoskeletal: reports: No Symptoms Integumentary: reports: No Symptoms Neurological: reports: No Symptoms Endocrine: reports: No Symptoms Hematology/Lymphatic: reports: No Symptoms Psychiatric: reports: No Symptoms Pain Intensity: 9 Physical Examination Vital Signs: Vital Signs Temperature 98.6 F 01/20/20 17:01 Pulse Rate 97 H 01/20/20 18:44 Respiratory Rate 16 01/20/20 18:44 Blood Pressure 117/103 H 01/20/20 18:44 O2 Sat by Pulse Oximetry (%) 100 01/20/20 18:44 Constitutional: Yes: Mild Distress Eyes: Yes: Conjunctiva Clear, EOM Intact, PERRL HENT: Yes: Atraumatic, Normocephalic, Other (dry mucous membranes) Cardiovascular: Yes: Tachycardia, S1, S2 Respiratory: Yes: Regular, CTA Bilaterally, On Nasal O2 Gastrointestinal: Yes: Soft, Hyperactive Bowel Sounds, Tenderness, Tenderness, Epigastrium ...Rectal Exam: Yes: Guaiac Negative Renal/: Yes: WNL Breast(s): Yes: WNL Musculoskeletal: Yes: WNL Extremities: Yes: Amputation (Right BKA) Edema: No Peripheral Pulses WNL: Yes (Left dorsal, R- BKA) Neurological: Yes: Alert, Oriented, Cran Nerves II-XII Intact ...Motor Strength: WNL Psychiatric: Yes: Alert, Oriented Labs: CBC, BMP 01/20/20 18:00 01/20/20 18:00 Laboratory Results - last 24 hr 01/20/20 01/20/20 01/20/20 18:00 18:00 18:00 WBC 12.3 H RBC 4.51 Hgb 11.7 Hct 35.9 D MCV 79.8 L MCH 26.0 MCHC 32.6 RDW 16.0 H Plt Count 321 D MPV 9.0 Absolute Neuts (auto) 8.5 H Neutrophils % 69.2 Lymphocytes % 21.5 D Monocytes % 5.8 Eosinophils % 3.1 Basophils % 0.4 Nucleated RBC % 0 PT with INR 10.90 INR 0.92 PTT (Actin FS) 19.2 L Sodium 139 Potassium 4.2 Chloride 106 Carbon Dioxide 24 Anion Gap 10 BUN 13.6 Creatinine 1.7 H Est GFR (CKD-EPI)AfAm 51.84 Est GFR (CKD-EPI)NonAf 44.72 POC Glucometer Random Glucose 118 H Calcium 9.2 Total Bilirubin 0.4 AST 16 ALT 18 Alkaline Phosphatase 119 H Creatine Kinase 201 Creatine Kinase Index 0.8 CK-MB (CK-2) 1.8 Troponin I < 0.02 Total Protein 8.1 Albumin 3.9 Total Amylase Cancelled Lipase 48 L Urine Color Urine Appearance Urine pH Ur Specific [place] Urine Protein Urine Glucose (UA) Urine Ketones Urine Blood Urine Nitrite Urine Bilirubin Urine Urobilinogen Ur Leukocyte Esterase Urine WBC (Auto) Urine RBC (Auto) Urine Casts (Auto) U Pathogenic Cast Auto U Epithel Cells (Auto) Urine Bacteria (Auto) Stool Occult Blood Opiates Screen Methadone Screen Barbiturate Screen Phencyclidine Screen Ur Amphetamines Screen MDMA (Ecstasy) Screen Benzodiazepines Screen Cocaine Screen U Marijuana (THC) Screen Blood Type Antibody Screen 01/20/20 01/20/20 01/20/20 18:00 18:00 18:42 WBC RBC Hgb Hct MCV MCH MCHC RDW Plt Count MPV Absolute Neuts (auto) Neutrophils % Lymphocytes % Monocytes % Eosinophils % Basophils % Nucleated RBC % PT with INR INR PTT (Actin FS) Sodium Potassium Chloride Carbon Dioxide Anion Gap BUN Creatinine Est GFR (CKD-EPI)AfAm Est GFR (CKD-EPI)NonAf POC Glucometer 179 Random Glucose Calcium Total Bilirubin AST ALT Alkaline Phosphatase Creatine Kinase Creatine Kinase Index CK-MB (CK-2) Troponin I Total Protein Albumin Total Amylase Lipase Urine Color Urine Appearance Urine pH Ur Specific [place] Urine Protein Urine Glucose (UA) Urine Ketones Urine Blood Urine Nitrite Urine Bilirubin Urine Urobilinogen Ur Leukocyte Esterase Urine WBC (Auto) Urine RBC (Auto) Urine Casts (Auto) U Pathogenic Cast Auto U Epithel Cells (Auto) Urine Bacteria (Auto) Stool Occult Blood Negative Opiates Screen Methadone Screen Barbiturate Screen Phencyclidine Screen Ur Amphetamines Screen MDMA (Ecstasy) Screen Benzodiazepines Screen Cocaine Screen U Marijuana (THC) Screen Blood Type O POSITIVE Antibody Screen Negative 01/21/20 01/21/20 01:40 01:40 WBC RBC Hgb Hct MCV MCH MCHC RDW Plt Count MPV Absolute Neuts (auto) Neutrophils % Lymphocytes % Monocytes % Eosinophils % Basophils % Nucleated RBC % PT with INR INR PTT (Actin FS) Sodium Potassium Chloride Carbon Dioxide Anion Gap BUN Creatinine Est GFR (CKD-EPI)AfAm Est GFR (CKD-EPI)NonAf POC Glucometer Random Glucose Calcium Total Bilirubin AST ALT Alkaline Phosphatase Creatine Kinase Creatine Kinase Index CK-MB (CK-2) Troponin I Total Protein Albumin Total Amylase Lipase Urine Color Yellow Urine Appearance Clear Urine pH 8.0 Ur Specific [place] 1.014 Urine Protein 3+ H Urine Glucose (UA) Trace Urine Ketones 1+ H Urine Blood 3+ H Urine Nitrite Negative Urine Bilirubin Negative Urine Urobilinogen 0.2 Ur Leukocyte Esterase Negative Urine WBC (Auto) 6 Urine RBC (Auto) 17 Urine Casts (Auto) 21 U Pathogenic Cast Auto None U Epithel Cells (Auto) 18 Urine Bacteria (Auto) 406 Stool Occult Blood Opiates Screen Positive A* Methadone Screen Negative Barbiturate Screen Negative Phencyclidine Screen Negative Ur Amphetamines Screen Negative MDMA (Ecstasy) Screen Negative Benzodiazepines Screen Negative Cocaine Screen Negative U Marijuana (THC) Screen Negative Blood Type Antibody Screen Intake & Output 01/18/20 01/19/20 01/20/20 01/21/20 23:59 23:59 23:59 23:59 Weight 97.069 kg Imaging - Results Chest X-ray: Image Reviewed X-ray: Image Reviewed EKG: Image Reviewed Problem List - Problems (1) GI bleed Assessment/Plan: Tele monitoring Appreciate GI Consult- Dr Cruz aware per ED resident Continue IVF Protonix Drip Monitor CBC, CMP Hold PO meds Code(s): K92.2 - GASTROINTESTINAL HEMORRHAGE, UNSPECIFIED (2) Abdominal pain Assessment/Plan: Patient given Dilaudid in the ED and became apenic and hypoxic, given narcan and O2 via BVM- now arousable, O2 > 95% on nasal cannula Will avoid Opioids for now UDT ordered Ofirmev- pain management Consider Pain Management consult Abdominal Xray pending, per GI's request per ED resident Monitor CBC, CMP Monitor vitals Code(s): R10.9 - UNSPECIFIED ABDOMINAL PAIN Qualifiers: Abdominal location: unspecified location Qualified Code(s): R10.9 - Unspecified abdominal pain (3) Intractable vomiting Assessment/Plan: Likely due to Gastroparesis Zofran Reglan Continue IVF Monitor CMP Code(s): R11.10 - VOMITING, UNSPECIFIED Qualifiers: Vomiting type: unspecified Nausea presence: unspecified Qualified Code(s): R11.10 - Vomiting, unspecified (4) HTN (hypertension) Assessment/Plan: sub optimal Likely due to pain vs missed medications due to emesis Monitor BP Labetolol IV prn Code(s): I10 - ESSENTIAL (PRIMARY) HYPERTENSION (5) Microcytic anemia Assessment/Plan: stable Will transfuse if HGb < 7.0 Monitor CBC Code(s): D50.9 - IRON DEFICIENCY ANEMIA, UNSPECIFIED (6) Opiate dependence Assessment/Plan: Istop reviewed, no recent opioids Consider Pain Management for treating chronic abdominal pain Code(s): F11.20 - OPIOID DEPENDENCE, UNCOMPLICATED Qualifiers: Substance use status: with unspecified opioid-induced disorder Qualified Code(s): F11.29 - Opioid dependence with unspecified opioid-induced disorder (7) Phantom limb pain Assessment/Plan: s/p Right BKA Ofirmev prn Code(s): G54.6 - PHANTOM LIMB SYNDROME WITH PAIN (8) Encounter for screening laboratory testing for COVID-19 virus Assessment/Plan: Low Risk COVID PCR-pending Maintain Strict Isolation Precautions Code(s): Z20.828 - CONTACT W AND EXPOSURE TO OTH VIRAL COMMUNICABLE DISEASES Assessment/Plan This is a 54 y/o male with a significant past medical history of NIDDM, HTN, Gastroparesis, Osteomyelitis s/p right BKA (01/2019), recent admissions for Gastroparesis 11/05-11/11, 12/03-12/05, 01/06-01/08. Admitted to Telemetry for GI Bleed, Intractable Vomiting, Abdominal Pain for further evaluation of their emergent condition Plan: See Problem List FEN D50.45%NS@83ml/hr Replete lytes prn NPO DVT ppx OOB SCD to LLE only Hold AC 05/11 GI Bleed Code Status: Full Code Dispo: Requires Inpatient Care Visit type - Emergency Visit Emergency Visit: Yes ED Registration Date: 01/20/20 Care time: The patient presented to the Emergency Department on the above date and was hospitalized for further evaluation of their emergent condition. - New Patient This patient is new to me today: Yes Date on this admission: 01/20/20 - Critical Care Critical Care patient: No
[2020-01-21] MEDS ORDERED: ACETAMINOPHEN INJECTION 100 ML IVPB ONE ×3 (00:23→21:08)
[2020-01-21] MEDS ORDERED: ONDANSETRON 4 MG/2 ML VIAL IVPUSH ONE (00:31)
[2020-01-21] MEDS: DEXTROSE 5%-0.45% SALINE 1,000 ML IV SCH ×2 (00:42→21:52)
[2020-01-21 02:03] LABS: COCAINE, UR NEGATIVE ng/ml (CUTOFF=300); METHADONE, UR NEGATIVE ng/ml (CUTOFF=300); PHENCYCLIDINE,URINE NEGATIVE ng/ml (CUTOFF=25); URINE AMPHETAMINES NEGATIVE ng/ml (CUTOFF=500); URINE BARBITURATES NEGATIVE ng/ml (CUTOFF=200); URINE BENZODIAZEPINES NEGATIVE ng/ml (CUTOFF=200)
[2020-01-21 02:06] LABS: OPIATES, URI POSITIVE ng/ml (CUTOFF=300)
[2020-01-21 02:37] LABS: EPI CELLS 18 /uL (0-25.1); HYALINE CASTS 21 /uL (0-3.1); URINE APPEARANCE CLEAR; URINE BACTERIA 406 /uL (0-1359); URINE BILIRUBIN NEGATIVE (NEGATIVE); URINE COLOR YELLOW; URINE GLUCOSE (UA) TRACE (NEGATIVE); URINE KETONE 1+ (NEGATIVE); URINE LEUK ESTERASE NEGATIVE (NEGATIVE); URINE NITRITE NEGATIVE (NEGATIVE); URINE PROTEIN 3+ (NEGATIVE); URINE RBC 17 /uL (0-23.9); URINE UROBILINOGEN 0.2 mg/dL (0.2-1.0); URINE WBC 6 /uL (0-25.8)
[2020-01-21] MEDS ORDERED: PANTOPRAZOLE SODIUM 40 MG VIAL ONE (03:04)
[2020-01-21] MEDS ORDERED: METOCLOPRAMIDE HCL INJECTION 10 MG/2 ML VIAL IVPB ONE (03:06)
[2020-01-21] MEDS: PANTOPRAZOLE SODIUM 80 MG in SODIUM CHLORIDE 100 ML IVPB SCH ×2 (03:20→14:24)
[2020-01-21] MEDS ORDERED: LABETALOL HCL 5 MG/1 ML (100MG/20 ML VIAL) IVPUSH ONE (05:33)
--- NOTE | 2020-01-21 07:41 | PN ---
Progress Note (short form) - Note Progress Note: GI CONSULT DICTATED -- PPI INFUSION -- REGLAN TID 10 MG IV -- AVOID NARCOTIC -- CLEAR LIQUID DIET -- SERIAL H/H Q8 -- TENTATIVE NPO MIDNIGHT FOR EGD IF HIS H/H DECREASES OR HE DEVELOPS SIGN OF AN OVERT GI BLEED ( PREVIOUS EGD THIS YEAR FOR SIMILAR SYMPTOM WITHOUT ULCERATIONS).
--- NOTE | 2020-01-21 09:51 | EKG ---
Test Reason : Blood Pressure : / mmHG Vent. Rate : 105 BPM Atrial Rate : 105 BPM P-R Int : 190 ms QRS Dur : 084 ms QT Int : 334 ms P-R-T Axes : 051 029 003 degrees QTc Int : 441 ms SINUS TACHYCARDIA SEPTAL INFARCT , AGE UNDETERMINED ABNORMAL ECG WHEN COMPARED WITH ECG OF 07-JAN-2020 03:44, SEPTAL INFARCT IS NOW PRESENT Confirmed by MD Graham Daniel ([id number]) on 01/21/2020 9:51:01 AM Referred By: Confirmed By:Glen Graham MD
[2020-01-21] MEDS ORDERED: PANTOPRAZOLE SODIUM 40 MG VIAL IVPUSH SCH (10:00)
[2020-01-21] MEDS ORDERED: METOCLOPRAMIDE HCL INJECTION 10 MG/2 ML VIAL IVPB PRN (11:00)
--- NOTE | 2020-01-21 11:37 | PN ---
Progress Note, Physician Chief Complaint: Gastroparesis Coffee ground emesis History of Present Illness: This is a 54 y/o male with a significant past medical history of NIDDM, HTN, Gastroparesis, Osteomyelitis s/p right BKA (01/2019), recent admissions for Gastroparesis 11/05-11/11, 12/03-12/05, 01/06-01/08. Who presents to the ED for coffee ground emesis and abdominal pain. Patient reports having multiple episodes of b ile and dark blood in the emesis and associated abdominal pain. He reports having similar episodes in the past. The patient denies taking any opiates for pain control. Patient denies fever, chills, cough, SOB, WHITLOCK, dizziness, CP, palpitations, diarrhea, constipation, dysuria. Patient denies recent sick contacts or travel. Currently rigorous c/o generalized pain Urine tox + opioids-denies use no abd pain on palpation + coffee ground vomitous, recently had EGD at [facility] - Current Medication List Current Medications: Active Medications Acetaminophen (Ofirmev Injection -) 1,000 mg IVPB Q6H PRN PRN Reason: PAIN LEVEL 6-10 Stop: 01/21/20 22:49 Last Admin: 01/21/20 00:00 Dose: 1,000 mg Documented by: Dextrose/Sodium Chloride (D5-1/2ns -) 1,000 mls @ 83 mls/hr IV ASDIR [facility] Last Admin: 01/21/20 00:42 Dose: 83 mls/hr Documented by: Pantoprazole Sodium 80 mg/ (Sodium Chloride) 100 mls @ 10 mls/hr IVPB Q10H [facility] Stop: 01/24/20 03:05 Last Admin: 01/21/20 03:20 Dose: 10 mls/hr Documented by: Metoclopramide HCl (Reglan Injection -) 10 mg IVPB Q8H PRN PRN Reason: NAUSEA AND/OR VOMITING - Objective Vital Signs: Vital Signs Temperature 97.6 F 01/21/20 07:45 Pulse Rate 96 H 01/21/20 08:30 Respiratory Rate 18 01/21/20 08:30 Blood Pressure 144/90 01/21/20 08:30 O2 Sat by Pulse Oximetry (%) 96 01/21/20 08:30 Constitutional: Yes: Well Nourished, No Distress, Calm Cardiovascular: Yes: Tachycardia Respiratory: Yes: Regular, CTA Bilaterally Gastrointestinal: Yes: Normal Bowel Sounds, Soft Genitourinary: Yes: WNL Musculoskeletal: Yes: Muscle Weakness Extremities: Yes: WNL Edema: No Peripheral Pulses WNL: Yes Neurological: Yes: Alert, Oriented Psychiatric: Yes: Alert, Oriented Labs: CBC, BMP 01/20/20 18:00 01/20/20 18:00 INR, PTT INR 0.92 (0.83-1.09) 01/20/20 18:00 Problem List - Problems (1) Abdominal pain Assessment/Plan: -Seen by GI -His 4th admission Problems reviewed: Yes Code(s): R10.9 - UNSPECIFIED ABDOMINAL PAIN Qualifiers: Abdominal location: unspecified location Qualified Code(s): R10.9 - Unspecified abdominal pain (2) Diabetes Assessment/Plan: -BGM AC HS -IVF -May try clears if no more vomitus -LAst A1c at 6.9 Problems reviewed: Yes Code(s): E11.9 - TYPE 2 DIABETES MELLITUS WITHOUT COMPLICATIONS Qualifiers: Diabetes mellitus type: type 2 (3) Diabetic gastroparesis Assessment/Plan: -Reglan 10 mg IVP Q8H -PPI -IVF Problems reviewed: Yes Code(s): 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
[2020-01-21 11:53] LABS: BASO % 0.3 % (0-2.0); EOS % 0.5 % (0-4.5); HEMATOCRIT 31.5 % (35.4-49); HEMOGLOBIN 10.1 GM/dL (11.7-16.9); LYMPH % 18.2 % (8-40); MEAN CELL VOLUME 78.1 fl (80-96); MEAN PLT VOLUME 8.3 fl (7.5-11.1); MONO % 7.1 % (3.8-10.2); NEUT % 73.9 % (42.8-82.8); PLATELET COUNT 273 K/MM3 (134-434); RBC 4.03 M/mm3 (4.00-5.60); RDW 16.1 % (11.9-15.9); WHITE BLOOD COUNT 12.4 K/mm3 (4.0-10.0)
[2020-01-21] MEDS: ACETAMINOPHEN 1000 MG/100 ML VIAL (NON FORMULARY) IVPB PRN ×2 (12:00)
[2020-01-21 12:10] LABS: MAGNESIUM 1.9 mg/dL (1.8-2.4)
[2020-01-21] MEDS ORDERED: HYDROmorphone HCl 2 MG/ML VIAL ONE (12:12)
[2020-01-21] MEDS ORDERED: HYDROmorphone HCl 2 MG/ML VIAL IVPUSH ONE (12:15)
[2020-01-21] MEDS ORDERED: METOCLOPRAMIDE HCL INJECTION 10 MG/2 ML VIAL ONE ×2 (12:18→20:31)
[2020-01-21 12:30] LABS: ALBUMIN 3.5 g/dl (3.4-5.0); BILIRUBIN,TOTAL 0.5 mg/dL (0.2-1); BLOOD UREA NITROGEN 14.2 mg/dL (7-18); CALCIUM 9.2 mg/dL (8.5-10.1); CREATININE 1.6 mg/dL (0.55-1.3); TOT PROT 7.4 g/dl (6.4-8.2)
[2020-01-21] MEDS: METOCLOPRAMIDE HCL INJECTION 10 MG/2 ML VIAL IVPB SCH ×2 (12:30→21:21)
--- NOTE | 2020-01-21 12:54 | CONS ---
DATE OF CONSULTATION: DATE OF DICTATION: 01/21/2020 GASTROENTEROLOGY CONSULTATION Patient is a 54-year-old man who is known to me from previous admissions at this hospital as well as other hospitals. He has a past medical history significant for diabetes, hypertension, gastroparesis, osteomyelitis, status post right BKA in 2019, recent admissions for gastroparesis in this institution starting in October, and since then, he has had, this would be, his 6th hospitalization. At the outside facility, he had approximately another 3 to 4 admissions there, at which time an upper endoscopy was done for similar symptoms of coffee-ground emesis, nausea, vomiting. The endoscopy did not reveal any ulcerations or acute bleed. He now presents to the hospital with coffee-ground emesis, epigastric abdominal pain, multiple episodes of bile and dark blood in the emesis and associated weakness. He states these symptoms are similar to previous episodes in the past. He denies taking any NSAIDs. He states he has been compliant with his diet and medical therapy. Patient denies any syncope, dizziness, melena, or hematochezia. PAST MEDICAL AND SURGICAL HISTORY: As listed in the HPI. ALLERGIES: SESAME SEED. SOCIAL HISTORY: Does not use alcohol or drink. No drug abuse. FAMILY HISTORY: Noncontributory. HOME MEDICATIONS: Were reviewed and include Protonix, Senna, acetaminophen, amlodipine, gabapentin, labetalol, Zofran, pantoprazole, MiraLAX, and metoclopramide. REVIEW OF SYSTEMS: As per the HPI. PHYSICAL EXAMINATION: Vital Signs: Temperature 97, pulse 96, blood pressure 144/90, pulse oximetry 96% on room air. General: No acute distress. HEENT: Anicteric sclerae. Cardiovascular: S1, S2. Regular rate and rhythm. Lungs: Clear anteriorly. Abdomen: Soft and nontender. Extremities: Without edema. BKA noted. He is holding an emesis basin, and there is no gross blood noted in the vomitus at this time. LABORATORY: White blood cell count 12.4, hemoglobin 10/hematocrit 31 on admission it was hemoglobin 11.7/hematocrit 35, MCV 78, platelet count 273. INR 0.9. Sodium 139, potassium 4.2. BUN 13/creatinine 1.7. Glucose 118. Total bilirubin 0.4, AST 16, ALT 18, alkaline phosphatase 119. Troponin is negative. Amylase was canceled. Lipase 48. Urine 3+ blood. Stool for occult blood is negative. Opiate screen is positive. COVID-19 is pending. He had an abdominal x-ray revealed a nonspecific bowel pattern with no sign of ileus or obstruction, no free air, no sign of gastroparesis, some retained stool. Chest x-ray no acute pathology. IMPRESSION: Nausea, vomiting, most likely secondary to his underlying gastroparesis secondary to diabetes. His opiate screen is positive. These medications are likely worsening his present symptoms. There is no sign of an overt gastrointestinal bleed at this time. He is hemodynamically stable. RECOMMENDATION: Trend hemoglobin and hematocrit every 8 hours while hospitalized. Would start him on Protonix infusion. Avoid NSAIDs. Avoid narcotics. Antiemetics including Reglan 10 mg IV t.i.d. and Zofran p.r.n. as needed. He can be tried on a clear liquid diet. If his hemoglobin and hematocrit today decreases, he will be scheduled for a diagnostic upper endoscopy on . I will tentatively make him n.p.o. midnight for potential procedure on . If his hemoglobin and hematocrit remain stable, there would be no indication for a repeat endoscopy at this time, unless, again, he develops overt bleeding. Will follow. DO ESTEFANY BALTAZAR/[id number]
[2020-01-21] MEDS ORDERED: METOPROLOL TARTRATE 5 MG/5 ML VIAL IVPB PRN (13:15)
[2020-01-21] MEDS ORDERED: NALOXONE HCL 0.4 MG/ML VIAL IVPUSH PRN (13:41)
[2020-01-22] MEDS ORDERED: METOCLOPRAMIDE HCL INJECTION 10 MG/2 ML VIAL ONE ×2 (04:26→11:50)
[2020-01-22] MEDS ORDERED: ACETAMINOPHEN 1000 MG/100 ML VIAL (NON FORMULARY) IVPB PRN ×2 (04:55→14:32)
[2020-01-22] MEDS ORDERED: ACETAMINOPHEN INJECTION 100 ML IVPB ONE (04:58)
[2020-01-22] MEDS: METOCLOPRAMIDE HCL INJECTION 10 MG/2 ML VIAL IVPB SCH ×3 (05:07→21:07)
[2020-01-22 09:28] LABS: HEMOGLOBIN 9.8 GM/dL (11.7-16.9); MCH 25.7 pg (25.7-33.7); MCHC 32.6 g/dl (32.0-35.9); MEAN PLT VOLUME 7.8 fl (7.5-11.1); PLATELET COUNT 234 K/MM3 (134-434); RDW 16.1 % (11.9-15.9); WHITE BLOOD COUNT 8.3 K/mm3 (4.0-10.0)
[2020-01-22] MEDS ORDERED: PANTOPRAZOLE SODIUM 40 MG VIAL IVPUSH SCH (10:00)
[2020-01-22 10:01] LABS: BLOOD UREA NITROGEN 10.6 mg/dL (7-18); CALCIUM 8.6 mg/dL (8.5-10.1); CREATININE 1.6 mg/dL (0.55-1.3); POTASSIUM 3.7 mmol/L (3.5-5.1)
[2020-01-22] MEDS ORDERED: PANTOPRAZOLE SODIUM 40 MG VIAL ONE (10:02)
--- NOTE | 2020-01-22 11:30 | PN ---
Progress Note, Physician Chief Complaint: Gastroparesis Coffee ground emesis History of Present Illness: This is a 54 y/o male with a significant past medical history of NIDDM, HTN, Gastroparesis, Osteomyelitis s/p right BKA (01/2019), recent admissions for Gastroparesis 11/05-11/11, 12/03-12/05, 01/06-01/08. Who presents to the ED for coffee ground emesis and abdominal pain. Patient reports having multiple episodes of b ile and dark blood in the emesis and associated abdominal pain. He reports having similar episodes in the past. The patient denies taking any opiates for pain control. Patient denies fever, chills, cough, SOB, WHITLOCK, dizziness, CP, palpitations, diarrhea, constipation, dysuria. Patient denies recent sick contacts or travel. Currently rigorous c/o generalized pain Urine tox + opioids-denies use no abd pain on palpation + coffee ground vomitous, recently had EGD at [facility] 01/22/20: H/H gradual drop Nausea but no vomiting since overnight, wants to eat still c/o abd pain I was able to obtain last EGD report from [facility] LHC: Gastrointestinal Endoscopy and Bronchoscopy Suites Patient Name: Daniele Laird Procedure Date: 10/13/2019 8:03 AM Date of : 1965 Attending MD: Anaya Daniel MD Instrument Name: [id number] EGD Procedure: Upper GI endoscopy Indications: Hematemesis Providers: Anaya Daniel MD, Sima Okeefe RN, Mila Oakley, Rn Hematology Medicines: Monitored Anesthesia Care Complication: No immediate complications. Procedure: After obtaining informed consent, the endoscope was passed under direct vision. Throughout the procedure, the patient's blood pressure, pulse, and oxygen saturations were monitored continuously. The Endoscope was introduced through the mouth, and advanced to the second part of duodenum. The upper GI endoscopy was accomplished without difficulty. The patient tolerated the procedure well. Findings: The examined esophagus was normal. Diffuse moderately erythematous mucosa without bleeding was found in the gastric antrum as well as fundus. Biopsies were taken with a cold forceps for histology. Estimated blood loss: none. The examined duodenum was normal. Total Procedure Duration: 0 hours 3 minutes 41 seconds Impression: - Normal esophagus. - Erythematous mucosa in the antrum. Biopsied. No puja jones tear or ulcer noted on this exam. - Normal examined duodenum. Recommendation: - [facility]. - Advance diet as tolerated. - Continue present medications. - outpt colonoscopy - Await pathology results. - Current Medication List Current Medications: Active Medications Acetaminophen (Ofirmev Injection -) 1,000 mg IVPB Q6H PRN PRN Reason: PAIN LEVEL 6-10 Stop: 01/23/20 04:55 Last Admin: 01/22/20 05:02 Dose: 1,000 mg Documented by: Dextrose/Sodium Chloride (D5-1/2ns -) 1,000 mls @ 83 mls/hr IV ASDIR [facility] Last Admin: 01/21/20 21:52 Dose: 83 mls/hr Documented by: Metoclopramide HCl (Reglan Injection -) 10 mg IVPB Q8H [facility] Last Admin: 01/22/20 05:07 Dose: 10 mg Documented by: Metoprolol Tartrate (Lopressor Injection -) 5 mg IVPB Q4H PRN PRN Reason: HYPERTENSION Naloxone HCl (Narcan -) 0.4 mg IVPUSH ONCE PRN PRN Reason: RESPIRATORY DEPRESSION Pantoprazole Sodium (Protonix Iv) 40 mg IVPUSH DAILY [facility] Last Admin: 01/22/20 10:35 Dose: 40 mg Documented by: - Objective Vital Signs: Vital Signs Temperature 98.5 F 01/22/20 07:06 Pulse Rate 98 H 01/22/20 07:06 Respiratory Rate 16 01/22/20 01:22 Blood Pressure 106/67 01/22/20 07:06 O2 Sat by Pulse Oximetry (%) 99 01/22/20 07:40 Constitutional: Yes: Well Nourished, No Distress, Calm Cardiovascular: Yes: Regular Rate and Rhythm Respiratory: Yes: Regular, CTA Bilaterally Gastrointestinal: Yes: Normal Bowel Sounds, Soft Genitourinary: Yes: WNL Musculoskeletal: Yes: WNL Extremities: Yes: Amputation Edema: No Peripheral Pulses WNL: Yes Neurological: Yes: Alert, Oriented Psychiatric: Yes: Alert, Oriented Labs: CBC, BMP 01/22/20 09:20 01/22/20 09:20 INR, PTT INR 0.92 (0.83-1.09) 01/20/20 18:00 Problem List - Problems (1) Abdominal pain Assessment/Plan: -Seen by GI -His 4th admission -IV acetaminophen for pain -Avoid narcotics Problems reviewed: Yes Code(s): R10.9 - UNSPECIFIED ABDOMINAL PAIN Qualifiers: Abdominal location: unspecified location Qualified Code(s): R10.9 - Unspecified abdominal pain (2) Diabetes Assessment/Plan: -BGM AC HS -IVF -Clear liquid diet -Last A1c at 6.9 Problems reviewed: Yes Code(s): E11.9 - TYPE 2 DIABETES MELLITUS WITHOUT COMPLICATIONS Qualifiers: Diabetes mellitus type: type 2 (3) Diabetic gastroparesis Assessment/Plan: -Reglan 10 mg IVP Q8H -PPI -IVF Problems reviewed: Yes Code(s): 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
[2020-01-22] MEDS ORDERED: NALOXONE HCL 0.4 MG/ML VIAL IVPUSH PRN (14:32)
[2020-01-22] MEDS ORDERED: METOPROLOL TARTRATE 5 MG/5 ML VIAL IVPB PRN (14:32)
[2020-01-22] MEDS: DEXTROSE 5%-0.45% SALINE 1,000 ML IV SCH ×2 (15:04→21:16)
--- NOTE | 2020-01-22 15:36 | PN.GI ---
GI Progress Note Subjective: Spoke with Jerry Wood [employer]OCK [employer]ER earlier. Mr. Laird was compaining of diffuse abdominal pain. Advised CT scan A/P w/ PO contrast. Mr. Laird having clear liquids, wants diet advanced. Hgb at his baseline. - Objective Vital Signs: Vital Signs Temperature 97.6 F 01/22/20 15:00 Pulse Rate 92 H 01/22/20 15:00 Respiratory Rate 22 H 01/22/20 15:00 Blood Pressure 141/94 01/22/20 15:00 O2 Sat by Pulse Oximetry (%) 99 01/22/20 15:00 Constitutional: Calm Eyes: No: Sclera Icterus Cardiovascular: Yes: Regular Rate and Rhythm Respiratory: Yes: CTA Bilaterally Gastrointestinal Inspection: No: Distention ...Auscultate: Yes: Normoactive Bowel Sounds ...Palpate: Yes: Soft, Tenderness (TTP left abdomen). No: Guarding Neurological: Yes: Alert Labs: CBC, BMP 01/22/20 09:20 01/22/20 09:20 INR, PTT INR 0.92 (0.83-1.09) 01/20/20 18:00 Hepatic Panel Total Bilirubin 0.5 mg/dL (0.2-1) 01/21/20 11:30 AST 10 U/L (15-37) L 01/21/20 11:30 ALT 15 U/L (13-61) 01/21/20 11:30 Alkaline Phosphatase 108 U/L (45-117) 01/21/20 11:30 Albumin 3.5 g/dl (3.4-5.0) 01/21/20 11:30 Problem List - Problems (1) Coffee ground emesis Assessment/Plan: With abdominal pain Blood pressure elevated again on admission. ? if secondary to the vomiting and pain or part of the problem. 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 Joe 01/30 Protonix 40mg once daily Obtain previous records of upper endoscopy at [place]. States this was 2 months ago. Code(s): K92.0 - HEMATEMESIS
[2020-01-22 18:12] VITALS: BMI 27.0
[2020-01-23] MEDS ORDERED: MELATONIN 5 MG TABLETS PO ONE (02:28)
[2020-01-23] MEDS ORDERED: METOCLOPRAMIDE HCL 10 MG TABLET (FP) PO ONE (05:25)
[2020-01-23] MEDS: METOCLOPRAMIDE HCL INJECTION 10 MG/2 ML VIAL IVPB SCH (05:32)
[2020-01-23 08:59] LABS: BASO % 0.2 % (0-2.0); EOS % 1.8 % (0-4.5); HEMOGLOBIN 8.8 GM/dL (11.7-16.9); LYMPH % 23.9 % (8-40); MCH 25.6 pg (25.7-33.7); MCHC 32.5 g/dl (32.0-35.9); MEAN CELL VOLUME 78.7 fl (80-96); MEAN PLT VOLUME 8.4 fl (7.5-11.1); MONO % 11.7 % (3.8-10.2); NEUT % 62.4 % (42.8-82.8); PLATELET COUNT 218 K/MM3 (134-434); RBC 3.43 M/mm3 (4.00-5.60); RDW 16.3 % (11.9-15.9); WHITE BLOOD COUNT 8.5 K/mm3 (4.0-10.0)
[2020-01-23 09:20] LABS: ALBUMIN 2.9 g/dl (3.4-5.0); BILIRUBIN,TOTAL 0.9 mg/dL (0.2-1); BLOOD UREA NITROGEN 11.5 mg/dL (7-18); CALCIUM 8.7 mg/dL (8.5-10.1); CREATININE 1.6 mg/dL (0.55-1.3); POTASSIUM 3.6 mmol/L (3.5-5.1); TOT PROT 6.4 g/dl (6.4-8.2)
[2020-01-23] MEDS ORDERED: PANTOPRAZOLE SODIUM 40 MG VIAL IVPUSH SCH (10:00)
--- NOTE | 2020-01-23 10:36 | PN ---
Progress Note, Physician Chief Complaint: Gastroparesis Coffee ground emesis History of Present Illness: This is a 54 y/o male with a significant past medical history of NIDDM, HTN, Gastroparesis, Osteomyelitis s/p right BKA (01/2019), recent admissions for Gastroparesis 11/05-11/11, 12/03-12/05, 01/06-01/08. Who presents to the ED for coffee ground emesis and abdominal pain. Patient reports having multiple episodes of b ile and dark blood in the emesis and associated abdominal pain. He reports having similar episodes in the past. The patient denies taking any opiates for pain control. Patient denies fever, chills, cough, SOB, WHITLOCK, dizziness, CP, palpitations, diarrhea, constipation, dysuria. Patient denies recent sick contacts or travel. Currently rigorous c/o generalized pain Urine tox + opioids-denies use no abd pain on palpation + coffee ground vomitous, recently had EGD at [facility] 01/22/20: H/H gradual drop Nausea but no vomiting since overnight, wants to eat still c/o abd pain I was able to obtain last EGD report from [facility] LHC: Gastrointestinal Endoscopy and Bronchoscopy Suites Patient Name: Daniele Laird Procedure Date: 10/13/2019 8:03 AM Date of : 1965 Attending MD: Anaya Daniel MD Instrument Name: [id number] EGD Procedure: Upper GI endoscopy Indications: Hematemesis Providers: Anaya Daniel MD, Sima Okeefe RN, Mila Oakley, Automatic [employer] Screen [employer]inter Medicines: Monitored Anesthesia Care Complication: No immediate complications. Procedure: After obtaining informed consent, the endoscope was passed under direct vision. Throughout the procedure, the patient's blood pressure, pulse, and oxygen saturations were monitored continuously. The Endoscope was introduced through the mouth, and advanced to the second part of duodenum. The upper GI endoscopy was accomplished without difficulty. The patient tolerated the procedure well. Findings: The examined esophagus was normal. Diffuse moderately erythematous mucosa without bleeding was found in the gastric antrum as well as fundus. Biopsies were taken with a cold forceps for histology. Estimated blood loss: none. The examined duodenum was normal. Total Procedure Duration: 0 hours 3 minutes 41 seconds Impression: - Normal esophagus. - Erythematous mucosa in the antrum. Biopsied. No puja jones tear or ulcer noted on this exam. - Normal examined duodenum. Recommendation: - Return patient to [facility] for [facility]. - Advance diet as tolerated. - Continue present medications. - outpt colonoscopy - Await pathology results. - Current Medication List Current Medications: Active Medications Dextrose/Sodium Chloride (D5-1/2ns -) 1,000 mls @ 83 mls/hr IV ASDIR [facility] Last Admin: 01/22/20 21:16 Dose: 83 mls/hr Documented by: Metoclopramide HCl (Reglan Injection -) 10 mg IVPB Q8H [facility] Last Admin: 01/23/20 05:32 Dose: Not Given Documented by: Metoprolol Tartrate (Lopressor Injection -) 5 mg IVPB Q4H PRN PRN Reason: HYPERTENSION Naloxone HCl (Narcan -) 0.4 mg IVPUSH ONCE PRN PRN Reason: RESPIRATORY DEPRESSION Pantoprazole Sodium (Protonix Iv) 40 mg IVPUSH DAILY [facility] - Objective Vital Signs: Vital Signs Temperature 98.1 F 01/23/20 06:00 Pulse Rate 78 01/23/20 06:00 Respiratory Rate 18 01/23/20 06:00 Blood Pressure 136/81 01/23/20 06:00 O2 Sat by Pulse Oximetry (%) 98 01/23/20 06:00 Constitutional: Yes: Well Nourished, No Distress, Calm Cardiovascular: Yes: Regular Rate and Rhythm Respiratory: Yes: Regular, CTA Bilaterally Gastrointestinal: Yes: Normal Bowel Sounds, Soft Genitourinary: Yes: WNL Musculoskeletal: Yes: WNL Extremities: Yes: Amputation Edema: No Peripheral Pulses WNL: Yes Neurological: Yes: Alert, Oriented Psychiatric: Yes: Alert, Oriented Labs: CBC, BMP 01/23/20 07:30 01/23/20 07:30 INR, PTT INR 0.92 (0.83-1.09) 01/20/20 18:00 Problem List - Problems (1) Abdominal pain Assessment/Plan: -Seen by GI -His 4th admission -IV acetaminophen for pain -Avoid narcotics Problems reviewed: Yes Code(s): R10.9 - UNSPECIFIED ABDOMINAL PAIN Qualifiers: Abdominal location: unspecified location Qualified Code(s): R10.9 - Unspecified abdominal pain (2) Diabetes Assessment/Plan: -BGM AC HS -IVF -Clear liquid diet -Last A1c at 6.9 Problems reviewed: Yes Code(s): E11.9 - TYPE 2 DIABETES MELLITUS WITHOUT COMPLICATIONS Qualifiers: Diabetes mellitus type: type 2 (3) Diabetic gastroparesis Assessment/Plan: -Reglan 10 mg IVP Q8H -PPI -IVF Problems reviewed: Yes Code(s): 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
[2020-01-23] MEDS ORDERED: SENNOSIDES 8.6MG TABLET (FP) PO PRN (10:37)
[2020-01-23] MEDS ORDERED: LABETALOL HCL 200 MG TABLET (FP) PO SCH (11:00)
[2020-01-23] MEDS: PANTOPRAZOLE 40 MG TABLET PO SCH (11:38)
[2020-01-23] MEDS: amLODIPine BESYLATE 5 MG TABLET (FP) PO SCH ×2 (11:39→11:53)
[2020-01-23] MEDS: METOCLOPRAMIDE HCL 10 MG TABLET (FP) PO SCH ×2 (11:39→17:40)
[2020-01-23] MEDS ORDERED: FERRIC CARBOXYMALTOSE 750 MG in SODIUM CHLORIDE 250 ML IVPB ONE (14:00)
--- NOTE | 2020-01-23 14:15 | PN.GI ---
GI Progress Note Subjective: No acute events Wants to eat Tolerated PO contrast - Objective Vital Signs: Vital Signs Temperature 98.1 F 01/23/20 06:00 Pulse Rate 78 01/23/20 06:00 Respiratory Rate 18 01/23/20 06:00 Blood Pressure 136/81 01/23/20 06:00 O2 Sat by Pulse Oximetry (%) 98 01/23/20 06:00 Constitutional: Calm Eyes: No: Sclera Icterus Cardiovascular: Yes: Regular Rate and Rhythm Respiratory: Yes: CTA Bilaterally Gastrointestinal Inspection: No: Distention ...Auscultate: Yes: Normoactive Bowel Sounds ...Palpate: Yes: Soft. No: Hepatomegaly, Splenomegaly, Tenderness Edema: No (No LE edema) Labs: CBC, BMP 01/23/20 07:30 01/23/20 07:30 INR, PTT INR 0.92 (0.83-1.09) 01/20/20 18:00 Problem List - Problems (1) Coffee ground emesis Assessment/Plan: No further vomiting Awaiting CT scan A/P with PO contrast Other recommendation per previous notes Code(s): K92.0 - HEMATEMESIS
[2020-01-23] MEDS: POLYETHYLENE GLYCOL 3350 119 GM BTL PO SCH (21:33)
[2020-01-24] MEDS ORDERED: MELATONIN 5 MG TABLETS PO PRN (00:52)
[2020-01-24] MEDS: METOCLOPRAMIDE HCL 10 MG TABLET (FP) PO SCH ×3 (06:04→17:06)
--- NOTE | 2020-01-24 07:37 | PN.GI ---
GI Progress Note Subjective: feeling better tolerate full liquid diet ; wants to go home - Objective Vital Signs: Vital Signs Temperature 97.9 F 01/24/20 06:00 Pulse Rate 75 01/24/20 06:00 Respiratory Rate 20 01/24/20 06:00 Blood Pressure 130/78 01/24/20 06:00 O2 Sat by Pulse Oximetry (%) 98 01/24/20 06:00 Constitutional: Well Nourished, No Distress, Calm Eyes: Yes: WNL Cardiovascular: Yes: WNL, Regular Rate and Rhythm Respiratory: Yes: WNL, Regular, CTA Bilaterally Gastrointestinal Inspection: Yes: WNL ...Auscultate: Yes: Normoactive Bowel Sounds Musculoskeletal: Yes: WNL Extremities: Yes: WNL Labs: CBC, BMP 01/23/20 07:30 01/23/20 07:30 INR, PTT INR 0.92 (0.83-1.09) 01/20/20 18:00 Problem List - Problems (1) Coffee ground emesis Assessment/Plan: -- advance to low fiber diet -- await ct scan with po contrast - this can be done as outpt -- ppi & reglan tidac -- bowel regimen -- If he improves he can be discharged with outpt GI f./u Code(s): K92.0 - HEMATEMESIS (2) Abdominal pain Code(s): R10.9 - UNSPECIFIED ABDOMINAL PAIN Qualifiers: Abdominal location: unspecified location Qualified Code(s): R10.9 - Unspecified abdominal pain (3) Diabetic gastroparesis Code(s): 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
[2020-01-24] MEDS: POLYETHYLENE GLYCOL 3350 119 GM BTL PO SCH (09:02)
[2020-01-24] MEDS: PANTOPRAZOLE 40 MG TABLET PO SCH (09:03)
[2020-01-24 09:21] VITALS: TEMP 98
--- NOTE | 2020-01-24 14:54 | DS ---
Physical Examination Vital Signs: Vital Signs Temperature 98 F 01/24/20 09:20 Pulse Rate 72 01/24/20 09:20 Respiratory Rate 20 01/24/20 09:20 Blood Pressure 134/68 01/24/20 09:20 O2 Sat by Pulse Oximetry (%) 99 01/24/20 09:20 Constitutional: Yes: No Distress, Calm Eyes: Yes: Conjunctiva Clear HENT: Yes: Normocephalic Cardiovascular: Yes: Regular Rate and Rhythm Respiratory: Yes: Regular, CTA Bilaterally Gastrointestinal: Yes: Normal Bowel Sounds, Soft Musculoskeletal: Yes: WNL Extremities: Yes: WNL Edema: No Neurological: Yes: Alert, Oriented Psychiatric: Yes: Alert, Oriented Labs: CBC, BMP 01/23/20 07:30 01/23/20 07:30 Laboratory Results - last 24 hr 01/23/20 20:49 POC Glucometer 134 Discharge Summary Problems reviewed: Yes Reason For Visit: COFFEE GROUND EMESIS Current Active Problems Coffee ground emesis (Acute) Encounter for screening laboratory testing for COVID-19 virus (Acute) GI bleed (Acute) Procedures: Principal: EKG, CXR, Abdominal xray, CTAP Hospital Course: This is a 54 y/o male with a significant past medical history of NIDDM, HTN, Gastroparesis, Osteomyelitis s/p right BKA (01/2019), recent admissions for Gastroparesis 11/05-11/11, 12/03-12/05, 01/06-01/08. Who presents to the ED for coffee ground emesis and abdominal pain. Patient reports having multiple episodes of bile and dark blood in the emesis and associated abdominal pain. He reports having similar episodes in the past. The patient denies taking any opiates for pain control. Patient denies fever, chills, cough, SOB, WHITLOCK, dizziness, CP, palpitations, diarrhea, constipation, dysuria. Patient denies recent sick contacts or travel. Patient was sen by GI and was started on PPI infusion, Reglan TID IV, clear liquid diet, monitoring H/H q8h. He did not undergo EGD while inpatient due to EGD done 10/13/19 at [facility]. EGD showed normal esophagus, erythematous ucosa in antrum, normal duodenum. Due to complaints of abdominal pain during admission CTAP was done. CTAP shows 1.1cm nodular opacity partially visualized at the RLL. Labs show Hg 8.8, repeat Hg ordered. If Hg stay stable he can be discharged home. He denies any abdominal pain, chest pain, palpitations. Condition: Stable - Instructions Diet, Activity, Other Instructions: Follow up with PCP Dr Giles within 48hrs of discharge Follow up with GI as scheduled o 01/[address] Stewart--pulmonary nodule on CTAP will need outpatiet Chest CT scan return to ER if severe pain, abdominal pain, chest pain, or respiratory distress continue with medication as presribed Referrals: Rosalind Giles MD [Primary Care Provider] - Nacho Stewart MD [Staff Physician] - Disposition: HOME - Home Medications Comprehensive Discharge Medication List: Ambulatory Orders Pantoprazole Sodium [Protonix -] 40 mg PO DAILY #30 tablet.ec 11/12/19 Sennosides [Senna -] 2 tab PO HS PRN #60 tablet 11/12/19 Acetaminophen [Tylenol .Regular Strength -] 650 mg PO Q4H PRN #90 tablet 12/06/19 Amlodipine Besylate [Norvasc -] 5 mg PO DAILY #30 tablet 12/06/19 Gabapentin [Neurontin -] 300 mg PO TID #90 capsule 12/06/19 Labetalol HCl [Normodyne -] 200 mg PO BID #60 tablet 12/06/19 Ondansetron [Zofran *Odt*] 4 mg SL Q6H PRN #30 tab 12/06/19 Pantoprazole Sodium [Protonix -] 40 mg PO DAILY #30 tab 12/06/19 Polyethylene Glycol 3350 [Miralax 119 gm Btl -] 17 gm PO TID #1 bottle 12/06/19 Metoclopramide HCl [Reglan -] 5 mg PO TIDAC PRN #90 tablet 01/09/20
[2020-01-24 16:07] VITALS: BP 141/79; PULSE 94
[2020-01-24 16:44] LABS: HEMOGLOBIN 9.6 GM/dL (11.7-16.9); MCH 25.8 pg (25.7-33.7); MCHC 32.1 g/dl (32.0-35.9); MEAN CELL VOLUME 80.2 fl (80-96); MEAN PLT VOLUME 8.6 fl (7.5-11.1); PLATELET COUNT 231 K/MM3 (134-434); RBC 3.74 M/mm3 (4.00-5.60); RDW 15.8 % (11.9-15.9); WHITE BLOOD COUNT 6.3 K/mm3 (4.0-10.0)
== END 2020-01-24 18:00 | disposition home or self-care (01) | DRG 379 ==
LOC: JER 16:52 → JERBED 19:59 → J4W 01-22 12:36 → J5S 01-22 14:15
PROVIDERS: ADMIT Internal Medicine; ATTEND Family Medicine
DX: K92.0 Hematemesis (principal); E11.43 Type 2 diabetes mellitus with diabetic autonomic (poly)neuropathy; T40.2X5A Adverse effect of other opioids, initial encounter; D50.9 Iron deficiency anemia, unspecified; G54.6 Phantom limb syndrome with pain; R10.9 Unspecified abdominal pain; K31.84 Gastroparesis; I10 Essential (primary) hypertension; R06.81 Apnea, not elsewhere classified; K59.09 Other constipation; Z20.828 Contact with and (suspected) exposure to other viral communicable diseases; Z89.511 Acquired absence of right leg below knee
CPT/HCPCS: 36415; 71045-TC-FY; 74019-TC-FY; 74176-TC; 80048; 80053; 80074; 80307; 81003; 82150; 82272; 82550; 82553; 82728; 82962; 83540; 83550; 83690; 83735; 84484; 85025; 85027; 85610; 85730; 86850; 86900; 86901; 87086; 93005; 93010; 99285-25; C9803; J0131; U0003

== ENCOUNTER 2020-02-03 02:01 | Inpatient (IN) | payer MEDICARE, OTHER ==
--- OUTSIDE RECORDS SUMMARY | 2020-02-03 02:33 | XMS ---
:1965 Author Organization [facility] Care Team Providers Name Role Phone Namrata [...] Unavailable Manish Unavailable Unavailable Manish Unavailable Unavailable Gumzan Unavailable Unavailable Emmie Walker MD Unavailable Unavailable Emmie Walker MD Unavailable Unavailable Emmie Walker MD Unavailable Unavailable Emmie Walker MD Unavailable Unavailable MD Pavel Unavailable Unavailable Simone Hoff MD Unavailable Unavailable Simone Hoff MD Unavailable Unavailable Simone Hoff MD Unavailable Unavailable Simone Hoff MD Unavailable Unavailable Carrero Unavailable Unavailable Balkir Unavailable Unavailable MD Osei Unavailable Unavailable MD Osei Unavailable Unavailable MD Osei Unavailable Unavailable MD Osei Unavailable Unavailable Other Unavailable Unavailable Zaki, M Unavailable Unavailable Yardeni Unavailable Unavailable Armin, H Unavailable Unavailable MD Homero Unavailable Unavailable Cornelius CLINTON, Physician A Unavailable Unavailable MD Yelitza Unavailable Unavailable LUIS MIGUEL DOUGLASS Unavailable Unavailable Kenya Cervantes Unavailable Unavailable MD Deisy Unavailable Unavailable CANONICO Unavailable Unavailable Marizol CLINTON, Physician L Unavailable Unavailable Jeremie Unavailable Unavailable CHANTAL, N Unavailable Jon Back Unavailable Unavailable MD Deborah Unavailable Unavailable Fishman, R Unavailable Unavailable Adin, DESK CLERKS SUPERVISOR Unavailable Unavailable Arbolino Unavailable Unavailable Angel M Unavailable Unavailable MD PRETTY Unavailable Unavailable Maynor Chao MD Unavailable Unavailable Aurisicchijasper N Unavailable Unavailable Aurisicchijasper N Unavailable Unavailable Aurisicchio N Unavailable Unavailable Aurisicchijasper N Unavailable Unavailable Aurisicchio N Unavailable Unavailable Evangelista, J DO Unavailable Unavailable Evangelista, J DO Unavailable Unavailable Evangelista, J DO Unavailable Unavailable Evangelista, J DO Unavailable Unavailable Bathilary Reilly Unavailable Unavailable Dionisio Unavailable Unavailable Care Unavailable Unavailable Joe Unavailable Unavailable Solitario CLINTON, Physician Unavailable Unavailable MD Kaleb Unavailable Unavailable MD Montrell Unavailable Unavailable Mic CLINTON, Physician B Unavailable Unavailable SARA SCOTT Unavailable Unavailable ER Unavailable Unavailable MD DONELL Unavailable Unavailable Kanrochelle Kasi Unavailable Unavailable Leda, DO Unavailable Unavailable Cappa, DPM Unavailable Unavailable MD Mago Unavailable Unavailable BICHARA Unavailable Unavailable MD Adriana Unavailable Unavailable Shelli Unavailable Unavailable MD Dinorah Unavailable Unavailable Close, M Unavailable Unavailable Church, C Unavailable Unavailable Zuckerberg, N Unavailable Unavailable MD SWATHI Unavailable Unavailable Rachael Brunson MD Unavailable Unavailable Luong Unavailable Unavailable MD Xiao Unavailable Unavailable Escobar Lares Unavailable Unavailable EdwinWILLAM enriquez Unavailable Unavailable Ronnell Joe Unavailable Unavailable Re-disclosure [...] is protected by Article 27-F of the [facility] Public Health law. If you continue you may haveaccess to information: Regarding HIV / AIDS; Provided by facilities licensed or operated by the [facility] Office of Mental Health; or Provided by the [facility] Office for People With Developmental Disabilities. If such information is present, then the following [facility] mandated warning applies: This information has [...] law may result in a fine or fci sentence or both. A general authorization for the release of medical or other information is NOT sufficient authorization for further disclosure. Allergies and Adverse Reactions Type Description Substance Reaction Status Data Source(s ) 1 SIMON SEED SIMON SEED Nausea / Vomiting NEXTGEN (moderate) 3 ([facility]) 1 sesame oil sesame oil Itching (mild) NEXTGEN ([facility]) Food allergy SESAME OIL SESAME OIL Nuvance [facility] Drug allergy Dilaudid Dilaudid exacerbate Nuvance [facility] gastroparesis [facility] Drug allergy No Known No Known [place] [facility] Allergies Allergies - [facility] Allergy to Allergy to No known drug NETSMART substance substance allergy ([facility]) simon seed simon seed VOMITING [facility] Food allergy sesame seed sesame seed ANAPHYLAXIS [facility] Encounters Encounter Providers Location Date Indications Data Source(s ) Outpatient Attender: Maurice 01/28/2020 [facility] 11[facility]21[facility]00 AM Medical - [facility]) Outpatient Attender: Maurice 01/26/2020 NEXTGEN ([facility] Carrero 03:38:00 PM Medical - [facility]) Outpatient Attender: Shanon 01/21/2020 NEXTGEN ([facility] Zaki 02:19:00 PM Medical - [facility]) Outpatient Attender: Shanon 01/08/2020 NEXTGEN ([facility] HollanderReferrer: 03:20:00 PM Medic [place] Shanon [facility]) Outpatient Attender: Shanon 01/01/2020 NEXTGEN ([facility] HollanderReferrer: 11:26:00 AM Medic al - [place] [employer]) Outpatient Attender: Shanon 12/31/2019 NEXTGEN ([facility] Zaki 11:08:00 AM Medical - [facility]) Outpatient Attender: Shanon 12/22/2019 NEXTGEN ([facility] HollanderReferrer: 04:48:00 PM Medic al [place] Shanon [facility]) Outpatient Attender: Shanon 12/11/2019 NEXTGEN ([facility] HollanderReferrer: 03:16:00 PM Medic al - [place] Shanon [facility]) Outpatient Attender: Perico 12/03/2019 NEXTGEN ([facility] BillyReferrer: 08:00:00 AM Medica l - [place] Shanon [facility]) Outpatient Attender: Merrick 11/28/2019 NEXTGEN ([facility] Damariseferrer: 01:45:00 PM Medi beata [place] Shanon [facility]) Outpatient Attender: Shanon 11/03/2019 NEXTGEN ([facility] HollanderReferrer: 03:15:00 PM Medic al - [place] [facility] [employer]) Outpatient Attender: Aracely 11/03/2019 NEXTGE N ([facility] Joe 02:28:00 PM Medical - [facility]) Outpatient Attender: Shanon 11/03/2019 NEXTGEN ([facility] Zaki 12:54:00 PM Medical - [place] EDT [facility]) Outpatient Attender: Shanon 10/31/2019 NEXTGEN ([facility] HollanderReferrer: 02:54:00 PM Medic al - [place] [facility] [employer] [facility]) Outpatient Attender: Shanon 10/30/2019 NEXTGEN ([facility] HollanderReferrer: 04:46:00 PM Medic al - [place] [employer] [facility]) Outpatient Attender: Shanon 10/30/2019 NEXTGEN ([facility] Zaki 11:30:00 AM Medical - [place] EDT [facility]) Outpatient Attender: Shanon 10/29/2019 NEXTGEN ([facility] HollanderAttender: 03:30:00 PM Medic al - [place] Horacio EDT [facility]) KanoffReferrer: Shanon Haines Outpatient Attender: Shanon 10/28/2019 NEXTGEN ([facility] HollanderReferrer: 10:47:00 AM Medic al - [place] [employer] [facility]) Outpatient Attender: Luz 10/28/2019 NEXTGEN ( [facility] YardeniReferrer: 12:00:00 AM Medical - [place] Luz Yardeni EDT Medical [facility]) Outpatient Attender: Juaquin 10/27/2019 NEXTGEN ([facility] Gamarnik 12:55:00 PM Medical - [place] [facility]) Outpatient Attender: Lefty 10/26/2019 NEXTGEN ([facility] Balkir 02:38:00 PM Medical - [place] [facility]) Outpatient Attender: Lefty 10/26/2019 NEXTGEN ([facility] BalkirReferrer: 12:00:00 AM Medical - [place] [facility] Outpatient Attender: Juaquin 10/25/2019 NEXTGEN ([facility] Gamarnik 03:42:00 PM Medical - [place] [facility]) Outpatient Attender: Shanon 10/24/2019 NEXTGEN ([facility] Zaki 02:01:00 PM Medical - [facility] ) Emergency Attender: Lucy ICU-EMERG 10/23/2019 VOMITING/SOB MHS - Eduardo MishraLuannder: 03:29:00 AM Hospi grazyna Franz EDT - MDAttender: Doctor 10/23/2019 Other 04:18:00 PM EDT VOMITING/SOB Patient discharged. Outpatient Attender: Shanon 10/17/2019 12:56:00 PM NEXTGEN ([facility] EDT Medical [facility]) Outpatient Attender: Shanon 10/16/2019 03:04:00 PM NEXTGEN ([facility] l [facility]) Outpatient Attender: Merrick 10/16/2019 11:30:00 AM NEXTGEN ([facility] Damariseferrer: EDT Medic al [facility]) Outpatient Attender: Shanon 10/15/2019 04:17:00 PM NEXTGEN ([facility] EDT Medical [facility]) Outpatient Attender: Shanon 10/10/2019 04:04:00 PM NEXTGEN ([facility] Medical [facility]) Outpatient Attender: Shanon 10/08/2019 09:18:00 AM NEXTGEN ([facility] ED Medical [facility]) Outpatient Attender: Juaquin 10/01/2019 01:39:00 PM NEXTGEN ([facility] ArminReferrer: EDT Medical - [facility]) Outpatient Attender: Aracely Joe 10/01/2019 01:17:00 PM NEXTGEN ([facility] EDT Medical [facility]) Outpatient Attender: Sally 09/30/2019 03:35:00 PM NEXTGEN ([facility] Johnolino EDT Medical [facility]) Outpatient Attender: Shanon 09/30/2019 08:55:00 AM [facility] Outpatient Attender: Sara 09/27/2019 12:00:00 AM NEXTGEN ([facility] AleahReferrer: Sara ANGULO Mt dical - [facility]) Outpatient Attender: Namrata Mcguire NP 09/26/2019 03:58:00 PM NEXTGEN ([facility] EDT Medical - [place] [facility]) Outpatient Attender: Erasmo 09/25/2019 12:00:00 AM NEXTGEN ([facility] HalbertReferrer: Erasmo EDT edical - [facility]) Outpatient Attender: Aracely 09/25/2019 12:00:00 AM NEXTGEN ([facility] GuptaReferrer: Parantap MEAGHANT M edical - [facility]) Outpatient Attender: Namrata Mcguire NP 09/24/2019 02:02:00 PM NEXTGEN ([facility] EDT Medical - [facility]) Outpatient Attender: Juaquin Funez 09/24/2019 02:55:00 AM NEXTGEN ([facility] EDT Medical - [facility]) Outpatient Attender: Salvador 09/24/2019 12:00:00 AM NEXTGEN ([facility] PatelReferrer: Salvador EDT Medic al - [facility]) Outpatient Attender: Shanon 09/19/2019 11:30:00 AM NEXTGEN ([facility] ZakiReferrer: EDT Medica l - [place] [facility]) Outpatient Attender: Maurice 09/16/2019 01:00:00 PM NEXTGEN ([facility] AliseReferrer: EDT Medica l - [facility]) Outpatient Attender: Juaquin 09/11/2019 10:15:00 AM NEXTGEN ([facility] ArminReferrer: Juaquin ANGULO Mt dical - [facility]) Outpatient Attender: Shanon 09/10/2019 11:01:00 AM NEXTGEN ([facility] Zaki EDT Medical - [facility]) Outpatient Attender: Juaquin 09/09/2019 02:37:00 PM NEXTGEN ([facility] GamarnikReferrer: EDT Medical - [place] [facility]) Outpatient Attender: Sally 09/08/2019 06:23:00 PM NEXTGEN ([facility] Johnolino EDT Medical - [facility]) Outpatient Attender: Erasmo Back 09/08/2019 01:07:00 PM NEXTGEN ([facility] EDT Medical - [facility]) Outpatient Attender: Juaquin 09/08/2019 01:05:00 PM NEXTGEN ([facility] GamarnikReferrer: EDT Medical - [place] [employer] [facility]) Outpatient Attender: Erasmo 09/08/2019 12:00:00 AM NEXTGEN ([facility] HalbertReferrer: Erasmo ANGULO M edical - [facility] Medical [facility]) Outpatient Attender: Juaquin Funez 09/07/2019 11:53:00 AM NEXTGEN ([facility] EDT Medical - [facility]) Outpatient Attender: Maurice 09/06/2019 12:44:00 PM NEXTGEN ([facility] Carrero EDT Medical - [facility]) Outpatient Attender: Juaquin 09/06/2019 12:00:00 AM NEXTGEN ([facility] ArminReferrer: Juaquin ANGULO Mt dical - [facility] Medical [facility]) Outpatient Attender: Maurice 09/04/2019 05:15:00 PM NEXTGEN ([facility] Carrero EDT Medical - [facility]) Outpatient Attender: Valente 09/04/2019 12:00:00 AM NEXTGEN ([facility] VerasReferrer: EDT Medical - [facility] Medical [facility]) Outpatient Attender: Juaquin 09/03/2019 12:53:00 PM NEXTGEN ([facility] GamsidReferrer: EDT Medical - [facility]) Outpatient Attender: Cole Fishman 09/03/2019 10:32:00 AM NEXTGEN ([facility] EDT Medical - [place] [facility]) Outpatient Attender: Cole 09/03/2019 12:00:00 AM NEXTGEN ([facility] KyeReferrer: Cole EDT M edical - [facility]) Outpatient Attender: Maurice 09/03/2019 12:00:00 AM NEXTGEN ([facility] RosenbergReferrer: Cole EDT Medical - [facility]) Outpatient Attender: Marianela 09/02/2019 07:30:00 PM NEXTGEN ([facility] Joe EDT Medical - [facility]) Outpatient Attender: Namrata Mcguire NP 08/29/2019 05:43:00 PM NEXTGEN ([facility] EDT Medical - [facility] ) Outpatient Attender: John 08/28/2019 12:00:00 AM NEXTGEN ([facility] CollierReferrer: John ANGULO M edical - [facility]) Outpatient Attender: Luz Donis 08/27/2019 04:28:00 PM NEXTGEN ([facility] EDT Medical - [facility]) Outpatient Attender: Luz 08/27/2019 12:00:00 AM NEXTGEN ([facility] YardeniReferrer: Luz EDT Mt dical - [facility]) Outpatient Attender: Juaquin Funez 08/26/2019 01:46:00 AM NEXTGEN ([facility] EDT Medical - [facility] ) Outpatient Attender: Juaquin Funez 08/15/2019 06:21:00 PM NEXTGEN ([facility] EDT Medical - [place] [facility]) Outpatient Attender: Shanon 08/14/2019 01:46:00 PM NEXTGEN ([facility] ZakiReferrer: EDT Medica l - [facility]) Outpatient Attender: Juaquin 08/14/2019 10:15:00 AM NEXTGEN ([facility] GamsidReferrer: Juaquin ANGULO Mt dical - [place] [facility]) Outpatient Attender: Juaquin 08/14/2019 12:00:00 AM NEXTGEN ([facility] GamdenissenikReferrer: Juaquin ANGULO Mt dical - [place] [facility]) Outpatient Attender: Juaquin Funez 08/13/2019 12:28:00 PM NEXTGEN ([facility] EDT Medical - [facility]) Outpatient Attender: Aracely Joe 08/11/2019 12:02:00 PM NEXTGEN ([facility] EDT Medical - [facility]) Outpatient Attender: Juaquin Funez 08/11/2019 02:10:00 AM NEXTGEN ([facility] EDT Medical - [facility]) Outpatient Attender: Aracely 08/11/2019 12:00:00 AM NEXTGEN ([facility] GuptaReferrer: Parantap EDT M [facility]ical - [facility] Outpatient Attender: Juaquin Funez 08/07/2019 12:23:00 PM NEXTGEN ([facility] EDT Medical - [place] [facility]) Outpatient Attender: Shanon 08/07/2019 12:14:00 PM NEXTGEN ([facility] HollanderReferrer: EDT Medica l - [facility] Outpatient Attender: Juaquin Funez 08/06/2019 01:20:00 PM NEXTGEN ([facility] EDT Medical - [place] [facility]) Outpatient Attender: Aracely Joe 08/05/2019 09:55:00 AM NEXTGEN ([facility] EDT Medical - [facility]) Outpatient Attender: Aracely 08/05/2019 12:00:00 AM NEXTGEN ([facility] GuptaReferrer: Parantap EDT M edical - [facility]) Outpatient Attender: Carlin Land 08/01/2019 03:52:00 PM NEXTGEN ([facility] EDT [facility] - [place] [facility]) Outpatient Attender: Juaquin Funez 07/30/2019 04:41:00 PM NEXTGEN ([facility] EDT Medical - [place] [facility]) Outpatient Attender: Carlin Land 07/28/2019 07:20:00 PM NEXTGEN ([facility] EDT Medical - [place] [facility]) Outpatient Attender: Carlin 07/28/2019 12:00:00 AM NEXTGEN ([facility] LeeReferrer: Reyes EDT Medical - [facility]) Outpatient Attender: Juaquin Funez 07/27/2019 11:51:00 AM NEXTGEN ([facility] EDT Medical - [facility] Medical [facility]) Outpatient Attender: Juaquin Funez 07/05/2019 11:59:00 AM NEXTGEN ([facility] EDT Medical - [facility]) Outpatient Attender: Juaquin Funez 07/03/2019 03:27:00 AM NEXTGEN ([facility] EDT Medical - [facility]) Inpatient Attender: Physician 06/22/2019 11:52:11 PM [facility] Shanon Fontana EDT - 06/25/2019 [facility] MDAttender: Physician 04:20:00 PM EDT Namrata Haile MDAttender: Myra Vera: ERAdmitter: Physician Shanon Fontana MDConsultant: Lai Chao MD Patient discharged. Outpatient Attender: Nunu 06/09/2019 12:00:00 AM NEXTGEN ([facility] CloseReferrer: Nunu MEDINA Mt dical [facility] Medical [facility]) Outpatient Telemarketing Manager: Lavon 06/06/2019 12:00:00 AM NEXTGEN (Richard Carrion MD [facility]) Outpatient Attender: Lai 06/05/2019 12:00:00 AM NEXTGEN ([facility] JeremieReferrer: [facility]) Outpatient Telemarketing Manager: Lavon 06/05/2019 12:00:00 AM NEXTGEN (Richard Carrion MD [facility]) Inpatient Attender: Physician 06/04/2019 07:45:[address] [facility] - Dequan Jerez EST - 06/10/2019 [facility] MDAttender: Physician Namrata 02:40:00 PM ADAM Haile MDAttender: Glen Adams: ERAdmitter: Physician Dequan Jerez MDConsultant: Lavon Carrion MDConsultant: Physician Sara Shields MDConsultant: Lai Chao MD Patient discharged. Emergency Attender: GAYATRI 06/04/2019 04:54:00 WEAKNESS, VOMITING Crum Lynne CHANTAL PM EST - 06/04/2019 ([place] Hospi grazyna 06:34:00 PM EST WEAKNESS, [place]OMITING [place] Patient discharged. Outpatient Attender: TYLER, [facility]/08/2019 [facility] 06[facility]00[facility]00 AM [facility] Outpatient Attender: TYLER 04/24/2019 [facility] TYLER, 10:37:00 AM [facility] Outpatient Attender: Mariano Eddy DPM 04/21/2019 FOOT WOUND Crum Lynne 09:57:00 AM [facility] Hospital FOOT WOUND Outpatient Attender: TYLER, 04/10/2019 11:22:00 [facility] Outpatient 03/31/2019 09:05:00 PM NE PAIGE ([facility]) Outpatient Attender: TYLER 03/26/2019 09:34:00 AM H33.01 2 [facility] SARA SCOTTReferrer: SARA SCOTT H33.012 Outpatient Attender: TYLER 03/26/2019 06:00:00 H33.012 [facility] Center[facility] MAC SC[facility] TYLER [facility] SARA H33.012 Outpatient Attender: Mehrdad BENDER 03/25/2019 11:24:00 AM [facility] Kavya MDAdmitter: EST - 04/21/2019 Hospital JHOANA CABRERA 12:46:00 PM EST Patient discharged. Attender: 03/25/2019 Saint Jenkinskeri [id number] 11:24:00 AM [facility] [id number] EST Outpatient Attender: SARA SCOTTAdmitter: 03/24/2019 [place] SARA SCOTTReferrer: TYLER 12:17:00 PM [facility] Emergency Attender: Alessandro Franz MDAttender: ICU- 03/11/2019 [place] SYS - New Doctor Other GEMMA 08:48:00 PM Carolyn Dunham [facility] - Hospital 03/12/2019 10:51:00 AM EST ANXIETY Patient discharged. Emergency Attender: Massimo ICU-EMERG 03/08/2019 ANXIETY-WAS HERE M HS - Eduardo Walker MDAttender: 08:18:00 PM EST YESTERDAY Freddy lashonda Doctor Other - 03/08/2019 Hospital 09:19:00 PM EST ANXIETY-WAS HERE YESTERDAY Patient discharged. Emergency Attender: Ravi ICU-EMERG 03/06/2019 HIGH ANXIETY MHS - N adán UlstevenaAtkellyder: Doctor 08:48:00 PM EST - Carolyn Other 03/07/2019 Hospital 08:00:00 AM EST HIGH ANXIETY Patient discharged. Inpatient Attender: JESSICA BENDER-2NW 02/28/2019 07:00:00 [facility] FacilityFABYSENT[facility] CENTERAdmitter: [facility] Ad[facility] cancelled. Disregard status an d admitted date. Attender: 02/28/2019 [facility] [id number] 07:00:00 PM [place] [address] Outpatient Attender: KRISTINA CURRIEttender: NAPOLEON 02/28/2019 [facility] ECHEVARRIAAdmitter: SIMONE 04:15:00 PM [facility] - [facility] 04/10/2019 11:55:00 AM EST Patient discharged. Attender: 02/28/2019 [facility] [id number] 04:15:[address] Emergency Attender: Wesley DysonAttender: 5T-EM 02/24/2019 PAIN MHS - Violeta Doctor Other ERG 01:23:00 AM EST LEFT LEG Kwasi - 02/24/2019 Hospital 02:20:00 AM EST PAIN LEFT LEG Patient discharged. Outpatient Attender: Shy Renteria 02/14/2019 10:02:00 AM LAURENT GONZALEZ F/U Georgina Guy MD EST Hospital HOSP F/U Outpatient Attender: Juaquin 02/12/2019 OLGA Funez 12:32:00 PM EST Medical - [facility]) Inpatient Attender: 01/29/2019 MICHELLE Olivas 06:41:00 PM EDT - VOMITING/[place] I Hospital MDAttender: 02/11/2019 Brianna Sullivan 10:13:00 AM EST MDAttender: Nancy Brunson MDAttender: Juan Torre MDAdmitter: Nancy Brunson MDConsultant: Say Valentin MDConsultant: Shirin Stock MDConsultant: Sean Pineda DESK CLERKS SUPERVISOR INTRACTABLE VOMITING/LIZA Patient discharged. Outpatient Attender: Juaquin 01/21/2019 05:26:00 N EXTGEN ([facility] Gamarnik PM EDT [facility]) Inpatient Attender: Joce 12/27/2018 08:06:00 RIGHT LE DIABETIC [facility] MDAttender: PM EDT - 01/20/2019 [facility] 11:32:00 AM EDT MDAttender: Anette Zhao MDAttender: MAU GUERINARAAdmitter: Anette Zhao MDConsultant: Say Valentin MDConsultant: Sean Pineda DESK CLERKS SUPERVISOR RIGHT LE DIABETIC [facility] Patient discharged. Inpatient Attender: Manas 12/20/2018 08:36:00 AM [facility]: EDT - 12/27/2018 [facility] MDAttender: 10:56:00 AM EDT Calvin Mercedes MDAttender: Monica Manuel MDAttender: Avery Pacheco DOAdmitter: Keysha Tompkins DOConsultant: Yonas Wright MDConsultant: Calvin Mercedes MD SEPSIS Patient discharged. Inpatient Attender: Aron 12/06/2018 INTRACTABLE NAUSEA [facility] MDAttender: 03:30:00 AM EDT - AND VOMIT ING; [facility] 12/18/2018 CHRONIC OSTEOMYEL MDAttender: Avery 02:55:00 PM EDT Junior DOAdmitter: Aron Fernandez MDConsultant: Sean Pineda NPConsultant: Jennifer Oakley NP INTRACTABLE NAUSEA AND VOMITING; CHRONIC OSTEOMYEL Patient discharged. Outpatient Attender: Mariano 08/16/2018 12:00:00 N EXTGEN ([facility] ShondaiReferrer: Mariano WATTS EDT Mt dical - [facility]) Outpatient Attender: Juaquin 08/11/2018 12:00:00 N EXTGEN ([facility] ArminReferrer: Abdirahman AM EDT M edical - [facility]) Functional Status Medications Medication Brand Start Product Dose Route Administrative Pharmacy [facility] Indications Reaction Description Data Name Date Form Instructions Instructions Source(s) Metoclopram METOCL take 1 tablet RP NEXTGEN nae 10 MG OPRAMI by oral route 3 ([facility] Oral Tablet DE HCL times every day Medical - 10 mg 10 mg 30 minutes [facility] [place] [facility] and at bedtime [facility]) This may be an active medication. No end date is available. Start date above may not reflect actual date the medication was s tarted. prucalopride 1 MG MOTEGRITY 12/22/2019 take 2 RP NEXTGEN Oral Tablet 12:00:00 AM EDT tablet by ([facility] [Motegrity] 1 mg oral route Medical - Mt 1 mg every day [facility]) This may be an active medication. No end date is available. rifaximin 550 MG XIFAXAN 12/11/2019 take 1 RP NEXTGEN Oral Tablet 12:00:00 AM EDT tablet by ([facility] [XIFAXAN] 550 mg oral route Medical - Mt 550 mg every 8 [facility] hours. Group [facility]) This may be an [...] route Medic al - [facility] [place] [facility]) This may be an active [...] Mt 25 mg 25 mg every day [facility]) This may be [...] - Mt [place] gram times every day [facility]) on an empty stomach This [...] Refill(s), [facility] - Chewable tablet, EDT [place] Tablet chewable [facility] simethicone Center 80 mg oral [...] meals, # 90 tab, 0 Refill(s), Pharmacy: [facility]/pharmacy #[id number], 1 tab Oral Before meals Health - Tablet Reglan EST [place] 10 mg oral Hospital tablet Center Lisinopril 20 lisinopril 20 06/10/2019 Tablet 20.0 Oral [place] MG Oral mg oral 09:09:00 AM mg 20 mg, = 1 tab, Oral, Daily, # 30 tab, 0 Refill(s), Pharmacy: [facility]/pharmacy #[id number], 1 tab Oral Daily Health - Tablet tablet EST [place] lisinopril 20 Hospit al mg oral Center tablet Hydralazine hydrALAZINE 06/10/2019 Tablet 25.0 Oral [place] Hydrochloride 25 mg oral 09:09:00 AM mg 25 mg, = 1 tab, Oral, q8hr, # 90 tab, 0 Refill(s), Pharmacy: [facility]/pharmacy #[id number], 1 tab Oral q8hr Health - 25 MG Oral tablet EST [facility] hydrALAZINE Center 25 mg oral tablet carvedilol carvedilol 06/10/2019 Tablet 6.25 Oral [place] 6.25 MG Oral 6.25 mg oral 09:09:00 AM mg 6.25 mg, = 1 tab, Oral, BID, # 60 tab, 0 Refill(s), Pharmacy: [facility]/pharmacy #[id number], 1 tab Oral BID Health - Tablet tablet [facility] 6.25 mg oral Center tablet metformin [id number] 06/05/2019 Tablet 500.0 Oral [place] 01:15:00 AM mg 500 mg, Oral, BID, 0 Refill(s) Health - [facility] Trazodone traZODone 04/16/2019 1.0 Oral ac NETSMART Hydrochloride hydrochloride 05:00:00 AM Tablet ti ([place] 50 MG Oral EST ve er [facility]) Clonazepam KlonoPIN - 04/16/2019 1 ORAL co Kl onoPIN - [facility] 0.5 MG Oral 0.5 MG ORAL 12:00:00 AM Tablet mp 0.5 MG ORAL [facility] Tablet Tablet EST [facility] [Klonopin] te d Clonazepam KlonoPIN - 04/03/2019 1 ORAL co Kl onoPIN - [facility] 0.5 MG Oral 0.5 MG ORAL 12:00:00 AM Tablet mp 0.5 MG ORAL [facility] Tablet Tablet EST [facility] [Klonopin] te d Fluoxetine 10 PROzac [...] Lorazepam 1 Ativan 1 03/08/2019 1 {tab(s)} [id number] aborted Ativan [facility] MG Oral mg oral [...] machinery. Lorazepam 1 Ativan 1 02/24/2019 1 [id number] aborted Ativan [facility] MG Oral mg oral 02:02:37 AM {tab(s)} Health Tablet tablet EST System [Ativan] Ativan 1 mg oral tablet Metformin Metformin 02/10/2019 TAB 500 mg ORAL completed [place] hydrochlorid Hcl 02:28:00 PM LET [place] e 500 MG EST Hospital Oral Tablet [Glucophage] Metformin Hcl Metocloprami Metoclopr 02/10/2019 TAB 10 mg ORAL completed [facility] de 10 MG amide Hcl 02:28:00 PM LET [place] Oral Tablet EST Hospital Metocloprami de Hcl Metformin Metformin 02/10/2019 TAB 500 mg ORAL active [place] hydrochlorid Hcl 02:28:00 PM LET [place] e 500 MG EST Hospital Oral Tablet [Glucophage] Metformin Hcl Metocloprami Metoclopr 02/10/2019 TAB 10 mg ORAL active [place] de 10 MG amide Hcl 02:28:00 PM LET [place] Oral Tablet EST Hospital Metocloprami de Hcl [...] 30 MG e Hcl 05:15:00 PM SUL [place] Delayed EST E, Hospital Release Oral EXT Capsule END [Cymbalta] ED Duloxetine REL Hcl EAS E Metoprolol Metoprolo 02/09/2019 TAB 25 mg ORAL completed White Tartrate 25 l 05:15:00 PM LET [place] MG Oral Tartrate EST Hospital Tablet duloxetine Duloxetin 02/09/2019 CAP 30 mg ORAL completed [facility] 30 MG e Hcl 05:15:00 PM SUL [place] Delayed EST E, Hospital Release Oral EXT Capsule END [Cymbalta] ED Duloxetine REL Hcl EAS E Amlodipine Amlodipin 02/09/2019 TAB 10 mg ORAL completed [place] 10 MG Oral e 05:15:[address] Tablet Besylate EST Hospital [[facility]] Amlodipine Besylate Lisinopril Lisinopri 02/09/2019 TAB 40 mg ORAL active [place] 20 MG Oral l 05:15:[address] Tablet EST Hospital Metoprolol Metoprolo 02/09/2019 TAB 25 mg ORAL active [place] Tartrate 25 l 05:15:00 PM LET [place] MG Oral Tartrate EST Hospital Tablet Hydralazine Hydralazi 02/09/2019 TAB 75 mg ORAL completed [facility] Hydrochlorid ne Hcl 05:15:00 PM LET [place] e 25 MG Oral EST Hospita l Tablet Hydralazine Hcl Hydralazine Hydralazi 02/09/2019 TAB 75 mg ORAL active [facility] Hydrochlorid ne Hcl 05:15:00 PM LET [place] e 25 MG Oral EST Hospita l Tablet Hydralazine Hcl pantoprazole Pantopraz 02/09/2019 TAB 40 mg ORAL active [facility] 40 MG ole 05:15:00 PM LET [place] Delayed Sodium EST Hospital Release Oral Tablet [Protonix] Pantoprazole Sodium pantoprazole Pantopraz 02/09/2019 TAB 40 mg ORAL completed [facility] 40 MG ole 05:15:00 PM LET [place] Delayed Sodium EST Hospital Release Oral Tablet [Protonix] Pantoprazole Sodium Amlodipine Amlodipin 02/09/2019 TAB 10 mg ORAL active [place] 10 MG Oral e 05:15:[address] Tablet Besylate EST Hospital [[facility]] Amlodipine Besylate Lisinopril Lisinopri 02/09/2019 TAB [...] Glargine 100 Glargine 12:30:00 PM PEC OUS [place] UNT/ML EDT [facility] Injectable ED Solution [Lantus] Lisinopril Lisinopri 01/16/2019 TAB 40 mg ORAL completed [place] 20 MG Oral l 12:30:[address] Tablet EDT Hospital duloxetine Duloxetin 01/16/2019 CAP 30 mg ORAL completed [place] 30 MG e Hcl 12:30:00 PM SUL [place] Delayed EDT E, Hospital Release Oral EXT Capsule END [Cymbalta] ED Duloxetine REL Hcl EAS E Metocloprami Metoclopr 01/16/2019 TAB 10 mg ORAL completed [place] de 10 MG amide Hcl 12:30:00 PM LET [place] Oral Tablet EDT Hospital Metocloprami de Hcl Nystatin 100 Nystatin 01/16/2019 POW 1 TOPICAL completed [facility] UNT/MG 12:30:00 PM PAZ {Applicat P lains Topical EDT or} Hospital Powder [[facility]] Insulin Insulin 01/16/2019 UNS 15 SUBCUTANE completed [place] Glargine 100 Glargine 12:30:00 PM PEC OUS [place] UNT/ML EDT [facility] Injectable ED Solution [Lantus] Hydromorphon Hydromorp 01/16/2019 TAB 4 mg ORAL completed White e kimberly Hcl 12:30:00 PM LET [place] Hydrochlorid EDT Hospita l e 4 MG Oral Tablet [Dilaudid] Hydromorphon e Hcl Insulin Insulin 01/16/2019 UNS 0 SUBCUTANE completed [place] Lispro 100 Human 12:30:00 PM PEC OUS P lains UNT/ML Lispro EDT [facility] Injectable ED Solution [Humalog] Insulin Human Lispro pantoprazole Pantopraz 01/16/2019 TAB 40 mg ORAL completed [facility] 40 MG ole 12:30:00 PM LET [place] Delayed Sodium EDT Hospital Release Oral Tablet [Protonix] Pantoprazole Sodium Metocloprami Metoclopr 01/16/2019 TAB 10 mg ORAL completed [place] de 10 MG amide Hcl 12:30:00 PM LET [place] Oral Tablet EDT Hospital Metocloprami de Hcl [...] [facility] Hydrochlorid ne Hcl 12:30:00 PM LET [place] e 25 MG Oral EDT Hospita l Tablet Hydralazine Hcl Lidocaine Lidocaine 01/16/2019 PAT 1 {Patch} TOPICAL completed [place] Hydrochlorid 12:30:00 PM CH [place] e 0.05 MG/MG EDT Hospita l Transdermal Patch [Lidoderm] Lidocaine Lidocaine 01/16/2019 PAT 1 {Patch} TOPICAL completed [place] Hydrochlorid 12:30:00 PM CH [place] e 0.05 MG/MG EDT Hospita l Transdermal Patch [Lidoderm] Insulin Insulin 01/16/2019 UNS 15 SUBCUTANE completed [place] Glargine 100 Glargine 12:30:00 PM PEC OUS [place] UNT/ML EDT [facility] Hospital Injectable ED Solution [Lantus] Hydralazine Hydralazi 01/16/2019 TAB 75 mg ORAL completed [place] Hydrochlorid ne Hcl 12:30:00 PM LET [place] e 25 MG Oral EDT Hospita l Tablet Hydralazine Hcl Lisinopril Lisinopri 01/16/2019 TAB 40 mg ORAL completed [place] 20 MG Oral l 12:30:[address] Tablet EDT [facility] Hydromorphon Hydromorp 01/16/2019 TAB 4 mg ORAL completed White e kimberly Hcl 12:30:00 PM LET [facility] [place] Hydrochlorid EDT Hospita l e 4 MG Oral Tablet [Dilaudid] Hydromorphon e Hcl Acetaminophe Acetamino 01/16/2019 TAB 975 mg ORAL completed White n 325 MG phen 12:30:00 PM LET Plai [place] Oral Tablet EDT [facility] Nystatin 01/16/2019 POW 1 TOPICAL completed [...] 30 MG e Hcl 12:30:00 PM SUL [place] Delayed EDT E, Hospital Release Oral EXT [...] PEC OUS P lains UNT/ML Lispro EDT [facility] Injectable ED Solution [Humalog] Insulin Human Lispro Insulin Insulin 01/16/2019 UNS 0 SUBCUTANE completed [place] Lispro 100 Human 12:30:00 PM PEC OUS P l[place] UNT/ML Lispro EDT [facility] Injectable ED Solution [Humalog] Insulin Human [...] ains Capsule EDT E Hospital [Lyrica] Pregabalin Dextromethor Guaifenes 01/16/2019 LIQ 5 mL ORAL completed White sexton in/Dextro 12:30:00 PM UID Kim ins Hydrobromide methorpha EDT Ho spital 2 MG/ML / n Guaifenesin 20 MG/ML Oral Solution Guaifenesin/ Dextromethor sexton pantoprazole Pantopraz 01/16/2019 TAB 40 mg ORAL completed White 40 MG ole 12:30:00 PM LET [place] Delayed Sodium EDT Hospital Release Oral Tablet [Protonix] Pantoprazole Sodium Dextromethor Guaifenes 01/16/2019 LIQ 5 mL ORAL completed White se[place] in/Dextro 12:30:00 PM UID Kim ins Hydrobromide methorpha EDT Ho spital 2 MG/ML / n Guaifenesin 20 MG/ML Oral Solution Guaifenesin/ Dextromethor sexton pantoprazole Pantopraz 01/16/2019 TAB 40 mg ORAL completed [facility] 40 MG ole 12:30:00 PM LET [place] Delayed Sodium EDT Hospital Release Oral Tablet [...] 10 MG amide Hcl 12:30:00 PM LET [place] Oral Tablet EDT Hospital Metocloprami de Hcl duloxetine Duloxetin 01/16/2019 CAP 30 mg ORAL completed [place] 30 MG e Hcl 12:30:00 PM SUL [place] Delayed EDT E, Hospital Release Oral EXT Capsule END [Cymbalta] ED Duloxetine REL Hcl EAS E Lidocaine Lidocaine 01/16/2019 PAT 1 {Patch} TOPICAL completed [place] Hydrochlorid 12:30:00 PM CH [place] e 0.05 MG/MG EDT Hospita l Transdermal Patch [Lidoderm] Hydralazine Hydralazi 01/16/2019 TAB 75 mg ORAL completed [place] Hydrochlorid ne Hcl 12:30:00 PM LET [place] e 25 MG Oral EDT Hospita l Tablet Hydralazine Hcl pantoprazole Pantopraz 12/18/2018 TAB 40 mg ORAL completed [facility] 40 MG ole 09:27:00 AM LET [place] Delayed Sodium EDT Hospital Release Oral Tablet [Protonix] Pantoprazole Sodium pantoprazole Pantopraz 12/18/2018 TAB 40 mg ORAL completed [place] 40 MG ole 09:27:00 AM LET [place] Delayed Sodium EDT Hospital Release Oral Tablet [Protonix] Pantoprazole Sodium pantoprazole Pantopraz 12/18/2018 TAB 40 mg ORAL completed [facility] 40 MG ole 09:27:00 AM LET [place] Delayed Sodium EDT Hospital Release Oral Tablet [Protonix] Pantoprazole Sodium pantoprazole Pantopraz 12/18/2018 TAB 40 mg ORAL completed [place] 40 MG ole 09:27:00 AM LET [place] Delayed Sodium EDT Hospital Release Oral Tablet [Protonix] Pantoprazole Sodium pantoprazole Pantopraz 12/18/2018 TAB 40 mg ORAL completed [place] 40 MG ole 09:27:00 AM LET [place] Delayed Sodium EDT Hospital Release Oral Tablet [...] 10 MG amide Hcl 09:18:00 AM LET [place] Oral Tablet EDT Hospital [Reglan] Metocloprami de Hcl Erythromycin Erythromy 12/18/2018 CAP 250 mg ORAL completed [place] 250 MG jesús Base 09:18:[address] Delayed EDT E, Hospital Release Oral DEL Capsule AYE Erythromycin D Base REL EAS E Amlodipine Amlodipin 12/18/2018 TAB 10 mg ORAL completed [place] 10 MG Oral e 09:18:[address] Tablet Besylate EDT [facility] [[facility]] Amlodipine Besylate Metocloprami Metoclopr 12/18/2018 TAB 10 mg ORAL completed [place] de 10 MG amide Hcl 09:18:00 AM LET [place] Oral Tablet EDT Hospital [[facility]] Metocloprami de Hcl Erythromycin Erythromy 12/18/2018 CAP 250 mg ORAL completed [place] 250 MG jesús Base 09:18:[address] Delayed EDT E, Hospital Release Oral DEL Capsule AYE Erythromycin D Base REL EAS E Amylases Amylase/L 12/18/2018 CAP 4 ORAL completed [place] [address] UNT / ipase/Pro 09:18:00 AM SUL {Capsule} [place]pt[place] [address] UNT DEL / Lipase AYE 6000 UNT D Delayed REL Release Oral EAS Capsule E [Creon] Amylase/Lipa se/Protease Erythromycin Erythromy 12/18/2018 CAP 250 mg ORAL completed [place] 250 MG jesús Base 09:18:[address] Delayed EDT E, Hospital Release Oral DEL Capsule AYE Erythromycin D Base REL EAS E Amylases Amylase/L 12/18/2018 CAP 4 ORAL completed [place] [address] UNT / ipase/Pro 09:18:00 AM SUL {Capsule} [place] Endopeptidas te[place] [address] UNT DEL / Lipase AYE 6000 UNT D Delayed REL Release Oral EAS Capsule E [Creon] Amylase/Lipa se/Protease Amylases Amylase/L 12/18/2018 CAP 4 ORAL completed [place] [address] UNT / ipase/Pro 09:18:00 AM SUL {Capsule} [place]opept[place] [address] UNT DEL / Lipase AYE 6000 UNT D Delayed REL Release Oral EAS Capsule E [Creon] Amylase/Lipa se/Protease Amlodipine Amlodipin 12/18/2018 TAB 10 mg ORAL completed [place] 10 MG Oral e 09:18:[address] Tablet Besylate EDT Hospital [[facility]] Amlodipine Besylate Metocloprami Metoclopr 12/18/2018 TAB 10 mg ORAL completed [place] de 10 MG amide Hcl 09:18:00 AM LET [place] Oral Tablet EDT Hospital [Reglan] Metocloprami de Hcl Metocloprami Metoclopr 12/18/2018 TAB 10 mg ORAL completed [place] de 10 MG amide Hcl 09:18:00 AM LET [place] Oral Tablet EDT Hospital [Reglan] Metocloprami de Hcl Metocloprami Metoclopr 12/18/2018 TAB 10 mg ORAL completed [place] de 10 MG amide Hcl 09:18:00 AM LET [place] Oral Tablet EDT Hospital [Reglan] Metocloprami de Hcl Erythromycin Erythromy 12/18/2018 CAP 250 mg ORAL completed [place] 250 MG jesús Base 09:18:[address] Delayed EDT E, Hospital Release Oral DEL Capsule AYE Erythromycin D Base REL EAS E Amylases Amylase/L 12/18/2018 CAP 4 ORAL completed [place] [address] UNT / ipase/Pro 09:18:00 AM SUL {Capsule} [place]opept[place] [address] UNT DEL / Lipase AYE 6000 UNT D Delayed REL Release Oral EAS Capsule E [Creon] Amylase/Lipa se/Protease Amylases Amylase/L 12/18/2018 CAP 4 ORAL completed [place] [address] UNT / ipase/Pro 09:18:00 AM SUL {Capsule} [place]opept[place] [address] UNT DEL / Lipase AYE 6000 UNT D Delayed REL Release Oral EAS Capsule E [Creon] Amylase/Lipa se/Protease Amlodipine Amlodipin 12/18/2018 TAB 10 mg ORAL completed [place] 10 MG Oral e 09:18:[address] Tablet Besylate EDT Hospital [[facility]] Amlodipine Besylate Amlodipine Amlodipin 12/18/2018 TAB 10 mg ORAL completed [place] 10 MG Oral e 09:18:[address] Tablet Besylate EDT Hospital [[facility]] Amlodipine Besylate doxycycline Doxycycli 11/25/2018 CAP [...] AYE Doxycycline D Hyclate REL EAS E Erythromycin Erythromy 11/25/2018 DAVID 200 mg ORAL completed [place] Ethylsuccina jesús 02:47:00 PM PEN [place] te 40 MG/ML Ethylsucc EDT [facility] Oral inate N Suspension [E.E.S.] Erythromycin Erythromy 11/25/2018 DAVID 200 mg ORAL completed [place] Ethylsuccina jesús 02:47:00 PM PEN [place] te 40 MG/ML Ethylsucc EDT [facility] Oral inate N Suspension [E.E.S.] Erythromycin Erythromy 11/25/2018 DAVID 200 mg ORAL completed [place] Ethylsuccina jesús 02:47:00 PM PEN [place] te 40 MG/ML Ethylsucc EDT [facility] Oral inate N Suspension [E.E.S.] Erythromycin Erythromy 11/25/2018 DAVID 200 mg ORAL completed [place] Ethylsuccina jesús 02:47:00 PM PEN [place] te 40 MG/ML Ethylsucc EDT [facility] Oral inate N Suspension [E.E.S.] gabapentin Gabapenti 11/25/2018 CAP 300 mg ORAL completed [place] 300 MG Oral n 02:47:00 PM SUL [place] Capsule EDT E Hospital [Neurontin] Gabapentin Glipizide 5 Glipizide 11/25/2018 TAB 5 mg ORAL completed White MG Oral 02:47:00 PM LET [place] Tablet [facility] [Glucotrol] Erythromycin Erythromy 11/25/2018 DAVID 200 mg ORAL completed [place] Ethylsuccina jesús 02:47:00 PM PEN [place] te 40 MG/ML Ethylsucc EDT [facility] Oral inate N Suspension [E.E.S.] Glipizide 5 Glipizide 11/25/2018 TAB 5 mg ORAL completed [place] MG Oral 02:47:00 PM LET [place] Tablet [facility] [Glucotrol] gabapentin Gabapenti 11/25/2018 CAP 300 [...] completed [place] Ethylsuccina jesús 02:47:00 PM PEN [place] te 40 MG/ML Ethylsucc EDT [facility] Oral inate N Suspension [E.E.S.] Glipizide 5 Glipizide 11/25/2018 TAB 5 mg ORAL completed [place] MG Oral 02:47:00 PM LET [place] Tablet [facility] [[facility]] Lisinopril Lisinopri 11/10/2018 TAB 20 mg ORAL completed [place] 20 MG Oral l 06:02:00 PM LET [facility] Lisinopril Lisinopri 11/10/2018 TAB 20 mg ORAL completed [place] 20 MG Oral l 06:02:00 PM LET [facility] Lisinopril Lisinopri 11/10/2018 TAB 20 mg ORAL completed [place] 20 MG Oral l 06:02:00 PM LET [facility] Tablet [facility] Amlodipine 5 Amlodipin 11/10/2018 TAB 5 mg ORAL completed [place] MG Oral e 06:02:00 PM LET [place] Tablet Besylate [facility] [[facility]] Amlodipine Besylate Amlodipine 5 Amlodipin 11/10/2018 TAB 5 mg ORAL completed [place] MG Oral e 06:02:00 PM LET [place] Tablet Besylate [facility] [[facility]] Amlodipine Besylate Amlodipine 5 Amlodipin 11/10/2018 TAB 5 mg ORAL completed [place] MG Oral e 06:02:00 PM [place] [facility] Amlodipine Besylate Amlodipine 5 Amlodipin 11/10/2018 TAB 5 mg ORAL completed [place] MG Oral e 06:02:00 PM LET [place] Tablet Besylate [facility] [[facility]] Amlodipine Besylate Amlodipine 5 Amlodipin 11/10/2018 TAB 5 mg ORAL completed [place] MG Oral e 06:02:00 PM LET [place] Tablet Besylate [facility] [[facility]] Amlodipine Besylate ertapenem ERTAPENEM 07/13/2018 in RP NEXTGEN 1000 MG 12:00:00 AM fu ([facility] Injection 1 EDT se Medical - gram 1 gram (1 Mt sco G) Medical b Group PC) y in [...] - Mt Tablet [facility],[address] [facility]) This [...] Policy type / Policy ID Covered Covered libertarian's Policy Plan Coverage type libertarian ID relationship to Ma Information ma DAVID MEDICARE [id number] SP [id number] SANTANA [id number] SP [id number] MEDICARE ADV PLAN MEDICAID [id number] SP [id number] MC[employer] [id number] [facility] Medicare [id number] 1 [id number] Part B Par Providers FIDL [place] [id number] 1 [id number] Care [place] MEDICAID [id number] PT [id number] MEDICARE [id number] PT [id number] MEDICAID [id number] SP [id number] MEDICARE [id number] SP [id number] [place] Commercial [id number] Medicare Medicaid Medicaid [id number] Medicare Part Medicare [id number] 1 [id number] B Outpatient Medicare Part Medicare [id number] 1 [id number] A BETTER [id number] PT [id number] HEALTH/FIDELI S BETTER [id number] PT [id number] HEALTH/FIDELI S Medicare Part Medicare [id number] 1 [id number] B Outpatient Medicaid Medicaid [id number] Medicare Part Medicare [id number] 1 [id number] A FIDL [place] [id number] 1 [id number] Care [place] SELF PAY 000 Self 000 MEDICAID OP [id number] Self [id number] SELF PAY 0000 Self 0000 MEDICAID OP [id number] Self [id number] MEDICARE [id number] Self [id number] [id number] [facility] Medicaid [id number] 1 [id number] BETTER [id number] PT [id number] [place] [address]/[facility] [id number] PT [id number] HMO Problems, Conditions, and Diagnoses Code Display Name Description Problem Type Effective Data Sour ce(s) Dates K31.84 Gastroparesis Gastroparesis Diagnosis 01/08/2020 NEXTGEN 03:20:00 PM ([facility] EDT Medical - [facility]) K58.0 Irritable bowel Irritable bowel Diagnosis 01/08/2020 NEXT GEN syndrome with syndrome with 03:20:00 PM ([facility] diarrhea diarrhea EDT [facility]) R79.89 Other specified Low testosterone in Diagnosis 12/22/2019 NEXTGEN abnormal findings of male 04:48:00 PM (Ca remount blood chemistry EDT Medical [facility]) E11.43 Type 2 diabetes DM gastroparesis Diagnosis 12/22/2019 NEX TGEN mellitus with 04:48:00 PM ([facility] diabetic autonomic EDT Medica l - Mt (poly)neuropathy [facility] d[facility]) K58.1 Irritable bowel Irritable bowel Diagnosis 12/11/2019 NEXT GEN syndrome with syndrome with 03:16:00 PM ([facility] constipation constipation EDT Medical [facility]) E11.9 Type 2 diabetes Type 2 diabetes Diagnosis 12/11/2019 NEXT GEN mellitus without mellitus without 03:16:00 PM ( [facility] complications complications EDT Medical [facility]) E11.621 Type 2 diabetes Type 2 diabetes Diagnosis 11/28/2019 NEXT GEN mellitus with foot mellitus with foot 01:45:00 PM ([facility] ulcer ulcer, with EDT Medical [facility] E11.40 Type 2 diabetes Type 2 diabetes Diagnosis 11/28/2019 NEXT GEN mellitus with mellitus with 01:45:00 PM ([facility] diabetic neuropathy, diabetic EDT [facility] beata - [place] unspecified neuropathy, unsp [place] [facility]) R53.1 Weakness Weakness Diagnosis 10/23/2019 [facility] - New 03:29:00 AM [facility] VOMITING/SOB VOMITING/SOB Diagnosis 10/23/2019 S - New 03:29:00 AM [facility] E11.9 Type 2 diabetes Type 2 diabetes Diagnosis 10/23/2019 S - New mellitus without mellitus without 03:29:00 AM [facility] [place] complications complication EDT Hospital R52 Pain, unspecified Pain Diagnosis 10/23/2019 MHS - N ew 03:29:00 AM [facility] 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 Malingerer Diagnosis 10/23/2019 S - New [conscious 03:29:00 AM [place] simulation] EDT [facility] Z03.818 Encounter for Encounter for Diagnosis 10/23/2019 MHS - Ne w observation for observation for 03:29:00 AM Freddy helle suspected exposure suspected exposure EDT Hospital to other biological to other biological agents ruled out agent, ruled out F41.9 Anxiety disorder, Anxiety disorder Diagnosis 10/23/2019 M HS - New unspecified 03:29:00 AM [facility] Z09 Encounter for Hospital discharge Diagnosis 10/16/2019 NEX TGEN follow-up follow-up 03:04:00 PM ([facility] examination after T [facility] completed treatment [facility] for conditions other [facility]) than malignant neoplasm R10.84 Generalized Generalized Diagnosis 10/16/2019 NEXTGEN abdominal pain abdominal pain 03:04:00 PM ([facility]) F41.1 Generalized anxiety RACHELL (generalized Diagnosis 10/16/2019 NEXTGEN disorder anxiety disorder) 03:04:00 PM ([facility]) D64.9 Anemia, unspecified Anemia, unspecified Diagnosis 020 NEXTGEN type 03:04:00 PM ([facility]) E11.21 Type 2 diabetes Type 2 diabetes Diagnosis 10/16/2019 NEXT GEN mellitus with mellitus with 03:04:00 PM ([facility] diabetic nephropathy diabetic [facility] nephropathy [facility]) L89.891 Pressure ulcer of Pressure ulcer of Diagnosis 10/16/2019 NEXTGEN other site, stage 1 other site, stage 1 11:30:0 0 AM ([facility]) K92.2 Gastrointestinal UGIB (upper Diagnosis 09/11/2019 NEXTGEN hemorrhage, gastrointestinal 10:15:00 AM (Care ount unspecified bleed) [facility]) Z00.00 Encounter for Encntr for general Diagnosis 08/14/2019 NEX TGEN general adult adult medical exam 12:00:00 AM ([facility] examination w/o abnormal EDT Med ical - [place] without abnormal findings [facility] dical findings Group [facility]) I10 Essential (primary) Essential (primary) Diagnosis 020 NEXTGEN hypertension hypertension 12:00:00 AM [facility] E78.5 Hyperlipidemia, Hyperlipidemia, Diagnosis 08/14/2019 NEXT GEN unspecified unspecified 12:00:00 AM ([facility]) E11.51 Type 2 diabetes Type 2 diabetes w Diagnosis 08/14/2019 NE XTGEN mellitus with diabetic peripheral 12:00:00 AM ( [facility] diabetic peripheral angiopath w/o EDT Mt dical - Wy angiopathy without gangrene [facility]) D63.1 Anemia in chronic Anemia in chronic Diagnosis 08/14/2019 NEXTGEN kidney disease kidney disease 12:00:00 AM ([facility]) R11.10 Vomiting, Vomiting, Diagnosis 06/24/2019 [facility] unspecified unspecified 11:08:00 AM - [facility] E11.43 Type 2 diabetes Type 2 diabetes Diagnosis 06/24/2019 [facility] mellitus with mellitus with 11:08:00 AM - Dylan pena diabetic autonomic diabetic autonomic [facility] (poly)neuropathy (poly)neuropathy Ce nter R11.2 Nausea with Nausea with Diagnosis 06/06/2019 [facility] vomiting, vomiting, 12:16:00 PM - [place] unspecified unspecified [facility] Center M86.60 Other chronic M86.60 Diagnosis [...] Personal history of PERSONAL HISTORY OF Diagnosis [address] [place] [address] other infectious and OTHER INFECTIOUS 09:34:00 AM [facility] parasitic diseases AND PARASITIC [employer] [facility] e [employer] Z89.511 Acquired absence of ACQUIRED ABSENCE OF Diagnosis [address] [place] [address] right leg below knee RIGHT LEG BELOW 09:34:00 A M [facility] KNEE [employer] K31.84 Gastroparesis GASTROPARESIS Diagnosis 03/26/2019 [facility] 09:34:00 AM [facility] [employer] 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42 Traction detachment TRACTION DETACHMENT Diagnosis [place] of retina, left eye OF RETINA, LEFT EYE 09:34:0 0 AM [facility] H33.012 Retinal detachment RETINAL DETACHMENT Diagnosis 9 [place] with single break, WITH SINGLE BREAK, 12:17:00 PM [facility] left eye LEFT EYE [facility] F41.1 Generalized anxiety Generalized anxiety Diagnosis [facility] - New disorder disorder 08:48:[address] [facility] ANXIETY ANXIETY Diagnosis 03/11/2019 [facility] - New 08:48:[address] [facility] Z89.431 Acquired absence of Acquired absence of Diagnosis [facility] - New right foot right foot 08:48:[address] [facility] F43.9 Reaction to severe Reaction to severe Diagnosis 9 [facility] - New stress, unspecified stress 08:18:00 PM [facility] F32.89 Other specified Other depressive Diagnosis 03/08/2019 [facility] - New depressive episodes episodes 08:18:00 PM [facility] ANXIETY-WAS HERE ANXIETY-WAS HERE Diagnosis 03/08/2019 MH S - New YESTERDAY YESTERDAY 08:18:[address] [facility] F41.8 Other specified Other specified Diagnosis 03/06/2019 [facility] - New anxiety disorders anxiety disorders 08:48:[address] [facility] HIGH ANXIETY HIGH ANXIETY Diagnosis 03/06/2019 [facility] - New 08:48:[address] [facility] Z89.511 Acquired absence of Acquired absence of Diagnosis [facility] - New right leg below knee right lower 08:48:00 PM [facility] knee PAIN LEFT LEG PAIN LEFT LEG Diagnosis 02/24/2019 [facility] - Mo unt 01:23:00 AM [facility] M79.604 Pain in right leg Pain of right lower Diagnosis 9 [facility] - [facility] extremity 01:23:00 AM [facility] F41.9 Anxiety disorder, Anxiety disorder Diagnosis 02/24/2019 [facility] [place] unspecified 01:23:00 AM [facility] D64.89 Other specified D64.89 Diagnosis 02/14/2019 [place] anemias 10:02:00 AM Hospital EST Z51.89 Encounter for other Z51.89 Diagnosis 02/14/2019 [place] specified aftercare 10:02:00 AM Hosp ital EST F41.9 Anxiety disorder, F41.9 Diagnosis 01/29/2019 [place] unspecified 11:08:00 PM Hospital EDT F32.9 Major depressive F32.9 Diagnosis 01/29/[address] [place] disorder, single 11:08:00 PM Hospita l episode, unspecified EDT G89.29 Other chronic pain G89.29 Diagnosis 01/29/2019 [place] 11:08:00 PM Hospital EDT K21.0 Gastro-esophageal K21.0 Diagnosis 01/29/2019 [place] reflux disease with 11:08:00 PM Hosp ital esophagitis EDT K59.00 Constipation, K59.00 Diagnosis 01/29/2019 [place] unspecified 11:08:00 PM Hospital EDT E11.610 Type 2 diabetes E11.610 Diagnosis 01/29/2019 [place] mellitus with 11:08:00 PM Hospital diabetic neuropathic EDT arthropathy Z89.422 Acquired absence of Z89.422 Diagnosis 01/29/2019 [place] other left toe(s) 11:08:00 PM Hospit al EDT D63.8 Anemia in other D63.8 Diagnosis 01/29/2019 [place] chronic diseases 11:08:00 PM Hospita l classified elsewhere EDT 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 Z76.5 Diagnosis 01/29/2019 [place] [conscious 11:08:00 PM Hospital simulation] EDT R11.2 Nausea with R11.2 Diagnosis 01/29/2019 [place] vomiting, 11:08:00 PM Hospital unspecified EDT E86.0 Dehydration E86.0 Diagnosis 01/29/2019 [place] 11:08:00 PM Hospital EDT Z86.14 Personal history of Z86.14 Diagnosis 01/29/2019 [place] Methicillin 11:08:00 PM Hospital resistant EDT Staphylococcus aureus infection Z91.14 Patient's other Z91.14 Diagnosis 01/29/2019 [place] noncompliance with 11:08:00 PM [facility]pi [facility] medication regimen EDT Z89.511 Acquired absence of Z89.511 Diagnosis 01/29/2019 [place] right leg below knee 11:08:00 PM Hos pital EDT I10 Essential (primary) I10 Diagnosis 01/29/2019 [place] hypertension 11:08:00 PM Hospital EDT K31.84 Gastroparesis K31.84 Diagnosis 01/29/2019 [place] 11:08:00 PM Hospital EDT E87.1 Hypo-osmolality and E87.1 Diagnosis 01/29/2019 [place] hyponatremia 11:08:00 PM Hospital EDT N17.9 Acute kidney N17.9 Diagnosis 01/29/2019 [place] failure, unspecified 11:08:00 PM Hos pital EDT [...] 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 10:53:00 PM Hospital EDT K76.0 Fatty (change of) K76.0 Diagnosis 12/27/2018 [place] liver, not elsewhere 10:53:00 PM Hos pital classified EDT I16.0 Hypertensive urgency I16.0 Diagnosis 12/27/2018 [place] 10:53:00 PM Hospital EDT A41.9 Sepsis, unspecified A41.9 Diagnosis 12/27/2018 [place] organism 10:53:00 PM Hospital EDT Z91.018 Allergy to other Z91.018 Diagnosis 12/27/[address] [place] foods 10:53:00 PM Hospital EDT Z79.84 senior care (current) Z79.84 Diagnosis 12/27/2018 [place] use of oral 10:53:00 PM Hospital hypoglycemic drugs EDT 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 Z79.899 Diagnosis 12/27/2018 [place] (current) drug 10:53:00 PM Hospital therapy EDT K31.7 Polyp of stomach and K31.7 Diagnosis 12/27/2018 [place] duodenum 10:53:00 PM Hospital EDT Z87.891 Personal history of Z87.891 Diagnosis 12/20/2018 [place] nicotine dependence 11:00:00 AM Hosp ital EDT Z79.4 senior care (current) Z79.4 Diagnosis 12/20/2018 [place] use of insulin 11:00:00 AM Hospital EDT 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 12/20/2018 [place] ulcer of other part 11:00:00 AM Hosp ital of left foot with EDT unspecified severity L97.519 Non-pressure chronic L97.519 Diagnosis 12/20/2018 [place] ulcer of other part 11:00:00 AM Hosp ital of right foot with EDT unspecified severity L02.415 Cutaneous abscess of L02.415 Diagnosis 12/20/2018 [place] right lower limb 11:00:00 AM Hospita l EDT M86.671 Other chronic M86.671 Diagnosis 12/20/2018 [place] osteomyelitis, right 11:00:00 AM Hos pital ankle and foot EDT M86.672 Other chronic M86.672 Diagnosis 12/20/2018 [place] osteomyelitis, left 11:00:00 AM Hosp ital ankle and foot EDT L03.115 Cellulitis of right L03.115 Diagnosis 12/20/2018 [place] lower limb 11:00:00 AM Hospital EDT A41.02 Sepsis due to A41.02 Diagnosis 12/20/2018 [place] Methicillin 11:00:00 AM Hospital resistant EDT Staphylococcus aureus Z91.19 Patient's Z91.19 Diagnosis 12/06/2018 [place] noncompliance with 09:02:00 AM [facility]pi [facility] other medical EDT treatment and regimen R07.9 Chest pain, R07.9 Diagnosis 12/06/2018 [place] unspecified 09:02:00 AM Hospital EDT D50.9 Iron deficiency D50.9 Diagnosis 12/06/2018 [place] anemia, unspecified 09:02:00 AM Hosp ital EDT 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) 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 Diagnosis 12/06/2018 [place] use of antibiotics 09:02:00 AM [facility]pi [facility] EDT E11.42 Type 2 diabetes E11.42 Diagnosis 12/06/2018 [place] mellitus with 09:02:00 AM [facility] diabetic EDT polyneuropathy Surgeries/Procedures Procedure Description Date Indications Data Source(s) OFFICE/OUTPATIENT VISIT EST OFFICE/OUTPATIENT 01/08/2020 NEXT[facility] VISIT EST 12:00:00 AM ([facility]) RMVL DEVITAL TIS 20 CM/< RMVL DEVITAL TIS 20 11/28/2019 NEXTGEN CM/< 12:00:00 AM ([facility]) Injection, ondansetron Ondansetron hcl 10/29/2019 NE XTGEN hydrochloride, per 1 mg injection 12:00:00 AM ([facility]) THER/PROPH/DIAG IV INF INIT THER/PROPH/DIAG IV 10/29/2019 NEXTGEN INF INIT 12:00:00 AM ([facility]) INPATIENT CONSULTATION INPATIENT 10/28/2019 NEXTG EN CONSULTATION 12:00:00 AM ([facility]) INPATIENT CONSULTATION INPATIENT 10/26/2019 NEXTG EN CONSULTATION 12:00:00 AM ([facility]) NM Lung Scan Perfusion NM 10/23/2019 [facility]fusion 11:18:00 [facility] 11:18:00 AM EDT Standard chest X-ray 10/23/2019 [facility] (procedure) 05:09:00 AM [facility] EDT - 10/23/2019 05:09:00 AM EDT Electrocardiographic 10/23/2019 [facility] procedure (procedure) 04:42:00 AM [facility] EDT - 10/23/2019 06:17:00 AM EDT [facility] EDT - 10/23/2019 05:36:11 AM EDT Culture Bacteria Blood 10/23/2019 [facility] janny 04:36:58 AM [facility] EDT - 10/23/2019 05:36:10 AM EDT Sedimentation Rate, [facility] 04:36:58 AM [facility] EDT - 10/23/2019 05:32:00 AM EDT Lipase, Serum 10/23/2019 [facility] 04:36:58 [facility] EDT - 10/23/2019 05:32:00 AM EDT Alcohol Ethyl, Blood 10/23/2019 [facility] 04:36:58 AM [facility] EDT - 10/23/2019 05:32:00 AM EDT Comprehensive Metabolic 10/23/2019 [facility] Panel 04:36:58 AM [facility] EDT - 10/23/2019 05:32:00 AM EDT CBC w/Auto Differential- 10/23/2019 [facility] NR/SECC Only 04:36:58 AM [facility] EDT - 10/23/2019 05:32:00 AM EDT TRANS CARE MGMT 14 DAY TRANS CARE MGMT 14 10/16/2019 NEXT[facility] DISCH DAY DISCH 12:00:00 AM ([facility] EDT Medical - [facility]) CHRON CARE MGMT SRVC 20 MIN CHRON CARE MGMT 10/16/2019 NEXTGEN SRVC 20 MIN 12:00:00 AM ([facility] EDT Medical - [facility]) SUBSEQUENT HOSPITAL CARE SUBSEQUENT HOSPITAL 09/27/2019 NEXTGEN CARE 12:00:00 AM ([facility] EDT Medical - [facility]) INITIAL HOSPITAL CARE INITIAL HOSPITAL 09/24/2019 NE XTGEN CARE 12:00:00 AM ([facility] EDT Medical - [facility]) TRANS CARE MGMT 7 DAY DISCH TRANS CARE MGMT 7 09/11/2019 NEXTGEN DAY DISCH 12:00:00 AM ([facility] EDT Medical - [facility]) SUBSEQUENT HOSPITAL CARE SUBSEQUENT HOSPITAL 09/04/2019 NEXTGEN CARE 12:00:00 AM ([facility] EDT Medical - [facility]) EGD DIAGNOSTIC BRUSH WASH EGD DIAGNOSTIC 09/04/2019 NEXTGEN BRUSH WASH 12:00:00 AM ([facility] EDT Medical - [facility]) HOSPITAL DISCHARGE DAY HOSPITAL DISCHARGE 08/29/2019 NEXTGEN DAY 12:00:00 AM ([facility] EDT Medical - [facility]) SUBSEQUENT HOSPITAL CARE SUBSEQUENT HOSPITAL 08/28/2019 NEXTGEN CARE 12:00:00 AM ([facility] EDT Medical - [facility]) COMPLETE CBC W/AUTO DIFF COMPLETE CBC W/AUTO 08/14/2019 NEXTGEN WBC DIFF WBC 12:00:00 AM ([facility]) ASSAY THYROID STIM HORMONE ASSAY THYROID STIM 08/14/2019 NEXTGEN HORMONE 12:00:00 AM ([facility]) COMPREHEN METABOLIC PANEL COMPREHEN METABOLIC 08/14/2019 NEXTGEN PANEL 12:00:00 AM ([facility]) ASSAY OF FREE THYROXINE ASSAY OF FREE 08/14/2019 NEX TGEN THYROXINE 12:00:00 AM ([facility]) ASSAY OF PSA TOTAL ASSAY OF PSA TOTAL 08/14/2019 NEX TGEN 12:00:00 AM ([facility]) IRON BINDING TEST IRON BINDING TEST 08/14/2019 NEXTG EN 12:00:00 AM ([facility]) ASSAY OF FOLIC ACID SERUM ASSAY OF FOLIC ACID 08/14/2019 NEXTGEN SERUM 12:00:00 AM ([facility]) ASSAY OF FERRITIN ASSAY OF FERRITIN 08/14/2019 NEXTG EN 12:00:00 AM ([facility]) VITAMIN B-12 VITAMIN B-12 08/14/2019 NEXTGEN 12:00:00 AM ([facility]) VITAMIN D 25 HYDROXY VITAMIN D 25 08/14/2019 NEXTGEN HYDROXY 12:00:00 AM ([facility]) UR ALBUMIN QUANTITATIVE UR ALBUMIN 08/14/2019 NEXT GEN QUANTITATIVE 12:00:00 AM ([facility]) URINALYSIS AUTO W/SCOPE URINALYSIS AUTO 08/14/2019 N EXTGEN W/SCOPE 12:00:00 AM ([facility]) LIPID PANEL LIPID PANEL 08/14/2019 NEXTGEN 12:00:00 AM ([facility]) ROUTINE VENIPUNCTURE ROUTINE 08/14/2019 NEXTGEN VENIPUNCTURE 12:00:00 AM ([facility]) PREV VISIT EST AGE 40-64 PREV VISIT EST AGE 0508/14/2019 NEXTGEN 40-64 12:00:00 AM ([facility]) EGD CONTROL BLEEDING ANY EGD CONTROL 08/11/2019 NEX TGEN BLEEDING ANY 12:00:00 AM ([facility]) ERCP REMOVE DUCT CALCULI ERCP REMOVE DUCT 08/05/2019 NEXTGEN CALCULI 12:00:00 AM ([facility]) INITIAL HOSPITAL CARE INITIAL HOSPITAL 07/28/2019 NE XTGEN CARE 12:00:00 AM ([facility]) INPATIENT CONSULTATION INPATIENT 06/05/2019 NEXTG EN CONSULTATION 12:00:00 [facility] Electrocardiographic 06/04/2019 [place] procedure (procedure) 12:00:00 AM Hospit al EST Physical therapy procedure 02/09/2019 [place] (regime/therapy) 12:00:00 AM Hospital EDT Diagnostic radiography of 02/08/2019 [place] abdomen (procedure) 12:00:00 AM Hospital EDT Physical therapy procedure 02/06/2019 [place] (regime/therapy) 12:00:00 AM Hospital EDT Probe Cover With Gel 48 In. 02/05/2019 [place] 12:00:00 AM Hospital EDT PowerGlide Pro 18G x 10CM 02/05/2019 [place] 12:00:00 AM Hospital EDT Diagnostic radiography of 02/04/2019 [place] abdomen (procedure) 12:00:00 AM Hospital EDT Plain chest X-ray 02/02/2019 [place] (procedure) 12:00:00 AM Hospital EDT Electrocardiographic 02/01/2019 [place] procedure (procedure) 12:00:00 AM Hospit al EDT Diagnostic radiography of 01/31/2019 [place] abdomen (procedure) 12:00:00 AM Hospital EDT Electrocardiographic 01/29/2019 [place] procedure (procedure) 12:00:00 AM Hospit al EDT Computed tomography of 01/09/2019 [place] abdominal vascular 12:00:00 AM Hospital structures (procedure) EDT Computed tomography of 01/09/2019 [place] abdominal vascular 12:00:00 AM Hospital structures (procedure) EDT Physical therapy procedure 01/08/2019 [place] (regime/therapy) 12:00:00 AM Hospital EDT Physical therapy procedure 01/08/2019 [place] (regime/therapy) 12:00:00 AM Hospital EDT Oxygen therapy (procedure) 01/06/2019 [place] 12:00:00 AM Hospital EDT DETACHMENT AT RIGHT LOWER 01/06/2019 [place] LEG, HIGH, OPEN APPROACH 12:00:00 AM [facility] pital EDT TRANSFUSE NONAUT RED BLOOD 01/06/2019 [place] CELLS IN PERIPH VEIN, PERC 12:00:00 AM H ospital EDT Oxygen therapy (procedure) 01/06/2019 [place] 12:00:00 AM Hospital EDT Physical therapy procedure 01/04/2019 [place] (regime/therapy) 12:00:00 AM Hospital EDT Physical therapy procedure 01/04/2019 [place] (regime/therapy) 12:00:00 AM Hospital EDT Ultrasonography of abdomen 12/31/2018 [place] (procedure) 12:00:00 AM Hospital EDT Ultrasonography of abdomen 12/31/2018 [place] (procedure) 12:00:00 AM Hospital EDT Plain chest X-ray 12/29/2018 [place] (procedure) 12:00:00 AM Hospital EDT Plain chest X-ray 12/29/2018 [place] (procedure) 12:00:00 AM Hospital EDT INSERTION OF INFUSION 12/29/2018 [place] DEVICE INTO R [facility], PERC 12:00:00 AM H ospital APPROACH EDT EXCISION OF LOWER 12/29/2018 [place] ESOPHAGUS, ENDO, DIAGN 12:00:00 AM [facility] EDT EXCISION OF DUODENUM, ENDO, 12/29/2018 [place] DIAGN 12:00:00 AM Hospital EDT Plain chest [...] Probe Cover With Gel 48 In. 12/24/2018 [place] 12:00:00 AM Hospital EDT Ultrasound scan of upper 12/24/2018 [place] limb vessels (procedure) 12:00:00 AM Hos pital EDT PowerGlide ST 18G x 10CM 12/24/2018 [place] 12:00:00 AM Hospital EDT Probe Cover With Gel 48 In. 12/24/2018 [place] 12:00:00 AM Hospital EDT Ultrasound scan of upper 12/24/2018 [place] limb vessels (procedure) 12:00:00 AM Hos pital EDT PowerGlide ST 18G x 10CM 12/24/2018 [place] 12:00:00 AM Hospital EDT Physical therapy procedure 12/23/2018 [place] (regime/therapy) 12:00:00 AM Hospital EDT Physical therapy procedure 12/23/2018 [place] (regime/therapy) 12:00:00 AM Hospital EDT Echocardiography 12/22/2018 [place] (procedure) 12:00:00 AM Hospital EDT Plain chest X-ray 12/22/2018 [place] (procedure) 12:00:00 AM Hospital EDT Echocardiography 12/22/2018 [place] (procedure) 12:00:00 AM Hospital EDT Plain chest X-ray 12/22/2018 [place] (procedure) 12:00:00 AM Hospital EDT DRAINAGE OF RIGHT LOWER LEG 12/21/2018 [place] MUSCLE, OPEN APPROACH 12:00:00 AM Hospit al [...] ST 18G x 8CM 12/13/2018 [place] 12:00:00 AM Hospital EDT PowerGlide ST 18G x 8CM 12/13/2018 [place] 12:00:00 AM Hospital EDT Doppler ultrasound of 12/06/2018 [place] vessels of both lower 12:00:00 AM Hospit [...] AM Hospital EDT Doppler ultrasound of 12/06/2018 [place] vessels of both lower 12:00:00 AM Hospit [...] Hospital EDT Results ID Date Data Source [id number] 01/20/2020 09:10:00 PM EDT [facility] Name Value Range Interpretation Description Data Sup porting Code Source(s) Document(s ) SARS [facility] coronavirus 2 RNA This lab was ordered by [facility] and reported by [facility]. ID Date Data Source [id number] 01/07/2020 05:37:00 AM EDT [facility] Name Value Range Interpretation Description Data Sup porting Code Source(s) Document(s ) SARS [facility] coronavirus 2 RNA This lab was ordered by [facility] and reported by [facility]. ID Date Data Source [id number] 12/04/2019 10:30:00 PM EDT [facility] Name Value Range Interpretation Description Data Sup porting Code Source(s) Document(s ) SARS [facility] coronavirus 2 RNA This lab was ordered by [facility] and reported by [facility]. ID Date Data Source [id number] 11/10/2019 06:03:00 PM EDT [facility] Name Value Range Interpretation Description Data Sup porting Code Source(s) Document(s ) SARS [facility] coronavirus 2 RNA This lab was ordered by [facility] and reported by [facility]. ID Date Data Source [id number] 11/07/2019 01:25:00 PM EDT [facility] Name Value Range Interpretation Description Data Sup porting Code Source(s) Document(s ) SARS [facility] coronavirus 2 RNA This lab was ordered by [facility] and reported by [facility]. ID Date Data Source [id number] 10/27/2019 04:47:00 PM EDT [facility] Name Value Range Interpretation Description Data Sup porting Code Source(s) Document(s ) 2019 Novel [facility] Coronavirus RNA Interpretation Unspecified Specimen Qualitative MEG Probe Detection This lab was ordered by [facility] and [facility] by [facility]. ID Date Data Source [id number] 10/23/2019 07:21:33 PM EDT [facility] System Name Value Range Interpretation Description Data [...] th e patient. ID Date Data Source [id number] 10/23/2019 07:21:33 PM EDT [facility] [...] / 6:19 AM ID Date Data Source [id number] 10/23/2019 07:21:33 PM [facility] Name Value Range Interpretation Description Data Sup porting Code Source(s) Document(s ) 97809-3 NEGATIVE Testing Normal (applies COVID-19.. [facility] [...] Range: NEGATIVE . ID Date Data Source [id number] 10/23/2019 07:21:33 PM EDT [facility] Name Value Range Interpretation Description [...] Health results) System ID Date Data Source [id number] 10/23/2019 07:21:33 PM EDT [facility] shauna [...] urine test abnormalities ID Date Data Source [id number] 10/23/2019 07:21:33 PM EDT [facility] [...] Heart = 3.0-4.5 ID Date Data Source [id number] 10/23/2019 07:21:33 PM EDT [facility] Name Value Range Interpretation Description Data Sup porting Code Source(s) Document(s ) aPTT in Blood 29.3 Normal (applies Activated [facility] by Coagulation {Seconds to non-numeric Partial Health assay } results) Thromboplastin System Time ID Date Data Source [id number] 10/23/2019 11:18:00 AM EDT [facility] Nuclear Medicine Examination: Lung Perfu moisés [...] would berecomme nded.ElectronicallySigned:Lon Bowie, at 11:54 EDTTel [phone], Service support ,[phone] Name Value Range Interpretation Code Description Data Jackie rce(s) Supporting Document(s ) ID Date Data Source [id number] 10/23/2019 05:32:00 AM EDT [facility] Name Value Range Interpretation Code Description Data Jackie rce(s) Supporting Document(s ) COVID-19.. [facility] This lab was [facility] by [facility] ID Date Data Source [id number] 10/23/2019 05:09:00 AM EDT [facility] HISTORY: Fever;EXAMINATION/TECHNIQUE:XR Chest 1 View:COMPARISON: None FINDINGS:LINES/DEVICES:None.LUNG S:No airspace consolidation.Unremarkable inte rstitium.No effusion.Nopneumothorax.MEDIASTINUM: No cardiomegaly.MUSCULOSKELETAL: No acute osseousfinding.IMPRESSION:No evidence of acute cardiopulmonary process. ElectronicallySigned by Clemente Mays MD on 10/23/2019 at 0602 Reported and signed by: Clemente Mays MDEnvision Ph ysician ServicesSHCR DR CLEMENTE MAYS MS [phone]:Ronnell Mays MD at 6:02 EDTTel , Service support [phone] Name Value Range Interpretation Code Description Data Jackie rce(s) Supporting Document(s ) ID Date Data Source [id number] 10/17/2019 06:30:00 PM EDT [facility] Name Value Range Interpretation Description Data Sup porting Code Source(s) Document(s ) [facility] coronavirus 2 RNA This lab was ordered by Triston Vyas and reported by [facility]. ID Date Data Source [id number] 10/11/2019 05:04:00 PM EDT [facility] Name Value Range Interpretation Description Data Sup porting Code Source(s) Document(s ) [facility] coronavirus 2 RNA This lab was ordered by Triston Vyas and reported by [facility]. ID Date Data Source [id number] 10/11/2019 06:29:00 AM EDT [facility] Name Value Range Interpretation Description Data Sup porting Code Source(s) Document(s ) [facility] coronavirus 2 RNA This lab was ordered by Triston Vyas and reported by [facility]. ID Date Data Source [id number] 10/01/2019 09:30:00 PM EDT [facility] Name Value Range Interpretation Description Data Sup porting Code Source(s) Document(s ) SARS [facility] coronavirus 2 RNA This lab was ordered by Triston Vyas and reported by [facility]. ID Date Data Source [id number] 10/01/2019 12:06:00 PM EDT [facility] Name Value Range Interpretation Description Data Sup porting Code Source(s) Document(s ) [facility] coronavirus 2 RNA This lab was ordered by Triston Vyas and reported by [facility]. ID Date Data Source [id number] 09/24/2019 03:15:00 AM EDT [facility] Name Value Range Interpretation Description Data Sup porting Code Source(s) Document(s ) 2019 Novel [facility] Coronavirus RNA Interpretation Unspecified Specimen Qualitative MEG Probe Detection This lab was ordered by [facility] and reported by [facility]. ID Date Data Source [id number] 09/03/2019 02:51:00 AM EDT [facility] Name Value Range Interpretation Code Description Data Jackie rce(s) Supporting Document(s ) SARS-CoV-2 [facility] N gene Resp Ql MEG+probe This lab was ordered by [facility] and reported by [facility]. ID Date Data Source [id number] 08/26/2019 02:01:00 AM EDT [facility] Name Value Range Interpretation Description Data Sup porting Code Source(s) Document(s ) 2018 Novel [facility] Coronavirus RNA Interpretation Unspecified Specimen Qualitative MEG Probe Detection This lab was ordered by [facility] and reported by [facility]. ID Date Data Source [id number] 08/11/2019 03:01:00 AM EDT [facility] Name Value Range Interpretation Description Data Sup porting Code Source(s) Document(s ) 2018 Novel [facility] Coronavirus RNA Interpretation Unspecified Specimen Qualitative MEG Probe Detection This lab was ordered by [facility] and reported by [facility]. ID Date Data Source [id number] 08/11/2019 03:01:00 AM EDT [facility] Name Value Range Interpretation Description Data Sup porting Code Source(s) Document(s ) 2018 Novel [facility] Coronavirus RNA Interpretation Unspecified Specimen Qualitative MEG Probe Detection This lab was ordered by [facility] and reported by [facility]. ID Date Data Source [id number] 06/25/2019 07:34:00 AM EDT [facility] Added by Discern Rule GLB_ADD_GFR_BMP Name Value Range Interpretation Code Description Data Jackie rce(s) Supporting Document(s ) eGFR-AA 62 >=[address] [facility] mL/min/1.[address] The CKD-EPI equation for non- Nini [...] Mild decrease* G3a 45-59 Mild to moderate sckeyefhP1w 30-44 Moderate to s evere decreaseG4 15-29 Severe decreaseG5 14 or less Kidney fa ilure eGFR-MEG 51 mL/min/1.73m2 >=60 LO [facility] The CKD-EPI equation for [...] Mild decrease* G3a 45-59 Mild to moderate wuvrpivvE2u 30-44 Moderate to s evere decreaseG4 15-29 Severe decreaseG5 14 or less Kidney fa ilure ID Date Data Source [id number] 06/25/2019 07:34:00 AM EDT [facility] Name Value Range Interpretation Description Data Sup porting Code Source(s) Document(s ) Glucose Lvl 172 65-99 [place] mg/dL [facility] BUN 25.0 7.0-21.0 [place] mg/dL [facility] Creatinine 1.45 0.70-1.2 [place] mg/dL 0 [facility] BUN/Creat 17.2 7.0-29.0 [place] Ratio ratio [facility] Sodium Lvl 136 136-146 [place] mmol/L [facility] Potassium Lvl 3.1 3.5-5.1 [place] mmol/L [facility] Chloride 101 98-109 [place] mmol/L [facility] CO2 27 17-33 [place] mmol/L [facility] AGAP 8 5-15 [place] [facility] Calcium Lvl 8.5 8.3-10.2 [place] mg/dL [facility] ID Date Data Source [id number] 06/25/2019 07:03:00 AM EDT [facility] Name Value Range Interpretation Description Data Sup porting Code Source(s) Document(s ) Neut Auto 60.7 % 40.0-70.0 NO [facility] Lymph Auto 29.6 % 22.0-44.0 NO [facility] [place] Auto 9.2 % 4.0-11.0 NO [facility] Eos Auto 0.2 % 0.0-8.0 NO [facility] Baso Auto 0.3 % 0.0-3.0 NO [facility] Neut 5.2 1.8-7.7 [place] Absolute x10(3)/[facility] Lymph 2.5 1.0-4.8 [place] Absolute x10(3)/[facility] [place] 0.8 0.2-1.2 [place] Absolute x10(3)/[facility] Eos Absolute 0.0 0.0-0.9 [place] x10(3)/[facility] Baso 0.0 0.0-0.3 [place] Absolute x10(3)/[facility] ID Date Data Source [id number] 06/25/2019 07:03:00 AM EDT [facility] Name Value Range Interpretation Description Data Sup porting Code Source(s) Document(s ) WBC 8.5 4.5-11.0 [place] x10(3)/[facility] RBC 3.71 4.50-5.90 [place] x10(6)/[facility] Hgb 9.1 gm/dL 13.5-17.5 [facility] Hct 28.2 % 41.0-53.0 [facility] MCV 76 fL 80-100 [facility] MCH 24.5 pg 26.0-34.0 [facility] MCHC 32.2 31.0-37.0 [facility] gm/dL [facility] RDW 14.8 % 11.5-14.5 [facility] Platelet 379 150-350 [facility] x10(3)/[facility] MPV 7.1 fL 7.4-10.4 [facility] ID Date Data Source [id number] 06/24/2019 09:35:00 AM EDT [facility] Name Value Range Interpretation Description Data Sup porting Code Source(s) Document(s ) Phosphorus 4.3 mg/dL 2.5-5.0 [facility] ID Date Data Source [id number] 06/24/2019 09:35:00 AM EDT [facility] patient refused blood work.CIELO Burris was notified.As per patient request, RN to draw blood from port .06/24/2019 08:07:16 EDT, ENK Name Value Range Interpretation Description Data Sup porting Code Source(s) Document(s ) Magnesium 1.9 mg/dL 1.6-2.5 [facility] ID Date Data Source [id number] 06/24/2019 09:35:00 AM EDT [facility] Added by Discern Rule GLB_ADD_GFR_CMP Name Value Range Interpretation Code Description Data Jackie rce(s) Supporting Document(s ) eGFR-AA 38 >=60 [facility] mL/min/1.[address] [place] [address] The CKD-EPI equation for non- Nini rican [...] Mild decrease* G3a 45-59 Mild to moderate [id number] 30-44 Moderate to s evere decreaseG4 15-29 Severe decreaseG5 14 or less Kidney fa ilure eGFR-MEG 31 mL/min/1.73m2 >=60 LO [facility] The CKD-EPI equation for [...] Mild decrease* G3a 45-59 Mild to moderate [id number] 30-44 Moderate to s evere decreaseG4 15-29 Severe decreaseG5 14 or less Kidney fa reji ID Date Data Source [id number] 06/24/2019 09:35:00 AM EDT [facility] patient refused blood work .Cielo Burris was notified.As per patient request , Rn to draqw blood from port.06/24/2019 08:05:11 EDT, ENK Name Value Range Interpretation Description Data Sup porting Code Source(s) Document(s ) Glucose Lvl 151 65-99 [place] mg/dL [facility] BUN 29.0 7.0-21.0 [place] mg/dL [facility] Creatinine 2.20 0.70-1.2 [place] mg/dL 0 [facility] BUN/Creat 13.2 7.0-29.0 [place] Ratio ratio [facility] Sodium Lvl 137 136-146 [place] mmol/L [facility] Potassium Lvl 3.5 3.5-5.1 [place] mmol/L [facility] Chloride 100 98-109 [place] mmol/L [facility] CO2 26 17-33 [place] mmol/L [facility] AGAP 11 5-15 NO [facility] Calcium Lvl 8.3 8.3-10.2 [place] mg/dL [facility] Total Protein 7.2 6.0-8.3 [place] gm/dL [facility] Albumin Lvl 3.0 3.7-5.3 [place] gm/dL [facility] Glob 4.2 2.0-4.5 [place] gm/dL [facility] A/G Ratio 0.7 1.0-2.2 [place] ratio [facility] Bili Total 0.3 0.4-1.1 [place] mg/dL [facility] Alk Phos 106 IU/L 30-125 NO [facility] AST 11 IU/L 10-35 NO [facility] ALT 11 IU/L 8-40 NO [facility] ID Date Data Source [id number] 06/24/2019 09:15:00 AM EDT [facility] Name Value Range Interpretation Description Data Sup porting Code Source(s) Document(s ) Neut Auto 65.3 % 40.0-70.0 [facility] Lymph Auto 25.1 % 22.0-44.0 [facility] [place] Auto 9.2 % 4.0-11.0 [facility] Eos Auto 0.2 % 0.0-8.0 NO [facility] Baso Auto 0.2 % 0.0-3.0 NO [facility] Neut 6.0 1.8-7.7 [place] Absolute x10(3)/[facility] Lymph 2.3 1.0-4.8 [place] Absolute x10(3)/[facility] [place] 0.8 0.2-1.2 [place] Absolute x10(3)/[facility] Eos Absolute 0.0 0.0-0.9 [place] x10(3)/[facility] Baso 0.0 0.0-0.3 [place] Absolute x10(3)/[facility] ID Date Data Source [id number] 06/24/2019 09:15:00 AM EDT [facility] patient refused blood work . Cielo Burris no felipe.As per PAtient request , Rn has to draw patient from port .06/24/2019 08:03: 02 EDT, ENK Name Value Range Interpretation Description Data Sup porting Code Source(s) Document(s ) WBC 9.2 4.5-11.0 [place] x10(3)/[facility] RBC 3.60 4.50-5.90 [place] x10(6)/[facility] Hgb 9.0 gm/dL 13.5-17.5 [facility] Hct 27.6 % 41.0-53.0 [facility] MCV 77 fL 80-100 [facility] MCH 24.9 pg 26.0-34.0 [facility] MCHC 32.5 31.0-37.0 [place] gm/dL [facility] RDW 15.1 % 11.5-14.5 [facility] Platelet 395 150-350 [place] x10(3)/[facility] MPV 7.3 fL 7.4-10.4 [facility] ID Date Data Source [id number] 06/23/2019 04:40:00 PM EDT [facility] Patient Name: KARSTEN GIBBS EMRN: [id number] Interventional RadiologyACCESSION EXAM DATE/TIME PROCEDURE ORDERING PROVIDER [id number] 06/23/2019 16:01 EDT IR Ins Picc Wo [...] subcu taneous infiltrationAccess: Right brachial veinDevice: 4 Chinese by 35 cmClosure: Dr elias sterile dressingContrast: [...] time of puncture, and sent to the PA CS. The catheter was tested, demonstrating good flush [...] Supporting Document(s ) ID Date Data Source [id number] 06/23/2019 05:05:00 AM EDT [facility] Patient Name: KARSTEN GIBBS EMRN: [id number] Computed TomographyACCESSION EXAM DATE/TIME PROCEDURE ORDERING PROVIDER [id number] 06/23/2019 04:[address] Abdomen Pelvis Myra [...] e evaluation of this patient. Final Dictated: Lucita CLINTON, Lon Avendano 0 06/23/19 04:54Signed: Lon Landrum MD 06/23/19 05:05Transcribed by: BRG Name Value Range Interpretation Code Description Data Jackie rce(s) Supporting Document(s ) ID Date Data Source [id number] 06/23/2019 04:12:00 AM EDT [facility] Name Value Range Interpretation Description Data Sup porting Code Source(s) Document(s ) Segs 89 % 40-70 [facility] Band 0 % 0-6 [facility] Neutr 16.8 1.8-7.7 [facility] Absolute x10(3)/[facility] Lymph 8 % 22-44 [facility] Monocyte 3 % 4-11 [facility] Eos 0 % 0-8 [facility] Basophil 0 % 0-3 [facility] RBC Morph Normocyt AB [facility] Anisocyte [facility] Platelet NO [facility] Liliana [facility] Plt Estimate NO [facility] ID Date Data Source [id number] 06/23/2019 03:38:00 AM EDT [facility] Added by Discern Rule GLB_ADD_GFR_CMP Name Value Range Interpretation Code Description Data Jackie rce(s) Supporting Document(s ) eGFR-AA 74 >=60 [facility] mL/min/1.[address] [place] [address] The CKD-EPI equation for non- Nini rican [...] Mild decrease* G3a 45-59 Mild to moderate gimgqwudI1f 30-44 Moderate to s evere decreaseG4 15-29 Severe decreaseG5 14 or less Kidney fa ilure eGFR-MEG 61 mL/min/1.73m2 >=60 NO [facility] The CKD-EPI equation for [...] Mild decrease* G3a 45-59 Mild to moderate [id number] 30-44 Moderate to s evere decreaseG4 15-29 Severe decreaseG5 14 or less Kidney fa ilure ID Date Data Source [id number] 06/23/2019 03:38:00 AM EDT [facility] Name Value Range Interpretation Code Description Data Jackie rce(s) Supporting Document(s ) Lipase Lvl 19 IU/L 10-59 NO [facility] ID Date Data Source [id number] 06/23/2019 03:38:00 AM EDT [facility] Name Value Range Interpretation Description Data Sup porting Code Source(s) Document(s ) Glucose Lvl 202 65-99 [place] mg/dL [facility] BUN 15.0 7.0-21.0 [place] mg/dL [facility] Creatinine 1.24 0.70-1.2 [place] mg/dL 0 [facility] BUN/Creat 12.1 7.0-29.0 [place] Ratio ratio [facility] Sodium Lvl 132 136-146 [place] mmol/L [facility] Potassium Lvl 4.1 3.5-5.1 [place] mmol/L [facility] Chloride 98 98-109 [place] mmol/L [facility] CO2 21 17-33 [place] mmol/L [facility] AGAP 13 5-15 NO [facility] Calcium Lvl 8.8 8.3-10.2 [place] mg/dL [facility] Total Protein 8.1 6.0-8.3 [place] gm/dL [facility] Albumin Lvl 3.1 3.7-5.3 [place] gm/dL [facility] Glob 5.0 2.0-4.5 [place] gm/dL [facility] A/G Ratio 0.6 1.0-2.2 [place] ratio [facility] Bili Total 1.1 0.4-1.1 [place] mg/dL [facility] Alk Phos 128 IU/L 30-125 [facility] AST 28 IU/L 10-35 NO [facility] ALT 15 IU/L 8-40 NO [facility] ID Date Data Source [id number] 06/23/2019 03:35:00 AM EDT [facility] Name Value Range Interpretation Description Data Sup porting Code Source(s) Document(s ) WBC 18.9 4.5-11.0 [place] x10(3)/[facility] RBC 4.01 4.50-5.90 [place] x10(6)/[facility] Hgb 9.9 gm/dL 13.5-17.5 [facility] Hct 30.2 % 41.0-53.0 [facility] MCV 76 fL 80-100 [facility] MCH 24.8 pg 26.0-34.0 [facility] MCHC 32.8 31.0-37.0 [facility] gm/dL [facility] RDW 15.1 % 11.5-14.5 [facility] Platelet 404 150-350 [facility] x10(3)/[facility] MPV 8.7 fL 7.4-10.4 [facility] ID Date Data Source [id number] 06/23/2019 03:16:00 AM EDT [facility] Name Value Range Interpretation Description Data Sup porting Code Source(s) Document(s ) Troponin- 0.01 0.02-0.05 [facility] I ng/mL [facility] ID Date Data Source [id number] 06/09/2019 05:56:00 PM EST [facility] Added by Discern Rule GLB_ADD_GFR_BMP Name Value Range Interpretation Code Description Data Jackie rce(s) Supporting Document(s ) eGFR-AA 74 >=60 [facility] mL/min/[address] [place] [address] The CKD-EPI equation for non- Nini rican [...] Mild decrease* G3a 45-59 Mild to moderate txabdssyH4m 30-44 Moderate to s evere decreaseG4 15-29 Severe decreaseG5 14 or less Kidney fa ilure eGFR-MEG 61 mL/min/1.73m2 >=60 NO [facility] The CKD-EPI equation for [...] Mild decrease* G3a 45-59 Mild to moderate yvnprfllA8y 30-44 Moderate to s evere decreaseG4 15-29 Severe decreaseG5 14 or less Kidney fa ilure ID Date Data Source [id number] 06/09/2019 05:56:00 PM [facility] Name Value Range Interpretation Description Data Sup porting Code Source(s) Document(s ) Magnesium 2.0 mg/dL 1.6-2.5 NO [facility] ID Date Data Source [id number] 06/09/2019 05:56:00 PM [facility] PATIENT ASKED TO COME BACK IN 30 MINS [place] 06/09/2019 15:47:54 EST Name Value Range Interpretation Description Data Sup porting Code Source(s) Document(s ) Glucose Lvl 218 65-99 [place] mg/dL [facility] BUN 19.0 7.0-21.0 [place] mg/dL [facility] Creatinine 1.24 0.70-1.2 [place] mg/dL 0 [facility] BUN/Creat 15.3 7.0-29.0 [place] Ratio ratio [facility] Sodium Lvl 129 136-146 [place] mmol/L [facility] Potassium Lvl 3.7 3.5-5.1 [place] mmol/L [facility] Chloride 99 98-109 [place] mmol/L [facility] CO2 22 17-33 [place] mmol/L [facility] AGAP 8 5-15 NO [facility] Calcium Lvl 8.0 8.3-10.2 [place] mg/dL [facility] ID Date Data Source [id number] 06/09/2019 09:59:00 PM EST [facility] Name Value Range Interpretation Description Data Sup porting Code Source(s) Document(s ) [facility] Osm[facility] 601 50-1200 [facility] Test performed on the Advanced Micro-Osm ometer using freezing point depression. ID Date Data Source [id number] 06/09/2019 04:24:00 PM EST [facility] Name Value Range Interpretation Code Description Data Jackie rce(s) Supporting Document(s ) U Sodium 124 mmol/L NA [facility] Normal ranges for Sodium in random urine are diet dependent. U Potassium 27.6 mmol/L NA [facility] Normal ranges for Potassium in random ur ine are diet dependent. U Chloride 133 mmol/L 15-400 NO [facility] Normal ranges for Chloride in random uri ne are diet dependent. ID Date Data Source [id number] 06/09/2019 07:14:00 AM EST [facility] Name Value Range Interpretation Description Data Sup porting Code Source(s) Document(s ) Magnesium 1.7 mg/dL 1.6-2.5 NO [facility] ID Date Data Source [id number] 06/09/2019 07:14:00 AM EST [facility] Added by Discern Rule GLB_ADD_GFR_BMP Name Value Range Interpretation Code Description Data Jackie rce(s) Supporting Document(s ) eGFR-AA [address] >=60 [facility] mL/min/1.[address] The CKD-EPI equation for non- Nini [...] Mild decrease* G3a 45-59 Mild to moderate vncdxfrzD2q 30-44 Moderate to s evere decreaseG4 15-29 Severe decreaseG5 14 or less Kidney fa ilure eGFR-MEG 69 mL/min/1.73m2 >=60 NO [facility] The CKD-EPI equation for [...] Mild decrease* G3a 45-59 Mild to moderate gvwlgbcaS2k 30-44 Moderate to s evere decreaseG4 15-29 Severe decreaseG5 14 or less Kidney fa ilure ID Date Data Source [id number] 06/09/2019 07:14:00 AM [facility] Name Value Range Interpretation Description Data Sup porting Code Source(s) Document(s ) Glucose Lvl 150 65-99 [place] mg/dL [facility] BUN 20.0 7.0-21.0 [place] mg/dL [facility] Creatinine 1.11 0.70-1.2 [place] mg/dL 0 [facility] BUN/Creat 18.0 7.0-29.0 [place] Ratio ratio [facility] Sodium Lvl 129 136-146 [place] mmol/L [facility] Potassium Lvl 2.9 3.5-5.1 [place] mmol/L [facility] Chloride 99 98-109 [place] mmol/L [facility] CO2 22 17-33 [place] mmol/L [facility] AGAP 8 5-15 [facility] Calcium Lvl 8.3 8.3-10.2 [place] mg/dL [facility] ID Date Data Source [id number] 06/08/2019 08:05:00 AM [facility] Added by Discern Rule GLB_ADD_GFR_BMP Name Value Range Interpretation Code Description Data Jackie rce(s) Supporting Document(s ) eGFR-AA 86 >=[address] [facility] mL/min/1.[address] [place] [address] The CKD-EPI equation for non- Nini rican [...] Mild decrease* G3a 45-59 Mild to moderate gjupsjiyI0p 30-44 Moderate to s evere decreaseG4 15-29 Severe decreaseG5 14 or less Kidney fa ilketty eGFR-MEG 71 mL/min/1.73m2 >=60 NO [facility] The CKD-EPI equation for non- Nini [...] Mild decrease* G3a 45-59 Mild to moderate tcjnsrkwF2l 30-44 Moderate to s evere decreaseG4 15-29 Severe decreaseG5 14 or less Kidney fa reji ID Date Data Source [id number] 06/08/2019 08:05:00 AM [facility] Name Value Range Interpretation Description Data Sup porting Code Source(s) Document(s ) Glucose Lvl 158 65-99 [place] mg/dL [facility] BUN 21.0 7.0-21.0 [place] mg/dL [facility] Creatinine 1.09 0.70-1.2 [place] mg/dL 0 [facility] BUN/Creat 19.3 7.0-29.0 [place] Ratio ratio [facility] Sodium Lvl 131 136-146 [place] mmol/L [facility] Potassium Lvl 3.0 3.5-5.1 [place] mmol/L [facility] Chloride 100 98-109 [place] mmol/L [facility] CO2 23 17-33 [place] mmol/L [facility] AGAP 8 5-15 NO [facility] Calcium Lvl 8.5 8.3-10.2 [place] mg/dL [facility] ID Date Data Source [id number] 06/07/2019 08:50:00 AM EST [facility] Name Value Range Interpretation Description Data Sup porting Code Source(s) Document(s ) Neut Auto 67.3 % 40.0-70.0 NO [facility] Lymph Auto 21.9 % 22.0-44.0 LO [facility] [place] Auto 10.1 % 4.0-11.0 NO [facility] Eos Auto 0.3 % 0.0-8.0 NO [facility] Baso Auto 0.4 % 0.0-3.0 NO [facility] Neut 6.2 1.8-7.7 [place] Absolute x10(3)/[facility] Lymph 2.0 1.0-4.8 [place] Absolute x10(3)/[facility] [place] 0.9 0.2-1.2 [place] Absolute x10(3)/[facility] Eos Absolute 0.0 0.0-0.9 [place] x10(3)/[facility] Baso 0.0 0.0-0.3 [place] Absolute x10(3)/[facility] ID Date Data Source [id number] 06/07/2019 08:50:00 AM EST [facility] Name Value Range Interpretation Description Data Sup porting Code Source(s) Document(s ) WBC 9.1 4.5-11.0 [place] x10(3)/[facility] RBC 4.07 4.50-5.90 [place] x10(6)/[facility] Hgb 10.2 13.5-17.5 [place] gm/dL [facility] Hct 31.2 % 41.0-53.0 [facility] MCV 77 fL 80-100 [facility] MCH 25.1 pg 26.0-34.0 [facility] MCHC 32.8 31.0-37.0 [facility] RDW 14.7 % 11.5-14.5 [facility] Platelet 283 150-350 NO [facility] x10(3)/[facility] MPV 7.9 fL 7.4-10.4 [facility] ID Date Data Source [id number] 06/07/2019 08:02:00 AM [facility] Added by Discern Rule GLB_ADD_GFR_RENAL Name Value Range Interpretation Code Description Data Jackie rce(s) Supporting Document(s ) eGFR-AA >[address] [facility] mL/min/[address] The CKD-EPI equation for non- Nini [...] Mild decrease* G3a 45-59 Mild to moderate vqgeeapcS9t 30-44 Moderate to s evere decreaseG4 15-29 Severe decreaseG5 14 or less Kidney fa ilure eGFR-MEG 77 mL/min/1.73m2 >=60 [facility] The CKD-EPI equation for non- [...] Mild decrease* G3a 45-59 Mild to moderate ksxnoheuB9w 30-44 Moderate to s evere decreaseG4 15-29 Severe decreaseG5 14 or less Kidney fa ilure ID Date Data Source [id number] 06/07/2019 08:02:00 AM [facility] Name Value Range Interpretation Description Data Sup porting Code Source(s) Document(s ) Albumin Lvl 2.8 3.7-5.3 [place] gm/dL [facility] Calcium Lvl 8.2 8.3-10.2 [place] mg/dL [facility] CO2 23 17-33 [place] mmol/L [facility] Chloride 103 98-109 [place] mmol/L [facility] Creatinine 1.01 0.70-1.2 NO [place] mg/dL 0 [facility] Glucose Lvl 162 65-99 [place] mg/dL [facility] Phosphorus 2.3 2.5-5.0 [place] mg/dL [facility] BUN 19.0 7.0-21.0 [place] mg/dL [facility] Sodium Lvl 133 136-146 [place] mmol/L [facility] Potassium Lvl 3.1 3.5-5.1 [place] mmol/L [facility] BUN/Creat 18.8 7.0-29.0 NO [place] Ratio ratio [facility] ID Date Data Source [id number] 06/07/2019 08:02:00 AM EST [facility] Name Value Range Interpretation Description Data Sup porting Code Source(s) Document(s ) Magnesium 1.8 mg/dL 1.6-2.5 NO [facility] ID Date Data Source [id number] 06/06/2019 01:07:00 PM [facility] Patient Name: KARSTEN GIBBS EMRN: [id number] General DiagnosticACCESSION EXAM DATE/TIME PROCEDURE ORDERING PROVIDER [id number] 06/06/2019 13:01 EST XR Abdomen 2 Views [...] Supporting Document(s ) ID Date Data Source [id number] 06/06/2019 09:04:00 AM [facility] Name Value Range Interpretation Description Data Sup porting Code Source(s) Document(s ) Magnesium 2.0 mg/dL 1.6-2.5 NO [facility] ID Date Data Source [id number] 06/06/2019 09:04:00 AM [facility] Added by Discern Rule GLB_ADD_GFR_CMP Name Value Range Interpretation Code Description Data Jackie rce(s) Supporting Document(s ) eGFR-AA [address] >=[address] [facility] mL/min/[address] [place] [address] The CKD-EPI equation for non- Nini rican [...] Mild decrease* G3a 45-59 Mild to moderate [id number] 30-44 Moderate to s evere decreaseG4 15-29 Severe decreaseG5 14 or less Kidney fa ilure eGFR-MEG 57 mL/min/1.73m2 >=60 LO [facility] The CKD-EPI equation for [...] Mild decrease* G3a 45-59 Mild to moderate xnpyvswqH1m 30-44 Moderate to s evere decreaseG4 15-29 Severe decreaseG5 14 or less Kidney fa ilure ID Date Data Source [id number] 06/06/2019 09:04:00 AM EST [facility] Name Value Range Interpretation Description Data Sup porting Code Source(s) Document(s ) Glucose Lvl 149 65-99 [place] mg/dL [facility] BUN 28.0 7.0-21.0 [place] mg/dL [facility] Creatinine 1.32 0.70-1.2 [place] mg/dL 0 [facility] BUN/Creat 21.2 7.0-29.0 NO [place] Ratio ratio [facility] Sodium Lvl 134 136-146 [place] mmol/L [facility] Potassium Lvl 3.2 3.5-5.1 LO [place] mmol/L [facility] Chloride 104 98-109 [place] mmol/L [facility] CO2 21 17-33 [place] mmol/L [facility] AGAP 9 5-15 NO [facility] Calcium Lvl 8.1 8.3-10.2 LO [place] mg/dL [facility] Total Protein 7.7 6.0-8.3 NO [place] gm/dL [facility] Albumin Lvl 3.2 3.7-5.3 LO [place] gm/dL [facility] Glob 4.5 2.0-4.5 NO [place] gm/dL [facility] A/G Ratio 0.7 1.0-2.2 LO [place] ratio [facility] Bili Total 0.8 0.4-1.1 NO [place] mg/dL [facility] Alk Phos 91 IU/L 30-125 [facility] AST 13 IU/L 10-35 [facility] ALT 13 IU/L 8-40 [facility] ID Date Data Source [id number] 06/06/2019 08:43:00 AM EST [facility] Name Value Range Interpretation Description Data Sup porting Code Source(s) Document(s ) Neut Auto 74.4 % 40.0-70.0 [facility] Lymph Auto 16.3 % 22.0-44.0 [facility] Auto 8.5 % 4.0-11.0 [facility] Eos Auto 0.4 % 0.0-8.0 [facility] Baso Auto 0.4 % 0.0-3.0 [facility] Neut 7.6 1.8-7.7 NO [place] Absolute x10(3)/[facility] Lymph 1.7 1.0-4.8 NO [place] Absolute x10(3)/[facility] [place] 0.9 0.2-1.2 NO [place] Absolute x10(3)/[facility] Eos Absolute 0.0 0.0-0.9 NO [place] x10(3)/[facility] Baso 0.0 0.0-0.3 NO [place] Absolute x10(3)/[facility] ID Date Data Source [id number] 06/06/2019 08:43:00 AM [facility] Name Value Range Interpretation Description Data Sup porting Code Source(s) Document(s ) WBC 10.2 4.5-11.0 [facility] RBC 3.90 4.50-5.90 [facility] x10(6)/[facility] Hgb 9.6 gm/dL 13.5-17.5 [facility] Hct 30.6 % 41.0-53.0 [facility] MCV 78 fL 80-100 [facility] MCH 24.5 pg 26.0-34.0 [facility] MCHC 31.3 31.0-37.0 [facility] gm/dL [facility] RDW 14.8 % 11.5-14.5 [facility] Platelet 296 150-350 NO [facility] x10(3)/[facility] MPV 7.8 fL 7.4-10.4 [facility] ID Date Data Source [id number] 06/05/2019 08:46:00 PM [facility] UA Microscopic added by rubio Baron to an Abnormal Macroscopic Result. Name Value Range Interpretation Description Data Sup porting Code Source(s) Document(s ) UA WBC None Seen AB [facility] UA RBC None Seen AB [facility] UA Bacteria None Seen NO [facility] UA Hyal Cast None Seen AB [facility] UA Fine Gran None Seen [facility] ID Date Data Source [id number] 06/05/2019 08:39:00 PM EST [facility] Name Value Range Interpretation Description Data Sup porting Code Source(s) Document(s ) UA Color Yellow NO [facility] UA Appear Clear NO [facility] UA pH 5.0-8.0 [facility] UA Spec Grav 1.021 1.005-1.030 [facility] UA Glucose Negative [facility] UA Ketones Negative [facility] UA Urobilinogen 0.2-1.0 NO [facility] UA Bili Negative NO [facility] UA Blood Negative [facility] UA Protein Negative [facility] UA Nitrite Negative [facility] UA Leuk Est Negative NO [facility] ID Date Data Source [id number] 06/05/2019 08:39:00 PM EST [facility] Name Value Range Interpretation Description Data Sup porting Code Source(s) Document(s ) U Amph Not Detected [facility] Result created by Discern rule.Substance of abuse cutoff levels:Amphetamine...................... .....1000 mA/minBarbiturate....................... .....300 mA/minBenzodiazepine.................... .....200 mA/minCannibinoid....................... ......50 mA/minCocaine........................... .....300 mA/minOpiates........................... .....300 mA/minPhencyclidine (PCP).....................25 mA/minMetha done..............................300 mA/minPropoxypene....................... .....300 mA/minPlease note: This is a urine screening test only.Positive results are presumptive and are not confirmed by a secondary method. Unconfirmed screening results are to be used only for medical purposes. U Johanny Scr [facility] Detected [facility] Result created by Treasure Data rule. U Benzodia Scr Not Detected NO [facility] Result created by Treasure Data rule. U Cannab Scr Not Detected [facility] Result created by Discern rule. U Cocaine Scr Not Detected NO [facility] Result created by Treasure Data rule. U Opiate Scr Not Detected [facility] Result created by Treasure Data rule.This Opia te assay does NOT detect the semi-synthetic opioids Oxycontin, Oxycodone, Percodan, or Percocet. U Phencyclidine Not Detected NO v[facility] Result created by Treasure Data rule. U Propoxyphene Not Detected NA [facility] Result created by Discern rule. U Methadone Not Detected NO [facility] Result created by Discern rule. ID Date Data Source [id number] 06/06/2019 12:29:00 PM EST [facility] Name Value Range Interpretation Description Data Sup porting Code Source(s) Document(s ) Hemoglobin A1C 7.1 % <=5.6 [facility] 5.7-6.4% Pre-diabetes> 6.4% Diagno stic for diabetes(Summarized from [employer] 2018 Standards)This test was performed using the Cartavi Hb 9210 Analyzer utilizing [employer]. ID Date Data Source [id number] 06/05/2019 06:50:00 PM [facility] Added by Discern Rule GLB_ADD_GFR_BMP Name Value Range Interpretation Code Description Data Jackie rce(s) Supporting Document(s ) eGFR-AA 46 >=60 [facility] mL/min/1.[address] [place] [address] The CKD-EPI equation for non- Nini rican [...] Mild decrease* G3a 45-59 Mild to moderate niddspdmB0t 30-44 Moderate to s evere decreaseG4 15-29 Severe decreaseG5 14 or less Kidney fa ilure eGFR-MEG 38 mL/min/1.73m2 >=60 [facility] The CKD-EPI equation for non- Nini [...] Mild decrease* G3a 45-59 Mild to moderate [id number] 30-44 Moderate to s evere decreaseG4 15-29 Severe decreaseG5 14 or less Kidney fa ilure ID Date Data Source [id number] 06/05/2019 06:50:00 PM EST [facility] Name Value Range Interpretation Description Data Sup porting Code Source(s) Document(s ) Glucose Lvl 161 65-99 [place] mg/dL [facility] BUN 36.0 7.0-21.0 [place] mg/dL [facility] Creatinine 1.87 0.70-1.2 [place] mg/dL 0 [facility] BUN/Creat 19.3 7.0-29.0 NO [place] Ratio ratio [facility] Sodium Lvl 137 136-146 NO [place] mmol/L [facility] Potassium Lvl 3.5 3.5-5.1 NO [place] mmol/L [facility] Chloride 108 98-109 NO [place] mmol/L [facility] CO2 22 17-33 [place] mmol/L [facility] AGAP 7 5-15 [place] [facility] Calcium Lvl 8.2 8.3-10.2 LO [place] mg/dL [facility] ID Date Data Source [id number] 06/05/2019 03:11:00 PM EST [facility] Patient Name: KARSTEN GIBBS EMRN: [id number] UltrasoundACCESSION EXAM DATE/TIME PROCEDURE ORDERING PROVIDER [id number] 14:22 EST [facility] [place], Dequan Auth (Verified)Reason For E xam(US Kidneys) Renal FailureReportPROCEDURE: [...] Supporting Document(s ) ID Date Data Source [id number] 06/05/2019 08:20:00 AM [facility] Added by Discern Rule GLB_ADD_GFR_BMP Name Value Range Interpretation Code Description Data Jackie rce(s) Supporting Document(s ) eGFR-AA 40 >=60 [facility] mL/min/1.[address] [place] [address] The CKD-EPI equation for non- [facility] rican individuals is used to [...] Mild decrease* G3a 45-59 Mild to moderate [id number] 30-44 Moderate to s evere decreaseG4 15-29 Severe decreaseG5 14 or less Kidney fa ilure eGFR-MEG 33 mL/min/1.73m2 >=60 [facility] The CKD-EPI equation for non- Nini [...] Mild decrease* G3a 45-59 Mild to moderate hesvygepR0t 30-44 Moderate to s evere decreaseG4 15-29 Severe decreaseG5 14 or less Kidney fa ilure ID Date Data Source [id number] 06/05/2019 08:20:00 AM [facility] Name Value Range Interpretation Description Data Sup porting Code Source(s) Document(s ) Glucose Lvl 148 65-99 [place] mg/dL [facility] BUN 41.0 7.0-21.0 [place] mg/dL [facility] Creatinine 2.12 0.70-1.2 [place] mg/dL 0 [facility] BUN/Creat 19.3 7.0-29.0 NO [place] Ratio ratio [facility] Sodium Lvl 137 136-146 NO [place] mmol/L [facility] Potassium Lvl 3.6 3.5-5.1 NO [place] mmol/L [facility] Chloride 109 98-109 NO [place] mmol/L [facility] CO2 22 17-33 NO [place] mmol/L [facility] AGAP 6 5-15 NO [place] [facility] Calcium Lvl 8.0 8.3-10.2 LO [place] mg/dL [facility] ID Date Data Source [id number] 06/05/2019 08:08:00 AM [facility] Name Value Range Interpretation Description Data Sup porting Code Source(s) Document(s ) Neut Auto 74.8 % 40.0-70.0 [facility] Lymph Auto 14.2 % 22.0-44.0 [facility] Auto 10.5 % 4.0-11.0 NO [facility] Eos Auto 0.1 % 0.0-8.0 NO [facility] Baso Auto 0.4 % 0.0-3.0 NO [facility] Neut 8.1 1.8-7.7 [place] Absolute x10(3)/[facility] Lymph 1.5 1.0-4.8 NO [place] Absolute x10(3)/[facility] [place] 1.1 0.2-1.2 NO [place] Absolute x10(3)/[facility] Eos Absolute 0.0 0.0-0.9 NO [place] x10(3)/[facility] Baso 0.0 0.0-0.3 NO [place] Absolute x10(3)/[facility] ID Date Data Source [id number] 06/05/2019 08:08:00 AM EST [facility] Name Value Range Interpretation Description Data Sup porting Code Source(s) Document(s ) WBC 10.8 4.5-11.0 NO [place] x10(3)/[facility] RBC 3.40 4.50-5.90 [place] x10(6)/[facility] Hgb 8.5 gm/dL 13.5-17.5 [facility] Hct 26.3 % 41.0-53.0 [facility] MCV 77 fL 80-100 [facility] MCH 24.9 pg 26.0-34.0 [facility] MCHC 32.2 31.0-37.0 [place] gm/dL [facility] RDW 15.0 % 11.5-14.5 [facility] Platelet 262 150-350 [place] x10(3)/[facility] MPV 7.9 fL 7.4-10.4 [facility] ID Date Data Source [id number] 06/04/2019 10:04:00 PM [facility] Name Value Range Interpretation Code Description Data Jackie rce(s) Supporting Document(s ) D-Dimer 491 ng/ml 0-230 [facility] If the result is in the normal [...] may be present. ID Date Data Source [id number] 06/04/2019 10:03:00 PM [facility] Name Value Range Interpretation Description Data Sup porting Code Source(s) Document(s ) Lactic 1.0 0.9-2.0 NO [facility] Acid Lvl mmol/L [facility] ID Date Data Source [id number] 06/04/2019 09:57:00 PM [facility] Name Value Range Interpretation Code Description Data Jackie rce(s) Supporting Document(s ) INR 1.1 ratio 0.9-1.2 [facility] Indications INRProphylaxis of venous thromo-embolism: Non-hip surgery..... ..........................1.5 - 2.5 Hip surgery................................. ..2.0 - 3.0Deep Vein Thrombosis or Pulmonary Embolism........2.0 - 3.0Prevention of s ystemic embolism in valvular heart disease, tissue prosthetic heart valvesor acute IN.......................................2.0 - 3.5Prevention of embolism in mechanical heartvalves or recurrent systemic embolism.............3.0 - 4.5 PT 13.2 second(s) 9.5-12.5 [facility] ID Date Data Source [id number] 06/04/2019 09:28:00 PM [facility] Name Value Range Interpretation Code Description Data Jackie rce(s) Supporting Document(s ) BNP 202 pg/mL 1-99 [facility] ID Date Data Source [id number] 06/04/2019 09:24:00 PM [facility] Name Value Range Interpretation Description Data Sup porting Code Source(s) Document(s ) Troponin- 0.02 0.02-0.05 [facility] I ng/mL [facility] ID Date Data Source [id number] 06/04/2019 09:20:00 PM [facility] Name Value Range Interpretation Description Data Sup porting Code Source(s) Document(s ) Magnesium 2.5 mg/dL 1.6-2.5 [facility] ID Date Data Source [id number] 06/04/2019 09:20:00 PM [facility] Name Value Range Interpretation Code Description Data Jackie rce(s) Supporting Document(s ) Lipase Lvl 22 IU/L 10-59 [facility] ID Date Data Source [id number] 06/04/2019 09:20:00 PM [facility] Added by Discern Rule GLB_ADD_GFR_CMP Name Value Range Interpretation Code Description Data Jackie rce(s) Supporting Document(s ) eGFR-AA 42 >=60 [facility] mL/min/1.[address] [place] [address] The CKD-EPI equation for non- Nini rican [...] Mild decrease* G3a 45-59 Mild to moderate [id number] 30-44 Moderate to s evere decreaseG4 15-29 Severe decreaseG5 14 or less Kidney fa ilure eGFR-MEG 35 mL/min/1.73m2 >=60 LO [facility] The CKD-EPI equation for [...] Mild decrease* G3a 45-59 Mild to moderate fmytrzqjS7l 30-44 Moderate to s evere decreaseG4 15-29 Severe decreaseG5 14 or less [facility] ID Date Data Source [id number] 06/04/2019 09:20:00 PM EST [facility] Name Value Range Interpretation Description Data Sup porting Code Source(s) Document(s ) Glucose Lvl 171 65-99 [place] mg/dL [facility] BUN 39.0 7.0-21.0 [place] mg/dL [facility] Creatinine 2.02 0.70-1.2 [place] mg/dL 0 [facility] BUN/Creat 19.3 7.0-29.0 [place] Ratio ratio [facility] Sodium Lvl 136 136-146 [place] mmol/L [facility] Potassium Lvl 4.0 3.5-5.1 [place] mmol/L [facility] Chloride 103 98-109 [place] mmol/L [facility] CO2 22 17-33 [place] mmol/L [facility] AGAP 11 5-15 NO [facility] Calcium Lvl 8.7 8.3-10.2 [place] mg/dL [facility] Total Protein 8.6 6.0-8.3 [place] gm/dL [facility] Albumin Lvl 3.6 3.7-5.3 [place] gm/dL [facility] Glob 5.0 2.0-4.5 [place] gm/dL [facility] A/G Ratio 0.7 1.0-2.2 LO [facility] ratio [facility] Bili Total 0.9 0.4-1.1 [place] mg/dL [facility] Alk Phos 101 IU/L 30-125 NO [facility] AST 18 IU/L 10-35 [facility] ALT 16 IU/L 8-40 [facility] ID Date Data Source [id number] 06/04/2019 09:20:00 PM EST [facility] Name Value Range Interpretation Description Data Sup porting Code Source(s) Document(s ) Amylase Lvl 40 IU/L 26-121 NO [facility] ID Date Data Source [id number] 06/04/2019 09:07:00 PM EST [facility] Name Value Range Interpretation Description Data Sup porting Code Source(s) Document(s ) Neut Auto 86.9 % 40.0-70.0 [facility] Lymph Auto 7.6 % 22.0-44.0 [facility] Auto 5.1 % 4.0-11.0 [facility] Eos Auto 0.0 % 0.0-8.0 NO [facility] Baso Auto 0.4 % 0.0-3.0 NO [facility] Neut 12.5 1.8-7.7 [place] Absolute x10(3)/[facility] Lymph 1.1 1.0-4.8 NO [place] Absolute x10(3)/[facility] [place] 0.7 0.2-1.2 NO [place] Absolute x10(3)/[facility] Eos Absolute 0.0 0.0-0.9 [place] x10(3)/[facility] Baso 0.1 0.0-0.3 NO [place] Absolute x10(3)/[facility] ID Date Data Source [id number] 06/04/2019 09:07:00 PM EST [facility] Name Value Range Interpretation Description Data Sup porting Code Source(s) Document(s ) WBC 14.4 4.5-11.0 [place] x10(3)/[facility] RBC 4.18 4.50-5.90 [place] x10(6)/[facility] Hgb 10.3 13.5-17.5 [place] gm/dL [facility] Hct 32.6 % 41.0-53.0 [facility] MCV 78 fL 80-100 [facility] MCH 24.6 pg 26.0-34.0 [facility] MCHC 31.6 31.0-37.0 [place] gm/dL [facility] RDW 15.4 % 11.5-14.5 [facility] Platelet 303 150-350 [place] x10(3)/[facility] MPV 8.2 fL 7.4-10.4 [facility] ID Date Data Source [id number] 06/04/2019 09:01:00 PM [facility] Name Value Range Interpretation Description Data Sup porting Code Source(s) Document(s ) Influenza A Negative [facility] Test Methodology is Immunochromatographi c [...] culture is indicated. Influenza B Ag Negative NO [facility] Test Methodology is Immunochromatographi c test for [...] is indicated. Influenza A/B Ag Source NA [facility] GLB_FLU_AB_AG_SPEC_POST ID Date Data Source [id number] 06/04/2019 08:14:00 PM [facility] Patient Name: KARSTEN GIBBS EMRN: [id number] General DiagnosticACCESSION EXAM DATE/TIME PROCEDURE ORDERING PROVIDER [id number] 06/04/2019 20:08 EST XR Chest Portable [place] [...] in the evaluation of this patient. Fin georgina Dictated: Luca CLINTON, Nacho Salgado 06/04/19 20:13Signed: Ivan Segovia MD 06/04/19 20:14Transcribed by: REFUGIO Name Value Range Interpretation Code Description Data Jackie rce(s) Supporting Document(s ) ID Date Data Source [id number] 06/04/2019 05:12:00 PM [facility] [employer] 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:LUCY RUIZ Name Value Range Interpretation Description Data Sup porting Code Source(s) Document(s ) Glucose 144 mg/dL [facility] [Mass/volume] Hospital in Capillary blood by Glucometer ID Date Data Source [id number] 02/11/2019 07:45:00 AM [facility] [employer] 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:YULY ORTEGA Name Value Range Interpretation Description Data Sup porting Code Source(s) Document(s ) Glucose 205 mg/dL [facility] [Mass/volume] Hospital in Capillary blood by Glucometer ID Date Data Source [id number] 02/10/2019 11:26:00 AM [facility] Name Value Range Interpretation Description Data Sup porting Code Source(s) Document(s ) GLUCOSE RN Notified [facility] ID Date Data Source [id number] 02/10/2019 05:29:00 AM [facility] ADA RECOMMENDATIONS: NON-DIABETES: 4.0-6.0% CONTROLLED DIABETES: 6.0-8.0% UNCONTROLLED DIABETE S: UP TO 20%RECOMMENDED ADA RESULT FOR THERAPY: HEMOGLOBIN A1C RESULT LESS FRANK N 7%.NOTE: METHOD CHANGE EFFECTIVE 11/06/14. Name Value Range Interpretation Description Data Sup porting Code Source(s) Document(s ) Hemoglobin 7.0 % [facility] A1c/Hemoglobin. Hospital total in Blood ID Date Data Source [id number] 02/10/2019 05:29:00 AM [facility] Name Value Range Interpretation Description Data Sup porting Code Source(s) Document(s ) Calcium 8.3 mg/dL [facility] [[facility] ] in Serum or Plasma ID Date Data Source [id number] 02/10/2019 05:29:00 AM [facility] UNITS ARE IN ml/min/1.73m2.IF PATIENT IS -[place], MULTIPLY REPORTED RESULT BY 1.21. Name Value Range Interpretation Description Data Sup porting Code Source(s) Document(s ) Glomerular > 60 [facility] filtration mL/min Hospital rate/1.73 sq M.predicted [Volume Rate/Area] in Serum or Plasma by Creatinine-bas ed formula (MDRD) ID Date Data Source [id number] 02/10/2019 05:29:00 AM [facility] Name Value Range Interpretation Code Description Data Jackie rce(s) Supporting Document(s ) Urea 15.0 [facility] nitrogen/Cre Hospital atinine [Mass Ratio] in Serum or Plasma ID Date Data Source [id number] 02/10/2019 05:29:00 AM [facility] Name Value Range Interpretation Description Data Sup porting Code Source(s) Document(s ) Creatinine 1.2 mg/dL [facility] [Mass/volume] Hospital in Serum or Plasma ID Date Data Source [id number] 02/10/2019 05:29:00 AM [facility] THIS RESULT HAS BEEN VERIFIED. Name Value Range Interpretation Description Data Sup porting Code Source(s) Document(s ) Urea 18 mg/dL [facility] nitrogen Hospital [Mass/volume ] in Serum or Plasma ID Date Data Source [id number] 02/10/2019 05:29:00 AM [facility] Name Value Range Interpretation Code Description Data Jackie rce(s) Supporting Document(s ) Anion gap in 9 [facility] Serum or [facility] Plasma ID Date Data Source [id number] 02/10/2019 05:29:00 AM [facility] Name Value Range Interpretation Description Data Sup porting Code Source(s) Document(s ) Carbon 24 mmol/L [facility] dioxide, Hospital total [Moles/volu me] in Serum or Plasma ID Date Data Source [id number] 02/10/2019 05:29:00 AM EST [facility] Name Value Range Interpretation Description Data Sup porting Code Source(s) Document(s ) Chloride 105 [facility] [Moles/volum mmol/L Hospital e] in Serum or Plasma ID Date Data Source [id number] 02/10/2019 05:29:00 AM EST [facility] Name Value Range Interpretation Description Data Sup porting Code Source(s) Document(s ) Potassium 4.4 [facility] [Moles/volume mmol/L Hospital ] in Serum or Plasma ID Date Data Source [id number] 02/10/2019 05:29:00 AM EST [facility] Name Value Range Interpretation Description Data Sup porting Code Source(s) Document(s ) Sodium 134 mmol/L [facility] [Moles/volu Hospital me] in Serum or Plasma ID Date Data Source [id number] 02/10/2019 05:29:00 AM EST [facility] Name Value Range Interpretation Description Data Sup porting Code Source(s) Document(s ) Glucose 142 mg/dL [facility] [Mass/volume Hospital ] in Serum or Plasma ID Date Data Source [id number] 02/10/2019 05:29:00 AM EST [facility] Name Value Range Interpretation Code Description Data Supporting Source(s) Document(s ) NUCLEATED RBCS 0.0 % [facility] (AUTO Hospital DIFF%)DIS ID Date Data Source [id number] 02/10/2019 05:29:00 AM EST [facility] Name Value Range Interpretation Description Data Sup porting Code Source(s) Document(s ) Differential AUTOMATED [facility] cell count Hospital method - Blood ID Date Data Source [id number] 02/10/2019 05:29:00 AM [facility] Name Value Range Interpretation Description Data Sup porting Code Source(s) Document(s ) Immature 0.02 [facility] granulocytes 10*3/uL Hospital [#/volume] in Blood by Automated count ID Date Data Source [id number] 02/10/2019 05:29:00 AM [facility] Name Value Range Interpretation Description Data Sup porting Code Source(s) Document(s ) Basophils 0.03 [facility] [#/volume] in 10*3/uL Hospital Blood by Automated count ID Date Data Source [id number] 02/10/2019 05:29:00 AM [facility] Value Range Interpretation Description Data Sup porting Code Source(s) Document(s ) Eosinophils 0.35 [facility] [#/volume] in 10*3/uL Hospital Blood by Automated count ID Date Data Source [id number] 02/10/2019 05:29:00 AM [facility] Name Value Range Interpretation Description Data Sup porting Code Source(s) Document(s ) Monocytes 1.10 [facility] [#/volume] in 10*3/uL Hospital Blood by Automated count ID Date Data Source [id number] 02/10/2019 05:29:00 AM [facility] Name Value Range Interpretation Description Data Sup porting Code Source(s) Document(s ) Lymphocytes 3.02 [facility] [#/volume] in 10*3/uL Hospital Blood by Automated count ID Date Data Source [id number] 02/10/2019 05:29:00 AM [facility] Name Value Range Interpretation Description Data Sup porting Code Source(s) Document(s ) Neutrophils 3.80 [facility] [#/volume] in 10*3/uL Hospital Blood by Automated count ID Date Data Source [id number] 02/10/2019 05:29:00 AM EST [facility] Name Value Range Interpretation Description Data Sup porting Code Source(s) Document(s ) Nucleated 0.0 % [facility] erythrocytes/10 Hospital 0 leukocytes [Ratio] in Blood by Automated count ID Date Data Source [id number] 02/10/2019 05:29:00 AM EST [facility] Name Value Range Interpretation Description Data Sup porting Code Source(s) Document(s ) Immature 0.2 % [facility] granulocytes/10 Hospital 0 leukocytes in Blood by Automated count ID Date Data Source [id number] 02/10/2019 05:29:00 AM [facility] Value Range Interpretation Description Data Sup porting Code Source(s) Document(s ) Basophils/100 0.4 % [facility] leukocytes in Hospital Blood by Automated count ID Date Data Source [id number] 02/10/2019 05:29:00 AM EST [facility] Name Value Range Interpretation Description Data Sup porting Code Source(s) Document(s ) Eosinophils/100 4.2 % [facility] leukocytes in Hospital Blood by Automated count ID Date Data Source [id number] 02/10/2019 05:29:00 AM EST [facility] Name Value Range Interpretation Description Data Sup porting Code Source(s) Document(s ) Monocytes/100 13.2 % [facility] leukocytes in Hospital Blood by Automated count ID Date Data Source [id number] 02/10/2019 05:29:00 AM [facility] Name Value Range Interpretation Description Data Sup porting Code Source(s) Document(s ) Lymphocytes/10 36.3 % [facility] 0 leukocytes Hospital in Blood by Automated count ID Date Data Source [id number] 02/10/2019 05:29:00 AM EST [facility] Name Value Range Interpretation Description Data Sup porting Code Source(s) Document(s ) Neutrophils/10 45.7 % [facility] 0 leukocytes Hospital in Blood by Automated count ID Date Data Source [id number] 02/10/2019 05:29:00 AM [facility] Name Value Range Interpretation Description Data Sup porting Code Source(s) Document(s ) Platelet mean 11.7 fL [facility] volume Hospital [Entitic volume] in Blood by Automated count ID Date Data Source [id number] 02/10/2019 05:29:00 AM [facility] Value Range Interpretation Description Data Sup porting Code Source(s) Document(s ) Platelets 196 [facility] [#/volume] in 10*3/uL Hospital Blood by Automated count ID Date Data Source [id number] 02/10/2019 05:29:00 AM [facility] Value Range Interpretation Description Data Sup porting Code Source(s) Document(s ) Erythrocyte 17.0 % [facility] Hospital width [Ratio] by Automated count ID Date Data Source [id number] 02/10/2019 05:29:00 AM [facility] Value Range Interpretation Description Data Sup porting Code Source(s) Document(s ) Erythrocyte mean 32.1 [facility] corpuscular g/dL Hospital hemoglobin concentration [Mass/volume] by Automated count ID Date Data Source [id number] 02/10/2019 05:29:00 AM [facility] Name Value Range Interpretation Description Data Sup porting Code Source(s) Document(s ) Erythrocyte 25.0 pg [facility] mean Hospital corpuscular hemoglobin [Entitic mass] by Automated count ID Date Data Source [id number] 02/10/2019 05:29:00 AM [facility] Value Range Interpretation Description Data Sup porting Code Source(s) Document(s ) Erythrocyte 77.9 fL [facility] mean Hospital corpuscular volume [Entitic volume] by Automated count ID Date Data Source [id number] 02/10/2019 05:29:00 AM [facility] Value Range Interpretation Description Data Sup porting Code Source(s) Document(s ) Hematocrit 26.5 % [facility] [Volume Hospital Fraction] of Blood by Automated count ID Date Data Source [id number] 02/10/2019 05:29:00 AM [facility] Value Range Interpretation Description Data Sup porting Code Source(s) Document(s ) Hemoglobin 8.5 g/dL [facility] [Mass/volume] Hospital in Blood ID Date Data Source [id number] 02/10/2019 05:29:00 AM [facility] Value Range Interpretation Description Data Sup porting Code Source(s) Document(s ) Erythrocytes 3.40 [facility] [#/volume] in 10*6/uL Hospital Blood by Automated count ID Date Data Source [id number] 02/10/2019 05:29:00 AM [facility] Value Range Interpretation Description Data Sup porting Code Source(s) Document(s ) Leukocytes 8.3 [facility] [#/volume] in 10*3/uL Hospital Blood by Automated count ID Date Data Source [id number] 02/06/2019 08:21:00 AM EDT [facility] Value Range Interpretation Description Data Sup porting Code Source(s) Document(s ) Aspartate 11 U/L White aminotransferase [place] [Enzymatic Hospital activity/volume] in Serum or Plasma ID Date Data Source [id number] 02/06/2019 08:21:00 AM EDT [facility] Value Range Interpretation Description Data Sup porting Code Source(s) Document(s ) Alanine 12 U/L [facility] aminotransferase [place] [Enzymatic Hospital activity/volume] in Serum or Plasma ID Date Data Source [id number] 02/06/2019 08:21:00 AM EDT [facility] Name Value Range Interpretation Description Data Sup porting Code Source(s) Document(s ) Alkaline 104 U/L [facility] phosphatase Hospital [Enzymatic activity/volume ] in Serum or Plasma ID Date Data Source [id number] 02/06/2019 08:21:00 AM EDT [facility] Name Value Range Interpretation Description Data Sup porting Code Source(s) Document(s ) Bilirubin.d 0.2 mg/dL [facility] [Mass/volum e] in Serum or Plasma ID Date Data Source [id number] [facility] Interpretation Description Data Sup porting Code Source(s) Document(s ) Bilirubin.t 0.5 mg/dL [facility] [Mass/volum e] in Serum or Plasma ID Date Data Source [id number] 02/06/2019 08:21:00 AM [facility] Value Range Interpretation Code Description Data Jackie rce(s) Supporting Document(s ) Albumin/Glob 1.1 [facility] ulin [Mass Hospital Ratio] in Serum or Plasma ID Date Data Source [id number] 02/06/2019 08:21:00 AM EDT [facility] Name Value Range Interpretation Description Data Sup porting Code Source(s) Document(s ) Albumin 3.0 g/dL [facility] [Mass/volume Hospital ] in Serum or Plasma ID Date Data Source [id number] 02/06/2019 [facility] Range Interpretation Description Data Sup porting Code Source(s) Document(s ) Protein 5.7 g/dL [facility] [Mass/volume Hospital ] in Serum or Plasma ID Date Data Source [id number] 02/03/2019 07:31:00 AM EDT [facility] Name Value Range Interpretation Description Data Sup porting Code Source(s) Document(s ) URINE OCCASIONAL [facility] EPITHELIAL [facility] CELLS ID Date Data Source [id number] 02/03/2019 07:31:00 AM EDT [facility] Name Value Range Interpretation Description Data Sup porting Code Source(s) Document(s ) Erythrocytes 10-20 [facility] [#/area] in /[HPF] Hospital Urine sediment by Automated count ID Date Data Source [id number] 02/03/2019 07:31:00 AM EDT [facility] Name Value Range Interpretation Description Data Sup porting Code Source(s) Document(s ) Leukocytes 3-5 [facility] [#/area] in /[HPF] Hospital Urine sediment by Automated count ID Date Data Source [id number] 02/03/2019 [facility] Value Range Interpretation Description Data Sup porting Code Source(s) Document(s ) Leukocyte NEGATIVE [facility] [Presence] in Urine by Test strip ID Date Data Source [id number] 02/03/2019 07:31:00 AM EDT [facility] Name Value Range Interpretation Description Data Sup porting Code Source(s) Document(s ) URINE NEGATIVE [facility] Hospital ID Date Data Source [id number] 02/03/2019 07:31:00 AM EDT [facility] Name Value Range Interpretation Description Data Sup porting Code Source(s) Document(s ) Erythrocytes TRACE [facility] [#/volume] in Hospital Urine by Test strip ID Date Data Source [id number] 02/03/2019 07:31:00 AM EDT [facility] Name Value Range Interpretation Code Description Data Jackie rce(s) Supporting Document(s ) Bilirubin. NEGATIVE [facility] total Hospital [Presence] in Urine by Test strip ID Date Data Source [id number] 02/03/2019 07:31:00 AM EDT [facility] Name Value Range Interpretation Description Data Sup porting Code Source(s) Document(s ) Urobilinogen 0.2 [facility] [Units/volume] mg/dL Hospital in Urine by Test strip ID Date Data Source [id number] 02/03/2019 07:31:00 AM EDT [facility] Value Range Interpretation Code Description Data Jackie rce(s) Supporting Document(s ) Ketones TRACE [facility] [Mass/volume Hospital ] in Urine by Test strip ID Date Data Source [id number] 02/03/2019 07:31:00 AM EDT [facility] Value Range Interpretation Code Description Data Jackie rce(s) Supporting Document(s ) Glucose 1+ [facility] [Mass/volume Hospital ] in Urine by Test strip ID Date Data Source [id number] 02/03/2019 07:31:00 AM EDT [facility] Value Range Interpretation Code Description Data Jackie rce(s) Supporting Document(s ) Protein 4+ [facility] [Presence] Hospital in Urine by Test strip ID Date Data Source [id number] 02/03/2019 07:31:00 AM EDT [facility] Value Range Interpretation Code Description Data Jackie rce(s) Supporting Document(s ) pH of Urine 6.5 [facility] by Test Hospital strip ID Date Data Source [id number] [facility] Code Description Data Supporting Source(s) Document(s ) Specific 1.022 [facility] gravity of Hospital Urine by Test strip ID Date Data Source [id number] 02/03/2019 07:31:00 AM [facility] Name Value Range Interpretation Description Data Sup porting Code Source(s) Document(s ) Clarity in Urine CLEAR [facility] by Refractometry Hospital automated ID Date Data Source [id number] 02/03/2019 07:31:00 AM [facility] Name Value Range Interpretation Code Description Data Jackie rce(s) Supporting Document(s ) Color of YELLOW [facility] Urine Hospital ID Date Data Source [id number] 01/29/2019 07:20:00 PM [facility] TEST PERFORMED BY [employer] UL[employer] SENSIT[employer] [facility] CHEMILUMINESCENCE METHOD. Name Value Range Interpretation Description Data Sup porting Code Source(s) Document(s ) Troponin < 0.01 [facility] I.cardiac ng/mL Hospital [Mass/volume ] in Serum or Plasma ID Date Data Source [id number] 01/29/2019 07:20:00 PM [facility] Name Value Range Interpretation Code Description Data Jackie rce(s) Supporting Document(s ) Lipase 25 U/L [facility] [Enzymatic Hospital activity/vo lume] in Serum or Plasma ID Date Data Source [id number] 01/20/2019 08:52:00 AM [facility] 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:MAKSIM JOHN Name Value Range Interpretation Description Data Sup porting Code Source(s) Document(s ) Glucose 104 mg/dL [facility] [Mass/volume] Hospital in Capillary blood by Glucometer ID Date Data Source [id number] 01/15/2019 08:42:00 AM [facility] Name Value Range Interpretation Description Data Sup porting Code Source(s) Document(s ) Platelet mean 9.5 fL [facility] volume Hospital [Entitic volume] in Blood by Automated count ID Date Data Source [id number] 01/15/2019 08:42:00 AM EDT [facility] Value Range Interpretation Description Data Sup porting Code Source(s) Document(s ) Platelets 386 [facility] [#/volume] in 10*3/uL Hospital Blood by Automated count ID Date Data Source [id number] 01/15/2019 08:42:00 AM EDT [facility] Value Range Interpretation Description Data Sup porting Code Source(s) Document(s ) Erythrocyte 18.7 % [facility] distribution Hospital width [Ratio] by Automated count ID Date Data Source [id number] 01/15/2019 08:42:00 AM EDT [facility] Value Range Interpretation Description Data Sup porting Code Source(s) Document(s ) Erythrocyte mean 32.7 [facility] corpuscular g/dL Hospital hemoglobin concentration [Mass/volume] by Automated count ID Date Data Source [id number] 01/15/2019 08:42:00 AM EDT [facility] Value Range Interpretation Description Data Sup porting Code Source(s) Document(s ) Erythrocyte 24.8 pg [facility] corpuscular hemoglobin [Entitic mass] by Automated count ID Date Data Source [id number] 01/15/2019 08:42:00 AM EDT [facility] Value Range Interpretation Description Data Sup porting Code Source(s) Document(s ) Erythrocyte 76.1 fL [facility] corpuscular volume [Entitic volume] by Automated count ID Date Data Source [id number] 01/15/2019 08:42:00 AM EDT [facility] Value Range Interpretation Description Data Sup porting Code Source(s) Document(s ) Hematocrit 24.5 % [facility] [Volume Hospital Fraction] of Blood by Automated count ID Date Data Source [id number] 01/15/2019 08:42:00 AM EDT [facility] Name Value Range Interpretation Description Data Sup porting Code Source(s) Document(s ) Hemoglobin 8.0 g/dL [facility] [Mass/volume] Hospital in Blood ID Date Data Source [id number] 01/15/2019 08:42:00 AM EDT [facility] Name Value Range Interpretation Description Data Sup porting Code Source(s) Document(s ) Erythrocytes 3.22 [facility] [#/volume] in 10*6/uL Hospital Blood by Automated count ID Date Data Source [id number] 01/15/2019 08:42:00 AM EDT [facility] Name Value Range Interpretation Description Data Sup porting Code Source(s) Document(s ) Leukocytes 6.6 [facility] [#/volume] in 10*3/uL Hospital Blood by Automated count ID Date Data Source [id number] 01/15/2019 07:42:00 AM EDT [facility] Name Value Range Interpretation Description Data Sup porting Code Source(s) Document(s ) Calcium 8.5 mg/dL [facility] [Mass/volume Hospital ] in Serum or Plasma ID Date Data Source [id number] 01/15/2019 07:42:00 AM EDT [facility] Name Value Range Interpretation Code Description Data Jackie rce(s) Supporting Document(s ) Urea 13.6 [facility] nitrogen/Cre Hospital atinine [Mass Ratio] in Serum or Plasma ID Date Data Source [id number] 01/15/2019 07:42:00 AM EDT [facility] Name Value Range Interpretation Description Data Sup porting Code Source(s) Document(s ) Creatinine 1.1 mg/dL [facility] [Mass/volume] Hospital in Serum or Plasma ID Date Data Source [id number] 01/15/2019 07:42:00 AM EDT [facility] Name Value Range Interpretation Description Data Sup porting Code Source(s) Document(s ) Urea 15 mg/dL [facility] nitrogen Hospital [Mass/volume ] in Serum or Plasma ID Date Data Source [id number] 01/15/2019 07:42:00 AM EDT [facility] Name Value Range Interpretation Code Description Data Jackie rce(s) Supporting Document(s ) Anion gap in 10 [facility] Serum or Hospital Plasma ID Date Data Source [id number] 01/15/2019 07:42:00 AM EDT [facility] Name Value Range Interpretation Description Data Sup porting Code Source(s) Document(s ) Carbon 28 mmol/L [facility] dioxide, Hospital total [Moles/volu me] in Serum or Plasma ID Date Data Source [id number] 01/15/2019 07:42:00 AM EDT [facility] Name Value Range Interpretation Description Data Sup porting Code Source(s) Document(s ) Chloride 102 [facility] [Moles/volum mmol/L Hospital e] in Serum or Plasma ID Date Data Source [id number] 01/15/2019 07:42:00 AM EDT [facility] Name Value Range Interpretation Description Data Sup porting Code Source(s) Document(s ) Potassium 3.9 [facility] [Moles/volume mmol/L Hospital ] in Serum or Plasma ID Date Data Source [id number] 01/15/2019 07:42:00 AM EDT [facility] Name Value Range Interpretation Description Data Sup porting Code Source(s) Document(s ) Sodium 136 mmol/L [facility] [Moles/volu Hospital me] in Serum or Plasma ID Date Data Source [id number] 01/15/2019 07:42:00 AM [facility] Name Value Range Interpretation Description Data Sup porting Code Source(s) Document(s ) Glucose 124 mg/dL [facility] [Mass/volume Hospital ] in Serum or Plasma ID Date Data Source [id number] 01/15/2019 02:08:00 AM [facility] NOTE: NEW REFERENCE RANGE, EFFECTIVE . Name Value Range Interpretation Description Data Sup porting Code Source(s) Document(s ) Vancomycin 12.8 [facility] [Mass/volume] ug/mL Hospital in Serum or Plasma --trough ID Date Data Source [id number] 01/15/2019 02:08:00 AM [facility] NOTE: NEW REFERENCE RANGE, EFFECTIVE . Name Value Range Interpretation Description Data Sup porting Code Source(s) Document(s ) Vancomycin 12.8 [facility] [Mass/volume] ug/mL Hospital in Serum or Plasma --trough ID Date Data Source [id number] 01/11/2019 10:40:00 AM [facility] Name Value Range Interpretation Description Data Sup porting Code Source(s) Document(s ) MEAN 80.2 fL [facility] VOLUME ID Date Data Source [id number] 01/11/2019 10:40:00 AM [facility] Name Value Range Interpretation Description Data Sup porting Code Source(s) Document(s ) MEAN 80.2 fL [facility] VOLUME ID Date Data Source [id number] 01/10/2019 07:19:00 AM [facility] Name Value Range Interpretation Description Data Sup porting Code Source(s) Document(s ) Aspartate 13 U/L White aminotransferase [place] [Enzymatic Hospital activity/volume] in Serum or Plasma ID Date Data Source [id number] 01/10/2019 07:19:00 AM EDT [facility] Name Value Range Interpretation Description Data Sup porting Code Source(s) Document(s ) Alanine 16 U/L [place] aminotransferase [place] [Enzymatic Hospital activity/volume] in Serum or Plasma ID Date Data Source [id number] 01/10/2019 07:19:00 AM EDT [facility] Name Value Range Interpretation Description Data Sup porting Code Source(s) Document(s ) Alkaline 142 U/L [facility] phosphatase Hospital [Enzymatic activity/volume ] in Serum or Plasma ID Date Data Source [id number] 01/10/2019 07:19:00 AM EDT [facility] Name Value Range Interpretation Description Data Sup porting Code Source(s) Document(s ) Bilirubin.t 0.3 mg/dL [facility] [Mass/volum e] in Serum or Plasma ID Date Data Source [id number] [facility] Interpretation Code Description Data Jackie rce(s) Supporting Document(s ) Albumin/Glob 0.9 [facility] [Mass Hospital Ratio] in Serum or Plasma ID Date Data Source [id number] 01/10/2019 [facility] Name Value Range Interpretation Description Data Sup porting Code Source(s) Document(s ) Albumin 3.3 g/dL [facility] [Mass/volume Hospital ] in Serum or Plasma ID Date Data Source [id number] [facility] Interpret[facility] Description Data Sup porting Code Source(s) Document(s ) Protein 6.9 g/dL [facility] [[facility] ] in Serum or Plasma ID Date Data Source [id number] 01/10/2019 07:19:00 AM EDT [facility] Name Value Range Interpretation Code Description Data Supporting Source(s) Document(s ) NUCLEATED RBCS 0.0 % [facility] (AUTO Hospital DIFF%)DIS ID Date Data Source [id number] 01/10/2019 07:19:00 AM EDT [facility] Name Value Range Interpretation Description Data Sup porting Code Source(s) Document(s ) Differential AUTOMATED [facility] cell count [facility] method - Blood ID Date Data Source [id number] [facility] Interpretation Description Data Sup porting Code Source(s) Document(s ) Immature 0.02 [facility] granulocytes 10*3/uL Hospital [#/volume] in Blood by Automated count ID Date Data Source [id number] 01/10/2019 07:19:00 AM EDT [facility] Name Value Range Interpretation Description Data Sup porting Code Source(s) Document(s ) Basophils 0.03 [facility] [#/volume] in 10*3/uL Hospital Blood by Automated count ID Date Data Source [id number] [facility] Interpretation Description Data Sup porting Code Source(s) Document(s ) Eosinophils 0.20 [facility] [#/volume] in 10*3/uL Hospital Blood by Automated count ID Date Data Source [id number] 01/10/2019 07:19:00 AM EDT [facility] Name Value Range Interpretation Description Data Sup porting Code Source(s) Document(s ) Monocytes 1.19 [facility] [#/volume] in 10*3/uL Hospital Blood by Automated count ID Date Data Source [id number] 01/10/2019 07:19:00 AM EDT [facility] Name Value Range Interpretation Description Data Sup porting Code Source(s) Document(s ) Lymphocytes 2.21 [facility] [#/volume] in 10*3/uL Hospital Blood by Automated count ID Date Data Source [id number] 01/10/2019 07:19:00 AM EDT [facility] Value Range Interpretation Description Data Sup porting Code Source(s) Document(s ) Neutrophils 5.70 [facility] [#/volume] in 10*3/uL Hospital Blood by Automated count ID Date Data Source [id number] 01/10/2019 07:19:00 AM EDT [facility] Value Range Interpretation Description Data Sup porting Code Source(s) Document(s ) Nucleated 0.0 % [facility] erythrocytes/10 Hospital 0 leukocytes [Ratio] in Blood by Automated count ID Date Data Source [id number] 01/10/2019 07:19:00 AM EDT [facility] Value Range Interpretation Description Data Sup porting Code Source(s) Document(s ) Immature 0.2 % [facility] granulocytes/10 Hospital 0 leukocytes in Blood by Automated count ID Date Data Source [id number] 01/10/2019 07:19:00 AM EDT [facility] Value Range Interpretation Description Data Sup porting Code Source(s) Document(s ) Basophils/100 0.3 % [facility] leukocytes in Hospital Blood by Automated count ID Date Data Source [id number] 01/10/2019 07:19:00 AM EDT [facility] Value Range Interpretation Description Data Sup porting Code Source(s) Document(s ) Eosinophils/100 2.1 % [facility] leukocytes in Hospital Blood by Automated count ID Date Data Source [id number] 01/10/2019 07:19:00 AM EDT [facility] Value Range Interpretation Description Data Sup porting Code Source(s) Document(s ) Monocytes/100 12.7 % [facility] leukocytes in Hospital Blood by Automated count ID Date Data Source [id number] 01/10/2019 07:19:00 AM EDT [facility] Name Value Range Interpretation Description Data Sup porting Code Source(s) Document(s ) Lymphocytes/10 23.6 % [facility] 0 leukocytes Hospital in Blood by Automated count ID Date Data Source [id number] 01/10/2019 07:19:00 AM EDT [facility] Name Value Range Interpretation Description Data Sup porting Code Source(s) Document(s ) Neutrophils/10 61.1 % [facility] 0 leukocytes Hospital in Blood by Automated count ID Date Data Source [id number] 01/08/2019 12:12:00 PM EDT [facility] Name Value Range Interpretation Description Data Sup porting Code Source(s) Document(s ) GLUCOSE RN Notified [facility] COMMENT Hospital ID Date Data Source [id number] 01/08/2019 11:19:00 AM EDT [facility] Name Value Range Interpretation Description Data Sup porting Code Source(s) Document(s ) Bacteria No growth [facility] identified in Hospital Blood by Culture ID Date Data Source [id number] 01/08/2019 11:19:00 AM EDT [facility] Name Value Range Interpretation Description Data Sup porting Code Source(s) Document(s ) Bacteria No growth [facility] identified in Hospital Blood by Culture ID Date Data Source [id number] 12/31/2018 07:57:00 PM EDT [facility] Name Value Range Interpretation Description Data Sup porting Code Source(s) Document(s ) GLUCOSE To Be [facility] COMMENT2 Repeated Hospital ID Date Data Source [id number] 12/31/2018 07:57:00 PM [facility] Name Value Range Interpretation Description Data Sup porting Code Source(s) Document(s ) GLUCOSE To Be [facility] COMMENT2 Repeated Hospital ID Date Data Source [id number] 12/30/2018 05:59:00 AM [facility] Value Range Interpretation Description Data Sup porting Code Source(s) Document(s ) Gamma glutamyl 80 U/L [facility] [Enzymatic activity/volume ] in Serum or Plasma ID Date Data Source [id number] 12/30/2018 05:59:00 AM [facility] Name Value Range Interpretation Description Data Sup porting Code Source(s) Document(s ) Gamma glutamyl 80 U/L [facility] [Enzymatic activity/volume ] in Serum or Plasma ID Date Data Source [id number] 12/29/2018 02:45:00 AM [facility] Name Value Range Interpretation Description Data Sup porting Code Source(s) Document(s ) Lactate 1.1 [facility] [Moles/volum mmol/L Hospital e] in Serum or Plasma ID Date Data Source [id number] 12/29/2018 02:45:00 AM [facility] Name Value Range Interpretation Description Data Sup porting Code Source(s) Document(s ) Lactate 1.1 [facility] [Moles/volum mmol/L Hospital e] in Serum or Plasma ID Date Data Source [id number] 12/28/2018 10:45:00 PM [facility] Name Value Range Interpretation Description Data Sup porting Code Source(s) Document(s ) Natriuretic 63.2 [facility] peptide B pg/mL Hospital [Mass/volume] in Serum or Plasma ID Date Data Source [id number] 12/28/2018 10:45:00 PM [facility] THERAPEUTIC RANGE FOR STANDARD ORALANTIC OAGULANT THERAPY: 2.0-3.0THERAPEUTIC RANGE FOR HIGH DOSE ORALANTICOAGULANT THERAPY (MECHANICAL HEARTVALVE REPLACEMENT): 2.5-3.5 Name Value Range Interpretation Description Data Sup porting Code Source(s) Document(s ) INR in Platelet 1.2 [facility] poor plasma by Hospital Coagulation assay ID Date Data Source [id number] 12/28/2018 10:45:00 PM EDT [facility] Name Value Range Interpretation Description Data Sup porting Code Source(s) Document(s ) PT panel - 13.0 s [facility] Platelet poor [facility] plasma by Coagulation assay ID Date Data Source [id number] 12/28/2018 10:45:00 PM [facility] Name Value Range Interpretation Description Data Sup porting Code Source(s) Document(s ) Natriuretic 63.2 [facility] peptide B pg/mL Hospital [Mass/volume] in Serum or Plasma ID Date Data Source [id number] 12/28/2018 10:45:00 PM [facility] THERAPEUTIC RANGE FOR STANDARD ORALANTIC OAGULANT THERAPY: 2.0-3.0THERAPEUTIC RANGE FOR HIGH DOSE ORALANTICOAGULANT THERAPY (MECHANICAL HEARTVALVE REPLACEMENT): 2.5-3.5 Name Value Range Interpretation Description Data Sup porting Code Source(s) Document(s ) INR in Platelet 1.2 [facility] poor plasma by Hospital Coagulation assay ID Date Data Source [id number] 12/28/2018 10:45:00 PM [facility] Name Value Range Interpretation Description Data Sup porting Code Source(s) Document(s ) PT panel - 13.0 s [facility] Platelet poor [facility] plasma by Coagulation assay ID Date Data Source [id number] 12/28/2018 12:01:00 AM [facility] TEST PERFORMED BY [employer] SENSITIVE [facility] CHEMILUMINESCENCE METHOD. Name Value Range Interpretation Description Data Sup porting Code Source(s) Document(s ) Troponin 0.01 [facility] I.cardiac ng/mL Hospital [Mass/volume ] in Serum or Plasma ID Date Data Source [id number] 12/27/2018 08:35:00 AM [facility] 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:[facility] Name Value Range Interpretation Description Data Sup porting Code Source(s) Document(s ) Glucose 238 mg/dL [facility] [Mass/volume] Hospital in Capillary blood by Glucometer ID Date Data Source [id number] 12/26/2018 08:30:00 AM [facility] THERE ARE NO REFERENCE RANGES FOR RANDOM VANCOMYCIN LEVELS. Name Value Range Interpretation Description Data Sup porting Code Source(s) Document(s ) Vancomycin 11.9 [facility] [Mass/volume] ug/mL Hospital in Serum or Plasma --trough ID Date Data Source [id number] 12/26/2018 08:30:00 AM [facility] Name Value Range Interpretation Description Data Sup porting Code Source(s) Document(s ) Calcium 8.7 mg/dL [facility] [[facility] ] in Serum or Plasma ID Date Data Source [id number] 12/26/2018 08:30:00 AM [facility] Name Value Range Interpretation Code Description Data Jackie rce(s) Supporting Document(s ) Urea 16.0 [facility] nitrogen/Cre Hospital atinine [Mass Ratio] in Serum or Plasma ID Date Data Source [id number] 12/26/2018 08:30:00 AM [facility] Name Value Range Interpretation Description Data Sup porting Code Source(s) Document(s ) Creatinine 1.0 mg/dL [facility] [Mass/volume] Hospital in Serum or Plasma ID Date Data Source [id number] 12/26/2018 08:30:00 AM EDT [facility] Name Value Range Interpretation Description Data Sup porting Code Source(s) Document(s ) Urea 16 mg/dL [facility] nitrogen Hospital [Mass/volume ] in Serum or Plasma ID Date Data Source [id number] 12/26/2018 08:30:00 AM EDT [facility] Value Range Interpretation Code Description Data Jackie rce(s) Supporting Document(s ) Anion gap in 10 [facility] Serum or [facility] Plasma ID Date Data Source [id number] 12/26/2018 08:30:00 AM EDT [facility] Value Range Interpretation Description Data Sup porting Code Source(s) Document(s ) Carbon 27 mmol/L [facility] dioxide, Hospital total [Moles/volu me] in Serum or Plasma ID Date Data Source [id number] 12/26/2018 08:30:00 AM EDT [facility] Name Value Range Interpretation Description Data Sup porting Code Source(s) Document(s ) Chloride 102 [facility] [Moles/volum mmol/L Hospital e] in Serum or Plasma ID Date Data Source [id number] 12/26/2018 08:30:00 AM EDT [facility] Name Value Range Interpretation Description Data Sup porting Code Source(s) Document(s ) Potassium 4.1 [facility] [Moles/volume mmol/L Hospital ] in Serum or Plasma ID Date Data Source [id number] 12/26/2018 08:30:00 AM EDT [facility] Name Value Range Interpretation Description Data Sup porting Code Source(s) Document(s ) Sodium 135 mmol/L [facility] [Moles/volu Hospital me] in Serum or Plasma ID Date Data Source [id number] 12/26/2018 08:30:00 AM EDT [facility] Name Value Range Interpretation Description Data Sup porting Code Source(s) Document(s ) Glucose 156 mg/dL [facility] [[facility] ] in Serum or Plasma ID Date Data Source [id number] [facility] Description Data Sup porting Code Source(s) Document(s ) Platelet mean 9.4 fL [facility] volume Hospital [Entitic volume] in Blood by Automated count ID Date Data Source [id number] [facility] Description Data Sup porting Code Source(s) Document(s ) Platelets 461 [facility] [#/volume] in 10*3/uL Hospital Blood by Automated count ID Date Data Source [id number] 12/26[facility]2018 [facility] Interpretation Description Data Sup porting Code Source(s) Document(s ) Erythrocyte 19.8 % [facility] Hospital width [Ratio] by Automated count ID Date Data Source [id number] 12/26/2018 08:30:00 AM [facility] Value Range Interpretation Description Data Sup porting Code Source(s) Document(s ) Erythrocyte mean 31.2 [facility] corpuscular g/dL Hospital hemoglobin concentration [Mass/volume] by Automated count ID Date Data Source [id number] 12/26/2018 08:30:00 AM [facility] Value Range Interpretation Description Data Sup porting Code Source(s) Document(s ) Erythrocyte 24.1 pg [facility] corpuscular hemoglobin [Entitic mass] by Automated count ID Date Data Source [id number] 12/26/2018 08:30:00 AM [facility] Value Range Interpretation Description Data Sup porting Code Source(s) Document(s ) Erythrocyte 77.3 fL [facility] mean Hospital corpuscular volume [Entitic volume] by Automated count ID Date Data Source [id number] 12/26/2018 08:30:00 AM [facility] Name Value Range Interpretation Description Data Sup porting Code Source(s) Document(s ) Hematocrit 23.1 % [facility] [Volume Hospital Fraction] of Blood by Automated count ID Date Data Source [id number] 12/26/2018 08:30:00 AM [facility] NOTIFICATION AND READ BACK OF CRITICAL R ESULTS TO KENDELL HAMMER RN 4E AT 0942 ON 12/26/18 BY Pat Rapp. Name Value Range Interpretation Description Data Sup porting Code Source(s) Document(s ) Hemoglobin 7.2 g/dL [facility] [Mass/volume] Hospital in Blood ID Date Data Source [id number] 12/26/2018 08:30:00 AM [facility] Name Value Range Interpretation Description Data Sup porting Code Source(s) Document(s ) Erythrocytes 2.99 [facility] [#/volume] in 10*6/uL Hospital Blood by Automated count ID Date Data Source [id number] 12/26/2018 08:30:00 AM [facility] Name Value Range Interpretation Description Data Sup porting Code Source(s) Document(s ) Leukocytes 8.9 [facility] [#/volume] in 10*3/uL Hospital Blood by Automated count ID Date Data Source [id number] 12/26/2018 08:30:00 AM [facility] THERE ARE NO REFERENCE RANGES FOR RANDOM VANCOMYCIN LEVELS. Name Value Range Interpretation Description Data Sup porting Code Source(s) Document(s ) Vancomycin 11.9 [facility] [Mass/volume] ug/mL Hospital in Serum or Plasma --trough ID Date Data Source [id number] 12/22/2018 10:54:00 PM [facility] NOTIFICATION AND READ BACK OF CRITICAL R ESULTS TO CARLA BOWERS RN-4E AT 2350 ON 12/22/18 BY Radha Page.NOTE: NEW RE FERENCE RANGE, EFFECTIVE 07/26/16.REPORTED CRITICAL VALUES SHOULD BE INTERPRETED WI THIN CLINICAL CONTEXT. Name Value Range Interpretation Description Data Sup porting Code Source(s) Document(s ) Vancomycin 23.7 [facility] [Mass/volume] ug/mL Hospital in Serum or Plasma --trough ID Date Data Source [id number] 12/22/2018 06:11:00 AM [facility] Name Value Range Interpretation Code Description Data Jackie rce(s) Supporting Document(s ) URINE 0-5 [facility] CASTS ID Date Data Source [id number] 12/22/2018 06:11:00 AM [facility] Name Value Range Interpretation Description Data Sup porting Code Source(s) Document(s ) Erythrocytes 5-10 [facility] [#/area] in /[HPF] Hospital Urine sediment by Automated count ID Date Data Source [id number] 12/22/2018 06:11:00 AM [facility] Name Value Range Interpretation Description Data Sup porting Code Source(s) Document(s ) Leukocytes 0-3 [facility] [#/area] in /[HPF] Hospital Urine sediment by Automated count ID Date Data Source [id number] 12/22/2018 06:11:00 AM [facility] Name Value Range Interpretation Description Data Sup porting Code Source(s) Document(s ) Leukocyte NEGATIVE [facility] [Presence] in Urine by Test strip ID Date Data Source [id number] 12/22/2018 06:11:00 AM EDT [facility] Name Value Range Interpretation Description Data Sup porting Code Source(s) Document(s ) URINE NEGATIVE [facility] NITRITES Hospital ID Date Data Source [id number] 12/22/2018 06:11:00 AM EDT [facility] Name Value Range Interpretation Description Data Sup porting Code Source(s) Document(s ) Erythrocytes TRACE [facility] [#/volume] in Hospital Urine by Test strip ID Date Data Source [id number] 12/22/2018 06:11:00 AM EDT [facility] Name Value Range Interpretation Code Description Data Jackie rce(s) Supporting Document(s ) Bilirubin. NEGATIVE [facility] total Hospital [Presence] in Urine by Test strip ID Date Data Source [id number] 12/22/2018 06:11:00 AM EDT [facility] Name Value Range Interpretation Description Data Sup porting Code Source(s) Document(s ) Urobilinogen 0.2 [facility] [Units/volume] mg/dL Hospital in Urine by Test strip ID Date Data Source [id number] 12/22/2018 06:11:00 AM EDT [facility] Name Value Range Interpretation Description Data Sup porting Code Source(s) Document(s ) Ketones NEGATIVE [facility] [Mass[facility]volume Hospital ] in Urine by Test strip ID Date Data Source [id number] 12/22/2018 06:11:00 AM EDT [facility] Name Value Range Interpretation Code Description Data Jackie rce(s) Supporting Document(s ) Glucose TRACE [facility] [Mass[facility]volume Hospital ] in Urine by Test strip ID Date Data Source [id number] 12/22/2018 06:11:00 AM EDT [facility] Name Value Range Interpretation Code Description Data Jackie rce(s) Supporting Document(s ) Protein 2+ [facility] [Presence] Hospital in Urine by Test strip ID Date Data Source [id number] 12/22/2018 06:11:00 AM EDT [facility] Name Value Range Interpretation Code Description Data Jackie rce(s) Supporting Document(s ) pH of Urine 6.5 [facility] by Test Hospital strip ID Date Data Source [id number] 12/22/2018 06:11:00 AM EDT [facility] Name Value Range Interpretation Code Description Data Supporting Source(s) Document(s ) Specific 1.012 [facility] gravity of Hospital Urine by Test strip ID Date Data Source [id number] 12/22/2018 06:11:00 AM EDT [facility] Value Range Interpretation Description Data Sup porting Code Source(s) Document(s ) Clarity in Urine CLEAR [facility] by Refractometry Hospital automated ID Date Data Source [id number] 12/22/2018 06:11:00 AM EDT [facility] Value Range Interpretation Code Description Data Jackie rce(s) Supporting Document(s ) Color of YELLOW [facility] Urine Hospital ID Date Data Source [id number] 12/22/2018 06:11:00 AM EDT [facility] Name Value Range Interpretation Code Description Data Jackie rce(s) Supporting Document(s ) URINE 0-5 [facility] HYALINE Hospital CASTS ID Date Data Source [id number] 12/22/2018 06:11:00 AM EDT [facility] Name Value Range Interpretation Description Data Sup porting Code Source(s) Document(s ) Erythrocytes 5-10 [facility] [#/area] in /[HPF] Hospital Urine sediment by Automated count ID Date Data Source [id number] 12/22/2018 06:11:00 AM EDT [facility] Name Value Range Interpretation Description Data Sup porting Code Source(s) Document(s ) Leukocytes 0-3 [facility] [#/area] in /[HPF] Hospital Urine sediment by Automated count ID Date Data Source [id number] 12/22/2018 06:11:00 AM EDT [facility] Name Value Range Interpretation Description Data Sup porting Code Source(s) Document(s ) Leukocyte NEGATIVE [facility] esterase Hospital [Presence] in Urine by Test strip ID Date Data Source [id number] 12/22/2018 06:11:00 AM EDT [facility] Name Value Range Interpretation Description Data Sup porting Code Source(s) Document(s ) URINE NEGATIVE [facility] NITRITES Hospital ID Date Data Source [id number] 12/22/2018 06:11:00 AM EDT [facility] Name Value Range Interpretation Description Data Sup porting Code Source(s) Document(s ) Erythrocytes TRACE [facility] [#/volume] in Hospital Urine by Test strip ID Date Data Source [id number] 12/22/2018 06:11:00 AM [facility] Name Value Range Interpretation Code Description Data Jackie rce(s) Supporting Document(s ) Bilirubin. NEGATIVE [facility] total Hospital [Presence] in Urine by Test strip ID Date Data Source [id number] [facility] Interpretation Description Data Sup porting Code Source(s) Document(s ) Urobilinogen 0.2 [facility] [Units/volume] mg/dL Hospital in Urine by Test strip ID Date Data Source [id number] 12/22/2018 06:11:00 AM EDT [facility] Name Value Range Interpretation Description Data Sup porting Code Source(s) Document(s ) Ketones NEGATIVE [facility] [Mass/volume Hospital ] in Urine by Test strip ID Date Data Source [id number] 12/22/2018 06:11:00 AM EDT [facility] Name Value Range Interpretation Code Description Data Jackie rce(s) Supporting Document(s ) Glucose TRACE [facility] [Mass/volume Hospital ] in Urine by Test strip ID Date Data Source [id number] 12/22/2018 06:11:00 AM EDT [facility] Name Value Range Interpretation Code Description Data Jackie rce(s) Supporting Document(s ) Protein 2+ [facility] [Presence] Hospital in Urine by Test strip ID Date Data Source [id number] 12/22/2018 06:11:00 AM EDT [facility] Value Range Interpretation Code Description Data Jackie rce(s) Supporting Document(s ) pH of Urine 6.5 [facility] by Test Hospital strip ID Date Data Source [id number] 12/22/2018 06:11:00 AM EDT [facility] Name Value Range Interpretation Code Description Data Supporting Source(s) Document(s ) Specific 1.012 [facility] gravity of Hospital Urine by Test strip ID Date Data Source [id number] 12/22/2018 06:11:00 AM EDT [facility] Name Value Range Interpretation Description Data Sup porting Code Source(s) Document(s ) Clarity in Urine CLEAR [facility] automated ID Date Data Source [id number] 12/22/2018 06:11:00 AM EDT [facility] Name Value Range Interpretation Code Description Data Jackie rce(s) Supporting Document(s ) Color of YELLOW [facility] ID Date Data Source [id number] 12/22/2018 02:44:00 AM EDT [facility] Name Value Range Interpretation Code Description Data Supporting Source(s) Document(s ) NUCLEATED RBCS 0.0 % [facility] (AUTO Hospital DIFF%)DIS ID Date Data Source [id number] 12/22/2018 02:44:00 AM EDT [facility] Value Range Interpretation Description Data Sup porting Code Source(s) Document(s ) Differential AUTOMATED [facility] [place] cell count [facility] method - Blood ID Date Data Source [id number] 12/22/2018 02:44:00 AM EDT [facility] Name Value Range Interpretation Description Data Sup porting Code Source(s) Document(s ) Immature 0.05 [facility] granulocytes 10*3/uL Hospital [#/volume] in Blood by Automated count ID Date Data Source [id number] 12/22/2018 02:44:00 AM EDT [facility] Value Range Interpretation Description Data Sup porting Code Source(s) Document(s ) Basophils 0.04 [facility] [#/volume] in 10*3/uL Hospital Blood by Automated count ID Date Data Source [id number] [facility] Interpretation Description Data Sup porting Code Source(s) Document(s ) Eosinophils 0.20 [facility] [#/volume] in 10*3/uL Hospital Blood by Automated count ID Date Data Source [id number] 12/22/2018 02:44:00 AM EDT [facility] Name Value Range Interpretation Description Data Sup porting Code Source(s) Document(s ) Monocytes 1.47 [facility] [#/volume] in 10*3/uL Hospital Blood by Automated count ID Date Data Source [id number] 12/22/2018 02:44:00 AM EDT [facility] Value Range Interpretation Description Data Sup porting Code Source(s) Document(s ) Lymphocytes 1.94 [facility] [#/volume] in 10*3/uL Hospital Blood by Automated count ID Date Data Source [id number] 12/22/2018 02:44:00 AM EDT [facility] Value Range Interpretation Description Data Sup porting Code Source(s) Document(s ) Neutrophils 8.25 [facility] [#/volume] in 10*3/uL Hospital Blood by Automated count ID Date Data Source [id number] 12/22/2018 02:44:00 AM EDT [facility] Value Range Interpretation Description Data Sup porting Code Source(s) Document(s ) Nucleated 0.0 % [facility] erythrocytes/10 Hospital 0 leukocytes [Ratio] in Blood by Automated count ID Date Data Source [id number] 12/22/2018 02:44:00 AM EDT [facility] Value Range Interpretation Description Data Sup porting Code Source(s) Document(s ) Immature 0.4 % [facility] granulocytes/10 Hospital 0 leukocytes in Blood by Automated count ID Date Data Source [id number] 12/22/2018 02:44:00 AM EDT [facility] Value Range Interpretation Description Data Sup porting Code Source(s) Document(s ) Basophils/100 0.3 % [facility] leukocytes in [facility] Blood by Automated count ID Date Data Source [id number] 12/22/2018 02:44:00 AM EDT [facility] Value Range Interpretation Description Data Sup porting Code Source(s) Document(s ) Eosinophils/100 1.7 % [facility] leukocytes in [facility] Blood by Automated count ID Date Data Source [id number] 12/22/2018 02:44:00 AM EDT [facility] Value Range Interpretation Description Data Sup porting Code Source(s) Document(s ) Monocytes/100 12.3 % [facility] leukocytes in Hospital Blood by Automated count ID Date Data Source [id number] 12/22/2018 02:44:00 AM EDT [facility] Name Value Range Interpretation Description Data Sup porting Code Source(s) Document(s ) Lymphocytes/10 16.2 % [facility] 0 leukocytes Hospital in Blood by Automated count ID Date Data Source [id number] 12/22/2018 02:44:00 AM EDT [facility] Name Value Range Interpretation Description Data Sup porting Code Source(s) Document(s ) Neutrophils/10 69.1 % [facility] 0 leukocytes Hospital in Blood by Automated count ID Date Data Source [id number] 12/22/2018 01:34:00 AM EDT [facility] Value Range Interpretation Description Data Sup porting Code Source(s) Document(s ) Lactate 0.7 [facility] [Moles/volum mmol/L Hospital e] in Serum or Plasma ID Date Data Source [id number] 12/21/2018 08:27:00 PM EDT [facility] Name Value Range Interpretation Description Data Sup porting Code Source(s) Document(s ) Bacteria METHICILLIN White identified in RES [facility] [place] [facility] Culture ID Date Data Source [id number] 12/21/2018 08:27:00 PM EDT [facility] Value Range Interpretation Description Data Sup porting Code Source(s) Document(s ) Bacteria METHICILLIN White identified in RES [facility] [place] [facility] Culture ID Date Data Source [id number] 12/21/2018 11:22:00 AM EDT [facility] Name Value Range Interpretation Description Data Sup porting Code Source(s) Document(s ) GLUCOSE RN Notified [facility] Hospital ID Date Data Source [id number] 12/20/2018 07:57:00 PM EDT [facility] Name Value Range Interpretation Description Data Sup porting Code Source(s) Document(s ) Bacteria METHICILLIN White identified in RES [facility] Urine by [facility] Culture ID Date Data Source [id number] 12/20/2018 07:57:00 PM EDT [facility] Name Value Range Interpretation Description Data Sup porting Code Source(s) Document(s ) Hyaline casts 0-5/LPF [facility] [#/area] in Hospital Urine sediment by Microscopy low power field ID Date Data Source [id number] [facility] Interpretation Description Data Sup porting Code Source(s) Document(s ) Epithelial 2+ [facility] cells.squamous Hospital [#/area] in Urine sediment by Microscopy high power field ID Date Data Source [id number] [facility] Interpretation Description Data Sup porting Code Source(s) Document(s ) Bacteria OCCASIONAL [facility] [facility] [#/area] in Hospital Urine sediment by Microscopy high power field ID Date Data Source [id number] 12/20/2018 07:57:00 PM [facility] Name Value Range Interpretation Description Data Sup porting Code Source(s) Document(s ) Erythrocytes 5-10 [facility] [#/area] in /[HPF] Hospital Urine sediment by Microscopy high power field ID Date Data Source [id number] 12/20/[facility] Interpretation Description Data Sup porting Code Source(s) Document(s ) Leukocytes 10-20 [facility] [#/area] in /[HPF] Hospital Urine sediment by Microscopy high power field ID Date Data Source [id number] 12/20/[facility] Interpretation Description Data Sup porting Code Source(s) Document(s ) Bacteria METHICILLIN White identified in RES [facility] Urine by [facility] Culture ID Date Data Source [id number] 12/20/2018 07:57:00 PM EDT [facility] Name Value Range Interpretation Description Data Sup porting Code Source(s) Document(s ) Hyaline casts 0-5/LPF [facility] [facility] [#/area] in Hospital Urine sediment by Microscopy low power field ID Date Data Source [id number] 12/20/2018 [facility] Value Range Interpretation Description Data Sup porting Code Source(s) Document(s ) Epithelial 2+ [facility] cells.squamous Hospital [#/area] in Urine sediment by Microscopy high power field ID Date Data Source [id number] 12/20/[facility] Interpretation Description Data Sup porting Code Source(s) Document(s ) Bacteria OCCASIONAL [facility] [#/area] in Hospital Urine sediment by Microscopy high power field ID Date Data Source [id number] 12/20/2018 07:57:00 PM [facility] Name Value Range Interpretation Description Data Sup porting Code Source(s) Document(s ) Erythrocytes 5-10 [facility] [#/area] in /[HPF] Hospital Urine sediment by Microscopy high power field ID Date Data Source [id number] 12/20/2018 07:57:00 PM [facility] Name Value Range Interpretation Description Data Sup porting Code Source(s) Document(s ) Leukocytes 10-20 [facility] [#/area] in /[HPF] Hospital Urine sediment by Microscopy high power field ID Date Data Source [id number] 12/20/2018 10:02:00 AM [facility] TEST PERFORMED BY [employer] [facility] CHEMILUMINESCENCE METHOD. Name Value Range Interpretation Description Data Sup porting Code Source(s) Document(s ) Troponin 0.01 [facility] I.cardiac ng/mL Hospital [Mass/volume ] in Serum or Plasma ID Date Data Source [id number] 12/20/2018 10:02:00 AM EDT [facility] Name Value Range Interpretation Description Data Sup porting Code Source(s) Document(s ) Procalcitonin 0.4 [facility] [Mass/volume] in ng/mL Hospital Serum or Plasma ID Date Data Source [id number] 12/20/2018 10:02:00 AM [facility] Name Value Range Interpretation Code Description Data Jackie rce(s) Supporting Document(s ) Lipase 21 U/L [facility] [Enzymatic Hospital activity/vo lume] in Serum or Plasma ID Date Data Source [id number] 12/20/2018 10:02:00 AM [facility] Name Value Range Interpretation Description Data Sup porting Code Source(s) Document(s ) Magnesium 1.3 mg/dL [facility] [Mass/volume] Hospital in Serum or Plasma ID Date Data Source [id number] 12/20/2018 10:02:00 AM [facility] Name Value Range Interpretation Description Data Sup porting Code Source(s) Document(s ) Aspartate 24 U/L White aminotransferase [place] [Enzymatic Hospital activity/volume] in Serum or Plasma ID Date Data Source [id number] 12/20/2018 [facility] Interpretation Description Data Sup porting Code Source(s) Document(s ) Alanine 17 U/L [facility] aminotransferase [place] [Enzymatic Hospital activity/volume] in Serum or Plasma ID Date Data Source [id number] 12/20/2018 10:02:00 AM [facility] Name Value Range Interpretation Description Data Sup porting Code Source(s) Document(s ) Alkaline 208 U/L [facility] [Enzymatic activity/volume ] in Serum or Plasma ID Date Data Source [id number] 12/20/2018 [facility] Value [facility] Interpretation Description Data Sup porting Code Source(s) Document(s ) Bilirubin.t 0.5 mg/dL [facility] [Mass/volum e] in Serum or Plasma ID Date Data Source [id number] 12/20/2018 10:02:00 AM [facility] Name Value Range Interpretation Code Description Data Jackie rce(s) Supporting Document(s ) Albumin/Glob 0.9 [facility] [Mass Hospital Ratio] in Serum or Plasma ID Date Data Source [id number] 12/20/2018 [facility] Value [facility] Interpretation Description Data Sup porting Code Source(s) Document(s ) Albumin 3.8 g/dL [facility] [Mass/volume Hospital ] in Serum or Plasma ID Date Data Source [id number] 12/20/2018 [facility] Name Value Range Interpretation Description Data Sup porting Code Source(s) Document(s ) Protein 8.1 g/dL [facility] [Mass/volume Hospital ] in Serum or Plasma ID Date Data Source [id number] 12/20/2018 10:02:00 AM [facility] THERAPEUTIC RANGES:UNFRACTIONATED HEPARI N THERAPY: 60-90 SECONDSARGATROBAN THERAPY: 49-99 SECONDS Name Value Range Interpretation Description Data Sup porting Code Source(s) Document(s ) aPTT in 33.5 s [facility] Platelet poor [facility] plasma by Coagulation assay ID Date Data Source [id number] 12/20/2018 10:02:00 AM [facility] THERAPEUTIC RANGE FOR STANDARD ORALANTIC OAGULANT THERAPY: 2.0-3.0THERAPEUTIC RANGE FOR HIGH DOSE ORALANTICOAGULANT THERAPY (MECHANICAL HEARTVALVE REPLACEMENT): 2.5-3.5 Name Value Range Interpretation Description Data Sup porting Code Source(s) Document(s ) INR in Platelet 1.3 [facility] poor plasma by Hospital Coagulation assay ID Date Data Source [id number] 12/20/2018 10:02:00 AM EDT [facility] Name Value Range Interpretation Description Data Sup porting Code Source(s) Document(s ) PT panel - 15.0 s [facility] [place] Platelet poor [facility] plasma by Coagulation assay ID Date Data Source [id number] 12/20/2018 10:02:00 AM [facility] Name Value Range Interpretation Code Description Data Jackie rce(s) Supporting Document(s ) Cells 100 [facility] Total [#] in Blood ID Date Data Source [id number] 12/20/2018 10:02:00 AM [facility] Name Value Range Interpretation Code Description Data Supporting Source(s) Document(s ) PLATELET NORMAL [facility] Hospital ID Date Data Source [id number] 12/20/2018 10:02:00 AM [facility] Name Value Range Interpretation Code Description Data Jackie rce(s) Supporting Document(s ) LANI CELLS 1+ [facility] ID Date Data Source [id number] 12/20/2018 10:02:00 AM [facility] Name Value Range Interpretation Code Description Data Jackie rce(s) Supporting Document(s ) TARGET CELLS OCC [facility] ID Date Data Source [id number] 12/20/2018 10:02:00 AM EDT [facility] Name Value Range Interpretation Code Description Data Jackie rce(s) Supporting Document(s ) HYPOCHROMIA OCC [facility] ID Date Data Source [id number] 12/20/2018 10:02:00 AM EDT [facility] Name Value Range Interpretation Code Description Data Jackie rce(s) Supporting Document(s ) MICROCYTOSIS 2+ [facility] ID Date Data Source [id number] 12/20/2018 10:02:00 AM EDT [facility] Value Range Interpretation Description Data Sup porting Code Source(s) Document(s ) POIKILOCYTOSIS 1+ [facility] ID Date Data Source [id number] 12/20/2018 10:02:00 AM EDT [facility] Value Range Interpretation Code Description Data Jackie rce(s) Supporting Document(s ) ANISOCYTOSIS 1+ [facility] ID Date Data Source [id number] 12/20/2018 10:02:00 AM EDT [facility] Value Range Interpretation Description Data Sup porting Code Source(s) Document(s ) Basophils 0.26 [facility] [#/volume] in 10*3/uL Hospital Blood by Manual count ID Date Data Source [id number] 12/20/2018 10:02:00 AM EDT [facility] Value Range Interpretation Description Data Sup porting Code Source(s) Document(s ) Monocytes 1.31 [facility] [#/volume] in 10*3/uL Hospital Blood by Manual count ID Date Data Source [id number] 12/20/2018 10:02:00 AM EDT [facility] Value Range Interpretation Description Data Sup porting Code Source(s) Document(s ) Lymphocytes 4.18 [facility] [#/volume] in 10*3/uL Hospital Blood by Manual count ID Date Data Source [id number] 12/20/2018 10:02:00 AM EDT [facility] Value Range Interpretation Description Data Sup porting Code Source(s) Document(s ) Neutrophils 20.36 [facility] [#/volume] in 10*3/uL Hospital Blood by Manual count ID Date Data Source [id number] 12/20/2018 10:02:00 AM EDT [facility] Value Range Interpretation Description Data Sup porting Code Source(s) Document(s ) Basophils/100 1 % [facility] leukocytes in Hospital Blood by Manual count ID Date Data Source [id number] 12/20/2018 10:02:00 AM EDT [facility] Value Range Interpretation Description Data Sup porting Code Source(s) Document(s ) Monocytes/100 5 % [facility] leukocytes in Hospital Blood by Manual count ID Date Data Source [id number] 12/20/2018 10:02:00 AM EDT [facility] Value Range Interpretation Description Data Sup porting Code Source(s) Document(s ) Variant 1 % [facility] lymphocytes/100 Hospital leukocytes in Blood by Manual count ID Date Data Source [id number] 12/20/2018 10:02:00 AM EDT [facility] Value Range Interpretation Description Data Sup porting Code Source(s) Document(s ) Lymphocytes/100 15 % [facility] leukocytes in Hospital Blood by Manual count ID Date Data Source [id number] 12/20/2018 10:02:00 AM EDT [facility] Value Range Interpretation Description Data Sup porting Code Source(s) Document(s ) Neutrophils/100 78 % [facility] leukocytes in Hospital Blood by Manual count ID Date Data Source [id number] 12/20/2018 10:02:00 AM EDT [facility] Name Value Range Interpretation Description Data Sup porting Code Source(s) Document(s ) Procalcitonin 0.4 [facility] [facility] [Mass/volume] in ng/mL Hospital Serum or Plasma ID Date Data Source [id number] 12/20/2018 10:02:00 AM EDT [facility] Name Value Range Interpretation Code Description Data Jackie rce(s) Supporting Document(s ) Lipase 21 U/L [facility] [facility] [Enzymatic Hospital activity/vo lume] in Serum or Plasma ID Date Data Source [id number] 12/20/2018 10:02:00 AM EDT [facility] Name Value Range Interpretation Description Data Sup porting Code Source(s) Document(s ) Magnesium 1.3 mg/dL [facility] [Mass/volume] Hospital in Serum or Plasma ID Date Data Source [id number] 12/20/2018 10:02:00 AM [facility] THERAPEUTIC RANGES:UNFRACTIONATED HEPARI N THERAPY: 60-90 SECONDSARGATROBAN THERAPY: 49-99 SECONDS Name Value Range Interpretation Description Data Sup porting Code Source(s) Document(s ) aPTT in 33.5 s [facility] Platelet poor [facility] plasma by Coagulation assay ID Date Data Source [id number] 12/20/2018 [facility] Value [facility] Interpretation Code Description Data Jackie rce(s) Supporting Document(s ) Cells 100 [facility] Total [#] in Blood ID Date Data Source [id number] 12/20/2018 10:02:00 AM EDT [facility] Name Value Range Interpretation Code Description Data Supporting Source(s) Document(s ) PLATELET NORMAL [facility] Hospital ID Date Data Source [id number] 12/20/2018 10:02:00 AM EDT [facility] Name Value Range Interpretation Code Description Data Jackie rce(s) Supporting Document(s ) LANI CELLS 1+ [facility] ID Date Data Source [id number] 12/20/2018 10:02:00 AM EDT [facility] Value Range Interpretation Code Description Data Jackie rce(s) Supporting Document(s ) TARGET CELLS OCC [facility] ID Date Data Source [id number] 12/20/2018 10:02:00 AM EDT [facility] Value Range Interpretation Code Description Data Jackie rce(s) Supporting Document(s ) HYPOCHROMIA OCC [facility] ID Date Data Source [id number] 12/20/2018 10:02:00 AM EDT [facility] Value Range Interpretation Code Description Data Jackie rce(s) Supporting Document(s ) MICROCYTOSIS 2+ [facility] ID Date Data Source [id number] 12/20/2018 10:02:00 AM EDT [facility] Value Range Interpretation Description Data Sup porting Code Source(s) Document(s ) POIKILOCYTOSIS 1+ [facility] ID Date Data Source [id number] 12/20/2018 10:02:00 AM EDT [facility] Value Range Interpretation Code Description Data Jackie rce(s) Supporting Document(s ) ANISOCYTOSIS 1+ [facility] ID Date Data Source [id number] 12/20/2018 10:02:00 AM EDT [facility] Value Range Interpretation Description Data Sup porting Code Source(s) Document(s ) Basophils 0.26 [facility] [#/volume] in 10*3/uL Hospital Blood by Manual count ID Date Data Source [id number] 12/20/2018 10:02:00 AM EDT [facility] Value Range Interpretation Description Data Sup porting Code Source(s) Document(s ) Monocytes 1.31 [facility] [#/volume] in 10*3/uL Hospital Blood by Manual count ID Date Data Source [id number] 12/20/2018 10:02:00 AM EDT [facility] Name Value Range Interpretation Description Data Sup porting Code Source(s) Document(s ) Lymphocytes 4.18 [facility] [#/volume] in 10*3/uL Hospital Blood by Manual count ID Date Data Source [id number] 12/20/2018 10:02:00 AM EDT [facility] Value Range Interpretation Description Data Sup porting Code Source(s) Document(s ) Neutrophils 20.36 [facility] [#/volume] in 10*3/uL [facility] Blood by Manual count ID Date Data Source [id number] 12/20/2018 10:02:00 AM EDT [facility] Value Range Interpretation Description Data Sup porting Code Source(s) Document(s ) Basophils/100 1 % [facility] leukocytes in Hospital Blood by Manual count ID Date Data Source [id number] 12/20/2018 10:02:00 AM EDT [facility] Value Range Interpretation Description Data Sup porting Code Source(s) Document(s ) Monocytes/100 5 % [facility] leukocytes in Hospital Blood by Manual count ID Date Data Source [id number] 12/20/2018 10:02:00 AM EDT [facility] Value Range Interpretation Description Data Sup porting Code Source(s) Document(s ) Variant 1 % [facility] lymphocytes/100 Hospital leukocytes in Blood by Manual count ID Date Data Source [id number] 12/20/2018 10:02:00 AM EDT [facility] Value Range Interpretation Description Data Sup porting Code Source(s) Document(s ) Lymphocytes/100 15 % [facility] leukocytes in Hospital Blood by Manual count ID Date Data Source [id number] 12/20/2018 10:02:00 AM [facility] Value Range Interpretation Description Data Sup porting Code Source(s) Document(s ) Neutrophils/100 78 % [facility] leukocytes in Hospital Blood by Manual count ID Date Data Source [id number] 12/20/2018 09:49:00 AM [facility] Value Range Interpretation Description Data Sup porting Code Source(s) Document(s ) Bacteria METHICILLIN White identified in RES STAPH [place] Blood by [facility] Culture ID Date Data Source [id number] 12/18/2018 02:58:00 PM [facility] Value Range Interpretation Description Data Sup porting Code Source(s) Document(s ) Bacteria CORYNEBACTERIUM White identified SPECIES [place] [facility] Culture Bacteria METHICILLIN RES White identified STAPH AUREUS [place] [facility] Culture ID Date Data Source [id number] 12/18/2018 06:27:00 AM [facility] [employer] 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: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 CESPEDES Name Value Range Interpretation Description Data Sup porting Code Source(s) Document(s ) Glucose 177 mg/dL [facility] [Mass/volume] [facility] in Capillary blood by Glucometer ID Date Data Source [id number] 12/17/2018 11:03:00 AM [facility] Value Range Interpretation Description Data Sup porting Code Source(s) Document(s ) GLUCOSE Pre Meal [facility] COMMENT2 Hospital ID Date Data Source [id number] 12/17/2018 11:03:00 AM [facility] Value Range Interpretation Description Data Sup porting Code Source(s) Document(s ) GLUCOSE Pre Meal [facility] COMMENT2 Hospital ID Date Data Source [id number] 12/17/2018 11:03:00 AM EDT [facility] Name Value Range Interpretation Description Data Sup porting Code Source(s) Document(s ) GLUCOSE RN Notified [facility] Hospital ID Date Data Source [id number] 12/17/2018 08:45:00 AM EDT [facility] Name Value Range Interpretation Description Data Sup porting Code Source(s) Document(s ) Calcium 8.4 mg/dL [facility] [facility] [Mass/volume Hospital ] in Serum or Plasma ID Date Data Source [id number] 12/17/2018 08:45:00 AM EDT [facility] Value Range Interpretation Code Description Data Jackie rce(s) Supporting Document(s ) Urea 13.8 [facility] [facility] nitrogen/Cre Hospital atinine [Mass Ratio] in Serum or Plasma ID Date Data Source [id number] 12/17/2018 08:45:00 AM EDT [facility] Value Range Interpretation Description Data Sup porting Code Source(s) Document(s ) Creatinine 0.8 mg/dL [facility] [Mass/volume] Hospital in Serum or Plasma ID Date Data Source [id number] 12/17/2018 08:45:00 AM EDT [facility] Value Range Interpretation Description Data Sup porting Code Source(s) Document(s ) Urea 11 mg/dL [facility] nitrogen Hospital [Mass/volume ] in Serum or Plasma ID Date Data Source [id number] 12/17/2018 08:45:00 AM EDT [facility] Value Range Interpretation Code Description Data Jackie rce(s) Supporting Document(s ) Anion gap in 12 [facility] Serum or [facility] Plasma ID Date Data Source [id number] 12/17/2018 08:45:00 AM EDT [facility] Name Value Range Interpretation Description Data Sup porting Code Source(s) Document(s ) Carbon 25 mmol/L [facility] [place] dioxide, Hospital total [Moles/volu me] in Serum or Plasma ID Date Data Source [id number] 12/17/2018 08:45:00 AM EDT [facility] Name Value Range Interpretation Description Data Sup porting Code Source(s) Document(s ) Chloride 99 mmol/L [facility] [Moles/volum Hospital e] in Serum or Plasma ID Date Data Source [id number] 12/17/2018 08:45:00 AM EDT [facility] Name Value Range Interpretation Description Data Sup porting Code Source(s) Document(s ) Potassium 4.0 [facility] [facility] [Moles/volume mmol/L Hospital ] in Serum or Plasma ID Date Data Source [id number] 12/17/2018 08:45:00 AM EDT [facility] Name Value Range Interpretation Description Data Sup porting Code Source(s) Document(s ) Sodium 132 mmol/L [facility] [facility] [Moles/volu Hospital me] in Serum or Plasma ID Date Data Source [id number] 12/17/2018 08:45:00 AM EDT [facility] Name Value Range Interpretation Description Data Sup porting Code Source(s) Document(s ) Glucose 198 mg/dL [facility] [facility] [Mass/volume Hospital ] in Serum or Plasma ID Date Data Source [id number] 12/17/2018 08:45:00 AM EDT [facility] Name Value Range Interpretation Description Data Sup porting Code Source(s) Document(s ) Differential AUTOMATED [facility] cell count Hospital method - Blood ID Date Data Source [id number] 12/17/2018 08:45:00 AM EDT [facility] Name Value Range Interpretation Description Data Sup porting Code Source(s) Document(s ) Immature 0.06 [facility] granulocytes 10*3/uL Hospital [#/volume] in Blood by Automated count ID Date Data Source [id number] 12/17/2018 08:45:00 AM EDT [facility] Name Value Range Interpretation Description Data Sup porting Code Source(s) Document(s ) Basophils 0.04 [facility] [facility] [#/volume] in 10*3/uL Hospital Blood by Automated count ID Date Data Source [id number] 12/17/2018 08:45:00 AM EDT [facility] Name Value Range Interpretation Description Data Sup porting Code Source(s) Document(s ) Eosinophils 0.25 [facility] [#/volume] in 10*3/uL Hospital Blood by Automated count ID Date Data Source [id number] 12/17/2018 08:45:00 AM EDT [facility] Value Range Interpretation Description Data Sup porting Code Source(s) Document(s ) Monocytes 1.42 [facility] [facility] [#/volume] in 10*3/uL Hospital Blood by Automated count ID Date Data Source [id number] 12/17/2018 08:45:00 AM EDT [facility] Value Range Interpretation Description Data Sup porting Code Source(s) Document(s ) Lymphocytes 2.54 [facility] [facility] [#/volume] in 10*3/uL Hospital Blood by Automated count ID Date Data Source [id number] 12/17/2018 08:45:00 AM EDT [facility] Name Value Range Interpretation Description Data Sup porting Code Source(s) Document(s ) Neutrophils 8.07 [facility] [#/volume] in 10*3/uL Hospital Blood by Automated count ID Date Data Source [id number] 12/17/2018 08:45:00 AM EDT [facility] Value Range Interpretation Description Data Sup porting Code Source(s) Document(s ) Nucleated 0.0 % [facility] erythrocytes/10 Hospital 0 leukocytes [Ratio] in Blood by Automated count ID Date Data Source [id number] 12/17/2018 08:45:00 AM EDT [facility] Name Value Range Interpretation Description Data Sup porting Code Source(s) Document(s ) Immature 0.5 % [facility] granulocytes/10 Hospital 0 leukocytes in Blood by Automated count ID Date Data Source [id number] 12/17/2018 08:45:00 AM EDT [facility] Value Range Interpretation Description Data Sup porting Code Source(s) Document(s ) Basophils/100 0.3 % [facility] leukocytes in Hospital Blood by Automated count ID Date Data Source [id number] 12/17/2018 08:45:00 AM EDT [facility] Value Range Interpretation Description Data Sup porting Code Source(s) Document(s ) Eosinophils/100 2.0 % [facility] leukocytes in Hospital Blood by Automated count ID Date Data Source [id number] 12/17/2018 08:45:00 AM EDT [facility] Value Range Interpretation Description Data Sup porting Code Source(s) Document(s ) Monocytes/100 11.5 % [facility] leukocytes in Hospital Blood by Automated count ID Date Data Source [id number] 12/17/2018 08:45:00 AM EDT [facility] Value Range Interpretation Description Data Sup porting Code Source(s) Document(s ) Lymphocytes/10 20.5 % [facility] 0 leukocytes Hospital in Blood by Automated count ID Date Data Source [id number] 12/17/2018 08:45:00 AM EDT [facility] Value Range Interpretation Description Data Sup porting Code Source(s) Document(s ) Neutrophils/10 65.2 % [facility] 0 leukocytes Hospital in Blood by Automated count ID Date Data Source [id number] 12/17/2018 08:45:00 AM [facility] Value Range Interpretation Description Data Sup porting Code Source(s) Document(s ) Platelet mean 10.3 fL [facility] volume Hospital [Entitic volume] in Blood by Automated count ID Date Data Source [id number] 12/17/2018 08:45:00 AM [facility] Value Range Interpretation Description Data Sup porting Code Source(s) Document(s ) Platelets 386 [facility] [#/volume] in 10*3/uL Hospital Blood by Automated count ID Date Data Source [id number] 12/17/2018 08:45:00 AM [facility] Value Range Interpretation Description Data Sup porting Code Source(s) Document(s ) Erythrocyte 20.1 % [facility] Hospital width [Ratio] by Automated count ID Date Data Source [id number] 12/17/2018 08:45:00 AM [facility] Value Range Interpretation Description Data Sup porting Code Source(s) Document(s ) Erythrocyte mean 31.9 [facility] [facility] corpuscular g/dL Hospital hemoglobin concentration [Mass/volume] by Automated count ID Date Data Source [id number] 12/17/2018 08:45:00 AM [facility] Value Range Interpretation Description Data Sup porting Code Source(s) Document(s ) Erythrocyte 24.6 pg [facility] corpuscular hemoglobin [Entitic mass] by Automated count ID Date Data Source [id number] 12/17/2018 08:45:00 AM [facility] Value Range Interpretation Description Data Sup porting Code Source(s) Document(s ) Erythrocyte 76.9 fL [facility] corpuscular volume [Entitic volume] by Automated count ID Date Data Source [id number] 12/17/2018 08:45:00 AM EDT [facility] Name Value Range Interpretation Description Data Sup porting Code Source(s) Document(s ) Hematocrit 26.3 % [facility] [facility] [Volume Hospital Fraction] of Blood by Automated count ID Date Data Source [id number] 12/17/2018 08:45:00 AM EDT [facility] Name Value Range Interpretation Description Data Sup porting Code Source(s) Document(s ) Hemoglobin 8.4 g/dL [facility] [Mass/volume] Hospital in Blood ID Date Data Source [id number] 12/17/2018 08:45:00 AM EDT [facility] Name Value Range Interpretation Description Data Sup porting Code Source(s) Document(s ) Erythrocytes 3.42 [facility] [facility] [#/volume] in 10*6/uL Hospital Blood by Automated count ID Date Data Source [id number] 12/17/2018 08:45:00 AM EDT [facility] Value Range Interpretation Description Data Sup porting Code Source(s) Document(s ) Leukocytes 12.4 [facility] [#/volume] in 10*3/uL Hospital Blood by Automated count ID Date Data Source [id number] 12/16/2018 08:01:00 AM EDT [facility] Value Range Interpretation Description Data Sup porting Code Source(s) Document(s ) Phosphate 2.8 mg/dL [facility] [facility] [Mass/volume] Hospital in Serum or Plasma ID Date Data Source [id number] 12/16/2018 08:01:00 AM EDT [facility] Name Value Range Interpretation Description Data Sup porting Code Source(s) Document(s ) Bilirubin.d < 0.1 [facility] irect mg/dL Hospital [Mass/volum e] in Serum or Plasma ID Date Data Source [id number] 12/16/2018 08:01:00 AM [facility] UNITS ARE IN ml/min/1.73m2.IF PATIENT IS -[place], MULTIPLY REPORTED RESULT BY 1.21. Name Value Range Interpretation Description Data Sup porting Code Source(s) Document(s ) Glomerular > 60 [facility] filtration mL/min Hospital rate/1.73 sq M.predicted [Volume Rate/Area] in Serum or Plasma by Creatinine-bas ed formula (MDRD) ID Date Data Source [id number] 12/16/2018 08:01:00 AM [facility] Name Value Range Interpretation Description Data Sup porting Code Source(s) Document(s ) Phosphate 2.8 mg/dL [facility] [facility] [Mass/volume] Hospital in Serum or Plasma ID Date Data Source [id number] 12/16/2018 08:01:00 AM [facility] Name Value Range Interpretation Description Data Sup porting Code Source(s) Document(s ) Magnesium 1.3 mg/dL [facility] [facility] [Mass/volume] Hospital in Serum or Plasma ID Date Data Source [id number] 12/16/2018 08:01:00 AM [facility] Name Value Range Interpretation Description Data Sup porting Code Source(s) Document(s ) Aspartate 15 U/L [facility] aminotransferase [place] [Enzymatic Hospital activity/volume] in Serum or Plasma ID Date Data Source [id number] 12/16/2018 08:01:00 AM [facility] Name Value Range Interpretation Description Data Sup porting Code Source(s) Document(s ) Alanine 15 U/L [place] aminotransferase [place] [Enzymatic Hospital activity/volume] in Serum or Plasma ID Date Data Source [id number] 12/16/2018 08:01:00 AM [facility] Name Value Range Interpretation Description Data Sup porting Code Source(s) Document(s ) Alkaline 145 U/L [facility] phosphatase Hospital [Enzymatic activity/volume ] in Serum or Plasma ID Date Data Source [id number] 12/[facility] Interpretation Description Data Sup porting Code Source(s) Document(s ) Bilirubin.d < 0.1 [facility] irect mg/dL Hospital [Mass/volum e] in Serum or Plasma ID Date Data Source [id number] 12/16/2018 [facility] Name Value Range Interpretation Description Data Sup porting Code Source(s) Document(s ) Bilirubin.t 0.2 mg/dL [facility] [Mass/volum e] in Serum or Plasma ID Date Data Source [id number] 12/16/2018 08:01:00 AM [facility] Name Value Range Interpretation Code Description Data Jackie rce(s) Supporting Document(s ) Albumin/Glob 1.0 [facility] [Mass Hospital Ratio] in Serum or Plasma ID Date Data Source [id number] 12/16/2018 08:01:00 AM [facility] Name Value Range Interpretation Description Data Sup porting Code Source(s) Document(s ) Albumin 3.3 g/dL [facility] [facility] [Mass/volume Hospital ] in Serum or Plasma ID Date Data Source [id number] 12/16/2018 08:01:00 AM [facility] Name Value Range Interpretation Description Data Sup porting Code Source(s) Document(s ) Protein 6.6 g/dL [facility] [Mass/volume Hospital ] in Serum or Plasma ID Date Data Source [id number] 12/16/2018 08:01:00 AM [facility] UNITS ARE IN ml/min/1.73m2.IF PATIENT IS -[place], MULTIPLY REPORTED RESULT BY 1.21. Name Value Range Interpretation Description Data Sup porting Code Source(s) Document(s ) Glomerular > 60 [facility] filtration mL/min Hospital rate/1.73 sq M.predicted [Volume Rate/Area] in Serum or Plasma by Creatinine-bas ed formula (MDRD) ID Date Data Source [id number] 12/16/2018 08:01:00 AM [facility] Name Value Range Interpretation Code Description Data Supporting Source(s) Document(s ) NUCLEATED RBCS 0.0 % [facility] (AUTO Hospital DIFF%)DIS ID Date Data Source [id number] 12/15/2018 10:52:00 AM [facility] TEST PERFORMED BY [employer] [facility] ULTRA SENSITIVE CENTAUR CHEMILUMINESCENCE METHOD. Name Value Range Interpretation Description Data Sup porting Code Source(s) Document(s ) Troponin 0.01 [facility] I.cardiac ng/mL Hospital [Mass/volume ] in Serum or Plasma ID Date Data Source [id number] 12/12/2018 07:31:00 AM [facility] Name Value Range Interpretation Description Data Sup porting Code Source(s) Document(s ) Bacteria No growth [facility] identified in Hospital Blood by Culture ID Date Data Source [id number] 12/11/2018 06:54:00 AM [facility] Name Value Range Interpretation Description Data Sup porting Code Source(s) Document(s ) Procalcitonin 0.2 [facility] [Mass/volume] in ng/mL Hospital Serum or Plasma ID Date Data Source [id number] 12/07/2018 07:11:00 PM [facility] Name Value Range Interpretation Description Data Sup porting Code Source(s) Document(s ) MEAN 80.0 fL [facility] CORPUSCULAR Hospital VOLUME ID Date Data Source [id number] 12/07/2018 [facility] Name Value Range Interpretation Description Data Sup porting Code Source(s) Document(s ) MEAN 80.0 fL [facility] VOLUME ID Date Data Source [id number] 12/07/2018 08:40:00 AM [facility] ADA RECOMMENDATIONS: NON-DIABETES: 4.0-6.0% CONTROLLED DIABETES: 6.0-8.0% UNCONTROLLED DIABETE S: UP TO 20%RECOMMENDED ADA RESULT FOR THERAPY: HEMOGLOBIN A1C RESULT LESS FRANK N 7%.NOTE: METHOD CHANGE EFFECTIVE 11/06/14. Name Value Range Interpretation Description Data Sup porting Code Source(s) Document(s ) Hemoglobin 7.8 % [facility] A1c/Hemoglobin. Hospital total in Blood ID Date Data Source [id number] 12/07/2018 08:40:00 AM [facility] ADA RECOMMENDATIONS: NON-DIABETES: 4.0-6.0% CONTROLLED DIABETES: 6.0-8.0% UNCONTROLLED DIABETE S: UP TO 20%RECOMMENDED ADA RESULT FOR THERAPY: HEMOGLOBIN A1C RESULT LESS FRANK N 7%.NOTE: METHOD CHANGE EFFECTIVE 11/06/14. Name Value Range Interpretation Description Data Sup porting Code Source(s) Document(s ) Hemoglobin 7.8 % [facility] A1c/Hemoglobin. Hospital total in Blood ID Date Data Source [id number] 12/06/2018 02:05:00 PM [facility] CUT-OFF >= 200 NG/ML. Name Value Range Interpretation Description Data Sup porting Code Source(s) Document(s ) BENZODIAZEPINES NEGATIVE [facility] (UR) [place] [facility] ID Date Data Source [id number] 12/06/2018 02:05:00 PM [facility] CUT-OFF >= 200 NG/ML. Name Value Range Interpretation Description Data Sup porting Code Source(s) Document(s ) BARBITURATES NEGATIVE [facility] [facility] (UR) Hospital ID Date Data Source [id number] 12/06/2018 02:05:00 PM EDT [facility] CUT-OFF >= 1000 NG/ML. Name Value Range Interpretation Description Data Sup porting Code Source(s) Document(s ) AMPHETAMINES NEGATIVE [facility] [facility] (UR) Hospital ID Date Data Source [id number] 12/06/2018 02:05:00 PM EDT [facility] CUT-OFF >= 25 NG/ML.THE FINDINGS OF [...] rce(s) Supporting Document(s ) PCP (UR) NEGATIVE [facility] Hospital ID Date Data Source [id number] 12/06/2018 02:05:00 PM EDT [facility] CUT-OFF >= 50 NG/ML. Name Value Range Interpretation Code Description Data Jackie rce(s) Supporting Document(s ) THC (UR) NEGATIVE [facility] Hospital ID Date Data Source [id number] 12/06/2018 02:05:00 PM EDT [facility] CUT-OFF >= 300 NG/ML. Name Value Range Interpretation Description Data Sup porting Code Source(s) Document(s ) OPIATES (UR) POSITIVE [facility] Hospital ID Date Data Source [id number] 12/06/2018 02:05:00 PM EDT [facility] CUT-OFF >= 300 NG/ML. Name Value Range Interpretation Description Data Sup porting Code Source(s) Document(s ) COCAINE (UR) NEGATIVE [facility] Hospital ID Date Data Source [id number] 12/06/2018 02:05:00 PM EDT [facility] CUT-OFF >= 200 NG/ML. Name Value Range Interpretation Description Data Sup porting Code Source(s) Document(s ) BENZODIAZEPINES NEGATIVE [facility] (UR) [place] [facility] ID Date Data Source [id number] 12/06/2018 02:05:00 PM EDT [facility] CUT-OFF >= 200 NG/ML. Name Value Range Interpretation Description Data Sup porting Code Source(s) Document(s ) BARBITURATES NEGATIVE [facility] [facility] (UR) Hospital ID Date Data Source [id number] 12/06/2018 02:05:00 PM EDT [facility] CUT-OFF >= 1000 NG/ML. Name Value Range Interpretation Description Data Sup porting Code Source(s) Document(s ) AMPHETAMINES NEGATIVE [facility] (UR) Hospital ID Date Data Source [id number] 12/06/2018 02:05:00 PM EDT [facility] CUT-OFF >= 25 NG/ML.THE FINDINGS OF [...] rce(s) Supporting Document(s ) PCP (UR) NEGATIVE [facility] Hospital ID Date Data Source [id number] 12/06/2018 02:05:00 PM EDT [facility] CUT-OFF >= 50 NG/ML. Name Value Range Interpretation Code Description Data Jackie rce(s) Supporting Document(s ) THC (UR) NEGATIVE [facility] Hospital ID Date Data Source [id number] 12/06/2018 02:05:00 PM EDT [facility] CUT-OFF >= 300 NG/ML. Name Value Range Interpretation Description Data Sup porting Code Source(s) Document(s ) OPIATES (UR) POSITIVE [facility] Hospital ID Date Data Source [id number] 12/06/2018 02:05:00 PM [facility] CUT-OFF >= 300 NG/ML. Name Value Range Interpretation Description Data Sup porting Code Source(s) Document(s ) COCAINE (UR) NEGATIVE [facility] Hospital ID Date Data Source [id number] 12/06/2018 01:57:00 PM EDT [facility] Name Value Range Interpretation Description Data Sup porting Code Source(s) Document(s ) Erythrocytes 3-5 [facility] [facility] [#/area] in /[HPF] Hospital Urine sediment by Microscopy high power field ID Date Data Source [id number] 12/06[facility] Description Data Sup porting Code Source(s) Document(s ) Leukocytes 0-3 [facility] [facility] [#/area] in /[HPF] Hospital Urine sediment by Microscopy high power field ID Date Data Source [id number] 12/06/2018 01:57:00 PM [facility] Name Value Range Interpretation Description Data Sup porting Code Source(s) Document(s ) Leukocyte NEGATIVE [facility] Hospital [Presence] in Urine by Test strip ID Date Data Source [id number] 12/06[facility] Value Range Interpretation Description Data Sup porting Code Source(s) Document(s ) URINE NEGATIVE [facility] Hospital ID Date Data Source [id number] 12/06/2018 [facility] Name Value Range Interpretation Description Data Sup porting Code Source(s) Document(s ) Erythrocytes TRACE [facility] [facility] [#/volume] in Hospital Urine by Test strip ID Date Data Source [id number] 12/06/2018 01:57:00 PM EDT [facility] Name Value Range Interpretation Code Description Data Jackie rce(s) Supporting Document(s ) Bilirubin. NEGATIVE [facility] total Hospital [Presence] in Urine by Test strip ID Date Data Source [id number] 12/06/2018 01:57:00 PM EDT [facility] Name Value Range Interpretation Description Data Sup porting Code Source(s) Document(s ) Urobilinogen 0.2 [facility] [Units/volume] mg/dL Hospital in Urine by Test strip ID Date Data Source [id number] 12/06/2018 01:57:00 PM EDT [facility] Name Value Range Interpretation Code Description Data Jackie rce(s) Supporting Document(s ) Ketones TRACE [facility] [facility] [Mass/volume Hospital ] in Urine by Test strip ID Date Data Source [id number] 12/06/2018 01:57:00 PM EDT [facility] Name Value Range Interpretation Code Description Data Jackie rce(s) Supporting Document(s ) Glucose 2+ [facility] [Mass/volume Hospital ] in Urine by Test strip ID Date Data Source [id number] 12/06/2018 01:57:00 PM EDT [facility] Name Value Range Interpretation Code Description Data Jackei rce(s) Supporting Document(s ) Protein 3+ [facility] [Presence] Hospital in Urine by Test strip ID Date Data Source [id number] 12/06/2018 01:57:00 PM EDT [facility] Name Value Range Interpretation Code Description Data Jackie rce(s) Supporting Document(s ) pH of Urine 7.0 [facility] by Test Hospital strip ID Date Data Source [id number] 12/06/2018 01:57:00 PM EDT [facility] Name Value Range Interpretation Code Description Data Supporting Source(s) Document(s ) Specific 1.022 [facility] gravity of Hospital Urine by Test strip ID Date Data Source [id number] 12/06/2018 01:57:00 PM EDT [facility] Name Value Range Interpretation Description Data Sup porting Code Source(s) Document(s ) Clarity in Urine CLEAR [facility] by Refractometry Hospital automated ID Date Data Source [id number] 12/06/2018 01:57:00 PM EDT [facility] Name Value Range Interpretation Code Description Data Jackie rce(s) Supporting Document(s ) Color of YELLOW [facility] Urine Hospital ID Date Data Source [id number] 12/06/2018 09:24:00 AM EDT [facility] Value Range Interpretation Description Data Sup porting Code Source(s) Document(s ) Lactate 0.8 [facility] [place] [Moles/volum mmol/L Hospital e] in Serum or Plasma ID Date Data Source [id number] 12/06/2018 07:51:00 AM EDT [facility] Name Value Range Interpretation Code Description Data Jackie rce(s) Supporting Document(s ) Lipase 15 U/L [facility] [Enzymatic Hospital activity/vo lume] in Serum or Plasma ID Date Data Source [id number] 12/06/2018 07:51:00 AM EDT [facility] Name Value Range Interpretation Code Description Data Jackie rce(s) Supporting Document(s ) Cells 100 [facility] Counted Hospital Total [#] in Blood ID Date Data Source [id number] 12/06/2018 07:51:00 AM EDT [facility] Name Value Range Interpretation Code Description Data Supporting Source(s) Document(s ) PLATELET NORMAL [facility] COMMENT Hospital ID Date Data Source [id number] 12/06/2018 07:51:00 AM EDT [facility] Name Value Range Interpretation Code Description Data Jackie rce(s) Supporting Document(s ) HYPOCHROMIA 2+ [facility] Hospital ID Date Data Source [id number] 12/06/2018 07:51:00 AM EDT [facility] Name Value Range Interpretation Code Description Data Jackie rce(s) Supporting Document(s ) MICROCYTOSIS 1+ [facility] ID Date Data Source [id number] 12/06/2018 07:51:00 AM EDT [facility] Name Value Range Interpretation Code Description Data Jackie rce(s) Supporting Document(s ) ANISOCYTOSIS 2+ [facility] ID Date Data Source [id number] 12/06/2018 07:51:00 AM EDT [facility] Value Range Interpretation Description Data Sup porting Code Source(s) Document(s ) Monocytes 0.28 [facility] [#/volume] in 10*3/uL Hospital Blood by Manual count ID Date Data Source [id number] 12/06/2018 07:51:00 AM EDT [facility] Name Value Range Interpretation Description Data Sup porting Code Source(s) Document(s ) Lymphocytes 1.11 [facility] [#/volume] in 10*3/uL Hospital Blood by Manual count ID Date Data Source [id number] 12/06/2018 07:51:00 AM EDT [facility] Name Value Range Interpretation Description Data Sup porting Code Source(s) Document(s ) Neutrophils 12.51 [facility] [#/volume] in 10*3/uL Hospital Blood by Manual count ID Date Data Source [id number] 12/06/2018 07:51:00 AM EDT [facility] Name Value Range Interpretation Description Data Sup porting Code Source(s) Document(s ) Monocytes/100 2 % [facility] leukocytes in Hospital Blood by Manual count ID Date Data Source [id number] 12/06/2018 07:51:00 AM EDT [facility] Name Value Range Interpretation Description Data Sup porting Code Source(s) Document(s ) Lymphocytes/100 8 % [facility] leukocytes in Hospital Blood by Manual count ID Date Data Source [id number] 12/06/2018 07:51:00 AM EDT [facility] Name Value Range Interpretation Description Data Sup porting Code Source(s) Document(s ) Neutrophils/100 90 % [facility] leukocytes in Hospital Blood by Manual count ID Date Data Source [id number] 12/06/2018 05:47:00 AM EDT [facility] Name Value Range Interpretation Description Data Sup porting Code Source(s) Document(s ) Methicillin PATIENT IS White resistant PRESUMED [place] [facility] POSITIVE FOR Hospital aureus (MRSA) MRSA DNA [Presence] COLONIZATION in Unspecified specimen by Probe and target amplification method Methicillin MRSA TARGET White resistant DNA DETECTED [place] [facility] Hospital aureus (MRSA) DNA [Presence] in Unspecified specimen by Probe and target amplification method ID Date Data Source [id number] [facility] Interpretation Description Data Sup porting Code Source(s) Document(s ) Methicillin MRSA TARGET White resistant DNA DETECTED [place] [facility] Hospital aureus (MRSA) DNA [Presence] in Unspecified specimen by Probe and target amplification method Methicillin PATIENT IS White resistant PRESUMED [place] [facility] POSITIVE FOR Hospital aureus (MRSA) MRSA DNA [Presence] COLONIZATION in Unspecified specimen by Probe and target amplification method ID Date Data Source [id number] 12/06/2018 05:04:00 AM [facility] THERAPEUTIC RANGES:UNFRACTIONATED HEPARI N THERAPY: 60-90 SECONDSARGATROBAN THERAPY: 49-99 SECONDS Name Value Range Interpretation Description Data Sup porting Code Source(s) Document(s ) aPTT in 31.7 s [facility] Platelet poor Hospital plasma by Coagulation assay ID Date Data Source [id number] 12/06/2018 05:04:00 AM EDT [facility] THERAPEUTIC RANGE FOR STANDARD ORALANTIC OAGULANT THERAPY: 2.0-3.0THERAPEUTIC RANGE FOR HIGH DOSE ORALANTICOAGULANT THERAPY (MECHANICAL HEARTVALVE REPLACEMENT): 2.5-3.5 Name Value Range Interpretation Description Data Sup porting Code Source(s) Document(s ) INR in Platelet 1.3 [facility] plasma by Hospital Coagulation assay ID Date Data Source [id number] 12/06/2018 05:04:00 AM EDT [facility] HEMOLYZED SPECIMEN- HEMOLYSIS CAUSES ELLEN RTENING OF PT AND APTT RESULTS Name Value Range Interpretation Description Data Sup porting Code Source(s) Document(s ) PT panel - 14.4 s [facility] Platelet [facility] plasma by Coagulation assay Procedure Social History Code Duration Value Status Description Data Source(s ) Smoking 06/23/2019 Never smoked completed Never smoked [place] Genaro al[facility] - 12:46:08 AM EDT tobacco tobacco (finding) [facility] Smoking 06/23/2019 Never smoked completed Never smoked [place] He alth - 12:46:08 AM EDT tobacco tobacco (finding) [facility] Smoking 06/23/2019 Never smoked completed Never smoked [place] [facility] - 12:46:08 AM EDT tobacco tobacco (finding) [facility] Smoking 06/04/2019 Never smoked completed Never smoked [place] [facility] alth - 08:41:21 PM EST tobacco tobacco (finding) [facility] Smoking 06/04/2019 Never smoked completed Never smoked [place] He alth - 08:41:21 PM EST tobacco tobacco (finding) [facility] Smoking 06/04/2019 Never smoked completed Never smoked [place] He alth - 08:41:21 PM EST tobacco tobacco (finding) [facility] Smoking 06/04/2019 Never smoked completed Never smoked [place] He alth - 08:41:21 PM EST tobacco tobacco (finding) [facility] Smoking 06/04/2019 Never smoked completed Never smoked [place] He alth - 08:41:21 PM EST tobacco tobacco (finding) [facility] Smoking 06/04/2019 Never smoked completed Never smoked Dannielle villatoro - 08:41:21 PM EST tobacco tobacco (finding) [facility] Smoking 06/04/2019 Never smoked [...] - 200 Normal (applies to 98.5 [degF] [facility] temperature non-numeric Health Syste m results) [...] oximetry Body surface 2.3 m2 2.3 m2 [facility] area Derived Health Syste m from formula Body mass index 27.7 kg/m2 27.7 kg/m2 [facility] ([facility] [Ratio] Health Syst em Body weight 103.41 kg 103.41 kg [facility] Body height 193.[address] [facility] Glucose 244 mg/dL 65-100 Above high normal 244 mg/dL [place] [Moles/volume] mg/dL Health - in Capillary [place] blood by [facility] Oxygen 98 % 94-100 % Normal (applies to 98 % [place] saturation in non-numeric Health - Blood results) [place] Postductal by [facility] Pulse oximetry Center Diastolic blood 68 mm[Hg] 60-90 Normal (applies to 68 mm[Hg] [facility] pressure mmHg non-numeric Health - results) [facility] Systolic blood 120 mm[Hg] 90-130 Normal (applies to 120 mm[Hg] [place] pressure mmHg non-numeric Health - results) [facility] Vital Signs Dr. Cl Spicer Reported To [facility] Oxygen therapy [place] [Minimum Data Health - Set] [facility] Mean blood 133 mm[Hg] 133 mm[Hg] [place] pressure by [facility] Oxygen 99 % 94-100 % Normal (applies to 99 % [place] saturation in non-numeric Health - Blood results) [place] Postductal by [facility] Pulse oximetry Center Diastolic blood 106 mm[Hg] 60-90 106 mm[Hg] [place] pressure mmHg [facility] Systolic blood 186 mm[Hg] 90-130 186 mm[Hg] [place] pressure mmHg [facility] Respiratory 18 br/min 14-20 Normal (applies to 18 br/min [place] rate br/min non-numeric Health - results) [facility] Heart rate 98 bpm 60-100 Normal (applies to 98 bpm [place] bpm non-numeric Health - results) [facility] Oral 97.1 [degF] 96.4-99.1 Normal (applies to 97.1 [degF] [place] n[place] temperature DegF non-numeric Health - results) [facility] Glucose 178 mg/dL 65-100 Above high normal 178 mg/dL [place] [Moles/volume] mg/dL Health - in Capillary [place] blood by [facility] [place] Glucose 178 mg/dL 65-100 Above high normal 178 mg/dL [place] [Moles/volume] mg/dL Health - in Capillary [place] blood by [facility] [place] Respiratory 18 br/min 14-20 Normal (applies to 18 br/min [place] rate br/min non-numeric Health - results) [facility] Oral 98.2 [degF] 96.4-99.1 Normal (applies to 98.2 [degF] Nuva nce temperature DegF non-numeric Health - results) [facility] Oxygen 99 % 94-100 % Normal (applies to 99 % [place] saturation in non-numeric Health - Blood results) [place] Postductal by Hospital Pulse oximetry Center Heart rate 97 bpm 60-100 Normal (applies to 97 bpm [place] e bpm non-numeric Health - results) [facility] Mean blood 123 mm[Hg] 123 mm[Hg] [place] pressure by [facility] Diastolic blood 94 mm[Hg] 60-90 94 mm[Hg] [place] pressure mmHg [facility] Systolic blood 180 mm[Hg] 90-130 Above high normal 180 mm[Hg] Nuv an[place] pressure mmHg [facility] Mean blood 125 mm[Hg] 125 mm[Hg] [place] pressure by [facility] Oxygen therapy [place] [Minimum Data Health - Set] [facility] Blood pressure [place] measurement Health - [facility] Respiratory 18 br/min 14-20 Normal (applies to 18 br/min [place] rate br/min non-numeric Health - results) [facility] Heart rate 103 bpm 60-100 Above high normal 103 bpm [place] bpm [facility] Oral 98.7 [degF] 96.4-99.1 Normal (applies to 98.7 [degF] Nuva nce temperature DegF non-numeric Health - results) [facility] Oxygen Therapy [place] Activity [facility] Oxygen therapy [place] [Minimum Data Health - Set] [facility] Body mass index 27.38 kg/m2 27.38 kg/m2 [place] (BMI) [Ratio] [facility] Body weight 102 kg 102 kg [place] Measured [facility] Body height 193 cm 193 cm [place] [facility] Body mass index 27.38 kg/m2 27.38 kg/m2 [place] (BMI) [Ratio] [facility] Glucose 279 mg/dL 65-100 Above high normal 279 mg/dL [place] [Moles/volume] mg/dL Health - in Capillary [place] blood by [facility] Oxygen therapy [place] [Minimum Data Health - Set] [facility] Mean blood 110 mm[Hg] 110 mm[Hg] [place] pressure by Health - Noninvasive [facility] Oxygen therapy [place] [Minimum Data Health - Set] [facility] Blood pressure [place] measurement Health - site [facility] Diastolic blood 83 mm[Hg] 60-90 Normal (applies to 83 mm[Hg] [facility] pressure mmHg non-numeric Health - results) [facility] Systolic blood 165 mm[Hg] 90-130 Above high normal 165 mm[Hg] [place] pressure mmHg Health - [facility] Respiratory 18 br/min 14-20 Normal (applies to 18 br/min [place] [facility] rate br/min non-numeric Health - results) [facility] Heart rate 64 bpm 60-100 Normal (applies to 64 bpm [place] e bpm non-numeric Health - results) [facility] Oral 98.6 [degF] 96.4-99.1 Normal (applies to 98.6 [degF] [facility] n[facility] temperature DegF non-numeric Health - results) [facility] Glucose 130 mg/dL 65-100 Above high normal 130 mg/dL [place] [Moles/volume] mg/dL Health - in Capillary [place] blood by [facility] [place] Glucose 130 mg/dL 65-100 Above high normal 130 mg/dL [place] [Moles/volume] mg/dL Health - in Capillary [place] blood by [facility] [place] Respiratory 18 br/min 14-20 Normal (applies to 18 br/min [place] rate br/min non-numeric Health - results) [facility] Oral 98.2 [degF] 96.4-99.1 Normal (applies to 98.2 [degF] [facility] n[facility] temperature DegF non-numeric Health - results) [facility] Oxygen 99 % 94-100 % Normal (applies to 99 % [place] saturation in non-numeric Health - Blood results) [place] Postductal by [facility] Pulse oximetry Center Heart rate 60 bpm 60-100 Normal (applies to 60 bpm [place] e bpm non-numeric Health - results) [facility] Mean blood 92 mm[Hg] 92 mm[Hg] [place] pressure by [facility] Diastolic blood 75 mm[Hg] 60-90 Normal (applies to 75 mm[Hg] N [facility] pressure mmHg non-numeric Health - results) [facility] Systolic blood 125 mm[Hg] 90-130 Normal (applies to 125 mm[Hg] Nu lyons pressure mmHg non-numeric Health - results) [facility] Blood pressure [place] measurement [facility] Oxygen therapy [place] [Minimum Data Health - Set] [facility] Diastolic blood 84 mm[Hg] 60-90 Normal (applies to 84 mm[Hg] N [facility] pressure mmHg non-numeric Health - results) [facility] Systolic blood 154 mm[Hg] 90-130 Above high normal 154 mm[Hg] Nuv an[place] pressure mmHg [facility] Mean blood 92 mm[Hg] 92 mm[Hg] [place] pressure by [facility] Oxygen 99 % 94-100 % Normal (applies to 99 % [place] e saturation in non-numeric Health - Blood results) [place] Postductal by [facility] Pulse oximetry Center Respiratory 18 br/min 14-20 Normal (applies to 18 br/min [place] rate br/min non-numeric Health - results) [facility] Heart rate 74 bpm 60-100 Normal (applies to 74 bpm [place] e bpm non-numeric Health - results) [facility] Oral 99.3 [degF] 96.4-99.1 Above high normal 99.3 [degF] [facility] [facility] temperature DegF [facility] Oxygen 98 % 94-100 % Normal (applies to 98 % [place] e saturation in non-numeric Health - Blood results) [place] Postductal by [facility] Pulse oximetry Center Vital Signs Dr. Haile. Dr. Haile. Dannielle Reported To Additional dose Additional dose Hea lth - of Hydrazaline of Hydrazaline [place] 25mg po ordered 25mg po ordered [facility] Blood pressure [place] measurement [facility] Vital Signs PA Cortez Parchen PA [place] Landry [place] Reported To [facility] Body mass index 27.79 kg/m2 27.79 kg/m2 Dannielle (BMI) [Ratio] [facility] Daily Weight 103.5 kg 103.5 kg [place] [facility] Heart rate 105 bpm 60-100 Above high normal 105 bpm [place] Peripheral bpm Health - artery by [facility] Heart rate 100 bpm 60-100 Normal (applies to 100 bpm [place] e Peripheral bpm non-numeric Health - artery by results) [facility] Heart rate 96 bpm 60-100 Normal (applies to 96 bpm [place] e Peripheral bpm non-numeric Health - artery by results) [facility] Body weight 103.5 kg 103.5 kg [place] Measured [facility] Body height 193 cm 193 cm [facility] Inhaled oxygen 2 L/min 2 L/min [facility] flow rate [facility] Inhaled oxygen 2 L/min 2 L/min [facility] flow rate [facility] Inhaled oxygen 2 L/min 2 L/min [facility] flow rate [facility] Oxygen Therapy [place] Activity [facility] Body mass index 27.33 kg/m2 27.33 kg/m2 [place] (BMI) [Ratio] [facility] Body weight 101.82 kg 101.82 kg [place] Me[place] [facility] Body height 193 cm 193 cm [facility] Body mass index 27.33 kg/m2 27.33 kg/m2 [place] (BMI) [Ratio] [facility] Diastolic blood 92 mm[Hg] 92 mm[Hg] [facility] pressure Hospital Systolic blood 202 mm[Hg] 202 mm[Hg] [facility] pressure Hospital Respiratory 18 /min 18 /min [facility] Hospital Heart rate 107 /min 107 /min [facility] Body 37.35822 Fide 37.68857 Fide [facility] temperature Hospital Body 99.1 [degF] 99.1 [degF] [facility] Body mass index 28.0 kg/m2 28.0 kg/m2 [facility] (BMI) [Ratio] Hospital Body weight 224.47 [lb_av] 224.47 [lb_av] [facility] Body 37 Fide 0 - 99.9 Normal (applies to 37 [place] temperature non-numeric Health Syste m results) Body 98.7 [degF] 0 - 200 Normal (applies to 98.7 [degF] [facility] temperature non-numeric Health Syste m results) [...] results) Body surface 2.2 m2 2.2 m2 [facility] area Derived Health Syste m from formula Body mass index 27.4 kg/m2 27.4 kg/m2 [facility] (BMI) [Ratio] Health Syst em Body weight 99.79 kg 99.79 kg [facility] Body height 190.5 cm 190.5 cm [facility] Body surface 2.3 m2 2.3 m2 [facility] area Derived Health Syste m from formula Body mass index 28.4 kg/m2 28.4 kg/m2 [facility] (BMI) [Ratio] Health Syst em Body weight 103.41 kg 103.41 kg [facility] Body height 190.[address] [facility] Body 97.8 [degF] 0 - 200 Normal (applies to 97.8 [degF] [facility] temperature non-numeric Health Syste m results) Body 36.5 Fide 0 - 99.9 Normal (applies to 36.5 [place] temperature non-numeric Health Syste m results) Diastolic blood 83 mm[Hg] 0 - 999 Normal (applies to 83 mm[Hg] [facility] pressure non-numeric Health System results) Systolic blood 151 mm[Hg] 0 - 999 Above high normal 151 mm[Hg] [facility] Oxygen 100 % 0 [...] - 999 Normal (applies to 98 % [facility] iore saturation in non-numeric Health Sys [facility] Arterial blood results) by Pulse oximetry Respiratory 17 0 - 999 Normal (applies to 17 Ludwig janny rate non-numeric Health System results) Heart rate 88 0 - 999 Normal (applies to 88 [place] non-numeric Health System results) Body surface 2.3 m2 2.3 m2 [facility] area Derived Health Syste m from formula Body mass index 28.4 kg/m2 28.4 kg/m2 [facility] (BMI) [Ratio] Health Syst em Body weight 103.41 kg 103.41 kg [facility] Body height 190.5 cm 190.5 cm [facility] Body surface 2.3 m2 2.3 m2 [facility] area Derived Health Syste m from formula Body mass index 28.2 kg/m2 28.2 kg/m2 [facility] (BMI) [Ratio] Health Syst em Body weight 102.51 kg 102.51 kg [facility] Body height 190.5 cm 190.5 cm [facility] Body 98 [degF] 0 - 200 [...] results) Diastolic blood 82 mm[Hg] 82 mm[Hg] [facility] pressure Hospital Systolic blood 145 mm[Hg] 145 mm[Hg] [facility] pressure Hospital Respiratory 19 /min 19 /min [facility] Heart rate 95 /min 95 /min [facility] Body 36.25641 Fdie 36.33259 Fide [facility] Body 98.1 [degF] 98.1 [degF] [facility] Body mass index 27.0 kg/m2 27.0 kg/m2 [facility] (BMI) [Ratio] Hospital Body weight 221.45 [lb_av] 221.45 [lb_av] [facility] Diastolic blood 76 mm[Hg] 76 mm[Hg] [facility] pressure Hospital Systolic blood 125 mm[Hg] 125 mm[Hg] [facility] pressure [facility] Respiratory 18 /min 18 /min [facility] Heart rate 83 /min 83 /min [facility] Body 36.20199 Fide 36.47950 Fide [facility] Body 97.6 [degF] 97.6 [degF] [facility] Body mass index 28.0 kg/m2 28.0 kg/m2 [facility] (BMI) [Ratio] Hospital Body weight 220.46 [lb_av] 220.46 [lb_av] [facility] Diastolic blood 80 mm[Hg] 80 mm[Hg] [facility] pressure Hospital Systolic blood 149 mm[Hg] 149 mm[Hg] [facility] pressure Hospital Respiratory 17 /min 17 /min [facility] Heart rate 91 /min 91 /min [facility] Body 36.03905 Fide 36.88826 Fide [facility] Hospital Body 98.2 [degF] 98.2 [degF] [facility] Body mass index 29.0 kg/m2 29.0 kg/m2 [facility] ins (BMI) [Ratio] Hospital Body weight 229.28 [lb_av] 229.28 [lb_av] [facility] Diastolic blood 80 mm[Hg] 80 mm[Hg] [facility] ins pressure Hospital Systolic blood 138 mm[Hg] 138 mm[Hg] [facility] ns pressure Hospital Respiratory 18 /min 18 /min [place] rate Hospital Heart rate 100 /min 100 /min [facility] Body 36.46883 Fide 36.91234 Fide [facility] ns temperature Hospital Body 97.8 [degF] 97.8 [degF] [facility] Body mass index 29.0 kg/m2 29.0 kg/m2 [facility] ins (BMI) [Ratio] Hospital Body weight 226.48 [lb_av] 226.48 [lb_av] [facility] Patient Treatment Plan of Care Planned Activity Planned Date Details Description Data Source (s) Simethicone 80 MG Chewable 06/25/2019 [facility] - Tablet 09:57:00 AM EDT [facility] Acetaminophen 325 MG Oral 06/25/2019 [facility] 09:57:[facility] 20 MG Oral 06/10/2019 [facility] e Health - Tablet 09:09:00 AM EST [facility] Metoclopramide 10 MG Oral 06/10/2019 [facility] Health - Tablet 09:09:00 AM EST [facility] Hydralazine Hydrochloride 06/10/2019 [facility] - 25 MG Oral Tablet 09:09:00 AM EST [facility] carvedilol 6.25 MG Oral 06/10/2019 [facility] - Tablet 09:09:00 AM EST [facility] metformin 06/05/2019 [facility] - 01:15:00 AM EST [facility] Hydroxyzine Hydrochloride 03/12/2019 [facility] 50 MG Oral Tablet 05:14:09 AM EST System Lorazepam 1 MG Oral Tablet 03/08/2019 [facility] [Ativan] 08:37:45 PM EST System Lorazepam 1 MG Oral Tablet 02/24/2019 [facility] [Ativan] 02:02:37 AM EST System
--- NOTE | 2020-02-03 02:59 | PDOC ---
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 Patient frequent coffee ground emesis. Patient had about 12 episodes today. Pt explains that they do not know where his bleed is coming from. Pt also has associated pain everywhere and is demanding reglan, PPI, dilaudid. Pt denies fevers, chills, chest pain, sob, dysuria, urinary frequency, hematochezia, or black stools. PMH: DM, Gastroparesis, htn, duodenal adenoma Med: metformin Allergies: sesame seeds, hydromorphine. PSH: AKA on right leg Social: denies smoking drugs or alchohol GI: Dr. Joe PCP: Dr. Giles Pt after receiving 1 mg dilaudid went into apnea and desaturated into 80s. which required non rebreath oxygen. Patient still is adamant about having more dilaudid and believed he is fine. ROS GENERAL/CONSTITUTIONAL: No fever or chills. No weakness. HEAD, EYES, EARS, NOSE AND THROAT: No change in vision. No ear pain or discharge. No sore throat. CARDIOVASCULAR: +chest pain or shortness of breath RESPIRATORY: No cough, wheezing, or hemoptysis. GASTROINTESTINAL: + nausea, +vomiting, no diarrhea or constipation. GENITOURINARY: No dysuria, frequency, or change in urination. MUSCULOSKELETAL: No joint or muscle swelling or pain. No neck or back pain. SKIN: No rash NEUROLOGIC: No headache, vertigo, loss of consciousness, or change in strength/sensation. ENDOCRINE: No increased thirst. No abnormal weight change HEMATOLOGIC/LYMPHATIC: No anemia, easy bleeding, or history of blood clots. ALLERGIC/IMMUNOLOGIC: No hives or skin allergy. PE GENERAL: Awake, alert, and fully oriented, in no acute distress, diaphoresis. retching. carrying a bag of coffee ground emesis. HEAD: No signs of trauma, normocephalic, atraumatic EYES: PERRLA, EOMI, sclera anicteric, conjunctiva clear ENT: Auricles normal inspection, hearing grossly normal, nares patent, oropharynx clear without exudates. Moist mucosa NECK: Normal ROM, supple, no lymphadenopathy, JVD, or masses LUNGS: No distress, speaks full sentences, clear to auscultation bilaterally HEART: Regular rate and rhythm, normal S1 and S2, no murmurs, rubs or gallops, peripheral pulses normal and equal bilaterally. ABDOMEN: Soft, nontender, normoactive bowel sounds. No guarding, no rebound. No masses EXTREMITIES : Normal inspection, Normal range of motion, no edema. right AKA NEUROLOGICAL: Cranial nerves II through XII grossly intact. Normal speech, no focal sensorimotor deficits SKIN: Warm, Dry, normal turgor, no rashes or lesions noted 02/03/20 05:21 02/03/20 06:21 Past History - Medical History Allergies/Adverse Reactions: Allergies Allergy/AdvReac Type Severity Reaction Status Date / Time sesame seed Allergy Verified 02/03/20 02:30 hydromorphone [From Dilaudid] AdvReac Verified 02/03/20 02:30 javi seed Allergy Uncoded 02/03/20 02:30 Home Medications: Ambulatory Orders Pantoprazole Sodium [Protonix -] 40 mg PO DAILY #30 tablet.ec 11/12/19 Sennosides [Senna -] 2 tab PO HS PRN #60 tablet 11/12/19 Acetaminophen [Tylenol .Regular Strength -] 650 mg PO Q4H PRN #90 tablet 12/06/19 Amlodipine Besylate [Norvasc -] 5 mg PO DAILY #30 tablet 12/06/19 Gabapentin [Neurontin -] 300 mg PO TID #90 capsule 12/06/19 Labetalol HCl [Normodyne -] 200 mg PO BID #60 tablet 12/06/19 Ondansetron [Zofran *Odt*] 4 mg SL Q6H PRN #30 tab 12/06/19 Pantoprazole Sodium [Protonix -] 40 mg PO DAILY #30 tab 12/06/19 Polyethylene Glycol 3350 [Miralax 119 gm Btl -] 17 gm PO TID #1 bottle 12/06/19 Metoclopramide HCl [Reglan -] 5 mg PO TIDAC PRN #90 tablet 01/09/20 COPD: No Diabetes: Yes GI Disorders: Yes (GASTROPARESIS) - Surgical History Orthopedic Surgery: Yes (right bka) - Psycho-Social/Smoking History Smoking History: Current some day smoker Have you smoked in the past 12 months: No Information on smoking cessation initiated: No - Substance Abuse Hx (Audit-C & DAST Scrn) How often the patient has a drink containing alcohol: Monthly or less Number of drinks the patient has on a typical day: 1 or 2 How often the patient has six or more drinks on one occasion: Less than monthly Score: In Men: 4 or > Positive; In Women: 3 or > Positive: 2 Screen Result (Pos requires Nsg. Audit-10AR): Negative In the last yr the pt used illegal drug/Rx for NonMed reason: No Score: Yes response is considered Positive: 0 Screen Result (Positive result requires Nsg. DAST-10): Negative *Physical Exam - Vital Signs Last Vital Signs Temp Pulse Resp BP Pulse Ox 98.2 F 109 H 19 135/98 99 02/03/20 02:27 02/03/20 02:27 02/03/20 02:27 02/03/20 02:27 02/03/20 02:27 ED Treatment Course - LABORATORY CBC & Chemistry Diagram: 02/03/20 04:00 02/03/20 04:00 Medical Decision Making - Medical Decision Making 02/03/20 04:23 Patient had minor rashes wtih hydromorphone. Chart was reviewed thoroughly. Patient is adamant about having dilaudid. 02/03/20 04:58 After given the second half of 0.5 mg hydromorphine, patient desat to the 80s. Yet, he still is adamant that he is ok, and wanted more morphine. 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 Med: regland, PPI, dilaudid 1 gram, 1L of LR. Imaging: chest CT, and abdomen CT noncontrast, chest xray. Bloodwork: cbc, cmp, trop. lactate, magesium. 02/03/20 05:29 Bloodwork: slightly elevated Lactate of 2.2. High alphos, CK . Cr 1.5 02/03/20 05:30 02/03/20 05:30 02/03/20 05:59 Patient refused rectal exam to check for occult stool blood. Risk and benefits were discussed. But patient refused. CT chest noncontrast is negative. CT abdomen noncontrast is negative. 02/03/20 06:11 mbmd sent. Plan to admit for gastroparesis and coffee ground emesis. 02/03/20 06:23 He didn't give urine. EKG showed vent rate 102, QTc 453, sinus tachycardia, left atria enlargement. 02/03/20 06:49 Patient felt better and improved. Sign out was given to day team. 02/03/20 06:50 Discharge - Discharge Information Problems reviewed: Yes Clinical Impression/Diagnosis: Gastroparesis, Coffee ground emesis Condition: Fair - Admission Yes - Follow up/Referral Referrals: Rosalind Giles MD [Primary Care Provider] - - Patient Discharge Instructions - Post Discharge Activity
--- NOTE | 2020-02-03 03:31 | PDOC ---
Attending Attestation - Resident Resident Name: Chang Lopez - ED Attending Attestation I have performed the following: I have examined & evaluated the patient, The case was reviewed & discussed with the resident, I agree w/resident's findings & plan - HPI HPI: 02/03/20 06:50 see resident hpi - Physicial Exam PE: 02/03/20 06:50 see resident exam - Medical Decision Making 02/03/20 06:50 54-year-old male with history of diabetes and gastroparesis complaining of abdominal pain and vomiting CT scan of the chest abdomen pelvis shows no significant acute abnormality Patient did have coffee-ground material in his vomitus, unfortunately he refused rectal exam Patient given antacids antiemetics and analgesia We will admit to medical service for further management Discharge - Discharge Information Problems reviewed: Yes Clinical Impression/Diagnosis: Gastroparesis, Coffee ground emesis Condition: Fair - Follow up/Referral Referrals: Rosalind Giles MD [Primary Care Provider] - - Patient Discharge Instructions - Post Discharge Activity
[2020-02-03] MEDS ORDERED: HYDROmorphone HCL CARPU-JECT 2 MG/1 ML DISP.SYRIN IVPUSH ONE (03:36)
[2020-02-03] MEDS ORDERED: PANTOPRAZOLE SODIUM 40 MG VIAL IVPUSH ONE (03:37)
[2020-02-03] MEDS ORDERED: METOCLOPRAMIDE HCL INJECTION 10 MG/2 ML VIAL IVPUSH ONE ×2 (03:37→13:10)
[2020-02-03] MEDS ORDERED: LACTATED RINGERS SOLUTION 1,000 ML IV STA (03:55)
[2020-02-03] MEDS ORDERED: PANTOPRAZOLE SODIUM 40 MG VIAL ONE (04:06)
[2020-02-03] MEDS ORDERED: METOCLOPRAMIDE HCL INJECTION 10 MG/2 ML VIAL ONE (04:06)
[2020-02-03 04:18] LABS: BASO % 0.4 % (0-2.0); HEMATOCRIT 36.4 % (35.4-49); HEMOGLOBIN 11.7 GM/dL (11.7-16.9); LYMPH % 14.9 % (8-40); MCH 25.5 pg (25.7-33.7); MCHC 32.2 g/dl (32.0-35.9); MEAN CELL VOLUME 79.3 fl (80-96); MEAN PLT VOLUME 8.6 fl (7.5-11.1); MONO % 3.4 % (3.8-10.2); NEUT % 80.3 % (42.8-82.8); PLATELET COUNT 293 K/MM3 (134-434)
[2020-02-03] MEDS ORDERED: HYDROmorphone HCl 2 MG/ML VIAL ONE (04:20)
[2020-02-03 04:36] LABS: POTASSIUM 4.3 mmol/L (3.5-5.1)
[2020-02-03 04:38] LABS: CALCIUM 9.5 mg/dL (8.5-10.1)
[2020-02-03 04:39] LABS: ALBUMIN 4.1 g/dl (3.4-5.0); BLOOD UREA NITROGEN 14.9 mg/dL (7-18)
[2020-02-03 04:42] LABS: CREATININE 1.5 mg/dL (0.55-1.3)
[2020-02-03 04:43] LABS: BILIRUBIN,TOTAL 0.4 mg/dL (0.2-1)
[2020-02-03 05:00] LABS: INR 0.93 (0.83-1.09); PROTHROMBIN TIME (PATIENT) 11.5 SEC (9.7-13.0)
[2020-02-03 05:02] LABS: ACTIVATED PTT 29.5 SECONDS (25.2-36.5); LIPASE 73 U/L (73-393); MAGNESIUM 2.1 mg/dL (1.8-2.4)
[2020-02-03 05:05] LABS: PHOSPHOROUS 2.4 mg/dL (2.5-4.9)
[2020-02-03 05:08] LABS: TOT PROT 8.9 g/dl (6.4-8.2)
[2020-02-03] MEDS: PANTOPRAZOLE SODIUM 80 MG in SODIUM CHLORIDE 100 ML IVPB SCH (05:30)
--- NOTE | 2020-02-03 07:21 | PDOC ---
*Physical Exam - Vital Signs Last Vital Signs Temp Pulse Resp BP Pulse Ox 98.2 F 102 H 20 168/103 H 100 02/03/20 02:27 02/03/20 05:30 02/03/20 05:30 02/03/20 05:30 02/03/20 05:30 - Physical Exam 02/03/20 07:20 S: 54yo M hx DM and multiple other comorbidities presents w/ coffee ground emesis. B: hx multiple admissions for coffee ground emesis. No bleeding/ulcers have been found on investigation. A: AAOx3. resting comfortably/NAD. VSS. Pt demanding dilaudid. R: admit. accepted by Jerry Mcmahan 02/06/20 12:58 ED Treatment Course - LABORATORY CBC & Chemistry Diagram: 02/05/20 07:24 02/05/20 07:24 - ADDITIONAL ORDERS Additional order review: Laboratory Results 02/03/20 02/03/20 02/03/20 04:00 04:00 04:00 PT with INR 11.50 INR 0.93 PTT (Actin FS) 29.5 Sodium Potassium Chloride Carbon Dioxide Anion Gap BUN Creatinine Est GFR (CKD-EPI)AfAm Est GFR (CKD-EPI)NonAf Random Glucose Lactic Acid 2.2 H* Calcium Phosphorus 2.4 L Magnesium 2.1 Total Bilirubin AST ALT Alkaline Phosphatase Creatine Kinase 481 H Creatine Kinase Index 0.4 CK-MB (CK-2) 2.0 Troponin I < 0.02 Total Protein Albumin Lipase 73 02/03/20 04:00 PT with INR INR PTT (Actin FS) Sodium 138 Potassium 4.3 Chloride 104 Carbon Dioxide 25 Anion Gap 9 BUN 14.9 Creatinine 1.5 H Est GFR (CKD-EPI)AfAm 60.30 Est GFR (CKD-EPI)NonAf 52.03 Random Glucose 156 H Lactic Acid Calcium 9.5 Phosphorus Magnesium Total Bilirubin 0.4 AST 22 ALT 26 Alkaline Phosphatase 128 H Creatine Kinase Creatine Kinase Index CK-MB (CK-2) Troponin I Total Protein 8.9 H Albumin 4.1 Lipase 02/03/20 04:00 RBC 4.60 MCV 79.3 L MCHC 32.2 RDW 16.0 H MPV 8.6 Neutrophils % 80.3 D Lymphocytes % 14.9 D Monocytes % 3.4 L Eosinophils % 1.0 Basophils % 0.4 - Medications Given in the ED: ED Medications Discontinued Medications Generic Name Dose Route Start Last Admin Trade Name Jaylon PRN Reason Stop Dose Admin Hydromorphone HCl 1 mg 02/03/20 03:36 02/03/20 04:28 Dilaudid Injection - IVPUSH 02/03/20 03:37 1 mg ONCE ONE Administration Lactated Ringer's 1,000 mls @ 1,000 mls/hr 02/03/20 03:55 02/03/20 04:50 Lactated Ringers Solution IV 02/03/20 04:54 1,000 mls/hr ONCE STA Administration Metoclopramide HCl 10 mg 02/03/20 03:37 02/03/20 04:20 Reglan Injection - IVPUSH 02/03/20 03:38 10 mg ONCE ONE Administration Pantoprazole Sodium 40 mg 02/03/20 03:37 02/03/20 04:20 Protonix Iv IVPUSH 02/03/20 03:38 40 mg ONCE ONE Administration Discharge - Discharge Information Problems reviewed: Yes Clinical Impression/Diagnosis: Gastroparesis, Coffee ground emesis Condition: Stable Disposition: HOME - Follow up/Referral - Patient Discharge Instructions - Post Discharge Activity
[2020-02-03] MEDS ORDERED: LACTATED RINGERS SOLUTION 1000 ML INFUS.BAG IV ONE (14:19)
[2020-02-03] MEDS ORDERED: D5-NS + 40 MEQ KCL - 40 MEQ/1,000 ML INFUS.BAG IV SCH (14:30)
--- OUTSIDE RECORDS SUMMARY | 2020-02-03 14:40 | XMS ---
:1965 Author Organization [facility] Care Team Providers Name Role Phone Namrata [...] Zaki, M Unavailable Unavailable Yardeni Unavailable Unavailable Gigiarindy, H Unavailable Unavailable MD Homero Unavailable Unavailable Cornelius CLINTON, Physician A Unavailable Unavailable MD Yelitza Unavailable Unavailable LUIS MIGUEL DOUGLASS Unavailable Unavailable Kenya Cervantes Unavailable Unavailable MD Deisy Unavailable Unavailable CANONICO Unavailable Unavailable Marizol CLINTON, Physician L Unavailable Unavailable Jeremie Unavailable Unavailable CHANTAL, N Unavailable Jon Back Unavailable Unavailable MD Deborah Unavailable Unavailable Fishman, R Unavailable Unavailable Adin, BLOCKERS SKIVER Unavailable Unavailable Arbolino Unavailable Unavailable Angel M Unavailable Unavailable MD PRETTY Unavailable Unavailable Maynor Chao MD Unavailable Unavailable AurisicchiBg hutchinson MD Unavailable Unavailable Aurisicchijasper N Unavailable Unavailable Aurisicchio N Unavailable Unavailable AurisicchiBg hutchinson MD Unavailable Unavailable Aurisicchio N Unavailable Unavailable Evangelista, J DO Unavailable Unavailable Evangelista, J DO Unavailable Unavailable Evangelista, J DO Unavailable Unavailable Evangelista, J DO Unavailable Unavailable BatSergei richardw Unavailable Unavailable Dionisio Unavailable Unavailable Care Unavailable Unavailable Joe Unavailable Unavailable Solitario CLINTON, Physician Unavailable Unavailable MD Kaleb Unavailable Unavailable MD Montrell Unavailable Unavailable Mic CLINTON, Physician B Unavailable Unavailable SARA SCOTT Unavailable Unavailable ER Unavailable Unavailable MD DONELL Unavailable Unavailable KanKasi byrd Unavailable Unavailable Leda, DO Unavailable Unavailable Cappa, [...] is protected by Article 27-F of the [facility] Public Health law. If you continue you may haveaccess to information: Regarding HIV / AIDS; Provided by facilities licensed or operated by the [facility] Office of Mental Health; or Provided by the [facility] Office for People With Developmental Disabilities. If such information is present, then the following [facility] mandated warning applies: This information has been [...] law may result in a fine or intermediate sentence or both. A general authorization for the release of medical or other information is NOT sufficient authorization for further disclosure. Allergies and Adverse Reactions Type Description Substance Reaction Status Data Source(s ) 1 SIMON SEED SIMON SEED Nausea / Vomiting NEXTGEN (moderate) 3 ([facility]) 1 sesame oil sesame oil Itching (mild) NEXTGEN ([facility]) Food allergy SESAME OIL SESAME OIL [facility] Drug allergy Dilaudid Dilaudid exacerbate [facility] gastroparesis [facility] Drug allergy No Known No Known [facility] Allergies Allergies - [facility] Allergy to Allergy to No known drug NETSMART substance substance allergy ([facility]) simon seed simon seed VOMITING [facility] Food allergy sesame seed sesame seed ANAPHYLAXIS [facility] Encounters Encounter Providers Location Date Indications Data Source(s ) Outpatient Attender: Maurice 01/28/2020 NEXTGEN (Sandramiabdirahman Car[facility] 11:21:00 AM Medical - [facility]) Outpatient Attender: Maurice 01/26/2020 NEXTGEN ([facility] 03:38:00 PM [facility] Outpatient Attender: Shanon 01/21/2020 NEXTGEN ([facility] Zaki 02:19:00 PM [facility] Outpatient Attender: Shanon 01/08/2020 NEXTGEN ([facility] HollanderReferrer: 03:20:00 PM [place] [facility]) Outpatient Attender: Shanon 01/01/2020 NEXTGEN ([facility] HollanderReferrer: 11:26:00 AM [place] [employer] [facility]T [facility]) Outpatient Attender: Shanon 12/31/2019 NEXTGEN ([facility] Zaki 11:08:00 AM [facility] Outpatient Attender: Shanon 12/22/2019 NEXTGEN ([facility] HollanderReferrer: 04:48:00 PM Medic al [place] [facility]) Outpatient Attender: Shanon 12/11/2019 NEXTGEN ([facility] HollanderReferrer: 03:16:00 PM Medic al - [place] [facility]) Outpatient Attender: Perico 12/03/2019 NEXTGEN ([facility] BillyReferrer: 08:00:00 AM Medica l - [place] Shan[place] [facility]) Outpatient Attender: Merrick 11/28/2019 NEXTGEN ([facility] Damariseferrer: 01:45:00 PM Medi beata - [place] Shan[place] [facility]) Outpatient Attender: Shanon 11/03/2019 NEXTGEN ([facility] HollanderReferrer: 03:15:00 PM Medic al [place] [employer] [facility] EDT [facility] Gr[facility] PC) Outpatient Attender: Aracely 11/03/2019 NEXTGE N ([facility] Joe 02:28:00 PM Medical - [facility]) Outpatient Attender: Shanon 11/03/2019 NEXTGEN ([facility] Zaki 12:54:00 PM Medical [place] EDT [facility]) Outpatient Attender: Shanon 10/31/2019 NEXTGEN ([facility] HollanderReferrer: 02:54:00 PM Medic al [place] [employer] EDT Medical Grou [facility] PC) Outpatient Attender: Shanon 10/30/2019 NEXTGEN ([facility] HollanderReferrer: 04:46:00 PM Medic al [place] [employer] EDT [facility] Gr[facility] PC) Outpatient Attender: Shanon 10/30/2019 NEXTGEN ([facility] Zaki 11:30:00 AM Medical [place] EDT [facility]) Outpatient Attender: Shanon 10/29/2019 NEXTGEN ([facility] HollanderAttender: 03:30:00 PM Medic al - [place] Horacio EDT Medical Group PC) KanoffReferrer: Shanon Haines Outpatient Attender: Shanon 10/28/2019 NEXTGEN ([facility] HollanderReferrer: 10:47:00 AM Medic al - [place] [employer] EDT Medical Grou [facility] PC) Outpatient Attender: Luz 10/28/2019 NEXTGEN ( [facility] YardeniReferrer: 12:00:00 AM Medical - [place] Luz Yardeni EDT Medical [facility] PC) Outpatient Attender: Juaquin 10/27/2019 NEXTGEN ([facility] Gamarnik 12:55:00 PM Medical - [place] EDT [facility]) Outpatient Attender: Lefty 10/26/2019 NEXTGEN ([facility] Balkir 02:38:00 PM Medical - [place] EDT [facility]) Outpatient Attender: Lefty 10/26/2019 NEXTGEN ([facility] BalkirReferrer: 12:00:00 AM Medical - [place] [facility] Outpatient Attender: Juaquin 10/25/2019 NEXTGEN ([facility] Gamarnik 03:42:00 PM Medical - [place] EDT [facility]) Outpatient Attender: Shanon 10/24/2019 NEXTGEN ([facility] Zaki 02:01:00 PM Medical - [facility] ) Emergency Attender: Lucy ICU-EMERG 10/23/2019 VOMITING/SOB MHS - Eduardo MishraLuannder: 03:29:00 AM Hospi grazyna Franz EDT - MDAttender: Doctor 10/23/2019 Other 04:18:00 PM EDT VOMITING/SOB Patient discharged. Outpatient Attender: Shanon 10/17/2019 12:56:00 PM NEXTGEN ([facility] EDT Medical [facility]) Outpatient Attender: Shanon 10/16/2019 03:04:00 PM NEXTGEN ([facility] EDT Medica l [facility]) Outpatient Attender: Merrick 10/16/2019 11:30:00 AM NEXTGEN ([facility] Damariseferrer: EDT Medic al [facility]) Outpatient Attender: Shanon 10/15/2019 04:17:00 PM NEXTGEN ([facility] EDT Medical [facility]) Outpatient Attender: Shanon 10/10/2019 04:04:00 PM NEXTGEN ([facility]) Outpatient Attender: Shanon 10/08/2019 09:18:00 AM NEXTGEN ([facility] Medical [facility]) Outpatient Attender: Juaquin 10/01/2019 01:39:00 PM NEXTGEN ([facility] ArminReferrer: EDT Medical - [facility]) Outpatient Attender: Aracely Joe 10/01/2019 01:17:00 PM NEXTGEN ([facility] EDT Medical [facility]) Outpatient Attender: Sally 09/30/2019 03:35:00 PM NEXTGEN ([facility] Johnolino EDT Medical [facility]) Outpatient Attender: Shanon 09/30/2019 08:55:00 AM NEXTGEN ([facility] Zaki EDT Medical [facility]) Outpatient Attender: Sara 09/27/2019 12:00:00 AM NEXTGEN ([facility] AleahReferrer: Sara ANGULO La dical - [facility]) Outpatient Attender: Namrata Mcguire NP 09/26/2019 03:58:00 PM NEXTGEN ([facility] EDT Medical - [place] [facility] Medical [facility] PC) Outpatient Attender: Erasmo 09/25/2019 12:00:00 AM NEXTGEN ([facility] HalbertReferrer: Erasmo KEV M edical - [facility]) Outpatient Attender: Aracely 09/25/2019 12:00:00 AM NEXTGEN ([facility] GuptaReferrer: Parantap EDT M edical - [facility] Joe [facility]) Outpatient Attender: Namrata Mcguire NP 09/24/2019 02:02:00 PM NEXTGEN ([facility] EDT Medical - [place] [facility]) Outpatient Attender: Juaquin Funez 09/24/2019 02:55:00 AM NEXTGEN ([facility] EDT Medical - [place] [facility] Medical [facility]) Outpatient Attender: Salvador 09/24/2019 12:00:00 AM NEXTGEN ([facility] PatelReferrer: Salvador EDT Medic al - [facility] Medical [facility]) Outpatient Attender: Shanon 09/19/2019 11:30:00 AM NEXTGEN ([facility] ZakiReferrer: EDT Medica l - [place] [facility]) Outpatient Attender: Maurice 09/16/2019 01:00:00 PM NEXTGEN ([facility] AliseReferrer: EDT Medica l [facility]) Outpatient Attender: Juaquin 09/11/2019 10:15:00 AM NEXTGEN ([facility] ArminReferrer: Juaquin ANGULO La dical - [facility]) Outpatient Attender: Shanon 09/10/2019 11:01:00 AM NEXTGEN ([facility] Zaki EDT Medical - [place] [facility] Medical [facility]) Outpatient Attender: Juaquin 09/09/2019 02:37:00 PM NEXTGEN ([facility] GamarnikReferrer: EDT Medical - [place] [employer] [facility]) Outpatient Attender: Sally 09/08/2019 06:23:00 PM NEXTGEN ([facility] Johnolino EDT Medical - Id [facility]) Outpatient Attender: Erasmo Back 09/08/2019 01:07:00 PM NEXTGEN ([facility] EDT Medical - [facility]) Outpatient Attender: Juaquin 09/08/2019 01:05:00 PM NEXTGEN ([facility] GamarnikReferrer: EDT Medical - [place] [employer] [facility]) Outpatient Attender: Erasmo 09/08/2019 12:00:00 AM NEXTGEN ([facility] HalbertReferrer: Erasmo Pena edical - [facility] Medical [facility]) Outpatient Attender: Juaquin Funez 09/07/2019 11:53:00 AM NEXTGEN ([facility] EDT Medical - [facility]) Outpatient Attender: Maurice 09/06/2019 12:44:00 PM NEXTGEN ([facility] Carrero EDT Medical - [facility]) Outpatient Attender: Juaquin 09/06/2019 12:00:00 AM NEXTGEN ([facility] ArminReferrer: Juaquin ANGULO La dical - [facility] Medical [facility]) Outpatient Attender: Maurice 09/04/2019 05:15:00 PM NEXTGEN ([facility] Carrero EDT Medical - [place] [facility]) Outpatient Attender: Valente 09/04/2019 12:00:00 AM NEXTGEN ([facility] VerasReferrer: EDT Medical - [facility] Medical [facility]) Outpatient Attender: Juaquin 09/03/2019 12:53:00 PM NEXTGEN ([facility] GamsidReferrer: EDT Medical - [facility]) Outpatient Attender: Cole Fishman 09/03/2019 10:32:00 AM NEXTGEN ([facility] EDT Medical - [facility]) Outpatient Attender: Cole 09/03/2019 12:00:00 AM NEXTGEN ([facility] KyeReferrer: Cole EDT M edical - [facility]) Outpatient Attender: Maurice 09/03/2019 12:00:00 AM NEXTGEN ([facility] RosenbergReferrer: Cole EDT Medical - [facility]) Outpatient Attender: Marianela 09/02/2019 07:30:00 PM NEXTGEN ([facility] Joe EDT Medical - [facility] Medical [facility]) Outpatient Attender: Namrata Mcguire NP 08/29/2019 05:43:00 PM NEXTGEN ([facility] EDT Medical - [facility] Medical [facility]) Outpatient Attender: John 08/28/2019 12:00:00 AM NEXTGEN ([facility] CollierReferrer: John HARDINGT M edical - [facility]) Outpatient Attender: Luz Donis 08/27/2019 04:28:00 PM NEXTGEN ([facility] EDT Medical - [facility] Medical [facility]) Outpatient Attender: Luz 08/27/2019 12:00:00 AM NEXTGEN ([facility] YardeniReferrer: Luz EDT La dical - [facility] PC) Outpatient Attender: Juaquin Funez 08/26/2019 01:46:00 AM NEXTGEN ([facility] EDT Medical - [facility]) Outpatient Attender: Juaquin Funez 08/15/2019 06:21:00 PM NEXTGEN ([facility] EDT Medical - [facility] Medical [facility]) Outpatient Attender: Shanon 08/14/2019 01:46:00 PM NEXTGEN ([facility] ZakiReferrer: EDT Medica l - [facility]) Outpatient Attender: Juaquin 08/14/2019 10:15:00 AM NEXTGEN ([facility] GamdenissenikReferrer: Juaquin HARDINGT La dical - [facility]) Outpatient Attender: Juaquin 08/14/2019 12:00:00 AM NEXTGEN ([facility] GamdenissenikReferrer: Juaquin HARDINGT La dical - [place] [facility]) Outpatient Attender: Juaquin Funez 08/13/2019 12:28:00 PM NEXTGEN ([facility] EDT Medical - [facility]) Outpatient Attender: Aracely Joe 08/11/2019 12:02:00 PM NEXTGEN ([facility] EDT Medical - [facility]) Outpatient Attender: Juaquin Funez 08/11/2019 02:10:00 AM NEXTGEN ([facility] EDT Medical - [facility]) Outpatient Attender: Aracely 08/11/2019 12:00:00 AM NEXTGEN ([facility] GuptaReferrer: Parantap EDT [facility]ical [facility] Outpatient Attender: Juaquin Funez 08/07/2019 12:23:00 PM NEXTGEN ([facility] EDT Medical - [place] [facility]) Outpatient Attender: Shanon 08/07/2019 12:14:00 PM NEXTGEN ([facility] HollanderReferrer: EDT Medica l - [facility]) Outpatient Attender: Juaquin Funez 08/06/2019 01:20:00 PM NEXTGEN ([facility] EDT Medical - [place] [facility]) Outpatient Attender: Aracely Joe 08/05/2019 09:55:00 AM NEXTGEN ([facility] EDT Medical - [facility]) Outpatient Attender: Aracely 08/05/2019 12:00:00 AM NEXTGEN ([facility] GuptaReferrer: Parantap EDT [facility] Outpatient Attender: Carlin Land 08/01/2019 03:52:00 PM NEXTGEN ([facility] EDT Medical - [place] [facility]) Outpatient Attender: Juaquin Funez 07/30/2019 04:41:00 PM NEXTGEN ([facility] EDT Medical - [place] [facility]) Outpatient Attender: Carlin Land 07/28/2019 07:20:00 PM NEXTGEN ([facility] EDT Medical - [place] [facility]) Outpatient Attender: Carlin 07/28/2019 12:00:00 AM NEXTGEN ([facility] LeeReferrer: Reyes EDT Medical - [facility]) Outpatient Attender: Juaquin Funez 07/27/2019 11:51:00 AM NEXTGEN ([facility] EDT Medical - [facility]) Outpatient Attender: Juaquin Funez 07/05/2019 11:59:00 AM NEXTGEN ([facility] EDT Medical [facility]) Outpatient Attender: Juaquin Funez 07/03/2019 03:27:00 AM NEXTGEN ([facility] EDT Medical [facility]) Inpatient Attender: Physician 06/22/2019 11:52:[address] [facility] Shanon Fontana EDT - 06/25/[address] [facility] MDAttender: Physician 04:20:00 PM EDT Namrata Haile MDAttender: Myra Vera: ERAdmitter: Physician Shanon Fontana MDConsultant: Lai Chao MD Patient discharged. Outpatient Attender: Nunu 06/09/2019 12:00:00 AM NEXTGEN ([facility] CloseReferrer: Nunu MEDINA La dical [facility]) Outpatient Theoretical Physics Teacher: Lavon 06/06/2019 12:00:00 AM NEXTGEN (Richard Carrion MD [facility]) Outpatient Attender: Lai 06/05/2019 12:00:00 AM NEXTGEN ([facility] JeremieReferrer: Juaquin [facility]) Outpatient Theoretical Physics Teacher: Lavon 06/05/2019 12:00:00 AM NEXTGEN (Richard Carrion MD [facility]) Inpatient Attender: Physician 06/04/2019 07:45:31 PM [facility] - Dequan Jerez EST - 06/10/2019 [facility] MDAttender: Physician Namrata 02:40:00 PM ADAM Haile MDAttender: Glen [place]: ERAdmitter: Physician Dequan Jerez MDConsultant: Lavon Carrion MDConsultant: Physician Sara Shields MDConsultant: Lai Chao MD Patient discharged. Emergency Attender: GAYATRI 06/04/2019 04:54:00 WEAKNESS, VOMITING Raymond CHANTAL PM EST - 06/04/2019 [place] Hospi grazyna 06:34:00 PM EST WEAKNESS, [place]OMITING [place] Patient discharged. Outpatient Attender: TYLER 05/08/2019 [facility] TYLER, 06:00:00 AM [facility] Outpatient Attender: TYLER, 04/24/2019 [facility] Valley[facility]: TYLER, 10:37:00 AM [facility] Outpatient Attender: Mariano Eddy DPM 04/21/2019 FOOT WOUND Raymond 09:57:00 AM [facility] FOOT WOUND Outpatient Attender: TYLER, 04/10/2019 11:22:00 [facility]YLER AM [facility] Outpatient 03/31/2019 09:05:00 PM NE PAIGE ([facility]) Outpatient Attender: TYLER 03/26/2019 09:34:00 AM H33.01 2 [facility]: [facility] SARA SCOTTReferrer: SARA SCOTT H33.012 Outpatient Attender: TYLER 03/26/2019 06:00:00 H33.012 [facility]restAdmitter: MAC SCOTT [facility] SARA H33.012 Outpatient Attender: Mehrdad BENDER 03/25/2019 11:24:00 AM [facility] Susan Hoff MDAdmitter: EST - 04/21/2019 Hospital JHOANA CABRERA 12:46:00 PM EST Patient discharged. Attender: 03/25/2019 Gregorykeri [id number] 11:24:00 AM [facility] [id number] EST Outpatient Attender: SARA SCOTTAdmitter: 03/24/2019 [place] SARA SCOTTReferrer: TYLER 12:17:00 PM [facility] Emergency Attender: Alessandro Franz MDAttender: ICU- 03/11/2019 Kenya BLANTON - New Doctor Other GEMMA 08:48:00 PM Carolyn Dunham [facility] - Hospital 03/12/2019 10:51:00 AM EST ANXIETY Patient discharged. Emergency Attender: Massimo ICU-EMERG 03/08/2019 ANXIETY-WAS HERE M HS - Eduardo Ricksa MDAttender: 08:18:00 PM EST YESTERDAY Freddy lashonda Doctor Other - 03/08/2019 Hospital 09:19:00 PM EST ANXIETY-WAS HERE YESTERDAY Patient discharged. Emergency Attender: Ravi ICU-EMERG 03/06/2019 HIGH ANXIETY MHS - N adán GarciaaAtkellyder: Doctor 08:48:00 PM EST - Carolyn Other 03/07/2019 Hospital 08:00:00 AM EST HIGH ANXIETY Patient discharged. Inpatient Attender: JESSICA BENDER-2NW 02/28/2019 07:00:00 [facility]ALEX[facility]. Disregard status an d admitted date. Attender: 02/28/2019 [facility] [id number] 07:00:00 PM [place] [address] Outpatient Attender: KRISTINA CURRIEttender: NAPOLEON 02/28/2019 [facility] LAURIE ECHEVARRIAAdmitter: SIMONE 04:15:00 PM [facility] - [facility] 04/10/2019 11:55:00 AM EST Patient discharged. Attender: 02/28/2019 [facility] [id number] 04:15:[address] Emergency Attender: Wesley PalaciosonAttender: 5T-EM 02/24/2019 PAIN KERRIES - Violeta Doctor Other ERG 01:23:00 AM EST LEFT LEG Kwasi - 02/24/2019 Hospital 02:20:00 AM EST PAIN LEFT LEG Patient discharged. Outpatient Attender: Shy Renteria 02/14/2019 10:02:00 AM LAURENT GONZALEZ F/U Georgina Guy MD EST Hospital HOSP F/U Outpatient Attender: Juaquin 02/12/2019 OLGA Funez 12:32:00 PM EST Medical - [facility]) Inpatient Attender: 01/29/2019 MICHELLE Oilvas 06:41:00 PM EDT - VOMITING/AK I Hospital MDAttender: 02/11/2019 Brianna Sullivna 10:13:00 AM EST MDAttender: Nancy Brunson MDAttender: Juan Torre MDAdmitter: Nancy Brunson MDConsultant: Say Valentin MDConsultant: Shirin Stock MDConsultant: Sean Pineda BLOCKERS SKIVER INTRACTABLE VOMITING/LIZA Patient discharged. Outpatient Attender: Juaquin 01/21/2019 05:26:00 N EXTGEN ([facility] Gamarnik PM EDT Medical - [facility] PC) Inpatient Attender: Joce 12/27/2018 08:06:00 RIGHT LE DIABETIC [facility] MDAttender: PM EDT - 01/20/2019 [facility] 11:[facility]00 AM EDT MDAttender: Anette Zhao MDAttender: MAU GUERINARAAdmitter: Anette Zhao MDConsultant: Say Valentin MDConsultant: Sean Pineda BLOCKERS SKIVER RIGHT LE DIABETIC [facility] Patient discharged. Inpatient Attender: Manas 12/20/2018 08:36:[address] [facility] MDAttender: EDT - 12/27/2018 [facility] MDAttender: 10:56:00 AM EDT Calvin Mercedes MDAttender: Monica Manuel MDAttender: Avery Pacehco DOAdmitter: Keysha Tompkins DOConsultant: Yonas Wright MDConsultant: Calvin Mercedes MD SEPSIS Patient discharged. Inpatient Attender: Aron 12/06/2018 INTRACTABLE NAUSEA [facility] MDAttender: 03:30:00 AM EDT - AND VOMIT ING; [facility] 12/18/2018 CHRONIC OSTEOMYEL MDAttender: Avery 02:55:00 PM EDT Junior DOAdmitter: Aron Fernandez MDConsultant: Sean Pineda NPConsultant: Jennifer Oakley BLOCKERS SKIVER INTRACTABLE NAUSEA AND VOMITING; CHRONIC OSTEOMYEL Patient discharged. Outpatient Attender: Mariano 08/16/2018 12:00:00 N EXTGEN ([facility] Fabianaferrer: Mariano WATTS EDT La dical - [facility] PC) Outpatient Attender: Juaquin 08/11/2018 12:00:00 N EXTGEN ([facility] GamsidReferrer: Abdirahman AM EDT M edical - [place] [facility]) Functional Status Medications Medication Brand Start Product Dose Route [facility] Indications Reaction Description Data Name Date Form Instructions Instructions Source(s) Metoclopram METOCL take 1 tablet RP NEXTGEN nae 10 MG OPRAMI by oral route 3 ([facility] Oral Tablet DE HCL times every day Medical - 10 mg 10 mg 30 minutes [facility] Medical and at bedtime Group PC) This may be an active medication. No end date is available. Start date above may not reflect actual date the medication was s tarted. prucalopride 1 MG MOTEGRITY 12/22/2019 take 2 RP NEXTGEN Oral Tablet 12:00:00 AM EDT tablet by ([facility] [Motegrity] 1 mg oral route Medical - Mt 1 mg every day [facility] Group PC) This may be an active medication. No end date is available. rifaximin 550 MG XIFAXAN 12/11/2019 take 1 RP NEXTGEN Oral Tablet 12:00:00 AM EDT tablet by ([facility] [XIFAXAN] 550 mg oral route Medical - [place] 550 mg every 8 [facility] hours. Group PC) This may be [...] route Medic al - [place] every day [facility] Group PC) This may be an [...] - [place] gram times every day [facility] Group PC) on an empty stomach This [...] Refill(s), [facility] - Chewable tablet, EDT [place] Tablet chewable [facility] simethicone Center 80 mg oral tablet, chewable Acetaminophen acetaminophen 06/25/2019 Tablet 650.0 Oral [place] 325 MG Oral 325 mg oral 09:57:00 AM mg 650 mg, = 2 tab, Oral, q6hr, 0 Refill(s), Pain Scale 1 - 3 Health - Tablet tablet EDT [place] acetaminophen Hospit al 325 mg oral Center tablet Metoclopramid Reglan 10 mg 06/10/2019 Tablet 10.0 Oral [place] e 10 MG Oral oral tablet 09:09:00 AM mg 10 mg, = 1 tab, Oral, Before meals, # 90 tab, 0 Refill(s), Pharmacy: [facility]/pharmacy #[id number], 1 tab Oral Before meals Health - Tablet Reglan EST [place] 10 mg oral Hospital tablet Center Lisinopril 20 lisinopril 20 06/10/2019 Tablet 20.0 Oral [place] MG Oral mg oral 09:09:00 AM mg 20 mg, = 1 tab, Oral, Daily, # 30 tab, 0 Refill(s), Pharmacy: [facility]/pharmacy #[id number], 1 tab Oral Daily Health - Tablet tablet EST [place] lisinopril 20 Hospit al mg oral Center tablet Hydralazine hydrALAZINE 06/10/2019 Tablet 25.0 Oral [place] Hydrochloride 25 mg oral 09:09:00 AM mg 25 mg, = 1 tab, Oral, q8hr, # 90 tab, 0 Refill(s), Pharmacy: [facility]/pharmacy #[id number], 1 tab Oral q8hr Health - 25 MG Oral tablet EST [facility] hydrALAZINE Center 25 mg oral tablet carvedilol carvedilol 06/10/2019 Tablet 6.25 Oral [place] 6.25 MG Oral 6.25 mg oral 09:09:00 AM mg 6.25 mg, = 1 tab, Oral, BID, # 60 tab, 0 Refill(s), Pharmacy: [facility]/pharmacy #[id number], 1 tab Oral BID Health - Tablet tablet [facility] 6.25 mg oral Center tablet metformin [id number] 06/05/2019 Tablet 500.0 Oral [place] 01:15:00 AM mg 500 mg, Oral, BID, 0 Refill(s) Health - [facility] Trazodone traZODone 04/16/2019 1.0 Oral ac [facility] Hydrochloride hydrochloride 05:00:00 AM Tablet ti ([place] 50 MG Oral EST ve er [facility]) Clonazepam KlonoPIN - 04/16/2019 1 ORAL co Kl onoPIN - [facility] 0.5 MG Oral 0.5 MG ORAL 12:00:00 AM Tablet mp 0.5 MG ORAL [facility] Tablet Tablet EST [facility] [Klonopin] te d Clonazepam KlonoPIN - 04/03/2019 1 ORAL co Kl onoPIN - [facility] 0.5 MG Oral 0.5 MG ORAL 12:00:00 AM Tablet mp 0.5 MG ORAL [facility] Tablet Tablet EST [facility] [Klonopin] te d Fluoxetine 10 PROzac - [...] Lorazepam 1 Ativan 1 03/08/2019 1 {tab(s)} [id number] aborted Ativan [facility] Oral mg oral [...] machinery. Lorazepam 1 Ativan 1 02/24/2019 1 [id number] aborted Ativan [facility] MG Oral mg oral 02:02:37 AM {tab(s)} Health Tablet tablet EST System [Ativan] Ativan 1 mg oral tablet Metformin Metformin 02/10/2019 TAB 500 mg ORAL completed [place] hydrochlorid Hcl 02:28:00 PM LET [place] e 500 MG EST Hospital Oral Tablet [Glucophage] Metformin Hcl Metocloprami Metoclopr 02/10/2019 TAB 10 mg ORAL completed [place] de 10 MG amide Hcl 02:28:00 PM LET [place] Oral Tablet EST Hospital Metocloprami de Hcl Metformin Metformin 02/10/2019 TAB 500 mg ORAL active [place] hydrochlorid Hcl 02:28:00 PM LET [place] e 500 MG EST Hospital Oral Tablet [Glucophage] Metformin Hcl Metocloprami Metoclopr 02/10/2019 TAB 10 mg ORAL active [place] de 10 MG amide Hcl 02:28:00 PM LET [place] Oral Tablet EST Hospital Metocloprami de Hcl [...] 30 MG e Hcl 05:15:00 PM SUL [place] Delayed EST E, Hospital Release Oral EXT Capsule END [Cymbalta] ED Duloxetine REL Hcl EAS E Metoprolol Metoprolo 02/09/2019 TAB 25 mg ORAL completed [place] Tartrate 25 l 05:15:00 PM LET [place] MG Oral Tartrate EST Hospital Tablet duloxetine Duloxetin 02/09/2019 CAP 30 mg ORAL completed [facility] 30 MG e Hcl 05:15:00 PM SUL [place] Delayed EST E, Hospital Release Oral EXT Capsule END [[facility]] ED Duloxetine REL Hcl EAS E Amlodipine Amlodipin 02/09/2019 TAB 10 mg ORAL completed [place] 10 MG Oral e 05:15:[address] Tablet Besylate EST Hospital [[facility]] Amlodipine Besylate Lisinopril Lisinopri 02/09/2019 TAB 40 mg ORAL active [place] 20 MG Oral l 05:15:[address] Tablet EST Hospital Metoprolol Metoprolo 02/09/2019 TAB 25 mg ORAL active [place] Tartrate 25 l 05:15:00 PM LET [facility] MG Oral Tartrate EST Hospital Tablet Hydralazine Hydralazi 02/09/2019 TAB 75 mg ORAL completed [place] Hydrochlorid ne Hcl 05:15:00 PM LET [place] e 25 MG Oral EST Hospita l Tablet Hydralazine Hcl Hydralazine Hydralazi 02/09/2019 TAB 75 mg ORAL active [place] Hydrochlorid ne Hcl 05:15:00 PM LET [place] e 25 MG Oral EST Hospita l Tablet Hydralazine Hcl pantoprazole Pantopraz 02/09/2019 TAB 40 mg ORAL active [place] 40 MG ole 05:15:00 PM LET [place] Delayed Sodium EST Hospital Release Oral Tablet [Protonix] Pantoprazole Sodium pantoprazole Pantopraz 02/09/2019 TAB 40 mg ORAL completed [place] 40 MG ole 05:15:00 PM LET [place] Delayed Sodium EST Hospital Release Oral Tablet [Protonix] Pantoprazole Sodium Amlodipine Amlodipin 02/09/2019 TAB 10 mg ORAL active [place] 10 MG Oral e 05:15:[address] Tablet Besylate EST Hospital [[facility]] Amlodipine Besylate Lisinopril Lisinopri 02/09/2019 TAB [...] Glargine 100 Glargine 12:30:00 PM PEC OUS [place] UNT/ML EDT [facility] Injectable ED Solution [Lantus] Lisinopril Lisinopri 01/16/2019 TAB 40 mg ORAL completed [place] 20 MG Oral l 12:30:[address] Tablet EDT Hospital duloxetine Duloxetin 01/16/2019 CAP 30 mg ORAL completed [place] 30 MG e Hcl 12:30:00 PM SUL [place] Delayed EDT E, Hospital Release Oral EXT Capsule END [Cymbalta] ED Duloxetine REL Hcl EAS E Metocloprami Metoclopr 01/16/2019 TAB 10 mg ORAL completed [place] de 10 MG amide Hcl 12:30:00 PM LET [place] Oral Tablet EDT Hospital Metocloprami de Hcl Nystatin 100 Nystatin 01/16/2019 POW 1 TOPICAL completed [place] UNT/MG 12:30:00 PM PAZ {Applicat P lains Topical EDT or} Hospital Powder [[facility]] Insulin Insulin 01/16/2019 UNS 15 SUBCUTANE completed [place] Glargine 100 Glargine 12:30:00 PM PEC OUS [place] UNT/ML EDT [facility] Injectable ED Solution [Lantus] Hydromorphon Hydromorp 01/16/2019 TAB 4 mg ORAL completed [facility] e kimberly Hcl 12:30:00 PM LET [place] Hydrochlorid EDT Hospita l e 4 MG Oral Tablet [Dilaudid] Hydromorphon e Hcl Insulin Insulin 01/16/2019 UNS 0 SUBCUTANE completed [place] Lispro 100 Human 12:30:00 PM PEC OUS [place] [facility] UNT/ML Lispro EDT [facility] Injectable ED Solution [Humalog] Insulin Human Lispro pantoprazole Pantopraz 01/16/2019 TAB 40 mg ORAL completed [place] 40 MG ole 12:30:00 PM LET [place] Delayed Sodium EDT Hospital Release Oral Tablet [Protonix] Pantoprazole Sodium Metocloprami Metoclopr 01/16/2019 TAB 10 mg ORAL completed [place] de 10 MG amide Hcl 12:30:00 PM LET [place] Oral Tablet EDT Hospital Metocloprami de Hcl [...] [facility] Hydrochlorid ne Hcl 12:30:00 PM LET [place] e 25 MG Oral EDT Hospita l Tablet Hydralazine Hcl Lidocaine Lidocaine 01/16/2019 PAT 1 {Patch} TOPICAL completed [place] Hydrochlorid 12:30:00 PM CH [place] e 0.05 MG/MG EDT Hospita l Transdermal Patch [Lidoderm] Lidocaine Lidocaine 01/16/2019 PAT 1 {Patch} TOPICAL completed [place] Hydrochlorid 12:30:00 PM CH [place] e 0.05 MG/MG EDT Hospita l Transdermal Patch [Lidoderm] Insulin Insulin 01/16/2019 UNS 15 SUBCUTANE completed [place] Glargine 100 Glargine 12:30:00 PM PEC OUS [place] UNT/ML EDT [facility] Hospital Injectable ED Solution [Lantus] Hydralazine Hydralazi 01/16/2019 TAB 75 mg ORAL completed [place] Hydrochlorid ne Hcl 12:30:00 PM LET [place] e 25 MG Oral EDT Hospita l [...] 30 MG e Hcl 12:30:00 PM SUL [place] Delayed EDT E, Hospital Release Oral EXT [...] PEC OUS P lains UNT/ML Lispro EDT [facility] Injectable ED Solution [Humalog] Insulin Human Lispro Insulin Insulin 01/16/2019 UNS 0 SUBCUTANE completed [place] Lispro 100 Human 12:30:00 PM PEC OUS [place] UNT/ML Lispro EDT [facility] Injectable ED Solution [Humalog] Insulin Human Lispro [...] [facility] 40 MG ole 12:30:00 PM LET [place] Delayed Sodium EDT Hospital Release Oral Tablet [Protonix] Pantoprazole Sodium Dextromethor Guaifenes 01/16/2019 LIQ 5 mL ORAL completed [place] sexton in/Dextro 12:30:00 PM UID Kim ins Hydrobromide methorpha EDT Ho spital 2 MG/ML / n Guaifenesin 20 MG/ML Oral Solution Guaifenesin/ Dextromethor sexton pantoprazole Pantopraz 01/16/2019 TAB 40 mg ORAL completed [place] 40 MG ole 12:30:00 PM LET [place] Delayed Sodium EDT Hospital Release Oral Tablet [...] 10 MG amide Hcl 12:30:00 PM LET [place] Oral Tablet EDT Hospital Metocloprami de Hcl duloxetine Duloxetin 01/16/2019 CAP 30 mg ORAL completed [place] 30 MG e Hcl 12:30:00 PM SUL [place] Delayed EDT E, Hospital Release Oral EXT Capsule END [Cymbalta] ED Duloxetine REL Hcl EAS E Lidocaine Lidocaine 01/16/2019 PAT 1 {Patch} TOPICAL completed [place] Hydrochlorid 12:30:00 PM CH [place] e 0.05 MG/MG EDT Hospita l Transdermal Patch [Lidoderm] Hydralazine Hydralazi 01/16/2019 TAB 75 mg ORAL completed [place] Hydrochlorid ne Hcl 12:30:00 PM LET [place] e 25 MG Oral EDT Hospita l Tablet Hydralazine Hcl pantoprazole Pantopraz 12/18/2018 TAB 40 mg ORAL completed [place] 40 MG ole 09:27:00 AM LET [place] Delayed Sodium EDT Hospital Release Oral Tablet [Protonix] Pantoprazole Sodium pantoprazole Pantopraz 12/18/2018 TAB 40 mg ORAL completed [place] 40 MG ole 09:27:00 AM LET [place] Delayed Sodium EDT Hospital Release Oral Tablet [Protonix] Pantoprazole Sodium pantoprazole Pantopraz 12/18/2018 TAB 40 mg ORAL completed [place] 40 MG ole 09:27:00 AM LET [place] Delayed Sodium EDT Hospital Release Oral Tablet [Protonix] Pantoprazole Sodium pantoprazole Pantopraz 12/18/2018 TAB 40 mg ORAL completed [place] 40 MG ole 09:27:00 AM LET [place] Delayed Sodium EDT Hospital Release Oral Tablet [Protonix] Pantoprazole Sodium pantoprazole Pantopraz 12/18/2018 TAB 40 mg ORAL completed [place] 40 MG ole 09:27:00 AM LET [place] Delayed Sodium EDT Hospital Release Oral Tablet [...] 10 MG amide Hcl 09:18:00 AM LET [place] Oral Tablet EDT Hospital [Reglan] Metocloprami de Hcl Erythromycin Erythromy 12/18/2018 CAP 250 mg ORAL completed [place] 250 MG jesús Base 09:18:[address] Delayed EDT E, Hospital Release Oral DEL Capsule AYE Erythromycin D Base REL EAS E Amlodipine Amlodipin 12/18/2018 TAB 10 mg ORAL completed [place] 10 MG Oral e 09:18:[address] Tablet Besylate EDT [facility] [[facility]] Amlodipine Besylate Metocloprami Metoclopr 12/18/2018 TAB 10 mg ORAL completed [place] de 10 MG amide Hcl 09:18:00 AM LET [place] Oral Tablet EDT Hospital [[facility]] Metocloprami de Hcl Erythromycin Erythromy 12/18/2018 CAP 250 mg ORAL completed [place] 250 MG jesús Base 09:18:[address] Delayed EDT E, Hospital Release Oral DEL Capsule AYE Erythromycin D Base REL EAS E Amylases Amylase/L 12/18/2018 CAP 4 ORAL completed [place] 89377 UNT / ipase/Pro 09:18:00 AM SUL {Capsule} [place] Endopeptidas [place], [place] [address] UNT DEL / Lipase AYE 6000 UNT D Delayed REL Release Oral EAS Capsule E [Creon] Amylase/Lipa se/Protease Erythromycin Erythromy 12/18/2018 CAP 250 mg ORAL completed [place] 250 MG jesús Base 09:18:[address] Delayed EDT E, Hospital Release Oral DEL Capsule AYE Erythromycin D Base REL EAS E Amylases Amylase/L 12/18/2018 CAP 4 ORAL completed [place] [address] UNT / ipase/Pro 09:18:00 AM SUL {Capsule} [place] Endopeptidas [place] [address] UNT DEL / Lipase AYE 6000 UNT D Delayed REL Release Oral EAS Capsule E [Creon] Amylase/Lipa se/Protease Amylases Amylase/L 12/18/2018 CAP 4 ORAL completed [place] [address]60 UNT / ipase/Pro 09:18:00 AM SUL {Capsule} [place] Endopeptidas [place] [address] UNT DEL / Lipase AYE 6000 UNT D Delayed REL Release Oral EAS Capsule E [Creon] Amylase/Lipa se/Protease Amlodipine Amlodipin 12/18/2018 TAB 10 mg ORAL completed [place] 10 MG Oral e 09:18:[address] Tablet Besylate EDT [facility] [[facility]] Amlodipine Besylate Metocloprami Metoclopr 12/18/2018 TAB 10 mg ORAL completed [place] de 10 MG amide Hcl 09:18:00 AM LET [place] Oral Tablet EDT Hospital [Reglan] Metocloprami de Hcl Metocloprami Metoclopr 12/18/2018 TAB 10 mg ORAL completed [place] de 10 MG amide Hcl 09:18:00 AM LET [place] Oral Tablet EDT Hospital [Reglan] Metocloprami de Hcl Metocloprami Metoclopr 12/18/2018 TAB 10 mg ORAL completed [place] de 10 MG amide Hcl 09:18:00 AM LET [place] Oral Tablet EDT Hospital [Reglan] Metocloprami de Hcl Erythromycin Erythromy 12/18/2018 CAP 250 mg ORAL completed [place] 250 MG jesús Base 09:18:[address] [facility] Delayed EDT E, Hospital Release Oral DEL Capsule AYE Erythromycin D Base REL EAS E Amylases Amylase/L 12/18/2018 CAP 4 ORAL completed [place] 94304 UNT / ipase/Pro 09:18:00 AM SUL {Capsule} [place] Endopeptidas [place] [address] UNT DEL / Lipase AYE 6000 UNT D Delayed REL Release Oral EAS Capsule E [Creon] Amylase/Lipa se/Protease Amylases Amylase/L 12/18/2018 CAP 4 ORAL completed [place] [address] UNT / ipase/Pro 09:18:00 AM SUL {Capsule} [place] Endopeptidas tease [place] [address] UNT DEL / Lipase AYE 6000 UNT D Delayed REL Release Oral EAS Capsule E [Creon] Amylase/Lipa se/Protease Amlodipine Amlodipin 12/18/2018 TAB 10 mg ORAL completed [place] 10 MG Oral e 09:18:[address] Tablet Besylate EDT Hospital [[facility]] Amlodipine Besylate Amlodipine Amlodipin 12/18/2018 TAB 10 mg ORAL completed [place] 10 MG Oral e 09:18:[address] Tablet Besylate EDT Hospital [[facility]] Amlodipine Besylate doxycycline Doxycycli 11/25/2018 CAP [...] completed [place] Ethylsuccina jesús 02:47:00 PM PEN [place] te 40 MG/ML Ethylsucc EDT [facility] Oral inate N Suspension [[facility] Erythromycin Erythromy 11/25/2018 DAVID 200 mg ORAL completed [place] Ethylsuccina jesús 02:47:00 PM PEN [place] te 40 MG/ML Ethylsucc EDT [facility] Oral inate N Suspension [E.E.S.] Erythromycin Erythromy 11/25/2018 DAVID 200 mg ORAL completed [place] Ethylsuccina jesús 02:47:00 PM PEN [place] te 40 MG/ML Ethylsucc EDT [facility] Oral inate N Suspension [E.E.S.] Erythromycin Erythromy 11/25/2018 DAVID 200 mg ORAL completed [place] Ethylsuccina jesús 02:47:00 PM PEN [place] te 40 MG/ML Ethylsucc EDT [facility] Oral inate N Suspension [[facility].] gabapentin Gabapenti 11/25/2018 CAP 300 mg ORAL completed [place] 300 MG Oral n 02:47:00 PM SUL [place] Capsule EDT E Hospital [Neurontin] Gabapentin Glipizide 5 Glipizide 11/25/2018 TAB 5 mg ORAL completed [place] MG Oral 02:47:00 PM LET [place] Tablet [facility] [Glucotrol] Erythromycin Erythromy 11/25/2018 DAVID 200 mg ORAL completed [place] Ethylsuccina jesús 02:47:00 PM PEN [place] te 40 MG/ML Ethylsucc EDT [facility] Oral inate N Suspension [[facility].E.S.] Glipizide 5 Glipizide 11/25/2018 TAB 5 mg ORAL completed [place] MG Oral 02:47:00 PM LET [place] Tablet [facility] [Glucotrol] gabapentin Gabapenti 11/25/2018 CAP 300 mg ORAL completed [place] 300 MG Oral n 02:47:00 PM SUL [place] Capsule EDT E Hospital [Neurontin] Gabapentin gabapentin Gabapenti 11/25/2018 CAP 300 mg ORAL completed [place] 300 MG Oral n 02:47:00 PM SUL [place] Capsule EDT [facility] [Neurontin] Gabapentin Erythromycin Erythromy 11/25/2018 DAVID 200 mg ORAL completed [place] Ethylsuccina jesús 02:47:00 PM PEN [place] te 40 MG/ML Ethylsucc EDT [facility] Oral inate N Suspension [[facility].] Glipizide 5 Glipizide 11/25/2018 TAB 5 mg ORAL completed [place] MG Oral 02:47:00 PM [facility] s Tablet [facility] [[facility] Lisinopril Lisinopri 11/10/2018 TAB 20 mg ORAL completed [place] 20 MG Oral l 06:02:00 PM LET [facility] Lisinopril Lisinopri 11/10/2018 TAB 20 mg ORAL completed [place] 20 MG Oral l 06:02:00 PM LET [facility] Lisinopril Lisinopri 11/10/2018 TAB 20 mg ORAL completed [place] 20 MG Oral l 06:02:00 PM LET [facility] Amlodipine 5 Amlodipin 11/10/2018 TAB 5 mg ORAL completed [place] MG Oral e 06:02:00 PM LET [place] Tablet Besylate [facility] [[facility]] Amlodipine Besylate Amlodipine 5 Amlodipin 11/10/2018 TAB 5 mg ORAL completed [place] MG Oral e 06:02:00 PM LET [place] Tablet Besylate [facility] [[facility]] Amlodipine Besylate Amlodipine 5 Amlodipin 11/10/2018 TAB 5 mg ORAL completed [place] MG Oral e 06:02:00 PM [place] [facility] Amlodipine Besylate Amlodipine 5 Amlodipin 11/10/2018 TAB 5 mg ORAL completed [place] MG Oral e 06:02:00 PM LET [place] Tablet Besylate [facility] [[facility]] Amlodipine Besylate Amlodipine 5 Amlodipin 11/10/2018 TAB 5 mg ORAL completed [place] MG Oral e 06:02:00 PM LET [place] Tablet Besylate [facility] [[facility]] Amlodipine Besylate ertapenem ERTAPENEM 07/13/2018 in [...] - Mt Tablet 1,000 mg po [facility]ID [facility]) [...] Policy type / Policy ID Covered Covered constitution party's Policy Plan Coverage type constitution party ID relationship to Ma Information ma SANTANA [id number] SP [id number] MEDICARE ADV PLAN DAVID MEDICARE [id number] SP [id number] MEDICAID [id number] SP [id number] MCAD Computer [id number] OR Productivity [facility] Medicare [id number] Part B Par Providers FIDL Santana [id number] Care [place] MEDICAID [id number] PT [id number] MEDICARE [id number] PT [id number] MEDICAID [id number] SP [id number] MEDICARE [id number] SP [id number] [place] Commercial [id number] Medicare Medicaid Medicaid [id number] Medicare Part Medicare [id number] 1 [id number] B Outpatient Medicare Part Medicare [id number] 1 [id number] A BETTER [id number] PT [id number] HEALTH/FIDELI S BETTER [id number] PT [id number] HEALTH/FIDELI S Medicare Part Medicare [id number] 1 [id number] B Outpatient Medicaid Medicaid [id number] Medicare Part Medicare [id number] 1 [id number] A FIDL [place] [id number] 1 [id number] Care [place] SELF PAY 000 Self 000 MEDICAID OP [id number] Self [id number] SELF PAY 0000 Self 0000 MEDICAID OP [id number] Self [id number] MEDICARE [id number] Self [id number] J43 [facility] Medicaid [id number] BETTER [id number] PT [id number] [place] [address]/[facility] [id number] PT [id number] HMO Problems, Conditions, and Diagnoses Code Display Name Description Problem Type Effective Data Sour ce(s) Dates K31.84 Gastroparesis Gastroparesis Diagnosis 01/08/2020 NEXTGEN 03:20:00 PM ([place] EDT Medical - [facility]) K58.0 Irritable bowel Irritable bowel Diagnosis 01/08/2020 NEXT GEN syndrome with syndrome with 03:20:00 PM ([facility] diarrhea diarrhea EDT [facility]) R79.89 Other specified Low testosterone in Diagnosis 12/22/2019 NEXTGEN abnormal findings of male 04:48:00 PM ([place] [facility] blood chemistry EDT [facility]) E11.43 Type 2 diabetes DM gastroparesis Diagnosis 12/22/2019 NEX TGEN mellitus with 04:48:00 PM ([facility] diabetic autonomic EDT Medica l - Mt (poly)neuropathy [facility] dical Group [facility]) K58.1 Irritable bowel Irritable bowel Diagnosis 12/11/2019 NEXT GEN syndrome with syndrome with 03:16:00 PM ([facility] constipation constipation EDT Medical [facility]) E11.9 Type 2 diabetes Type 2 diabetes Diagnosis 12/11/2019 NEXT GEN mellitus without mellitus without 03:16:00 PM ( [facility] complications complications EDT [facility]) E11.621 Type 2 diabetes Type 2 diabetes Diagnosis 11/28/2019 NEXT GEN mellitus with foot mellitus with foot 01:45:00 PM ([facility] ulcer ulcer, with EDT Medical - [facility] long-term [facility]) E11.40 Type 2 diabetes Type 2 diabetes Diagnosis 11/28/2019 NEXT GEN mellitus with mellitus with 01:45:00 PM ([facility] diabetic neuropathy, diabetic EDT [facility] beata - Id unspecified neuropathy, unsp [facility] [facility]) R53.1 Weakness Weakness Diagnosis 10/23/2019 [facility] - New 03:29:00 AM [facility] VOMITING/SOB VOMITING/SOB Diagnosis 10/23/2019 [facility] - New 03:29:00 AM [facility] E11.9 Type 2 diabetes Type 2 diabetes Diagnosis 10/23/2019 S - New mellitus without mellitus without 03:29:00 AM [facility] [place] complications complication EDT Hospital R52 Pain, unspecified Pain Diagnosis 10/23/2019 [facility] - N ew 03:29:00 AM [facility] 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 Malingerer Diagnosis 10/23/2019 S - New [conscious 03:29:00 AM [place] [facility]] EDT [facility] Z03.818 Encounter for Encounter for Diagnosis 10/23/2019 [facility] - Ne w observation for observation for 03:29:00 AM Freddy helle suspected exposure suspected exposure EDT Hospital to other biological to other biological agents ruled out agent, ruled out F41.9 Anxiety disorder, Anxiety disorder Diagnosis 10/23/2019 M HS - New unspecified 03:29:00 AM [facility] Z09 Encounter for Hospital discharge Diagnosis 10/16/2019 NEX TGEN follow-up follow-up 03:04:00 PM ([facility] examination after [facility] completed treatment [facility] for conditions other Grou p PC) than malignant neoplasm R10.84 Generalized Generalized Diagnosis 10/16/2019 NEXTGEN abdominal pain abdominal pain 03:04:00 PM ([facility]) F41.1 Generalized anxiety RACHELL (generalized Diagnosis 10/16/2019 NEXTGEN disorder anxiety disorder) 03:04:00 PM ([facility]) D64.9 Anemia, unspecified Anemia, unspecified Diagnosis 020 NEXTGEN type 03:04:00 PM ([facility]) E11.21 Type 2 diabetes Type 2 diabetes Diagnosis 10/16/2019 NEXT GEN mellitus with mellitus with 03:04:00 PM ([facility] diabetic nephropathy diabetic [facility] nephropathy [facility]) L89.891 Pressure ulcer of Pressure ulcer of Diagnosis 10/16/2019 NEXTGEN other site, stage 1 other site, stage 1 11:30:0 0 AM ([facility]) K92.2 Gastrointestinal UGIB (upper Diagnosis 09/11/2019 NEXTGEN hemorrhage, gastrointestinal 10:15:00 AM ([facility] unspecified bleed) [facility]) Z00.00 Encounter for Encntr for general Diagnosis 08/14/2019 NEX TGEN general adult adult medical exam 12:00:00 AM ([facility] medical examination w/o abnormal EDT Med ical - Mt without abnormal findings [facility] dical findings Group PC) I10 Essential (primary) Essential (primary) Diagnosis 020 NEXTGEN hypertension hypertension 12:00:00 [facility] E78.5 Hyperlipidemia, Hyperlipidemia, Diagnosis 08/14/2019 NEXT GEN unspecified unspecified 12:00:00 AM ([facility]) E11.51 Type 2 diabetes Type 2 diabetes w Diagnosis 08/14/2019 NE XTGEN mellitus with diabetic peripheral 12:00:00 AM ( [facility] diabetic peripheral angiopath w/o EDT La dical - Mt angiopathy without gangrene [facility] gangrene Group [facility]) D63.1 Anemia in chronic Anemia in chronic Diagnosis 08/14/2019 NEXTGEN kidney disease kidney disease 12:00:00 AM ([facility]) R11.10 Vomiting, Vomiting, Diagnosis 06/24/2019 [facility] unspecified unspecified 11:08:00 AM - [facility] E11.43 Type 2 diabetes Type 2 diabetes Diagnosis 06/24/2019 [facility] mellitus with mellitus with 11:08:00 AM - Dylan pena diabetic autonomic diabetic autonomic [facility] (poly)neuropathy (poly)neuropathy Ce nter R11.2 Nausea with Nausea with Diagnosis 06/06/2019 [facility] vomiting, vomiting, 12:16:00 PM - [place] unspecified unspecified [facility] Hospital Center M86.60 Other chronic M86.60 [...] Personal history of PERSONAL HISTORY OF Diagnosis [address] [place] [place] [address] other infectious and OTHER INFECTIOUS 09:34:00 AM [facility] parasitic diseases AND PARASITIC EST [facility] e DISEASES Subimage Z89.511 Acquired absence of ACQUIRED ABSENCE OF Diagnosis [address] [place] [address] right leg below knee RIGHT LEG BELOW 09:34:00 A M [facility] KNEE [employer] [facility] Subimage K31.84 Gastroparesis GASTROPARESIS Diagnosis 03/26/2019 [facility] 09:34:00 AM [facility] [employer] Z79.84 care home (current) 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 CLINICIAN (CURRENT) Diagnosis [address] [place] [address] use of oral USE OF ORAL 09:34:00 AM [facility] hypoglycemic drugs HYPOGLYCEMIC DRUGS EST Care Subimage F41.9 Anxiety disorder, ANXIETY DISORDER, Diagnosis 03/26/2019 [place] unspecified UNSPECIFIED 09:34:00 AM [facility] [employer] E11.43 Type 2 diabetes TYPE 2 DIABETES W Diagnosis 03/26/2019 [facility] mellitus with DIABETIC AUTONOMIC 09:34:00 AM [facility] autonomic (POLY)NEUROPATHY EST Care (poly)neuropathy 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 H33.42 Traction detachment TRACTION DETACHMENT Diagnosis [place] of retina, left eye OF RETINA, LEFT EYE 09:34:0 0 AM [facility] H33.012 Retinal detachment RETINAL DETACHMENT Diagnosis 9 [place] with single break, WITH SINGLE BREAK, 12:17:00 PM [facility] left eye LEFT EYE [facility] F41.1 Generalized anxiety Generalized anxiety Diagnosis [facility] - New disorder disorder 08:48:00 PM [facility] ANXIETY ANXIETY Diagnosis 03/11/2019 [facility] - New 08:48:00 PM [facility] Z89.431 Acquired absence of Acquired absence of Diagnosis [facility] - New right foot right foot 08:48:00 PM [facility] F43.9 Reaction to severe Reaction to severe Diagnosis 9 [facility] - New stress, unspecified stress 08:18:00 PM [facility] F32.89 Other specified Other depressive Diagnosis 03/08/2019 [facility] - New depressive episodes episodes 08:18:00 PM [facility] ANXIETY-WAS HERE ANXIETY-WAS HERE Diagnosis 03/08/2019 [facility] - New YESTERDAY YESTERDAY 08:18:00 PM [facility] F41.8 Other specified Other specified Diagnosis 03/06/2019 [facility] - New anxiety disorders anxiety disorders 08:48:00 PM [facility] HIGH ANXIETY HIGH ANXIETY Diagnosis 03/06/2019 [facility] - New 08:48:00 PM [facility] Z89.511 Acquired absence of Acquired absence of Diagnosis [facility] - New right leg below knee right lower 08:48:00 PM [facility] knee PAIN LEFT LEG PAIN LEFT LEG Diagnosis 02/24/2019 [facility] - Mo unt 01:23:00 AM [facility] M79.604 Pain in right leg Pain of right lower Diagnosis 9 [facility] - [facility] extremity 01:23:00 AM [facility] F41.9 Anxiety disorder, Anxiety disorder Diagnosis 02/24/2019 [facility] [place] unspecified 01:23:00 AM [facility] D64.89 Other specified D64.89 Diagnosis 02/14/2019 [facility] anemias 10:02:00 AM Hospital EST Z51.89 Encounter for other Z51.89 Diagnosis 02/14/2019 [place] specified aftercare 10:02:00 AM Hosp ital EST F41.9 Anxiety disorder, F41.9 Diagnosis 01/29/2019 [place] unspecified 11:08:00 PM Hospital EDT F32.9 Major depressive F32.9 Diagnosis 01/29/[address] [place] disorder, single 11:08:00 PM Hospita l episode, unspecified EDT G89.29 Other chronic pain G89.29 Diagnosis 01/29/2019 [place] 11:08:00 PM Hospital EDT K21.0 Gastro-esophageal K21.0 Diagnosis 01/29/2019 [place] reflux disease with 11:08:00 PM Hosp ital esophagitis EDT K59.00 Constipation, K59.00 Diagnosis 01/29/2019 [place] unspecified 11:08:00 PM Hospital EDT E11.610 Type 2 diabetes E11.610 Diagnosis 01/29/2019 [place] mellitus with 11:08:00 PM Hospital diabetic neuropathic EDT arthropathy Z89.422 Acquired absence of Z89.422 Diagnosis 01/29/2019 [place] other left toe(s) 11:08:00 PM Hospit al EDT D63.8 Anemia in other D63.8 Diagnosis 01/29/2019 [place] chronic diseases 11:08:00 PM Hospita l classified elsewhere EDT 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 Z76.5 Diagnosis 01/29/2019 [place] [conscious 11:08:00 PM Hospital simulation] EDT R11.2 Nausea with R11.2 Diagnosis 01/29/2019 [place] vomiting, 11:08:00 PM Hospital unspecified EDT E86.0 Dehydration E86.0 Diagnosis 01/29/2019 [facility] 11:08:00 PM Hospital EDT Z86.14 Personal history of Z86.14 Diagnosis 01/29/2019 [place] Methicillin 11:08:00 PM Hospital resistant EDT Staphylococcus aureus infection Z91.14 Patient's other Z91.14 Diagnosis 01/29/2019 [place] noncompliance with 11:08:00 PM [facility] medication regimen EDT Z89.511 Acquired absence of Z89.511 Diagnosis 01/29/2019 [place] right leg below knee 11:08:00 PM Hos pital EDT I10 Essential (primary) I10 Diagnosis 01/29/2019 [place] hypertension 11:08:00 PM Hospital EDT K31.84 Gastroparesis K31.84 Diagnosis 01/29/2019 [place] 11:08:00 PM Hospital EDT E87.1 Hypo-osmolality and E87.1 Diagnosis 01/29/2019 [place] hyponatremia 11:08:00 PM Hospital EDT N17.9 Acute kidney N17.9 Diagnosis 01/29/2019 [place] failure, unspecified 11:08:00 PM Hos pital EDT [...] 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 12/27/2018 [place] duodenum 10:53:00 PM Hospital EDT K76.0 Fatty (change of) K76.0 Diagnosis 12/27/2018 [place] liver, not elsewhere 10:53:00 PM Hos pital classified EDT I16.0 Hypertensive urgency I16.0 Diagnosis 12/27/2018 [place] 10:53:00 PM Hospital EDT A41.9 Sepsis, unspecified A41.9 Diagnosis 12/27/2018 [place] organism 10:53:00 PM Hospital EDT Z91.018 Allergy to other Z91.018 Diagnosis 12/27/[address] [place] foods 10:53:00 PM Hospital EDT 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) Z79.84 Diagnosis 12/27/2018 [place] use of oral 10:53:00 PM Hospital hypoglycemic drugs EDT 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 Z79.899 Diagnosis 12/27/2018 [place] [facility] (current) drug 10:53:00 PM Hospital therapy EDT K31.7 Polyp of stomach and K31.7 Diagnosis 12/27/2018 [place] duodenum 10:53:00 PM Hospital EDT Z87.891 Personal history of Z87.891 Diagnosis 12/20/2018 [place] nicotine dependence 11:00:00 AM Hosp ital EDT 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) Z79.4 Diagnosis 12/20/2018 [place] use of insulin 11:00:00 AM Hospital EDT 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 12/20/2018 [place] ulcer of other part 11:00:00 AM Hosp ital of left foot with EDT unspecified severity L97.519 Non-pressure chronic L97.519 Diagnosis 12/20/2018 [place] ulcer of other part 11:00:00 AM Hosp ital of right foot with EDT unspecified severity L02.415 Cutaneous abscess of L02.415 Diagnosis 12/20/2018 [place] right lower limb 11:00:00 AM Hospita l EDT M86.671 Other chronic M86.671 Diagnosis 12/20/2018 [place] osteomyelitis, right 11:00:00 AM Hos pital ankle and foot EDT M86.672 Other chronic M86.672 Diagnosis 12/20/2018 [place] osteomyelitis, left 11:00:00 AM Hosp ital ankle and foot EDT L03.115 Cellulitis of right L03.115 Diagnosis 12/20/2018 [place] lower limb 11:00:00 AM Hospital EDT A41.02 Sepsis due to A41.02 Diagnosis 12/20/2018 [place] Methicillin 11:00:00 AM Hospital resistant EDT Staphylococcus aureus Z91.19 Patient's Z91.19 Diagnosis 12/06/2018 [place] noncompliance with 09:02:00 AM [facility] other medical EDT treatment and regimen R07.9 Chest pain, R07.9 Diagnosis 12/06/2018 [place] unspecified 09:02:00 AM Hospital EDT D50.9 Iron deficiency D50.9 Diagnosis 12/06/2018 [place] anemia, unspecified 09:02:00 AM Hosp ital EDT Z79.2 care home (current) Z79.2 Diagnosis 12/06/2018 [place] use of antibiotics 09:02:00 AM [facility] EDT E11.42 Type 2 diabetes E11.42 Diagnosis 12/06/2018 [place] mellitus with 09:02:00 AM Hospital diabetic EDT polyneuropathy Surgeries/Procedures Procedure Description Date Indications Data Source(s) OFFICE/OUTPATIENT VISIT EST OFFICE/OUTPATIENT 01/08/2020 [facility] VISIT EST 12:00:00 AM ([facility]) RMVL DEVITAL TIS 20 CM/< RMVL DEVITAL TIS 20 11/28/2019 [facility] CM/< 12:00:00 AM ([facility]) Injection, ondansetron Ondansetron hcl 10/29/2019 NE XTGEN hydrochloride, per 1 mg injection 12:00:00 AM ([facility]) THER/PROPH/DIAG IV INF INIT THER/PROPH/DIAG IV 10/29/2019 [facility] INF INIT 12:00:00 AM ([facility]) INPATIENT CONSULTATION INPATIENT 10/28/2019 N[facility] EN CONSULTATION 12:00:00 AM ([facility]) INPATIENT CONSULTATION INPATIENT 10/26/2019 [facility] EN CONSULTATION 12:00:00 AM ([facility]) NM Lung Scan Perfusion NM 10/23/2019 [facility] Lung Scan Perfusion 11:18:00 AM [facility] EDT - 10/23/2019 11:18:00 AM EDT [facility] AM [facility] EDT - 10/23/2019 05:09:00 AM EDT Electrocardiographic 10/23/2019 [facility] procedure (procedure) 04:42:00 AM [facility] EDT - 10/23/2019 06:17:00 AM EDT [facility] B[facility] EDT - 10/23/2019 05:36:11 AM EDT Culture Bacteria [facility]58 AM [facility] EDT - 10/23/2019 05:36:10 AM EDT Sedimentation Rate, [facility] 04[facility]36:58 AM [facility] EDT - 10/23/2019 05:32:00 AM EDT Lipase, Serum 10/23/2019 [facility] 04:36:58 [facility] EDT - 10/23/2019 05:32:00 AM EDT Alcohol Ethyl, Blood 10/23/2019 [facility] 04:36:58 AM [facility] EDT - 10/23/2019 05:32:00 AM EDT Comprehensive Metabolic 10/23/2019 [facility] Panel 04:36:58 AM [facility] EDT - 10/23/2019 05:32:00 AM EDT CBC w/Auto Differential- 10/23/2019 [facility] NR/SECC Only 04:36:58 AM [facility] EDT - 10/23/2019 05:32:00 AM EDT TRANS CARE MGMT 14 DAY TRANS CARE MGMT 14 10/16/2019 [facility] DISCH DAY DISCH 12:00:00 AM ([facility] EDT [facility] - [facility]) CHRON CARE MGMT SRVC 20 MIN CHRON CARE MGMT 10/16/2019 [facility] SRVC 20 MIN 12:00:00 AM ([facility]T [facility] - [facility]) SUBSEQUENT HOSPITAL CARE SUBSEQUENT HOSPITAL 09/27/2019 NEXTGEN CARE 12:00:00 AM ([facility]T [facility] - [facility]) INITIAL HOSPITAL CARE INITIAL HOSPITAL 09/24/2019 NE XTGEN CARE 12:00:00 AM [facility] - [facility]) TRANS CARE MGMT 7 DAY DISCH TRANS CARE MGMT 7 09/11/2019 [facility]EXT[facility] DAY DISCH 12:00:00 AM ([facility]T [facility] - [facility]) SUBSEQUENT HOSPITAL CARE SUBSEQUENT HOSPITAL 09/04/2019 [facility]EXT[facility] CARE 12:00:00 AM ([facility]T [facility] - [facility]) EGD DIAGNOSTIC BRUSH WASH EGD DIAGNOSTIC 09/04/2019 [facility] BRUSH WASH 12:00:00 AM [facility] EDT [facility] - [facility]) HOSPITAL DISCHARGE DAY HOSPITAL DISCHARGE 08/29/2019 [facility] DAY 12:00:00 AM [facility] ED[facility] Medical [facility]) SUBSEQUENT HOSPITAL CARE SUBSEQUENT HOSPITAL 08/28/2019 [facility]EXT[facility] CARE 12:00:00 [facility] COMPLETE CBC W/AUTO DIFF COMPLETE CBC W/AUTO 08/14/2019 [facility] WBC DIFF WBC 12:00:00 AM ([facility]) ASSAY THYROID STIM HORMONE ASSAY THYROID STIM 08/14/2019 [facility] HORMONE 12:00:00 AM ([facility]) COMPREHEN METABOLIC PANEL COMPREHEN METABOLIC 08/14/2019 [facility] PANEL 12:00:00 AM ([facility]) ASSAY OF FREE THYROXINE ASSAY OF FREE 08/14/2019 NEX TGEN THYROXINE 12:00:00 AM ([facility]) ASSAY OF PSA TOTAL ASSAY OF PSA TOTAL 08/14/2019 NEX TGEN 12:00:00 AM ([facility]) IRON BINDING TEST IRON BINDING TEST 08/14/2019 NEXTG EN 12:00:00 AM ([facility]) ASSAY OF FOLIC ACID SERUM ASSAY OF FOLIC ACID 08/14/2019 [facility] SERUM 12:00:00 AM ([facility]) ASSAY OF FERRITIN ASSAY OF FERRITIN 08/14/2019 NEXTG EN 12:00:00 AM ([facility]) VITAMIN B-12 VITAMIN B-12 08/14/2019 NEXTGEN 12:00:00 AM ([facility]) VITAMIN D 25 HYDROXY VITAMIN D 25 08/14/2019 [facility] HYDROXY 12:00:00 AM ([facility]) UR ALBUMIN QUANTITATIVE UR ALBUMIN 08/14/2019 NEXT GEN QUANTITATIVE 12:00:00 AM ([facility]) URINALYSIS AUTO W/SCOPE URINALYSIS AUTO 08/14/2019 N EXTGEN W/SCOPE 12:00:00 AM ([facility]) LIPID PANEL LIPID PANEL 08/14/2019 NEXTGEN 12:00:00 AM ([facility]) ROUTINE VENIPUNCTURE ROUTINE 08/14/2019 [facility] VENIPUNCTURE 12:00:00 AM ([facility]) PREV VISIT EST AGE 40-64 PREV VISIT EST AGE 0508/14/2019 [facility] 40-64 12:00:00 AM ([facility]) EGD CONTROL BLEEDING ANY EGD CONTROL 08/11/2019 NEX TGEN BLEEDING ANY 12:00:00 AM ([facility]) ERCP REMOVE DUCT CALCULI ERCP REMOVE DUCT 08/05/2019 [facility] CALCULI 12:00:00 AM ([facility]) INITIAL HOSPITAL CARE INITIAL HOSPITAL 07/28/2019 NE XTGEN CARE 12:00:00 AM ([facility]) INPATIENT CONSULTATION INPATIENT 06/05/2019 NEXTG EN CONSULTATION [facility]00:[facility] 06/04/2019 [place] procedure (procedure) 12:00:00 AM Hospit al EST Physical therapy procedure 02/09/2019 [facility] [place] (regime/therapy) 12:00:00 AM Hospital EDT Diagnostic radiography of 02/08/2019 [place] abdomen (procedure) 12:00:00 AM Hospital EDT Physical therapy procedure 02/06/2019 [facility] [place] (regime/therapy) 12:00:00 AM Hospital EDT Probe Cover With Gel 48 In. 02/05/2019 [facility] 12:00:00 AM Hospital EDT PowerGlide Pro 18G x 10CM 02/05/2019 [place] 12:00:00 AM Hospital EDT Diagnostic radiography of 02/04/2019 [place] abdomen (procedure) 12:00:00 AM Hospital EDT Plain chest X-ray 02/02/2019 [place] (procedure) 12:00:00 AM Hospital EDT Electrocardiographic 02/01/2019 [place] procedure (procedure) 12:00:00 AM Hospit al EDT Diagnostic radiography of 01/31/2019 [place] abdomen (procedure) 12:00:00 AM Hospital EDT Electrocardiographic 01/29/2019 [place] procedure (procedure) 12:00:00 AM Hospit al EDT Computed tomography of 01/09/2019 [place] abdominal vascular 12:00:00 AM Hospital structures (procedure) EDT Computed tomography of 01/09/2019 [place] abdominal vascular 12:00:00 AM Hospital structures (procedure) EDT Physical therapy procedure 01/08/2019 [facility] [place] (regime/therapy) 12:00:00 AM Hospital EDT Physical therapy procedure 01/08/2019 [facility] [place] (regime/therapy) 12:00:00 AM Hospital EDT Oxygen therapy (procedure) 01/06/2019 [facility] [place] 12:00:00 AM Hospital EDT DETACHMENT AT RIGHT LOWER 01/06/2019 [place] LEG, HIGH, OPEN APPROACH 12:00:00 AM [facility] pital EDT TRANSFUSE NONAUT RED BLOOD 01/06/2019 [facility] [place] CELLS IN PERIPH VEIN, PERC 12:00:00 AM H ospital EDT Oxygen therapy (procedure) 01/06/2019 [facility] [place] 12:00:00 AM Hospital EDT Physical therapy procedure 01/04/2019 [facility] [place] (regime/therapy) 12:00:00 AM Hospital EDT Physical therapy procedure 01/04/2019 [facility] [place] (regime/therapy) 12:00:00 AM Hospital EDT Ultrasonography of abdomen 12/31/2018 [facility] [place] (procedure) 12:00:00 AM Hospital EDT Ultrasonography of abdomen 12/31/2018 [facility] [place] (procedure) 12:00:00 AM Hospital EDT Plain chest X-ray 12/29/2018 [place] (procedure) 12:00:00 AM Hospital EDT Plain chest X-ray 12/29/2018 [place] (procedure) 12:00:00 AM Hospital EDT INSERTION OF INFUSION 12/29/2018 [place] DEVICE INTO R ATRIUM, PERC 12:00:00 AM H ospital APPROACH EDT EXCISION OF LOWER 12/29/2018 [place] ESOPHAGUS, ENDO, DIAGN 12:00:00 AM [facility] EDT EXCISION OF DUODENUM, ENDO, 12/29/2018 [place] DIAGN 12:00:00 AM Hospital EDT Plain chest [...] Probe Cover With Gel 48 In. 12/24/2018 [place] 12:00:00 AM Hospital EDT Ultrasound scan of upper 12/24/2018 [place] limb vessels (procedure) 12:00:00 AM Hos pital EDT PowerGlide ST 18G x 10CM 12/24/2018 [place] 12:00:00 AM Hospital EDT Probe Cover With Gel 48 In. 12/24/2018 [place] 12:00:00 AM Hospital EDT Ultrasound scan of upper 12/24/2018 [place] limb vessels (procedure) 12:00:00 AM Hos pital EDT PowerGlide ST 18G x 10CM 12/24/2018 [place] 12:00:00 AM Hospital EDT Physical therapy procedure 12/23/2018 [facility] [place] (regime/therapy) 12:00:00 AM Hospital EDT Physical therapy procedure 12/23/2018 [facility] [place] (regime/therapy) 12:00:00 AM Hospital EDT Echocardiography 12/22/2018 [place] (procedure) 12:00:00 AM Hospital EDT Plain chest X-ray 12/22/2018 [place] (procedure) 12:00:00 AM Hospital EDT Echocardiography 12/22/2018 [place] (procedure) 12:00:00 AM Hospital EDT Plain chest X-ray 12/22/2018 [place] (procedure) 12:00:00 AM Hospital EDT DRAINAGE OF RIGHT LOWER LEG 12/21/2018 [facility] MUSCLE, OPEN APPROACH 12:00:00 AM Hospit al [...] ST 18G x 8CM 12/13/2018 [place] 12:00:00 AM Hospital EDT PowerGlide ST 18G x 8CM 12/13/2018 [place] 12:00:00 AM Hospital EDT Doppler ultrasound of 12/06/2018 [place] vessels of both lower 12:00:00 AM Hospit [...] AM Hospital EDT Doppler ultrasound of 12/06/2018 [place] vessels of both lower 12:00:00 AM Hospit [...] Hospital EDT Results ID Date Data Source [id number] 01/20/2020 09:10:00 PM EDT [facility] Name Value Range Interpretation Description Data Sup porting Code Source(s) Document(s ) SARS [facility] coronavirus 2 RNA This lab was ordered by [facility] and reported by [facility]. ID Date Data Source [id number] 01/07/2020 05:37:00 AM EDT [facility] Name Value Range Interpretation Description Data Sup porting Code Source(s) Document(s ) SARS [facility] coronavirus 2 RNA This lab was ordered by [facility] and reported by [facility]. ID Date Data Source [id number] 12/04/2019 10:30:00 PM EDT [facility] Name Value Range Interpretation Description Data Sup porting Code Source(s) Document(s ) SARS [facility] coronavirus 2 RNA This lab was ordered by [facility] and reported by [facility]. ID Date Data Source [id number] 11/10/2019 06:03:00 PM EDT [facility] Name Value Range Interpretation Description Data Sup porting Code Source(s) Document(s ) SARS [facility] coronavirus 2 RNA This lab was ordered by [facility] and reported by [facility]. ID Date Data Source [id number] 11/07/2019 01:25:00 PM EDT [facility] Name Value Range Interpretation Description Data Sup porting Code Source(s) Document(s ) SARS [facility] coronavirus 2 RNA This lab was ordered by [facility] and reported by [facility]. ID Date Data Source [id number] 10/27/2019 04:47:00 PM EDT [facility] Name Value Range Interpretation Description Data Sup porting Code Source(s) Document(s ) 2019 Novel [facility] Coronavirus RNA Interpretation Unspecified Specimen Qualitative MEG Probe Detection This lab was ordered by [facility] and reported by [facility]. ID Date Data Source [id number] 10/23/2019 07:21:33 PM EDT [facility] Name Value Range Interpretation Description Data [...] th e patient. ID Date Data Source [id number] 10/23/2019 07:21:33 PM EDT [facility] [...] / 6:19 AM ID Date Data Source [id number] 10/23/2019 07:21:33 PM EDT [facility] Name Value Range Interpretation Description Data Sup porting Code Source(s) Document(s ) 83816-7 NEGATIVE Testing Normal (applies COVID-19.. [facility] [...] Range: NEGATIVE . ID Date Data Source [id number] 10/23/2019 07:21:33 PM EDT [facility] [...] Health results) System ID Date Data Source [id number] 10/23/2019 07:21:33 PM EDT [facility]una [...] urine test abnormalities ID Date Data Source [id number] 10/23/2019 07:21:33 PM EDT [facility] [...] Heart = 3.0-4.5 ID Date Data Source [id number] 10/23/2019 07:21:33 PM EDT [facility] Name Value Range Interpretation Description Data Sup porting Code Source(s) Document(s ) aPTT in Blood 29.3 Normal (applies Activated [facility] by Coagulation {Seconds to non-numeric Partial Health assay } results) Thromboplastin System Time ID Date Data Source [id number] 10/23/2019 11:18:00 AM EDT [facility] Nuclear Medicine Examination: Lung Perfu moisés [...] would berecomme nded.ElectronicallySigned:Lon Bowie, at 11:54 EDTTel [phone], Service support ,[phone] Name Value Range Interpretation Code Description Data Jackie rce(s) Supporting Document(s ) ID Date Data Source [id number] 10/23/2019 05:32:00 AM EDT [facility] Name Value Range Interpretation Code Description Data Jackie rce(s) Supporting Document(s ) COVID-19.. [facility] This lab was ordered by [facility] ID Date Data Source [id number] 10/23/2019 05:09:00 AM EDT [facility] HISTORY: Fever;EXAMINATION/TECHNIQUE:XR Chest 1 View:COMPARISON: None FINDINGS:LINES/DEVICES:None.LUNG S:No airspace consolidation.Unremarkable inte rstitium.No effusion.Nopneumothorax.MEDIASTINUM: No cardiomegaly.MUSCULOSKELETAL: No acute osseousfinding.IMPRESSION:No evidence of acute cardiopulmonary process. ElectronicallySigned by Clemente Mays MD on 10/23/2019 at 0602 Reported and signed by: Clemente Mays MDEnvision Ph ysician ServicesSHCR DR CLEMENTE MAYS MS [phone]:Ronnell Mays MD at 6:02 EDTTel , Service support 8-5 11-2003,[phone] Name Value Range Interpretation Code Description Data Jackie rce(s) Supporting Document(s ) ID Date Data Source [id number] 10/17/2019 06:30:00 PM EDT [facility] Name Value Range Interpretation Description Data Sup porting Code Source(s) Document(s ) SARS [facility] coronavirus 2 RNA This lab was ordered by [facility] and reported by [facility]. ID Date Data Source [id number] 10/11/2019 05:04:00 PM EDT [facility] Name Value Range Interpretation Description Data Sup porting Code Source(s) Document(s ) SARS [facility] coronavirus 2 RNA This lab was ordered by [facility] and reported by [facility]. ID Date Data Source [id number] 10/11/2019 06:29:00 AM EDT [facility] Name Value Range Interpretation Description Data Sup porting Code Source(s) Document(s ) SARS [facility] coronavirus 2 RNA This lab was ordered by [facility] and reported by [facility]. ID Date Data Source [id number] 10/01/2019 09:30:00 PM EDT [facility] Name Value Range Interpretation Description Data Sup porting Code Source(s) Document(s ) SARS [facility] coronavirus 2 RNA This lab was ordered by [facility] and reported by [facility]. ID Date Data Source [id number] 10/01/2019 12:06:00 PM EDT [facility] Name Value Range Interpretation Description Data Sup porting Code Source(s) Document(s ) SARS [facility] coronavirus 2 RNA This lab was ordered by [facility] and reported by [facility]. ID Date Data Source [id number] 09/24/2019 03:15:00 AM EDT [facility] Name Value Range Interpretation Description Data Sup porting Code Source(s) Document(s ) 2019 Novel [facility] Coronavirus RNA Interpretation Unspecified Specimen Qualitative MEG Probe Detection This lab was ordered by [facility] and reported by [facility]. ID Date Data Source [id number] 09/03/2019 02:51:00 AM EDT [facility] Name Value Range Interpretation Code Description Data Jackie rce(s) Supporting Document(s ) SARS-CoV-2 [facility] N gene Resp Ql MEG+probe This lab was ordered by [facility] and reported by [facility]. ID Date Data Source [id number] 08/26/2019 02:01:00 AM EDT [facility] Name Value Range Interpretation Description Data Sup porting Code Source(s) Document(s ) 2018 Novel [facility] Coronavirus RNA Interpretation Unspecified Specimen Qualitative MEG Probe Detection This lab [facility] Hospitals and reported by [facility]. ID Date Data Source [id number] 08/11/2019 03:01:00 AM EDT [facility] Name Value Range Interpretation Description Data Sup porting Code Source(s) Document(s ) 2018 Novel [facility] Coronavirus RNA Interpretation Unspecified Specimen Qualitative MEG Probe Detection This lab was ordered by [facility] and reported by [facility]. ID Date Data Source [id number] 08/11/2019 03:01:00 AM EDT [facility] Name Value Range Interpretation Description Data Sup porting Code Source(s) Document(s ) 2018 Novel [facility] Coronavirus RNA Interpretation Unspecified Specimen Qualitative MEG Probe Detection This lab was ordered by [facility] and reported by [facility]. ID Date Data Source [id number] 06/25/2019 07:34:00 AM EDT [facility] Added by Discern Rule GLB_ADD_GFR_BMP Name Value Range Interpretation Code Description Data Jackie rce(s) Supporting Document(s ) eGFR-AA 62 >=60 NO [facility] mL/min/1.[address] The CKD-EPI equation for non- Nini [...] Mild decrease* G3a 45-59 Mild to moderate [id number] 30-44 Moderate to s evere decreaseG4 15-29 Severe decreaseG5 14 or less Kidney fa ilure eGFR-MEG 51 mL/min/1.73m2 >=60 LO [facility] The CKD-EPI equation for non- Nini [...] Mild decrease* G3a 45-59 Mild to moderate [id number] 30-44 Moderate to s evere decreaseG4 15-29 Severe decreaseG5 14 or less Kidney fa ilure ID Date Data Source [id number] 06/25/2019 07:34:00 AM EDT [facility] Name Value Range Interpretation Description Data Sup porting Code Source(s) Document(s ) Glucose Lvl 172 65-99 [place] mg/dL [facility] BUN 25.0 7.0-21.0 [place] mg/dL [facility] Creatinine 1.45 0.70-1.2 [place] mg/dL 0 [facility] BUN/Creat 17.2 7.0-29.0 [place] Ratio ratio [facility] Sodium Lvl 136 136-146 [place] mmol/L [facility] Potassium Lvl 3.1 3.5-5.1 [place] mmol/L [facility] Chloride 101 98-109 [place] mmol/L [facility] CO2 27 17-33 [place] mmol/L [facility] AGAP 8 5-15 [place] [facility] Calcium Lvl 8.5 8.3-10.2 [place] mg/dL [facility] ID Date Data Source [id number] 06/25/2019 07:03:00 AM EDT [facility] Name Value Range Interpretation Description Data Sup porting Code Source(s) Document(s ) Neut Auto 60.7 % 40.0-70.0 NO [facility] Lymph Auto 29.6 % 22.0-44.0 NO [facility] [place] Auto 9.2 % 4.0-11.0 NO [facility] Eos Auto 0.2 % 0.0-8.0 NO [facility] Baso Auto 0.3 % 0.0-3.0 NO [facility] Neut 5.2 1.8-7.7 [place] Absolute x10(3)/[facility] Lymph 2.5 1.0-4.8 [place] Absolute x10(3)/[facility] [place] 0.8 0.2-1.2 [place] Absolute x10(3)/[facility] Eos Absolute 0.0 0.0-0.9 [place] x10(3)/[facility] Baso 0.0 0.0-0.3 [place] Absolute x10(3)/[facility] ID Date Data Source [id number] 06/25/2019 07:03:00 AM EDT [facility] Name Value Range Interpretation Description Data Sup porting Code Source(s) Document(s ) WBC 8.5 4.5-11.0 [place] x10(3)/[facility] RBC 3.71 4.50-5.90 [place] x10(6)/[facility] Hgb 9.1 gm/dL 13.5-17.5 [facility] Hct 28.2 % 41.0-53.0 [facility] MCV 76 fL 80-100 [facility] MCH 24.5 pg 26.0-34.0 [facility] MCHC 32.2 31.0-37.0 [facility] gm/dL [facility] RDW 14.8 % 11.5-14.5 [facility] Platelet 379 150-350 [facility] x10(3)/[facility] MPV 7.1 fL 7.4-10.4 [facility] ID Date Data Source [id number] 06/24/2019 09:35:00 AM EDT [facility] Name Value Range Interpretation Description Data Sup porting Code Source(s) Document(s ) Phosphorus 4.3 mg/dL 2.5-5.0 [facility] ID Date Data Source [id number] 06/24/2019 09:35:00 AM EDT [facility] patient refused blood work.CIELO Burris was notified.As per patient request, RN to draw blood from port .06/24/2019 08:07:16 EDT, ENK Name Value Range Interpretation Description Data Sup porting Code Source(s) Document(s ) Magnesium 1.9 mg/dL 1.6-2.5 [facility] ID Date Data Source [id number] 06/24/2019 09:35:00 AM EDT [facility] Added by Discern Rule GLB_ADD_GFR_CMP Name Value Range Interpretation Code Description Data Jackie rce(s) Supporting Document(s ) eGFR-AA 38 >=60 [facility] mL/min/1.[address] [place] [address] The CKD-EPI equation for non- Nini rican [...] Mild decrease* G3a 45-59 Mild to moderate [id number] 30-44 Moderate to s evere decreaseG4 15-29 Severe decreaseG5 14 or less Kidney fa ilure eGFR-MEG 31 mL/min/1.73m2 >=60 LO [facility] The CKD-EPI equation for non- Nini [...] Mild decrease* G3a 45-59 Mild to moderate [id number] 30-44 Moderate to s evere decreaseG4 15-29 Severe decreaseG5 14 or less Kidney fa reji ID Date Data Source [id number] 06/24/2019 09:35:00 AM EDT [facility] patient refused blood work .Cielo Burris was notified.As per patient request , Rn to draqw blood from port.06/24/2019 08:05:11 EDT, ENK Name Value Range Interpretation Description Data Sup porting Code Source(s) Document(s ) Glucose Lvl 151 65-99 [place] mg/dL [facility] BUN 29.0 7.0-21.0 [place] mg/dL [facility] Creatinine 2.20 0.70-1.2 [place] mg/dL 0 [facility] BUN/Creat 13.2 7.0-29.0 [place] Ratio ratio [facility] Sodium Lvl 137 136-146 [place] mmol/L [facility] Potassium Lvl 3.5 3.5-5.1 [place] mmol/L [facility] Chloride 100 98-109 [place] mmol/L [facility] CO2 26 17-33 [place] mmol/L [facility] AGAP 11 5-15 NO [facility] Calcium Lvl 8.3 8.3-10.2 [place] mg/dL [facility] Total Protein 7.2 6.0-8.3 [place] gm/dL [facility] Albumin Lvl 3.0 3.7-5.3 [place] gm/dL [facility] Glob 4.2 2.0-4.5 [place] gm/dL [facility] A/G Ratio 0.7 1.0-2.2 [place] ratio [facility] Bili Total 0.3 0.4-1.1 [place] mg/dL [facility] Alk Phos 106 IU/L 30-125 NO [facility] AST 11 IU/L 10-35 NO [facility] ALT 11 IU/L 8-40 NO [facility] ID Date Data Source [id number] 06/24/2019 09:15:00 AM EDT [facility] Name Value Range Interpretation Description Data Sup porting Code Source(s) Document(s ) Neut Auto 65.3 % 40.0-70.0 [facility] Lymph Auto 25.1 % 22.0-44.0 [facility] [place] Auto 9.2 % 4.0-11.0 NO [facility] Eos Auto 0.2 % 0.0-8.0 NO [facility] Baso Auto 0.2 % 0.0-3.0 NO [facility] Neut 6.0 1.8-7.7 [place] Absolute x10(3)/[facility] Lymph 2.3 1.0-4.8 [place] Absolute x10(3)/[facility] [place] 0.8 0.2-1.2 [place] Absolute x10(3)/[facility] Eos Absolute 0.0 0.0-0.9 [place] x10(3)/[facility] Baso 0.0 0.0-0.3 [place] Absolute x10(3)/[facility] ID Date Data Source [id number] 06/24/2019 09:15:00 AM EDT [facility] patient refused blood work . Cielo Burris no felipe.As per PAtient request , Rn has to draw patient from port .06/24/2019 08:03: 02 EDT, ENK Name Value Range Interpretation Description Data Sup porting Code Source(s) Document(s ) WBC 9.2 4.5-11.0 [place] x10(3)/[facility] RBC 3.60 4.50-5.90 [place] x10(6)/[facility] Hgb 9.0 gm/dL 13.5-17.5 [facility] Hct 27.6 % 41.0-53.0 [facility] MCV 77 fL 80-100 [facility] MCH 24.9 pg 26.0-34.0 [facility] MCHC 32.5 31.0-37.0 [place] gm/dL [facility] RDW 15.1 % 11.5-14.5 [facility] Platelet 395 150-350 [place] x10(3)/[facility] MPV 7.3 fL 7.4-10.4 [facility] ID Date Data Source [id number] 06/23/2019 04:40:00 PM EDT [facility] Patient Name: KARSTEN GIBBS EMRN: [id number] Interventional RadiologyACCESSION EXAM DATE/TIME PROCEDURE ORDERING PROVIDER [id number] 06/23/2019 16:01 EDT IR Ins Picc Wo [...] subcu taneous infiltrationAccess: Right brachial veinDevice: 4 Syrian by 35 cmClosure: Dr elias sterile dressingContrast: [...] time of puncture, and sent to the [place] CS. The catheter was tested, demonstrating good [...] Supporting Document(s ) ID Date Data Source [id number] 06/23/2019 05:05:00 AM EDT [facility] Patient Name: KARSTEN GIBBS EMRN: [id number] Computed TomographyACCESSION EXAM DATE/TIME PROCEDURE ORDERING PROVIDER [id number] 06/23/2019 04:[address] Abdomen Pelvis Myra [...] you for allowing us to participate in e evaluation of this patient. Final Dictated: Lucita CLINTON, Lon Avendano 0 06/23/19 04:54Signed: Lon Landrum MD 06/23/19 05:05Transcribed by: BRG Name Value Range Interpretation Code Description Data Jackie rce(s) Supporting Document(s ) ID Date Data Source [id number] 06/23/2019 04:12:00 AM EDT [facility] Name Value Range Interpretation Description Data Sup porting Code Source(s) Document(s ) Segs 89 % 40-70 [facility] Band 0 % 0-6 [facility] Neutr 16.8 1.8-7.7 [facility] Absolute x10(3)/[facility] Lymph 8 % 22-44 [facility] Monocyte 3 % 4-11 [facility] Eos 0 % 0-8 [facility] Basophil 0 % 0-3 [facility] RBC Morph Normocyt AB [facility] Anisocyte [facility] Platelet NO [facility] Plt Estimate [facility] ID Date Data Source [id number] 06/23/2019 03:38:00 AM EDT [facility] Added by Discern Rule GLB_ADD_GFR_CMP Name Value Range Interpretation Code Description Data Jackie rce(s) Supporting Document(s ) eGFR-AA 74 >=60 [facility] mL/min/1.[address] The CKD-EPI equation for non- Nini [...] Mild decrease* G3a 45-59 Mild to moderate ajirowleE0s 30-44 Moderate to s evere decreaseG4 15-29 Severe decreaseG5 14 or less Kidney fa ilure eGFR-MEG 61 mL/min/1.73m2 >=60 [facility] The CKD-EPI equation for non- Nini [...] Mild decrease* G3a 45-59 Mild to moderate [id number] 30-44 Moderate to s evere decreaseG4 15-29 Severe decreaseG5 14 or less Kidney fa ilure ID Date Data Source [id number] 06/23/2019 03:38:00 AM EDT [facility] Name Value Range Interpretation Code Description Data Jackie rce(s) Supporting Document(s ) Lipase Lvl 19 IU/L 10-59 NO [facility] ID Date Data Source [id number] 06/23/2019 03:38:00 AM EDT [facility] Name Value Range Interpretation Description Data Sup porting Code Source(s) Document(s ) Glucose Lvl 202 65-99 [place] mg/dL [facility] BUN 15.0 7.0-21.0 [place] mg/dL [facility] Creatinine 1.24 0.70-1.2 [place] mg/dL 0 [facility] BUN/Creat 12.1 7.0-29.0 [place] Ratio ratio [facility] Sodium Lvl 132 136-146 [place] mmol/L [facility] Potassium Lvl 4.1 3.5-5.1 [place] mmol/L [facility] Chloride 98 98-109 [place] mmol/L [facility] CO2 21 17-33 [place] mmol/L [facility] AGAP 13 5-15 NO [facility] Calcium Lvl 8.8 8.3-10.2 [place] mg/dL [facility] Total Protein 8.1 6.0-8.3 [place] gm/dL [facility] Albumin Lvl 3.1 3.7-5.3 [place] gm/dL [facility] Glob 5.0 2.0-4.5 [place] gm/dL [facility] A/G Ratio 0.6 1.0-2.2 [place] ratio [facility] Bili Total 1.1 0.4-1.1 [place] mg/dL [facility] Alk Phos 128 IU/L 30-125 HI [facility] AST 28 IU/L 10-35 NO [facility] ALT 15 IU/L 8-40 NO [facility] ID Date Data Source [id number] 06/23/2019 03:35:00 AM EDT [facility] Name Value Range Interpretation Description Data Sup porting Code Source(s) Document(s ) WBC 18.9 4.5-11.0 [facility] x10(3)/[facility] RBC 4.01 4.50-5.90 [facility] Hgb 9.9 gm/dL 13.5-17.5 [facility] Hct 30.2 % 41.0-53.0 [facility] MCV 76 fL 80-100 [facility] MCH 24.8 pg 26.0-34.0 [facility] MCHC 32.8 31.0-37.0 [facility] gm/dL [facility] RDW 15.1 % 11.5-14.5 [facility] Platelet 404 150-350 [facility] x10(3)/[facility] MPV 8.7 fL 7.4-10.4 [facility] ID Date Data Source [id number] 06/23/2019 03:16:00 AM EDT [facility] Name Value Range Interpretation Description Data Sup porting Code Source(s) Document(s ) Troponin- 0.01 0.02-0.05 [facility] I ng/mL [facility] ID Date Data Source [id number] 06/09/2019 05:56:00 PM EST [facility] Added by Discern Rule GLB_ADD_GFR_BMP Name Value Range Interpretation Code Description Data Jackie rce(s) Supporting Document(s ) eGFR-AA 74 >=60 [facility] mL/min/[address] [place] [address] The CKD-EPI equation for non- Nini rican [...] Mild decrease* G3a 45-59 Mild to moderate [id number] 30-44 Moderate to s evere decreaseG4 15-29 Severe decreaseG5 14 or less Kidney fa ilure eGFR-MEG 61 mL/min/1.73m2 >=60 NO [facility] The CKD-EPI equation for non- [place]anner rican individuals is used to calculate the [...] Mild decrease* G3a 45-59 Mild to moderate [id number] 30-44 Moderate to s evere decreaseG4 15-29 Severe decreaseG5 14 or less Kidney fa ilure ID Date Data Source [id number] 06/09/2019 05:56:00 PM [facility] Name Value Range Interpretation Description Data Sup porting Code Source(s) Document(s ) Magnesium 2.0 mg/dL 1.6-2.5 NO [facility] ID Date Data Source [id number] 06/09/2019 05:56:00 PM [facility] PATIENT ASKED TO COME BACK IN 30 MINS BRIDGET 06/09/2019 15:47:54 EST Name Value Range Interpretation Description Data Sup porting Code Source(s) Document(s ) Glucose Lvl 218 65-99 [place] mg/dL [facility] BUN 19.0 7.0-21.0 [place] mg/dL [facility] Creatinine 1.24 0.70-1.2 [place] mg/dL 0 [facility] BUN/Creat 15.3 7.0-29.0 [place] Ratio ratio [facility] Sodium Lvl 129 136-146 [place] mmol/L [facility] Potassium Lvl 3.7 3.5-5.1 [place] mmol/L [facility] Chloride 99 98-109 [place] mmol/L [facility] CO2 22 17-33 [place] mmol/L [facility] AGAP 8 5-15 NO [facility] Calcium Lvl 8.0 8.3-10.2 [place] mg/dL [facility] ID Date Data Source [id number] 06/09/2019 09:59:00 PM EST [facility] Name Value Range Interpretation Description Data Sup porting Code Source(s) Document(s ) U Osmolality 601 50-1200 [facility] Test performed on the [employer] Micro-Osm ometer using freezing point depression. ID Date Data Source [id number] 06/09/2019 04:24:00 PM EST [facility] Name Value Range Interpretation Code Description Data Jackie rce(s) Supporting Document(s ) U Sodium 124 mmol/L NA [facility] Normal ranges for Sodium in random urine are diet dependent. U Potassium 27.6 mmol/L NA [facility] Normal ranges for Potassium in random ur ine are diet dependent. U Chloride 133 mmol/L 15-400 NO [facility] Normal ranges for Chloride in random uri ne are diet dependent. ID Date Data Source [id number] 06/09/2019 07:14:00 AM EST [facility] Name Value Range Interpretation Description Data Sup porting Code Source(s) Document(s ) Magnesium 1.7 mg/dL 1.6-2.5 NO [facility] ID Date Data Source [id number] 06/09/2019 07:14:00 AM EST [facility] Added by Discern Rule GLB_ADD_GFR_BMP Name Value Range Interpretation Code Description Data Jackie rce(s) Supporting Document(s ) eGFR-AA 84 >=60 [facility] mL/min/1.[address] The CKD-EPI equation for non- [place]anner rican individuals is used to calculate the [...] Mild decrease* G3a 45-59 Mild to moderate [id number] 30-44 Moderate to s evere decreaseG4 15-29 Severe decreaseG5 14 or less Kidney fa ilure eGFR-MEG 69 mL/min/1.73m2 >=60 NO [facility] The CKD-EPI equation for non- Nini [...] Mild decrease* G3a 45-59 Mild to moderate [id number] 30-44 Moderate to s evere decreaseG4 15-29 Severe decreaseG5 14 or less Kidney fa ilure ID Date Data Source [id number] 06/09/2019 07:14:00 AM [facility] Name Value Range Interpretation Description Data Sup porting Code Source(s) Document(s ) Glucose Lvl 150 65-99 [place] mg/dL [facility] BUN 20.0 7.0-21.0 [place] mg/dL [facility] Creatinine 1.11 0.70-1.2 [place] mg/dL 0 [facility] BUN/Creat 18.0 7.0-29.0 [place] Ratio ratio [facility] Sodium Lvl 129 136-146 [place] mmol/L [facility] Potassium Lvl 2.9 3.5-5.1 [place] mmol/L [facility] Chloride 99 98-109 [place] mmol/L [facility] CO2 22 17-33 [place] mmol/L [facility] AGAP 8 5-15 [facility] Calcium Lvl 8.3 8.3-10.2 [place] mg/dL [facility] ID Date Data Source [id number] 06/08/2019 08:05:00 AM [facility] Added by Discern Rule GLB_ADD_GFR_BMP Name Value Range Interpretation Code Description Data Jackie rce(s) Supporting Document(s ) eGFR-AA 86 >=60 NO [facility] mL/min/1.[address] [place] [address] The CKD-EPI equation for non- Nini rican [...] Mild decrease* G3a 45-59 Mild to moderate aqmitxagR0x 30-44 Moderate to s evere decreaseG4 15-29 Severe decreaseG5 14 or less Kidney fa ilketty eGFR-MEG 71 mL/min/1.73m2 >=60 NO [facility] The CKD-EPI equation for non- [...] Mild decrease* G3a 45-59 Mild to moderate eyiwfppvM2j 30-44 Moderate to s evere decreaseG4 15-29 Severe decreaseG5 14 or less Kidney fa reji ID Date Data Source [id number] 06/08/2019 08:05:00 AM EST [facility] Name Value Range Interpretation Description Data Sup porting Code Source(s) Document(s ) Glucose Lvl 158 65-99 [place] mg/dL [facility] BUN 21.0 7.0-21.0 [place] mg/dL [facility] Creatinine 1.09 0.70-1.2 [place] mg/dL 0 [facility] BUN/Creat 19.3 7.0-29.0 [place] Ratio ratio [facility] Sodium Lvl 131 136-146 [place] mmol/L [facility] Potassium Lvl 3.0 3.5-5.1 [place] mmol/L [facility] Chloride 100 98-109 [place] mmol/L [facility] CO2 23 17-33 [place] mmol/L [facility] AGAP 8 5-15 NO [facility] Calcium Lvl 8.5 8.3-10.2 [place] mg/dL [facility] ID Date Data Source [id number] 06/07/2019 08:50:00 AM EST [facility] Name Value Range Interpretation Description Data Sup porting Code Source(s) Document(s ) Neut Auto 67.3 % 40.0-70.0 NO [facility] Lymph Auto 21.9 % 22.0-44.0 LO [facility] [place] Auto 10.1 % 4.0-11.0 NO [facility] Eos Auto 0.3 % 0.0-8.0 NO [facility] Baso Auto 0.4 % 0.0-3.0 NO [facility] Neut 6.2 1.8-7.7 [place] Absolute x10(3)/[facility] Lymph 2.0 1.0-4.8 [place] Absolute x10(3)/[facility] [place] 0.9 0.2-1.2 [place] Absolute x10(3)/[facility] Eos Absolute 0.0 0.0-0.9 [place] x10(3)/[facility] Baso 0.0 0.0-0.3 [place] Absolute x10(3)/[facility] ID Date Data Source [id number] 06/07/2019 08:50:00 AM EST [facility] Name Value Range Interpretation Description Data Sup porting Code Source(s) Document(s ) WBC 9.1 4.5-11.0 [place] x10(3)/[facility] RBC 4.07 4.50-5.90 [place] x10(6)/[facility] Hgb 10.2 13.5-17.5 [place] gm/dL [facility] Hct 31.2 % 41.0-53.0 [facility] MCV 77 fL 80-100 [facility] MCH 25.1 pg 26.0-34.0 [facility] MCHC 32.8 31.0-37.0 NO [facility] gm/dL [facility] RDW 14.7 % 11.5-14.5 [facility] Platelet 283 150-350 NO [facility] x10(3)/[facility] MPV 7.9 fL 7.4-10.4 [facility] ID Date Data Source [id number] 06/07/2019 08:02:00 AM [facility] Added by Discern Rule GLB_ADD_GFR_RENAL Name Value Range Interpretation Code Description Data Jackie rce(s) Supporting Document(s ) eGFR-AA >90 >=60 [facility] mL/min/[address] The CKD-EPI equation for non- [place]anner r[place] individuals is used to calculate the [...] Mild decrease* G3a 45-59 Mild to moderate xjkzshtkL4q 30-44 Moderate to s evere decreaseG4 15-29 Severe decreaseG5 14 or less Kidney fa ilure eGFR-EMG 77 mL/min/1.73m2 >=60 [facility] The CKD-EPI equation for non- Nini [...] Mild decrease* G3a 45-59 Mild to moderate gzqvmvsiR4g 30-44 Moderate to s evere decreaseG4 15-29 Severe decreaseG5 14 or less Kidney fa ilure ID Date Data Source [id number] 06/07/2019 08:02:00 AM [facility] Name Value Range Interpretation Description Data Sup porting Code Source(s) Document(s ) Albumin Lvl 2.8 3.7-5.3 [place] gm/dL [facility] Calcium Lvl 8.2 8.3-10.2 [place] mg/dL [facility] CO2 23 17-33 [place] mmol/L [facility] Chloride 103 98-109 [place] mmol/L [facility] Creatinine 1.01 0.70-1.2 [place] mg/dL 0 [facility] Glucose Lvl 162 65-99 [place] mg/dL [facility] Phosphorus 2.3 2.5-5.0 [place] mg/dL [facility] BUN 19.0 7.0-21.0 [place] mg/dL [facility] Sodium Lvl 133 136-146 [place] mmol/L [facility] Potassium Lvl 3.1 3.5-5.1 [place] mmol/L [facility] BUN/Creat 18.8 7.0-29.0 [place] Ratio ratio [facility] ID Date Data Source [id number] 06/07/2019 08:02:00 AM EST [facility] Name Value Range Interpretation Description Data Sup porting Code Source(s) Document(s ) Magnesium 1.8 mg/dL 1.6-2.5 NO [facility] ID Date Data Source [id number] 06/06/2019 01:07:00 PM [facility] Patient Name: KARSTEN GIBBS EMRN: [id number] General DiagnosticACCESSION EXAM DATE/TIME PROCEDURE ORDERING PROVIDER [id number] 06/06/2019 13:01 EST XR Abdomen 2 Views Solitario CLINTON, Dequan Floyd (Verified)[place] son For Exam(XR Abdomen 2 Views) Abd [...] Supporting Document(s ) ID Date Data Source [id number] 06/06/2019 09:04:00 AM [facility] Name Value Range Interpretation Description Data Sup porting Code Source(s) Document(s ) Magnesium 2.0 mg/dL 1.6-2.5 NO [facility] ID Date Data Source [id number] 06/06/2019 09:04:00 AM [facility] Added by Discern Rule GLB_ADD_GFR_CMP Name Value Range Interpretation Code Description Data Jackie rce(s) Supporting Document(s ) eGFR-AA 69 >=60 NO [facility] mL/min/[address] The CKD-EPI equation for non- Nini [...] Mild decrease* G3a 45-59 Mild to moderate [id number] 30-44 Moderate to s evere decreaseG4 15-29 Severe decreaseG5 14 or less Kidney fa ilure eGFR-MEG 57 mL/min/1.73m2 >=60 [facility] The CKD-EPI equation for non- Nini rican [...] Mild decrease* G3a 45-59 Mild to moderate [id number] 30-44 Moderate to s evere decreaseG4 15-29 Severe decreaseG5 14 or less [facility] ID Date Data Source [id number] 06/06/2019 09:04:00 AM EST [facility] Name Value Range Interpretation Description Data Sup porting Code Source(s) Document(s ) Glucose Lvl 149 65-99 [place] mg/dL [facility] BUN 28.0 7.0-21.0 [place] mg/dL [facility] Creatinine 1.32 0.70-1.2 [place] mg/dL 0 [facility] BUN/Creat 21.2 7.0-29.0 [place] Ratio ratio [facility] Sodium Lvl 134 136-146 [place] mmol/L [facility] Potassium Lvl 3.2 3.5-5.1 [place] mmol/L [facility] Chloride 104 98-109 [place] mmol/L [facility] CO2 21 17-33 [place] mmol/L [facility] AGAP 9 5-15 NO [facility] Calcium Lvl 8.1 8.3-10.2 [place] mg/dL [facility] Total Protein 7.7 6.0-8.3 NO [place] gm/dL [facility] Albumin Lvl 3.2 3.7-5.3 [place] gm/dL [facility] Glob 4.5 2.0-4.5 NO [place] gm/dL [facility] A/G Ratio 0.7 1.0-2.2 [place] ratio [facility] Bili Total 0.8 0.4-1.1 [place] mg/dL [facility] Alk Phos 91 IU/L 30-125 [facility] AST 13 IU/L 10-35 [facility] ALT 13 IU/L 8-40 [facility] ID Date Data Source [id number] 06/06/2019 08:43:00 AM EST [facility] Name Value Range Interpretation Description Data Sup porting Code Source(s) Document(s ) Neut Auto 74.4 % 40.0-70.0 [facility] Lymph Auto 16.3 % 22.0-44.0 [facility] Auto 8.5 % 4.0-11.0 [facility] Eos Auto 0.4 % 0.0-8.0 [facility] Baso Auto 0.4 % 0.0-3.0 [facility] Neut 7.6 1.8-7.7 [place] Absolute x10(3)/[facility] Lymph 1.7 1.0-4.8 NO [place] Absolute x10(3)/[facility] [place] 0.9 0.2-1.2 NO [place] Absolute x10(3)/[facility] Eos Absolute 0.0 0.0-0.9 [place] x10(3)/[facility] Baso 0.0 0.0-0.3 [place] Absolute x10(3)/[facility] ID Date Data Source [id number] 06/06/2019 08:43:00 AM EST [facility] Name Value Range Interpretation Description Data Sup porting Code Source(s) Document(s ) WBC 10.2 4.5-11.0 [facility] RBC 3.90 4.50-5.90 [facility] x10(6)/[facility] Hgb 9.6 gm/dL 13.5-17.5 [facility] Hct 30.6 % 41.0-53.0 [facility] MCV 78 fL 80-100 [facility] MCH 24.5 pg 26.0-34.0 [facility] MCHC 31.3 31.0-37.0 NO van gm/dL [facility] RDW 14.8 % 11.5-14.5 [facility] Platelet 296 150-350 NO [facility] x10(3)/[facility] MPV 7.8 fL 7.4-10.4 [facility] ID Date Data Source [id number] 06/05/2019 08:46:00 PM [facility] UA Microscopic added by rubio Baron to an Abnormal Macroscopic Result. Name Value Range Interpretation Description Data Sup porting Code Source(s) Document(s ) UA WBC None Seen AB [facility] UA RBC None Seen AB [facility] UA Bacteria None Seen NO [facility] UA Hyal Cast None Seen AB [facility] UA Fine Gran None Seen [facility] ID Date Data Source [id number] 06/05/2019 08:39:00 PM EST [facility] Name Value Range Interpretation Description Data Sup porting Code Source(s) Document(s ) UA Color Yellow NO [facility] UA Appear Clear NO [facility] UA pH 5.0-8.0 NO [facility] UA Spec Grav 1.021 1.005-1.030 [facility] UA Glucose Negative [facility] UA Ketones Negative [facility] UA Urobilinogen 0.2-1.0 NO [facility] UA Bili Negative NO [facility] UA Blood Negative AB [facility] UA Protein Negative [facility] UA Nitrite Negative [facility] UA Leuk Est Negative NO [facility] ID Date Data Source [id number] 06/05/2019 08:39:00 PM EST [facility] Name Value Range Interpretation Description Data Sup porting Code Source(s) Document(s ) U Amph Not Detected NO [facility] Result created by Discern rule.Substance of abuse cutoff levels:Amphetamine...................... .....1000 mA/minBarbiturate....................... .....300 mA/minBenzodiazepine.................... .....200 mA/minCannibinoid....................... ......50 mA/minCocaine........................... .....300 mA/minOpiates........................... .....300 mA/minPhencyclidine (PCP).....................25 mA/minMetha done..............................300 mA/minPropoxypene....................... .....300 mA/minPlease note: This is a urine screening test only.Positive results are presumptive and are not confirmed by a secondary method. Unconfirmed screening results are to be used only for medical purposes. U Johanny Scr Not Detected NO [facility] Result created by NewHive rule. U Benzodia Scr Not Detected NO [facility] Result created by NewHive rule. U Cannab Scr Not Detected NO [facility] Result created by NewHive rule. U Cocaine Scr Not Detected NO [facility] Result created by NewHive rule. U Opiate Scr Not Detected NA [facility] Result created by NewHive rule.This Opia te assay does NOT detect the semi-synthetic opioids Oxycontin, Oxycodone, Percodan, or Percocet. U Phencyclidine Not Detected NO [facility] Result created by NewHive rule. U Propoxyphene Not Detected NA [facility] Result created by Discern rule. U Methadone Not Detected NO [facility] Result created by Discern rule. ID Date Data Source [id number] 06/06/2019 12:29:00 PM EST [facility] Name Value Range Interpretation Description Data Sup porting Code Source(s) Document(s ) Hemoglobin A1C 7.1 % <=5.6 [facility] 5.7-6.4% Pre-diabetes> 6.4% Diagno stic for diabetes(Summarized from [place] [employer] 2018 Standards)This test was performed using the Stormpulse Hb 9210 Analyzer utilizing [employer]. ID Date Data Source [id number] 06/05/2019 06:50:00 PM [facility] Added by Discern Rule GLB_ADD_GFR_BMP Name Value Range Interpretation Code Description Data Jackie rce(s) Supporting Document(s ) eGFR-AA 46 >=60 [facility] mL/min/1.[address] [place] [address] The CKD-EPI equation for non- Nini rican [...] Mild decrease* G3a 45-59 Mild to moderate [id number] 30-44 Moderate to s evere decreaseG4 15-29 Severe decreaseG5 14 or less Kidney fa ilure eGFR-MEG 38 mL/min/1.73m2 >=60 [facility] The CKD-EPI equation for non- Nini rican [...] Mild decrease* G3a 45-59 Mild to moderate [id number] 30-44 Moderate to s evere decreaseG4 15-29 Severe decreaseG5 14 or less Kidney fa ilure ID Date Data Source [id number] 06/05/2019 06:50:00 PM EST [facility] Name Value Range Interpretation Description Data Sup porting Code Source(s) Document(s ) Glucose Lvl 161 65-99 [place] mg/dL [facility] BUN 36.0 7.0-21.0 [place] mg/dL [facility] Creatinine 1.87 0.70-1.2 [place] mg/dL 0 [facility] BUN/Creat 19.3 7.0-29.0 [place] Ratio ratio [facility] Sodium Lvl 137 136-146 NO [place] mmol/L [facility] Potassium Lvl 3.5 3.5-5.1 [place] mmol/L [facility] Chloride 108 98-109 [place] mmol/L [facility] CO2 22 17-33 [place] mmol/L [facility] AGAP 7 5-15 NO [place] [facility] Calcium Lvl 8.2 8.3-10.2 [place] mg/dL [facility] ID Date Data Source [id number] 06/05/2019 03:11:00 PM EST [facility] Patient Name: KARSTEN GIBBS EMRN: [id number] UltrasoundACCESSION EXAM DATE/TIME PROCEDURE ORDERING PROVIDER [id number] 14:22 EST [facility] [place], Dequan [...] Supporting Document(s ) ID Date Data Source [id number] 06/05/2019 08:20:00 AM [facility] Added by Discern Rule GLB_ADD_GFR_BMP Name Value Range Interpretation Code Description Data Jackie rce(s) Supporting Document(s ) eGFR-AA 40 >=60 [facility] mL/min/1.[address] [place] [address] The CKD-EPI equation for non- [place]anner rican individuals is used to calculate the [...] Mild decrease* G3a 45-59 Mild to moderate [id number] 30-44 Moderate to s evere decreaseG4 15-29 Severe decreaseG5 14 or less Kidney fa ilure eGFR-MEG 33 mL/min/1.73m2 >=60 [facility] The CKD-EPI equation for non- [place]anner r[place] individuals is used to calculate the [...] Mild decrease* G3a 45-59 Mild to moderate vwycsovmV1c 30-44 Moderate to s evere decreaseG4 15-29 Severe decreaseG5 14 or less Kidney fa ilure ID Date Data Source [id number] 06/05/2019 08:20:00 AM EST [facility] Name Value Range Interpretation Description Data Sup porting Code Source(s) Document(s ) Glucose Lvl 148 65-99 [place] mg/dL [facility] BUN 41.0 7.0-21.0 [place] mg/dL [facility] Creatinine 2.12 0.70-1.2 [place] mg/dL 0 [facility] BUN/Creat 19.3 7.0-29.0 NO [place] Ratio ratio [facility] Sodium Lvl 137 136-146 NO [place] mmol/L [facility] Potassium Lvl 3.6 3.5-5.1 NO [place] mmol/L [facility] Chloride 109 98-109 [place] mmol/L [facility] CO2 22 17-33 [place] mmol/L [facility] AGAP 6 5-15 [place] [facility] Calcium Lvl 8.0 8.3-10.2 [place] mg/dL [facility] ID Date Data Source [id number] 06/05/2019 08:08:00 AM EST [facility] Name Value Range Interpretation Description Data Sup porting Code Source(s) Document(s ) Neut Auto 74.8 % 40.0-70.0 [place] [facility] Lymph Auto 14.2 % 22.0-44.0 [facility] Auto 10.5 % 4.0-11.0 NO [facility] Eos Auto 0.1 % 0.0-8.0 NO [facility] Baso Auto 0.4 % 0.0-3.0 NO [facility] Neut 8.1 1.8-7.7 [place] Absolute x10(3)/[facility] Lymph 1.5 1.0-4.8 NO [place] Absolute x10(3)/[facility] [place] 1.1 0.2-1.2 NO [place] Absolute x10(3)/[facility] Eos Absolute 0.0 0.0-0.9 [place] x10(3)/[facility] Baso 0.0 0.0-0.3 [place] Absolute x10(3)/[facility] ID Date Data Source [id number] 06/05/2019 08:08:00 AM EST [facility] Name Value Range Interpretation Description Data Sup porting Code Source(s) Document(s ) WBC 10.8 4.5-11.0 [place] x10(3)/[facility] RBC 3.40 4.50-5.90 [place] x10(6)/[facility] Hgb 8.5 gm/dL 13.5-17.5 [facility] Hct 26.3 % 41.0-53.0 [facility] MCV 77 fL 80-100 [facility] MCH 24.9 pg 26.0-34.0 [facility] MCHC 32.2 31.0-37.0 [place] gm/dL [facility] RDW 15.0 % 11.5-14.5 [facility] Platelet 262 150-350 [place] x10(3)/[facility] MPV 7.9 fL 7.4-10.4 [facility] ID Date Data Source [id number] 06/04/2019 10:04:00 PM [facility] Name Value Range Interpretation Code Description Data Jackie rce(s) Supporting Document(s ) D-Dimer 491 ng/ml 0-230 [facility] If the result is in the normal [...] may be present. ID Date Data Source [id number] 06/04/2019 10:03:00 PM [facility] Name Value Range Interpretation Description Data Sup porting Code Source(s) Document(s ) Lactic 1.0 0.9-2.0 NO [facility] Acid Lvl mmol/L [facility] ID Date Data Source [id number] 06/04/2019 09:57:00 PM [facility] Name Value Range Interpretation Code Description Data Jackie rce(s) Supporting Document(s ) INR 1.1 ratio 0.9-1.2 [facility] Indications INRProphylaxis of venous thromo-embolism: Non-hip surgery..... ..........................1.5 - 2.5 Hip surgery................................. ..2.0 - 3.0Deep Vein Thrombosis or Pulmonary Embolism........2.0 - 3.0Prevention of s ystemic embolism in valvular heart disease, tissue prosthetic heart valvesor acute SC.......................................2.0 - 3.5Prevention of embolism in mechanical heartvalves or recurrent systemic embolism.............3.0 - 4.5 PT 13.2 second(s) 9.5-12.5 [facility] ID Date Data Source [id number] 06/04/2019 09:28:00 PM [facility] Name Value Range Interpretation Code Description Data Jackie rce(s) Supporting Document(s ) BNP 202 pg/mL 1-99 [facility] ID Date Data Source [id number] 06/04/2019 09:24:00 PM [facility] Name Value Range Interpretation Description Data Sup porting Code Source(s) Document(s ) Troponin- 0.02 0.02-0.05 [facility] I ng/mL [facility] ID Date Data Source [id number] 06/04/2019 09:20:00 PM [facility] Name Value Range Interpretation Description Data Sup porting Code Source(s) Document(s ) Magnesium 2.5 mg/dL 1.6-2.5 [facility] ID Date Data Source [id number] 06/04/2019 09:20:00 PM [facility] Name Value Range Interpretation Code Description Data Jackie rce(s) Supporting Document(s ) Lipase Lvl 22 IU/L 10-59 [facility] ID Date Data Source [id number] 06/04/2019 09:20:00 PM [facility] Added by Discern Rule GLB_ADD_GFR_CMP Name Value Range Interpretation Code Description Data Jackie rce(s) Supporting Document(s ) eGFR-AA 42 >=60 [facility] mL/min/[address] The CKD-EPI equation for non- Nini [...] Mild decrease* G3a 45-59 Mild to moderate [id number] 30-44 Moderate to s evere decreaseG4 15-29 Severe decreaseG5 14 or less Kidney fa ilure eGFR-MEG 35 mL/min/1.73m2 >=60 LO [facility] The CKD-EPI equation for non- Nini [...] Mild decrease* G3a 45-59 Mild to moderate [id number] 30-44 Moderate to s evere decreaseG4 15-29 Severe decreaseG5 14 or less [facility] Date Data Source [id number] 06/04/2019 09:20:00 PM EST [facility] Name Value Range Interpretation Description Data Sup porting Code Source(s) Document(s ) Glucose Lvl 171 65-99 [place] mg/dL [facility] BUN 39.0 7.0-21.0 [place] mg/dL [facility] Creatinine 2.02 0.70-1.2 [place] mg/dL 0 [facility] BUN/Creat 19.3 7.0-29.0 [place] Ratio ratio [facility] Sodium Lvl 136 136-146 [place] mmol/L [facility] Potassium Lvl 4.0 3.5-5.1 [place] mmol/L [facility] Chloride 103 98-109 [place] mmol/L [facility] CO2 22 17-33 [place] mmol/L [facility] AGAP 11 5-15 NO [facility] Calcium Lvl 8.7 8.3-10.2 [place] mg/dL [facility] Total Protein 8.6 6.0-8.3 [place] gm/dL [facility] Albumin Lvl 3.6 3.7-5.3 [place] gm/dL [facility] Glob 5.0 2.0-4.5 [place] gm/dL [facility] A/G Ratio 0.7 1.0-2.2 LO [facility] ratio [facility] Bili Total 0.9 0.4-1.1 [place] mg/dL [facility] Alk Phos 101 IU/L 30-125 NO [facility] AST 18 IU/L 10-35 [facility] ALT 16 IU/L 8-40 [facility] ID Date Data Source [id number] 06/04/2019 09:20:00 PM EST [facility] Name Value Range Interpretation Description Data Sup porting Code Source(s) Document(s ) Amylase Lvl 40 IU/L 26-121 NO [facility] ID Date Data Source [id number] 06/04/2019 09:07:00 PM EST [facility] Name Value Range Interpretation Description Data Sup porting Code Source(s) Document(s ) Neut Auto 86.9 % 40.0-70.0 [facility] Lymph Auto 7.6 % 22.0-44.0 [facility] Auto 5.1 % 4.0-11.0 [facility] Eos Auto 0.0 % 0.0-8.0 NO [facility] Baso Auto 0.4 % 0.0-3.0 NO [facility] Neut 12.5 1.8-7.7 [place] Absolute x10(3)/[facility] Lymph 1.1 1.0-4.8 NO [place] Absolute x10(3)/[facility] 0.7 0.2-1.2 NO [place] Absolute x10(3)/[facility] Eos Absolute 0.0 0.0-0.9 [place] x10(3)/[facility] Baso 0.1 0.0-0.3 NO [place] Absolute x10(3)/[facility] ID Date Data Source [id number] 06/04/2019 09:07:00 PM EST [facility] Name Value Range Interpretation Description Data Sup porting Code Source(s) Document(s ) WBC 14.4 4.5-11.0 [place] x10(3)/[facility] RBC 4.18 4.50-5.90 [place] x10(6)/[facility] Hgb 10.3 13.5-17.5 [place] gm/dL [facility] Hct 32.6 % 41.0-53.0 [facility] MCV 78 fL 80-100 [facility] MCH 24.6 pg 26.0-34.0 [facility] MCHC 31.6 31.0-37.0 [place] gm/dL [facility] RDW 15.4 % 11.5-14.5 [facility] Platelet 303 150-350 [place] x10(3)/[facility] MPV 8.2 fL 7.4-10.4 [facility] ID Date Data Source [id number] 06/04/2019 09:01:00 PM [facility] Name Value Range Interpretation Description Data Sup porting Code Source(s) Document(s ) Influenza A Negative [facility] Test Methodology is Immunochromatographi c [...] culture is indicated. Influenza B Ag Negative [facility] Test Methodology is Immunochromatographi c test [...] is indicated. Influenza A/B Ag Source NA Critical [facility] hospital [id number]_AB_AG_[id number] ID Date Data Source [id number] 06/04/2019 08:14:00 PM [facility] Patient Name: KARSTEN GIBBS EMRN: [id number] General DiagnosticACCESSION EXAM DATE/TIME PROCEDURE ORDERING PROVIDER [id number] 06/04/2019 20:08 EST XR Chest Portable [place] [...] Supporting Document(s ) ID Date Data Source [id number] 06/04/2019 05:12:00 PM [facility] Laboratory Sample Carrier:LUCY RUIZ Name Value Range Interpretation Description Data Sup porting Code Source(s) Document(s ) Glucose 144 mg/dL [facility] [Mass/volume[facility] in Capillary blood by Glucometer ID Date Data Source [id number] 02/11/2019 07:45:00 AM [facility] Laboratory Sample Carrier:YULY ORTEGA Name Value Range Interpretation Description Data Sup porting Code Source(s) Document(s ) Glucose 205 mg/dL [facility] [Mass/volume] Hospital in Capillary blood by Glucometer ID Date Data Source [id number] 02/10/2019 11:26:00 AM [facility] Name Value Range Interpretation Description Data Sup porting Code Source(s) Document(s ) GLUCOSE RN Notified [facility] ID Date Data Source [id number] 02/10/2019 05:29:00 AM [facility] ADA RECOMMENDATIONS: NON-DIABETES: 4.0-6.0% CONTROLLED DIABETES: 6.0-8.0% UNCONTROLLED DIABETE S: UP TO 20%RECOMMENDED ADA RESULT FOR THERAPY: HEMOGLOBIN A1C RESULT LESS FRANK N 7%.NOTE: METHOD CHANGE EFFECTIVE 11/06/14. Name Value Range Interpretation Description Data Sup porting Code Source(s) Document(s ) Hemoglobin 7.0 % [facility] A1c/Hemoglobin. Hospital total in Blood ID Date Data Source [id number] 02/10/2019 05:29:00 AM [facility] Name Value Range Interpretation Description Data Sup porting Code Source(s) Document(s ) Calcium 8.3 mg/dL [facility] [[facility]/volume [facility] ] in Serum or Plasma ID Date Data Source [id number] 02/10/2019 05:29:00 AM [facility] UNITS ARE IN ml/min/1.73m2.IF PATIENT IS -TUVALUAN, MULTIPLY REPORTED RESULT BY 1.21. Name Value Range Interpretation Description Data Sup porting Code Source(s) Document(s ) Glomerular > 60 [facility] filtration mL/min Hospital rate/1.73 sq M.predicted [Volume Rate/Area] in Serum or Plasma by Creatinine-bas ed formula (MDRD) ID Date Data Source [id number] 02/10/2019 05:29:00 AM [facility] Name Value Range Interpretation Code Description Data Jackie rce(s) Supporting Document(s ) Urea 15.0 [facility] nitrogen/Cre Hospital atinine [Mass Ratio] in Serum or Plasma ID Date Data Source [id number] 02/10/2019 05:29:00 AM [facility] Name Value Range Interpretation Description Data Sup porting Code Source(s) Document(s ) Creatinine 1.2 mg/dL [facility] [Mass/volume] Hospital in Serum or Plasma ID Date Data Source [id number] 02/10/2019 05:29:00 AM [facility] THIS RESULT HAS BEEN VERIFIED. Name Value Range Interpretation Description Data Sup porting Code Source(s) Document(s ) Urea 18 mg/dL [facility] nitrogen Hospital [Mass/volume ] in Serum or Plasma ID Date Data Source [id number] 02/10/2019 05:29:00 AM [facility] Name Value Range Interpretation Code Description Data Jackie rce(s) Supporting Document(s ) Anion gap in 9 [facility] Serum or [facility] Plasma ID Date Data Source [id number] 02/10/2019 05:29:00 AM [facility] Name Value Range Interpretation Description Data Sup porting Code Source(s) Document(s ) Carbon 24 mmol/L [facility] dioxide, Hospital total [Moles/volu me] in Serum or Plasma ID Date Data Source [id number] 02/10/2019 05:29:00 AM EST [facility] Name Value Range Interpretation Description Data Sup porting Code Source(s) Document(s ) Chloride 105 [facility] [Moles/volum mmol/L Hospital e] in Serum or Plasma ID Date Data Source [id number] 02/10/2019 05:29:00 AM EST [facility] Name Value Range Interpretation Description Data Sup porting Code Source(s) Document(s ) Potassium 4.4 [facility] [Moles/volume mmol/L Hospital ] in Serum or Plasma ID Date Data Source [id number] 02/10/2019 05:29:00 AM EST [facility] Name Value Range Interpretation Description Data Sup porting Code Source(s) Document(s ) Sodium 134 mmol/L [facility] [Moles/volu Hospital me] in Serum or Plasma ID Date Data Source [id number] 02/10/2019 05:29:00 AM EST [facility] Name Value Range Interpretation Description Data Sup porting Code Source(s) Document(s ) Glucose 142 mg/dL [facility] [Mass/volume Hospital ] in Serum or Plasma ID Date Data Source [id number] 02/10/2019 05:29:00 AM EST [facility] Name Value Range Interpretation Code Description Data Supporting Source(s) Document(s ) NUCLEATED RBCS 0.0 % [facility] (AUTO Hospital DIFF%)DIS ID Date Data Source [id number] 02/10/2019 05:29:00 AM EST [facility] Name Value Range Interpretation Description Data Sup porting Code Source(s) Document(s ) Differential AUTOMATED [facility] cell count Hospital method - Blood ID Date Data Source [id number] 02/10/2019 05:29:00 AM [facility] Name Value Range Interpretation Description Data Sup porting Code Source(s) Document(s ) Immature 0.02 [facility] granulocytes 10*3/uL Hospital [#/volume] in Blood by Automated count ID Date Data Source [id number] 02/10/2019 05:29:00 AM [facility] Name Value Range Interpretation Description Data Sup porting Code Source(s) Document(s ) Basophils 0.03 [facility] [#/volume] in 10*3/uL Hospital Blood by Automated count ID Date Data Source [id number] 02/10/2019 05:29:00 AM [facility] Value Range Interpretation Description Data Sup porting Code Source(s) Document(s ) Eosinophils 0.35 [facility] [#/volume] in 10*3/uL Hospital Blood by Automated count ID Date Data Source [id number] 02/10/2019 05:29:00 AM [facility] Name Value Range Interpretation Description Data Sup porting Code Source(s) Document(s ) Monocytes 1.10 [facility] [#/volume] in 10*3/uL Hospital Blood by Automated count ID Date Data Source [id number] 02/10/2019 05:29:00 AM [facility] Name Value Range Interpretation Description Data Sup porting Code Source(s) Document(s ) Lymphocytes 3.02 [facility] [#/volume] in 10*3/uL Hospital Blood by Automated count ID Date Data Source [id number] 02/10/2019 05:29:00 AM [facility] Name Value Range Interpretation Description Data Sup porting Code Source(s) Document(s ) Neutrophils 3.80 [facility] [#/volume] in 10*3/uL Hospital Blood by Automated count ID Date Data Source [id number] 02/10/2019 05:29:00 AM EST [facility] Name Value Range Interpretation Description Data Sup porting Code Source(s) Document(s ) Nucleated 0.0 % [facility] erythrocytes/10 Hospital 0 leukocytes [Ratio] in Blood by Automated count ID Date Data Source [id number] 02/10/2019 05:29:00 AM EST [facility] Name Value Range Interpretation Description Data Sup porting Code Source(s) Document(s ) Immature 0.2 % [facility] granulocytes/10 Hospital 0 leukocytes in Blood by Automated count ID Date Data Source [id number] 02/10/2019 05:29:00 AM [facility] Value Range Interpretation Description Data Sup porting Code Source(s) Document(s ) Basophils/100 0.4 % [facility] leukocytes in Hospital Blood by Automated count ID Date Data Source [id number] 02/10/2019 05:29:00 AM EST [facility] Name Value Range Interpretation Description Data Sup porting Code Source(s) Document(s ) Eosinophils/100 4.2 % [facility] leukocytes in Hospital Blood by Automated count ID Date Data Source [id number] 02/10/2019 05:29:00 AM EST [facility] Value Range Interpretation Description Data Sup porting Code Source(s) Document(s ) Monocytes/100 13.2 % [facility] leukocytes in Hospital Blood by Automated count ID Date Data Source [id number] 02/10/2019 05:29:00 AM [facility] Name Value Range Interpretation Description Data Sup porting Code Source(s) Document(s ) Lymphocytes/10 36.3 % [facility] 0 leukocytes Hospital in Blood by Automated count ID Date Data Source [id number] 02/10/2019 05:29:00 AM EST [facility] Name Value Range Interpretation Description Data Sup porting Code Source(s) Document(s ) Neutrophils/10 45.7 % [facility] 0 leukocytes Hospital in Blood by Automated count ID Date Data Source [id number] 02/10/2019 05:29:00 AM [facility] Name Value Range Interpretation Description Data Sup porting Code Source(s) Document(s ) Platelet mean 11.7 fL [facility] volume Hospital [Entitic volume] in Blood by Automated count ID Date Data Source [id number] 02/10/2019 05:29:00 AM [facility] Name Value Range Interpretation Description Data Sup porting Code Source(s) Document(s ) Platelets 196 [facility] [#/volume] in 10*3/uL Hospital Blood by Automated count ID Date Data Source [id number] 02/10/2019 05:29:00 AM [facility] Value Range Interpretation Description Data Sup porting Code Source(s) Document(s ) Erythrocyte 17.0 % [facility] Hospital width [Ratio] by Automated count ID Date Data Source [id number] 02/10/2019 05:29:00 AM [facility] Value Range Interpretation Description Data Sup porting Code Source(s) Document(s ) Erythrocyte mean 32.1 [facility] corpuscular g/dL Hospital hemoglobin concentration [Mass/volume] by Automated count ID Date Data Source [id number] 02/10/2019 05:29:00 AM [facility] Name Value Range Interpretation Description Data Sup porting Code Source(s) Document(s ) Erythrocyte 25.0 pg [facility] mean Hospital corpuscular hemoglobin [Entitic mass] by Automated count ID Date Data Source [id number] 02/10/2019 05:29:00 AM [facility] Value Range Interpretation Description Data Sup porting Code Source(s) Document(s ) Erythrocyte 77.9 fL [facility] mean Hospital corpuscular volume [Entitic volume] by Automated count ID Date Data Source [id number] 02/10/2019 05:29:00 AM [facility] Value Range Interpretation Description Data Sup porting Code Source(s) Document(s ) Hematocrit 26.5 % [facility] [Volume Hospital Fraction] of Blood by Automated count ID Date Data Source [id number] 02/10/2019 05:29:00 AM [facility] Value Range Interpretation Description Data Sup porting Code Source(s) Document(s ) Hemoglobin 8.5 g/dL [facility] [Mass/volume] Hospital in Blood ID Date Data Source [id number] 02/10/2019 05:29:00 AM [facility] Value Range Interpretation Description Data Sup porting Code Source(s) Document(s ) Erythrocytes 3.40 [facility] [#/volume] in 10*6/uL Hospital Blood by Automated count ID Date Data Source [id number] 02/10/2019 05:29:00 AM [facility] Value Range Interpretation Description Data Sup porting Code Source(s) Document(s ) Leukocytes 8.3 [facility] [#/volume] in 10*3/uL Hospital Blood by Automated count ID Date Data Source [id number] 02/06/2019 08:21:00 AM EDT [facility] Value Range Interpretation Description Data Sup porting Code Source(s) Document(s ) Aspartate 11 U/L [facility] aminotransferase [place] [Enzymatic Hospital activity/volume] in Serum or Plasma ID Date Data Source [id number] 02/06/2019 08:21:00 AM EDT [facility] Value Range Interpretation Description Data Sup porting Code Source(s) Document(s ) Alanine 12 U/L [facility] aminotransferase [place] [Enzymatic Hospital activity/volume] in Serum or Plasma ID Date Data Source [id number] 02/06/2019 08:21:00 AM EDT [facility] Name Value Range Interpretation Description Data Sup porting Code Source(s) Document(s ) Alkaline 104 U/L [facility] phosphatase Hospital [Enzymatic activity/volume ] in Serum or Plasma ID Date Data Source [id number] 02/06/2019 08:21:00 AM EDT [facility] Name Value Range Interpretation Description Data Sup porting Code Source(s) Document(s ) Bilirubin.d 0.2 mg/dL [facility] [Mass/volum e] in Serum or Plasma ID Date Data Source [id number] 02/06/2019 [facility] Interpretation Description Data Sup porting Code Source(s) Document(s ) Bilirubin.t 0.5 mg/dL [facility] [Mass/volum e] in Serum or Plasma ID Date Data Source [id number] 02/06/2019 08:21:[address] [facility] Value Range Interpretation Code Description Data Jackie rce(s) Supporting Document(s ) Albumin/Glob 1.1 [facility] ulin [Mass Hospital Ratio] in Serum or Plasma ID Date Data Source [id number] 02/06/2019 08:21:00 AM EDT [facility] Name Value Range Interpretation Description Data Sup porting Code Source(s) Document(s ) Albumin 3.0 g/dL [facility] [Mass/volume Hospital ] in Serum or Plasma ID Date Data Source [id number] 02/06/2019 [facility] Value Range Interpretation Description Data Sup porting Code Source(s) Document(s ) Protein 5.7 g/dL [facility] [Mass/volume Hospital ] in Serum or Plasma ID Date Data Source [id number] 02/03/2019 07:31:00 AM EDT [facility] Name Value Range Interpretation Description Data Sup porting Code Source(s) Document(s ) URINE OCCASIONAL [facility] EPITHELIAL [facility] CELLS ID Date Data Source [id number] 02/03/2019 07:31:00 AM EDT [facility] Name Value Range Interpretation Description Data Sup porting Code Source(s) Document(s ) Erythrocytes 10-20 [facility] [#/area] in /[HPF] Hospital Urine sediment by Automated count ID Date Data Source [id number] 02/03/2019 07:31:00 AM EDT [facility] Name Value Range Interpretation Description Data Sup porting Code Source(s) Document(s ) Leukocytes 3-5 [facility] [#/area] in /[HPF] Hospital Urine sediment by Automated count ID Date Data Source [id number] 02/03/2019 07:31:00 AM EDT [facility] Name Value Range Interpretation Description Data Sup porting Code Source(s) Document(s ) Leukocyte NEGATIVE [facility] [Presence] in Urine by Test strip ID Date Data Source [id number] 02/03/2019 07:31:00 AM EDT [facility] Name Value Range Interpretation Description Data Sup porting Code Source(s) Document(s ) URINE NEGATIVE [facility] NITRITES Hospital ID Date Data Source [id number] 02/03/2019 07:31:00 AM EDT [facility] Name Value Range Interpretation Description Data Sup porting Code Source(s) Document(s ) Erythrocytes TRACE [facility] [#/volume] in Hospital Urine by Test strip ID Date Data Source [id number] 02/03/2019 07:31:00 AM EDT [facility] Name Value Range Interpretation Code Description Data Jackie rce(s) Supporting Document(s ) Bilirubin. NEGATIVE [facility] total Hospital [Presence] in Urine by Test strip ID Date Data Source [id number] 02/03/2019 07:31:00 AM EDT [facility] Name Value Range Interpretation Description Data Sup porting Code Source(s) Document(s ) Urobilinogen 0.2 [facility] [Units/volume] mg/dL Hospital in Urine by Test strip ID Date Data Source [id number] 02/03/2019 07:31:00 AM EDT [facility] Value Range Interpretation Code Description Data Jackie rce(s) Supporting Document(s ) Ketones TRACE [facility] [Mass/volume Hospital ] in Urine by Test strip ID Date Data Source [id number] 02/03/2019 07:31:00 AM EDT [facility] Value Range Interpretation Code Description Data Jackie rce(s) Supporting Document(s ) Glucose 1+ [facility] [Mass/volume Hospital ] in Urine by Test strip ID Date Data Source [id number] 02/03/2019 07:31:00 AM EDT [facility] Value Range Interpretation Code Description Data Jackie rce(s) Supporting Document(s ) Protein 4+ [facility] [Presence] Hospital in Urine by Test strip ID Date Data Source [id number] 02/03/2019 07:31:00 AM EDT [facility] Value Range Interpretation Code Description Data Jackie rce(s) Supporting Document(s ) pH of Urine 6.5 [facility] by Test Hospital strip ID Date Data Source [id number] 02/03/2019 07[facility]31[facility] Interpretation Code Description Data Supporting Source(s) Document(s ) Specific 1.022 [facility] gravity of Hospital Urine by Test strip ID Date Data Source [id number] 02/03/2019 07:31:00 AM [facility] Name Value Range Interpretation Description Data Sup porting Code Source(s) Document(s ) Clarity in Urine CLEAR [facility] by Refractometry Hospital automated ID Date Data Source [id number] 02/03/2019 07:31:00 AM [facility] Name Value Range Interpretation Code Description Data Jackie rce(s) Supporting Document(s ) Color of YELLOW [facility] Urine Hospital ID Date Data Source [id number] 01/29/2019 07:20:00 PM [facility] TEST PERFORMED BY [employer] CHEMILUMINESCENCE METHOD. Name Value Range Interpretation Description Data Sup porting Code Source(s) Document(s ) Troponin < 0.01 [facility] I.cardiac ng/mL Hospital [Mass/volume ] in Serum or Plasma ID Date Data Source [id number] 01/29/2019 07:20:00 PM [facility] Name Value Range Interpretation Code Description Data Jackie rce(s) Supporting Document(s ) Lipase 25 U/L [facility] [Enzymatic Hospital activity/vo lume] in Serum or Plasma ID Date Data Source [id number] 01/20/2019 08:52:00 AM [facility] Laboratory Sample Carrier:MAKSIM JOHN Name Value Range Interpretation Description Data Sup porting Code Source(s) Document(s ) Glucose 104 mg/dL [facility] [Mass/volume] Hospital in Capillary blood by Glucometer ID Date Data Source [id number] 01/15/2019 08:42:00 AM [facility] Name Value Range Interpretation Description Data Sup porting Code Source(s) Document(s ) Platelet mean 9.5 fL [facility] volume Hospital [Entitic volume] in Blood by Automated count ID Date Data Source [id number] 01/15/2019 08:42:00 AM EDT [facility] Value Range Interpretation Description Data Sup porting Code Source(s) Document(s ) Platelets 386 [facility] [#/volume] in 10*3/uL Hospital Blood by Automated count ID Date Data Source [id number] 01/15/2019 08:42:00 AM EDT [facility] Value Range Interpretation Description Data Sup porting Code Source(s) Document(s ) Erythrocyte 18.7 % [facility] distribution Hospital width [Ratio] by Automated count ID Date Data Source [id number] 01/15/2019 08:42:00 AM EDT [facility] Value Range Interpretation Description Data Sup porting Code Source(s) Document(s ) Erythrocyte mean 32.7 [facility] corpuscular g/dL Hospital hemoglobin concentration [Mass/volume] by Automated count ID Date Data Source [id number] 01/15/2019 08:42:00 AM EDT [facility] Value Range Interpretation Description Data Sup porting Code Source(s) Document(s ) Erythrocyte 24.8 pg [facility] corpuscular hemoglobin [Entitic mass] by Automated count ID Date Data Source [id number] 01/15/2019 08:42:[facility] Range Interpretation Description Data Sup porting Code Source(s) Document(s ) Erythrocyte 76.1 fL [facility] corpuscular volume [Entitic volume] by Automated count ID Date Data Source [id number] 01/15/2019 08:42:00 [facility] Value Range Interpretation Description Data Sup porting Code Source(s) Document(s ) Hematocrit 24.5 % [facility] [Volume Hospital Fraction] of Blood by Automated count ID Date Data Source [id number] 01/15/2019 08:42:00 AM EDT [facility] Name Value Range Interpretation Description Data Sup porting Code Source(s) Document(s ) Hemoglobin 8.0 g/dL [facility] [Mass/volume] Hospital in Blood ID Date Data Source [id number] 01/15/2019 08:42:00 AM EDT [facility] Name Value Range Interpretation Description Data Sup porting Code Source(s) Document(s ) Erythrocytes 3.22 [facility] [#/volume] in 10*6/uL Hospital Blood by Automated count ID Date Data Source [id number] 01/15/2019 08:42:00 AM EDT [facility] Name Value Range Interpretation Description Data Sup porting Code Source(s) Document(s ) Leukocytes 6.6 [facility] [#/volume] in 10*3/uL Hospital Blood by Automated count ID Date Data Source [id number] 01/15/2019 07:42:00 AM EDT [facility] Name Value Range Interpretation Description Data Sup porting Code Source(s) Document(s ) Calcium 8.5 mg/dL [facility] [Mass/volume Hospital ] in Serum or Plasma ID Date Data Source [id number] 01/15/2019 07:42:00 AM EDT [facility] Name Value Range Interpretation Code Description Data Jackie rce(s) Supporting Document(s ) Urea 13.6 [facility] nitrogen/Cre Hospital atinine [Mass Ratio] in Serum or Plasma ID Date Data Source [id number] 01/15/2019 07:42:00 AM EDT [facility] Name Value Range Interpretation Description Data Sup porting Code Source(s) Document(s ) Creatinine 1.1 mg/dL [facility] [Mass/volume] Hospital in Serum or Plasma ID Date Data Source [id number] 01/15/2019 07:42:00 AM EDT [facility] Name Value Range Interpretation Description Data Sup porting Code Source(s) Document(s ) Urea 15 mg/dL [facility] nitrogen Hospital [Mass/volume ] in Serum or Plasma ID Date Data Source [id number] 01/15/2019 07:42:00 AM EDT [facility] Name Value Range Interpretation Code Description Data Jackie rce(s) Supporting Document(s ) Anion gap in 10 [facility] Serum or [facility] Plasma ID Date Data Source [id number] 01/15/2019 07:42:00 AM EDT [facility] Name Value Range Interpretation Description Data Sup porting Code Source(s) Document(s ) Carbon 28 mmol/L [facility] dioxide, Hospital total [Moles/volu me] in Serum or Plasma ID Date Data Source [id number] 01/15/2019 07:42:00 AM EDT [facility] Name Value Range Interpretation Description Data Sup porting Code Source(s) Document(s ) Chloride 102 [facility] [Moles/volum mmol/L Hospital e] in Serum or Plasma ID Date Data Source [id number] 01/15/2019 07:42:00 AM EDT [facility] Name Value Range Interpretation Description Data Sup porting Code Source(s) Document(s ) Potassium 3.9 [facility] [Moles/volume mmol/L Hospital ] in Serum or Plasma ID Date Data Source [id number] 01/15/2019 07:42:00 AM EDT [facility] Name Value Range Interpretation Description Data Sup porting Code Source(s) Document(s ) Sodium 136 mmol/L [facility] [Moles/volu Hospital me] in Serum or Plasma ID Date Data Source [id number] 01/15/2019 07:42:00 AM [facility] Name Value Range Interpretation Description Data Sup porting Code Source(s) Document(s ) Glucose 124 mg/dL [facility] [Mass/volume Hospital ] in Serum or Plasma ID Date Data Source [id number] 01/15/2019 02:08:00 AM [facility] NOTE: NEW REFERENCE RANGE, EFFECTIVE . Name Value Range Interpretation Description Data Sup porting Code Source(s) Document(s ) Vancomycin 12.8 [facility] [Mass/volume] ug/mL Hospital in Serum or Plasma --trough ID Date Data Source [id number] 01/15/2019 02:08:00 AM [facility] NOTE: NEW REFERENCE RANGE, EFFECTIVE . Name Value Range Interpretation Description Data Sup porting Code Source(s) Document(s ) Vancomycin 12.8 [facility] [Mass/volume] ug/mL Hospital in Serum or Plasma --trough ID Date Data Source [id number] 01/11/2019 10:40:00 AM [facility] Name Value Range Interpretation Description Data Sup porting Code Source(s) Document(s ) MEAN 80.2 fL [facility] VOLUME ID Date Data Source [id number] 01/11/2019 10:40:00 AM [facility] Name Value Range Interpretation Description Data Sup porting Code Source(s) Document(s ) MEAN 80.2 fL [facility] VOLUME ID Date Data Source [id number] 01/10/2019 07:19:00 AM [facility] Name Value Range Interpretation Description Data Sup porting Code Source(s) Document(s ) Aspartate 13 U/L [facility] aminotransferase [place] [Enzymatic Hospital activity/volume] in Serum or Plasma ID Date Data Source [id number] 01/10/2019 07:19:00 AM EDT [facility] Name Value Range Interpretation Description Data Sup porting Code Source(s) Document(s ) Alanine 16 U/L [place] aminotransferase [place] [Enzymatic Hospital activity/volume] in Serum or Plasma ID Date Data Source [id number] 01/10/2019 [facility] Value Range Interpretation Description Data Sup porting Code Source(s) Document(s ) Alkaline 142 U/L [facility] phosphatase Hospital [Enzymatic activity/volume ] in Serum or Plasma ID Date Data Source [id number] 01/10/2019 07:19:00 AM [facility] Name Value Range Interpretation Description Data Sup porting Code Source(s) Document(s ) Bilirubin.t 0.3 mg/dL [facility] [Mass/volum e] in Serum or Plasma ID Date Data Source [id number] 01/10/2019 07:19:00 AM [facility] Name Value Range Interpretation Code Description Data Jackie rce(s) Supporting Document(s ) Albumin/Glob 0.9 [facility] [Mass Hospital Ratio] in Serum or Plasma ID Date Data Source [id number] 01/10/2019 07:19:00 AM [facility] Name Value Range Interpretation Description Data Sup porting Code Source(s) Document(s ) Albumin 3.3 g/dL [facility] [Mass/volume Hospital ] in Serum or Plasma ID Date Data Source [id number] 01/10/2019 07:19:00 AM [facility] Name Value Range Interpretation Description Data Sup porting Code Source(s) Document(s ) Protein 6.9 g/dL [facility] [Mass/volume Hospital ] in Serum or Plasma ID Date Data Source [id number] 01/10/2019 07[facility] Value Range Interpretation Code Description Data Supporting Source(s) Document(s ) NUCLEATED RBCS 0.0 % [facility] (AUTO Hospital DIFF%)DIS ID Date Data Source [id number] 01/10/2019 07:19:00 AM EDT [facility] Name Value Range Interpretation Description Data Sup porting Code Source(s) Document(s ) Differential AUTOMATED [facility] cell count Hospital method - Blood ID Date Data Source [id number] 01/10/2019 [facility] Value Range Interpretation Description Data Sup porting Code Source(s) Document(s ) Immature 0.02 [facility] granulocytes 10*3/uL Hospital [#/volume] in Blood by Automated count ID Date Data Source [id number] 01/10/2019 07:19:00 AM EDT [facility] Name Value Range Interpretation Description Data Sup porting Code Source(s) Document(s ) Basophils 0.03 [facility] [#/volume] in 10*3/uL Hospital Blood by Automated count ID Date Data Source [id number] 01/10/2019 [facility] Value Range Interpretation Description Data Sup porting Code Source(s) Document(s ) Eosinophils 0.20 [facility] [#/volume] in 10*3/uL Hospital Blood by Automated count ID Date Data Source [id number] 01/10/2019 07:19:00 AM EDT [facility] Name Value Range Interpretation Description Data Sup porting Code Source(s) Document(s ) Monocytes 1.19 [facility] [#/volume] in 10*3/uL Hospital Blood by Automated count ID Date Data Source [id number] 01/10/2019 07:19:00 AM EDT [facility] Name Value Range Interpretation Description Data Sup porting Code Source(s) Document(s ) Lymphocytes 2.21 [facility] [#/volume] in 10*3/uL Hospital Blood by Automated count ID Date Data Source [id number] 01/10/2019 07:19:00 AM EDT [facility] Value Range Interpretation Description Data Sup porting Code Source(s) Document(s ) Neutrophils 5.70 [facility] [#/volume] in 10*3/uL Hospital Blood by Automated count ID Date Data Source [id number] 01/10/2019 07:19:00 AM EDT [facility] Value Range Interpretation Description Data Sup porting Code Source(s) Document(s ) Nucleated 0.0 % [facility] erythrocytes/10 Hospital 0 leukocytes [Ratio] in Blood by Automated count ID Date Data Source [id number] 01/10/2019 07:19:00 AM EDT [facility] Value Range Interpretation Description Data Sup porting Code Source(s) Document(s ) Immature 0.2 % [facility] granulocytes/10 Hospital 0 leukocytes in Blood by Automated count ID Date Data Source [id number] 01/10/2019 07:19:00 AM EDT [facility] Value Range Interpretation Description Data Sup porting Code Source(s) Document(s ) Basophils/100 0.3 % [facility] leukocytes in Hospital Blood by Automated count ID Date Data Source [id number] 01/10/2019 07:19:00 AM EDT [facility] Value Range Interpretation Description Data Sup porting Code Source(s) Document(s ) Eosinophils/100 2.1 % [facility] leukocytes in Hospital Blood by Automated count ID Date Data Source [id number] 01/10/2019 07:19:00 AM EDT [facility] Value Range Interpretation Description Data Sup porting Code Source(s) Document(s ) Monocytes/100 12.7 % [facility] leukocytes in Hospital Blood by Automated count ID Date Data Source [id number] 01/10/2019 07:19:00 AM EDT [facility] Name Value Range Interpretation Description Data Sup porting Code Source(s) Document(s ) Lymphocytes/10 23.6 % [facility] 0 leukocytes Hospital in Blood by Automated count ID Date Data Source [id number] 01/10/2019 07:19:00 AM EDT [facility] Name Value Range Interpretation Description Data Sup porting Code Source(s) Document(s ) Neutrophils/10 61.1 % [facility] 0 leukocytes Hospital in Blood by Automated count ID Date Data Source [id number] 01/08/2019 12:12:00 PM EDT [facility] Name Value Range Interpretation Description Data Sup porting Code Source(s) Document(s ) GLUCOSE RN Notified [facility] COMMENT Hospital ID Date Data Source [id number] 01/08/2019 11:19:00 AM EDT [facility] Name Value Range Interpretation Description Data Sup porting Code Source(s) Document(s ) Bacteria No growth [facility] identified in Hospital Blood by Culture ID Date Data Source [id number] 01/08/2019 11:19:00 AM EDT [facility] Name Value Range Interpretation Description Data Sup porting Code Source(s) Document(s ) Bacteria No growth [facility] identified in Hospital Blood by Culture ID Date Data Source [id number] 12/31/2018 07:57:00 PM EDT [facility] Name Value Range Interpretation Description Data Sup porting Code Source(s) Document(s ) GLUCOSE To Be [facility] COMMENT2 Repeated Hospital ID Date Data Source [id number] 12/31/2018 07:57:00 PM EDT [facility] Name Value Range Interpretation Description Data Sup porting Code Source(s) Document(s ) GLUCOSE To Be [facility] COMMENT2 Repeated Hospital ID Date Data Source [id number] 12/30/2018 05:59:[address] [facility] Value Range Interpretation Description Data Sup porting Code Source(s) Document(s ) Gamma glutamyl 80 U/L [facility] transferase Hospital [Enzymatic activity/volume ] in Serum or Plasma ID Date Data Source [id number] 12/30/2018 05:59:00 AM [facility] Name Value Range Interpretation Description Data Sup porting Code Source(s) Document(s ) Gamma glutamyl 80 U/L [facility] [Enzymatic activity/volume ] in Serum or Plasma ID Date Data Source [id number] 12/29/2018 02:45:00 AM [facility] Name Value Range Interpretation Description Data Sup porting Code Source(s) Document(s ) Lactate 1.1 [facility] [Moles/volum mmol/L Hospital e] in Serum or Plasma ID Date Data Source [id number] 12/29/2018 02:45:00 AM [facility] Name Value Range Interpretation Description Data Sup porting Code Source(s) Document(s ) Lactate 1.1 [facility] [Moles/volum mmol/L Hospital e] in Serum or Plasma ID Date Data Source [id number] 12/28/2018 10:45:00 PM [facility] Name Value Range Interpretation Description Data Sup porting Code Source(s) Document(s ) Natriuretic 63.2 [facility] peptide B pg/mL Hospital [Mass/volume] in Serum or Plasma ID Date Data Source [id number] 12/28/2018 10:45:00 PM [facility] THERAPEUTIC RANGE FOR STANDARD ORALANTIC OAGULANT THERAPY: 2.0-3.0THERAPEUTIC RANGE FOR HIGH DOSE ORALANTICOAGULANT THERAPY (MECHANICAL HEARTVALVE REPLACEMENT): 2.5-3.5 Name Value Range Interpretation Description Data Sup porting Code Source(s) Document(s ) INR in Platelet 1.2 [facility] poor plasma by Hospital Coagulation assay ID Date Data Source [id number] 12/28/2018 10:45:00 PM EDT [facility] Name Value Range Interpretation Description Data Sup porting Code Source(s) Document(s ) PT panel - 13.0 s [facility] Platelet poor [facility] plasma by Coagulation assay ID Date Data Source [id number] 12/28/2018 10:45:00 PM [facility] Name Value Range Interpretation Description Data Sup porting Code Source(s) Document(s ) Natriuretic 63.2 [facility] peptide B pg/mL Hospital [Mass/volume] in Serum or Plasma ID Date Data Source [id number] 12/28/2018 10:45:00 PM [facility] THERAPEUTIC RANGE FOR STANDARD ORALANTIC OAGULANT THERAPY: 2.0-3.0THERAPEUTIC RANGE FOR HIGH DOSE ORALANTICOAGULANT THERAPY (MECHANICAL HEARTVALVE REPLACEMENT): 2.5-3.5 Name Value Range Interpretation Description Data Sup porting Code Source(s) Document(s ) INR in Platelet 1.2 [facility] poor plasma by Hospital Coagulation assay ID Date Data Source [id number] 12/28/2018 10:45:00 PM [facility] Name Value Range Interpretation Description Data Sup porting Code Source(s) Document(s ) PT panel - 13.0 s [facility] Platelet poor [facility] plasma by Coagulation assay ID Date Data Source [id number] 12/28/2018 12:01:00 AM [facility] TEST PERFORMED BY [facility] ULTRA SENSITIVE C[facility] CHEMILUMINESCENCE METHOD. Name Value Range Interpretation Description Data Sup porting Code Source(s) Document(s ) Troponin 0.01 [facility] I.cardiac ng/mL Hospital [Mass/volume ] in Serum or Plasma ID Date Data Source [id number] 12/27/2018 08:35:00 AM [facility] Laboratory Sample Carrier:DAMARI INGRAM Name Value Range Interpretation Description Data Sup porting Code Source(s) Document(s ) Glucose 238 mg/dL [facility] [Mass/volume] Hospital in Capillary blood by Glucometer ID Date Data Source [id number] 12/26/2018 08:30:00 AM [facility] THERE ARE NO REFERENCE RANGES FOR RANDOM VANCOMYCIN LEVELS. Name Value Range Interpretation Description Data Sup porting Code Source(s) Document(s ) Vancomycin 11.9 [facility] [Mass/volume] ug/mL Hospital in Serum or Plasma --trough ID Date Data Source [id number] 12/26/2018 08:30:00 AM [facility] Name Value Range Interpretation Description Data Sup porting Code Source(s) Document(s ) Calcium 8.7 mg/dL [facility] [Mass/volume Hospital ] in Serum or Plasma ID Date Data Source [id number] 12/26/2018 08:30:00 AM [facility] Name Value Range Interpretation Code Description Data Jackie rce(s) Supporting Document(s ) Urea 16.0 [facility] nitrogen/Cre Hospital atinine [Mass Ratio] in Serum or Plasma ID Date Data Source [id number] 12/26/2018 08:30:00 AM [facility] Name Value Range Interpretation Description Data Sup porting Code Source(s) Document(s ) Creatinine 1.0 mg/dL [facility] [Mass/volume] Hospital in Serum or Plasma ID Date Data Source [id number] 12/26/2018 08:30:00 AM EDT [facility] Name Value Range Interpretation Description Data Sup porting Code Source(s) Document(s ) Urea 16 mg/dL [facility] nitrogen Hospital [Mass/volume ] in Serum or Plasma ID Date Data Source [id number] 12/26/2018 08:30:00 AM EDT [facility] Value Range Interpretation Code Description Data Jackie rce(s) Supporting Document(s ) Anion gap in 10 [facility] Serum or [facility] Plasma ID Date Data Source [id number] 12/26/2018 08:30:00 AM EDT [facility] Value Range Interpretation Description Data Sup porting Code Source(s) Document(s ) Carbon 27 mmol/L [facility] dioxide, Hospital total [Moles/volu me] in Serum or Plasma ID Date Data Source [id number] 12/26/2018 08:30:00 AM EDT [facility] Name Value Range Interpretation Description Data Sup porting Code Source(s) Document(s ) Chloride 102 [facility] [Moles/volum mmol/L Hospital e] in Serum or Plasma ID Date Data Source [id number] 12/26/2018 08:30:00 AM EDT [facility] Name Value Range Interpretation Description Data Sup porting Code Source(s) Document(s ) Potassium 4.1 [facility] [Moles/volume mmol/L Hospital ] in Serum or Plasma ID Date Data Source [id number] 12/26/2018 08:30:00 AM EDT [facility] Name Value Range Interpretation Description Data Sup porting Code Source(s) Document(s ) Sodium 135 mmol/L [facility] [Moles/volu Hospital me] in Serum or Plasma ID Date Data Source [id number] 12/26/2018 08:30:00 AM EDT [facility] Name Value Range Interpretation Description Data Sup porting Code Source(s) Document(s ) Glucose 156 mg/dL [facility] [Mass/volume Hospital ] in Serum or Plasma ID Date Data Source [id number] 12/26/2018 08:30:[address] [facility] Value Range Interpretation Description Data Sup porting Code Source(s) Document(s ) Platelet mean 9.4 fL [facility] Hospital [Entitic volume] in Blood by Automated count ID Date Data Source [id number] 12/26/2018 08:30:[address] [facility] Value Range Interpretation Description Data Sup porting Code Source(s) Document(s ) Platelets 461 [facility] [#/volume] in 10*3/uL Hospital Blood by Automated count ID Date Data Source [id number] 12/26/2018 08:30:[address] [facility] Value Range Interpretation Description Data Sup porting Code Source(s) Document(s ) Erythrocyte 19.8 % [facility] width [Ratio] by Automated count ID Date Data Source [id number] 12/26/2018 08:30:[address] [facility] Value Range Interpretation Description Data Sup porting Code Source(s) Document(s ) Erythrocyte mean 31.2 [facility] corpuscular g/dL Hospital hemoglobin concentration [Mass/volume] by Automated count ID Date Data Source [id number] 12/26/2018 08:30:[address] [facility] Value Range Interpretation Description Data Sup porting Code Source(s) Document(s ) Erythrocyte 24.1 pg [facility] corpuscular hemoglobin [Entitic mass] by Automated count ID Date Data Source [id number] 12/26/2018 08:30:[address] [facility] Value Range Interpretation Description Data Sup porting Code Source(s) Document(s ) Erythrocyte 77.3 fL [facility] mean Hospital corpuscular volume [Entitic volume] by Automated count ID Date Data Source [id number] 12/26/2018 08:30:00 AM [facility] Name Value Range Interpretation Description Data Sup porting Code Source(s) Document(s ) Hematocrit 23.1 % [facility] [Volume Hospital Fraction] of Blood by Automated count ID Date Data Source [id number] 12/26/2018 08:30:00 AM [facility] NOTIFICATION AND READ BACK OF CRITICAL R ESULTS TO KENDELL HAMMER RN 4E AT 0942 ON 12/26/18 BY Pat Rapp. Name Value Range Interpretation Description Data Sup porting Code Source(s) Document(s ) Hemoglobin 7.2 g/dL [facility] [Mass/volume] Hospital in Blood ID Date Data Source [id number] 12/26/2018 08:30:00 AM [facility] Name Value Range Interpretation Description Data Sup porting Code Source(s) Document(s ) Erythrocytes 2.99 [facility] [#/volume] in 10*6/uL Hospital Blood by Automated count ID Date Data Source [id number] 12/26/2018 08:30:00 AM [facility] Name Value Range Interpretation Description Data Sup porting Code Source(s) Document(s ) Leukocytes 8.9 [facility] [#/volume] in 10*3/uL Hospital Blood by Automated count ID Date Data Source [id number] 12/26/2018 08:30:00 AM [facility] THERE ARE NO REFERENCE RANGES FOR RANDOM VANCOMYCIN LEVELS. Name Value Range Interpretation Description Data Sup porting Code Source(s) Document(s ) Vancomycin 11.9 [facility] [Mass/volume] ug/mL Hospital in Serum or Plasma --trough ID Date Data Source [id number] 12/22/2018 10:54:00 PM [facility] NOTIFICATION AND READ BACK OF CRITICAL R ESULTS TO CARLA BOWERS RN-4E AT 2350 ON 12/22/18 BY Radha Page.NOTE: NEW RE FERENCE RANGE, EFFECTIVE 07/26/16.REPORTED CRITICAL VALUES SHOULD BE INTERPRETED WI THIN CLINICAL CONTEXT. Name Value Range Interpretation Description Data Sup porting Code Source(s) Document(s ) Vancomycin 23.7 [facility] [Mass/volume] ug/mL Hospital in Serum or Plasma --trough ID Date Data Source [id number] 12/22/2018 06:11:00 AM [facility] Name Value Range Interpretation Code Description Data Jackie rce(s) Supporting Document(s ) URINE 0-5 Health system CASTS ID Date Data Source [id number] 12/22/2018 06:11:00 AM [facility] Name Value Range Interpretation Description Data Sup porting Code Source(s) Document(s ) Erythrocytes 5-10 [facility] [#/area] in /[HPF] Hospital Urine sediment by Automated count ID Date Data Source [id number] 12/22/2018 06:11:00 AM [facility] Name Value Range Interpretation Description Data Sup porting Code Source(s) Document(s ) Leukocytes 0-3 [facility] [#/area] in /[HPF] Hospital Urine sediment by Automated count ID Date Data Source [id number] 12/22/2018 06:11:00 AM [facility] Name Value Range Interpretation Description Data Sup porting Code Source(s) Document(s ) Leukocyte NEGATIVE [facility] [Presence] in Urine by Test strip ID Date Data Source [id number] 12/22/2018 06:11:00 AM EDT [facility] Name Value Range Interpretation Description Data Sup porting Code Source(s) Document(s ) URINE NEGATIVE [facility] NITRITES Hospital ID Date Data Source [id number] 12/22/2018 06:11:00 AM EDT [facility] Name Value Range Interpretation Description Data Sup porting Code Source(s) Document(s ) Erythrocytes TRACE [facility] [#/volume] in Hospital Urine by Test strip ID Date Data Source [id number] 12/22/2018 06:11:00 AM EDT [facility] Name Value Range Interpretation Code Description Data Jackie rce(s) Supporting Document(s ) Bilirubin. NEGATIVE [facility] total Hospital [Presence] in Urine by Test strip ID Date Data Source [id number] 12/22/2018 06:11:00 AM EDT [facility] Name Value Range Interpretation Description Data Sup porting Code Source(s) Document(s ) Urobilinogen 0.2 [facility] [Units/volume] mg/dL Hospital in Urine by Test strip ID Date Data Source [id number] 12/22/2018 06:11:00 AM EDT [facility] Name Value Range Interpretation Description Data Sup porting Code Source(s) Document(s ) Ketones NEGATIVE [facility] [Mass/volume Hospital ] in Urine by Test strip ID Date Data Source [id number] 12/22/2018 06:11:00 AM EDT [facility] Name Value Range Interpretation Code Description Data Jackie rce(s) Supporting Document(s ) Glucose TRACE [facility] [Mass/volume Hospital ] in Urine by Test strip ID Date Data Source [id number] 12/22/2018 06:11:00 AM EDT [facility] Name Value Range Interpretation Code Description Data Jackie rce(s) Supporting Document(s ) Protein 2+ [facility] [Presence] Hospital in Urine by Test strip ID Date Data Source [id number] 12/22/2018 06:11:00 AM EDT [facility] Name Value Range Interpretation Code Description Data Jackie rce(s) Supporting Document(s ) pH of Urine 6.5 [facility] by Test Hospital strip ID Date Data Source [id number] 12/22/2018 06:11:00 AM EDT [facility] Name Value Range Interpretation Code Description Data Supporting Source(s) Document(s ) Specific 1.012 [facility] gravity of Hospital Urine by Test strip ID Date Data Source [id number] 12/22/2018 06:11:00 AM EDT [facility] Value Range Interpretation Description Data Sup porting Code Source(s) Document(s ) Clarity in Urine CLEAR [facility] by Refractometry Hospital automated ID Date Data Source [id number] 12/22/2018 06:11:00 AM EDT [facility] Value Range Interpretation Code Description Data Jackie rce(s) Supporting Document(s ) Color of YELLOW [facility] Urine Hospital ID Date Data Source [id number] 12/22/2018 [facility]11[facility] Interpretation Code Description Data Jackie rce(s) Supporting Document(s ) URINE 0-5 [facility] HYALINE Hospital CASTS ID Date Data Source [id number] 12/22/2018 06:11:00 AM EDT [facility] Name Value Range Interpretation Description Data Sup porting Code Source(s) Document(s ) Erythrocytes 5-10 [facility] [#/area] in /[HPF] Hospital Urine sediment by Automated count ID Date Data Source [id number] 12/22/2018 06:11:00 AM EDT [facility] Name Value Range Interpretation Description Data Sup porting Code Source(s) Document(s ) Leukocytes 0-3 [facility] [#/area] in /[HPF] Hospital Urine sediment by Automated count ID Date Data Source [id number] 12/22/2018 06:11:00 AM EDT [facility] Name Value Range Interpretation Description Data Sup porting Code Source(s) Document(s ) Leukocyte NEGATIVE [facility] esterase Hospital [Presence] in Urine by Test strip ID Date Data Source [id number] 12/22/2018 06:11:00 AM EDT [facility] Name Value Range Interpretation Description Data Sup porting Code Source(s) Document(s ) URINE NEGATIVE [facility] NITRITES Hospital ID Date Data Source [id number] 12/22/2018 06:11:00 AM EDT [facility] Name Value Range Interpretation Description Data Sup porting Code Source(s) Document(s ) Erythrocytes TRACE [facility] [#/volume] in Hospital Urine by Test strip ID Date Data Source [id number] 12/22/2018 06:11:00 AM [facility] Name Value Range Interpretation Code Description Data Jackie rce(s) Supporting Document(s ) Bilirubin. NEGATIVE [facility] total Hospital [Presence] in Urine by Test strip ID Date Data Source [id number] 12/22/2018 06:11:00 AM EDT [facility] Name Value Range Interpretation Description Data Sup porting Code Source(s) Document(s ) Urobilinogen 0.2 [facility] [Units/volume] mg/dL Hospital in Urine by Test strip ID Date Data Source [id number] 12/22/2018 06:11:00 AM EDT [facility] Name Value Range Interpretation Description Data Sup porting Code Source(s) Document(s ) Ketones NEGATIVE [facility] [Mass/volume Hospital ] in Urine by Test strip ID Date Data Source [id number] 12/22/2018 06:11:00 AM EDT [facility] Name Value Range Interpretation Code Description Data Jackie rce(s) Supporting Document(s ) Glucose TRACE [facility] [Mass/volume Hospital ] in Urine by Test strip ID Date Data Source [id number] 12/22/2018 06:11:00 AM EDT [facility] Name Value Range Interpretation Code Description Data Jackie rce(s) Supporting Document(s ) Protein 2+ [facility] [Presence] Hospital in Urine by Test strip ID Date Data Source [id number] 12/22/2018 06:11:00 AM EDT [facility] Value Range Interpretation Code Description Data Jackie rce(s) Supporting Document(s ) pH of Urine 6.5 [facility] by Test Hospital strip ID Date Data Source [id number] 12/22/2018 06:11:00 AM EDT [facility] Name Value Range Interpretation Code Description Data Supporting Source(s) Document(s ) Specific 1.012 [facility] gravity of Hospital Urine by Test strip ID Date Data Source [id number] 12/22/2018 06:11:00 AM EDT [facility] Name Value Range Interpretation Description Data Sup porting Code Source(s) Document(s ) Clarity in Urine CLEAR [facility] by Ref[facility]ometry [facility] automated ID Date Data Source [id number] 12/22/2018 06:11:00 AM EDT [facility] Name Value Range Interpretation Code Description Data Jackie rce(s) Supporting Document(s ) Color of YELLOW [facility] Urine Hospital ID Date Data Source [id number] 12/22/2018 02:44:00 AM EDT [facility] Name Value Range Interpretation Code Description Data Supporting Source(s) Document(s ) NUCLEATED RBCS 0.0 % [facility] (AUTO Hospital DIFF%)DIS ID Date Data Source [id number] 12/22/2018 02:44:00 AM EDT [facility] Value Range Interpretation Description Data Sup porting Code Source(s) Document(s ) Differential AUTOMATED [facility] cell count [facility] method - Blood ID Date Data Source [id number] 12/22/2018 02:44:00 AM EDT [facility] Name Value Range Interpretation Description Data Sup porting Code Source(s) Document(s ) Immature 0.05 [facility] granulocytes 10*3/uL Hospital [#/volume] in Blood by Automated count ID Date Data Source [id number] 12/22/2018 02:44:00 AM EDT [facility] Value Range Interpretation Description Data Sup porting Code Source(s) Document(s ) Basophils 0.04 [facility] [#/volume] in 10*3/uL Hospital Blood by Automated count ID Date Data Source [id number] 12/22/2018 02:44:00 AM EDT [facility] Name Value Range Interpretation Description Data Sup porting Code Source(s) Document(s ) Eosinophils 0.20 [facility] [#/volume] in 10*3/uL Hospital Blood by Automated count ID Date Data Source [id number] 12/22/2018 02:44:00 AM EDT [facility] Name Value Range Interpretation Description Data Sup porting Code Source(s) Document(s ) Monocytes 1.47 [facility] [#/volume] in 10*3/uL Hospital Blood by Automated count ID Date Data Source [id number] 12/22/2018 02:44:00 AM EDT [facility] Value Range Interpretation Description Data Sup porting Code Source(s) Document(s ) Lymphocytes 1.94 [facility] [#/volume] in 10*3/uL Hospital Blood by Automated count ID Date Data Source [id number] 12/22/2018 02:44:00 AM EDT [facility] Value Range Interpretation Description Data Sup porting Code Source(s) Document(s ) Neutrophils 8.25 [facility] [#/volume] in 10*3/uL Hospital Blood by Automated count ID Date Data Source [id number] 12/22/2018 02:44:00 AM EDT [facility] Value Range Interpretation Description Data Sup porting Code Source(s) Document(s ) Nucleated 0.0 % [facility] erythrocytes/10 Hospital 0 leukocytes [Ratio] in Blood by Automated count ID Date Data Source [id number] 12/22/2018 02:44:00 AM EDT [facility] Value Range Interpretation Description Data Sup porting Code Source(s) Document(s ) Immature 0.4 % [facility] granulocytes/10 Hospital 0 leukocytes in Blood by Automated count ID Date Data Source [id number] 12/22/2018 02:44:00 AM EDT [facility] Value Range Interpretation Description Data Sup porting Code Source(s) Document(s ) Basophils/100 0.3 % [facility] leukocytes in [facility] Blood by Automated count ID Date Data Source [id number] 12/22/2018 02:44:00 AM EDT [facility] Value Range Interpretation Description Data Sup porting Code Source(s) Document(s ) Eosinophils/100 1.7 % [facility] leukocytes in Hospital Blood by Automated count ID Date Data Source [id number] 12/22/2018 02:44:00 AM EDT [facility] Value Range Interpretation Description Data Sup porting Code Source(s) Document(s ) Monocytes/100 12.3 % [facility] leukocytes in Hospital Blood by Automated count ID Date Data Source [id number] 12/22/2018 02:44:00 AM EDT [facility] Name Value Range Interpretation Description Data Sup porting Code Source(s) Document(s ) Lymphocytes/10 16.2 % [facility] 0 leukocytes Hospital in Blood by Automated count ID Date Data Source [id number] 12/22/2018 02:44:00 AM EDT [facility] Name Value Range Interpretation Description Data Sup porting Code Source(s) Document(s ) Neutrophils/10 69.1 % [facility] 0 leukocytes Hospital in Blood by Automated count ID Date Data Source [id number] 12/22/2018 01:34:00 AM EDT [facility] Value Range Interpretation Description Data Sup porting Code Source(s) Document(s ) Lactate 0.7 [facility] [Moles/volum mmol/L Hospital e] in Serum or Plasma ID Date Data Source [id number] 12/21/2018 08:27:00 PM EDT [facility] Name Value Range Interpretation Description Data Sup porting Code Source(s) Document(s ) Bacteria METHICILLIN [facility] identified in RES [facility] [place] [facility] Culture ID Date Data Source [id number] 12/21/2018 08:27:00 PM EDT [facility] Name Value Range Interpretation Description Data Sup porting Code Source(s) Document(s ) Bacteria METHICILLIN White identified in RES [facility] [place] [facility] Culture ID Date Data Source [id number] 12/21/2018 11:22:00 AM EDT [facility] Name Value Range Interpretation Description Data Sup porting Code Source(s) Document(s ) GLUCOSE RN Notified [facility] Hospital ID Date Data Source [id number] 12/20/2018 07:57:00 PM EDT [facility] Name Value Range Interpretation Description Data Sup porting Code Source(s) Document(s ) Bacteria METHICILLIN White identified in RES [facility] Urine by [facility] Culture ID Date Data Source [id number] 12/20/2018 07:57:00 PM EDT [facility] Name Value Range Interpretation Description Data Sup porting Code Source(s) Document(s ) Hyaline casts 0-5/LPF [facility] [#/area] in Hospital Urine sediment by Microscopy low power field ID Date Data Source [id number] 12/20/2018 07:57:00 PM EDT [facility] Name Value Range Interpretation Description Data Sup porting Code Source(s) Document(s ) Epithelial 2+ [facility] cells.[facility] [#/area] in Urine sediment by Microscopy high power field ID Date Data Source [id number] [facility] Description Data Sup porting Code Source(s) Document(s ) Bacteria OCCASIONAL [facility] [#/area] in Hospital Urine sediment by Microscopy high power field ID Date Data Source [id number] 12/20/2018 [facility] Interpretation Description Data Sup porting Code Source(s) Document(s ) Erythrocytes 5-10 [facility] [#/area] in /[HPF] Hospital Urine sediment by Microscopy high power field ID Date Data Source [id number] 12/[facility] Value Range Interpretation Description Data Sup porting Code Source(s) Document(s ) Leukocytes 10-20 [facility] [#/area] in /[HPF] Hospital Urine sediment by Microscopy high power field ID Date Data Source [id number] 12/20/2018 07:57:00 PM EDT [facility] Name Value Range Interpretation Description Data Sup porting Code Source(s) Document(s ) Bacteria METHICILLIN White identified in RES [facility] Urine by [facility] Culture ID Date Data Source [id number] 12/20/2018 [facility] Interpretation Description Data Sup porting Code Source(s) Document(s ) Hyaline casts 0-5/LPF [facility] [#/area] in Hospital Urine sediment by Microscopy low power field ID Date Data Source [id number] 12/20/2018 [facility] Interpretation Description Data Sup porting Code Source(s) Document(s ) Epithelial 2+ [facility] cells.[facility] [#/area] in Urine sediment by Microscopy high power field ID Date Data Source [id number] 12/20/2018 [facility] Interpretation Description Data Sup porting Code Source(s) Document(s ) Bacteria OCCASIONAL [facility] [#/area] in Hospital Urine sediment by Microscopy high power field ID Date Data Source [id number] 12/20/2018 07:57:00 PM [facility] Name Value Range Interpretation Description Data Sup porting Code Source(s) Document(s ) Erythrocytes 5-10 [facility] [#/area] in /[HPF] Hospital Urine sediment by Microscopy high power field ID Date Data Source [id number] 12/20/2018 07:57:00 PM [facility] Name Value Range Interpretation Description Data Sup porting Code Source(s) Document(s ) Leukocytes 10-20 [facility] [#/area] in /[HPF] Hospital Urine sediment by Microscopy high power field ID Date Data Source [id number] 12/20/2018 10:02:00 AM [facility] TEST PERFORMED BY [employer] SENSIT[employer] CHEMILUMINESCENCE METHOD. Name Value Range Interpretation Description Data Sup porting Code Source(s) Document(s ) Troponin 0.01 [facility] I.cardiac ng/mL Hospital [Mass/volume ] in Serum or Plasma ID Date Data Source [id number] 12/20/2018 10:02:00 AM EDT [facility] Name Value Range Interpretation Description Data Sup porting Code Source(s) Document(s ) Procalcitonin 0.4 [facility] [Mass/volume] in ng/mL Hospital Serum or Plasma ID Date Data Source [id number] 12/20/2018 10:02:00 AM [facility] Name Value Range Interpretation Code Description Data Jackie rce(s) Supporting Document(s ) Lipase 21 U/L [facility] [Enzymatic Hospital activity/vo lume] in Serum or Plasma ID Date Data Source [id number] 12/20/2018 10:02:00 AM [facility] Name Value Range Interpretation Description Data Sup porting Code Source(s) Document(s ) Magnesium 1.3 mg/dL [facility] [Mass/volume] Hospital in Serum or Plasma ID Date Data Source [id number] 12/20/2018 10:02:00 AM [facility] Name Value Range Interpretation Description Data Sup porting Code Source(s) Document(s ) Aspartate 24 U/L [facility] aminotransferase [place] [Enzymatic Hospital activity/volume] in Serum or Plasma ID Date Data Source [id number] 12/20/2018 [facility] Interpretation Description Data Sup porting Code Source(s) Document(s ) Alanine 17 U/L [facility] aminotransferase [place] [Enzymatic Hospital activity/volume] in Serum or Plasma ID Date Data Source [id number] 12/20/2018 10:02:00 AM EDT [facility] Name Value Range Interpretation Description Data Sup porting Code Source(s) Document(s ) Alkaline 208 U/L [facility] [Enzymatic activity/volume ] in Serum or Plasma ID Date Data Source [id number] 12/20/2018 [facility] Interpretation Description Data Sup porting Code Source(s) Document(s ) Bilirubin.t 0.5 mg/dL [facility] [Mass/volum e] in Serum or Plasma ID Date Data Source [id number] 12/20/2018 10:02:00 AM [facility] Name Value Range Interpretation Code Description Data Jackie rce(s) Supporting Document(s ) Albumin/Glob 0.9 [facility] [Mass Hospital Ratio] in Serum or Plasma ID Date Data Source [id number] 12/20/2018 10:02:00 AM [facility] Name Value Range Interpretation Description Data Sup porting Code Source(s) Document(s ) Albumin 3.8 g/dL [facility] [Mass/volume Hospital ] in Serum or Plasma ID Date Data Source [id number] 12/20/2018 10:02:00 AM [facility] Name Value Range Interpretation Description Data Sup porting Code Source(s) Document(s ) Protein 8.1 g/dL [facility] [Mass/volume Hospital ] in Serum or Plasma ID Date Data Source [id number] 12/20/2018 10:02:00 AM [facility] THERAPEUTIC RANGES:UNFRACTIONATED HEPARI N THERAPY: 60-90 SECONDSARGATROBAN THERAPY: 49-99 SECONDS Name Value Range Interpretation Description Data Sup porting Code Source(s) Document(s ) aPTT in 33.5 s [facility] Platelet poor [facility] plasma by Coagulation assay ID Date Data Source [id number] 12/20/2018 10:02:00 AM [facility] THERAPEUTIC RANGE FOR STANDARD ORALANTIC OAGULANT THERAPY: 2.0-3.0THERAPEUTIC RANGE FOR HIGH DOSE ORALANTICOAGULANT THERAPY (MECHANICAL HEARTVALVE REPLACEMENT): 2.5-3.5 Name Value Range Interpretation Description Data Sup porting Code Source(s) Document(s ) INR in Platelet 1.3 [facility] poor plasma by Hospital Coagulation assay ID Date Data Source [id number] 12/20/2018 10:02:00 AM EDT [facility] Name Value Range Interpretation Description Data Sup porting Code Source(s) Document(s ) PT panel - 15.0 s [facility] Platelet poor [facility] plasma by Coagulation assay ID Date Data Source [id number] 12/20/2018 10:02:00 AM [facility] Name Value Range Interpretation Code Description Data Jackie rce(s) Supporting Document(s ) Cells 100 [facility] Total [#] in Blood ID Date Data Source [id number] 12/20/2018 10:02:00 AM [facility] Name Value Range Interpretation Code Description Data Supporting Source(s) Document(s ) PLATELET NORMAL [facility] Hospital ID Date Data Source [id number] 12/20/2018 10:02:00 AM [facility] Name Value Range Interpretation Code Description Data Jackie rce(s) Supporting Document(s ) LANI CELLS 1+ [facility] ID Date Data Source [id number] 12/20/2018 10:02:00 AM [facility] Name Value Range Interpretation Code Description Data Jackie rce(s) Supporting Document(s ) TARGET CELLS OCC [facility] ID Date Data Source [id number] 12/20/2018 10:02:00 AM EDT [facility] Name Value Range Interpretation Code Description Data Jackie rce(s) Supporting Document(s ) HYPOCHROMIA OCC [facility] ID Date Data Source [id number] 12/20/2018 10:02:00 AM EDT [facility] Name Value Range Interpretation Code Description Data Jackie rce(s) Supporting Document(s ) MICROCYTOSIS 2+ [facility] ID Date Data Source [id number] 12/20/2018 10:02:00 AM EDT [facility] Name Value Range Interpretation Description Data Sup porting Code Source(s) Document(s ) POIKILOCYTOSIS 1+ [facility] ID Date Data Source [id number] 12/20/2018 10:02:00 AM EDT [facility] Value Range Interpretation Code Description Data Jackie rce(s) Supporting Document(s ) ANISOCYTOSIS 1+ [facility] ID Date Data Source [id number] 12/20/2018 10:02:00 AM EDT [facility] Value Range Interpretation Description Data Sup porting Code Source(s) Document(s ) Basophils 0.26 [facility] [#/volume] in 10*3/uL Hospital Blood by Manual count ID Date Data Source [id number] 12/20/2018 10:02:00 AM EDT [facility] Value Range Interpretation Description Data Sup porting Code Source(s) Document(s ) Monocytes 1.31 [facility] [#/volume] in 10*3/uL Hospital Blood by Manual count ID Date Data Source [id number] 12/20/2018 10:02:00 AM EDT [facility] Value Range Interpretation Description Data Sup porting Code Source(s) Document(s ) Lymphocytes 4.18 [facility] [#/volume] in 10*3/uL Hospital Blood by Manual count ID Date Data Source [id number] 12/20/2018 10:02:00 AM EDT [facility] Value Range Interpretation Description Data Sup porting Code Source(s) Document(s ) Neutrophils 20.36 [facility] [#/volume] in 10*3/uL Hospital Blood by Manual count ID Date Data Source [id number] 12/20/2018 10:02:00 AM EDT [facility] Value Range Interpretation Description Data Sup porting Code Source(s) Document(s ) Basophils/100 1 % [facility] leukocytes in Hospital Blood by Manual count ID Date Data Source [id number] 12/20/2018 10:02:00 AM EDT [facility] Value Range Interpretation Description Data Sup porting Code Source(s) Document(s ) Monocytes/100 5 % [facility] leukocytes in Hospital Blood by Manual count ID Date Data Source [id number] 12/20/2018 10:02:00 AM EDT [facility] Value Range Interpretation Description Data Sup porting Code Source(s) Document(s ) Variant 1 % [facility] lymphocytes/100 Hospital leukocytes in Blood by Manual count ID Date Data Source [id number] 12/20/2018 10:02:00 AM EDT [facility] Value Range Interpretation Description Data Sup porting Code Source(s) Document(s ) Lymphocytes/100 15 % [facility] leukocytes in Hospital Blood by Manual count ID Date Data Source [id number] 12/20/2018 10:02:00 AM EDT [facility] Value Range Interpretation Description Data Sup porting Code Source(s) Document(s ) Neutrophils/100 78 % [facility] leukocytes in Hospital Blood by Manual count ID Date Data Source [id number] 12/20/2018 10:02:00 AM EDT [facility] Name Value Range Interpretation Description Data Sup porting Code Source(s) Document(s ) Procalcitonin 0.4 [facility] [Mass/volume] in ng/mL Hospital Serum or Plasma ID Date Data Source [id number] 12/20/2018 10:02:00 AM EDT [facility] Name Value Range Interpretation Code Description Data Jackie rce(s) Supporting Document(s ) Lipase 21 U/L [facility] [Enzymatic Hospital activity/vo lume] in Serum or Plasma ID Date Data Source [id number] 12/20/2018 10:02:00 AM EDT [facility] Name Value Range Interpretation Description Data Sup porting Code Source(s) Document(s ) Magnesium 1.3 mg/dL [facility] [Mass/volume] Hospital in Serum or Plasma ID Date Data Source [id number] 12/20/2018 10:02:00 AM [facility] THERAPEUTIC RANGES:UNFRACTIONATED HEPARI N THERAPY: 60-90 SECONDSARGATROBAN THERAPY: 49-99 SECONDS Name Value Range Interpretation Description Data Sup porting Code Source(s) Document(s ) aPTT in 33.5 s [facility] Platelet poor [facility] plasma by Coagulation assay ID Date Data Source [id number] 12/20/2018 [facility] Interpretation Code Description Data Jackie rce(s) Supporting Document(s ) Cells 100 [facility] Hospital Total [#] in Blood ID Date Data Source [id number] 12/20/2018 10:02:00 AM EDT [facility] Name Value Range Interpretation Code Description Data Supporting Source(s) Document(s ) PLATELET NORMAL [facility] Hospital ID Date Data Source [id number] 12/20/2018 10:02:00 AM EDT [facility] Name Value Range Interpretation Code Description Data Jackie rce(s) Supporting Document(s ) LANI CELLS 1+ [facility] ID Date Data Source [id number] 12/20/2018 10:02:00 AM EDT [facility] Value Range Interpretation Code Description Data Jackie rce(s) Supporting Document(s ) TARGET CELLS OCC [facility] ID Date Data Source [id number] 12/20/2018 10:02:00 AM EDT [facility] Name Value Range Interpretation Code Description Data Jackie rce(s) Supporting Document(s ) HYPOCHROMIA OCC [facility] ID Date Data Source [id number] 12/20/2018 10:02:00 AM EDT [facility] Value Range Interpretation Code Description Data Jackie rce(s) Supporting Document(s ) MICROCYTOSIS 2+ [facility] ID Date Data Source [id number] 12/20/2018 10:02:00 AM EDT [facility] Value Range Interpretation Description Data Sup porting Code Source(s) Document(s ) POIKILOCYTOSIS 1+ [facility] ID Date Data Source [id number] 12/20/2018 10:02:00 AM EDT [facility] Value Range Interpretation Code Description Data Jackie rce(s) Supporting Document(s ) ANISOCYTOSIS 1+ [facility] ID Date Data Source [id number] 12/20/2018 10:02:00 AM EDT [facility] Value Range Interpretation Description Data Sup porting Code Source(s) Document(s ) Basophils 0.26 [facility] [#/volume] in 10*3/uL Hospital Blood by Manual count ID Date Data Source [id number] 12/20/2018 10:02:00 AM EDT [facility] Value Range Interpretation Description Data Sup porting Code Source(s) Document(s ) Monocytes 1.31 [facility] [#/volume] in 10*3/uL Hospital Blood by Manual count ID Date Data Source [id number] 12/20/2018 10:02:00 AM EDT [facility] Name Value Range Interpretation Description Data Sup porting Code Source(s) Document(s ) Lymphocytes 4.18 [facility] [#/volume] in 10*3/uL Hospital Blood by Manual count ID Date Data Source [id number] 12/20/2018 10:02:00 AM EDT [facility] Value Range Interpretation Description Data Sup porting Code Source(s) Document(s ) Neutrophils 20.36 [facility] [#/volume] in 10*3/uL [facility] Blood by Manual count ID Date Data Source [id number] 12/20/2018 10:02:00 AM EDT [facility] Value Range Interpretation Description Data Sup porting Code Source(s) Document(s ) Basophils/100 1 % [facility] leukocytes in Hospital Blood by Manual count ID Date Data Source [id number] 12/20/2018 10:02:00 AM EDT [facility] Value Range Interpretation Description Data Sup porting Code Source(s) Document(s ) Monocytes/100 5 % [facility] leukocytes in Hospital Blood by Manual count ID Date Data Source [id number] 12/20/2018 10:02:00 AM EDT [facility] Value Range Interpretation Description Data Sup porting Code Source(s) Document(s ) Variant 1 % [facility] lymphocytes/100 Hospital leukocytes in Blood by Manual count ID Date Data Source [id number] 12/20/2018 10:02:00 AM EDT [facility] Value Range Interpretation Description Data Sup porting Code Source(s) Document(s ) Lymphocytes/100 15 % [facility] leukocytes in Hospital Blood by Manual count ID Date Data Source [id number] 12/20/2018 10:02:[address] [facility] Value Range Interpretation Description Data Sup porting Code Source(s) Document(s ) Neutrophils/100 78 % [facility] leukocytes in Hospital Blood by Manual count ID Date Data Source [id number] 12/20/2018 09:49:00 AM [facility] Name Value Range Interpretation Description Data Sup porting Code Source(s) Document(s ) Bacteria METHICILLIN [facility] identified in RES STAPH [place] Blood by [facility] Culture ID Date Data Source [id number] 12/18/2018 02:58:[address] [facility] Value Range Interpretation Description Data Sup porting Code Source(s) Document(s ) Bacteria CORYNEBACTERIUM [facility] identified SPECIES [place] in Wound by Hospital Culture Bacteria METHICILLIN RES [facility] identified STAPH [facility] [place] in Wound by Hospital Culture ID Date Data Source [id number] 12/18/2018 06:27:00 AM [facility] Laboratory Sample Carrier:FIDELIA CESPEDES Name Value Range Interpretation Description Data Sup porting Code Source(s) Document(s ) Glucose 177 mg/dL [facility] [Mass/volume] [facility] in Capillary blood by Glucometer ID Date Data Source [id number] 12/17/2018 11:03:[address] [facility] Value Range Interpretation Description Data Sup porting Code Source(s) Document(s ) GLUCOSE Pre Meal [facility] COMMENT2 Hospital ID Date Data Source [id number] 12/17/2018 11:03:[address] [facility] Value Range Interpretation Description Data Sup porting Code Source(s) Document(s ) GLUCOSE Pre Meal [facility] COMMENT2 Hospital ID Date Data Source [id number] 12/17/2018 11:03:00 AM EDT [facility] Name Value Range Interpretation Description Data Sup porting Code Source(s) Document(s ) GLUCOSE RN Notified [facility] Hospital ID Date Data Source [id number] 12/17/2018 08:45:00 AM EDT [facility] Name Value Range Interpretation Description Data Sup porting Code Source(s) Document(s ) Calcium 8.4 mg/dL [facility] [Mass/volume Hospital ] in Serum or Plasma ID Date Data Source [id number] 12/17/2018 08:45:00 AM EDT [facility] Value Range Interpretation Code Description Data Jackie rce(s) Supporting Document(s ) Urea 13.8 [facility] nitrogen/Cre Hospital atinine [Mass Ratio] in Serum or Plasma ID Date Data Source [id number] 12/17/2018 08:45:00 AM EDT [facility] Value Range Interpretation Description Data Sup porting Code Source(s) Document(s ) Creatinine 0.8 mg/dL [facility] [Mass/volume] Hospital in Serum or Plasma ID Date Data Source [id number] 12/17/2018 08:45:00 AM EDT [facility] Value Range Interpretation Description Data Sup porting Code Source(s) Document(s ) Urea 11 mg/dL [facility] nitrogen Hospital [Mass/volume ] in Serum or Plasma ID Date Data Source [id number] 12/17/2018 08:45:00 AM EDT [facility] Value Range Interpretation Code Description Data Jackie rce(s) Supporting Document(s ) Anion gap in 12 [facility] Serum or [facility] Plasma ID Date Data Source [id number] 12/17/2018 08:45:00 AM EDT [facility] Value Range Interpretation Description Data Sup porting Code Source(s) Document(s ) Carbon 25 mmol/L [facility] dioxide, Hospital total [Moles/volu me] in Serum or Plasma ID Date Data Source [id number] 12/17/2018 08:45:00 AM EDT [facility] Name Value Range Interpretation Description Data Sup porting Code Source(s) Document(s ) Chloride 99 mmol/L [facility] [Moles/volum Hospital e] in Serum or Plasma ID Date Data Source [id number] 12/17/2018 08:45:00 AM EDT [facility] Name Value Range Interpretation Description Data Sup porting Code Source(s) Document(s ) Potassium 4.0 [facility] [Moles/volume mmol/L Hospital ] in Serum or Plasma ID Date Data Source [id number] 12/17/2018 08:45:00 AM EDT [facility] Name Value Range Interpretation Description Data Sup porting Code Source(s) Document(s ) Sodium 132 mmol/L [facility] [Moles/volu Hospital me] in Serum or Plasma ID Date Data Source [id number] 12/17/2018 08:45:00 AM EDT [facility] Name Value Range Interpretation Description Data Sup porting Code Source(s) Document(s ) Glucose 198 mg/dL [facility] [Mass/volume Hospital ] in Serum or Plasma ID Date Data Source [id number] 12/17/2018 08:45:00 AM EDT [facility] Name Value Range Interpretation Description Data Sup porting Code Source(s) Document(s ) Differential AUTOMATED [facility] cell count Hospital method - Blood ID Date Data Source [id number] 12/17/2018 08:45:00 AM EDT [facility] Name Value Range Interpretation Description Data Sup porting Code Source(s) Document(s ) Immature 0.06 [facility] granulocytes 10*3/uL Hospital [#/volume] in Blood by Automated count ID Date Data Source [id number] 12/17/2018 08:45:00 AM EDT [facility] Value Range Interpretation Description Data Sup porting Code Source(s) Document(s ) Basophils 0.04 [facility] [#/volume] in 10*3/uL Hospital Blood by Automated count ID Date Data Source [id number] 12/17/2018 08:45:00 AM EDT [facility] Value Range Interpretation Description Data Sup porting Code Source(s) Document(s ) Eosinophils 0.25 [facility] [#/volume] in 10*3/uL Hospital Blood by Automated count ID Date Data Source [id number] 12/17/2018 08:45:00 AM EDT [facility] Value Range Interpretation Description Data Sup porting Code Source(s) Document(s ) Monocytes 1.42 [facility] [#/volume] in 10*3/uL Hospital Blood by Automated count ID Date Data Source [id number] 12/17[facility]2018 [facility] Interpret[facility] Description Data Sup porting Code Source(s) Document(s ) Lymphocytes 2.54 [facility] [#/volume] in 10*3/uL Hospital Blood by Automated count ID Date Data Source [id number] 12/17/2018 08:45:00 AM EDT [facility] Name Value Range Interpretation Description Data Sup porting Code Source(s) Document(s ) Neutrophils 8.07 [facility] [#/volume] in 10*3/uL Hospital Blood by Automated count ID Date Data Source [id number] 12/17/2018 08:45:00 AM EDT [facility] Value Range Interpretation Description Data Sup porting Code Source(s) Document(s ) Nucleated 0.0 % [facility] erythrocytes/10 Hospital 0 leukocytes [Ratio] in Blood by Automated count ID Date Data Source [id number] 12/17/2018 08:45:00 AM EDT [facility] Name Value Range Interpretation Description Data Sup porting Code Source(s) Document(s ) Immature 0.5 % [facility] granulocytes/10 Hospital 0 leukocytes in Blood by Automated count ID Date Data Source [id number] 12/17/2018 08:45:00 AM EDT [facility] Value Range Interpretation Description Data Sup porting Code Source(s) Document(s ) Basophils/100 0.3 % [facility] leukocytes in Hospital Blood by Automated count ID Date Data Source [id number] 12/17/2018 08:45:00 AM EDT [facility] Value Range Interpretation Description Data Sup porting Code Source(s) Document(s ) Eosinophils/100 2.0 % [facility] leukocytes in Hospital Blood by Automated count ID Date Data Source [id number] 12/17/2018 08:45:00 AM EDT [facility] Value Range Interpretation Description Data Sup porting Code Source(s) Document(s ) Monocytes/100 11.5 % [facility] leukocytes in Hospital Blood by Automated count ID Date Data Source [id number] 12/17/2018 08:45:00 AM EDT [facility] Value Range Interpretation Description Data Sup porting Code Source(s) Document(s ) Lymphocytes/10 20.5 % [facility] 0 leukocytes Hospital in Blood by Automated count ID Date Data Source [id number] 12/17/2018 08:45:00 AM EDT [facility] Name Value Range Interpretation Description Data Sup porting Code Source(s) Document(s ) Neutrophils/10 65.2 % [facility] 0 leukocytes Hospital in Blood by Automated count ID Date Data Source [id number] 12/17/2018 08:45:[address] [facility] Value Range Interpretation Description Data Sup porting Code Source(s) Document(s ) Platelet mean 10.3 fL [facility] volume Hospital [Entitic volume] in Blood by Automated count ID Date Data Source [id number] 12/17/2018 08:45:[address] [facility] Value Range Interpretation Description Data Sup porting Code Source(s) Document(s ) Platelets 386 [facility] [#/volume] in 10*3/uL Hospital Blood by Automated count ID Date Data Source [id number] 12/17/2018 08:45:[address] [facility] Value Range Interpretation Description Data Sup porting Code Source(s) Document(s ) Erythrocyte 20.1 % [facility] Hospital width [Ratio] by Automated count ID Date Data Source [id number] 12/17/2018 08:45:[address] [facility] Value Range Interpretation Description Data Sup porting Code Source(s) Document(s ) Erythrocyte mean 31.9 [facility] corpuscular g/dL Hospital hemoglobin concentration [Mass/volume] by Automated count ID Date Data Source [id number] 12/17/2018 08:45:[address] [facility] Value Range Interpretation Description Data Sup porting Code Source(s) Document(s ) Erythrocyte 24.6 pg [facility] corpuscular hemoglobin [Entitic mass] by Automated count ID Date Data Source [id number] 12/17/2018 08:45:[address] [facility] Value Range Interpretation Description Data Sup porting Code Source(s) Document(s ) Erythrocyte 76.9 fL [facility] corpuscular volume [Entitic volume] by Automated count ID Date Data Source [id number] 12/17/2018 08:45:00 AM EDT [facility] Name Value Range Interpretation Description Data Sup porting Code Source(s) Document(s ) Hematocrit 26.3 % [facility] [Volume Hospital Fraction] of Blood by Automated count ID Date Data Source [id number] 12/17/2018 08:45:00 AM EDT [facility] Name Value Range Interpretation Description Data Sup porting Code Source(s) Document(s ) Hemoglobin 8.4 g/dL [facility] [Mass/volume] Hospital in Blood ID Date Data Source [id number] 12/17/2018 08:45:00 AM EDT [facility] Name Value Range Interpretation Description Data Sup porting Code Source(s) Document(s ) Erythrocytes 3.42 [facility] [#/volume] in 10*6/uL Hospital Blood by Automated count ID Date Data Source [id number] 12/17/2018 08:45:00 AM EDT [facility] Name Value Range Interpretation Description Data Sup porting Code Source(s) Document(s ) Leukocytes 12.4 [facility] [#/volume] in 10*3/uL Hospital Blood by Automated count ID Date Data Source [id number] 12/16/2018 08:01:00 AM EDT [facility] Value Range Interpretation Description Data Sup porting Code Source(s) Document(s ) Phosphate 2.8 mg/dL [facility] [Mass/volume] Hospital in Serum or Plasma ID Date Data Source [id number] 12/16/2018 08:01:00 AM EDT [facility] Name Value Range Interpretation Description Data Sup porting Code Source(s) Document(s ) Bilirubin.d < 0.1 [facility] irect mg/dL Hospital [Mass/volum e] in Serum or Plasma ID Date Data Source [id number] 12/16/2018 08:01:00 AM [facility] UNITS ARE IN ml/min/1.73m2.IF PATIENT IS -TUVALUAN, MULTIPLY REPORTED RESULT BY 1.21. Name Value Range Interpretation Description Data Sup porting Code Source(s) Document(s ) Glomerular > 60 [facility] filtration mL/min Hospital rate/1.73 sq M.predicted [Volume Rate/Area] in Serum or Plasma by Creatinine-bas ed formula (MDRD) ID Date Data Source [id number] 12/16/2018 08:01:00 AM [facility] Name Value Range Interpretation Description Data Sup porting Code Source(s) Document(s ) Phosphate 2.8 mg/dL [facility] [Mass/volume] Hospital in Serum or Plasma ID Date Data Source [id number] 12/16/2018 08:01:00 AM [facility] Name Value Range Interpretation Description Data Sup porting Code Source(s) Document(s ) Magnesium 1.3 mg/dL [facility] [Mass/volume] Hospital in Serum or Plasma ID Date Data Source [id number] 12/16/2018 08:01:00 AM [facility] Name Value Range Interpretation Description Data Sup porting Code Source(s) Document(s ) Aspartate 15 U/L [facility] aminotransferase [place] [Enzymatic Hospital activity/volume] in Serum or Plasma ID Date Data Source [id number] 12/16/2018 08:01:00 AM [facility] Name Value Range Interpretation Description Data Sup porting Code Source(s) Document(s ) Alanine 15 U/L [facility] aminotransferase [place] [Enzymatic Hospital activity/volume] in Serum or Plasma ID Date Data Source [id number] 12/16/2018 08:01:00 AM [facility] Name Value Range Interpretation Description Data Sup porting Code Source(s) Document(s ) Alkaline 145 U/L [facility] [Enzymatic activity/volume ] in Serum or Plasma ID Date Data Source [id number] 12/16/2018 08:01:00 AM [facility] Name Value Range Interpretation Description Data Sup porting Code Source(s) Document(s ) Bilirubin.d < 0.1 [facility] irect mg/dL Hospital [Mass/volum e] in Serum or Plasma ID Date Data Source [id number] 12/16/2018 [facility] Interpretation Description Data Sup porting Code Source(s) Document(s ) Bilirubin.t 0.2 mg/dL [facility] [Mass/volum e] in Serum or Plasma ID Date Data Source [id number] 12/16/2018 08:01:00 AM [facility] Name Value Range Interpretation Code Description Data Jackie rce(s) Supporting Document(s ) [facility] Serum or Plasma ID Date Data Source [id number] 12/16/2018 08:01:00 AM [facility] Name Value Range Interpretation Description Data Sup porting Code Source(s) Document(s ) Albumin 3.3 g/dL [facility] [Mass/volume Hospital ] in Serum or Plasma ID Date Data Source [id number] 12/16/2018 08:01:00 AM [facility] Name Value Range Interpretation Description Data Sup porting Code Source(s) Document(s ) Protein 6.6 g/dL [facility] [Mass/volume Hospital ] in Serum or Plasma ID Date Data Source [id number] 12/16/2018 08:01:00 AM [facility] UNITS ARE IN ml/min/1.73m2.IF PATIENT IS -TUVALUAN, MULTIPLY REPORTED RESULT BY 1.21. Name Value Range Interpretation Description Data Sup porting Code Source(s) Document(s ) Glomerular > 60 [facility] filtration mL/min Hospital rate/1.73 sq M.predicted [Volume Rate/Area] in Serum or Plasma by Creatinine-bas ed formula (MDRD) ID Date Data Source [id number] 12/16/2018 08:01:00 AM [facility] Name Value Range Interpretation Code Description Data Supporting Source(s) Document(s ) NUCLEATED RBCS 0.0 % [facility] (AUTO Hospital DIFF%)DIS ID Date Data Source [id number] 12/15/2018 10:52:00 AM [facility] TEST PERFORMED BY [employer]ENS[employer] [facility] CHEMILUMINESCENCE METHOD. Name Value Range Interpretation Description Data Sup porting Code Source(s) Document(s ) Troponin 0.01 [facility] I.cardiac ng/mL Hospital [Mass/volume ] in Serum or Plasma ID Date Data Source [id number] 12/12/2018 07:31:00 AM [facility] Name Value Range Interpretation Description Data Sup porting Code Source(s) Document(s ) Bacteria No growth [facility] identified in Hospital Blood by Culture ID Date Data Source [id number] 12/11/2018 06:54:00 AM [facility] Name Value Range Interpretation Description Data Sup porting Code Source(s) Document(s ) Procalcitonin 0.2 [facility] [Mass/volume] in ng/mL Hospital Serum or Plasma ID Date Data Source [id number] 12/07/2018 07:11:00 PM [facility] Name Value Range Interpretation Description Data Sup porting Code Source(s) Document(s ) MEAN 80.0 fL [facility] CORPUSCULAR Hospital VOLUME ID Date Data Source [id number] 12/07/2018 [facility] Interpretation Description Data Sup porting Code Source(s) Document(s ) MEAN 80.0 fL [facility] VOLUME ID Date Data Source [id number] 12/07/2018 08:40:00 AM [facility] ADA RECOMMENDATIONS: NON-DIABETES: 4.0-6.0% CONTROLLED DIABETES: 6.0-8.0% UNCONTROLLED DIABETE S: UP TO 20%RECOMMENDED ADA RESULT FOR THERAPY: HEMOGLOBIN A1C RESULT LESS FRANK N 7%.NOTE: METHOD CHANGE EFFECTIVE 11/06/14. Name Value Range Interpretation Description Data Sup porting Code Source(s) Document(s ) Hemoglobin 7.8 % [facility] A1c/Hemoglobin. Hospital total in Blood ID Date Data Source [id number] 12/07/2018 08:40:00 AM [facility] ADA RECOMMENDATIONS: NON-DIABETES: 4.0-6.0% CONTROLLED DIABETES: 6.0-8.0% UNCONTROLLED DIABETE S: UP TO 20%RECOMMENDED ADA RESULT FOR THERAPY: HEMOGLOBIN A1C RESULT LESS FRANK N 7%.NOTE: METHOD CHANGE EFFECTIVE 11/06/14. Name Value Range Interpretation Description Data Sup porting Code Source(s) Document(s ) Hemoglobin 7.8 % [facility] A1c/Hemoglobin. Hospital total in Blood ID Date Data Source [id number] 12/06/2018 02:05:00 PM [facility] CUT-OFF >= 200 NG/ML. Name Value Range Interpretation Description Data Sup porting Code Source(s) Document(s ) BENZODIAZEPINES NEGATIVE [place] (UR) [facility] ID Date Data Source [id number] 12/06/2018 02:05:00 PM [facility] CUT-OFF >= 200 NG/ML. Name Value Range Interpretation Description Data Sup porting Code Source(s) Document(s ) BARBITURATES NEGATIVE [facility] (UR) Hospital ID Date Data Source [id number] 12/06/2018 02:05:00 PM EDT [facility] CUT-OFF >= 1000 NG/ML. Name Value Range Interpretation Description Data Sup porting Code Source(s) Document(s ) AMPHETAMINES NEGATIVE [facility] (UR) Hospital ID Date Data Source [id number] 12/06/2018 02:05:00 PM EDT [facility] CUT-OFF >= 25 NG/ML.THE FINDINGS OF THE [...] rce(s) Supporting Document(s ) PCP (UR) NEGATIVE [facility] Hospital ID Date Data Source [id number] 12/06/2018 02:05:00 PM EDT [facility] CUT-OFF >= 50 NG/ML. Name Value Range Interpretation Code Description Data Jackie rce(s) Supporting Document(s ) THC (UR) NEGATIVE [facility] Hospital ID Date Data Source [id number] 12/06/2018 02:05:00 PM EDT [facility] CUT-OFF >= 300 NG/ML. Name Value Range Interpretation Description Data Sup porting Code Source(s) Document(s ) OPIATES (UR) POSITIVE [facility] Hospital ID Date Data Source [id number] 12/06/2018 02:05:00 PM EDT [facility] CUT-OFF >= 300 NG/ML. Name Value Range Interpretation Description Data Sup porting Code Source(s) Document(s ) COCAINE (UR) NEGATIVE [facility] Hospital ID Date Data Source [id number] 12/06/2018 02:05:00 PM EDT [facility] CUT-OFF >= 200 NG/ML. Name Value Range Interpretation Description Data Sup porting Code Source(s) Document(s ) BENZODIAZEPINES NEGATIVE [place] (UR) [facility] ID Date Data Source [id number] 12/06/2018 02:05:00 PM EDT [facility] CUT-OFF >= 200 NG/ML. Name Value Range Interpretation Description Data Sup porting Code Source(s) Document(s ) BARBITURATES NEGATIVE [facility] (UR) Hospital ID Date Data Source [id number] 12/06/2018 02:05:00 PM EDT [facility] CUT-OFF >= 1000 NG/ML. Name Value Range Interpretation Description Data Sup porting Code Source(s) Document(s ) AMPHETAMINES NEGATIVE [facility] (UR) Hospital ID Date Data Source [id number] 12/06/2018 02:05:00 PM EDT [facility] CUT-OFF >= 25 NG/ML.THE FINDINGS OF THE [...] rce(s) Supporting Document(s ) PCP (UR) NEGATIVE [facility] Hospital ID Date Data Source [id number] 12/06/2018 02:05:00 PM EDT [facility] CUT-OFF >= 50 NG/ML. Name Value Range Interpretation Code Description Data Jackie rce(s) Supporting Document(s ) THC (UR) NEGATIVE [facility] Hospital ID Date Data Source [id number] 12/06/2018 02:05:00 PM EDT [facility] CUT-OFF >= 300 NG/ML. Name Value Range Interpretation Description Data Sup porting Code Source(s) Document(s ) OPIATES (UR) POSITIVE [facility] Hospital ID Date Data Source [id number] 12/06/2018 02:05:00 PM [facility] CUT-OFF >= 300 NG/ML. Name Value Range Interpretation Description Data Sup porting Code Source(s) Document(s ) COCAINE (UR) NEGATIVE [facility] ID Date Data Source [id number] 12/06/2018 01:57:00 PM EDT [facility] Name Value Range Interpretation Description Data Sup porting Code Source(s) Document(s ) Erythrocytes 3-5 [facility] [#/area] in /[HPF] Hospital Urine sediment by Microscopy high power field ID Date Data Source [id number] 12/06/2018 [facility]:57[facility] Interpretation Description Data Sup porting Code Source(s) Document(s ) Leukocytes 0-3 [facility] [#/area] in /[HPF] Hospital Urine sediment by Microscopy high power field ID Date Data Source [id number] 12/06/2018 [facility]57[facility] Interpretation Description Data Sup porting Code Source(s) Document(s ) Leukocyte NEGATIVE [facility] Hospital [Presence] in Urine by Test strip ID Date Data Source [id number] 12/06/2018 [facility]57[facility] Value Range Interpretation Description Data Sup porting Code Source(s) Document(s ) URINE NEGATIVE [facility] Hospital ID Date Data Source [id number] 12/06/2018 [facility]:57[facility] Value Range Interpretation Description Data Sup porting Code Source(s) Document(s ) Erythrocytes TRACE [facility] [#/volume] in Hospital Urine by Test strip ID Date Data Source [id number] 12/06/2018 01:57:00 PM EDT [facility] Name Value Range Interpretation Code Description Data Jackie rce(s) Supporting Document(s ) Bilirubin. NEGATIVE [facility] total Hospital [Presence] in Urine by Test strip ID Date Data Source [id number] 12/06/2018 01:57:00 PM EDT [facility] Name Value Range Interpretation Description Data Sup porting Code Source(s) Document(s ) Urobilinogen 0.2 [facility] [Units/volume] mg/dL Hospital in Urine by Test strip ID Date Data Source [id number] 12/06/2018 01:57:00 PM EDT [facility] Name Value Range Interpretation Code Description Data Jackie rce(s) Supporting Document(s ) Ketones TRACE [facility] [Mass/volume Hospital ] in Urine by Test strip ID Date Data Source [id number] 12/06/2018 01:57:00 PM EDT [facility] Name Value Range Interpretation Code Description Data Jackie rce(s) Supporting Document(s ) Glucose 2+ [facility] [Mass/volume Hospital ] in Urine by Test strip ID Date Data Source [id number] 12/06/2018 01:57:00 PM EDT [facility] Name Value Range Interpretation Code Description Data Jackie rce(s) Supporting Document(s ) Protein 3+ [facility] [Presence] Hospital in Urine by Test strip ID Date Data Source [id number] 12/06/2018 01:57:00 PM EDT [facility] Name Value Range Interpretation Code Description Data Jackie rce(s) Supporting Document(s ) pH of Urine 7.0 [facility] by Test Hospital strip ID Date Data Source [id number] 12/06/2018 01:57:00 PM EDT [facility] Name Value Range Interpretation Code Description Data Supporting Source(s) Document(s ) Specific 1.022 [facility] gravity of Hospital Urine by Test strip ID Date Data Source [id number] 12/06/2018 01:57:00 PM EDT [facility] Name Value Range Interpretation Description Data Sup porting Code Source(s) Document(s ) Clarity in Urine CLEAR [facility] by Refractometry Hospital automated ID Date Data Source [id number] 12/06/2018 01:57:00 PM EDT [facility] Name Value Range Interpretation Code Description Data Jackie rce(s) Supporting Document(s ) Color of YELLOW [facility] Urine Hospital ID Date Data Source [id number] 12/06/2018 09:24:00 AM EDT [facility] Value Range Interpretation Description Data Sup porting Code Source(s) Document(s ) Lactate 0.8 [facility] [Moles/volum mmol/L Hospital e] in Serum or Plasma ID Date Data Source [id number] 12/06/2018 07:51:00 AM EDT [facility] Name Value Range Interpretation Code Description Data Jackie rce(s) Supporting Document(s ) Lipase 15 U/L [facility] [Enzymatic Hospital activity/vo lume] in Serum or Plasma ID Date Data Source [id number] 12/06/2018 07:51:00 AM EDT [facility] Name Value Range Interpretation Code Description Data Jackie rce(s) Supporting Document(s ) Cells 100 [facility] Counted Hospital Total [#] in Blood ID Date Data Source [id number] 12/06/2018 07:51:00 AM EDT [facility] Name Value Range Interpretation Code Description Data Supporting Source(s) Document(s ) PLATELET NORMAL [facility] COMMENT Hospital ID Date Data Source [id number] 12/06/2018 07:51:00 AM EDT [facility] Name Value Range Interpretation Code Description Data Jackie rce(s) Supporting Document(s ) HYPOCHROMIA 2+ [facility] Hospital ID Date Data Source [id number] 12/06/2018 07:51:00 AM EDT [facility] Name Value Range Interpretation Code Description Data Jackie rce(s) Supporting Document(s ) MICROCYTOSIS 1+ [facility] ID Date Data Source [id number] 12/06/2018 07:51:00 AM EDT [facility] Name Value Range Interpretation Code Description Data Jackie rce(s) Supporting Document(s ) ANISOCYTOSIS 2+ [facility] ID Date Data Source [id number] 12/06/2018 07:51:00 AM EDT [facility] Value Range Interpretation Description Data Sup porting Code Source(s) Document(s ) Monocytes 0.28 [facility] [#/volume] in 10*3/uL Hospital Blood by Manual count ID Date Data Source [id number] 12/06/2018 07:51:00 AM EDT [facility] Value Range Interpretation Description Data Sup porting Code Source(s) Document(s ) Lymphocytes 1.11 [facility] [#/volume] in 10*3/uL Hospital Blood by Manual count ID Date Data Source [id number] 12/06/2018 07:51:00 AM EDT [facility] Name Value Range Interpretation Description Data Sup porting Code Source(s) Document(s ) Neutrophils 12.51 [facility] [#/volume] in 10*3/uL Hospital Blood by Manual count ID Date Data Source [id number] 12/06/2018 07:51:00 AM EDT [facility] Name Value Range Interpretation Description Data Sup porting Code Source(s) Document(s ) Monocytes/100 2 % Raymond leukocytes in Hospital Blood by Manual count ID Date Data Source [id number] 12/06/2018 07:51:00 AM EDT [facility] Name Value Range Interpretation Description Data Sup porting Code Source(s) Document(s ) Lymphocytes/100 8 % [facility] leukocytes in Hospital Blood by Manual count ID Date Data Source [id number] 12/06/2018 07:51:00 AM EDT [facility] Name Value Range Interpretation Description Data Sup porting Code Source(s) Document(s ) Neutrophils/100 90 % Raymond leukocytes in Hospital Blood by Manual count ID Date Data Source [id number] 12/06/2018 05:47:00 AM EDT [facility] Name Value Range Interpretation Description Data Sup porting Code Source(s) Document(s ) Methicillin PATIENT IS White resistant PRESUMED [place] [facility] POSITIVE FOR Hospital aureus (MRSA) MRSA DNA [Presence] COLONIZATION in Unspecified specimen by Probe and target amplification method Methicillin MRSA TARGET White resistant DNA DETECTED [place] [facility] aureus (MRSA) DNA [Presence] in Unspecified specimen by Probe and target amplification method ID Date Data Source [id number] [facility] Interpretation Description Data Sup porting Code Source(s) Document(s ) Methicillin MRSA TARGET White resistant DNA DETECTED [place] [facility] aureus (MRSA) DNA [Presence] in Unspecified specimen by Probe and target amplification method Methicillin PATIENT IS White resistant PRESUMED [place] [facility] POSITIVE FOR Hospital aureus (MRSA) MRSA DNA [Presence] COLONIZATION in Unspecified specimen by Probe and target amplification method ID Date Data Source [id number] 12/06/2018 05:04:00 AM [facility] THERAPEUTIC RANGES:UNFRACTIONATED HEPARI N THERAPY: 60-90 SECONDSARGATROBAN THERAPY: 49-99 SECONDS Name Value Range Interpretation Description Data Sup porting Code Source(s) Document(s ) aPTT in 31.7 s Raymond Platelet poor Hospital plasma by Coagulation assay ID Date Data Source [id number] 12/06/2018 05:04:00 AM EDT [facility] THERAPEUTIC RANGE FOR STANDARD ORALANTIC OAGULANT THERAPY: 2.0-3.0THERAPEUTIC RANGE FOR HIGH DOSE ORALANTICOAGULANT THERAPY (MECHANICAL HEARTVALVE REPLACEMENT): 2.5-3.5 Name Value Range Interpretation Description Data Sup porting Code Source(s) Document(s ) INR in Platelet 1.3 [facility] plasma by Hospital Coagulation assay ID Date Data Source [id number] 12/06/2018 05:04:00 AM EDT [facility] HEMOLYZED SPECIMEN- HEMOLYSIS CAUSES ELLEN RTENING OF PT AND APTT RESULTS Name Value Range Interpretation Description Data Sup porting Code Source(s) Document(s ) PT panel - 14.4 s Raymond Platelet poor [facility] plasma by Coagulation assay Procedure Social History Code Duration Value Status Description Data Source(s ) Smoking 06/23/2019 Never smoked completed Never smoked [place] [facility] - 12:46:08 AM EDT tobacco tobacco (finding) [facility] (finding[facility] Smoking 06/23/2019 Never smoked completed Never smoked [place] [facility] - 12:46:08 AM EDT tobacco tobacco (finding) [facility] (finding) [facility] Smoking 06/23/2019 Never smoked completed Never smoked [place] [facility] - 12:46:08 AM EDT tobacco tobacco (finding) [facility] (finding) [facility] Smoking 06/04/2019 Never smoked completed Never smoked [place] [facility] - 08:41:21 PM EST tobacco tobacco (finding) [facility] (finding) [facility] Smoking 06/04/2019 Never smoked completed Never smoked [place] [facility] - 08:41:21 PM EST tobacco tobacco (finding) [facility] (finding) [facility] Smoking 06/04/2019 Never smoked completed Never smoked [place] [facility] - 08:41:21 PM EST tobacco tobacco (finding) [facility] (finding) [facility] Smoking 06/04/2019 Never smoked completed Never smoked [place] [facility] - 08:41:21 PM EST tobacco tobacco (finding) [facility] (finding) Center Smoking 06/04/2019 Never smoked completed Never smoked [place] [facility] - 08:41:21 PM EST tobacco tobacco (finding) [facility] (finding) Center Smoking 06/04/2019 Never smoked completed Never smoked Dannielle villatoro - 08:41:21 PM EST tobacco tobacco (finding) [facility] (finding) Center Smoking 06/04/2019 Never smoked [...] oximetry Body surface 2.3 m2 2.3 m2 [facility] area Derived Health Syste m from formula Body mass index 27.7 kg/m2 27.7 [facility] Syst em Body weight 103.41 kg 103.41 kg [facility] Body height 193.04 cm 193.04 cm [facility] Glucose 244 mg/dL 65-100 Above high normal 244 mg/dL [place] [Moles/volume] mg/dL Health - in Capillary [place] blood by [facility] Glucometer Center Oxygen 98 % 94-100 % Normal (applies to 98 % [place] saturation in non-numeric Health - Blood results) [place] Postductal by [facility] Pulse oximetry Center Diastolic blood 68 mm[Hg] 60-90 Normal (applies to 68 mm[Hg] [facility] pressure mmHg non-numeric Health - results) [facility] Systolic blood 120 mm[Hg] 90-130 Normal (applies to 120 mm[Hg] [place] pressure mmHg non-numeric Health - results) [facility] Vital Signs Dr. Cl Spicer Reported To [facility] Oxygen therapy [place] [Minimum Data Health - Set] [facility] Mean blood 133 mm[Hg] 133 mm[Hg] [place] pressure by [facility] Oxygen 99 % 94-100 % Normal (applies to 99 % [place] saturation in non-numeric Health - Blood results) [place] Postductal by [facility] Pulse oximetry Center Diastolic blood 106 mm[Hg] 60-90 106 mm[Hg] [place] pressure mmHg [facility] Systolic blood 186 mm[Hg] 90-130 186 mm[Hg] [place] pressure mmHg [facility] Respiratory 18 br/min 14-20 Normal (applies to 18 br/min [place] rate br/min non-numeric Health - results) [facility] Heart rate 98 bpm 60-100 Normal (applies to 98 bpm [place] bpm non-numeric Health - results) [facility] Oral 97.1 [degF] 96.4-99.1 Normal (applies to 97.1 [degF] Nuva nce temperature DegF non-numeric Health - results) [facility] Glucose 178 mg/dL 65-100 Above high normal 178 mg/dL [place] [Moles/volume] mg/dL Health - in Capillary [place] blood by [facility] [place] Glucose 178 mg/dL 65-100 Above high normal 178 mg/dL [place] [Moles/volume] mg/dL Health - in Capillary [place] blood by [facility] Glucom[facility] [place] Respiratory 18 br/min 14-20 Normal (applies to 18 br/min [place] rate br/min non-numeric Health - results) [facility] Oral 98.2 [degF] 96.4-99.1 Normal (applies to 98.2 [degF] Nuva nce temperature DegF non-numeric Health - results) [facility] Oxygen 99 % 94-100 % Normal (applies to 99 % [place] saturation in non-numeric Health - Blood results) [place] Postductal by Hospital Pulse oximetry Center Heart rate 97 bpm 60-100 Normal (applies to 97 bpm [place] bpm non-numeric Health - results) [facility] Mean blood 123 mm[Hg] 123 mm[Hg] [place] pressure by [facility] Diastolic blood 94 mm[Hg] 60-90 94 mm[Hg] [place] pressure mmHg [facility] Systolic blood 180 mm[Hg] 90-130 Above high normal 180 mm[Hg] N[place] an[place] pressure mmHg [facility] Mean blood 125 mm[Hg] 125 mm[Hg] [place] pressure by [facility] Oxygen therapy [place] [Minimum Data Health - Set] [facility] Blood pressure [place] measurement Health - [facility] Respiratory 18 br/min 14-20 Normal (applies to 18 br/min [place] rate br/min non-numeric Health - results) [facility] Heart rate 103 bpm 60-100 Above high normal 103 bpm [place] bpm [facility] Oral 98.7 [degF] 96.4-99.1 Normal (applies to 98.7 [degF] Nuva nce temperature DegF non-numeric Health - results) [facility] Oxygen Therapy [place] Activity [facility] Oxygen therapy [place] [Minimum Data Health - Set] [facility] Body mass index 27.38 kg/m2 27.38 kg/m2 [place] (BMI) [Ratio] [facility] Body weight 102 kg 102 kg [place] Measured [facility] Body height 193 cm 193 cm [place] [facility] Body mass index 27.38 kg/m2 27.38 kg/m2 [place] (BMI) [Ratio] [facility] Glucose 279 mg/dL 65-100 Above high normal 279 mg/dL [place] [Moles/volume] mg/dL Health - in Capillary [place] blood by [facility] Oxygen therapy [place] [Minimum Data Health - Set] [facility] Mean blood 110 mm[Hg] 110 mm[Hg] [place] pressure by Health - Noninvasive [facility] Oxygen therapy [place] [Minimum Data Health - Set] [facility] Blood pressure [place] measurement Health - site [facility] Diastolic blood 83 mm[Hg] 60-90 Normal (applies to 83 mm[Hg] N [facility]vance pressure mmHg non-numeric Health - results) [facility] Systolic blood 165 mm[Hg] 90-130 Above high normal 165 mm[Hg] [place] pressure mmHg Health - [facility] Respiratory 18 br/min 14-20 Normal (applies to 18 br/min [place] rate br/min non-numeric Health - results) [facility] Heart rate 64 bpm 60-100 Normal (applies to 64 bpm [place] e bpm non-numeric Health - results) [facility] Oral 98.6 [degF] 96.4-99.1 Normal (applies to 98.6 [degF] Nuva nce temperature DegF non-numeric Health - results) [facility] Glucose 130 mg/dL 65-100 Above high normal 130 mg/dL [place] [Moles/volume] mg/dL Health - in Capillary [place] blood by [facility] Glucometer [place] Glucose 130 mg/dL 65-100 Above high normal 130 mg/dL [place] [Moles/volume] mg/dL Health - in Capillary [place] blood by [facility] Glucom[facility] [place] Respiratory 18 br/min 14-20 Normal (applies to 18 br/min [place] rate br/min non-numeric Health - results) [facility] Oral 98.2 [degF] 96.4-99.1 Normal (applies to 98.2 [degF] Nuva nce temperature DegF non-numeric Health - results) [facility] Oxygen 99 % 94-100 % Normal (applies to 99 % [place] saturation in non-numeric Health - Blood results) [place] Postductal by [facility] Pulse oximetry Center Heart rate 60 bpm 60-100 Normal (applies to 60 bpm [place] e bpm non-numeric Health - results) [facility] Mean blood 92 mm[Hg] 92 mm[Hg] [place] pressure by [facility] Noninvasive [facility] Diastolic blood 75 mm[Hg] 60-90 Normal (applies to 75 mm[Hg] N [facility] pressure mmHg non-numeric Health - results) [facility] Systolic blood 125 mm[Hg] 90-130 Normal (applies to 125 mm[Hg] Nu lyons pressure mmHg non-numeric Health - results) [facility] Blood pressure [place] measurement [facility] Oxygen therapy [place] [Minimum Data Health - Set] [facility] Diastolic blood 84 mm[Hg] 60-90 Normal (applies to 84 mm[Hg] N [facility] pressure mmHg non-numeric Health - results) [facility] Systolic blood 154 mm[Hg] 90-130 Above high normal 154 mm[Hg] N[place] pressure mmHg [facility] Mean blood 92 mm[Hg] 92 mm[Hg] [place] pressure by [facility] Oxygen 99 % 94-100 % Normal (applies to 99 % [place] saturation in non-numeric Health - Blood results) [place] Postductal by [facility] Pulse oximetry Center Respiratory 18 br/min 14-20 Normal (applies to 18 br/min [place] ce rate br/min non-numeric Health - results) [facility] Heart rate 74 bpm 60-100 Normal (applies to 74 bpm [place] bpm non-numeric Health - results) [facility] Oral 99.3 [degF] 96.4-99.1 Above high normal 99.3 [degF] [place] ce temperature DegF [facility] Oxygen 98 % 94-100 % Normal (applies to 98 % [place] saturation in non-numeric Health - Blood results) [place] Postductal by [facility] Pulse oximetry Center Vital Signs Dr. Haile. Dr. Haile. Dannielle Reported To Additional dose Additional dose Hea lth - of Hydrazaline of Hydrazaline [place] 25mg po ordered 25mg po ordered [facility] Blood pressure [place] measurement [facility] Vital Signs PA [place] ce Reported To [facility] Body mass index 27.79 kg/m2 27.79 kg/m2 Dannielle (BMI) [Ratio] [facility] Daily Weight 103.5 kg 103.5 kg [facility] Body height 193 cm 193 cm [facility] Heart rate 105 bpm 60-100 Above high normal 105 bpm [place] Peripheral bpm Health - artery by [facility] Heart rate 100 bpm 60-100 Normal (applies to 100 bpm [place] Peripheral bpm non-numeric Health - artery by results) [facility] Heart rate 96 bpm 60-100 Normal (applies to 96 bpm [place] Peripheral bpm non-numeric Health - artery by results) [facility] Body weight 103.5 kg 103.5 kg [place] Measured [facility] Body height 193 cm 193 cm [facility] Inhaled oxygen 2 L/min 2 L/min [facility] flow rate [facility] Inhaled oxygen 2 L/min 2 L/min [facility] flow rate [facility] Inhaled oxygen 2 L/min 2 L/min [facility] flow rate [facility] Oxygen Therapy [place] Activity [facility] Body mass index 27.33 kg/m2 27.33 kg/m2 [place] (BMI) [Ratio] [facility] Body weight 101.82 kg 101.82 kg [place] Measured [facility] Body height 193 cm 193 cm [facility] Body mass index 27.33 kg/m2 27.33 kg/m2 [place] (BMI) [Ratio] [facility] Diastolic blood 92 mm[Hg] 92 mm[Hg] [facility] pressure Hospital Systolic blood 202 mm[Hg] 202 mm[Hg] [facility] pressure Hospital Respiratory 18 /min 18 /min [facility] Hospital Heart rate 107 /min 107 /min [facility] Body 37.27678 Fide 37.25460 Fide [facility] temperature Hospital Body 99.1 [degF] 99.1 [degF] [facility] Body mass index 28.0 kg/m2 28.0 kg/m2 [facility] (BMI) [Ratio] Hospital Body weight 224.47 [lb_av] 224.47 [lb_av] [facility] Body 37 Fide 0 - 99.9 Normal (applies to 37 Fide [place] temperature non-numeric Health Syste m results) Body 98.7 [degF] 0 - 200 Normal (applies to 98.7 [degF] [facility]fiore temperature non-numeric Health Syste m results) [...] results) Body surface 2.2 m2 2.2 m2 [facility] area Derived Health Syste m from formula Body mass index 27.4 kg/m2 27.4 kg/m2 [facility] [Ratio[facility] Health Syst em Body weight 99.79 kg 99.79 kg [facility] Body height 190.5 cm 190.5 cm [facility] Body surface 2.3 m2 2.3 m2 [facility] area Derived Health Syste m from formula Body mass index 28.4 kg/m2 28.4 kg/m2 [facility] [Ratio[facility] Health Syst em Body weight 103.41 kg 103.41 kg [facility] Body height 190.5 cm 190.5 cm [facility] Body 97.8 [degF] 0 - 200 Normal (applies to 97.8 [degF] [facility] temperature non-numeric Health Syste m results) Body [...] iore non-numeric Health System results) Body 36.5 Fdie 0 - 99.9 Normal (applies to 36.5 [...] - 999 Normal (applies to 98 % [facility] iore saturation in non-numeric Health Sys [facility] Arterial blood results) by Pulse oximetry Respiratory 17 0 - 999 Normal (applies to 17 [place] janny rate non-numeric Health System results) Heart rate 88 0 - 999 Normal (applies to 88 [place] non-numeric Health System results) Body surface 2.3 m2 2.3 m2 [facility] area Derived Health Syste m from formula Body mass index 28.4 kg/m2 28.4 kg/m2 [facility] ([facility] [Ratio[facility] Health Syst em Body weight 103.41 kg 103.41 kg [facility] Body height 190.5 cm 190.5 cm [facility] Body surface 2.3 m2 2.3 m2 [facility] area Derived Health Syste m from formula Body mass index 28.2 kg/m2 28.2 kg/m2 [facility] ([facility] [Ratio] Health Syst em Body weight 102.51 kg 102.51 kg [facility] Body height 190.5 cm 190.5 cm [facility] Body 98 [degF] 0 - 200 [...] results) Diastolic blood 82 mm[Hg] 82 mm[Hg] [facility] pressure Hospital Systolic blood 145 mm[Hg] 145 mm[Hg] [facility] pressure Hospital Respiratory 19 /min 19 /min [facility] Heart rate 95 /min 95 /min [facility] Body 36.43610 Fide 36.70080 Fide [facility] Body 98.1 [degF] 98.1 [degF] [facility] Body mass index 27.0 kg/m2 27.0 kg/m2 [facility] (BMI) [Ratio] Hospital Body weight 221.45 [lb_av] 221.45 [lb_av] [facility] Diastolic blood 76 mm[Hg] 76 mm[Hg] [facility] pressure [facility] Systolic blood 125 mm[Hg] 125 mm[Hg] [facility] pressure [facility] Respiratory 18 /min 18 /min [facility] Heart rate 83 /min 83 /min [facility] Body 36.81757 Fide 36.09515 Fide [facility] Body 97.6 [degF] 97.6 [degF] [facility] Body mass index 28.0 kg/m2 28.0 kg/m2 [facility] ins (BMI) [Ratio] Hospital Body weight 220.46 [lb_av] 220.46 [lb_av] [facility] Diastolic blood 80 mm[Hg] 80 mm[Hg] [facility] pressure Hospital Systolic blood 149 mm[Hg] 149 mm[Hg] [facility] pressure Hospital Respiratory 17 /min 17 /min [facility] Heart rate 91 /min 91 /min [facility] Body 36.16688 Fide 36.15683 Fide [facility] Hospital Body 98.2 [degF] 98.2 [degF] [facility] Body mass index 29.0 kg/m2 29.0 kg/m2 [facility] ins (BMI) [Ratio] Hospital Body weight 229.28 [lb_av] 229.28 [lb_av] [facility] Diastolic blood 80 mm[Hg] 80 mm[Hg] [facility] ins pressure Hospital Systolic blood 138 mm[Hg] 138 mm[Hg] [facility] ns pressure Hospital Respiratory 18 /min 18 /min [facility] rate Hospital Heart rate 100 /min 100 /min [facility] Body 36.22022 Fide 36.57573 Fide [facility] ns temperature Hospital Body 97.8 [degF] 97.8 [degF] [facility] Body mass index 29.0 kg/m2 29.0 kg/m2 [facility] ins (BMI) [Ratio] Hospital Body weight 226.48 [lb_av] 226.48 [lb_av] [facility] Patient Treatment Plan of Care Planned Activity Planned Date Details Description Data Source (s) Simethicone 80 MG Chewable 06/25/2019 [facility] - Tablet 09:57:00 AM EDT [facility] Acetaminophen 325 MG Oral 06/25/2019 [facility] - Tablet 09:57:00 [facility]in[facility] 20 MG Oral 06/10/2019 [facility] e Health - Tablet 09:09:00 AM EST [facility] Metoclopramide 10 MG Oral 06/10/2019 [facility] Health - Tablet 09:09:00 AM EST [facility] Hydralazine Hydrochloride 06/10/2019 [facility] Health - 25 MG Oral Tablet 09:09:00 AM EST [facility] carvedilol 6.25 MG Oral 06/10/2019 [place] [facility] Health - Tablet 09:09:00 AM EST [facility] Center metformin 06/05/2019 [place] [facility] - 01:15:00 AM EST [facility] Hydroxyzine Hydrochloride 03/12/2019 [facility] 50 MG Oral Tablet 05:14:09 AM EST System Lorazepam 1 MG Oral Tablet 03/08/2019 [facility] [Ativan] 08:37:45 PM EST System Lorazepam 1 MG Oral Tablet 02/24/2019 [facility] [Ativan] 02:02:37 AM EST System
--- NOTE | 2020-02-03 16:13 | EKG ---
Test Reason : Blood Pressure : / mmHG Vent. Rate : 102 BPM Atrial Rate : 102 BPM P-R Int : 194 ms QRS Dur : 086 ms QT Int : 348 ms P-R-T Axes : 063 006 047 degrees QTc Int : 453 ms SINUS TACHYCARDIA POSSIBLE LEFT ATRIAL ENLARGEMENT BORDERLINE ECG Confirmed by MD MARY ANN, KG ([id number]) on 02/03/2020 4:13:09 PM Referred By: Confirmed By:KG REESE MD
--- NOTE | 2020-02-03 16:29 | HP ---
Admitting History and Physical - Primary Care Physician PCP: Rosalind Giles - Admission Chief Complaint: Intractable N/CV. Abdominal pain History of Present Illness: This is a 54 y/o male with a significant past medical history of NIDDM, HTN, Gastroparesis, Osteomyelitis s/p right BKA (01/2019), recent admissions for Gastroparesis 11/05-11/11, 12/03-12/05, 01/06-01/08, 01/19-01/23 Who presents to the ED for coffee ground emesis and abdominal pain. Patient reports having multiple episodes of bile and dark blood in the emesis and associated abdominal pain. He reports having similar episodes in the past. The patient denies taking any opiates for pain control. Patient denies fever, chills, cough, SOB, WHITLOCK, dizziness, CP, palpitations, diarrhea, constipation, dysuria. Patient denies recent sick contacts or travel. I was able to obtain last EGD report from [facility]: Gastrointestinal Endoscopy and Bronchoscopy Suites Patient Name: Daniele Laird Procedure Date: 10/13/2019 8:03 AM Date of : 1965 Attending MD: Anaya Daniel MD Instrument Name: [id number] EGD Procedure: Upper GI endoscopy Indications: Hematemesis Providers: Anaya Daniel MD, Sima Okeefe RN, Mila Oakley, Power Hammer Operator Medicines: Monitored Anesthesia Care Complication: No immediate complications. Procedure: After obtaining informed consent, the endoscope was passed under direct vision. Throughout the procedure, the patient's blood pressure, pulse, and oxygen saturations were monitored continuously. The Endoscope was introduced through the mouth, and advanced to the second part of duodenum. The upper GI endoscopy was accomplished without difficulty. The patient tolerated the procedure well. Findings: The examined esophagus was normal. Diffuse moderately erythematous mucosa without bleeding was found in the gastric antrum as well as fundus. Biopsies were taken with a cold forceps for histology. Estimated blood loss: none. The examined duodenum was normal. Total Procedure Duration: 0 hours 3 minutes 41 seconds Impression: - Normal esophagus. - Erythematous mucosa in the antrum. Biopsied. No puja jones tear or ulcer noted on this exam. - Normal examined duodenum. Recommendation: - [facility]. - Advance diet as tolerated. - Continue present medications. - outpt colonoscopy - Await pathology results. History Source: Patient Limitations to Obtaining History: No Limitations - Past Medical History Cardiovascular: Yes: HTN Gastrointestinal: Yes: Constipation, Other (Recurring episodes of vomiting, often associated with flecks of blood and treated with Reglan) Hepatobiliary: Yes: Other (gastroparesis) Infectious Disease: Yes: Other (RLE osteomyelitis ) Endocrine: Yes: Diabetes Mellitus - Past Surgical History Past Surgical History: Yes: Amputation (right BKA), Upper Endoscopy - Smoking History Smoking history: Current some day smoker Have you smoked in the past 12 months: No - Alcohol/Substance Use Hx Alcohol Use: No History of Substance Use: reports: None - Social History ADL: Independent 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 [employer] History of Recent Travel: No Home Medications - Allergies Allergies/Adverse Reactions: Allergies Allergy/AdvReac Type Severity Reaction Status Date / Time sesame seed Allergy Verified 02/03/20 02:30 hydromorphone [From Dilaudid] AdvReac Severe Difficulty Verified 02/03/20 07:25 Breathing javi seed Allergy Uncoded 02/03/20 02:30 - Home Medications Home Medications: Ambulatory Orders Acetaminophen [Tylenol .Regular Strength -] 650 mg PO Q4H PRN #90 tablet 12/06/19 Metoclopramide HCl [Reglan -] 5 mg PO TIDAC PRN #90 tablet 01/09/20 Metformin HCl [Glucophage] 500 mg PO BIDAC 02/03/20 Family Medical History Family Hx Cancer: Mother (breast cancer) Review of Systems - Review of Systems Constitutional: reports: No Symptoms Eyes: reports: No Symptoms HENT: reports: No Symptoms Neck: reports: No Symptoms Cardiovascular: reports: No Symptoms Respiratory: reports: No Symptoms Gastrointestinal: reports: Abdominal Pain, Nausea, Vomiting Genitourinary: reports: No Symptoms Breasts: reports: No Symptoms Reported Musculoskeletal: reports: No Symptoms Integumentary: reports: No Symptoms Neurological: reports: No Symptoms Endocrine: reports: No Symptoms Hematology/Lymphatic: reports: No Symptoms Psychiatric: reports: No Symptoms Physical Examination Vital Signs: Vital Signs Temperature 98.7 F 02/03/20 15:48 Pulse Rate 105 H 02/03/20 15:48 Respiratory Rate 19 02/03/20 15:48 Blood Pressure 163/95 02/03/20 15:48 O2 Sat by Pulse Oximetry (%) 100 02/03/20 15:48 Constitutional: Yes: Well Nourished, No Distress, Calm Cardiovascular: Yes: Regular Rate and Rhythm Respiratory: Yes: Regular, CTA Bilaterally Gastrointestinal: Yes: Normal Bowel Sounds, Soft, Tenderness (diffuse) Renal/: Yes: WNL Musculoskeletal: Yes: WNL Extremities: Yes: WNL Edema: No Peripheral Pulses WNL: Yes Neurological: Yes: Alert, Oriented Psychiatric: Yes: Alert, Oriented Labs: CBC, BMP 02/03/20 04:00 02/03/20 04:00 Problem List - Problems (1) Coffee ground emesis Assessment/Plan: -GI consult -Reglan 10 mg IV Q8H -wants to have clear liquids -Zofran PRN Problems reviewed: Yes Code(s): K92.0 - HEMATEMESIS (2) Gastroparesis Problems reviewed: Yes Code(s): K31.84 - GASTROPARESIS (3) Diabetes Assessment/Plan: -Last A1c at 7.3 in 10/26 -recheck A1c -BGM AC HS -ISS -IVF -Diabetic clear liquids Problems reviewed: Yes Code(s): E11.9 - TYPE 2 DIABETES MELLITUS WITHOUT COMPLICATIONS Qualifiers: Diabetes mellitus type: type 2 (4) Cyclic vomiting syndrome Assessment/Plan: -r/o pheochromocytoma -Endocrine consult -Check 24 hr urine for VMA, metanephrine, fract catacholemines, 5 HIAA, VMA + Serum serotonin and chromogranin A. Problems reviewed: Yes Code(s): R11.15 - CYCLICAL VOMITING SYNDROME UNRELATED TO MIGRAINE (5) Pulmonary nodule Assessment/Plan: -CT chest RLL 11 mm nodule -CT chest in 3 months -Pulmonary consult Problems reviewed: Yes Code(s): R91.1 - SOLITARY PULMONARY NODULE Assessment/Plan See problem list
[2020-02-03] MEDS: METOCLOPRAMIDE HCL INJECTION 10 MG/2 ML VIAL IVPUSH SCH (16:43)
--- NOTE | 2020-02-03 16:56 | CON.GI ---
Consult Consult Specialty:: GI Referred by:: Jerry Wood NP Reason for Consultation:: Vomiting - History of Present Illness Chief Complaint: Vomiting History of Present Illness: This is a 54 y/o male with a significant past medical history of NIDDM, HTN, working diagnosis of gastroparesis, Osteomyelitis s/p right BKA (01/2019), r ecent admissions for Gastroparesis 11/05-11/11, 12/03-12/05, 01/06-01/08, 01/19-01/23. Presenting to the ED for coffee ground emesis and abdominal pain. Patient reports having multiple episodes of bile and dark blood in the emesis and associated abdominal pain. Currently he is not vomiting and wants clear liquids. he does states that he has followed up with his chemotherapist and is scheduled for a colonoscopy in February. He has had multiple endoscopies and believes that his last one was 6 months ago at [facility]. He does not want another one performed. CT scan in ER revealed pulmonary nodule, distended urinary bladder, fecal retention. - History Source History Provided By: Patient, Medical Record - Past Medical History Cardio/Vascular: Yes: HTN Gastrointestinal: Yes: Constipation, Other (Recurring episodes of vomiting, often associated with flecks of blood and treated with Reglan) Hepatobiliary: Yes: Other (gastroparesis) Infectious Disease: Yes: Other (RLE osteomyelitis ) Endocrine: Yes: Diabetes Mellitus - Past Surgical History Past Surgical History: Yes: Amputation (right BKA), Upper Endoscopy - Alcohol/Substance Use Hx Alcohol Use: No History of Substance Use: reports: None - Smoking History Smoking history: Current some day smoker Have you smoked in the past 12 months: No - Social History Usual Living Arrangement: With Significant Other ADL: Independent 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 [employer] Place of : [facility] History of Recent Travel: No Home Medications - Allergies Allergies/Adverse Reactions: Allergies Allergy/AdvReac Type Severity Reaction Status Date / Time sesame seed Allergy Verified 02/03/20 02:30 hydromorphone [From Dilaudid] AdvReac Severe Difficulty Verified 02/03/20 07:25 Breathing javi seed Allergy Uncoded 02/03/20 02:30 - Home Medications Home Medications: Ambulatory Orders Sennosides [Senna -] 2 tab PO HS PRN #60 tablet 08/05/20 Acetaminophen [Tylenol .Regular Strength -] 650 mg PO Q4H PRN #90 tablet 12/06/19 Ondansetron [Zofran *Odt*] 4 mg SL Q6H PRN #30 tab 12/06/19 Pantoprazole Sodium [Protonix -] 40 mg PO DAILY #30 tab 12/06/19 Polyethylene Glycol 3350 [Miralax 119 gm Btl -] 17 gm PO TID #1 bottle 12/06/19 Metoclopramide HCl [Reglan -] 5 mg PO TIDAC PRN #90 tablet 01/09/20 Family Medical History Family Hx Cancer: Mother (breast cancer) Review of Systems - Review of Systems Constitutional: denies: Chills Gastrointestinal: reports: Vomiting. denies: Diarrhea, Melena, Rectal Bleeding Physical Exam-GI Vital Signs: Vital Signs Temperature 98.7 F 02/03/20 15:48 Pulse Rate 105 H 02/03/20 15:48 Respiratory Rate 19 02/03/20 15:48 Blood Pressure 163/95 02/03/20 15:48 O2 Sat by Pulse Oximetry (%) 100 02/03/20 15:48 Constitutional: Yes: Calm Eyes: No: Sclera Icterus Cardiovascular: Yes: Tachycardia Respiratory: Yes: CTA Bilaterally Gastrointestinal Inspection: No: Distention ...Auscultate: Yes: Normoactive Bowel Sounds ...Palpate: Yes: Soft. No: Hepatomegaly, Splenomegaly, Tenderness Neurological: Yes: Alert Labs: CBC, BMP 02/03/20 04:00 02/03/20 04:00 INR, PTT INR 0.93 (0.83-1.09) 02/03/20 04:00 Problem List - Problems (1) Coffee ground emesis Assessment/Plan: Suspected gastroparesis. Being followed by his chemotherapist Dr. Joe (saw him 01/30.) Discussed upper endoscopy to exclude upper GI source of his symptoms such as PUD, gastritis, neoplasm. Discussed potential risks of the procedure like but not limited to bleeding, perforation requiring surgery to repair, infection, sedation medication effects all of which could be potentially life threatening. He has declined the procedure at this time and wants to have clear liquids. On clear liquid diet Consider endocrine evaluation for pheochromocytoma as a cause of secondary uncontrolled hypertension and vomiting epsidoes Mr. Laird explained in the past that he also was in contact with a gastroen terologist / motility specialist @ [facility] who advised him to be admitted through the ER. I explained that he would best be served undergoing continued work-up at a tertiary care center / motility center such as [facility]. Protonix 40mg once daily Decrease reglan to 5mg IVPB Q 8 hrs for three doses then as needed Outpatient follow-up with primary chemotherapist Code(s): K92.0 - HEMATEMESIS
[2020-02-03 17:09] VITALS: BMI 27.4
[2020-02-03] MEDS ORDERED: ONDANSETRON 4 MG/2 ML VIAL IVPB PRN (17:09)
[2020-02-03] MEDS: ACETAMINOPHEN 1000 MG/100 ML VIAL (NON FORMULARY) IVPB PRN (18:29)
[2020-02-03 19:17] LABS: EPI CELLS 11 /uL (0-25.1); HYALINE CASTS 2 /uL (0-3.1); PH,URINE 8.5 (5.0-8.0); URINE APPEARANCE CLEAR; URINE BACTERIA 16 /uL (0-1359); URINE BILIRUBIN NEGATIVE (NEGATIVE); URINE COLOR YELLOW; URINE GLUCOSE (UA) TRACE (NEGATIVE); URINE KETONE NEGATIVE (NEGATIVE); URINE LEUK ESTERASE NEGATIVE (NEGATIVE); URINE NITRITE NEGATIVE (NEGATIVE); URINE PROTEIN 3+ (NEGATIVE); URINE RBC 21 /uL (0-23.9); URINE UROBILINOGEN 0.2 mg/dL (0.2-1.0); URINE WBC 3 /uL (0-25.8)
[2020-02-03 20:32] LABS: URINE BARBITURATES NEGATIVE ng/ml (CUTOFF=200)
[2020-02-03 20:33] LABS: METHADONE, UR NEGATIVE ng/ml (CUTOFF=300); OPIATES, URI NEGATIVE ng/ml (CUTOFF=300); PHENCYCLIDINE,URINE NEGATIVE ng/ml (CUTOFF=25); URINE BENZODIAZEPINES NEGATIVE ng/ml (CUTOFF=200)
[2020-02-03 20:38] LABS: COCAINE, UR NEGATIVE ng/ml (CUTOFF=300); URINE AMPHETAMINES NEGATIVE ng/ml (CUTOFF=500)
[2020-02-03] MEDS: D5-NS + 40 MEQ KCL - 40 MEQ/1,000 ML INFUS.BAG IV SCH (21:24)
[2020-02-03] MEDS: SENNOSIDES 8.6MG TABLET (FP) PO SCH (21:25)
[2020-02-03] MEDS: POLYETHYLENE GLYCOL 3350 119 GM BTL PO SCH (21:25)
[2020-02-04] MEDS: ACETAMINOPHEN 1000 MG/100 ML VIAL (NON FORMULARY) IVPB PRN ×2 (00:37→10:16)
[2020-02-04] MEDS: METOCLOPRAMIDE HCL INJECTION 10 MG/2 ML VIAL IVPUSH SCH ×3 (00:38→17:23)
[2020-02-04] MEDS: PANTOPRAZOLE SODIUM 80 MG in SODIUM CHLORIDE 100 ML IVPB SCH (02:42)
[2020-02-04] MEDS ORDERED: LABETALOL HCL 5 MG/1 ML (100MG/20 ML VIAL) IVPB ONE (04:31)
[2020-02-04] MEDS ORDERED: LABETALOL HCL 200 MG TABLET (FP) PO ONE (04:42)
--- NOTE | 2020-02-04 07:22 | PN.GI ---
GI Progress Note Subjective: STILL WITH NAUSEA THIS AM - NO REPORT OF HEMETEMESIS / MELENA / BRBR - Objective Vital Signs: Vital Signs Temperature 98.6 F 02/04/20 06:30 Pulse Rate 91 H 02/04/20 06:30 Respiratory Rate 20 02/04/20 06:30 Blood Pressure 154/99 02/04/20 06:30 O2 Sat by Pulse Oximetry (%) 100 02/04/20 06:30 Constitutional: No Distress, Calm Cardiovascular: Yes: WNL, Regular Rate and Rhythm Respiratory: Yes: WNL, Regular, CTA Bilaterally Gastrointestinal Inspection: Yes: WNL ...Auscultate: Yes: Normoactive Bowel Sounds Extremities: Yes: WNL, Other (PROSTHETIC NOTED) Labs: CBC, BMP 02/03/20 04:00 02/03/20 04:00 INR, PTT INR 0.93 (0.83-1.09) 02/03/20 04:00 Problem List - Problems (1) Coffee ground emesis Assessment/Plan: F/U H/H C/W PPI THERAPY C/W REGLAN Q8 CLEAR LIQUID DIET REFUSED ENDOSCOPIC EVALUATION Code(s): K92.0 - HEMATEMESIS (2) Gastroparesis Code(s): K31.84 - GASTROPARESIS (3) Pulmonary nodule Code(s): R91.1 - SOLITARY PULMONARY NODULE (4) Constipation Code(s): K59.00 - CONSTIPATION, UNSPECIFIED (5) Diabetes Code(s): E11.9 - TYPE 2 DIABETES MELLITUS WITHOUT COMPLICATIONS Qualifiers: Diabetes mellitus type: type 2
[2020-02-04 08:55] LABS: BASO % 0.2 % (0-2.0); EOS % 0.4 % (0-4.5); HEMATOCRIT 29.2 % (35.4-49); HEMOGLOBIN 9.4 GM/dL (11.7-16.9); LYMPH % 22.7 % (8-40); MCH 25.4 pg (25.7-33.7); MCHC 32.1 g/dl (32.0-35.9); MEAN CELL VOLUME 79.1 fl (80-96); MEAN PLT VOLUME 8.6 fl (7.5-11.1); MONO % 8.5 % (3.8-10.2); NEUT % 68.2 % (42.8-82.8); PLATELET COUNT 235 K/MM3 (134-434); RBC 3.69 M/mm3 (4.00-5.60); RDW 15.4 % (11.9-15.9); WHITE BLOOD COUNT 8.8 K/mm3 (4.0-10.0)
[2020-02-04 09:18] LABS: POTASSIUM 4.3 mmol/L (3.5-5.1)
[2020-02-04 09:26] LABS: BLOOD UREA NITROGEN 19.6 mg/dL (7-18); CALCIUM 8.6 mg/dL (8.5-10.1)
[2020-02-04 09:29] LABS: CREATININE 1.9 mg/dL (0.55-1.3)
[2020-02-04 09:31] LABS: BILIRUBIN,TOTAL 0.3 mg/dL (0.2-1)
[2020-02-04 09:48] LABS: TOT PROT 6.4 g/dl (6.4-8.2)
[2020-02-04] MEDS: PANTOPRAZOLE SODIUM 40 MG VIAL IVPUSH SCH (10:08)
[2020-02-04] MEDS: POLYETHYLENE GLYCOL 3350 119 GM BTL PO SCH ×3 (10:08→21:02)
--- NOTE | 2020-02-04 10:48 | PN ---
Progress Note, Physician Chief Complaint: Coffee ground emesis Intractable nausea/vomiting History of Present Illness: This is a 54 y/o male with a significant past medical history of NIDDM, HTN, Gastroparesis, Osteomyelitis s/p right BKA (01/2019), recent admissions for Gastroparesis 11/05-11/11, 12/03-12/05, 01/06-01/08, 01/19-01/23 Who presents to the ED for coffee ground emesis and abdominal pain. Patient reports having multiple episodes of bile and dark blood in the emesis and associated abdominal pain. He reports having similar episodes in the past. The patient denies taking any opiates for pain control. Patient denies fever, chills, cough, SOB, WHITLOCK, dizziness, CP, palpitations, diarrhea, constipation, dysuria. Patient denies recent sick contacts or travel. Last EGD from [facility] as following: Gastrointestinal Endoscopy and Bronchoscopy Suites Patient Name: Daniele Laird Procedure Date: 10/13/2019 8:03 AM Date of : 1965 Attending MD: Anaya Daniel MD Instrument Name: [id number] EGD Procedure: Upper GI endoscopy Indications: Hematemesis Providers: Anaya Daniel MD, Sima Okeefe RN, Mila Oakley, Picture Frames Inspector Medicines: Monitored Anesthesia Care Complication: No immediate complications. Procedure: After obtaining informed consent, the endoscope was passed under direct vision. Throughout the procedure, the patient's blood pressure, pulse, and oxygen saturations were monitored continuously. The Endoscope was introduced through the mouth, and advanced to the second part of duodenum. The upper GI endoscopy was accomplished without difficulty. The patient tolerated the procedure well. Findings: The examined esophagus was normal. Diffuse moderately erythematous mucosa without bleeding was found in the gastric antrum as well as fundus. Biopsies were taken with a cold forceps for histology. Estimated blood loss: none. The examined duodenum was normal. Total Procedure Duration: 0 hours 3 minutes 41 seconds Impression: - Normal esophagus. - Erythematous mucosa in the antrum. Biopsied. No puja jones tear or ulcer noted on this exam. - Normal examined duodenum. Recommendation: - [facility] patient to [facility]. - Advance diet as tolerated. - Continue present medications. - outpt colonoscopy - Await pathology results. Seen by GI last evening with similar plan as previous admission + pheochromocytoma workup. Endocrine was called to evaluate. Vomitted once overnight. H/H noted, which is pt's baseline, WBC normalized - Current Medication List Current Medications: Active Medications Acetaminophen (Ofirmev Injection -) 1,000 mg IVPB Q6H PRN PRN Reason: PAIN Stop: 02/04/20 16:33 Last Admin: 02/04/20 10:16 Dose: 1,000 mg Documented by: Dextrose/Sodium Chloride (Dextrose 5%-Normal Saline+40 Meq Kcl -) 40 meq in 1,000 mls @ 75 mls/hr IV ASDIR [facility] Last Admin: 02/03/20 21:24 Dose: Not Given Documented by: Metoclopramide HCl (Reglan Injection -) 10 mg IVPUSH Q8H [facility] Last Admin: 02/04/20 10:08 Dose: 10 mg Documented by: Ondansetron HCl (Zofran Injection) 8 mg IVPB Q8H PRN PRN Reason: NAUSEA Last Admin: 02/03/20 18:29 Dose: 8 mg Documented by: Pantoprazole Sodium (Protonix Iv) 40 mg IVPUSH DAILY [facility] Last Admin: 02/04/20 10:08 Dose: 40 mg Documented by: Polyethylene Glycol (Miralax (For Daily Use) -) 17 gm PO BID [facility] Last Admin: 02/04/20 10:10 Dose: Not Given Documented by: Senna (Senna -) 2 tab PO HS [facility] Last Admin: 02/03/20 21:25 Dose: Not Given Documented by: Sucralfate (Carafate Oral Suspension -) 1 gm PO QID [facility] - Objective Vital Signs: Vital Signs Temperature 98.6 F 02/04/20 06:30 Pulse Rate 91 H 02/04/20 06:30 Respiratory Rate 20 02/04/20 06:30 Blood Pressure 154/99 02/04/20 06:30 O2 Sat by Pulse Oximetry (%) 100 02/04/20 06:30 Constitutional: Yes: Well Nourished, No Distress, Calm Cardiovascular: Yes: Regular Rate and Rhythm Respiratory: Yes: Regular, CTA Bilaterally Gastrointestinal: Yes: Normal Bowel Sounds, Soft Genitourinary: Yes: WNL Musculoskeletal: Yes: WNL Extremities: Yes: WNL Edema: No Peripheral Pulses WNL: Yes Neurological: Yes: Alert, Oriented Psychiatric: Yes: Alert, Oriented Labs: CBC, BMP 02/04/20 08:00 02/04/20 08:00 INR, PTT INR 0.93 (0.83-1.09) 02/03/20 04:00 Problem List - Problems (1) Coffee ground emesis Assessment/Plan: -GI consult -Reglan 10 mg IV Q8H - clear liquids -Zofran PRN -Last vomiting clear overnight Problems reviewed: Yes Code(s): K92.0 - HEMATEMESIS (2) Gastroparesis Problems reviewed: Yes Code(s): K31.84 - GASTROPARESIS (3) Diabetes Assessment/Plan: -A1c at 6.2 -BGM AC HS -ISS -IVF -Diabetic clear liquids Problems reviewed: Yes Code(s): E11.9 - TYPE 2 DIABETES MELLITUS WITHOUT COMPLICATIONS Qualifiers: Diabetes mellitus type: type 2 (4) Cyclic vomiting syndrome Assessment/Plan: -r/o pheochromocytoma -Endocrine consult -Check 24 hr urine for VMA, metanephrine, fract catacholemines, 5 HIAA, VMA + Serum serotonin and chromogranin A. Problems reviewed: Yes Code(s): R11.15 - CYCLICAL VOMITING SYNDROME UNRELATED TO MIGRAINE (5) Pulmonary nodule Assessment/Plan: -CT chest RLL 11 mm nodule -PET scan outpatient -Pulmonary consult Problems reviewed: Yes Code(s): R91.1 - SOLITARY PULMONARY NODULE Assessment/Plan See problem list
--- NOTE | 2020-02-04 11:41 | PN ---
Progress Note (short form) - Note Progress Note: PULMONARY CONSULTATION DICTATED 02/04/20 IMP RLL NODULE COFFEE GROUND EMESIS GASTROPARESIS S/P R BKA SECONDARY TO OSTEO DM HTN LIZA ELEVATED LACTATE LEVEL PLAN GI W/U OUTPATIENT PET IVF MONITOR LYTES,RENAL FUNCTION,H+H TREND LACTATE DR CHRISTINA Problem List - Problems (1) Coffee ground emesis Code(s): K92.0 - HEMATEMESIS (2) Gastroparesis Code(s): K31.84 - GASTROPARESIS (3) Pulmonary nodule Code(s): R91.1 - SOLITARY PULMONARY NODULE (4) LIZA (acute kidney injury) Code(s): N17.9 - ACUTE KIDNEY FAILURE, UNSPECIFIED (5) Diabetes Code(s): E11.9 - TYPE 2 DIABETES MELLITUS WITHOUT COMPLICATIONS Qualifiers: Diabetes mellitus type: type 2 (6) Diabetic gastroparesis Code(s): 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 (7) Elevated lactic acid level Code(s): R79.89 - OTHER SPECIFIED ABNORMAL FINDINGS OF BLOOD CHEMISTRY (8) HTN (hypertension) Code(s): I10 - ESSENTIAL (PRIMARY) HYPERTENSION (9) Hematemesis Code(s): K92.0 - HEMATEMESIS (10) History of right below knee amputation Code(s): Z89.511 - ACQUIRED ABSENCE OF RIGHT LEG BELOW KNEE (11) Microcytic anemia Code(s): D50.9 - IRON DEFICIENCY ANEMIA, UNSPECIFIED
--- NOTE | 2020-02-04 11:57 | CONSULT ---
Consultation: REQUESTING PROVIDER: Jerry Wood NP CONSULT REQUEST: We have been asked to medically evaluate this patient for LIZA. (Nephrology) HISTORY OF PRESENT ILLNESS: 54 y/o male with a significant past medical history of NIDDM, HTN, Gastroparesis, Osteomyelitis s/p right BKA (01/2019), recent admissions for Gastroparesis 11/05-11/11, 12/03-12/05, 01/06-01/08, 01/19-01/23 presents to the ED for coffee ground emesis and abdominal pain. Pt reported multiple episodes of bile and dark blood emesis +abd pain. Last EGD report (10/13/19) showed normal esophagus, erythematous mucosa in antrum, normal duodenum. Previously followed by Dr. Joe and [facility] Pt was seen by GI; suspected gastroparesis. GI recommends further workup at tertiary care facility/motility center. Nephro was consulted for LIZA. Initial Cr admission was 1.5, increased to 1.9 today. He is currently on D5-NS + KCl @ 75. PMhx: gastroparesis, diabetes mellitus II, osteomyelitis, hypertension PSh: right below the knee amputation (2018), upper endoscopy (2019) Fhx: denies known oncologic family history Mother: hypertension, ?cardiac history Father: denies Social history: denies smoking cigarettes, drinking alcohol or illicit drug use (however noted prior urine toxicology positive for ecstasy, opiates). 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 REVIEW OF SYSTEMS: CONSTITUTIONAL: Absent: fever, chills, diaphoresis, generalized weakness, malaise, loss of appetite, weight change HEENT: Absent: rhinorrhea, nasal congestion, throat pain, throat swelling, difficulty swallowing, mouth swelling, ear pain, eye pain, visual changes CARDIOVASCULAR: Absent: chest pain, syncope, palpitations, irregular heart rate, lightheadedness, peripheral edema RESPIRATORY: Absent: cough, shortness of breath, dyspnea with exertion, orthopnea, wheezing, stridor, hemoptysis GASTROINTESTINAL: Absent: abdominal pain, abdominal distension, nausea, vomiting, diarrhea, constipation, melena, hematochezia GENITOURINARY: Absent: dysuria, frequency, urgency, hesitancy, hematuria, flank pain, genital pain MUSCULOSKELETAL: Absent: myalgia, arthralgia, joint swelling, back pain, neck pain SKIN: Absent: rash, itching, pallor HEMATOLOGIC/IMMUNOLOGIC: Absent: easy bleeding, easy bruising, lymphadenopathy, frequent infections ENDOCRINE: Absent: unexplained weight gain, unexplained weight loss, heat intolerance, cold intolerance NEUROLOGIC: Absent: headache, focal weakness or paresthesias, dizziness, unsteady gait, seizure, mental status changes, bladder or bowel incontinence PSYCHIATRIC: Absent: anxiety, depression, suicidal or homicidal ideation, hallucinations. PHYSICAL EXAMINATION Vital Signs - 24 hr 02/03/20 02/03/20 02/03/20 12:58 15:48 17:03 Temperature 98.2 F 98.7 F 99.2 F Pulse Rate 93 H Pulse Rate [ 113 H 105 H Left Radial] Respiratory 18 19 18 Rate Blood Pressure 162/92 Blood Pressure 166/93 163/95 [Right Arm] O2 Sat by Pulse 100 100 97 Oximetry (%) 02/03/20 02/03/20 02/03/20 17:33 21:00 22:00 Temperature 99.1 F Pulse Rate 101 H Pulse Rate [ Left Radial] Respiratory 20 20 Rate Blood Pressure 147/89 Blood Pressure [Right Arm] O2 Sat by Pulse 97 99 99 Oximetry (%) 02/04/20 02/04/20 06:00 06:30 Temperature 98.6 F 98.6 F Pulse Rate 101 H 91 H Pulse Rate [ Left Radial] Respiratory 20 20 Rate Blood Pressure 178/101 H 154/99 Blood Pressure [Right Arm] O2 Sat by Pulse 98 100 Oximetry (%) GENERAL: AAOx3. NAD. Resting comfortably in bed. HEENT: AT/NC. EOMI. MMM. NECK: Normal range of motion, supple without lymphadenopathy, JVD, or masses. LUNGS: CTA b/l. No wheezes/rales noted. HEART: RRR, normal S1, S2. ABDOMEN: Soft, NT/ND. Normoactive BS. No rebound tenderness or guarding. MUSCULOSKELETAL: Normal range of motion at all joints. No bony deformities or tenderness. No CVA tenderness. EXTREMITIES: R BKA (uses prosthetic). No peripheral edema noted. NEUROLOGICAL: Cranial nerves II-XII intact. Normal speech. SKIN: Warm, dry, normal turgor, no rashes or lesions noted. Laboratory Results - last 24 hr 02/03/20 02/03/20 02/03/20 16:59 18:38 18:38 WBC RBC Hgb Hct MCV MCH MCHC RDW Plt Count MPV Absolute Neuts (auto) Neutrophils % Lymphocytes % Monocytes % Eosinophils % Basophils % Nucleated RBC % Sodium Potassium Chloride Carbon Dioxide Anion Gap BUN Creatinine Est GFR (CKD-EPI)AfAm Est GFR (CKD-EPI)NonAf POC Glucometer 162 Random Glucose Hemoglobin A1c % Lactic Acid Calcium Total Bilirubin AST ALT Alkaline Phosphatase Total Protein Albumin TSH Free T4 Urine Color Yellow Urine Appearance Clear Urine pH 8.5 H Ur Specific [place] 1.014 Urine Protein 3+ H Urine Glucose (UA) Trace Urine Ketones Negative Urine Blood Negative Urine Nitrite Negative Urine Bilirubin Negative Urine Urobilinogen 0.2 Ur Leukocyte Esterase Negative Urine WBC (Auto) 3 Urine RBC (Auto) 21 Urine Casts (Auto) 2 U Epithel Cells (Auto) 11 Urine Bacteria (Auto) 16 Opiates Screen Negative Methadone Screen Negative Barbiturate Screen Negative Phencyclidine Screen Negative Ur Amphetamines Screen Negative MDMA (Ecstasy) Screen Negative Benzodiazepines Screen Negative Cocaine Screen Negative U Marijuana (THC) Screen Negative 02/04/20 02/04/20 02/04/20 08:00 08:00 08:00 WBC 8.8 RBC 3.69 L Hgb 9.4 L Hct 29.2 L D MCV 79.1 L MCH 25.4 L MCHC 32.1 RDW 15.4 Plt Count 235 MPV 8.6 Absolute Neuts (auto) 6.0 Neutrophils % 68.2 Lymphocytes % 22.7 D Monocytes % 8.5 D Eosinophils % 0.4 Basophils % 0.2 Nucleated RBC % 0 Sodium 140 Potassium 4.3 Chloride 108 H Carbon Dioxide 24 Anion Gap 8 BUN 19.6 H Creatinine 1.9 H Est GFR (CKD-EPI)AfAm 45.31 Est GFR (CKD-EPI)NonAf 39.10 POC Glucometer Random Glucose 176 H Hemoglobin A1c % Lactic Acid 2.5 H* Calcium 8.6 Total Bilirubin 0.3 AST 12 L ALT 18 Alkaline Phosphatase 87 Total Protein 6.4 Albumin 3.0 L TSH 3.44 Free T4 0.87 Urine Color Urine Appearance Urine pH Ur Specific [place] Urine Protein Urine Glucose (UA) Urine Ketones Urine Blood Urine Nitrite Urine Bilirubin Urine Urobilinogen Ur Leukocyte Esterase Urine WBC (Auto) Urine RBC (Auto) Urine Casts (Auto) U Epithel Cells (Auto) Urine Bacteria (Auto) Opiates Screen Methadone Screen Barbiturate Screen Phencyclidine Screen Ur Amphetamines Screen MDMA (Ecstasy) Screen Benzodiazepines Screen Cocaine Screen U Marijuana (THC) Screen 02/04/20 08:00 WBC RBC Hgb Hct MCV MCH MCHC RDW Plt Count MPV Absolute Neuts (auto) Neutrophils % Lymphocytes % Monocytes % Eosinophils % Basophils % Nucleated RBC % Sodium Potassium Chloride Carbon Dioxide Anion Gap BUN Creatinine Est GFR (CKD-EPI)AfAm Est GFR (CKD-EPI)NonAf POC Glucometer Random Glucose Hemoglobin A1c % 6.2 Lactic Acid Calcium Total Bilirubin AST ALT Alkaline Phosphatase Total Protein Albumin TSH Free T4 Urine Color Urine Appearance Urine pH Ur Specific [place] Urine Protein Urine Glucose (UA) Urine Ketones Urine Blood Urine Nitrite Urine Bilirubin Urine Urobilinogen Ur Leukocyte Esterase Urine WBC (Auto) Urine RBC (Auto) Urine Casts (Auto) U Epithel Cells (Auto) Urine Bacteria (Auto) Opiates Screen Methadone Screen Barbiturate Screen Phencyclidine Screen Ur Amphetamines Screen MDMA (Ecstasy) Screen Benzodiazepines Screen Cocaine Screen U Marijuana (THC) Screen Active Medications Generic Name Dose Route Start Last Admin Trade Name Freq PRN Reason Stop Dose Admin Acetaminophen 1,000 mg 02/03/20 16:33 02/04/20 10:16 Ofirmev Injection - IVPB 02/04/20 16:33 1,000 mg Q6H PRN Administration PAIN Dextrose/Sodium Chloride 40 meq in 1,000 mls @ 75 mls/hr 02/03/20 20:39 02/03/20 21:24 Dextrose 5%-Normal Saline+40 Meq Kcl - IV Not Given ASDIR LUCY Metoclopramide HCl 10 mg 02/03/20 16:00 02/04/20 10:08 Reglan Injection - IVPUSH 10 mg Q8H LUCY Administration Ondansetron HCl 8 mg 02/03/20 17:09 02/03/20 18:29 Zofran Injection IVPB 8 mg Q8H PRN Administration NAUSEA Pantoprazole Sodium 40 mg 02/04/20 10:00 02/04/20 10:08 Protonix Iv IVPUSH 40 mg DAILY LUCY Administration Polyethylene Glycol 17 gm 02/03/20 22:00 02/04/20 10:10 Miralax (For Daily Use) - PO Not Given BID LUCY Senna 2 tab 02/03/20 22:00 02/03/20 21:25 Senna - PO Not Given HS LUCY Sucralfate 1 gm 02/04/20 14:00 Carafate Oral Suspension - PO QID LUCY ASSESSMENT/PLAN: 54 y/o male with a significant past medical history of NIDDM, HTN, Gastroparesis, Osteomyelitis s/p right BKA (01/2019), recent admissions for Gastroparesis 11/05-11/11, 12/03-12/05, 01/06-01/08, 01/19-01/23 presents to the ED for coffee ground emesis and abdominal pain. LIZA R/o pheochromocytoma HTN Lactic Acidosis NIDDM Osteomyelitis s/p BKA Gastroparesis, multiple episodes S/p R BKA -Suspect LIZA secondary to dehydration in setting of recurrent vomiting. -Patient has been tolerating oral hydration; on clear liquid diet -24-hour urine fractionated metanephrine and catecholamine levels to r/o pheochromocytoma; currently asymptomatic at this time -change IVf to 1/2 NS @ 50cc/hr -Gastroenterology recommendations appreciated. -Avoid nephrotoxic agents -Follow BMP, intake, output Dispo: We will continue to follow the patient. Thank you for this consultative opportunity. Visit type - Emergency Visit Emergency Visit: Yes ED Registration Date: 02/03/20 Care time: The patient presented to the Emergency Department on the above date and was hospitalized for further evaluation of their emergent condition. - New Patient This patient is new to me today: Yes Date on this admission: 02/04/20 - Critical Care Critical Care patient: No ATTENDING PHYSICIAN STATEMENT I saw and evaluated the patient. I reviewed the resident's note and discussed the case with the resident. I agree with the resident's findings and plan as documented. SUBJECTIVE: OBJECTIVE: ASSESSMENT AND PLAN:
--- NOTE | 2020-02-04 13:49 | PN ---
Teaching Attending Note Name of Resident: Leann Singletary (Nephrology) ATTENDING PHYSICIAN STATEMENT I saw and evaluated the patient. I reviewed the resident's note and discussed the case with the resident. I agree with the resident's findings and plan as documented. Renal Pt is a 54 year old male with pmhx of dm, gastroparesis, right bka who presents with vomiting. He denies chest pain or shortness of breath. He denies palpitations or flushing. He says that his bp is usually controlled. pmhx dm gastroporesis htn pshx right bka allergies sesame seeds hydromorphone javi seeds ros nausea family hx non contrib Current Medications Generic Name Dose Route Start Last Admin Trade Name Freq PRN Reason Stop Dose Admin Acetaminophen 1,000 mg 02/03/20 16:33 02/04/20 10:16 Ofirmev Injection - IVPB 02/04/20 16:33 1,000 mg Q6H PRN Administration PAIN Dextrose/Sodium Chloride 40 meq in 1,000 mls @ 75 mls/hr 02/03/20 20:39 02/03/20 21:24 Dextrose 5%-Normal Saline+40 Meq Kcl - IV Not Given ASDIR LUCY Metoclopramide HCl 10 mg 02/03/20 16:00 02/04/20 10:08 Reglan Injection - IVPUSH 10 mg Q8H LUCY Administration Ondansetron HCl 8 mg 02/03/20 17:09 02/03/20 18:29 Zofran Injection IVPB 8 mg Q8H PRN Administration NAUSEA Pantoprazole Sodium 40 mg 02/04/20 10:00 02/04/20 10:08 Protonix Iv IVPUSH 40 mg DAILY LUCY Administration Polyethylene Glycol 17 gm 02/03/20 22:00 02/04/20 10:10 Miralax (For Daily Use) - PO Not Given BID LUCY Senna 2 tab 02/03/20 22:00 02/03/20 21:25 Senna - PO Not Given HS LUCY Sucralfate 1 gm 02/04/20 14:00 Carafate Oral Suspension - PO QID LUCY Laboratory Tests 01/23/20 02/03/20 02/03/20 07:30 04:00 04:00 Hgb 11.7 Sodium Potassium Creatinine 1.6 H 1.5 H 02/04/20 02/04/20 08:00 08:00 Hgb 9.4 L Sodium 140 Potassium 4.3 Creatinine 1.9 H Last Vital Signs Temp Pulse Resp BP Pulse Ox 98.5 F 71 20 145/75 98 02/04/20 13:32 02/04/20 13:32 02/04/20 13:32 02/04/20 13:32 02/04/20 13:32 cardio s1s2 pulm clear gi soft ext right bka neuro awake and alert Impression: Acute kidney injury Hypertension Gastroparesis Diabetes mellitus II History of ostemyelitis S/P right below the knee amputation Plan - can change fludis to 1/2 ns - pt on clears now - gi input appreciates - follow 24 hours urine for metanephrines - monitor bp - margaux likely from pre-renal disease
[2020-02-04] MEDS: SUCRALFATE 1 GM/10 ML UNIT DOSE CUPS PO SCH ×3 (14:30→21:03)
--- NOTE | 2020-02-04 15:03 | CONS ---
PULMONARY CONSULTATION DATE OF CONSULTATION: 02/04/2020 REFERRING PHYSICIAN: Rosalind Giles MD HISTORY OF PRESENT ILLNESS: Patient is a 54-year-old male with a past medical history of hypertension, noninsulin-dependent diabetes mellitus, gastroparesis, osteomyelitis, status post right BKA in January 2019, nonsmoker recently admitted to [facility] on November 05 to November 11 and then December 03 and January 06 to January 08, and January 19 to January 23 secondary to gastropareses. Patient presented to the emergency room this current admission with coffee-ground emesis, nausea and abdominal pain. He denied any chest pain or shortness of breath. Denied any chronic cough. On admission the patient underwent a CT scan of the chest which revealed evidence of a right lower lobe nodule 1.1 cm. Patient denies any previous CAT scans. He denies any history of occupational exposures to chemicals or fumes. PAST MEDICAL HISTORY: Again includes diabetic gastropareses, diabetes mellitus, history of right BKA secondary to osteomyelitis, hypertension. REVIEW OF SYSTEMS: Positive nausea. Positive vomiting. No chest pain. No shortness of breath. No cough. No hemoptysis. CURRENT MEDICATIONS: Include Zofran, IV fluids, MiraLAX, senna, Reglan, sucralfate, pantoprazole. PHYSICAL EXAMINATION: General: Patient is a well-developed, well-nourished male awake, alert in no acute distress. Vital Signs: He is afebrile. Blood pressure 145/75, respiratory rate is 20. O2 saturation is 98 HEENT: Normocephalic, atraumatic. Neck: Supple. Heart: Regular with S1, S2. Chest: Clear. Abdomen: Soft. Bowel sounds are present. Extremities: Status post right BKA. LABORATORIES: BUN is 19, creatinine 1.9. Lactate level is 2.5. WBC is 8, hemoglobin 9.4, hematocrit 29.2 with a platelet count of 235,000. Chest CT as noted earlier. IMPRESSION: 1. Right lower lobe nodule, etiology to be determined, possible inflammatory, cannot exclude early malignancy. 2. Coffee-ground emesis. 3. Diabetic gastroparesis. 4. History of right below-knee amputation secondary to osteomyelitis. 5. Diabetes. 6. Hypertension. 7. Acute kidney injury. 8. Elevated lactate level. PLAN: GI workup in progress. Outpatient PET scan. IV fluids. Monitor electrolytes, renal function, hemoglobin and hematocrit and trend lactate level. BRITTANEY CHRISTINA M.D. ADITYA/[id number]
[2020-02-04] MEDS: SENNOSIDES 8.6MG TABLET (FP) PO SCH (21:02)
[2020-02-04] MEDS: D5-NS + 40 MEQ KCL - 40 MEQ/1,000 ML INFUS.BAG IV SCH (21:04)
[2020-02-05] MEDS: METOCLOPRAMIDE HCL INJECTION 10 MG/2 ML VIAL IVPUSH SCH ×2 (01:19→09:53)
[2020-02-05 08:08] LABS: BASO % 0.6 % (0-2.0); EOS % 2.2 % (0-4.5); HEMATOCRIT 28.7 % (35.4-49); HEMOGLOBIN 9.2 GM/dL (11.7-16.9); LYMPH % 31.5 % (8-40); MCH 25.3 pg (25.7-33.7); MCHC 32.2 g/dl (32.0-35.9); MEAN CELL VOLUME 78.6 fl (80-96); MEAN PLT VOLUME 8.5 fl (7.5-11.1); MONO % 8.4 % (3.8-10.2); NEUT % 57.3 % (42.8-82.8); PLATELET COUNT 215 K/MM3 (134-434); RBC 3.66 M/mm3 (4.00-5.60); RDW 15.3 % (11.9-15.9); WHITE BLOOD COUNT 7.5 K/mm3 (4.0-10.0)
[2020-02-05 08:38] LABS: POTASSIUM 4.1 mmol/L (3.5-5.1)
[2020-02-05 08:41] LABS: CALCIUM 8.7 mg/dL (8.5-10.1)
[2020-02-05 08:42] LABS: ALBUMIN 3.1 g/dl (3.4-5.0); BLOOD UREA NITROGEN 11.7 mg/dL (7-18)
[2020-02-05 08:45] LABS: CREATININE 1.4 mg/dL (0.55-1.3)
[2020-02-05 08:46] LABS: BILIRUBIN,TOTAL 0.4 mg/dL (0.2-1); TOT PROT 6.6 g/dl (6.4-8.2)
[2020-02-05] MEDS: PANTOPRAZOLE SODIUM 40 MG VIAL IVPUSH SCH (09:53)
[2020-02-05] MEDS: POLYETHYLENE GLYCOL 3350 119 GM BTL PO SCH (09:53)
--- NOTE | 2020-02-05 11:28 | PN ---
Progress Note, Physician Chief Complaint: Coffee ground emesis Intractable nausea/vomiting History of Present Illness: This is a 54 y/o male with a significant past medical history of NIDDM, HTN, Gastroparesis, Osteomyelitis s/p right BKA (01/2019), recent admissions for Gastroparesis 11/05-11/11, 12/03-12/05, 01/06-01/08, 01/19-01/23 Who presents to the ED for coffee ground emesis and abdominal pain. Patient reports having multiple episodes of bile and dark blood in the emesis and associated abdominal pain. He reports having similar episodes in the past. The patient denies taking any opiates for pain control. Patient denies fever, chills, cough, SOB, WHITLOCK, dizziness, CP, palpitations, diarrhea, constipation, dysuria. Patient denies recent sick contacts or travel. Last EGD from [facility] as following: Gastrointestinal Endoscopy and Bronchoscopy Suites Patient Name: Daniele Laird Procedure Date: 10/13/2019 8:03 AM Date of : 1965 Attending MD: Anaya Daniel MD Instrument Name: [id number] EGD Procedure: Upper GI endoscopy Indications: Hematemesis Providers: Anaya Daniel MD, Sima Okeefe RN, Mila Oakley, Sand Control Worker Medicines: Monitored Anesthesia Care Complication: No immediate complications. Procedure: After obtaining informed consent, the endoscope was passed under direct vision. Throughout the procedure, the patient's blood pressure, pulse, and oxygen saturations were monitored continuously. The Endoscope was introduced through the mouth, and advanced to the second part of duodenum. The upper GI endoscopy was accomplished without difficulty. The patient tolerated the procedure well. Findings: The examined esophagus was normal. Diffuse moderately erythematous mucosa without bleeding was found in the gastric antrum as well as fundus. Biopsies were taken with a cold forceps for histology. Estimated blood loss: none. The examined duodenum was normal. Total Procedure Duration: 0 hours 3 minutes 41 seconds Impression: - Normal esophagus. - Erythematous mucosa in the antrum. Biopsied. No puja jones tear or ulcer noted on this exam. - Normal examined duodenum. Recommendation: - [facility]. - Advance diet as tolerated. - Continue present medications. - outpt colonoscopy - Await pathology results. Seen by GI last evening with similar plan as previous admission + pheochromocytoma workup. Endocrine was called to evaluate. Feels much better, no N/V yesterday all day and today Wants to eat regular food Denies any abd pain 24 hr urine sent to labs, turn around time 7-10 days - Current Medication List Current Medications: Active Medications Dextrose/Sodium Chloride (Dextrose 5%-Normal Saline+40 Meq Kcl -) 40 meq in 1,000 mls @ 75 mls/hr IV ASDIR [facility] Last Admin: 02/04/20 21:04 Dose: Not Given Documented by: Metoclopramide HCl (Reglan Injection -) 10 mg IVPUSH Q8H [facility] Last Admin: 02/05/20 09:53 Dose: 10 mg Documented by: Ondansetron HCl (Zofran Injection) 8 mg IVPB Q8H PRN PRN Reason: NAUSEA Last Admin: 02/03/20 18:29 Dose: 8 mg Documented by: Pantoprazole Sodium (Protonix Iv) 40 mg IVPUSH DAILY [facility] Last Admin: 02/05/20 09:53 Dose: 40 mg Documented by: Polyethylene Glycol (Miralax (For Daily Use) -) 17 gm PO BID [facility] Last Admin: 02/05/20 09:53 Dose: Not Given Documented by: Senna (Senna -) 2 tab PO HS [facility] Last Admin: 02/04/20 21:02 Dose: 2 tab Documented by: - Objective Vital Signs: Vital Signs Temperature 98.2 F 02/05/20 06:00 Pulse Rate 67 02/05/20 06:00 Respiratory Rate 18 02/05/20 06:00 Blood Pressure 159/93 02/05/20 06:00 O2 Sat by Pulse Oximetry (%) 99 02/05/20 06:00 Constitutional: Yes: Well Nourished, Calm Cardiovascular: Yes: Regular Rate and Rhythm Respiratory: Yes: Regular, CTA Bilaterally Gastrointestinal: Yes: Normal Bowel Sounds, Soft Genitourinary: Yes: WNL Musculoskeletal: Yes: WNL Extremities: Yes: Amputation (RLE) Edema: No Peripheral Pulses WNL: Yes Neurological: Yes: Alert, Oriented Psychiatric: Yes: Alert, Oriented Labs: CBC, BMP 02/05/20 07:24 02/05/20 07:24 INR, PTT INR 0.93 (0.83-1.09) 02/03/20 04:00 Problem List - Problems (1) Coffee ground emesis Assessment/Plan: -GI consult -Reglan 10 mg IV Q8H -Advance diet to diabetic sodium -Zofran PRN Problems reviewed: Yes Code(s): K92.0 - HEMATEMESIS (2) Gastroparesis Assessment/Plan: -Reglan 10 mg po TID AC -Miralax daily Problems reviewed: Yes Code(s): K31.84 - GASTROPARESIS (3) Diabetes Assessment/Plan: -A1c at 6.2 -BGM AC HS -ISS -D/C IVF -Continue metformin o/p Problems reviewed: Yes Code(s): E11.9 - TYPE 2 DIABETES MELLITUS WITHOUT COMPLICATIONS Qualifiers: Diabetes mellitus type: type 2 (4) Cyclic vomiting syndrome Assessment/Plan: -r/o pheochromocytoma -Endocrine consult -Await 24 hr urine for VMA, metanephrine, fract [place], 5 HIAA, VMA + Serum serotonin and chromogranin A. -Pt has colonoscopy scheduled with Dr Joe on 02/21/20 Problems reviewed: Yes Code(s): R11.15 - CYCLICAL VOMITING SYNDROME UNRELATED TO MIGRAINE (5) Pulmonary nodule Assessment/Plan: -CT chest RLL 11 mm nodule -PET scan outpatient -Pulmonary consult Problems reviewed: Yes Code(s): R91.1 - SOLITARY PULMONARY NODULE (6) Constipation Assessment/Plan: -Miralax daily -Encouraged pt to have BM daily Problems reviewed: Yes Code(s): K59.00 - CONSTIPATION, UNSPECIFIED Assessment/Plan See problem list
[2020-02-05] MEDS ORDERED: SODIUM CHLORIDE 0.45% 1,000 ML IV SCH (12:00)
--- NOTE | 2020-02-05 12:45 | PN ---
Progress Note (short form) - Note Progress Note: Still with some N/V. No CP or SOB. No acute events overnight. Intake & Output 02/02/20 02/03/20 02/04/20 02/05/20 23:59 23:59 23:59 23:59 Intake Total 610 2050 Output Total 800 1450 800 Balance -190 600 -800 Weight 225 lb 3 oz Last Vital Signs Temp Pulse Resp BP Pulse Ox 98.2 F 67 18 159/93 99 02/05/20 06:00 02/05/20 06:00 02/05/20 09:00 02/05/20 06:00 02/05/20 09:00 Active Medications Sodium Chloride (1/2 Normal Saline) 1,000 mls @ 50 mls/hr IV ASDIR [facility] Stop: 02/06/20 11:58 Metoclopramide HCl (Reglan Injection -) 10 mg IVPUSH Q8H [facility] Last Admin: 02/05/20 09:53 Dose: 10 mg Documented by: Ondansetron HCl (Zofran Injection) 8 mg IVPB Q8H PRN PRN Reason: NAUSEA Last Admin: 02/03/20 18:29 Dose: 8 mg Documented by: Pantoprazole Sodium (Protonix Iv) 40 mg IVPUSH DAILY [facility] Last Admin: 02/05/20 09:53 Dose: 40 mg Documented by: Polyethylene Glycol (Miralax (For Daily Use) -) 17 gm PO BID [facility] Last Admin: 02/05/20 09:53 Dose: Not Given Documented by: Senna (Senna -) 2 tab PO HS [facility] Last Admin: 02/04/20 21:02 Dose: 2 tab Documented by: Constitutional: Yes: NAD Cardiovascular: Yes: Regular Rate and Rhythm Respiratory: Yes: CTA Bilaterally Gastrointestinal: Yes: Normal Bowel Sounds, Soft Genitourinary: Yes: WNL Musculoskeletal: Yes: WNL Extremities: Yes: Amputation (RLE) Edema: No Peripheral Pulses WNL: Yes Neurological: Yes: Alert, Oriented Psychiatric: Yes: Alert, Oriented Labs: Laboratory Results - last 24 hr 02/03/20 02/05/20 02/05/20 15:12 07:24 07:24 WBC 7.5 RBC 3.66 L Hgb 9.2 L Hct 28.7 L MCV 78.6 L MCH 25.3 L MCHC 32.2 RDW 15.3 Plt Count 215 MPV 8.5 Absolute Neuts (auto) 4.3 Neutrophils % 57.3 Lymphocytes % 31.5 D Monocytes % 8.4 Eosinophils % 2.2 D Basophils % 0.6 Nucleated RBC % 0 Sodium 138 Potassium 4.1 Chloride 109 H Carbon Dioxide 23 Anion Gap 6 L BUN 11.7 Creatinine 1.4 H Est GFR (CKD-EPI)AfAm 65.55 Est GFR (CKD-EPI)NonAf 56.56 Random Glucose 134 H Lactic Acid Calcium 8.7 Total Bilirubin 0.4 AST 32 ALT 41 Alkaline Phosphatase 91 Total Protein 6.6 Albumin 3.1 L Chromium COVID-19 (MEG) Not detected 02/05/20 02/05/20 08:00 10:06 WBC RBC Hgb Hct MCV MCH MCHC RDW Plt Count MPV Absolute Neuts (auto) Neutrophils % Lymphocytes % Monocytes % Eosinophils % Basophils % Nucleated RBC % Sodium Potassium Chloride Carbon Dioxide Anion Gap BUN Creatinine Est GFR (CKD-EPI)AfAm Est GFR (CKD-EPI)NonAf Random Glucose Lactic Acid 1.7 Calcium Total Bilirubin AST ALT Alkaline Phosphatase Total Protein Albumin Chromium Cancelled COVID-19 (MEG) Problem List - Problems (1) Coffee ground emesis Code(s): K92.0 - HEMATEMESIS (2) Gastroparesis Code(s): K31.84 - GASTROPARESIS (3) Pulmonary nodule Code(s): R91.1 - SOLITARY PULMONARY NODULE (4) LIZA (acute kidney injury) Code(s): N17.9 - ACUTE KIDNEY FAILURE, UNSPECIFIED (5) Diabetes Code(s): E11.9 - TYPE 2 DIABETES MELLITUS WITHOUT COMPLICATIONS Qualifiers: Diabetes mellitus type: type 2 (6) Diabetic gastroparesis Code(s): 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 (7) Elevated lactic acid level Code(s): R79.89 - OTHER SPECIFIED ABNORMAL FINDINGS OF BLOOD CHEMISTRY (8) HTN (hypertension) Code(s): I10 - ESSENTIAL (PRIMARY) HYPERTENSION (9) Hematemesis Code(s): K92.0 - HEMATEMESIS (10) History of right below knee amputation Code(s): Z89.511 - ACQUIRED ABSENCE OF RIGHT LEG BELOW KNEE (11) Microcytic anemia Code(s): D50.9 - IRON DEFICIENCY ANEMIA, UNSPECIFIED IMP RLL NODULE COFFEE GROUND EMESIS GASTROPARESIS S/P R BKA SECONDARY TO OSTEO DM HTN LIZA ELEVATED LACTATE LEVEL PLAN GI W/U OUTPATIENT PET IVF NO SMOKING MONITOR LYTES,RENAL FUNCTION,H+H Dr Mckeon
[2020-02-05 14:03] VITALS: BP 150/80; PULSE 89; TEMP 97.4
[2020-02-05] MEDS ORDERED: METOCLOPRAMIDE HCL 10 MG TABLET (FP) PO PRN (14:37)
--- NOTE | 2020-02-05 14:37 | PN.GI ---
GI Progress Note Subjective: No acute events Tolerating PO No vomiting / melena Prior EGD report noted - Objective Vital Signs: Vital Signs Temperature 97.4 F L 02/05/20 14:00 Pulse Rate 89 02/05/20 14:00 Respiratory Rate 20 02/05/20 14:00 Blood Pressure 150/80 02/05/20 14:00 O2 Sat by Pulse Oximetry (%) 99 02/05/20 14:00 Constitutional: Calm Eyes: No: Sclera Icterus Cardiovascular: Yes: Regular Rate and Rhythm Respiratory: Yes: CTA Bilaterally Gastrointestinal Inspection: No: Distention ...Auscultate: Yes: Normoactive Bowel Sounds ...Palpate: Yes: Soft. No: Hepatomegaly, Splenomegaly, Tenderness Extremities: Yes: Other (Right leg prosthesis) Neurological: Yes: Alert Labs: CBC, BMP 02/05/20 07:24 02/05/20 07:24 INR, PTT INR 0.93 (0.83-1.09) 02/03/20 04:00 Problem List - Problems (1) Coffee ground emesis Assessment/Plan: No further vomiting Being evaluated by endocrine Tolerating PO Stopped zofran Change to Reglan 5mg PO Q8H PRN Code(s): K92.0 - HEMATEMESIS
--- NOTE | 2020-02-05 15:19 | PN ---
Progress Note, Physician History of Present Illness: Pt seen and examined at bedside. He is awake and alert. he feels nausea is improved. - Objective Vital Signs: Vital Signs Temperature 97.4 F L 02/05/20 14:00 Pulse Rate 89 02/05/20 14:00 Respiratory Rate 20 02/05/20 14:00 Blood Pressure 150/80 02/05/20 14:00 O2 Sat by Pulse Oximetry (%) 99 02/05/20 14:00 Constitutional: Yes: Calm Eyes: Yes: Conjunctiva Clear Cardiovascular: Yes: S1, S2 Respiratory: Yes: CTA Bilaterally Gastrointestinal: Yes: Normal Bowel Sounds, Soft Genitourinary: Yes: WNL Edema: No Neurological: Yes: Oriented Psychiatric: Yes: Oriented Labs: CBC, BMP 02/05/20 07:24 02/05/20 07:24 INR, PTT INR 0.93 (0.83-1.09) 02/03/20 04:00 Assessment/Plan Impression: Acute kidney injury Hypertension Gastroparesis Diabetes mellitus II History of ostemyelitis S/P right below the knee amputation Plan - renal function improved - follow metanephrines - pt tolerating diet - pt on clears now - monitor bp - margaux likely from pre-renal disease
== END 2020-02-05 15:05 | disposition home or self-care (01) | DRG 74 ==
LOC: JER 02:01 → JERBED 06:11 → J7W 15:52
PROVIDERS: ADMIT Family Medicine; ATTEND Family Medicine
DX: E11.43 Type 2 diabetes mellitus with diabetic autonomic (poly)neuropathy (principal); K92.0 Hematemesis; E87.2 Acidosis; N17.9 Acute kidney failure, unspecified; R91.1 Solitary pulmonary nodule; Z89.611 Acquired absence of right leg above knee; K31.84 Gastroparesis; I10 Essential (primary) hypertension
CPT/HCPCS: 36415; 71045-TC-FY; 71250-TC; 74176-TC; 80053; 80307; 81003; 82384; 82550; 82553; 82570; 82962; 83036; 83497; 83605; 83690; 83735; 83835; 84100; 84260; 84439; 84443; 84484; 84585; 85025; 85610; 85730; 86316; 86850; 86900; 86901; 87086; 93005; 93010; 99285-25; C9803; J0131; U0003